=== PATIENT | male | born 1955 | race Caucasian/White ===

== ENCOUNTER → 2017-11-03 10:23 | Outpatient (CLI) | payer MEDICARE, OTHER, SELFPAY ==
[2017-11-03 11:22] LABS: Amphetamine Urine VISTA NEGATIVE (<1000 ng/mL); Barbiturate Urine VISTA NEGATIVE (< 200 ng/mL); Benzodiazepine Urine VISTA NEGATIVE (< 200 ng/mL); Cocaine Urine VISTA NEGATIVE (< 300 ng/mL); Ecstacy Urine VISTA NEGATIVE (< 500 ng/mL); Methadone Urine VISTA NEGATIVE (< 300 ng/mL); PCP Urine VISTA NEGATIVE (< 25 ng/mL); THC Urine VISTA NEGATIVE (< 50 ng/mL); Vista UDS pH Range 6
== END ==
PROVIDERS: Referring Provider Anesthesiology Pain Medicine; Visit Provider Anesthesiology Pain Medicine
DX: F11.20 Opioid dependence, uncomplicated (principal)
CPT/HCPCS: 80307

== ENCOUNTER → 2018-10-24 11:19 | Outpatient (CLI) | payer MEDICARE, OTHER, SELFPAY ==
[2018-10-24 13:32] LABS: Amphetamine Urine VISTA NEGATIVE (<1000 ng/mL); Barbiturate Urine VISTA NEGATIVE (< 200 ng/mL); Benzodiazepine Urine VISTA NEGATIVE (< 200 ng/mL); Cocaine Urine VISTA NEGATIVE (< 300 ng/mL); Ecstacy Urine VISTA NEGATIVE (< 500 ng/mL); Methadone Urine VISTA NEGATIVE (< 300 ng/mL); PCP Urine VISTA NEGATIVE (< 25 ng/mL); THC Urine VISTA NEGATIVE (< 50 ng/mL); Vista UDS pH Range 6
== END ==
PROVIDERS: Referring Provider Anesthesiology Pain Medicine; Visit Provider Anesthesiology Pain Medicine
DX: F11.20 Opioid dependence, uncomplicated (principal)
CPT/HCPCS: 80307

== ENCOUNTER → 2019-08-01 13:44 | Outpatient (CLI) | payer MEDICARE, OTHER, SELFPAY ==
[2019-08-01 14:53] LABS: Amphetamine Urine VISTA NEGATIVE (<1000 ng/mL); Barbiturate Urine VISTA NEGATIVE (< 200 ng/mL); Benzodiazepine Urine VISTA NEGATIVE (< 200 ng/mL); Cocaine Urine VISTA NEGATIVE (< 300 ng/mL); Ecstacy Urine VISTA NEGATIVE (< 500 ng/mL); Methadone Urine VISTA NEGATIVE (< 300 ng/mL); PCP Urine VISTA NEGATIVE (< 25 ng/mL); THC Urine VISTA NEGATIVE (< 50 ng/mL); Vista UDS pH Range 7
== END ==
PROVIDERS: Referring Provider Anesthesiology Pain Medicine; Visit Provider Anesthesiology Pain Medicine
DX: F11.20 Opioid dependence, uncomplicated (principal)
CPT/HCPCS: 80307

== ENCOUNTER → 2020-03-12 10:05 | Outpatient (CLI) | payer MEDICARE, OTHER, SELFPAY ==
[2020-03-12 11:44] LABS: Amphetamine Urine VISTA NEGATIVE (<1000 ng/mL); Barbiturate Urine VISTA NEGATIVE (< 200 ng/mL); Benzodiazepine Urine VISTA NEGATIVE (< 200 ng/mL); Cocaine Urine VISTA NEGATIVE (< 300 ng/mL); Ecstacy Urine VISTA NEGATIVE (< 500 ng/mL); Methadone Urine VISTA NEGATIVE (< 300 ng/mL); PCP Urine VISTA NEGATIVE (< 25 ng/mL); THC Urine VISTA NEGATIVE (< 50 ng/mL); Vista UDS pH Range 5
== END ==
PROVIDERS: Referring Provider Anesthesiology Pain Medicine; Visit Provider Anesthesiology Pain Medicine
DX: F11.20 Opioid dependence, uncomplicated (principal)
CPT/HCPCS: 80307

== ENCOUNTER → 2020-10-22 09:50 | Outpatient (CLI) | payer MEDICARE, OTHER, SELFPAY ==
[2020-10-22 11:20] LABS: Amphetamine Urine VISTA NEGATIVE (<1000 ng/mL); Barbiturate Urine VISTA NEGATIVE (< 200 ng/mL); Benzodiazepine Urine VISTA NEGATIVE (< 200 ng/mL); Cocaine Urine VISTA NEGATIVE (< 300 ng/mL); Ecstacy Urine VISTA NEGATIVE (< 500 ng/mL); Methadone Urine VISTA NEGATIVE (< 300 ng/mL); PCP Urine VISTA NEGATIVE (< 25 ng/mL); THC Urine VISTA NEGATIVE (< 50 ng/mL); Vista UDS pH Range 7
== END ==
PROVIDERS: Referring Provider Anesthesiology Pain Medicine; Visit Provider Anesthesiology Pain Medicine
DX: F11.20 Opioid dependence, uncomplicated (principal)
CPT/HCPCS: 80307

== ENCOUNTER 2021-04-08 12:23 | Outpatient (CLI) | payer MEDICARE, OTHER, SELFPAY ==
[2021-04-08 13:34] LABS: Amphetamine Urine VISTA NEGATIVE (<1000 ng/mL); Barbiturate Urine VISTA NEGATIVE (< 200 ng/mL); Benzodiazepine Urine VISTA NEGATIVE (< 200 ng/mL); Cocaine Urine VISTA NEGATIVE (< 300 ng/mL); Ecstacy Urine VISTA NEGATIVE (< 500 ng/mL); Methadone Urine VISTA NEGATIVE (< 300 ng/mL); PCP Urine VISTA NEGATIVE (< 25 ng/mL); THC Urine VISTA NEGATIVE (< 50 ng/mL); Vista UDS pH Range 6
== END 2021-04-08 23:59 | disposition home or self-care (01) ==
PROVIDERS: PCP Family Medicine; Referring Provider Anesthesiology Pain Medicine; Visit Provider Anesthesiology Pain Medicine
DX: F11.20 Opioid dependence, uncomplicated (principal)
CPT/HCPCS: 80307

== ENCOUNTER → 2022-01-13 | Outpatient (CLI) | payer MEDICARE, OTHER, SELFPAY ==
[2022-01-13 11:43] LABS: Amphetamine Urine VISTA NEGATIVE (<1000 ng/mL); Barbiturate Urine VISTA NEGATIVE (< 200 ng/mL); Benzodiazepine Urine VISTA NEGATIVE (< 200 ng/mL); Cocaine Urine VISTA NEGATIVE (< 300 ng/mL); Ecstacy Urine VISTA NEGATIVE (< 500 ng/mL); Methadone Urine VISTA NEGATIVE (< 300 ng/mL); PCP Urine VISTA NEGATIVE (< 25 ng/mL); THC Urine VISTA NEGATIVE (< 50 ng/mL); Vista UDS pH Range 7
== END | disposition home or self-care (01) ==
PROVIDERS: PCP Family Medicine; Visit Provider Anesthesiology Pain Medicine
DX: F11.20 Opioid dependence, uncomplicated (principal)
CPT/HCPCS: 80307

== ENCOUNTER → 2022-12-02 | Outpatient (CLI) | payer MEDICARE, OTHER, SELFPAY ==
[2022-12-02 11:26] LABS: Amphetamine Urine VISTA NEGATIVE (<1000 ng/mL); Barbiturate Urine VISTA NEGATIVE (< 200 ng/mL); Benzodiazepine Urine VISTA NEGATIVE (< 200 ng/mL); Cocaine Urine VISTA NEGATIVE (< 300 ng/mL); Ecstacy Urine VISTA NEGATIVE (< 500 ng/mL); Methadone Urine VISTA NEGATIVE (< 300 ng/mL); PCP Urine VISTA NEGATIVE (< 25 ng/mL); THC Urine VISTA NEGATIVE (< 50 ng/mL); Vista UDS pH Range 5
== END | disposition home or self-care (01) ==
LOC: LAB 10:07
PROVIDERS: PCP Family Medicine; Referring Provider Anesthesiology Pain Medicine; Visit Provider Anesthesiology Pain Medicine
DX: F11.20 Opioid dependence, uncomplicated (principal)
CPT/HCPCS: 80307

== ENCOUNTER → 2023-04-19 | Outpatient (CLI) | payer MEDICARE, OTHER, SELFPAY ==
[2023-04-19 10:59] LABS: Amphetamine Urine VISTA NEGATIVE (<1000 ng/mL); Barbiturate Urine VISTA NEGATIVE (< 200 ng/mL); Benzodiazepine Urine VISTA NEGATIVE (< 200 ng/mL); Cocaine Urine VISTA NEGATIVE (< 300 ng/mL); Ecstacy Urine VISTA NEGATIVE (< 500 ng/mL); Methadone Urine VISTA NEGATIVE (< 300 ng/mL); PCP Urine VISTA NEGATIVE (< 25 ng/mL); THC Urine VISTA NEGATIVE (< 50 ng/mL); Vista UDS pH Range 5
== END | disposition home or self-care (01) ==
PROVIDERS: Referring Provider Anesthesiology Pain Medicine; Visit Provider Anesthesiology Pain Medicine
DX: F11.20 Opioid dependence, uncomplicated (principal)
CPT/HCPCS: 80307

== ENCOUNTER → 2024-05-07 | Outpatient (CLI) | payer MEDICARE, OTHER, SELFPAY | END | disposition home or self-care (01) | LOC: LAB 10:03 | PROVIDERS: Referring Provider Anesthesiology Pain Medicine; Visit Provider Anesthesiology Pain Medicine | DX: F11.20 Opioid dependence, uncomplicated (principal) ==

== ENCOUNTER → 2024-10-09 | Outpatient (CLI) | payer MEDICARE, OTHER, SELFPAY | END | disposition home or self-care (01) | PROVIDERS: PCP Nurse Practitioner Family; Referring Provider Nurse Practitioner Acute Care; Visit Provider Nurse Practitioner Acute Care | DX: G47.10 Hypersomnia, unspecified (principal); G47.31 Primary central sleep apnea | CPT/HCPCS: 95810; 95811 ==

== ENCOUNTER → 2024-11-07 | Outpatient (CLI) | payer MEDICARE, OTHER, SELFPAY ==
--- NOTE | 2024-11-07 14:23 | ECHOCS_ITS ---
Reason For Study Reason For Study: DYSPNEA/SOB Procedure This was a 2D Doppler, Color Flow transthoracic echocardiogram. The study was technically difficult. Due to body habitus. Contrast injection was performed. Exam performed in department. Left Ventricle Normal LV size. Left ventricular systolic function is normal. The left ventricular ejection fraction is 65 %. Stage 2 diastolic dysfunction. No regional wall motion abnormalities noted. Right Ventricle Normal RV size. Normal systolic function. Atria The left atrium is mildly enlarged. Normal right atrium. Mitral Valve Normal mitral valve. Tricuspid Valve Normal tricuspid valve. Aortic Valve Trisinus/trileaflet aortic valve. Great Vessels Normal aortic root. The pulmonary artery is normal size. Inferior vena cava collapse with respiration. Pericardium/Pleural No pericardial effusion. Medication 22 gauge I.V. with prn adaptor inserted into right arm. Diluted definity 3.0ml given slow IV push to enhance endocardial definition. MMode/2D Measurements & Calculations LVIDd: 5.1 cm IVSd: 0.97 cm LAV(MOD- bp): 70.4 ml LVIDs: 3.3 cm LVPWd: 0.84 cm LAV(MOD- bp) Indexed: 31.3 ml/m2 FS: 35.3 % LAV(MOD- sp2): 54.3 ml LAV(MOD- sp4): 73.7 ml SV(MOD- sp4): 70.6 ml LVAd ap4: 33.3 cm2 LVAd ap2: 21.8 cm2 LVLd ap4: 8.8 cm LVLd ap2: 7.8 cm SI(MOD- sp4): 31.4 ml/m2 EDV(MOD-sp4): 106.5 ml EDV(MOD-sp2): 49.8 ml EDV(sp4-el): 107.3 ml EDV(sp2-el): 51.4 ml LVAs ap4: 18.0 cm2 LVAs ap2: 10.8 cm2 LVLs ap4: 7.4 cm LVLs ap2: 6.2 cm ESV(MOD-sp4): 35.8 ml ESV(MOD-sp2): 16.2 ml ESV(sp4-el): 37.1 ml ESV(sp2-el): 15.9 ml EF(MOD-sp4): 66.3 % EF(MOD-sp2): 67.4 % EF(sp4-el): 65.4 % SV(MOD-sp2): 33.5 ml SV(sp4-el): 70.2 ml LA A4 area: 22.2 cm2 SI(MOD-sp2): 14.9 ml/m2 LA dimension(2D): 4.6 cm RA A4 area: 13.9 cm2 Time Measurements MV dec time: 0.20 sec Doppler Measurements & Calculations MV E max toño: 78.5 cm/sec Lat Peak E' Toño: 14.3 cm/sec Med Peak E' Toño: 9.0 cm/sec MV A max toño: 57.0 cm/sec E/E' lat: 5.5 E/E' med: 8.7 MV E/A: 1.4 MV V2 max: 86.8 cm/sec MV P1/2t max toño: 83.8 cm/sec Ao V2 max: 86.7 cm/sec MV max P.0 mmHg MV P1/2t: 71.9 msec Ao max P.0 mmHg MV V2 mean: 59.2 cm/sec MV dec slope: 341.5 cm/sec2 Ao V2 mean: 58.2 cm/sec MV mean P.5 mmHg Ao mean P.5 mmHg MV V2 VTI: 21.1 cm MVA(P1/2t): 3.1 cm2 Ao V2 VTI: 13.7 cm AV (velocity ratio): 0.91 LV V1 max: 72.7 cm/sec PA V2 max: 106.6 cm/sec LV V1 max P.1 mmHg LV V1 mean P.1 mmHg LV V1 mean: 49.5 cm/sec LV V1 VTI: 12.5 cm ECHO/Echo Complete W/ Contrast Interpretation Summary Normal LV size. Left ventricular systolic function is normal. The left ventricular ejection fraction is 65 %. Stage 2 diastolic dysfunction. Contrast injection was performed. Ordering Physician: Fara Lozoya Referring Physician: Urvashi Posada Performed By: Lyn Peralta RDCS, RVT
== END | disposition home or self-care (01) ==
LOC: CVS 14:21
PROVIDERS: PCP Nurse Practitioner Family; Referring Provider Nurse Practitioner Acute Care; Visit Provider Nurse Practitioner Acute Care
DX: R06.02 Shortness of breath (principal)
CPT/HCPCS: 93306; Q9957; A4216; C8929

== ENCOUNTER → 2024-12-31 | Outpatient (CLI) | payer MEDICARE, OTHER, SELFPAY ==
[2024-12-31 09:27] LABS: Barbiturate Urine NEGATIVE (< 200 ng/mL); Benzodiazepine Urine NEGATIVE (< 200 ng/mL); PCP Urine NEGATIVE (< 25 ng/mL); THC Urine NEGATIVE (< 50 ng/mL)
== END | disposition home or self-care (01) ==
PROVIDERS: PCP Nurse Practitioner Family; Referring Provider Anesthesiology Pain Medicine; Visit Provider Anesthesiology Pain Medicine
DX: F11.20 Opioid dependence, uncomplicated (principal)
CPT/HCPCS: 80307

== ENCOUNTER → 2025-01-02 | Outpatient (CLI) | payer MEDICARE, OTHER, SELFPAY ==
--- OUTSIDE RECORDS SUMMARY | 2025-01-02 19:58 | XMS RPT_ITS | CCD ---
Author Organization [facility] [employer] Care Team Providers Care 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 Name Role Phone Chopra, Mu R Unavailable Unavailable Chopra, Mu R Unavailable Unavailable Provider, None Unavailable Unavailable Chopra, Mu R Unavailable Unavailable Chopra, Mu R Unavailable Unavailable Chopra, Mu R Unavailable Unavailable Provider, None Unavailable Unavailable Chopra, Mu R Unavailable Unavailable Chopra, Mu R Unavailable Unavailable Chopra, Mu R Unavailable Unavailable Provider, None Unavailable Unavailable Chopra, Mu R Unavailable Unavailable Chopra, Mu R Unavailable Unavailable Chopra, Mu R Unavailable Unavailable Provider, None Unavailable Unavailable Aisha Erazo Unavailable Shukri Juárez Unavailable Unavailable Shukri Juárez Unavailable Unavailable Shukri Juárez Unavailable Unavailable Shukri Juárez Unavailable Unavailable Aisha Erazo Primary Care Provider Shukri Juárez Admitting Unavailable Shukri Juárez Attending Unavailable Aisha Erazo Primary Care Unavailable Shukri Juárez Admitting Unavailable Shukri Juárez Attending Unavailable Aisha Erazo Primary Care Unavailable Chopra, Mu R Attending Unavailable Aisha Erazo Primary Care Unavailable Nav, Mu R Attending Unavailable Aisha Erazo Primary Care Unavailable Aisha Erazo Primary Care Provider [phone] MARTHA SCHWAB Attending Unavailab le AISHA ERAZO Primary Care Unavailable SHUKRI JUÁREZ Attending Unavailable AISHA ERAZO Primary Care Unavailable SHUKRI JUÁREZ Attending Unavailable AISHA ERZAO Primary Care Unavailable SHUKRI JUÁREZ Attending Unavailable AISHA ERAZO Primary Care Unavailable SHUKRI JUÁREZ Attending Unavailable AISHA ERAZO Primary Care Unavailable SHUKRI JUÁREZ Attending Unavailable AISHA ERAZO Primary Care Unavailable SHUKRI JUÁREZ Attending Unavailable AISHA ERAZO Primary Care Unavailable SHUKRI JUÁREZ Attending Unavailable AISHA ERAZO CEM Primary Care Unavailable SHUKRI JUÁREZ Attending Unavailable ERAZO, AISHA KANG Primary Care Unavailable SHUKRI JUÁREZ Attending Unavailable ERAZO, AISHA KANG Primary Care Unavailable ERAZO, AISHA KANG Primary Care Unavailable SHUKRI JUÁREZ Referring Unavailable SHUKRI JUÁREZ Attending Unavailable Aisha Newton Primary Care Provider Aisha Newton Primary Care Provider Aisha Newton Primary Care Provider Aisha Newton Primary Care Provider Markos Burgos MD Unavailable Erazopattie GARCIA Aisha Kang Primary Care Provider Brianne 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 SERVICE REPRESENTATIVE.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 MANAGER, Regina Unavailable Brianne 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 SERVICE REPRESENTATIVE.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 MANAGER, Regina Unavailable Jared VILLALOBOS, Yvette Unavailable Aisha Newton Primary Care Provider Markos Burgos MD Unavailable Dr. Shukri Juárez Primary Care Unavail able Erna, Sameep Attending Unavailable Dr. Shukri Juárez Primary Care Unavail able Erna, Sameep Attending Unavailable Dr. Shukri Juárez Primary Care Unavail able Pending, Provider Attending Unavailable Dr. Shukri Juárez Primary Care Unavail able Erna, Sameep Attending Unavailable Dr. Shukri Juárez Primary Care Unavail able Eran, Sameep Attending Unavailable Dr. Shukri Juárez Primary Care Unavail able Erna, Sameep Attending Unavailable Dr. Shukri Juárez Primary Care Unavail able Erna, Sameep Attending Unavailable Dr. Shukri Juárez Primary Care Unavail able Erna, Sameep Attending Unavailable Erna, Sameep Attending Unavailable Dr. Shukri Juárez Primary Care Unavail able Aisha Newton MD Primary Care Provider Shukri Juárez MD Primary Care Provider Franck Tushar CARMICHAEL Unavailable Aisha Newton MD Primary Care Provider Albino 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 SERVICE REPRESENTATIVE.Keshav TELLO Primary Care Provider BROWNSHUKRI Primary Care Unavailable BROWN, SHUKRI HYACINTH Primary Care Unavailable BROWN, SHUKRI HYACINTH Primary Care Unavailable BROWN, SHUKRI HYACINTH Primary Care Unavailable BROWN, SHUKRI HYACINTH Primary Care Unavailable MAY, EVAN K Admitting Unavailable MAY, EVAN K Attending Unavailable BROWN, SHUKRI HYACINTH Primary Care Unavailable BROWN, SHUKRI HYACINTH Primary Care Unavailable BROWN, SHUKRI HYACINTH Primary Care Unavailable BROWN, SHUKRI HYACINTH Primary Care Unavailable BROWN, SHUKRI HYACINTH Primary Care Unavailable BROWN, SHUKRI HYACINTH Primary Care Unavailable BROWN, SHUKRI HYACINTH Primary Care Unavailable MAY, EVAN K Admitting Unavailable MAY, EVAN K Attending Unavailable BROWN, SHUKRI HYACINTH Primary Care Unavailable CONSUELO LEAHY Attending Unavailable CONSUELO LEAHY Referring Unavailable BROWN, SHUKRI HYACINTH Primary Care Unavailable BROWN, SHUKRI HYACINTH Primary Care Unavailable BROWN, SHUKRI HYACINTH Primary Care Unavailable BROWN, SHUKRI HYACINTH Primary Care Unavailable Brianne 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 SERVICE REPRESENTATIVE.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 MANAGER, Regina E Unavailable Brianne 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 SERVICE REPRESENTATIVE.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 MANAGER, Regina E Unavailable Care Physician, No Primary Primary Care Provider Unavailable Dr. Leila Veras MD Attending Provider Dr. Leila Veras MD Referring Provider [phone] CONCHITA MARTEL Attending Unavailable CONCHITA MARTEL Admitting Unavailable KESHAV PHILLIPS Primary Care Unavailable Care Physician, No Primary Primary Care Provider Unavailable Care Physician, No Primary Referring Provider Un available Fara Page Attending Provider Brianne 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 SERVICE REPRESENTATIVE.ELISHA, Regina E Unavailable Brianne 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 SERVICE REPRESENTATIVE.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 MANAGER, Regina E Unavailable Fara Page Referring Provider Albino GIL-Keshav Wang Primary Care Provider Shukri Juárez MD Primary Care Provider Care Physician, No Primary Primary Care Unava ilable Leila Veras Attending Unavailable KaliniLeila Referring Unavailable Knoble, Keshav Primary Care Unavailable Lozoya DIALYSIS SOCIAL WORKER, Fara Attending Unavailable Lozoya DIALYSIS SOCIAL WORKER, Fara Referring Unavailable Knoble, Keshav Primary Care Unavailable Lozoya DIALYSIS SOCIAL WORKER, Fara Attending Unavailable Lozoya DIALYSIS SOCIAL WORKER, Fara Referring Unavailable Best Lauren Attending Unavailable Knoble, Keshav Primary Care Unavailable Lozoya DIALYSIS SOCIAL WORKER, Fara Attending Unavailable Care Physician, No Primary Primary Care Unava ilable Care Physician, No Primary Referring Unava ilable TIMOTHY BEST Attending Unavailable NAISR, TIMOTHY Referring Unavailable KNOBLE, KESHAV Primary Care Unavailable KNOBLE, KESHAV Attending Unavailable KNOBLE, KESHAV Primary Care Unavailable ASHLEY JIN Attending Unavailable KNOBLE, KESHAV Primary Care Unavailable TUROWSKI, OSBALDO Referring Unavailable KNOBLE, KESHAV Primary Care Unavailable ERNA, SAMEEP Referring Unavailable KNOBLE, KESHAV Primary Care Unavailable MOON TOMLINSON Attending Unavailable KNOBLE, KESHAV Primary Care Unavailable HIMANSHU OVIEDO Attending Unavailable MOON TOMLINSON Referring Unavailable KNOBLE, KESHAV Primary Care Unavailable TUROWSKI, OSBALDO Referring Unavailable KNOBLE, KESHAV Primary Care Unavailable MOON TOMLINSON Attending Unavailable KNOBLE, KESHAV Primary Care Unavailable TUROWSKI, OSBALDO Referring Unavailable KNOBLE, KESHAV Primary Care Unavailable TUROWSKI, OSBALDO Referring Unavailable KNOBLE, KESHAV Primary Care Unavailable TUROWSKI, OSBALDO Referring Unavailable KNOBLE, KESHAV Primary Care Unavailable TUROWSKI, OSBALDO Referring Unavailable KNOBLE, KESHAV Primary Care Unavailable ASHLEY JIN Attending Unavailable TUROWSKI, OSBALDO Referring Unavailable KNOBLE, KESHAV Primary Care Unavailable TURGERMAN VILLARSON Attending Unavailable TUROWSKI, OSBALDO Referring Unavailable KNOBLE, KESHAV Primary Care Unavailable CONCHITA MARTEL Attending Unavailable JOHANA BESTNIS Referring Unavailable KNOBLE, KESHAV Primary Care Unavailable TORRES KIRKPATRICK Attending Unavailable TOMLINSON, MOON Referring Unavailable KNOBLE, KESHAV Primary Care Unavailable ERNA, SAMEEP Referring Unavailable KNOBLE, KESHAV Primary Care Unavailable ERNA, SAMEEP Referring Unavailable KNOBLE, KESHAV Primary Care Unavailable KNOBLE, KESHAV Attending Unavailable KNOBLE, KESHAV Primary Care Unavailable TUROWSKI, OSBALDO Attending Unavailable TUROWSKI, OSBALDO Referring Unavailable KNOBLE, KESHAV Primary Care Unavailable TUROWSKI, OSBALDO Referring Unavailable KNOBLE, KESHAV Primary Care Unavailable TIMOTHY BEST Attending Unavailable KNOBLE, KESHAV Referring Unavailable KNOBLE, KESHAV Primary Care Unavailable ERNA, SAMEEP Referring Unavailable KNOBLE, KESHAV Primary Care Unavailable KNOBLE, KESHAV Primary Care Unavailable TAYLOR LYNCH Attending Unavailable ERAN, SAMEEP Referring Unavailable KNOBLE, KESHAV Primary Care Unavailable ERNA, SAMEEP Referring Unavailable KNOBLE, KESHAV Primary Care Unavailable KNOBLE, KESHAV Attending Unavailable KNOBLE, KESHAV Primary Care Unavailable TUROWSKI, OSBALDO Referring Unavailable KNOBLE, KESHAV Primary Care Unavailable KNOBLE, KESHAV Referring Unavailable KNOBLE, KESHAV Primary Care Unavailable TOMLINSON, MOON Referring Unavailable KNOBLE, KESHAV Primary Care Unavailable TUROWSKI, OSBALDO Referring Unavailable KNOBLE, KESHAV Primary Care Unavailable TUROWSKI, OSBALDO Referring Unavailable KNOBLE, KESHAV Primary Care Unavailable ERNA, SAMEEP Referring Unavailable KNOBLE, KESHAV Primary Care Unavailable TUROWSKI, OSBALDO Referring Unavailable KNOBLE, KESHAV Primary Care Unavailable KNOBLE, KESHAV Primary Care Unavailable TUROWSKI, OSBALDO Referring Unavailable KNOBLE, KESHAV Primary Care Unavailable TUROWSKI, OSBALDO Referring Unavailable KNOBLE, KESHAV Primary Care Unavailable TUROWSKI, OSBALDO Attending Unavailable TUROWSKI, OSBALDO Referring Unavailable KNOBLE, KESHAV Primary Care Unavailable TUROWSKI, OSBALDO Referring Unavailable KNOBLE, KESHAV Primary Care Unavailable TUROWSKI, OSBALDO Attending Unavailable TUROWSKI, OSBALDO Referring Unavailable KNOBLE, KESHAV Primary Care Unavailable TUROWSKI, OSBALDO Referring Unavailable KNOBLE, KESHAV Primary Care Unavailable KNOBLE, KESHAV Referring Unavailable KNOBLE, KESHAV Primary Care Unavailable TIMOTHY BEST Attending Unavailable TIMOTHY BEST Referring Unavailable KNOBLE, KESHAV Primary Care Unavailable TUROWSKI, OSBALDO Referring Unavailable KNOBLE, KESHAV Primary Care Unavailable ASHLEY JIN Attending Unavailable KNOBLE, KESHAV Primary Care Unavailable ERNA, SAMEEP Referring Unavailable KNOBLE, KESHAV Primary Care Unavailable Allergies Allergy Classification Reported Allergen(s) Allergy Type Date of Onset Reaction(s) Facility Penicillins (antibiotic) (4 sources) Penicillins Drug Allergy 07-11-19 13 GI [facility] (1 source) No Known Medication Allergies; Translations: [No Known Medication Allergies] Propensity to adverse reactions to drug (disorder) [facility] Repository (15 sources) sulfamethoxazole / trimethoprim; Translations: [SULFAMETHOXAZOLE-T RIMETHOPRIM] Drug Allergy 09-17-19 18 Itching [facility] (1 source) Latex; Translations: [Latex] Propensity to adverse reactions to drug (disorder) [facility] Repository (1 source) Penicillin; Translations: [penicillin] Drug Allergy [facility] (1 source) Sulfamethoxazole; Translations: [sulfamethoxazole] Drug Allergy [facility] Rep[facility] (1 source) Sulfamethoxazole / Trimethoprim; Translations: [Bactrim] Drug Allergy [facility] (1 source) Tetanus vaccine; Translations: [tetanus toxoid] Propensity to adverse reactions to drug (disorder) [facility] Rep[facility] (20 sources) Penicillins; Translations: [PENICILLINS] Drug Intolerance 07-11-19 13 GI [facility]pset [facility] (20 sources) Penicillins Drug Intolerance 07-11-19 13 GI [facility] (20 sources) Non-steroidal anti-inflammatory agent; Translations: [NSAIDS (NON-STEROIDAL ANTI-INFLAMMATORY DRUG)] Propensity to adverse reactions to drug 08-06-19 23 Contraindicati on[facility] (1 source) ALLERGIES NOT ON FILE; Translations: [ALLERGIES NOT ON FILE] Propensity to adverse reactions (disorder) [facility] Repository (20 sources) Penicillins Drug Intolerance 07-11-19 13 GI [facility]pset [facility] (14 sources) Non-steroidal anti-inflammatory agent Propensity to adverse reactions to drug 08-06-19 [facility] Nonsteroidal Anti-inflammatory Compounds Propensity to adverse reactions 09-28-19 25 Nausea [facility] (2 sources) Penicillins Propensity to adverse reactions 09-28-19 25 Nausea/Vom/Tiana rrhea [facility] (1 source) NSAIDs Drug allergy (disorder) 09-28-19 [facility] Repository (1 source) Penicillins Drug allergy (disorder) 09-28-19 [facility] Repository Medications Current Medications Medication Drug Class(es) Dates Sig (Normalized) Sig (Original) albuterol 0.83 mg/ml inhalation solution (20 sources) beta2-Adrenergic Agonist Start: 09-21-2024 take 2.5 mg by inhalation every six hours Albuterol Sulfate 2.5 mg /3 mL (0.083 %) solution for nebulization Active 2.5 mg INHALATION EVERY 6 HOURS September 21, 2024 12:00am Start: 11-23-2023 albuterol (PRO VENTIL) 2.5 mg /3 mL (0.083 %) nebulizer solution USE 1 VIAL IN NEBULIZER 4 TIMES DAILY 120 mL 5 11/23/2023 Active Start: 07-21-2023 End: 07-22-2023 albuterol 2.5 mg /3 mL (0.08 3 %) 2.5 mg (PROVENTIL) Start: 08-04-2022 End: 11-23-2023 albuterol (PROVENTIL) 2.5 mg /3 mL (0.083 %) nebulizer solution Use 3 mL via nebulizer every Tuesday,Tuesday,Tuesday. 75 mL 11 08/04/2022 11/23/2023 Discontinued Start: 07-30-2021 End: 11-18-2021 take 2 puff(s) by mouth four times daily as needed albuterol HFA (VENTOLIN HFA) 90 mcg/actuation inhaler Indications: Stage 4 very severe COPD by GOLD classification (HCC) INHALE TWO PUFFS BY MOUTH FOUR TIMES A DAY NEEDED 18 g 11 11/18/2021 Suspended Start: 12-26-2020 End: 07-30-2021 take 2 puff(s) by mouth four times daily as needed VENTOLIN HFA 90 mcg/actuation inhaler INHALE TWO PUFFS BY MOUTH FOUR TIMES A DAY NEEDED 18 g 11 12/26/2020 07/30/2021 Discontinued Start: 03-19-2019 End: 11-18-2021 albuterol (PROVENTIL) 2.5 mg /3 mL (0.083 %) nebulizer solution USE 1 VIAL IN NEBULIZER 4 TIMES DAILY 360 mL 11 11/18/2021 Suspended End: 03-19-2019 take 2.5 mg by inhalation every six hours as needed for wheezing albuterol (PROVENTIL) 2.5 mg /3 mL (0.083 %) nebulizer solution Take 2.5 mg by nebulization every 6 (six) hours as needed for wheezing. 0 03/19/2019 Discontinued take 2 puff(s) by in halation every six hours as needed for wheezing albuterol 90 mcg/actuation inhaler Inhale 2 puffs every 6 (six) hours as needed for wheezing. 0 Active take 2 puff(s) by in halation every six hours as needed for wheezing albuterol 90 mcg/actuation inhaler Inhale 2 puffs every 6 (six) hours as needed for wheezing. 0 Active albuterol 90 mcg /actuation inhaler Inhale 2 puffs every 6 (six) hours as needed for wheezing. Active Comment on above: INHALE TWO PUFFS BY MOUTH FOUR TIMES A DAY NEEDED USE 1 VIAL IN NEBULI ZER 4 TIMES DAILY Use 3 mL via nebuliz er every Tuesday,Tuesday,Tuesday. alendronic acid 70 mg oral tablet (20 sources) Bisphosphonate Start: 5 End: 5 take 1 tablet by mouth every week in the morning alendronate (FOSAMAX) 70 mg tablet Take 1 tablet by mouth one time a week. In the morning with a full glass of water, on an empty stomach. Do not take anything else by mouth or lie down for the next 30 minutes. 12 tablet 1 04/24/2024 Active alpha 1-proteinase inhibitor, human 1 mg injection (19 sources) Start: 9 alpha-1 proteinase inhib.,hum, (GLASSIA) 1 gram/50 mL (2 %) Soln Infuse 60 mg/kg into a venous catheter every 7 days . 1 each 12 09/12/2018 Active Start: 09-12-2018 End: 06-26-2021 inject 60 mg intravenously every week Proteinase Inhibitor, Human, 500 mg solr Inject 60 mg/kg/dose intravenously one time a week. 0 09/12/2018 06/26/2021 Discontinued alpha-1 proteina se inhib.,hum, (GLASSIA) 1 gram/50 mL (2 %) Soln Infuse 60 mg/kg into a venous catheter every 7 days. 0 Active alpha-1 proteina se inhib.,hum, (GLASSIA) 1 gram/50 mL (2 %) Soln Infuse 60 mg/kg into a venous catheter every 7 days. Active Comment on above: Inject 60 mg/kg/dose intravenously one time a week. amoxicillin 500 mg oral capsule (10 sources) Penicillin-class Antibacterial Start: 04-27-19 19 amoxicillin (AMOXIL) 500 MG capsule 4 tablets two hours prior to procedure . 4 capsule 0 04/26/2018 Active atorvastatin 10 mg oral tablet (20 sources) HMG-CoA Reductase Inhibitor Start: 08-05-19 End: 08-04-19 take 1 tablet by mouth once daily at bedtime atorvastatin (Lipitor) 10 mg tablet Take 1 tablet (10 mg) by mouth once daily at bedtime. 08/26/2022 Active Comment on above: Take 1 tablet by don th daily at bedtime. azithromycin 250 mg oral tablet (20 sources) Macrolide Antimicrobial Start: 02-25-19 End: 09-25-19 take 1 tablet by mouth once azithromycin (ZITHROMAX) 250 mg tablet Take 1 tablet by mouth every Tuesday, Tuesday, and Tuesday. 36 tablet 3 09/24/2024 Active Start: 09-01-2022 take 1 tablet by don th once azithromycin (ZITHROMAX) 250 mg tablet Take 1 tablet by mouth every Tuesday,Tuesday,Tuesday. 36 tablet 3 09/01/2022 Suspended Start: 08-06-2022 take 1 tablet by don th once azithromycin (ZITHROMAX) 250 mg tablet Take 1 tablet by mouth every Tuesday,Tuesday,Tuesday. 12 tablet 11 08/06/2022 Active Start: 08-06-2022 take 1 tablet by don th once azithromycin (ZITHROMAX) 250 mg tablet Take 1 tablet by mouth every Tuesday,Tuesday,Tuesday. 12 tablet 11 08/06/2022 Active Start: 05-19-2022 End: 05-26-2022 take 1 tablet by mouth once daily azithromycin (ZITHROMAX) 250 mg tablet Take 1 tablet by mouth once daily. 90 tablet 2 05/26/2022 Suspended Start: 05-29-2021 End: 11-18-2021 take 1 tablet by mouth once daily azithromycin (ZITHROMAX) 250 mg tablet Take 1 tablet by mouth once daily. 90 tablet 2 11/18/2021 Active Comment on above: Take 1 tablet by don th once daily. Take 1 tablet by don th every Tuesday,Tuesday,Tuesday. Take 1 tablet by don th every Tuesday, Tuesday, and Tuesday. cefdinir 300 mg oral capsule (1 source) Cephalosporin Antibacterial Start: End: 07-27-2 019 take 1 capsule by mouth twice daily cefdinir (OMNICEF) 300 MG capsule Take 1 (one) capsule (300 mg total) by mouth 2 (two) times a day for 10 days . 20 capsule 3 08/23/2018 09/02/2018 Active Chlorpheniramine (4 sources) Histamine-1 Receptor Antagonist take 1 tablet by mouth once daily chlorpheniramine maleate (ALLERGY, CHLORPHENIRAMINE, ORAL) Take 1 tablet by mouth once daily. Active take 1 tablet by mouth once lyudmila y chlorpheniramine maleate (ALLERGY, CHLORPHENIRAMINE, ORAL) Take 1 tablet by mouth once daily. 0 Active dupilumab (DUPIXENT PEN) 200 mg/1.14 mL injection (11 sources) Start: 07-22-2021 End: 07-27-2021 inject 1.14 mL by subcutaneous injection every other week dupilumab (DUPIXENT PEN) 200 mg/1.14 mL injection Inject 1.14 mL subcutaneously every other week. 25 mL 0 07/22/2021 07/27/2021 Discontinued Start: 07-22-2021 inject 1.14 mL by perez bcutaneous injection every other week dupilumab (DUPIXENT PEN) 200 mg/1.14 mL injection Inject 1.14 mL subcutaneously every other week. 25 mL 0 07/22/2021 Active Comment on above: Inject 1.14 mL subcu taneously every other week. gabapentin 300 mg oral capsule (20 sources) Anti-epileptic Agent take 1 capsule by mouth every eight hours gabapentin (NEURONTIN) 300 MG capsule Take 300 mg by mouth every 8 (eight) hours. 0 Active End: 11-18-2021 take 1 capsule by mouth three times daily gabapentin (NEURONTIN) 300 mg capsule Take 300 mg by mouth three times daily. 0 11/18/2021 Discontinued (Course of therapy completed) Comment on above: Take 300 mg by mouth three times daily. ketorolac tromethamine 5 mg/ml ophthalmic solution (12 sources) Nonsteroidal Anti-inflammatory Drug, Cyclooxygenase Inhibitor Start: 05-26-2023 End: 05-26-2023 1 drop, Left Eye, Every 5 min, First dose on [facility] 05/26/23 at 0800, For 4 doses, Preprocedure Start: 04-28-2023 End: 06-30-2023 take 1 drop(s) into the eye(s) four times daily keTORolac (ACULAR) 0.5 % ophthalmic solution Use 1 Drop in the left eye four times daily. 5 mL 1 05/26/2023 06/30/2023 Active Start: 04-28-2023 End: 04-28-2023 ketorolac (Acular) 0.5 % oph thalmic solution 1 drop Comment on above: Use 1 Drop in the ri ght eye four times daily. Use 1 Drop in the le ft eye four times daily. levoFLOXacin 500 mg oral tablet (2 sources) Quinolone Antimicrobial Start: 10-24-19 End: 10-31-19 take 1 tablet by mouth once daily levoFLOXacin (LEVAQUIN) 500 MG tablet Take 1 (one) tablet (500 mg total) by mouth daily CALL OFFICE IF YOU DEVELOP MUSCLE PAIN OR TENDON PAIN for 7 days . 7 tablet 2 10/24/2019 10/31/2019 Active Start: 01-22-2019 End: 01-29-2019 take 1 tablet by mouth once daily levoFLOXacin (LEVAQUIN) 500 MG tablet Take 1 (one) tablet (500 mg total) by mouth daily CALL OFFICE IF YOU DEVELOP MUSCLE PAIN OR TENDON PAIN for 7 days . 7 tablet 4 01/22/2019 01/29/2019 Active lidocaine 1%-phenylephrine 1 .5% intravitreal injection 2 mL (2 sources) Start: 05-26-2023 2 mL, intravit real, Once, On Nohemy 05/26/23 at 1445, For 1 dose, Intraprocedure, To be given intracameral Start: 04-28-2023 lidocaine 1%-p henylephrine 1.5% intravitreal injection 2 mL magnesium oxide 400 mg oral tablet (20 sources) Start: 08-05-2022 End: 08-15-2023 take 1 tablet by mouth twice daily magnesium oxide (MAG-OX) 400 mg (241.3 mg magnesium) tablet Take 1 tablet by mouth two times a day. 180 tablet 3 08/16/2023 Active Comment on above: Take 1 tablet by [facility] twice daily. moxifloxacin (Vigamox) 1.5 mg/1 mL (0.15%) injection 1.5 mg (2 sources) Start: 05-26-2023 take 1.5 mg into the eye(s) once 1.5 mg, Left Eye, Once, On Nohemy 05/26/23 at 1445, For 1 dose, Intraprocedure Start: 04-28-2023 moxifloxacin ( Vigamox) 1.5 mg/1 mL (0.15%) injection 1.5 mg mycophenolate mofetil 250 mg oral capsule (20 sources) Start: 09-21-2024 take 3 capsules by mouth twice daily Mycophenolate Mofetil (Cellcept) 250 mg capsule Active 750 mg PO TWICE A DAY September 21, 2024 12:00am Start: 07-17-2024 End: 07-17-2025 take 35-39.9 capsules by mouth twice daily in the morning mycophenolate mofetil (CELLCEPT) 250 mg capsule Indications: Aftercare following organ transplant , S/P lung transplant ([facility] , Encounter for monitoring tacrolimus therapy , Essential hypertension , Mixed hyperlipidemia , Gastroesophageal reflux disease without esophagitis , Steroid-induced osteopenia , Obesity, Class II, BMI 35-39.9 , Other chronic pain , Lung replaced by transplant ([facility]) Take 3 capsules by mouth two times a day. 180 capsule 11 09/24/2024 9:01 AM EDT 07/17/2024 07/17/2025 Active Start: 08-02-2022 End: 07-17-2024 take 3 capsules by mouth twice daily in the evening mycophenolate mofetil (CELLCEPT) 250 mg capsule Take 3 capsules by mouth twice daily. 180 capsule 11 07/03/2024 2:32 PM EDT 09/27/2023 07/17/2024 Discontinued Comment on above: Take 3 capsules by out twice daily. pantoprazole 20 mg delayed release oral tablet (20 sources) Proton Pump Inhibitor Start: End: take 1 tablet by mouth once daily in the morning pantoprazole DR (PROTONIX) 20 mg tablet Take 1 tablet by mouth daily at 6 am. 90 tablet 3 08/15/2024 08/15/2025 Active Start: 08-03-2022 End: 09-23-2022 take 1 tablet by mouth once daily, then take 6 tablets by mouth in the morning pantoprazole DR (PROTONIX) 20 mg tablet Take 1 tablet by mouth DAILY (6 AM). 20 tablet 0 09/23/2022 Suspended Comment on above: Take 1 tablet by don th DAILY (6 AM). Take 1 tablet by don th daily at 6 am. perflutren lipid microspheres 1.3 mL in NaCl (PF) 0.9% 10 mL injection (DEFINITY) (20 sources) Start: 03-03-2022 End: 06-02-2023 perflutren lipid microspheres 1.3 mL in NaCl (PF) 0.9% 10 mL injection (DEFINITY) Start: 01-14-2021 End: 04-15-2022 perflutren lipid microsphere s 1.3 mL in NaCl (PF) 0.9% 10 mL injection (DEFINITY) Start: 12-26-2020 End: 03-27-2022 perflutren lipid microsphere s 1.3 mL in NaCl (PF) 0.9% 10 mL injection (DEFINITY) phenylephrine hydrochloride 25 mg/ml ophthalmic solution (2 sources) alpha-1 Adrenergic Agonist Start: 04-11-2023 End: 04-12-2023 PHENYLephrine 2.5 % 1 Drop (AK-DILATE, CHARLIE-SYNEPHRINE) potassium phosphate 155 mg / sodium phosphate, dibasic 852 mg / sodium phosphate, monobasic 130 mg oral tablet (20 sources) Start: 09-21-2024 Sod Phos Di, M savannah-K Phos Cla[place]orne (Phosphorous) 250 mg tablet Active 1 {tbl} PO daily September 21, 2024 12:00am Start: 01-31-2024 take 1 tablet by don th once daily PHOSPHOROUS 250 mg tablet TAKE 1 TABLET BY MOUTH EVERY DAY 180 tablet 3 01/31/2024 Active Start: 09-01-2022 End: 01-31-2024 take 1 tablet by mouth twice daily phosphorus (K PHOS NEUTRAL) 250 mg tablet Take 1 tablet by mouth two times a day. 180 tablet 3 08/16/2023 01/31/2024 Discontinued Start: 08-05-2022 End: 08-25-2022 take 1 tablet by mouth twice daily phosphorus (K PHOS NEUTRAL) 250 mg tablet Take 1 tablet by mouth twice daily. 60 tablet 11 08/25/2022 Active Comment on above: Take 1 tablet by don th twice daily. prednisoLONE acetate 10 mg/ml ophthalmic suspension (20 sources) Corticosteroid Start: 05-26-19 take 1 drop(s) into the eye(s) once 1 drop, Left Eye, Once, On Nohemy 05/26/23 at 1445, For 1 dose, Intraprocedure Start: 04-28-2023 End: 11-10-2023 prednisoLONE acetate (PRED F ORTE) 1 % ophthalmic suspension Use 1 Drop in the right eye four times daily. 5 mL 2 04/28/2023 11/10/2023 Discontinued Start: 04-28-2023 prednisoLONE a cetate (Pred-Forte) 1 % ophthalmic suspension 1 drop Comment on above: Use 1 Drop in the ri ght eye four times daily. Use 1 Drop in the le ft eye four times daily. predniSONE 5 mg oral tablet (20 sources) Corticosteroid Start: 09-07-19 End: 07-18-19 take 35-39.9 tablets by mouth once daily in the morning predniSONE (DELTASONE) 5 mg tablet Indications: Aftercare following organ transplant , S/P lung transplant ([facility]) , Encounter for monitoring tacrolimus therapy , Essential hypertension , Mixed hyperlipidemia , Gastroesophageal reflux disease without esophagitis , Steroid-induced osteopenia , Obesity, Class II, BMI 35-39.9 , Other chronic pain , Lung replaced by transplant ([facility]) Take 1 tablet by mouth once daily. 30 tablet 11 09/24/2024 9:01 AM EDT 07/17/2024 Active Start: 09-01-2022 End: 09-06-2022 take 2 tablets by mouth once daily predniSONE (DELTASONE) 5 mg tablet Take 2 tablets by mouth once daily. 180 tablet 3 09/02/2022 09/06/2022 Discontinued Start: 08-13-2022 take 1 tablet by don once daily predniSONE (DELTASONE) 10 mg tablet Take 1 tablet by mouth once daily. 60 tablet 11 08/13/2022 Active Start: 08-02-2022 End: 08-13-2022 take 2 tablets by mouth once daily predniSONE (DELTASONE) 10 mg tablet Take 2 tablets by mouth once daily. 60 tablet 11 08/02/2022 08/13/2022 Discontinued (Adjust Sig - Block E-Cancel) Start: 04-13-2021 End: 07-30-2021 take 2 tablets by mouth once as needed, then take 4 tablets by mouth once daily as needed, then take 3 tablets by mouth once daily as needed, then take 2 tablets by mouth once daily as needed, then take 1 tablet by mouth once daily as needed predniSONE (DELTASONE) 10 mg tablet Take 2 tablets by mouth as needed (when he feels congested, every few weeks). Take 4 daily for three days, then 3 daily for three days, then 2 daily for three days, then one daily for three days. 30 tablet 3 07/30/2021 Suspended Start: 01-15-2019 End: 11-08-2019 predniSONE (DELTASONE) 10 MG tablet 3 TABLETS DAILY FOR 5 DAYS, 2 TABLETS DAILY FOR 5 DAYS, 1 TABLET DAILY FOR 5 DAYS. TAKE WITH FOOD . 30 tablet 4 01/22/2019 02/06/2019 Start: 08-23-2018 End: 09-07-2018 predniSONE (DELTASONE) 10 MG tablet TAKE ONE DAILY. TAKE WITH FOOD . 90 tablet 3 08/23/2018 09/07/2018 Active End: 09-29-2017 take 1 tablet by mouth once daily predniSONE (DELTASONE) 10 MG tablet Take 10 mg by mouth daily. 09/29/2017 Discontinued Comment on above: Take 2 tablets by mo [facility] as needed (when he feels congested, every few weeks). Take 4 daily for three days, then 3 daily for three days, then 2 daily for three days, then one daily for three days. Take 2 tablets by [facility] once daily. Take 1 tablet by [facility] once daily. proparacaine hydrochloride 5 mg/ml ophthalmic solution (3 sources) Local Anesthetic Start: 04-29-2023 End: 04-30-2023 proparacaine 0.5 % 1 Drop (ALCAINE) Start: 04-11-2023 End: 04-12-2023 proparacaine 0.5 % 1 Drop (A LCAINE) sertraline 100 mg oral tablet (20 sources) Serotonin Reuptake Inhibitor Start: 11-22-2023 End: 09-05-2024 take 1 tablet by mouth once daily sertraline (ZOLOFT) 100 mg tablet Indications: JODY (generalized anxiety disorder) Take 1 tablet by mouth once daily. 90 tablet 1 09/06/2024 Active Start: 09-20-2023 End: 11-22-2023 take 1 tablet by mouth once daily, then take 0.5 tablet by mouth once daily, then take 1 tablet by mouth once daily sertraline (ZOLOFT) 50 mg tablet Indications: JODY (generalized anxiety disorder) Take 1 tablet by mouth once daily. Take 1/2 tab daily for 1 week then increase to 1 tab daily. 60 tablet 11/11/2023 11/22/2023 Discontinued sildenafil 100 mg oral tablet (20 sources) Phosphodiesterase 5 Inhibitor Start: 01-03-2024 End: 09-05-2024 take 1 tablet by mouth once daily as needed sildenafil (VIAGRA) 100 mg tablet Indications: ED (erectile dysfunction) of organic origin Take 1 tablet by mouth once daily as needed. Take 30-60 minutes before sexual activity. 30 tablet 2 09/06/2024 Active Start: 11-22-2023 End: 01-03-2024 take 1 tablet by mouth once daily as needed sildenafil (VIAGRA) 50 mg tablet Indications: ED (erectile dysfunction) of organic origin Take 1 tablet by mouth once daily as needed. Take 30-60 minutes before sexual activity. 30 tablet 1 11/22/2023 01/03/2024 Discontinued sulfamethoxazole 800 mg / trimethoprim 160 mg oral tablet (20 sources) Dihydrofolate Reductase Inhibitor Antibacterial, Sulfonamide Antimicrobial Start: 09-21-2024 take 1 tablet by mouth once daily Sulfamethoxazole-Trimethoprim (Bactrim Ds) 800-160 mg tablet Active 0 PO daily September 21, 2024 12:00am 1 tab orally daily on Tuesday, Tuesday, Tuesday Start: 09-01-2022 End: 08-15-2024 take 1 tablet by mouth once sulfamethoxazole-trimethoprim (BACTRIM D S) 800-160 mg per tablet TAKE 1 TABLET BY MOUTH EVERY TUESDAY,TUESDAY,AND TUESDAY 36 tablet 3 08/15/2024 Active Start: 08-04-2022 take 1 tablet by don th once sulfamethoxazole-trimethoprim (BACTRIM D S) 800-160 mg per tablet Take 1 tablet by mouth every Tuesday,Tuesday,Tuesday. 12 tablet 11 08/04/2022 Active Comment on above: Take 1 tablet by don th every Tuesday,Tuesday,Tuesday. traMADol hydrochloride 50 mg oral tablet (20 sources) Opioid Agonist Start: take 1 tablet by mouth four times daily traMADol (Ultram) 50 mg tablet Take 1 tablet (50 mg) by mouth 4 times a day. 08/25/2022 Active Start: 08-25-2022 take 1 tablet by don th every four hours as needed for pain traMADol (ULTRAM) 50 mg tablet Indications: 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) Take 1 tablet by mouth every 4 hours as needed for pain (for pain.). 56 tablet 08/25/2022 Active take 1 tablet by don th every four hours as needed traMADol (ULTRAM) 50 mg tablet Take 50 mg by mouth every 4 hours as needed. 0 Suspended Comment on above: Take 50 mg by mouth every 4 hours as needed. Take 1 tablet by don th every 4 hours as needed for pain (for pain.). tropicamide 10 mg/ml ophthalmic solution (2 sources) Anticholinergic Start: 04-11-2023 End: 04-12-2023 tropicamide 1 % 1 Drop (MYDRIACYL) Completed/Discontinued Medications Medication Drug Class(es) Dates Sig (Normalized) Sig (Original) acetaminophen 325 mg oral tablet (20 sources) Start: 08-05-2022 End: 07-17-2024 take 2 tablets by mouth every six hours as needed acetaminophen (TYLENOL) 325 mg tablet Take 2 tablets by mouth every 6 hours as needed for pain. 240 tablet 08/06/2022 2:32 PM EDT 08/05/2022 07/17/2024 Discontinued Comment on above: Take 2 tablets by mo uth every 6 hours as needed for pain. ALPRAZolam 0.25 mg oral tablet (4 sources) Benzodiazepine Start: 02-27-2019 End: 04-19-2019 ALPRAZolam (XANAX) 0.25 MG tablet Indications: Anxiety Take one twice daily as needed for anxiety . 60 tablet 0 02/27/2019 04/19/2019 Discontinued amphotericin b liposomal 50 mg injection (20 sources) Polyene Antifungal, Lipid-based Polyene Antifungal Start: 08-04-2022 End: 08-18-2022 amphotericin B liposomal (AMBISOME) 50 mg injection Inhale 25 mg as instructed every Tuesday,Tuesday, rid. 12 Each 2 08/04/2022 08/18/2022 Discontinued Comment on above: Inhale 25 mg as inst ructed every Tuesday,Tuesday,Tuesday. budesonide 0.25 mg/ml inhalation suspension (20 sources) Corticosteroid Start: 06-01-2021 End: 11-18-2021 budesonide (PULMICORT) 0.5 mg/2 mL nebulizer solution Use 2 mL via nebulizer twice daily. 500 mL 2 11/18/2021 Suspended Start: 05-29-2021 budesonide (PU LMICORT) 0.25 mg/2 mL nebulizer solution Use 2 mL via nebulizer twice daily. 300 mL 2 05/29/2021 Active Comment on above: Use 2 mL via nebuliz er twice daily. calcium chloride 0.0014 meq/ml / potassium chloride 0.004 meq/ml / sodium chloride 0.103 meq/ml / sodium lactate 0.028 meq/ml injectable solution (4 sources) Start: 07-18-19 End: 07-19-19 take 100 mL intravenously every hour 100 mL/hr, intravenous, Continuous, Starting on 07/18/23 at 0715, Preprocedure Start: 05-26-2023 take 100 mL intraven ously every hour 100 mL/hr, intravenous, Continuous, Starting on Nohemy 05/26/23 at 0830, Preprocedure Start: 04-28-2023 lactated Ringe r's infusion camphor 0.031 mg/mg / menthol 0.06 mg/mg / methyl salicylate 0.1 mg/mg medicated patch (20 sources) Start: 08-05-2022 End: 07-21-2023 camphor-methyl salicyl-menthol (SALONPAS) 3.1-10-6 % ptmd Use as needed for back pain, joint pain, and pain around clamshell incision. Apply 12 hours on and 12 hours off 60 Patch 1 08/05/2022 07/21/2023 Discontinued Comment on above: [The details of the medication are not available because there are pending changes by a home health clinician.] Use as needed for ba ck pain, joint pain, and pain around clamshell incision. Apply 12 hours on and 12 hours off docusate sodium 50 mg / sennosides, halfway 8.6 mg oral tablet (20 sources) Start: 08-02-2022 End: 10-04-2022 take 2 tablets by mouth twice daily senna-docusate (SENNA-S) 8.6-50 mg per tablet 2 tablets by ORAL/FEEDING TUBE route twice daily. 0 08/02/2022 10/04/2022 Discontinued Start: 08-02-2022 take 2 tablets by [facility] twice daily senna-docusate (SENNA-S) 8.6-50 mg per tablet 2 tablets by ORAL/FEEDING TUBE route twice daily. 0 08/02/2022 Active Comment on above: 2 tablets by ORAL/FE EDING TUBE route twice daily. doxycycline hyclate 100 mg oral capsule (20 sources) Tetracycline-class Drug Start: take 1 capsule by mouth twice daily doxycycline hyclate (VIBRAMYCIN) 100 mg capsule Take 1 capsule by mouth twice daily. 20 capsule 3 07/30/2021 Suspended Start: 04-16-2019 take 1 capsule by [facility] twice daily doxycycline hyclate (VIBRAMYCIN) 100 MG capsule TAKE 1 (ONE) CAPSULE (100 MG TOTAL) BY MOUTH 2 (TWO) TIMES A DAY FOR 21 DAYS . 42 capsule 2 04/16/2019 Active Start: 01-22-2019 End: 02-27-2019 take 1 capsule by mouth twice daily doxycycline hyclate (VIBRAMYCIN) 100 MG capsule TAKE 1 (ONE) CAPSULE (100 MG TOTAL) BY MOUTH 2 (TWO) TIMES A DAY FOR 21 DAYS . 42 capsule 2 02/06/2019 02/27/2019 Comment on above: Take 1 capsule by [facility] twice daily. 1.14 ml dupilumab 175 mg/ml prefilled syringe (20 sources) Interleukin-4 Receptor alpha Antagonist Start: 07-27-2021 End: 02-02-2022 dupilumab 200 mg injection (DUPIXENT) Start: 07-27-2021 End: 07-27-2021 dupilumab 400 mg injection ( DUPIXENT) Start: 07-22-2021 End: 07-23-2021 dupilumab 400 mg injection ( DUPIXENT) Start: 07-15-2021 End: 07-22-2021 dupilumab 300 mg injection ( DUPIXENT) fluorometholone 1 mg/ml ophthalmic suspension (16 sources) Corticosteroid Start: 04-11-2023 End: 05-27-2023 fluorometholone (FML LIQUID FILM) 0.1 % ophthalmic suspension Use 1 Drop in the left eye three times a day. 5 mL 2 04/29/2023 05/27/2023 Discontinued (Course of therapy completed) Comment on above: Use 1 Drop in both e yes three times a day. Use 1 Drop in the le ft eye three times a day. Use 1 Drop in the ri ght eye three times a day. 30 actuat fluticasone furoate 0.1 mg/actuat / umeclidinium 0.0625 mg/actuat / vilanterol 0.025 mg/actuat dry powder inhaler (1 source) Anticholinergic, Corticosteroid, beta2-Adrenergic Agonist Start: 12-05-2017 End: 04-19-2018 fluticasone-umeclidi n-vilanter 100-62.5-25 mcg DsDv Inhale 1 Inhalation daily. 3 each 3 12/05/2017 04/19/2018 Discontinued 30 actuat fluticasone furoate 0.2 mg/actuat / vilanterol 0.025 mg/actuat dry powder inhaler (20 sources) Corticosteroid, beta2-Adrenergic Agonist Start: 12-01-2021 take 1 dose by mouth once daily BREO ELLIPTA 200-25 mcg/dose inhaler USE 1 INHALATION BY MOUTH INSTRUCTED ONCE DAILY 180 Each 3 12/01/2021 Suspended Start: 05-20-2021 End: 12-01-2021 fluticasone-vilanterol (BREO ELLIPTA) 200-25 mcg/dose inhaler Inhale 1 Inhalation as instructed once daily. 150 Each 2 11/18/2021 12/01/2021 Discontinued Start: 10-24-2019 End: 05-20-2021 fluticasone-vilanterol (BREO ELLIPTA) 100-25 mcg/dose inhaler Inhale 1 Inhalation as instructed once daily. 0 10/24/2019 05/20/2021 Discontinued fluticasone-flavio nterol 100-25 mcg/dose DsDv Inhale daily . 0 Active End: 09-29-2017 fluticasone-vilanterol (BREO ELLIPTA) 100-25 mcg/dose DsDv Inhale 1 puff daily. 09/29/2017 Discontinued fluticasone-flavio nterol (BREO ELLIPTA) 200-25 mcg/dose DsDv Inhale 1 puff daily. Active Comment on above: Inhale 1 Inhalation as instructed once daily. USE 1 INHALATION BY MOUTH INSTRUCTED ONCE DAILY furosemide 40 mg oral tablet (20 sources) Loop Diuretic Start: End: take 1 tablet by mouth once daily as needed furosemide (LASIX) 40 mg tablet Take 1 tablet by mouth once daily as needed. 30 tablet 0 04/20/2023 09/15/2023 Discontinued Start: 08-12-2022 End: 08-18-2022 take 1 tablet by mouth every other day furosemide (LASIX) 40 mg tablet Take 1 tablet by mouth every other day. 0 08/12/2022 08/18/2022 Discontinued Start: 08-05-2022 End: 08-12-2022 take 1 tablet by mouth once daily furosemide (LASIX) 40 mg tablet Take 1 tablet by mouth once daily. 30 tablet 1 08/05/2022 08/12/2022 Discontinued (Adjust Sig - Block E-Cancel) Comment on above: Take 1 tablet by don th once daily. Take 1 tablet by don th every other day. Take 1 tablet by don th once daily as needed. 3 ml sodium hyaluronate 20 mg/ml prefilled syringe (2 sources) Start: 03-02-2024 End: 03-02-2024 hyaluronate sodium, stabilized syrg 3 mL (DUROLANE) Start: 03-02-2024 End: 03-02-2024 3 mL, Injection - FOR ORTHO USE ONLY, ONCE, 1 dose, Starting on Tue03/02/24 at 1310, Until Tue03/02/24 at 1310 3 ml insulin lispro 100 unt/ml pen injector (20 sources) Insulin Analog Start: 08-03-2022 End: 04-25-2023 insulin lispro (HUMALOG KWIKPEN INSULIN) 100 unit/mL Check your blood glucose three times daily before meals and inject sliding scale insulin as listed below: Administer correction insulin regardless of meal or nutrition. If blood glucose is less than 70 mg/dL implement hypoglycemia treatment orders and notify provider. If Blood Glucose (mg/dL) is 111-150 Give 0 units 151-200 Give 2 unit 201-250 Give 4 units 251-300 Give 6 units 301-350 Give 8 units 351-400 Give 10 units >400 Give 10 units and notify physician Notify provider if 2 consecutive blood glucose values in the previous 24 hours are greater than 250 mg/mL and there have been no changes to the insulin regimen in the previous 24 hours. 15 mL 11 08/03/2022 04/25/2023 Discontinued (Discontinued by another Health Care Provider) Comment on above: Check your blood glu cose three times daily before meals and inject sliding scale insulin as listed below: Administer correction insulin regardless of meal or nutrition. If blood glucose is less than 70 mg/dL implement hypoglycemia treatment orders and notify provider. If Blood Glucose (mg/dL) is <110 Give 0 units 111-150 Give 0 units 151-200 Give 2 unit 201-250 Give 4 units 251-300 Give 6 units 301-350 Give 8 units 351-400 Give 10 units >400 Give 10 units and notify physician Notify provider if 2 consecutive blood glucose values in the previous 24 hours are greater than 250 mg/mL and there have been no changes to the insulin regimen in the previous 24 hours. isopropyl alcohol 0.7 ml/ml medicated pad (20 sources) Start: 08-03-2022 End: 10-04-2022 alcohol swabs (ALCOHOL PADS) Apply 1 Each to affected area three times daily before meals. 100 Each 11 08/03/2022 10/04/2022 Discontinued Comment on above: Apply 1 Each to affe cted area three times daily before meals. 10 ml lidocaine hydrochloride 10 mg/ml injection (20 sources) Antiarrhythmic, Amide Local Anesthetic Start: 03-30-2024 End: 03-30-2024 lidocaine (PF) 10 mg/mL (1 %) 5 mg injection (XYLOCAINE) Start: 03-30-2024 End: 03-30-2024 5 mg, Injection - FOR ORTHO USE ONLY, ONCE, 1 dose, Starting on Tue03/30/24 at 1043, Until Tue03/30/24 at 1043 Start: 03-02-2024 End: 03-02-2024 lidocaine (PF) 10 mg/mL (1 % ) 2 mL injection (XYLOCAINE) Start: 03-02-2024 End: 03-02-2024 2 mL, Injection - FOR ORTHO USE ONLY, ONCE, 1 dose, Starting on Tue03/02/24 at 1310, Until Tue03/02/24 at 1310 Start: 08-06-2022 End: 07-21-2023 lidocaine (LMX) 4 % cream [T he details of the medication are not available because there are pending changes by a home health clinician.] 30 g 0 08/06/2022 07/21/2023 Discontinued Comment on above: [The details of the medication are not available because there are pending changes by a home health clinician.] 5 ml midazolam 1 mg/ml injection (2 sources) Benzodiazepine Start: 05-26-2023 End: 05-26-2023 2 mg, intravenous, Once as needed, anxiety, Starting on Tue05/26/23 at 0810, For 1 dose, Preprocedure Start: 04-28-2023 End: 04-28-2023 midazolam (Versed) injection 1 mg montelukast 10 mg oral tablet (20 sources) Leukotriene Receptor Antagonist Start: 05-12-2022 End: 04-27-2023 take 1 tablet by mouth once daily montelukast (Singulair) 10 mg tablet Take 1 tablet (10 mg) by mouth once daily. 0 05/12/2022 04/27/2023 Discontinued (Med List Cleanup) Start: 09-28-2018 End: 02-16-2022 take 1 tablet by mouth once daily montelukast (SINGULAIR) 10 mg tablet Take 1 tablet by mouth once daily. 90 tablet 3 02/16/2022 Suspended Start: 11-24-2017 montelukast (S INGULAIR) 10 mg tablet Comment on above: TAKE ONE TABLET BY M OUTH DAILY Take 1 tablet by don th once daily. naproxen 500 mg delayed release oral tablet (18 sources) Nonsteroidal Anti-inflammatory Drug Start: 3 End: 2 take 1 tablet by mouth twice daily as needed for pain Naproxen SR 500 mg EC tablet Indications: Pain in joint, ankle and foot Take 1 tablet by mouth twice daily as needed. for pain. Take with food. 60 tablet 3 07/04/2012 07/22/2021 Discontinued (Discontinued by Patient) Comment on above: Take 1 tablet by don th twice daily as needed. for pain. Take with food. 2 ml ondansetron 2 mg/ml injection (20 sources) Serotonin-3 Receptor Antagonist Start: 4 End: 4 4 mg, intravenous, Once, On Tue07/18/23 at 0715, For 1 dose, Preprocedure, When administering via IV Push, administer over 3-5 minutes. Start: 07-18-2023 End: 07-18-2023 4 mg, intravenous, Once, On Tue07/18/23 at 0715, For 1 dose, Preprocedure, When administering via IV Push, administer over 3-5 minutes. Start: 04-28-2023 End: 04-28-2023 ondansetron (Zofran) injecti on 4 mg Start: 08-02-2022 End: 11-01-2023 take 1 tablet by mouth every eight hours as needed ondansetron (ZOFRAN) 4 mg tablet Take 1 tablet by mouth every 8 hours as needed for nausea/vomiting. 30 tablet 2 08/02/2022 11/01/2023 Discontinued Comment on above: Take 1 tablet by don every 8 hours as needed for nausea/vomiting. oseltamivir 30 mg oral capsule (20 sources) Neuraminidase Inhibitor Start: 11-10-19 End: 07-18-19 take 1 capsule by mouth twice daily oseltamivir (TAMIFLU) 30 mg capsule Take 1 capsule by mouth two times a day. Tamiflu emergency Rx. Take upon onset of influenza symptoms and get tested as soon as possible. 20 capsule 11/10/2023 07/17/2024 Discontinued Start: 01-19-2023 End: 11-09-2023 take 1 capsule by mouth twice daily oseltamivir (TAMIFLU) 75 mg capsule Take 1 capsule by mouth two times a day. Tamiflu emergency Rx. Take upon onset of influenza symptoms and get tested as soon as possible. 20 capsule 01/19/2023 11/09/2023 Discontinued Comment on above: Take 1 capsule by mo [facility] two times a day. Tamiflu emergency Rx. Take upon onset of influenza symptoms and get tested as soon as possible. oxyCODONE hydrochloride 5 mg oral tablet (20 sources) Opioid Agonist Start: 3 End: 3 take 1 tablet by mouth every six hours as needed for pain oxyCODONE IR (ROXICODONE) 5 mg immediate release tablet Indications: Postoperative pain Take 1 tablet by mouth every 6 hours as needed for pain. 28 tablet 0 08/18/2022 08/25/2022 Discontinued Start: 08-11-2022 End: 08-18-2022 take 1 tablet by mouth every eight hours as needed for pain oxyCODONE IR (ROXICODONE) 5 mg immediate release tablet Indications: Postoperative pain Take 1 tablet by mouth every 8 hours as needed for pain. 20 tablet 0 08/16/2022 08/18/2022 Discontinued Start: 08-05-2022 End: 08-12-2022 take 1 tablet by mouth every four hours as needed for pain oxyCODONE IR (ROXICODONE) 5 mg immediate release tablet Indications: Postoperative pain Take 1 tablet by mouth every 4 hours as needed for pain for up to 7 days. 28 tablet 0 08/05/2022 08/11/2022 Discontinued Comment on above: Take 1 tablet by don th every 4 hours as needed for pain for up to 7 days. Take 1 tablet by don th every 8 hours as needed for pain. Take 1 tablet by don th every 6 hours as needed for pain. Phenylephrine / Tropicamide (2 sources) Anticholinergic, alpha-1 Adrenergic Agonist Start: 05-26-2023 End: 05-26-2023 1 drop, Left Eye, Every 5 min, First dose on [facility] 05/26/23 at 0800, For 4 doses, Preprocedure Start: 04-28-2023 End: 04-28-2023 phenylephrine-tropicamide 10 %-1 % ophthalmic solution 1 drop polyethylene glycol 3350 [id number] mg powder for oral solution (20 sources) Osmotic Laxative Start: 08-02-2022 End: 10-04-2022 polyethylene glycol 3350 (MIRALAX) 17 gram packet Take 1 packet by mouth three times daily. Dissolve dose in 4 - 8 ounces of liquid and take as directed. 100 Each 08/02/2022 10/04/2022 Discontinued Start: 08-02-2022 polyethylene g lycol 3350 (MIRALAX) 17 gram packet Take 1 packet by mouth three times daily. Dissolve dose in 4 - 8 ounces of liquid and take as directed. 100 Each 08/02/2022 Active Comment on above: Take 1 packet by don th three times daily. Dissolve dose in 4 - 8 ounces of liquid and take as directed. polyvinyl alcohol 0.014 ml/ml / povidone 6 mg/ml ophthalmic solution (2 sources) Start: 05-26-2023 End: 05-26-2023 1 drop, Left Eye, Every 5 min, First dose on Nohemy 05/26/23 at 0800, For 4 doses, Preprocedure Start: 04-28-2023 End: 04-28-2023 lubricating eye drops ophtha lmic solution 1 drop posaconazole 100 mg delayed release oral tablet (1 source) Azole Antifungal Start: 07-30-2022 take 3 tablets by mouth once daily posaconazole DR (NOXAFIL) 100 mg tablet Take 3 tablets by mouth once daily. 90 tablet 11 07/30/2022 Active Comment on above: Take 3 tablets by [facility] once daily. monobasic potassium phosphate 0.0408 meq/ml oral solution (1 source) Start: 08-26-2022 End: 04-27-2023 take 1 tablet by mouth twice daily K-Phos Original 500 mg tablet Take 1 tablet (500 mg) by mouth 2 times a day. 0 08/26/2022 04/27/2023 Discontinued (Med List Cleanup) povidone-iodine 50 mg/ml ophthalmic solution (2 sources) Antiseptic Start: 05-26-2023 End: 05-26-2023 take 1 dose into the eye(s) once Left Eye, Once, On Nohemy 05/26/23 at 0800, For 1 dose, Preprocedure Start: 04-28-2023 End: 04-28-2023 povidone-iodine 5 % ophthalm ic solution roflumilast 0.5 mg oral tablet (1 source) Phosphodiesterase 4 Inhibitor End: 09-29-2017 take 1 tablet by mouth once daily roflumilast (DALIRESP) 500 mcg tablet Take 500 mcg by mouth daily. 09/29/2017 Discontinued 1000 ml sodium chloride 9 mg/ml injection (20 sources) Start: 07-21-2023 End: 07-22-2023 NaCl 0.9% iv infusion Start: 12-26-2020 End: 06-02-2023 sodium chloride 0.9 % (flush ) 10 mL (BD POSIFLUSH) tacrolimus 5 mg oral capsule (20 sources) Calcineurin Inhibitor Immunosuppressant Start: 10-16-2024 End: 10-24-2024 take 4 capsules by mouth twice daily in the evening tacrolimus IR (PROGRAF) 1 mg capsule Indications: Aftercare following organ transplant , S/P lung transplant ([facility] , Encounter for monitoring tacrolimus therapy , Essential hypertension , Mixed hyperlipidemia , Gastroesophageal reflux disease without esophagitis , Steroid-induced osteopenia , Obesity, Class II, BMI 35-39.9 , Other chronic pain , Lung replaced by transplant ([facility]) Take 4 capsules by mouth two times a day. Take with 5mg capsules. Total daily dose is 9 mg in the AM and 9 mg in the PM. 240 capsule 11 10/24/2024 Active Start: 09-21-2024 Tacrolimus (Pr ograf) 1 mg capsule Active 4 mg PO daily September 21, 2024 12:00am in the morning with 5 mg = 9 mg Start: 09-21-2024 Tacrolimus (Pr ograf) 0.5 mg capsule Active 0 PO .COMPLEX September 21, 2024 12:00am 5 mg orally in the morning (with 4mg tabs = 9mg) and 2 in the evening = 10 mg Start: 07-04-2024 End: 07-17-2025 take 2 capsules by mouth once daily in the morning tacrolimus IR (PROGRAF) 5 mg capsule Indications: Aftercare following organ transplant , S/P lung transplant ([facility]) , Encounter for monitoring tacrolimus therapy , Essential hypertension , Mixed hyperlipidemia , Gastroesophageal reflux disease without esophagitis , Steroid-induced osteopenia , Obesity, Class II, BMI 35-39.9 , Other chronic pain , Lung replaced by transplant ([facility]) Take 2 capsules by mouth every morning AND 1 capsule every evening. Take with 1mg capsules. Total daily dose is 10mg in the AM and 9mg in the PM.. 90 capsule 11 09/24/2024 9:01 AM EDT 07/17/2024 10/16/2024 Discontinued Start: 05-10-2024 End: 06-05-2024 take 3 capsules by mouth twice daily in the evening tacrolimus IR (PROGRAF) 1 mg capsule Take 3 capsules by mouth two times a day. Take with 5mg capsules. Total daily dose is 8mg in the AM and 8mg in the PM. 180 capsule 11 05/11/2024 2:50 PM EDT 05/10/2024 06/05/2024 Discontinued Start: 04-24-2024 End: 05-10-2024 take 1 capsule by mouth twice daily tacrolimus IR (PROGRAF) 1 mg capsule Take 3 capsules by mouth two times a day. 180 capsule 11 05/10/2024 05/10/2024 Discontinued Start: 12-27-2023 End: 07-17-2025 take 4 capsules by mouth once daily in the evening tacrolimus IR (PROGRAF) 1 mg capsule Indications: Aftercare following organ transplant , S/P lung transplant ([facility]) , Encounter for monitoring tacrolimus therapy , Essential hypertension , Mixed hyperlipidemia , Gastroesophageal reflux disease without esophagitis , Steroid-induced osteopenia , Obesity, Class II, BMI 35-39.9 , Other chronic pain , Lung replaced by transplant ([facility]) Take 4 capsules by mouth every evening. Take with 5mg capsules. Total daily dose is 10mg in the AM and 9mg in the PM. 120 capsule 11 09/24/2024 9:01 AM EDT 07/17/2024 10/16/2024 Discontinued Start: 07-22-2023 End: 07-31-2024 take 2 capsules by mouth once daily in the morning tacrolimus IR (PROGRAF) 1 mg capsule Take 2 capsules by mouth every morning AND 2 capsules every evening. Take with 5mg capsules 120 capsule 11 08/01/2023 08/09/2023 Discontinued Start: 05-31-2023 End: 10-03-2024 take 3 capsules by mouth once daily in the morning tacrolimus IR (PROGRAF) 1 mg capsule Take 3 capsules by mouth every morning AND 3 capsules every evening. (take with 5 mg capsules for Total dose of 8mg in the morning/8mg in the evening). 180 capsule 11 10/04/2023 12/27/2023 Discontinued Start: 05-04-2023 End: 05-31-2023 take 2 capsules by mouth twice daily in the evening tacrolimus IR (PROGRAF) 1 mg capsule Take 2 capsules by mouth two times a day. In combination with 5mg capsules 8mg in the AM and 7mg in the PM 360 capsule 3 05/04/2023 05/31/2023 Discontinued Start: 04-20-2023 End: 07-03-2025 take 1 capsule by mouth twice daily tacrolimus IR (PROGRAF) 5 mg capsule Indications: Aftercare following organ transplant , S/P lung transplant ([facility]) , Encounter for monitoring tacrolimus therapy , Essential hypertension , Mixed hyperlipidemia , Gastroesophageal reflux disease without esophagitis , Steroid-induced osteopenia , Obesity, Class II, BMI 35-39.9 , Other chronic pain , 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) Take 1 capsule by mouth two times a day. Take with [place] 4 mg BID for total dose of 9 mg BID 180 capsule 1 10/22/2024 10/24/2024 Discontinued Start: 04-20-2023 End: 04-19-2024 take 3 capsules by mouth twice daily tacrolimus IR (PROGRAF) 1 mg capsule Take 3 capsules by mouth two times a day. In combination with 5mg capsules (Total dose is 8mg twice daily) 180 capsule 11 04/20/2023 04/21/2023 Discontinued (Adjust Sig - Block E-Cancel) Start: 02-02-2023 End: 02-02-2024 take 8 mg by mouth twice daily tacrolimus IR (PROGRAF) 1 mg capsule Take 8 capsules by mouth two times a day. (Total dose is 8mg twice daily) 480 capsule 11 02/02/2023 04/20/2023 Discontinued Start: 01-14-2023 End: 01-14-2024 take 0.5 mg by mouth once daily in the evening tacrolimus IR (PROGRAF) 1 mg capsule Take 7 capsules by mouth every morning AND 6 capsules every evening. Take in addition to tacrolimus 0.5mg capsule in the evening 390 capsule 11 01/14/2023 01/14/2024 Suspended Start: 01-14-2023 End: 01-14-2024 take 2 capsules by mouth once daily in the evening tacrolimus IR (PROGRAF) 0.5 mg capsule Take 1 capsule by mouth every evening. Take with tacrolimus 1mg capsules 30 capsule 11 01/14/2023 01/14/2024 Suspended Start: 01-11-2023 End: 01-11-2024 take 1 capsule by mouth once daily in the morning tacrolimus IR (PROGRAF) 0.5 mg capsule Take 1 capsule by mouth every morning. (Total dose of 8.5mg in the AM/8mg in the PM) 30 capsule 11 08/29/2023 10/04/2023 Discontinued Start: 01-11-2023 End: 01-11-2024 take 7 capsules by mouth once daily in the morning, then take 6 capsules by mouth once daily in the evening tacrolimus IR (PROGRAF) 1 mg capsule Take 7 capsules by mouth every morning AND 6 capsules every evening. 0 01/11/2023 01/14/2023 Discontinued Start: 12-28-2022 End: 01-11-2023 take 1 capsule by mouth twice daily tacrolimus IR (PROGRAF) 0.5 mg capsule Take 1 capsule by mouth two times a day. 0 12/28/2022 01/11/2023 Discontinued Start: 11-30-2022 End: 01-11-2023 take 0.5 mg by mouth twice daily in the morning tacrolimus IR (PROGRAF) 1 mg capsule Take 6 capsules by mouth two times a day. Take in addition to Tacrolimus 0.5mg capsule in the morning 360 capsule 11 11/30/2022 01/11/2023 Discontinued Start: 11-30-2022 End: 12-28-2022 take 2 capsules by mouth once daily in the morning tacrolimus IR (PROGRAF) 0.5 mg capsule Take 1 capsule by mouth every morning. Take in addition to Tacrolimus 1mg capsules 30 capsule 11 11/30/2022 12/28/2022 Discontinued (Adjust Sig - Block E-Cancel) Start: 11-29-2022 End: 11-30-2022 take 1 capsule by mouth twice daily tacrolimus IR (PROGRAF) 1 mg capsule Take 6 capsules by mouth two times a day. 0 11/29/2022 11/30/2022 Discontinued Start: 11-29-2022 End: 11-30-2022 take 1 capsule by mouth once daily in the morning tacrolimus IR (PROGRAF) 0.5 mg capsule Take 1 capsule by mouth every morning. 90 capsule 3 11/29/2022 11/30/2022 Discontinued Start: 11-09-2022 End: 11-09-2023 take 6 capsules by mouth once daily in the morning, then take 5 capsules by mouth once daily in the evening tacrolimus IR (PROGRAF) 1 mg capsule Take 6 capsules by mouth every morning AND 5 capsules every evening. 990 capsule 3 11/09/2022 11/29/2022 Discontinued (Adjust Sig - Block E-Cancel) Start: 11-02-2022 End: 11-02-2023 tacrolimus IR (PROGRAF) 1 mg capsule In combination with 5mg capsules 8mg in the AM and 7mg in the PM 0 04/21/2023 Active Start: 09-02-2022 End: 10-26-2022 take 1 capsule by mouth once daily in the morning tacrolimus IR (PROGRAF) 0.5 mg capsule Take 1 capsule by mouth every morning. 90 capsule 3 09/02/2022 10/26/2022 Discontinued Start: 09-02-2022 End: 09-02-2022 take 2 capsules by mouth twice daily in the evening tacrolimus IR (PROGRAF) 1 mg capsule Take 2 capsules by mouth twice daily. Take with 0.5mg capsules for total daily dose 2.5mg AM and 2mg PM. 360 capsule 3 09/02/2022 09/02/2022 Discontinued Start: 09-01-2022 End: 09-02-2022 tacrolimus IR (PROGRAF) 0.5 mg capsule 2.5 mg in AM and 2 mg in PM. Take with 1mg capsules 90 capsule 3 09/02/2022 09/02/2022 Discontinued Start: 08-26-2022 End: 11-02-2022 take 1 capsule by mouth twice daily tacrolimus IR (PROGRAF) 1 mg capsule Take 3 capsules by mouth twice daily. 540 capsule 3 10/26/2022 11/02/2022 Discontinued Start: 08-26-2022 take 1 capsule by mo uth once daily in the morning tacrolimus IR (PROGRAF) 0.5 mg capsule Take 1 capsule by mouth every morning. Take with 1 mg caps for total morning dose of 2.5 mg. 90 capsule 3 08/26/2022 Active Start: 08-05-2022 take 2.5 mg by mouth in the morning tacrolimus IR (PROGRAF) 1 mg capsule Take 3 capsules by mouth in the morning and 2 capsules by mouth in the evening (take with one 0.5 mg capsule for a total evening dose of 2.5 mg) 150 capsule 11 08/05/2022 Active Start: 08-03-2022 End: 08-05-2022 take 3 capsules by mouth once daily, then take 6 capsules by mouth in the morning tacrolimus IR (PROGRAF) 1 mg capsule Take 3 capsules by mouth DAILY (6 AM). 90 capsule 11 08/03/2022 08/05/2022 Discontinued Start: 08-02-2022 End: 08-05-2022 take 1 capsule by mouth in the evening tacrolimus IR (PROGRAF) 0.5 mg capsule Take one capsule by mouth in the evening for total evening dose of 2.5 mg 60 capsule 11 08/05/2022 Active Comment on above: Take 3 capsules by m outh DAILY (6 AM). Take 5 capsules by m outh DAILY AT 6 PM. Take 3 capsules by m outh in the morning and 2 capsules by mouth in the evening (take with one 0.5 mg capsule for a total evening dose of 2.5 mg) Take one capsule by mouth in the evening for total evening dose of 2.5 mg Take 2 capsules by m outh twice daily. Take 1 capsule by mo uth every morning. Take with 1 mg caps for total morning dose of 2.5 mg. 2.5 mg in AM and 2 m g in PM 2.5 mg in AM and 2 m g in PM. Take with 1mg capsules Take 2 capsules by m outh twice daily. Take with 0.5mg capsules for total daily dose 2.5mg AM and 2mg PM. Take 1 capsule by mo uth twice daily. Take 1 capsule by mo uth every morning. Take 3 capsules by m outh twice daily. Take 5 capsules by m outh every morning AND 4 capsules every evening. Take 6 capsules by m outh every morning AND 5 capsules every evening. Take 6 capsules by m outh two times a day. Take 6 capsules by m outh two times a day. Take in addition to Tacrolimus 0.5mg capsule in the morning Take 1 capsule by mo uth every morning. Take in addition to Tacrolimus 1mg capsules Take 1 capsule by mo uth two times a day. Take 7 capsules by m outh every morning AND 6 capsules every evening. Take 1 capsule by mo uth every evening. Take 7 capsules by m outh every morning AND 6 capsules every evening. Take in addition to tacrolimus 0.5mg capsule in the evening Take 1 capsule by mo uth every evening. Take with tacrolimus 1mg capsules Take 8 capsules by m outh two times a day. (Total dose is 8mg twice daily) Take 1 capsule by mo uth two times a day. In combination with 1 mg capsules (Total dose is 8mg twice daily) Take 3 capsules by m outh two times a day. In combination with 5mg capsules (Total dose is 8mg twice daily) In combination with 5mg capsules 8mg in the AM and 7mg in the PM Take 2 capsules by m outh two times a day. In combination with 5mg capsules 8mg in the AM and 7mg in the PM tetracaine hydrochloride 5 mg/ml ophthalmic solution (2 sources) [facility] Start: 4 End: 4 take 1 drop(s) into the eye(s) once 1 drop, Left Eye, Once, On Nohemy 05/26/23 at 0800, For 1 dose, Preprocedure Start: 04-28-2023 End: 04-28-2023 tetracaine (PF) 0.5 % ophtha lmic solution 1 drop 10 actuat tiotropium 0.0025 mg/actuat inhalation spray (20 sources) Anticholinergic Start: 11-18-2021 take 2 puff(s) by inhalation once daily tiotropium bromide (SPIRIVA RESPIMAT) 2.5 mcg/actuation inhaler Inhale 2 Puffs as instructed once daily. 90 Each 2 11/18/2021 Suspended Start: 10-24-2019 End: 11-18-2021 take 2 spray(s) by inhalation once daily tiotropium bromide (SPIRIVA RESPIMAT) 2.5 mcg/actuation inhaler Inhale 2 Sprays as instructed once daily. 0 10/24/2019 11/18/2021 Discontinued Start: 12-22-2017 End: 10-24-2019 take 2 spray(s) by inhalation once daily tiotropium bromide (Spiriva Respimat) 2.5 mcg/actuation Mist Inhale 2 sprays daily . 12 g 3 10/24/2019 Active Start: 12-22-2017 take 2 spray(s) by i nhalation once daily tiotropium bromide (SPIRIVA RESPIMAT) 2.5 mcg/actuation Mist Inhale 2 sprays daily . 12 g 3 12/22/2017 Active Start: 12-22-2017 End: 10-24-2019 take 2 spray(s) by inhalation once daily tiotropium bromide (SPIRIVA RESPIMAT) 2.5 mcg/actuation Mist Inhale 2 sprays daily . 12 g 3 12/22/2017 10/24/2019 Discontinued (Reorder (Suppress CancelRx Message to Pharmacy)) take 1 capsule by in halation once daily tiotropium (SPIRIVA) [address] 18 mcg into inhaler and inhale daily. Active Comment on above: Inhale 2 Sprays as i nstructed once daily. Inhale 2 Puffs as in structed once daily. valGANciclovir 450 mg oral tablet (20 sources) Start: 08-04-19 End: 11-10-19 take 2 tablets by mouth once daily at breakfast valGANciclovir (VALCYTE) 450 mg tablet TAKE 2 TABLETS BY MOUTH EVERY DAY WITH BREAKFAST 180 tablet 3 06/29/2023 11/10/2023 Discontinued Comment on above: Take 2 tablets by mo uth daily with breakfast. voriconazole 200 mg oral tablet (20 sources) Azole Antifungal Start: 08-05-19 End: 04-27-19 take 1 tablet by mouth every twelve hours voriconazole (Vfend) 200 mg tablet Take 1 tablet (200 mg) by mouth every 12 hours. 0 09/20/2022 04/27/2023 Discontinued (Med List Cleanup) Comment on above: Take 1 tablet by don every 12 hours. Problems Active Problems Problem Classification Problem Date Documented Da te Episodic/Chronic Abdominal pain (3 sources) Indigestion; Translations: [Epigastric pain] Episodic Anxiety disorders (20 sources) Anxiety; Translations: [Generalized anxiety disorder] Onset: 3 Resolved: 3 08-03-2022 Chronic Asthma (16 sources) Uncomplicated severe persistent asthma; Translations: [Severe persistent asthma, uncomplicated] Chronic Cataract (20 sources) Senile combined form cataract of right eye; Translations: [Combined forms of age-related cataract, right eye] Onset: 4 Resolved: 4 04-11-2023 Chronic Chronic obstructive pulmonary disease and bronchiectasis (20 sources) Chronic obstructive lung disease; Translations: [Bronchiectasis] Onset: 8 Resolved: 3 09-29-2017 Chronic Disorders of lipid metabolism (20 sources) Hyperlipidemia; Translations: [Hyperlipidemia, unspecified] Onset: 3 10-04-2022 Chronic Esophageal disorders (20 sources) Gastroesophageal reflux disease without esophagitis; Translations: [Gastro-esophageal reflux disease without esophagitis] Onset: 3 10-04-2022 Chronic Esophageal disorders (2 sources) Achalasia of esophagus; Translations: [Achalasia of cardia] 11-12-2022 Episodic Essential hypertension (20 sources) Essential hypertension; Translations: [Essential (primary) hypertension] Onset: 3 10-04-2022 Chronic Heart valve disorders (1 source) Abnormal cardiac rate; Translations: [Unspecified abnormalities of heart beat] Episodic Hypertension with complications and secondary hypertension (3 sources) Chronic kidney disease due to hypertension; Translations: [Hypertensive chronic kidney disease with stage 1 through stage 4 chronic kidney disease, or unspecified chronic kidney disease] Chronic Immunizations and screening for infectious disease (20 sources) Methicillin resistant staphylococcus aureus carrier; Translations: [Carrier or suspected carrier of Methicillin resistant Staphylococcus aureus] Onset: 3 Resolved: 4 07-23-2022 Episodic Mycoses (1 source) Aspergillosis; Translations: [Aspergillosis, unspecified] 11-10-2023 Episodic Nutritional deficiencies (4 sources) Vitamin D deficiency; Translations: [Vitamin D deficiency, unspecified] Onset: 5 Chronic Occlusion or stenosis of precerebral arteries (1 source) Right carotid artery stenosis; Translations: [Occlusion and stenosis of right carotid artery] Chronic Osteoarthritis (20 sources) Osteoarthritis of right knee joint; Translations: [Unilateral primary osteoarthritis, right knee] Onset: 5 01-18-2024 Chronic Osteoporosis (1 source) Other osteoporosis without current pathological fracture; Translations: [Other osteoporosis without current pathological fracture] Onset: 5 Chronic Other aftercare (20 sources) Transplant follow-up; Translations: [Encounter for aftercare following other organ transplant] Onset: 3 10-04-2022 Chronic Other aftercare (1 source) Encounter for aftercare following other organ transplant; Translations: [Aftercare following organ transplant] Onset: 3 Chronic Other aftercare (2 sources) Device in situ; Translations: [Encounter for change or removal of drains] 08-18-2022 Episodic Other aftercare (20 sources) Long-term current use of tacrolimus; Translations: [Encounter for therapeutic drug level monitoring] Onset: 3 10-04-2022 Episodic Other aftercare (1 source) Long-term current use 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; Translations: [terminal block assembler (current) use 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] 04-24-2024 Episodic Other aftercare (3 sources) Transplant follow-up 03-18-2025 Episodic Other aftercare (3 sources) terminal block assembler (current) use of systemic steroids; Translations: [care home current use of systemic steroids] Onset: 4 Episodic Other aftercare (1 source) terminal block assembler (current) use 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; Translations: [terminal block assembler (current) use 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] Onset: 5 Episodic Other bone disease and musculoskeletal deformities (20 sources) Steroid-induced osteopenia; Translations: [Other specified disorders of bone density and structure, unspecified site] Onset: 3 10-04-2022 Episodic Other connective tissue disease (2 sources) Imaging of thorax abnormal; Translations: [Abnormal chest CT] Episodic Other gastrointestinal disorders (1 source) Diarrhea; Translations: [Diarrhea, unspecified] 10-16-2024 Episodic Other gastrointestinal disorders (1 source) Diarrhea, unspecified; Translations: [Diarrhea, unspecified type] Onset: 5 Episodic Other liver diseases (1 source) Alkaline phosphatase raised; Translations: [Abnormal levels of other serum enzymes] 04-24-2024 Episodic Other lower respiratory disease (20 sources) H/O: lung recipient; Translations: [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] Onset: 3 Chronic Comment on above: Bilateral Other lower respiratory disease (9 sources) 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; Translations: [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] Onset: 3 Chronic Other lower respiratory disease (20 sources) Dyspnea; Translations: [Shortness of breath] Episodic Other lower respiratory disease (4 sources) Wheezing; Translations: [Wheezing] Episodic Other lower respiratory disease (2 sources) Nodule of lung; Translations: [Solitary pulmonary nodule] 09-21-2024 Episodic Other lower respiratory disease (1 source) Shortness of breath; Translations: [Shortness of breath] Onset: 5 Episodic Other male genital disorders (4 sources) Secondary erectile dysfunction; Translations: [Male erectile dysfunction, unspecified] 11-22-2023 Chronic Other male genital disorders (1 source) Male erectile dysfunction, unspecified; Translations: [ED (erectile dysfunction) of organic origin] Onset: 4 Chronic Other nervous system disorders (7 sources) Chronic pain; Translations: [Other chronic pain] 10-04-2022 Chronic Other nervous system disorders (1 source) Other chronic pain; Translations: [Other chronic pain] Onset: 5 Chronic Other nutritional; endocrine; and metabolic disorders (20 sources) Obese class II; Translations: [Obesity, unspecified] Onset: 2 Resolved: 5 04-21-2021 Chronic Other nutritional; endocrine; and metabolic disorders (1 source) Body mass index 30+ - obesity; Translations: [Body mass index (BMI) 33.0-33.9, adult] Chronic Other upper respiratory infections (1 source) Acute upper respiratory infection; Translations: [Acute upper respiratory infection, unspecified] 11-10-2023 Episodic Residual codes; unclassified (6 sources) H/O: tissue/organ recipient; Translations: [Transplanted organ and tissue status, unspecified] Chronic Residual codes; unclassified (4 sources) Daytime hypersomnia; Translations: [Hypersomnia, unspecified] 09-27-2024 Chronic Residual codes; unclassified (1 source) Hypersomnia, unspecified; Translations: [Hypersomnia, unspecified] Onset: 5 Chronic Residual codes; unclassified (1 source) Genetic disorder carrier; Translations: [Genetic carrier of other disease] Episodic Residual codes; unclassified (1 source) History of immunosuppressive therapy; Translations: [Personal history of immunosupression therapy] 10-26-2022 Episodic Residual codes; unclassified (1 source) Chronic pain 07-17-2024 Episodic Residual codes; unclassified (2 sources) Pain; Translations: [Pain, unspecified] 07-19-2024 Episodic Residual codes; unclassified (1 source) Pain, unspecified; Translations: [Pain] Onset: 5 Episodic Respiratory failure; insufficiency; arrest (adult) (20 sources) Chronic hypoxemic respiratory failure; Translations: [Chronic respiratory failure with hypoxia] Onset: 2 Resolved: 3 Chronic Screening and history of mental health and substance abuse codes (2 sources) Tobacco use and exposure - finding; Translations: [Personal history of tobacco use, presenting hazards to health] Chronic Substance-related disorders (1 source) Opioid dependence, uncomplicated; Translations: [Opioid dependence, uncomplicated] Onset: 5 Chronic Unclassified (2 sources) Patient encounter status; Translations: [Screening for malignant neoplasm of respiratory organ] 07-18-2023 Unclassified (1 source) Screening status; Translations: [Special screening for malignant neoplasm of the respiratory organs] Unclassified (1 source) Injection Followup Onset: 5 Unclassified (1 source) Obesity, Class II, BMI 35-39.9; Translations: [Obesity, Class II, BMI 35-39.9] Onset: 4 Unclassified (1 source) Encounter for monitoring tacrolimus therapy; Translations: [Encounter for monitoring tacrolimus therapy] Onset: 3 Viral infection (1 source) Disease caused by 2019-nCoV; Translations: [COVID-19] 03-27-2023 Episodic Past or Other Problems Problem Classification Problem Date Documented Date Episodic/Chronic Abdominal hernia (20 sources) Umbilical hernia; Translations: [Umbilical hernia without obstruction or gangrene] Onset: 07-10-2012 Resolved: 10-04-2022 07-10-2012 Episodic Bacterial infection; unspecified site (20 sources) Pneumococcal infectious disease; Translations: [Streptococcal infection, unspecified site] Onset: 07-23-2022 Resolved: 10-04-2022 07-23-2022 Episodic Cardiac dysrhythmias (20 sources) Premature atrial contraction; Translations: [Atrial premature depolarization] Resolved: 07-22-2022 07-22-2022 Chronic Diabetes mellitus without complication (20 sources) Metabolic stress hyperglycemia; Translations: [Hyperglycemia, unspecified] Onset: 07-21-2022 Resolved: 10-04-2022 07-23-2022 Episodic E Codes: Adverse effects of medical drugs (2 sources) Adverse reaction to drug; Translations: [Adverse effect of unspecified drugs, medicaments and biological substances, initial encounter] Onset: 10-04-2022 Episodic HIV infection (20 sources) Human immunodeficiency virus infection; Translations: [Human immunodeficiency virus [HIV] disease] Onset: 10-04-2022 Resolved: 04-19-2023 10-04-2022 Chronic Immunity disorders (20 sources) Immunosuppression; Translations: [Immunodeficiency, unspecified] Onset: 07-26-2022 Resolved: 10-04-2022 07-26-2022 Chronic Inflammation; infection of eye (except that caused by tuberculosis or sexually transmitteddisease) (20 sources) Bilateral punctate keratitis of eyes; Translations: [Punctate keratitis, bilateral] Onset: 04-11-2023 Resolved: 04-17-2024 04-11-2023 Chronic Other aftercare (20 sources) Long-term current use of systemic steroid; Translations: [care home (current) use of systemic steroids] Onset: 07-26-2022 Resolved: 10-04-2022 Episodic Other aftercare (1 source) Encounter for therapeutic drug level monitoring; Translations: [Encounter for monitoring tacrolimus therapy] Onset: 10-04-2022 Episodic Other bone disease and musculoskeletal deformities (1 source) Other specified disorders of bone density and structure, unspecified site; Translations: [Steroid-induced osteopenia] Onset: 10-04-2022 Episodic Other circulatory disease (20 sources) Low blood pressure; Translations: [Hypotension, unspecified] Onset: 07-21-2022 Resolved: 10-04-2022 07-23-2022 Episodic Other eye disorders (20 sources) Meibomian gland dysfunction of bilateral eyes; Translations: [Meibomian gland dysfunction right eye, upper and lower eyelids] Onset: 04-11-2023 Resolved: 04-17-2024 04-11-2023 Episodic Other eye disorders (20 sources) H/O: R cataract extraction; Translations: [Cataract extraction status, right eye] Onset: 05-27-2023 Resolved: 04-17-2024 04-29-2023 Episodic Other eye disorders (20 sources) H/O: L cataract extraction; Translations: [Cataract extraction status, left eye] Onset: 05-27-2023 Resolved: 04-17-2024 05-27-2023 Episodic Other liver diseases (1 source) Abnormal levels of other serum enzymes; Translations: [Elevated alkaline phosphatase level] Onset: 04-24-2024 Episodic Other nervous system disorders (20 sources) Postoperative pain ; Translations: [Other acute postprocedural pain] Onset: 07-21-2022 Resolved: 10-04-2022 07-23-2022 Episodic Other nervous system disorders (20 sources) Acute postoperative pain; Translations: [Other acute postprocedural pain] Onset: 07-21-2022 Resolved: 10-04-2022 07-26-2022 Episodic Other non-traumatic joint disorders (20 sources) Arthralgia of the ankle and/or foot; Translations: [Pain in unspecified ankle and joints of unspecified foot] Onset: 04-18-2012 Resolved: 10-04-2022 04-18-2012 Episodic Other non-traumatic joint disorders (5 sources) Pain in right knee; Translations: [Pain in joint, lower leg] Onset: 01-03-2024 01-03-2024 Episodic Other nutritional; endocrine; and metabolic disorders (20 sources) Iqiui-7-jebqfmjhvod deficiency; Translations: [Rxele-2-aeehojxlwde deficiency] Onset: 09-29-2017 Resolved: 10-04-2022 09-29-2017 Chronic Other nutritional; endocrine; and metabolic disorders (20 sources) Obesity; Translations: [Obesity, unspecified] Onset: 11-30-2017 Resolved: 10-04-2022 11-30-2017 Chronic Other nutritional; endocrine; and metabolic disorders (20 sources) Obese class I; Translations: [Obesity, unspecified] Onset: 07-22-2022 Resolved: 04-17-2024 07-22-2022 Chronic Other nutritional; endocrine; and metabolic disorders (20 sources) Hypophosphatemia; Translations: [Other disorders of phosphorus metabolism] Onset: 07-23-2022 Resolved: 10-04-2022 07-23-2022 Chronic Other screening for suspected conditions (not mental disorders or infectious disease) (20 sources) Patient encounter status; Translations: [Encounter for screening for malignant neoplasm of prostate] Onset: 07-26-2022 Episodic Pleurisy; pneumothorax; pulmonary collapse (20 sources) Atelectasis; Translations: [Atelectasis] Onset: 07-23-2022 Resolved: 10-04-2022 07-23-2022 Episodic Pulmonary heart disease (20 sources) 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; Translations: [Pulmonary hypertension due to lung diseases and hypoxia] Onset: 07-11-2023 Resolved: 11-01-2023 Chronic Residual codes; unclassified (20 sources) Awaiting transplantation of lung; Translations: [Awaiting organ transplant status] Onset: 07-20-2022 Resolved: 10-04-2022 Chronic Residual codes; unclassified (20 sources) Lung transplant planned; Translations: [Awaiting organ transplant status] Onset: 07-17-2022 Resolved: 10-04-2022 07-21-2022 Chronic Screening and history of mental health and substance abuse codes (20 sources) Ex-smoker; Translations: [Personal history of nicotine dependence] Onset: 04-10-2020 Resolved: 10-04-2022 04-10-2020 Episodic Unclassified (2 sources) Long-term current use of tacrolimus 04-24-2024 Results Test Name Value Interpretation Reference Range Facility Echo Complete W/ Contraston 11-07-2024 Echo Complete W/ Contrast [facility] [address] [place] [address] Echo Complete W/ Contrast 11/07/24 1429 MR#: [id number] Acct: [id number] Name: BELGICA ANGELO Rep #: [id number] : [id number] 69 From: Best Lauren MD Attending Dr: Fara Lozoya DIALYSIS SOCIAL WORKER-C Status: RE G CLI Ordering Dr: Fara Lozoya DIALYSIS SOCIAL WORKER DIALYSIS SOCIAL WORKER-C Date: Location: [facility] Sex: M C Admitted: Reason For Study Reason For Study: DYSPNEA/SOB Procedure This was a 2D Doppler, Color Flow transthoracic echocardiogram. The study was technically difficult. Due to body habitus. Contrast injection was performed. Exam performed in department. Left Ventricle Normal LV size. Left ventricular systolic function is normal. The left ventricular ejection fraction is 65 %. Stage 2 diastolic dysfunction. No regional wall motion abnormalities noted. Right Ventricle Normal RV size. Normal systolic function. Atria The left atrium is mildly enlarged. Normal right atrium. Mitral Valve Normal mitral valve. Tricuspid Valve Normal tricuspid valve. Aortic Valve Trisinus/trileaflet aortic valve. Great Vessels Normal aortic root. The pulmonary artery is normal size. Inferior vena cava collapse with respiration. Pericardium/Pleural No pericardial effusion. Medication 22 gauge I.V. with prn adaptor inserted into right arm. Diluted definity 3.0ml given slow IV push to enhance endocardial definition. MMode/2D Measurements Calculations LVIDd: 5.1 cm IVSd: 0.97 cm LAV(MOD-bp): 70.4 ml LVIDs: 3.3 cm LVPWd: 0.84 cm LAV(MOD-bp) Indexed: 31.3 ml/m2 FS: 35.3 % LAV(MOD-sp2): 54.3 ml LAV(MOD-sp4): 73.7 ml SV(MOD-sp4): 70.6 ml LVAd ap4: 33.3 cm2 LVAd ap2: 21.8 cm2 LVLd ap4: 8.8 cm LVLd ap2: 7.8 cm SI(MOD-sp4): 31.4 ml/m2 EDV(MOD-sp4): 106.5 ml EDV(MOD-sp2): 49.8 ml EDV(sp4-el): 107.3 ml EDV(sp2-el): 51.4 ml LVAs ap4: 18.0 cm2 LVAs ap2: 10.8 cm2 LVLs ap4: 7.4 cm LVLs ap2: 6.2 cm ESV(MOD-sp4): 35.8 ml ESV(MOD-sp2): 16.2 ml ESV(sp4-el): 37.1 ml ESV(sp2-el): 15.9 ml EF(MOD-sp4): 66.3 % EF(MOD-sp2): 67.4 % EF(sp4-el): 65.4 % SV(MOD-sp2): 33.5 ml SV(sp4-el): 70.2 ml LA A4 area: 22.2 cm2 SI(MOD-sp2): 14.9 ml/m2 LA dimension(2D): 4.6 cm RA A4 area: 13.9 cm2 Time Measurements MV dec time: 0.20 sec Doppler Measurements Calculations MV E max darrel: 78.5 cm/sec Lat Peak E' Darrel: 14.3 cm/sec Med Peak E' Darrel: 9.0 cm/sec MV A max darrel: 57.0 cm/sec E/E' lat: 5.5 E/E' med: 8.7 MV E/A: 1.4 MV V2 max: 86.8 cm/sec MV P1/2t max darrel: 83.8 cm/sec Ao V2 max: 86.7 cm/sec MV max P.0 mmHg MV P1/2t: 71.9 msec Ao max P.0 mmHg MV V2 mean: 59.2 cm/sec MV dec slope: 341.5 cm/sec2 Ao V2 mean: 58.2 cm/sec MV mean P.5 mmHg Ao mean P.5 mmHg MV V2 VTI: 21.1 cm MVA(P1/2t): 3.1 cm2 Ao V2 VTI: 13.7 cm AV (velocity ratio): 0.91 LV V1 max: 72.7 cm/sec PA V2 max: 106.6 cm/sec LV V1 max P.1 mmHg LV V1 mean P.1 mmHg LV V1 mean: 49.5 cm/sec LV V1 VTI: 12.5 cm ECHO/Echo Complete W/ Contrast Interpretation Summary Normal LV size. Left ventricular systolic function is normal. The left ventricular ejection fraction is 65 %. Stage 2 diastolic dysfunction. Contrast injection was performed. Ordering Physician: Fara Lozoya Referring Physician: Keshav Phillips Performed By: Lyn Peralta, GAYLE, RVT 11/07/241953 Date Best Lauren MD CC: ANAI Lozoya; ANAI Phillips Date Dictated: 11/07/24 1429 Date Transcribed: 11/07/241953 Hydropress Operator: Signed Normal [facility] Pulmonary Visit Reporton Pulmonary Visit Report [facility] Pulmonary Medicine of [address] [place] [address] OFFICE VISIT Date of Service: 09/27/24 MR#: [id number] Acct: [id number] Name: BELGICA ANGELO Rep #: [id number] : 1955 Provider: ANAI Lozoya Age/Sex: 68/M [place] [facility] [place] Status: Signed Assessment and Plan Assessment and Plan (1) Daytime hypersomnia: Status: Acute Plan: Suspicious for obstructive sleep apnea. Lengthy discussion about the pathophysiology of obstructive sleep apnea. We discussed the risks of untreated sleep apnea as well as the benefits. He is agreeable to start PAP therapy if his sleep test is positive. Initial goal will be to wear PAP at least 4 hours nightly. Ultimately, it should be worn any time spent sleeping. I have encouraged the patient to call the office with any difficulties acclimating to PAP therapy. Follow up in the office in 3 months, at which time I anticipate the patient will be on PAP therapy for 4-6 weeks. (2) S/P lung transplant: Status: Chronic Comment: Bilateral Plan: This complicates exam, plan, care and prognosis. [facility] is managing this. The patient is currently seeing them every 3 months for testing. (3) Asthma: Status: Chronic Qualifiers: Asthma severity: mild Asthma persistence: intermittent Asthma complication type: uncomplicated Qualified Code(s): J45.20 - Mild intermittent asthma, uncomplicated Plan: Self-reported. Pulmonary problems being managed by [facility] at this point. We will assume management if the patient reports that [facility] has signed off. (4) Obesity: Status: Chronic Qualifiers: Obesity type: due to excess calories Obesity classification: adult class 2 (BMI 35 - 39.9) Serious obesity comorbidity presence: with serious comorbidity Body mass index: BMI 35.0-35.9 Qualified Code(s): E66.812 - Obesity, class 2; E66.01 - Morbid (severe) obesity due to excess calories; Z68.35 - Body mass index [BMI] 35.0-35.9, adult Plan: We discussed the relationship between obesity and obstructive sleep apnea. Encourage healthy weight loss. Orders: Orders Polysomnography Today G47.10 - Hypersomnia, unspecified Plan Details Additional Comments: This note was generated with Butter dictation software. It may contain incorrect words, spelling, and punctuation that were not noted in checking the note before signing. Thank you for the referral and the opportunity to participate in this patient's care. Follow Up: 3 Months HPI Sleep apnea Chief Complaint: Daytime hypersomnia HPI Comments Details: This patient presents to the office today for initial consultation regarding concern for obstructive sleep apnea. He is ambulatory and currently on room air. 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 The patient does have a smoking history, quitting back in 2009. He has been referred to our practice to be evaluated for the presence of obstructive sleep apnea. He is known to snore. He has awaking to himself from sleep gasping. He wakes up every 2 hours to pee. He naps daily. He reports that he gets up and after taking his morning medications he takes a nap. He frequently experiences dry mouth while sleeping, in fact keeps a bottle of water at the bedside. He denies any difficulty with morning headaches. He is not feeling rested when he wakes up in the morning. He is retired. He worked for the [employer] in [employer]. Past medical family history is significant for: Mother has alpha 1 antitrypsin deficiency. Father has good health. Sister had breast cancer. He has 2 brothers and 2 other sisters who have good health. He has 1 son, who is positive for alpha 1 antitrypsin deficiency. He denies any shortness of breath. He denies any cough, sputum production or hemoptysis. He denies any wheezing, chest tightness, chest pain or palpitations. He has not had any fever, chills or body aches. STOP-BANG Assessment: 1. Do you snore? YES 2. Are you frequently tired during the day? YES 3. Have you been observed gasping or choking while asleep? NO 4. Do you have high blood pressure? NO 5. BMI - greater than 35kg/m2? YES 6. Age - over 50 years old? YES 7. Neck Circumference - greater than 37 cm for females or 40 cm for males? YES 48 cm 8. Gender - male? YES Total STOP-BANG score = 6 which indicates HIGH risk for obstructive sleep apnea (yes to 3 or more questions = high risk of sleep apnea). Intake Vital Signs 09/27/24 09:07 Height 5 ft 10 in Weight: 250 lb BMI 35.9 BP 123/69 H Blood Pressure Location Lt brachial Position Sitting Respiration 32 H Pulse 91 Pulse Source Monitor Temp 97.5 F L Temperature Source (more content not included)... Normal [facility] XR Knee - right 4 Viewson IMPRESSION: Severe right knee osteoarthritis as detailed. Hydropress Operator: AKIN Transcribe Date/Time: Sep 25 2024 10:35A Dictated by : SRINI KANG MD This examination was interpreted and the report reviewed and electronically signed by: MARIA DEL CARMEN RICE MD on Sep 25 2024 12:24PM EST DIVISION OF RADIOLOGY * * *Final Report* * * DATE OF EXAM: Sep 25 2024 10:17AM TWX [id number] - XR KNEE 4V AP/PA BOTH+LAT/LEONARDO RT / PROCEDURE REASON: Primary osteoarthritis of right knee * * * * Physician Interpretation * * * * EXAMINATION / TECHNIQUE: XR KNEE 4V AP/PA BOTH+LAT/LEONARDO RT PATIENT/TECHNOLOGIST PROVIDED HISTORY: rt knee pain CLINICAL INFORMATION ( PROVIDED BY ORDERING CLINICIAN) : Primary osteoarthritis of right knee COMPARISON: 01/03/2024 RESULT: No acute fracture or dislocation. Severe osteoarthritis with [id number]-ym-cwbv articulation in the medial compartments and small tract femoral osteophytes. No joint effusion. Limited views of the contralateral left knee with degenerative changes, but without acute osseous abnormality. DIVISION OF RADIOLOGY Provider, [facility] - 09/25/2024 * * *Final Report* * * DATE OF EXAM: Sep 25 2024 10:17AM TWX [id number] - XR KNEE 4V AP/PA BOTH+LAT/LEONARDO RT / PROCEDURE REASON: Primary osteoarthritis of right knee * * * * Physician Interpretation * * * * EXAMINATION / TECHNIQUE: XR KNEE 4V AP/PA BOTH+LAT/LEONARDO RT PATIENT/TECHNOLOGIST PROVIDED HISTORY: rt knee pain CLINICAL INFORMATION ( PROVIDED BY ORDERING CLINICIAN) : Primary osteoarthritis of right knee COMPARISON: 01/03/2024 RESULT: No acute fracture or dislocation. Severe osteoarthritis with gjok-il-ogdc articulation in the medial compartments and small tract femoral osteophytes. No joint effusion. Limited views of the contralateral left knee with degenerative changes, but without acute osseous abnormality. IMPRESSION IMPRESSION: Severe right knee osteoarthritis as detailed. Hydropress Operator: PSCB Transcribe Date/Time: Sep 25 2024 10:35A Dictated by : SRINI KANG MD This examination was interpreted and the report reviewed and electronically signed by: MARIA DEL CARMEN RICE MD on Sep 25 2024 12:24PM EST [facility] Radiology Study observation (narrative) [facility] XR Knee - right 4 ViewsOrder ed By: Ccf Provider on 09-25-2024 [facility] CBC W Auto Differential pane l (Bld)on 09-11-2024 Basophils (Bld) [#/Vol] 0.04 10*3/uL [facility] Basophils/100 WBC (Bld) 0.5 % [facility] Differential cell count method Nom (Bld) Auto [facility] Eosinophils (Bld) [#/Vol] [facility] Eosinophils/100 WBC (Bld) 0 % [facility] Erythrocyte distribution width (RBC) [Ratio] 14.7 % 11.5 - 15.0 % [facility] Hematocrit (Bld) [Volume fraction] 33.5 % Low 39.0 - 51.0 % [facility] Hemoglobin (Bld) [Mass/Vol] 10.5 g/dL Low 13.0 - 17.0 g/dL [facility] Immature granulocytes (Bld) [#/Vol] 0.09 10*3/uL [facility] Immature granulocytes/100 WBC (Bld) 1.1 % [facility] Interpretation and review of laboratory results Abnormal [facility] Lymphocytes (Bld) [#/Vol] 1.31 10*3/uL [facility] Lymphocytes/100 WBC (Bld) 16.2 % [facility] MCH (RBC) [Entitic mass] 27 pg 26.0 - 34.0 pg [facility] MCHC (RBC) [Mass/Vol] 31.3 g/dL 30.5 - 36.0 g/dL [facility] MCV (RBC) [Entitic vol] 86.1 fL 80.0 - 100.0 fL [facility] Monocytes (Bld) [#/Vol] 0.64 10*3/uL [facility] Monocytes/100 WBC (Bld) 7.9 % [facility] Neutrophils (Bld) [#/Vol] 6 10*3/uL [facility] Neutrophils/100 WBC (Bld) 74.3 % [facility] Nucleated RBC (Bld) [#/Vol] [facility] Nucleated RBC/100 WBC (Bld) [Ratio] 0 % /100 WBC [facility] Platelet mean volume (Bld) [Entitic vol] 10.1 fL 9.0 - 12.7 fL [facility] Platelets (Bld) [#/Vol] 276 10*3/uL [facility] RBC (Bld) [#/Vol] 3.89 10*6/uL Low 4.20 - 6.00 m/uL [facility] WBC (Bld) [#/Vol] 8.08 10*3/uL [facility] Comprehensive metabolic 2000 panelOrdered By: Lucila Worrell on 09-11-2024 Albumin [Mass/Vol] 4.5 g/dL 3.9 - 4.9 g/dL [facility] ALP [Catalytic activity/Vol] 132 U/L High 38 - 113 U/L [facility] ALT [Catalytic activity/Vol] 16 U/L 10 - 54 U/L [facility] Anion gap [Moles/Vol] 14 mmol/L 8 - 15 mmol/L [facility] AST [Catalytic activity/Vol] 20 U/L 14 - 40 U/L [facility] Bilirubin [Mass/Vol] 0.8 mg/dL 0.2 - 1.3 mg/dL [facility] Calcium [Mass/Vol] 9.8 mg/dL 8.5 - 10. 2 mg/dL [facility] Chloride [Moles/Vol] 103 mmol/L 98 - 107 mmol/L [facility] CO2 [Moles/Vol] 21 mmol/L Low 22 - 30 mmol/L [facility] Creatinine [Mass/Vol] 2.58 mg/dL High 0.73 - 1.22 mg/dL [facility] GFR/1.73 sq M.predicted among non-blacks MDRD (S/P/Bld) [Vol rate/Area] 26 mL/min/{1.73_m2} Low - PINF [facility] Comment on above: Estimated Glomerular Filtration Rate (eGFR) is calculated using the 2020 CKD-EPI creatinine equation. This equation utilizes serum creatinine, sex, and age as parameters. The creatinine assay has traceable calibration to isotope dilution-mass spectrometry. Refer to KDIGO guidelines for clinical interpretation. In patients with unstable renal function, e.g. those with acute kidney injury, the eGFR may not accurately reflect actual GFR. Glucose [Mass/Vol] 110 mg/dL High 74 - 99 mg/dL [facility] Comment on above: The [place] Diabete s Association (ADA) provides guidance for cutoff values for fasting glucose and random glucose. The ADA defines fasting as no caloric intake for at least 8 hours. Fasting plasma glucose results between 100 to 125 mg/dL indicate increased risk for diabetes (prediabetes). Fasting plasma glucose results greater than or equal to 126 mg/dL meet the criteria for diagnosis of diabetes. In the absence of unequivocal hyperglycemia, results should be confirmed by repeat testing. In a patient with classic symptoms of hyperglycemia or hyperglycemic crisis, random plasma glucose results greater than or equal to 200 mg/dL meet the criteria for diagnosis of diabetes. Reference: Standards of Medical Care in Diabetes 2016, [place] Diabetes Association. Diabetes Care. 2016.39(Suppl 1). Interpretation and review of laboratory results Abnormal [facility] Potassium [Moles/Vol] 4.6 mmol/L 3.7 - 5.1 mmol/L [facility] Protein [Mass/Vol] 6.8 g/dL 6.3 - 8.0 g/dL [facility] Sodium [Moles/Vol] 138 mmol/L 136 - 144 mmol/L [facility] Urea nitrogen [Mass/Vol] 46 mg/dL High 9 - 24 mg/dL [facility] ALLOGEN POST-TX DSA RPTon [employer] [address] [place] [address]) CLIA ID# [id number] Director: Dr. David Scanlon, PhD, F([facility]) Order Date: 07/17/2024 Physician of Record: Ajay Jeffrey Reported Date: 07/17/2024 3:25:11 PM Test Name: Post-Tx DSA Monitoring Patient Name: BELGICA ANGELO Report Status: Final ANTIBODY SUMMARY: Serum date: 07/17/2024 Class I specificities: none Comments: No Class I DSA Class II specificities: DRB1*14:04, DQA1*02:01 Comments: No Class II DSA COMMENTS: No Donor specific HLA antibody was detected in the 07/17/2024 Post-Tx sample. FINAL REVIEW BY: [place] / Dave Finn 07/17/2024 Patient Samples: Sample Date SpecimenTypeCd Status Code Comments 07/17/2024 WB Active ABBREVIATIONS: DSA = donor specific antibody MFI = mean fluorescence intensity NT = not requested, not tested, not needed -Antibody testing performed using Luminex and/or Flow Beads. -HLA antibody results are reported based upon the antibody assay kit defined panel specificities. -Weak antibody designated for results of >= 1000 and < 4000 MFI. -Strong antibody designated for results of >= 4000 MFI for HLA-A, B, DR, DQ and >= 12,000 MFI for HLA-C, DP and/or C1q positive. -Bw4/6 may be assigned by association. This test was developed and its performance characteristics determined by [email or web address]. The test has not been cleared or approved by the [place] FDA. However, FDA approval was not necessary since this lab is certified under CLIA for high complexity testing. This note was electronically signed by Dave Finn on 07/17/2024 at 15:25 OTHER LAB [facility] CBC W Auto Differential pane l (Bld)on 07-17-2024 Basophils (Bld) [#/Vol] 0.05 10*3/uL [facility] Basophils/100 WBC (Bld) 0.6 % [facility] Differential cell count method Nom (Bld) Auto [facility] Eosinophils (Bld) [#/Vol] [facility] Eosinophils/100 WBC (Bld) 0 % [facility] Erythrocyte distribution width (RBC) [Ratio] 14.2 % 11.5 - 15.0 % [facility] Hematocrit (Bld) [Volume fraction] 37 % Low 39.0 - 51.0 % [facility] Hemoglobin (Bld) [Mass/Vol] 11.2 g/dL Low 13.0 - 17.0 g/dL [facility] Immature granulocytes (Bld) [#/Vol] 0.11 10*3/uL High [facility] Immature granulocytes/100 WBC (Bld) 1.3 % [facility] Interpretation and review of laboratory results Abnormal [facility] Lymphocytes (Bld) [#/Vol] 1.66 10*3/uL [facility] Lymphocytes/100 WBC (Bld) 19.3 % [facility] MCH (RBC) [Entitic mass] 26.5 pg 26.0 - 34.0 pg [facility] MCHC (RBC) [Mass/Vol] 30.3 g/dL Low 30.5 - 36.0 g/dL [facility] MCV (RBC) [Entitic vol] 87.7 fL 80.0 - 100.0 fL [facility] Monocytes (Bld) [#/Vol] 0.73 10*3/uL [facility] Monocytes/100 WBC (Bld) 8.5 % [facility] Neutrophils (Bld) [#/Vol] 6.04 10*3/uL [facility] Neutrophils/100 WBC (Bld) 70.3 % [facility] Nucleated RBC (Bld) [#/Vol] [facility] Nucleated RBC/100 WBC (Bld) [Ratio] 0 % /100 WBC [facility] Platelet mean volume (Bld) [Entitic vol] 10.4 fL 9.0 - 12.7 fL [facility] Platelets (Bld) [#/Vol] 284 10*3/uL [facility] RBC (Bld) [#/Vol] 4.22 10*6/uL 4.20 - 6.00 m/uL [facility] WBC (Bld) [#/Vol] 8.59 10*3/uL [facility] Comprehensive metabolic 2000 panelon 07-17-2024 Albumin [Mass/Vol] 4.5 g/dL 3.9 - 4.9 g/dL [facility] ALP [Catalytic activity/Vol] 131 U/L High 38 - 113 U/L [facility] ALT [Catalytic activity/Vol] 19 U/L 10 - 54 U/L [facility] Anion gap [Moles/Vol] 13 mmol/L 8 - 15 mmol/L [facility] AST [Catalytic activity/Vol] 27 U/L 14 - 40 U/L [facility] Bilirubin [Mass/Vol] 0.5 mg/dL 0.2 - 1.3 mg/dL [facility] Calcium [Mass/Vol] 9.4 mg/dL 8.5 - 10. 2 mg/dL [facility] Chloride [Moles/Vol] 104 mmol/L 98 - 107 mmol/L [facility] CO2 [Moles/Vol] 22 mmol/L 22 - 30 mmol/L [facility] [facility] Creatinine [Mass/Vol] 1.85 mg/dL High 0.73 - 1.22 mg/dL [facility] GFR/1.73 sq M.predicted among non-blacks MDRD (S/P/Bld) [Vol rate/Area] 39 mL/min/{1.73_m2} Low - PINF [facility] Comment on above: Estimated Glomerular Filtration Rate (eGFR) is calculated using the 2020 CKD-EPI creatinine equation. This equation utilizes serum creatinine, sex, and age as parameters. The creatinine assay has traceable calibration to isotope dilution-mass spectrometry. Refer to KDIGO guidelines for clinical interpretation. In patients with unstable renal function, e.g. those with acute kidney injury, the eGFR may not accurately reflect actual GFR. Glucose [Mass/Vol] 95 mg/dL 74 - 99 mg/dL [facility] Comment on above: The [place] Diabete s Association (ADA) provides guidance for cutoff values for fasting glucose and random glucose. The ADA defines fasting as no caloric intake for at least 8 hours. Fasting plasma glucose results between 100 to 125 mg/dL indicate increased risk for diabetes (prediabetes). Fasting plasma glucose results greater than or equal to 126 mg/dL meet the criteria for diagnosis of diabetes. In the absence of unequivocal hyperglycemia, results should be confirmed by repeat testing. In a patient with classic symptoms of hyperglycemia or hyperglycemic crisis, random plasma glucose results greater than or equal to 200 mg/dL meet the criteria for diagnosis of diabetes. Reference: Standards of Medical Care in Diabetes 2016, [place] Diabetes Association. Diabetes Care. 2016.39(Suppl 1). Interpretation and review of laboratory results Abnormal [facility] Potassium [Moles/Vol] 4.6 mmol/L 3.7 - 5.1 mmol/L [facility] Protein [Mass/Vol] 7 g/dL 6.3 - 8.0 g/dL [facility] Sodium [Moles/Vol] 139 mmol/L 136 - 144 mmol/L [facility] Urea nitrogen [Mass/Vol] 31 mg/dL High 9 - 24 mg/dL [facility] XR Chest PA and Lateralon IMPRESSION: No acute disease identified in the lungs or mediastinum. Little interval change since 04/24/2024. Hy[facility] Transcribe Date/Time: Jul 17 2024 11:59A Dictated by : DIONNE POWELL MD This examination was interpreted and the report reviewed and electronically signed by: DIONNE POWELL MD on Jul 17 2024 12:00PM [facility] DIVISION OF RADIOLOGY * * *Final Report* * * DATE OF EXAM: Jul 17 2024 7:20AM AOX 5291 - XR CHEST 2V FRONTAL/LAT / PROCEDURE REASON: multiple diagnoses * * * * Physician Interpretation * * * * EXAMINATION: CHEST RADIOGRAPH (2 VIEW FRONTAL & LATERAL) CLINICAL HISTORY: Aftercare following organ transplant S/P lung transplant (HCC) MQ: XC2_6 EXAM DATE/TIME: 07/17/2024 7:20 AM COMPARISON: PA and lateral CXR 04/24/2024 RESULT: Lines, tubes, and devices: None. Lungs and pleura: Status post wedge resections involving both lung allografts. The lungs are clear of consolidation. No pleural effusion or pneumothorax is identified. Cardiomediastinal silhouette: Stable cardiomediastinal silhouette. Status post transverse sternotomy and bilateral lung transplant. The heart size and pulmonary vascular pattern are within normal limits. Bones and soft tissues: The vertebral body heights appear symmetric and well-maintained. DIVISION OF RADIOLOGY Provider, Brea Pinon - 07/17/2024 * * *Final Report* * * DATE OF EXAM: Jul 17 2024 7:20AM AOX 5291 - XR CHEST 2V FRONTAL/LAT / PROCEDURE REASON: multiple diagnoses * * * * Physician Interpretation * * * * EXAMINATION: CHEST RADIOGRAPH (2 VIEW FRONTAL & LATERAL) CLINICAL HISTORY: Aftercare following organ transplant S/P lung transplant (HCC) MQ: XC2_6 EXAM DATE/TIME: 07/17/2024 7:20 AM COMPARISON: PA and lateral CXR 04/24/2024 RESULT: Lines, tubes, and devices: None. Lungs and pleura: Status post wedge resections involving both lung allografts. The lungs are clear of consolidation. No pleural effusion or pneumothorax is identified. Cardiomediastinal silhouette: Stable cardiomediastinal silhouette. Status post transverse sternotomy and bilateral lung transplant. The heart size and pulmonary vascular pattern are within normal limits. Bones and soft tissues: The vertebral body heights appear symmetric and well-maintained. IMPRESSION IMPRESSION: No acute disease identified in the lungs or mediastinum. Little interval change since 04/24/2024. Hydropress Operator: AKIN Transcribe Date/Time: Jul 17 2024 11:59A Dictated by : DIONNE POWELL MD This examination was interpreted and the report reviewed and electronically signed by: DIONNE POWELL MD on Jul 17 2024 12:00PM EST [facility] Radiology Study observation (narrative) [facility] XR Chest PA and LateralOrder ed By: [facility] Provider on 07-17-2024 [facility] HISTORY PHYSICALon HISTORY PHYSICAL HNO ID: [id number] Author: CONCHITA MARTEL MD Service: Pain Management Author Type: Physician Type: H&P Filed: 05/17/2024 11:09 Note Text: HISTORY AND PHYSICAL EXAMINATION PATIENT NAME: Belgica Angelo DATE of SERVICE: 05/17/2024 Belgica Angelo is here for the pain mangement procedure. The patients presents with persistent pain complaints. Belgica Angelo denies any interval changes or new pain complaints or focal neurologic deficits. PAST MEDICAL HISTORY Diagnosis Date Asthma Bronchiectasis (HCC) COPD (chronic obstructive pulmonary disease) ([facility]) Dependence on supplemental oxygen No longer neede post transplant Heterozygous alpha 1-antitrypsin deficiency (HCC) PiMZ Lung nodule Pain in joint, ankle and foot S/P lung transplant ([facility]) PAST SURGICAL HISTORY Procedure Laterality Date LUNG TRANSPLANT,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 PAST SURGICAL HISTORY OF 02/07/2011 Rt foot reconstruction REMV CATARACT EXTRACAP,INSERT LENS REMV CATARACT EXTRACAP,INSERT LENS Right 04/28/2023 SN60WF +20.0 D RPR UMBILICAL HRNA 5 YRS/> REDUCIBLE 07/26/2012 Hernia repair, umbilical >5yr Social History Tobacco Use Smoking status: Former Current packs/day: 0.00 Average packs/day: 4.0 packs/day for 30.0 years (120.0 ttl pk-yrs) Types: Cigarettes Start date: 1980 Quit date: 2010 Years since quittin.2 Smokeless tobacco: Never Vaping Use Vaping status: Never Used Substance Use Topics Alcohol use: Never Drug use: Never FAMILY HISTORY Problem Relation Age of Onset COPD Mother Heart disease Father Breast Cancer Sister No Known Problems Sister No Known Problems Sister COPD Brother COPD Brother Tuberculosis No Family History ALLERGIES Allergen Reactions Nsaids (Non-Steroid* Contraindication-Medical Surgical Patient states he is not allergic to Nsaids- caused upset stomach Penicillins GI Upset Patient states he is not allergic to penicillin- caused upset stomach Current Facility-Administered Medications Medication Dose Route Frequency NaCl 0.9% iv infusion 30 mL/hr INTRAVENOUS CONTINUOUS Physical Exam: Performed in conjunction with observation. The patient is alert and oriented x3. The patient is in no acute distress. Neck: Supple. The range of motion is intact. Lungs: clear CVR: RRR. Extremities: no reported edema or erythema. Examination indicates no changes Impression: Chronic right knee pain Plan: The informed consent has been obtained. The plan is to proceed with the procedure as planned. SIGNATURE: Conchita Martel MD DATE: May 17, 2024 TIME: 11:09 AM [facility] OPERATIVE NOon 05-17-2024 OPERATIVE NO HNO ID: [id number] Author: CONCHITA MARTEL MD Service: Pain Management Author Type: Physician Type: Operative Report Filed: 05/17/2024 11:30 Note Text: PATIENT NAME: Belgica Angelo SERVICE DATE: 05/17/2024 PROCEDURE NOTE PREOPERATIVE DIAGNOSIS(ES) Osteoarthritis of the Right knee. Chronic right knee pain POSTOPERATIVE DIAGNOSIS(ES): Same OPERATION: Right knee genicular nerve block under fluoroscopy. Merchandise Planner(s): None, I performed the entire procedure. ANESTHESIA: Local INDICATIONS: Belgica Angelo presents for a diagnostic and therapeutic genicular nerve block. Since the last visit, the patient denies any new pain complaints and denies any focal neurological deficits. The plan is to proceed with right genicular nerve block. The risks and benefits discussed in the office were reviewed. The patient expressed understanding the risks and benefits and informed consent was obtained. OPERATIVE PROCEDURE: The patient was brought to the operating room. The patient was placed in the supine position with pressure points protected. Continuous hemodynamic monitoring was initiated including blood pressure, EKG, and pulse oximetry. The right knee area was prepped in sterile fashion. Upon AP projection under fluoroscopy, landmarks and needle entry points were identified. Entry point was marked and anesthetized with 0.5% Lidocaine at lateral and medial epicondyle of the distal femur and medial epicondyle of the tibia proximally. This was followed by insertion of a 22g spinal quincke needle, which was inserted and advanced towards the target points.. Once the Needle were placed in satisfactory positions confirmd by AP and Lateral projections of the flouroscopy, aspiration was performed which was negative for blood. This was followed by injection of Omnipaque 300, which revealed a spread along the soft tissue in the vicinity of the nerves. There was no evidence of intravascular flow. This was then followed by a total injection of 6 mL of 0.25% Marcaine with 40mg of Kenalog mixture. A 2 ml volume was injected at each needle sites. The patient tolerated the procedure well. The needles were removed intact. Dry dressing was placed over the injection sites. The patient was taken to the recovery room in stable condition. EBL: nil Start time: 11:16 AM End time: 11:22 AM I was present during the entire time and personally performed the procedure. SIGNATURE: Conchita Martel MD DATE: May 17, 2024 TIME: 11:29 AM [facility] [id number] 05-09-2024 [facility]. COMMENT Normal . [facility] Comment on above: Order Comment: [id number] TRAMADOL Result Comment: Test Ordered: [id number] Tramadol, Urine Tramadol Screen, Urine Note: ng/mL UI See Final Results Reference Range: Swfomk=442 Tramadol Positive [A ] UI Reference Range: Flcmem=412 Tramadol Conf, MS, UR >66132 ng/mL UI Reference Range: Crfewj=507 Tramadol detected; this finding can be consistent with use of medications that include Ultram, Topalgic, Tradol, Zydol, or generic formulations. Drugs listed are customer engagement representative of common sources of the compound detected and are not intended to include all possible sources. Please Note: Comment UI Reference Range: . Drug test results should be interpreted in the context of clinical information. Patient metabolic variables, specific drug chemistry, and specimen characteristics can affect test outcome. Technical consultation is available if a test result is inconsistent with an expected outcome. Email: [email or web address] Performed at: [address] [id number] [employer] Plant Grinder: Victorina Livingston PhD, Phone: [phone] Performed at: [address] [id number] [employer] Plant Grinder: Logan Peters PhD, Phone: [phone] Performed By: #### L 3410.9998 #### [facility] [address] [place] [address], [address] ALLOGEN POST-TX DSA RPTon [employer] [address] [place] [address] ([facility]) CLIA ID# [id number] Director: Dr. David Scanlon, PhD, F([facility]) Order Date: 04/24/2024 Physician of Record: Maryuri Ajay Reported Date: 04/24/2024 3:44:56 PM Test Name: Post-Tx DSA Monitoring Patient Name: BELGICA ANGELO Report Status: Final ANTIBODY SUMMARY: Serum date: 04/24/2024 Class I specificities: none Comments: No Class I DSA Class II specificities: DRB1*14:04, DQA1*02:01 Comments: No Class II DSA COMMENTS: No Donor specific HLA antibody was detected in the 04/24/2024 Post-Tx sample. FINAL REVIEW BY: [place] / Dave Finn 04/24/2024 Patient Samples: Sample Date SpecimenTypeCd Status Code Comments 04/24/2024 WB Active ABBREVIATIONS: DSA = donor specific antibody MFI = mean fluorescence intensity NT = not requested, not tested, not needed -Antibody testing performed using Luminex and/or Flow Beads. -HLA antibody results are reported based upon the antibody assay kit defined panel specificities. -Weak antibody designated for results of >= 1000 and < 4000 MFI. -Strong antibody designated for results of >= 4000 MFI for HLA-A, B, DR, DQ and >= 12,000 MFI for HLA-C, DP and/or C1q positive. -Bw4/6 may be assigned by association. This test was developed and its performance characteristics determined by [employer]. The test has not been cleared or approved by the [place] FDA. However, FDA approval was not necessary since this lab is certified under CLIA for high complexity testing. This note was electronically signed by Dave Finn on 04/24/2024 at 15:44 OTHER LAB [facility] XR Chest PA and Lateralon IMPRESSION: Bilateral lung transplant without acute radiographic abnormality Hydropress Operator: AKIN Transcribe Date/Time: Apr 24 2024 2:45P Dictated by : MIRANDA RIOS MD This examination was interpreted and the report reviewed and electronically signed by: KP MCNULTY MD on Apr 24 2024 3:24PM [facility] DIVISION OF RADIOLOGY * * *Final Report* * * DATE OF EXAM: Apr 24 2024 7:26AM AOX 5291 - XR CHEST 2V FRONTAL/LAT / PROCEDURE REASON: multiple diagnoses * * * * Physician Interpretation * * * * EXAMINATION: CHEST RADIOGRAPH (2 VIEW FRONTAL & LATERAL) CLINICAL HISTORY: Aftercare following organ transplant S/P lung transplant (HCC) MQ: XC2_6 EXAM DATE/TIME: 04/24/2024 7:26 AM COMPARISON: Chest radiograph 01/19/2024, 11/10/2023, CT chest 11/10/2023 RESULT: Lines, tubes, and devices: None. Lungs and pleura: Bilateral lung transplant with persistent elevation of the posterior left hemidiaphragm and blunting of the bilateral costophrenic angles representing trace effusions versus scarring. Minimal basilar linear atelectatic opacities. No pneumothorax. Cardiomediastinal silhouette: Stable cardiomediastinal silhouette Bones and soft tissues: Unremarkable. DIVISION OF RADIOLOGY Provider, [facility] Madeleine dowd [place] - 04/24/2024 * * *Final Report* * * DATE OF EXAM: Apr 24 2024 7:26AM AOX 5291 - XR CHEST 2V FRONTAL/LAT / PROCEDURE REASON: multiple diagnoses * * * * Physician Interpretation * * * * EXAMINATION: CHEST RADIOGRAPH (2 VIEW FRONTAL & LATERAL) CLINICAL HISTORY: Aftercare following organ transplant S/P lung transplant (HCC) MQ: XC2_6 EXAM DATE/TIME: 04/24/2024 7:26 AM COMPARISON: Chest radiograph 01/19/2024, 11/10/2023, CT chest 11/10/2023 RESULT: Lines, tubes, and devices: None. Lungs and pleura: Bilateral lung transplant with persistent elevation of the posterior left hemidiaphragm and blunting of the bilateral costophrenic angles representing trace effusions versus scarring. Minimal basilar linear atelectatic opacities. No pneumothorax. Cardiomediastinal silhouette: Stable cardiomediastinal silhouette Bones and soft tissues: Unremarkable. IMPRESSION IMPRESSION: Bilateral lung transplant without acute radiographic abnormality Hydropress Operator: [facility] Transcribe Date/Time: Apr 24 2024 2:45P Dictated by : MIRANDA RIOS MD This examination was interpreted and the report reviewed and electronically signed by: KP MCNULTY MD on Apr 24 2024 3:24PM EST [facility] Radiology Study observation (narrative) [facility] XR Chest PA and LateralOrder ed By: [facility] Provider on 04-24-2024 [facility] Nerve Block: lower extremity on 03-30-2024 Timothy Best V, DO 03/30/2024 10:51 AM Nerve Block: lower extremity 03/30/2024 10:43 AM Body area: lower extremity (knee) Laterality: right Patient position: sitting Location technique: anatomical landmarks Medications: 5 mg lidocaine (PF) 10 mg/mL (1 %) Informed Consent Consent Obtained: Verbal Williamson Protocol A moment to CARE was completed. SIGN IN TIME OUT No relevant labs, photos, and/or imaging studies were applicable for review. Intended patient and procedure match the source document(s). Consent documented and matches the intended procedure. Correct side/site marked and visible. No medications required for procedure. No fire risk assessment and interventions applicable. No implant(s) inserted. SIGN OUT No specimen collected. No instruments, equipment or retained foreign bodies applicable. [facility] Large Joint Arthro/Inj: R kn ee jointon 03-02-2024 Timothy Best V, DO 03/02/2024 1:11 PM Large Joint Arthro/Inj: R knee joint Informed Consent Consent Obtained: Verbal Williamson Protocol SIGN IN TIME OUT 03/02/2024 1:10 PM The procedure site was prepped in the usual sterile fashion. Site: R knee joint Medications: 3 mL hyaluronate sodium, stabilized 60 mg/3 mL Anesthetics: 2 mL lidocaine (PF) 10 mg/mL (1 %) Outcome: Tolerated well, no immediate complications Post-injection instructions were reviewed with the patient and the patient voiced understanding of these instructions. 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 RISK FACTORS FOR OSTEOPOROSIS AND ASSOCIATED FRACTURES REPORTED BY THIS PATIENT: Please refer to Bone Health Questionnaire in the EMR CURRENT THERAPY: Please refer to Bone Health Questionnaire in the EMR TECHNICAL LIMITATIONS: Degenerative disease of the spine RESULTS: Lumbar Spine (L1, L2, L3, L4): Total BMD: 1.440, T-score: 1.8, Z-score: 1.6 Lumbar spine: 2022: 1.436 g/cm2 No statistically significant change Right Femoral Neck: 0.866 g/cm2, T-score -1.6, Z-score -0.9 Right Femoral Neck: 2022: 0.871 g/cm2 No statistically significant change Right Total Hip: 0.891 g/cm2 , T-score -1.5, Z-score -1.3 Right Total Hip: 2022: 0.885 g/cm2 No statistically significant change Left Femoral Neck: 0.867 g/cm2, T-score -1.6, Z-score -0.9 Left Femoral Neck: 2022: 0.890 g/cm2 No statistically significant change Left Total Hip: 0.925 g/cm2, T-score -1.2, Z-score -1.1 Left Total Hip: 2022: 0.933 g/cm2 No statistically significant change CHANGE IS STATISTICALLY SIGNIFICANT IN THE SPINE OR HIP IF GREATER THAN OR EQUAL TO 0.04 g/cm2 VERTEBRAL FRACTURE ASSESSMENT Indication for VFA: organ transplant Levels visualized: T5-L5 Results: No fracture identified Presence of a single vertebral fracture increases subsequent global fracture risk, multiple fractures significantly increase fracture risk. TRABECULAR BONE ASSESSMENT TBS score: 1.455 Bone micro-architecture: normal (> 1.310) DIVISION OF RADIOLOGY Provider, [facility] - 01/19/2024 * * *Final Report* * * DATE OF EXAM: Jan 19 2024 8:24AM MCB 0801 - BD DXA TRABECLR BONE SCORE (TBS) / PROCEDURE REASON: multiple diagnoses * * * * Physician Interpretation * * * * EXAMINATION: DXA BONE DENSITOMETRY BD DXA TRABECLR BONE SCORE (TBS), BD VFA WITH DXA - AXIAL SKELETON PATIENT DEMOGRAPHICS: Age: 68 years, Gender: Male SCANNER INFORMATION: DXA Model: [employer] (S/N: [id number]) Date Scanned: 01/19/2024 8:24 AM CLINICAL HISTORY: DIAGNOSTIC 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 RISK FACTORS FOR OSTEOPOROSIS AND ASSOCIATED FRACTURES REPORTED BY THIS PATIENT: Please refer to Bone Health Questionnaire in the EMR CURRENT THERAPY: Please refer to Bone Health Questionnaire in the EMR TECHNICAL LIMITATIONS: Degenerative disease of the spine RESULTS: Lumbar Spine (L1, L2, L3, L4): Total BMD: 1.440, T-score: 1.8, Z-score: 1.6 Lumbar spine: 2022: 1.436 g/cm2 No statistically significant change Right Femoral Neck: 0.866 g/cm2, T-score -1.6, Z-score -0.9 Right Femoral Neck: 2022: 0.871 g/cm2 No statistically significant change Right Total Hip: 0.891 g/cm2 , T-score -1.5, Z-score -1.3 Right Total Hip: 2022: 0.885 g/cm2 No statistically significant change Left Femoral Neck: 0.867 g/cm2, T-score -1.6, Z-score -0.9 Left Femoral Neck: 2022: 0.890 g/cm2 No statistically significant change Left Total Hip: 0.925 g/cm2, T-score -1.2, Z-score -1.1 Left Total Hip: 2022: 0.933 g/cm2 No statistically significant change CHANGE IS STATISTICALLY SIGNIFICANT IN THE SPINE OR HIP IF GREATER THAN OR EQUAL TO 0.04 g/cm2 VERTEBRAL FRACTURE ASSESSMENT Indication for VFA: organ transplant Levels visualized: T5-L5 Results: No fracture identified Presence of a single vertebral fracture increases subsequent global fracture risk, multiple fractures significantly increase fracture risk. TRABECULAR BONE ASSESSMENT TBS score: 1.455 Bone micro-architecture: normal (> 1.310) IMPRESSION IMPRESSION: THE LOWEST T-SCORE IS -1.6 IN THE RIGHT AND LEFT HIPS 1) DIAGNOSIS (based on BMD alone): OSTEOPENIA Caution: Medical conditions other than osteoporosis may cause low bone density, such as osteomalacia or renal osteodystrophy. Clinical correlation is necessary. 2) FRACTURE RISK (Based on TBS adjusted FRAX): 10-year absolute fracture risk: - major osteoporotic fracture =7.6 % - hip fracture = 1.3 % - A diagnosis of Osteoporosis, a 10 year probability of hip fracture greater than or equal to 3% or a 10 year probability of any major osteoporosis-related fracture greater than or equal to 20% should be considered for treatment. - DXA scanner generated FRAX calculations may slightly differ from online FRAX calculations due to differences in software versions. - All recommendations and calculations are to be considered as guidelines and should not replace sound clinical judgement - Caution: Fracture risk may be increased independent of BMD in patients with corticosteroid use, age greater than 65 years, or a history of prior fragility fracture. RECOMMENDATIONS: Follow-up in 2 years or as clinically indicated. Patients that are taking corticosteroids, are transplant recipients or have hyperparathyroidism should have annual follow-up. Follow-up scans should always be done on the same machine for accurate comparison. FOR MORE INFORMATION ABOUT DIAGNOSIS AND TREATMENT: [facility] [place] [facility] Osteoporosis and Metabolic Bone Disease:? www.ccf.org/arthritis/osteo National Osteoporosis Foundation:? www.nof.org International Society of Clinical Densitometry www.iscd.org Hydropress Operator: [id number] Transcribe Date/Time: Jan 19 2024 9:29A Dictated by : BULMARO CHANDRA MD This examination was interpreted and the report reviewed and electronically signed by: BULMARO CHANDRA MD on Jan 19 2024 10:25AM [facility] DXA Skeletal system.axial Vi ews for bone density and vertebral fractureon 01-19-2024 * * *Final Report* * * DATE OF EXAM: Jan 19 2024 8:24AM MCB 0802 - BD VFA WITH DXA - AXIAL SKELETON / PROCEDURE REASON: multiple diagnoses * * * * Physician Interpretation * * * * EXAMINATION: DXA BONE DENSITOMETRY BD DXA TRABECLR BONE SCORE (TBS), BD VFA WITH DXA - AXIAL SKELETON PATIENT DEMOGRAPHICS: Age: 68 years, Gender: Male SCANNER INFORMATION: DXA Model: A[employer] (S/N: [id number]) Date Scanned: 01/19/2024 8:24 AM CLINICAL HISTORY: DIAGNOSTIC 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 RISK FACTORS FOR OSTEOPOROSIS AND ASSOCIATED FRACTURES REPORTED BY THIS PATIENT: Please refer to Bone Health Questionnaire in the EMR CURRENT THERAPY: Please refer to Bone Health Questionnaire in the EMR TECHNICAL LIMITATIONS: Degenerative disease of the spine RESULTS: Lumbar Spine (L1, L2, L3, L4): Total BMD: 1.440, T-score: 1.8, Z-score: 1.6 Lumbar spine: 2022: 1.436 g/cm2 No statistically significant change Right Femoral Neck: 0.866 g/cm2, T-score -1.6, Z-score -0.9 Right Femoral Neck: 2022: 0.871 g/cm2 No statistically significant change Right Total Hip: 0.891 g/cm2 , T-score -1.5, Z-score -1.3 Right Total Hip: 2022: 0.885 g/cm2 No statistically significant change Left Femoral Neck: 0.867 g/cm2, T-score -1.6, Z-score -0.9 Left Femoral Neck: 2022: 0.890 g/cm2 No statistically significant change Left Total Hip: 0.925 g/cm2, T-score -1.2, Z-score -1.1 Left Total Hip: 2022: 0.933 g/cm2 No statistically significant change CHANGE IS STATISTICALLY SIGNIFICANT IN THE SPINE OR HIP IF GREATER THAN OR EQUAL TO 0.04 g/cm2 VERTEBRAL FRACTURE ASSESSMENT Indication for VFA: organ transplant Levels visualized: T5-L5 Results: No fracture identified Presence of a single vertebral fracture increases subsequent global fracture risk, multiple fractures significantly increase fracture risk. TRABECULAR BONE ASSESSMENT TBS score: 1.455 Bone micro-architecture: normal (> 1.310) DIVISION OF RADIOLOGY Provider, [facility] - 01/19/2024 * * *Final Report* * * DATE OF EXAM: Jan 19 2024 8:24AM MCB 0802 - BD VFA WITH DXA - AXIAL SKELETON / PROCEDURE REASON: multiple diagnoses * * * * Physician Interpretation * * * * EXAMINATION: DXA BONE DENSITOMETRY BD DXA TRABECLR BONE SCORE (TBS), BD VFA WITH DXA - AXIAL SKELETON PATIENT DEMOGRAPHICS: Age: 68 years, Gender: Male SCANNER INFORMATION: DXA Model: A21 [employer] (S/N: [id number]) Date Scanned: 01/19/2024 8:24 AM CLINICAL HISTORY: DIAGNOSTIC 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 RISK FACTORS FOR OSTEOPOROSIS AND ASSOCIATED FRACTURES REPORTED BY THIS PATIENT: Please refer to Bone Health Questionnaire in the EMR CURRENT THERAPY: Please refer to Bone Health Questionnaire in the EMR TECHNICAL LIMITATIONS: Degenerative disease of the spine RESULTS: Lumbar Spine (L1, L2, L3, L4): Total BMD: 1.440, T-score: 1.8, Z-score: 1.6 Lumbar spine: 2022: 1.436 g/cm2 No statistically significant change Right Femoral Neck: 0.866 g/cm2, T-score -1.6, Z-score -0.9 Right Femoral Neck: 2022: 0.871 g/cm2 No statistically significant change Right Total Hip: 0.891 g/cm2 , T-score -1.5, Z-score -1.3 Right Total Hip: 2022: 0.885 g/cm2 No statistically significant change Left Femoral Neck: 0.867 g/cm2, T-score -1.6, Z-score -0.9 Left Femoral Neck: 2022: 0.890 g/cm2 No statistically significant change Left Total Hip: 0.925 g/cm2, T-score -1.2, Z-score -1.1 Left Total Hip: 2022: 0.933 g/cm2 No statistically significant change CHANGE IS STATISTICALLY SIGNIFICANT IN THE SPINE OR HIP IF GREATER THAN OR EQUAL TO 0.04 g/cm2 VERTEBRAL FRACTURE ASSESSMENT Indication for VFA: organ transplant Levels visualized: T5-L5 Results: No fracture identified Presence of a single vertebral fracture increases subsequent global fracture risk, multiple fractures significantly increase fracture risk. TRABECULAR BONE ASSESSMENT TBS score: 1.455 Bone micro-architecture: normal (> 1.310) IMPRESSION IMPRESSION: THE LOWEST T-SCORE IS -1.6 IN THE RIGHT AND LEFT HIPS 1) DIAGNOSIS (based on BMD alone): OSTEOPENIA Caution: Medical conditions other than osteoporosis may cause low bone density, such as osteomalacia or renal osteodystrophy. Clinical correlation is necessary. 2) FRACTURE RISK (Based on TBS adjusted FRAX): 10-year absolute fracture risk: - major osteoporotic fracture =7.6 % - hip fracture = 1.3 % - A diagnosis of Osteoporosis, a 10 year probability of hip fracture greater than or equal to 3% or a 10 year probability of any major osteoporosis-related fracture greater than or equal to 20% should be considered for treatment. - DXA scanner generated FRAX calculations may slightly differ from online FRAX calculations due to differences in software versions. - All recommendations and calculations are to be considered as guidelines and should not replace sound clinical judgement - Caution: Fracture risk may be increased independent of BMD in patients with corticosteroid use, age greater than 65 years, or a history of prior fragility fracture. RECOMMENDATIONS: Follow-up in 2 years or as clinically indicated. Patients that are taking corticosteroids, are transplant recipients or have hyperparathyroidism should have annual follow-up. Follow-up scans should always be done on the same machine for accurate comparison. FOR MORE INFORMATION ABOUT DIAGNOSIS AND TREATMENT: [facility] [place] [facility] for Osteoporosis and Metabolic Bone Disease:? www.ccf.org/arthritis/osteo National Osteoporosis Foundation:? www.nof.org International Society of Clinical Densitometry www.iscd.org Hydropress Operator: [id number] Transcribe Date/Time: Jan 19 2024 9:29A Dictated by : BULMARO CHANDRA MD This examination was interpreted and the report reviewed and electronically signed by: BULMARO CHANDRA MD on Jan 19 2024 10:25AM EST [facility] No Panel InformationOrdered By: Ccf Provider on 01-19-2024 LOWEST T-SCORE -1.6 [facility] No Panel Informationon 01-18 IMPRESSION: THE LOWEST T-SCORE IS -1.6 IN THE RIGHT AND LEFT HIPS 1) DIAGNOSIS (based on BMD alone): OSTEOPENIA Caution: Medical conditions other than osteoporosis may cause low bone density, such as osteomalacia or renal osteodystrophy. Clinical correlation is necessary. 2) FRACTURE RISK (Based on TBS adjusted FRAX): 10-year absolute fracture risk: - major osteoporotic fracture =7.6 % - hip fracture = 1.3 % - A diagnosis of Osteoporosis, a 10 year probability of hip fracture greater than or equal to 3% or a 10 year probability of any major osteoporosis-related fracture greater than or equal to 20% should be considered for treatment. - DXA scanner generated FRAX calculations may slightly differ from online FRAX calculations due to differences in software versions. - All recommendations and calculations are to be considered as guidelines and should not replace sound clinical judgement - Caution: Fracture risk may be increased independent of BMD in patients with corticosteroid use, age greater than 65 years, or a history of prior fragility fracture. RECOMMENDATIONS: Follow-up in 2 years or as clinically indicated. Patients that are taking corticosteroids, are transplant recipients or have hyperparathyroidism should have annual follow-up. Follow-up scans should always be done on the same machine for accurate comparison. FOR MORE INFORMATION ABOUT DIAGNOSIS AND TREATMENT: [facility] for Osteoporosis and Metabolic Bone Disease:? www.ccf.org/arthritis/osteo National Osteoporosis Foundation:? www.nof.org International Society of Clinical Densitometry www.iscd.org Hydropress Operator: [id number] Transcribe Date/Time: Jan 19 2024 9:29A Dictated by : BULMARO CHANDRA MD This examination was interpreted and the report reviewed and electronically signed by: BULMARO CHANRDA MD on Jan 19 2024 10:25AM EST DIVISION OF RADIOLOGY Radiology Study observation (narrative) [facility] SPIROMETRY BASELINE ONLYon 1 03-21-2023 FEF25% PRE (L/S) 5.13 L[facility] OBZ31-93% LLN (L/S) 1.13 L/S [facility] TTN25-11% PRE (L/S) 2.44 L/S [facility] VFB63-56% PREDICTED (L/S) 2.51 L/S [facility] FEF75% LLN (L/S) 0.26 L/S [facility] FEF75% PRE (L/S0 1.38 L/S [facility] FEF75% PREDICTED (L/S) 0.70 L/S [facility] FEF75% ULN (L/S) 1.75 L/S [facility] FET PRE (S) 5.07 S [facility] FEV1 LLN (L) 2.21 L [facility] FEV1 PRE (L) 2.69 L [facility] FEV1 PREDICTED (L) 3.02 L [facility] FEV1 ULN (L) 3.77 L [facility] FEV1/FVC LLN (%) 64 % [facility] FEV1/FVC PRE (%) 82 % [facility] FEV1/FVC PREDICTED (%) 77 % [facility] FVC LLN (L) 2.94 L [facility] FVC PRE (L) 3.29 L [facility] FVC PREDICTED (L) 3.94 L [facility] FVC ULN (L) 4.96 L [facility] PEF LLN (L/S) 6.11 L/S [facility] PEF PRE (L/S) 8.04 L/S [facility] PEF ULN (L/S) 10.58 L/S [facility] [address] [facility] [address] [place] [address] Test Date: 2024-01-19 Pat Name: BELGICA ANGELO Department: Room: Gender: Male House Calls Nurse: : 1955 Requested By: Order Number: [id number] Reading MD: Ousmane Angel MD Interpretive Statements Current ATS/ERS acceptability and repeatability standards for spirometry met. Start of test and EOFE criteria met. //JEC IMPRESSION: Spirometry is normal. Electronically Signed On 01-19-2024 09:27:57 EST by Ousmane Angel MD ID: [id number] Name: BELGICA ANGELO Race: White Ht: 68.78 in Wt: 245.37 lbs Age: 68 Gender: Male : 1955 Dx: 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 Smoking Hx: Non-smoker Doctor: OSBALDO MAGALLANES Test Date: 01/19/2024 Site: Tech: Ousmane Shah PRE-BRONCH POST-BRONCH Pre LLN Pred ULN %Pred Post %Pred %Chg SPIROMETRY FVC (L) 3.29 2.94 3.94 4.96 83 FEV1 (L) 2.69 2.21 3.02 3.77 89 FEV1/FVC 0.82 0.64 0.77 0.88 106 PEF L/s (L/sec) 8.04 6.11 8.35 10.58 96 FEF50 (L/sec) 2.77 1.82 3.95 6.07 70 FIF50 (L/sec) 5.21 FEF50/FIF50 0.53 90-100 FIVC (L) 3.00 OBQ40-68 (L/sec) 2.44 1.13 2.51 4.43 97 Time (sec) 5.07 FET PEF (sec) 0.06 SARANYA (L) 0.09 Vol Extrap % (%) 3 Comments: Current ATS/ERS acceptability and repeatability standards for spirometry met. Start of test and EOFE criteria met. //[facility] XR Chest PA and Lateralon IMPRESSION: See result. Hydropress Operator: PSCB Transcribe Date/Time: Jan 19 2024 11:02A Dictated by : KO GILL DO This examination was interpreted and the report reviewed and electronically signed by: SANDY ANNE MD on Jan 19 2024 2:57PM EST DIVISION OF RADIOLOGY * * *Final Report* * * DATE OF EXAM: Jan 19 2024 7:49AM AOX [id number] - XR CHEST 2V FRONTAL/LAT / PROCEDURE REASON: multiple diagnoses * * * * Physician Interpretation * * * * EXAMINATION: CHEST RADIOGRAPH (2 VIEW FRONTAL & LATERAL) CLINICAL HISTORY: Aftercare following organ transplant S/P lung transplant (HCC) MQ: XC2_6 EXAM DATE/TIME: 01/19/2024 7:49 AM COMPARISON: 11/10/2023 chest x-ray RESULT: Lines, tubes, and devices: None. Lungs and pleura: Status post bilateral lung transplant. Stable mild elevation of the left hemidiaphragm. Mild bibasilar atelectasis. Persistent minimal blunting of the left costophrenic angle, may relate to trace pleural effusion/pleural thickening. No significant pneumothorax. Cardiomediastinal silhouette: Stable cardiomediastinal silhouette. Bones and soft tissues: Status post transverse sternotomy. Mild degenerative changes of thoracic spine. DIVISION OF RADIOLOGY Provider, [facility] - 01/19/2024 * * *Final Report* * * DATE OF EXAM: Jan 19 2024 7:49AM AOX [id number] - XR CHEST 2V FRONTAL/LAT / PROCEDURE REASON: multiple diagnoses * * * * Physician Interpretation * * * * EXAMINATION: CHEST RADIOGRAPH (2 VIEW FRONTAL & LATERAL) CLINICAL HISTORY: Aftercare following organ transplant S/P lung transplant (HCC) MQ: XC2_6 EXAM DATE/TIME: 01/19/2024 7:49 AM COMPARISON: 11/10/2023 chest x-ray RESULT: Lines, tubes, and devices: None. Lungs and pleura: Status post bilateral lung transplant. Stable mild elevation of the left hemidiaphragm. Mild bibasilar atelectasis. Persistent minimal blunting of the left costophrenic angle, may relate to trace pleural effusion/pleural thickening. No significant pneumothorax. Cardiomediastinal silhouette: Stable cardiomediastinal silhouette. Bones and soft tissues: Status post transverse sternotomy. Mild degenerative changes of thoracic spine. IMPRESSION IMPRESSION: See result. Hydropress Operator: AKIN Transcribe Date/Time: Jan 19 2024 11:02A Dictated by : KO GILL, DO This examination was interpreted and the report reviewed and electronically signed by: SANDY ANNE MD on Jan 19 2024 2:57PM EST [facility] Radiology Study observation (narrative) [facility] XR Chest PA and LateralOrder ed By: [facility] Provider on 01-19-[address] [facility] [address] Chest WO contraston 11-09 IMPRESSION: 1. Status post bilateral lung transplant with patent bronchial anastomosis. No suspicious lung nodules. Minimal, scattered foci of mild air trapping noted of indeterminate clinical significance, possibly associated with component of chronic rejection. 2. No enlarged lymph nodes. Old granulomatous disease. 3. Bilateral basilar, left greater than right, dense peridiaphragmatic and scattered linear/curvilinear atelectatic opacities noted. Small right and trace left loculated pleural effusions, presumably iatrogenic. Hydropress Operator: AKIN Transcribe Date/Time: Nov 10 2023 12:14P Dictated by : SANDRITA JOHNSTON MD This examination was interpreted and the report reviewed and electronically signed by: SANDRIAT JOHNSTON MD on Nov 10 2023 12:33PM [facility] DIVISION OF RADIOLOGY * * *Final Report* * * DATE OF EXAM: Nov 10 2023 7:43AM [facility] 0541 - CT CHEST WO IVCON / PROCEDURE REASON: Follow-up examination after lung transplant (HCC) * * * * Physician Interpretation * * * * EXAMINATION: CHEST CT WITHOUT CONTRAST CLINICAL HISTORY: 68-year-old male former 120 pack year smoker; -EtOH; status post bilateral lung transplant, 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 Free breathing images were obtained at several levels. MQ: CTCWO_6 CT Radiation dose: Integrated Dose-length product (DLP) for this visit = 709 mGy*cm CT Dose Reduction Employed: Automated exposure control (AEC) Comparison: 11/18/[address] RESULT: Limitations: Minimal cardiac pulsation related motion noted. Resource Agent (topogram) images: No additional findings. Lines, tubes, and devices: None. Lung parenchyma: On lung windows, postsurgical changes related to bilateral lung transplant with patent bronchial anastomosis. Retained tracheal secretions presumed, adherent to the right near thoracic inlet, image 55. Saber-sheath tracheal configuration redemonstrated. Ventral pulmonary staple lines related to volume reduction/wedge resection. In bilateral lung bases, linear and curvilinear atelectatic opacities are noted, including left peridiaphragmatic dense atelectasis involving inferior left lower lobe. These are worsened since 11/18/2021 exam. On free breathing images, no excessive dynamic airway collapse noted. A few, small areas of mild air trapping are noted, image 20 series 10 of indeterminate clinical significance, possibly associated with minimal, obstructive component of chronic rejection. Pleural space: Minimal loculated right and trace left loculated pleural effusions are noted, presumably postoperative (most prominent lentiform collection measuring about 7 x 4 x 7 cm within the right posterior inferior hemithorax). No pneumothorax. Lower neck, lymph nodes, and mediastinum: Visualized portions of the thyroid appear stable. No progressive axillary or supraclavicular lymphadenopathy meeting size criteria noted. Intrathoracically, no progressive intrathoracic lymphadenopathy meeting size criteria noted. Calcified right lower paratracheal lymph node, with resection of right hilar calcified lymph nodes. Heart, pericardium, and thoracic vessels: Focal atherosclerotic calcifications of the aorta and its branches noted. Common origin of brachiocephalic and left common carotid arteries arising off the aortic arch is noted, an anatomic variant. Ascending aorta is of normal caliber. Pulmonary trunk measures 29 mm, borderline dilated. Coronary artery calcifications likely involving LAD and probably distal left main, and minimally proximal RCA vessels. Postoperative cardiac chambers noted with prominent right and left atrium. No pericardial effusion. Stable esophagus noted. Mild mediastinal lipomatosis. Bones and soft tissues: Chest wall soft tissues are unremarkable. On bone window images, degenerative changes of the spine noted. Minimal spinal curvature. Clamshell sternotomy changes. Upper abdomen: Multiple calcified splenic and single right hepatic granulomas noted. Mild fatty infiltration of the pancreas. Nonspecific left perinephric fat stranding incompletely evaluated. DIVISION OF RADIOLOGY Provider, [facility] - 11/10/2023 * * *Final Report* * * DATE OF EXAM: Nov 10 2023 7:43AM [facility] 0541 - CT CHEST WO IVCON / PROCEDURE REASON: Follow-up examination after lung transplant (HCC) * * * * Physician Interpretation * * * * EXAMINATION: CHEST CT WITHOUT CONTRAST CLINICAL HISTORY: 68-year-old male former 120 pack year smoker; -EtOH; status post bilateral lung transplant, 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 Free breathing images were obtained at several levels. MQ: CTCWO_6 CT Radiation dose: Integrated Dose-length product (DLP) for this visit = 709 mGy*cm CT Dose Reduction Employed: Automated exposure control (AEC) Comparison: 11/18/[address] RESULT: Limitations: Minimal cardiac pulsation related motion noted. Resource Agent (topogram) images: No additional findings. Lines, tubes, and devices: None. Lung parenchyma: On lung windows, postsurgical changes related to bilateral lung transplant with patent bronchial anastomosis. Retained tracheal secretions presumed, adherent to the right near thoracic inlet, image 55. Saber-sheath tracheal configuration redemonstrated. Ventral pulmonary staple lines related to volume reduction/wedge resection. In bilateral lung bases, linear and curvilinear atelectatic opacities are noted, including left peridiaphragmatic dense atelectasis involving inferior left lower lobe. These are worsened since 11/18/2021 exam. On free breathing images, no excessive dynamic airway collapse noted. A few, small areas of mild air trapping are noted, image 20 series 10 of indeterminate clinical significance, possibly associated with minimal, obstructive component of chronic rejection. Pleural space: Minimal loculated right and trace left loculated pleural effusions are noted, presumably postoperative (most prominent lentiform collection measuring about 7 x 4 x 7 cm within the right posterior inferior hemithorax). No pneumothorax. Lower neck, lymph nodes, and mediastinum: Visualized portions of the thyroid appear stable. No progressive axillary or supraclavicular lymphadenopathy meeting size criteria noted. Intrathoracically, no progressive intrathoracic lymphadenopathy meeting size criteria noted. Calcified right lower paratracheal lymph node, with resection of right hilar calcified lymph nodes. Heart, pericardium, and thoracic vessels: Focal atherosclerotic calcifications of the aorta and its branches noted. Common origin of brachiocephalic and left common carotid arteries arising off the aortic arch is noted, an anatomic variant. Ascending aorta is of normal caliber. Pulmonary trunk measures 29 mm, borderline dilated. Coronary artery calcifications likely involving LAD and probably distal left main, and minimally proximal RCA vessels. Postoperative cardiac chambers noted with prominent right and left atrium. No pericardial effusion. Stable esophagus noted. Mild mediastinal lipomatosis. Bones and soft tissues: Chest wall soft tissues are unremarkable. On bone window images, degenerative changes of the spine noted. Minimal spinal curvature. Clamshell sternotomy changes. Upper abdomen: Multiple calcified splenic and single right hepatic granulomas noted. Mild fatty infiltration of the pancreas. Nonspecific left perinephric fat stranding incompletely evaluated. IMPRESSION IMPRESSION: 1. Status post bilateral lung transplant with patent bronchial anastomosis. No suspicious lung nodules. Minimal, scattered foci of mild air trapping noted of indeterminate clinical significance, possibly associated with component of chronic rejection. 2. No enlarged lymph nodes. Old granulomatous disease. 3. Bilateral basilar, left greater than right, dense peridiaphragmatic and scattered linear/curvilinear atelectatic opacities noted. Small right and trace left loculated pleural effusions, presumably iatrogenic. Hydropress Operator: PSCB Transcribe Date/Time: Nov 10 2023 12:14P Dictated by : SANDRITA JOHNSTON MD This examination was interpreted and the report reviewed and electronically signed by: SANDRITA JOHNSTON MD on Nov 10 2023 12:33PM EST [facility] CT Chest WO contrastOrdered By: Ccf Provider on 11-10-2023 [facility] No Panel Informationon 11-09 Radiology Study observation (narrative) [facility] SPIROMETRY BASELINE ONLYon 1 FEF25% PRE (L/S) 4.94 L/S [facility] BEO69-86% LLN (L/S) 1.14 L/S [facility] GRN01-87% PRE (L/S) 2.52 L/S [facility] PZE37-15% PREDICTED (L/S) 2.52 L/S [facility] FEF75% LLN (L/S) 0.27 L/S [facility] FEF75% PRE (L/S0 1.38 L/S [facility] FEF75% PREDICTED (L/S) 0.70 L/S [facility] FEF75% ULN (L/S) 1.76 L/S [facility] FET PRE (S) 4.21 S [facility] FEV1 LLN (L) 2.22 L [facility] FEV1 PRE (L) 2.69 L [facility] FEV1 PREDICTED (L) 3.02 L [facility] FEV1 ULN (L) 3.78 L [facility] FEV1/FVC LLN (%) 64 % [facility] FEV1/FVC PRE (%) 84 % [facility] FEV1/FVC PREDICTED (%) 77 % [facility] FVC LLN (L) 2.95 L [facility] FVC PRE (L) 3.21 L [facility] FVC PREDICTED (L) 3.95 L [facility] FVC ULN (L) 4.96 L [facility] PEF LLN (L/S) 6.13 L/S [facility] PEF PRE (L/S) 7.50 L/S [facility] PEF ULN (L/S) 10.60 L/S [facility] [place] [address] [place] [address] Test Date: 2023-11-10 Pat Name: BELGICA ANGELO Department: Room: Gender: Male House Calls Nurse: : 1955 Requested By: Order Number: [id number] Reading MD: Ousmane Angel MD Interpretive Statements Current ATS/ERS acceptability and repeatability standards for spirometry met. Start of test and EOFE criteria met. //YG IMPRESSION: Spirometry is normal. Electronically Signed On 11-10-2023 09:16:41 EDT by Ousmane Angel MD ID: [id number] Name: BELGICA ANGELO Race: White Ht: 68.78 in Wt: 244.49 lbs Age: 68 Gender: Male : 1955 Dx: 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 Smoking Hx: Non-smoker Doctor: VIVIANE CURTIS Test Date: 11/10/2023 Site: Tech: Emily Louis PRE-BRONCH POST-BRONCH Pre LLN Pred ULN %Pred Post %Pred %Chg SPIROMETRY FVC (L) 3.21 2.95 3.95 4.96 81 FEV1 (L) 2.69 2.22 3.02 3.78 89 FEV1/FVC 0.84 0.64 0.77 0.88 108 PEF L/s (L/sec) 7.50 6.13 8.37 10.60 89 FEF50 (L/sec) 2.84 1.83 3.95 6.08 71 FIF50 (L/sec) 4.38 FEF50/FIF50 0.65 90-100 FIVC (L) 3.05 VJB68-43 (L/sec) 2.52 1.14 2.52 4.44 100 Time (sec) 4.21 FET PEF (sec) 0.05 SARANYA (L) 0.06 Vol Extrap % (%) 2 Comments: Current ATS/ERS acceptability and repeatability standards for spirometry met. Start of test and EOFE criteria met. //[facility] XR Chest PA and Lateralon IMPRESSION: See result Hydropress Operator: AKIN Transcribe Date/Time: Nov 10 2023 3:29P Dictated by : ANJELICA LYN MD This examination was interpreted and the report reviewed and electronically signed by: ANJELICA LYN MD on Nov 10 2023 3:30PM [facility] DIVISION OF RADIOLOGY * * *Final Report* * * DATE OF EXAM: Nov 10 2023 9:01AM AOX 5291 - XR CHEST 2V FRONTAL/LAT / PROCEDURE REASON: 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, bilateral (HCC) * * * * Physician Interpretation * * * * EXAMINATION: CHEST RADIOGRAPH (2 VIEW FRONTAL & LATERAL) CLINICAL HISTORY: 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, bilateral (HCC) MQ: XC2_6 EXAM DATE/TIME: 11/10/2023 9:01 AM COMPARISON: 07/21/2023 RESULT: Lines, tubes, and devices: Lungs and pleura: Blunted left CP angle suggesting small effusion. Lower zones diffuse opacities/atelectasis. No focal consolidation. Cardiomediastinal silhouette: Stable cardiomediastinal silhouette. Bones and soft tissues: Stable DIVISION OF RADIOLOGY Provider, [facility] - 11/10/2023 * * *Final Report* * * DATE OF EXAM: Nov 10 2023 9:01AM AOX 5291 - XR CHEST 2V FRONTAL/LAT / PROCEDURE REASON: 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, bilateral (HCC) * * * * Physician Interpretation * * * * EXAMINATION: CHEST RADIOGRAPH (2 VIEW FRONTAL & LATERAL) CLINICAL HISTORY: 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, bilateral (HCC) MQ: XC2_6 EXAM DATE/TIME: 11/10/2023 9:01 AM COMPARISON: 07/21/2023 RESULT: Lines, tubes, and devices: Lungs and pleura: Blunted left CP angle suggesting small effusion. Lower zones diffuse opacities/atelectasis. No focal consolidation. Cardiomediastinal silhouette: Stable cardiomediastinal silhouette. Bones and soft tissues: Stable IMPRESSION IMPRESSION: See result Hydropress Operator: AKIN Transcribe Date/Time: Nov 10 2023 3:29P Dictated by : ANJELICA LYN MD This examination was interpreted and the report reviewed and electronically signed by: ANJELICA LYN MD on Nov 10 2023 3:30PM EST [facility] XR Chest PA and LateralOrder ed By: Ccf Provider on 11-10-2023 [facility] Surgical pathology studyOrde red By: Ishmael Burt on 07-27-2023 Laboratory comment Reji (Report) a8ebrNAgTMYtq6spGIHdfSHgIbWlNd WnRrTzImrkiXNxPXtzfgXiJHwpq5Gc Q4JgErXcYMjaskHsHJTvFmnkvahjTX ExURJ6neTqPSMyQUysFQAnIZvtBp6v aPCwbZklSyEvORMvc7hagsRIDCvzOO OOTBi3l9rjSZBcQhQ8hSKqTZvxK3qo xrZliOLjD1Tso5CcTAs9hS88KLEeoY 2sqSBaMXxhhhIoPwM5MZnvZFWfTjK2 TDFdmZTuCESwB8hoQZIgJYbbBGOaNE gbkZIuPBO9yVrmy8V4pZCzcMOfhKan EtMvRqNxCvBSu6SbGSq5tWhcY9MdXO QuAuQ3cLRbOLDaLTftTVJwAQFcddS0 uS72QBehfnY3iKNqh2Omv68qf160bZ 8xbKZnHEY1LLZcSSTkvWLvKDCvAUL1 NWYwmPXsL5izPuAstNApT5ZmDqWsuN PzQ2NcFpWqiALyV2WuOkBzuMJpZUCg kCC7SBela355JTN4VdCpZT6cI6Kir0 A7pI3tdHClLNXwzQHyPxJaBDEljv0t rKTyNKklw2LlPHY1anJ6eECatKFcTM QbIZ40Cnjrh5HoLrbsLYW7FYYsodPi m0Bdh7jiCfOvubThJ4geL6XnLSViIK QqXOYwIwGdkhPwe3Rjv1ErgJQdfZe3 s9tzZFKnQEGvgCvit7hcATH7UDChU1 J2iIMhv8zgYEozMZZqmHY1vqL3LYjy MFXztcO8qjE8MSmpZJEfuBB2xrZ7LX ikUQXeRyI5ibK4HNlrSLVzWVC4WeJf GRQvd9AwxoftTbWkz8XgxBZyIPnqK3 4ln583KPBfytRxQ8offNOtkdkqwDEk dgbfLIfhdcT3OPMaHKSiWAlaXJMjZD ZzMjBcbGFuZzEwMzNcaGljaFxmMVxk IhDxBAYzXMogB0nlIjTkLrUvTPRLrR H7pBWft0vgwkJ3eFSeQR9lCYAphNWa qfWpe9O7VIR1mEEcjA6psUAtPBWwpW SfebPqaf28lIPzrSU4QDQrTCLjbSBl pA9oIECuGJLKzS0sfUEVdhUthjYmZV NfkArbly0PnNDwtw7mlWAgM8BjrWaa aWVzIHRoYXQgdGhleSBoYXZlIHJldm oka5LeYTFijLXzI7XzDI7jFOHhyp06 [facility] Work Phone: Pathology report Cancer Narrative Surgical Pathology Case: [id number] Authorizing Provider: Consuelo Leahy DO Collected: 07/18/2023 0831 Ordering Location: [facility] Received: 07/18/2023 1611 Center OR Pathologist: Ishmael Burt MD Specimen: COLON - HEPATIC FLEXURE POLYP, HEPATIC FLEXURE POLYP [facility] Work Phone: Pathology report final diagnosis Narrative t0vctAXeKRUwkSZgAUKqT9kmptQlDN FwhDLjD1PdwqveAFhkFV1pKM2jyPoq kXHqaVDoXHGqLyQtv1ocf296wEPmy5 ltKFHWjffjpHt3bCofT11ay0X5Srpw S3tbBDWoFTxqHWImSDhgvSRdVUc0WB VmuONtmbFiNkIqAUEvbFFuzLS1WZAe VB8ijwpnPNgsFNpoCHVssgI6UHBshJ KzC4FhPDKhCS6ctsqlCOB3LQqjKUCq CUM7LjVgFHAlp5Nwdcy0HgMyoGm5r3 ibYKCfRUMctSbhq6imPAC1OBEuvWFd T6unnJ1aNJMcGF2lvfzxe6swXFfhOW igTOXpyUM1dlX7REUrqWMwS1VlpB4t ZARlOBWwimYldJbgfU8zItZuMaisIl ZfvMMzZZMiI9ZeYCQvGQRWJM7PGE3p JGDCIZIOAhKBGEWGJIMTQOBTP1bMYD wgQklPUFNZOlxiMCAgXHBhclxwYXJc xQVcAM4AkpDuuBXnsGGvk2SkzECqbL vlezCvLCHsy03yHghaHUPwM6JzIYXy XHBhcn0= [facility] Work Phone: Pathology report gross observation Narrative a3ikfWDyABPsdPNLBLI9ZMCrOT0ihR xawCf8vGopPWEwahZ0uKHvMOubv5xm NUB0c3qxzbDLVedhWOSrIH1lJCyjAG WsAR4uNzZmZOPdFiEyAVDjjNPawbJy WtYdODHhrJEozUN4FZBbZY0wzeonBG ltKHjqPQTuqpZ1UMShvFIcA1ViVJSh KM9njinzESH3ZUOLCrrgSq7kmYIpuU JJNdhtEeFlSlLfUPUgNWZqXQLej4la jgCLHKspBZJQMZj4EIr9OQPuVYKygB Bgi2I8CSwdn3nca7CaXVWkVZv7fR2G VuepUDN3ZVYQUczeNnygzDbhy3RbyT BcXHNnIFxcaWQgNTEwMDAgXFxkYiBP PjEpLcWtQcT7ABX2ANInTYb7LAenXl OVEND8YTq1YlLcLYe1FXyoHSsmsEWu NMWpVTPiVUOcASqojrK6a0vrLDDzvU MtIRT7ALzjm4nlVMpsJSX3XYPmSfEc RZEbTD6MAyTsVDMsNZRdXwp9RiD8LS s9KISZDrDmTpFkEYi0PoCdMVitRFe7 WOx1CBjCHtS4UXT8VOL7HYzbZEF9Ye cgXFxuaCBcXHQgMiBcXHNzIDMgXFxm pIZcAN8fyUpxBDEfHR5RUPMiTNqhLQ RxcNVHPQE7BD3nURTRAsbqeHVgZPJc KGbmwCLsO9dcVqRmCfGsDMHAPZYwlY TgRJLkxgMre4JfPCpvovikvKAzFVeb ALE8aJHmCVSrTNQtZYXrIB19B4Pskm WzOANvlfXcwI6zsGr3MAoikpCnJmKf ZHReHKLwjCNlINWpTkHkxRN9xALpJB VqfPhqDihfSEMmKD97sNWvzYvmARZc PFpoAN45exQqQyJ2GO6pBWDmLgXlmV ygv6AnKNIpK2OyC9L9eC8iRPHiMAZo FaQ6SYMjEsG0WHEoZgQkfZ1vCTpuDJ PnADXfmQPuIQuePIY6Rv2fdRNzRQQg mnX7a4DsBUzdWP7aVZEoGQBxLFV5SK 3yeCBoCZ3DONJoHxUrWLHbA2uoSOOn QC6LP9RUSZctLHTcJ20st3RJo6Cvm9 mliXrde6DogMRgIU71TCJyoMNoLWZ0 PB6auNgfGCNqAAmtmGSlZCSAHrhqnI FpbiANCn0= [facility] Work Phone: [facility] Work Phone: BAL MANUAL DIFFOrdered By: Radha Sellers on 07-21-2023 Diff Total, BAL 100 cells counted [facility] Lymph%, BAL 2 % [facility] Macro%, BAL 98 % [facility] BAL ROUTINE BFLOrdered By: Felipe Morgan on 07-21-2023 Clarity (Unsp spec) Clear Clear [facility] Color (Bronch spec) Colorless Colorless [facility] RBC LM.HPF (BAL) [#/Area] 59 /uL Reference range not establishe dLindy [facility] WBC Manual cnt (Bronch spec) [#/Vol] 120 /uL Reference range not establishe dLindy [facility] Bronchoscopy studyon 024 [facility] Radiology Study observation (narrative) [facility] Respiratory pathogens DNA an d RNA panel MARY CARMEN+probe (Nph)Ordered By: Anderson Chadwick on 07-21-2023 Adenovirus hexon gene MARY CARMEN+probe Ql (Nph) Not detected Not detected [facility] C. pneumoniae DNA MARY CARMEN+probe Ql (Unsp spec) Not detected Not detected [facility] FLUAV RNA MARY CARMEN+probe Ql (Unsp spec) Not detected Not detected [facility] FLUBV RNA MARY CARMEN+probe Ql (Unsp spec) Not detected Not detected [facility] HCoV 229E+OC43 RNA MARY CARMEN+probe Ql (Nph) Not detected Not detected [facility] HCoV HKU1 RNA MARY CARMEN+probe Ql (Unsp spec) Not detected Not detected [facility] HCoV NL63 RNA MARY CARMEN+non-probe Ql (Nph) Not detected Not detected [facility] HCoV OC43 RNA MARY CARMEN+probe Ql (Unsp spec) Not detected Not detected [facility] hMPV RNA MARY CARMEN+probe Ql (Unsp spec) Not detected Not detected [facility] Interpretation and review of laboratory results Normal [facility] M. pneumoniae DNA MARY CARMEN+probe Ql (Unsp spec) Not detected Not detected [facility] Parainfluenza virus 1 RNA MARY CARMEN+probe Ql (Unsp spec) Not detected Not detected [facility] Parainfluenza virus 2 RNA MARY CARMEN+probe Ql (Unsp spec) Not detected Not detected [facility] Parainfluenza virus 3 RNA MARY CARMEN+probe Ql (Unsp spec) Not detected Not detected [facility] Parainfluenza virus 4 P gene MARY CARMEN+probe Ql (Nph) Not detected Not detected [facility] Rhinovirus 5' UTR RNA MARY CARMEN+probe Ql (Nph) Not detected Not detected [facility] RSV RNA MARY CARMEN+probe Ql (Upper resp) Not detected Not detected [facility] SARS-CoV-2 (COVID-19) RNA MARY CARMEN+probe Ql (Resp) Not detected See comment [facility] Comment on above: Reference Range (the expected result in uninfected individuals): Not detected This test was develo ped by and its performance characteristics determined by [facility]'s [facility] [place] ([facility]). It has not been cleared or approved by the FDA. [facility] is regulated under CLIA as qualified to perform high-complexity testing. This test is used for clinical puposes. It should not be regarded as investigational or for research. [facility] XR Chest PA and Lateralon IMPRESSION: See result. Hydropress Operator: AKIN Transcribe Date/Time: Jul 21 2023 10:24A Dictated by : LILIBETH RUBIN MD This examination was interpreted and the report reviewed and electronically signed by: LILIBETH RUBIN MD on Jul 21 2023 10:25AM [facility] DIVISION OF RADIOLOGY * * *Final Report* * * DATE OF EXAM: Jul 21 2023 8:02AM AOX 5291 - XR CHEST 2V FRONTAL/LAT / PROCEDURE REASON: multiple diagnoses * * * * Physician Interpretation * * * * EXAMINATION: CHEST RADIOGRAPH (2 VIEW FRONTAL & LATERAL) CLINICAL HISTORY: Aftercare following organ transplant S/P lung transplant (HCC) MQ: XC2_6 EXAM DATE/TIME: 07/21/2023 8:02 AM COMPARISON: 04/20/2023 RESULT: Lines, tubes, and devices: None. Lungs and pleura: Prior bilateral lung transplant. No consolidation. No lung mass. Stable small left pleural effusion. No pneumothorax. Cardiomediastinal silhouette: Normal cardiomediastinal silhouette. Bones and soft tissues: Unremarkable. 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 Lungs and pleura: Prior bilateral lung transplant. No consolidation. No lung mass. Stable small left pleural effusion. No pneumothorax. Cardiomediastinal silhouette: Normal cardiomediastinal silhouette. Bones and soft tissues: Unremarkable. IMPRESSION IMPRESSION: See result. Hydropress Operator: PSCB Transcribe Date/Time: Jul 21 2023 10:24A Dictated by : LILIBETH RUBIN MD This examination was interpreted and the report reviewed and electronically signed by: LILIBETH RUBIN MD on Jul 21 2023 10:25AM EST [facility] Radiology Study observation (narrative) [facility] XR Chest PA and LateralOrder ed By: Ccf Provider on 07-21-2023 [facility] COLONOSCOPYon 07-18-2023 Colonoscopy Table formatting fro m the original result was not included. Impression One Corie Isp polyp measuring 5-9 mm in the hepatic flexure; performed hot snare removal Findings One sessile Corie Isp polyp measuring 5-9 mm in the hepatic flexure; no bleeding was identified; performed hot snare with complete en bloc removal and retrieved specimen Recommendation Follow up with PCP Repeat colonoscopy in 5 years Indication Colon cancer screening Staff Staff Role No Staff Documented Medications See Anesthesia Record. Preprocedure A history and physical has been performed, and patient medication allergies have been reviewed. The patient's tolerance of previous anesthesia has been reviewed. The risks and benefits of the procedure and the sedation options and risks were discussed with the patient and patient's partner. All questions were answered and informed consent obtained. Details of the Procedure The patient underwent monitored anesthesia care, which was administered by an anesthesia professional. The patient's blood pressure, ECG, ETCO2, heart rate, level of consciousness, oxygen and respirations were monitored throughout the procedure. A digital rectal exam was performed. The scope was introduced through the anus and advanced to the terminal ileum. Retroflexion was performed in the rectum. The quality of bowel preparation was evaluated using the Farwell Bowel Preparation Scale with scores of: right colon = 3, transverse colon = 3, left colon = 3. The total BBPS score was 9. Bowel prep was adequate. The patient experienced no blood loss. The procedure was not difficult. The patient tolerated the procedure well. There were no apparent adverse events. Events Procedure Events Event Event Time ENDO SCOPE IN TIME 07/18/2023 8:23 AM ENDO CECUM REACHED 07/18/2023 8:25 AM ENDO SCOPE OUT TIME 07/18/2023 8:34 AM Specimens ID Type Source Tests Collected by Time 1 : HEPATIC FLEXURE POLYP Tissue COLON - HEPATIC FLEXURE POLYP SURGICAL PATHOLOGY EXAM Lucila Hayden RN 07/18/2023 0831 Procedure Location [facility] OR [address] [place] [phone] Referring Provider Consuelo Leahy DO Procedure Provider Consuelo Leahy DO [facility] Colonoscopy studyon 07-18-19 24 Table formatting fro m the original result was not included. Impression One Corie Isp polyp measuring 5-9 mm in the hepatic flexure; performed hot snare removal Findings One sessile Corie Isp polyp measuring 5-9 mm in the hepatic flexure; no bleeding was identified; performed hot snare with complete en bloc removal and retrieved specimen Recommendation Follow up with PCP Repeat colonoscopy in 5 years Indication Colon cancer screening Staff Staff Role No Staff Documented Medications See Anesthesia Record. Preprocedure A history and physical has been performed, and patient medication allergies have been reviewed. The patient's tolerance of previous anesthesia has been reviewed. The risks and benefits of the procedure and the sedation options and risks were discussed with the patient and patient's partner. All questions were answered and informed consent obtained. Details of the Procedure The patient underwent monitored anesthesia care, which was administered by an anesthesia professional. The patient's blood pressure, ECG, ETCO2, heart rate, level of consciousness, oxygen and respirations were monitored throughout the procedure. A digital rectal exam was performed. The scope was introduced through the anus and advanced to the terminal ileum. Retroflexion was performed in the rectum. The quality of bowel preparation was evaluated using the Farwell Bowel Preparation Scale with scores of: right colon = 3, transverse colon = 3, left colon = 3. The total BBPS score was 9. Bowel prep was adequate. The patient experienced no blood loss. The procedure was not difficult. The patient tolerated the procedure well. There were no apparent adverse events. Events Procedure Events Event Event Time ENDO SCOPE IN TIME 07/18/2023 8:23 AM ENDO CECUM REACHED 07/18/2023 8:25 AM ENDO SCOPE OUT TIME 07/18/2023 8:34 AM Specimens ID Type Source Tests Collected by Time 1 : HEPATIC FLEXURE POLYP Tissue COLON - HEPATIC FLEXURE POLYP SURGICAL PATHOLOGY EXAM Lucila Hayden RN 07/18/2023 08 Procedure Location [facility] OR [address] [place] [phone] Referring Provider Consuelo Leahy DO Procedure Provider Consuelo Leahy DO [facility] Work Phone: [facility] Work Phone: Radiology Study observation (narrative) [facility] Work Phone: Surgical pathology studyon 0 07-18-2023 Surgical pathology study Pathology report.total SEE COMMENT Surgical Pathology Case: [id number] Authorizing Provider: Consuelo Leahy DO Collected: 07/18/2023 0831 Ordering Location: [facility] Received: 07/18/2023 1611 Center OR Pathologist: Ishmael Burt MD Specimen: COLON - HEPATIC FLEXURE POLYP, HEPATIC FLEXURE POLYP Path report.final diagnosis SEE COMMENT A. COLON - HEPATIC FLEXURE, POLYP, BIOPSY: -Fragments of tubular adenoma. Laboratory comment By the signature on this report, the individual or group listed as making the Final Interpretation/Diagnosis certifies that they have reviewed this case. Path report.gross observation SEE COMMENT Received in formalin, labeled with the patient's name and hospital number and hepatic flexure polyp, are multiple fragments of lee, soft tissue aggregating to 1.2 x 0.3 x 0.2 cm. The specimen is submitted in toto in one cassette. [facility] ALLOGEN POST-TX DSA RPTon [facility] XR Chest PA and Lateralon [facility] Laboratory - Drug toxicology Ordered By: Leila Veras on 04-19-2023 Amphetamines Ql (U) Negative <1000 ng/mL [facility] Benzodiazepines Ql (U) Negative < 200 ng/mL [facility] Cannabinoids Screen Ql (U) Negative < 50 ng/mL [facility] Cocaine Ql (U) Negative < 300 ng/mL [facility] Opiates Ql (U) Negative < 300 ng/mL [facility] No Panel InformationOrdered By: Leila Veras on 04-19-2023 MDMA (Ecstasy) Screen Negative < 500 ng/mL [facility] Urine Barbiturates Screen Negative < 200 ng/mL [facility] Urine Drug Screen Comment [facility] Comment on above: CONFIRMATORY TESTING FOR ALL POSITIVE URINE DRUG SCREENRESULTS WILL ONLY BE SENT OUT UPON PHYSICIAN ORDER. VISTA Urine Drug Screen methods provide only preliminaryanalytical test results. A more specific alternate chemicalmethod must be used in order to obtain a confirmedanalytical result. Gas chromatography/mass spectrometery(GC/MS) is the preferred confirmatory method. Clinicalconsideration and professional judgement should be appliedto any drug of abuse test result, particularly whenpreliminary positive results are used. URINE TCA TESTING MUST BE ORDERED SEPARATELY. USE TESTMNEMONIC: [facility] Urine Methadone Screen Negative < 300 ng/mL [facility] Urine phencyclidine (PCP) de tectionOrdered By: Leila Veras on 04-19-2023 Phencyclidine Ql (U) Negative < 25 ng/mL [facility] Laboratory - Drug toxicology Ordered By: Leila Veras on 12-02-2022 Amphetamines Ql (U) Negative <1000 ng/mL [facility] Benzodiazepines Ql (U) Negative < 200 ng/mL [facility] Cannabinoids Screen Ql (U) Negative < 50 ng/mL [facility] Cocaine Ql (U) Negative < 300 ng/mL [facility] Opiates Ql (U) Negative < 300 ng/mL [facility] No Panel InformationOrdered By: Leila Veras on 12-02-2022 MDMA (Ecstasy) Screen Negative < 500 ng/mL [facility] Urine Barbiturates Screen Negative < 200 ng/mL [facility] Urine Drug Screen Comment [facility] Comment on above: CONFIRMATORY TESTING FOR ALL POSITIVE URINE DRUG SCREENRESULTS WILL ONLY BE SENT OUT UPON PHYSICIAN ORDER. VISTA Urine Drug Screen methods provide only preliminaryanalytical test results. A more specific alternate chemicalmethod must be used in order to obtain a confirmedanalytical result. Gas chromatography/mass spectrometery(GC/MS) is the preferred confirmatory method. Clinicalconsideration and professional judgement should be appliedto any drug of abuse test result, particularly whenpreliminary positive results are used. URINE TCA TESTING MUST BE ORDERED SEPARATELY. USE TESTMNEMONIC: [facility] Urine Methadone Screen Negative < 300 ng/mL [facility] Urine phencyclidine (PCP) de tectionOrdered By: Leila Veras on 12-02-2022 Phencyclidine Ql (U) Negative < 25 ng/mL [facility] DXA-AXIAL SKELETON WITH VFAo n 11-29-2022 LOWEST T-SCORE -1.5 [facility] XR CHEST 2V FRONTAL/LATon [facility] EGD - THERAPEUTIC, EUS, OR T UBE INTERVENTIONSon 11-12-2022 [facility] XR ESOPHAGRAMon 11-12-2022 [facility] SPIROMETRY BASELINE ONLYon 0 10-21-2022 BCG07-66% PRE (L/S) 4.53 L/S [facility] FEV1 PRE (L) 2.70 L [facility] FEV1/FVC PRE (%) 96 % [facility] FVC PRE (L) 2.80 L [facility] PEF PRE (L/S) 8.26 L/S [facility] ALLOGEN POST-TX DSA RPTon [facility] XR CHEST 2V FRONTAL/LATon [facility] 2019 CORONAVIRUSon SARS-CoV-2 (COVID-19) RNA MARY CARMEN+probe Ql (Resp) Not detected See comment [facility] BAL MANUAL DIFFon 09-03-2022 Diff Total, BAL 100 cells counted Cl [facility] Lymph%, BAL 3 % [facility] Macro%, BAL 97 % [facility] BAL ROUTINE BFLon 09-03-2022 Clarity (Unsp spec) Cloudy Abnormal Clear [facility] Color (Bronch spec) Colorless Colorless [facility] RBC LM.HPF (BAL) [#/Area] 7 /uL Reference range not establishe d. /uL [facility] WBC Manual cnt (Bronch spec) [#/Vol] 375 /uL Reference range not establishe d. /uL [facility] BRONCHOSCOPYon 09-03-2022 [facility] GLUCOSE, BLOOD (POC)on 09-03 Glucose [Mass/Vol] 88 mg/dL 74 - 99 mg/dL [facility] Respiratory pathogens DNA an d RNA panel MARY CARMEN+probe (Nph)on 09-03-2022 Adenovirus hexon gene MARY CARMEN+probe Ql (Nph) Not detected Not detected [facility] C. pneumoniae DNA MARY CARMEN+probe Ql (Unsp spec) Not detected Not detected [facility] FLUAV RNA MARY CARMEN+probe Ql (Unsp spec) Not detected Not detected [facility] FLUBV RNA MARY CARMEN+probe Ql (Unsp spec) Not detected Not detected [facility] HCoV 229E+OC43 RNA MARY CARMEN+probe Ql (Nph) Not detected Not detected [facility] HCoV HKU1 RNA MARY CARMEN+probe Ql (Unsp spec) Not detected Not detected [facility] HCoV NL63 RNA MARY CARMEN+non-probe Ql (Nph) Not detected Not detected [facility] HCoV OC43 RNA MARY CARMEN+probe Ql (Unsp spec) Not detected Not detected [facility] hMPV RNA MARY CARMEN+probe Ql (Unsp spec) Not detected Not detected [facility] Human bocavirus DNA MARY CARMEN+probe Ql (Unsp spec) Not detected Not detected [facility] M. pneumoniae DNA MARY CARMEN+probe Ql (Unsp spec) Not detected Not detected [facility] Parainfluenza virus 1 RNA MARY CARMEN+probe Ql (Unsp spec) Not detected Not detected [facility] Parainfluenza virus 2 RNA MARY CARMEN+probe Ql (Unsp spec) Not detected Not detected [facility] Parainfluenza virus 3 RNA MARY CARMEN+probe Ql (Unsp spec) Not detected Not detected [facility] Parainfluenza virus 4 P gene MARY CARMEN+probe Ql (Nph) Not detected Not detected [facility] Rhinovirus 5' UTR RNA MARY CARMEN+probe Ql (Nph) Not detected Not detected [facility] RSV A RNA MARY CARMEN+probe Ql (Unsp spec) Not detected Not detected [facility] RSV B RNA MARY CARMEN+probe Ql (Unsp spec) Not detected Not detected [facility] SURGICAL PATHOLOGYon 023 Case Report Surgical Pathology R eport Case: [id number] Authorizing Provider: Ousmane Waite MD Collected: 09/03/2022 09:45 AM Ordering Location: Admitting Received: 09/03/2022 11:04 AM Pathologist: Jaqueline Key MD Specimens: A) - LUNG TRANSPLANT BIOPSY RIGHT, RLL B) - LUNG TRANSPLANT BIOPSY RIGHT, RML [facility] Clinical History Pre-op diagnosis: 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) [Z94.2] [facility] Diagnosis Comment Number of Diagnostic Pieces of Tissue: 5 Bronchioles: Present Lymphocytic bronchitis/bronchiolitis: No Large airways: Absent Bronchiolitis obliterans: No Chronic small vessel pathology: No Movat stain: Unremarkable; performed on Parts A and B in accordance with international guidelines for assessment of small airways and vessels. GMS stain: Not performed Other organismal stains: No Diagnostic viral inclusions: No Immunohistochemical studies for C4d: Not performed. General comments: None [facility] FINAL DIAGNOSIS A.,B. Right lung, lo wer and middle lobe, transplant transbronchial biopsies: No pathologic diagnosis No acute cellular rejection is seen. LRSG Grade A0B0 [facility] Gross Description A. LUNG TRANSPLANT B IOPSY RIGHT Received in formalin labeled as RLL are multiple pieces of irregular lee-pink to lee-red, soft tissue aggergating to 0.8 x 0.2 x 0.2 cm. Totally submitted in cassette A1. B. LUNG TRANSPLANT BIOPSY RIGHT Received in formalin labeled as RML are multiple pieces of irregular lee-pink to lee-red, soft tissue aggergating to 0.9 x 0.2 x 0.2 cm. Totally submitted in cassette B1. Gross examination performed at [facility], [address] [place] [address] JS 09/03/2022 11:22 AM [facility] Performing Lab Diagnostic interpret ation performed at [facility] [address] [facility] [address] CLIA# [id number] Records Management Director: Randolph Delaney M.D. [facility] XR CHEST 2V FRONTAL/LATon [facility] NM GASTRIC EMPTYING SOLIDon 08-19-2022 [facility] ALLOGEN POST-TX DSA RPTon [facility] XR CHEST 2V FRONTAL/LATon [facility] ECHO WITH AGITATED SALINE CO NTRASTon 06-02-2022 [facility] LVEF ECHO WITH AGITATED SALI NE CONTRASTon 06-02-2022 LV Ejection Fraction 61 % [facility] SIX MINUTE WALKon 06-02-2022 [facility] XR CHEST 2V FRONTAL/LATon [facility] CBC W Auto Differential pane l (Bld)on 02-24-2022 Basophils (Bld) [#/Vol] 0.06 10*3/uL <0.11 k/uL [facility] Basophils/100 WBC (Bld) 0.7 % [facility] Differential cell count method Nom (Bld) Auto [facility] Eosinophils (Bld) [#/Vol] 0.23 10*3/uL <0.46 k/uL [facility] Eosinophils/100 WBC (Bld) 2.5 % [facility] Erythrocyte distribution width (RBC) [Ratio] 13.1 % 11.5 - 15.0 % [facility] Hematocrit (Bld) [Volume fraction] 42.2 % 39.0 - 51.0 % [facility] Hemoglobin (Bld) [Mass/Vol] 12.9 g/dL Low 13.0 - 17.0 g/dL [facility] Immature granulocytes (Bld) [#/Vol] <0.10 k/uL [facility] Immature granulocytes/100 WBC (Bld) 0.2 % [facility] Lymphocytes (Bld) [#/Vol] 1.82 10*3/uL 1.00 - 4.00 k/uL [facility] Lymphocytes/100 WBC (Bld) 20.1 % [facility] MCH (RBC) [Entitic mass] 27.1 pg 26.0 - 34.0 pg [facility] MCHC (RBC) [Mass/Vol] 30.6 g/dL 30.5 - 36.0 g/dL [facility] MCV (RBC) [Entitic vol] 88.7 fL 80.0 - 100.0 fL [facility] Monocytes (Bld) [#/Vol] 0.69 10*3/uL <0.87 k/uL [facility] Monocytes/100 WBC (Bld) 7.6 % [facility] Neutrophils (Bld) [#/Vol] 6.23 10*3/uL 1.45 - 7.50 k/uL [facility] Neutrophils/100 WBC (Bld) 68.9 % [facility] Nucleated RBC (Bld) [#/Vol] <0.01 k/uL [facility] Nucleated RBC/100 WBC (Bld) [Ratio] 0.0 /100 WBC [facility] Platelet mean volume (Bld) [Entitic vol] 10.7 fL 9.0 - 12.7 fL [facility] Platelets (Bld) [#/Vol] 262 10*3/uL 150 - 400 k/uL [facility] RBC (Bld) [#/Vol] 4.76 10*6/uL 4.20 - 6.00 m/uL [facility] WBC (Bld) [#/Vol] 9.05 10*3/uL 3.70 - 11.00 k/uL [facility] SIX MINUTE WALKon 02-24-2022 [facility] SPIROMETRY BASELINE ONLYon 0 02-24-2022 FRD73-30% PRE (L/S) 0.23 L/S [facility] FEV1 PRE (L) 0.83 L [facility] FEV1/FVC PRE (%) 28 % [facility] FVC PRE (L) 3.00 L [facility] PEF PRE (L/S) 2.56 L/S [facility] XR CHEST 2V FRONTAL/LATon [facility] Laboratory - Drug toxicology on 01-13-2022 Amphetamines Ql (U) Negative <1000 ng/mL [facility] Work Phone: Benzodiazepines Ql (U) Negative < 200 ng/mL [facility] Work Phone: Cannabinoids Screen Ql (U) Negative < 50 ng/mL [facility] Work Phone: Cocaine Ql (U) Negative < 300 ng/mL [facility] Work Phone: Opiates Ql (U) Negative < 300 ng/mL [facility] Work Phone: No Panel Informationon 01-13 MDMA (Ecstasy) Screen Negative < 500 ng/mL [facility] Work Phone: Miscellaneous Test See comment [facility] Work Phone: Comment on above: TEST RESULT LIMITSTr amadol Positive Iodpgt=815 Tram[place], [place] [address] ng/mL Brtcuu=100 _ TESTING PERFORMED AT [facility]. ORIGINAL REPORT ON FILE IN LAB CONTAINS ADDITIONAL TEST SITE INFORMATION. ___ Urine Barbiturates Screen Negative < 200 ng/mL [facility] Work Phone: Urine Drug Screen Comment [facility] Work Phone: Comment on above: CONFIRMATORY TESTING FOR ALL POSITIVE URINE DRUG SCREENRESULTS WILL ONLY BE SENT OUT UPON PHYSICIAN ORDER. VISTA Urine Drug Screen methods provide only preliminaryanalytical test results. A more specific alternate chemicalmethod must be used in order to obtain a confirmedanalytical result. Gas chromatography/mass spectrometery(GC/MS) is the preferred confirmatory method. Clinicalconsideration and professional judgement should be appliedto any drug of abuse test result, particularly whenpreliminary positive results are used. URINE TCA TESTING MUST BE ORDERED SEPARATELY. USE TESTMNEMONIC: [facility] Urine Methadone Screen Negative < 300 ng/mL [facility] Work Phone: Urine phencyclidine (PCP) de tectionon 01-13-2022 Phencyclidine Ql (U) Negative < 25 ng/mL [facility] Work Phone: [id number] BLon 11-18 Alpha 1 antitrypsin [Mass/Vol] 96 mg/dL 90 - 200 mg/dL [facility] PF BG ARTERIAL/LAB PANELSon 11-18-2021 Base Excess, Arterial 6.1 mmol/L Abnormal -2 - 2 mmol/L [facility] Carboxyhemoglobin, Arterial 1.0 % 0.0 - 5.0 % [facility] CPET Medical Alert N/A [facility] Drawn By R Underation [facility] HCO3 (Bld) [Moles/Vol] 32.4 mmol/L Abnormal 22 - 26 mmol/L [facility] Hemoglobin (Bld) [Mass/Vol] 13.4 g/dL 13.0 - 17.0 g/dL [facility] Lactate [Moles/Vol] 0.7 mmol/L 0.5 - 2. 2 mmol/L [facility] Methemoglobin, Arterial 0.5 % 0.4 - 1.5 % [facility] O2 Administered, Arterial 21.0 % [facility] Oxyhemoglobin, Arterial 87.3 % Abnormal 95 - 98 % [facility] pCO2, Arterial 52.7 mmHg Abnormal 34 - 46 mmHg [facility] PFT Allens Test N/A [facility] PFT Draw Site left brachial [facility] PFT Pie Crust Mixer RAFAEL NUNEZ [facility] pH, Arterial 7.397 pH units 7.350 - 7.450 pH units [facility] pO2, Arterial 52.3 mmHg Abnormal 85 - 95 mmHg [facility] SIX MINUTE WALKon 11-18-2021 [facility] NM GASTRIC EMPTYING SOLIDon 07-23-2021 [facility] DXA-AXIAL SKELETON WITH VFAo n 07-22-2021 LOWEST T-SCORE -1.4 [facility] No Panel Informationon 07-22 [facility] SIX MINUTE WALKon 07-22-2021 [facility] ALPHA-1 ANTITRYPSIN GENOon 0 05-26-2021 HA1AT Reviewed by Alpha-1 Antitrypsin [facility] Accession Number: [id number] 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 Guidance: Genetic consultation and counseling of at risk family members regarding this laboratory testing may be considered as clinically appropriate. Individuals with PI*MZ genotype generally have serum alpha-1 antitrypsin levels between 62-151 mg/dL and a slightly increased risk of liver disease. Smokers with the PI*MZ genotype are at increased risk of lung disease. If this patient has a serum alpha-1 antitrypsin level that is not consistent with this genotype and alpha-1 antitrypsin deficiency caused by a rare variant is clinically suspected, consider performing SERPINA1 gene sequencing. Methodology: Isolated genomic DNA from the patient's blood specimen is evaluated for four variants in the alpha-1 antitrypsin gene SERPINA1 (RefSeq [id number]; GRCh38/hg38) by multiplex polymerase chain reaction (PCR) followed by melting curve analysis. These included the two most common pathogenic variants: S (c.863A>T, p.Jlt776Scr, g.[id number]), Z (c.1096G>A, p.Qzo677Rjv, g.[id number]), and the rarer variants: F (c.739C>T, p.Ewr512Kdk, g.45530035), I (c.187C>T, p.Ulw11Qjr, g.69217407). Limitations: This Laboratory Developed Test (LDT) is designed to detect the S, Z, F and I alleles. The S and Z alleles comprise 95% of non-wild type genotypes. Uncommon variants or Single Nucleotide Polymorphisms may affect binding of LightMix or LightSNiP probes and may result in a false negative, false positive, or indeterminate result. Absence of the S, Z, F, and I alleles is interpreted as PI*MM genotype. However, there are over 100 known rare variants of SERPINA1 that are not detected by this LDT. Therefore, correlation of the genotype with the patient's serum alpha-1 antitrypsin level and clinical manifestations is strongly recommended. Frequency of S, Z, F and I Alleles in the general population: S: Heterozygous 2%; Homozygous 0.04% Z: Heterozygous 1%; Homozygous 0.01% F: Heterozygous 0.3%; Homozygous 0.001% I: Heterozygous 0.1%; Homozygous unknown Allele frequency information was gathered from the [employer] ([employer]) and includes data from , , , and populations (supporting data in references). Disclaimer: This test was developed and its performance characteristics determined by [facility]'s [facility] [place] ([place]). It has not been cleared or approved by the FDA. [facility] is regulated under CLIA as certified to perform high- complexity testing. This test is used for clinical purposes. It should not be regarded as investigational or for research. Testing and interpretation performed at [facility], [facility], [place] [address]. CLIA Number: [id number] References: 1) Cristobal HORVATH, Callie G, Jann ML, Brice M, Adria CE, K, Edenilson DK, Shara SL, Aniceto MOJICA, Ismael MORALES, Yanna C, Jennifer J. The Diagnosis and Management of Alpha-1 Antritrypsin Deficiency in the Adult. Chronic Obstr Pulm Dis. 2016 Jul 13;3:668-682. 2) Kelin JA, Rufus ON, Jody ER, Tyra DG. a1-Antitrypsin phenotypes and associated serum protein concentrations in a large clinical population. Chest.2013 May;143(4):1000-8. 3) Aaron A, Mindi NA, Louis CR, Sandra FJ, Nav SJ, Fox AF. Molecular characterisation of three azgie-1-bvvzfeipomf deficiency variants: proteinase inhibitor (Pi) nullcardiff (Yjp691----Jou); PiMmalton (Gjq44----wopzqfcf) and PiI (Tvz68----Elq). Hum Roxanne. 1989 Jan;84(1):55-8. 4) Mikayla EK and Cristobal HORVATH. Clinical practice. Alpha1-antitrypsin deficiency. N Engl J Med. 2008Aug 01;360(02)0506-64. 5) Araseli CARDENAS, Nereida F, Jessica HORVATH. The significance of the F variant of oyyoo-7-dlnhpifgdlf and unique case report of a PiFF homozygote. BMC Pulm Med. 2014 Sep 13;14:132. 6) Ismael MORALES, Dante CHADWICK, and Farrah Paul. Alpha-1 Antitrypsin Deficiency. 2005Dec 03 [Updated 2016February 25]. In: Nancy RA, Rudy MP, Raimundo TO, et al., editors. Yasmine [Internet]. [place] ([place]): [facility]; 6283-5377. Available from: http://www.ncbi.nlm.nih.gov/dylan oks/REV3917/ As reviewed by Lisseth Robbins, PhD, [facility] ALLERGEN, RESPIRATORY REGION 05-25-2021 A. alternata IgE Qn (S) <0.35 <0.35 kU/l [facility] A. alternata IgE RAST class (S) Class 0 Class 0 [facility] A. fumigatus IgE Qn (S) <0.35 <0.35 kU/l [facility] A. fumigatus IgE RAST class (S) Class 0 Class 0 [facility] Danish Cockroach IgE Qn (S) <0.35 <0.35 kU/l [facility] Danish Cockroach IgE RAST class (S) Class 0 Class 0 [facility] Danish house dust mite IgE Qn (S) <0.35 <0.35 kU/l [facility] Danish house dust mite IgE RAST class (S) Class 0 Class 0 [facility] Bermuda grass IgE Qn (S) <0.35 <0.35 kU/l [facility] [place] grass IgE RAST class (S) Class 0 Class 0 [facility] Boxelder IgE Qn (S) <0.35 <0.35 kU/l [facility] Boxelder IgE RAST class (S) Class 0 Class 0 [facility] C. herbarum IgE Qn (S) <0.35 <0.35 kU/l [facility] C. herbarum IgE RAST class (S) Class 0 Class 0 [facility] [place] Pollen IgE Qn (S) <0.35 <0.35 kU/l [facility] [place] Pollen IgE RAST class (S) Class 0 Class 0 [facility] Cat dander IgE Qn (S) <0.35 <0.35 kU/l [facility] Cat dander IgE RAST class (S) Class 0 Class 0 [facility] Common Pigweed IgE Qn (S) <0.35 <0.35 kU/l [facility] Common Pigweed IgE RAST class (S) Class 0 Class 0 [facility] Common Ragweed IgE Qn (S) <0.35 <0.35 kU/l [facility] Common Ragweed IgE RAST class (S) Class 0 Class 0 [facility] [place] IgE Qn (S) <0.35 <0.35 kU/l [facility] [place] IgE RAST class (S) Class 0 Class 0 [facility] Dog dander IgE Qn (S) <0.35 <0.35 kU/l [facility] Dog dander IgE RAST class (S) Class 0 Class 0 [facility] house dust mite IgE Qn (S) <0.35 <0.35 kU/l [facility] house dust mite IgE RAST class (S) Class 0 Class 0 [facility] Brunson Plane IgE Qn (S) <0.35 <0.35 kU/l [facility] Brunson Plane IgE RAST class (S) Class 0 Class 0 [facility] Elder IgE Qn (S) <0.35 <0.35 kU/l [facility] Elder IgE RAST class (S) Class 0 Class 0 [facility] Mountain Juniper IgE Qn (S) <0.35 <0.35 kU/l [facility] Mountain Juniper IgE RAST class (S) Class 0 Class 0 [facility] Mouse epithelium IgE Qn (S) <0.35 <0.35 kU/l [facility] Mouse epithelium IgE RAST class (S) Class 0 Class 0 [facility] Mucor racemosus IgE Qn (S) <0.35 <0.35 kU/l [facility] Mucor racemosus IgE RAST class (S) Class 0 Class 0 [facility] P. notatum IgE Qn (S) <0.35 <0.35 kU/l [facility] P. notatum IgE RAST class (S) Class 0 Class 0 [facility] Pecan or [place] Tree IgE Qn (S) <0.35 <0.35 kU/l [facility] Pecan or [place] Tree IgE RAST class (S) Class 0 Class 0 [facility] Saltwort IgE Qn (S) <0.35 <0.35 kU/l [facility] Saltwort IgE RAST class (S) Class 0 Class 0 [facility] Silver Birch IgE Qn (S) <0.35 <0.35 kU/l [facility] Silver Birch IgE RAST class (S) Class 0 Class 0 [facility] Thanh IgE Qn (S) <0.35 <0.35 kU/l [facility] Thanh IgE RAST class (S) Class 0 Class 0 [facility] White Dhruv IgE Qn (S) <0.35 <0.35 kU/l [facility] White Dhruv IgE RAST class (S) Class 0 Class 0 [facility] White Elm IgE Qn (S) <0.35 <0.35 kU/l [facility] White Elm IgE RAST class (S) Class 0 Class 0 [facility] White mulberry IgE Qn (S) <0.35 <0.35 kU/l [facility] White mulberry IgE RAST class (S) Class 0 Class 0 [facility] [place] IgE Qn (S) <0.35 <0.35 kU/l [facility] [place] IgE RAST class (S) Class 0 Class 0 [facility] ALGN MOLDS GROUPon A. alternata IgE Qn (S) <0.35 <0.35 kU/l [facility] A. alternata IgE RAST class (S) Class 0 Class 0 [facility] A. fumigatus IgE Qn (S) <0.35 <0.35 kU/l [facility] A. fumigatus IgE RAST class (S) Class 0 Class 0 [facility] C. albicans IgE Qn (S) <0.35 <0.35 kU/l [facility] C. albicans IgE RAST class (S) Class 0 Class 0 [facility] C. herbarum IgE Qn (S) <0.35 <0.35 kU/l [facility] C. herbarum IgE RAST class (S) Class 0 Class 0 [facility] Mucor racemosus IgE Qn (S) <0.35 <0.35 kU/l [facility] Mucor racemosus IgE RAST class (S) Class 0 Class 0 [facility] [id number] BLon 05-20 Alpha 1 antitrypsin [Mass/Vol] 174 mg/dL 90 - 200 mg/dL [facility] CBC W Auto Differential pane l (Bld)on 05-20-2021 Abs Immature Gran <0.03 <0.10 k/uL [facility] Basophils (Bld) [#/Vol] 0.07 10*3/uL <0.11 k/uL [facility] Basophils/100 WBC (Bld) 0.8 % [facility] Differential cell count method Nom (Bld) Auto [facility] Eosinophils (Bld) [#/Vol] 0.17 10*3/uL <0.46 k/uL [facility] Eosinophils/100 WBC (Bld) 2.0 % [facility] Erythrocyte distribution width (RBC) [Ratio] 13.7 % 11.5 - 15.0 % [facility] Hematocrit (Bld) [Volume fraction] 44.3 % 39.0 - 51.0 % [facility] Hemoglobin (Bld) [Mass/Vol] 13.7 g/dL 13.0 - 17.0 g/dL [facility] Immature Gran % 0.2 % [facility] Lymphocytes (Bld) [#/Vol] 2.24 10*3/uL 1.00 - 4.00 k/uL [facility] Lymphocytes/100 WBC (Bld) 26.2 % [facility] MCH (RBC) [Entitic mass] 27.6 pg 26.0 - 34.0 pg [facility] MCHC (RBC) [Mass/Vol] 30.9 g/dL 30.5 - 36.0 g/dL [facility] MCV (RBC) [Entitic vol] 89.3 fL 80.0 - 100.0 fL [facility] Monocytes (Bld) [#/Vol] 0.75 10*3/uL <0.87 k/uL [facility] Monocytes/100 WBC (Bld) 8.8 % [facility] Neutrophils (Bld) [#/Vol] 5.29 10*3/uL 1.45 - 7.50 k/uL [facility] Neutrophils/100 WBC (Bld) 62.0 % [facility] Nucleated RBC (Bld) [#/Vol] 10*3/uL <0.01 k/uL [facility] Nucleated RBC/100 WBC (Bld) [Ratio] 0.0 /100 WBC [facility] Platelet mean volume (Bld) [Entitic vol] 10.9 fL 9.0 - 12.7 fL [facility] Platelets (Bld) [#/Vol] 282 10*3/uL 150 - 400 k/uL [facility] RBC (Bld) [#/Vol] 4.96 10*6/uL 4.20 - 6.00 m/uL [facility] WBC (Bld) [#/Vol] 8.54 10*3/uL 3.70 - 11.00 k/uL [facility] Comprehensive metabolic 2000 panelon 05-20-2021 Albumin [Mass/Vol] 4.5 g/dL 3.9 - 4.9 g/dL [facility] ALP [Catalytic activity/Vol] 90 U/L 38 - 113 U/L [facility] ALT [Catalytic activity/Vol] 19 U/L 10 - 54 U/L [facility] Anion gap [Moles/Vol] 12 mmol/L 9 - 18 mmol/L [facility] AST [Catalytic activity/Vol] 25 U/L 14 - 40 U/L [facility] Bilirubin [Mass/Vol] 1.0 mg/dL 0.2 - 1.3 mg/dL [facility] Calcium [Mass/Vol] 9.3 mg/dL 8.5 - 10. 2 mg/dL [facility] Chloride [Moles/Vol] 104 mmol/L 97 - 105 mmol/L [facility] CO2 [Moles/Vol] 26 mmol/L 22 - 30 mmol/L [facility] Creatinine [Mass/Vol] 0.56 mg/dL Low 0.73 - 1.22 mg/dL [facility] Estimated Glomerular Filtration Rate 110 mL/min/1.73m >=60 mL/min/1.7 3m [facility] Glucose [Mass/Vol] 89 mg/dL 74 - 99 mg/dL [facility] Potassium [Moles/Vol] 4.2 mmol/L 3.7 - 5.1 mmol/L [facility] Protein [Mass/Vol] 6.9 g/dL 6.3 - 8.0 g/dL [facility] Sodium [Moles/Vol] 142 mmol/L 136 - 144 mmol/L [facility] Urea nitrogen [Mass/Vol] 15 mg/dL 9 - 24 mg/dL [facility] No Panel Informationon 05-20 XNI04-04% POST (L/S) 0.38 L/S [facility] DNR44-72% PRE (L/S) 0.22 L/S [facility] FEV1 PRE (L) 0.83 L [facility] FEV1/FVC POST (%) 0.32 % [facility] FEV1/FVC PRE (%) 0.31 % [facility] FEV1_POST (L) 1.00 L [facility] FVC POST (L) 3.15 L [facility] FVC PRE (L) 2.63 L [facility] PEF POST (L/S) 2.77 L/S [facility] PEF PRE (L/S) 2.71 L/S [facility] CT CHEST WITHOUT CONTRASTon 04-12-2019 1. The ground-glass region within the left lower lobe is resolved consistent with infectious/inflammatory process. 2. The pulmonary nodule within the right upper lobe measuring 1.0 cm is unchanged from 2017 consistent with a benign finding. No new pulmonary nodule. Workstation ID: [id number] [facility] EXAMINATION: CT CHES T WITHOUT CONTRAST HISTORY: ORDERING SYSTEM PROVIDED HISTORY: Pneumonia; Abnormal chest CT, TECHNOLOGIST PROVIDED HISTORY: Illness/Other Reason for exam: 6 month f/u Encounter Type: Subsequent/Follow-up Additional signs and symptoms: prewv ldct ORDERING SYSTEM PROVIDED DIAGNOSIS CODES: R93.[address] COMPARISON: CT chest from 12/18/2018, CT of the chest from 12/19/2017 and 01/04/2017 TECHNIQUE: CT examination of the chest without IV contrast. Coronal and sagittal reformations were performed. Dose reduction techniques were achieved by using automated exposure control and/or adjustment of mA and/or kV according to patient size and/or use of iterative reconstruction technique. FINDINGS: Cardiovascular: The thoracic aorta is normal in caliber. Atherosclerotic vascular calcifications of the coronary arteries. The cardiac size is normal. No pericardial effusion. Mediastinum: Calcified right hilar lymph nodes from previous remote granulomatous disease. Calcified subcarinal lymph nodes. Subcentimeter short axis noncalcified lymph nodes without lymphadenopathy. Pulmonary: Pulmonary nodule within the right upper lobe image number 28 measuring 1.0 x 0.8 cm unchanged. 0.3 cm pulmonary nodule left upper lobe image number 22, unchanged. The previously demonstrated ground-glass region within the left lower lobe is resolved consistent with an infectious/inflammatory process. No focal consolidation, pneumothorax, or pleural effusion. Osseous: No fracture. No aggressive osseous lesion. Upper abdomen: Calcifications within the spleen from previous remote granulomatous disease. [facility] Interface, Rad In Fu ji Speechq - 04/12/2019 1:08 PM EST EXAMINATION: CT CHEST WITHOUT CONTRAST HISTORY: ORDERING SYSTEM PROVIDED HISTORY: Pneumonia; Abnormal chest CT, TECHNOLOGIST PROVIDED HISTORY: Illness/Other Reason for exam: 6 month f/u Encounter Type: Subsequent/Follow-up Additional signs and symptoms: prewv ldct ORDERING SYSTEM PROVIDED DIAGNOSIS CODES: R93.[address] COMPARISON: CT chest from 12/18/2018, CT of the chest from 12/19/2017 and 01/04/2017 TECHNIQUE: CT examination of the chest without IV contrast. Coronal and sagittal reformations were performed. Dose reduction techniques were achieved by using automated exposure control and/or adjustment of mA and/or kV according to patient size and/or use of iterative reconstruction technique. FINDINGS: Cardiovascular: The thoracic aorta is normal in caliber. Atherosclerotic vascular calcifications of the coronary arteries. The cardiac size is normal. No pericardial effusion. Mediastinum: Calcified right hilar lymph nodes from previous remote granulomatous disease. Calcified subcarinal lymph nodes. Subcentimeter short axis noncalcified lymph nodes without lymphadenopathy. Pulmonary: Pulmonary nodule within the right upper lobe image number 28 measuring 1.0 x 0.8 cm unchanged. 0.3 cm pulmonary nodule left upper lobe image number 22, unchanged. The previously demonstrated ground-glass region within the left lower lobe is resolved consistent with an infectious/inflammatory process. No focal consolidation, pneumothorax, or pleural effusion. Osseous: No fracture. No aggressive osseous lesion. Upper abdomen: Calcifications within the spleen from previous remote granulomatous disease. IMPRESSION: 1. The ground-glass region within the left lower lobe is resolved consistent with infectious/inflammatory process. 2. The pulmonary nodule within the right upper lobe measuring 1.0 cm is unchanged from 2017 consistent with a benign finding. No new pulmonary nodule. Workstation ID: [id number] [facility] CT CHEST WITHOUT CONTRAST EXAMINATION: CT CHEST WITHOUT CONTRAST HISTORY: ORDERING SYSTEM PROVIDED HISTORY: Pneumonia; Abnormal chest CT, TECHNOLOGIST PROVIDED HISTORY: Illness/Other Reason for exam: 6 month f/u Encounter Type: Subsequent/Follow-up Additional signs and symptoms: prewv ldct ORDERING SYSTEM PROVIDED DIAGNOSIS CODES: R93.[address] COMPARISON: CT chest from 12/18/2018, CT of the chest from 12/19/2017 and 01/04/2017 TECHNIQUE: CT examination of the chest without IV contrast. Coronal and sagittal reformations were performed. Dose reduction techniques were achieved by using automated exposure control and/or adjustment of mA and/or kV according to patient size and/or use of iterative reconstruction technique. FINDINGS: Cardiovascular: The thoracic aorta is normal in caliber. Atherosclerotic vascular calcifications of the coronary arteries. The cardiac size is normal. No pericardial effusion. Mediastinum: Calcified right hilar lymph nodes from previous remote granulomatous disease. Calcified subcarinal lymph nodes. Subcentimeter short axis noncalcified lymph nodes without lymphadenopathy. Pulmonary: Pulmonary nodule within the right upper lobe image number 28 measuring 1.0 x 0.8 cm unchanged. 0.3 cm pulmonary nodule left upper lobe image number 22, unchanged. The previously demonstrated ground-glass region within the left lower lobe is resolved consistent with an infectious/inflammatory process. No focal consolidation, pneumothorax, or pleural effusion. Osseous: No fracture. No aggressive osseous lesion. Upper abdomen: Calcifications within the spleen from previous remote granulomatous disease. IMPRESSION: 1. The ground-glass region within the left lower lobe is resolved consistent with infectious/inflammatory process. 2. The pulmonary nodule within the right upper lobe measuring 1.0 cm is unchanged from 2017 consistent with a benign finding. No new pulmonary nodule. Workstation ID: [id number] Dictated by: OUSMANE GUARDADO on TueApr 12, 2019 1:05:46 PM EST Transcribed by: OUSMANE GUARDADO on TueApr 12, 2019 1:05:46 PM EST Finalized by: OUSMANE GUARDADO on TueApr 12, 2019 1:05:46 PM EST Normal [facility] Comment on above: Order Comment: Injur y/Trauma or Illness?:Illness/Other How long have you had these symptoms (acute/chronic)?:Chronic Reason for exam?:6 month f/u Type of Exam?:Subsequent/Follow-up Additional signs and symptoms?:prewv ldct CT CHEST LOW DOSE LUNG NICK Singh June 12-18-2018 1. Stable 10 mm pulm onary nodule right upper lobe, noted to be present on studies dating to 2015 without substantial change. 2. New nodular foci present in the left base on current study include a posteromedial costophrenic sulcus 24 mm oval solid nodular density, and ground-glass nodular density measuring up to 21 mm. Short interval follow-up repeat CT in 3 months should be considered to confirm resolution of these findings, which are likely inflammatory. 3. Diffuse underlying chronic bronchitis changes. Minimal coronary artery and aortic atherosclerotic calcifications noted. Lung-RADs 4B Findings: Solid nodule(s): Greater than/equal to 15 mm OR a growing solid greater than/equal to 8 mm OR new part solid nodule(s) greater than/equal to 8 mm OR with a new or growing greater than/equal to 4 mm solid component. Management: Chest CT with or without contrast prior to a specialist consult, PET/CT prior to a specialist consult and/or tissue sampling depending on the *probability of malignancy or co-morbidities. PET/CT may be used when there is a greater than/equal to 8 mm solid component prior to specialist consult. [employer] Workstation ID: [id number] [facility] EXAMINATION: CT CHES T LOW DOSE LUNG SCREENING - LCSP HISTORY: ORDERING SYSTEM PROVIDED HISTORY: cancer screening, former smoker, TECHNOLOGIST PROVIDED HISTORY: Illness/Other Reason for exam: Former Smoker; Quit 02/10/2010; Smoked an average of 4.5 packs/day for 30 years; Smoked: Cigarettes. Encounter Type: Ongoing Additional signs and symptoms: copd ORDERING SYSTEM PROVIDED DIAGNOSIS CODES: J44.9 Chronic obstructive pulmonary disease, unspecified COPD type (HCC) Z12.2 Screening for malignant neoplasm of respiratory organ Z87.891 Personal history of tobacco use, presenting hazards to health COMPARISON: December 19, 2017. TECHNIQUE: Dose reduction techniques were achieved by using automated exposure control and/or adjustment of mA and/or kV according to patient size and/or use of iterative reconstruction technique. Low-dose axial screening CT scans of the chest are also reviewed in the reconstructed coronal and sagittal planes. FINDINGS: There is no enlargement of the heart, or great vessels. There are a few scattered coronary artery, as well as aortic arch atherosclerotic calcifications. Several calcified granulomatous scars are seen in the right hilar region, as well as some of the mediastinal lymph nodes. There is no enlarged lymph node or other mass identified. Esophagus is normal. Included upper abdominal structures, chest wall structures all appear to be normal. Lung parenchymal windows again show a slightly lobulated noncalcified 10 x 9 mm pulmonary nodule in the right upper lobe. This has not changed appearance since prior studies that I can directly visualized dating to 2017. At that time, there was reference made of stability compared to previous study dating to 2014. There is a new ill-defined solid-appearing nodular density in the left posteromedial costophrenic sulcus measuring up to 24 mm, and a superiorly adjacent 21 mm ground-glass nodule seen in the left base. Additional note is made of diffuse generalized thickening of the bronchial schmid, no obscured bronchial lumina identified. Bony structures of the spinal column and chest wall appear to be intact. [facility] CT CHEST LOW DOSE LUNG CA [place] 12-19-2017 CT CHEST LOW DOSE LUNG CA SCREEN Final ReportAccession No: [id number] Performed: Dec 19 2017 2:33PMExamination: CT CHEST LOW DOSE LUNG CA SCREENPROCEDURE: LOW-DOSE SCREENING CT OF THE LUNGS WITHOUT CONTRAST, 12/19/2017INDICATION: Asymptomatic patient meeting NCCN high-risk criteria for lungscreening. Baseline examination.COMPARISON: CT chest dated 01/04/2017TECHNIQUE: A low-dose screening protocol CT of the lungs was performedwithoutcontrast.Dose reduction technique used: Automated exposure control/Adjustment ofthe mAand/or kV according to patient size/Use of iterative reconstructiontechnique.SCAN PARAMETERS: 35 mAs, 110 kV, Total DLP 108 mGy-cmFINDINGS:LUNG SCREENING SPECIFIC (LUNG-RADS):Nodules > 6 mm (excluding nodules containing fat or benign pattern ofcalcification): Stable 9 x 10 mm solid nodule with lobular margins in therightupper lobe (series 3, image 53).Other nodules: Stable 3 x 2 mm solid subpleural nodule in the rightmiddle lobe(series 3, image 120). Several calcified right perihilar nodules arestable. Nonew or enlarging lung nodules.OTHER FINDINGS: Central airways are patent. There is central bronchialwallthickening, unchanged. No parenchymal consolidation. There is mildscatteredatelectasis or scarring in the bilateral lungs. There is mild unchangedbiapical pleural-parenchymal scarring. No pleural effusion orpneumothorax.Standard three vessel aortic arch. Thoracic aorta is normal in caliber.Thereare mild aortic atherosclerotic calcifications. The main pulmonary arteryisupper limits normal in caliber. Heart is normal in size. No pericardialeffusion. There are coronary artery calcifications.Thoracic inlet is unremarkable. Visualized thyroid gland is unremarkable.Esophagus is normal in appearance. There are calcified mediastinal andrighthilar lymph nodes. No pathologically enlarged mediastinal, hilar, oraxillarylymph nodes.No acute or aggressive osseous lesions. There are mild multileveldegenerativechanges in the thoracic spine.Limited noncontrast images of the upper abdomen demonstrates splenicgranulomas. There is hepatic steatosis. The visualized adrenal glands arenormal in appearance.IMPRESSION:1. Stable 9 x 10 mm solid nodule in the right upper lobe.2. Coronary artery disease.3. Sequelae of prior granulomatous infection in the chest and abdomen.4. 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 However, the narrative phrase printed from the coding software may appear abbreviated, or result in slightly different terminology. Coded By: Hannah Alston Date Saved: 12/28/2016 12:07 pm [facility] Coding Summary CODING DATE: 017 [facility] STATUS: PAYOR: Commercial Insurance APC DESCRIPTION 1415 Glassia injection ADMIT DX: REASON FOR VISIT DX: E88.01 Wgmrk-4-jhoynrxhaqc deficiency FINAL DX: PRINCIPAL: E88.01 Bgatv-6-rvudxmostoe deficiency SECONDARY: J44.9 Chronic obstructive pulmonary disease, unspecified PYMT PROC APC STAT DESCRIPTION DOCTOR NAME DATE NOTE: The code number assigned matches the documented diagnosis and / or procedure in the patient's chart. However, the narrative phrase printed from the coding software may appear abbreviated, or result in slightly different terminology. Coded By: Hannah Alston Date Saved: 12/28/2016 12:07 pm [facility] Coding Summaryon 12-15-2016 Coding Summary CODING DATE: 017 [facility] STATUS: Home PAYOR: Commercial Insurance APC DESCRIPTION 1415 Glassia injection 5691 Level 1 Drug Administration 5693 Level 3 Drug Administration ADMIT DX: REASON FOR VISIT DX: E88.01 Qqlqd-0-yoseslrlaci deficiency FINAL DX: PRINCIPAL: E88.01 Mhltj-5-hwkenhlrtxp deficiency SECONDARY: PYMT PROC APC STAT DESCRIPTION DOCTOR NAME DATE NOTE: The code number assigned matches the documented diagnosis and / or procedure in the patient's chart. However, the narrative phrase printed from the coding software may appear abbreviated, or result in slightly different terminology. 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 However, the narrative phrase printed from the coding software may appear abbreviated, or result in slightly different terminology. 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 However, the narrative phrase printed from the coding software may appear abbreviated, or result in slightly different terminology. Revised Coded By: Hannah Alston Revised Date Saved: 11/04/2016 05:18 am [facility] Coding Summaryon 10-06-2016 Coding Summary CODING DATE: 017 [facility] STATUS: Home PAYOR: Commercial Insurance ADMIT DX: REASON FOR VISIT DX: E88.01 Bhhiz-3-emjfthkvfxq deficiency FINAL DX: PRINCIPAL: E88.01 Lqzxk-9-nhlmyceblmd deficiency SECONDARY: PROCEDURES DOCTOR NAME DATE NOTE: The code number assigned matches the documented diagnosis and / or procedure in the patient's chart. However, the narrative phrase printed from the coding software may appear abbreviated, or result in slightly different terminology. Coded By: Hannah Alston Date Saved: 10/06/2016 04:45 pm [facility] Coding Summaryon 09-07-2016 Coding Summary CODING DATE: 017 [facility] STATUS: Home PAYOR: Commercial Insurance ADMIT DX: REASON FOR VISIT DX: E88.01 Pnpbm-4-shtnwblssju deficiency FINAL DX: PRINCIPAL: E88.01 Kivgw-4-ogrwtcyjpiu deficiency SECONDARY: PROCEDURES DOCTOR NAME DATE NOTE: The code number assigned matches the documented diagnosis and / or procedure in the patient's chart. However, the narrative phrase printed from the coding software may appear abbreviated, or result in slightly different terminology. Coded By: Hannah Alston Date Saved: 09/07/2016 05:16 am [facility] No Panel Information [facility] Vital Signs Date Time Vital Sign Value Performing Clinician Facility 10-16-2024 [id number] Body mass index (BMI) [Ratio] 36.5 kg/m2 Keshav Phillips APRN.CNP Work Phone: [facility] 10-16-2024 13:10-040 Body weight 111.13 kg Keshav Phillips APRN.CNP Work Phone: [facility] 10-16-2024 13:10-040 Diastolic blood pressure 93 mm[Hg] Keshav Phillips APRN.CNP Work Phone: [facility] 10-16-2024 13:10-0400 Heart rate 90 /min Keshav Phillips 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 SERVICE REPRESENTATIVE.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 MANAGER Work Phone: [facility] 10-16-2024 13:10-0400 Systolic blood pressure 135 mm[Hg] Keshav Phillips APRN.CNP Work Phone: [facility] 09-27-2024 09:07-0400 Body height 177.8 cm No Primary Care Physician [facility] 09-27-2024 09:07-0400 Body mass index (BMI) [Ratio] 35.9 kg/m2 No Primary Care Physician [facility] 09-27-2024 09:07-0400 Body temperature 97.5 [degF] No Primary Care Physician [facility] 09-27-2024 09:07-0400 Body weight 113.39 kg No Primary Care Physician [facility] 09-27-2024 09:07-0400 Diastolic blood pressure 69 mm[Hg] No Primary Care Physician [facility] 09-27-2024 09:07-0400 Heart rate 91 /min No Primary Care Physician [facility] 09-27-2024 09:07-0400 Respiratory rate 32 /min No Primary Care Physician [facility] 09-27-2024 09:07-0400 SaO2% (BldA) [Mass fraction] 95 % No Primary Care Physician [facility] 09-27-2024 09:07-0400 Systolic blood pressure 123 mm[Hg] No Primary Care Physician [facility] 09-25-2024 10:21-0400 Body height 174.5 cm Moon Tomlinson DO Work Phone: [facility] 09-25-2024 10:21-0400 Body mass index (BMI) [Ratio] 37.54 kg/m2 Moon Tomlinson DO Work Phone: [facility] 09-25-2024 10:21-0400 Body weight 114.3 kg Moon Tomlinson DO Work Phone: [facility] 09-03-2024 09:00-0400 Body mass index (BMI) [Ratio] 37.01 kg/m2 Keshav Phillips APRN.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 MANAGER Work Phone: [facility] 09-03-2024 09:00-0400 Body weight 117 kg Keshav Phillips 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 SERVICE REPRESENTATIVE.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 MANAGER Work Phone: [facility] 09-03-2024 09:00-0400 Diastolic blood pressure 74 mm[Hg] Keshav Phillips 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 SERVICE REPRESENTATIVE.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 MANAGER Work Phone: [facility] 09-03-2024 09:00-0400 Heart rate 96 /min Keshav Phillips 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 SERVICE REPRESENTATIVE.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 MANAGER Work Phone: [facility] 09-03-2024 09:00-0400 Systolic blood pressure 120 mm[Hg] Keshav Phillips 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 SERVICE REPRESENTATIVE.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 MANAGER Work Phone: [facility] 07-17-2024 07:56-0400 Body height 177.8 cm Osbaldo Magallanes MD Work Phone: [facility] 07-17-2024 07:56-0400 Body mass index (BMI) [Ratio] 35.87 kg/m2 Osbaldo Magallanes MD Work Phone: [facility] 07-17-2024 07:56-0400 Body temperature 97.59 [degF] Osbaldo Magallanes MD Work Phone: [facility] 07-17-2024 07:56-0400 Body weight 113.4 kg Osbaldo Magallanes MD Work Phone: [facility] 07-17-2024 07:56-0400 Diastolic blood pressure 82 mm[Hg] Osbaldo Magallanes MD Work Phone: [facility] 07-17-2024 07:56-0400 Heart rate 94 /min Osbaldo Magallanes MD Work Phone: [facility] 07-17-2024 07:56-0400 Respiratory rate 16 /min Osbaldo Magallanes MD Work Phone: [facility] 07-17-2024 07:56-0400 SaO2% (BldA) [Mass fraction] 96 % Osbaldo Magallanes MD Work Phone: [facility] 07-17-2024 07:56-0400 Systolic blood pressure 138 mm[Hg] Osbaldo Magallanes MD Work Phone: [facility] 04-30-2024 13:00-0400 Body mass index (BMI) [Ratio] 36.03 kg/m2 Conchita Martel MD Work Phone: [facility] 04-30-2024 13:00-0400 Body weight 113.9 kg Cocnhita Martel MD Work Phone: [facility] 04-30-2024 13:00-0400 Heart rate 95 /min Conchita Martel MD Work Phone: [facility] 04-30-2024 13:00-0400 SaO2% (BldA) [Mass fraction] 96 % Conchita Martel MD Work Phone: [facility] 04-24-2024 10:42-0400 Body height 177.8 cm Osbaldo Magallanes MD Work Phone: [facility] 04-24-2024 10:42-0400 Body mass index (BMI) [Ratio] 36.01 kg/m2 Osbaldo Magallanes MD Work Phone: [facility] 04-24-2024 10:42-0400 Body temperature 98.2 [degF] Osbaldo Magallanes MD Work Phone: [facility] 04-24-2024 10:42-0400 Body weight 113.85 kg Osbaldo Magallanes MD Work Phone: [facility] 04-24-2024 10:42-0400 Diastolic blood pressure 66 mm[Hg] Osbaldo Magallanes MD Work Phone: [facility] 04-24-2024 10:42-0400 Heart rate 93 /min Osbaldo Magallanes MD Work Phone: [facility] 04-24-2024 10:42-0400 Respiratory rate 14 /min Osbaldo Magallanes MD Work Phone: [facility] 04-24-2024 10:42-0400 SaO2% (BldA) [Mass fraction] 96 % Osbaldo Magallanes MD Work Phone: [facility] 04-24-2024 10:42-0400 Systolic blood pressure 146 mm[Hg] Osbaldo Magallanes MD Work Phone: [facility] 04-24-2024 08:19-0400 Body height 177.8 cm Ashley Kate PA-C Work Phone: [facility] 04-24-2024 08:19-0400 Body mass index (BMI) [Ratio] 36.45 kg/m2 Ashley Kate PA-C Work Phone: [facility] 04-24-2024 08:19-0400 Body temperature 97.9 [degF] Ashley Kate PA-C Work Phone: [facility] 04-24-2024 08:19-0400 Body weight 115.21 kg Ashley Kate PA-C Work Phone: [facility] 04-24-2024 08:19-0400 Diastolic blood pressure 75 mm[Hg] Ashley Kate PA-C Work Phone: [facility] 04-24-2024 08:19-0400 Heart rate 90 /min Ashley Kate PA-C Work Phone: [facility] 04-24-2024 08:19-0400 Systolic blood pressure 133 mm[Hg] Ashley Kate PA-C Work Phone: [facility] 01-19-2024 09:06-0500 Body height 177.8 cm Osbaldo Magallanes MD Work Phone: [facility] 01-19-2024 09:06-0500 Body mass index (BMI) [Ratio] 35.15 kg/m2 Osbaldo Magallanes MD Work Phone: [facility] 01-19-2024 09:06-0500 Body temperature 97.39 [degF] Osbaldo Magallanes MD Work Phone: [facility] 01-19-2024 09:06-0500 Body weight 111.13 kg Osbaldo Magallanes MD Work Phone: [facility] 01-19-2024 09:06-0500 Diastolic blood pressure 79 mm[Hg] Osbaldo Magallanes MD Work Phone: [facility] 01-19-2024 09:06-0500 Heart rate 88 /min Osbaldo Magallanes MD Work Phone: [facility] 01-19-2024 09:06-0500 Respiratory rate 14 /min Osbaldo Magallanes MD Work Phone: [facility] 01-19-2024 09:06-0500 SaO2% (BldA) [Mass fraction] 96 % Osbaldo Magallanes MD Work Phone: [facility] 01-19-2024 09:06-0500 Systolic blood pressure 143 mm[Hg] Osbaldo Magallanes MD Work Phone: [facility] 01-03-2024 08:35-0500 Body mass index (BMI) [Ratio] 35.15 kg/m2 Keshav Phillips APRN.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 MANAGER Work Phone: [facility] 01-03-2024 08:35-0500 Body weight 111.13 kg Keshav Phillips APRN.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 MANAGER Work Phone: [facility] 01-03-2024 08:35-0500 Diastolic blood pressure 78 mm[Hg] Keshav Phillips APRN.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 MANAGER Work Phone: [facility] 01-03-2024 08:35-0500 Heart rate 79 /min Keshav Phillips APRN.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 MANAGER Work Phone: [facility] 01-03-2024 08:35-0500 Respiratory rate 14 /min Keshav Phillips APRN.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 MANAGER Work Phone: [facility] 01-03-2024 08:35-0500 Systolic blood pressure 135 mm[Hg] Keshav Phillips APRN.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 MANAGER Work Phone: [facility] 11-22-2023 08:50-0400 Body mass index (BMI) [Ratio] 35.3 kg/m2 Keshav Phillips 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 SERVICE REPRESENTATIVE.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 MANAGER Work Phone: [facility] 11-22-2023 08:50-0400 Body weight 111.58 kg Keshav Phillips 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 SERVICE REPRESENTATIVE.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 MANAGER Work Phone: [facility] 11-22-2023 08:50-0400 Diastolic blood pressure 79 mm[Hg] Keshav Phillips 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 SERVICE REPRESENTATIVE.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 MANAGER Work Phone: [facility] 11-22-2023 08:50-0400 Heart rate 76 /min Keshav Phillips 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 SERVICE REPRESENTATIVE.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 MANAGER Work Phone: [facility] 11-22-2023 08:50-0400 Respiratory rate 14 /min Keshav Phillips 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 SERVICE REPRESENTATIVE.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 MANAGER Work Phone: [facility] 11-22-2023 08:50-0400 Systolic blood pressure 132 mm[Hg] Keshav Phillips 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 SERVICE REPRESENTATIVE.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 MANAGER Work Phone: [facility] 11-10-2023 14:43-0400 Body height 177.8 cm Ashley Kate PA-C Work Phone: [facility] 11-10-2023 14:43-0400 Body mass index (BMI) [Ratio] 34.72 kg/m2 Ashley Kate PA-C Work Phone: [facility] 11-10-2023 14:43-0400 Body temperature 97.5 [degF] Ashley Kate PA-C Work Phone: [facility] 11-10-2023 14:43-0400 Body weight 109.77 kg Ashley Kate PA-C Work Phone: [facility] 11-10-2023 14:43-0400 Diastolic blood pressure 84 mm[Hg] Ashley Kate PA-C Work Phone: [facility] 11-10-2023 14:43-0400 Heart rate 88 /min Ashley Kate PA-C Work Phone: [facility] 11-10-2023 14:43-0400 Systolic blood pressure 142 mm[Hg] Ashley Jin PA-C Work Phone: [facility] 11-10-2023 12:56-0400 Body mass index (BMI) [Ratio] 35.01 kg/m2 Anton De Jesus MD Work Phone: [facility] 11-10-2023 12:56-0400 Body temperature 97.9 [degF] Anton De Jesus MD Work Phone: [facility] 11-10-2023 12:56-0400 Body weight 110.68 kg Anton De Jesus MD Work Phone: [facility] 11-10-2023 12:56-0400 Diastolic blood pressure 86 mm[Hg] Anton De Jesus MD Work Phone: [facility] 11-10-2023 12:56-0400 Heart rate 90 /min Anton De Jesus MD Work Phone: [facility] 11-10-2023 12:56-0400 Respiratory rate 16 /min Anotn De Jesus MD Work Phone: [facility] 11-10-2023 12:56-0400 SaO2% (BldA) [Mass fraction] 97 % Anton De Jesus MD Work Phone: [facility] 11-10-2023 12:56-0400 Systolic blood pressure 142 mm[Hg] Anton De Jesus MD Work Phone: [facility] 11-10-2023 11:34-0400 Body height 177.8 cm Osbaldo Magallanes MD Work Phone: [facility] 11-10-2023 11:34-0400 Body mass index (BMI) [Ratio] 35.07 kg/m2 Osbaldo Magallanes MD Work Phone: [facility] 11-10-2023 11:34-0400 Body temperature 97.9 [degF] Osbaldo Magallanes MD Work Phone: [facility] 11-10-2023 11:34-0400 Body weight 110.86 kg Osbaldo Magallanes MD Work Phone: [facility] 11-10-2023 11:34-0400 Diastolic blood pressure 86 mm[Hg] Osbaldo Magallanes MD Work Phone: [facility] 11-10-2023 11:34-0400 Heart rate 90 /min Osbaldo Magallanes MD Work Phone: [facility] 11-10-2023 11:34-0400 Respiratory rate 16 /min Osbaldo Magallanes MD Work Phone: [facility] 11-10-2023 11:34-0400 SaO2% (BldA) [Mass fraction] 97 % Osbaldo Magallanes MD Work Phone: [facility] 11-10-2023 11:34-0400 Systolic blood pressure 142 mm[Hg] Osbaldo Magallanes MD Work Phone: [facility] 09-20-2023 08:16-0400 Body mass index (BMI) [Ratio] 36.3 kg/m2 Keshav Phillips APRN.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 MANAGER Work Phone: [facility] 09-20-2023 08:16-0400 Body weight 114.76 kg Keshav Phillips APRN.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 MANAGER Work Phone: [facility] 09-20-2023 08:16-0400 Diastolic blood pressure 72 mm[Hg] Keshav Phillips APRN.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 MANAGER Work Phone: [facility] 09-20-2023 08:16-0400 Heart rate 102 /min Keshav Phillips APRN.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 MANAGER Work Phone: [facility] 09-20-2023 08:16-0400 Respiratory rate 16 /min Keshav Phillips APRN.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 MANAGER Work Phone: [facility] 09-20-2023 08:16-0400 Systolic blood pressure 112 mm[Hg] Keshav Phillips APRN.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 MANAGER Work Phone: [facility] 07-21-2023 13:39-0400 Diastolic blood pressure 65 mm[Hg] Nick Mccoy MD Work Phone: [facility] 07-21-2023 13:39-0400 Heart rate 76 /min Nick Mccoy MD Work Phone: [facility] 07-21-2023 13:39-0400 SaO2% (BldA) [Mass fraction] 100 % Nick Mccoy MD Work Phone: [facility] 07-21-2023 13:39-0400 Systolic blood pressure 134 mm[Hg] Nick Mccoy MD Work Phone: [facility] 07-21-2023 13:09-0400 Body temperature 96.8 [degF] Nick Mccoy MD Work Phone: [facility] 07-21-2023 13:09-0400 Respiratory rate 16 /min Nick Mccoy MD Work Phone: [facility] 07-21-2023 11:11-0400 Body height 177.8 cm Nick Mccoy MD Work Phone: [facility] 07-21-2023 11:11-0400 Body mass index (BMI) [Ratio] 34.44 kg/m2 Nick Mccoy MD Work Phone: [facility] 07-21-2023 11:11-0400 Body weight 108.86 kg Nick Mccoy MD Work Phone: [facility] 07-21-2023 08:34-0400 Body height 177.8 cm Viviane Curtis MD Work Phone: [facility] 07-21-2023 08:34-0400 Body mass index (BMI) [Ratio] 34.48 kg/m2 Viviane Curtis MD Work Phone: [facility] 07-21-2023 08:34-0400 Body temperature 98.6 [degF] Viviane Curtis MD Work Phone: [facility] 07-21-2023 08:34-0400 Body weight 109 kg Viviane Curtis MD Work Phone: [facility] 07-21-2023 08:34-0400 Diastolic blood pressure 80 mm[Hg] Viviane Curtis MD Work Phone: [facility] 07-21-2023 08:34-0400 Heart rate 82 /min Viviane Curtis MD Work Phone: [facility] 07-21-2023 08:34-0400 Respiratory rate 16 /min Viviane Curtis MD Work Phone: [facility] 07-21-2023 08:34-0400 SaO2% (BldA) [Mass fraction] 96 % Viviane Curtis MD Work Phone: [facility] 07-21-2023 08:34-0400 Systolic blood pressure 129 mm[Hg] Viviane Curtis MD Work Phone: [facility] 07-18-2023 09:25-0400 Diastolic blood pressure 79 mm[Hg] [address] 07-18-2023 09:25-0400 Heart rate 86 /min [address] 07-18-2023 09:25-0400 Respiratory rate 16 /min [address] 07-18-2023 09:25-0400 SaO2% (BldA) [Mass fraction] 100 % [address] 07-18-2023 09:25-0400 Systolic blood pressure 129 mm[Hg] [address] 07-18-2023 08:39-0400 Body temperature 97.81 [degF] [address] 07-18-2023 06:36-0400 Body height 177.[address] 07-18-2023 06:36-0400 Body mass index (BMI) [Ratio] 34.42 kg/m2 [address] 07-18-2023 06:36-0400 Body weight 108.[address] 07-11-2023 12:55-0400 Body mass index (BMI) [Ratio] 34.29 kg/m2 Keshav Phillips APRN.CNP Work Phone: [facility] 07-11-2023 12:55-0400 Body weight 108.41 kg Keshav Phillips 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 SERVICE REPRESENTATIVE.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 MANAGER Work Phone: [facility] 07-11-2023 12:55-0400 Diastolic blood pressure 73 mm[Hg] Keshav Phillips 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 SERVICE REPRESENTATIVE.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 MANAGER Work Phone: [facility] 07-11-2023 12:55-0400 Heart rate 106 /min Keshav Phillips 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 SERVICE REPRESENTATIVE.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 MANAGER Work Phone: [facility] 07-11-2023 12:55-0400 Respiratory rate 16 /min Keshav Phillips 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 SERVICE REPRESENTATIVE.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 MANAGER Work Phone: [facility] 07-11-2023 12:55-0400 Systolic blood pressure 114 mm[Hg] Keshav Phillips 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 SERVICE REPRESENTATIVE.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 MANAGER Work Phone: [facility] 05-26-2023 13:25-0400 Body temperature 97.59 [degF] Evan May MD Work Phone: [facility] 05-26-2023 13:25-0400 Diastolic blood pressure 93 mm[Hg] Evan May MD Work Phone: [facility] 05-26-2023 13:25-0400 Heart rate 79 /min Evan May MD Work Phone: [facility] 05-26-2023 13:25-0400 Respiratory rate 20 /min Evan May MD Work Phone: [facility] 05-26-2023 13:25-0400 SaO2% (BldA) [Mass fraction] 96 % Evan May MD Work Phone: [facility] 05-26-2023 13:25-0400 Systolic blood pressure 156 mm[Hg] Evan May MD Work Phone: [facility] 05-26-2023 07:56-0400 Body height 178 cm Evan May MD Work Phone: [facility] 05-26-2023 07:56-0400 Body mass index (BMI) [Ratio] 34.59 kg/m2 Evan May MD Work Phone: [facility] 05-26-2023 07:56-0400 Body weight 109.6 kg Evan May MD Work Phone: [facility] 04-29-2023 13:33-0400 Diastolic blood pressure 74 mm[Hg] Evan May MD Work Phone: [facility] 04-29-2023 13:33-0400 Heart rate 88 /min Evan May MD Work Phone: [facility] 04-29-2023 13:33-0400 Systolic blood pressure 121 mm[Hg] Evan May MD Work Phone: [facility] 04-28-2023 08:05-0400 Diastolic blood pressure 79 mm[Hg] Evan May MD Work Phone: [facility] 04-28-2023 08:05-0400 Heart rate 75 /min Evan May MD Work Phone: [facility] 04-28-2023 08:05-0400 Respiratory rate 18 /min Evan May MD Work Phone: [facility] 04-28-2023 08:05-0400 SaO2% (BldA) [Mass fraction] 98 % Evan May MD Work Phone: [facility] 04-28-2023 08:05-0400 Systolic blood pressure 133 mm[Hg] Evan May MD Work Phone: [facility] 04-28-2023 08:00-0400 Body temperature 97.2 [degF] Evan May MD Work Phone: [facility] 04-28-2023 06:10-0400 Body height 178 cm Evan May MD Work Phone: [facility] 04-28-2023 06:10-0400 Body mass index (BMI) [Ratio] 34.47 kg/m2 Evan May MD Work Phone: [facility] 04-28-2023 06:10-0400 Body weight 109.2 kg Evan May MD Work Phone: [facility] 04-25-2023 15:50-0400 Diastolic blood pressure 74 mm[Hg] Evan May MD Work Phone: [facility] 04-25-2023 15:50-0400 Heart rate 88 /min Evan May MD Work Phone: [facility] 04-25-2023 15:50-0400 Systolic blood pressure 121 mm[Hg] Evan May MD Work Phone: [facility] 04-20-2023 08:33-0400 Body height 177.8 cm Osbaldo Magallanes MD Work Phone: [facility] 04-20-2023 08:33-0400 Body temperature 97.11 [degF] Osbaldo Magallanes MD Work Phone: [facility] 04-20-2023 08:33-0400 Body weight 106.59 kg Osbaldo Magalalnes MD Work Phone: [facility] 04-20-2023 08:33-0400 Diastolic blood pressure 77 mm[Hg] Osbaldo Magallanes MD Work Phone: [facility] 04-20-2023 08:33-0400 Heart rate 87 /min Osbaldo Magallanes MD Work Phone: [facility] 04-20-2023 08:33-0400 Respiratory rate 14 /min Osbaldo Magallanes MD Work Phone: [facility] 04-20-2023 08:33-0400 SaO2% (BldA) [Mass fraction] 98 % Osbaldo Magallanes MD Work Phone: [facility] 04-20-2023 08:33-0400 Systolic blood pressure 134 mm[Hg] Osbaldo Magallanes MD Work Phone: [facility] 04-11-2023 13:57-0500 Diastolic blood pressure 74 mm[Hg] Evan May MD Work Phone: [facility] 04-11-2023 13:57-0500 Heart rate 88 /min Evan May MD Work Phone: [facility] 04-11-2023 13:57-0500 Systolic blood pressure 121 mm[Hg] Evan May MD Work Phone: [facility] 11-29-2022 10:14-0400 Body height 177.8 cm Osbaldo Magallanes MD Work Phone: [facility] 11-29-2022 10:14-0400 Body temperature 97.81 [degF] Osbaldo Magallanes MD Work Phone: [facility] 11-29-2022 10:14-0400 Body weight 92.53 kg Osbaldo Magallanes MD Work Phone: [facility] 11-29-2022 10:14-0400 Diastolic blood pressure 82 mm[Hg] Osbaldo Magallanes MD Work Phone: [facility] 11-29-2022 10:14-0400 Heart rate 100 /min Osbaldo Magallanes MD Work Phone: [facility] 11-29-2022 10:14-0400 Respiratory rate 16 /min Osbaldo Magallanes MD Work Phone: [facility] 11-29-2022 10:14-0400 SaO2% (BldA) [Mass fraction] 96 % Osbaldo Magallanes MD Work Phone: [facility] 11-29-2022 10:14-0400 Systolic blood pressure 128 mm[Hg] Osbaldo Magallanes MD Work Phone: [facility] 11-12-2022 15:30-0400 Diastolic blood pressure 70 mm[Hg] Jose Hackett MD Work Phone: [facility] 11-12-2022 15:30-0400 Respiratory rate 16 /min Jose Hackett MD Work Phone: [facility] 11-12-2022 15:30-0400 SaO2% (BldA) [Mass fraction] 96 % Jose Hackett MD Work Phone: [facility] 11-12-2022 15:30-0400 Systolic blood pressure 118 mm[Hg] Jose Hackett MD Work Phone: [facility] 11-12-2022 15:20-0400 Heart rate 89 /min Jose Hackett MD Work Phone: [facility] 11-12-2022 14:00-0400 Body height 177.8 cm Jose Hackett MD Work Phone: [facility] 11-12-2022 14:00-0400 Body temperature 98.1 [degF] Jose Hackett MD Work Phone: [facility] 11-12-2022 14:00-0400 Body weight 92.53 kg Jose Hackett MD Work Phone: [facility] 10-26-2022 09:48-0400 Body weight 92.53 kg Shukri Juárez MD Work Phone: [facility] 10-26-2022 09:48-0400 Diastolic blood pressure 62 mm[Hg] Shukri Juárez MD Work Phone: [facility] 10-26-2022 09:48-0400 Heart rate 120 /min Shukri Juárez MD Work Phone: [facility] 10-26-2022 09:48-0400 Respiratory rate 16 /min Shukri Juárez MD Work Phone: [facility] 10-26-2022 09:48-0400 SaO2% (BldA) [Mass fraction] 98 % Shukri Juárez MD Work Phone: [facility] 10-26-2022 09:48-0400 Systolic blood pressure 108 mm[Hg] Shukri Juárez MD Work Phone: [facility] 10-21-2022 07:48-0400 Body height 177.8 cm Shay Florentino MD Work Phone: [facility] 10-21-2022 07:48-0400 Body temperature 97.59 [degF] Shay Florentino MD Work Phone: [facility] 10-21-2022 07:48-0400 Body weight 92.53 kg Shay Florentino MD Work Phone: [facility] 10-21-2022 07:48-0400 Diastolic blood pressure 81 mm[Hg] Shay Florentino MD Work Phone: [facility] 10-21-2022 07:48-0400 Heart rate 100 /min Shay Florentino MD Work Phone: [facility] 10-21-2022 07:48-0400 Respiratory rate 18 /min Shay Florentino MD Work Phone: [facility] 10-21-2022 07:48-0400 SaO2% (BldA) [Mass fraction] 98 % Shay Florentino MD Work Phone: [facility] 10-21-2022 07:48-0400 Systolic blood pressure 134 mm[Hg] Shay Florentino MD Work Phone: [facility] 10-04-2022 09:22-0400 Body height 177.8 cm Osbaldo Magallanes MD Work Phone: [facility] 10-04-2022 09:22-0400 Body temperature 97.2 [degF] Osbaldo Magallanes MD Work Phone: [facility] 10-04-2022 09:22-0400 Body weight 91.63 kg Osbaldo Magallanes MD Work Phone: [facility] 10-04-2022 09:22-0400 Diastolic blood pressure 86 mm[Hg] Osbaldo Magallanes MD Work Phone: [facility] 10-04-2022 09:22-0400 Heart rate 104 /min Osbaldo Magallanes MD Work Phone: [facility] 10-04-2022 09:22-0400 Respiratory rate 18 /min Osbaldo Magallanes MD Work Phone: [facility] 10-04-2022 09:22-0400 SaO2% (BldA) [Mass fraction] 99 % Osbaldo Magallanes MD Work Phone: [facility] 10-04-2022 09:22-0400 Systolic blood pressure 134 mm[Hg] Osbaldo Magallanes MD Work Phone: [facility] 09-03-2022 11:00-0400 Diastolic blood pressure 65 mm[Hg] Ousmane Waite MD Work Phone: [facility] 09-03-2022 11:00-0400 Heart rate 96 /min Ousmane Waite MD Work Phone: [facility] 09-03-2022 11:00-0400 Respiratory rate 18 /min Ousmane Waite MD Work Phone: [facility] 09-03-2022 11:00-0400 SaO2% (BldA) [Mass fraction] 98 % Ousmane Waite MD Work Phone: [facility] 09-03-2022 11:00-0400 Systolic blood pressure 129 mm[Hg] Ousmane Waite MD Work Phone: [facility] 09-03-2022 10:32-0400 Body temperature 98.1 [degF] Ousmane Waite MD Work Phone: [facility] 09-03-2022 08:03-0400 Body height 177.8 cm Ousmane Waite MD Work Phone: [facility] 09-03-2022 08:03-0400 Body weight 92.22 kg Ousmane Waite MD Work Phone: [facility] 08-28-2022 09:49-0400 Heart rate 83 /min Rudy Garland PT Work Phone: [facility] 08-28-2022 09:49-0400 Respiratory rate 16 /min Rudy Garland PT Work Phone: [facility] 07-22-2023 09:49-0400 SaO2% (BldA) [Mass fraction] 98 % Rudy Hermsen PT Work Phone: [facility] 08-28-2022 09:15-0400 Body temperature 98.49 [degF] Rudy Hermsen PT Work Phone: [facility] 08-28-2022 09:15-0400 Body weight 92.08 kg Rudy Hermsen PT Work Phone: [facility] 08-28-2022 09:15-0400 Diastolic blood pressure 78 mm[Hg] Rudy Hermsen PT Work Phone: [facility] 08-28-2022 09:15-0400 Systolic blood pressure 128 mm[Hg] Rudy Hermsen PT Work Phone: [facility] 08-26-2022 14:14-0400 Heart rate 117 /min Anisha Wrayn NUT ROASTER HELPER Work Phone: [facility] 08-26-2022 14:14-0400 SaO2% (BldA) [Mass fraction] 98 % Anisha Wrayn NUT ROASTER HELPER Work Phone: [facility] 08-26-2022 14:04-0400 Body temperature 97.7 [degF] Anisha Wrayn NUT ROASTER HELPER Work Phone: [facility] 08-26-2022 14:04-0400 Body weight 91.43 kg Anisha Wrayn NUT ROASTER HELPER Work Phone: [facility] 08-26-2022 14:04-0400 Diastolic blood pressure 68 mm[Hg] Anisha Wrayn NUT ROASTER HELPER Work Phone: [facility] 08-26-2022 14:04-0400 Systolic blood pressure 118 mm[Hg] Anisha Wrayn NUT ROASTER HELPER Work Phone: [facility] 08-26-2022 12:08-0400 Body temperature 97.81 [degF] Demarco Ball RN Work Phone: [facility] 08-26-2022 12:08-0400 Body weight 91.58 kg Demarco Ball RN Work Phone: [facility] 08-26-2022 12:08-0400 Diastolic blood pressure 70 mm[Hg] Demarco Ball RN Work Phone: [facility] 08-26-2022 12:08-0400 Heart rate 86 /min Demarco Ball RN Work Phone: [facility] 08-26-2022 12:08-0400 Respiratory rate 16 /min Demarco Ball RN Work Phone: [facility] 08-26-2022 12:08-0400 Systolic blood pressure 126 mm[Hg] Demarco Ball RN Work Phone: [facility] 08-25-2022 09:29-0400 Body height 177.8 cm Wilbert Umanzor MD Work Phone: [facility] 08-25-2022 09:29-0400 Body temperature 97.7 [degF] Wilbert Umanzor MD Work Phone: [facility] 08-25-2022 09:29-0400 Body weight 92.08 kg Wilbert Umanzor MD Work Phone: [facility] 08-25-2022 09:29-0400 Diastolic blood pressure 79 mm[Hg] Wilbert Umanzor MD Work Phone: [facility] 08-25-2022 09:29-0400 Heart rate 101 /min Wilbert Umanzor MD Work Phone: [facility] 08-25-2022 09:29-0400 Respiratory rate 18 /min Wilbert Umanzor MD Work Phone: [facility] 08-25-2022 09:29-0400 SaO2% (BldA) [Mass fraction] 98 % Wilbert Umanzor MD Work Phone: [facility] 08-25-2022 09:29-0400 Systolic blood pressure 118 mm[Hg] Wilbert Umanzor MD Work Phone: [facility] 08-24-2022 10:45-0400 Body height 177.8 cm Andegoni Sandalakis 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 SERVICE REPRESENTATIVE.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 MANAGER Work Phone: [facility] 08-24-2022 10:45-0400 Body temperature 98.2 [degF] Andegoni Sandalakis 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 SERVICE REPRESENTATIVE.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 MANAGER Work Phone: [facility] 08-24-2022 10:45-0400 Body weight 91.85 kg Andegoni Sandalakis 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 SERVICE REPRESENTATIVE.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 MANAGER Work Phone: [facility] 08-24-2022 10:45-0400 Diastolic blood pressure 74 mm[Hg] Andegoni Sandalakis 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 SERVICE REPRESENTATIVE.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 MANAGER Work Phone: [facility] 08-24-2022 10:45-0400 Heart rate 102 /min Andegoni Sandalakis 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 SERVICE REPRESENTATIVE.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 MANAGER Work Phone: [facility] 08-24-2022 10:45-0400 SaO2% (BldA) [Mass fraction] 98 % Andegoni Sandalakis 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 SERVICE REPRESENTATIVE.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 MANAGER Work Phone: [facility] 08-24-2022 10:45-0400 Systolic blood pressure 126 mm[Hg] Andegoni Sandalakis 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 SERVICE REPRESENTATIVE.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 MANAGER Work Phone: [facility] 08-23-2022 15:02-0400 Heart rate 115 /min Anisha Moody NUT ROASTER HELPER Work Phone: [facility] 08-23-2022 15:02-0400 SaO2% (BldA) [Mass fraction] 97 % Anisha Moody NUT ROASTER HELPER Work Phone: [facility] 08-23-2022 14:49-0400 Body temperature 97.81 [degF] Anisha Moody NUT ROASTER HELPER Work Phone: [facility] 08-23-2022 14:49-0400 Body weight 92.22 kg Anisha Moody NUT ROASTER HELPER Work Phone: [facility] 08-23-2022 14:49-0400 Diastolic blood pressure 58 mm[Hg] Anisha Moody NUT ROASTER HELPER Work Phone: [facility] 08-23-2022 14:49-0400 Systolic blood pressure 116 mm[Hg] Anisha Wrayn NUT ROASTER HELPER Work Phone: [facility] 08-21-2022 09:11-0400 Heart rate 103 /min Osbaldo Villavicencionz NUT ROASTER HELPER Work Phone: [facility] 08-21-2022 09:11-0400 SaO2% (BldA) [Mass fraction] 97 % Osbaldo Villavicencionz NUT ROASTER HELPER Work Phone: [facility] 08-21-2022 09:00-0400 Body temperature 98.01 [degF] Osbaldo Villavicencionz NUT ROASTER HELPER Work Phone: [facility] 08-21-2022 09:00-0400 Diastolic blood pressure 68 mm[Hg] Osbaldo Villavicencionz NUT ROASTER HELPER Work Phone: [facility] 08-21-2022 09:00-0400 Systolic blood pressure 120 mm[Hg] Osbaldo Villavicencionz NUT ROASTER HELPER Work Phone: [facility] 08-19-2022 14:57-0400 Heart rate 95 /min Anisha Kamalan NUT ROASTER HELPER Work Phone: [facility] 08-19-2022 14:57-0400 SaO2% (BldA) [Mass fraction] 96 % Anisha Bauernestorn NUT ROASTER HELPER Work Phone: [facility] 08-19-2022 14:35-0400 Body temperature 97.81 [degF] Anisha Wrayn NUT ROASTER HELPER Work Phone: [facility] 08-19-2022 14:35-0400 Body weight 91.88 kg Anisha Wrayn NUT ROASTER HELPER Work Phone: [facility] 08-19-2022 14:35-0400 Diastolic blood pressure 78 mm[Hg] Anisha Wrayn NUT ROASTER HELPER Work Phone: [facility] 08-19-2022 14:35-0400 Systolic blood pressure 122 mm[Hg] Anisha Wrayn NUT ROASTER HELPER Work Phone: [facility] 08-18-2022 11:33-0400 Body height 177.8 cm Andegoni Sandalakis 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 SERVICE REPRESENTATIVE.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 MANAGER Work Phone: [facility] 08-18-2022 11:33-0400 Body temperature 97.9 [degF] Andegoni Sandalakis 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 SERVICE REPRESENTATIVE.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 MANAGER Work Phone: [facility] 08-18-2022 11:33-0400 Body weight 91.08 kg Andegoni Sandalakis 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 SERVICE REPRESENTATIVE.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 MANAGER Work Phone: [facility] 08-18-2022 11:33-0400 Diastolic blood pressure 72 mm[Hg] Andegoni Sandalakis 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 SERVICE REPRESENTATIVE.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 MANAGER Work Phone: [facility] 08-18-2022 11:33-0400 Heart rate 102 /min Andegoni Sandalakis 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 SERVICE REPRESENTATIVE.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 MANAGER Work Phone: [facility] 08-18-2022 11:33-0400 SaO2% (BldA) [Mass fraction] 99 % Andegoni Sandalakis 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 SERVICE REPRESENTATIVE.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 MANAGER Work Phone: [facility] 08-18-2022 11:33-0400 Systolic blood pressure 116 mm[Hg] Andegoni Sandalakis 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 SERVICE REPRESENTATIVE.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 MANAGER Work Phone: [facility] 08-17-2022 14:02-0400 Heart rate 101 /min Keisha Chang OTR/L Work Phone: [facility] 08-17-2022 14:02-0400 SaO2% (BldA) [Mass fraction] 98 % Keisha Charlene OTR/L Work Phone: [facility] 08-17-2022 13:06-0400 Body temperature 98.4 [degF] Keisha Charlene OTR/L Work Phone: [facility] 08-17-2022 13:06-0400 Body weight 92.08 kg Keisha Chang OTR/L Work Phone: [facility] 08-17-2022 13:06-0400 Diastolic blood pressure 62 mm[Hg] Keisha Chang OTR/L Work Phone: [facility] 08-17-2022 13:06-0400 Respiratory rate 18 /min Keisha Chang OTR/L Work Phone: [facility] 08-17-2022 13:06-0400 Systolic blood pressure 126 mm[Hg] Keihsa Chang OTR/L Work Phone: [facility] 08-17-2022 12:53-0400 Body weight 92.08 kg Rudy Hermsen PT Work Phone: [facility] 08-17-2022 12:53-0400 Heart rate 96 /min Rudy Hermsen PT Work Phone: [facility] 08-17-2022 12:53-0400 Respiratory rate 16 /min Rudy Hermsen PT Work Phone: [facility] 08-17-2022 12:53-0400 SaO2% (BldA) [Mass fraction] 97 % Rudy Hermsen PT Work Phone: [facility] 08-17-2022 12:13-0400 Body temperature 98.4 [degF] Rudy Hermsen PT Work Phone: [facility] 08-17-2022 12:13-0400 Diastolic blood pressure 82 mm[Hg] Urdy Hermsen PT Work Phone: [facility] 08-17-2022 12:13-0400 Systolic blood pressure 126 mm[Hg] Rudy Hermsen PT Work Phone: [facility] 08-16-2022 14:44-0400 Body temperature 97.7 [degF] Mariya Adams RN Work Phone: [facility] 08-16-2022 14:44-0400 Body weight 92.99 kg Mariya Adams RN Work Phone: [facility] 08-16-2022 14:44-0400 Diastolic blood pressure 68 mm[Hg] Mariya Adams RN Work Phone: [facility] 08-16-2022 14:44-0400 Heart rate 93 /min Mariya Adams RN Work Phone: [facility] 08-16-2022 14:44-0400 Respiratory rate 18 /min Mariya Adams RN Work Phone: [facility] 08-16-2022 14:44-0400 SaO2% (BldA) [Mass fraction] 96 % Mariya Adams RN Work Phone: [facility] 08-16-2022 14:44-0400 Systolic blood pressure 128 mm[Hg] Mariya Adams RN Work Phone: [facility] 08-14-2022 11:17-0400 Diastolic blood pressure 62 mm[Hg] Dayami Fernando NUT ROASTER HELPER Work Phone: [facility] 08-14-2022 11:17-0400 Heart rate 104 /min Dayami Fernando NUT ROASTER HELPER Work Phone: [facility] 08-14-2022 11:17-0400 Respiratory rate 16 /min Dayami Fernando NUT ROASTER HELPER Work Phone: [facility] 08-14-2022 11:17-0400 SaO2% (BldA) [Mass fraction] 96 % Dayaim Fernando NUT ROASTER HELPER Work Phone: [facility] 08-14-2022 11:17-0400 Systolic blood pressure 120 mm[Hg] Dayami Fernando NUT ROASTER HELPER Work Phone: [facility] 08-14-2022 10:38-0400 Body temperature 98.01 [degF] Dayami Fernando NUT ROASTER HELPER Work Phone: [facility] 08-12-2022 11:07-0400 Diastolic blood pressure 60 mm[Hg] Olegario Burger PT Work Phone: [facility] 08-12-2022 11:07-0400 Heart rate 97 /min Olegario Burger PT Work Phone: [facility] 08-12-2022 11:07-0400 SaO2% (BldA) [Mass fraction] 95 % Olegario Burger PT Work Phone: [facility] 08-12-2022 11:07-0400 Systolic blood pressure 116 mm[Hg] Olegario Burger PT Work Phone: [facility] 08-12-2022 10:27-0400 Body temperature 98.01 [degF] Olegario Burger PT Work Phone: [facility] 08-12-2022 10:27-0400 Respiratory rate 16 /min Olegario Burger PT Work Phone: [facility] 08-11-2022 14:36-0400 Body height 177.8 cm Andegoni Sandalakis 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 SERVICE REPRESENTATIVE.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 MANAGER Work Phone: [facility] 08-11-2022 14:36-0400 Body temperature 97.81 [degF] Andegoni Sandalakis 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 SERVICE REPRESENTATIVE.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 MANAGER Work Phone: [facility] 08-11-2022 14:36-0400 Body weight 92.81 kg Andegoni Sandalakis 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 SERVICE REPRESENTATIVE.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 MANAGER Work Phone: [facility] 08-11-2022 14:36-0400 Diastolic blood pressure 64 mm[Hg] Andegoni Sandalakis 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 SERVICE REPRESENTATIVE.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 MANAGER Work Phone: [facility] 08-11-2022 14:36-0400 Heart rate 112 /min Andegoni Sandalakis 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 SERVICE REPRESENTATIVE.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 MANAGER Work Phone: [facility] 08-11-2022 14:36-0400 Respiratory rate 14 /min Andegoni Sandalakis 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 SERVICE REPRESENTATIVE.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 MANAGER Work Phone: [facility] 08-11-2022 14:36-0400 SaO2% (BldA) [Mass fraction] 96 % Andegoni Sandalakis 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 SERVICE REPRESENTATIVE.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 MANAGER Work Phone: [facility] 08-11-2022 14:36-0400 Systolic blood pressure 124 mm[Hg] Andegoni Sandalakis 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 SERVICE REPRESENTATIVE.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 MANAGER Work Phone: [facility] 08-11-2022 09:43-0400 Body height 176.5 cm Wilbert Umanzor MD Work Phone: [facility] 08-11-2022 09:43-0400 Body temperature 98.1 [degF] Wilbert Umanzor MD Work Phone: [facility] 08-11-2022 09:43-0400 Body weight 93.08 kg Wilbert Umanzor MD Work Phone: [facility] 08-11-2022 09:43-0400 Diastolic blood pressure 77 mm[Hg] Wilbert Umanzor MD Work Phone: [facility] 08-11-2022 09:43-0400 Heart rate 105 /min Wilbert Umanzor MD Work Phone: [facility] 08-11-2022 09:43-0400 Respiratory rate 18 /min Wilbert Umanzor MD Work Phone: [facility] 08-11-2022 09:43-0400 SaO2% (BldA) [Mass fraction] 97 % Wilbert Umanzor MD Work Phone: [facility] 08-11-2022 09:43-0400 Systolic blood pressure 120 mm[Hg] Wilbert Umanzor MD Work Phone: [facility] 08-08-2022 09:23-0400 Body height 177.8 cm Jim Saini RN Work Phone: [facility] 08-08-2022 09:23-0400 Body temperature 97.11 [degF] Jim Saini RN Work Phone: [facility] 08-08-2022 09:23-0400 Body weight 93.03 kg Jim Saini RN Work Phone: [facility] 08-08-2022 09:23-0400 Diastolic blood pressure 62 mm[Hg] Jim Saini RN Work Phone: [facility] 08-08-2022 09:23-0400 Heart rate 92 /min Jim Saini RN Work Phone: [facility] 08-08-2022 09:23-0400 Respiratory rate 17 /min Jim Saini RN Work Phone: [facility] 08-08-2022 09:23-0400 SaO2% (BldA) [Mass fraction] 95 % Jim Saini RN Work Phone: [facility] 08-08-2022 09:23-0400 Systolic blood pressure 116 mm[Hg] Jim Saini RN Work Phone: [facility] 06-02-2022 11:00-0400 Body height 176.5 cm Pulm Addon Work Phone: [facility] 06-02-2022 11:00-0400 Body weight 99.56 kg Pulm Addon Work Phone: [facility] 02-25-2022 09:59-0500 Diastolic blood pressure 57 mm[Hg] Ashley Newmananda PA-C Work Phone: [facility] 02-25-2022 09:59-0500 Heart rate 67 /min Ashley Kate PA-C Work Phone: [facility] 02-25-2022 09:59-0500 SaO2% (BldA) [Mass fraction] 99 % Ashley Kate PA-C Work Phone: [facility] 02-25-2022 09:59-0500 Systolic blood pressure 100 mm[Hg] Ashley Kate PA-C Work Phone: [facility] 02-24-2022 13:01-0500 Body height 176.5 cm Pulm 8 [facility] 02-24-2022 13:01-0500 Body temperature 97.9 [degF] Wilbert Umanzor MD Work Phone: [facility] 02-24-2022 13:01-0500 Body weight 104.6 kg Pulm 8 [facility] 02-24-2022 13:01-0500 Diastolic blood pressure 69 mm[Hg] Wilbert Umanzor MD Work Phone: [facility] 02-24-2022 13:01-0500 Heart rate 90 /min Wilbert Umanzor MD Work Phone: [facility] 02-24-2022 13:01-0500 Respiratory rate 16 /min Wilbert Umanzor MD Work Phone: [facility] 02-24-2022 13:01-0500 SaO2% (BldA) [Mass fraction] 96 % Wilbert Umanzor MD Work Phone: [facility] 02-24-2022 13:01-0500 Systolic blood pressure 126 mm[Hg] Wilbert Umanzor MD Work Phone: [facility] 02-22-2022 09:04-0500 Body height 177.8 cm Fozia Aburto [facility] 02-22-2022 09:04-0500 Body weight 106.[address] [facility] 02-22-2022 07:52-0500 Diastolic blood pressure 69 mm[Hg] Markos Burgos MD Work Phone: [facility] 02-22-2022 07:52-0500 Systolic blood pressure 120 mm[Hg] Makros Burgos MD Work Phone: [facility] 02-22-2022 07:51-0500 Body height 177.8 cm Markos Burgos MD Work Phone: [facility] 02-22-2022 07:51-0500 Body weight 105.69 kg Markos Burgos MD Work Phone: [facility] 02-22-2022 07:51-0500 Heart rate 73 /min Markos Burgos MD Work Phone: [facility] 02-22-2022 07:51-0500 Respiratory rate 12 /min Markos Burgos MD Work Phone: [facility] 02-22-2022 07:51-0500 SaO2% (BldA) [Mass fraction] 97 % Markos Burgos MD Work Phone: [facility] 02-02-2022 09:19-0500 Body weight 105.69 kg Shukri Juárez MD Work Phone: [facility] 02-02-2022 09:19-0500 Diastolic blood pressure 72 mm[Hg] Shukri Juárez MD Work Phone: [facility] 02-02-2022 09:19-0500 Heart rate 81 /min Shukri Juárez MD Work Phone: [facility] 02-02-2022 09:19-0500 Respiratory rate 16 /min Shukri Juárez MD Work Phone: [facility] 02-02-2022 09:19-0500 SaO2% (BldA) [Mass fraction] 96 % Shukri Juárez MD Work Phone: [facility] 02-02-2022 09:19-0500 Systolic blood pressure 118 mm[Hg] Shukri Juárez MD Work Phone: [facility] 11-18-2021 13:03-0400 Body height 176.5 cm Pulm 4 [facility] 11-18-2021 13:03-0400 Body temperature 97.3 [degF] Wilbert Umanzor MD Work Phone: [facility] 11-18-2021 13:03-0400 Body weight 107.05 kg Pulm 4 [facility] 11-18-2021 13:03-0400 Diastolic blood pressure 62 mm[Hg] Wilbert Umanzor MD Work Phone: [facility] 11-18-2021 13:03-0400 Heart rate 75 /min Wilbert Umanzor MD Work Phone: [facility] 11-18-2021 13:03-0400 Respiratory rate 18 /min Wilbert Umanzor MD Work Phone: [facility] 11-18-2021 13:03-0400 SaO2% (BldA) [Mass fraction] 98 % Wilbert Umanzor MD Work Phone: [facility] 11-18-2021 13:03-0400 Systolic blood pressure 135 mm[Hg] Wilbert Umanzor MD Work Phone: [facility] 11-18-2021 08:55-0400 Body temperature 97.3 [degF] Darryl Willis MD Work Phone: [facility] 11-18-2021 08:55-0400 Body weight 107.23 kg Darryl Willis MD Work Phone: [facility] 11-18-2021 08:55-0400 Diastolic blood pressure 62 mm[Hg] Darryl Willis MD Work Phone: [facility] 11-18-2021 08:55-0400 Heart rate 75 /min Darryl Willis MD Work Phone: [facility] 11-18-2021 08:55-0400 Respiratory rate 18 /min Darryl Willis MD Work Phone: [facility] 11-18-2021 08:55-0400 SaO2% (BldA) [Mass fraction] 98 % Darryl Willis MD Work Phone: [facility] 11-18-2021 08:55-0400 Systolic blood pressure 135 mm[Hg] Darryl Willis MD Work Phone: [facility] 11-03-2021 09:41-0400 Diastolic blood pressure 76 mm[Hg] Nurse Jose Work Phone: [facility] 11-03-2021 09:41-0400 Heart rate 104 /min Nurse Jose Work Phone: [facility] 11-03-2021 09:41-0400 SaO2% (BldA) [Mass fraction] 90 % Nurse Jose Work Phone: [facility] 11-03-2021 09:41-0400 Systolic blood pressure 165 mm[Hg] Nurse Jose Work Phone: [facility] 09-22-2021 09:47-0400 Diastolic blood pressure 58 mm[Hg] Nurse Work Phone: [facility] 09-22-2021 09:47-0400 Heart rate 96 /min Nurse Work Phone: [facility] 09-22-2021 09:47-0400 SaO2% (BldA) [Mass fraction] 94 % Nurse Work Phone: [facility] 09-22-2021 09:47-0400 Systolic blood pressure 159 mm[Hg] Nurse Work Phone: [facility] 08-25-2021 11:55-0400 Diastolic blood pressure 54 mm[Hg] Nurse Work Phone: [facility] 08-25-2021 11:55-0400 Heart rate 69 /min Nurse Work Phone: [facility] 08-25-2021 11:55-0400 SaO2% (BldA) [Mass fraction] 94 % Nurse Work Phone: [facility] 08-25-2021 11:55-0400 Systolic blood pressure 124 mm[Hg] Nurse Work Phone: [facility] 08-11-2021 11:46-0400 Diastolic blood pressure 67 mm[Hg] Nurse Work Phone: [facility] 08-11-2021 11:46-0400 Heart rate 94 /min Nurse Work Phone: [facility] 08-11-2021 11:46-0400 SaO2% (BldA) [Mass fraction] 94 % Nurse Work Phone: [facility] 08-11-2021 11:46-0400 Systolic blood pressure 98 mm[Hg] Nurse Work Phone: [facility] 07-30-2021 10:34-0400 Body weight 107.05 kg Shukri Juárez MD Work Phone: [facility] 07-30-2021 10:34-0400 Diastolic blood pressure 82 mm[Hg] Shukri Juárez MD Work Phone: [facility] 07-30-2021 10:34-0400 Heart rate 85 /min Shukri Juárez MD Work Phone: [facility] 07-30-2021 10:34-0400 Respiratory rate 17 /min Shukri Juárez MD Work Phone: [facility] 07-30-2021 10:34-0400 SaO2% (BldA) [Mass fraction] 96 % Shukri Juárez MD Work Phone: [facility] 07-30-2021 10:34-0400 Systolic blood pressure 122 mm[Hg] Shukri Juárez MD Work Phone: [facility] 07-28-2021 10:12-0400 Body temperature 98.4 [degF] Nurse Main Work Phone: [facility] 07-28-2021 10:12-0400 Diastolic blood pressure 69 mm[Hg] Nurse Main Work Phone: [facility] 07-28-2021 10:12-0400 Heart rate 78 /min Nurse Main Work Phone: [facility] 07-28-2021 10:12-0400 Respiratory rate 22 /min Nurse Main Work Phone: [facility] 07-28-2021 10:12-0400 SaO2% (BldA) [Mass fraction] 98 % Nurse Main Work Phone: [facility] 07-28-2021 10:12-0400 Systolic blood pressure 135 mm[Hg] Nurse Main Work Phone: [facility] 07-22-2021 16:00-0400 Body height 176.5 cm Pulm 8 [facility] 07-22-2021 16:00-0400 Body weight 108.95 kg Pulm 8 [facility] 06-26-2021 12:40-0400 Body height 177.8 cm Darryl Willis MD Work Phone: [facility] 06-26-2021 12:40-0400 Body temperature 96.1 [degF] Darryl Willis MD Work Phone: [facility] 06-26-2021 12:40-0400 Body weight 110.68 kg Darryl Willis MD Work Phone: [facility] 06-26-2021 12:40-0400 Diastolic blood pressure 66 mm[Hg] Darryl Willis MD Work Phone: [facility] 06-26-2021 12:40-0400 Heart rate 69 /min Darryl Willis MD Work Phone: [facility] 06-26-2021 12:40-0400 SaO2% (BldA) [Mass fraction] 98 % Darryl Willis MD Work Phone: [facility] 06-26-2021 12:40-0400 Systolic blood pressure 133 mm[Hg] Darryl Willis MD Work Phone: [facility] 05-20-2021 07:50-0400 Body height 177.8 cm Darryl Willis MD Work Phone: [facility] 05-20-2021 07:50-0400 Body temperature 97.9 [degF] Darryl Willis MD Work Phone: [facility] 05-20-2021 07:50-0400 Body weight 113.4 kg Darryl Willis MD Work Phone: [facility] 05-20-2021 07:50-0400 Diastolic blood pressure 60 mm[Hg] Darryl Willis MD Work Phone: [facility] 05-20-2021 07:50-0400 Heart rate 70 /min Darryl Willis MD Work Phone: [facility] 05-20-2021 07:50-0400 SaO2% (BldA) [Mass fraction] 94 % Darryl Willis MD Work Phone: [facility] 05-20-2021 07:50-0400 Systolic blood pressure 121 mm[Hg] Darryl Willis MD Work Phone: [facility] 10-24-2019 13:16-0400 Body weight 113.[address] [facility] 10-24-2019 13:16-0400 BP Diastolic 82 mm[Hg] [facility] 10-24-2019 13:16-0400 BP Systolic 171 mm[Hg] [facility] 10-24-2019 13:16-0400 Pulse (Heart Rate) 78 /min [facility] 10-24-2019 13:16-0400 Pulse Oximetry 94 % [facility] Comment on above: 2L 10-24-2019 13:16-0400 Respiratory Rate 20 /min [facility] 04-19-2019 11:06-0400 Body weight 114.31 kg [facility] 04-19-2019 11:06-0400 BP Diastolic 72 mm[Hg] [facility] 04-19-2019 11:06-0400 BP Systolic 138 mm[Hg] [facility] 04-19-2019 11:06-0400 Pulse (Heart Rate) 69 /min [facility] 04-19-2019 11:06-0400 Pulse Oximetry 93 % [facility] 04-19-2019 11:06-0400 Respiratory Rate 16 /min [facility] 02-27-2019 13:54-0500 Body weight 107.05 kg [facility] 02-27-2019 13:54-0500 BP Diastolic 60 mm[Hg] [facility] 02-27-2019 13:54-0500 BP Systolic 116 mm[Hg] [facility] 02-27-2019 13:54-0500 Pulse (Heart Rate) 93 /min [facility] 02-27-2019 13:54-0500 Pulse Oximetry 93 % [facility] Comment on above: 3L 02-27-2019 13:54-0500 Respiratory Rate 20 /min [facility] 01-22-2019 11:23-0500 Body weight 112.49 kg [facility] 01-22-2019 11:23-0500 BP Diastolic 74 mm[Hg] [facility] 01-22-2019 11:23-0500 BP Systolic 114 mm[Hg] [facility] 01-22-2019 11:23-0500 Pulse (Heart Rate) 74 /min [facility] 01-22-2019 11:23-0500 Pulse Oximetry 93 % [facility] Comment on above: 2L 01-22-2019 11:23-0500 Respiratory Rate 18 /min [facility] 08-23-2018 10:16-0400 BP Diastolic 60 mm[Hg] [facility] 08-23-2018 10:16-0400 BP Systolic 127 mm[Hg] [facility] 08-23-2018 10:16-0400 Pulse (Heart Rate) 68 /min [facility] 08-23-2018 10:16-0400 Pulse Oximetry 93 % [facility] 08-23-2018 10:16-0400 Respiratory Rate 18 /min [facility] 08-23-2018 10:13-0400 Body weight 114.76 kg [facility] 04-19-2018 09:48-0400 BP Diastolic 62 mm[Hg] [facility] 04-19-2018 09:48-0400 BP Systolic 120 mm[Hg] [facility] 04-19-2018 09:48-0400 Pulse (Heart Rate) 74 /min [facility] 04-19-2018 09:48-0400 Pulse Oximetry 92 % [facility] 04-19-2018 09:48-0400 Respiratory Rate 18 /min [facility] 04-19-2018 09:48-0400 Weight 126.1 kg [facility] 09-29-2017 14:23-0400 BP Diastolic 70 mm[Hg] [facility] 09-29-2017 14:23-0400 BP Systolic 158 mm[Hg] [facility] 09-29-2017 14:23-0400 Pulse (Heart Rate) 81 /min [facility] 09-29-2017 14:0400 Pulse Oximetry 93 % Shukri [facility] 09-29-2017 14:-0400 Respiratory Rate 18 /min Shukri [facility] 09-29-2017 14:-0400 Weight 124[address] [facility] Encounters Encounter Date Encounter Type Care Provider Facility Start: 12-11-2024 End: 12-11-2024 ambulatory MOON TOMLINSON Facility:[facility] Start: 12-10-2024 End: 12-10-2024 ambulatory OSBALDO MAGALLANES Facility:[facility] Start: 11-27-2024 End: 11-27-2024 ambulatory OSBALDO MAGALLANES Facility:[facility] Start: 11-27-2024 End: 11-27-2024 ambulatory OSBALDO [facility] Facility:[facility] Start: 11-12-2024 End: 11-12-2024 ambulatory OSBALDO [facility] Facility:[facility] Start: 11-07-2024 ambulatory Best Lauren Facility:[facility] Start: 11-07-2024 End: 11-07-2024 ambulatory Keshav Phillips Facility:[facility] Start: 10-30-2024 End: 10-30-2024 ambulatory TORRES KIRKPATRICK Facility:[facility] Start: 10-25-2024 End: 10-25-2024 ambulatory ASHLEY JIN Facility:[facility] Start: 10-24-2024 End: 10-24-2024 Refill Shukri Djukic [facility] Home Delivery - Compliance Start: 10-22-2024 End: 10-22-2024 Refill Shukri Djukic [facility] Home Delivery - Compliance Start: 10-18-2024 End: 10-19-2024 Follow-up encounter Keshav Phillips APRN.CNP Work Phone: [facility] Comment on above: Results Start: 10-16-2024 End: 10-16-2024 Patient encounter procedure Keshav Phillips APRN.CNP Work Phone: [facility] Comment on above: Diarrhea, unspecifie d type (Primary Dx) Start: 10-16-2024 End: 10-16-2024 ambulatory Keshav Phillips 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 SERVICE REPRESENTATIVE.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 MANAGER Work Phone: [facility] [place] Comment on above: Diarrhea Start: 10-15-2024 End: 10-15-2024 ambulatory OSBALDO ELPIDIO Facility:[facility] Start: 10-10-2024 End: 10-10-2024 Telephone encounter Devi ([facility]) [facility] Comment on above: Standing Labs Start: 10-09-2024 End: 10-09-2024 ambulatory No Primary Care Physician -Sleep Lab Start: 10-09-2024 End: 10-09-2024 Patient encounter procedure Fara Lozoya NP-C -Sleep Lab Work Phone: Start: 10-09-2024 End: 10-09-2024 ambulatory Keshav Phillips Facility:[facility] Start: 10-03-2024 End: 10-23-2024 Telephone encounter Moon Tomlinson DO Work Phone: Orthopaedics Comment on above: External Referrals/r esources (Physical Therapy ([place])) Start: 10-02-2024 End: 10-02-2024 ambulatory Himanshu Oviedo PT [place] [facility] Comment on above: Primary osteoarthrit is of right knee (Primary Dx) Start: 10-01-2024 End: 10-01-2024 Telephone encounter Lung Post Tx Main Work Phone: Pulmonary Medicine Comment on above: Follow Up; Returning Patient's Call Start: 09-27-2024 End: 09-27-2024 Patient encounter procedure Fara OSPINA -[place] [facility] Work Phone: Start: 09-27-2024 End: 09-27-2024 ambulatory No Primary Care Physician -[place] [facility] Start: 09-26-2024 End: 09-26-2024 [facility] [place] Start: 09-26-2024 End: 09-26-2024 Patient encounter procedure Deedee Chance MA [facility] [place] Comment on above: Population Health Na vigation Outreach ([place]/Workbench/ACO ) Start: 09-25-2024 End: 09-25-2024 Patient encounter procedure Moon Tomlinson DO Work Phone: Orthopaedics Comment on above: Primary osteoarthrit is of right knee (Primary Dx); 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 (HCC); care home (current) use of systemic steroids Start: 09-25-2024 End: 09-25-2024 ambulatory MOON TOMLINSON Facility:[facility] Start: 09-25-2024 End: 09-25-2024 Subsequent hospital visit by physician Xr [facility] Comment on above: Primary osteoarthrit is of right knee [M17.11] Start: 09-24-2024 End: 09-24-2024 Refill Lung Post Tx Main Work Phone: Pulmonary Medicine Start: 09-13-2024 End: 09-18-2024 Follow-up encounter Keshav Phillips APRN.CNP Work Phone: [facility] [place] Start: 09-11-2024 End: 09-11-2024 Telephone encounter Lung Post Tx Main Work Phone: Pulmonary Medicine Comment on above: Urgent - Standing La b Orders Needed Start: 09-11-2024 End: 09-11-2024 ambulatory KESHAV PHILLIPS Facility:[facility] Start: 09-10-2024 End: 09-10-2024 Telephone encounter Lung Post Tx Main Work Phone: Transplant Center Comment on above: Returning Patient's Call Start: 09-05-2024 End: 09-06-2024 Refill Keshav Phillips APRN.CNP Work Phone: [facility] [place] Comment on above: Refill Request Start: 09-03-2024 End: 09-03-2024 Patient encounter status Keshav Phillips APRN.CNP Work Phone: [facility] Start: 09-03-2024 End: 09-03-2024 ambulatory KESHAV PHILLIPS Facility:[facility] Start: 09-03-2024 Encounter for genera l adult medical examination without abnormal findings KESHAV PHILLIPS [facility] Start: 09-03-2024 End: 09-03-2024 Patient encounter procedure Keshav Phillips APRN.CNP Work Phone: [facility] [place] Comment on above: Wellness examination (Primary Dx); Screening for depression; Encounter for screening examination for other mental health and behavioral disorders; JODY (generalized anxiety disorder); ED (erectile dysfunction) of organic origin; Primary osteoarthritis of right knee; Essential hypertension; Gastroesophageal reflux disease without esophagitis; 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; Screening for diabetes mellitus; Medicare annual wellness visit, subsequent Start: 08-15-2024 End: 08-15-2024 Refill Lung Post Tx Main Work Phone: Pulmonary Medicine Comment on above: Rx Refills Start: 08-15-2024 End: 08-15-2024 Refill Wilbert Umanzor MD Work Phone: Pulmonary Medicine Comment on above: Refill Request Start: 08-14-2024 End: 08-14-2024 Refill Lung Post Tx Main Work Phone: Pulmonary Medicine Comment on above: Rx Refills Start: 08-13-2024 End: 08-13-2024 Telephone encounter Lung Post Tx Main Work Phone: Pulmonary Medicine Comment on above: Results Start: 08-09-2024 End: 08-09-2024 ambulatory WILBERT UMANZOR Facility:[facility] Start: 07-19-2024 End: 07-19-2024 Orders Only Jim Nunez [facility] Trans[facility] Comment on above: Pain (Primary Dx) Start: 07-18-2024 End: 07-18-2024 Telephone encounter Bety Burrell RN Pulmonary Medicine Comment on above: Results Start: 07-17-2024 End: 07-17-2024 Telephone encounter Devi ([facility]) [place] Pulmonary Medicine Comment on above: Medical Records (Areli matology appointment) Start: 07-17-2024 End: 07-17-2024 Patient encounter procedure Pulm Fct Lab Main 1 Work Phone: Pulmonary Medicine Comment on above: Aftercare following organ transplant (Primary Dx); 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; Encounter for monitoring tacrolimus therapy; Essential hypertension; Mixed hyperlipidemia; Gastroesophageal reflux disease without esophagitis; Steroid-induced osteopenia; Obesity, Class II, BMI 35-39.9; Other chronic pain; 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) Refill Request Start: 07-17-2024 End: 07-17-2024 Subsequent hospital visit by physician Xr Chest Main A21 Radiology Comment on above: Aftercare following organ transplant [Z48.298] Start: 07-17-2024 End: 07-17-2024 ambulatory Pulm Fct Lab Main 1 Work Phone: Pulmonary Medicine Comment on above: Spirometry Start: 07-04-2024 End: 07-04-2024 Telephone encounter Lung Post Tx Main Work Phone: Pulmonary Medicine Comment on above: Results Start: 07-03-2024 End: 07-03-2024 Refill Osbaldo Magallanes MD Work Phone: Pulmonary Medicine Comment on above: Refill Request Start: 06-19-2024 End: 06-19-2024 Telephone encounter Lung Post Tx Main Work Phone: Pulmonary Medicine Comment on above: Results Start: 06-18-2024 End: 06-18-2024 ambulatory SAMEEP ERNA Facility:[facility] Start: 06-11-2024 End: 06-11-2024 ambulatory Deedee Chance MA [place] [facility] Start: 06-11-2024 End: 06-11-2024 Patient encounter procedure Deedee Chance MA [facility] Comment on above: Population Health Na vigation Outreach ([place]/Workbench/ACO ) Start: 06-06-2024 End: 06-06-2024 Refill Osbaldo Magallanes MD Work Phone: Pulmonary Medicine Comment on above: Refill Request Start: 06-05-2024 End: 06-05-2024 Telephone encounter Lung Post Tx Main Work Phone: Pulmonary Medicine Comment on above: Results Start: 06-04-2024 End: 06-04-2024 ambulatory SAMEEP ERNA Facility:[facility] Start: 05-31-2024 End: 05-31-2024 ambulatory KESHAV PHILLIPS Facility:[facility] Start: 05-17-2024 End: 05-17-2024 ambulatory CONCHITA MARTEL [facility] Start: 05-10-2024 End: 05-10-2024 Refill Grant Ashley [facility] Home Delivery - Compliance Comment on above: Refill Request Start: 05-08-2024 End: 05-08-2024 Telephone encounter Lung Post Tx Main Work Phone: Pulmonary Medicine Comment on above: Results Start: 05-07-2024 End: 05-07-2024 ambulatory No Primary Care Physician [facility] Work Phone: Start: 05-07-2024 End: 05-07-[address] Leila Veras MD -Laboratory Work Phone: Start: 05-07-2024 End: 05-07-2024 ambulatory SAMEEP ERNA Facility:[facility] Start: 05-07-2024 End: 05-07-2024 ambulatory No Primary Care Physician Facility:[facility] Start: 04-30-2024 End: 04-30-2024 Orders Only Conchita Martel MD Work Phone: Pain Management Comment on above: Primary osteoarthrit is of right knee (Primary Dx) Chronic pain of righ t knee (Primary Dx); Primary osteoarthritis of right knee Start: 04-24-2024 End: 04-24-2024 Chart abstracting Nick Saravia Research Coordinator Pulmonary Medicine Comment on above: Research (IRB # [id number] [facility] Lung Transplant Biorepository /) Start: 04-24-2024 End: 04-24-2024 E-mail encounter from caregiver [facility] Provider Pain Management Start: 04-24-2024 End: 04-24-2024 Telephone encounter Shira Escobar RN Pulmonary Medicine Comment on above: Results Start: 04-24-2024 End: 04-24-2024 Patient encounter procedure Osbaldo Magallanes MD Work Phone: Pulmonary Medicine Comment on above: Aftercare following organ transplant (Primary Dx); 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; Encounter for monitoring tacrolimus therapy; Essential hypertension; Mixed hyperlipidemia; Steroid-induced osteopenia; Gastroesophageal reflux disease without esophagitis Start: 04-24-2024 End: 04-24-2024 Patient encounter procedure Pulm Fct Lab Main 9 Pulmonary Medicine Comment on above: Steroid-induced oste openia (Primary Dx); 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, bilateral (HCC); 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; Vitamin D deficiency; terminal block assembler (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) use 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; Elevated alkaline phosphatase level Instructions & Requi rements for Your Upcoming Appointment Start: 04-24-2024 End: 04-24-2024 ambulatory Pulm Fct Lab Main 9 Pulmonary Medicine Comment on above: Spirometry Start: 04-24-2024 End: 04-24-2024 ambulatory [facility] Facility:[facility] Start: 04-24-2024 End: 04-24-2024 Subsequent hospital visit by physician Xr Chest Main A21 Radiology Comment on above: Aftercare following organ transplant [Z48.298] Start: 04-24-2024 End: 04-24-2024 Critical access hospital Facility:[facility] Start: 04-20-2024 End: 04-20-2024 Chart abstracting Domi Cordoba MD Work Phone: Pulmonary Medicine Start: 04-20-2024 End: 04-20-2024 Patient entered into trial Domi Cordoba MD Work Phone: [facility] Start: 04-03-2024 End: 04-03-2024 Telephone encounter Lung Post Tx Main Work Phone: Pulmonary Medicine Comment on above: Results Start: 04-02-2024 End: 04-02-2024 ambulatory WILBERT UMANZOR Facility:[facility] Start: 03-30-2024 End: 03-30-2024 ambulatory TIMOTHY BEST Facility:[facility] Start: 03-30-2024 End: 03-30-2024 Patient encounter procedure Timothy Best DO Work Phone: [facility] Comment on above: Primary osteoarthrit is of right knee (Primary Dx) Start: 03-22-2024 End: 03-22-2024 Telephone encounter Lung Post Tx Main Work Phone: Pulmonary Medicine Comment on above: Return Call Request; Question; Returning Patient's Call Start: 03-19-2024 End: 03-19-2024 Telephone encounter Lung Post Tx Main Work Phone: Pulmonary Medicine Comment on above: Erroneous encounter- disregard Start: 03-13-2024 End: 03-13-2024 Refill Osbaldo Magallanes MD Work Phone: Pulmonary Medicine Comment on above: Refill Request Start: 03-06-2024 End: 03-06-2024 Telephone encounter Lung Post Tx Main Work Phone: Pulmonary Medicine Comment on above: Results Start: 03-05-2024 End: 03-05-2024 ambulatory SAMEDELIO ERNA Facility:[facility] Start: 03-02-2024 End: 03-02-2024 ambulatory TIMOTHY BEST Facility:[facility] Start: 03-02-2024 End: 03-02-2024 Patient encounter procedure Timothy Best DO Work Phone: [facility] Comment on above: Primary osteoarthrit is of right knee (Primary Dx) Start: 02-14-2024 End: 02-14-2024 Telephone encounter Lung Post Tx Main Work Phone: Pulmonary Medicine Comment on above: Results Start: 02-13-2024 End: 02-13-2024 ambulatory SAMEEP ERNA Facility:[facility] Start: 02-10-2024 End: 02-10-2024 ambulatory Ashley Kate REYES Work Phone: [facility] Comment on above: Steroid-induced oste openia (Primary Dx); 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, bilateral (HCC); care home current use of systemic steroids Start: 02-10-2024 End: 02-10-2024 Telemedicine consultation with patient Ashley Jin ERIC Work Phone: [facility] Start: 02-06-2024 End: 02-21-2024 Telephone encounter Timothy Nasir DO Work Phone: [facility] [place] Comment on above: Patient Question Start: 01-30-2024 End: 01-31-2024 Refill Wilbert Umanzor MD Work Phone: Pulmonary Medicine Comment on above: Refill Request Start: 01-19-2024 End: 01-19-2024 Chart abstracting Nick Saravia Research Coordinator Pulmonary Medicine Comment on above: Research (IRB # [id number] [phone] [facility] Lung Transplant Biorepository) Start: 01-19-2024 End: 01-19-2024 E-mail encounter from caregiver Shira Escobar RN Pulmonary Medicine Start: 01-19-2024 End: 01-19-2024 ambulatory Pulm Fct Lab Main 7 Pulmonary Medicine Comment on above: Spirometry lab results Start: 01-19-2024 End: 01-19-2024 Patient encounter procedure Pulm Fct Lab Main 7 Pulmonary Medicine Comment on above: Aftercare following organ transplant (Primary Dx); 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; Encounter for monitoring tacrolimus therapy; Essential hypertension; Mixed hyperlipidemia; Steroid-induced osteopenia; Gastroesophageal reflux disease without esophagitis; Obesity, Class II, BMI 35-39.9 Start: 01-19-2024 End: 01-19-2024 ambulatory OSBALDO MAGALLANES Facility:[facility] Start: 01-19-2024 End: 01-19-2024 Subsequent hospital visit by physician Xr Chest Main A21 Radiology Comment on above: Aftercare following organ transplant [Z48.298] Start: 01-19-2024 End: 01-19-2024 ambulatory OSBALDO MAGALLANES Facility:[facility] Start: 01-19-2024 Encounter for examnuvia ation for normal comparison and control in clinical research program TIMOTHY BEST [facility] Start: 01-18-2024 End: 01-18-2024 Patient entered into trial Domi Cordoba MD Work Phone: [facility] Start: 01-18-2024 End: 01-18-2024 ambulatory TIMOTHY BEST Facility:[facility] Start: 01-18-2024 End: 01-18-2024 Patient encounter procedure Timothy Best DO Work Phone: [facility] Comment on above: Osteoarthritis of ri ght knee, unspecified osteoarthritis type (Primary Dx); Acute pain of right knee Research study patie nt (Primary Dx) Start: 01-10-2024 End: 01-10-2024 Orders Only Osbaldo Magallanes MD Work Phone: Pulmonary Medicine Comment on above: Encounter for monito ring tacrolimus therapy (Primary Dx); Aftercare following organ transplant; Steroid-induced osteopenia; Current chronic use of systemic steroids Start: 01-09-2024 End: 01-09-2024 Telephone encounter Keshav Phillips APRN.CNP Work Phone: [facility] Comment on above: Results Start: 01-03-2024 End: 01-03-2024 Subsequent hospital visit by physician Nancy [facility] Castaneda Work Phone: Radiology Comment on above: Acute pain of right knee [M25.561] Start: 01-03-2024 End: 01-03-2024 Patient encounter procedure Keshav Phillips APRN.CNP Work Phone: [facility] Comment on above: Acute pain of right knee (Primary Dx); JODY (generalized anxiety disorder); ED (erectile dysfunction) of organic origin Start: 01-03-2024 End: 01-03-2024 ambulatory KESHAV PHILLIPS Facility:[facility] Start: 12-27-2023 End: 12-27-2023 Telephone encounter Lung Post Tx Main Work Phone: Pulmonary Medicine Comment on above: Results Start: 12-26-2023 End: 12-26-2023 ambulatory WILBERT UMANZOR Facility:[facility] Start: 12-06-2023 End: 12-06-2023 Telephone encounter Lung Post Tx Main Work Phone: Pulmonary Medicine Comment on above: Results Start: 11-23-2023 End: 11-23-2023 Refill Dionna Arreaga PA-C Work Phone: Pulmonary Medicine Comment on above: Refill Request Start: 11-22-2023 End: 11-22-2023 Patient encounter procedure Keshav Phillips APRN.CNP Work Phone: [facility] Comment on above: ED (erectile dysfunc tion) of organic origin (Primary Dx); JODY (generalized anxiety disorder) Start: 11-21-2023 End: 11-21-2023 Telephone encounter Lung Post Tx Main Work Phone: Pulmonary Medicine Comment on above: Results (A0B0) Start: 11-17-2023 End: 11-17-2023 Telephone encounter Serina COLE Admitting Comment on above: pre op bronch (Sched uled and confirmed with patient. ) Start: 11-14-2023 End: 11-14-2023 Telephone encounter Serina COLE Admitting Comment on above: pre op bronch (Sched uled and confirmed with patient. ) Appointment Start: 11-11-2023 End: 11-11-2023 Refill Keshav Phillips APRN.CNP Work Phone: [facility] Comment on above: Refill Request Start: 11-10-2023 End: 11-10-2023 E-mail encounter from caregiver [facility] Start: 11-10-2023 End: 11-17-2023 Preprocedural examination done Nick Mccoy MD Work Phone: [facility] Start: 11-10-2023 End: 11-17-2023 ambulatory Pulm Fct Lab Main 4 Pulmonary Medicine Comment on above: Spirometry Lab Results Preoperative examina tion (Primary Dx); 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) Start: 11-10-2023 End: 11-10-2023 Patient encounter procedure Pulm Fct Lab Main 4 Pulmonary Medicine Comment on above: Aftercare following organ transplant (Primary Dx); 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; Encounter for monitoring tacrolimus therapy; Essential hypertension; Mixed hyperlipidemia; Steroid-induced osteopenia; Gastroesophageal reflux disease without esophagitis; Obesity, Class II, BMI 35-39.9; care home current use of systemic steroids; Encounter for screening for malignant neoplasm of prostate; Acute upper respiratory infection, unspecified; 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 (HCC) Aspergillus (HCC) (P rimary Dx); S/P lung transplant (HCC) Steroid-induced oste openia (Primary Dx); 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, bilateral (HCC); 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; Vitamin D deficiency Start: 11-10-2023 End: 11-10-2023 Subsequent hospital visit by physician Xr Chest Main A21 Radiology Comment on above: Lung transplant stat us, bilateral (HCC) [Z94.2] Start: 11-10-2023 End: 11-10-2023 Subsequent hospital visit by physician Ct Main J (I-Stat) Work Phone: Radiology Comment on above: Follow-up examinatio n after lung transplant (HCC) [Z48.24] Start: 11-01-2023 End: 11-02-2023 Telephone encounter Lung Post Tx Main Work Phone: Pulmonary Medicine Comment on above: Results Start: 10-18-2023 End: 10-18-2023 Telephone encounter Lung Post Tx Main Work Phone: Pulmonary Medicine Comment on above: Results Start: 10-04-2023 End: 10-04-2023 Telephone encounter Lung Post Tx Main Work Phone: Pulmonary Medicine Comment on above: Results Start: 10-02-2023 End: 10-03-2023 Refill Wilbert Umanzor MD Work Phone: Pulmonary Medicine Comment on above: Refill Request Start: 09-27-2023 End: 09-27-2023 Refill Wilbert Umanzor MD Work Phone: Pulmonary Medicine Comment on above: Refill Request Start: 09-20-2023 Telephone encounter Lung Post Tx Main Work Phone: Pulmonary Medicine Comment on above: Medication Question Start: 09-20-2023 End: 09-20-2023 Patient encounter procedure Keshav Phillips APRN.CNP Work Phone: [facility] Comment on above: JODY (generalized anx iety disorder) (Primary Dx) Start: 09-15-2023 End: 09-15-2023 Patient encounter procedure Shukri Juárez MD Work Phone: Pulmonary Medicine Comment on above: S/P Bilateral Lung T ransplant on 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 (Primary Dx); Former cigarette smoker Start: 09-08-2023 Telephone encounter Lung Post Tx Main Work Phone: Pulmonary Medicine Comment on above: Results Start: 09-05-2023 Telephone encounter Lung Post Tx Main Work Phone: Pulmonary Medicine Comment on above: Return Call Request; Returning Patient's Call Start: 08-26-2023 Refill Dionna Barney [facility] RX Adherence Packaging Comment on above: Refill Request Start: 08-25-2023 Telephone encounter Emily King ( Rn) Ban RN Work Phone: Pulmonary Medicine Comment on above: Research F/U (IRB# [id number] A Randomized Trial of the Cryoprobe Versus Forceps for Transbronchial Biopsy (FROSTBITE-2)) Start: 08-23-2023 Telephone encounter Lung Post Tx Main Work Phone: Pulmonary Medicine Comment on above: Follow Up Start: 08-17-2023 Telephone encounter Shira Escobar RN Pulmonary Medicine Comment on above: Med Management Start: 08-15-2023 Refill Wilbert Umanzro MD Work Phone: Pulmonary Medicine Comment on above: Refill Request Start: 08-09-2023 Telephone encounter Lung Post Tx Main Work Phone: Pulmonary Medicine Comment on above: Results Start: 08-07-2023 Refill Wilbert Umanzor MD Work Phone: Pulmonary Medicine Comment on above: Refill Request Start: 08-04-2023 Refill Shay lorenzo MD Work Phone: Pulmonary Medicine Comment on above: Refill Request Pantoprozole refill by My Chart. Start: 08-02-2023 Refill Lung Post Tx Christine houston Work Phone: Pulmonary Medicine Comment on above: Rx Refills Start: 08-01-2023 Refill Viviane Guerrier Work Phone: Pulmonary Medicine Comment on above: Refill Request Start: 07-25-2023 ambulatory Shira Escobar RN Pul monary Medicine Comment on above: bronch results Start: 07-25-2023 E-mail encounter fro m caregiver Shira Escobar RN Pulmonary Medicine Start: 07-25-2023 Telephone encounter Nick robert MD Work Phone: Pulmonary Medicine Comment on above: + Aspergillus Start: 07-22-2023 Telephone encounter Gayatri Cordero RN Pulmonary Medicine Comment on above: Results Start: 07-21-2023 End: 07-21-2023 Orders Only Domi Cordoba MD Work Phone: Pulmonary Medicine Comment on above: Research study patie nt (Primary Dx) Spirometry Lung transplant stat us, bilateral (HCC) (Primary Dx); Encounter for aftercare following lung transplant (HCC); Encounter for monitoring tacrolimus therapy; Aftercare following organ transplant; Encounter for therapeutic drug level monitoring; Current chronic use of systemic steroids; Steroid-induced osteopenia; Essential hypertension; Gastroesophageal reflux disease without esophagitis; 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); Abnormal findings on diagnostic imaging of other parts of digestive tract; Encounter for screening for malignant neoplasm of prostate Review Of Studies; I nformed Consent (IRB# [id number] A Randomized Trial of Cryoprobe Versus Forceps for Transbronchial Biopsy (FROSTBITE-II)) Lung replaced by tra nsplant ([facility]) [Z94.2] Aftercare following organ transplant [Z48.298] Research (IRB # [id number] [phone] [facility] Lung Transplant Biorepository ) Start: 07-21-2023 Patient entered into trial Domi Cordoba MD Work Phone: [facility] Start: 07-18-2023 End: 07-18-2023 Subsequent hospital visit by physician Consuelo Leahy DO Work Phone: [facility] [place] Comment on above: Colon cancer screeni ng Start: 07-18-2023 End: 07-18-2023 ambulatory CONSUELO LEAHY [facility] Start: 07-11-2023 End: 07-11-2023 Patient encounter procedure Keshav Phillips APRN.CNP Work Phone: [facility] Comment on above: Essential hypertensi on (Primary Dx); Encounter for immunization; Mixed hyperlipidemia; 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) Start: 07-06-2023 Telephone encounter Lung Post Tx Main Work Phone: Pulmonary Medicine Comment on above: Results Start: 06-29-2023 Refill Wilbert Umanzor MD Work Phone: Pulmonary Medicine Comment on above: Refill Request Start: 06-28-2023 Telephone encounter Lung Post Tx Main Work Phone: Pulmonary Medicine Comment on above: Results Start: 06-14-2023 Telephone encounter Lung Post Tx Main Work Phone: Pulmonary Medicine Comment on above: Results Start: 06-07-2023 Refill Osbaldo Magallanes MD Work Phone: Pulmonary Medicine Comment on above: Refill Request Start: 05-31-2023 Telephone encounter Lung Post Tx Main Work Phone: Pulmonary Medicine Comment on above: Results Start: 05-27-2023 End: 05-27-2023 Patient encounter procedure Evan May MD Work Phone: Ophthalmology Comment on above: Status post cataract extraction and insertion of intraocular lens of left eye (Primary Dx); Status post cataract extraction and insertion of intraocular lens of right eye Start: 05-26-2023 End: 05-26-2023 Subsequent hospital visit by physician Evan May MD Work Phone: [facility] [place] Start: 05-20-2023 ambulatory EVAN MAY [facility] Start: 05-18-2023 Telephone encounter Lung Post Tx Main Work Phone: Pulmonary Medicine Comment on above: Results Start: 04-29-2023 End: 04-29-2023 Patient encounter procedure Evan May MD Work Phone: Ophthalmology Comment on above: Status post cataract extraction and insertion of intraocular lens of right eye (Primary Dx); 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-related cataract, left eye; 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; Hypercholesteremia Start: 04-28-2023 End: 04-28-2023 Subsequent hospital visit by physician Evan May MD Work Phone: [facility] [place] Start: 04-25-2023 End: 04-25-2023 Patient encounter procedure Evan May MD Work Phone: Ophthalmology Comment on above: Combined forms of ag e-related cataract of right eye (Primary Dx); Combined forms of age-related cataract of left eye; 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; Hypercholesteremia Start: 04-22-2023 Telephone encounter Ina Palacios RN Pulmonary Medicine Comment on above: A0B0 Start: 04-21-2023 Telephone encounter Ina Palacios RN Transplant Center Comment on above: Results Start: 04-21-2023 ambulatory EVAN MAY [facility] Start: 04-20-2023 End: 04-20-2023 Orders Only Domi Cordoba MD Work Phone: Pulmonary Medicine Comment on above: Research study patie nt (Primary Dx) Spirometry Aftercare following organ transplant (Primary Dx); 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; Encounter for monitoring tacrolimus therapy; Essential hypertension; Hyperlipidemia, unspecified hyperlipidemia type; Gastroesophageal reflux disease without esophagitis; Steroid-induced osteopenia; Obesity, Class I, BMI 30-34.9 Research (IRB # [phone] [facility] Lung Transplant Biorepository ) Aftercare following organ transplant [Z48.298] Start: 04-20-2023 Patient entered into trial Domi Cordoba MD Work Phone: [facility] Start: 04-19-2023 End: 04-19-2023 ambulatory [facility] Work Phone: Start: 04-19-2023 End: 04-19-2023 Patient encounter procedure [facility]-Laboratory Work Phone: Start: 04-18-2023 Telephone encounter Serina COLE (H uc) Admitting Comment on above: pre op bronch (Sarithai ng slot on 04/20/2023. 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; Hyperlipidemia, unspecified hyperlipidemia type Start: 04-06-2023 Telephone encounter Lung Post Tx Main Work Phone: Pulmonary Medicine Comment on above: Results Start: 03-30-2023 Telephone encounter Lung Post Tx Main Work Phone: Pulmonary Medicine Comment on above: Follow Up Start: 03-28-2023 Telephone encounter Lung Post Tx Main Work Phone: Pulmonary Medicine Comment on above: Covid Positive Start: 03-27-2023 Telephone encounter Kayleigh gonzalez MD Work Phone: Pulmonary Medicine Comment on above: Returning Patient's Call Start: 03-25-2023 Telephone encounter Lung Post Tx Main Work Phone: Pulmonary Medicine Comment on above: Follow Up Start: 03-23-2023 Telephone encounter Lung Post Tx Main Work Phone: Pulmonary Medicine Comment on above: Follow Up; Returning Patient's Call Start: 03-16-2023 Telephone encounter Lung Post Tx Main Work Phone: Pulmonary Medicine Comment on above: Results Start: 01-19-2023 End: 01-19-2023 Orders Only Domi Cordoba MD Work Phone: Pulmonary Medicine Comment on above: Research study yana nt (Primary Dx) Start: 01-19-2023 Patient entered into trial Domi Cordoba MD Work Phone: [facility] Start: 01-14-2023 Refill Osbaldo Magallanes MD Work Phone: Pulmonary Medicine Comment on above: Refill Request Start: 01-12-2023 End: 01-12-2023 [facility] Start: 01-11-2023 Telephone encounter Lung Post Tx Main Work Phone: Pulmonary Medicine Comment on above: Results Start: 12-29-2022 Telephone encounter Dionna Arreaga PA-C Work Phone: Pulmonary Medicine Comment on above: Orders Start: 12-28-2022 Telephone encounter Itzel Nunez PSS Pulmonary Medicine Comment on above: Results Start: 12-22-2022 End: 12-22-2022 [facility] Start: 12-20-2022 Telephone encounter Eloise Sharla Pulmonary Medicine Comment on above: Return Call Request; Cough Start: 12-17-2022 End: 12-17-2022 ambulatory [facility] Start: 12-15-2022 Telephone encounter Itzel Nunez [facility] Pulmonary Medicine Start: 12-15-2022 End: 12-15-2022 [facility] Start: 12-13-2022 End: 12-13-2022 [facility] Start: 12-10-2022 End: 12-10-2022 [facility] Start: 12-08-2022 End: 12-08-2022 [facility] Start: 12-06-2022 End: 12-06-2022 [facility] Start: 12-02-2022 End: 12-02-2022 ambulatory [facility] Work Phone: Start: 12-02-2022 End: 12-02-2022 Patient encounter procedure [facility] Work Phone: Start: 12-01-2022 End: 12-01-2022 [facility] Start: 11-30-2022 Refill Osbaldo Magallanes MD Work Phone: Pulmonary Medicine Comment on above: Refill Request Start: 11-29-2022 Telephone encounter Celjaylyn ( Pss) Cungtion Pulmonary Medicine Comment on above: Bronchoscopy Schedul ing Results Start: 11-29-2022 End: 11-29-2022 ambulatory Pulm Fct Lab Main 4 Pulmonary Medicine Comment on above: Spirometry Start: 11-29-2022 End: 11-29-2022 Patient encounter procedure Pulm Fct Lab Main 4 [facility] Comment on above: Aftercare following organ transplant (Primary Dx); 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); Encounter for monitoring tacrolimus therapy; Essential hypertension; Hyperlipidemia, unspecified hyperlipidemia type; Steroid-induced osteopenia; Obesity, Class II, BMI 35-39.9; Gastroesophageal reflux disease without esophagitis Start: 11-29-2022 End: 11-29-2022 Subsequent hospital visit by physician Bone Density Main A21 1 Radiology Comment on above: Lung transplant reci pient ([facility]) [Z94.2] Start: 11-26-2022 End: 11-26-2022 [facility] Start: 11-24-2022 End: 11-24-2022 [facility] Start: 11-22-2022 Telephone encounter Gladys HANCOCK Pulmonary Medicine Comment on above: Returning Patient's Call Start: 11-19-2022 End: 11-19-2022 [facility] Start: 11-17-2022 End: 11-17-2022 [facility] Start: 11-16-2022 Telephone encounter Lung Post Tx Main Work Phone: Pulmonary Medicine Comment on above: Results Start: 11-15-2022 End: 11-15-2022 [facility] Start: 11-12-2022 End: 11-12-2022 Subsequent hospital visit by physician Jose Hackett MD Work Phone: Gastroenterology Comment on above: Achalasia [K22.0] Start: 11-12-2022 End: 11-12-2022 Subsequent hospital visit by physician Gi Radio Main Qb1 (I-Stat) Radiology Comment on above: Achalasia [K22.0] Start: 11-09-2022 Telephone encounter Lung Post Tx Main Work Phone: Pulmonary Medicine Comment on above: Results Start: 11-05-2022 Telephone encounter Sharmin Kenny RN Gastroenterology Comment on above: Appointment Start: 11-05-[address] Shukri Juárez Facility:[id number] Start: 11-03-[address] Shukri Juárez Facility:[id number] Start: 11-02-2022 Telephone encounter Lung Post Tx Main Work Phone: Pulmonary Medicine Comment on above: Med Management; Ques tion Results Start: 11-01-2022 Telephone encounter Lung Post Tx Main Work Phone: Pulmonary Medicine Comment on above: Returning Patient's Call Start: 11-01-2022 ambulatory Wilbert Umanzor Facility: [id number] Start: 10-29-[address] Shukri Juárez Facility:[id number] Start: 10-27-[address] Shukri Juárez Facility:[id number] Start: 10-26-2022 End: 10-26-2022 Patient encounter procedure Shukri Juárez MD Work Phone: Pulmonary Medicine Comment on above: S/P Bilateral Lung T ransplant on 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 (Primary Dx); Personal history of immunosuppressive therapy; Former cigarette smoker Stop Vori; Rx Refill s Refill Request Start: 10-25-2022 Telephone encounter Dolores Vu RN Pulmonary Medicine Comment on above: A0B0 Start: 10-25-[address] Shukri Juárez Facility:[id number] Start: 10-21-2022 Chart abstracting Jing durant Research Coordinator Pulmonary Medicine Comment on above: Research (IRB # [id number] [facility] Lung Transplant Biorepository ) Start: 10-21-2022 End: 10-21-2022 ambulatory Pulm Fct Lab Main 8 Pulmonary Medicine Comment on above: Spirometry Start: 10-21-2022 End: 10-21-2022 Patient encounter procedure Pulm Fct Lab Main 8 [facility] Comment on above: Lung transplant reci pient (HCC) (Primary Dx); Aftercare following organ transplant; Human immunodeficiency virus (HIV) disease (HCC); Encounter for monitoring tacrolimus therapy; Essential hypertension; Hyperlipidemia, unspecified hyperlipidemia type; Gastroesophageal reflux disease without esophagitis; Steroid-induced osteopenia; Obesity, Class II, BMI 35-39.9; Methicillin resistant Staphylococcus aureus colonization; Pure hypertriglyceridemia; Lung replaced by transplant (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) [Z94.2] Start: 10-20-[address] Shukri Juárez Facility:[id number] Start: 10-18-[address] Shukri Juárez Facility:[id number] Start: 10-05-2022 Telephone encounter Yeison Hernandez RN (R n) Pulmonary Medicine Comment on above: Results Start: 10-04-2022 Chart abstracting Jing durant Research Coordinator Pulmonary Medicine Comment on above: Research (IRB # [id number] [facility] Lung Transplant Biorepository ) Start: 10-04-2022 End: 10-04-2022 ambulatory Pulm Fct Lab Main 4 Pulmonary Medicine Comment on above: Spirometry Start: 10-04-2022 End: 10-04-2022 Patient encounter procedure Pulm Fct Lab Main 4 [facility] Comment on above: Aftercare following organ transplant (Primary Dx); Lung transplant recipient ([facility]); Encounter for monitoring tacrolimus therapy; Essential hypertension; Hyperlipidemia, unspecified hyperlipidemia type; Gastroesophageal reflux disease without esophagitis; Human immunodeficiency virus (HIV) disease ([facility]); Steroid-induced osteopenia; Obesity, Class II, BMI 35-39.9; Methicillin resistant Staphylococcus aureus colonization Start: 10-04-2022 End: 10-04-2022 Subsequent hospital visit by physician Xr Chest Main A21 Radiology Comment on above: Lung replaced by tra nsplant ([facility]) [Z94.2] Start: 10-01-2022 Orders Only Domi ucmmings MD Work Phone: Pulmonary Medicine Comment on above: Research study yana nt (Primary Dx) Start: 10-01-2022 Patient entered into trial Domi Cordoba MD Work Phone: [facility] Start: 09-30-2022 Telephone encounter Lung Post Tx Main Work Phone: Pulmonary Medicine Comment on above: Results Refill Request Start: 09-29-2022 Refill Wilbert Umanzor MD Work Phone: Pulmonary Medicine Comment on above: Refill Request Start: 09-27-2022 Chart abstracting Jose healy MD Work Phone: Gastroenterology Start: 09-23-2022 Telephone encounter Wilbert brenner MD Work Phone: Pulmonary Medicine Comment on above: Medication Problem Start: 09-17-[address] Shukri Juárez Facility:[id number] Start: 09-12-2022 End: 09-12-2022 Home visit Demarco Ball RN Work Phone: [facility] Comment on above: SN AGENCY DC WO VISI T Start: 09-07-2022 Orders Only Shukri Juárez MD Work Phone: Pulmonary Medicine Comment on above: S/P lung transplant ([facility]) (Primary Dx) Start: 09-06-2022 Telephone encounter Dolores Vu RN Pulmonary Medicine Comment on above: A0B0 Orders Start: 09-03-2022 Chart abstracting Jing durant Research Coordinator Pulmonary Medicine Comment on above: Research (IRB # [id number] [facility] Lung Transplant Biorepository ) Start: 09-03-2022 End: 09-03-2022 Subsequent hospital visit by physician Ousmane Waite MD Work Phone: Admitting Comment on above: Lung replaced by tra nsplant ([facility]) [Z94.2] Start: 09-02-2022 Refill Rell Ashley (Pharmacist) [facility] Comment on above: Refill Request Start: 08-28-2022 End: 08-28-2022 Home visit Rudy Garland PT Work Phone: [facility] Comment on above: PT DISC DC W VISIT Start: 08-26-2022 End: 08-26-2022 Home visit Anisha Moody NUT ROASTER HELPER Work Phone: [facility] Comment on above: NUT ROASTER HELPER ROUTINE SN ROUTINE Start: 08-25-2022 End: 08-25-2022 Patient encounter procedure Wilbert Umanzor MD Work Phone: Pulmonary Medicine Comment on above: Lung replaced by tra nsplant (HCC) (Primary Dx) Start: 08-25-2022 End: 08-25-2022 ambulatory Pulm Fct Lab Main 5 Work Phone: Pulmonary Medicine Comment on above: Spirometry Start: 08-25-2022 End: 08-25-2022 Patient encounter procedure Pulm Fct Lab Main 5 Work Phone: [facility] Start: 08-25-2022 End: 08-25-2022 Subsequent hospital visit by physician Xr Chest Main A21 Radiology Comment on above: Lung replaced by tra nsplant (HCC) [Z94.2] Start: 08-24-2022 End: 08-24-2022 Patient encounter procedure Gamal Perry APRN.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 MANAGER Work Phone: Cardiothoracic Comment on above: Lung transplant reci pient (HCC) (Primary Dx); Change or removal of drains Start: 08-23-2022 End: 08-23-2022 Home visit Anisha Moody NUT ROASTER HELPER Work Phone: [facility] Comment on above: NUT ROASTER HELPER ROUTINE Start: 08-21-2022 End: 08-21-2022 Home visit Osbaldo Tadeo NUT ROASTER HELPER Work Phone: [facility] Comment on above: NUT ROASTER HELPER ROUTINE Start: 08-20-2022 Orders Only Domi cummings MD Work Phone: Pulmonary Medicine Comment on above: Research study patie nt (Primary Dx) Start: 08-20-2022 Patient entered into trial Domi Cordoba MD Work Phone: [facility] Start: 08-19-2022 End: 08-19-2022 Home visit Anisha Moody NUT ROASTER HELPER Work Phone: [facility] Comment on above: NUT ROASTER HELPER ROUTINE Start: 08-19-2022 Telephone encounter Ina Palacios RN Pulmonary Medicine Comment on above: Results Start: 08-19-2022 End: 08-19-2022 Subsequent hospital visit by physician [facility] Comment on above: Dyspepsia [R10.13] Start: 08-18-2022 End: 08-18-2022 Orders Only Ina Palacios RN Pulmonary Medicine Comment on above: Lung replaced by tra nsplant ([facility]) (Primary Dx) Lung transplant reci pient ([facility]) (Primary Dx); Change or removal of drains Start: 08-17-2022 End: 08-17-2022 Home visit Rudy Garland PT Work Phone: [facility] Comment on above: PT CASE MANAGEMENT V ISIT OT EVAL Start: 08-16-2022 End: 08-16-2022 Home visit Mariya Adams RN Work Phone: [facility] Comment on above: SN ROUTINE OT UNMADE VISIT Start: 08-16-2022 End: 08-16-2022 Nursing evaluation of patient and report Nurse Gi Lab 2 Work Phone: Gastroenterology Comment on above: Dyspepsia; 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) Start: 08-14-2022 End: 08-14-2022 Home visit Dayami King NUT ROASTER HELPER Work Phone: [facility] Comment on above: NUT ROASTER HELPER ROUTINE Start: 08-13-2022 Telephone encounter Shira Escobar RN Pulmonary Medicine Comment on above: Results (A0B0) Home Care (Delay of OT call) Start: 08-12-2022 Telephone encounter Shira Escobar RN Pulmonary Medicine Comment on above: Results Home Care (PT Eval, Pulmonary Rehab ) Start: 08-12-2022 End: 08-12-2022 Home visit Olegario Rivera PT Work Phone: [facility] Comment on above: PT EVAL Start: 08-11-2022 Chart abstracting Jing durant Research Coordinator Pulmonary Medicine Comment on above: Research (IRB # [id number] [facility] Lung Transplant Biorepository / ) Start: 08-11-2022 Telephone encounter Olegario lebron PT Work Phone: [facility] Comment on above: Home Care (PT Unmade Visit) Start: 08-11-2022 End: 08-11-2022 Home visit Olegario Miguel PT Work Phone: [facility] Comment on above: PT UNMADE VISIT Start: 08-11-2022 End: 08-11-2022 Patient encounter procedure Shonda Juarez MD Work Phone: Pulmonary Medicine Comment on above: Lung replaced by tra nsplant (HCC) (Primary Dx); Dyspepsia; Postoperative pain Lung transplant reci pient (HCC) (Primary Dx) Start: 08-11-2022 End: 08-11-2022 Subsequent hospital visit by physician Shonda Juarez MD Work Phone: Radiology Comment on above: COPD (chronic obstru ctive pulmonary disease) (HCC) Start: 08-08-2022 Telephone encounter Jim varner RN Work Phone: [facility] Comment on above: Home Care (Admission to home care services. ) Start: 08-08-2022 End: 08-08-2022 Home visit Jim Saini RN Work Phone: [facility] Comment on above: SN SOC Start: 08-05-2022 Chart abstracting Marzena Álvarez RN P [facility] Medicine Comment on above: D/C Summary Events Start: 08-05-2022 Telephone encounter Nora Kindra dowd Work Phone: [facility] Comment on above: Home Care (Confirmat ion Call ) Start: 08-04-2022 Orders Only Regina Decker 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 SERVICE REPRESENTATIVE.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 MANAGER Work Phone: Pulmonary Medicine Comment on above: Lung transplant stat us, bilateral (HCC) (Primary Dx) Start: 08-03-2022 Orders Only Regina Brianne 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 SERVICE REPRESENTATIVE.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 MANAGER Work Phone: Pulmonary Medicine Comment on above: Lung replaced by tra nsplant (HCC) (Primary Dx) Start: 07-23-2022 Orders Only Janett Russell DO Work Phone: Pulmonary Medicine Comment on above: Lung replaced by tra nsplant (HCC) (Primary Dx) Start: 07-14-2022 Chart abstracting Manda Cardenas RN [facility] Comment on above: Listed in UNOS. 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 Start: 06-21-2022 E-mail encounter fro m caregiver Amber Garcia RN [facility] Start: 06-18-2022 Chart abstracting Eileen ibrahim [facility] Work Phone: Pulmonary Medicine Start: 06-18-2022 Patient encounter status Ade Cm [facility] Work Phone: Pulmonary Medicine Start: 06-02-2022 End: 06-02-2022 Orders Only Markos Prasad MD Work Phone: Pulmonary Medicine Comment on above: Dyspnea and respirat ory abnormalities (Primary Dx) Spirometry Lung transplant cand idate; SOB (shortness of breath); care home current use of systemic steroids Informed Consent ( I RB # [id number] [facility] Lung Transplant Biorepository ) Lung transplant cand idate [Z76.82] Start: 05-26-2022 Refill Darryl Sharpe i, MD Work Phone: Respiratory [place] Comment on above: Refill Request Start: 05-17-2022 Get Medical Advice Darryl Willis MD Work Phone: Pulmonary Medicine Comment on above: Prescription mail or [employer] company Start: 03-17-2022 End: 03-17-2022 ambulatory Darryl Willis MD Work Phone: Pulmonary Medicine Comment on above: Asthma with chronic obstructive pulmonary disease (COPD) (HCC) (Primary Dx); 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 Start: 03-17-2022 End: 03-17-2022 Telemedicine consultation with patient Darryl Willis MD Work Phone: [facility] Start: 03-16-2022 End: 03-16-2022 ambulatory Fidelina Abernathy MD Work Phone: Gastroenterology Comment on above: Lung transplant cand idate (Primary Dx) Start: 03-16-2022 End: 03-16-2022 Telemedicine consultation with patient Fidelina Abernathy MD Work Phone: [facility] Start: 03-03-2022 Orders Only Wilbert Umanzor MD Work Phone: Pulmonary Medicine Comment on above: Lung transplant cand idate (Primary Dx); SOB (shortness of breath); 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 Start: 03-01-2022 End: 03-01-2022 Social Work Emmie BUTT Work Phone: Transplant Center Start: 02-25-2022 End: 02-25-2022 Patient encounter procedure Mu Miller MD, PhD Work Phone: Cardiothoracic Comment on above: Adult BMI 33.0-33.9 kg/sq m (Primary Dx); Transplant; Chronic obstructive pulmonary disease, unspecified COPD type (HCC); Encounter for pre-transplant evaluation for lung transplant; Lung transplant candidate; SOB (shortness of breath); 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; Stenosis of right carotid artery; 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) Osteoporosis screeni ng (Primary Dx); Encounter for pre-transplant evaluation for lung transplant; 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; Vitamin D deficiency Start: 02-25-2022 End: 02-25-2022 Patient encounter status Mu Miller MD, PhD Work Phone: Cardiothoracic Start: 02-24-2022 End: 02-24-2022 Orders Only Wilbert Umanzor MD Work Phone: Pulmonary Medicine Comment on above: Lung transplant cand idate (Primary Dx); Encounter for screening for malignant neoplasm of prostate ; SOB (shortness of breath); care home current use of systemic steroids; Screening for prostate cancer Spirometry Chronic obstructive pulmonary disease, unspecified COPD type (HCC) (Primary Dx); Transplant; Encounter for pre-transplant evaluation for lung transplant; Lung transplant candidate; SOB (shortness of breath); 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 Transplant [Z94.9] Lung transplant cand idate (Primary Dx) Start: 02-24-2022 End: 02-24-2022 Patient encounter status Pulm Fct Lab Main 8 Pulmonary Medic ine Start: 02-24-2022 End: 02-24-2022 Patient encounter status Xr A21 Radiology Start: 02-22-2022 Telephone encounter Miguelito morrissey MD Work Phone: Cardiology Comment on above: Education Of Patient /family Start: 02-22-2022 End: 02-22-[address] Nutrition Therapy Comment on above: Assessment; Patient Education Start: 02-22-2022 End: 02-22-2022 Patient encounter procedure Markos Burgos MD Work Phone: Cardiology Comment on above: Transplant; Chronic obstructive pulmonary disease, unspecified COPD type (HCC); Encounter for pre-transplant evaluation for lung transplant; Lung transplant candidate; SOB (shortness of breath); 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; Acute bronchitis with chronic obstructive pulmonary disease (COPD) (HCC); Hypertensive chronic kidney disease with stage 1 through stage 4 chronic kidney disease, or unspecified chronic kidney disease Start: 02-22-2022 End: 02-22-2022 Patient encounter status Markos Burgos MD Work Phone: Cardiology Start: 02-16-2022 Social Work Emmie MCMULLEN Work Phone: Transplant Center Comment on above: Refill Request Start: 02-12-2022 End: 02-12-2022 Social Work Emmie BUTT Work Phone: Transplant Center Start: 02-09-2022 Telephone encounter Lung Pre T x Main Work Phone: Pulmonary Medicine Comment on above: Opened In Error Start: 02-02-2022 End: 02-02-2022 Patient encounter procedure Shukri Juárez MD Work Phone: Pulmonary Medicine Comment on above: Stage 4 very severe COPD by GOLD classification (HCC) (Primary Dx); Moderate persistent asthma without complication; Heterozygous alpha 1-antitrypsin deficiency (HCC); Bronchiectasis without complication (HCC); Chronic hypoxemic respiratory failure (HCC) Start: 01-29-2022 Telephone encounter Lung Pre T x Main Work Phone: Pulmonary Medicine Comment on above: Returning Patient's Call Start: 01-25-2022 Orders Only Wilbert Umanzor MD Work Phone: Pulmonary Medicine Comment on above: Acute bronchitis wit h chronic obstructive pulmonary disease (COPD) (HCC) (Primary Dx); Hypertensive chronic kidney disease with stage 1 through stage 4 chronic kidney disease, or unspecified chronic kidney disease ; Encounter for screening for malignant neoplasm of prostate ; Lung transplant candidate; SOB (shortness of breath); care home current use of systemic steroids Start: 01-22-2022 ambulatory Wilbert Umanzor MD Work Phone: Pulmonary Medicine Comment on above: Belgica Angelo. D OB [phone], Start: 01-22-2022 Telephone encounter Emmie BUTT Work Phone: Transplant Center Comment on above: Follow Up Start: 01-13-2022 End: 01-13-2022 ambulatory [facility] Work Phone: Start: 01-13-2022 End: 01-13-2022 Patient encounter procedure [facility] Start: 12-01-2021 Refill Darryl Sharpe i, MD Work Phone: Pulmonary Medicine Comment on above: Refill Request Start: 11-20-2021 End: 11-20-2021 Social Work Emmie BUTT Work Phone: Transplant Center Start: 11-18-2021 End: 11-18-2021 Orders Only Erickson Burns MD Work Phone: Pulmonary Medicine Comment on above: Bronchiectasis witho ut complication (HCC) (Primary Dx) Asthma with chronic obstructive pulmonary disease (COPD) (HCC) (Primary Dx); Stage 4 very severe COPD by GOLD classification (HCC); Heterozygous alpha 1-antitrypsin deficiency (HCC) Spirometry Chronic obstructive pulmonary disease, unspecified COPD type (HCC) (Primary Dx); Transplant; Encounter for pre-transplant evaluation for lung transplant; Lung transplant candidate; SOB (shortness of breath); care home current use of systemic steroids AAT level is still n ormal Start: 11-18-2021 End: 11-18-2021 Patient encounter status Wilbert Umanzor MD Work Phone: Pulmonary Medicine Start: 11-16-2021 Refill Shukri Juárez MD Work Phone: Pulmonary Medicine Comment on above: Refill Request Start: 11-03-2021 End: 11-03-2021 Nursing evaluation of patient and report Nurse Patrick Rehman Work Phone: Allergy Comment on above: Severe persistent as thma, uncomplicated (Primary Dx) Start: 10-27-2021 Telephone encounter Emmie BUTT Work Phone: Transplant Center Comment on above: Appointment (Vidal viramontes, this pt ;s called me for a f/u appt. Not sure why it was not scheduled as a follow up ; will do a virtual with him on 11/20. Emmie ) Start: 10-06-2021 End: 10-06-2021 Nursing evaluation of patient and report Nurse Patrick Rehman Work Phone: Allergy Comment on above: Severe persistent as thma, uncomplicated (Primary Dx) Start: 09-22-2021 End: 09-22-2021 Nursing evaluation of patient and report Nurse Patrick Rehman Work Phone: Allergy Comment on above: Severe persistent as thma, uncomplicated (Primary Dx) Start: 09-17-2021 Refill Shukri Juárez MD Work Phone: Pulmonary Medicine Comment on above: Refill Request Start: 09-08-2021 End: 09-08-2021 Nursing evaluation of patient and report Nurse Patrick Rehman Work Phone: Allergy Comment on above: Severe persistent as thma, uncomplicated (Primary Dx); AAT (jfisy-7-chcqfsxaafy) deficiency (HCC); Bronchiectasis without complication (HCC) Start: 08-31-2021 ambulatory Darryl Sharpe i, MD Work Phone: Pulmonary Medicine Comment on above: [employer] Start: 08-25-2021 End: 08-25-2021 Nursing evaluation of patient and report Nurse Patrick Rehman Work Phone: Allergy Comment on above: Severe persistent as thma, uncomplicated (Primary Dx) Start: 08-12-2021 Orders Only Wilbert Umanzor MD Work Phone: Pulmonary Medicine Comment on above: Wheezing; Lung transplant candidate; SOB (shortness of breath); care home current use of systemic steroids Start: 08-11-2021 End: 08-11-2021 Nursing evaluation of patient and report Nurse Patrick Rehman Work Phone: Allergy Comment on above: Severe persistent as thma, uncomplicated (Primary Dx); AAT (mpgkg-3-bxgwsrjzkgo) deficiency (HCC); Bronchiectasis without complication (HCC) Start: 07-31-2021 Telephone encounter Lisseth houston MD Work Phone: Allergy Comment on above: dupixent scheduling Start: 07-30-2021 End: 07-30-2021 Patient encounter procedure Shukri Juárez MD Work Phone: Pulmonary Medicine Comment on above: Stage 4 very severe COPD by GOLD classification (HCC) (Primary Dx); Heterozygous alpha 1-antitrypsin deficiency (HCC); Class 1 obesity due to excess calories with body mass index (BMI) of 33.0 to 33.9 in adult, unspecified whether serious comorbidity present; Former cigarette smoker Start: 07-28-2021 End: 07-28-2021 Nursing evaluation of patient and report Nurse Patrick [facility] Work Phone: Allergy Comment on above: Severe persistent as thma, uncomplicated (Primary Dx); AAT (mpytj-4-qigqptveezz) deficiency (HCC); Bronchiectasis without complication (HCC) Start: 07-27-2021 Orders Only Darryl Sharpe i, MD Work Phone: Pulmonary Medicine Start: 07-24-2021 Telephone encounter Darryl Harmon MD Work Phone: Pulmonary Medicine Comment on above: Returning Patient's Call Start: 07-23-2021 End: 07-23-2021 Patient encounter status Nurse Gi [facility] Molecular Imagi ng Start: 07-23-2021 End: 07-23-2021 Social Work Emmie BUTT Work Phone: Pulmonary Medicine Comment on above: Arrived Encounter for pre-tr ansplant evaluation for lung transplant [Z01.818] Encounter for pre-tr ansplant evaluation for lung transplant; Lung transplant candidate; SOB (shortness of breath); 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 Start: 07-22-2021 End: 07-22-2021 Patient encounter status Pulm Fct Lab Main 8 Pulmonary Medic ine Start: 07-22-2021 End: 07-22-2021 Orders Only Darryl Willis MD Work Phone: Pulmonary Medicine Comment on above: Severe persistent as thma without complication (Primary Dx) Encounter for pre-tr ansplant evaluation for lung transplant; Lung transplant candidate; SOB (shortness of breath); 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 Medication Preauthor ization (Dupixent - New Start) Dupixent Injections Spirometry Encounter for pre-tr ansplant evaluation for lung transplant [Z01.818] Start: 07-22-2021 End: 07-22-2021 Patient encounter status Nurse Gi Lab Gastroenterolog y Start: 07-16-2021 Telephone encounter Lung Pre T x Main Work Phone: Pulmonary Medicine Comment on above: Returning phone call Start: 07-15-2021 Orders Only Darryl Sharpe i, MD Work Phone: Pulmonary Medicine Comment on above: Severe persistent as thma without complication (Primary Dx) Start: 06-26-2021 End: 06-26-2021 Patient encounter procedure Darryl Willis MD Work Phone: Pulmonary Medicine Comment on above: Heterozygous alpha 1 -antitrypsin deficiency (HCC); Severe persistent asthma without complication; Centrilobular emphysema (HCC) Start: 06-01-2021 ambulatory Darryl Sharpe i, MD Work Phone: Pulmonary Medicine Comment on above: Pulmicort me Start: 05-25-2021 ambulatory Darryl Sharpe i, MD Work Phone: Pulmonary Medicine Comment on above: Breo 200,25 Start: 05-20-2021 End: 05-20-2021 ambulatory Pulm Fct Lab Main 1 Work Phone: Pulmonary Medicine Comment on above: Spirometry Start: 05-20-2021 End: 05-20-2021 Patient encounter procedure Pulm Fct Lab Main 1 Work Phone: [facility] Comment on above: Severe persistent as thma without complication (Primary Dx); Centrilobular emphysema (HCC); SOB (shortness of breath) Start: 04-28-2021 Orders Only Chalo Stringer RN Pulmonary Medicine Start: 04-10-2020 End: 04-10-2020 Orders Only Jing Rogel Work Phone: [facility] Start: 12-21-2019 Patient encounter procedure MARTHA SCHWAB [facility] Ambulatory Start: 10-24-2019 End: 10-24-2019 Patient encounter procedure SHUKRI ATWOOD [facility] Ambulatory Start: 10-24-2019 End: 10-24-2019 Office outpatient visit 15 minutes Shukri Juárez Work Phone: [facility] Comment on above: Chronic obstructive pulmonary disease, unspecified COPD type (HCC) (Primary Dx); AAT (dvjiw-2-tzzkxrdtfpw) deficiency (HCC) Start: 08-28-2019 Patient encounter procedure SHUKRI ATWOOD FRANCK [facility] Ambulatory Start: 07-24-2019 End: 07-24-2019 Patient encounter procedure SHUKRI ATWOOD [facility] Ambulatory Start: 07-05-2019 Patient encounter procedure SHUKRI ATWOOD [facility] Ambulatory Start: 05-24-2019 Patient encounter procedure SHUKRI ATWOOD [facility] Ambulatory Start: 04-19-2019 End: 04-19-2019 Patient encounter procedure SHUKRI ATWOOD [facility] Ambulatory Start: 04-19-2019 End: 04-19-2019 Office outpatient visit 15 minutes Shukri Juárez Work Phone: [facility] Comment on above: AAT (jqynd-0-kgvjphp psin) deficiency (HCC) (Primary Dx); Chronic obstructive pulmonary disease, unspecified COPD type (HCC); Obesity, unspecified classification, unspecified obesity type, unspecified whether serious comorbidity present Start: 04-12-2019 End: 04-13-2019 Patient encounter procedure AISHA KANG [facility] Start: 04-12-2019 End: 04-12-2019 Subsequent hospital visit by physician Shukri Juárez Work Phone: [facility] CT Scan Comment on above: Abnormal chest CT Start: 04-04-2019 Patient encounter procedure SHUKRI JUÁREZ [facility] Start: 03-17-2019 Refill Shukri Juárez MD Work Phone: [facility] Comment on above: Chronic obstructive pulmonary disease, unspecified COPD type (HCC) (Primary Dx) Start: 02-27-2019 End: 02-27-2019 Patient encounter procedure SHUKRI JUÁREZ [facility] Start: 02-27-2019 End: 02-27-2019 Office outpatient visit 25 minutes Shukri Juárez Work Phone: [facility] Comment on above: COPD exacerbation (H CC) (Primary Dx); AAT (yjvnh-3-tsfzxsxpmro) deficiency (HCC); Anxiety Start: 02-06-2019 Refill Shukri Juárez MD Work Phone: [facility] Start: 01-22-2019 End: 01-22-2019 Patient encounter procedure SHUKRI JUÁREZ [facility] Ambulatory Start: 01-22-2019 End: 01-22-2019 Office outpatient visit 25 minutes Shukri Juárez Work Phone: [facility] Comment on above: Abnormal chest CT (P rimary Dx); Chronic obstructive pulmonary disease, unspecified COPD type (HCC); AAT (wsmyu-9-dyhhkfsvodt) deficiency (HCC) Start: 12-18-2018 End: 12-18-2018 Subsequent hospital visit by physician Shukri Juárez Work Phone: [facility] CT Scan Comment on above: Chronic obstructive pulmonary disease, unspecified COPD type (HCC); Screening for malignant neoplasm of respiratory organ; Personal history of tobacco use, presenting hazards to health Start: 08-23-2018 End: 08-23-2018 Office outpatient visit 15 minutes Shukri Juárez Work Phone: [facility] Comment on above: Chronic obstructive pulmonary disease, unspecified COPD type (HCC) (Primary Dx); AAT (nojmy-4-soqvbjihhnj) deficiency (HCC); Special screening for malignant neoplasm of the respiratory organs; Personal history of tobacco use, presenting hazards to health Start: 04-19-2018 End: 04-19-2018 Office outpatient visit 15 minutes Shukri Juárez Work Phone: [facility] Comment on above: AAT (rzmrz-6-uahhzpu psin) deficiency (HCC) (Primary Dx); Chronic obstructive pulmonary disease, unspecified COPD type (HCC); Bronchiectasis without complication (HCC) Start: 04-11-2018 Patient encounter procedure Shukri Juárez Facility:[facility] Start: 12-19-2017 Patient encounter procedure Shukri Juárez Facility:[facility] Start: 12-12-2017 Patient encounter procedure Shukri Juárez Facility:[facility] Start: 11-02-2017 End: 11-02-2017 Patient encounter procedure Mu Chopra Facility:Mu Chopra MD Start: 10-18-2017 End: 03-11-2018 Patient encounter procedure Shukri Juárez Facility:[facility] Start: 09-29-2017 End: 09-29-2017 Office outpatient new 60 minutes Shukri Juárez Work Phone: [facility] Start: 07-22-2017 End: 07-23-2017 Patient encounter procedure Mu Chopra Facility:Mu Chopra MD Start: 01-14-2017 End: 06-13-2017 Ambulatory Mu Chopra Facility:[facility] Start: 11-03-2016 End: 06-13-2017 Ambulatory Mu Chopra Facility:[facility] Start: 10-05-2016 End: 06-13-2017 Ambulatory Mu Chopra Facility:[facility] Start: 09-06-2016 End: 06-13-2017 Ambulatory Mu Chopra Facility:[facility] Procedures Date Procedure Procedure Detail Performing Clinician Start: 09-25-2024 Radiologic exam knee complete 4/more views Moon Tomlinson DO Work Phone: Start: 09-03-2024 Adult depression scr eening assessment Keshav Albino 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 SERVICE REPRESENTATIVE.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 MANAGER Work Phone: Start: 07-17-2024 ALLOGEN POST-TX DSA RPT [facility] Provider Start: 07-17-2024 Spmtry w/vc expirato ry yamel w/wo mxml vol vntj Osbaldo Magallanes MD Work Phone: Start: 07-17-2024 Radiologic exam ches t 2 views Osbaldo Magallanes MD Work Phone: Start: 07-03-2024 Lipid 1996 panel - S james or Plasma Osbaldo Magallanes MD Work Phone: Start: 04-24-2024 ALLOGEN POST-TX DSA RPT [facility] Provider Start: 04-24-2024 Spmtry w/vc expirato ry yamel w/wo mxml vol vntj Osbaldo Magallanes MD Work Phone: Start: 04-24-2024 Radiologic exam ches t 2 views Osbaldo Magallanes MD Work Phone: Start: 04-24-2024 Lipid 1996 panel - S james or Plasma Pulm 9 Start: 03-30-2024 NERVE BLOCK Timothy murphy DO Work Phone: Start: 03-02-2024 Arthrocentesis aspir &/inj major jt/bursa w/o us Timothy Best DO Work Phone: Start: 01-19-2024 Spmtry w/vc expirato ry yamel w/wo mxml vol vntj Osbaldo Magallanes MD Work Phone: Start: 01-19-2024 BD DXA TRABECULAR DYLAN NE SCORE (TBS) Osbaldo Magallanes MD Work Phone: Start: 01-19-2024 Dxa bone density silvia dy axial skeleton Osbaldo Magallanes MD Work Phone: Start: 01-19-2024 Radiologic exam ches t 2 views Osbaldo Magallanes MD Work Phone: Start: 01-19-2024 Lipid 1996 panel - S james or Plasma Pulm 7 Start: 11-10-2023 PFIZER-BIONTECH COVI D-19 VACCINE AGE 12+ YR (COMIRNATY) Osbaldo Magallanes MD Work Phone: Start: 11-10-2023 Spmtry w/vc expirato ry yamel w/wo mxml vol vntj Viviane Curtis MD Work Phone: Start: 11-10-2023 Radiologic exam ches t 2 views Viviane Curtis MD Work Phone: Start: 11-10-2023 Ct thorax w/o contra st material Viviane Curtis MD Work Phone: Start: 11-10-2023 Lipid 1996 panel - S james or Plasma Osbaldo Magallanes MD Work Phone: Start: 07-21-2023 BAL MANUAL DIFF Nick silva MD Work Phone: Start: 07-21-2023 Cell count misc body fluids w/differential count iNck Mccoy MD Work Phone: Start: 07-21-2023 EXPANDED RESPIRATORY PATHOGEN PANEL BY PCR (WITH COVID), ROUTINE Nick Mccoy MD Work Phone: Start: 07-21-2023 End: 07-21-2023 [facility] w/cell washg spx Osbaldo Magallanes MD Work Phone: Start: 07-21-2023 PFIZER-BIONTECH COVI D-19 VACCINE ( SEASON) AGE 12+ YR Viviane Curtis MD Work Phone: Start: 07-21-2023 Spmtry w/vc expirato ry yamel w/wo mxml vol vntj Osbaldo Magallanes MD Work Phone: Start: 07-21-2023 Radiologic exam ches t 2 views Osbaldo Magallanes MD Work Phone: Start: 07-21-2023 Lipid 1996 panel - S james or Plasma Pulm 1 Work Phone: Start: 07-18-2023 Colsc flx w/rmvl of tumor polyp lesion snare tq Consuelo Leahy DO Work Phone: Start: 07-18-2023 Level iv surg pathol ogy gross&microscopic exam Consuelo Leahy DO Work Phone: Start: 07-18-2023 Colonoscopy Rivera 04 Start: 07-11-2023 Adult depression scr eening assessment Lung Main Work Phone: Start: 04-25-2023 ASCAN ONLY - DIAGNOS TIC OU (BOTH EYES) Evan May MD Work Phone: Start: 04-20-2023 ALLOGEN POST-TX DSA RPT [facility] Provider Start: 04-20-2023 Spmtry w/vc expirato ry yamel w/wo mxml vol vntj Osbaldo Magallanes MD Work Phone: Start: 04-20-2023 Radiologic exam ches t 2 views Osbaldo Magallanes MD Work Phone: Start: 04-20-2023 Lipid 1996 panel - S james or Plasma Osbaldo Magallanes MD Work Phone: Start: 04-11-2023 IOL BIOMETRY W/ IOL CALC OU (BOTH EYES) Evan May MD Work Phone: Start: 04-11-2023 Computerized ophthal dei imaging retina Evan May MD Work Phone: Start: 01-19-2023 Spmtry w/vc expirato ry yamel w/wo mxml vol vntj Osbaldo Magallanes MD Work Phone: Start: 01-10-2023 Lipid 1996 panel - S james or Plasma Lung Main Work Phone: Start: 11-29-2022 Spmtry w/vc expirato ry yamel w/wo mxml vol vntj Shay Florentino MD Work Phone: Start: 11-29-2022 Radiologic exam ches t 2 views Shay Florentino MD Work Phone: Start: 11-29-2022 Dxa bone density silvia dy axial skeleton Shay Florentino MD Work Phone: Start: 11-12-2022 Esophagoscp rig vigil soral hypopharynx crv esoph Jose Hackett MD Work Phone: Start: 11-12-2022 Radiologic exam esop hagus single contrast study Jose Hackett MD Work Phone: Start: 11-08-2022 Lipid 1996 panel - S james or Plasma Lung Main Work Phone: Start: 10-21-2022 Spmtry w/vc expirato ry yamel w/wo mxml vol vntj Osbaldo Magallanes MD Work Phone: Start: 10-21-2022 Lipid 1996 panel - S james or Plasma Shay Florentino MD Work Phone: Start: 10-04-2022 ALLOGEN POST-TX DSA RPT [facility] Provider Start: 10-04-2022 Spmtry w/vc expirato ry yamel w/wo mxml vol vntj Wilbert Umanzor MD Work Phone: Start: 10-04-2022 Radiologic exam ches t 2 views Wilbert Umanzor MD Work Phone: Start: 09-03-2022 BAL MANUAL DIFF Ousmane Waite MD Work Phone: Start: 09-03-2022 Cell count misc body fluids w/differential count Ousmane Waite MD Work Phone: Start: 09-03-2022 Cul bact kina aerobi c isol xcpt ur blood/stool Ousmane Waite MD Work Phone: Start: 09-03-2022 Sars-cov-2 detection by dna/rna Ousmane Waite MD Work Phone: Start: 09-03-2022 SURGICAL PATHOLOGY Soy pro Waite MD Work Phone: Start: 09-03-2022 Brnchsc incl fluor g dnce dx w/cell washg spx [facility] Provider Start: 09-03-2022 Gluc bld gluc mntr d ev cleared fda spec home use Ousmane Waite MD Work Phone: Start: 08-25-2022 Spmtry w/vc expirato ry yamel w/wo mxml vol vntj Wilbert Umanzor MD Work Phone: Start: 08-25-2022 Radiologic exam ches t 2 views Wilbert Umanzor MD Work Phone: Start: 08-19-2022 Gastric emptying femi ging study iWlbert Umanzor MD Work Phone: Start: 08-11-2022 Radiologic exam ches t 2 views Regina Decker APRN.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 MANAGER Work Phone: Start: 08-11-2022 ALLOGEN POST-TX DSA RPT [facility] Provider Start: 06-02-2022 Echo transthorac r-t 2d w/wo m-mode rec comp Wilbert Umanzor MD Work Phone: Start: 06-02-2022 LVEF ECHO WITH AGITA RADHA SALINE CONTRAST Wilbert Umanzor MD Work Phone: Start: 06-02-2022 Pulmonary stress testing Wilbert Umanzor MD Work Phone: Start: 06-02-2022 Spmtry w/vc expirato ry yamel w/wo mxml vol vntj Wilbert Umanzor MD Work Phone: Start: 06-02-2022 Radiologic exam ches t 2 views Wilbert Umanzor MD Work Phone: Start: 02-24-2022 Culture tubercle/oth acid-fast bacilli any isol Gela Tracey MD Work Phone: Start: 02-24-2022 Pulmonary stress testing Wilbert Umanzor MD Work Phone: Start: 02-24-2022 Spmtry w/vc expirato ry yamel w/wo mxml vol vntj Wilbert Umanzor MD Work Phone: Start: 02-24-2022 Radiologic exam ches t 2 views Wilbert Umanzor MD Work Phone: Start: 11-18-2021 INFLUENZA SEASONAL QUADRIVALENT HIGH DOSE AGE 65+ Wilbert Umanzor MD Work Phone: Start: 11-18-2021 [email or web address] COVI D-19 BIVALENT BOOSTER VACCINE, AGE 12+ YR Wlibert Umanzor MD Work Phone: Start: 11-18-2021 Pulmonary stress testing Wilbert Umanzor MD Work Phone: Start: 11-18-2021 PF BG ARTERIAL/LAB PANELS [facility] Provider Start: 11-18-2021 Spmtry w/vc expirato ry yamel w/wo mxml vol vntj Wilbert Umanzor MD Work Phone: Start: 07-23-2021 Gastric emptying femi ging study Domi Cordoba MD Work Phone: Start: 07-22-2021 End: 07-22-2021 Spmtry w/vc expiratory yamel w/wo mxml vol vntj Domi Cordoba MD Work Phone: Start: 07-22-2021 Esophageal motility study w/interp&rpt Domi Cordoba MD Work Phone: Start: 07-22-2021 Radiologic exam ches t 2 views Domi Cordoba MD Work Phone: Start: 07-22-2021 Dxa bone density silvia dy axial skeleton Domi Cordoba MD Work Phone: Start: 05-20-2021 Nitric oxide gas determination Darryl Willis MD Work Phone: Start: 05-20-2021 Brncdilat rspse spmt ry pre&post-brncdilat admn Darryl Willis MD Work Phone: Start: 04-13-2021 Lipid 1996 panel - S james or Plasma Pulm 8 Start: 04-12-2019 CT of chest without contrast Shukri Hyacinth Juárez Work Phone: Start: 12-18-2018 Low dose computed tomography of thorax Shukri Hyacinth Juárez Work Phone: Plan of Treatment Date Care Activity Detail Author Start: 04-14-2031 DTaP/Tdap/Td Vaccines (2 - Td or Tdap) DTaP/Tdap/Td Vaccines (2 - Td or Tdap) [facility] Start: 04-14-2031 Urine microalbumin profile [facility] Start: 07-03-2029 Lipid panel Lipid Screening [facility] Start: 04-24-2029 Lipid panel Lipid Screening [facility] Start: 01-18-2029 Lipid panel Lipid Screening [facility] Start: 01-18-2029 Prostate specific antigen measurement Prostate Cancer Screening Discussion [facility] Start: 11-09-2028 Lipid panel Lipid Screening [facility] Start: 11-09-2028 Prostate specific antigen measurement Prostate Cancer Screening Discussion [facility] Start: 07-20-2028 Lipid panel Lipid Screening [facility] Start: 07-16-2028 Screening for malignant neoplasm of colon [facility] Start: 04-19-2028 Lipid panel Lipid Screening [facility] Start: 01-11-2028 Lipid 1996 panel - Serum or Plasma Lipid Screening [facility] Start: 01-11-2028 Lipid panel Lipid Screening [facility] Start: 11-09-2027 Lipid 1996 panel - Serum or Plasma Lipid Screening [facility] Start: 10-22-2027 Lipid 1996 panel - Serum or Plasma Lipid Screening [facility] Start: 10-16-2027 Diabetes Screening Diabetes Screening [facility] Start: 09-12-2027 Diabetes Screening Diabetes Screening [facility] Start: 08-10-2027 Diabetes Screening Diabetes Screening [facility] Start: 07-18-2027 Diabetes Screening Diabetes Screening [facility] Start: 07-04-2027 Diabetes Screening Diabetes Screening [facility] Start: 06-19-2027 Diabetes Screening Diabetes Screening [facility] Start: 06-05-2027 Diabetes Screening Diabetes Screening [facility] Start: 05-08-2027 Diabetes Screening Diabetes Screening [facility] Start: 04-25-2027 Diabetes Screening Diabetes Screening [facility] Start: 04-02-2027 Diabetes Screening Diabetes Screening [facility] Start: 03-05-2027 Diabetes Screening Diabetes Screening [facility] Start: 02-24-2027 PROSTATE CANCER SCREENING DISCUSSION PROSTATE CANCER SCREENING DISCUSSION [facility] Start: 02-24-2027 Prostate specific antigen measurement Prostate Cancer Screening Discussion [facility] Start: 02-12-2027 Diabetes Screening Diabetes Screening [facility] Start: 01-18-2027 Diabetes Screening Diabetes Screening [facility] Start: 12-25-2026 Diabetes Screening Diabetes Screening [facility] Start: 12-04-2026 Diabetes Screening Diabetes Screening [facility] Start: 11-09-2026 Diabetes Screening Diabetes Screening [facility] Start: 10-30-2026 Diabetes Screening Diabetes Screening [facility] Start: 10-16-2026 Diabetes Screening Diabetes Screening [facility] Start: 10-02-2026 Diabetes Screening Diabetes Screening [facility] Start: 09-05-2026 Diabetes Screening Diabetes Screening [facility] Start: 08-21-2026 Diabetes Screening Diabetes Screening [facility] Start: 08-07-2026 Diabetes Screening Diabetes Screening [facility] Start: 07-31-2026 Diabetes Screening Diabetes Screening [facility] Start: 07-20-2026 Diabetes Screening Diabetes Screening [facility] Start: 07-04-2026 Diabetes Screening Diabetes Screening [facility] Start: 06-26-2026 Diabetes Screening Diabetes Screening [facility] Start: 06-12-2026 Diabetes Screening Diabetes Screening [facility] Start: 05-29-2026 Diabetes Screening Diabetes Screening [facility] Start: 05-16-2026 Diabetes Screening Diabetes Screening [facility] Start: 04-19-2026 Diabetes Screening Diabetes Screening [facility] Start: 04-13-2026 Lipid 1996 panel - Serum or Plasma Lipid Screening [facility] Start: 04-13-2026 LIPID SCREEN LIPID SCREEN [facility] Start: 04-05-2026 Diabetes Screening Diabetes Screening [facility] Start: 03-14-2026 Diabetes Screening Diabetes Screening [facility] Start: 01-19-2026 Diabetes Screening Diabetes Screening [facility] Start: 01-10-2026 Diabetes Screening Diabetes Screening [facility] Start: 12-27-2025 Diabetes Screening Diabetes Screening [facility] Start: 12-13-2025 Diabetes Screening Diabetes Screening [facility] Start: 11-29-2025 Diabetes Screening Diabetes Screening [facility] Start: 11-22-2025 Diabetes Screening Diabetes Screening [facility] Start: 11-15-2025 Diabetes Screening Diabetes Screening [facility] Start: 11-08-2025 Diabetes Screening Diabetes Screening [facility] Start: 11-01-2025 Diabetes Screening Diabetes Screening [facility] Start: 10-21-2025 Diabetes Screening Diabetes Screening [facility] Start: 10-16-2025 Annual PCP Team Chronic Disease Visit Annual PCP Team Chronic Disease Visit [facility] Start: 10-04-2025 DIABETES SCREEN DIABETES SCREEN [facility] Start: 10-04-2025 Diabetes Screening Diabetes Screening [facility] Start: 09-27-2025 DIABETES SCREEN DIABETES SCREEN [facility] Start: 09-13-2025 DIABETES SCREEN DIABETES SCREEN [facility] Start: 09-03-2025 Annual PCP Team Chronic Disease Visit Annual PCP Team Chronic Disease Visit [facility] Start: 09-03-2025 Anxiety Screening Anxiety Screening [facility] Start: 09-03-2025 Depression Screening Depression Screening [facility] Start: 09-03-2025 Medicare Annual Wellness Visit Medicare Annual Wellness Visit [facility] Start: 09-01-2025 DIABETES SCREEN DIABETES SCREEN [facility] Start: 08-25-2025 DIABETES SCREEN DIABETES SCREEN [facility] Start: 08-18-2025 DIABETES SCREEN DIABETES SCREEN [facility] Start: 08-11-2025 DIABETES SCREEN DIABETES SCREEN [facility] Start: 08-06-2025 DIABETES SCREEN DIABETES SCREEN [facility] Start: 08-05-2025 DIABETES SCREEN DIABETES SCREEN [facility] Start: 08-04-2025 DIABETES SCREEN DIABETES SCREEN [facility] Start: 08-03-2025 DIABETES SCREEN DIABETES SCREEN [facility] Start: 07-23-2025 DIABETES SCREEN DIABETES SCREEN [facility] Start: 06-30-2025 DIABETES SCREEN DIABETES SCREEN [facility] Start: 06-02-2025 DIABETES SCREEN DIABETES SCREEN [facility] Start: 03-07-2025 End: 03-07-2025 Patient encounter procedure 03/07/2025 9:20 AM EST Office Visit Family Medicine [address] [id number] Keshav Phillips, 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 SERVICE REPRESENTATIVE.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 MANAGER [address] [place] [address] 6 month follow up [facility] [place] Comment on above: 6 month follow up Start: 02-24-2025 DIABETES SCREEN DIABETES SCREEN [facility] Start: 02-23-2025 DIABETES SCREEN DIABETES SCREEN [facility] Start: 01-02-2025 Annual PCP Team Chronic Disease Visit Annual PCP Team Chronic Disease Visit [facility] Start: 12-11-2024 End: 12-11-2024 Patient encounter procedure 12/11/2024 9:45 AM EST Office Visit Orthopaedics [address] [place] [address] Moon Tomlinson DO [address] [place], [place] [phone] Right knee Orthopaedics Comment on above: Right knee Start: 11-27-2024 End: 11-27-2024 Patient encounter procedure Radiology Comment on above: POST LUNG TX Start: 11-27-2024 End: 11-27-2024 ambulatory 11/27/2024 7:15 AM EDT Results Only [place] [address] [address] [place] [address] POST LUNG TX [place] [address] [address] Comment on above: POST LUNG TX Start: 11-21-2024 Annual PCP Team Chronic Disease Visit Annual PCP Team Chronic Disease Visit [facility] Start: 11-19-2024 End: 02-18-2025 CBC W Auto Differential panel - Blood COMPLETE BLOOD COUNT AND DIFFERENTIAL Lab Routine Aftercare following organ transplant 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 Encounter for monitoring tacrolimus therapy Essential hypertension Mixed hyperlipidemia Gastroesophageal reflux disease without esophagitis Steroid-induced osteopenia Obesity, Class II, BMI 35-39.9 Other chronic pain 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) Expected: 11/19/2024, Expires: 02/18/2025 [facility] Comment on above: Expected: 11/19/2024, Expires: Start: 11-19-2024 End: 02-18-2025 Comprehensive metabolic 2000 panel - Serum or Plasma COMPREHENSIVE METABOLIC PANEL Lab Routine Aftercare following organ transplant 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 Encounter for monitoring tacrolimus therapy Essential hypertension Mixed hyperlipidemia Gastroesophageal reflux disease without esophagitis Steroid-induced osteopenia Obesity, Class II, BMI 35-39.9 Other chronic pain 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) Expected: 11/19/2024, Expires: 02/18/2025 [facility] Comment on above: Expected: 11/19/2024, Expires: 6 Start: 11-19-2024 End: 02-18-2025 CYTOMEGALOVIRUS (CMV) DNA, QUANTITATIVE PCR, PLASMA CYTOMEGALOVIRUS (CMV) DNA, QUANTITATIVE PCR, PLASMA Lab Routine Aftercare following organ transplant 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 Encounter for monitoring tacrolimus therapy Essential hypertension Mixed hyperlipidemia Gastroesophageal reflux disease without esophagitis Steroid-induced osteopenia Obesity, Class II, BMI 35-39.9 Other chronic pain 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) Expected: 11/19/2024, Expires: 02/18/2025 [facility] Comment on above: Expected: 11/19/2024, Expires: 6 Start: 11-19-2024 End: 07-10-2025 HEART/LUNG REC POST TX DSA HEART/LUNG REC POST TX DSA ALLOGEN Routine Aftercare following organ transplant 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 Encounter for monitoring tacrolimus therapy Essential hypertension Mixed hyperlipidemia Gastroesophageal reflux disease without esophagitis Steroid-induced osteopenia Obesity, Class II, BMI 35-39.9 Other chronic pain 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) Expected: 11/19/2024, Expires: 07/10/2025 [facility] Comment on above: Expected: 11/19/2024, Expires: Start: 11-19-2024 End: 02-18-2025 IgG [Mass/volume] in Serum or Plasma IMMUNOGLOBULIN G Lab Routine Aftercare following organ transplant 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 Encounter for monitoring tacrolimus therapy Essential hypertension Mixed hyperlipidemia Gastroesophageal reflux disease without esophagitis Steroid-induced osteopenia Obesity, Class II, BMI 35-39.9 Other chronic pain 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) Expected: 11/19/2024, Expires: 02/18/2025 [facility] Comment on above: Expected: 11/19/2024, Expires: Start: 11-19-2024 End: 02-18-2025 Lactate dehydrogenase [Enzymatic activity/volume] in Serum or Plasma LACTATE DEHYDROGENASE Lab Routine Aftercare following organ transplant 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 Encounter for monitoring tacrolimus therapy Essential hypertension Mixed hyperlipidemia Gastroesophageal reflux disease without esophagitis Steroid-induced osteopenia Obesity, Class II, BMI 35-39.9 Other chronic pain 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) Expected: 11/19/2024, Expires: 02/18/2025 [facility] Comment on above: Expected: 11/19/2024, Expires: Start: 11-19-2024 End: 02-18-2025 Lipid 1996 panel - Serum or Plasma LIPID PANEL, FASTING Lab Routine Aftercare following organ transplant 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 Encounter for monitoring tacrolimus therapy Essential hypertension Mixed hyperlipidemia Gastroesophageal reflux disease without esophagitis Steroid-induced osteopenia Obesity, Class II, BMI 35-39.9 Other chronic pain 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) Expected: 11/19/2024, Expires: 02/18/2025 [facility] Comment on above: Expected: 11/19/2024, Expires: Start: 11-19-2024 End: 02-18-2025 Magnesium [Mass/volume] in Serum or Plasma MAGNESIUM Lab Routine Aftercare following organ transplant 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 Encounter for monitoring tacrolimus therapy Essential hypertension Mixed hyperlipidemia Gastroesophageal reflux disease without esophagitis Steroid-induced osteopenia Obesity, Class II, BMI 35-39.9 Other chronic pain 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) Expected: 11/19/2024, Expires: 02/18/2025 [facility] Comment on above: Expected: 11/19/2024, Expires: Start: 11-19-2024 End: 02-18-2025 Phosphate [Mass/volume] in Serum or Plasma PHOSPHORUS INORGANIC Lab Routine Aftercare following organ transplant 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 Encounter for monitoring tacrolimus therapy Essential hypertension Mixed hyperlipidemia Gastroesophageal reflux disease without esophagitis Steroid-induced osteopenia Obesity, Class II, BMI 35-39.9 Other chronic pain 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) Expected: 11/19/2024, Expires: 08/09/2025 [facility] Comment on above: Expected: 11/19/2024, Expires: Start: 11-19-2024 End: 02-18-2025 Tacrolimus [Mass/volume] in Blood TACROLIMUS/FK-506 BL Lab Routine Aftercare following organ transplant 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 Encounter for monitoring tacrolimus therapy Essential hypertension Mixed hyperlipidemia Gastroesophageal reflux disease without esophagitis Steroid-induced osteopenia Obesity, Class II, BMI 35-39.9 Other chronic pain 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) Expected: 11/19/2024, Expires: 02/18/2025 [facility] Comment on above: Expected: 11/19/2024, Expires: Start: 11-19-2024 End: 08-09-2025 XR Chest PA and Lateral XR CHEST 2V FRONTAL/LAT Radiology Routine Aftercare following organ transplant 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 Encounter for monitoring tacrolimus therapy Essential hypertension Mixed hyperlipidemia Gastroesophageal reflux disease without esophagitis Steroid-induced osteopenia Obesity, Class II, BMI 35-39.9 Other chronic pain 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) Expected: 11/19/2024, Expires: 08/09/2025 [facility] Comment on above: Expected: 11/19/2024, Expires: Start: 11-18-2024 DIABETES SCREEN DIABETES SCREEN [facility] Start: 11-09-2024 Screening for malignant neoplasm of lung Lung Cancer Screening [facility] Start: 10-30-2024 End: 10-30-2024 ambulatory 10/30/2024 1:40 PM EDT [facility] End[facility] [address] [place] [address] [place] [address] [place] [address] Primary osteoarthritis of right knee [M17.11] Endocrinology [facility] Comment on above: Primary osteoarthritis of right knee [M1 7.11] Start: 10-25-2024 End: 10-25-2024 Patient encounter procedure 10/25/2024 9:30 AM EDT Office Visit [facility] [address] [place] [id number] Ashley Jin PA-C [address] [place] [id number] 6m f/u [facility] Comment on above: 6m f/u Start: 10-25-2024 End: 10-25-2024 ambulatory 10/25/2024 9:20 AM EDT [facility] [address] [place] [id number] Ashley Jin PA-C [address] [place] [phone] 6m f/u [facility] Comment on above: 6m f/u Start: 10-08-2024 COVID-19 Vaccine ( season) COVID-19 Vaccine ( season) [facility] Start: 10-08-2024 Influenza vaccination Influ[facility] Start: 10-02-2024 End: 10-02-2024 ambulatory 10/02/2024 3:00 PM EDT OT/PT/Speech Visit [facility] [address] [place], [place] [phone] Himanshu Oviedo PT Primary osteoarthritis of right knee [M17.11] [facility] Comment on above: Primary osteoarthritis of right knee [M1 7.11] Start: 09-25-2024 End: 09-25-2024 Patient encounter procedure Orthopaedics Comment on above: POST LUNG TX right knee Right knee pain, xra y Start: 09-19-2024 Annual PCP Team Chronic Disease Visit Annual PCP Team Chronic Disease Visit [facility] Start: 09-19-2024 BP Controlled (<130/80) BP Controlled (<130/80) [facility] Start: 09-14-2024 BP Controlled (<130/80) BP Controlled (<130/80) [facility] Start: 09-03-2024 End: 12-03-2024 Hemoglobin A1c in Blood HEMOGLOBIN A1C Lab Routine Screening for diabetes mellitus Expected: 09/03/2024, Expires: 12/03/2024 [facility] Work Phone: Comment on above: Expected: 09/03/2024, Expires: Start: 09-03-2024 End: 09-03-2024 Patient encounter procedure 09/03/2024 9:20 AM EDT Office Visit [facility] [place] [address] [place], [place] [phone] Keshav Phillips APRN.[facility] [address] [place], [place] [phone] Annual [facility]ll[facility] Exam [facility] [place] Comment on above: Annual WEllness Exam Start: 07-22-2024 DIABETES SCREEN DIABETES SCREEN [facility] Start: 07-19-2024 End: 10-18-2024 CBC W Auto Differential panel - Blood COMPLETE BLOOD COUNT AND DIFFERENTIAL Lab Routine Aftercare following organ transplant 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 Encounter for monitoring tacrolimus therapy Essential hypertension Mixed hyperlipidemia Steroid-induced osteopenia Gastroesophageal reflux disease without esophagitis Expected: 07/19/2024, Expires: 10/18/2024 [facility] Comment on above: Expected: 07/19/2024, Expires: Start: 07-19-2024 End: 10-18-2024 Comprehensive metabolic 2000 panel - Serum or Plasma COMPREHENSIVE METABOLIC PANEL Lab Routine Aftercare following organ transplant 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 Encounter for monitoring tacrolimus therapy Essential hypertension Mixed hyperlipidemia Steroid-induced osteopenia Gastroesophageal reflux disease without esophagitis Expected: 07/19/2024, Expires: 10/18/2024 [facility] Comment on above: Expected: 07/19/2024, Expires: Start: 07-19-2024 End: 10-18-2024 CYTOMEGALOVIRUS (CMV) DNA, QUANTITATIVE PCR, PLASMA CYTOMEGALOVIRUS (CMV) DNA, QUANTITATIVE PCR, PLASMA Lab Routine Aftercare following organ transplant 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 Encounter for monitoring tacrolimus therapy Essential hypertension Mixed hyperlipidemia Steroid-induced osteopenia Gastroesophageal reflux disease without esophagitis Expected: 07/19/2024, Expires: 10/18/2024 [facility] Comment on above: Expected: 07/19/2024, Expires: Start: 07-19-2024 End: 10-18-2024 Nelsy Pineda virus DNA [#/volume] (viral load) in Blood by MARY CARMEN with probe detection NELSY-PINEDA VIRUS (EBV) DNA, QUANTITATIVE PCR, PLASMA Lab Routine Aftercare following organ transplant 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 Encounter for monitoring tacrolimus therapy Essential hypertension Mixed hyperlipidemia Steroid-induced osteopenia Gastroesophageal reflux disease without esophagitis Expected: 07/19/2024, Expires: 10/18/2024 [facility] Comment on above: Expected: 07/19/2024, Expires: Start: 07-19-2024 End: 04-17-2025 HEART/LUNG REC POST TX DSA HEART/LUNG REC POST TX DSA ALLOGEN Routine Aftercare following organ transplant 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 Encounter for monitoring tacrolimus therapy Essential hypertension Mixed hyperlipidemia Steroid-induced osteopenia Gastroesophageal reflux disease without esophagitis Expected: 07/19/2024, Expires: 04/17/2025 [facility] Comment on above: Expected: 07/19/2024, Expires: Start: 07-19-2024 End: 10-18-2024 IgG [Mass/volume] in Serum or Plasma IMMUNOGLOBULIN G Lab Routine Aftercare following organ transplant 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 Encounter for monitoring tacrolimus therapy Essential hypertension Mixed hyperlipidemia Steroid-induced osteopenia Gastroesophageal reflux disease without esophagitis Expected: 07/19/2024, Expires: 10/18/2024 [facility] Comment on above: Expected: 07/19/2024, Expires: Start: 07-19-2024 End: 10-18-2024 Lactate dehydrogenase [Enzymatic activity/volume] in Serum or Plasma LACTATE DEHYDROGENASE Lab Routine Aftercare following organ transplant 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 Encounter for monitoring tacrolimus therapy Essential hypertension Mixed hyperlipidemia Steroid-induced osteopenia Gastroesophageal reflux disease without esophagitis Expected: 07/19/2024, Expires: 10/18/2024 [facility] Comment on above: Expected: 07/19/2024, Expires: Start: 07-19-2024 End: 10-18-2024 Lipid 1996 panel - Serum or Plasma LIPID PANEL, FASTING Lab Routine Aftercare following organ transplant 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 Encounter for monitoring tacrolimus therapy Essential hypertension Mixed hyperlipidemia Steroid-induced osteopenia Gastroesophageal reflux disease without esophagitis Expected: 07/19/2024, Expires: 10/18/2024 [facility] Comment on above: Expected: 07/19/2024, Expires: Start: 07-19-2024 End: 10-18-2024 Magnesium [Mass/volume] in Serum or Plasma MAGNESIUM Lab Routine Aftercare following organ transplant 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 Encounter for monitoring tacrolimus therapy Essential hypertension Mixed hyperlipidemia Steroid-induced osteopenia Gastroesophageal reflux disease without esophagitis Expected: 07/19/2024, Expires: 10/18/2024 [facility] Comment on above: Expected: 07/19/2024, Expires: Start: 07-19-2024 End: 05-17-2025 SPIROMETRY BASELINE ONLY SPIROMETRY BASELINE ONLY PFT Routine Aftercare following organ transplant 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 Encounter for monitoring tacrolimus therapy Essential hypertension Mixed hyperlipidemia Steroid-induced osteopenia Gastroesophageal reflux disease without esophagitis Expected: 07/19/2024, Expires: 05/17/2025 [facility] Comment on above: Expected: 07/19/2024, Expires: Start: 07-19-2024 End: 10-18-2024 Tacrolimus [Mass/volume] in Blood TACROLIMUS/FK-506 BL Lab Routine Aftercare following organ transplant 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 Encounter for monitoring tacrolimus therapy Essential hypertension Mixed hyperlipidemia Steroid-induced osteopenia Gastroesophageal reflux disease without esophagitis Expected: 07/19/2024, Expires: 10/18/2024 [facility] Comment on above: Expected: 07/19/2024, Expires: Start: 07-19-2024 End: 05-17-2025 XR Chest PA and Lateral XR CHEST 2V FRONTAL/LAT Radiology Routine Aftercare following organ transplant 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 Encounter for monitoring tacrolimus therapy Essential hypertension Mixed hyperlipidemia Steroid-induced osteopenia Gastroesophageal reflux disease without esophagitis Expected: 07/19/2024, Expires: 05/17/2025 [facility] Work Phone: Comment on above: Expected: 07/19/2024, Expires: Start: 07-17-2024 End: 10-16-2024 CYTOMEGALOVIRUS (CMV) DNA, QUANTITATIVE PCR, PLASMA [facility] Work Phone: Comment on above: Expected: 07/17/2024, Expires: 5 Start: 07-17-2024 End: 10-16-2024 Nelsy Pineda virus DNA [#/volume] (viral load) in Blood by MARY CARMEN with probe detection [facility] Comment on above: Expected: 07/17/2024, Expires: Start: 07-17-2024 Screening for malignant neoplasm of colon [facility] Start: 07-17-2024 End: 10-16-2024 Tacrolimus [Mass/volume] in Blood [facility] Comment on above: Expected: 07/17/2024, Expires: Start: 07-17-2024 End: 07-17-2024 ambulatory 07/17/2024 7:30 AM EDT Procedure Pulmonary Medicine [address] [address] 1, Pulm Fct Lab Main [address] [place] [address] POST LUNG TXP Pulmonary Medicine Comment on above: POST LUNG TXP Start: 07-17-2024 End: 07-17-2024 Patient encounter procedure [place] [id number] [facility] Station Comment on above: POST LUNG TXP Start: 07-10-2024 Annual PCP Team Chronic Disease Visit Annual PCP Team Chronic Disease Visit [facility] Start: 07-10-2024 Anxiety Screening Anxiety Screening [facility] Start: 07-10-2024 BP Controlled (<130/80) BP Controlled (<130/80) [facility] Start: 07-10-2024 Depression Screening Depression Screening [facility] Start: 07-10-2024 Hepatitis A Vaccine (3 of 3 - Hep A Twinrix risk 3-dose series) Hepatitis A Vaccine (3 of 3 - Hep A Twinrix risk 3-dose series) [facility] Comment on above: Postponed from 12/22/2021 (Declined at t his time) Start: 07-10-2024 Meningococcal Conjugate Vaccine (1 - Risk 2-dose series) Meningococcal Conjugate Vaccine (1 - Risk 2-dose series) [facility] Comment on above: Postponed from 1958 (Declined at t his time) Start: 07-10-2024 Screening for malignant neoplasm of lung Lung Cancer Screening [facility] Start: 05-31-2024 End: 05-31-2024 Patient encounter procedure 05/31/2024 1:30 PM EDT Office Visit Pain Management [address] [address] Taylor Lynch, 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 SERVICE REPRESENTATIVE.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 MANAGER [address] [place] [address] 2 Week follow up after injection Pain Management Comment on above: 2 Week follow up after injection Start: 05-21-2024 End: 05-21-2024 Patient encounter procedure Ophthalmology Comment on above: after cataract/dayday 1 year AFTER CATARACTS-DRY EYE Start: 05-20-2024 DIABETES SCREEN DIABETES SCREEN [facility] Start: 05-17-2024 End: 05-17-2024 Admission to same day surgery center 05/17/2024 1:56 PM EDT - 05/17/2024 2:25 PM EDT Surgery [facility] Surgery [address] [place] [address] Conchita Martel MD [address] [facility] [place] [address] INJECTION(S),ANESTHETIC AGENT(S) AND/OR STEROID GENICULAR NERVE BRANCHES [facility] Comment on above: INJECTION(S),ANESTHETIC AGENT(S) AND/OR STEROID GENICULAR NERVE BRANCHES Start: 05-17-2024 End: 05-17-2024 Injection aa&/strd genicular nrv branches w/img INJECTION(S),ANESTHETIC AGENT(S) AND/OR STEROID GENICULAR NERVE BRANCHES Primary osteoarthritis of right knee 05/17/2024 1:56 PM EDT ME OR Start: 05-17-2024 Subsequent hospital visit by physician 05/17/2024 1:56 PM EDT Hospital Encounter [facility] [address] [place] [address] Conchita Martel MD [address] [facility] [place] [address] Primary osteoarthritis of right knee [M17.11] [facility] Comment on above: Primary osteoarthritis of right knee [M1 7.11] Start: 05-17-2024 End: 05-17-2024 Admission to same day surgery center 05/17/2024 12:19 PM EDT - 05/17/2024 12:48 PM EDT Surgery [facility] Surgery [address] [place] [address] Conchita Martel MD [address] [facility] [place] [address] INJECTION(S),ANESTHETIC AGENT(S) AND/OR STEROID GENICULAR NERVE BRANCHES [facility] Comment on above: INJECTION(S),ANESTHETIC AGENT(S) AND/OR STEROID GENICULAR NERVE BRANCHES Start: 05-17-2024 End: 05-17-2024 Injection aa&/strd genicular nrv branches w/img INJECTION(S),ANESTHETIC AGENT(S) AND/OR STEROID GENICULAR NERVE BRANCHES Primary osteoarthritis of right knee 05/17/2024 12:19 PM EDT ME OR Start: 05-17-2024 Subsequent hospital visit by physician 05/17/2024 12:19 PM EDT Hospital Encounter [facility] Surgery [address] [place] [address] Conchita Martel MD [address] [facility] [place] [address] Primary osteoarthritis of right knee [M17.11] [facility] Comment on above: Primary osteoarthritis of right knee [M1 7.11] Start: 05-10-2024 Covid-19 Vaccine (8 - Moderna risk 2023- season) Covid-19 Vaccine (8 - Moderna risk season) [facility] Start: 04-30-2024 End: 04-30-2024 Patient encounter procedure 04/30/2024 1:00 PM EDT Office Visit Pain Management [address] [address] Conchita Martel MD [address] [facility] [place] [address] Primary osteoarthritis of right knee [M17.11] Pain Management Comment on above: Primary osteoarthritis of right knee [M1 7.11] Start: 04-28-2024 BP Controlled (<130/80) BP Controlled (<130/80) 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 Vitamin D deficiency care home (current) use 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 Elevated alkaline phosphatase level Expected: 04/24/2024, Expires: 07/24/2024 [facility] Work Phone: Comment on above: Expected: 04/24/2024, Expires: Start: 04-24-2024 End: 07-24-2024 ALK PHOS ISOENZYM BL ALK PHOS ISOENZYM BL Lab Routine Steroid-induced osteopenia 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, 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 Vitamin D deficiency care home (current) use 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 Elevated alkaline phosphatase level Expected: 04/24/2024, Expires: 07/24/2024 [facility] Comment on above: Expected: 04/24/2024, Expires: Start: 04-24-2024 BP Controlled (<130/80) BP Controlled (<130/80) [facility] Start: 04-24-2024 End: 07-24-2024 CBC W Auto Differential panel - Blood COMPLETE BLOOD COUNT AND DIFFERENTIAL Lab Routine Aftercare following organ transplant 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 Encounter for monitoring tacrolimus therapy Essential hypertension Mixed hyperlipidemia Steroid-induced osteopenia Gastroesophageal reflux disease without esophagitis Obesity, Class II, BMI 35-39.9 Expected: 04/24/2024, Expires: 07/24/2024 [facility] Comment on above: Expected: 04/24/2024, Expires: Start: 04-24-2024 End: 07-24-2024 Comprehensive metabolic 2000 panel - Serum or Plasma COMPREHENSIVE METABOLIC PANEL Lab Routine Aftercare following organ transplant 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 Encounter for monitoring tacrolimus therapy Essential hypertension Mixed hyperlipidemia Steroid-induced osteopenia Gastroesophageal reflux disease without esophagitis Obesity, Class II, BMI 35-39.9 Expected: 04/24/2024, Expires: 07/24/2024 [facility] Comment on above: Expected: 04/24/2024, Expires: Start: 04-24-2024 End: 07-24-2024 CYTOMEGALOVIRUS (CMV) DNA, QUANTITATIVE PCR, PLASMA CYTOMEGALOVIRUS (CMV) DNA, QUANTITATIVE PCR, PLASMA Lab Routine Aftercare following organ transplant 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 Encounter for monitoring tacrolimus therapy Essential hypertension Mixed hyperlipidemia Steroid-induced osteopenia Gastroesophageal reflux disease without esophagitis Obesity, Class II, BMI 35-39.9 Expected: 04/24/2024, Expires: 07/24/2024 [facility] Comment on above: Expected: 04/24/2024, Expires: Start: 04-24-2024 End: 07-24-2024 Nelsy Pineda virus DNA [#/volume] (viral load) in Blood by MARY CARMEN with probe detection NELSY-PINEDA VIRUS (EBV) DNA, QUANTITATIVE PCR, PLASMA Lab Routine Aftercare following organ transplant 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 Encounter for monitoring tacrolimus therapy Essential hypertension Mixed hyperlipidemia Steroid-induced osteopenia Gastroesophageal reflux disease without esophagitis Obesity, Class II, BMI 35-39.9 Expected: 04/24/2024, Expires: 07/24/2024 [facility] Comment on above: Expected: 04/24/2024, Expires: Start: 04-24-2024 End: 01-11-2025 HEART/LUNG REC POST TX DSA HEART/LUNG REC POST TX DSA ALLOGEN Routine Aftercare following organ transplant 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 Encounter for monitoring tacrolimus therapy Essential hypertension Mixed hyperlipidemia Steroid-induced osteopenia Gastroesophageal reflux disease without esophagitis Obesity, Class II, BMI 35-39.9 Expected: 04/24/2024, Expires: 01/11/2025 [facility] Comment on above: Expected: 04/24/2024, Expires: Start: 04-24-2024 End: 07-24-2024 IgG [Mass/volume] in Serum or Plasma IMMUNOGLOBULIN G Lab Routine Aftercare following organ transplant 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 Encounter for monitoring tacrolimus therapy Essential hypertension Mixed hyperlipidemia Steroid-induced osteopenia Gastroesophageal reflux disease without esophagitis Obesity, Class II, BMI 35-39.9 Expected: 04/24/2024, Expires: 07/24/2024 [facility] Comment on above: Expected: 04/24/2024, Expires: Start: 04-24-2024 End: 07-24-2024 Lactate dehydrogenase [Enzymatic activity/volume] in Serum or Plasma LACTATE DEHYDROGENASE Lab Routine Aftercare following organ transplant 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 Encounter for monitoring tacrolimus therapy Essential hypertension Mixed hyperlipidemia Steroid-induced osteopenia Gastroesophageal reflux disease without esophagitis Obesity, Class II, BMI 35-39.9 Expected: 04/24/2024, Expires: 07/24/2024 [facility] Comment on above: Expected: 04/24/2024, Expires: Start: 04-24-2024 End: 07-24-2024 Lipid 1996 panel - Serum or Plasma LIPID PANEL BASIC Lab Routine Aftercare following organ transplant 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 Encounter for monitoring tacrolimus therapy Essential hypertension Mixed hyperlipidemia Steroid-induced osteopenia Gastroesophageal reflux disease without esophagitis Obesity, Class II, BMI 35-39.9 Expected: 04/24/2024, Expires: 07/24/2024 [facility] Comment on above: Expected: 04/24/2024, Expires: Start: 04-24-2024 End: 07-24-2024 Magnesium [Mass/volume] in Serum or Plasma MAGNESIUM Lab Routine Aftercare following organ transplant 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 Encounter for monitoring tacrolimus therapy Essential hypertension Mixed hyperlipidemia Steroid-induced osteopenia Gastroesophageal reflux disease without esophagitis Obesity, Class II, BMI 35-39.9 Expected: 04/24/2024, Expires: 07/24/2024 [facility] Comment on above: Expected: 04/24/2024, Expires: Start: 04-24-2024 End: 07-24-2024 MISC SEND OUT TST 1 [facility] SEND OUT TST 1 Lab Routine Research study patient Expected: 04/24/2024, Expires: 07/24/2024 [facility] Work Phone: Comment on above: Expected: 04/24/2024, Expires: 5 Start: 04-24-2024 End: 02-10-2025 SPIROMETRY BASELINE ONLY [facility] Comment on above: Expected: 04/24/2024, Expires: 6 Start: 04-24-2024 End: 07-24-2024 Tacrolimus [Mass/volume] in Blood TACROLIMUS/FK-506 BL Lab Routine Aftercare following organ transplant 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 Encounter for monitoring tacrolimus therapy Essential hypertension Mixed hyperlipidemia Steroid-induced osteopenia Gastroesophageal reflux disease without esophagitis Obesity, Class II, BMI 35-39.9 Expected: 04/24/2024, Expires: 07/24/2024 [facility] Comment on above: Expected: 04/24/2024, Expires: Start: 04-24-2024 End: 02-10-2025 XR Chest PA and Lateral XR CHEST 2V FRONTAL/LAT Radiology Routine Aftercare following organ transplant 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 Encounter for monitoring tacrolimus therapy Essential hypertension Mixed hyperlipidemia Steroid-induced osteopenia Gastroesophageal reflux disease without esophagitis Obesity, Class II, BMI 35-39.9 Expected: 04/24/2024, Expires: 02/10/2025 [facility] Work Phone: Comment on above: Expected: 04/24/2024, Expires: 6 Start: 04-24-2024 End: 04-24-2024 Patient encounter procedure Pulmonary Medicine Comment on above: Post Lung Tx Aftercare following organ transplant (Primary Dx); 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; Encounter for monitoring tacrolimus therapy; Essential hypertension; Mixed hyperlipidemia; Steroid-induced osteopenia; Gastroesophageal reflux disease without esophagitis Start: 04-24-2024 End: 04-24-2024 Patient encounter procedure 04/24/2024 9:30 AM EDT Office Visit [facility] [address] [address] Ashley Jin PA-C [address] [place] [phone] Osteopenia post-LT [facility] Comment on above: Osteopenia post-LT Start: 04-24-2024 End: 04-24-2024 ambulatory 04/24/2024 9:15 AM EDT Procedure Pulmonary Medicine [address] [address] 9, Pulm Fct Lab Main [address] [place] [address] Post Lung Tx Pulmonary Medicine Comment on above: Post Lung Tx Start: 04-24-2024 End: 04-24-2024 Patient encounter procedure Main [place] [facility] Comment on above: Post Lung Tx Start: 04-13-2024 DIABETES SCREEN DIABETES SCREEN [facility] Start: 04-10-2024 BP Controlled (<130/80) BP Controlled (<130/80) [facility] Start: 03-02-2024 End: 03-02-2024 Patient encounter procedure 03/02/2024 1:00 PM EST Office Visit [facility] [address] [place], [place] [phone] Timothy Best V, DO [address] [place], [place] [phone] Durolane injection into the right knee until 02/06/2025. [facility] Comment on above: Durolane injection into the right knee u ntil 02/06/2025. 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 Encounter for monitoring tacrolimus therapy Essential hypertension Mixed hyperlipidemia Steroid-induced osteopenia Gastroesophageal reflux disease without esophagitis Expected: 01/19/2024, Expires: 04/19/2024 [facility] Comment on above: Expected: 01/19/2024, Expires: Start: 01-19-2024 End: 04-19-2024 Comprehensive metabolic 2000 panel - Serum or Plasma COMPREHENSIVE METABOLIC PANEL Lab Routine Aftercare following organ transplant 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 Encounter for monitoring tacrolimus therapy Essential hypertension Mixed hyperlipidemia Steroid-induced osteopenia Gastroesophageal reflux disease without esophagitis Expected: 01/19/2024, Expires: 04/19/2024 [facility] Comment on above: Expected: 01/19/2024, Expires: Start: 01-19-2024 End: 04-19-2024 CYTOMEGALOVIRUS (CMV) DNA, QUANTITATIVE PCR, PLASMA CYTOMEGALOVIRUS (CMV) DNA, QUANTITATIVE PCR, PLASMA Lab Routine Aftercare following organ transplant 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 Encounter for monitoring tacrolimus therapy Essential hypertension Mixed hyperlipidemia Steroid-induced osteopenia Gastroesophageal reflux disease without esophagitis Expected: 01/19/2024, Expires: 04/19/2024 [facility] Comment on above: Expected: 01/19/2024, Expires: Start: 01-19-2024 End: 12-09-2024 DXA Cervical and thoracic and lumbar spine Views for vertebral fracture DXA - VFA ASSESS ONLY Radiology Routine Aftercare following organ transplant Expected: 01/19/2024, Expires: 12/09/2024 [facility] Comment on above: Expected: 01/19/2024, Expires: Start: 01-19-2024 End: 04-19-2024 Nelsy Pineda virus DNA [#/volume] (viral load) in Blood by MARY CARMEN with probe detection NELSY-PINEDA VIRUS DNA QUANTIFICATION BY PCR, PLASMA Lab Routine Aftercare following organ transplant 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 Encounter for monitoring tacrolimus therapy Essential hypertension Mixed hyperlipidemia Steroid-induced osteopenia Gastroesophageal reflux disease without esophagitis Expected: 01/19/2024, Expires: 04/19/2024 [facility] Comment on above: Expected: 01/19/2024, Expires: Start: 01-19-2024 End: 10-31-2024 HEART/LUNG REC POST TX DSA HEART/LUNG REC POST TX DSA ALLOGEN Routine Aftercare following organ transplant 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 Encounter for monitoring tacrolimus therapy Essential hypertension Mixed hyperlipidemia Steroid-induced osteopenia Gastroesophageal reflux disease without esophagitis Expected: 01/19/2024, Expires: 10/31/2024 [facility] Comment on above: Expected: 01/19/2024, Expires: Start: 01-19-2024 End: 04-19-2024 IgG [Mass/volume] in Serum or Plasma IMMUNOGLOBULIN G Lab Routine Aftercare following organ transplant 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 Encounter for monitoring tacrolimus therapy Essential hypertension Mixed hyperlipidemia Steroid-induced osteopenia Gastroesophageal reflux disease without esophagitis Expected: 01/19/2024, Expires: 04/19/2024 [facility] Comment on above: Expected: 01/19/2024, Expires: Start: 01-19-2024 End: 04-19-2024 Lactate dehydrogenase [Enzymatic activity/volume] in Serum or Plasma LACTATE DEHYDROGENASE Lab Routine Aftercare following organ transplant 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 Encounter for monitoring tacrolimus therapy Essential hypertension Mixed hyperlipidemia Steroid-induced osteopenia Gastroesophageal reflux disease without esophagitis Expected: 01/19/2024, Expires: 04/19/2024 [facility] Comment on above: Expected: 01/19/2024, Expires: Start: 01-19-2024 End: 04-19-2024 Lipid 1996 panel - Serum or Plasma LIPID PANEL BASIC Lab Routine Aftercare following organ transplant 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 Encounter for monitoring tacrolimus therapy Essential hypertension Mixed hyperlipidemia Steroid-induced osteopenia Gastroesophageal reflux disease without esophagitis Expected: 01/19/2024, Expires: 04/19/2024 [facility] Comment on above: Expected: 01/19/2024, Expires: Start: 01-19-2024 End: 04-19-2024 Magnesium [Mass/volume] in Serum or Plasma MAGNESIUM Lab Routine Aftercare following organ transplant 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 Encounter for monitoring tacrolimus therapy Essential hypertension Mixed hyperlipidemia Steroid-induced osteopenia Gastroesophageal reflux disease without esophagitis Expected: 01/19/2024, Expires: 04/19/2024 [facility] Comment on above: Expected: 01/19/2024, Expires: Start: 01-19-2024 End: 04-19-2024 MISC SEND OUT TST 1 MISC SEND OUT TST 1 Lab Routine Research study patient Expected: 01/19/2024, Expires: 04/19/2024 [facility] Work Phone: Comment on above: Expected: 01/19/2024, Expires: Start: 01-19-2024 End: 04-19-2024 PSA/PROSTATE SPECIFIC ANTIGEN SCREENING PSA/PROSTATE SPECIFIC ANTIGEN SCREENING Lab Routine Aftercare following organ transplant Encounter for screening for malignant neoplasm of prostate Expected: 01/19/2024, Expires: 04/19/2024 [facility] Comment on above: Expected: 01/19/2024, Expires: Start: 01-19-2024 End: 11-30-2024 SPIROMETRY BASELINE ONLY SPIROMETRY BASELINE ONLY PFT Routine Aftercare following organ transplant 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 Encounter for monitoring tacrolimus therapy Essential hypertension Mixed hyperlipidemia Steroid-induced osteopenia Gastroesophageal reflux disease without esophagitis Expected: 01/19/2024, Expires: 11/30/2024 [facility] Comment on above: Expected: 01/19/2024, Expires: Start: 01-19-2024 End: 04-19-2024 Tacrolimus [Mass/volume] in Blood TACROLIMUS/FK-506 BL Lab Routine Aftercare following organ transplant 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 Encounter for monitoring tacrolimus therapy Essential hypertension Mixed hyperlipidemia Steroid-induced osteopenia Gastroesophageal reflux disease without esophagitis Expected: 01/19/2024, Expires: 04/19/2024 [facility] Comment on above: Expected: 01/19/2024, Expires: Start: 01-19-2024 End: 11-30-2024 XR Chest PA and Lateral XR CHEST 2V FRONTAL/LAT Radiology Routine Aftercare following organ transplant 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 Encounter for monitoring tacrolimus therapy Essential hypertension Mixed hyperlipidemia Steroid-induced osteopenia Gastroesophageal reflux disease without esophagitis Expected: 01/19/2024, Expires: 11/30/2024 [facility] Work Phone: Comment on above: Expected: 01/19/2024, Expires: Start: 01-19-2024 End: 01-19-2024 ambulatory 01/19/2024 10:30 AM EST Procedure Pulmonary Medicine [address] [address] 7, Pulm Fct Lab Main [address] [place] [address] POST LUNG TX Pulmonary Medicine Comment on above: POST LUNG TX Start: 01-19-2024 End: 01-19-2024 Patient encounter procedure Radiology Comment on above: POST LUNG TX Start: 01-19-2024 End: 01-19-2024 ambulatory 01/19/2024 7:45 AM EST Results Only Main [place] [facility] [address] [address] POST LUNG TX [facility] Comment on above: POST LUNG TX Start: 01-18-2024 End: 01-18-2024 Patient encounter procedure 01/18/2024 1:00 PM EST Office Visit [facility] [address] [place] [address] Timothy Best V, DO [address] [place] [address] Acute pain of right knee [M25.561] [facility] Comment on above: Acute pain of right knee [M25.561] Start: 01-09-2024 End: 01-09-2024 Patient encounter procedure 01/09/2024 1:00 PM EST Office Visit [facility] [address] [place] [address] Keshav Phillips, ANA LAURA.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 MANAGER [address] [place], [place] [phone] 6 month follow up Family [facility] [place] Comment on above: 6 month follow up Start: 01-05-2024 Covid-19 Vaccine () Covid-19 Vaccine () [facility] Start: 01-03-2024 End: 01-03-2024 Patient encounter procedure 01/03/2024 9:00 AM EST Office Visit Family [facility] [address] [place] [phone] Keshav Phillips, ANA LAURA.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 MANAGER [address] [place] [phone] 6 week med check [facility] Comment on above: 6 week med check Start: 11-22-2023 End: 11-22-2023 Patient encounter procedure 11/22/2023 9:00 AM EDT Office Visit [facility] [address] [place] [address] Keshav Phillips, 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 SERVICE REPRESENTATIVE.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 MANAGER [address] [place] [phone] 2m f/u Family [facility] Comment on above: 2m f/u Start: 11-21-2023 End: 11-21-2023 Patient encounter procedure 11/21/2023 7:40 AM EDT Office Visit [facility] [address] [place] [phone] Keshav Phillips, 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 SERVICE REPRESENTATIVE.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 MANAGER [address] [place] [phone] 2 month follow up anxiety [facility] [place] Comment on above: 2 month follow up anxiety Start: 11-18-2023 End: 11-18-2023 Admission to same day surgery center Admitting Comment on above: BRONCHOSCOPY FLEXIBLE ADULT Start: 11-18-2023 End: 11-18-2023 [facility] incl fluor gdnce dx w/cell washg spx PULM LAB H23 Start: 11-18-2023 Subsequent hospital visit by physician Admitting Comment on above: ILD (interstitial lung disease) (HCC) [J 84.9] Start: 11-18-2023 End: 11-18-2023 ambulatory 11/18/2023 7:15 AM EDT Results Only Cardiology [address] [place] [address] Pre Op Testing Cardiology Comment on above: Pre Op Testing Start: 11-10-2023 End: 02-09-2024 25-hydroxyvitamin D3 [Mass/volume] in Serum or Plasma VITAMIN D 25 HYDROXY Lab Routine Steroid-induced osteopenia 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, bilateral (HCC) care home current use of systemic steroids Vitamin D deficiency Expected: 11/10/2023, Expires: 02/09/2024 [facility] Comment on above: Expected: 11/10/2023, Expires: Start: 11-10-2023 End: 02-09-2024 Calcium [Mass/volume] in Serum or Plasma CALCIUM, TOTAL Lab Routine Steroid-induced osteopenia 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, bilateral (HCC) care home current use of systemic steroids Vitamin D deficiency Expected: 11/10/2023, Expires: 02/09/2024 [facility] Comment on above: Expected: 11/10/2023, Expires: Start: 11-10-2023 End: 02-09-2024 Collagen crosslinked C-telopeptide [Mass/volume] in Serum or Plasma C TELOPEPTIDE, BETA Lab Routine Steroid-induced osteopenia 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, 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 Vitamin D deficiency Expected: 11/10/2023, Expires: 02/09/2024 [facility] Comment on above: Expected: 11/10/2023, Expires: Start: 11-10-2023 End: 02-09-2024 CREATININE BLD CREATININE BLD Lab Routine Steroid-induced osteopenia 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, bilateral (HCC) care home current use of systemic steroids Vitamin D deficiency Expected: 11/10/2023, Expires: 02/09/2024 [facility] Work Phone: Comment on above: Expected: 11/10/2023, Expires: Start: 11-10-2023 End: 08-24-2024 CT Chest WO contrast CT CHEST WO IVCON Radiology Routine Follow-up examination after lung transplant (HCC) Expected: 11/10/2023, Expires: 08/24/2024 [facility] Work Phone: Comment on above: Expected: 11/10/2023, Expires: Start: 11-10-2023 End: 02-09-2024 Respiratory pathogens DNA and RNA panel - Nasopharynx by MARY CARMEN with probe detection EXPANDED RESPIRATORY PATHOGEN PANEL BY PCR, ROUTINE Lab Routine Aftercare following organ transplant Acute upper respiratory infection, unspecified 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 (HCC) Expected: 11/10/2023, Expires: 02/09/2024 [facility] Comment on above: Expected: 11/10/2023, Expires: Start: 11-10-2023 End: 11-10-2023 Patient encounter procedure 11/10/2023 11:45 AM EDT Office Visit Pulmonary Medicine [address] [place] [phone] Osbaldo Magallanes MD [address] [place] [address] post lung txp Pulmonary Medicine Comment on above: post lung txp Start: 11-10-2023 End: 11-10-2023 ambulatory 11/10/2023 10:00 AM EDT Procedure Pulmonary Medicine [address] [place] [phone], Pulm Fct Lab Main [address] [place] [address] post lung txp Pulmonary Medicine Comment on above: post lung txp Start: 11-10-2023 End: 11-10-2023 Patient encounter procedure 11/10/2023 8:30 AM EDT Appointment Radiology [address] [address] post lung txp Radiology Comment on above: post lung txp Start: 11-10-2023 End: 11-10-2023 Patient encounter procedure [address] Station Comment on above: post lung txp Post Lung Transplant POST LUNG TRANSPLANT EVAL Start: 11-08-2023 End: 11-08-2023 ambulatory 11/08/2023 9:00 AM EDT [facility] Infectious Disease [address] [place] [address] [place] [address] POST LUNG TRANSPLANT EVAL Infectious Disease Comment on above: POST LUNG TRANSPLANT EVAL Start: 10-27-2023 BP Controlled (<130/80) BP Controlled (<130/80) [facility] Start: 10-26-2023 End: 01-25-2024 CBC W Auto Differential panel - Blood COMPLETE BLOOD COUNT AND DIFFERENTIAL Lab Routine 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) Expected: 10/26/2023, Expires: 01/25/2024 [facility] Comment on above: Expected: 10/26/2023, Expires: 4 Start: 10-26-2023 End: 01-25-2024 Comprehensive metabolic 2000 panel - Serum or Plasma COMPREHENSIVE METABOLIC PANEL Lab Routine Lung replaced by transplant ([facility]) Expected: 10/26/2023, Expires: 01/25/2024 [facility] Comment on above: Expected: 10/26/2023, Expires: 4 Start: 10-26-2023 End: 01-25-2024 CYTOMEGALOVIRUS (CMV) DNA, QUANTITATIVE PCR, PLASMA CYTOMEGALOVIRUS (CMV) DNA, QUANTITATIVE PCR, PLASMA Lab Routine 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) Expected: 10/26/2023, Expires: 01/25/2024 [facility] Comment on above: Expected: 10/26/2023, Expires: 4 Start: 10-26-2023 End: 01-25-2024 Nelsy Pineda virus DNA [#/volume] (viral load) in Blood by MARY CARMEN with probe detection NELSY-PINEDA VIRUS DNA QUANTIFICATION BY PCR, PLASMA Lab Routine 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) Expected: 10/26/2023, Expires: 01/25/2024 [facility] Comment on above: Expected: 10/26/2023, Expires: 4 Start: 10-26-2023 End: 01-25-2024 IgG [Mass/volume] in Serum or Plasma IMMUNOGLOBULIN G Lab Routine Lung replaced by transplant ([facility]) Expected: 10/26/2023, Expires: 01/25/2024 [facility] Comment on above: Expected: 10/26/2023, Expires: 4 Start: 10-26-2023 End: 01-25-2024 Lactate dehydrogenase [Enzymatic activity/volume] in Serum or Plasma LACTATE DEHYDROGENASE Lab Routine Lung replaced by transplant ([facility]) Expected: 10/26/2023, Expires: 01/25/2024 [facility] Comment on above: Expected: 10/26/2023, Expires: Start: 10-26-2023 End: 01-25-2024 Lipid 1996 panel - Serum or Plasma LIPID PANEL BASIC Lab Routine Lung replaced by transplant ([facility]) Abnormal findings on diagnostic imaging of other parts of digestive tract Expected: 10/26/2023, Expires: 01/25/2024 [facility] Comment on above: Expected: 10/26/2023, Expires: 4 Start: 10-26-2023 End: 01-25-2024 Magnesium [Mass/volume] in Serum or Plasma MAGNESIUM Lab Routine Lung replaced by transplant ([facility]) Expected: 10/26/2023, Expires: 01/25/2024 [facility] Comment on above: Expected: 10/26/2023, Expires: 4 Start: 10-26-2023 End: 01-25-2024 PSA/PROSTATE SPECIFIC ANTIGEN SCREENING PSA/PROSTATE SPECIFIC ANTIGEN SCREENING Lab Routine 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, bilateral ([facility]) Encounter for screening for malignant neoplasm of prostate Expected: 10/26/2023, Expires: 01/25/2024 [facility] Comment on above: Expected: 10/26/2023, Expires: 4 Start: 10-26-2023 End: 08-19-2024 SPIROMETRY BASELINE ONLY SPIROMETRY BASELINE ONLY PFT Routine Lung replaced by transplant ([facility]) Expected: 10/26/2023, Expires: 08/19/2024 [facility] Comment on above: Expected: 10/26/2023, Expires: 5 Start: 10-26-2023 End: 01-25-2024 Tacrolimus [Mass/volume] in Blood TACROLIMUS/FK-506 BL Lab Routine 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) Expected: 10/26/2023, Expires: 01/25/2024 [facility] Comment on above: Expected: 10/26/2023, Expires: 4 Start: 10-26-2023 End: 08-19-2024 XR Chest PA and Lateral XR CHEST 2V FRONTAL/LAT Radiology Routine 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, bilateral (HCC) Expected: 10/26/2023, Expires: 08/19/2024 [facility] Comment on above: Expected: 10/26/2023, Expires: 5 Start: 10-09-2023 Covid-19 Vaccine ( season) Covid-19 Vaccine () [facility] Start: 10-09-2023 Covid-19 Vaccine ( season) Covid-19 Vaccine () [facility] Start: 10-09-2023 Influenza vaccination Influenza Vaccine (#1) [facility] Start: 09-15-2023 Covid-19 Vaccine ( season) Covid-19 Vaccine () [facility] Start: 09-15-2023 End: 09-15-2023 Patient encounter procedure 09/15/2023 12:45 PM EDT Office Visit Pulmonary Medicine [address] [place] [address] Shukri Juárez MD [address] [place] [id number] 6 month follow up Pulmonary Medicine Comment on above: 6 month follow up Start: 07-28-2023 End: 10-27-2023 Phosphate [Mass/volume] in Serum or Plasma PHOSPHORUS INORGANIC Lab Routine 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, bilateral (HCC) Expected: 07/28/2023, Expires: 10/27/2023 [facility] Work Phone: Comment on above: Expected: 07/28/2023, Expires: 4 Start: 07-21-2023 End: 10-20-2023 CBC W Auto Differential panel - Blood CBC + DIFF Lab Routine Aftercare following organ transplant 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 Encounter for monitoring tacrolimus therapy Essential hypertension Hyperlipidemia, unspecified hyperlipidemia type Gastroesophageal reflux disease without esophagitis Steroid-induced osteopenia Expected: 07/21/2023, Expires: 10/20/2023 [facility] Work Phone: Comment on above: Expected: 07/21/2023, Expires: Start: 07-21-2023 End: 10-20-2023 Comprehensive metabolic 2000 panel - Serum or Plasma COMP METABOLIC PANEL Lab Routine Aftercare following organ transplant 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 Encounter for monitoring tacrolimus therapy Essential hypertension Hyperlipidemia, unspecified hyperlipidemia type Gastroesophageal reflux disease without esophagitis Steroid-induced osteopenia Expected: 07/21/2023, Expires: 10/20/2023 [facility] Work Phone: Comment on above: Expected: 07/21/2023, Expires: Start: 07-21-2023 End: 10-20-2023 CYTOMEGALOVIRUS (CMV) DNA, QUANTITATIVE PCR, PLASMA CYTOMEGALOVIRUS (CMV) DNA, QUANTITATIVE PCR, PLASMA Lab Routine Aftercare following organ transplant 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 Encounter for monitoring tacrolimus therapy Essential hypertension Hyperlipidemia, unspecified hyperlipidemia type Gastroesophageal reflux disease without esophagitis Steroid-induced osteopenia Expected: 07/21/2023, Expires: 10/20/2023 [facility] Work Phone: Comment on above: Expected: 07/21/2023, Expires: Start: 07-21-2023 End: 10-20-2023 Nelsy Pineda virus DNA [#/volume] (viral load) in Blood by MARY CARMEN with probe detection NELSY-PINEDA DNA QNT Lab Routine Aftercare following organ transplant 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 Encounter for monitoring tacrolimus therapy Essential hypertension Hyperlipidemia, unspecified hyperlipidemia type Gastroesophageal reflux disease without esophagitis Steroid-induced osteopenia Expected: 07/21/2023, Expires: 10/20/2023 [facility] Work Phone: Comment on above: Expected: 07/21/2023, Expires: 4 Start: 07-21-2023 End: 04-18-2024 HEART/LUNG REC POST TX DSA HEART/LUNG REC POST TX DSA ALLOGEN Routine Aftercare following organ transplant 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 Encounter for monitoring tacrolimus therapy Essential hypertension Hyperlipidemia, unspecified hyperlipidemia type Gastroesophageal reflux disease without esophagitis Steroid-induced osteopenia Expected: 07/21/2023, Expires: 04/18/2024 [facility] Work Phone: Comment on above: Expected: 07/21/2023, Expires: 5 Start: 07-21-2023 End: 10-20-2023 IgG [Mass/volume] in Serum or Plasma IGG Lab Routine Aftercare following organ transplant 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 Encounter for monitoring tacrolimus therapy Essential hypertension Hyperlipidemia, unspecified hyperlipidemia type Gastroesophageal reflux disease without esophagitis Steroid-induced osteopenia Expected: 07/21/2023, Expires: 10/20/2023 [facility] Work Phone: Comment on above: Expected: 07/21/2023, Expires: 4 Start: 07-21-2023 End: 10-20-2023 Lactate dehydrogenase [Enzymatic activity/volume] in Serum or Plasma LD LACTATE DEHYDRO Lab Routine Aftercare following organ transplant 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 Encounter for monitoring tacrolimus therapy Essential hypertension Hyperlipidemia, unspecified hyperlipidemia type Gastroesophageal reflux disease without esophagitis Steroid-induced osteopenia Expected: 07/21/2023, Expires: 10/20/2023 [facility] Work Phone: Comment on above: Expected: 07/21/2023, Expires: 4 Start: 07-21-2023 End: 10-20-2023 Lipid 1996 panel - Serum or Plasma LIPID PANEL BASIC Lab Routine Aftercare following organ transplant 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 Encounter for monitoring tacrolimus therapy Essential hypertension Hyperlipidemia, unspecified hyperlipidemia type Gastroesophageal reflux disease without esophagitis Steroid-induced osteopenia Expected: 07/21/2023, Expires: 10/20/2023 [facility] Work Phone: Comment on above: Expected: 07/21/2023, Expires: 4 Start: 07-21-2023 End: 10-20-2023 Magnesium [Mass/volume] in Serum or Plasma MAGNESIUM BLD Lab Routine Aftercare following organ transplant 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 Encounter for monitoring tacrolimus therapy Essential hypertension Hyperlipidemia, unspecified hyperlipidemia type Gastroesophageal reflux disease without esophagitis Steroid-induced osteopenia Expected: 07/21/2023, Expires: 10/20/2023 [facility] Work Phone: Comment on above: Expected: 07/21/2023, Expires: Start: 07-21-2023 End: 10-20-2023 MISC SEND OUT TST 1 MISC SEND OUT TST 1 Lab Routine Research study patient Expected: 07/21/2023, Expires: 10/20/2023 [facility] Work Phone: Comment on above: Expected: 07/21/2023, Expires: 4 Start: 07-21-2023 End: 05-18-2024 SPIROMETRY BASELINE ONLY [facility] Work Phone: Comment on above: Expected: 07/21/2023, Expires: 5 Start: 07-21-2023 End: 10-20-2023 Tacrolimus [Mass/volume] in Blood TACROLIMUS/FK-506 BL Lab Routine Aftercare following organ transplant 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 Encounter for monitoring tacrolimus therapy Essential hypertension Hyperlipidemia, unspecified hyperlipidemia type Gastroesophageal reflux disease without esophagitis Steroid-induced osteopenia Expected: 07/21/2023, Expires: 10/20/2023 [facility] Work Phone: Comment on above: Expected: 07/21/2023, Expires: 4 Start: 07-21-2023 End: 05-18-2024 XR Chest PA and Lateral XR CHEST 2V FRONTAL/LAT Radiology Routine Aftercare following organ transplant 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 Encounter for monitoring tacrolimus therapy Essential hypertension Hyperlipidemia, unspecified hyperlipidemia type Gastroesophageal reflux disease without esophagitis Steroid-induced osteopenia Expected: 07/21/2023, Expires: 05/18/2024 [facility] Work Phone: Comment on above: Expected: 07/21/2023, Expires: Start: 07-21-2023 End: 07-21-2023 Admission to same day surgery center Admitting Comment on above: BRONCHOSCOPY FLEXIBLE ADULT Start: 07-21-2023 End: 07-21-2023 [facility] incl fluor gdnce dx w/cell washg spx PULM LAB H23 Start: 07-21-2023 Subsequent hospital visit by physician Admitting Comment on above: 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) [Z94.2 ] Start: 07-21-2023 End: 07-21-2023 ambulatory 07/21/2023 8:30 AM EDT Procedure Pulmonary Medicine [address] [id number], Pulm Fct Lab Main [address] [place] [id number] Post lung Txp/ FU Pulmonary Medicine Comment on above: Post lung Txp/ FU Start: 07-21-2023 End: 07-21-2023 Patient encounter procedure [address] Comment on above: Post lung Txp Post lung Txp/ FU Start: 07-18-2023 End: 07-18-2023 Patient encounter procedure 07/18/2023 7:30 AM EDT Appointment [facility] [place] [address] [place] [id number] Consuelo Leahy, DO [address] [facility], [address] [address] [facility] [place] Start: 07-07-2023 End: 07-07-2023 Patient encounter procedure 07/07/2023 4:20 PM EDT Office Visit [facility] [place] [address] [place], [place] [id number] Keshav Phillips APRN.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 MANAGER [address] [place] [address] est care [facility] Comment on above: est care Start: 04-20-2023 End: 07-20-2023 MISC SEND OUT TST 1 MISC SEND OUT TST 1 Lab Routine Research study patient Expected: 04/20/2023, Expires: 07/20/2023 [facility] Work Phone: Comment on above: Expected: 04/20/2023, Expires: 4 Start: 04-19-2023 Procedure [facility] Start: 02-07-2023 Advance Directive Discussion Advance Directive Discussion [facility] Start: 02-07-2023 Behavioral Health Screening Behavioral Health Screening [facility] Start: 02-07-2023 Depression Assessment Depression Assessment [facility] Start: 01-19-2023 End: 04-20-2023 [facility] SEND OUT TST 1 [facility] Work Phone: Comment on above: Expected: 01/19/2023, Expires: 4 Start: 01-18-2023 End: 04-19-2023 CBC W Auto Differential panel - Blood CBC + DIFF Lab Routine 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) Expected: 01/18/2023, Expires: 04/19/2023 [facility] Work Phone: Comment on above: Expected: 01/18/2023, Expires: 4 Start: 01-18-2023 End: 04-19-2023 Comprehensive metabolic 2000 panel - Serum or Plasma COMP METABOLIC PANEL Lab Routine 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) Expected: 01/18/2023, Expires: 04/19/2023 [facility] Work Phone: Comment on above: Expected: 01/18/2023, Expires: 4 Start: 01-18-2023 End: 04-19-2023 CYTOMEGALOVIRUS (CMV) DNA, QUANTITATIVE PCR, PLASMA CYTOMEGALOVIRUS (CMV) DNA, QUANTITATIVE PCR, PLASMA Lab Routine Lung replaced by transplant ([facility]) Expected: 01/18/2023, Expires: 04/19/2023 [facility] Work Phone: Comment on above: Expected: 01/18/2023, Expires: 4 Start: 01-18-2023 End: 04-19-2023 Nelsy Pineda virus DNA [#/volume] (viral load) in Blood by MARY CARMEN with probe detection NELSY-PINEDA DNA QNT Lab Routine Lung replaced by transplant ([facility]) Expected: 01/18/2023, Expires: 04/19/2023 [facility] Work Phone: Comment on above: Expected: 01/18/2023, Expires: Start: 01-18-2023 End: 11-29-2023 HEART/LUNG REC POST TX DSA HEART/LUNG REC POST TX DSA ALLOGEN Routine Lung replaced by transplant ([facility]) Expected: 01/18/2023, Expires: 11/29/2023 [facility] Work Phone: Comment on above: Expected: 01/18/2023, Expires: 4 Start: 01-18-2023 End: 04-19-2023 IgG [Mass/volume] in Serum or Plasma IGG Lab Routine Lung replaced by transplant ([facility]) Expected: 01/18/2023, Expires: 04/19/2023 [facility] Work Phone: Comment on above: Expected: 01/18/2023, Expires: 4 Start: 01-18-2023 End: 04-19-2023 Lactate dehydrogenase [Enzymatic activity/volume] in Serum or Plasma LD LACTATE DEHYDRO Lab Routine Lung replaced by transplant ([facility]) Expected: 01/18/2023, Expires: 04/19/2023 [facility] Work Phone: Comment on above: Expected: 01/18/2023, Expires: 4 Start: 01-18-2023 End: 04-19-2023 Lipid 1996 panel - Serum or Plasma LIPID PANEL BASIC Lab Routine Lung replaced by transplant ([facility]) Expected: 01/18/2023, Expires: 04/19/2023 [facility] Work Phone: Comment on above: Expected: 01/18/2023, Expires: 4 Start: 01-18-2023 End: 04-19-2023 Magnesium [Mass/volume] in Serum or Plasma MAGNESIUM BLD Lab Routine Lung replaced by transplant ([facility]) Expected: 01/18/2023, Expires: 04/19/2023 [facility] Work Phone: Comment on above: Expected: 01/18/2023, Expires: 4 Start: 01-18-2023 End: 12-29-2023 Radiologic exam chest 2 views XR CHEST 2V FRONTAL/LAT Radiology Routine 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) Expected: 01/18/2023, Expires: 12/29/2023 [facility] Work Phone: Comment on above: Expected: 01/18/2023, Expires: 4 Start: 01-18-2023 End: 12-29-2023 SPIROMETRY BASELINE ONLY SPIROMETRY BASELINE ONLY PFT Routine Lung replaced by transplant ([facility]) Expected: 01/18/2023, Expires: 12/29/2023 [facility] Work Phone: Comment on above: Expected: 01/18/2023, Expires: 4 Start: 01-18-2023 End: 04-19-2023 Tacrolimus [Mass/volume] in Blood TACROLIMUS/FK-506 BL Lab Routine 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) Expected: 01/18/2023, Expires: 04/19/2023 [facility] Work Phone: Comment on above: Expected: 01/18/2023, Expires: 4 Start: 01-03-2023 COVID-19 Vaccine ( season) COVID-19 Vaccine ( season) [facility] Start: 01-03-2023 Covid-19 Vaccine (5 - Moderna risk series) Covid-19 Vaccine (5 - Moderna risk series) [facility] Start: 01-03-2023 Covid-19 Vaccine ( season) Covid-19 Vaccine ( season) [facility] Start: 12-02-2022 Procedure [facility] Start: 12-01-2022 End: 01-31-2023 CBC W Auto Differential panel - Blood CBC + DIFF Lab Routine Lung transplant recipient (HCC) Aftercare following organ transplant Encounter for monitoring tacrolimus therapy Essential hypertension Gastroesophageal reflux disease without esophagitis Pure hypertriglyceridemia 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 Expected: 12/01/2022 (Approximate), Expires: 01/31/2023 [facility] Work Phone: Comment on above: Expected: 12/01/2022 (Approximate), Expi res: 01/31/2023 Start: 12-01-2022 End: 01-31-2023 Comprehensive metabolic 2000 panel - Serum or Plasma COMP METABOLIC PANEL Lab Routine Lung transplant recipient (HCC) Aftercare following organ transplant Encounter for monitoring tacrolimus therapy Essential hypertension Gastroesophageal reflux disease without esophagitis Pure hypertriglyceridemia Encounter for screening for osteoporosis care home current use of systemic steroids Expected: 12/01/2022 (Approximate), Expires: 01/31/2023 [facility] Work Phone: Comment on above: Expected: 12/01/2022 (Approximate), Expi res: 01/31/2023 Start: 12-01-2022 End: 01-31-2023 CYTOMEGALOVIRUS (CMV) DNA, QUANTITATIVE PCR, PLASMA CYTOMEGALOVIRUS (CMV) DNA, QUANTITATIVE PCR, PLASMA Lab Routine Lung transplant recipient (HCC) Aftercare following organ transplant Encounter for monitoring tacrolimus therapy Essential hypertension Gastroesophageal reflux disease without esophagitis Pure hypertriglyceridemia 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 Expected: 12/01/2022 (Approximate), Expires: 01/31/2023 [facility] Work Phone: Comment on above: Expected: 12/01/2022 (Approximate), Expi res: 01/31/2023 Start: 12-01-2022 End: 11-20-2023 Dxa bone density study axial skeleton DXA-AXIAL SKELETON WITH VFA Radiology Routine Lung transplant recipient (HCC) Aftercare following organ transplant Encounter for monitoring tacrolimus therapy Essential hypertension Gastroesophageal reflux disease without esophagitis Pure hypertriglyceridemia 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 Expected: 12/01/2022 (Approximate), Expires: 11/20/2023 [facility] Work Phone: Comment on above: Expected: 12/01/2022 (Approximate), Expi res: 11/20/2023 Start: 12-01-2022 End: 01-31-2023 Nelsy Pineda virus DNA [#/volume] (viral load) in Blood by MARY CARMEN with probe detection NELSY-PINEDA DNA QNT Lab Routine Lung transplant recipient (HCC) Aftercare following organ transplant Encounter for monitoring tacrolimus therapy Essential hypertension Gastroesophageal reflux disease without esophagitis Pure hypertriglyceridemia Encounter for screening for osteoporosis care home current use of systemic steroids Expected: 12/01/2022 (Approximate), Expires: 01/31/2023 [facility] Work Phone: Comment on above: Expected: 12/01/2022 (Approximate), Expi res: 01/31/2023 Start: 12-01-2022 End: 10-21-2023 HEART/LUNG REC POST TX DSA HEART/LUNG REC POST TX DSA ALLOGEN Routine Lung transplant recipient (HCC) Aftercare following organ transplant Encounter for monitoring tacrolimus therapy Essential hypertension Gastroesophageal reflux disease without esophagitis Pure hypertriglyceridemia 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 Expected: 12/01/2022 (Approximate), Expires: 10/21/2023 [facility] Work Phone: Comment on above: Expected: 12/01/2022 (Approximate), Expi res: 10/21/2023 Start: 12-01-2022 End: 01-31-2023 IgG [Mass/volume] in Serum or Plasma IGG Lab Routine Lung transplant recipient (HCC) Aftercare following organ transplant Encounter for monitoring tacrolimus therapy Essential hypertension Gastroesophageal reflux disease without esophagitis Pure hypertriglyceridemia 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 Expected: 12/01/2022 (Approximate), Expires: 01/31/2023 [facility] Work Phone: Comment on above: Expected: 12/01/2022 (Approximate), Expi res: 01/31/2023 Start: 12-01-2022 End: 01-31-2023 Lactate dehydrogenase [Enzymatic activity/volume] in Serum or Plasma LD LACTATE DEHYDRO Lab Routine Lung transplant recipient (HCC) Aftercare following organ transplant Encounter for monitoring tacrolimus therapy Essential hypertension Gastroesophageal reflux disease without esophagitis Pure hypertriglyceridemia Encounter for screening for osteoporosis care home current use of systemic steroids Expected: 12/01/2022 (Approximate), Expires: 01/31/2023 [facility] Work Phone: Comment on above: Expected: 12/01/2022 (Approximate), Expi res: 01/31/2023 Start: 12-01-2022 End: 01-31-2023 Lipid 1996 panel - Serum or Plasma LIPID PANEL BASIC Lab Routine Lung transplant recipient (HCC) Aftercare following organ transplant Encounter for monitoring tacrolimus therapy Essential hypertension Gastroesophageal reflux disease without esophagitis Pure hypertriglyceridemia Encounter for screening for osteoporosis care home current use of systemic steroids Expected: 12/01/2022 (Approximate), Expires: 01/31/2023 [facility] Work Phone: Comment on above: Expected: 12/01/2022 (Approximate), Expi res: 01/31/2023 Start: 12-01-2022 End: 01-31-2023 Magnesium [Mass/volume] in Serum or Plasma MAGNESIUM BLD Lab Routine Lung transplant recipient (HCC) Aftercare following organ transplant Encounter for monitoring tacrolimus therapy Essential hypertension Gastroesophageal reflux disease without esophagitis Pure hypertriglyceridemia Encounter for screening for osteoporosis care home current use of systemic steroids Expected: 12/01/2022 (Approximate), Expires: 01/31/2023 [facility] Work Phone: Comment on above: Expected: 12/01/2022 (Approximate), Expi res: 01/31/2023 Start: 12-01-2022 End: 11-20-2023 Radiologic exam chest 2 views XR CHEST 2V FRONTAL/LAT Radiology Routine Lung transplant recipient (HCC) Aftercare following organ transplant Encounter for monitoring tacrolimus therapy Essential hypertension Gastroesophageal reflux disease without esophagitis Pure hypertriglyceridemia Encounter for screening for osteoporosis care home current use of systemic steroids Expected: 12/01/2022 (Approximate), Expires: 11/20/2023 [facility] Work Phone: Comment on above: Expected: 12/01/2022 (Approximate), Expi res: 11/20/2023 Start: 12-01-2022 End: 11-20-2023 SPIROMETRY BASELINE ONLY SPIROMETRY BASELINE ONLY PFT Routine Lung transplant recipient (HCC) Aftercare following organ transplant Encounter for monitoring tacrolimus therapy Essential hypertension Gastroesophageal reflux disease without esophagitis Pure hypertriglyceridemia Encounter for screening for osteoporosis care home current use of systemic steroids Expected: 12/01/2022 (Approximate), Expires: 11/20/2023 [facility] Work Phone: Comment on above: Expected: 12/01/2022 (Approximate), Expi res: 11/20/2023 Start: 12-01-2022 End: 01-31-2023 Tacrolimus [Mass/volume] in Blood TACROLIMUS/FK-506 BL Lab Routine Lung transplant recipient (HCC) Aftercare following organ transplant Encounter for monitoring tacrolimus therapy Essential hypertension Gastroesophageal reflux disease without esophagitis Pure hypertriglyceridemia 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 Expected: 12/01/2022 (Approximate), Expires: 01/31/2023 [facility] Work Phone: Comment on above: Expected: 12/01/2022 (Approximate), Expi res: 01/31/2023 Start: 11-18-2022 Influenza vaccination LUNG CANCER SCREENING [facility] Start: 11-18-2022 Screening for malignant neoplasm of lung Lung Cancer Screening [facility] Start: 10-20-2022 End: 12-20-2022 CBC W Auto Differential panel - Blood CBC + DIFF Lab Routine Lung transplant recipient (HCC) Aftercare following organ transplant Human immunodeficiency virus (HIV) disease (HCC) Encounter for monitoring tacrolimus therapy Essential hypertension Hyperlipidemia, unspecified hyperlipidemia type Gastroesophageal reflux disease without esophagitis Steroid-induced osteopenia Obesity, Class II, BMI 35-39.9 Methicillin resistant Staphylococcus aureus colonization Expected: 10/20/2022, Expires: 12/20/2022 [facility] Work Phone: Comment on above: Expected: 10/20/2022, Expires: Start: 10-20-2022 End: 11-13-2023 Comprehensive metabolic 2000 panel - Serum or Plasma COMP METABOLIC PANEL Lab Routine Lung transplant recipient (HCC) Aftercare following organ transplant Human immunodeficiency virus (HIV) disease ([facility]) Encounter for monitoring tacrolimus therapy Essential hypertension Hyperlipidemia, unspecified hyperlipidemia type Gastroesophageal reflux disease without esophagitis Steroid-induced osteopenia Obesity, Class II, BMI 35-39.9 Methicillin resistant Staphylococcus aureus colonization Expected: 10/20/2022, Expires: 12/20/2022 [facility] Work Phone: Comment on above: Expected: 10/20/2022, Expires: 3 Start: 10-20-2022 End: 12-20-2022 CYTOMEGALOVIRUS (CMV) DNA, QUANTITATIVE PCR, PLASMA CYTOMEGALOVIRUS (CMV) DNA, QUANTITATIVE PCR, PLASMA Lab Routine Lung transplant recipient (HCC) Aftercare following organ transplant Human immunodeficiency virus (HIV) disease ([facility]) Encounter for monitoring tacrolimus therapy Essential hypertension Hyperlipidemia, unspecified hyperlipidemia type Gastroesophageal reflux disease without esophagitis Steroid-induced osteopenia Obesity, Class II, BMI 35-39.9 Methicillin resistant Staphylococcus aureus colonization Expected: 10/20/2022, Expires: 12/20/2022 [facility] Work Phone: Comment on above: Expected: 10/20/2022, Expires: 3 Start: 10-20-2022 End: 12-20-2022 Nelsy Pineda virus DNA [#/volume] (viral load) in Blood by MARY CARMEN with probe detection NELSY-PINEDA DNA QNT Lab Routine Lung transplant recipient (HCC) Aftercare following organ transplant Human immunodeficiency virus (HIV) disease ([facility]) Encounter for monitoring tacrolimus therapy Essential hypertension Hyperlipidemia, unspecified hyperlipidemia type Gastroesophageal reflux disease without esophagitis Steroid-induced osteopenia Obesity, Class II, BMI 35-39.9 Methicillin resistant Staphylococcus aureus colonization Expected: 10/20/2022, Expires: 12/20/2022 [facility] Work Phone: Comment on above: Expected: 10/20/2022, Expires: 3 Start: 10-20-2022 End: 10-04-2023 HEART/LUNG REC POST TX DSA HEART/LUNG REC POST TX DSA ALLOGEN Routine Lung transplant recipient (HCC) Aftercare following organ transplant Human immunodeficiency virus (HIV) disease ([facility]) Encounter for monitoring tacrolimus therapy Essential hypertension Hyperlipidemia, unspecified hyperlipidemia type Gastroesophageal reflux disease without esophagitis Steroid-induced osteopenia Obesity, Class II, BMI 35-39.9 Methicillin resistant Staphylococcus aureus colonization Expected: 10/20/2022, Expires: 10/04/2023 [facility] Work Phone: Comment on above: Expected: 10/20/2022, Expires: 4 Start: 10-20-2022 End: 12-20-2022 IgG [Mass/volume] in Serum or Plasma IGG Lab Routine Lung transplant recipient (HCC) Aftercare following organ transplant Human immunodeficiency virus (HIV) disease ([facility]) Encounter for monitoring tacrolimus therapy Essential hypertension Hyperlipidemia, unspecified hyperlipidemia type Gastroesophageal reflux disease without esophagitis Steroid-induced osteopenia Obesity, Class II, BMI 35-39.9 Methicillin resistant Staphylococcus aureus colonization Expected: 10/20/2022, Expires: 12/20/2022 [facility] Work Phone: Comment on above: Expected: 10/20/2022, Expires: 3 Start: 10-20-2022 End: 12-20-2022 Lactate dehydrogenase [Enzymatic activity/volume] in Serum or Plasma LD LACTATE DEHYDRO Lab Routine Lung transplant recipient (HCC) Aftercare following organ transplant Human immunodeficiency virus (HIV) disease ([facility]) Encounter for monitoring tacrolimus therapy Essential hypertension Hyperlipidemia, unspecified hyperlipidemia type Gastroesophageal reflux disease without esophagitis Steroid-induced osteopenia Obesity, Class II, BMI 35-39.9 Methicillin resistant Staphylococcus aureus colonization Expected: 10/20/2022, Expires: 12/20/2022 [facility] Work Phone: Comment on above: Expected: 10/20/2022, Expires: 3 Start: 10-20-2022 End: 12-20-2022 Lipid 1996 panel - Serum or Plasma LIPID PANEL BASIC Lab Routine Lung transplant recipient (HCC) Aftercare following organ transplant Human immunodeficiency virus (HIV) disease ([facility]) Encounter for monitoring tacrolimus therapy Essential hypertension Hyperlipidemia, unspecified hyperlipidemia type Gastroesophageal reflux disease without esophagitis Steroid-induced osteopenia Obesity, Class II, BMI 35-39.9 Methicillin resistant Staphylococcus aureus colonization Expected: 10/20/2022, Expires: 12/20/2022 [facility] Work Phone: Comment on above: Expected: 10/20/2022, Expires: 3 Start: 10-20-2022 End: 12-20-2022 Magnesium [Mass/volume] in Serum or Plasma MAGNESIUM BLD Lab Routine Lung transplant recipient ([facility]) Aftercare following organ transplant Human immunodeficiency virus (HIV) disease ([facility]) Encounter for monitoring tacrolimus therapy Essential hypertension Hyperlipidemia, unspecified hyperlipidemia type Gastroesophageal reflux disease without esophagitis Steroid-induced osteopenia Obesity, Class II, BMI 35-39.9 Methicillin resistant Staphylococcus aureus colonization Expected: 10/20/2022, Expires: 12/20/2022 [facility] Work Phone: Comment on above: Expected: 10/20/2022, Expires: 3 Start: 10-20-2022 End: 11-03-2023 Radiologic exam chest 2 views XR CHEST 2V FRONTAL/LAT Radiology Routine Lung transplant recipient ([facility]) Aftercare following organ transplant Human immunodeficiency virus (HIV) disease ([facility]) Encounter for monitoring tacrolimus therapy Essential hypertension Hyperlipidemia, unspecified hyperlipidemia type Gastroesophageal reflux disease without esophagitis Steroid-induced osteopenia Obesity, Class II, BMI 35-39.9 Methicillin resistant Staphylococcus aureus colonization Expected: 10/20/2022, Expires: 11/03/2023 [facility] Work Phone: Comment on above: Expected: 10/20/2022, Expires: 4 Start: 10-20-2022 End: 11-03-2023 SPIROMETRY BASELINE ONLY SPIROMETRY BASELINE ONLY PFT Routine Lung transplant recipient ([facility]) Aftercare following organ transplant Human immunodeficiency virus (HIV) disease ([facility]) Encounter for monitoring tacrolimus therapy Essential hypertension Hyperlipidemia, unspecified hyperlipidemia type Gastroesophageal reflux disease without esophagitis Steroid-induced osteopenia Obesity, Class II, BMI 35-39.9 Methicillin resistant Staphylococcus aureus colonization Expected: 10/20/2022, Expires: 11/03/2023 [facility] Work Phone: Comment on above: Expected: 10/20/2022, Expires: 4 Start: 10-20-2022 End: 12-20-2022 Tacrolimus [Mass/volume] in Blood TACROLIMUS/FK-506 BL Lab Routine Lung transplant recipient (HCC) Aftercare following organ transplant Human immunodeficiency virus (HIV) disease ([facility]) Encounter for monitoring tacrolimus therapy Essential hypertension Hyperlipidemia, unspecified hyperlipidemia type Gastroesophageal reflux disease without esophagitis Steroid-induced osteopenia Obesity, Class II, BMI 35-39.9 Methicillin resistant Staphylococcus aureus colonization Expected: 10/20/2022, Expires: 12/20/2022 [facility] Work Phone: Comment on above: Expected: 10/20/2022, Expires: 3 Start: 10-08-2022 Influenza vaccination [facility] Start: 10-04-2022 End: 12-04-2022 CLINICAL TRIAL DRAW CLINICAL TRIAL DRAW Lab Routine Research study patient Expected: 10/04/2022, Expires: 12/04/2022 [facility] Work Phone: Comment on above: Expected: 10/04/2022, Expires: 3 Start: 10-04-2022 End: 10-01-2023 HEART/LUNG REC POST TX DSA [facility] Work Phone: Comment on above: Expected: 10/04/2022, Expires: 4 Start: 10-04-2022 End: 12-04-2022 HIV 1 RNA [#/volume] (viral load) in Serum or Plasma by MARY CARMEN with probe detection [facility] Work Phone: Comment on above: Expected: 10/04/2022, Expires: 3 Start: 09-01-2022 End: 11-01-2022 CBC W Auto Differential panel - Blood CBC + DIFF Lab Routine 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) Expected: 09/01/2022, Expires: 11/01/2022 [facility] Work Phone: Comment on above: Expected: 09/01/2022, Expires: 3 Start: 09-01-2022 End: 11-01-2022 CMV DNA DETECTION AND QUANT CMV DNA DETECTION AND QUANT Lab Routine 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) Expected: 09/01/2022, Expires: 11/01/2022 [facility] Work Phone: Comment on above: Expected: 09/01/2022, Expires: 3 Start: 09-01-2022 End: 11-01-2022 Comprehensive metabolic 2000 panel - Serum or Plasma COMP METABOLIC PANEL Lab Routine 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) Expected: 09/01/2022, Expires: 11/01/2022 [facility] Work Phone: Comment on above: Expected: 09/01/2022, Expires: 3 Start: 09-01-2022 End: 11-01-2022 IgG [Mass/volume] in Serum or Plasma IGG Lab Routine Lung replaced by transplant ([facility]) Expected: 09/01/2022, Expires: 11/01/2022 [facility] Work Phone: Comment on above: Expected: 09/01/2022, Expires: 3 Start: 09-01-2022 End: 11-01-2022 Magnesium [Mass/volume] in Serum or Plasma MAGNESIUM BLD Lab Routine Lung replaced by transplant ([facility]) Expected: 09/01/2022, Expires: 11/01/2022 [facility] Work Phone: Comment on above: Expected: 09/01/2022, Expires: 3 Start: 09-01-2022 End: 09-24-2023 Radiologic exam chest 2 views XR CHEST 2V FRONTAL/LAT Radiology Routine Lung replaced by transplant ([facility]) Expected: 09/01/2022, Expires: 09/24/2023 [facility] Work Phone: Comment on above: Expected: 09/01/2022, Expires: 4 Start: 09-01-2022 End: 09-24-2023 SPIROMETRY BASELINE ONLY SPIROMETRY BASELINE ONLY PFT Routine Lung replaced by transplant ([facility]) Expected: 09/01/2022, Expires: 09/24/2023 [facility] Work Phone: Comment on above: Expected: 09/01/2022, Expires: 4 Start: 09-01-2022 End: 11-01-2022 Tacrolimus [Mass/volume] in Blood TACROLIMUS/FK-506 BL Lab Routine 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) Expected: 09/01/2022, Expires: 11/01/2022 [facility] Work Phone: Comment on above: Expected: 09/01/2022, Expires: 3 Start: 08-25-2022 End: 10-25-2022 CLINICAL TRIAL DRAW CLINICAL TRIAL DRAW Lab Routine Research study patient Expected: 08/25/2022, Expires: 10/25/2022 [facility] Work Phone: Comment on above: Expected: 08/25/2022, Expires: 3 Start: 08-25-2022 End: 10-25-2022 Hepatitis B virus DNA [Units/volume] in Serum HEP B VIRAL DNA KINA Lab Routine 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) Expected: 08/25/2022, Expires: 10/25/2022 [facility] Work Phone: Comment on above: Expected: 08/25/2022, Expires: 3 Start: 08-25-2022 End: 10-25-2022 Hepatitis C virus RNA [Units/volume] (viral load) in Serum or Plasma by MARY CARMEN with probe detection HCV QUANT RNA BY PCR Lab Routine 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) Expected: 08/25/2022, Expires: 10/25/2022 [facility] Work Phone: Comment on above: Expected: 08/25/2022, Expires: 3 Start: 08-11-2022 End: 10-11-2022 CBC W Auto Differential panel - Blood [facility] Work Phone: Comment on above: Expected: 08/11/2022, Expires: 3 Expected: 08/11/2022 (Approximate), Expires: 10/11/2022 Start: 08-11-2022 End: 10-11-2022 CMV DNA DETECTION AND QUANT [facility] Work Phone: Comment on above: Expected: 08/11/2022, Expires: 3 Expected: 08/11/2022 (Approximate), Expires: 10/11/2022 Start: 08-11-2022 End: 10-11-2022 Comprehensive metabolic 2000 panel - Serum or Plasma [facility] Work Phone: Comment on above: Expected: 08/11/2022, Expires: 3 Expected: 08/11/2022 (Approximate), Expires: 10/11/2022 Start: 08-11-2022 End: 10-11-2022 Nelsy Pineda virus DNA [#/volume] (viral load) in Blood by MARY CARMEN with probe detection [facility] Work Phone: Comment on above: Expected: 08/11/2022, Expires: 3 Expected: 08/11/2022 (Approximate), Expires: 10/11/2022 Start: 08-11-2022 End: 08-03-2023 HEART/LUNG REC POST TX DSA HEART/LUNG REC POST TX DSA ALLOGEN Routine 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) Expected: 08/11/2022, Expires: 08/03/2023 [facility] Work Phone: Comment on above: Expected: 08/11/2022, Expires: 4 Start: 08-11-2022 End: 10-11-2022 IgG [Mass/volume] in Serum or Plasma [facility] Work Phone: Comment on above: Expected: 08/11/2022, Expires: 3 Expected: 08/11/2022 (Approximate), Expires: 10/11/2022 Start: 08-11-2022 End: 10-11-2022 Lactate dehydrogenase [Enzymatic activity/volume] in Serum or Plasma LD LACTATE DEHYDRO Lab Routine Dyspepsia 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) Expected: 08/11/2022 (Approximate), Expires: 10/11/2022 [facility] Work Phone: Comment on above: Expected: 08/11/2022 (Approximate), Expi res: 10/11/2022 Start: 08-11-2022 End: 10-11-2022 Magnesium [Mass/volume] in Serum or Plasma [facility] Work Phone: Comment on above: Expected: 08/11/2022, Expires: Expected: 08/11/2022 (Approximate), Expires: 10/11/2022 Start: 08-11-2022 End: 09-02-2023 Radiologic exam chest 2 views XR CHEST 2V FRONTAL/LAT Radiology Routine 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) Expected: 08/11/2022, Expires: 09/02/2023 [facility] Work Phone: Comment on above: Expected: 08/11/2022, Expires: 4 Start: 08-11-2022 End: 09-02-2023 SPIROMETRY BASELINE ONLY [facility] Work Phone: Comment on above: Expected: 08/11/2022, Expires: 4 Ordered: 08/11/2022 Start: 08-11-2022 End: 10-11-2022 Tacrolimus [Mass/volume] in Blood [facility] Work Phone: Comment on above: Expected: 08/11/2022, Expires: Expected: 08/11/2022 (Approximate), Expires: 10/11/2022 Start: 08-11-2022 End: 10-11-2022 Voriconazole [Mass/volume] in Serum or Plasma [facility] Work Phone: Comment on above: Expected: 08/11/2022, Expires: 3 Start: 08-02-2022 End: 07-21-2023 ARTERIAL BLOOD GAS, ROOM AIR ARTERIAL BLOOD GAS, ROOM AIR PFT Routine Lung transplant candidate Expected: 08/02/2022 (Approximate), Expires: 07/21/2023 [facility] Work Phone: Comment on above: Expected: 08/02/2022 (Approximate), Expi res: 07/21/2023 Start: 08-02-2022 End: 10-02-2022 CBC W Auto Differential panel - Blood CBC + DIFF Lab Routine Lung transplant candidate SOB (shortness of breath) care home current use of systemic steroids Expected: 08/02/2022 (Approximate), Expires: 10/02/2022 [facility] Work Phone: Comment on above: Expected: 08/02/2022 (Approximate), Expi res: 10/02/2022 Start: 08-02-2022 End: 10-02-2022 Chronic hepatitis differentiation between hepatitis B and C virus panel - Serum or Plasma HEP REMOTE PANEL BL Lab Routine Lung transplant candidate 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 Expected: 08/02/2022 (Approximate), Expires: 10/02/2022 [facility] Work Phone: Comment on above: Expected: 08/02/2022 (Approximate), Expi res: 10/02/2022 Start: 08-02-2022 End: 10-02-2022 Comprehensive metabolic 2000 panel - Serum or Plasma COMP METABOLIC PANEL Lab Routine Lung transplant candidate 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 Expected: 08/02/2022 (Approximate), Expires: 10/02/2022 [facility] Work Phone: Comment on above: Expected: 08/02/2022 (Approximate), Expi res: 10/02/2022 Start: 08-02-2022 End: 07-21-2023 Ct thorax w/o contrast material CT CHEST WO IVCON Radiology Routine Lung transplant candidate SOB (shortness of breath) care home current use of systemic steroids Expected: 08/02/2022 (Approximate), Expires: 07/21/2023 [facility] Work Phone: Comment on above: Expected: 08/02/2022 (Approximate), Expi res: 07/21/2023 Start: 08-02-2022 End: 06-21-2023 HRT H/L LUNG REC HLA AB SCRN HRT H/L LUNG REC HLA AB SCRN ALLOGEN Routine Lung transplant candidate 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 Expected: 08/02/2022 (Approximate), Expires: 06/21/2023 [facility] Work Phone: Comment on above: Expected: 08/02/2022 (Approximate), Expi res: 06/21/2023 Start: 08-02-2022 End: 10-02-2022 Magnesium [Mass/volume] in Serum or Plasma MAGNESIUM BLD Lab Routine Lung transplant candidate 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 Expected: 08/02/2022 (Approximate), Expires: 10/02/2022 [facility] Work Phone: Comment on above: Expected: 08/02/2022 (Approximate), Expi res: 10/02/2022 Start: 08-02-2022 End: 10-02-2022 NICOTINE/COTININE NICOTINE/COTININE Lab Routine Lung transplant candidate SOB (shortness of breath) care home current use of systemic steroids Expected: 08/02/2022 (Approximate), Expires: 10/02/2022 [facility] Work Phone: Comment on above: Expected: 08/02/2022 (Approximate), Expi res: 10/02/2022 Start: 08-02-2022 End: 07-21-2023 Radiologic exam chest 2 views XR CHEST 2V FRONTAL/LAT Radiology Routine Lung transplant candidate 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 Expected: 08/02/2022 (Approximate), Expires: 07/21/2023 [facility] Work Phone: Comment on above: Expected: 08/02/2022 (Approximate), Expi res: 07/21/2023 Start: 08-02-2022 End: 07-21-2023 SIX MINUTE WALK SIX MINUTE WALK PFT Routine Lung transplant candidate SOB (shortness of breath) care home current use of systemic steroids Expected: 08/02/2022 (Approximate), Expires: 07/21/2023 [facility] Work Phone: Comment on above: Expected: 08/02/2022 (Approximate), Expi res: 07/21/2023 Start: 08-02-2022 End: 07-21-2023 SPIROMETRY BASELINE ONLY SPIROMETRY BASELINE ONLY PFT Routine Lung transplant candidate SOB (shortness of breath) care home current use of systemic steroids Expected: 08/02/2022 (Approximate), Expires: 07/21/2023 [facility] Work Phone: Comment on above: Expected: 08/02/2022 (Approximate), Expi res: 07/21/2023 Start: 06-02-2022 End: 06-02-2023 ARTERIAL BLOOD GASES ARTERIAL BLOOD GASES Lab Routine Dyspnea and respiratory abnormalities Expected: 06/02/2022, Expires: 06/02/2023 [facility] Work Phone: Comment on above: Expected: 06/02/2022, Expires: Start: 05-25-2022 End: 04-02-2023 ARTERIAL BLOOD GAS, ROOM AIR ARTERIAL BLOOD GAS, ROOM AIR PFT Routine Lung transplant candidate 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 Expected: 05/25/2022 (Approximate), Expires: 04/02/2023 [facility] Work Phone: Comment on above: Expected: 05/25/2022 (Approximate), Expi res: 04/02/2023 Start: 05-25-2022 End: 07-25-2022 CBC W Auto Differential panel - Blood CBC + DIFF Lab Routine Lung transplant candidate 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 Expected: 05/25/2022 (Approximate), Expires: 07/25/2022 [facility] Work Phone: Comment on above: Expected: 05/25/2022 (Approximate), Expi res: 07/25/2022 Start: 05-25-2022 End: 07-25-2022 Comprehensive metabolic 2000 panel - Serum or Plasma COMP METABOLIC PANEL Lab Routine Lung transplant candidate SOB (shortness of breath) care home current use of systemic steroids Expected: 05/25/2022 (Approximate), Expires: 07/25/2022 [facility] Work Phone: Comment on above: Expected: 05/25/2022 (Approximate), Expi res: 07/25/2022 Start: 05-25-2022 End: 03-03-2023 ECHO WITH AGITATED SALINE CONTRAST ECHO WITH AGITATED SALINE CONTRAST Cardiology Routine Lung transplant candidate 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 Expected: 05/25/2022 (Approximate), Expires: 03/03/2023 [facility] Work Phone: Comment on above: Expected: 05/25/2022 (Approximate), Expi res: 03/03/2023 Start: 05-25-2022 End: 07-25-2022 HEPATITIS A ANTIBODY, IGG HEPATITIS A ANTIBODY, IGG Lab Routine Lung transplant candidate 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 Expected: 05/25/2022 (Approximate), Expires: 07/25/2022 [facility] Work Phone: Comment on above: Expected: 05/25/2022 (Approximate), Expi res: 07/25/2022 Start: 05-25-2022 End: 03-03-2023 HRT H/L LUNG REC HLA AB SCRN HRT H/L LUNG REC HLA AB SCRN ALLOGEN Routine Lung transplant candidate 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 Expected: 05/25/2022 (Approximate), Expires: 03/03/2023 [facility] Work Phone: Comment on above: Expected: 05/25/2022 (Approximate), Expi res: 03/03/2023 Start: 05-25-2022 End: 07-25-2022 Magnesium [Mass/volume] in Serum or Plasma MAGNESIUM BLD Lab Routine Lung transplant candidate 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 Expected: 05/25/2022 (Approximate), Expires: 07/25/2022 [facility] Work Phone: Comment on above: Expected: 05/25/2022 (Approximate), Expi res: 07/25/2022 Start: 05-25-2022 End: 07-25-2022 NICOTINE/COTININE NICOTINE/COTININE Lab Routine Lung transplant candidate SOB (shortness of breath) care home current use of systemic steroids Expected: 05/25/2022 (Approximate), Expires: 07/25/2022 [facility] Work Phone: Comment on above: Expected: 05/25/2022 (Approximate), Expi res: 07/25/2022 Start: 05-25-2022 End: 04-02-2023 Radiologic exam chest 2 views XR CHEST 2V FRONTAL/LAT Radiology Routine Lung transplant candidate SOB (shortness of breath) care home current use of systemic steroids Expected: 05/25/2022 (Approximate), Expires: 04/02/2023 [facility] Work Phone: Comment on above: Expected: 05/25/2022 (Approximate), Expi res: 04/02/2023 Start: 05-25-2022 End: 07-25-2022 RUBEOLA (MEASLES)IGG RUBEOLA (MEASLES)IGG Lab Routine Lung transplant candidate 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 Expected: 05/25/2022 (Approximate), Expires: 07/25/2022 [facility] Work Phone: Comment on above: Expected: 05/25/2022 (Approximate), Expi res: 07/25/2022 Start: 05-25-2022 End: 04-02-2023 SIX MINUTE WALK SIX MINUTE WALK PFT Routine Lung transplant candidate SOB (shortness of breath) care home current use of systemic steroids Expected: 05/25/2022 (Approximate), Expires: 04/02/2023 [facility] Work Phone: Comment on above: Expected: 05/25/2022 (Approximate), Expi res: 04/02/2023 Start: 05-25-2022 End: 04-02-2023 SPIROMETRY BASELINE ONLY SPIROMETRY BASELINE ONLY PFT Routine Lung transplant candidate SOB (shortness of breath) care home current use of systemic steroids Expected: 05/25/2022 (Approximate), Expires: 04/02/2023 [facility] Work Phone: Comment on above: Expected: 05/25/2022 (Approximate), Expi res: 04/02/2023 Start: 04-13-2022 Influenza vaccination LUNG CANCER SCREENING [facility] Start: 02-25-2022 End: 04-27-2022 25-hydroxyvitamin D3 [Mass/volume] in Serum or Plasma VITAMIN D 25 HYDROXY Lab Routine Encounter for pre-transplant evaluation for lung transplant care home current use of systemic steroids Vitamin D deficiency Osteoporosis screening Expected: 02/25/2022, Expires: 04/27/2022 [facility] Work Phone: Comment on above: Expected: 02/25/2022, Expires: 3 Start: 02-25-2022 End: 04-27-2022 Comprehensive metabolic 2000 panel - Serum or Plasma COMP METABOLIC PANEL Lab Routine Lung transplant candidate 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 Expected: 02/25/2022, Expires: 04/27/2022 [facility] Work Phone: Comment on above: Expected: 02/25/2022, Expires: 3 Start: 02-25-2022 End: 04-27-2022 Hepatitis B virus DNA [Units/volume] in Serum HEP B VIRAL DNA KINA Lab Routine Lung transplant candidate SOB (shortness of breath) care home current use of systemic steroids Expected: 02/25/2022, Expires: 04/27/2022 [facility] Work Phone: Comment on above: Expected: 02/25/2022, Expires: 3 Start: 02-25-2022 End: 02-24-2023 HRT H/L LUNG REC HLA AB SCRN HRT H/L LUNG REC HLA AB SCRN ALLOGEN Routine Lung transplant candidate SOB (shortness of breath) care home current use of systemic steroids Expected: 02/25/2022, Expires: 02/24/2023 [facility] Work Phone: Comment on above: Expected: 02/25/2022, Expires: 4 Start: 02-25-2022 End: 04-27-2022 Magnesium [Mass/volume] in Serum or Plasma MAGNESIUM BLD Lab Routine Lung transplant candidate SOB (shortness of breath) care home current use of systemic steroids Expected: 02/25/2022, Expires: 04/27/2022 [facility] Work Phone: Comment on above: Expected: 02/25/2022, Expires: 3 Start: 02-25-2022 End: 04-27-2022 NICOTINE/COTININE NICOTINE/COTININE Lab Routine Lung transplant candidate SOB (shortness of breath) care home current use of systemic steroids Expected: 02/25/2022, Expires: 04/27/2022 [facility] Work Phone: Comment on above: Expected: 02/25/2022, Expires: 3 Start: 02-25-2022 End: 04-27-2022 STRONGYLOIDES IGG BL STRONGYLOIDES IGG BL Lab Routine Lung transplant candidate Expected: 02/25/2022, Expires: 04/27/2022 [facility] Work Phone: Comment on above: Expected: 02/25/2022, Expires: 3 Start: 02-24-2022 End: 01-25-2023 ECG COMPLETE ECG COMPLETE ECG Routine Acute bronchitis with chronic obstructive pulmonary disease (COPD) (HCC) Hypertensive chronic kidney disease with stage 1 through stage 4 chronic kidney disease, or unspecified chronic kidney disease Lung transplant candidate 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 Expected: 02/24/2022 (Approximate), Expires: 01/25/2023 [facility] Work Phone: Comment on above: Expected: 02/24/2022 (Approximate), Expi res: 01/25/2023 Start: 02-24-2022 End: 04-26-2022 PSA/PROSTSPECAG SCRN PSA/PROSTSPECAG SCRN Lab Routine Acute bronchitis with chronic obstructive pulmonary disease (COPD) (HCC) Hypertensive chronic kidney disease with stage 1 through stage 4 chronic kidney disease, or unspecified chronic kidney disease Encounter for screening for malignant neoplasm of prostate Lung transplant candidate 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 Expected: 02/24/2022 (Approximate), Expires: 04/26/2022 [facility] Work Phone: Comment on above: Expected: 02/24/2022 (Approximate), Expi res: 04/26/2022 Start: 02-07-2022 ADVANCE DIRECTIVE DISCUSSION ADVANCE DIRECTIVE DISCUSSION [facility] Start: 02-07-2022 DEPRESSION ASSESSMENT DEPRESSION ASSESSMENT [facility] Start: 01-13-2022 COVID-19 VACCINE (5 - Moderna risk series) COVID-19 VACCINE (5 - Moderna risk series) [facility] Start: 12-22-2021 HEPATITIS A (3 of 3 - Hep A Twinrix risk 3-dose series) HEPATITIS A (3 of 3 - Hep A Twinrix risk 3-dose series) [facility] Start: 12-22-2021 Hepatitis A Vaccine (3 of 3 - Hep A Twinrix risk 3-dose series) Hepatitis A Vaccine (3 of 3 - Hep A Twinrix risk 3-dose series) [facility] Start: 12-22-2021 Hepatitis A Vaccines (3 of 3 - Hep A Twinrix risk 3-dose series) Hepatitis A Vaccines (3 of 3 - Hep A Twinrix risk 3-dose series) [facility] Start: 12-22-2021 HEPATITIS B (3 of 3 - Hep B Twinrix risk 3-dose series) HEPATITIS B (3 of 3 - Hep B Twinrix risk 3-dose series) [facility] Start: 11-18-2021 End: 01-18-2022 ALPHA 1 ANTITRYP PHEN/GENOTYPE [facility] Work Phone: Comment on above: Expected: 11/18/2021, Expires: 2 Start: 11-18-2021 End: 11-18-2022 ARTERIAL BLOOD GASES ARTERIAL BLOOD GASES Lab Routine Bronchiectasis without complication (HCC) Expected: 11/18/2021, Expires: 11/18/2022 [facility] Work Phone: Comment on above: Expected: 11/18/2021, Expires: 3 Start: 11-18-2021 End: 01-18-2022 CBC W Auto Differential panel - Blood CBC + DIFF Lab Routine Transplant Chronic obstructive pulmonary disease, unspecified COPD type (HCC) Encounter for pre-transplant evaluation for lung transplant Lung transplant candidate 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 Expected: 11/18/2021 (Approximate), Expires: 01/18/2022 [facility] Work Phone: Comment on above: Expected: 11/18/2021 (Approximate), Expi res: 01/18/2022 Start: 11-18-2021 End: 01-18-2022 Comprehensive metabolic 2000 panel - Serum or Plasma COMP METABOLIC PANEL Lab Routine Transplant Chronic obstructive pulmonary disease, unspecified COPD type (HCC) Encounter for pre-transplant evaluation for lung transplant Lung transplant candidate 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 Expected: 11/18/2021 (Approximate), Expires: 01/18/2022 [facility] Work Phone: Comment on above: Expected: 11/18/2021 (Approximate), Expi res: 01/18/2022 Start: 11-18-2021 End: 01-18-2022 NICOTINE/COTININE NICOTINE/COTININE Lab Routine Transplant Chronic obstructive pulmonary disease, unspecified COPD type (HCC) Encounter for pre-transplant evaluation for lung transplant Lung transplant candidate SOB (shortness of breath) care home current use of systemic steroids Expected: 11/18/2021 (Approximate), Expires: 01/18/2022 [facility] Work Phone: Comment on above: Expected: 11/18/2021 (Approximate), Expi res: 01/18/2022 Start: 11-12-2021 End: 09-11-2022 ARTERIAL BLOOD GAS, ROOM AIR ARTERIAL BLOOD GAS, ROOM AIR PFT Routine Wheezing Lung transplant candidate SOB (shortness of breath) care home current use of systemic steroids Expected: 11/12/2021 (Approximate), Expires: 09/11/2022 [facility] Work Phone: Comment on above: Expected: 11/12/2021 (Approximate), Expi res: 09/11/2022 Start: 11-12-2021 End: 01-12-2022 CBC W Auto Differential panel - Blood CBC + DIFF Lab Routine Wheezing Lung transplant candidate 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 Expected: 11/12/2021 (Approximate), Expires: 01/12/2022 [facility] Work Phone: Comment on above: Expected: 11/12/2021 (Approximate), Expi res: 01/12/2022 Start: 11-12-2021 End: 01-12-2022 Comprehensive metabolic 2000 panel - Serum or Plasma COMP METABOLIC PANEL Lab Routine Wheezing Lung transplant candidate SOB (shortness of breath) care home current use of systemic steroids Expected: 11/12/2021 (Approximate), Expires: 01/12/2022 [facility] Work Phone: Comment on above: Expected: 11/12/2021 (Approximate), Expi res: 01/12/2022 Start: 11-12-2021 End: 09-11-2022 Ct thorax w/o contrast material CT CHEST WO IVCON Radiology Routine Wheezing Lung transplant candidate 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 Expected: 11/12/2021 (Approximate), Expires: 09/11/2022 [facility] Work Phone: Comment on above: Expected: 11/12/2021 (Approximate), Expi res: 09/11/2022 Start: 11-12-2021 End: 01-12-2022 HEPATITIS A ANTIBODY, IGG HEPATITIS A ANTIBODY, IGG Lab Routine Wheezing Lung transplant candidate 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 Expected: 11/12/2021 (Approximate), Expires: 01/12/2022 [facility] Work Phone: Comment on above: Expected: 11/12/2021 (Approximate), Expi res: 01/12/2022 Start: 11-12-2021 End: 08-12-2022 HRT H/L LUNG REC HLA AB SCRN HRT H/L LUNG REC HLA AB SCRN ALLOGEN Routine Wheezing Lung transplant candidate SOB (shortness of breath) care home current use of systemic steroids Expected: 11/12/2021 (Approximate), Expires: 08/12/2022 [facility] Work Phone: Comment on above: Expected: 11/12/2021 (Approximate), Expi res: 08/12/2022 Start: 11-12-2021 End: 12-06-2022 Magnesium [Mass/volume] in Serum or Plasma MAGNESIUM BLD Lab Routine Wheezing Lung transplant candidate SOB (shortness of breath) care home current use of systemic steroids Expected: 11/12/2021 (Approximate), Expires: 01/12/2022 [facility] Work Phone: Comment on above: Expected: 11/12/2021 (Approximate), Expi res: 01/12/2022 Start: 11-12-2021 End: 01-12-2022 NICOTINE/COTININE NICOTINE/COTININE Lab Routine Wheezing Lung transplant candidate 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 Expected: 11/12/2021 (Approximate), Expires: 01/12/2022 [facility] Work Phone: Comment on above: Expected: 11/12/2021 (Approximate), Expi res: 01/12/2022 Start: 11-12-2021 End: 09-11-2022 Radiologic exam chest 2 views XR CHEST 2V FRONTAL/LAT Radiology Routine Wheezing Lung transplant candidate 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 Expected: 11/12/2021 (Approximate), Expires: 09/11/2022 [facility] Work Phone: Comment on above: Expected: 11/12/2021 (Approximate), Expi res: 09/11/2022 Start: 11-12-2021 End: 01-12-2022 RUBEOLA (MEASLES)IGG RUBEOLA (MEASLES)IGG Lab Routine Wheezing Lung transplant candidate SOB (shortness of breath) care home current use of systemic steroids Expected: 11/12/2021 (Approximate), Expires: 01/12/2022 [facility] Work Phone: Comment on above: Expected: 11/12/2021 (Approximate), Expi res: 01/12/2022 Start: 11-12-2021 End: 09-11-2022 SIX MINUTE WALK SIX MINUTE WALK PFT Routine Wheezing Lung transplant candidate 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 Expected: 11/12/2021 (Approximate), Expires: 09/11/2022 [facility] Work Phone: Comment on above: Expected: 11/12/2021 (Approximate), Expi res: 09/11/2022 Start: 11-12-2021 End: 09-11-2022 SPIROMETRY BASELINE ONLY SPIROMETRY BASELINE ONLY PFT Routine Wheezing Lung transplant candidate SOB (shortness of breath) care home current use of systemic steroids Expected: 11/12/2021 (Approximate), Expires: 09/11/2022 [facility] Work Phone: Comment on above: Expected: 11/12/2021 (Approximate), Expi res: 09/11/2022 Start: 2021 Abdominal aortic aneurysm screening Abdominal Aortic Aneurysm (AAA) Screening [facility] Start: 2021 ADVANCE DIRECTIVE DISCUSSION ADVANCE DIRECTIVE DISCUSSION [facility] Start: 2021 Fall risk assessment Falls Risk Assessment [facility] Start: 10-08-2021 Influenza vaccination [facility] Start: 05-11-2021 HEPATITIS A (2 of 3 - Hep A Twinrix risk 3-dose series) HEPATITIS A (2 of 3 - Hep A Twinrix risk 3-dose series) [facility] Start: 05-11-2021 HEPATITIS B (2 of 3 - Hep B Twinrix risk 3-dose series) HEPATITIS B (2 of 3 - Hep B Twinrix risk 3-dose series) [facility] Start: 04-11-2021 COVID-19 VACCINE (4 - Booster for Moderna series) COVID-19 VACCINE (4 - Booster for Moderna series) [facility] Start: 02-07-2021 DEPRESSION ASSESSMENT DEPRESSION ASSESSMENT [facility] Start: 02-06-2021 COVID-19 VACCINE (4 - Booster for Moderna series) COVID-19 VACCINE (4 - Booster for Moderna series) [facility] Start: 04-11-2020 Screening for malignant neoplasm of lung Low-dose CT Lung Cancer Screen [facility] Start: 04-11-2020 End: 04-11-2020 Appointment [facility] CT Scan Start: 12-19-2019 Screening for malignant neoplasm of lung Low-dose CT Lung Cancer Screen [facility] Start: 10-09-2019 Influenza vaccination given Sequential Influenza Vaccine (#1) [facility] Start: 07-24-2019 End: 07-24-2019 Office Visit 07/24/2019 Office Visit Pulmonology Shukri Juárez MD [address] [place] [address] [phone] [facility] Start: 04-19-2019 End: 04-19-2019 Office Visit 04/19/2019 Office Visit PulShukri Giron MD [address] [place] [address] [phone] [facility] Start: 04-12-2019 End: 04-12-2019 Appointment 04/12/2019 Appointment Radiology Shukri Juárez MD [address] [place] [address] [phone] [facility] CT Scan Start: 04-09-2019 End: 01-23-2020 CT of chest without contrast CT Chest Without Contrast Imaging Routine Abnormal chest CT Expected: 04/09/2019, Expires: 01/23/2020 [facility] Comment on above: Expected: 04/09/2019, Expires: 0 Start: 03-21-2019 End: 03-21-2019 Office Visit 03/21/2019 Office Visit PulmonShukri Rivas MD [address] [place] [address] [phone] [facility] Start: 01-22-2019 End: 01-22-2019 Office Visit 01/22/2019 Office Visit PulShukri Giron MD [address] [place] [address] [phone] [facility] Start: 01-11-2019 Administration of herpes zoster vaccine Zoster Vaccines (3 of 3) [facility] Start: 12-19-2018 Screening for malignant neoplasm of lung Low-dose CT Lung Cancer Screen [facility] Start: 12-18-2018 End: 08-24-2019 Low dose computed tomography of thorax CT Lung Cancer Screening Imaging Routine Chronic obstructive pulmonary disease, unspecified COPD type (HCC) Special screening for malignant neoplasm of the respiratory organs Personal history of tobacco use, presenting hazards to health Expected: 12/18/2018, Expires: 08/24/2019 [facility] Comment on above: Expected: 12/18/2018, Expires: 0 Start: 10-08-2018 Influenza vaccination given SEQUENTIAL INFLUENZA VACCINE (#1) [facility] Start: 08-23-2018 End: 08-23-2018 Office Visit 08/23/2018 Office Visit Pulmonology Shukri Juárez MD [address] [place] [address] [phone] [facility] Start: 11-30-2017 End: 11-30-2017 Ambulatory 11/30/2017 Office Visit Pulmonology Shukri Juárez MD [address] [place] [address] [phone] [facility] Start: 10-08-2017 Influenza vaccination SEQUENTIAL INFLUENZA VACCINE (#1) [facility] Start: 10-08-2017 Influenza vaccination given SEQUENTIAL INFLUENZA VACCINE (#1) [facility] Start: 11-23-2016 MMR Vaccines (1 of 1 - Standard series) MMR Vaccines (1 of 1 - Standard series) [facility] Start: 2016 RSV Vaccine (1 - 1-dose 60+ series) RSV Vaccine (1 - 1-dose 60+ series) [facility] Start: 08-07-2013 Medicare Annual Wellness Visit Medicare Annual Wellness Visit [facility] Start: 10-14-2011 PROSTATE CANCER SCREENING DISCUSSION PROSTATE CANCER SCREENING DISCUSSION [facility] Start: 2006 Administration of herpes zoster vaccine ZOSTER VACCINES (1 of 2) [facility] Start: 2006 Prostate specific antigen measurement PSA Prostate Cancer Screening [facility] Start: 2006 Screening for malignant neoplasm of colon [facility] Start: 2006 SHINGRIX VACCINE (1 of 2) SHINGRIX VACCINE (1 of 2) [facility] Start: 2006 ZOSTER VACCINES (1 of 2) ZOSTER VACCINES (1 of 2) [facility] Start: 2001 COLOGUARD (FIT-DNA) COLOGUARD (FIT-DNA) [facility] Start: 2001 Colonoscopy COLONOSCOPY [facility] Start: 2001 COLORECTAL CANCER SCREENING COLORECTAL CANCER SCREENING [facility] Start: [address] COLONOGRAPHY [facility] Start: 2001 FECAL OCCULT BLOOD FECAL OCCULT BLOOD [facility] Start: 2001 Screening for malignant neoplasm of colon [facility] Start: 2001 SIGMOIDOSCOPY SIGMOIDOSCOPY [facility] Start: 10-14-1975 ADULT PREVNAR ADULT PREVNAR [facility] Start: 10-14-1975 ADULT PREVNAR-13 ADULT PREVNAR-13 [facility] Start: 10-14-1975 SHINGRIX VACCINE (1 of 2) SHINGRIX VACCINE (1 of 2) [facility] Start: 10-14-1975 TWO PNEUMOVAX 5 YEARS APART PRIOR TO AGE 65 (#1) TWO PNEUMOVAX 5 YEARS APART PRIOR TO AGE 65 (#1) [facility] Start: 1974 ANNUAL PCP TEAM CHRONIC DISEASE VISIT ANNUAL PCP TEAM CHRONIC DISEASE VISIT [facility] Start: 1974 BP CONTROLLED (<130/80) BP CONTROLLED (<130/80) [facility] Start: 1974 Diabetes mellitus screening Diabetes Screening [facility] Start: 1974 Hepatitis C antibody, confirmatory test Hepatitis C Screening [facility] Start: 1974 Hepatitis C screening Hepatitis C Screening [facility] Start: 1972 COVID-19 Vaccine (1 of 2) COVID-19 Vaccine (1 of 2) [facility] Start: 10-14-1971 HIV screening HIV Screening [facility] Start: 1968 Adolescent depression screening assessment [facility] Start: 1968 Depression screening using PHQ-9 (Patient Health Questionnaire 9) score Depression Screening (PHQ-2/9) [facility] Start: 1962 PNEUMOCOCCAL (1 - PCV) PNEUMOCOCCAL (1 - PCV) [facility] Start: 1962 Pneumococcal Vaccine: Age 65+ (1 - PCV) Pneumococcal Vaccine: Age 65+ (1 - PCV) [facility] Start: 10-14-1959 History and physical examination, annual for health maintenance Wellness Visit [facility] Start: 1958 MENINGOCOCCAL CONJUGATE (1 - Risk 2-dose series) MENINGOCOCCAL CONJUGATE (1 - Risk 2-dose series) [facility] Start: 1958 Meningococcal Conjugate Vaccine (1 - Risk 2-dose series) Meningococcal Conjugate Vaccine (1 - Risk 2-dose series) [facility] Start: 1958 Meningococcal Vaccine (1 - Risk 2-dose series) Meningococcal Vaccine (1 - Risk 2-dose series) [facility] Start: 04-12-1957 COVID-19 Vaccine (#1) COVID-19 Vaccine (#1) [facility] Start: 1956 ABDOMINAL AORTIC ANEURYSM SCREENING ABDOMINAL AORTIC ANEURYSM SCREENING [facility] Start: 1956 Abdominal aortic aneurysm screening [facility] Start: 1956 Hepatitis C antibody, confirmatory test HEPATITIS C SCREENING [facility] Start: 1956 Lipid panel Lipid Panel [facility] Start: 1956 Medicare Annual Wellness Visit Medicare Annual Wellness Visit (AWV) [facility] Start: 1956 Prostate specific antigen measurement PSA Level [facility] Start: 1956 Screening for malignant neoplasm of colon [facility] Start: 1956 HEPATITIS C SCREENING HEPATITIS C SCREENING [facility] Start: 1956 Low-dose [address] Lung Cancer Screen Low-dose CT Lung Cancer Screen [facility] Start: 1956 Screening colonoscopy COLONOSCOPY [facility] Start: 1956 End: 1956 Tetanus vaccination [facility] ALLOGEN HLA-AB SUM RPT ALLOGEN H LA-AB SUM RPT Lab Routine 06/02/2022 10:30 AM EDT [facility] End: 07-21-2023 ALLOGEN POST-TX DSA RPT [facility] Comment on above: ONCE for 1 Occurrences starting 07/21/19 24 until 07/21/2023 End: 12-18-2022 ARTERIAL BLOOD GAS, ROOM AIR ARTERIAL BLOOD GAS, ROOM AIR PFT Routine Transplant Chronic obstructive pulmonary disease, unspecified COPD type (HCC) Encounter for pre-transplant evaluation for lung transplant Lung transplant candidate SOB (shortness of breath) care home current use of systemic steroids 1 Occurrences starting 11/18/2021 until 12/18/2022 [facility] Work Phone: Comment on above: 1 Occurrences starting 11/18/2021 until 12/18/2022 ASPERGILLUS GALACTOMANNAN BAL [facility] Work Phone: Comment on above: Release Upon Ordering for 1 Occurrences starting 09/03/2022 ASPERGILLUS GALACTOMANNAN BAL [facility] Comment on above: Release Upon Ordering for 1 Occurrences starting 07/21/2023 Bacteria identified in Bronchoalveolar lavage by Aerobe culture BRONCHOSCOPY CULTURE AND GRAM STAIN Microbiology Routine 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) 09/03/2022 9:45 AM EDT [facility] Work Phone: Bacteria identified in Bronchoalveolar lavage by Aerobe culture [facility] Comment on above: Release Upon Ordering for 1 Occurrences starting 07/21/2023 Bacteria identified in Unspecified specimen by Respiratory culture RESP CULTURE + STAIN Microbiology Routine Lung transplant candidate 02/24/2022 3:39 PM EST [facility] Work Phone: End: 02-08-2025 BD DXA TRABECULAR BONE SCORE (TBS) BD DXA TRABECULAR BONE SCORE (TBS) Radiology Routine Aftercare following organ transplant Steroid-induced osteopenia Current chronic use of systemic steroids 1 Occurrences starting 01/10/2024 until 02/08/2025 [facility] Comment on above: 1 Occurrences starting 01/10/2024 until 02/08/2025 End: 09-04-2024 CBC W Auto Differential panel - Blood COMPLETE BLOOD COUNT AND DIFFERENTIAL Lab Routine Lung replaced by transplant ([facility]) Once per week for 100 Occurrences starting 09/05/2023 until 09/04/2024 [facility] Work Phone: Comment on above: Once per week for 100 Occurrences starti ng 09/05/2023 until 09/04/2024 End: 09-11-2025 CBC W Auto Differential panel - Blood COMPLETE BLOOD COUNT AND DIFFERENTIAL Lab Routine Lung replaced by transplant ([facility]) Once per week for 100 Occurrences starting 09/11/2024 until 09/11/2025, 1 completed [facility] Work Phone: Comment on above: Once per week for 100 Occurrences starti ng 09/11/2024 until 09/11/2025, 1 completed Clostridioides difficile toxin genes [Presence] in Stool by MARY CARMEN with probe detection CLOSTRIDIUM DIFFICILE TOXIN BY PCR Lab Routine Diarrhea, unspecified type Ordered: 10/16/2024 [facility] Comment on above: Ordered: 10/16/2024 Comprehensive metabo lic 2000 panel - Serum or Plasma COMP METABOLIC PANEL Lab Routine Lung transplant candidate 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 02/24/2022 7:21 AM EST [facility] Work Phone: End: 09-04-2024 Comprehensive metabolic 2000 panel - Serum or Plasma COMPREHENSIVE METABOLIC PANEL Lab Routine 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) Once per week for 100 Occurrences starting 09/05/2023 until 09/04/2024 [facility] Comment on above: Once per week for 100 Occurrences starti ng 09/05/2023 until 09/04/2024 End: 09-11-2025 Comprehensive metabolic 2000 panel - Serum or Plasma COMPREHENSIVE METABOLIC PANEL Lab Routine 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) Once per week for 100 Occurrences starting 09/11/2024 until 09/11/2025, 1 completed [facility] Comment on above: Once per week for 100 Occurrences starti ng 09/11/2024 until 09/11/2025, 1 completed End: 09-04-2024 CYTOMEGALOVIRUS (CMV) DNA, QUANTITATIVE PCR, PLASMA CYTOMEGALOVIRUS (CMV) DNA, QUANTITATIVE PCR, PLASMA Lab Routine 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) Once per week for 100 Occurrences starting 09/05/2023 until 09/04/2024 [facility] Comment on above: Once per week for 100 Occurrences starti ng 09/05/2023 until 09/04/2024 End: 09-11-2025 CYTOMEGALOVIRUS (CMV) DNA, QUANTITATIVE PCR, PLASMA CYTOMEGALOVIRUS (CMV) DNA, QUANTITATIVE PCR, PLASMA Lab Routine 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) Once per week for 100 Occurrences starting 09/11/2024 until 09/11/2025 [facility] Comment on above: Once per week for 100 Occurrences starti ng 09/11/2024 until 09/11/2025 CYTOMEGALOVIRUS (CMV ) DNA, QUANTITATIVE PCR, PLASMA CYTOMEGALOVIRUS (CMV) DNA, QUANTITATIVE PCR, PLASMA Lab Routine 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) 09/11/2024 8:20 AM EDT [facility] End: 02-08-2025 DXA Skeletal system.axial Views for bone density and vertebral fracture DXA-AXIAL SKELETON WITH VFA Radiology Routine Aftercare following organ transplant Steroid-induced osteopenia Current chronic use of systemic steroids 1 Occurrences starting 01/10/2024 until 02/08/2025 [facility] Work Phone: Comment on above: 1 Occurrences starting 01/10/2024 until 02/08/2025 End: 11-16-2024 ECG COMPLETE ECG COMPLETE ECG STAT Preoperative examination 1 Occurrences starting 11/17/2023 until 11/16/2024 [facility] Work Phone: Comment on above: 1 Occurrences starting 11/17/2023 until 11/16/2024 ENTERIC BACTERIAL PA GEMINI BY PCR ENTERIC BACTERIAL PANEL BY PCR Lab Routine Diarrhea, unspecified type Ordered: 10/16/2024 [facility] Work Phone: Comment on above: Ordered: 10/16/2024 End: 09-04-2024 Nelsy Pineda virus DNA [#/volume] (viral load) in Blood by MARY CARMEN with probe detection NELSY-PINEDA VIRUS DNA QUANTIFICATION BY PCR, PLASMA Lab Routine Lung replaced by transplant ([facility]) Once per week for 100 Occurrences starting 09/05/2023 until 09/04/2024 [facility] Comment on above: Once per week for 100 Occurrences starti ng 09/05/2023 until 09/04/2024 End: 09-11-2025 Nelsy Pineda virus DNA [#/volume] (viral load) in Blood by MARY CARMEN with probe detection NELSY-PINEDA VIRUS (EBV) DNA, QUANTITATIVE PCR, PLASMA Lab Routine Lung replaced by transplant ([facility]) Once per week for 100 Occurrences starting 09/11/2024 until 09/11/2025 [facility] Comment on above: Once per week for 100 Occurrences starti ng 09/11/2024 until 09/11/2025 Nelsy Pineda virus D NA [#/volume] (viral load) in Blood by MARY CARMEN with probe detection NELSY-PINEDA VIRUS (EBV) DNA, QUANTITATIVE PCR, PLASMA Lab Routine Lung replaced by transplant (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) 1 Occurrences starting 08/11/2022 until 08/12/2023 [facility] Work Phone: Comment on above: 1 Occurrences starting 08/11/2022 until 08/12/2023 Fungus identified in Unspecified specimen by Culture [facility] Work Phone: Comment on above: Release Upon Ordering for 1 Occurrences starting 09/03/2022 Fungus identified in Unspecified specimen by Culture [facility] Comment on above: Release Upon Ordering for 1 Occurrences starting 07/21/2023 End: 09-10-2023 Gastric emptying imaging study NM GASTRIC EMPTYING SOLID Radiology Routine Dyspepsia 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) 1 Occurrences starting 08/11/2022 until 09/10/2023 [facility] Work Phone: Comment on above: 1 Occurrences starting 08/11/2022 until 09/10/2023 End: 04-28-2023 Glucose [Mass/volume] in Serum or Plasma POCT Glucose Point of Care Testing - Docked Device Routine Once (Lab) for 1 Occurrences starting 04/28/2023 until 04/28/2023 [facility] Service Area Work Phone: Comment on above: Once (Lab) for 1 Occurrences starting until 04/28/2023 End: 08-11-2023 HEART/LUNG REC POST TX DSA HEART/LUNG REC POST TX DSA ALLOGEN Routine Dyspepsia Lung replaced by transplant (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 02/24/2022 7:21 AM EST [facility] Work Phone: End: 11-18-2022 HRT H/L LUNG REC HLA AB SCRN HRT H/L LUNG REC HLA AB SCRN ALLOGEN Routine Transplant Chronic obstructive pulmonary disease, unspecified COPD type (HCC) Encounter for pre-transplant evaluation for lung transplant Lung transplant candidate SOB (shortness of breath) care home current use of systemic steroids 1 Occurrences starting 11/18/2021 until 11/18/2022 [facility] Work Phone: Comment on above: 1 Occurrences starting 11/18/2021 until 11/18/2022 HRT H/L LUNG REC HLA AB SCRN HRT H/L LUNG REC HLA AB SCRN ALLOGEN Routine Lung transplant candidate 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 02/24/2022 7:21 AM EST [facility] [employer] Work Phone: Injection aa&/strd other peripheral nerve/branch INJECT ANESTH AGENT Procedures Routine Primary osteoarthritis of right knee Ordered: 04/30/2024 [facility] Work Phone: Comment on above: Ordered: 04/30/2024 Legionella pneumophi la DNA [Presence] in Unspecified specimen by MARY CARMEN with probe detection [facility] Work Phone: Comment on above: Release Upon Ordering for 1 Occurrences starting 09/03/2022 Legionella pneumophi la DNA [Presence] in Unspecified specimen by MARY CARMEN with probe detection [facility] Comment on above: Release Upon Ordering for 1 Occurrences starting 07/21/2023 Magnesium [Mass/volu me] in Serum or Plasma MAGNESIUM BLD Lab Routine Lung transplant candidate 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 02/24/2022 7:21 AM EST [facility] [employer] Work Phone: OCCULT BLD EXAM-DIAG OCCULT BLD EXAM-DIAG Microbiology Routine Diarrhea, unspecified type Ordered: 10/16/2024 [facility] Comment on above: Ordered: 10/16/2024 End: 08-12-2023 PH INSERT OFF MEDS PH INSERT OFF MEDS Endoscopy Routine Dyspepsia 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) 1 Occurrences starting 08/11/2022 until 08/12/2023 [facility] Work Phone: Comment on above: 1 Occurrences starting 08/11/2022 until 08/12/2023 PNEUMOCYSTIS JIROVEC I PCR [facility] Work Phone: Comment on above: Release Upon Ordering for 1 Occurrences starting 09/03/2022 PNEUMOCYSTIS JIROVEC II PCR [facility] Comment on above: Release Upon Ordering for 1 Occurrences starting 07/21/2023 End: 04-24-2025 Polysomnogram POLYSOMNOGRAM (PSG) Procedures Routine Aftercare following organ transplant 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 Encounter for monitoring tacrolimus therapy Essential hypertension Mixed hyperlipidemia Steroid-induced osteopenia Gastroesophageal reflux disease without esophagitis 1 Occurrences starting 04/24/2024 until 04/24/2025 [facility] Comment on above: 1 Occurrences starting 04/24/2024 until 04/24/2025 Polysomnography [facility] End: 12-18-2022 Radiologic exam chest 2 views XR CHEST 2V FRONTAL/LAT Radiology Routine Transplant Chronic obstructive pulmonary disease, unspecified COPD type ([facility]) Encounter for pre-transplant evaluation for lung transplant Lung transplant candidate SOB (shortness of breath) care home current use of systemic steroids 1 Occurrences starting 11/18/2021 until 12/18/2022 [facility] Work Phone: Comment on above: 1 Occurrences starting 11/18/2021 until 12/18/2022 End: 09-10-2023 Radiologic exam chest 2 views XR CHEST 2V FRONTAL/LAT Radiology Routine Dyspepsia 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) 1 Occurrences starting 08/11/2022 until 09/10/2023 [facility] Work Phone: Comment on above: 1 Occurrences starting 08/11/2022 until 09/10/2023 Radiologic exam ches t 2 views XR CHEST 2V FRONTAL/LAT Radiology Routine Lung transplant recipient (HCC) Aftercare following organ transplant Human immunodeficiency virus (HIV) disease ([facility]) Encounter for monitoring tacrolimus therapy Essential hypertension Hyperlipidemia, unspecified hyperlipidemia type Gastroesophageal reflux disease without esophagitis Steroid-induced osteopenia Obesity, Class II, BMI 35-39.9 Methicillin resistant Staphylococcus aureus colonization 10/21/2022 7:17 AM [facility] [employer] Work Phone: SIX MINUTE WALK SIX MINUTE WALK PFT Routine Transplant Chronic obstructive pulmonary disease, unspecified COPD type (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) 08/25/2022 8:44 AM [facility] Work Phone: SPIROMETRY BASELINE ONLY SPIROMETRY BASELINE ONLY PFT Routine Lung replaced by transplant ([facility]) Other chronic pain 10/04/2022 9:05 AM [facility] Work Phone: SPIROMETRY BASELINE ONLY SPIROMETRY BASELINE ONLY PFT Routine Lung transplant recipient ([facility]) Aftercare following organ transplant Encounter for monitoring tacrolimus therapy Essential hypertension Gastroesophageal reflux disease without esophagitis Pure hypertriglyceridemia Encounter for screening for osteoporosis care home current use of systemic steroids 11/29/2022 9:38 AM EDT [facility] Work Phone: SPIROMETRY BASELINE ONLY SPIROMETRY BASELINE ONLY PFT Routine Lung replaced by transplant (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 Encounter for monitoring tacrolimus therapy Essential hypertension Mixed hyperlipidemia Steroid-induced osteopenia Gastroesophageal reflux disease without esophagitis 07/17/2024 7:29 AM EDT [facility] Work Phone: SURGICAL PATHOLOGY [facility] Comment on above: Release Upon Ordering for 1 Occurrences starting 07/21/2023, 1 completed Surgical pathology study [facility] Service Area Work Phone: Comment on above: Release Upon Ordering for 1 Occurrences starting 07/18/2023 End: 09-04-2024 Tacrolimus [Mass/volume] in Blood TACROLIMUS/FK-506 BL Lab Routine 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) Once per week for 100 Occurrences starting 09/05/2023 until 09/04/2024 [facility] Comment on above: Once per week for 100 Occurrences starti ng 09/05/2023 until 09/04/2024 End: 09-11-2025 Tacrolimus [Mass/volume] in Blood TACROLIMUS/FK-506 BL Lab Routine 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) Once per week for 100 Occurrences starting 09/11/2024 until 09/11/2025 [facility] Comment on above: Once per week for 100 Occurrences starti ng 09/11/2024 until 09/11/2025 Tacrolimus [Mass/volume] in Blood TACROLIMUS/FK-506 BL Lab Routine 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) 09/11/2024 8:20 AM EDT [facility] End: 02-01-2025 XR Knee - right 4 Views XR KNEE GENERAL 4V AP BOTH/PA BOTH/LAT/MERC RIGHT Radiology Routine Acute pain of right knee 1 Occurrences starting 01/03/2024 until 02/01/2025 [facility] Work Phone: Comment on above: 1 Occurrences starting 01/03/2024 until 02/01/2025 XR Knee - right 4 Views XR KNEE GENERAL 4V AP BOTH/PA BOTH/LAT/MERC RIGHT Radiology Routine Acute pain of right knee 01/03/2024 9:59 AM EST [facility] End: 08-18-2025 XR Knee - right 4 Views XR KNEE GENERAL 4V AP BOTH/PA BOTH/LAT/MERC RIGHT Radiology Routine Pain 1 Occurrences starting 07/19/2024 until 08/18/2025 [facility] Work Phone: Comment on above: 1 Occurrences starting 07/19/2024 until 08/18/2025 [facility] H23 [facility] Immunizations Immunization Date Immunization Notes Care Provider Fa [facility] 11-10-2023 COVID-19 vaccine, ag e 12+ yr (PFIZER-BIONTECH COMIRNATY) Pulm 4 [facility] 11-10-2023 influenza, high dose seasonal, preservative-free Pulm 4 [facility] 11-10-2023 influenza virus vaccine, unspecified formulation Lung Main Work Phone: [facility] 07-21-2023 COVID-19 vaccine, ag e 12+ yr, season (PFIZER-BIONTECH) Pulm 1 Work Phone: [facility] 12-05-2022 respiratory syncytia l virus (RSV) vaccine, adjuvanted (AREXVY) Keshav Phillips APRN.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 MANAGER Work Phone: [facility] 11-08-2022 influenza (aIIV4) vaccine, age 65+ yr, quadrivalent, PF (FLUAD QUAD) Pulm 4 [facility] Work Phone: 11-08-2022 influenza virus vaccine, unspecified formulation Wilbert Umanzor MD Work Phone: [facility] 02-24-2022 hepatitis B vaccine, adult dosage Pulm 8 [facility] 11-18-2021 COVID-19 booster vaccine, age 12+ yr, bivalent (PFIZER-BIONTECH) Darryl Willis MD Work Phone: [facility] 11-18-2021 influenza, high-dose , quadrivalent vaccine (FLUZONE HIGH DOSE QUADRIVALENT) Darryl Willis MD Work Phone: [facility] 11-18-2021 influenza virus vaccine, unspecified formulation Pulm 8 [facility] 07-22-2021 hepatitis A and hepatitis B vaccine Nurse Lab I [facility] 07-22-2021 pneumococcal (PCV20) vaccine, 20 valent (PREVNAR 20) Nurse Lab I [facility] 07-22-2021 hepatitis B vaccine, unspecified formulation Nurse Lab I [facility] 04-13-2021 hepatitis A and hepatitis B vaccine Pulm 1 Work Phone: [facility] 04-13-2021 tetanus toxoid, redu saurabh diphtheria toxoid, and acellular pertussis vaccine, adsorbed Pulm 1 Work Phone: [facility] 04-13-2021 hepatitis B vaccine, unspecified formulation Pulm 1 Work Phone: [facility] 11-20-2020 Seasonal, quadrivale nt, recombinant, injectable influenza vaccine, preservative free Mu Miller MD, PhD Work Phone: [facility] 12-20-2019 influenza, injectabl e, quadrivalent, contains preservative Pulm 1 Work Phone: [facility] 04-19-2019 zoster vaccine recombinant Mu Miller MD, PhD Work Phone: [facility] 11-16-2018 Seasonal, quadrivale nt, recombinant, injectable influenza vaccine, preservative free Mu Miller MD, PhD Work Phone: [facility] 11-16-2018 zoster vaccine recombinant Mu Miller MD, PhD Work Phone: [facility] 10-26-2016 influenza virus vaccine, unspecified formulation Mu Miller MD, PhD Work Phone: [facility] 10-26-2016 zoster vaccine, live Mu case MD, PhD Work Phone: [facility] 02-03-2016 influenza, injectabl e, quadrivalent, preservative free Mu Miller MD, PhD Work Phone: [facility] Payers Date Payer Category Payer Self-pay [id number] 2022 Managed Care (Private) [facility] [id number] 2017 Private Health Insurance 2017 Private Health Insurance [id number] 2017 Unknown [facility] [place] D[employer] xxxxxxxxx 2017-Present xxxxxxxxx [id number] .[id number] 2017 Unknown [id number] [id number] .7.3.614812.315 2017 Unknown [id number] 2016 Medicare [id number] 2013 Medicare xxxxxxxxxxx [id number] .[id number] 2013 Medicare 2013 Medicare [id number] .[id number] 2013 Unknown [id number]. 1.13.159.2 .7.3.156839.315 2012 Medicare [id number] 1956 Unknown [id number] 2.16.840.1.276834.3.579.2 .1956 Unknown [id number] 2.16.840.1.619511.3.579.2 .717 1956 Unknown [id number] 2.16.840.1.723848.3.579.2 .7 1956 Unknown [id number] 2.16.840.1.999676.3.579.2 .1956 Unknown [id number] 2.16.840.1.399221.3.579.2 .1956 Unknown [id number] 2.16.840.1.121078.3.579.2 .1956 Unknown [id number] 2.16.840.1.960142.3.579.2 .1956 Unknown [id number] 2.16.840.1.881081.3.579.2 .1956 Unknown [id number] 2.16840.1.746624.3.579.2 .1956 Unknown [id number] 2.840.1.360219.3.579.2 .1956 Unknown [id number] 2.16840.1.352462.3.579.2 .1956 Unknown [id number] 2.16840.1.188549.3.579.2 .1956 Unknown [id number] 2.16.840.1.553811.3.579.2 .1956 Unknown [id number] 2.16840.1.627852.3.579.2 .1956 Unknown [id number] 2.16.840.1.723493.3.579.2 .1956 Unknown [id number] 2.16.840.1.844414.3.579.2 .1068 1956 Unknown [id number] 2.16.840.1.659196.3.579.2 .1068 1956 Unknown [id number] 2.16.840.1.097669.3.579.2 .1061957 Unknown [id number] 2.16.840.1.751304.3.579.2 .1068 1956 Unknown [id number] 2.16.840.1.618866.3.579.2 .1068 1956 Unknown [id number] 2.16.840.1.853101.3.579.2 .1068 1956 Unknown [id number] 2.16.840.1.479900.3.579.2 .1068 1956 Unknown [id number] 2.16.840.1.731754.3.579.2 .1068 1956 Unknown [id number] 2.16.840.1.451208.3.579.2 .1068 1956 Unknown [id number] 2.840.1.581842.3.579.2 .1242 1956 Unknown [id number] 2.16.840.1.319516.3.579.2 .1242 1956 Unknown [id number] 2.16.840.1.368731.3.579.2 .1242 1956 Unknown [id number] 2.16.840.1.034172.3.579.2 .1242 1956 Unknown [id number] 2.16840.1.601306.3.579.2 .1242 1956 Unknown [id number] 2.16.840.1.942220.3.579.2 .1242 1956 Unknown [id number] 2.16.840.1.514550.3.579.2 .1242 1956 Unknown [id number] 2.16.840.1.746955.3.579.2 .1242 1956 Unknown [id number] 2.16.840.1.924155.3.579.2 .1242 1956 Unknown [id number] 2.16.840.1.627444.3.579.2 .1243 1956 Unknown [id number] 2.16.840.1.880223.3.579.2 .1243 1956 Unknown [id number] 2.16.840.1.646024.3.579.2 .1243 1956 Unknown [id number] 2.16.840.1.832307.3.579.2 .1243 1956 Unknown [id number] 2.16.840.1.293948.3.579.2 .1243 1956 Unknown [id number] 2.16.840.1.316492.3.579.2 .1243 1956 Unknown [id number] 2.16.840.1.954600.3.579.2 .1243 1956 Unknown [id number] 2.16.840.1.915081.3.579.2 .1243 Unknown [id number] 2.16.840.1.897471.3.579.2 .462 Unknown [id number] 2.16.840.1.262765.3.579.2 .462 Unknown [id number] 2.16.840.1.846418.3.579.2 .462 Unknown [id number] 2.16.840.1.985948.3.579.2 .462 Unknown [id number] 2.16.840.1.624081.3.579.2 .462 Social History Date Type Detail Facility Start: 09-30-2017 End: 04-27-2023 Tobacco smoking status NHIS Former smoker [facility] Start: 02-08-1980 End: 02-10-2010 History of tobacco use Current smoker [facility] Start: 02-08-1980 End: 02-10-2010 History of tobacco use Cigarette Smoker [facility] Start: 09-30-2017 End: 07-18-2023 Cigarettes smoked current (pack per day) - Reported [facility] Start: 1955 Sex Assigned At Not on file O [facility] Start: 09-16-2017 Alcohol Comment 1-2 times per month [facility] Start: 08-23-2018 End: 01-22-2019 Alcohol intake Current drinker of alcohol (finding) [facility] Start: 10-24-2019 End: 04-27-2023 Tobacco use and exposure Never used [facility] Start: 09-24-2019 End: 07-18-2023 Exposure to SARS-CoV-2 (event) Not sure [facility] Start: 05-20-2021 End: 07-17-2024 Alcohol intake Lifetime non-drinker (finding) [facility] Start: 04-10-2020 End: 07-20-2022 History SDOH Alcohol Frequency 1 [facility] Start: 1955 Sex Assigned At Male C [facility] Start: 12-04-2012 End: 12-04-2012 Tobacco smoking status VAIS Unknown if ever smoked [facility] Start: 07-20-2022 History SDOH Financial 5 [facility] Start: 07-20-2022 History SDOH Transpo rt Med 2 [facility] Start: 08-11-2022 End: 07-18-2023 Tobacco use panel [facility] Start: 03-29-2012 End: 01-01-2022 How hard is it for you to pay for the very basics like food, housing, medical care, and heating Not hard at all [facility] (I/We) worried harini er (my/our) food would run out before (I/we) got money to buy more. Never true [facility] In the past 12 month s, was there a time when you were not able to pay the mortgage or rent on time? No [facility] Start: 01-26-2021 Gender identity Identifies as male gender (finding) [facility] How often to you hav e a drink containing alcohol? Never [facility] Start: 04-28-2023 End: 07-18-2023 Alcohol intake Ex-drinker (finding) [facility] Work Phone: Start: 05-09-2024 Sex Male (finding) [facility] Medical Equipment Procedure Code Equipment Code Equipment Origin al Text Equipment Identifier Dates [place] Plate, 10 Holes - [id number] Start: 07-20-2022 3.5 X 12mm Self-Drilling Locking Screw Purple - [id number] Start: 07-20-2022 Start: 08-03-2022 End: 10-04-2022 Comment on above: Use as instructed; c heck your blood glucose three times daily before meals. Use 1 Each three milton es daily before meals. 3.5 X 12mm Self-Drilling Locking Screw Purple - [id number] Start: 07-20-2022 3.5 X 12mm Self-Drilling Locking Screw Purple - [id number] Start: 07-20-2022 3.5 X 12mm Self-Drilling Locking Screw Purple - [id number] Start: 07-20-2022 3.5 X 12mm Self-Drilling Locking Screw Purple - [id number] Start: 07-20-2022 3.5 X 12mm Self-Drilling Locking Screw Purple - [id number] Start: 07-20-2022 3.5 X 12mm Self-Drilling Locking Screw Purple - [id number] Start: 07-20-2022 3.5 X 12mm Self-Drilling Locking Screw Purple - [id number] Start: 07-20-2022 Lens, Intraocula r, Sn60wf 20.0 Yoanna - [id number] - [id number] Start: 04-28-2023 Lens, Intraocula r, Sn60wf 20.0 Yoanna - [id number] - [id number] Start: 05-26-2023 Functional Status Date Assessment Result Facility 07-18-2023 [place] - suicide severity rating scale screener - recent [C-SSRS] [facility] Work Phone: 07-18-2023 [facility] Work Phone: 07-18-2023 Functional status [facility] 02-23-2022 Are you deaf, or do you have serious difficulty hearing No 02/23/2022 10:00 PM Aditi Wall RN No [facility] 02-23-2022 Are you blind, or do you have serious difficulty seeing, even when wearing glasses No 02/23/2022 10:00 PM Aditi Wall RN No [facility] 02-23-2022 Do you have serious difficulty walking or climbing stairs No 02/23/2022 10:00 PM Aditi Wall RN No [facility] 02-23-2022 Do you have difficul ty dressing or bathing No 02/23/2022 10:00 PM Aditi Wall RN No [facility] 02-23-2022 Because of a physica l, mental, or emotional condition, do you have difficulty doing errands alone such as visiting a physician's office or shopping No 02/23/2022 10:00 PM Aditi Wall RN [facility] Work Phone: Mental Status Date Assessment Result Facility 07-18-2023 Cognitive function finding Negat fiorella 07/18/2023 9:25 AM EDT Shiloh Dobson RN [facility] Work Phone: 02-23-2022 Because of a physica l, mental, or emotional condition, do you have serious difficulty concentrating, remembering, or making decisions No 02/23/2022 10:00 PM Aditi Wall RN No [facility] Clinical Notes 05-20-2021 to 10-24-2024 Telephone Encounter - [facility] - 10/24/2024 10:31 AM EDTTelephone Encounter - [facility] - 10/24/2024 10:31 AM Keshav Nunez APRN.[facility] - 10/16/2024 1:26 PM EDT Note Date & Type Note Facility 10-24-2024 Telephone encounter Note Patient requesting refills for tacrolimus 1mg and tacrolimus 5mg sent to [facility] so we can get shipped out SYLVIE. Unable to transfsfer in Rxs for tacrolimus sent to [facility] on 10/22/24 due to medicare part b rules.. Resending refill requests to be sent to [facility]. Thank you! Patient requests refill of: Requested Prescriptions Pending Prescriptions Disp Refills tacrolimus IR (PROGRAF) 1 mg capsule 240 capsule 11 Sig: Take 4 capsules by mouth two times a day. Take with 5mg capsules. Total daily dose is 9 mg in the AM and 9 mg in the PM. tacrolimus IR (PROGRAF) 5 mg capsule 60 capsule 11 Sig: Take 1 capsule by mouth two times a day. Take with Tacro 4 mg BID for total dose of 9 mg BID If approved, please e-script the attached order to [facility]. Thank you, Shukri Neville [facility] [phone] [facility] 10-24-2024 Miscellaneous Notes Patient requesting refills for tacrolimus 1mg and tacrolimus 5mg sent to [facility] so we can get shipped out SYLVIE. Unable to transfsfer in Rxs for tacrolimus sent to [facility] on 10/22/24 due to medicare part b rules.. Resending refill requests to be sent to [facility]. Thank you! Patient requests refill of: Requested Prescriptions Pending Prescriptions Disp Refills tacrolimus IR (PROGRAF) 1 mg capsule 240 capsule 11 Sig: Take 4 capsules by mouth two times a day. Take with 5mg capsules. Total daily dose is 9 mg in the AM and 9 mg in the PM. tacrolimus IR (PROGRAF) 5 mg capsule 60 capsule 11 Sig: Take 1 capsule by mouth two times a day. Take with Tacro 4 mg BID for total dose of 9 mg BID If approved, please e-script the attached order to [facility]. Thank you, Shukri Neville [facility] [phone] documented in this encounter [facility] 10-22-2024 Telephone encounter Note Patient requests refill of: Requested Prescriptions Pending Prescriptions Disp Refills tacrolimus IR (PROGRAF) 1 mg capsule 720 capsule 1 Sig: Take 4 capsules by mouth two times a day. Take with 5mg capsules. Total daily dose is 9 mg in the AM and 9 mg in the PM. tacrolimus IR (PROGRAF) 5 mg capsule 180 capsule 1 Sig: Take 1 capsule by mouth two times a day. Take with Tacro 4 mg BID for total dose of 9 mg BID If approved, please e-script the attached order to [facility]. Thank you, Shukri Neville [facility] [phone] [facility] 10-22-2024 Miscellaneous Notes Patient requests refill of: Requested Prescriptions Pending Prescriptions Disp Refills tacrolimus IR (PROGRAF) 1 mg capsule 720 capsule 1 Sig: Take 4 capsules by mouth two times a day. Take with 5mg capsules. Total daily dose is 9 mg in the AM and 9 mg in the PM. tacrolimus IR (PROGRAF) 5 mg capsule 180 capsule 1 Sig: Take 1 capsule by mouth two times a day. Take with Tacro 4 mg BID for total dose of 9 mg BID If approved, please e-script the attached order to [facility]. Thank you, Shukri Neville [facility] [phone] documented in this encounter [facility] 10-19-2024 Telephone encounter Note Pt notified. Estefanía Thurston MA [facility] 10-19-2024 Miscellaneous Notes Pt notified. Estefanía Thurston MA Pt active on [employer]- message sent. Will leave encounter open until pr reads Devi Robertson MA Please let patient know his stool testing is negative for infection and blood. documented in this encounter [facility] 10-18-2024 Telephone encounter Note Pt active on mychart- message sent. Will leave encounter open until pr reads Devi Robertson MA [facility] 10-18-2024 Telephone encounter Note Please let patient know his stool testing is negative for infection and blood. [facility] 10-16-2024 Telephone encounter Note Labs reviewed with Dr. Magallanes, decrease Tacro to 9 mg BID. Instructed to have labs drawn on 10/29/24, patient verbalized understanding. The following approved medication requests have been transmitted electronically. Requested Prescriptions Pending Prescriptions Disp Refills tacrolimus IR (PROGRAF) 1 mg capsule Sig: Take 4 capsules by mouth two times a day. Take with 5mg capsules. Total daily dose is 9 mg in the AM and 9 mg in the PM. tacrolimus IR (PROGRAF) 5 mg capsule Sig: Take 1 capsule by mouth two times a day. Take with Tacro 4 mg BID for total dose of 9 mg BID Thomas Correia RN [facility] 10-16-2024 Miscellaneous Notes Labs reviewed with Dr. Magallanes, decrease Tacro to 9 mg BID. Instructed to have labs drawn on 10/29/24, patient verbalized understanding. The following approved medication requests have been transmitted electronically. Requested Prescriptions Pending Prescriptions Disp Refills tacrolimus IR (PROGRAF) 1 mg capsule Sig: Take 4 capsules by mouth two times a day. Take with 5mg capsules. Total daily dose is 9 mg in the AM and 9 mg in the PM. tacrolimus IR (PROGRAF) 5 mg capsule Sig: Take 1 capsule by mouth two times a day. Take with Tacro 4 mg BID for total dose of 9 mg BID Thomas Correia RN Tacrolimus level was supratherapeutic at 12.3 (goal 9-12). Current dose is 10/9. Would recommend decreasing dose to 9/. Recheck labs in 2 weeks. Herber Phillip RPh Transplants: 07/20/2022 (Lung) Lab Results Component Value Date FK506 12.3 10/15/2024 CREAT 1.79 (H) 10/15/2024 K 4.5 10/15/2024 WBC 7.00 10/15/2024 HB 10.2 (L) 10/15/2024 ABSNEUT 4.77 10/15/2024 CMVCPY Not detected 10/15/2024 Estimated Creatinine Clearance: 48.3 mL/min (A) (based on SCr of 1.79 mg/dL (H)). documented in this encounter [facility] 10-16-2024 Telephone encounter Note Tacrolimus level was supratherapeutic at 12.3 (goal 9-12). Current dose is 10/9. Would recommend decreasing dose to 10/16. Recheck labs in 2 weeks. Herber Phillip RPh Transplants: 07/20/2022 (Lung) Lab Results Component Value Date FK506 12.3 10/15/2024 CREAT 1.79 (H) 10/15/2024 K 4.5 10/15/2024 WBC 7.00 10/15/2024 HB 10.2 (L) 10/15/2024 ABSNEUT 4.77 10/15/2024 CMVCPY Not detected 10/15/2024 Estimated Creatinine Clearance: 48.3 mL/min (A) (based on SCr of 1.79 mg/dL (H)). [facility] Work Phone: 10-16-2024 History of Presen t illness Narrative Chief Complaint Patient presents with: Diarrhea: X 3 weeks HPI Belgica Angelo is a 69 year old male who presents here today for Above Complaints.. Patient presents for diarrhea. Contacted transplant provider who recommended follow up with PCP for concern cdiff. Currently on bactrim and zithromax chronically following lung transplant. Past medical history, appointments, medications, allergies reviewed. Previous Medical History PAST MEDICAL HISTORY Diagnosis Date Asthma (HCC) Bronchiectasis (HCC) COPD (chronic obstructive pulmonary disease) (HCC) Dependence on supplemental oxygen No longer neede post transplant Heterozygous alpha 1-antitrypsin deficiency (HCC) PiMZ Lung nodule Pain in joint, ankle and foot S/P lung transplant (HCC) Previous Surgical History PAST SURGICAL HISTORY Procedure Laterality Date LUNG TRANSPLANT,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 PAST SURGICAL HISTORY OF 02/07/2011 Rt foot reconstruction REMV CATARACT EXTRACAP,INSERT LENS REMV CATARACT EXTRACAP,INSERT LENS Right 04/28/2023 SN60WF +20.0 D RPR UMBILICAL HRNA 5 YRS/> REDUCIBLE 07/26/2012 Hernia repair, umbilical >5yr Family History FAMILY HISTORY Problem Relation Age of Onset COPD Mother Heart disease Father Breast Cancer Sister No Known Problems Sister No Known Problems Sister COPD Brother COPD Brother Tuberculosis No Family History Patient Allergies ALLERGIES Allergen Reactions Nsaids (Non-Steroid* Contraindication-Medical Surgical Patient states he is not allergic to Nsaids- caused upset stomach Penicillins GI Upset Patient states he is not allergic to penicillin- caused upset stomach Current Medications Current Outpatient Medications on File Prior to Visit Medication Sig azithromycin (ZITHROMAX) 250 mg tablet Take 1 tablet by mouth every Tuesday, Tuesday, and Tuesday. sertraline (ZOLOFT) 100 mg tablet Take 1 tablet by mouth once daily. sildenafil (VIAGRA) 100 mg tablet Take 1 tablet by mouth once daily as needed. Take 30-60 minutes before sexual activity. pantoprazole DR (PROTONIX) 20 mg tablet Take 1 tablet by mouth daily at 6 am. sulfamethoxazole-trimethoprim (BACTRIM DS) 800-160 mg per tablet TAKE 1 TABLET BY MOUTH EVERY TUESDAY,TUESDAY,AND TUESDAY mycophenolate mofetil (CELLCEPT) 250 mg capsule Take 3 capsules by mouth two times a day. predniSONE (DELTASONE) 5 mg tablet Take 1 tablet by mouth once daily. tacrolimus IR (PROGRAF) 1 mg capsule Take 4 capsules by mouth every evening. Take with 5mg capsules. Total daily dose is 10mg in the AM and 9mg in the PM. tacrolimus IR (PROGRAF) 5 mg capsule Take 2 capsules by mouth every morning AND 1 capsule every evening. Take with 1mg capsules. Total daily dose is 10mg in the AM and 9mg in the PM.. alendronate (FOSAMAX) 70 mg tablet Take 1 tablet by mouth one time a week. In the morning with a full glass of water, on an empty stomach. Do not take anything else by mouth or lie down for the next 30 minutes. PHOSPHOROUS 250 mg tablet TAKE 1 TABLET BY MOUTH EVERY DAY albuterol (PROVENTIL) 2.5 mg /3 mL (0.083 %) nebulizer solution USE 1 VIAL IN NEBULIZER 4 TIMES DAILY magnesium oxide (MAG-OX) 400 mg (241.3 mg magnesium) tablet Take 1 tablet by mouth two times a day. atorvastatin (LIPITOR) 10 mg tablet Take 1 tablet by mouth daily at bedtime. traMADol (ULTRAM) 50 mg tablet Take 1 tablet by mouth every 4 hours as needed for pain (for pain.). No current facility-administered medications on file prior to visit. Social History SOCIAL HISTORY[1] Review of Symptoms REVIEW OF SYSTEMS SEE HPI EXAM: BP 135/93 Pulse 90 Wt 111.1 kg (245 lb) BMI 36.50 kg/m General Appearance: Well appearing, alert, in no acute distress, well-hydrated, well nourished.. Abdomen: Normal abdominal exam, Abdomen soft, non-tender. Bowel sounds normal. No masses, organomegaly. Health Maintenance List Colorectal Cancer Screening due on 07/17/2024 Influenza Vaccine(1) due on 10/08/2024 Lung Cancer Screening due on 11/09/2024 Annual PCP Team Chronic Disease Visit due on 09/03/2025 Depression Screening due on 09/03/2025 Anxiety Screening due on 09/03/2025 Medicare Annual Wellness Visit due on 09/03/2025 Diabetes Screening due on 10/16/2027 Prostate Cancer Screening Discussion due on 01/18/2029 Lipid Screening due on 07/03/2029 DTaP,Tdap,Td Vaccine(2 - Td or Tdap) due on 04/14/2031 Advance Directive Discussion Completed RSV Vaccine Completed Hepatitis C Screening Completed Shingrix Vaccine Completed Pneumococcal Vaccine: 50+ Completed Abdominal Aortic Aneurysm Screening Discontinued ASSESSMENT/PLAN: 1. Diarrhea, unspecified type - ICD9: 787.91, ICD10: R19.7 - ENTERIC BACTERIAL PANEL BY PCR - OCCULT BLD EXAM-DIAG - CLOSTRIDIUM DIFFICILE TOXIN BY PCR Keshav Phillips APRN.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 MANAGER [1] Social History Tobacco Use Smoking status: Former Current packs/day: 0.00 Average packs/day: 4.0 packs/day for 30.0 years (120.0 ttl pk-yrs) Types: Cigarettes Start date: 1980 Quit date: 2010 Years since quittin.6 Smokeless tobacco: Never Vaping Use Vaping status: Never Used Substance Use Topics Alcohol use: Never Drug use: Never documented in this encounter [facility] 10-16-2024 Telephone encounter Note Reason for Conversation Diarrhea Background Patient calls for moderate diarrhea x 3 weeks. Transplant doctor is concerned with possible c-diff. Nurse triage completed. Protocol recommends see provider within 24 hours. Appt scheduled. Care advice reviewed with verbalized understanding. Disposition See PCP Within 24 Hours Reason for Disposition MODERATE diarrhea (e.g., 4-6 times / day more than normal) 1. ANTIBIOTIC: Azithromycin and Bactrim DS every MWF. 2. ANTIBIOTIC ONSET: On-going for quite sometime. Transplant doctor is concerned with C-diff. 3. DIARRHEA SEVERITY: - MILD (SCALE 1-3): Few loose or mushy BMs; increase of 1-3 stools over normal daily number of stools; mild increase in ostomy output. TO - MODERATE (SCALE 4-7): Increase of 4-6 stools daily over normal; moderate increase in ostomy output. *4. ONSET: Three weeks ago. 5. BM CONSISTENCY: Watery. Dark Brown. Patient reports drinking a lot of electrolyte drinks such as Gatorade that are dark in color. 6. VOMITING: No 7. ABDOMEN PAIN: No 8. ABDOMEN PAIN SEVERITY: NA 9. ORAL INTAKE: NA 10. HYDRATION: No dry mouth [not just dry lips], too weak to stand, dizziness, new weight loss. Urinating per usual. 11. EXPOSURE: No recent travel, exposure, or spoiled food. 12. OTHER SYMPTOMS: No fever, blood in stool No Additional Information on file. Protocols Used Diarrhea on [id number] [facility] 10-16-2024 Miscellaneous Notes Reason for Conversation Diarrhea Background Patient calls for moderate diarrhea x 3 weeks. Transplant doctor is concerned with possible c-diff. Nurse triage completed. Protocol recommends see provider within 24 hours. Appt scheduled. Care advice reviewed with verbalized understanding. Disposition See PCP Within 24 Hours Reason for Disposition MODERATE diarrhea (e.g., 4-6 times / day more than normal) 1. ANTIBIOTIC: Azithromycin and Bactrim DS every MWF. 2. ANTIBIOTIC ONSET: On-going for quite sometime. Transplant doctor is concerned with C-diff. 3. DIARRHEA SEVERITY: - MILD (SCALE 1-3): Few loose or mushy BMs; increase of 1-3 stools over normal daily number of stools; mild increase in ostomy output. TO - MODERATE (SCALE 4-7): Increase of 4-6 stools daily over normal; moderate increase in ostomy output. *4. ONSET: Three weeks ago. 5. BM CONSISTENCY: Watery. Dark Brown. Patient reports drinking a lot of electrolyte drinks such as Gatorade that are dark in color. 6. VOMITING: No 7. ABDOMEN PAIN: No 8. ABDOMEN PAIN SEVERITY: NA 9. ORAL INTAKE: NA 10. HYDRATION: No dry mouth [not just dry lips], too weak to stand, dizziness, new weight loss. Urinating per usual. 11. EXPOSURE: No recent travel, exposure, or spoiled food. 12. OTHER SYMPTOMS: No fever, blood in stool No Additional Information on file. Protocols Used Diarrhea on [id number] documented in this encounter [facility] 10-10-2024 Telephone encounter Note Called patient and asked him to get labs on 10/15 [facility] 10-10-2024 Miscellaneous Notes Called patient and asked him to get labs on 10/15 Summary: Standing Labs Patient requesting a return call back to confirm when he should complete his next standing labs.Please call [facility] at documented in this encounter [facility] 10-10-2024 Telephone encounter Note Summary: Standing Labs Patient requesting a return call back to confirm when he should complete his next standing labs.Please call [facility] at [facility] 10-03-2024 History of Presen t illness Narrative Images from the original note were not included. Episode Visit Count: 1 Therapist That Will Accept/Oversee The Plan Of Care: Himanshu Oviedo Start of Care Date: 10/02/24 Onset Date: 02/08/24 Plan of Care Certification Date: 10/02/24 Next Certification Due Date: 12/02/24 [facility]ERAPY PHYSICAL THERAPY EVALUATION PLAN OF CARE: Assessment: Belgica Angelo presents with diagnosis of knee OA that interferes with rising from a chair, standing, walking in the community, stair negotiation, bending, heavy exertion, physical activities . The patient presents with impairments in ADL's, overall function, range of motion, strength, and symptom management. PROMIS (Patient-Reported Outcomes Measurement Information System) scores were reviewed and identified as a rehabilitation concern. Prognosis for therapy is Fair due to: clinical presentation, chronic nature of impairments, limited tolerance to activity . The patient will benefit from skilled therapy services to meet the goals established for this plan of care as noted below. Goals for Episode of Care: established 10/02/24 [place] in home exercise program. Patient will decrease pain rating by 2 points to meet minimal clinical important difference for numeric pain rating scale. Patient will increase active ROM of R knee to 0 degrees extension to allow pt to to improve performance of ADLs and to improve gait mechanics / gait pattern . Patient will demonstrate increase in R knee and hip strength to 5/5 during manual muscle testing in order to improve function for basic self-care tasks, home management tasks, and prior functional tasks. Perform walking, standing, stairs with decreased report of symptoms/pain in 6-8 weeks. Patient will improve 5 time sit to stand to demonstrate improvement in functional lower extremity strength. Time Frame for Goals and Treatment : 11/03/24 Planned Interventions, Frequency, and Duration: Current Frequency: 1x/week Duration: 4 weeks Total Number of Visits Planned: 4 Planned Treatment Interventions: Therapeutic exercise (96976), Neuromuscular re-education (00478), Manual therapy (28490), Therapeutic activities (28590), Self-penitentiary management (78490), Gait Training (19773), Patient/Family/Caregiver Education, Body Mechanics Training, Aquatic PT (00245) PLAN FOR NEXT VISIT: Continue exercise progression per tolerance. Improve knee extension ROM and quad strength Patient demonstrates good understanding of plan of care and treatment. The above goals and plan of care were discussed and agreed upon by patient/family. SUBJECTIVE: R knee pain and bone on bone OA. Patient notes that the knee can give out on him and is very painful. Limits his function with stairs, walking, and ADLs. Most of the pain is in the front and he gets a lot of painful crepitus as well. Functional Limitations: rising from a chair, standing, walking in the community, stair negotiation, bending, heavy exertion, physical activities Prior Level of Function: Independent with restrictions Independent with the following restrictions: Lung transplant recipient Intake Information: Prescription present Pain: Pain Pain Level: 7 Pain Location: Knee - Right Description: Sharp, Aching Frequency: Continuous PROMIS Scales 05/31/2024 04/30/2024 02/10/2024 Higher is Better Phys Func - T Score 32 (moderate dysfunction) 37 (moderate dysfunction) 33 (moderate dysfunction) Phys Func - Percentile 4 10 4 05/31/2024 04/30/2024 02/10/2024 Lower is Better Pain Interference - T Score 67 (moderate) 67 (moderate) 65 (moderate) Pain Interference - Percentile 4 4 7 T-Score and Percentile Interpretation T-scores: mean of general population = 50. 5 points is clinically meaningfully difference Percentiles provide an indication of how the patient's score ranks in relation to the general population. Higher percentile rankings indicate better function/quality of life. 50th percentile is the average of the general population and indicates half of respondents had a worse score. OBJECTIVE MEASURES WITH LEVEL OF FUNCTION: LE AROM R Knee Extension: -4 Degrees R Knee Flexion: 125 Degrees L Knee Extension: 0 Degrees L Knee Flexion: 133 Degrees Dynamometer Strength Right Quadriceps Strength (lbs): 41.1 Left Quadriceps Strength (lbs): 42.7 Waist / Hip Waist Circumference (inches): 51 Inches Hip Circumference (inches): 46.5 Inches Waist to Hip Ratio:: 1.1 [place] waist/hip ratio: Male: 0.9 or Less Functional Performance Test Results 5 Times Sit to Stand Test : 22.21 sec Timed Up and Go (sec): 11.54 sec Education: Education Learning Preferences: Demonstration, Explanation, Performance, Printed Materials Barriers: None Learning/educational needs: Home exercise program, Plan of Care, Body Mechanics Education Provided: Yes, see treatment interventions for education provided Education Provided To: Patient Education Mode/Type: Demonstration, Explanation/Discussion, Literature/Printed Materials, Performance Response to Education/Teach Back: States/Identifies TREATMENT: PT Treatment Interventions: Therapeutic Exercise, Self-Senior Care Management Evaluation Therapeutic Exercise: 1: *SL hip abduction 3x10 2: *SLR 3x10 3: *STS 3x10 4: *Step ups onto 1 standard step in home with railings for safety 3x10 5: *Heel slides 3x10, 3-5 sec holds 6: *Knee extension stretch with prop on heel wedge 3x10, 5 sec holds Skilled Intervention: Patient was educated in proper exercise technique and purpose for exercises. Skilled judgment was used in selection of appropriate interventions. Provided written instruction for home exercise program to facilitate proper performance and compliance. Correct performance of therapeutic exercises was facilitated with verbal and visual cuing. Self-Senior Care Management: 1: Spent ample time discussing options for PT including aquatic therapy. Discussed with patient that he cannot bill insurance for 2 therapy visits in same day, so he cannot do land and water therapy on same day 2: Discussed exam results and needs for OA management, discussed moving smart goals and course Skilled Intervention: Skilled judgment in the selection of proper modification for activity of daily living/home management based on clinical presentation, deficits, and needs. Reviewed patient specific diagnosis in relation to activities of daily living/home management. Activity progression based on professional judgement. Billing * Evaluation Low Complexity: 1 Unit Therapeutic Exercise Treatment Minutes: 10 Self-Care/Home Management Treatment Minutes: 16 Skilled Treatment Time Minutes (timed and untimed codes): 41 Total Session Time (minutes): 41 Session Start Time : 1504 Session Stop Time : 1545 Himanshu Oviedo PT Program_ID:[id number] Access Code: [email or web address] URL: [email or web address] Date: 10-02-2024 Prepared By: Himanshu Oviedo Program Notes Exercises - Sidelying Hip Abduction - 1 x daily - 7 x weekly - 3 sets - 10 reps - Supine Active Straight Leg Raise - 1 x daily - 7 x weekly - 3 sets - 10 reps - Sit to Stand with Arms Crossed - 1 x daily - 7 x weekly - 3 sets - 10 reps - Step Up - 1 x daily - 7 x weekly - 3 sets - 10 reps - Supine Heel Slide - 1 x daily - 7 x weekly - 3 sets - 10 reps - Supine Knee Extension Stretch on Towel Roll - 1 x daily - 7 x weekly - 3 sets - 10 reps documented in this encounter [facility] 10-03-2024 Telephone encounter Note PT order faxed and confirmation received. SUZETTE Jeronimo [facility] 10-03-2024 Miscellaneous Notes PT order faxed and confirmation received. SUZETTE Jeronimo Spouse called to request a new referral for physical therapy to be sent to [facility]. Patient will be receiving aquatic therapy as well at the facility. Please fax to [phone]. documented in this encounter [facility] 10-03-2024 Telephone encounter Note Spouse called to request a new referral for physical therapy to be sent to [facility]. Patient will be receiving aquatic therapy as well at the facility. Please fax to [phone]. [facility] 10-01-2024 Telephone encounter Note Spoke with patient. For the past week he has been having watery diarrhea up to 10 times per day. He has not started any new medications or supplements. Denies abdominal pain/cramping, nausea and vomiting. Afebrile. He is staying hydrated and taking medications as prescribed. Advised he should reach out to local MD for c diff sample and call our office back with results. Patient verbalized understanding. [facility] 10-01-2024 Miscellaneous Notes Spoke with patient. For the past week he has been having watery diarrhea up to 10 times per day. He has not started any new medications or supplements. Denies abdominal pain/cramping, nausea and vomiting. Afebrile. He is staying hydrated and taking medications as prescribed. Advised he should reach out to local MD for c diff sample and call our office back with results. Patient verbalized understanding. Patient called concerning diarrhea . Requesting a return call from the management coordinator. Please call patient at [phone] . documented in this encounter [facility] 10-01-2024 Telephone encounter Note Patient called concerning diarrhea . Requesting a return call from the management coordinator. Please call patient at [phone] . [facility] 09-27-2024 Evaluation note Diagnosis Onset Date Resolution Daytime hypersomnia acute Sepus 2024 8:59am Asthma chronic September 27, 2 025 8:59am Obesity chronic September 27, 025 8:59am S/P lung transplant chronic 2024 8:59am [facility] Work Phone: 1(493) 827-846708-20-2025 History of Present illness Narrative* Deedee Chance MA - 09/26/2024 4:23 PM EDT POPULATION HEALTH NAVIGATION OUTREACH Action/FYI Contacted patient to schedule HCC care gaps and health maintenance. 1st attempt: Left message with my direct number 2nd attempt: My Chart message sent UPdated follow up appointment to include HCC gap closure. Topic Due (Y or N) Comments Annual Wellness Exam No PCP Follow up No Colorectal Cancer Screening Yes A1C No HTN/Controlling BP No HCC Yes Updated appointment notes No Reason for Outreach Care Gap/HCC or Scheduling Wellness Visits Care Gaps due: Colorectal Cancer Screening Patient Contacted: Unable or unnecessary to reach patient: Left message MyChart message sent HCC related Updated appointment notes Navigation Signature: Deedee Chance MA September 26, 2024 4:23 PM [facility] History of Present illness Narrative* Moon Tomlinson DO - 09/25/2024 10:51 AM EDT NEW PATIENT HISTORY AND PHYSICAL EXAM PATIENT INFO: Belgica Angelo 68 year old REFERRING Anya: No referring provider defined for this encounter. HISTORY CHIEF COMPLAINT: pain in Right Knee ASSESSMENT/PLAN: M17.11 Primary osteoarthritis of right knee (primary encounter diagnosis) Comment: Patient has had right knee pain for several years. He uses a walking stick for ambulation.Prior viscosupplementation as well as steroid injections and genicular nerve block provided minimalrelief. Discussed treatment options today including conservative and surgical. At this point the patient is interested in proceeding with a right total knee arthroplasty. I did discuss that he is at increased risk of infection given his antirejection drugs as well as his current BMI. We ordered to the get ready program for this patient. We also ordered aquatic therapy to help improve function andreduce his pain and facilitate weight loss. I would see him back in 2 months time for repeat evaluat ion. He was just at the dentist within the past year prior to his lung transplant had multiple teeth pulled. He has no current infection. Z94.2 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 ([facility]) Comment: We would plan to do this downtown. 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 He isaccompanied by his , who is providing additional history. DI reports chronic right knee pain that has progressively worsened over time. He has previously undergone intra-articular gel injections at [facility] in [place] within the past year, administered by Dr. Conchita Martel, which provided minimal relief, lasting less than a day. He also received a genicular nerve block, which was ineffective. He has been using a walking stick for ambulation for approximately a year and occasionally uses a knee brace, which he reports is worn out but helps prevent twisting of the knee. He denies any groin or hip pain. 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 He is currently on a regimen of Bactrim, Zithromax, CellCept, prednisone, Prograf, and Fosamax. He also has a history of right talonavicular fusion with hardware removal in 1999. PAST MEDICAL HISTORY Diagnosis Date Asthma ([facility]) Bronchiectasis ([facility]) COPD (chronic obstructive pulmonary disease) ([facility]) Dependence on supplemental oxygen No longer neede post transplant Heterozygous alpha 1-antitrypsin deficiency (HCC) PiMZ Lung nodule Pain in joint, ankle and foot S/P lung transplant (HCC) PAST SURGICAL HISTORY Procedure Laterality Date LUNG TRANSPLANT,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 PAST SURGICAL HISTORY OF 02/07/2011 Rt foot reconstruction REMV CATARACT EXTRACAP,INSERT LENS REMV CATARACT EXTRACAP,INSERT LENS Right 04/28/2023 SN60WF +20.0 D RPR UMBILICAL HRNA 5 YRS/> REDUCIBLE 07/26/2012 Hernia repair, umbilical >5yr Current Outpatient Medications Medication Sig Dispense Refill azithromycin (ZITHROMAX) 250 mg tablet Take 1 tablet by mouth every Tuesday, Tuesday, and Tuesday. 36 tablet 3 sertraline (ZOLOFT) 100 mg tablet Take 1 tablet by mouth once daily. 90 tablet 1 sildenafil (VIAGRA) 100 mg tablet Take 1 tablet by mouth once daily as needed. Take 30-60 minutes before sexual activity. [address] (PROTONIX) 20 mg tablet Take 1 tablet by mouth daily at 6 am. 90 tablet 3 sulfamethoxazole-trimethoprim (BACTRIM DS) 800-160 mg per tablet TAKE 1 TABLET BY MOUTH EVERY TUESDAY,TUESDAY,AND TUESDAY 36 tablet 3 mycophenolate mofetil (CELLCEPT) 250 mg capsule Take 3 capsules by mouth two times a day. 180 capsule 11 predniSONE (DELTASONE) 5 mg tablet Take 1 tablet by mouth once daily. 30 tablet 11 tacrolimus IR (PROGRAF) 1 mg capsule Take 4 capsules by mouth every evening. Take with 5mg capsules. Total daily dose is 10mg in the AM and 9mg in the PM. 120 capsule 11 tacrolimus IR (PROGRAF) 5 mg capsule Take 2 capsules by mouth every morning AND 1 capsule every evening. Take with 1mg capsules. Total daily dose is 10mg in the AM and 9mg in the PM.. 90 capsule 11 alendronate (FOSAMAX) 70 mg tablet Take 1 tablet by mouth one time a week. In the morning with a full glass of water, on an empty stomach. Do not take anything else by mouth or lie down for the next 30 minutes. 12 tablet 1 PHOSPHOROUS 250 mg tablet TAKE 1 TABLET BY MOUTH EVERY DAY 180 tablet 3 albuterol (PROVENTIL) 2.5 mg /3 mL (0.083 %) nebulizer solution USE 1 VIAL IN NEBULIZER 4 TIMES DAILY 120 mL 5 magnesium oxide (MAG-OX) 400 mg (241.3 mg magnesium) tablet Take 1 tablet by mouth two times a day.180 tablet 3 atorvastatin (LIPITOR) 10 mg tablet Take 1 tablet by mouth daily at bedtime. 90 tablet 3 traMADol (ULTRAM) 50 mg tablet Take 1 tablet by mouth every 4 hours as needed for pain (for pain.).56 tablet 0 No current facility-administered medications for this visit. ALLERGIES Allergen Reactions Nsaids (Non-Steroid* Contraindication-Medical Surgical Patient states he is not allergic to Nsaids- caused upset stomach Penicillins GI Upset Patient states he is not allergic to penicillin- caused upset stomach FAMILY HISTORY Problem Relation Age of Onset COPD Mother Heart disease Father Breast Cancer Sister No Known Problems Sister No Known Problems Sister COPD Brother COPD Brother Tuberculosis No Family History SOCIAL HISTORY[1] Prior surgical treatments: None on the right knee Review of Systems: Review of Systems - General ROS: negative for - chills or fever Psychological ROS: negative for - behavioral disorder or hostility Respiratory: Negative for chest tightness and shortness of breath. Musculoskeletal ROS: positive for -right knee pain Hematologic/Lymph: negative for DVT, negative for anticoagulation All other systems deferred. CARDIAC: regular rate to peripheral pulse palpation LUNGS: Breathing non labored, equal chest expansion GENERAL: Appears healthy, well-nourished, no deformities. HABITUS: well developed or well nourished GAIT: Patient walked with a walking stick limp NEURO: L3-S1 Sensation intact VASCULAR: Palpable dorsalis pedis pulse ORTHO EXAM: Right knee exam today moderate effusion. He is able to reach near full extension his flexion is to 120 degrees he has a varus deformity correctable to neutral pain over the medial joint line mild lateral joint line discomfort. Grinding pain with Nirali's no click or pop no groin pain with hip internal/external rotation. No cruciate or collateral ligament instability. DIAGNOSTICS: X-rays reviewed today do reveal [id number] medial compartment disease of the right knee. Varus deformity Moon Tomlinson DO [1] Social History Tobacco Use Smoking status: Former Current packs/day: 0.00 Average packs/day: 4.0 packs/day for 30.0 years (120.0 ttl pk-yrs) Types: Cigarettes Start date: 1980 Quit date: 2010 Years since quittin.6 Smokeless tobacco: Never Vaping Use Vaping status: Never Used Substance Use Topics Alcohol use: Never Drug use: Never * Dominga Eason RN - 09/25/2024 10:20 AM EDT Right knee pain Walking stick for ambulation 07/20/22 Bilateral lung transplant for COPD-follows with the transplant team q 3 mos, HTN, GERD, HLD, steroid induced osteopenia Fosamax, cellcept, prograf, prednisone NSAID's cause GI upset 2010 right talonavicular fusion with subsequent removal of hardware for persistent right foot/anklepain 04/30/24 right genicular nerve block recommended and completed 05/17/24 with 20% improvement with pain management Gel and CSI's in the past with no benefit HDAI Mortality 5th quintile risk Unplanned readmission 5th quintile risk documented in [facility]Community [facility] History of Present illness Narrative* Angela White RT(R) - 09/25/2024 9:50 AM EDT Radiology Service Progress Note PATIENT NAME: Belgica Angelo DATE OF SERVICE: September 25, 2024 TIME: 10:21 AM PATIENT IDENTITY VERIFICATION COMPLETED USING TWO (2) IDENTIFIERS: Name and Date of confirmedby patient verbally. FALL SCREENING: Has the patient had 2 falls in the last year or 1 fall with injury or currently using an Ambulatory Assistive Device (Walker, Cane, Wheelchair, Crutches, etc.)? No PATIENT GENDER DATA: Assigned male at PATIENT RELEVANT IMPLANT DATA REVIEWED: Yes PATIENT PRESENTS WITH AN IMPLANTABLE OR ATTACHED CURATOR NATURAL HISTORY MUSEUM: No RADIOLOGY DEPARTMENT: General X-ray: Exam(s) Completed: Lower Extremity X- Ray(s): Knee, AP / Lat / Tunne / Merchant Right PERIPHERAL IV DATA: Not applicable SIGNED BY: RT Galindo(R) September 25, 2024 10:21 AM documented in this encounterCommunity [facility]08-[facility] Telephone encounter Note * Telephone Encounter - Shira Escobar RN - 09/24/2024 1:41 PM EDT The following approved medication requests have been transmitted electronically. Requested Prescriptions Pending Prescriptions Disp Refills azithromycin (ZITHROMAX) 250 mg tablet 36 tablet 3 Sig: Take 1 tablet by mouth every Tuesday, Tuesday, and Tuesday. Shira Escobar RN [facility]08-[facility] Miscellaneous Notes* Telephone Encounter - Shira Escobar RN - 09/24/2024 1:41 PM EDT The following approved medication requests have been transmitted electronically. Requested Prescriptions Pending Prescriptions Disp Refills azithromycin (ZITHROMAX) 250 mg tablet 36 tablet 3 Sig: Take 1 tablet by mouth every Tuesday, Tuesday, and Tuesday. Shira Escobar RN documented in this encounterCommunity [facility]08-[facility]-2025 Telephone encounter Note * Telephone Encounter - Estefanía Thurston MA - 09/18/2024 2:46 PM EDT Letter mailed to pt home of results. Estefanía Thurston MA [facility] Miscellaneous Notes* Telephone Encounter - Estefanía Thurston MA - 09/18/2024 2:46 PM EDT Letter mailed to pt home of results. Estefanía Thurston MA * Telephone Encounter - Devi Robertson MA - 09/13/2024 8:30 AM EDT Pt active on mychart- message sent will leave encounter open until pt views Devi Robertson MA * Telephone Encounter - Keshav Phillips APRN.CNP - 09/13/2024 7:43 AM EDT Please let patient know his hgba1c is6.0 which is considered prediabetic. Patient should avoid processed and high carb foods as well as focus on weight loss of 5-10% or 12-25 pounds. documented in this encounterCommunity [facility] Telephone encounter Note * Telephone Encounter - Devi Robertson MA - 09/13/2024 8:30 AM EDT Pt active on [employer]- message sent will leave encounter open until pt views Devi Robertson MA [facility] Telephone encounter Note* Telephone Encounter - Keshav Phillips APRN.CNP - 09/13/2024 7:43 AM EDT Please let patient know his hgba1c is6.0 which is considered prediabetic. Patient should avoid processed and high carb foods as well as focus on weight loss of 5-10% or 12-25 pounds. [facility] Telephone encounter Note* Telephone Encounter - Estefanía Bonilla RN - 09/11/2024 8:09 AM EDT Standing lab orders placed in Epic and patient called and notified. [facility] Miscellaneous Notes* Telephone Encounter - Estefanía Bonilla RN - 09/11/2024 8:09 AM EDT Standing lab orders placed in Epic and patient called and notified. * Telephone Encounter - Eloise Magdaleno - 09/11/2024 8:03 AM EDT Urgent Standing Lab Orders Needed in Epic - Patient called in, is currently at [facility], requests [facility], and once done call the patient, so labs can get drawn. Please call the patient at [phone]. Paged Post Transplant Coordinators due to Urgency. Eloise Magdaleno documented in this encounterCommunity [facility]08-[facility]-2025 Telephone encounter Note * Telephone Encounter - Eloise Magdaleno - 09/11/2024 8:03 AM EDT Urgent Standing Lab Orders Needed in Epic - Patient called in, is currently at [facility], requests Standing Lab Orders be filed in [facility], and once done call the patient, so labs can get drawn. Please call the patient at [phone]. Paged Post Transplant Coordinators due to Urgency. Eloise Magdaleno [facility] Telephone encounter Note* Telephone Encounter - Gayatri Cordero RN - 09/10/2024 1:50 PM EDT Patient being worked up to have knee replacement at [facility] by Dr Tomlinson. Pt wanted to confirm if he could have the surgery there, I advised yes. [facility] Miscellaneous Notes* Telephone Encounter - Gayatri Cordero RN - 09/10/2024 1:50 PM EDT Patient being worked up to have knee replacement at [facility] by Dr Tomlinson. Pt wanted to confirm if he could have the surgery there, I advised yes. * Telephone Encounter - Jonathan Rachel - 09/10/2024 1:37 PM EDT Patient is calling regarding where to go to get knee replacement will like to speak with his coord. documented in this encounterCommunity [facility]08-[facility] Telephone encounter Note * Telephone Encounter - Jonathan Rachel - 09/10/2024 1:37 PM EDT Patient is calling regarding where to go to get knee replacement will like to speak with his coord. [facility] Telephone encounter Note* Telephone Encounter - Erma Lehman RN - 09/05/2024 10:49 AM EDT Patient calls to request refills for sertraline and sildenafil be sent to [facility] not [facility]. Pended as requested. Please review and advise, Erma Lehman RN [facility] Miscellaneous Notes* Telephone Encounter - Erma Lehman RN - 09/05/2024 10:49 AM EDT Patient calls to request refills for sertraline and sildenafil be sent to [facility] not [facility]. Pended as requested. Please review and advise, Erma Lehman RN documented in this encounterCommunity [facility] Hospital07-28-2025 History of Present illness Narrative* Keshav Phillips, ANA LAURA.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 MANAGER - 09/03/2024 9:05 AM EDT Images from the original note were not included. Belgica Angelo is a 68 year old male here for a Medicare wellness visit. Medicare Health Risk Assessment General Health Fair Exercise: Minutes/Day Walks Exercise: Days/Week 5 Alcohol: Daily Use No Alcohol: Drinks/Day No Alcohol: 6 or more drinks No Feel off balance No Concerns: Teeth/Dentures No Concerns: Sexual function No Troubled by feelings No Frequency: Eating healthy diet 2-3 days a week ADLs requiring help No Safety precautions in home/vehicle Yes Smoke, vape, chews tobacco No Difficulty hearing No Difficulty seeing No, wears glasses Current Providers Specialists: I have reviewed specialist-related care of the patient in the medical record. Current care team: Patient Care Team: Keshav Phillips APRN.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 MANAGER as PCP - General (Family Medicine) Regina Decker APRN.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 MANAGER as Referring (Transplant Center) Regina Decker APRN.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 MANAGER as Home Care Provider (Transplant Center) Tushar Juárez OD (Optometry) Medical/Family history review Reviewed and updated problem list, medical/surgical/family/social history, medications, and allergies. Opioid use review Opioid Medications (last 90 days) 09/03/2024 Opioid Medications tramadol HCl 50 mg q 4 H PRN for pain. PO Details Outpatient prescription Prescribed tramadol HCl (last 90 days) Does patient have risk factors for opioid abuse? No Pain overview Current pain concerns and treatment plan reviewed. Patient stable on current treatment plan. Anxiety/Depression screening PHQ-2 Score: 0 (Lower risk for anxiety) Recommendation: no further intervention at this time Cognitive screening Cognitive screening reviewed and No further action needed (score 3-5). Functional Observation Was the patient's Timed Up & Go test unsteady or >= 12 seconds? No Advance Care Planning Surrogate decision maker and/or advance care plan documented Measurements BP 120/74 Pulse 96 Wt 117 kg (257 lb 15 oz) BMI 37.01 kg/m Vision Screening: Follows with optometry/ophthalmology Assessment/Plan Medicare annual wellness visit, subsequent (Z00.00) - Counseled on healthy diet and regular exercise - Fall avoidance information provided - Personalized prevention plan provided - Discussed need for and benefit of weight loss. BMI 37.01 kg/(m^2) Chief Complaint Patient presents with: Medicare Wellness Exam HPI Belgica Angelo is a 68 year old male who presents here today for Above Complaints. Patient presents for annual wellness exam. Patient follows with transplant team every 3 months. Past medical history, appointments, medications, allergies reviewed. Previous Medical History PAST MEDICAL HISTORY Diagnosis Date Asthma (HCC) Bronchiectasis (HCC) COPD (chronic obstructive pulmonary disease) (HCC) Dependence on supplemental oxygen No longer neede post transplant Heterozygous alpha 1-antitrypsin deficiency (HCC) PiMZ Lung nodule Pain in joint, ankle and foot S/P lung transplant (HCC) Previous Surgical History PAST SURGICAL HISTORY Procedure Laterality Date LUNG TRANSPLANT,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 PAST SURGICAL HISTORY OF 02/07/2011 Rt foot reconstruction REMV CATARACT EXTRACAP,INSERT LENS REMV CATARACT EXTRACAP,INSERT LENS Right 04/28/2023 SN60WF +20.0 D RPR UMBILICAL HRNA 5 YRS/> REDUCIBLE 07/26/2012 Hernia repair, umbilical >5yr Family History FAMILY HISTORY Problem Relation Age of Onset COPD Mother Heart disease Father Breast Cancer Sister No Known Problems Sister No Known Problems Sister COPD Brother COPD Brother Tuberculosis No Family History Patient Allergies ALLERGIES Allergen Reactions Nsaids (Non-Steroid* Contraindication-Medical Surgical Patient states he is not allergic to Nsaids- caused upset stomach Penicillins GI Upset Patient states he is not allergic to penicillin- caused upset stomach Current Medications Current Outpatient Medications on File Prior to Visit Medication Sig pantoprazole DR (PROTONIX) 20 mg tablet Take 1 tablet by mouth daily at 6 am. sulfamethoxazole-trimethoprim (BACTRIM DS) 800-160 mg per tablet TAKE 1 TABLET BY MOUTH EVERY TUESDAY,TUESDAY,AND TUESDAY mycophenolate mofetil (CELLCEPT) 250 mg capsule Take 3 capsules by mouth two times a day. predniSONE (DELTASONE) 5 mg tablet Take 1 tablet by mouth once daily. tacrolimus IR (PROGRAF) 1 mg capsule Take 4 capsules by mouth every evening. Take with 5mg capsules. Total daily dose is 10mg in the AM and 9mg in the PM. tacrolimus IR (PROGRAF) 5 mg capsule Take 2 capsules by mouth every morning AND 1 capsule every evening. Take with 1mg capsules. Total daily dose is 10mg in the AM and 9mg in the PM.. alendronate (FOSAMAX) 70 mg tablet Take 1 tablet by mouth one time a week. In the morning with a full glass of water, on an empty stomach. Do not take anything else by mouth or lie down for the next 30 minutes. PHOSPHOROUS 250 mg tablet TAKE 1 TABLET BY MOUTH EVERY DAY albuterol (PROVENTIL) 2.5 mg /3 mL (0.083 %) nebulizer solution USE 1 VIAL IN NEBULIZER 4 TIMES DAILY magnesium oxide (MAG-OX) 400 mg (241.3 mg magnesium) tablet Take 1 tablet by mouth two times a day. atorvastatin (LIPITOR) 10 mg tablet Take 1 tablet by mouth daily at bedtime. azithromycin (ZITHROMAX) 250 mg tablet Take 1 tablet by mouth every Tuesday, Tuesday, and Tuesday. traMADol (ULTRAM) 50 mg tablet Take 1 tablet by mouth every 4 hours as needed for pain (for pain.). No current facility-administered medications on file prior to visit. Social History Social History Tobacco Use Smoking status: Former Current packs/day: 0.00 Average packs/day: 4.0 packs/day for 30.0 years (120.0 ttl pk-yrs) Types: Cigarettes Start date: 1980 Quit date: 2010 Years since quittin.5 Smokeless tobacco: Never Vaping Use Vaping status: Never Used Substance Use Topics Alcohol use: Never Drug use: Never Review of Symptoms REVIEW OF SYSTEMS SEE HPI EXAM: BP 120/74 Pulse 96 Wt 117 kg (257 lb 15 oz) BMI 37.01 kg/m General Appearance: Well appearing, alert, in no acute distress, well-hydrated, well nourished.. Skin: Skin color, texture, turgor normal, no suspicious rashes or lesions. Lungs: Lungs clear to auscultation. No wheezing, rhonchi, rales.. Heart: RRR without murmur, gallop, or rubs. No ectopy. Abdomen: Normal abdominal exam, Abdomen soft, non-tender. Bowel sounds normal. No masses, organomegaly. Musculoskeletal: Positive findings: joint location: on right knee swelling, loss of ROM, and stiffness. Peripheral Pulses: Normal. Neurologic: Gait normal. Reflexes normal and symmetric. Sensation grossly intact.. Health Maintenance List Meningococcal Conjugate Vaccine(1 - Risk 2-dose series) Never done Medicare Annual Wellness Visit Never done Advance Directive Discussion due on 02/08/2024 Depression Screening due on 07/10/2024 Anxiety Screening due on 07/10/2024 Colorectal Cancer Screening due on 07/17/2024 Influenza Vaccine(1) due on 10/08/2024 Lung Cancer Screening due on 11/09/2024 Annual PCP Team Chronic Disease Visit due on 01/02/2025 Diabetes Screening due on 08/10/2027 Prostate Cancer Screening Discussion due on 01/18/2029 Lipid Screening due on 07/03/2029 DTaP,Tdap,Td Vaccine(2 - Td or Tdap) due on 04/14/2031 RSV Vaccine Completed Hepatitis C Screening Completed Shingrix Vaccine Completed Pneumococcal Vaccine: 50+ Completed Hib Vaccine Aged Out Abdominal Aortic Aneurysm Screening Discontinued ASSESSMENT/PLAN: 1. Wellness examination - ICD9: V70.0, ICD10: Z00.00 (primary diagnosis) - Counseled on healthy diet and regular exercise - Discussed need for and benefit of weight loss. BMI 37.01 kg/(m^2) - Follow up for annual exam in one year 2. Screening for depression - ICD9: V79.0, ICD10: Z13.31 - DEPRESSION SCREENING 3. Encounter for screening examination for other mental health and behavioral disorders - ICD9: V79.8, ICD10: Z13.39 - ANXIETY SCREENING 4. JODY (generalized anxiety disorder) - ICD9: 300.02, ICD10: F41.1 - SERTRALINE 100 MG TABLET 5. ED (erectile dysfunction) of organic origin - ICD9: 607.84, ICD10: N52.9 - SILDENAFIL 100 MG TABLET 6. Primary osteoarthritis of right knee - ICD9: 715.16, ICD10: M17.11 -Following with orthopedics 7. Essential hypertension - ICD9: 401.9, ICD10: I10 - Controlled - Continue current medications - Recommend home blood pressure monitoring, to bring results to next visit - Encouraged sodium restriction, DASH or Mediterranean diet - Recommend regular aerobic exercise - Discussed need for and benefit of weight loss. BMI 37.01 kg/(m^2) 8. Gastroesophageal reflux disease without esophagitis - ICD9: 530.81, ICD10: K21.9 - Continue treatment with Pantoprazole 20mg QD 9. 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 10. Screening for diabetes mellitus - ICD9: V77.1, ICD10: Z13.1 - HEMOGLOBIN A1C Keshav Phillips APRN.CNP documented [facility] Instructions* Patient Instructions* Keshav Phillips APRN.CNP - 09/03/2024 9:05 AM EDT [facility] Sleep Department [phone] Screening schedule The following prevention plan is recommended: Meningococcal Conjugate Vaccine(1 - Risk 2-dose series) Never done Medicare Annual Wellness Visit Never done Advance Directive Discussion due on 02/08/2024 Depression Screening due on 07/10/2024 Anxiety Screening due on 07/10/2024 Colorectal Cancer Screening due on 07/17/2024 WHAT YOU CAN DO TO PREVENT FALLS Many falls can be prevented. By making some changes, you can lower your chances of falling. Four things YOU can do to prevent falls for you* and your caregiver 1. Begin a regular exercise program Exercise is one of the most important ways to lower your chances of falling. It makes you stronger and helps you feel better. Exercises that improve balance and coordination (like Hilario Chi) are the most helpful. Lack of exercise leads to weakness and increases your chances of falling. Ask your doctor or health care provider about the best type of exercise program for you. 2. Have your health care provider review your medicines Have your doctor or pharmacist review all the medicines you take, even oqzs-poz-ofwtxfr medicines. As you get older, the way medicines work in your body can change. Some medicines, or combinations of medicines, can make you sleepy or dizzy andcan cause you to fall. 3. Have your vision checked Have your eyes checked by an eye doctor at least once a year. You may be wearing the wrong glasses or have a condition like glaucoma or cataracts that limits your vision. Poor vision can increase your chances of falling. 4. Make your home safer About half of all falls happen at home. To make your home safer: Remove things you can trip over (like papers, books, clothes, and shoes) from stairs and places where you walk. Remove small throw rugs or use double-sided tape to keep the rugs from slipping. Keep items you use often in cabinets you can reach easily without using a step stool. Have grab bars put in next to your toilet and in the tub or shower. Use non-slip mats in the bathtub and on shower floors. Improve the lighting in your home. As you get older, you need brighter lights to see well. Hang light-weight curtains or shades to reduce glare. Have handrails and lights put in on all staircases. Wear shoes both inside and outside the house. Avoid going barefoot or wearing slippers. For more information, contact: Centers for Disease Control and Prevention www.cdc.gov/injury * This information may not apply if you have certain medical conditions. documented in this encounterCommunity [facility]07-[facility] Telephone encounter Note * Telephone Encounter - Soto Juárez - 08/15/2024 12:15 PM EDT Physician: ELPIDIO Call from pharmacy requesting refill. Please E-Scribe Last OV: 07/17/24 with ELPIDIO Future OV: 11/27/24 with ELPIDIO Requested Prescriptions Pending Prescriptions Disp Refills sulfamethoxazole-trimethoprim (BACTRIM DS) 800-160 mg per tablet [Pharmacy Med Name: SULFAMETHOXAZOLE-TMP DS TABLET] 36 tablet 3 Sig: TAKE 1 TABLET BY MOUTH EVERY TUESDAY,TUESDAY,AND TUESDAY Pharmacy Name: Pharmacy Phone #: Soto Juárez [facility] Miscellaneous Notes* Telephone Encounter - Soto Juárez - 08/15/2024 12:15 PM EDT Physician: ELPIDIO Call from pharmacy requesting refill. Please E-Scribe Last OV: 07/17/24 with ELPIDIO Future OV: 11/27/24 with ELPIDIO Requested Prescriptions Pending Prescriptions Disp Refills sulfamethoxazole-trimethoprim (BACTRIM DS) 800-160 mg per tablet [Pharmacy Med Name: SULFAMETHOXAZOLE-TMP DS TABLET] 36 tablet 3 Sig: TAKE 1 TABLET BY MOUTH EVERY TUESDAY,TUESDAY,AND TUESDAY Pharmacy Name: Pharmacy Phone #: Soto Juárez documented in this encounterCommunity [facility]07-[facility] Telephone encounter Note * Telephone Encounter - Archana Nolan - 08/15/2024 11:23 AM EDT Patient phones requesting refills as follows: Requested Prescriptions Pending Prescriptions Disp Refills pantoprazole DR (PROTONIX) 20 mg tablet 90 tablet 3 Sig: Take 1 tablet by mouth daily at 6 am. Please review and advise. Archana Nolan [facility] Work Phone: [phone] Miscellaneous Notes* Telephone Encounter - Archana Nolan - 08/15/2024 11:23 AM EDT Patient phones requesting refills as follows: Requested Prescriptions Pending Prescriptions Disp Refills pantoprazole DR (PROTONIX) 20 mg tablet 90 tablet 3 Sig: Take 1 tablet by mouth daily at 6 am. Please review and advise. Archana Nolan documented in this encounterCommunity [facility]07-08-[facility]25 Telephone encounter Note * Telephone Encounter - Magda Concepcion - 08/14/2024 12:36 PM EDT Patient phones requesting refills as follows: Requested Prescriptions Pending Prescriptions Disp Refills pantoprazole DR (PROTONIX) 20 mg tablet 90 tablet 3 Sig: Take 1 tablet by mouth daily at 6 am. Please review and advise. Magda Concepcion [facility] Miscellaneous Notes* Telephone Encounter - Magda Concepcion - 08/14/2024 12:36 PM EDT Patient phones requesting refills as follows: Requested Prescriptions Pending Prescriptions Disp Refills pantoprazole DR (PROTONIX) 20 mg tablet 90 tablet 3 Sig: Take 1 tablet by mouth daily at 6 am. Please review and advise. Magda Concepcion documented in this encounterCommunity [facility]07-07-2025 Telephone encounter Note * Telephone Encounter - Eileen Cm RPh - 08/13/2024 8:07 AM EDT Tacrolimus level was therapeutic at 9.4 (goal 9-12). Current dose is 10/9. Would recommend no change to current dose. Recheck labs in 1 month. Eileen Cm RPh [facility] Work Phone: [phone] Miscellaneous Notes* Telephone Encounter - Eileen Cm RPh - 08/13/2024 8:07 AM EDT Tacrolimus level was therapeutic at 9.4 (goal 9-12). Current dose is 10/9. Would recommend no change to current dose. Recheck labs in 1 month. Eileen Cm RPh * Telephone Encounter - Magda Concepcion - 08/13/2024 7:35 AM EDT Transplants: 07/20/2022 (Lung) Lab Results Component Value Date FK506 9.4 08/09/2024 CREAT 1.79 (H) 08/09/2024 K 4.6 08/09/2024 WBC 7.96 08/09/2024 HB 10.4 (L) 08/09/2024 ABSNEUT 5.07 08/09/2024 CMVCPY Not detected 08/09/2024 Estimated Creatinine Clearance: 50.5 mL/min (A) (based on SCr of 1.79 mg/dL (H)). tacrolimus IR (PROGRAF) 1 mg capsule Sig: Take 4 capsules by mouth every evening. Take with 5mg capsules. Total daily dose is 10mg in the AM and 9mg in the PM. tacrolimus IR (PROGRAF) 5 mg capsule 90 capsule Sig: Take 2 capsules by mouth every morning AND 1 capsule every evening. Take with 1mg capsules. Total daily dose is 10mg in the AM and 9mg in the PM.. documented in this encounterCommunity [facility]07-07-[facility]25 Telephone encounter Note * Telephone Encounter - Magda Concepcion - 08/13/2024 7:35 AM EDT Transplants: 07/20/2022 (Lung) Lab Results Component Value Date FK506 9.4 08/09/2024 CREAT 1.79 (H) 08/09/2024 K 4.6 08/09/2024 WBC 7.96 08/09/2024 HB 10.4 (L) 08/09/2024 ABSNEUT 5.07 08/09/2024 CMVCPY Not detected 08/09/2024 Estimated Creatinine Clearance: 50.5 mL/min (A) (based on SCr of 1.79 mg/dL (H)). tacrolimus IR (PROGRAF) 1 mg capsule Sig: Take 4 capsules by mouth every evening. Take with 5mg capsules. Total daily dose is 10mg in the AM and 9mg in the PM. tacrolimus IR (PROGRAF) 5 mg capsule 90 capsule Sig: Take 2 capsules by mouth every morning AND 1 capsule every evening. Take with 1mg capsules. Total daily dose is 10mg in the AM and 9mg in the PM.. [facility] Telephone encounter Note* Telephone Encounter - Bety Burrell RN - 07/18/2024 7:07 AM EDT Labs reviewed with Dr. Magallanes. No medication dosage changes at this time as levels are currently therapeutic. Patient instructed to repeat labs on 07/30/24. [facility] Miscellaneous Notes* Telephone Encounter - Bety Burrell RN - 07/18/2024 7:07 AM EDT Labs reviewed with Dr. Magallanes. No medication dosage changes at this time as levels are currently therapeutic. Patient instructed to repeat labs on 07/30/24. documented in this encounterCommunity [facility]06-10-[facility]25 Telephone encounter Note * Telephone Encounter - Thomas Correia RN - 07/17/2024 12:44 PM EDT Images from the original note were not included. Dermatology appointment 11/15/2022 Dermatology appointment 03/08/2024 No concerns for malignancy [facility] Miscellaneous Notes* Telephone Encounter - Thomas Correia RN - 07/17/2024 12:44 PM EDT Images from the original note were not included. Dermatology appointment 11/15/2022 Dermatology appointment 03/08/2024 No concerns for malignancy * Telephone Encounter - Devi Drake - 07/17/2024 12:32 PM EDTSummary: Medical Records Medical Records Uploaded documented in this encounterCommunity [facility]06-10-2025 Telephone encounter Note * Telephone Encounter - Dvei Drake - 07/17/2024 12:32 PM EDTSummary: Medical Records Medical Records Uploaded [facility] History of Present illness Narrative* Bety Burrell RN - 07/17/2024 8:00 AM EDT DI Angelo is a 68 year old male s/p Bilateral Sequential Lung Transplant with Dr. Juarez on 07/20/2022 for COPD / A1AT, here for follow up. Donor with Risk Factor Labs: none 1-2 Mo 08/19/22 DUE: HBV viral DNA: not detected HCV Quant RNA: not detected HIV RNA viral load: 10/04/22 DOS 07/19/22: HBV viral DNA: not detected, HepBsAb: positive, HCV Quant RNA: not detected, HIV Ag/Ab: nonreactive Pre- Tx. 07/17/22: HBV viral DNA: not detected, HepBsAb: positive, HCV Quant RNA: not detected, HepCab: , HIV Ag/Ab: nonreactive MEDICAL HISTORY: COPD Bronchiectasis A1AT on augmentation therapy (proteinase inhibitor once/week) lung nodules neuropathy right foot SURGICAL HISTORY right foot hernia repair EXPLANT PATHOLOGY: FINAL DIAGNOSIS A-B. Left and right lungs, explant pneumonectomies: - Centrilobular emphysema. - Patchy organizing pneumonia with focal giant cells reaction. - Benign reactive hilar lymph nodes. C-D. Left and right donor lungs, upper lobes, wedge resections: - Small arteries with early, organizing thrombi. - No specific pathologic diagnosis. CFF/mm/07/23/2022 POST TRANSPLANT EVENTS: CMV: Donor: Negative / Recipient: Positive EBV: Donor: Negative / Recipient: Positive PGD Scores: Score T 0 = Grade 1 Score T12 = Grade 1 Score T24 = Grade 1 Score T48 = Grade 1 Score T72 = Grade 1 07/20/22 Transplanted 07/21: extubated 07/22: ID consult +streptococcus on recipient swab; transferred to [facility] 07/25: Pain, hallucinations improved. Dizzy, hypotensive w/ BP 80s/50s, high chest tube output, 500mL NSB given. 07/26: Orthostatic hypotension, 80s/50s. IVF. Repeat lactate 2.8 after 1 L IV NS. Started on midodrine. 07/28: Pain improved, continues on epidural. Persistent orthostasis, start mestinon. EKG w/ stable QTc, start SOPHIA ppx. 07/29: Hypotensive (BP 63/37), dizzy while sitting up in chair, CMET activated, BP stabilized to 117/53 w/ 500mL NSB & holding epidural. Increase mestinon dosing. Conferred w/ APMS - transition to oral pain regimen. Epidural removed. 07/30: Give dose of IVIG for hypogam. 07/31: Improvement of pain with blocks. IVIG stopped overnight due to facial flushing and redness on arm. Improvement of leukocytosis; remains on IV Zosyn. 08/02: Left large bore CT removed. Transitioned to oral pain regimen. 08/03: Pain site of former L large bore CT. CXR w/ 2 tiny pneumothoraces on right. Placed blakes x suction. 08/06: Deemed safe for discharge. Desaturation study performed- did not qualify for oxygen. Discharged with bilateral ana drains to bulb suction with follow up appointment with CTS requested. Tacrolimus level was 12.1 on 3mg in AM and 2.5mg in PM. Scheduled for lung transplant clinic on 08/11/22 with 3 week surveillance bronchoscopy scheduled for 08/13/22. BRONCHOSCOPY: 11/18/23: A0B0 1 year 07/21/23 A0B0 + for one colony of Aspergillus niger 9 mo: 04/20/23 A0B0 6 mo: 01/19/23: AXBX 3 mo: 10/21/22: A0B0 6 wk: 09/03/22: A0B0 3 wk: 08/13/22: A0B0 DONOR SPECIFIC ANTIBODY (DSA): 07/16/24: PENDING 04/24/24: No Donor specific HLA antibody was detected 01/19/24: No Donor specific HLA antibody was detected 07/21/23: No Donor specific HLA antibody was detected in the 07/21/2023 Post-Tx sample. Previous DSA to allelic DQ2 (DQB1*02:01, DQA*05:01) declined to negative. 04/20/23: Donor specific HLA antibody to allelic DQ2 (DQB1*02:01, DQA*05:01) was detected. MFI values appear to be declining. 01/11/23: Donor specific HLA antibody to DQ2 was detected in the 01/10/2023 Post-Tx sample. MFI values appear to be stable, possibly increasing. 11/08/22: Donor specific HLA antibody to allelic DQ2 (DQB1*02:01, DQA*05:01) was detected in the 11/08/2022 Post-Tx sample. MFI values appear to be increasing. 10/21/22: Donor specific HLA antibody to allelic DQ2 (DQB1*02:01, DQA1*05:01) was detected in the 10/21/2022 Post-Tx sample. MFI values appear to be declining over time. 10/04/22: Donor specific HLA antibody to allelic DQ2 (DQB1*02:01, DQA1*05:01) was detected in the 10/04/2022 Post-Tx sample. MFI values appear to be stable. 09/01/22: Donor specific HLA antibody to allelic DQ2 (DQB1*02:01, DQA1*05:01) was detected 08/11/22: No Donor specific HLA antibody was detected 07/30/22: No Donor specific HLA antibody was detected ALLERGIES: Allergen Reactions Nsaids (Non-Steroid* Contraindication-Medical Surgical Penicillins Upset stomach CURRENT MEDICATIONS: Current Outpatient Medications Medication Sig tacrolimus IR (PROGRAF) 1 mg capsule Take 4 capsules by mouth every evening. Take with 5mg capsules. Total daily dose is 10mg in the AM and 9mg in the PM. tacrolimus IR (PROGRAF) 5 mg capsule Take 2 capsules by mouth every morning AND 1 capsule every evening. Take with 1mg capsules. Total daily dose is 10mg in the AM and 9mg in the PM.. alendronate (FOSAMAX) 70 mg tablet Take 1 tablet by mouth one time a week. In the morning with a full glass of water, on an empty stomach. Do not take anything else by mouth or lie down for the next 30 minutes. predniSONE (DELTASONE) 5 mg tablet Take 1 tablet by mouth once daily. PHOSPHOROUS 250 mg tablet TAKE 1 TABLET BY MOUTH EVERY DAY sertraline (ZOLOFT) 100 mg tablet Take 1 tablet by mouth once daily. sildenafil (VIAGRA) 100 mg tablet Take 1 tablet by mouth once daily as needed. Take 30-60 minutes before sexual activity. albuterol (PROVENTIL) 2.5 mg /3 mL (0.083 %) nebulizer solution USE 1 VIAL IN NEBULIZER 4 TIMES DAILY oseltamivir (TAMIFLU) 30 mg capsule Take 1 capsule by mouth two times a day. Tamiflu emergency Rx. Take upon onset of influenza symptoms and get tested as soon as possible. sulfamethoxazole-trimethoprim (BACTRIM DS) 800-160 mg per tablet TAKE 1 TABLET BY MOUTH EVERY TUESDAY,TUESDAY,AND TUESDAY mycophenolate mofetil (CELLCEPT) 250 mg capsule Take 3 capsules by mouth twice daily. magnesium oxide (MAG-OX) 400 mg (241.3 mg magnesium) tablet Take 1 tablet by mouth two times a day. pantoprazole DR (PROTONIX) 20 mg tablet Take 1 tablet by mouth daily at 6 am. atorvastatin (LIPITOR) 10 mg tablet Take 1 tablet by mouth daily at bedtime. azithromycin (ZITHROMAX) 250 mg tablet Take 1 tablet by mouth every Tuesday, Tuesday, and Tuesday. traMADol (ULTRAM) 50 mg tablet Take 1 tablet by mouth every 4 hours as needed for pain (for pain.). acetaminophen (TYLENOL) 325 mg tablet Take 2 tablets by mouth every 6 hours as needed for pain. (Patient not taking: Reported on 04/24/2024) No current facility-administered medications for this visit. NEW COMPLAINTS: Patient here for 3 month follow up visit. Patient saw pain mgmt on 04/30 for right knee pain. Pain interventional procedure recommended: Right knee genicular nerve block followed by RFA procedure if positive response but per patient this has not been done. He has only done cortisone shots. Patient presents today walking with cane and on RA. Patient denies coughing, sputum, wheezing, or SOB. Patient not doing any formal exercise due to right knee with arthritis/bone on bone. Currently wearing knee brace/wrap. Home Spirometry readings not monitored recently due to machine not working. PFTs today up 1% since last visit, FEV1 2.74. Patient sees his PCP in August to discuss going to sleepmedicine. Home BP 120-130s/70-80s and HR 80-90s. Today BP 138/82 and HR 94. Currently on no BP medications. Denies chest pain, palpitations, or BLE edema. Appetite is good. Eats 3 meals a day. Weight today is stable since last visit. Denies nausea, vomiting or ROMEO symptoms. Patient taking Protonix for reflux prevention. Moving bowels daily, occasional diarrhea. Tremors mild. Sleep is broken, sleeps in bed and then goes to the chair. Nocturia 2 times a night. Patient is doing well with medications and routine with his . ID: CMV: Donor: Negative / Recipient: Positive EBV: Donor: Negative / Recipient: Positive. Currently on Valcyte STOPPED AT 1 YEAR, Voriconazole 200 mg completed, Ambisome 25mg completed, and Bactrim DS every Tuesday, Tuesday and Tuesday. Taking Azithromycin 250 mg and Atorvastatin 10 mg daily. REVIEW OF SYSTEMS: GENERAL: No weight loss, malaise or fevers HEENT: Negative for frequent or significant headaches, No changes in hearing or vision, no nose bleeds or other nasal problems RESPIRATORY: Negative for cough, hemoptysis, wheezing, COPD, dyspnea or shortness of breath CARDIOVASCULAR: Negative for chest pain, leg swelling, hypertension, CHF or palpitations GI: No nausea, vomiting, or diarrhea : No history of dysuria, frequency or incontinence MUSCULOSKELETAL: knee pain SKIN: Negative for lesions, rash, and itching PSYCH: Negative for sleep disturbance, mood disorder and recent psychosocial stressors PATIENT TRANSPLANT KARNOFSKY INDEX AND LANSKY SCALE 80% - Normal activity with effort: some symptoms of disease. Patient Working? No, on medical disability since 2011 IMMUNIZATIONS: Hep A: 04/13/21; 07/22/21 (11/18/21) positive Hep B: 04/13/21; 07/22/21;02/24/22 (07/17/22) positive Flu vaccine: 11/18/21, 11/08/22, 11/10/23 RSV: 12/05/22 Prevnar 20: 07/22/21 COVID 19 vaccine - Moderna ( 12/12/2020, 05/08/2020, 04/10/2020); 11/08/21, 11/08/22, 11/10/23 Shingles: 04/19/2019, 11/16/2018 PPD/TB Quant: 04/13/21 Negative Tetanus booster: 04/13/21 RSV: 12/05/22 HEALTH MAINTENANCE: PSA: 02/24/22 0.18, 11/10/23 0.44 01/19/24 0.30 Dermatology - 11/15/22 frozen spots on top of head, and back, 05/2024 excision on left wrist COLONOSCOPY: 01/30/13 ([facility]) Rectal mucosa normal. Grade 1 internal hemorrhoids. Ileum normal, mucosal and submucosal vascular patter throughout the colon was normal. No polyp or mass identified, no inflammatory changes. 07/18/23 1 polyp removed BONE DENSITY: 01/19/24 IMPRESSION: THE LOWEST T-SCORE IS -1.6 IN THE RIGHT AND LEFT HIPS 1) DIAGNOSIS (based on BMD alone): OSTEOPENIA ENDO CONSULT: 04/24/24 scheduled 10/25/24 - Continue Fosamax once weekly, taken first thing in the morning on an empty stomach with water, followed by a 30-minute wait before eating or drinking. - Repeat bmd on same machine as prior around 01/2025. - Follow-up in 6 months, either virtually or in person. - Ordered serum vitamin D level to be added to today's blood work - Ordered additional laboratory tests to delineate the source of elevated alkaline phosphatase. - Follow-up in 6 months, either virtually or in person POST-TRANSPLANT GERD STUDIES: ESOPHAGRAM - 11/12/22 IMPRESSION: NORMAL ESOPHAGEAL EMPTYING. ESOPHAGEAL MANOMETRY- 08/16/22 Impressions EGJOO with spasm and hypercontractile esophagus, consistent with type III achalasia. Correlate clinically with timed barium esophagram, EGD, and symptoms of dysphagia. Spastic segment is 14 cm above the LES. pH PROBE- 08/25/22 Interpretations Normal study OFF PPI therapy with acid exposure time of 0.1%. Symptom association was negative to cough. GASTRIC EMPTYING- 08/19/22 IMPRESSION: NORMAL RATE OF GASTRIC EMPTYING OF SOLID MEAL PRE-TRANSPLANT GERD STUDIES: ESOPHAGEAL MONOMETRY: 07/22/21 Interpretation / Findings LES: Normal resting pressure, complete relaxation Body of the esophagus (supine): --7 swallows with normal peirstalsis --3 swallows with hypertensive peristalsis PH PROBE: 07/22/21 Normal study. GASTRIC EMPTYIN07/23/21 NORMAL RATE OF GASTRIC EMPTYING OF SOLID MEAL. PULMONARY FUNCTION TESTING: Date 07/17/24 FVC 3.32 2.93 3.93 4.94 84 -1.00 FEV1 2.74 2.20 3.00 3.75 91 -0.55 [id number] 2.45 1.11 2.48 4.40 98 -0.04 ExpiredTime 4.85 Date 04/24/24 FVC (L) 3.93 2.93 4.95 3.34 85 FEV1 (L) 3.01 2.21 3.76 2.73 90 MIS43-37 (L/sec) 2.49 1.12 4.41 2.34 93 Time (sec) 4.80 Date 01/19/24 FVC (L) 3.29 2.94 3.94 4.96 83 FEV1 (L) 2.69 2.21 3.02 3.77 89 YMR55-94 (L/sec) 2.44 1.13 2.51 4.43 97 Time (sec) 5.07 Date 11/10/23 FVC (L) 3.21 2.95 3.95 4.96 81 FEV1 (L) 2.69 2.22 3.02 3.78 89 AVU37-89 (L/sec) 2.52 1.14 2.52 4.44 100 Time (sec) 4.21 FVC (L) 3.28 2.95 3.95 4.97 82 Date 07/21/23 FVC (L) 3.28 2.95 3.95 4.97 82 FEV1 (L) 2.92 2.23 3.03 3.79 96 FIVC (L) 3.06 TLQ54-52 (L/sec) 3.49 1.15 2.53 4.46 137 Time (sec) 3.32 Date 04/20/23 FVC (L) 3.10 2.96 3.96 4.98 78 FEV1 (L) 2.86 2.23 3.04 3.80 94 RNZ40-65 (L/sec) 3.26 1.16 2.55 4.47 127 Time (sec) 2.78 Date 01/19/23 <-- Reviewed by Dr. Magallanes and discussed with patient FVC (L) 2.93 2.96 3.97 4.99 73 FEV1 (L) 2.73 2.24 3.05 3.81 89 WUR84-06 (L/sec) 3.41 1.17 2.56 4.49 133 Time (sec) 3.07 Date 11/29/22 FVC (L) 2.89 2.97 3.97 4.99 72 FEV1 (L) 2.67 2.24 3.05 3.81 87 UMV45-23 (L/sec) 3.12 1.17 2.57 4.50 121 Time (sec) 2.91 Date 10/21/22 FVC (L) 2.80 3.05 4.09 5.14 68 FEV1 (L) 2.70 2.30 3.13 3.91 86 URR21-30 (L/sec) 4.53 1.20 2.62 4.58 173 Time (sec) 2.05 Date 10/04/22 FVC 2.85 3.06 4.09 5.14 69 FEV1 2.70 2.30 3.13 3.91 86 FWA56-05 4.59 1.20 2.62 4.59 175 Time 3.21 Date 09/01/22 FVC (L) 2.50 3.06 4.09 5.14 61 FEV1 (L) 2.37 2.31 3.14 3.92 75 WEJ28-85 (L/sec) 4.02 1.20 2.62 4.59 153 Time (sec) 2.18 Date [id number] FVC (L) 2.26 3.06 4.09 5.14 55 FEV1 (L) 2.19 2.31 3.14 3.92 69 YWO85-26 (L/sec) 5.58 1.20 2.62 4.59 212 Time (sec) 1.90 Date 08/18/22 FVC (L) 2.23 3.06 4.09 5.14 54 FEV1 (L) 2.11 2.31 3.14 3.92 67 AAC57-77 (L/sec) 3.40 1.20 2.63 4.59 129 Time (sec) 2.35 Date: 08/11/22 FVC (L) 2.31 3.06 4.09 5.14 56 FEV1 (L) 1.95 2.31 3.14 3.92 62 HZG80-36 (L/sec) 1.83 1.21 2.63 4.60 69 Time (sec) 4.59 Date: 06/02/22 Pre-Transplant FVC (L) 2.76 3.26 4.34 5.44 63 FEV1 (L) 0.81 2.45 3.32 4.14 24 ZAK75-78 (L/sec) 0.24 1.21 2.64 4.61 9 Time (sec) 14.94 PORTIONS OF THIS NOTE WERE TAKEN FROM NOTE DATED 04/24/24. ALL THE INFORMATION BY THE RN / 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 MANAGER HAS BEEN CONFIRMED, REVIEWED AND VERIFIED BY ME. CXR 07/17/24 <-- Reviewed by Dr. Magallanes and discussed with patient No interval change No results for input(s): FK506 in the last 168 hours. PHYSICAL EXAMINATION: There were no vitals taken for this visit. General appearance: Well appearing, alert, in no acute distress, well-hydrated, well nourished. andMorbidly obese Skin: Skin color, texture, turgor normal, no suspicious rashes or lesions Head: Normocephalic, no masses, lesions, tenderness or abnormalities Eyes: Anicteric sclera. Pupils are equally round and reactive to light. Extraocular movements are intact. Ears: External ears normal, canals clear Nose/Sinuses: Nares normal, septum midline, mucosa normal, no drainage or sinus tenderness Oropharynx: Lips, mucosa, and tongue normal, teeth and gums normal, oropharynx normal Neck: Supple, no adenopathy; thyroid symmetric, normal size, no bruits Back: Normal exam Lungs: Lungs clear to auscultation. No wheezing, rhonchi, rales. Heart: RRR without murmur, gallop, or rubs. No ectopy Abdomen: Normal abdominal exam, Abdomen soft, non-tender. Bowel sounds normal. No masses, organomegaly Extremities: No deformities, edema, skin discoloration, clubbing or cyanosis. Good capillary refill. Musculoskeletal: No joint swelling, deformity, or tenderness Peripheral pulses: Normal Neuro: Gait normal. Reflexes normal and symmetric. Sensation grossly intact. 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 Encounter for Monitoring Tacrolimus Therapy Aftercare Following Organ Transplant Essential Hypertension Hyperlipidemia Gastroesophageal Reflux Disease Without Esophagitis Steroid-Induced Osteopenia PLAN OF CARE Brief staff summary: Since last visit, lung function numbers are similar, imaging is nothing new, and labs are in process Will need PSG locally # Encounter for aftercare following bilateral 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/22 for COPD - Lung allograft function stable - Continue prednisone 5 mg daily with no change today - Continue Cellcept 750 mg twice daily with no change today - Continue Tacrolimus 9 mg in the AM and 8 mg in the evening - awaiting trough level today to guide possible dose adjustment for goal trough of 9-12 Current prophylaxes falling under the umbrella of aftercare following lung transplant # Antiviral CMV D-/R+ - completed # Pneumocystis Prophylaxis - continue Bactrim on //, actively needed and prescribed by me for prophylaxis # Fungal Prophylaxis - completed # Chronic rejection Prophylaxis - continue azithromycin actively needed and prescribed by me for prophylaxis # Cardiovascular Status - Monitor home BP - Active current and chronic mixed hyperlipidemia with LDL goal <100 managed by me with atorvastatin # Gastrointestinal Status - Active current and chronic gastroesophageal reflux disease without esophagitis managed by me with proton pump inhibition # Endocrine/Bone Status - Active current and chronic steroid induced osteoporosis managed by me with vitamin D, Calcium - Care collaborated with me here at [facility] with Endocrine Bone [facility] and Diabetes Adult [facility] groups # Renal Status - Active current and chronic stage 3a renal failure with Estimated Creatinine Clearance: 54.2 mL/min (A) (based on SCr of 1.67 mg/dL (H)). - Based on today's GFR, all renally dosed medications and renal interactions have been accounted for and medications adjusted - Electrolytes have been reviewed, specifics such as HYPERkalemia have been addressed with the coordinator and patient # Hematology/Oncology Status - Active monitoring of drug induced cytopenias/cellular aplasias, medications addressed/adjusted today - Coagulopathy - no - Age-appropriate cancer screening - yes # MSK - right knee pain - safe to undergo eventual knee replacement surgery, still having injections locally - foot pain - decrease tramadol to 50 mg q 8 hrs PRN pain During this patient visit I spent 45 minutes in the visit, with more than 50% of the total dhkg-kp-pdee time of the visit in counseling / coordination of care. More specifically we discussed the patient's chest x-ray, today's lab results - most importantly immunosuppression levels and have made relevant adjustments to maintain health, wellness and stabilitypost transplant. We have coordinated with patient and consultants all follow up visits. Follow Up: 3 months with routine labs, imaging, and spirometry Osbaldo Magallanes MD Staff Physician [facility], Respiratory [place] [facility] [address], [address] [place], [place] [id number] documented in this encounterCommunity [facility] Hospital06-10-2025 History of Present illness Narrative* Shira Holloway RT(R) - 07/17/2024 7:00 AM EDT Radiology Service Progress Note PATIENT NAME: Belgica Angelo DATE OF SERVICE: July 17, 2024 TIME: 7:34 AM PATIENT IDENTITY VERIFICATION COMPLETED USING TWO (2) IDENTIFIERS: Name and Date of confirmedby patient verbally. FALL SCREENING: Has the patient had 2 falls in the last year or 1 fall with injury or currently using an Ambulatory Assistive Device (Walker, Cane, Wheelchair, Crutches, etc.)? No PATIENT GENDER DATA: Assigned male at PATIENT RELEVANT IMPLANT DATA REVIEWED: Not Applicable PATIENT PRESENTS WITH AN IMPLANTABLE OR ATTACHED CURATOR NATURAL HISTORY MUSEUM: No RADIOLOGY DEPARTMENT: General X-ray: Exam(s) Completed: Chest X-Ray PERIPHERAL IV DATA: Not applicable SIGNED BY: RT Alyce(R) July 17, 2024 7:34 AM documented in this encounterCommunity [facility] Hospital05-28-2025 Telephone encounter Note * Telephone Encounter - Ina Palacios RN - 07/04/2024 12:03 PM EDT Labs reviewed with Dr. Magallanes. Patient directed to take 10mg every morning at 8am and 9mg every evening at 8pm and have labs drawn on 07/17 The following approved medication requests have been transmitted electronically. Requested Prescriptions Pending Prescriptions Disp Refills tacrolimus IR (PROGRAF) 1 mg capsule 360 capsule 3 Sig: Take 4 capsules by mouth every evening. Take with 5mg capsules. Total daily dose is 10mg in the AM and 9mg in the PM. tacrolimus IR (PROGRAF) 5 mg capsule 270 capsule 3 Sig: Take 2 capsules by mouth every morning AND 1 capsule every evening. Take with 1mg capsules. Total daily dose is 10mg in the AM and 9mg in the PM.. Ina Palacios RN [facility]05-28-2025 Miscellaneous Notes* Telephone Encounter - Ina Palacios RN - 07/04/2024 12:03 PM EDT Labs reviewed with Dr. Magallanes. Patient directed to take 10mg every morning at 8am and 9mg every evening at 8pm and have labs drawn on 07/17 The following approved medication requests have been transmitted electronically. Requested Prescriptions Pending Prescriptions Disp Refills tacrolimus IR (PROGRAF) 1 mg capsule 360 capsule 3 Sig: Take 4 capsules by mouth every evening. Take with 5mg capsules. Total daily dose is 10mg in the AM and 9mg in the PM. tacrolimus IR (PROGRAF) 5 mg capsule 270 capsule 3 Sig: Take 2 capsules by mouth every morning AND 1 capsule every evening. Take with 1mg capsules. Total daily dose is 10mg in the AM and 9mg in the PM.. Ina Palacios RN * Telephone Encounter - Herber Phillip RPh - 07/04/2024 11:56 AM EDT Tacrolimus level was therapeutic at 8.2 (goal 9-12). Current dose is 9/9. Would recommend increasing dose to 10/9. Recheck labs in 2 weeks. Herber Phillip RPh * Telephone Encounter - Magda Concepcion - 07/04/2024 8:17 AM EDT Transplants: 07/20/2022 (Lung) Lab Results Component Value Date FK506 8.2 07/03/2024 CREAT 1.67 (H) 07/03/2024 K 4.9 07/03/2024 WBC 6.75 07/03/2024 ABSNEUT 4.52 07/03/2024 CMVCPY Not detected 07/03/2024 Estimated Creatinine Clearance: 54.2 mL/min (A) (based on SCr of 1.67 mg/dL (H)). tacrolimus IR (PROGRAF) 1 mg capsule 240 capsule Sig: Take 4 capsules by mouth every morning AND 4 capsules every evening. Take with 5mg capsules. Total daily dose is 9mg in the AM and 9mg in the PM.. tacrolimus IR (PROGRAF) 5 mg capsule Sig: Take 1 capsule by mouth two times a day. Take with 1mg capsules. Total daily dose is 9mg in the AM and 9mg in the PM. documented in this encounterCommunity [facility] Hospital05-28-2025 Telephone encounter Note * Telephone Encounter - Herber Phillip RPh - 07/04/2024 11:56 AM EDT Tacrolimus level was therapeutic at 8.2 (goal 9-12). Current dose is 9/9. Would recommend increasing dose to 10/9. Recheck labs in 2 weeks. Herber Phillip RPh [facility] Work Phone: 1(858) 613-433005-28-2025 Telephone encounter Note* Telephone Encounter - Magda Concepcion - 07/04/2024 8:17 AM EDT Transplants: 07/20/2022 (Lung) Lab Results Component Value Date FK506 8.2 07/03/2024 CREAT 1.67 (H) 07/03/2024 K 4.9 07/03/2024 WBC 6.75 07/03/2024 ABSNEUT 4.52 07/03/2024 CMVCPY Not detected 07/03/2024 Estimated Creatinine Clearance: 54.2 mL/min (A) (based on SCr of 1.67 mg/dL (H)). tacrolimus IR (PROGRAF) 1 mg capsule 240 capsule Sig: Take 4 capsules by mouth every morning AND 4 capsules every evening. Take with 5mg capsules. Total daily dose is 9mg in the AM and 9mg in the PM.. tacrolimus IR (PROGRAF) 5 mg capsule Sig: Take 1 capsule by mouth two times a day. Take with 1mg capsules. Total daily dose is 9mg in the AM and 9mg in the PM. [facility]05-13-2025 Telephone encounter Note* Telephone Encounter - Estefanía Bonilla RN - 06/19/2024 12:45 PM EDT Labs reviewed with [facility]. Patient directed to take tacrolimus 9mg every morning at 8am and 9mgevery evening at 8pm and have labs drawn on 07/03. Spoke with patient The following approved medication requests have been transmitted electronically. Requested Prescriptions Pending Prescriptions Disp Refills tacrolimus IR (PROGRAF) 1 mg capsule 240 capsule 11 Sig: Take 4 capsules by mouth every morning AND 4 capsules every evening. Take with 5mg capsules. Total daily dose is 9mg in the AM and 9mg in the PM.. Estefanía Bonilla RN [facility]05-13-2025 Miscellaneous Notes* Telephone Encounter - Estefanía Bonilla RN - 06/19/2024 12:45 PM EDT Labs reviewed with [facility]. Patient directed to take tacrolimus 9mg every morning at 8am and 9mgevery evening at 8pm and have labs drawn on 07/03. Spoke with patient The following approved medication requests have been transmitted electronically. Requested Prescriptions Pending Prescriptions Disp Refills tacrolimus IR (PROGRAF) 1 mg capsule 240 capsule 11 Sig: Take 4 capsules by mouth every morning AND 4 capsules every evening. Take with 5mg capsules. Total daily dose is 9mg in the AM and 9mg in the PM.. Estefanía Bonilla RN * Telephone Encounter - Salena Christy RP - 06/19/2024 10:22 AM EDT Tacrolimus level was subtherapeutic at 7.7 (goal 9-12). Current dose is 9/8. Would recommend increasing dose to 9/9 . Recheck labs in 2 weeks. Salena Christy PharmD PGY2 Solid Organ Transplant [employer] Phone/pager: [phone] * Telephone Encounter - Magda Concepcion - 06/19/2024 9:11 AM EDT Transplants: 07/20/2022 (Lung) Lab Results Component Value Date FK506 7.7 06/18/2024 CREAT 1.38 (H) 06/18/2024 K 4.7 06/18/2024 WBC 7.31 06/18/2024 ABSNEUT 5.07 06/18/2024 CMVCPY Not detected 06/18/2024 Estimated Creatinine Clearance: 65.6 mL/min (A) (based on SCr of 1.38 mg/dL (H)). tacrolimus IR (PROGRAF) 5 mg capsule Sig: Take 1 capsule by mouth two times a day. Take with 1mg capsules. Total daily dose is 9mg in the AM and 8mg in the PM. tacrolimus IR (PROGRAF) 1 mg capsule Sig: Take 4 capsules by mouth every morning AND 3 capsules every evening. Take with 5mg capsules. Total daily dose is 9mg in the AM and 8mg in the PM.. documented in this encounterCommunity [facility] Hospital05-13-2025 Telephone encounter Note * Telephone Encounter - Salena Christy RPh - 06/19/2024 10:22 AM EDT Tacrolimus level was subtherapeutic at 7.7 (goal 9-12). Current dose is 9/8. Would recommend increasing dose to 9/9 . Recheck labs in 2 weeks. Salena Christy PharmD PGY2 Solid Organ Transplant [employer] Phone/pager: [phone] [facility] Telephone encounter Note* Telephone Encounter - Magda Concepcion - 06/19/2024 9:11 AM EDT Transplants: 07/20/2022 (Lung) Lab Results Component Value Date FK506 7.7 06/18/2024 CREAT 1.38 (H) 06/18/2024 K 4.7 06/18/2024 WBC 7.31 06/18/2024 ABSNEUT 5.07 06/18/2024 CMVCPY Not detected 06/18/2024 Estimated Creatinine Clearance: 65.6 mL/min (A) (based on SCr of 1.38 mg/dL (H)). tacrolimus IR (PROGRAF) 5 mg capsule Sig: Take 1 capsule by mouth two times a day. Take with 1mg capsules. Total daily dose is 9mg in the AM and 8mg in the PM. tacrolimus IR (PROGRAF) 1 mg capsule Sig: Take 4 capsules by mouth every morning AND 3 capsules every evening. Take with 5mg capsules. Total daily dose is 9mg in the AM and 8mg in the PM.. [facility] History of Present illness Narrative* Deedee Chance MA - 06/11/2024 4:36 PM EDT POPULATION HEALTH NAVIGATION OUTREACH Action/FYI Patient returned call and scheduled AWV with BP control and with HCC gap closure. Patient states hehad colonoscopy at in [place]. Declined regular follow up Reason for Outreach Returned Call/MyChart Patient Contacted: Spoke to patient/parent/or legal guardian Patient identified by name and date of : Yes Returned call/MyChart actions taken: Patient scheduled/pended orders: Medicare Annual Wellness Visit Controlling Blood Pressure 07/17/2024 in [facility]M MA[facility] with OSBALDO MAGALLANES - POST LUNG TXP 07/17/2024 in PULM MAIN LAB with PULM FCT LAB MAIN 1 - POST LUNG TXP 07/17/2024 in RADIO GENERAL MAIN A21 with XR CHEST MAIN A21 - POST LUNG TXP 07/17/2024 in LAB MAIN A15 DRAW STATION with LAB A15 MAIN - POST LUNG TXP 09/03/2024 in [facility] with KESHAV PHILLIPS - Annual WEllness Exam, Address HCC gaps 10/25/2024 in BONE MAIN with ASHLEY JIN - 6m f/u Navigation Signature: Deedee Chance MA June 11, 2024 4:36 PM * Deedee Chance MA - 06/11/2024 3:53 PM EDT POPULATION HEALTH NAVIGATION OUTREACH Action/FYI Contacted patient to schedule HCC care gaps and health maintenance. 1st attempt: Left message with my direct number 2nd attempt: My Chart message sent Topic Due (Y or N) Comments Annual Wellness Exam Yes PCP Follow up Yes Colorectal Cancer Screening Yes Due 07/2024 A1C No HTN/Controlling BP Yes HCC Yes Updated appointment notes No Reason for Outreach Care Gap/HCC or Scheduling Wellness Visits Care Gaps due: Medicare Annual Wellness Visit Follow-up Appointment Controlling Blood Pressure Colorectal Cancer Screening Patient Contacted: Unable or unnecessary to reach patient: Left message [employer] message sent HCC related Navigation Signature: Dedeee Chance MA June 11, 2024 3:53 PM documented in this encounterCommunity [facility] Hospital04-29-2025 Telephone encounter Note * Telephone Encounter - Estefanía Bonilla RN - 06/05/2024 8:31 AM EDT Labs reviewed with [facility]. Patient directed to take tacrolimus 9mg every morning at 8am and 8mgevery evening at 8pm and have labs drawn on 06/18. The following approved medication requests have been transmitted electronically. Requested Prescriptions Pending Prescriptions Disp Refills tacrolimus IR (PROGRAF) 1 mg capsule 630 capsule 3 Sig: Take 4 capsules by mouth every morning AND 3 capsules every evening. Take with 5mg capsules. Total daily dose is 9mg in the AM and 8mg in the PM.. Estefanía Bonilla RN [facility]04-29-2025 Miscellaneous Notes* Telephone Encounter - Estefanía Bonilla RN - 06/05/2024 8:31 AM EDT Labs reviewed with Justin Cm. Patient directed to take tacrolimus 9mg every morning at 8am and 8mgevery evening at 8pm and have labs drawn on 06/18. The following approved medication requests have been transmitted electronically. Requested Prescriptions Pending Prescriptions Disp Refills tacrolimus IR (PROGRAF) 1 mg capsule 630 capsule 3 Sig: Take 4 capsules by mouth every morning AND 3 capsules every evening. Take with 5mg capsules. Total daily dose is 9mg in the AM and 8mg in the PM.. Estefanía Bonilla RN * Telephone Encounter - Eileen Cm RPh - 06/05/2024 8:26 AM EDT Tacrolimus level was subtherapeutic at 7.9 (goal 9-12). Current dose is 8/8. Would recommend increasing dose to 9/8 . Recheck labs in 2 weeks. Eileen Cm RPh * Telephone Encounter - Magda Concepcion - 06/05/2024 8:13 AM EDT Transplants: 07/20/2022 (Lung) Lab Results Component Value Date FK506 7.9 06/04/2024 CREAT 1.46 (H) 06/04/2024 K 4.7 06/04/2024 WBC 6.61 06/04/2024 ABSNEUT 4.34 06/04/2024 CMVCPY Not detected 06/04/2024 Estimated Creatinine Clearance: 62 mL/min (A) (based on SCr of 1.46 mg/dL (H)). tacrolimus IR (PROGRAF) 1 mg capsule Sig: Take 3 capsules by mouth two times a day. Take with 5mg capsules. Total daily dose is 8mg in the AM and 8mg in the PM. tacrolimus IR (PROGRAF) 5 mg capsule Sig: Take 1 capsule by mouth two times a day. Take with 1mg capsules. Total daily dose is 8mg in the AM and 8mg in the PM. documented in this encounterCleveland [phone] Telephone encounter Note * Telephone Encounter - Eileen Cm RPh - 06/05/2024 8:26 AM EDT Tacrolimus level was subtherapeutic at 7.9 (goal 9-12). Current dose is 8/8. Would recommend increasing dose to 9/8 . Recheck labs in 2 weeks. Eileen Cm RPh [facility] Work Phone: [phone] Telephone encounter Note* Telephone Encounter - Magda Concepcion - 06/05/2024 8:13 AM EDT Transplants: 07/20/2022 (Lung) Lab Results Component Value Date FK506 7.9 06/04/2024 CREAT 1.46 (H) 06/04/2024 K 4.7 06/04/2024 WBC 6.61 06/04/2024 ABSNEUT 4.34 06/04/2024 CMVCPY Not detected 06/04/2024 Estimated Creatinine Clearance: 62 mL/min (A) (based on SCr of 1.46 mg/dL (H)). tacrolimus IR (PROGRAF) 1 mg capsule Sig: Take 3 capsules by mouth two times a day. Take with 5mg capsules. Total daily dose is 8mg in the AM and 8mg in the PM. tacrolimus IR (PROGRAF) 5 mg capsule Sig: Take 1 capsule by mouth two times a day. Take with 1mg capsules. Total daily dose is 8mg in the AM and 8mg in the PM. [facility]04-03-2025 Note* Addendum Note - Grant Ashley RPh - 05/10/2024 1:36 PM EDTAddended by: GRANT ASHLEY on: 05/10/2024 01:36 PM Modules accepted: Orders [facility]04-03-2025 Telephone encounter Note* Telephone Encounter - Grant Ashley RP - 05/10/2024 1:36 PM EDT Keven, We need new rxs due to medicare guidelines. . Patient requests refill of: Requested Prescriptions Pending Prescriptions Disp Refills tacrolimus IR (PROGRAF) 5 mg capsule 60 capsule 11 Sig: Take 1 capsule by mouth two times a day. Take with 1mg capsules. Total daily dose is 8mg in the AM and 8mg in the PM. tacrolimus IR (PROGRAF) 1 mg capsule 180 capsule 11 Sig: Take 3 capsules by mouth two times a day. Take with 5mg capsules. Total daily dose is 8mg in the AM and 8mg in the PM. Signed Prescriptions Disp Refills tacrolimus IR (PROGRAF) 1 mg capsule 180 capsule 11 Sig: Take 3 capsules by mouth two times a day. Authorizing Provider: OSBALDO MAGALLANES If approved, please e-script the attached order to [facility]. Thank you, Grant Ashley [facility] [phone] [facility]04-03-2025 Miscellaneous Notes* Addendum Note - Grant Ashley RPh - 05/10/2024 1:36 PM EDTAddended by: GRANT ASHLEY on: 05/10/2024 01:36 PM Modules accepted: Orders * Telephone Encounter - Grant Ashley RP - 05/10/2024 1:36 PM EDT Keven, We need new rxs due to medicare guidelines. . Patient requests refill of: Requested Prescriptions Pending Prescriptions Disp Refills tacrolimus IR (PROGRAF) 5 mg capsule 60 capsule 11 Sig: Take 1 capsule by mouth two times a day. Take with 1mg capsules. Total daily dose is 8mg in the AM and 8mg in the PM. tacrolimus IR (PROGRAF) 1 mg capsule 180 capsule 11 Sig: Take 3 capsules by mouth two times a day. Take with 5mg capsules. Total daily dose is 8mg in the AM and 8mg in the PM. Signed Prescriptions Disp Refills tacrolimus IR (PROGRAF) 1 mg capsule 180 capsule 11 Sig: Take 3 capsules by mouth two times a day. Authorizing Provider: OSBALDO MAGALLANES If approved, please e-script the attached order to [facility]. Thank you, Grant Ashley [facility] [phone] * Telephone Encounter - Grant Ashley [facility] - 05/10/2024 1:29 PM EDT Patient requests refill of: Requested Prescriptions Pending Prescriptions Disp Refills tacrolimus IR (PROGRAF) 1 mg capsule 180 capsule 11 Sig: Take 3 capsules by mouth two times a day. If approved, please e-script the attached order to [facility]. Thank you, Grant Ashley [facility] [phone] documented in this encounterCommunity [facility] Hospital04-03-2025 Telephone encounter Note * Telephone Encounter - Grant Ashley [facility] - 05/10/2024 1:29 PM EDT Patient requests refill of: Requested Prescriptions Pending Prescriptions Disp Refills tacrolimus IR (PROGRAF) 1 mg capsule 180 capsule 11 Sig: Take 3 capsules by mouth two times a day. If approved, please e-script the attached order to [facility]. Thank you, Grant Ashley [facility] [phone] [facility]04-01-2025 Telephone encounter Note* Telephone Encounter - Herber Phillip [facility] - 05/08/2024 2:56 PM EDT Tacrolimus level was therapeutic at 8.5 (goal 9-12). Current dose is 3.5/3.5. Would recommend no change to current dose. Recheck labs in 1 month. Herber Phillip RPh [facility] Work Phone: 1([phone]) 282-904904-01-2025 Miscellaneous Notes* Telephone Encounter - Herber Phillip RPh - 05/08/2024 2:56 PM EDT Tacrolimus level was therapeutic at 8.5 (goal 9-12). Current dose is 3.5/3.5. Would recommend no change to current dose. Recheck labs in 1 month. Herber Phillip RPh * Telephone Encounter - Magda Concepcion - 05/08/2024 2:54 PM EDT Transplants: 07/20/2022 (Lung) Lab Results Component Value Date FK506 8.5 05/07/2024 CREAT 1.48 (H) 05/07/2024 K 4.8 05/07/2024 WBC 7.00 05/07/2024 ABSNEUT 4.79 05/07/2024 Estimated Creatinine Clearance: 61.2 mL/min (A) (based on SCr of 1.48 mg/dL (H)). tacrolimus IR (PROGRAF) 5 mg capsule Sig: Take 1 capsule by mouth two times a day. tacrolimus IR (PROGRAF) 1 mg capsule Sig: Take 3 capsules by mouth two times a day. documented in this encounterCommunity [facility] Hospital04-01-2025 Telephone encounter Note * Telephone Encounter - Magda Concepcion - 05/08/2024 2:54 PM EDT Transplants: 07/20/2022 (Lung) Lab Results Component Value Date FK506 8.5 05/07/2024 CREAT 1.48 (H) 05/07/2024 K 4.8 05/07/2024 WBC 7.00 05/07/2024 ABSNEUT 4.79 05/07/2024 Estimated Creatinine Clearance: 61.2 mL/min (A) (based on SCr of 1.48 mg/dL (H)). tacrolimus IR (PROGRAF) 5 mg capsule Sig: Take 1 capsule by mouth two times a day. tacrolimus IR (PROGRAF) 1 mg capsule Sig: Take 3 capsules by mouth two times a day. [facility]03-24-[facility] History of Present illness Narrative* Conchita Martel MD - 04/30/2024 12:47 PM EDT [facility] Date: April 30, 2024 - 12:47 PM Belgica Angelo is seen in consultation requested by Dr. Timothy Best V for an opinion regarding right knee pain. My final recommendations will be communicated back to the requesting physician by wayof shared medical record or via US mail. Chief Complaint: right knee pain SUBJECTIVE: Belgica Angelo, is a 68 year old male who presents with right knee pain. The pain started years ago, with no known injury or trauma. The pain onset was gradual. The patient states that the current pain is persistent. His pain is located in the right knee and does not radiate.. // The pain is described as sore. The pain intensity is rated 5. The pain is exacerbated by walking, standing, and lying down and relieved by no known factors. Symptoms interfere with physical activity. Litigation: No. Worker's Compensation: No. Prior pain treatment has included: Injection(s): Gel injection with no relief. ALLERGIES Allergen Reactions Nsaids (Non-Steroid* Contraindication-Medical Surgical Patient states he is not allergic to Nsaids- caused upset stomach Penicillins GI Upset Patient states he is not allergic to penicillin- caused upset stomach Current Medications: Pain medications reviewed and reconciled in the medication list: Yes. Current Outpatient Medications Medication Sig alendronate (FOSAMAX) 70 mg tablet Take 1 tablet by mouth one time a week. In the morning with a full glass of water, on an empty stomach. Do not take anything else by mouth or lie down for the next 30 minutes. tacrolimus IR (PROGRAF) 5 mg capsule Take 1 capsule by mouth two times a day. tacrolimus IR (PROGRAF) 1 mg capsule Take 3 capsules by mouth two times a day. predniSONE (DELTASONE) 5 mg tablet Take 1 tablet by mouth once daily. PHOSPHOROUS 250 mg tablet TAKE 1 TABLET BY MOUTH EVERY DAY sertraline (ZOLOFT) 100 mg tablet Take 1 tablet by mouth once daily. sildenafil (VIAGRA) 100 mg tablet Take 1 tablet by mouth once daily as needed. Take 30-60 minutes before sexual activity. albuterol (PROVENTIL) 2.5 mg /3 mL (0.083 %) nebulizer solution USE 1 VIAL IN NEBULIZER 4 TIMES DAILY oseltamivir (TAMIFLU) 30 mg capsule Take 1 capsule by mouth two times a day. Tamiflu emergency Rx. Take upon onset of influenza symptoms and get tested as soon as possible. sulfamethoxazole-trimethoprim (BACTRIM DS) 800-160 mg per tablet TAKE 1 TABLET BY MOUTH EVERY TUESDAY,TUESDAY,AND TUESDAY mycophenolate mofetil (CELLCEPT) 250 mg capsule Take 3 capsules by mouth twice daily. magnesium oxide (MAG-OX) 400 mg (241.3 mg magnesium) tablet Take 1 tablet by mouth two times a day. pantoprazole DR (PROTONIX) 20 mg tablet Take 1 tablet by mouth daily at 6 am. atorvastatin (LIPITOR) 10 mg tablet Take 1 tablet by mouth daily at bedtime. azithromycin (ZITHROMAX) 250 mg tablet Take 1 tablet by mouth every Tuesday, Tuesday, and Tuesday. traMADol (ULTRAM) 50 mg tablet Take 1 tablet by mouth every 4 hours as needed for pain (for pain.). acetaminophen (TYLENOL) 325 mg tablet Take 2 tablets by mouth every 6 hours as needed for pain. (Patient not taking: Reported on 04/24/2024) No current facility-administered medications for this visit. PAST MEDICAL HISTORY Diagnosis Date Asthma Bronchiectasis (HCC) COPD (chronic obstructive pulmonary disease) ([facility]) Dependence on supplemental oxygen No longer neede post transplant Heterozygous alpha 1-antitrypsin deficiency (HCC) PiMZ Lung nodule Pain in joint, ankle and foot S/P lung transplant ([facility]) PAST SURGICAL HISTORY Procedure Laterality Date LUNG TRANSPLANT,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 PAST SURGICAL HISTORY OF 02/07/2011 Rt foot reconstruction REMV CATARACT EXTRACAP,INSERT LENS REMV CATARACT EXTRACAP,INSERT LENS Right 04/28/2023 [id number] +20.0 D RPR UMBILICAL HRNA 5 YRS/> REDUCIBLE 07/26/2012 Hernia repair, umbilical >5yr FAMILY HISTORY Problem Relation Age of Onset COPD Mother Heart disease Father Breast Cancer Sister No Known Problems Sister No Known Problems Sister COPD Brother COPD Brother Tuberculosis No Family History Social History: Alcohol Use: Never Tobacco Use: Types: Cigarettes Drug Use: Never Employer And Job Title: No employer specified (disability) Years Of Education Completed: Not specified Marital Status: with 1 child REVIEW OF SYSTEMS: Constitutional: (-) Fever (-) Night Sweats (-) Weight Gain (-) Weight Loss (-) Fatigue Cardiovascular: (-) Chest Pain (-) Palpitations (-) Lightheadedness (-) Swelling of Ankles (-) Hx Heart Surgery Respiratory: (-) Shortness of Breath (-) Cough (-) Wheezing (+) Snoring Gastrointestinal: (-) Incontinence (-) Abdominal Pain (-) Diarrhea (-) Constipation (-) Nausea/Vomiting (-) Heart Burn Endocrine: (-) Thyroid Disorder (-) Diabetes Hematologic: (-) Prolonged Bleeding (+) Easy Bruising Genitourinary: (-) Incontinence (+) Frequency - At night (-) Urinary Urgency Skin: (-) Rashes (-) Itching (-) Other Lesions Neurologic: (-) Headache (-) Double Vision (-) Confusion (-) Paralysis (-) Vertigo (-) Syncope Psychiatric: (-) Depression (-) Anxiety OARRS Report reviewed: Yes Narcotic Agreement reviewed and signed?: N/A Baseline Urine Toxicology obtained: N/A Urine Panel: No results found for: UQCANN, UQBNZL, PNS3ZAF, UQAMPH, UQMAMP, UQBUPRE, UQNORBUP, UQMTHD, UQEDDP, UQTRAM, UQDTRM, UQFNTL, UQNFTL, UQCODE, UQMORP, UQDCDN, UQHCOD, UQOXYC, UQHMOR, UQOXYM, UQCREA, UQPH, UQSPGR, UQOXID, UQSPQ The pain panel was N/A OBJECTIVE: Performed in conjunction with observation. The patient was alert and oriented x3. The patient was in no acute distress. Lungs: Clear, negative for dyspnea or distress. CVR: Negative for SOB or peripheral edema. Neck: Supple. The range of motion was intact. Back: Range of motion of the trunk was intact. Extremities: no reported edema or erythema. The range of motion of the right knee was slow but intact. Generalized tenderness in the medial aspect of the right knee. No evidence of erythema or edema. Motor: Negative focal deficits Sensory: Intact to light touch bilateral lower extremities to the level ankles Gait: Within normal limits Medical record and diagnostic tests reviewed for today's visit: The [facility] EMR was reviewed during thevisit ASSESSMENT: (M25.561, G89.29) Chronic pain of right knee (primary encounter diagnosis) (M17.11) Primary osteoarthritis of right knee Discussion: A discussion was entertained regarding multicomponent pain source. Discussed conservative options and focus on improvement of function and the concerns of ongoing or developing chronic pain. Discussed the rationale behind interventional approach and how it can facilitate improvement of pain but also diagnostic information that procedures provide. 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 PLAN: 1. X-ray of the right knee was reviewed with the patient. Findings were discussed. The patient is gone through intra-articular injections with overall minimal response. Recommended a trial of genicular nerve block. 2. Pain interventional procedure recommended: Right knee genicular nerve block followed by RFA procedure if positive response. The procedure including risks, benefits, options and personnel performing the procedure was discussed with the patient. The use of special equipment was reviewed. There are no contraindications to the procedure. The patient expressed understanding and agreed to proceed. 3. No new medication was prescribed. 4. Counseled patient regarding the importance of activity modification and exercise. 5. Follow up: 4 to 6 weeks postinjection The above plan and management options were discussed with patient. The patient is in agreement withthe above and verbalized understanding. I have discussed and confirmed the above treatment plan with the patient and I have reviewed the nurses notes and I am aware of the family/social history. I have confirmed ROS findings. Conchita Martel MD 1. This document has been created with the use of voice recognition technology. It may contain inaccuracies: (e.g. misspellings, inaccurate syntax or word sense) that have escaped review. 2. The nurse practitioner, nursing staff and medical assistants are a major part of YOUR TREATMENT TEAM and will be handling your phone calls and inquiries, if any. Unless explicitly told otherwise at the time of your office visit, your study results and ensuing treatment plans will be discussed during your follow- up appointment. If you do not have a follow-up appointment and wish to discuss any issues, please set up an appointment. 3. All of the office notes, study results, and other pertinent documentation generated as part of your evaluation will be available to you and to your Primary Care Physician (PCP). Use of this material to complete such forms will be at the discretion of your PCP/referring physician. April 30, 2024 cc: Timothy Best [address] [place] [address] Fax: Results of consultation to be transmitted via electronic medical record for those providers who practice within [facility] or with access to [facility] via [facility], or via letter. [facility] Telephone encounter Note * Telephone Encounter - Shira Escobar RN - 04/24/2024 4:42 PM EDT Labs reviewed with Dr. Magallanes. Patient instructed to decrease Prograf to 8 mg in the morning and 8 mg in the evening. Advised patient to have labs redrawn on 05/07. The following approved medication requests have been transmitted electronically. Requested Prescriptions Pending Prescriptions Disp Refills tacrolimus IR (PROGRAF) 5 mg capsule 60 capsule 11 Sig: Take 1 capsule by mouth two times a day. tacrolimus IR (PROGRAF) 1 mg capsule 180 capsule Sig: Take 3 capsules by mouth two times a day. Shira Escobar RN [facility]03[facility]25 Miscellaneous Notes* Telephone Encounter - Shira Escobar RN - 04/24/2024 4:42 PM EDT Labs reviewed with Dr. Magallanes. Patient instructed to decrease Prograf to 8 mg in the morning and 8 mg in the evening. Advised patient to have labs redrawn on 05/07. The following approved medication requests have been transmitted electronically. Requested Prescriptions Pending Prescriptions Disp Refills tacrolimus IR (PROGRAF) 5 mg capsule 60 capsule 11 Sig: Take 1 capsule by mouth two times a day. tacrolimus IR (PROGRAF) 1 mg capsule 180 capsule Sig: Take 3 capsules by mouth two times a day. Shira Escobar RN documented in [facility] History of Present illness Narrative* Osbaldo Magallanes MD - 04/24/2024 11:45 AM EDT DI Angelo is a 68 year old male s/p Bilateral Sequential Lung Transplant with Dr. Juarez on 07/20/2022 for COPD / A1AT, here for follow up. Donor with Risk Factor Labs: none 1-2 Mo 08/19/22 DUE: HBV viral DNA: not detected HCV Quant RNA: not detected HIV RNA viral load: 10/04/22 DOS 07/19/22: HBV viral DNA: not detected, HepBsAb: positive, HCV Quant RNA: not detected, HIV Ag/Ab: nonreactive Pre- Tx. 07/17/22: HBV viral DNA: not detected, HepBsAb: positive, HCV Quant RNA: not detected, HepCab: , HIV Ag/Ab: nonreactive MEDICAL HISTORY: COPD Bronchiectasis A1AT on augmentation therapy (proteinase inhibitor once/week) lung nodules neuropathy right foot SURGICAL HISTORY right foot hernia repair EXPLANT PATHOLOGY: FINAL DIAGNOSIS A-B. Left and right lungs, explant pneumonectomies: - Centrilobular emphysema. - Patchy organizing pneumonia with focal giant cells reaction. - Benign reactive hilar lymph nodes. C-D. Left and right donor lungs, upper lobes, wedge resections: - Small arteries with early, organizing thrombi. - No specific pathologic diagnosis. CFF/mm/07/23/2022 POST TRANSPLANT EVENTS: CMV: Donor: Negative / Recipient: Positive EBV: Donor: Negative / Recipient: Positive PGD Scores: Score T 0 = Grade 1 Score T12 = Grade 1 Score T24 = Grade 1 Score T48 = Grade 1 Score T72 = Grade 1 07/20/22 Transplanted 07/21: extubated 07/22: ID consult +streptococcus on recipient swab; transferred to [facility] 07/25: Pain, hallucinations improved. Dizzy, hypotensive w/ BP 80s/50s, high chest tube output, 500mL NSB given. 07/26: Orthostatic hypotension, 80s/50s. IVF. Repeat lactate 2.8 after 1 L IV NS. Started on midodrine. 07/28: Pain improved, continues on epidural. Persistent orthostasis, start mestinon. EKG w/ stable QTc, start SOPHIA ppx. 07/29: Hypotensive (BP 63/37), dizzy while sitting up in chair, CMET activated, BP stabilized to 117/53 w/ 500mL NSB & holding epidural. Increase mestinon dosing. Conferred w/ APMS - transition to oral pain regimen. Epidural removed. 07/30: Give dose of IVIG for hypogam. 07/31: Improvement of pain with blocks. IVIG stopped overnight due to facial flushing and redness on arm. Improvement of leukocytosis; remains on IV Zosyn. 08/02: Left large bore CT removed. Transitioned to oral pain regimen. 08/03: Pain site of former L large bore CT. CXR w/ 2 tiny pneumothoraces on right. Placed blakes x suction. 08/06: Deemed safe for discharge. Desaturation study performed- did not qualify for oxygen. Discharged with bilateral ana drains to bulb suction with follow up appointment with CTS requested. Tacrolimus level was 12.1 on 3mg in AM and 2.5mg in PM. Scheduled for lung transplant clinic on 08/11/22 with 3 week surveillance bronchoscopy scheduled for 08/13/22. BRONCHOSCOPY: 11/18/23: A0B0 1 year 07/21/23 A0B0 + for one colony of Aspergillus niger 9 mo: 04/20/23 A0B0 6 mo: 01/19/23: AXBX 3 mo: 10/21/22: A0B0 6 wk: 09/03/22: A0B0 3 wk: 08/13/22: A0B0 DONOR SPECIFIC ANTIBODY (DSA): 04/24/24: PENDING 01/19/24: No Donor specific HLA antibody was detected 07/21/23: No Donor specific HLA antibody was detected in the 07/21/2023 Post-Tx sample. Previous DSA to allelic DQ2 (DQB1*02:01, DQA*05:01) declined to negative. 04/20/23: Donor specific HLA antibody to allelic DQ2 (DQB1*02:01, DQA*05:01) was detected. MFI values appear to be declining. 01/11/23: Donor specific HLA antibody to DQ2 was detected in the 01/10/2023 Post-Tx sample. MFI values appear to be stable, possibly increasing. 11/08/22: Donor specific HLA antibody to allelic DQ2 (DQB1*02:01, DQA*05:01) was detected in the 11/08/2022 Post-Tx sample. MFI values appear to be increasing. 10/21/22: Donor specific HLA antibody to allelic DQ2 (DQB1*02:01, DQA1*05:01) was detected in the 10/21/2022 Post-Tx sample. MFI values appear to be declining over time. 10/04/22: Donor specific HLA antibody to allelic DQ2 (DQB1*02:01, DQA1*05:01) was detected in the 10/04/2022 Post-Tx sample. MFI values appear to be stable. 09/01/22: Donor specific HLA antibody to allelic DQ2 (DQB1*02:01, DQA1*05:01) was detected 08/11/22: No Donor specific HLA antibody was detected 07/30/22: No Donor specific HLA antibody was detected ALLERGIES: Allergen Reactions Nsaids (Non-Steroid* Contraindication-Medical Surgical Penicillins Upset stomach CURRENT MEDICATIONS: Current Outpatient Medications Medication Sig predniSONE (DELTASONE) 5 mg tablet Take 1 tablet by mouth once daily. alendronate (FOSAMAX) 70 mg tablet Take 1 tablet by mouth one time a week. In the morning with a full glass of water, on an empty stomach. Do not take anything else by mouth or lie down for the next 30 minutes. PHOSPHOROUS 250 mg tablet TAKE 1 TABLET BY MOUTH EVERY DAY sertraline (ZOLOFT) 100 mg tablet Take 1 tablet by mouth once daily. sildenafil (VIAGRA) 100 mg tablet Take 1 tablet by mouth once daily as needed. Take 30-60 minutes before sexual activity. tacrolimus IR (PROGRAF) 1 mg capsule Take 4 capsules by mouth every morning AND 3 capsules every evening. (take with 5 mg capsules for Total dose of 9 mg in the morning and 8 mg in the evening). tacrolimus IR (PROGRAF) 5 mg capsule Take 1 capsule by mouth two times a day. Take with Tacro 4 mg in am and 3 mg in pm for total dose of 9 mg in am and 8 mg in pm albuterol (PROVENTIL) 2.5 mg /3 mL (0.083 %) nebulizer solution USE 1 VIAL IN NEBULIZER 4 TIMES DAILY oseltamivir (TAMIFLU) 30 mg capsule Take 1 capsule by mouth two times a day. Tamiflu emergency Rx. Take upon onset of influenza symptoms and get tested as soon as possible. sulfamethoxazole-trimethoprim (BACTRIM DS) 800-160 mg per tablet TAKE 1 TABLET BY MOUTH EVERY TUESDAY,TUESDAY,AND TUESDAY mycophenolate mofetil (CELLCEPT) 250 mg capsule Take 3 capsules by mouth twice daily. magnesium oxide (MAG-OX) 400 mg (241.3 mg magnesium) tablet Take 1 tablet by mouth two times a day. pantoprazole DR (PROTONIX) 20 mg tablet Take 1 tablet by mouth daily at 6 am. atorvastatin (LIPITOR) 10 mg tablet Take 1 tablet by mouth daily at bedtime. azithromycin (ZITHROMAX) 250 mg tablet Take 1 tablet by mouth every Tuesday, Tuesday, and Tuesday. traMADol (ULTRAM) 50 mg tablet Take 1 tablet by mouth every 4 hours as needed for pain (for pain.). acetaminophen (TYLENOL) 325 mg tablet Take 2 tablets by mouth every 6 hours as needed for pain. No current facility-administered medications for this visit. NEW COMPLAINTS: Patient here for 3 month follow up visit in conjunction with [facility]. Patient had bronch on 11/18/23 with A0B0 and NGTD. Patient had 1 year bronch last visit which was + for one colony of Aspergillus niger. Patient was not treated and saw ID who agrees with not starting an antifungal therapy Patient presents today walking with cane and on RA. Patient denies coughing, sputum, wheezing, or SOB. Afebrile. Patient not doing any formal exercise due to right knee with arthritis/bone on bone. Currently wearing knee brace/wrap. Home Spirometry readings not monitored recently due to machine notworking. PFTs today increased 1% since last visit, FEV1 2.73. Home BP 120-130s/70-80s and HR 80-90s. Today BP 146/66 and HR 93. Currently on no BP medications. Denies chest pain, palpitations, or BLE edema. Appetite is good. Eats 3 meals a day. Weight today increased 6 lbs since last visit. Denies nausea,vomiting or ROMEO symptoms. Patient taking Protonix for reflux prevention. Moving bowels daily, occasional diarrhea. Tremors mild. Sleep is broken, sleeps in bed and then goes to the chair. Patient is doing well with medications and routine with his . ID: CMV: Donor: Negative / Recipient: Positive EBV: Donor: Negative / Recipient: Positive. Currently on Valcyte STOPPED AT 1 YEAR, Voriconazole 200 mg completed, Ambisome 25mg completed, and Bactrim DS every Tuesday, Tuesday and Tuesday. Taking Azithromycin 250 mg and Atorvastatin 10 mg daily. REVIEW OF SYSTEMS: GENERAL: 6 lb weight gain, no malaise or fevers HEENT: Negative for frequent or significant headaches, No changes in hearing or vision, no nose bleeds or other nasal problems NECK: Negative for lumps, goiter, pain and significant neck swelling RESPIRATORY: Negative for cough, hemoptysis, wheezing, COPD, dyspnea or shortness of breath CARDIOVASCULAR: Negative for chest pain, leg swelling, hypertension, CHF or palpitations GI: No nausea, vomiting, or diarrhea : No history of dysuria, frequency or incontinence MUSCULOSKELETAL: Negative for joint pain or swelling, back pain or muscle pain SKIN: Negative for lesions, rash, and itching PSYCH: Negative for sleep disturbance, mood disorder and recent psychosocial stressors HEMATOLOGY/LYMPHOLOGY: Negative for prolonged bleeding, bruising easily or swollen nodes ENDOCRINE: Negative for cold or heat intolerance, polyuria, polydipsia and goiter NEURO: No history of headaches, syncope, paralysis, seizures or tremors PATIENT TRANSPLANT KARNOFSKY INDEX AND LANSKY SCALE 80% - Normal activity with effort: some symptoms of disease. Patient Working? No, on medical disability since 2011 IMMUNIZATIONS: Hep A: 04/13/21; 07/22/21 (11/18/21) positive Hep B: 04/13/21; 07/22/21;02/24/22 (07/17/22) positive Flu vaccine: 11/18/21, 11/08/22, 11/10/23 RSV: 12/05/22 Prevnar 20: 07/22/21 COVID 19 vaccine - Moderna ( 12/12/2020, 05/08/2020, 04/10/2020); 11/08/21, 11/08/22, 11/10/23 Shingles: 04/19/2019, 11/16/2018 PPD/TB Quant: 04/13/21 Negative Tetanus booster: 04/13/21 RSV: 12/05/22 HEALTH MAINTENANCE: PSA: 02/24/22 0.18, 11/10/23 0.44 01/19/24 0.30 Dermatology - 11/15/22 frozen spots on top of head, and back will schedule locally COLONOSCOPY: 01/30/13 ([facility]) Rectal mucosa normal. Grade 1 internal hemorrhoids. Ileum normal, mucosal and submucosal vascular patter throughout the colon was normal. No polyp or mass identified, no inflammatory changes. 07/18/23 1 polyp removed BONE DENSITY: 01/19/24 IMPRESSION: THE LOWEST T-SCORE IS -1.6 IN THE RIGHT AND LEFT HIPS 1) DIAGNOSIS (based on BMD alone): OSTEOPENIA ENDO CONSULT: 11/10/23 scheduled 04/24/24 Due to CKD, bisphosphonate is not recommended at this time. Update labs, pending results will recommend treatment. Calcium 1200 to 1500 mg daily recommended- if cannot achieve this through diet, then supplement recommended in divided doses. Weight bearing exercise as tolerated recommended. Fall precautions discussed. Repeat bmd on same machine as prior. POST-TRANSPLANT GERD STUDIES: ESOPHAGRAM - 11/12/22 IMPRESSION: NORMAL ESOPHAGEAL EMPTYING. ESOPHAGEAL MANOMETRY- 08/16/22 Impressions EGJOO with spasm and hypercontractile esophagus, consistent with type III achalasia. Correlate clinically with timed barium esophagram, EGD, and symptoms of dysphagia. Spastic segment is 14 cm above the LES. pH PROBE- 08/25/22 Interpretations Normal study OFF PPI therapy with acid exposure time of 0.1%. Symptom association was negative to cough. GASTRIC EMPTYING- 08/19/22 IMPRESSION: NORMAL RATE OF GASTRIC EMPTYING OF SOLID MEAL PRE-TRANSPLANT GERD STUDIES: ESOPHAGEAL MONOMETRY: 07/22/21 Interpretation / Findings LES: Normal resting pressure, complete relaxation Body of the esophagus (supine): --7 swallows with normal peirstalsis --3 swallows with hypertensive peristalsis PH PROBE: 07/22/21 Normal study. GASTRIC EMPTYIN07/23/21 NORMAL RATE OF GASTRIC EMPTYING OF SOLID MEAL. PULMONARY FUNCTION TESTING: Date 04/24/24 FVC (L) 3.93 2.93 4.95 3.34 85 FEV1 (L) 3.01 2.21 3.76 2.73 90 URX44-62 (L/sec) 2.49 1.12 4.41 2.34 93 Time (sec) 4.80 Date 01/19/24 FVC (L) 3.29 2.94 3.94 4.96 83 FEV1 (L) 2.69 2.21 3.02 3.77 89 GUO89-54 (L/sec) 2.44 1.13 2.51 4.43 97 Time (sec) 5.07 Date 11/10/23 FVC (L) 3.21 2.95 3.95 4.96 81 FEV1 (L) 2.69 2.22 3.02 3.78 89 EPH96-25 (L/sec) 2.52 1.14 2.52 4.44 100 Time (sec) 4.21 FVC (L) 3.28 2.95 3.95 4.97 82 Date 07/21/23 FVC (L) 3.28 2.95 3.95 4.97 82 FEV1 (L) 2.92 2.23 3.03 3.79 96 FIVC (L) 3.06 DVY09-00 (L/sec) 3.49 1.15 2.53 4.46 137 Time (sec) 3.32 Date 04/20/23 FVC (L) 3.10 2.96 3.96 4.98 78 FEV1 (L) 2.86 2.23 3.04 3.80 94 XHQ76-67 (L/sec) 3.26 1.16 2.55 4.47 127 Time (sec) 2.78 Date 01/19/23 <-- Reviewed by Dr. Magallanes and discussed with patient FVC (L) 2.93 2.96 3.97 4.99 73 FEV1 (L) 2.73 2.24 3.05 3.81 89 CRZ76-12 (L/sec) 3.41 1.17 2.56 4.49 133 Time (sec) 3.07 Date 11/29/22 FVC (L) 2.89 2.97 3.97 4.99 72 FEV1 (L) 2.67 2.24 3.05 3.81 87 AZE32-01 (L/sec) 3.12 1.17 2.57 4.50 121 Time (sec) 2.91 Date 10/21/22 FVC (L) 2.80 3.05 4.09 5.14 68 FEV1 (L) 2.70 2.30 3.13 3.91 86 BIN51-50 (L/sec) 4.53 1.20 2.62 4.58 173 Time (sec) 2.05 Date 10/04/22 FVC 2.85 3.06 4.09 5.14 69 FEV1 2.70 2.30 3.13 3.91 86 BFH35-20 4.59 1.20 2.62 4.59 175 Time 3.21 Date 09/01/22 FVC (L) 2.50 3.06 4.09 5.14 61 FEV1 (L) 2.37 2.31 3.14 3.92 75 NDN39-05 (L/sec) 4.02 1.20 2.62 4.59 153 Time (sec) 2.18 Date [id number] FVC (L) 2.26 3.06 4.09 5.14 55 FEV1 (L) 2.19 2.31 3.14 3.92 69 LVF84-60 (L/sec) 5.58 1.20 2.62 4.59 212 Time (sec) 1.90 Date 08/18/22 FVC (L) 2.23 3.06 4.09 5.14 54 FEV1 (L) 2.11 2.31 3.14 3.92 67 BQX26-60 (L/sec) 3.40 1.20 2.63 4.59 129 Time (sec) 2.35 Date: 08/11/22 FVC (L) 2.31 3.06 4.09 5.14 56 FEV1 (L) 1.95 2.31 3.14 3.92 62 GAY10-02 (L/sec) 1.83 1.21 2.63 4.60 69 Time (sec) 4.59 Date: 06/02/22 Pre-Transplant FVC (L) 2.76 3.26 4.34 5.44 63 FEV1 (L) 0.81 2.45 3.32 4.14 24 DIF54-37 (L/sec) 0.24 1.21 2.64 4.61 9 Time (sec) 14.94 PORTIONS OF THIS NOTE WERE TAKEN FROM NOTE DATED 01/19/24. ALL THE INFORMATION BY THE RN / 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 MANAGER HAS BEEN CONFIRMED, REVIEWED AND VERIFIED BY ME. CXR 04/24/24 <-- Reviewed by Dr. Magallanes and discussed with patient No interval change No results for input(s): FK506 in the last 168 hours. PHYSICAL EXAMINATION: There were no vitals taken for this visit. General appearance: Well appearing, alert, in no acute distress, well-hydrated, well nourished. andMorbidly obese Skin: Skin color, texture, turgor normal, no suspicious rashes or lesions Head: Normocephalic, no masses, lesions, tenderness or abnormalities Eyes: Anicteric sclera. Pupils are equally round and reactive to light. Extraocular movements are intact. Ears: External ears normal, canals clear Nose/Sinuses: Nares normal, septum midline, mucosa normal, no drainage or sinus tenderness Oropharynx: Lips, mucosa, and tongue normal, teeth and gums normal, oropharynx normal Neck: Supple, no adenopathy; thyroid symmetric, normal size, no bruits Back: Normal exam Lungs: Lungs clear to auscultation. No wheezing, rhonchi, rales. Heart: RRR without murmur, gallop, or rubs. No ectopy Abdomen: Normal abdominal exam, Abdomen soft, non-tender. Bowel sounds normal. No masses, organomegaly Extremities: No deformities, edema, skin discoloration, clubbing or cyanosis. Good capillary refill. Musculoskeletal: No joint swelling, deformity, or tenderness Peripheral pulses: Normal Neuro: Gait normal. Reflexes normal and symmetric. Sensation grossly intact. 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 Status Post Cataract Extraction and Insertion of Intraocular Lens of Left Eye Status Post Cataract Extraction and Insertion of Intraocular Lens of Right Eye Obesity, Class II, Bmi 35-39.9 Obesity, Class I, Bmi 30-34.9 PLAN OF CARE Brief staff summary: Since last visit, lung function numbers are similar, imaging is nothing new, and labs are in process Will need PSG locally # Encounter for aftercare following bilateral 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/22 for COPD - Lung allograft function stable - Continue prednisone 5 mg daily with no change today - Continue Cellcept 750 mg twice daily with no change today - Continue Tacrolimus 9 mg in the AM and 8 mg in the evening - awaiting trough level today to guide possible dose adjustment for goal trough of 9-12 Current prophylaxes falling under the umbrella of aftercare following lung transplant # Antiviral CMV D-/R+ - completed # Pneumocystis Prophylaxis - continue Bactrim on //, actively needed and prescribed by me for prophylaxis # Fungal Prophylaxis - completed # Chronic rejection Prophylaxis - continue azithromycin actively needed and prescribed by me for prophylaxis # Cardiovascular Status - Monitor home BP - Active current and chronic mixed hyperlipidemia with LDL goal <100 managed by me with atorvastatin # Gastrointestinal Status - Active current and chronic gastroesophageal reflux disease without esophagitis managed by me with proton pump inhibition # Endocrine/Bone Status - Active current and chronic steroid induced osteoporosis managed by me with vitamin D, Calcium - Care collaborated with me here at [facility] with Endocrine Bone Health and Diabetes Adult Health groups # Renal Status - Active current and chronic stage 3a renal failure with Estimated Creatinine Clearance: 59.2 mL/min (A) (based on SCr of 1.51 mg/dL (H)). - Based on today's GFR, all renally dosed medications and renal interactions have been accounted for and medications adjusted - Electrolytes have been reviewed, specifics such as HYPERkalemia have been addressed with the coordinator and patient # Hematology/Oncology Status - Active monitoring of drug induced cytopenias/cellular aplasias, medications addressed/adjusted today - Coagulopathy - no - Age-appropriate cancer screening - yes # MSK - right knee pain - safe to undergo eventual knee replacement surgery, still having injections locally - foot pain - decrease tramadol to 50 mg q 8 hrs PRN pain During this patient visit I spent 45 minutes in the visit, with more than 50% of the total [id number] time of the visit in counseling / coordination of care. More specifically we discussed the patient's chest x-ray, today's lab results - most importantly immunosuppression levels and have made relevant adjustments to maintain health, wellness and stabilitypost transplant. We have coordinated with patient and consultants all follow up visits. Follow Up: 3 months with routine labs, imaging, and spirometry Osbaldo Magallanes MD Staff Physician [facility], Respiratory [place] [facility] [address] [place], [place] [id number] [address] documented in this encounterCommunity [facility] History of Present illness Narrative* Shira Holloway RT(R) - 04/24/2024 8:30 AM EDT Radiology Service Progress Note PATIENT NAME: Belgica Angelo DATE OF SERVICE: April 24, 2024 TIME: 7:46 AM PATIENT IDENTITY VERIFICATION COMPLETED USING TWO (2) IDENTIFIERS: Name and Date of confirmedby patient verbally. FALL SCREENING: Has the patient had 2 falls in the last year or 1 fall with injury or currently using an Ambulatory Assistive Device (Walker, Cane, Wheelchair, Crutches, etc.)? No PATIENT GENDER DATA: Assigned male at PATIENT RELEVANT IMPLANT DATA REVIEWED: Not Applicable PATIENT PRESENTS WITH AN IMPLANTABLE OR ATTACHED CURATOR NATURAL HISTORY MUSEUM: No RADIOLOGY DEPARTMENT: General X-ray: Exam(s) Completed: Chest X-Ray PERIPHERAL IV DATA: Not applicable SIGNED BY: RT Alyce(R) April 24, 2024 7:46 AM documented in this encounterCommunity [facility]03-18-[facility]25 History of Present illness Narrative* Nick Saravia, Research Coordinator - 04/24/2024 8:11 AM EDT Summary: IRB # [id number] [facility] Transplant Biorepository Belgica Angelo is here for IRB # [id number] [facility] Trans[facility] Visit # V9 Belgica Angelo is here for 24 months post transplant visit. Subject was met in [facility] lab to obtain 5 tubes of blood with their clinical blood draw and a urine sample. Next visit is due at 36 monthsmonths post transplant. Blood sample obtained? Yes Urine sample obtained? Yes Bronchoscopy sample obtained? No; patient is 1+ year post-transplant, bronchoscopy is unlikely to occur unless for-cause Nick Saravia Research Coordinator Subject to continue in trial documented in this encounterCommunity [facility] Hospital03-18-[facility]25 History of Present illness Narrative* Ashley Jin PA-C - 04/24/2024 8:09 AM EDT Images from the original note were not included. Osteoporosis and Metabolic Bone Disease Date of Service: 04/24/2024 Patient: Belgica Angelo Medical Record: [id number] Primary Care Physician: Keshav Phillips APRN.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 MANAGER Last Rheumatology visit: 02/10/2024 (with Ashley Jin) History of Present Illness Belgica Angelo is a 68 year old White male who presents on 04/24/2024 for an in- person visit for evaluation of Osteopenia. The patient consented to the use of [employer]otera software for draft documentation of the visit consistent with [facility] s Notice of Privacy Practices. 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 WH has been taking Fosamax once weekly as prescribed since 02/2024, adhering to instructions to takeit first thing in the morning with water and waiting 30 minutes before eating or drinking. He denies experiencing any gastrointestinal upset or acid reflux associated with the medication. He inquiresabout the duration of Fosamax therapy. He reports no new fractures or broken bones. He denies any recent falls. He has no planned dental work requiring extractions or implants, but recently had fillings placed. He is taking vitamin D 2,000 units daily. He denies a history of radiation therapy. He reports chronic knee pain described as bone on bone and notes that his knee occasionally givesout. He has received intra-articular injections, which are no longer effective, and is scheduled for nerve ablation on April 30 Disease History Previous Visit History: Osteoporosis History Patient has a history of fracture(s) (Comment: Finger and toes) Most Recent BMD Date: 01/19/24 TBS: 1.455 g/cm2 LS T-Score: 1.8 stable R Hip T-Score: -1.6 stable L Hip T-Score: -1.6 stable normal > 1.310 VFA: No fracture Daily Calcium diet: (Comment: no milk, ice cream 3-4x/week, Cheese 1x/week, no yogurt, no leafy greens) Daily Calcium supplementation: 1200 mg Daily Vitamin D: 1000 IU Current Multivitamin: No Transplant patient: lung Bilateral lung transplant due to COPD/A1AT on 07/20/2022 Dental: No planned dental procedures. Link to FRAX Website RAPID 3 Mejia Activities of Daily Living 02/10/2024 11:42 AM Dress self? Without ANY difficulty Get in and out of bed? Without ANY difficulty Walk outdoors? Without ANY difficulty Wash and dry body? Without ANY difficulty Get in and out of car? Without ANY difficulty Tobacco Use Former; Cigarettes: 1980 - 2010; Smoked an average of 4.0 packs/day for 30.0 years Smokeless Tobacco: Never used smokeless tobacco. Tobacco Cessation: Counseling given: Not Answered Vaping Use Never used Alcohol Use Never. TREATMENT HISTORY Osteoporosis - Antiresorptive Treatments Treatment Start Date Stop Date Stop Reason Comment Fosamax 02/2024 Osteoporosis - Anabolic Treatments Treatment Start Date Stop Date Stop Reason Comment None History of Radiation: No RISK FACTORS Osteoporosis FRAX Risk Factors Fracture(s) (Comment: Finger and toes) No family history of osteoporosis No parent with a hip fracture Not a current smoker (Comment: Quit in 2009) Glucocorticoid use (Comment: Daily prednisoen since 07/2022. Current and usual dose is 5 mg daily.) Current use No rheumatoid arthritis No alcohol use more than 3 units per day Osteoporosis Medication Risk Factors Furosemide Proton pump inhibitor Osteoporosis Disease-Specific Risk Factors Weight is not less than 127 lbs Height loss 1 inch normal balance No fall history No history of eating disorders No history of renal calculi Chronic kidney disease Caffeine intake: 1-3 c/day Exercise routine: no regular exercise program BONE DENSITY RESULTS Last Bone Density DXA-AXIAL SKELETON WITH VFA Exam End: 01/19/2024 8:24 AM (Final result) Narrative: * * *Final Report* * * DATE OF EXAM: Jan 19 2024 8:24AM MCB 0802 - BD VFA WITH DXA - AXIAL SKELETON / PROCEDURE REASON: multiple diagnoses * * * * Physician Interpretation * * * * EXAMINATION: DXA BONE DENSITOMETRY BD DXA TRABECLR BONE SCORE (TBS), BD VFA WITH DXA - AXIAL SKELETON PATIENT DEMOGRAPHICS: Age: 68 years, Gender: Male SCANNER INFORMATION: DXA Model: A2AlleyWatch (S/N: [id number]) Date Scanned: 01/19/2024 8:24 AM CLINICAL HISTORY: DIAGNOSTIC 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 RISK FACTORS FOR OSTEOPOROSIS AND ASSOCIATED FRACTURES REPORTED BY THIS PATIENT: Please refer to Bone Health Questionnaire in the EMR CURRENT THERAPY: Please refer to Bone Health Questionnaire in the EMR TECHNICAL LIMITATIONS: Degenerative disease of the spine RESULTS: Lumbar Spine (L1, L2, L3, L4): Total BMD: 1.440, T-score: 1.8, Z-score: 1.6 Lumbar spine: 2022: 1.436 g/cm2 No statistically significant change Right Femoral Neck: 0.866 g/cm2, T-score -1.6, Z-score -0.9 Right Femoral Neck: 2022: 0.871 g/cm2 No statistically significant change Right Total Hip: 0.891 g/cm2 , T-score -1.5, Z-score -1.3 Right Total Hip: 2022: 0.885 g/cm2 No statistically significant change Left Femoral Neck: 0.867 g/cm2, T-score -1.6, Z-score -0.9 Left Femoral Neck: 2022: 0.890 g/cm2 No statistically significant change Left Total Hip: 0.925 g/cm2, T-score -1.2, Z-score -1.1 Left Total Hip: 2022: 0.933 g/cm2 No statistically significant change CHANGE IS STATISTICALLY SIGNIFICANT IN THE SPINE OR HIP IF GREATER THAN OR EQUAL TO 0.04 g/cm2 VERTEBRAL FRACTURE ASSESSMENT Indication for VFA: organ transplant Levels visualized: T5-L5 Results: No fracture identified Presence of a single vertebral fracture increases subsequent global fracture risk, multiple fractures significantly increase fracture risk. TRABECULAR BONE ASSESSMENT TBS score: 1.455 Bone micro-architecture: normal (> 1.310) Impression: IMPRESSION: THE LOWEST T-SCORE IS -1.6 IN THE RIGHT AND LEFT HIPS 1) DIAGNOSIS (based on BMD alone): OSTEOPENIA Caution: Medical conditions other than osteoporosis may cause low bone density, such as osteomalacia or renal osteodystrophy. Clinical correlation is necessary. 2) FRACTURE RISK (Based on TBS adjusted FRAX): 10-year absolute fracture risk: - major osteoporotic fracture =7.6 % - hip fracture = 1.3 % - A diagnosis of Osteoporosis, a 10 year probability of hip fracture greater than or equal to 3% or a 10 year probability of any major osteoporosis-related fracture greater than or equal to 20% should be considered for treatment. - DXA scanner generated FRAX calculations may slightly differ from online FRAX calculations due to differences in software versions. - All recommendations and calculations are to be considered as guidelines and should not replace sound clinical judgement - Caution: Fracture risk may be increased independent of BMD in patients with corticosteroid use, age greater than 65 years, or a history of prior fragility fracture. RECOMMENDATIONS: Follow-up in 2 years or as clinically indicated. Patients that are taking corticosteroids, are transplant recipients or have hyperparathyroidism should have annual follow-up. Follow-up scans should always be done on the same machine for accurate comparison. FOR MORE INFORMATION ABOUT DIAGNOSIS AND TREATMENT: [facility] Osteoporosis and Metabolic Bone Disease:? www.ccf.org/arthritis/osteo National Osteoporosis Foundation:? www.nof.org International Society of Clinical Densitometry www.iscd.org Hydropress Operator: [id number] Transcribe Date/Time: Jan 19 2024 9:29A Dictated by : BULMARO CHANDRA MD This examination was interpreted and the report reviewed and electronically signed by: BULMARO CHANDRA MD on Jan 19 2024 10:25AM EST BONE DENSITY RESULTS: EXTERNAL Patient-Entered Data PAIN EVALUATION 04/24/2024 0808 Pain Level: 5 pain knee and right ankle Description: Throbbing;Aching Frequency: Intermittent PROMIS Assessments 03/17/2022 07/16/2022 02/10/2024 PROMIS Assessments Physical Health Percentile 22 10 Mental Health Percentile 9 Pain Score 5 3 Pain Interference Percentile 7 Fatigue Percentile 21 Physical Function Percentile 4 RAPID 3 Mejia Activities of Daily Living 02/10/2024 11:42 AM Dress self? Without ANY difficulty Get in and out of bed? Without ANY difficulty Walk outdoors? Without ANY difficulty Wash and dry body? Without ANY difficulty Get in and out of car? Without ANY difficulty RAPID 3 Disease Activity Weighed Score Levels: 0 - 1: Near Remission 1.3 - 2.0: Low Severity 2.3 - 4.0: Moderate Severity 4.3 - 10.0: High Severity 02/10/2024 RAPID-3 Weighed Score RAPID 3 Weighed Score 1.11 (Minimal to no symptoms) PHQ-9 0 - 4: Minimal Depression 5 - 9: Mild Depression 10 - 14: Moderate Depression 15 - 19: Moderately Severe Depression 20 - 27: Severe Depression 07/11/2023 PHQ-9 PHQ-2 Score 0 Review of Systems Review of Systems CONSTITUTION: Negative for: Fever HEENT: Negative for: Trouble swallowing RESPIRATORY: Negative for: Cough and Shortness of breath GASTROINTESTINAL: Negative for: Heartburn MUSCULOSKELETAL: Positive for: Arthralgias Negative for: Myalgias NEUROLOGICAL: Negative for: Headaches and Numbness SKIN: EYES: CARDIOVASCULAR: Negative for: Chest pain and Leg swelling GENITOURINARY: HEMATOLOGIC/LYMPHATIC: Jaw pain: No All other reviewed and negative other than HPI. Past Medical History PAST MEDICAL HISTORY Diagnosis Date Asthma Bronchiectasis (HCC) COPD (chronic obstructive pulmonary disease) ([facility]) Dependence on supplemental oxygen No longer neede post transplant Heterozygous alpha 1-antitrypsin deficiency (HCC) PiMZ Lung nodule Pain in joint, ankle and foot S/P lung transplant ([facility]) Past Surgical History PAST SURGICAL HISTORY Procedure Laterality Date LUNG TRANSPLANT,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 PAST SURGICAL HISTORY OF 02/07/2011 Rt foot reconstruction REMV CATARACT EXTRACAP,INSERT LENS REMV CATARACT EXTRACAP,INSERT LENS Right 04/28/2023 SN60WF +20.0 D RPR UMBILICAL HRNA 5 YRS/> REDUCIBLE 07/26/2012 Hernia repair, umbilical >5yr Family History FAMILY HISTORY Problem Relation Age of Onset COPD Mother Heart disease Father Breast Cancer Sister No Known Problems Sister No Known Problems Sister COPD Brother COPD Brother Tuberculosis No Family History Social History Social History Tobacco Use Smoking status: Former Current packs/day: 0.00 Average packs/day: 4.0 packs/day for 30.0 years (120.0 ttl pk-yrs) Types: Cigarettes Start date: 1980 Quit date: 2010 Years since quittin.2 Smokeless tobacco: Never Vaping Use Vaping status: Never Used Substance Use Topics Alcohol use: Never Drug use: Never Current Medications Present Osteoporosis Medications: Current Antiresorptive Medications Bone Resorption Inhibitors - Bisphosphonates Start End alendronate (FOSAMAX) 70 mg tablet 04/24/2024 10/21/2024 Sig - Route: Take 1 tablet by mouth one time a week. In the morning with a full glass of water, on an empty stomach. Do not take anything else by mouth or lie down for the next 30 minutes. - ORAL Current Outpatient Medications Medication Sig predniSONE (DELTASONE) 5 mg tablet Take 1 tablet by mouth once daily. PHOSPHOROUS 250 mg tablet TAKE 1 TABLET BY MOUTH EVERY DAY sertraline (ZOLOFT) 100 mg tablet Take 1 tablet by mouth once daily. sildenafil (VIAGRA) 100 mg tablet Take 1 tablet by mouth once daily as needed. Take 30-60 minutes before sexual activity. tacrolimus IR (PROGRAF) 1 mg capsule Take 4 capsules by mouth every morning AND 3 capsules every evening. (take with 5 mg capsules for Total dose of 9 mg in the morning and 8 mg in the evening). tacrolimus IR (PROGRAF) 5 mg capsule Take 1 capsule by mouth two times a day. Take with Tacro 4 mg in am and 3 mg in pm for total dose of 9 mg in am and 8 mg in pm albuterol (PROVENTIL) 2.5 mg /3 mL (0.083 %) nebulizer solution USE 1 VIAL IN NEBULIZER 4 TIMES DAILY oseltamivir (TAMIFLU) 30 mg capsule Take 1 capsule by mouth two times a day. Tamiflu emergency Rx. Take upon onset of influenza symptoms and get tested as soon as possible. sulfamethoxazole-trimethoprim (BACTRIM DS) 800-160 mg per tablet TAKE 1 TABLET BY MOUTH EVERY TUESDAY,TUESDAY,AND TUESDAY mycophenolate mofetil (CELLCEPT) 250 mg capsule Take 3 capsules by mouth twice daily. magnesium oxide (MAG-OX) 400 mg (241.3 mg magnesium) tablet Take 1 tablet by mouth two times a day. pantoprazole DR (PROTONIX) 20 mg tablet Take 1 tablet by mouth daily at 6 am. atorvastatin (LIPITOR) 10 mg tablet Take 1 tablet by mouth daily at bedtime. azithromycin (ZITHROMAX) 250 mg tablet Take 1 tablet by mouth every Tuesday, Tuesday, and Tuesday. traMADol (ULTRAM) 50 mg tablet Take 1 tablet by mouth every 4 hours as needed for pain (for pain.). alendronate (FOSAMAX) 70 mg tablet Take 1 tablet by mouth one time a week. In the morning with a full glass of water, on an empty stomach. Do not take anything else by mouth or lie down for the next 30 minutes. acetaminophen (TYLENOL) 325 mg tablet Take 2 tablets by mouth every 6 hours as needed for pain. (Patient not taking: Reported on 04/24/2024) No current facility-administered medications for this visit. Labs Latest Ref Rng & Units 01/19/2024 02/13/2024 03/05/2024 04/02/2024 Calcium Calcium 8.5 - 10.2 mg/dL 9.0 9.5 8.9 8.9 Latest Ref Rng & Units 01/19/2024 02/13/2024 03/05/2024 04/02/2024 Alkaline Phosphatase Alkaline Phosphatase 38 - 113 U/L 131 136 125 136 Alkaline Phosphatase 38 - 113 U/L 131 136 125 136 Latest Ref Rng & Units 04/13/2021 TSH TSH 0.270 - 4.200 mIU/L 0.478 Latest Ref Rng & Units 02/24/2022 12/05/2023 Vitamin D Vitamin D 25 Hydroxy 31.0 - 80.0 ng/mL 15.5 21.1 Latest Ref Rng & Units 01/19/2024 02/13/2024 03/05/2024 04/02/2024 Creatinine Creatinine 0.73 - 1.22 mg/dL 1.74 1.39 1.35 1.51 Latest Ref Rng & Units 01/19/2024 02/13/2024 03/05/2024 04/02/2024 Protein, Total Protein, Total 6.3 - 8.0 g/dL 6.1 6.4 6.3 6.6 Latest Ref Rng & Units 01/19/2024 02/13/2024 03/05/2024 04/02/2024 Albumin Albumin 3.9 - 4.9 g/dL 4.3 4.3 4.3 4.5 Latest Ref Rng & Units 04/13/2021 PTH PTH, Intact 15 - 65 pg/mL 50 Latest Ref Rng & Units 07/17/2022 07/19/2022 07/21/2022 07/30/2022 Hepatitis Screen Hep B Core Ab, Total Negative Negative Negative Hep B Surf Ab Qual Positive Positive Positive Hep C Antibody IA Negative Negative Negative Negative Negative Hep B Surface Ag Negative Negative Negative Negative Negative Imaging Last XR Lumbar Spine - Impression Only No resulted procedures found. Last XR Thoracic Spine - Impression Only No resulted procedures found. Last CT Lumbar Spine - Impression Only No resulted procedures found. Last CT Thoracic Spine - Impression Only No resulted procedures found. Last MRI Lumbar Spine - Impression Only No resulted procedures found. Last MRI Thoracic Spine - Impression Only No resulted procedures found. Health Maintenance BP Controlled (<130/80) Never done Advance Directive Discussion due on 02/08/2024 Colorectal Cancer Screening due on 07/17/2024 Meningococcal Conjugate Vaccine(1 - Risk 2-dose series) due on 07/10/2024 Covid-19 Vaccine(8 - Moderna risk season) due on 05/10/2024 Depression Screening due on 07/10/2024 Anxiety Screening due on 07/10/2024 Lung Cancer Screening due on 11/09/2024 Annual PCP Team Chronic Disease Visit due on 01/02/2025 Diabetes Screening due on 04/02/2027 Lipid Screening due on 01/18/2029 Prostate Cancer Screening Discussion due on 01/18/2029 DTaP,Tdap,Td Vaccine(2 - Td or Tdap) due on 04/14/2031 Influenza Vaccine Completed RSV Vaccine Completed Hepatitis C Screening Completed Shingrix Vaccine Completed Pneumococcal Vaccine: 50+ Completed Abdominal Aortic Aneurysm Screening Discontinued Physical Exam BP 133/75 Pulse 90 Temp 36.6 C (97.9 F) (Temporal) Ht 177.8 cm (5' 10) Wt 115.2 kg (254 lb) BMI 36.45 kg/m EYES: MILLY, conjunctiva and sclera normal. EARS: External ears normal. NOSE/SINUS: Nares normal. THROAT: Normal and no erythema. DENTAL: Normal HEART: RRR with normal S1 and S2 ,no murmurs, no gallops, no JVD appreciated. LUNGS: Clear to auscultation. 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 Fosamax since 02/2024. Osteoporosis FRAX Risk Factors Fracture(s) (Comment: Finger and toes) No family history of osteoporosis No parent with a hip fracture Not a current smoker (Comment: Quit in 2009) Glucocorticoid use (Comment: Daily prednisoen since 07/2022. 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 No # Steroid-induced osteopenia (M85.80) # care home current use of systemic steroids (Z79.52) Osteopenia secondary to chronic prednisone use, which increases osteoclastic activity leading to bone resorption. No new fractures reported. No history of radiation therapy. Patient is currently on Fosamax to counteract the effects of prednisone. - Continue Fosamax once weekly, taken first thing in the morning on an empty stomach with water, followed by a 30-minute wait before eating or drinking. - Educated patient on the mechanism of action of Fosamax, emphasizing its role in reducing bone resorption and potentially improving bone density. - Discussed the importance of notifying me prior to any dental extractions or implant placements totemporarily discontinue Fosamax. - Repeat bmd on same machine as prior around 01/2025. - Follow-up in 6 months, either virtually or in person. # 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, bilateral (HCC) (Z94.2) Stable post-bilateral lung transplant. - Continue follow up with transplant team. # Vitamin D deficiency (E55.9) Previously identified low vitamin D levels. Patient is currently taking 2000 units of vitamin D daily. - Ordered serum vitamin D level to be added to today's blood work. - Will review results and adjust dosage if necessary. 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 No gastrointestinal side effects reported. - Continue Fosamax as prescribed. - Anticipate to treat 2-3 years then initiate drug holiday. - Provided a 6-month supply of Fosamax. # Elevated alkaline phosphatase level (R74.8) Alkaline phosphatase levels have been stably elevated over the past few months. Potential etiologies include hepatic, biliary, or osseous sources. - Ordered additional laboratory tests to delineate the source of elevated alkaline phosphatase. - Will review results and determine further management based on findings. new fractures reported. No history of radiation therapy. Patient is currently on Fosamax to counteract the effects of prednisone. - Continue Fosamax once weekly, taken first thing in the morning on an empty stomach with water, followed by a 30-minute wait before eating or drinking. - Educated patient on the mechanism of action of Fosamax, emphasizing its role in reducing bone resorption and potentially improving bone density. - Discussed the importance of notifying me prior to any dental extractions or implant placements totemporarily discontinue Fosamax. - Repeat bmd on same machine as prior around 01/2025. - Follow-up in 6 months, either virtually or in person. # 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, bilateral (HCC) (Z94.2) Stable post-bilateral lung transplant. - Continue follow up with transplant team. # Vitamin D deficiency (E55.9) Previously identified low vitamin D levels. Patient is currently taking 2000 units of vitamin D daily. - Ordered serum vitamin D level to be added to today's blood work. - Will review results and adjust dosage if necessary. # care home (current) use 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 (Z79.83) Patient is on long-term Fosamax therapy for steroid-induced osteopenia. No gastrointestinal side effects reported. - Continue Fosamax as prescribed. - Anticipate to treat 2-3 years then initiate drug holiday. - Provided a 6-month supply of Fosamax. # Elevated alkaline phosphatase level (R74.8) Alkaline phosphatase levels have been stably elevated over the past few months. Potential etiologies include hepatic, biliary, or osseous sources. - Ordered additional laboratory tests to delineate the source of elevated alkaline phosphatase. - Will review results and determine further management based on findings. Orders this visit: Office Visit on 04/24/24 VITAMIN D 25 HYDROXY ALK PHOS ISOENZYM BL alendronate (FOSAMAX) 70 mg tablet Return in about 6 months (around 10/25/2024). Medical Decision Making: Problems: Moderate: 2+ stable chronic illnesses Data: Unique test result(s) reviewed: 3+ Unique test(s) ordered: 2 Risk: Moderate: Drug management Medical Decision Making Level: 4 - Moderate Ashley Jin PA-C Date: April 24, 2024 documented in this encounterCommunity [facility] History of Present illness Narrative* Claudy Montero RRT - 04/24/2024 7:43 AM EDT PULM FUNCTION: Provider: Osbaldo Magallanes MD Spirometry: 1 System: MC9 - [id number] documented in this encounterCommunity [facility]02-25-2025 Telephone encounter Note * Telephone Encounter - Eileen Cm RPh - 04/03/2024 1:57 PM EST Tacrolimus level was therapeutic at 9.9 (goal 9-12). Current dose is 9/8. Would recommend no changeto current dose. Recheck labs in 1 month. Eileen Cm RPh Transplants: 07/20/2022 (Lung) Lab Results Component Value Date FK506 9.9 04/02/2024 CREAT 1.51 (H) 04/02/2024 K 4.6 04/02/2024 WBC 7.66 04/02/2024 ABSNEUT 5.30 04/02/2024 CMVCPY Not detected 04/02/2024 Estimated Creatinine Clearance: 59.2 mL/min (A) (based on SCr of 1.51 mg/dL (H)). [facility] Work Phone: 1(589) 763-197302-25-2025 Miscellaneous Notes* Telephone Encounter - Eileen Cm RPh - 04/03/2024 1:57 PM EST Tacrolimus level was therapeutic at 9.9 (goal 9-12). Current dose is 9/8. Would recommend no changeto current dose. Recheck labs in 1 month. Eileen Cm RPh Transplants: 07/20/2022 (Lung) Lab Results Component Value Date FK506 9.9 04/02/2024 CREAT 1.51 (H) 04/02/2024 K 4.6 04/02/2024 WBC 7.66 04/02/2024 ABSNEUT 5.30 04/02/2024 CMVCPY Not detected 04/02/2024 Estimated Creatinine Clearance: 59.2 mL/min (A) (based on SCr of 1.51 mg/dL (H)). documented in this encounterCommunity [facility] Hospital02-21-2025 History of Present illness Narrative* Timothy Best V, DO - 03/30/2024 10:40 AM ESTAssociated Order(s): Nerve Block: lower extremity Post-Procedure Diagnose(s): Primary osteoarthritis of right knee Images from the original note were not included. SERVICE DATE: March 30, 2024 PCP: Keshav Phillips APRN.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 MANAGER Subjective Patient ID: WH is a 68 year old male. Chief Complaint: Patient presents with: Right Knee Pain PAIN EVALUATION 03/30/2024 1023 Pain Level: 6 Pain Location: Knee-Right Description: Sharp Duration Amount of Time: -- ongoing Frequency: Continuous Intervention/Comfort measure: Reposition HPI Mr. Angelo presents today for follow-up of osteoarthritis right knee. Last seen 1 month ago, at that time gave him Durolane injection. He states it helped some but not a lot and he continues to have pain daily basis. He is not eager to consider surgical options because of his underlying medical conditions. Like to talk about other options for treatment. 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) Dependence on supplemental oxygen No longer neede post transplant Heterozygous alpha 1-antitrypsin deficiency (HCC) PiMZ Lung nodule Pain in joint, ankle and foot S/P lung transplant ([facility]) PAST SURGICAL HISTORY Procedure Laterality Date LUNG TRANSPLANT,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 PAST SURGICAL HISTORY OF 02/07/2011 Rt foot reconstruction REMV CATARACT EXTRACAP,INSERT LENS REMV CATARACT EXTRACAP,INSERT LENS Right 04/28/2023 SN60WF +20.0 D RPR UMBILICAL HRNA 5 YRS/> REDUCIBLE 07/26/2012 Hernia repair, umbilical >5yr FAMILY HISTORY Problem Relation Age of Onset COPD Mother Heart disease Father Breast Cancer Sister No Known Problems Sister No Known Problems Sister COPD Brother COPD Brother Tuberculosis No Family History Social History Tobacco Use Smoking status: Former Current packs/day: 0.00 Average packs/day: 4.0 packs/day for 30.0 years (120.0 ttl pk-yrs) Types: Cigarettes Start date: 1980 Quit date: 2010 Years since quittin.1 Smokeless tobacco: Never Vaping Use Vaping status: Never Used Substance Use Topics Alcohol use: Never Drug use: Never ALLERGIES Allergen Reactions Nsaids (Non-Steroid* Contraindication-Medical Surgical Patient states he is not allergic to Nsaids- caused upset stomach Penicillins GI Upset Patient states he is not allergic to penicillin- caused upset stomach MEDICATIONS: predniSONE (DELTASONE) 5 mg tablet Take 1 tablet by mouth once daily. alendronate (FOSAMAX) 70 mg tablet Take 1 tablet by mouth one time a week. In the morning with a full glass of water, on an empty stomach. Do not take anything else by mouth or lie down for the next 30 minutes. PHOSPHOROUS 250 mg tablet TAKE 1 TABLET BY MOUTH EVERY DAY sertraline (ZOLOFT) 100 mg tablet Take 1 tablet by mouth once daily. sildenafil (VIAGRA) 100 mg tablet Take 1 tablet by mouth once daily as needed. Take 30-60 minutes before sexual activity. tacrolimus IR (PROGRAF) 1 mg capsule Take 4 capsules by mouth every morning AND 3 capsules every evening. (take with 5 mg capsules for Total dose of 9 mg in the morning and 8 mg in the evening). tacrolimus IR (PROGRAF) 5 mg capsule Take 1 capsule by mouth two times a day. Take with Tacro 4 mg in am and 3 mg in pm for total dose of 9 mg in am and 8 mg in pm albuterol (PROVENTIL) 2.5 mg /3 mL (0.083 %) nebulizer solution USE 1 VIAL IN NEBULIZER 4 TIMES DAILY sulfamethoxazole-trimethoprim (BACTRIM DS) 800-160 mg per tablet TAKE 1 TABLET BY MOUTH EVERY TUESDAY,TUESDAY,AND TUESDAY mycophenolate mofetil (CELLCEPT) 250 mg capsule Take 3 capsules by mouth twice daily. magnesium oxide (MAG-OX) 400 mg (241.3 mg magnesium) tablet Take 1 tablet by mouth two times a day. pantoprazole DR (PROTONIX) 20 mg tablet Take 1 tablet by mouth daily at 6 am. atorvastatin (LIPITOR) 10 mg tablet Take 1 tablet by mouth daily at bedtime. azithromycin (ZITHROMAX) 250 mg tablet Take 1 tablet by mouth every Tuesday, Tuesday, and Tuesday. traMADol (ULTRAM) 50 mg tablet Take 1 tablet by mouth every 4 hours as needed for pain (for pain.). acetaminophen (TYLENOL) 325 mg tablet Take 2 tablets by mouth every 6 hours as needed for pain. oseltamivir (TAMIFLU) 30 mg capsule Take 1 capsule by mouth two times a day. Tamiflu emergency Rx. Take upon onset of influenza symptoms and get tested as soon as possible. Allergies, medications, past surgical history, family history and past medical history were reviewed per this encounter. Objective Ortho Exam 68-year-old male pleasant cooperative with exam no acute distress. Evaluation of the right knee shows no significant redness rashes or warmth to touch. X-rays reviewed from prior visit shows severe medial compartment arthritis Assessment/Plan ASSESSMENT Diagnosis (M17.11) Primary osteoarthritis of right knee (primary encounter diagnosis) No orders found for this visit on 03/30/24. PLAN We discussed nonsurgical treatment options. She has not had good results with corticosteroid or Visco supplement injections. We discussed possible referral for radiofrequency ablation of the genicular nerve. She like to try a local genicular nerve block here in the office to see if he gets symptom relief to help better make his decision. Nerve Block: lower extremity 03/30/2024 10:43 AM Body area: lower extremity (knee) Laterality: right Patient position: sitting Location technique: anatomical landmarks Medications: 5 mg lidocaine (PF) 10 mg/mL (1 %) Informed Consent Consent Obtained: Verbal Williamson Protocol A moment to CARE was completed. SIGN IN TIME OUT No relevant labs, photos, and/or imaging studies were applicable for review. Intended patient and procedure match the source document(s). Consent documented and matches the intended procedure. Correct side/site marked and visible. No medications required for procedure. No fire risk assessment and interventions applicable. No implant(s) inserted. SIGN OUT No specimen collected. No instruments, equipment or retained foreign bodies applicable. After injection patient's dates he notes significant relief from pain. Referral for consultation by Dr. Contreras and pain management. FOLLOW-UP: No follow-ups on file. SIGNATURE: Timothy Best DO PATIENT NAME: Belgica Angelo DATE: March 30, 2024 TIME: 10:40 AM * Deedee Medrano MA - 03/30/2024 10:22 AM EST AMB ROOMING INTAKE FLOWSHEET DATA Pain Pain Level: 6 Pain Location: Knee-Right Description: Sharp Duration Amount of Time: (ongoing) Frequency: Continuous Intervention/Comfort measure: Reposition Patient continues with right knee pain. Pain keeps him awake at night. documented in this encounterCommunity [facility]02-13-2025 Telephone encounter Note * Telephone Encounter - Dolores Vu RN - 03/22/2024 10:38 AM EST Spoke with patient advised okay to see dentist for cavity filling. [facility] Miscellaneous Notes* Telephone Encounter - Dolores Vu RN - 03/22/2024 10:38 AM EST Spoke with patient advised okay to see dentist for cavity filling. * Telephone Encounter - Sharon Alcocer - 03/22/2024 10:32 AM EST Patient called to ask if he is able to go to the dentist? He has a filling that he needs to get taken care of . Requesting a return call from the management coordinator. Please call at [phone]. documented in this encounterCommunity [facility]02-13-2025 Telephone encounter Note * Telephone Encounter - Sharon Alcocer - 03/22/2024 10:32 AM EST Patient called to ask if he is able to go to the dentist? He has a filling that he needs to get taken care of . Requesting a return call from the management coordinator. Please call at [phone]. [facility] Work Phone: 1(443) 686-551901-28-2025 Telephone encounter Note* Telephone Encounter - Eileen Cm RPh - 03/06/2024 3:46 PM EST Tacrolimus level was therapeutic at 9.3 (goal 9-12). Current dose is 9/8. Would recommend no changeto current dose. Recheck labs in 1 month. Eileen Cm RP [facility] Work Phone: [phone] Miscellaneous Notes* Telephone Encounter - Eileen Cm RPh - 03/06/2024 3:46 PM EST Tacrolimus level was therapeutic at 9.3 (goal 9-12). Current dose is 9/8. Would recommend no changeto current dose. Recheck labs in 1 month. Eileen Cm RP * Telephone Encounter - Magda Concepcion - 03/06/2024 3:42 PM EST Transplants: 07/20/2022 (Lung) Lab Results Component Value Date FK506 9.3 03/05/2024 CREAT 1.35 (H) 03/05/2024 K 4.9 03/05/2024 WBC 7.95 03/05/2024 ABSNEUT 5.44 03/05/2024 CMVCPY Not detected 03/05/2024 Estimated Creatinine Clearance: 66.2 mL/min (A) (based on SCr of 1.35 mg/dL (H)). tacrolimus IR (PROGRAF) 1 mg capsule Sig: Take 4 capsules by mouth every morning AND 3 capsules every evening. (take with 5 mg capsules for Total dose of 9 mg in the morning and 8 mg in the evening). tacrolimus IR (PROGRAF) 5 mg capsule Sig: Take 1 capsule by mouth two times a day. Take with Tacro 4 mg in am and 3 mg in pm for total dose of 9 mg in am and 8 mg in pm documented in this encounterCommunity [facility]01-28-2025 Telephone encounter Note * Telephone Encounter - Magda Concepcion - 03/06/2024 3:42 PM EST Transplants: 07/20/2022 (Lung) Lab Results Component Value Date FK506 9.3 03/05/2024 CREAT 1.35 (H) 03/05/2024 K 4.9 03/05/2024 WBC 7.95 03/05/2024 ABSNEUT 5.44 03/05/2024 CMVCPY Not detected 03/05/2024 Estimated Creatinine Clearance: 66.2 mL/min (A) (based on SCr of 1.35 mg/dL (H)). tacrolimus IR (PROGRAF) 1 mg capsule Sig: Take 4 capsules by mouth every morning AND 3 capsules every evening. (take with 5 mg capsules for Total dose of 9 mg in the morning and 8 mg in the evening). tacrolimus IR (PROGRAF) 5 mg capsule Sig: Take 1 capsule by mouth two times a day. Take with Tacro 4 mg in am and 3 mg in pm for total dose of 9 mg in am and 8 mg in pm [facility] History of Present illness Narrative* Timothy Best V, DO - 03/02/2024 1:09 PM ESTAssociated Order(s): Large Joint Arthro/Inj: R knee joint Post-Procedure Diagnose(s): Primary osteoarthritis of right knee Images from the original note were not included. SERVICE DATE: March 02, 2024 PCP: Keshav Phillips APRN.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 MANAGER Subjective Patient ID: WH is a 68 year old male. Chief Complaint: No chief complaint on file. PAIN EVALUATION 03/02/2024 1253 Pain Level: 5 Pain Location: Knee-Right Description: Sharp Duration Amount of Time: -- ongoing Frequency: Continuous Intervention/Comfort measure: Other: See comment muscle rubs HPI Mr. Angelo presents today for follow-up of right knee osteoarthritis. Durolane injection to the right knee. States that the knee pain is still significant and compromises his ability to be active. 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) COPD (chronic obstructive pulmonary disease) ([facility]) Dependence on supplemental oxygen No longer neede post transplant Heterozygous alpha 1-antitrypsin deficiency ([facility]) PiMZ Lung nodule Pain in joint, ankle and foot S/P lung transplant ([facility]) PAST SURGICAL HISTORY Procedure Laterality Date LUNG TRANSPLANT,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 PAST SURGICAL HISTORY OF 02/07/2011 Rt foot reconstruction REMV CATARACT EXTRACAP,INSERT LENS REMV CATARACT EXTRACAP,INSERT LENS Right 04/28/2023 SN60WF +20.0 D RPR UMBILICAL HRNA 5 YRS/> REDUCIBLE 07/26/2012 Hernia repair, umbilical >5yr FAMILY HISTORY Problem Relation Age of Onset COPD Mother Heart disease Father Breast Cancer Sister No Known Problems Sister No Known Problems Sister COPD Brother COPD Brother Tuberculosis No Family History Social History Tobacco Use Smoking status: Former Current packs/day: 0.00 Average packs/day: 4.0 packs/day for 30.0 years (120.0 ttl pk-yrs) Types: Cigarettes Start date: 1980 Quit date: 2010 Years since quittin.0 Smokeless tobacco: Never Vaping Use Vaping status: Never Used Substance Use Topics Alcohol use: Never Drug use: Never ALLERGIES Allergen Reactions Nsaids (Non-Steroid* Contraindication-Medical Surgical Patient states he is not allergic to Nsaids- caused upset stomach Penicillins GI Upset Patient states he is not allergic to penicillin- caused upset stomach MEDICATIONS: alendronate (FOSAMAX) 70 mg tablet Take 1 tablet by mouth one time a week. In the morning with a full glass of water, on an empty stomach. Do not take anything else by mouth or lie down for the next 30 minutes. PHOSPHOROUS 250 mg tablet TAKE 1 TABLET BY MOUTH EVERY DAY sertraline (ZOLOFT) 100 mg tablet Take 1 tablet by mouth once daily. sildenafil (VIAGRA) 100 mg tablet Take 1 tablet by mouth once daily as needed. Take 30-60 minutes before sexual activity. tacrolimus IR (PROGRAF) 1 mg capsule Take 4 capsules by mouth every morning AND 3 capsules every evening. (take with 5 mg capsules for Total dose of 9 mg in the morning and 8 mg in the evening). tacrolimus IR (PROGRAF) 5 mg capsule Take 1 capsule by mouth two times a day. Take with Tacro 4 mg in am and 3 mg in pm for total dose of 9 mg in am and 8 mg in pm albuterol (PROVENTIL) 2.5 mg /3 mL (0.083 %) nebulizer solution USE 1 VIAL IN NEBULIZER 4 TIMES DAILY sulfamethoxazole-trimethoprim (BACTRIM DS) 800-160 mg per tablet TAKE 1 TABLET BY MOUTH EVERY TUESDAY,TUESDAY,AND TUESDAY mycophenolate mofetil (CELLCEPT) 250 mg capsule Take 3 capsules by mouth twice daily. magnesium oxide (MAG-OX) 400 mg (241.3 mg magnesium) tablet Take 1 tablet by mouth two times a day. pantoprazole DR (PROTONIX) 20 mg tablet Take 1 tablet by mouth daily at 6 am. atorvastatin (LIPITOR) 10 mg tablet Take 1 tablet by mouth daily at bedtime. azithromycin (ZITHROMAX) 250 mg tablet Take 1 tablet by mouth every Tuesday, Tuesday, and Tuesday. predniSONE (DELTASONE) 5 mg tablet Take 1 tablet by mouth once daily. traMADol (ULTRAM) 50 mg tablet Take 1 tablet by mouth every 4 hours as needed for pain (for pain.). oseltamivir (TAMIFLU) 30 mg capsule Take 1 capsule by mouth two times a day. Tamiflu emergency Rx. Take upon onset of influenza symptoms and get tested as soon as possible. acetaminophen (TYLENOL) 325 mg tablet Take 2 tablets by mouth every 6 hours as needed for pain. Allergies, medications, past surgical history, family history and past medical history were reviewed per this encounter. Objective Ortho Exam 68-year-old male is pleasant cooperative with exam no acute distress. Right knee shows no redness rashes or warmth to touch. Mild effusion noted. Assessment/Plan ASSESSMENT Diagnosis Osteoarthritis right knee No orders found for this visit on 03/02/24. PLAN Large Joint Arthro/Inj: R knee joint Informed Consent Consent Obtained: Verbal Williamson Protocol SIGN IN TIME OUT 03/02/2024 1:10 PM The procedure site was prepped in the usual sterile fashion. Site: R knee joint Medications: 3 mL hyaluronate sodium, stabilized 60 mg/3 mL Anesthetics: 2 mL lidocaine (PF) 10 mg/mL (1 %) Outcome: Tolerated well, no immediate complications Post-injection instructions were reviewed with the patient and the patient voiced understanding of these instructions. FOLLOW-UP: No follow-ups on file. SIGNATURE: Timothy Best DO PATIENT NAME: Belgica Angelo DATE: March 02, 2024 TIME: 1:09 PM * Deedee Medrano MA - 03/02/2024 12:52 PM EST AMB ROOMING INTAKE FLOWSHEET DATA Pain Pain Level: 5 Pain Location: Knee-Right Description: Sharp Duration Amount of Time: (ongoing) Frequency: Continuous Intervention/Comfort measure: Other: See comment (muscle rubs) Patient here today for Durolane injection into the right knee. LOT # [id number] EXP 07/07/2026 Deedee Medrano MA documented in this encounterCommunity [facility]01-[facility]25 Telephone encounter Note * Telephone Encounter - Unique Moulton - 02/21/2024 8:50 AM EST Patient returned call and is scheduled for 03/02/24 at [address] Best [facility] Miscellaneous Notes* Telephone Encounter - Unique Moulton - 02/21/2024 8:50 AM EST Patient returned call and is scheduled for 03/02/24 at [address] Best * Telephone Encounter - Deedee Medrano MA - 02/21/2024 8:28 AM EST Patient has been authorized for Durolane injection into the right knee until 02/06/2025. I called and left a message for the patient to reach out to the office to get scheduled. * Telephone Encounter - Deedee Medrano MA - 02/06/2024 3:03 PM EST Referral entered for Durolane injection as mentioned in last office note. * Telephone Encounter - Unique Moulton - 02/06/2024 2:43 PM EST Spouse is calling back to arrange appt for rt knee injection. Please advise spouse or patient once approved. documented in this encounterCommunity [facility]01-14-2025 Telephone encounter Note * Telephone Encounter - Deedee Medrano MA - 02/21/2024 8:28 AM EST Patient has been authorized for Durolane injection into the right knee until 02/06/2025. I called and left a message for the patient to reach out to the office to get scheduled. [facility] Telephone encounter Note* Telephone Encounter - Shira Escobar RN - 02/14/2024 3:05 PM EST Reviewed labs with [facility]. Patient advised no changes in medication and will have labs repeatedon 03/12. [facility] Miscellaneous Notes* Telephone Encounter - Shira Escobar RN - 02/14/2024 3:05 PM EST Reviewed labs with Justin Cm. Patient advised no changes in medication and will have labs repeatedon 03/12. * Telephone Encounter - Eileen Cm RPh - 02/14/2024 3:00 PM EST Tacrolimus level was therapeutic at 11.5 (goal 9-12). Current dose is 9/8. Would recommend no change to current dose. Recheck labs in 1 month. Eileen Cm varinder Transplants: 07/20/2022 (Lung) Lab Results Component Value Date FK506 11.5 02/13/2024 CREAT 1.39 (H) 02/13/2024 K 4.9 02/13/2024 WBC 7.96 02/13/2024 ABSNEUT 5.67 02/13/2024 CMVCPY Not detected 02/13/2024 Estimated Creatinine Clearance: 64.3 mL/min (A) (based on SCr of 1.39 mg/dL (H)). documented in this encounterCommunity [facility] Hospital01-07-2025 Telephone encounter Note * Telephone Encounter - Eileen Cm RPh - 02/14/2024 3:00 PM EST Tacrolimus level was therapeutic at 11.5 (goal 9-12). Current dose is 9/8. Would recommend no change to current dose. Recheck labs in 1 month. Eileen Cm RPh Transplants: 07/20/2022 (Lung) Lab Results Component Value Date FK506 11.5 02/13/2024 CREAT 1.39 (H) 02/13/2024 K 4.9 02/13/2024 WBC 7.96 02/13/2024 ABSNEUT 5.67 02/13/2024 CMVCPY Not detected 02/13/2024 Estimated Creatinine Clearance: 64.3 mL/min (A) (based on SCr of 1.39 mg/dL (H)). [facility] Work Phone: [phone] Instructions* Patient Instructions* Ashley Jin PA-C - 02/10/2024 12:05 PM EST Alendronate (Fosamax) Take once weekly. Take first thing in the morning without any other medications, food or drink except for water. Take it standing up with a full glass of water. Do not eat or drink anything for 30 minutes including your medication. Do not lay down after taking it, but you can sit down. ' documented in this encounterCommunity [facility] Hospital01-03-2025 History of Present illness Narrative* Ashley Jin PA-C - 02/10/2024 11:52 AM EST Images from the original note were not included. Osteoporosis and Metabolic Bone Disease Date of Service: 02/10/2024 Patient: Belgica Angelo Medical Record: [id number] Primary Care Physician: Keshav Phillips APRN.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 MANAGER Last Rheumatology visit: 11/10/2023 (with Ashley Jin) History of Present Illness Belgica Angelo is a 68 year old White male who presents on 02/10/2024 for a telephone visit for evaluation of Osteopenia. Patient unable to connect via zoom for appointment. Provided verbal consent to conduct visit via telephone. I have communicated my name and active licensure. The patient's identity and physical location were verified at the time of this visit. 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 No new fractures or falls. No planned dental procedures. 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 Link to FRAX Website RAPID 3 [facility] Activities of Daily Living 02/10/2024 11:42 AM Dress self? Without ANY difficulty Get in and out of bed? Without ANY difficulty Walk outdoors? Without ANY difficulty Wash and dry body? Without ANY difficulty Get in and out of car? Without ANY difficulty Tobacco Use Former; Cigarettes: 1980 - 2010; Smoked an average of 4.0 packs/day for 30.0 years Smokeless Tobacco: Never used smokeless tobacco. Vaping Use Never used Alcohol Use Never. TREATMENT HISTORY Osteoporosis - Antiresorptive Treatments Treatment Start Date Stop Date Stop Reason Comment None Osteoporosis - Anabolic Treatments Treatment Start Date Stop Date Stop Reason Comment None History of Radiation: No RISK FACTORS Osteoporosis FRAX Risk Factors Fracture(s) (Comment: Finger and toes) No family history of osteoporosis No parent with a hip fracture Not a current smoker (Comment: Quit in 2009) Glucocorticoid use (Comment: Daily prednisoen since 07/2022. Current and usual dose is 5 mg daily.) Current use No rheumatoid arthritis No alcohol use more than 3 units per day Osteoporosis Medication Risk Factors Furosemide Proton pump inhibitor Osteoporosis Disease-Specific Risk Factors Weight is not less than 127 lbs Height loss 1 inch normal balance No fall history No history of eating disorders No history of renal calculi Chronic kidney disease Caffeine intake: 1-3 c/day Exercise routine: no regular exercise program BONE DENSITY RESULTS Last Bone Density DXA-AXIAL SKELETON WITH VFA Exam End: 01/19/2024 8:24 AM (Final result) Narrative: * * *Final Report* * * DATE OF EXAM: Jan 19 2024 8:24AM [facility] [place] 0802 - BD VFA WITH DXA - AXIAL SKELETON / PROCEDURE REASON: multiple diagnoses * * * * Physician Interpretation * * * * EXAMINATION: DXA BONE DENSITOMETRY BD DXA TRABECLR BONE SCORE (TBS), BD VFA WITH DXA - AXIAL SKELETON PATIENT DEMOGRAPHICS: Age: 68 years, Gender: Male SCANNER INFORMATION: DXA Model: A[employer] (S/N: [id number]) Date Scanned: 01/19/2024 8:24 AM CLINICAL HISTORY: DIAGNOSTIC 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 RISK FACTORS FOR OSTEOPOROSIS AND ASSOCIATED FRACTURES REPORTED BY THIS PATIENT: Please refer to Bone Health Questionnaire in the EMR CURRENT THERAPY: Please refer to Bone Health Questionnaire in the EMR TECHNICAL LIMITATIONS: Degenerative disease of the spine RESULTS: Lumbar Spine (L1, L2, L3, L4): Total BMD: 1.440, T-score: 1.8, Z-score: 1.6 Lumbar spine: 2022: 1.436 g/cm2 No statistically significant change Right Femoral Neck: 0.866 g/cm2, T-score -1.6, Z-score -0.9 Right Femoral Neck: 2022: 0.871 g/cm2 No statistically significant change Right Total Hip: 0.891 g/cm2 , T-score -1.5, Z-score -1.3 Right Total Hip: 2022: 0.885 g/cm2 No statistically significant change Left Femoral Neck: 0.867 g/cm2, T-score -1.6, Z-score -0.9 Left Femoral Neck: 2022: 0.890 g/cm2 No statistically significant change Left Total Hip: 0.925 g/cm2, T-score -1.2, Z-score -1.1 Left Total Hip: 2022: 0.933 g/cm2 No statistically significant change CHANGE IS STATISTICALLY SIGNIFICANT IN THE SPINE OR HIP IF GREATER THAN OR EQUAL TO 0.04 g/cm2 VERTEBRAL FRACTURE ASSESSMENT Indication for VFA: organ transplant Levels visualized: T5-L5 Results: No fracture identified Presence of a single vertebral fracture increases subsequent global fracture risk, multiple fractures significantly increase fracture risk. TRABECULAR BONE ASSESSMENT TBS score: 1.455 Bone micro-architecture: normal (> 1.310) Impression: IMPRESSION: THE LOWEST T-SCORE IS -1.6 IN THE RIGHT AND LEFT HIPS 1) DIAGNOSIS (based on BMD alone): OSTEOPENIA Caution: Medical conditions other than osteoporosis may cause low bone density, such as osteomalacia or renal osteodystrophy. Clinical correlation is necessary. 2) FRACTURE RISK (Based on TBS adjusted FRAX): 10-year absolute fracture risk: - major osteoporotic fracture =7.6 % - hip fracture = 1.3 % - A diagnosis of Osteoporosis, a 10 year probability of hip fracture greater than or equal to 3% or a 10 year probability of any major osteoporosis-related fracture greater than or equal to 20% should be considered for treatment. - DXA scanner generated FRAX calculations may slightly differ from online FRAX calculations due to differences in software versions. - All recommendations and calculations are to be considered as guidelines and should not replace sound clinical judgement - Caution: Fracture risk may be increased independent of BMD in patients with corticosteroid use, age greater than 65 years, or a history of prior fragility fracture. RECOMMENDATIONS: Follow-up in 2 years or as clinically indicated. Patients that are taking corticosteroids, are transplant recipients or have hyperparathyroidism should have annual follow-up. Follow-up scans should always be done on the same machine for accurate comparison. FOR MORE INFORMATION ABOUT DIAGNOSIS AND TREATMENT: [facility] Metabolic Bone Disease:? www.ccf.org/arthritis/osteo National Osteoporosis Foundation:? www.nof.org International Society of Clinical Densitometry www.iscd.org Hydropress Operator: [id number] Transcribe Date/Time: Jan 19 2024 9:29A Dictated by : BULMARO CHANDRA MD This examination was interpreted and the report reviewed and electronically signed by: BULMARO CHANDRA MD on Jan 19 2024 10:25AM EST BONE DENSITY RESULTS: EXTERNAL Patient-Entered Data PAIN EVALUATION No data found in the last 1 encounters. PROMIS Assessments 03/17/2022 07/16/2022 02/10/2024 PROMIS Assessments Physical Health Percentile 22 10 Mental Health Percentile 9 Pain Score 5 3 Pain Interference Percentile 7 Fatigue Percentile 21 Physical Function Percentile 4 [facility] Activities of Daily Living 02/10/2024 11:42 AM Dress self? Without ANY difficulty Get in and out of bed? Without ANY difficulty Walk outdoors? Without ANY difficulty Wash and dry body? Without ANY difficulty Get in and out of car? Without ANY difficulty RAPID 3 Disease Activity Weighed Score Levels: 0 - 1: Near Remission 1.3 - 2.0: Low Severity 2.3 - 4.0: Moderate Severity 4.3 - 10.0: High Severity 02/10/2024 RAPID-3 Weighed Score RAPID 3 Weighed Score 1.11 (Minimal to no symptoms) PHQ-9 0 - 4: Minimal Depression 5 - 9: Mild Depression 10 - 14: Moderate Depression 15 - 19: Moderately Severe Depression 20 - 27: Severe Depression 07/11/2023 PHQ-9 PHQ-2 Score 0 Review of Systems Review of Systems CONSTITUTION: Negative for: Fever HEENT: Negative for: Nosebleeds, Mouth sores, Trouble swallowing and Dry mouth RESPIRATORY: Negative for: Cough, Shortness of breath and Pain with breathing GASTROINTESTINAL: Negative for: Melena, Diarrhea, Heartburn and Abdominal pain MUSCULOSKELETAL: Positive for: Arthralgias, Myalgias, Muscle weakness and Morning Joint Stiffness Negative for: Joint swelling NEUROLOGICAL: Negative for: Headaches, Numbness and Memory loss SKIN: Negative for: Rash, Skin changes, Hair loss and Nail changes EYES: Negative for: Eye pain CARDIOVASCULAR: Negative for: Chest pain and Leg swelling GENITOURINARY: Negative for: Dysuria and Hematuria HEMATOLOGIC/LYMPHATIC: Negative for: Swollen glands Jaw pain: No All other reviewed and negative other than HPI. Past Medical History PAST MEDICAL HISTORY Diagnosis Date Asthma Bronchiectasis ([facility]) COPD (chronic obstructive pulmonary disease) ([facility]) Dependence on supplemental oxygen No longer neede post transplant Heterozygous alpha 1-antitrypsin deficiency ([facility]) PiMZ Lung nodule Pain in joint, ankle and foot S/P lung transplant ([facility]) Past Surgical History PAST SURGICAL HISTORY Procedure Laterality Date LUNG TRANSPLANT,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 PAST SURGICAL HISTORY OF 02/07/2011 Rt foot reconstruction REMV CATARACT EXTRACAP,INSERT LENS REMV CATARACT EXTRACAP,INSERT LENS Right 04/28/2023 SN60WF +20.0 D RPR UMBILICAL HRNA 5 YRS/> REDUCIBLE 07/26/2012 Hernia repair, umbilical >5yr Family History FAMILY HISTORY Problem Relation Age of Onset COPD Mother Heart disease Father Breast Cancer Sister No Known Problems Sister No Known Problems Sister COPD Brother COPD Brother Tuberculosis No Family History Social History Social History Tobacco Use Smoking status: Former Current packs/day: 0.00 Average packs/day: 4.0 packs/day for 30.0 years (120.0 ttl pk-yrs) Types: Cigarettes Start date: 1980 Quit date: 2011 Years since quittin.0 Smokeless tobacco: Never Vaping Use Vaping status: Never Used Substance Use Topics Alcohol use: Never Drug use: Never Current Medications Present Osteoporosis Medications: Current Antiresorptive Medications Bone Resorption Inhibitors - Bisphosphonates Start End alendronate (FOSAMAX) 70 mg tablet 02/10/2024 05/10/2024 Sig - Route: Take 1 tablet by mouth one time a week. In the morning with a full glass of water, on an empty stomach. Do not take anything else by mouth or lie down for the next 30 minutes. - ORAL Current Outpatient Medications Medication Sig alendronate (FOSAMAX) 70 mg tablet Take 1 tablet by mouth one time a week. In the morning with a full glass of water, on an empty stomach. Do not take anything else by mouth or lie down for the next 30 minutes. PHOSPHOROUS 250 mg tablet TAKE 1 TABLET BY MOUTH EVERY DAY sertraline (ZOLOFT) 100 mg tablet Take 1 tablet by mouth once daily. sildenafil (VIAGRA) 100 mg tablet Take 1 tablet by mouth once daily as needed. Take 30-60 minutes before sexual activity. tacrolimus IR (PROGRAF) 1 mg capsule Take 4 capsules by mouth every morning AND 3 capsules every evening. (take with 5 mg capsules for Total dose of 9 mg in the morning and 8 mg in the evening). tacrolimus IR (PROGRAF) 5 mg capsule Take 1 capsule by mouth two times a day. Take with Tacro 4 mg in am and 3 mg in pm for total dose of 9 mg in am and 8 mg in pm albuterol (PROVENTIL) 2.5 mg /3 mL (0.083 %) nebulizer solution USE 1 VIAL IN NEBULIZER 4 TIMES DAILY oseltamivir (TAMIFLU) 30 mg capsule Take 1 capsule by mouth two times a day. Tamiflu emergency Rx. Take upon onset of influenza symptoms and get tested as soon as possible. sulfamethoxazole-trimethoprim (BACTRIM DS) 800-160 mg per tablet TAKE 1 TABLET BY MOUTH EVERY TUESDAY,TUESDAY,AND TUESDAY mycophenolate mofetil (CELLCEPT) 250 mg capsule Take 3 capsules by mouth twice daily. magnesium oxide (MAG-OX) 400 mg (241.3 mg magnesium) tablet Take 1 tablet by mouth two times a day. pantoprazole DR (PROTONIX) 20 mg tablet Take 1 tablet by mouth daily at 6 am. atorvastatin (LIPITOR) 10 mg tablet Take 1 tablet by mouth daily at bedtime. azithromycin (ZITHROMAX) 250 mg tablet Take 1 tablet by mouth every Tuesday, Tuesday, and Tuesday. predniSONE (DELTASONE) 5 mg tablet Take 1 tablet by mouth once daily. traMADol (ULTRAM) 50 mg tablet Take 1 tablet by mouth every 4 hours as needed for pain (for pain.). acetaminophen (TYLENOL) 325 mg tablet Take 2 tablets by mouth every 6 hours as needed for pain. No current facility-administered medications for this visit. Labs Latest Ref Rng & Units 11/10/2023 12/05/2023 12/26/2023 01/19/2024 Calcium Calcium 8.5 - 10.2 mg/dL 9.3 9.2 9.5 9.0 Latest Ref Rng & Units 11/10/2023 12/05/2023 12/26/2023 01/19/2024 Alkaline Phosphatase Alkaline Phosphatase 38 - 113 U/L 153 124 139 131 Alkaline Phosphatase 38 - 113 U/L 153 124 139 131 Latest Ref Rng & Units 04/13/2021 TSH TSH 0.270 - 4.200 mIU/L 0.478 Latest Ref Rng & Units 02/24/2022 12/05/2023 Vitamin D Vitamin D 25 Hydroxy 31.0 - 80.0 ng/mL 15.5 21.1 Latest Ref Rng & Units 11/10/2023 12/05/2023 12/26/2023 01/19/2024 Creatinine Creatinine 0.73 - 1.22 mg/dL 2.30 1.54 1.27 1.74 Latest Ref Rng & Units 11/10/2023 12/05/2023 12/26/2023 01/19/2024 Protein, Total Protein, Total 6.3 - 8.0 g/dL 6.4 6.2 6.6 6.1 Latest Ref Rng & Units 11/10/2023 12/05/2023 12/26/2023 01/19/2024 Albumin Albumin 3.9 - 4.9 g/dL 4.3 4.2 4.3 4.3 Latest Ref Rng & Units 04/13/2021 PTH PTH, Intact 15 - 65 pg/mL 50 Latest Ref Rng & Units 07/17/2022 07/19/2022 07/21/2022 07/30/2022 Hepatitis Screen Hep B Core Ab, Total Negative Negative Negative Hep B Surf Ab Qual Positive Positive Positive Hep C Antibody IA Negative Negative Negative Negative Negative Hep B Surface Ag Negative Negative Negative Negative Negative Imaging Last XR Lumbar Spine - Impression Only No resulted procedures found. Last XR Thoracic Spine - Impression Only No resulted procedures found. Last CT Lumbar Spine - Impression Only No resulted procedures found. Last CT Thoracic Spine - Impression Only No resulted procedures found. Last MRI Lumbar Spine - Impression Only No resulted procedures found. Last MRI Thoracic Spine - Impression Only No resulted procedures found. Health Maintenance BP Controlled (<130/80) Never done Covid-19 Vaccine( season) due on 01/05/2024 Advance Directive Discussion due on 02/08/2024 Meningococcal Conjugate Vaccine(1 - Risk 2-dose series) due on 07/10/2024 Depression Screening due on 07/10/2024 Anxiety Screening due on 07/10/2024 Colorectal Cancer Screening due on 07/17/2024 Lung Cancer Screening due on 11/09/2024 Annual PCP Team Chronic Disease Visit due on 01/02/2025 Diabetes Screening due on 01/18/2027 Lipid Screening due on 01/18/2029 Prostate Cancer Screening Discussion due on 01/18/2029 DTaP,Tdap,Td Vaccine(2 - Td or Tdap) due on 04/14/2031 Alpha-1 Antitrypsin Deficiency Screening Completed Spirometry Completed Influenza Vaccine Completed RSV Vaccine Completed Hepatitis C Screening Completed Shingrix Vaccine Completed Pneumococcal Vaccine: 50+ Completed HPV Vaccine Aged Out Abdominal Aortic Aneurysm Screening Discontinued Physical Exam Telephone visit. 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 Patient has never been treated for low bone mass. Calcium intake is adequate with supplement. Vitamin D is inadequate. Osteoporosis FRAX Risk Factors Fracture(s) (Comment: Finger and toes) No family history of osteoporosis No parent with a hip fracture Not a current smoker (Comment: Quit in 2009) Glucocorticoid use (Comment: Daily prednisoen since 07/2022. 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 Discussed RBA of Fosamax. Patient is agreeable. Calcium 1200 to 1500 mg daily recommended- continue supplement. Continue vitamin D supplement. Weight bearing exercise as tolerated recommended. Fall precautions discussed. Repeat bmd on same machine as prior around 01/2025. Continued f/u with PCP for routine health maintenance advised. Orders this visit: [facility] on 02/10/24 alendronate (FOSAMAX) 70 mg tablet Return in about 3 months (around 05/10/2024). I spent a total of 9 minutes on the date of the service which included counseling and educating thepatient/family/caregiver. Ashley Jin PA-C Date: February 10, 2024 [facility] encounter Note * Telephone Encounter - Deedee Medrano MA - 02/06/2024 3:03 PM EST Referral entered for Durolane injection as mentioned in last office note. [facility] Telephone encounter Note* Telephone Encounter - Unique Moulton - 02/06/2024 2:43 PM EST Spouse is calling back to arrange appt for rt knee injection. Please advise spouse or patient once approved. [facility] History of Present illness Narrative* Nick Saravia, Research Coordinator - 01/19/2024 9:54 AM ESTSummary: IRB # [id number] [facility] Belgica Angelo is here for IRB # [id number] [facility] Visit # V8 Belgica Angelo is here for 18 months post transplant visit. Subject was met in [facility] lab to obtain 5 tubes of blood with their clinical blood draw and a urine sample. Next visit is due at 24 monthsmonths post transplant. Blood sample obtained? Yes Urine sample obtained? Yes Bronchoscopy sample obtained? No; patient is 1+ year post-transplant, bronchoscopy is unlikely to occur unless for-cause Nick Saravia, Research Coordinator Subject to continue in trial documented in [facility]Community [facility] History of Present illness Narrative* Yvonne Oviedo RT(R) - 01/19/2024 9:30 AM EST Radiology Service Progress Note PATIENT NAME: Belgica Angelo DATE OF SERVICE: January 19, 2024 TIME: 8:11 AM PATIENT IDENTITY VERIFICATION COMPLETED USING TWO (2) IDENTIFIERS: Name and Date of confirmedby patient verbally. FALL SCREENING: Has the patient had 2 falls in the last year or 1 fall with injury or currently using an Ambulatory Assistive Device (Walker, Cane, Wheelchair, Crutches, etc.)? No PATIENT GENDER DATA: Male PATIENT RELEVANT IMPLANT DATA REVIEWED: Not Applicable PATIENT PRESENTS WITH AN IMPLANTABLE OR ATTACHED CURATOR NATURAL HISTORY MUSEUM: No RADIOLOGY DEPARTMENT: Bone Density PERIPHERAL IV DATA: Not applicable SIGNED BY: RT Umer(R) January 19, 2024 8:11 AM documented in this encounterCommunity [facility] History of Present illness Narrative* Ousmane Shah RRT - 01/19/2024 9:05 AM EST PULM FUNCTION: Provider: Osbaldo Magallanes MD Spirometry: 1 System: 4 - [id number] documented in this encounterCommunity [facility]12[facility] History of Present illness Narrative* Shira Holloway RT(R) - 01/19/2024 8:45 AM EST Radiology Service Progress Note PATIENT NAME: Belgica Angelo DATE OF SERVICE: January 19, 2024 TIME: 7:50 AM PATIENT IDENTITY VERIFICATION COMPLETED USING TWO (2) IDENTIFIERS: Name and Date of confirmedby patient verbally. FALL SCREENING: Has the patient had 2 falls in the last year or 1 fall with injury or currently using an Ambulatory Assistive Device (Walker, Cane, Wheelchair, Crutches, etc.)? No PATIENT GENDER DATA: Male PATIENT RELEVANT IMPLANT DATA REVIEWED: Not Applicable PATIENT PRESENTS WITH AN IMPLANTABLE OR ATTACHED CURATOR NATURAL HISTORY MUSEUM: No RADIOLOGY DEPARTMENT: General X-ray: Exam(s) Completed: Chest X-Ray PERIPHERAL IV DATA: Not applicable SIGNED BY: RT Alyce([place]) January 19, 2024 7:50 AM documented in this encounterCommunity [facility]12-[facility] History of Present illness Narrative* Juliet Barrientos MA - 01/18/2024 2:00 PM EST PT ASSESSMENT - CASTING ROOM Belgica presents for Application of brace. Applied DonJoy OA reaction medial corporate associate attorney knee brace size large to Right knee Patient has been instructed in Care and proper application of brace. Patient signed DonHellen PPA electronically for billing and verbalized understanding. Juliet Barrientos MA * Timothy Best V, DO - 01/18/2024 1:14 PM EST Images from the original note were not included. SERVICE DATE: January 18, 2024 PCP: Keshav Phillips APRN.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 MANAGER Subjective Patient ID: DI is a 68 year old male. Chief Complaint: Patient presents with: Right Knee Pain PAIN EVALUATION 01/18/2024 1255 Pain Level: 7 Pain Location: Knee-Right Description: Aching;Sharp Duration Amount of Time: 6 Duration Units: Months Frequency: Continuous Intervention/Comfort measure: -- None HPI Mr. Angelo presents today for right medial knee pain x 6 months. States there was no specific injury to the knee recently. He has pain along the inside aspect of the knee when he tries to stand and walk. He has tried [id number] bracing and topical medications with minimal improvement. He has had bilateral lung transplant so he has significant limitations to medications that he is able to take for arthritic pain. He avoids NSAIDs because of this. 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) Dependence on supplemental oxygen No longer neede post transplant Heterozygous alpha 1-antitrypsin deficiency (HCC) PiMZ Lung nodule Pain in joint, ankle and foot S/P lung transplant ([facility]) PAST SURGICAL HISTORY Procedure Laterality Date LUNG TRANSPLANT,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 PAST SURGICAL HISTORY OF 02/07/2011 Rt foot reconstruction REMV CATARACT EXTRACAP,INSERT LENS REMV CATARACT EXTRACAP,INSERT LENS Right 04/28/2023 SN60WF +20.0 D RPR UMBILICAL HRNA 5 YRS/> REDUCIBLE 07/26/2012 Hernia repair, umbilical >5yr FAMILY HISTORY Problem Relation Age of Onset COPD Mother Heart disease Father Breast Cancer Sister No Known Problems Sister No Known Problems Sister COPD Brother COPD Brother Tuberculosis No Family History Social History Tobacco Use Smoking status: Former Current packs/day: 0.00 Average packs/day: 4.0 packs/day for 30.0 years (120.0 ttl pk-yrs) Types: Cigarettes Start date: 1980 Quit date: 2010 Years since quittin.9 Smokeless tobacco: Never Vaping Use Vaping status: Never Used Substance Use Topics Alcohol use: Never Drug use: Never ALLERGIES Allergen Reactions Nsaids (Non-Steroid* Contraindication-Medical Surgical Patient states he is not allergic to Nsaids- caused upset stomach Penicillins GI Upset Patient states he is not allergic to penicillin- caused upset stomach MEDICATIONS: sertraline (ZOLOFT) 100 mg tablet Take 1 tablet by mouth once daily. sildenafil (VIAGRA) 100 mg tablet Take 1 tablet by mouth once daily as needed. Take 30-60 minutes before sexual activity. tacrolimus IR (PROGRAF) 1 mg capsule Take 4 capsules by mouth every morning AND 3 capsules every evening. (take with 5 mg capsules for Total dose of 9 mg in the morning and 8 mg in the evening). tacrolimus IR (PROGRAF) 5 mg capsule Take 1 capsule by mouth two times a day. Take with Tacro 4 mg in am and 3 mg in pm for total dose of 9 mg in am and 8 mg in pm albuterol (PROVENTIL) 2.5 mg /3 mL (0.083 %) nebulizer solution USE 1 VIAL IN NEBULIZER 4 TIMES DAILY oseltamivir (TAMIFLU) 30 mg capsule Take 1 capsule by mouth two times a day. Tamiflu emergency Rx. Take upon onset of influenza symptoms and get tested as soon as possible. sulfamethoxazole-trimethoprim (BACTRIM DS) 800-160 mg per tablet TAKE 1 TABLET BY MOUTH EVERY TUESDAY,TUESDAY,AND TUESDAY mycophenolate mofetil (CELLCEPT) 250 mg capsule Take 3 capsules by mouth twice daily. phosphorus (K PHOS NEUTRAL) 250 mg tablet Take 1 tablet by mouth two times a day. magnesium oxide (MAG-OX) 400 mg (241.3 mg magnesium) tablet Take 1 tablet by mouth two times a day. pantoprazole DR (PROTONIX) 20 mg tablet Take 1 tablet by mouth daily at 6 am. atorvastatin (LIPITOR) 10 mg tablet Take 1 tablet by mouth daily at bedtime. azithromycin (ZITHROMAX) 250 mg tablet Take 1 tablet by mouth every Tuesday, Tuesday, and Tuesday. predniSONE (DELTASONE) 5 mg tablet Take 1 tablet by mouth once daily. traMADol (ULTRAM) 50 mg tablet Take 1 tablet by mouth every 4 hours as needed for pain (for pain.). acetaminophen (TYLENOL) 325 mg tablet Take 2 tablets by mouth every 6 hours as needed for pain. Allergies, medications, past surgical history, family history and past medical history were reviewed per this encounter. Objective Ortho Exam 68-year-old male is pleasant cooperative exam in no acute distress. Evaluation of the right knee shows no significant effusion. There is tenderness with palpation over the medial joint line. There issome crepitus with range of motion testing. There is no redness rashes or warmth to touch. X-ray reviewed with patient and his shows significant medial compartment narrowing of the right knee. Assessment/Plan ASSESSMENT Diagnosis medial compartment arthritis right knee Office Visit on 01/18/24 CONSULT TO ORTHOPAEDICS PLAN Discussed options for treatment. Due to patient's underlying medical condition and being on immunosuppressant drugs for bilateral lung transplant, options are limited. Recommend a medial corporate associate attorney brace for the knee. We also discussed the option of Visco supplement injection which would need prior authorization and approval from his transplant team. If approved, I would recommend Durolane injection to the right knee. FOLLOW-UP: No follow-ups on file. SIGNATURE: Timothy Best DO PATIENT NAME: Belgica Angelo DATE: January 18, 2024 TIME: 1:14 PM * Juliet Barrientos MA - 01/18/2024 12:51 PM EST Patient presents with: Right Knee Pain AMB ROOMING INTAKE FLOWSHEET DATA Pain Pain Level: 7 Pain Location: Knee-Right Description: Aching, Sharp Duration Amount of Time: 6 Duration Units: Months Frequency: Continuous Intervention/Comfort measure: (None) Patient states he is having medial knee pain. Has difficulty going up and down steps. Referred by Keshav Phillips. X-rays done on 01/03/24. [facility] History of Present illness Narrative* Osbaldo Magallanes MD - 01/12/2024 11:36 AM EST DI Angelo is a 68 year old male s/p Bilateral Sequential Lung Transplant with Dr. Juarez on 07/20/2022 for COPD / A1AT, here for follow up. Donor with Risk Factor Labs: none 1-2 Mo 08/19/22 DUE: HBV viral DNA: not detected HCV Quant RNA: not detected HIV RNA viral load: 10/04/22 DOS 07/19/22: HBV viral DNA: not detected, HepBsAb: positive, HCV Quant RNA: not detected, HIV Ag/Ab: nonreactive Pre- Tx. 07/17/22: HBV viral DNA: not detected, HepBsAb: positive, HCV Quant RNA: not detected, HepCab: , HIV Ag/Ab: nonreactive MEDICAL HISTORY: COPD Bronchiectasis A1AT on augmentation therapy (proteinase inhibitor once/week) lung nodules neuropathy right foot SURGICAL HISTORY right foot hernia repair EXPLANT PATHOLOGY: FINAL DIAGNOSIS A-B. Left and right lungs, explant pneumonectomies: - Centrilobular emphysema. - Patchy organizing pneumonia with focal giant cells reaction. - Benign reactive hilar lymph nodes. C-D. Left and right donor lungs, upper lobes, wedge resections: - Small arteries with early, organizing thrombi. - No specific pathologic diagnosis. CFF/mm/07/23/2022 POST TRANSPLANT EVENTS: CMV: Donor: Negative / Recipient: Positive EBV: Donor: Negative / Recipient: Positive PGD Scores: Score T 0 = Grade 1 Score T12 = Grade 1 Score T24 = Grade 1 Score T48 = Grade 1 Score T72 = Grade 1 07/20/22 Transplanted 07/21: extubated 07/22: ID consult +streptococcus on recipient swab; transferred to [facility] 07/25: Pain, hallucinations improved. Dizzy, hypotensive w/ BP 80s/50s, high chest tube output, 500mL NSB given. 07/26: Orthostatic hypotension, 80s/50s. IVF. Repeat lactate 2.8 after 1 L IV NS. Started on midodrine. 07/28: Pain improved, continues on epidural. Persistent orthostasis, start mestinon. EKG w/ stable QTc, start SOPHIA ppx. 07/29: Hypotensive (BP 63/37), dizzy while sitting up in chair, CMET activated, BP stabilized to 117/53 w/ 500mL NSB & holding epidural. Increase mestinon dosing. Conferred w/ APMS - transition to oral pain regimen. Epidural removed. 07/30: Give dose of IVIG for hypogam. 07/31: Improvement of pain with blocks. IVIG stopped overnight due to facial flushing and redness on arm. Improvement of leukocytosis; remains on IV Zosyn. 08/02: Left large bore CT removed. Transitioned to oral pain regimen. 08/03: Pain site of former L large bore CT. CXR w/ 2 tiny pneumothoraces on right. Placed blakes x suction. 08/06: Deemed safe for discharge. Desaturation study performed- did not qualify for oxygen. Discharged with bilateral ana drains to bulb suction with follow up appointment with CTS requested. Tacrolimus level was 12.1 on 3mg in AM and 2.5mg in PM. Scheduled for lung transplant clinic on 08/11/22 with 3 week surveillance bronchoscopy scheduled for 08/13/22. BRONCHOSCOPY: 11/18/23: A0B0 1 year 07/21/23 A0B0 + for one colony of Aspergillus niger 9 mo: 04/20/23 A0B0 6 mo: 01/19/23: AXBX 3 mo: 10/21/22: A0B0 6 wk: 09/03/22: A0B0 3 wk: 08/13/22: A0B0 DONOR SPECIFIC ANTIBODY (DSA): 01/19/24: PENDING 07/21/23: No Donor specific HLA antibody was detected in the 07/21/2023 Post-Tx sample. Previous DSA to allelic DQ2 (DQB1*02:01, DQA*05:01) declined to negative. 04/20/23: Donor specific HLA antibody to allelic DQ2 (DQB1*02:01, DQA*05:01) was detected. MFI values appear to be declining. 01/11/23: Donor specific HLA antibody to DQ2 was detected in the 01/10/2023 Post-Tx sample. MFI values appear to be stable, possibly increasing. 11/08/22: Donor specific HLA antibody to allelic DQ2 (DQB1*02:01, DQA*05:01) was detected in the 11/08/2022 Post-Tx sample. MFI values appear to be increasing. 10/21/22: Donor specific HLA antibody to allelic DQ2 (DQB1*02:01, DQA1*05:01) was detected in the 10/21/2022 Post-Tx sample. MFI values appear to be declining over time. 10/04/22: Donor specific HLA antibody to allelic DQ2 (DQB1*02:01, DQA1*05:01) was detected in the 10/04/2022 Post-Tx sample. MFI values appear to be stable. 09/01/22: Donor specific HLA antibody to allelic DQ2 (DQB1*02:01, DQA1*05:01) was detected 08/11/22: No Donor specific HLA antibody was detected 07/30/22: No Donor specific HLA antibody was detected ALLERGIES: Allergen Reactions Nsaids (Non-Steroid* Contraindication-Medical Surgical Penicillins Upset stomach CURRENT MEDICATIONS: Current Outpatient Medications Medication Sig sertraline (ZOLOFT) 100 mg tablet Take 1 tablet by mouth once daily. tacrolimus IR (PROGRAF) 1 mg capsule Take 4 capsules by mouth every morning AND 3 capsules every evening. (take with 5 mg capsules for Total dose of 9 mg in the morning and 8 mg in the evening). tacrolimus IR (PROGRAF) 5 mg capsule Take 1 capsule by mouth two times a day. Take with Tacro 4 mg in am and 3 mg in pm for total dose of 9 mg in am and 8 mg in pm albuterol (PROVENTIL) 2.5 mg /3 mL (0.083 %) nebulizer solution USE 1 VIAL IN NEBULIZER 4 TIMES DAILY sulfamethoxazole-trimethoprim (BACTRIM DS) 800-160 mg per tablet TAKE 1 TABLET BY MOUTH EVERY TUESDAY,TUESDAY,AND TUESDAY mycophenolate mofetil (CELLCEPT) 250 mg capsule Take 3 capsules by mouth twice daily. phosphorus (K PHOS NEUTRAL) 250 mg tablet Take 1 tablet by mouth two times a day. magnesium oxide (MAG-OX) 400 mg (241.3 mg magnesium) tablet Take 1 tablet by mouth two times a day. pantoprazole DR (PROTONIX) 20 mg tablet Take 1 tablet by mouth daily at 6 am. atorvastatin (LIPITOR) 10 mg tablet Take 1 tablet by mouth daily at bedtime. azithromycin (ZITHROMAX) 250 mg tablet Take 1 tablet by mouth every Tuesday, Tuesday, and Tuesday. predniSONE (DELTASONE) 5 mg tablet Take 1 tablet by mouth once daily. traMADol (ULTRAM) 50 mg tablet Take 1 tablet by mouth every 4 hours as needed for pain (for pain.). acetaminophen (TYLENOL) 325 mg tablet Take 2 tablets by mouth every 6 hours as needed for pain. sildenafil (VIAGRA) 100 mg tablet Take 1 tablet by mouth once daily as needed. Take 30-60 minutes before sexual activity. oseltamivir (TAMIFLU) 30 mg capsule Take 1 capsule by mouth two times a day. Tamiflu emergency Rx. Take upon onset of influenza symptoms and get tested as soon as possible. No current facility-administered medications for this visit. NEW COMPLAINTS: Patient here for 2 month follow up visit in conjunction with BMD. Patient had bronch on 11/18/23 with A0B0 and NGTD. Patient had 1 year bronch last visit which was + for one colony of Aspergillus niger. Patient was not treated and saw ID who agrees with not starting an antifungal therapy Patient presents today walking and on RA. Patient endorses occasional cough with clear sputum. Denies wheezing or SOB at rest. Some SONG. Afebrile. Patient not doing any formal exercise due to right knee with arthritis/bone on bone. Currently wearing knee brace. MD wants to give a Durolane injection. Home Spirometry readings not monitored recently due to machine not working. PFTs today stable since last visit, FEV1 2.69. Home BP 120-130s/70-80s and HR 80-90s. Today BP 143/79 and HR 88. Currently on no BP medications. Denies chest pain, palpitations, or BLE edema. Appetite is good. Eats 3 meals a day. Weight today increased 3 lbs since last visit. Denies nausea,vomiting or ROMEO symptoms. Patient taking Protonix for reflux prevention. Moving bowels daily, denies diarrhea. Tremors worse. Sleep is okay, approximately 8 hours a night. Patient is now more forgetfull. Patient is doing well with medications and routine with his . ID: CMV: Donor: Negative / Recipient: Positive EBV: Donor: Negative / Recipient: Positive. Currently on Valcyte STOPPED AT 1 YEAR, Voriconazole 200 mg completed, Ambisome 25mg completed, and Bactrim DS every Tuesday, Tuesday and Tuesday. Taking Azithromycin 250 mg and Atorvastatin 10 mg daily. REVIEW OF SYSTEMS: GENERAL:3 lb weight gain, no malaise or fevers HEENT: Negative for frequent or significant headaches, No changes in hearing or vision, no nose bleeds or other nasal problems NECK: Negative for lumps, goiter, pain and significant neck swelling RESPIRATORY: Negative for hemoptysis, wheezing, COPD, + cough with clear sputum, SONG CARDIOVASCULAR: Negative for chest pain, leg swelling, hypertension, CHF or palpitations GI: No nausea, vomiting, or diarrhea : No history of dysuria, frequency or incontinence MUSCULOSKELETAL: Negative for joint pain or swelling, back pain or muscle pain SKIN: Negative for lesions, rash, and itching PSYCH: Negative for sleep disturbance, mood disorder and recent psychosocial stressors HEMATOLOGY/LYMPHOLOGY: Negative for prolonged bleeding, bruising easily or swollen nodes ENDOCRINE: Negative for cold or heat intolerance, polyuria, polydipsia and goiter NEURO: No history of headaches, syncope, paralysis, seizures or tremors PATIENT TRANSPLANT KARNOFSKY INDEX AND LANSKY SCALE 80% - Normal activity with effort: some symptoms of disease. Patient Working? No, on medical disability since 2011 IMMUNIZATIONS: Hep A: 04/13/21; 07/22/21 (11/18/21) positive Hep B: 04/13/21; 07/22/21;02/24/22 (07/17/22) positive Flu vaccine: 11/18/21, 11/08/22, 11/10/23 RSV: 12/05/22 Prevnar 20: 07/22/21 COVID 19 vaccine - Moderna ( 12/12/2020, 05/08/2020, 04/10/2020); 11/08/21, 11/08/22, 11/10/23 Shingles: 04/19/2019, 11/16/2018 PPD/TB Quant: 04/13/21 Negative Tetanus booster: 04/13/21 RSV: 12/05/22 HEALTH MAINTENANCE: PSA: 02/24/22 0.18, 11/10/23 0.44 Dermatology - 11/15/22 frozen spots on top of head, and back will schedule locally COLONOSCOPY: 01/30/13 ([facility]) Rectal mucosa normal. Grade 1 internal hemorrhoids. Ileum normal, mucosal and submucosal vascular patter throughout the colon was normal. No polyp or mass identified, no inflammatory changes. 07/18/23 1 polyp removed BONE DENSITY: 11/29/22 scheduled 01/19/24 IMPRESSION: THE LOWEST T-SCORE IS -1.5 IN THE RIGHT HIP 1) DIAGNOSIS (based on BMD alone): OSTEOPENIA ENDO CONSULT: 11/10/23 scheduled 02/10/24 VV Due to CKD, bisphosphonate is not recommended at this time. Update labs, pending results will recommend treatment. Calcium 1200 to 1500 mg daily recommended- if cannot achieve this through diet, then supplement recommended in divided doses. Weight bearing exercise as tolerated recommended. Fall precautions discussed. Repeat bmd on same machine as prior. POST-TRANSPLANT GERD STUDIES: ESOPHAGRAM - 11/12/22 IMPRESSION: NORMAL ESOPHAGEAL EMPTYING. ESOPHAGEAL MANOMETRY- 08/16/22 Impressions EGJOO with spasm and hypercontractile esophagus, consistent with type III achalasia. Correlate clinically with timed barium esophagram, EGD, and symptoms of dysphagia. Spastic segment is 14 cm above the LES. pH PROBE- 08/25/22 Interpretations Normal study OFF PPI therapy with acid exposure time of 0.1%. Symptom association was negative to cough. GASTRIC EMPTYING- 08/19/22 IMPRESSION: NORMAL RATE OF GASTRIC EMPTYING OF SOLID MEAL PRE-TRANSPLANT GERD STUDIES: ESOPHAGEAL MONOMETRY: 07/22/21 Interpretation / Findings LES: Normal resting pressure, complete relaxation Body of the esophagus (supine): --7 swallows with normal peirstalsis --3 swallows with hypertensive peristalsis PH PROBE: 07/22/21 Normal study. GASTRIC EMPTYIN07/23/21 NORMAL RATE OF GASTRIC EMPTYING OF SOLID MEAL. PULMONARY FUNCTION TESTING: Date 01/19/24 FVC (L) 3.29 2.94 3.94 4.96 83 FEV1 (L) 2.69 2.21 3.02 3.77 89 BEH07-08 (L/sec) 2.44 1.13 2.51 4.43 97 Time (sec) 5.07 Date 11/10/23 FVC (L) 3.21 2.95 3.95 4.96 81 FEV1 (L) 2.69 2.22 3.02 3.78 89 DNS16-54 (L/sec) 2.52 1.14 2.52 4.44 100 Time (sec) 4.21 FVC (L) 3.28 2.95 3.95 4.97 82 Date 07/21/23 FVC (L) 3.28 2.95 3.95 4.97 82 FEV1 (L) 2.92 2.23 3.03 3.79 96 FIVC (L) 3.06 VED10-52 (L/sec) 3.49 1.15 2.53 4.46 137 Time (sec) 3.32 Date 04/20/23 FVC (L) 3.10 2.96 3.96 4.98 78 FEV1 (L) 2.86 2.23 3.04 3.80 94 AZF64-22 (L/sec) 3.26 1.16 2.55 4.47 127 Time (sec) 2.78 Date 01/19/23 <-- Reviewed by Dr. Magallanes and discussed with patient FVC (L) 2.93 2.96 3.97 4.99 73 FEV1 (L) 2.73 2.24 3.05 3.81 89 EBY39-90 (L/sec) 3.41 1.17 2.56 4.49 133 Time (sec) 3.07 Date 11/29/22 FVC (L) 2.89 2.97 3.97 4.99 72 FEV1 (L) 2.67 2.24 3.05 3.81 87 XQD87-45 (L/sec) 3.12 1.17 2.57 4.50 121 Time (sec) 2.91 Date 10/21/22 FVC (L) 2.80 3.05 4.09 5.14 68 FEV1 (L) 2.70 2.30 3.13 3.91 86 AUF06-28 (L/sec) 4.53 1.20 2.62 4.58 173 Time (sec) 2.05 Date 10/04/22 FVC 2.85 3.06 4.09 5.14 69 FEV1 2.70 2.30 3.13 3.91 86 EEA67-38 4.59 1.20 2.62 4.59 175 Time 3.21 Date 09/01/22 FVC (L) 2.50 3.06 4.09 5.14 61 FEV1 (L) 2.37 2.31 3.14 3.92 75 BBL04-57 (L/sec) 4.02 1.20 2.62 4.59 153 Time (sec) 2.18 Date [id number] FVC (L) 2.26 3.06 4.09 5.14 55 FEV1 (L) 2.19 2.31 3.14 3.92 69 QZK07-04 (L/sec) 5.58 1.20 2.62 4.59 212 Time (sec) 1.90 Date 08/18/22 FVC (L) 2.23 3.06 4.09 5.14 54 FEV1 (L) 2.11 2.31 3.14 3.92 67 OZX55-09 (L/sec) 3.40 1.20 2.63 4.59 129 Time (sec) 2.35 Date: 08/11/22 FVC (L) 2.31 3.06 4.09 5.14 56 FEV1 (L) 1.95 2.31 3.14 3.92 62 XUJ29-74 (L/sec) 1.83 1.21 2.63 4.60 69 Time (sec) 4.59 Date: 06/02/22 Pre-Transplant FVC (L) 2.76 3.26 4.34 5.44 63 FEV1 (L) 0.81 2.45 3.32 4.14 24 ARU19-22 (L/sec) 0.24 1.21 2.64 4.61 9 Time (sec) 14.94 PORTIONS OF THIS NOTE WERE TAKEN FROM NOTE DATED 11/10/23. ALL THE INFORMATION BY THE RN / 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 MANAGER HAS BEEN CONFIRMED, REVIEWED AND VERIFIED BY ME. CXR 01/19/24 <-- Reviewed by Dr. Magallanes and discussed with patient No interval change Recent Labs 01/19/24 0722 WBC 7.57 HB 10.8* HCT 35.3* PLT 271 NA 142 K 4.8 CHLOR 107 CO2 23 BUN 32* CREAT 1.74* GLUC 99 CA 9.0 MG 2.2 Recent Labs 01/19/24 0722 TPROT 6.1* ALB 4.3 ALT 14 AST 16 ALKPHOS 131* TBILI 0.5 No results for input(s): FK506 in the last 168 hours. PHYSICAL EXAMINATION: BP 143/79 Pulse 88 Temp 36.3 C (97.4 F) Resp 14 Ht 177.8 cm (5' 10) Wt 111.1 kg (245 lb) SpO2 96% BMI 35.15 kg/m General appearance: Well appearing, alert, in no acute distress, well-hydrated, well nourished. andMorbidly obese Skin: Skin color, texture, turgor normal, no suspicious rashes or lesions Head: Normocephalic, no masses, lesions, tenderness or abnormalities Eyes: Anicteric sclera. Pupils are equally round and reactive to light. Extraocular movements are intact. Ears: External ears normal, canals clear Nose/Sinuses: Nares normal, septum midline, mucosa normal, no drainage or sinus tenderness Oropharynx: Lips, mucosa, and tongue normal, teeth and gums normal, oropharynx normal Neck: Supple, no adenopathy; thyroid symmetric, normal size, no bruits Back: Normal exam Lungs: Lungs clear to auscultation. No wheezing, rhonchi, rales. Heart: RRR without murmur, gallop, or rubs. No ectopy Abdomen: Normal abdominal exam, Abdomen soft, non-tender. Bowel sounds normal. No masses, organomegaly Extremities: No deformities, edema, skin discoloration, clubbing or cyanosis. Good capillary refill. Musculoskeletal: No joint swelling, deformity, or tenderness Peripheral pulses: Normal Neuro: Gait normal. Reflexes normal and symmetric. Sensation grossly intact. 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 Status Post Cataract Extraction and Insertion of Intraocular Lens of Left Eye Status Post Cataract Extraction and Insertion of Intraocular Lens of Right Eye Obesity, Class II, Bmi 35-39.9 Obesity, Class I, Bmi 30-34.9 PLAN OF CARE Brief staff summary: Since last visit, lung function numbers are similar, imaging is nothing new, and labs are in process # Encounter for aftercare following bilateral 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/22 for COPD - Lung allograft function declining - Continue prednisone 5 mg daily with no change today - Continue Cellcept 750 mg twice daily with no change today - Continue Tacrolimus 3.5 mg every 12 hours - awaiting trough level today to guide possible dose adjustment for goal trough of 9-12 Current prophylaxes falling under the umbrella of aftercare following lung transplant # Antiviral CMV D-/R+ - Will review appropriateness to continue antiviral but may stop given low risk CMV status # Pneumocystis Prophylaxis - continue Bactrim on M/W/F, actively needed and prescribed by me for prophylaxis # Fungal Prophylaxis - completed # Chronic rejection Prophylaxis - continue azithromycin actively needed and prescribed by me for prophylaxis # Cardiovascular Status - Monitor home BP - Active current and chronic mixed hyperlipidemia with LDL goal <100 managed by me with atorvastatin # Gastrointestinal Status - Active current and chronic gastroesophageal reflux disease without esophagitis managed by me with proton pump inhibition # Endocrine/Bone Status - Active current and chronic steroid induced osteoporosis managed by me with vitamin D, Calcium - Care collaborated with [facility] with Endocrine Bone Health and Diabetes Adult Health groups # Renal Status - Active current and chronic stage 3a renal failure with Estimated Creatinine Clearance: 51.4 mL/min (A) (based on SCr of 1.74 mg/dL (H)). - Based on today's GFR, all renally dosed medications and renal interactions have been accounted for and medications adjusted - Electrolytes have been reviewed, specifics such as HYPERkalemia have been addressed with the coordinator and patient # Hematology/Oncology Status - Active monitoring of drug induced cytopenias/cellular aplasias, medications addressed/adjusted today - Coagulopathy - no - Age-appropriate cancer screening - yes During this patient visit I spent 45 minutes in the visit, with more than 50% of the total duur-tc-eigg time of the visit in counseling / coordination of care. More specifically we discussed the patient's chest x-ray, today's lab results - most importantly immunosuppression levels and have made relevant adjustments to maintain health, wellness and stabilitypost transplant. We have coordinated with patient and consultants all follow up visits. Follow Up: 3 months with routine labs, imaging, and spirometry Osbaldo Magallanes MD Staff Physician [facility], Res[facility] [address] [place] [address], [address] [place], [place] [id number] documented in this encounter[facility] Telephone encounter Note * Telephone Encounter - Devi Robertson MA - 01/09/2024 9:35 AM EST Pt notified and verbalized understanding Devi Robertson MA [facility]12-02-[facility]24 Miscellaneous Notes* Telephone Encounter - Devi Robertson MA - 01/09/2024 9:35 AM EST Pt notified and verbalized understanding Devi Robertson MA * Telephone Encounter - Keshav Phillips APRN.CNP - 01/09/2024 9:01 AM EST Please let patient know his xray shows severe osteoarthrosis, notes bone on bone. [facility] Telephone encounter Note * Telephone Encounter - Keshav Phillips APRN.CNP - 01/09/2024 9:01 AM EST Please let patient know his xray shows severe osteoarthrosis, notes bone on bone. [facility] History of Present illness Narrative* Eloise Jin RT(R) - 01/03/2024 9:30 AM EST Radiology Service Progress Note PATIENT NAME: Belgica Angelo DATE OF SERVICE: January 03, 2024 TIME: 11:51 AM PATIENT IDENTITY VERIFICATION COMPLETED USING TWO (2) IDENTIFIERS: Name and Date of confirmedby patient verbally. FALL SCREENING: Has the patient had 2 falls in the last year or 1 fall with injury or currently using an Ambulatory Assistive Device (Walker, Cane, Wheelchair, Crutches, etc.)? No PATIENT GENDER DATA: Male PATIENT RELEVANT IMPLANT DATA REVIEWED: Not Applicable PATIENT PRESENTS WITH AN IMPLANTABLE OR ATTACHED CURATOR NATURAL HISTORY MUSEUM: No RADIOLOGY DEPARTMENT: General X-ray: Exam(s) Completed: Lower Extremity X- Ray(s): Knee, AP / Lat / Tunne / Merchant Right and Wt. Bearing PERIPHERAL IV DATA: Not applicable SIGNED BY: RT Kulwinder(R) January 03, 2024 11:51 AM documented in this encounterCommunity [facility]11[facility] History of Present illness Narrative* Keshav Phillips APRN.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 MANAGER - 01/03/2024 8:57 AM EST Chief Complaint Patient presents with: Follow Up HPI Belgica Angelo is a 68 year old male who presents here today for Above Complaints.. Patient presents for medication follow up. Patient reports his is concerned about his memory. Also reports right knee pain and swelling for the past couple of months. Past medical history, appointments, medications, allergies reviewed. Previous Medical History PAST MEDICAL HISTORY Diagnosis Date Asthma Bronchiectasis (HCC) COPD (chronic obstructive pulmonary disease) (HCC) Dependence on supplemental oxygen No longer neede post transplant Heterozygous alpha 1-antitrypsin deficiency (HCC) PiMZ Lung nodule Pain in joint, ankle and foot S/P lung transplant (HCC) Previous Surgical History PAST SURGICAL HISTORY Procedure Laterality Date LUNG TRANSPLANT,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 PAST SURGICAL HISTORY OF 02/07/2011 Rt foot reconstruction REMV CATARACT EXTRACAP,INSERT LENS REMV CATARACT EXTRACAP,INSERT LENS Right 04/28/2023 [id number] +20.0 D RPR UMBILICAL HRNA 5 YRS/> REDUCIBLE 07/26/2012 Hernia repair, umbilical >5yr Family History FAMILY HISTORY Problem Relation Age of Onset COPD Mother Heart disease Father Breast Cancer Sister No Known Problems Sister No Known Problems Sister COPD Brother COPD Brother Tuberculosis No Family History Patient Allergies ALLERGIES Allergen Reactions Nsaids (Non-Steroid* Contraindication-Medical Surgical Patient states he is not allergic to Nsaids- caused upset stomach Penicillins GI Upset Patient states he is not allergic to penicillin- caused upset stomach Current Medications Current Outpatient Medications on File Prior to Visit Medication Sig tacrolimus IR (PROGRAF) 1 mg capsule Take 4 capsules by mouth every morning AND 3 capsules every evening. (take with 5 mg capsules for Total dose of 9 mg in the morning and 8 mg in the evening). tacrolimus IR (PROGRAF) 5 mg capsule Take 1 capsule by mouth two times a day. Take with Tacro 4 mg in am and 3 mg in pm for total dose of 9 mg in am and 8 mg in pm albuterol (PROVENTIL) 2.5 mg /3 mL (0.083 %) nebulizer solution USE 1 VIAL IN NEBULIZER 4 TIMES DAILY sertraline (ZOLOFT) 100 mg tablet Take 1 tablet by mouth once daily. sildenafil (VIAGRA) 50 mg tablet Take 1 tablet by mouth once daily as needed. Take 30-60 minutes before sexual activity. oseltamivir (TAMIFLU) 30 mg capsule Take 1 capsule by mouth two times a day. Tamiflu emergency Rx. Take upon onset of influenza symptoms and get tested as soon as possible. sulfamethoxazole-trimethoprim (BACTRIM DS) 800-160 mg per tablet TAKE 1 TABLET BY MOUTH EVERY TUESDAY,TUESDAY,AND TUESDAY mycophenolate mofetil (CELLCEPT) 250 mg capsule Take 3 capsules by mouth twice daily. phosphorus (K PHOS NEUTRAL) 250 mg tablet Take 1 tablet by mouth two times a day. magnesium oxide (MAG-OX) 400 mg (241.3 mg magnesium) tablet Take 1 tablet by mouth two times a day. pantoprazole DR (PROTONIX) 20 mg tablet Take 1 tablet by mouth daily at 6 am. atorvastatin (LIPITOR) 10 mg tablet Take 1 tablet by mouth daily at bedtime. azithromycin (ZITHROMAX) 250 mg tablet Take 1 tablet by mouth every Tuesday, Tuesday, and Tuesday. predniSONE (DELTASONE) 5 mg tablet Take 1 tablet by mouth once daily. traMADol (ULTRAM) 50 mg tablet Take 1 tablet by mouth every 4 hours as needed for pain (for pain.). acetaminophen (TYLENOL) 325 mg tablet Take 2 tablets by mouth every 6 hours as needed for pain. No current facility-administered medications on file prior to visit. Social History Social History Tobacco Use Smoking status: Former Current packs/day: 0.00 Average packs/day: 4.0 packs/day for 30.0 years (120.0 ttl pk-yrs) Types: Cigarettes Start date: 1980 Quit date: 2010 Years since quittin.9 Smokeless tobacco: Never Vaping Use Vaping status: Never Used Substance Use Topics Alcohol use: Never Drug use: Never Review of Symptoms REVIEW OF SYSTEMS SEE HPI EXAM: BP 135/78 Pulse 79 Resp 14 Wt 111.1 kg (245 lb) BMI 35.15 kg/m General Appearance: Well appearing, alert, in no acute distress, well-hydrated, well nourished.. Lungs: Lungs clear to auscultation. No wheezing, rhonchi, rales.. Heart: RRR without murmur, gallop, or rubs. No ectopy. Musculoskeletal: Positive findings: joint location: on right knee swelling, painful movement, loss of ROM, and stiffness. Peripheral Pulses: Normal.. Health Maintenance List BP Controlled (<130/80) Never done Covid-19 Vaccine() due on 01/05/2024 Hepatitis A Vaccine(3 of 3 - Hep A Twinrix risk 3-dose series) due on 07/10/2024 Meningococcal Conjugate Vaccine(1 - Risk 2-dose series) due on 07/10/2024 Depression Screening due on 07/10/2024 Anxiety Screening due on 07/10/2024 Colorectal Cancer Screening due on 07/17/2024 Lung Cancer Screening due on 11/09/2024 Annual PCP Team Chronic Disease Visit due on 11/21/2024 Diabetes Screening due on 12/25/2026 Lipid Screening due on 11/09/2028 Prostate Cancer Screening Discussion due on 11/09/2028 DTaP,Tdap,Td Vaccine(2 - Td or Tdap) due on 04/14/2031 Alpha-1 Antitrypsin Deficiency Screening Completed Spirometry Completed Influenza Vaccine Completed Advance Directive Discussion Completed RSV Vaccine Completed Hepatitis C Screening Completed Shingrix Vaccine Completed Pneumococcal Vaccine: 65+ Completed HPV Vaccine Aged Out Abdominal Aortic Aneurysm Screening Discontinued Data reviewed MINI-MENTAL STATE EXAMINATION (MMSE) Make the patient comfortable and establish rapport. Ask questions in the order listed. Total possible score is 30. ORIENTATION 1. What is the (year) (season) (date) (day) (month)? Max score=5 Patient's score=5 2. Where are we? (state) (county) (town or city) (hospital) (floor)? Max score=5 Patient's score=5 REGISTRATION Ask the patient if you may test his/her memory. Then say the names of 3 unrelated objects, clearly and slowly, about one second for each (eg, apple, table, sangeeta). After you have said all 3, ask him/her to repeat them. This first repetition determines the score(0-3), but keep saying them until he/she can repeat all 3, up to 6 trials. Max score=3 Patient's score=3 ATTENTION AND CALCULATION Ask the patient to begin with 100 and count backwards by 7. Stop after 5 subtractions (93, 86, 79, 72, 65). Score the total number of correct answers. If the patient cannot or will not perform the serial 7s task, ask him/her to spell the word WORLD backwards. The score is the number of letters in the correct order (eg, DLROW=5; DLRW=4; DLORW, DLW=3; OW=2; DRLWO=1). Max score=5 Patient's score=2 RECALL Ask the patient to recall the 3 items repeated above (eg, apple, table, sangeeta). Max score=3 Patient's score=3 LANGUAGE Naming: Show the patient a wristwatch and ask him/her what it is. Repeat for pencil. Max score=2 Patient's score=2 Repetition: Ask the patient to repeat the phrase No ifs, ands, or buts: after you. Max score=1 Patient's score=0 3-Stage Command: Give the patient a piece of blank paper and ask him/her to take a piece of paper in your right hand, fold it in half, put it on the floor. Score 1 point for each part correctly executed. Max score=3 Patient's score=3 Reading: On a blank piece of paper, print the sentence CLOSE YOUR EYES in letters large enough for the patient to see clearly. Ask him/her to read it and do what it says. Score 1 point only if he/sheactually closes his/her eyes. Max score=1 Patient's score=1 Writing: Give the patient a blank piece of paper and ask him/her to write a sentence. Do not dictate a sentence; it is to be written spontaneously. It must contain a subject and verb and be sensible.Correct grammar and punctuation are not necessary. Max score=1 Patient's score=1 Copying: Ask the patient to copy the figure of intersecting pentagons exactly as it is. All 10 angles must be present and 2 must intersect to form a 4-sided figure to score 1 point. Tremor and rotation are ignored. Max score=1 Patient's score=1 MAXIMUM TOTAL SCORE = 30 TOTAL SCORE = 27/30 Suggested guideline for determining the severity of cognitive impairment: Mild: MMSE>21 Moderate: MMSE 10-20 Severe: MMSE<9 Expected decline in MMSE scores in untreated mild to moderate Alzheimer's patient is 2 to 4 points per year. *Adapted from Folstein et al.1 and Ce2. (c) 1974, 1997 [employer] Used withpermission. References: 1. Folstein MF, Folstein SE, [place]. Mini-Mental State: a practical method for grading the cognitive state of patients for the clinician. J Psychiatr Res. 1975; 12:189-198. 2. JR Vicky, Tayla MF, Mini-Mental State Examination (MMSE). Psychopharm Bull. 1988;24:689-692. 3. Dorie JT, Pepe FJ, Pat RD, Carlo A, Ángel F. Neuropsychological function in Alzheimer's disease: pattern of impairment and rates of progression. Arch Neurol. 1988;45:263-268. 4. Stalin JA, Lonnie B,Scot S-P, Joss FRITZ. Predictors of cognitive and functional progression in patients with probable Alzheimer's disease. Neurology. 1992;42:8841-7350. ASSESSMENT/PLAN: 1. Acute pain of right knee - ICD9: 719.46, ICD10: M25.561 (primary diagnosis) - XR KNEE GENERAL 4V AP BOTH/PA BOTH/LAT/MERC RIGHT - CONSULT TO ORTHOPAEDICS 2. JODY (generalized anxiety disorder) - ICD9: 300.02, ICD10: F41.1 - SERTRALINE 100 MG TABLET 3. ED (erectile dysfunction) of organic origin - ICD9: 607.84, ICD10: N52.9 - SILDENAFIL 100 MG TABLET Keshav Phillips APRN.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 MANAGER [facility] Telephone encounter Note * Telephone Encounter - Thomas Correia RN - 12/27/2023 9:38 AM EST Labs reviewed with Dr. Magallanes, Increase Tacro to 9 mg in am and 8 mg in pm. Instructed to have labs drawn on 01/09/24, patient verbalized understanding. The following approved medication requests have been transmitted electronically. Requested Prescriptions Pending Prescriptions Disp Refills tacrolimus IR (PROGRAF) 1 mg capsule 210 capsule 11 Sig: Take 4 capsules by mouth every morning AND 3 capsules every evening. (take with 5 mg capsules for Total dose of 9 mg in the morning and 8 mg in the evening). tacrolimus IR (PROGRAF) 5 mg capsule 60 capsule 11 Sig: Take 1 capsule by mouth two times a day. Take with Tacro 4 mg in am and 3 mg in pm for total dose of 9 mg in am and 8 mg in pm Thomas Correia RN [facility] Miscellaneous Notes* Telephone Encounter - Thomas Correia RN - 12/27/2023 9:38 AM EST Labs reviewed with Dr. Magallanes, Increase Tacro to 9 mg in am and 8 mg in pm. Instructed to have labs drawn on 01/09/24, patient verbalized understanding. The following approved medication requests have been transmitted electronically. Requested Prescriptions Pending Prescriptions Disp Refills tacrolimus IR (PROGRAF) 1 mg capsule 210 capsule 11 Sig: Take 4 capsules by mouth every morning AND 3 capsules every evening. (take with 5 mg capsules for Total dose of 9 mg in the morning and 8 mg in the evening). tacrolimus IR (PROGRAF) 5 mg capsule 60 capsule 11 Sig: Take 1 capsule by mouth two times a day. Take with Tacro 4 mg in am and 3 mg in pm for total dose of 9 mg in am and 8 mg in pm Thomas Correia RN * Telephone Encounter - Salena Christy RPh - 12/27/2023 8:56 AM EST Tacrolimus level was subtherapeutic at 7.1 (goal 9-12). Current dose is 8/8. Would recommend increasing dose to 9/8 . Recheck labs in 2 weeks. Salena Christy, JonahD PGY2 Solid Organ Transplant Fiscal Economist Phone/pager: [phone] * Telephone Encounter - Magda Concepcion - 12/27/2023 8:30 AM EST Transplants: 07/20/2022 (Lung) Lab Results Component Value Date FK506 7.1 12/26/2023 CREAT 1.27 (H) 12/26/2023 K 4.5 12/26/2023 WBC 7.93 12/26/2023 ABSNEUT 5.31 12/26/2023 CMVCPY Not detected 12/26/2023 Estimated Creatinine Clearance: 70.6 mL/min (A) (based on SCr of 1.27 mg/dL (H)). tacrolimus IR (PROGRAF) 1 mg capsule Sig: Take 3 capsules by mouth every morning AND 3 capsules every evening. (take with 5 mg capsules for Total dose of 8mg in the morning/8mg in the evening). tacrolimus IR (PROGRAF) 5 mg capsule Sig: Take 1 capsule by mouth two times a day (with 1 mg capsules to equal 8 mg in the morning and 8mg in the evening) documented in [facility] Telephone encounter Note * Telephone Encounter - Salena Christy RPh - 12/27/2023 8:56 AM EST Tacrolimus level was subtherapeutic at 7.1 (goal 9-12). Current dose is 8/8. Would recommend increasing dose to 9/8 . Recheck labs in 2 weeks. Salena Christy, PharmD PGY2 Solid Organ Transplant Fiscal Economist Phone/pager: [phone] [facility] Telephone encounter Note* Telephone Encounter - Magda Concepcion - 12/27/2023 8:30 AM EST Transplants: 07/20/2022 (Lung) Lab Results Component Value Date FK506 7.1 12/26/2023 CREAT 1.27 (H) 12/26/2023 K 4.5 12/26/2023 WBC 7.93 12/26/2023 ABSNEUT 5.31 12/26/2023 CMVCPY Not detected 12/26/2023 Estimated Creatinine Clearance: 70.6 mL/min (A) (based on SCr of 1.27 mg/dL (H)). tacrolimus IR (PROGRAF) 1 mg capsule Sig: Take 3 capsules by mouth every morning AND 3 capsules every evening. (take with 5 mg capsules for Total dose of 8mg in the morning/8mg in the evening). tacrolimus IR (PROGRAF) 5 mg capsule Sig: Take 1 capsule by mouth two times a day (with 1 mg capsules to equal 8 mg in the morning and 8mg in the evening) [facility] Telephone encounter Note* Telephone Encounter - Shira Escobar RN - 12/06/2023 9:53 AM EDT Reviewed labs with Justin Christy. Patient advised no changes in medication and will have labs repeatedon 01/01. [facility] Miscellaneous Notes* Telephone Encounter - Shira Escobar RN - 12/06/2023 9:53 AM EDT Reviewed labs with Justin Christy. Patient advised no changes in medication and will have labs repeatedon 01/01. * Telephone Encounter - Salena Christy RPh - 12/06/2023 9:42 AM EDT Tacrolimus level was therapeutic at 10.2 (goal 9-12). Current dose is 8/8. Would recommend no change to current dose. Recheck labs in 4 weeks. Salena Christy, PharmD PGY2 Solid Organ Transplant Fiscal Economist Phone/pager: [phone] * Telephone Encounter - Magda Concepcion - 12/06/2023 8:06 AM EDT Transplants: 07/20/2022 (Lung) Lab Results Component Value Date FK506 10.2 12/05/2023 CREAT 1.54 (H) 12/05/2023 K 4.4 12/05/2023 WBC 7.41 12/05/2023 ABSNEUT 5.19 12/05/2023 CMVCPY Not detected 12/05/2023 Estimated Creatinine Clearance: 58.2 mL/min (A) (based on SCr of 1.54 mg/dL (H)). tacrolimus IR (PROGRAF) 1 mg capsule Sig: Take 3 capsules by mouth every morning AND 3 capsules every evening. (take with 5 mg capsules for Total dose of 8mg in the morning/8mg in the evening). tacrolimus IR (PROGRAF) 5 mg capsule 60 capsule Sig: Take 1 capsule by mouth two times a day (with 1 mg capsules to equal 8 mg in the morning and 8mg in the evening) documented in [facility] Telephone encounter Note * Telephone Encounter - Salena Christy RPh - 12/06/2023 9:42 AM EDT Tacrolimus level was therapeutic at 10.2 (goal 9-12). Current dose is 8/8. Would recommend no change to current dose. Recheck labs in 4 weeks. Salena Christy, PharmD PGY2 Solid Organ Transplant Fiscal Economist Phone/pager: [phone] [facility] Telephone encounter Note* Telephone Encounter - Magda Concepcion - 12/06/2023 8:06 AM EDT Transplants: 07/20/2022 (Lung) Lab Results Component Value Date FK506 10.2 12/05/2023 CREAT 1.54 (H) 12/05/2023 K 4.4 12/05/2023 WBC 7.41 12/05/2023 ABSNEUT 5.19 12/05/2023 CMVCPY Not detected 12/05/2023 Estimated Creatinine Clearance: 58.2 mL/min (A) (based on SCr of 1.54 mg/dL (H)). tacrolimus IR (PROGRAF) 1 mg capsule Sig: Take 3 capsules by mouth every morning AND 3 capsules every evening. (take with 5 mg capsules for Total dose of 8mg in the morning/8mg in the evening). tacrolimus IR (PROGRAF) 5 mg capsule 60 capsule Sig: Take 1 capsule by mouth two times a day (with 1 mg capsules to equal 8 mg in the morning and 8mg in the evening) [facility] History of Present illness Narrative* Keshav Phillips APRN.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 MANAGER - 11/22/2023 8:54 AM EDT Chief Complaint Patient presents with: Follow Up HPI Belgica Angelo is a 68 year old male who presents here today for Above Complaints.. Patient presents for medication follow up. Patient was seen 09/19 and started on zoloft for anxiety.Also inquiring about generic viagra. Has taken it in the past but stopped because it was too expensive. Past medical history, appointments, medications, allergies reviewed. Previous Medical History PAST MEDICAL HISTORY Diagnosis Date Asthma Bronchiectasis (HCC) COPD (chronic obstructive pulmonary disease) (HCC) Dependence on supplemental oxygen No longer neede post transplant Heterozygous alpha 1-antitrypsin deficiency (HCC) PiMZ Lung nodule Pain in joint, ankle and foot S/P lung transplant (HCC) Previous Surgical History PAST SURGICAL HISTORY Procedure Laterality Date LUNG TRANSPLANT,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 PAST SURGICAL HISTORY OF 02/07/2011 Rt foot reconstruction REMV CATARACT EXTRACAP,INSERT LENS REMV CATARACT EXTRACAP,INSERT LENS Right 04/28/2023 SN60WF +20.0 D RPR UMBILICAL HRNA 5 YRS/> REDUCIBLE 07/26/2012 Hernia repair, umbilical >5yr Family History FAMILY HISTORY Problem Relation Age of Onset COPD Mother Heart disease Father Breast Cancer Sister No Known Problems Sister No Known Problems Sister COPD Brother COPD Brother Tuberculosis No Family History Patient Allergies ALLERGIES Allergen Reactions Nsaids (Non-Steroid* Contraindication-Medical Surgical Patient states he is not allergic to Nsaids- caused upset stomach Penicillins GI Upset Patient states he is not allergic to penicillin- caused upset stomach Current Medications Current Outpatient Medications on File Prior to Visit Medication Sig sertraline (ZOLOFT) 50 mg tablet Take 1 tablet by mouth once daily. Take 1/2 tab daily for 1 week then increase to 1 tab daily. oseltamivir (TAMIFLU) 30 mg capsule Take 1 capsule by mouth two times a day. Tamiflu emergency Rx. Take upon onset of influenza symptoms and get tested as soon as possible. tacrolimus IR (PROGRAF) 5 mg capsule Take 1 capsule by mouth two times a day (with 1 mg capsules toequal 8 mg in the morning and 8 mg in the evening) tacrolimus IR (PROGRAF) 1 mg capsule Take 3 capsules by mouth every morning AND 3 capsules every evening. (take with 5 mg capsules for Total dose of 8mg in the morning/8mg in the evening). sulfamethoxazole-trimethoprim (BACTRIM DS) 800-160 mg per tablet TAKE 1 TABLET BY MOUTH EVERY TUESDAY,TUESDAY,AND TUESDAY mycophenolate mofetil (CELLCEPT) 250 mg capsule Take 3 capsules by mouth twice daily. phosphorus (K PHOS NEUTRAL) 250 mg tablet Take 1 tablet by mouth two times a day. magnesium oxide (MAG-OX) 400 mg (241.3 mg magnesium) tablet Take 1 tablet by mouth two times a day. pantoprazole DR (PROTONIX) 20 mg tablet Take 1 tablet by mouth daily at 6 am. atorvastatin (LIPITOR) 10 mg tablet Take 1 tablet by mouth daily at bedtime. azithromycin (ZITHROMAX) 250 mg tablet Take 1 tablet by mouth every Tuesday, Tuesday, and Tuesday. predniSONE (DELTASONE) 5 mg tablet Take 1 tablet by mouth once daily. traMADol (ULTRAM) 50 mg tablet Take 1 tablet by mouth every 4 hours as needed for pain (for pain.). acetaminophen (TYLENOL) 325 mg tablet Take 2 tablets by mouth every 6 hours as needed for pain. albuterol (PROVENTIL) 2.5 mg /3 mL (0.083 %) nebulizer solution Use 3 mL via nebulizer every Tuesday,Tuesday,Tuesday. No current facility-administered medications on file prior to visit. Social History Social History Tobacco Use Smoking status: Former Current packs/day: 0.00 Average packs/day: 4.0 packs/day for 30.0 years (120.0 ttl pk-yrs) Types: Cigarettes Start date: 1980 Quit date: 2010 Years since quittin.7 Smokeless tobacco: Never Vaping Use Vaping status: Never Used Substance Use Topics Alcohol use: Never Drug use: Never Review of Symptoms REVIEW OF SYSTEMS SEE HPI EXAM: BP 132/79 Pulse 76 Resp 14 Wt 111.6 kg (246 lb) BMI 35.30 kg/m General Appearance: Well appearing, alert, in no acute distress, well-hydrated, well nourished.. Lungs: Lungs clear to auscultation. No wheezing, rhonchi, rales.. Heart: RRR without murmur, gallop, or rubs. No ectopy. Health Maintenance List BP Controlled (<130/80) Never done Hepatitis A Vaccine(3 of 3 - Hep A Twinrix risk 3-dose series) due on 07/10/2024 Meningococcal Conjugate Vaccine(1 - Risk 2-dose series) due on 07/10/2024 Covid-19 Vaccine( season) due on 01/05/2024 Depression Screening due on 07/10/2024 Anxiety Screening due on 07/10/2024 Colorectal Cancer Screening due on 07/17/2024 Annual PCP Team Chronic Disease Visit due on 09/19/2024 Lung Cancer Screening due on 11/09/2024 Diabetes Screening due on 11/09/2026 Lipid Screening due on 11/09/2028 Prostate Cancer Screening Discussion due on 11/09/2028 DTaP,Tdap,Td Vaccine(2 - Td or Tdap) due on 04/14/2031 Alpha-1 Antitrypsin Deficiency Screening Completed Spirometry Completed Influenza Vaccine Completed Advance Directive Discussion Completed RSV Vaccine Completed Hepatitis C Screening Completed Shingrix Vaccine Completed Pneumococcal Vaccine: 65+ Completed HPV Vaccine Aged Out Abdominal Aortic Aneurysm Screening Discontinued ASSESSMENT/PLAN: 1. ED (erectile dysfunction) of organic origin - ICD9: 607.84, ICD10: N52.9 (primary diagnosis) -Patient provided goodrx card to help with cost. - SILDENAFIL 50 MG TABLET 2. JODY (generalized anxiety disorder) - ICD9: 300.02, ICD10: F41.1 - SERTRALINE 100 MG TABLET Keshav Phillips APRN.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 MANAGER documented [facility] Telephone encounter Note * Telephone Encounter - Shira Escobar RN - 11/21/2023 1:40 PM EDT Advised patient of A0B0 bronch biopsy and BAL negative thus far. Advised patient to have labs repeat on 12/04. [facility] Miscellaneous Notes* Telephone Encounter - Shira Escobar RN - 11/21/2023 1:40 PM EDT Advised patient of A0B0 bronch biopsy and BAL negative thus far. Advised patient to have labs repeat on 12/04. * Telephone Encounter - Gladys Perez - 11/21/2023 1:34 PM EDT Pt called and would like to discuss bronch results with Cat. documented [facility]10[facility] Telephone encounter Note * Telephone Encounter - Gladys Perez - 11/21/2023 1:34 PM EDT Pt called and would like to discuss bronch results with Cat. [facility] Telephone encounter Note* Telephone Encounter - Gayatri Cordero, WILFREDO - 11/14/2023 4:12 PM EDT Spoke to pt. Per chart review he needs a bronch this week. Request placed. [facility] Miscellaneous Notes* Telephone Encounter - Gayatri Cordero RN - 11/14/2023 4:12 PM EDT Spoke to pt. Per chart review he needs a bronch this week. Request placed. * Telephone Encounter - Marnie Carmona - 11/14/2023 3:56 PM EDT Patient called requesting to speak to nurse coordinator. Patient was suppose to get bronch done buthe never received a call to have it set up. [facility] Telephone encounter Note * Telephone Encounter - Marnie Carmona - 11/14/2023 3:56 PM EDT Patient called requesting to speak to nurse coordinator. Patient was suppose to get bronch done buthe never received a call to have it set up. [facility] Telephone encounter Note* Telephone Encounter - Jacobo Molina LPN - 11/11/2023 11:05 AM EDT NOTE: patient is completely out of medication, please send today if possible Prescription Refill Information The patient has been identified by name and date of : Yes Caregiver verified no other encounters exist for this prescription request: Yes Caregiver confirmed with patient/requestor that no other refills are due, in the near future, with this provider at this time: Yes The last office visit in the department: 09/20/23 Does the patient have a future office visit with this provider/department: Yes Requested Prescriptions Pending Prescriptions Disp Refills sertraline (ZOLOFT) 50 mg tablet 60 tablet 0 Sig: Take 1 tablet by mouth once daily. Take 1/2 tab daily for 1 week then increase to 1 tab daily. Jacobo Molina LPN November 11, 2023 11:06 AM [facility] Miscellaneous Notes* Telephone Encounter - Jacobo Molina LPN - 11/11/2023 11:05 AM EDT NOTE: patient is completely out of medication, please send today if possible Prescription Refill Information The patient has been identified by name and date of : Yes Caregiver verified no other encounters exist for this prescription request: Yes Caregiver confirmed with patient/requestor that no other refills are due, in the near future, with this provider at this time: Yes The last office visit in the department: 09/20/23 Does the patient have a future office visit with this provider/department: Yes Requested Prescriptions Pending Prescriptions Disp Refills sertraline (ZOLOFT) 50 mg tablet 60 tablet 0 Sig: Take 1 tablet by mouth once daily. Take 1/2 tab daily for 1 week then increase to 1 tab daily. Jacobo Molina LPN November 11, 2023 11:06 AM * Telephone Encounter - Kaitlyn Lopez - 11/11/2023 11:02 AM EDT Prescription Refill Information The patient has been identified by name and date of : Yes Caregiver verified no other encounters exist for this prescription request: Yes Caregiver confirmed with patient/requestor that no other refills are due, in the near future, with this provider at this time: Yes NOTE: patient is completely out of medication, please send today if possible The last office visit in the department: 09/20/2023 Does the patient have a future office visit with this provider/department: Yes Requested Prescriptions Pending Prescriptions Disp Refills sertraline (ZOLOFT) 50 mg tablet 60 tablet 0 Sig: Take 1 tablet by mouth once daily. Take 1/2 tab daily for 1 week then increase to 1 tab daily. Kaitlyn Canchola November 11, 2023 11:02 AM [facility] Telephone encounter Note * Telephone Encounter - Kaitlyn Lopez - 11/11/2023 11:02 AM EDT Prescription Refill Information The patient has been identified by name and date of : Yes Caregiver verified no other encounters exist for this prescription request: Yes Caregiver confirmed with patient/requestor that no other refills are due, in the near future, with this provider at this time: Yes NOTE: patient is completely out of medication, please send today if possible The last office visit in the department: 09/20/2023 Does the patient have a future office visit with this provider/department: Yes Requested Prescriptions Pending Prescriptions Disp Refills sertraline (ZOLOFT) 50 mg tablet 60 tablet 0 Sig: Take 1 tablet by mouth once daily. Take 1/2 tab daily for 1 week then increase to 1 tab daily. Kaitlyn Canchola November 11, 2023 11:02 AM [facility] Instructions* Patient Instructions* Ashley Jin PA-C - 11/10/2023 3:18 PM EDT Blood work: Please fast starting midnight prior to going to the lab in the morning. Water is acceptable. [facility] in [facility] History of Present illness Narrative* Ashley Jin PA-C - 11/10/2023 3:03 PM EDT Images from the original note were not included. Osteoporosis and Metabolic Bone Disease Date of Service: 11/10/2023 Patient: Belgica Angelo Medical Record: [id number] Primary Care Physician: Keshav Phillips APRN.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 MANAGER Last Rheumatology visit: 11/10/2023 (with Ashley Jin) History of Present Illness Belgica Angelo is a 68 year old White male who presents on 11/10/2023 for an in- person visit for evaluation of Osteopenia. 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 No new fractures or falls. No planned dental procedures. 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 Link to FRAX Website RAPID 3 [facility] Activities of Daily Living No Data Dress self? - Get in and out of bed? - Walk outdoors? - Wash and dry body? - Get in and out of car? - Tobacco Use Former; Cigarettes: 1980 - 2010; Smoked an average of 4.0 packs/day for 30.0 years Smokeless Tobacco: Never used smokeless tobacco. Tobacco Cessation: Counseling given: Not Answered Vaping Use Never used Alcohol Use Never. TREATMENT HISTORY Osteoporosis - Antiresorptive Treatments Treatment Start Date Stop Date Stop Reason Comment None Osteoporosis - Anabolic Treatments Treatment Start Date Stop Date Stop Reason Comment None History of Radiation: No RISK FACTORS Osteoporosis FRAX Risk Factors Fracture(s) (Comment: Finger and toes) No family history of osteoporosis No parent with a hip fracture Not a current smoker (Comment: Quit in 2009) Glucocorticoid use (Comment: Daily prednisoen since 07/2022. Current and usual dose is 5 mg daily.) Current use No rheumatoid arthritis No alcohol use more than 3 units per day Osteoporosis Medication Risk Factors Furosemide Proton pump inhibitor Osteoporosis Disease-Specific Risk Factors Weight is not less than 127 lbs Height loss 1 inch normal balance No fall history No history of eating disorders No history of renal calculi Chronic kidney disease Caffeine intake: 1-3 c/day Exercise routine: no regular exercise program BONE DENSITY RESULTS Last Bone Density DXA-AXIAL SKELETON WITH VFA Exam End: 11/29/2022 8:26 AM (Final result) Narrative: * * *Final Report* * * DATE OF EXAM: Nov 29 2022 8:26AM [facility] 0802 - BD VFA WITH DXA - AXIAL SKELETON / PROCEDURE REASON: * * * * Physician Interpretation * * * * EXAMINATION: DXA BONE DENSITOMETRY BD VFA WITH DXA - AXIAL SKELETON PATIENT DEMOGRAPHICS: Age: 67 years, Gender: Male SCANNER INFORMATION: DXA Model: A21 [employer] (S/N: [id number]) Date Scanned: 11/29/2022 8:26 AM CLINICAL HISTORY: DIAGNOSTIC Lung transplant recipient (HCC) Aftercare following organ transplant Encounter for monitoring tacrolimus therapy Encounter for monitoring tacrolimus therapy. RISK FACTORS FOR OSTEOPOROSIS AND ASSOCIATED FRACTURES REPORTED BY THIS PATIENT: Please refer to Bone Health Questionnaire in the EMR CURRENT THERAPY: Please refer to Bone Health Questionnaire in the EMR TECHNICAL LIMITATIONS: Degenerative disease of the spine RESULTS: Lumbar spine (L1, L2, L3, L4): 1.436 g/cm2, T-score 1.8, Z-score 1.7 Lumbar spine: 2021: 1.361 g/cm2 Statistically significant increase Right Femoral Neck: 0.871 g/cm2, T-score -1.5, Z-score -0.8 Right Total Hip: 0.885 g/cm2, T-score -1.5, Z-score -1.3 Left Femoral Neck: 0.890 g/cm2, T-score -1.4, Z-score -0.7 Left Femoral Neck: 2021: 0.887 g/cm2 No statistically significant change Left Total Hip: 0.933 g/cm2, T-score -1.2, Z-score -0.9 Left Total Hip: 2021: 0.939 g/cm2 No statistically significant change CHANGE IS STATISTICALLY SIGNIFICANT IN THE SPINE OR HIP IF GREATER THAN OR EQUAL TO 0.04 g/cm2 VERTEBRAL FRACTURE ASSESSMENT Indication for VFA: organ transplant Levels visualized: T4- Results: No fracture identified Presence of a single vertebral fracture increases subsequent global fracture risk, multiple fractures significantly increase fracture risk. TRABECULAR BONE ASSESSMENT TBS score: 1.364 Bone micro-architecture: Normal Impression: IMPRESSION: THE LOWEST T-SCORE IS -1.5 IN THE RIGHT HIP 1) DIAGNOSIS (based on BMD alone): OSTEOPENIA Caution: Medical conditions other than osteoporosis may cause low bone density, such as osteomalacia or renal osteodystrophy. Clinical correlation is necessary. 2) FRACTURE RISK (based on FRAX): 10-year absolute fracture risk: - major osteoporotic fracture = 9.6 % - hip fracture = 1.8 % - A diagnosis of Osteoporosis, a 10 year probability of hip fracture greater than or equal to 3% or a 10 year probability of any major osteoporosis-related fracture greater than or equal to 20% should be considered for treatment. - DXA scanner generated FRAX calculations may slightly differ from online FRAX calculations due to differences in software versions. - All recommendations and calculations are to be considered as guidelines and should not replace sound clinical judgement - Caution: Fracture risk may be increased independent of BMD in patients with corticosteroid use, age greater than 65 years, or a history of prior fragility fracture. RECOMMENDATIONS: Follow-up in 2 years or as clinically indicated. Patients that are taking corticosteroids, are transplant recipients or have hyperparathyroidism should have annual follow-up. Follow-up scans should always be done on the same machine for accurate comparison. FOR MORE INFORMATION ABOUT DIAGNOSIS AND TREATMENT: [facility] Osteoporosis and Metabolic Bone Disease:? www.ccf.org/arthritis/osteo National Osteoporosis Foundation:? www.nof.org International Society of Clinical Densitometry www.iscd.org Hydropress Operator: ALBERTO Transcribe Date/Time: Nov 29 2022 9:31A Dictated by : MARILYN CAM MD This examination was interpreted and the report reviewed and electronically signed by: MARILYN CAM MD on Nov 29 2022 9:26PM EST BONE DENSITY RESULTS: EXTERNAL Patient-Entered Data PAIN EVALUATION No data found in the last 1 encounters. PROMIS Assessments 06/24/2021 03/17/2022 07/16/2022 PROMIS Assessments Physical Health Percentile 1 22 10 Mental Health Percentile 2 9 Pain Score 2 5 3 RAPID 3 Mejia Activities of Daily Living No Data Dress self? - Get in and out of bed? - Walk outdoors? - Wash and dry body? - Get in and out of car? - RAPID 3 Disease Activity Weighed Score Levels: 0 - 1: Near Remission 1.3 - 2.0: Low Severity 2.3 - 4.0: Moderate Severity 4.3 - 10.0: High Severity No data to display PHQ-9 0 - 4: Minimal Depression 5 - 9: Mild Depression 10 - 14: Moderate Depression 15 - 19: Moderately Severe Depression 20 - 27: Severe Depression 07/11/2023 PHQ-9 PHQ-2 Score 0 Review of Systems Review of Systems CONSTITUTION: Negative for: Fever and Recent weight change HEENT: Negative for: Trouble swallowing RESPIRATORY: Positive for: Cough Negative for: Shortness of breath GASTROINTESTINAL: Negative for: Heartburn MUSCULOSKELETAL: Positive for: Arthralgias Negative for: Myalgias NEUROLOGICAL: Positive for: Headaches Negative for: Numbness SKIN: EYES: CARDIOVASCULAR: Negative for: Chest pain and Leg swelling GENITOURINARY: HEMATOLOGIC/LYMPHATIC: Jaw pain: No All other reviewed and negative other than HPI. Past Medical History PAST MEDICAL HISTORY Diagnosis Date Asthma Bronchiectasis (HCC) COPD (chronic obstructive pulmonary disease) ([facility]) Dependence on supplemental oxygen No longer neede post transplant Heterozygous alpha 1-antitrypsin deficiency (HCC) PiMZ Lung nodule Pain in joint, ankle and foot S/P lung transplant ([facility]) Past Surgical History PAST SURGICAL HISTORY Procedure Laterality Date LUNG TRANSPLANT,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 PAST SURGICAL HISTORY OF 02/07/2011 Rt foot reconstruction REMV CATARACT EXTRACAP,INSERT LENS REMV CATARACT EXTRACAP,INSERT LENS Right 04/28/2023 SN60WF +20.0 D RPR UMBILICAL HRNA 5 YRS/> REDUCIBLE 07/26/2012 Hernia repair, umbilical >5yr Family History FAMILY HISTORY Problem Relation Age of Onset COPD Mother Heart disease Father Breast Cancer Sister No Known Problems Sister No Known Problems Sister COPD Brother COPD Brother Tuberculosis No Family History Social History Social History Tobacco Use Smoking status: Former Current packs/day: 0.00 Average packs/day: 4.0 packs/day for 30.0 years (120.0 ttl pk-yrs) Types: Cigarettes Start date: 1980 Quit date: 2011 Years since quittin.7 Smokeless tobacco: Never Vaping Use Vaping status: Never Used Substance Use Topics Alcohol use: Never Drug use: Never Current Medications Present Osteoporosis Medications: Current Outpatient Medications Medication Sig oseltamivir (TAMIFLU) 30 mg capsule Take 1 capsule by mouth two times a day. Tamiflu emergency Rx. Take upon onset of influenza symptoms and get tested as soon as possible. tacrolimus IR (PROGRAF) 5 mg capsule Take 1 capsule by mouth two times a day (with 1 mg capsules toequal 8 mg in the morning and 8 mg in the evening) tacrolimus IR (PROGRAF) 1 mg capsule Take 3 capsules by mouth every morning AND 3 capsules every evening. (take with 5 mg capsules for Total dose of 8mg in the morning/8mg in the evening). sulfamethoxazole-trimethoprim (BACTRIM DS) 800-160 mg per tablet TAKE 1 TABLET BY MOUTH EVERY TUESDAY,TUESDAY,AND TUESDAY mycophenolate mofetil (CELLCEPT) 250 mg capsule Take 3 capsules by mouth twice daily. phosphorus (K PHOS NEUTRAL) 250 mg tablet Take 1 tablet by mouth two times a day. magnesium oxide (MAG-OX) 400 mg (241.3 mg magnesium) tablet Take 1 tablet by mouth two times a day. pantoprazole DR (PROTONIX) 20 mg tablet Take 1 tablet by mouth daily at 6 am. atorvastatin (LIPITOR) 10 mg tablet Take 1 tablet by mouth daily at bedtime. azithromycin (ZITHROMAX) 250 mg tablet Take 1 tablet by mouth every Tuesday, Tuesday, and Tuesday. predniSONE (DELTASONE) 5 mg tablet Take 1 tablet by mouth once daily. traMADol (ULTRAM) 50 mg tablet Take 1 tablet by mouth every 4 hours as needed for pain (for pain.). acetaminophen (TYLENOL) 325 mg tablet Take 2 tablets by mouth every 6 hours as needed for pain. albuterol (PROVENTIL) 2.5 mg /3 mL (0.083 %) nebulizer solution Use 3 mL via nebulizer every Tuesday,Tuesday,Tuesday. sertraline (ZOLOFT) 50 mg tablet Take 1 tablet by mouth once daily. Take 1/2 tab daily for 1 week then increase to 1 tab daily. No current facility-administered medications for this visit. Labs Latest Ref Rng & Units 10/03/2023 10/17/2023 10/31/2023 11/10/2023 Calcium Calcium 8.5 - 10.2 mg/dL 9.6 9.1 9.3 9.3 Latest Ref Rng & Units 10/03/2023 10/17/2023 10/31/2023 11/10/2023 Alkaline Phosphatase Alkaline Phosphatase 38 - 113 U/L 142 147 153 153 Alkaline Phosphatase 38 - 113 U/L 142 147 153 153 Latest Ref Rng & Units 04/13/2021 TSH TSH 0.270 - 4.200 mIU/L 0.478 Latest Ref Rng & Units 02/24/2022 Vitamin D Vitamin D 25 Hydroxy 31.0 - 80.0 ng/mL 15.5 Latest Ref Rng & Units 10/03/2023 10/17/2023 10/31/2023 11/10/2023 Creatinine Creatinine 0.73 - 1.22 mg/dL 1.34 1.26 1.71 2.30 Latest Ref Rng & Units 10/03/2023 10/17/2023 10/31/2023 11/10/2023 Protein, Total Protein, Total 6.3 - 8.0 g/dL 6.8 6.4 6.6 6.4 Latest Ref Rng & Units 10/03/2023 10/17/2023 10/31/2023 11/10/2023 Albumin Albumin 3.9 - 4.9 g/dL 4.4 4.3 4.3 4.3 Latest Ref Rng & Units 04/13/2021 PTH PTH, Intact 15 - 65 pg/mL 50 Latest Ref Rng & Units 07/17/2022 07/19/2022 07/21/2022 07/30/2022 Hepatitis Screen Hep B Core Ab, Total Negative Negative Negative Hep B Surf Ab Qual Positive Positive Positive Hep C Antibody IA Negative Negative Negative Negative Negative Hep B Surface Ag Negative Negative Negative Negative Negative Imaging Last XR Lumbar Spine - Impression Only No resulted procedures found. Last XR Thoracic Spine - Impression Only No resulted procedures found. Last CT Lumbar Spine - Impression Only No resulted procedures found. Last CT Thoracic Spine - Impression Only No resulted procedures found. Last MRI Lumbar Spine - Impression Only No resulted procedures found. Last MRI Thoracic Spine - Impression Only No resulted procedures found. Health Maintenance BP Controlled (<130/80) Never done Hepatitis A Vaccine(3 of 3 - Hep A Twinrix risk 3-dose series) due on 07/10/2024 Meningococcal Conjugate Vaccine(1 - Risk 2-dose series) due on 07/10/2024 Covid-19 Vaccine( season) due on 01/05/2024 Depression Screening due on 07/10/2024 Anxiety Screening due on 07/10/2024 Colorectal Cancer Screening due on 07/17/2024 Annual PCP Team Chronic Disease Visit due on 09/19/2024 Lung Cancer Screening due on 11/09/2024 Diabetes Screening due on 11/09/2026 Lipid Screening due on 11/09/2028 Prostate Cancer Screening Discussion due on 11/09/2028 DTaP,Tdap,Td Vaccine(2 - Td or Tdap) due on 04/14/2031 Alpha-1 Antitrypsin Deficiency Screening Completed Spirometry Completed Influenza Vaccine Completed Advance Directive Discussion Completed RSV Vaccine Completed Hepatitis C Screening Completed Shingrix Vaccine Completed Pneumococcal Vaccine: 65+ Completed HPV Vaccine Aged Out Abdominal Aortic Aneurysm Screening Discontinued Physical Exam BP 142/84 Pulse 88 Temp 36.4 C (97.5 F) (Temporal) Ht 177.8 cm (5' 10) Wt 109.8 kg (242 lb) BMI 34.72 kg/m EYES: MILLY, conjunctiva and sclera normal. EARS: External ears normal. NOSE/SINUS: Nares normal. THROAT: Normal and no erythema. DENTAL: Normal HEART: RRR with normal S1 and S2 ,no murmurs, no gallops, no JVD appreciated. LUNGS: Clear to auscultation. NEURO: Awake, alert and oriented x 3. 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 Patient has never been treated for low bone mass. Calcium intake is inadequate. Vitamin D is inadequate. Osteoporosis FRAX Risk Factors Fracture(s) (Comment: Finger and toes) No family history of osteoporosis No parent with a hip fracture Not a current smoker (Comment: Quit in 2009) Glucocorticoid use (Comment: Daily prednisoen since 07/2022. 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 Update labs, pending results will recommend treatment. Calcium 1200 to 1500 mg daily recommended- if cannot achieve this through diet, then supplement recommended in divided doses. Weight bearing exercise as tolerated recommended. Fall precautions discussed. Repeat bmd on same machine as prior. Continued f/u with PCP for routine health maintenance advised. My findings and final recommendations will be communicated to the requesting health care provider by way of the shared medical record for internal providers or letter via the [employer] for external providers. Thank you for allowing me to participate in the care of your patient. Orders this visit: Office Visit on 11/10/23 CREATININE BLD C TELOPEPTIDE, BETA VITAMIN D 25 HYDROXY CALCIUM, TOTAL CONSULT TO ENDO METABOLIC BONE Return in about 3 months (around 02/10/2024) for Virtual Visit. Medical Decision Making: Problems: Moderate: 1+ chronic illnesses with change Data: Unique test result(s) reviewed: 3+ Unique test(s) ordered: 3+ Risk: Low: Low risk from testing/treatment Medical Decision Making Level: 4 - Moderate Ashley Jin PA-C Date: November 10, 2023 [facility] Instructions* Patient Instructions* Anton De Jesus MD - 11/10/2023 1:41 PM EDT Centers for Disease Control and Prevention website: https://www.cdc.gov/healthy-pets/about/index.html This link provides valuable information on keeping yourself healthy if you own or plan to own a pet. It also includes information on diseases pets may carry and how to avoid them. [facility] website: https://consultqd.[facility].org/lhizewc-jeraqspuw-xdt-for-effective- iumnpcivy-efodpgpdax-rjll-transplant This link has helpful information on how you can prevent infections as a transplant recipient Safe living after transplant Prevention of infections by direct contact: hand washing, avoid walking barefoot on the beach, use insect repellent in the summer, gloves for gardening, no piercings or tattoos. Prevention of respiratory illness: hand washing, avoid sick contacts, avoid smoke exposure. Avoid construction sites, birds, plant and soil, chicken coops, caves. No cleaning bird or cat litter. Water safety: no well water, no hot tubs, no drinking water from lakes or swimming pools. Food safety: no soft cheeses, no unpasteurized cheeses, no raw shellfish or fish, no raw eggs, no raw meat, or raw poultry. Peel fruits and vegetables, avoid food sitting outside refrigerator at roomtemperature for a long time. Animal: wash hands after contact, no contact with sick animals, don't pet stray animals, avoid bites or scratches & report immediately to medical care, no reptiles, rodents, kittens, chicks or ducklings, monkeys. No cleaning pets. Travel: evaluation by travel clinic if foreign travel considered. I recommend you also receive the following vaccinations: Trivalent inactivated influenza vaccine high dose (60 mcg of each hemagglutinin per virus) updated formulation every fall Coronavirus disease 2019 vaccine updated formulation every fall Understanding How Vaccines Work: History shows that vaccines are the safest, most effective way to protect yourself and your family from many preventable infections. Adults should get all recommended vaccines for their age or other risk factors such as health condition or occupation. Infections are unpredictable and can have long-term consequences. Even mild or symptom-less infections can be deadly. For example, most people infected with the human papillomavirus never show any sign of infection. But for some, the sign appears years later as an aggressive, life-threatening cancer. By then, it is too late to get vaccinated. Natural immunity results from being infected by a disease-causing organism, whether the infection is symptomatic or not. Vaccine-induced immunity results from being exposed to killed or weakened bacteria or viruses--or even just specific important pieces of them--through vaccination. Patients can acquire immediate passive immunity through antibody-containing blood products derived from human or animal sources but fades within weeks or months. Active (natural from being infected, or vaccine-induced) immunity takes longer to develop but lasts longer than passive immunity. Getting vaccinated is safer than getting sick. Vaccines help the body learn how to defend itself from disease without the dangers of a full-blown infection. The immune response to a vaccine might cause tiredness and discomfort for a day or two, but the resulting protection can last a lifetime. Vaccines work by imitating an infection--the presence of a disease-causing organism in the body--toengage the body's natural defenses. The active ingredient in all vaccines is an antigen, the name for any substance that causes the immune system to begin producing antibodies. In a vaccine, the antigen could be either weakened or killed bacteria or viruses, bits of their exterior surface or genetic material, or bacterial toxin treated to make it non-toxic. Vaccines strengthen the body's natural defenses. To be immune is to be partially or fully resistantto a specific infectious disease or disease-causing organism. A person who is immune can resist thebacteria or viruses that cause a disease, but the protection is never perfect. Because immunity can take weeks to develop after vaccination, it is possible to become infected in the weeks immediately following vaccination. Even after that, vaccinated people can and sometimes doget infected. But a vaccinated person is far less likely to or become seriously ill than someone whose immune system is unprepared to fight an infection. Many vaccines require more than one dose to achieve immunity and provide lasting protection. Live-attenuated vaccines can provide enduring protection with fewer doses than non-live vaccines. However,live-attenuated vaccines could cause a life-threatening infection in someone with a weak or suppressed immune system. Certain vaccines must be updated periodically to protect against mutation-prone viruses, such as influenza and SARS-CoV-2 (COVID-19), that cause waves of infections months or years apart. To stay protected, people must get the updated vaccines even if they got an earlier version. Information about specific vaccines: Influenza (Flu) vaccine (Inactivated or Recombinant): https://www.cdc.gov/vaccines/hcp/vis/vis-statements/flu.pdf Influenza (Flu) vaccine (Live-attenuated, Intranasal): https://www.cdc.gov/vaccines/hcp/vis/vis-statements/flulive.pdf Coronavirus disease 2019 (COVID-19) vaccine information: https://www.cdc.gov/vaccines/covid-19/clini remington-considerations/qyera-13-fjunedto-us.html Respiratory Syncytial Virus (RSV) vaccine: https://www.cdc.gov/vaccines/hcp/vis/vis-statements/rsv.pdf Pneumococcal conjugate vaccine (PCV13, PCV15, and PCV20): https://www.cdc.gov/vaccines/hcp/vis/vis-statements/pcv.pdf Pneumococcal Polysaccharide vaccine (PPSV23): https://www.cdc.gov/vaccines/hcp/vis/vis-statements/ppv.pdf Hepatitis A vaccine: https://www.cdc.gov/vaccines/hcp/vis/vis-statements/hep-a.pdf Hepatitis B vaccine: https://www.cdc.gov/vaccines/hcp/vis/vis-statements/hep-b.pdf Haemophilus influenzae type b (Hib) vaccine: https://www.cdc.gov/vaccines/hcp/vis/vis-statements/hib.pdf Tetanus, Diphtheria, Pertussis (Tdap) vaccine: https://www.cdc.gov/vaccines/hcp/vis/vis-statements/tdap.pdf Tetanus, Diphtheria (Td) vaccine: https://www.cdc.gov/vaccines/hcp/vis/vis-statements/td.pdf Human Papillomavirus (HPV) vaccine: https://www.cdc.gov/vaccines/hcp/vis/vis-statements/hpv.pdf Meningococcal ACWY vaccine: https://www.cdc.gov/vaccines/hcp/vis/vis-statements/mening.pdf Meningococcal B vaccine: https://www.cdc.gov/vaccines/hcp/vis/vis-statements/mening-serogroup.pdf Poliomyelitis (Polio) vaccine: https://www.cdc.gov/vaccines/hcp/vis/vis-statements/ipv.pdf Recombinant zoster (Shingles) vaccine: https://www.cdc.gov/vaccines/hcp/vis/vis-statements/shingles-recombinant.pdf Mumps Measles Rubella live-attenuated vaccine: https://www.cdc.gov/vaccines/hcp/vis/vis-statements/mmr.pdf Varicella (chickenpox) live-attenuated vaccine: https://www.cdc.gov/vaccines/hcp/vis/vis-statements/varicella.pdf Information on travel vaccination requirements and recommendations is available at www.cdc.gov/travel/ For more information on vaccines call 807-NFL-MJQE ([phone]) or visit www.cdc.gov/vaccines. documented in this encounterCommunity [facility] History of Present illness Narrative* Anton De Jesus MD - 11/10/2023 1:10 PM EDT Images from the original note were not included. INFECTIOUS DISEASE OUTPATIENT CONSULT NOTE Patient is seen at the request of Dr. Osbaldo Magallanes for my opinion regarding 1 colony Aspergillus Niger that grew from bronchoalveolar lavage dated 07/21/2023. 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 12 other fungal cultures and Aspergillus galactomannan antigen from bronchoalveolar lavage specimens since transplant have been negative. 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 Azithromycin can cause hearing loss. 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 RECOMMENDATIONS: I discussed what is to be expected, encouraged expression of needs and answered questions in detail. Patient voiced understanding and compliance with the plan of care. I do not recommend antifungal therapy targeting Aspergillus Niger He is up-to-date on immunizations I defer to transplant team regarding weighing risks and benefits of azithromycin in the setting of hearing loss antedating transplant. I personally monitored for antibiotic therapeutic and adverse effects/toxicity. 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 No history of microbial airway colonization. He underwent bilateral lung transplant through clamshell incision on venoarterial extracorporeal membrane oxygenation and donor lungs downsizing with wedge resection of the left upper lobe and right upper lobe 07/20/2022 (CMV -/+, EBV -/+) with methylprednisolone induction immunosuppression followed by maintenance prednisone, tacrolimus & mycophenolate mofetil. IgG level was low 302 on 07/26/2022 and he received intravenous immunoglobulin infusion 1 dose on 07/30/2022. He has been doing well since then. No rejection or opportunistic infections. Surveillance bronchoscopy on 07/21/2023 grew 1 colony Aspergillus Niger. He has not received antifungal therapy targeting this organism. His medical insurance did not approve prophylactic posaconazole at the time of transplant, so he received voriconazole for 3 months per protocol. He has not developed CMV viremia. He completed 1 year prophylactic valganciclovir. 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 He is undergoing bronchoscopy tomorrow. REVIEW OF SYSTEMS: No fever. He intentionally lost weight before transplant and gained back some of that weight after transplant. Hard of hearing for many years antedating transplant. A complete review of systems was performed and all others are negative Exposure History Residence location: Born and lived all his life in [place] Residence setting: [place] Residence water supply: well. He drinks bottled water Travel: [place] service: no Pets or animal exposure: dog. 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 Had one years ago Eating raw or undercooked meat: no Eating raw seafood: no Eating unpasteurized cheese: no Drinking unpasteurized milk: no Gardening: no Hunting: deer; several years ago. Skinning game: yes Swimming in pools: no Significant other exposures: no I reviewed & updated past medical, surgical, social, family, allergy, immunization & medications history in electronic medical records Immunization History Administered Date(s) Administered COVID-19 original vaccine, full dose, monovalent (MODERNA) 04/10/2020 05/08/2020 12/12/2020 COVID-19 vaccine, age 12+ yr (MODERNA) 11/08/2022 COVID-19 vaccine, age 12+ yr (PFIZER-BIONTECH COMIRNATY) 07/21/2023 11/10/2023 COVID-19 vaccine, age 12+ yr, bivalent (Style on Screen-BIONTECH) 11/18/2021 hepatitis A-hepatitis B (HepA-HepB) vaccine (TWINRIX) 04/13/2021 07/22/2021 hepatitis B (HepB) vaccine, 3-dose series, age 20+ yr (ENGERIX-B, RECOMBIVAX HB) 02/24/2022 influenza (HD-IIV3) vaccine, age 65+ yr, high dose, trivalent, PF (FLUZONE HIGH-DOSE) 11/10/2023 influenza (HD-IIV4) vaccine, age 65+ yr, high dose, quadrivalent, PF (FLUZONE HIGH-DOSE) 11/18/2021 influenza (IIV4) vaccine, age 6 mo - 64 yr, quadrivalent (AFLURIA, FLULAVAL, FLUZONE) 12/20/2019 influenza (IIV4) vaccine, age 6 mo - 64 yr, quadrivalent, PF (AFLURIA, FLUARIX, FLULAVAL, FLUZONE) 02/03/2016 influenza (RIV4) vaccine, recombinant, quadrivalent, PF (FLUBLOK) 11/16/2018 11/20/2020 influenza vaccine, unspecified formulation 10/26/2016 pneumococcal conjugate (PCV20) vaccine, 20 valent (PREVNAR 20) 07/22/2021 respiratory syncytial virus (RSV) vaccine, adjuvanted (AREXVY) 12/05/2022 tetanus diphtheria pertussis (Tdap) vaccine, age 7+ yr (ADACEL, BOOSTRIX) 04/13/2021 zoster (RZV) vaccine, recombinant (SHINGRIX) 11/16/2018 04/19/2019 zoster (ZVL) vaccine, live (ZOSTAVAX) 10/26/2016 PHYSICAL EXAMINATION: physical exam was completed in its entirety today and is unchanged from my most recent documentation except where noted I asked patient's permission to conduct the following physical examination and they consented. Patient's was present in the room during today's physical examination BP 142/86 Pulse 90 Temp (Src) 97.9 (Temporal) Resp 16 Wt 244 lb (110.7kg) SpO2 97% GENERAL APPEARANCE: Well. Speaks in full sentences. No cough during the visit. Hard of hearing EYES: Conjunctivae clear OROPHARYNX: No thrush NECK: No lymphadenopathy LUNGS: Clear to auscultation HEART: No murmur ABDOMEN: No palpable mass EXTREMITIES: No axillary adenopathy SKIN: No rash NEURO: Alert and communicates well I reviewed reported results and my personal interpretation of laboratory tests, microbiology tests,pathology reports, imaging films, and other pertinent data with the patient/family member(s) today This note was partially created using voice recognition software and is inherently subject to errors including those of syntax and sound-alike substitutions which may escape proofreading. In such instances, original meaning may be extrapolated by contextual derivation. Anton De Jesus MD, FACP, LIAM TOMAS Staff Physician, Department of Infectious Diseases Section of Transplant Infectious Diseases [facility] Outpatient office hours: Tuesday through Tuesday, 9 AM - 12 PM and 1 PM - 3 PM Pager Toll free: Office phone: [phone] Office fax: [phone] Appointments: [phone] or [phone] Medications refill line (after hours only): [phone] Office address: [address] [place] [address]. [place] [address]. [address]. [address] sales assistant entertainment and media: Kathy Lynn: [phone], [email or web address] court recorder [facility] Electronic copy to Elpidio and lung transplant team Electronic copy to Keshav Phillips APRN.[facility] PCP - General, Family Medicine [phone] documented in this encounterCommunity [facility] Hospital10-03-2024 Instructions* Patient Instructions* Dolores Vu RN - 11/10/2023 11:56 AM EDT BONE MINERAL DENSITY PATIENT INSTRUCTIONS Bone mineral density testing measures the amount of calcium in certain parts of your bones. This information determines how strong your bones are. The test is used to detect osteoporosis, a disease in which the bone's mineral content and density are low, increasing a person's risk of fractures. Thelumbar spine (lower back) and the hip are the skeletal sites usually examined. For the test, remember that: 1. You cannot take this test if you are . 2. Eat a normal diet on the day of the test. 3. Take your medications as you normally would. 4. DO NOT take calcium supplements (such as Tums) for 24 hours before the test. 5. On the day of the test, leave valuables (jewelry or credit cards) at home. 6. The test should be performed prior to oral, rectal or IV contrast studies, or at least 7 days after any of these studies. For the test, you may be asked to wear a hospital gown. You will lie on your back, on a padded table, in a comfortable position. Generally, you can resume your usual activities immediately. documented in this encounterCommunity [facility] Hospital10-03-2024 History of Present illness Narrative* Emily Louis RRT - 11/10/2023 9:15 AM EDT PULM FUNCTION: Provider: Viviane Curtis MD Spirometry: 1 System: 6 - [id number] documented in this encounterCommunity [facility] Hospital10-03-2024 History of Present illness Narrative* Lex Couch RT(R) - 11/10/2023 8:30 AM EDT Radiology Service Progress Note PATIENT NAME: Belgica Angelo DATE OF SERVICE: November 10, 2023 TIME: 9:07 AM PATIENT IDENTITY VERIFICATION COMPLETED USING TWO (2) IDENTIFIERS: Name and Date of confirmedby patient verbally. FALL SCREENING: Has the patient had 2 falls in the last year or 1 fall with injury or currently using an Ambulatory Assistive Device (Walker, Cane, Wheelchair, Crutches, etc.)? No PATIENT GENDER DATA: Male PATIENT RELEVANT IMPLANT DATA REVIEWED: Not Applicable PATIENT PRESENTS WITH AN IMPLANTABLE OR ATTACHED CURATOR NATURAL HISTORY MUSEUM: No RADIOLOGY DEPARTMENT: General X-ray: Exam(s) Completed: Chest X-Ray PERIPHERAL IV DATA: Not applicable SIGNED BY: RT Veronica(R) November 10, 2023 9:07 AM documented in this encounterCommunity [facility] Hospital10-03-2024 History of Present illness Narrative* Natalie Viveros RT(R) - 11/10/2023 7:45 AM EDT Radiology Service Progress Note PATIENT NAME: Belgica Angelo DATE OF SERVICE: November 10, 2023 TIME: 7:38 AM PATIENT IDENTITY VERIFICATION COMPLETED USING TWO (2) IDENTIFIERS: Name and Date of confirmedby patient verbally and Name and Date of confirmed by identification band. FALL SCREENING: Has the patient had 2 falls in the last year or 1 fall with injury or currently using an Ambulatory Assistive Device (Walker, Cane, Wheelchair, Crutches, etc.)? No PATIENT GENDER DATA: Male PATIENT RELEVANT IMPLANT DATA REVIEWED: Yes PATIENT PRESENTS WITH AN IMPLANTABLE OR ATTACHED CURATOR NATURAL HISTORY MUSEUM: No RADIOLOGY DEPARTMENT: CT; Exam(s) Completed: Chest PERIPHERAL IV DATA: Not applicable SIGNED BY: RT Sarita(R) November 10, 2023 7:38 AM documented in this encounterCommunity [facility] Hospital09-25-2024 Telephone encounter Note * Telephone Encounter - Eileen Cm RPh - 11/02/2023 7:52 AM EDT Tacrolimus level was therapeutic at 10.3 (goal 10). Current dose is 8/8. Would recommend no change to current dose. Recheck labs in 1 month. Eileen Cm RPh [facility] Work Phone: [phone] Miscellaneous Notes* Telephone Encounter - Eileen Cm RPh - 11/02/2023 7:52 AM EDT Tacrolimus level was therapeutic at 10.3 (goal 10). Current dose is 8/8. Would recommend no change to current dose. Recheck labs in 1 month. Eileen Cm RPh * Telephone Encounter - Magda Concepcion - 11/01/2023 3:15 PM EDT Transplants: 07/20/2022 (Lung) Lab Results Component Value Date FK506 10.3 10/31/2023 CREAT 1.71 (H) 10/31/2023 K 4.6 10/31/2023 WBC 7.94 10/31/2023 ABSNEUT 5.64 10/31/2023 CMVCPY Not detected 10/31/2023 Estimated Creatinine Clearance: 53.2 mL/min (A) (based on SCr of 1.71 mg/dL (H)). tacrolimus IR (PROGRAF) 1 mg capsule Sig: Take 3 capsules by mouth every morning AND 3 capsules every evening. (take with 5 mg capsules for Total dose of 8mg in the morning/8mg in the evening). tacrolimus IR (PROGRAF) 5 mg capsule Sig: Take 1 capsule by mouth two times a day (with 1 mg capsules to equal 8 mg in the morning and 8mg in the evening) documented in this encounterCommunity [facility] Hospital09-24-2024 Telephone encounter Note * Telephone Encounter - Magda Concepcion - 11/01/2023 3:15 PM EDT Transplants: 07/20/2022 (Lung) Lab Results Component Value Date FK506 10.3 10/31/2023 CREAT 1.71 (H) 10/31/2023 K 4.6 10/31/2023 WBC 7.94 10/31/2023 ABSNEUT 5.64 10/31/2023 CMVCPY Not detected 10/31/2023 Estimated Creatinine Clearance: 53.2 mL/min (A) (based on SCr of 1.71 mg/dL (H)). tacrolimus IR (PROGRAF) 1 mg capsule Sig: Take 3 capsules by mouth every morning AND 3 capsules every evening. (take with 5 mg capsules for Total dose of 8mg in the morning/8mg in the evening). tacrolimus IR (PROGRAF) 5 mg capsule Sig: Take 1 capsule by mouth two times a day (with 1 mg capsules to equal 8 mg in the morning and 8mg in the evening) [facility] History of Present illness Narrative* Osbaldo Magallanes MD - 11/01/2023 2:10 PM EDT ID Angelo is a 68 year old male s/p Bilateral Sequential Lung Transplant with Dr. Juarez on 07/20/2022 for COPD / A1AT, here for follow up. Donor with Risk Factor Labs: none 1-2 Mo 08/19/22 DUE: HBV viral DNA: not detected HCV Quant RNA: not detected HIV RNA viral load: 10/04/22 DOS 07/19/22: HBV viral DNA: not detected, HepBsAb: positive, HCV Quant RNA: not detected, HIV Ag/Ab: nonreactive Pre- Tx. 07/17/22: HBV viral DNA: not detected, HepBsAb: positive, HCV Quant RNA: not detected, HepCab: , HIV Ag/Ab: nonreactive MEDICAL HISTORY: COPD Bronchiectasis A1AT on augmentation therapy (proteinase inhibitor once/week) lung nodules neuropathy right foot SURGICAL HISTORY right foot hernia repair EXPLANT PATHOLOGY: FINAL DIAGNOSIS A-B. Left and right lungs, explant pneumonectomies: - Centrilobular emphysema. - Patchy organizing pneumonia with focal giant cells reaction. - Benign reactive hilar lymph nodes. C-D. Left and right donor lungs, upper lobes, wedge resections: - Small arteries with early, organizing thrombi. - No specific pathologic diagnosis. CFF/mm/07/23/2022 POST TRANSPLANT EVENTS: CMV: Donor: Negative / Recipient: Positive EBV: Donor: Negative / Recipient: Positive PGD Scores: Score T 0 = Grade 1 Score T12 = Grade 1 Score T24 = Grade 1 Score T48 = Grade 1 Score T72 = Grade 1 07/20/22 Transplanted 07/21: extubated 07/22: ID consult +streptococcus on recipient swab; transferred to [facility] 07/25: Pain, hallucinations improved. Dizzy, hypotensive w/ BP 80s/50s, high chest tube output, 500mL NSB given. 07/26: Orthostatic hypotension, 80s/50s. IVF. Repeat lactate 2.8 after 1 L IV NS. Started on midodrine. 07/28: Pain improved, continues on epidural. Persistent orthostasis, start mestinon. EKG w/ stable QTc, start SOPHIA ppx. 07/29: Hypotensive (BP 63/37), dizzy while sitting up in chair, CMET activated, BP stabilized to 117/53 w/ 500mL NSB & holding epidural. Increase mestinon dosing. Conferred w/ APMS - transition to oral pain regimen. Epidural removed. 07/30: Give dose of IVIG for hypogam. 07/31: Improvement of pain with blocks. IVIG stopped overnight due to facial flushing and redness on arm. Improvement of leukocytosis; remains on IV Zosyn. 08/02: Left large bore CT removed. Transitioned to oral pain regimen. 08/03: Pain site of former L large bore CT. CXR w/ 2 tiny pneumothoraces on right. Placed blakes x suction. 08/06: Deemed safe for discharge. Desaturation study performed- did not qualify for oxygen. Discharged with bilateral ana drains to bulb suction with follow up appointment with CTS requested. Tacrolimus level was 12.1 on 3mg in AM and 2.5mg in PM. Scheduled for lung transplant clinic on 08/11/22 with 3 week surveillance bronchoscopy scheduled for 08/13/22. BRONCHOSCOPY: 1 year 07/21/23 A0B0 + for one colony of Aspergillus niger 9 mo: 04/20/23 A0B0 6 mo: 01/19/23: AXBX 3 mo: 10/21/22: A0B0 6 wk: 09/03/22: A0B0 3 wk: 08/13/22: A0B0 DONOR SPECIFIC ANTIBODY (DSA): 11/10/23: PENDING 07/21/23: No Donor specific HLA antibody was detected in the 07/21/2023 Post-Tx sample. Previous DSA to allelic DQ2 (DQB1*02:01, DQA*05:01) declined to negative. 04/20/23: Donor specific HLA antibody to allelic DQ2 (DQB1*02:01, DQA*05:01) was detected. MFI values appear to be declining. 01/11/23: Donor specific HLA antibody to DQ2 was detected in the 01/10/2023 Post-Tx sample. MFI values appear to be stable, possibly increasing. 11/08/22: Donor specific HLA antibody to allelic DQ2 (DQB1*02:01, DQA*05:01) was detected in the 11/08/2022 Post-Tx sample. MFI values appear to be increasing. 10/21/22: Donor specific HLA antibody to allelic DQ2 (DQB1*02:01, DQA1*05:01) was detected in the 10/21/2022 Post-Tx sample. MFI values appear to be declining over time. 10/04/22: Donor specific HLA antibody to allelic DQ2 (DQB1*02:01, DQA1*05:01) was detected in the 10/04/2022 Post-Tx sample. MFI values appear to be stable. 09/01/22: Donor specific HLA antibody to allelic DQ2 (DQB1*02:01, DQA1*05:01) was detected 08/11/22: No Donor specific HLA antibody was detected 07/30/22: No Donor specific HLA antibody was detected ALLERGIES: Allergen Reactions Nsaids (Non-Steroid* Contraindication-Medical Surgical Penicillins Upset stomach CURRENT MEDICATIONS: Current Outpatient Medications Medication Sig oseltamivir (TAMIFLU) 30 mg capsule Take 1 capsule by mouth two times a day. Tamiflu emergency Rx. Take upon onset of influenza symptoms and get tested as soon as possible. tacrolimus IR (PROGRAF) 5 mg capsule Take 1 capsule by mouth two times a day (with 1 mg capsules toequal 8 mg in the morning and 8 mg in the evening) tacrolimus IR (PROGRAF) 1 mg capsule Take 3 capsules by mouth every morning AND 3 capsules every evening. (take with 5 mg capsules for Total dose of 8mg in the morning/8mg in the evening). sulfamethoxazole-trimethoprim (BACTRIM DS) 800-160 mg per tablet TAKE 1 TABLET BY MOUTH EVERY TUESDAY,TUESDAY,AND TUESDAY mycophenolate mofetil (CELLCEPT) 250 mg capsule Take 3 capsules by mouth twice daily. sertraline (ZOLOFT) 50 mg tablet Take 1 tablet by mouth once daily. Take 1/2 tab daily for 1 week then increase to 1 tab daily. phosphorus (K PHOS NEUTRAL) 250 mg tablet Take 1 tablet by mouth two times a day. magnesium oxide (MAG-OX) 400 mg (241.3 mg magnesium) tablet Take 1 tablet by mouth two times a day. pantoprazole DR (PROTONIX) 20 mg tablet Take 1 tablet by mouth daily at 6 am. atorvastatin (LIPITOR) 10 mg tablet Take 1 tablet by mouth daily at bedtime. azithromycin (ZITHROMAX) 250 mg tablet Take 1 tablet by mouth every Tuesday, Tuesday, and Tuesday. predniSONE (DELTASONE) 5 mg tablet Take 1 tablet by mouth once daily. traMADol (ULTRAM) 50 mg tablet Take 1 tablet by mouth every 4 hours as needed for pain (for pain.). acetaminophen (TYLENOL) 325 mg tablet Take 2 tablets by mouth every 6 hours as needed for pain. albuterol (PROVENTIL) 2.5 mg /3 mL (0.083 %) nebulizer solution Use 3 mL via nebulizer every Tuesday,Tuesday,Tuesday. No current facility-administered medications for this visit. NEW COMPLAINTS: Patient here for 3 month follow up visit with CT scan, psych, bone health and ID. Patient had 1 year bronch last visit which was + for one colony of Aspergillus niger. Patient was not treated and is seeing ID today for follow up Patient presents today walking and on RA. Patient endorses cough with clear sputum. Denies wheezingand shortness of breath. Some SONG. Afebrile. Home Spirometry readings not monitored recently due tomBanyanne not working. Go FRANCA readings reviewed by MD and discussed with patient. PFTs today decreased 27% since last visit, FEV1 2.69 compared to 2.92. Patient is walking for exercise. Home BP 110-140/70-80s and HR 90-100. Today BP 142/86 and HR 90. Currently on no BP medications. Denies chest pain, palpitations, or BLE edema. Appetite is good. Eats 3 meals a day. Weight today increased 4 lbs since last visit. Denies nausea,vomiting or ROMEO symptoms. Patient taking Protonix for reflux prevention. Moving bowels daily, denies diarrhea. Tremors improving. Sleep is okay, approximately 6 hours a night. Patient is doing well with medications and routine with his . ID: CMV: Donor: Negative / Recipient: Positive EBV: Donor: Negative / Recipient: Positive. Currently on Valcyte STOPPED AT 1 YEAR, Voriconazole 200 mg completed, Ambisome 25mg completed, and Bactrim DS every Tuesday, Tuesday and Tuesday. Taking Azithromycin 250 mg and Atorvastatin 10 mg daily. REVIEW OF SYSTEMS: GENERAL: 4 lb weight gain, no malaise or fevers HEENT: Negative for frequent or significant headaches, No changes in hearing or vision, no nose bleeds or other nasal problems NECK: Negative for lumps, goiter, pain and significant neck swelling RESPIRATORY: See HPI CARDIOVASCULAR: See HPI GI: See HPI : No history of dysuria, frequency or incontinence MUSCULOSKELETAL: Negative for joint pain or swelling, back pain or muscle pain SKIN: Negative for lesions, rash, and itching PSYCH: Negative for sleep disturbance, mood disorder and recent psychosocial stressors HEMATOLOGY/LYMPHOLOGY: Negative for prolonged bleeding, bruising easily or swollen nodes ENDOCRINE: Negative for cold or heat intolerance, polyuria, polydipsia and goiter NEURO: No history of headaches, syncope, paralysis, seizures or tremors PATIENT TRANSPLANT KARNOFSKY INDEX AND LANSKY SCALE 80% - Normal activity with effort: some symptoms of disease. Dolores Vu RN Patient Working? No, on medical disability since 2011 IMMUNIZATIONS: Hep A: 04/13/21; 07/22/21 (11/18/21) positive Hep B: 04/13/21; 07/22/21;02/24/22 (07/17/22) positive Flu vaccine: 11/18/21, 11/08/22 RSV: 12/05/22 Prevnar 20: 07/22/21 COVID 19 vaccine - Moderna ( 12/12/2020, 05/08/2020, 04/10/2020); 11/08/21, 11/08/22 Shingles: 04/19/2019, 11/16/2018 PPD/TB Quant: 04/13/21 Negative Tetanus booster: 04/13/21 RSV: 12/05/22 HEALTH MAINTENANCE: PSA: 02/24/22 0.18 needs Dermatology - 11/15/22 frozen spots on top of head, and back COLONOSCOPY: 01/30/13 ([facility]) Rectal mucosa normal. Grade 1 internal hemorrhoids. Ileum normal, mucosal and submucosal vascular patter throughout the colon was normal. No polyp or mass identified, no inflammatory changes. 07/18/23 1 polyp removed BONE DENSITY: 11/29/22 IMPRESSION: THE LOWEST T-SCORE IS -1.5 IN THE RIGHT HIP 1) DIAGNOSIS (based on BMD alone): OSTEOPENIA ENDO CONSULT: 02/25/22 with Hortencia 11/10/23 PENDING Based on FRAX and BMD, treatment is not recommended at this time. Calcium 1200 to 1500 mg daily recommended- begin calcium carbonate 600 mg daily with food. Weight bearing exercise as tolerated recommended. Fall precautions discussed. Repeat bmd on same machine as prior around 07/2023. Continued f/u with PCP for routine health maintenance advised. POST-TRANSPLANT GERD STUDIES: ESOPHAGRAM - 11/12/22 IMPRESSION: NORMAL ESOPHAGEAL EMPTYING. ESOPHAGEAL MANOMETRY- 08/16/22 Impressions EGJOO with spasm and hypercontractile esophagus, consistent with type III achalasia. Correlate clinically with timed barium esophagram, EGD, and symptoms of dysphagia. Spastic segment is 14 cm above the LES. pH PROBE- 08/25/22 Interpretations Normal study OFF PPI therapy with acid exposure time of 0.1%. Symptom association was negative to cough. GASTRIC EMPTYING- 08/19/22 IMPRESSION: NORMAL RATE OF GASTRIC EMPTYING OF SOLID MEAL PRE-TRANSPLANT GERD STUDIES: ESOPHAGEAL MONOMETRY: 07/22/21 Interpretation / Findings LES: Normal resting pressure, complete relaxation Body of the esophagus (supine): --7 swallows with normal peirstalsis --3 swallows with hypertensive peristalsis PH PROBE: 07/22/21 Normal study. GASTRIC EMPTYIN07/23/21 NORMAL RATE OF GASTRIC EMPTYING OF SOLID MEAL. PULMONARY FUNCTION TESTING: Date 11/10/23 <-- Reviewed by Dr. Magallanes and discussed with patient FVC (L) 3.21 2.95 3.95 4.96 81 FEV1 (L) 2.69 2.22 3.02 3.78 89 QOJ83-52 (L/sec) 2.52 1.14 2.52 4.44 100 Time (sec) 4.21 FVC (L) 3.28 2.95 3.95 4.97 82 Date 07/21/23 FVC (L) 3.28 2.95 3.95 4.97 82 FEV1 (L) 2.92 2.23 3.03 3.79 96 FIVC (L) 3.06 PIN67-58 (L/sec) 3.49 1.15 2.53 4.46 137 Time (sec) 3.32 Date 04/20/23 FVC (L) 3.10 2.96 3.96 4.98 78 FEV1 (L) 2.86 2.23 3.04 3.80 94 YWP98-27 (L/sec) 3.26 1.16 2.55 4.47 127 Time (sec) 2.78 Date 01/19/23 <-- Reviewed by Dr. Magallanes and discussed with patient FVC (L) 2.93 2.96 3.97 4.99 73 FEV1 (L) 2.73 2.24 3.05 3.81 89 OCB38-30 (L/sec) 3.41 1.17 2.56 4.49 133 Time (sec) 3.07 Date 11/29/22 FVC (L) 2.89 2.97 3.97 4.99 72 FEV1 (L) 2.67 2.24 3.05 3.81 87 VAS30-50 (L/sec) 3.12 1.17 2.57 4.50 121 Time (sec) 2.91 Date 10/21/22 FVC (L) 2.80 3.05 4.09 5.14 68 FEV1 (L) 2.70 2.30 3.13 3.91 86 YKD01-42 (L/sec) 4.53 1.20 2.62 4.58 173 Time (sec) 2.05 Date 10/04/22 FVC 2.85 3.06 4.09 5.14 69 FEV1 2.70 2.30 3.13 3.91 86 HLL46-98 4.59 1.20 2.62 4.59 175 Time 3.21 Date 09/01/22 FVC (L) 2.50 3.06 4.09 5.14 61 FEV1 (L) 2.37 2.31 3.14 3.92 75 VMR79-40 (L/sec) 4.02 1.20 2.62 4.59 153 Time (sec) 2.18 Date [id number] FVC (L) 2.26 3.06 4.09 5.14 55 FEV1 (L) 2.19 2.31 3.14 3.92 69 WNL08-92 (L/sec) 5.58 1.20 2.62 4.59 212 Time (sec) 1.90 Date 08/18/22 FVC (L) 2.23 3.06 4.09 5.14 54 FEV1 (L) 2.11 2.31 3.14 3.92 67 TRV97-35 (L/sec) 3.40 1.20 2.63 4.59 129 Time (sec) 2.35 Date: 08/11/22 FVC (L) 2.31 3.06 4.09 5.14 56 FEV1 (L) 1.95 2.31 3.14 3.92 62 AHO66-08 (L/sec) 1.83 1.21 2.63 4.60 69 Time (sec) 4.59 Date: 06/02/22 Pre-Transplant FVC (L) 2.76 3.26 4.34 5.44 63 FEV1 (L) 0.81 2.45 3.32 4.14 24 YGB60-64 (L/sec) 0.24 1.21 2.64 4.61 9 Time (sec) 14.94 PORTIONS OF THIS NOTE WERE TAKEN FROM NOTE DATED 07/21/23. ALL THE INFORMATION BY THE RN / 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 MANAGER HAS BEEN CONFIRMED, REVIEWED AND VERIFIED BY ME. CXR 11/10/23 <-- Reviewed by Dr. Magallanes and discussed with patient No interval change CT chest November 10, 2023 <-- Reviewed by Dr. Magallanes and discussed with patient 1. Status post bilateral lung transplant with patent bronchial anastomosis. No suspicious lung nodules. Minimal, scattered foci of mild air trapping noted of indeterminate clinical significance, possibly associated with component of chronic rejection. 2. No enlarged lymph nodes. Old granulomatous disease. 3. Bilateral basilar, left greater than right, dense peridiaphragmatic and scattered linear/curvilinear atelectatic opacities noted. Small right and trace left loculated pleural effusions, presumably iatrogenic. Recent Labs 11/10/23 0829 WBC 7.88 HB 11.0* HCT 35.8* PLT 273 No results for input(s): FK506 in the last 168 hours. PHYSICAL EXAMINATION: BP 142/86 Pulse 90 Temp 36.6 C (97.9 F) (Temporal) Resp 16 Ht 177.8 cm (5' 10) Wt 110.9 kg (244 lb 6.4 oz) SpO2 97% BMI 35.07 kg/m General appearance: Well appearing, alert, in no acute distress, well-hydrated, well nourished. andMorbidly obese Skin: Skin color, texture, turgor normal, no suspicious rashes or lesions Head: Normocephalic, no masses, lesions, tenderness or abnormalities Eyes: Anicteric sclera. Pupils are equally round and reactive to light. Extraocular movements are intact. Ears: External ears normal, canals clear Nose/Sinuses: Nares normal, septum midline, mucosa normal, no drainage or sinus tenderness Oropharynx: Lips, mucosa, and tongue normal, teeth and gums normal, oropharynx normal Neck: Supple, no adenopathy; thyroid symmetric, normal size, no bruits Back: Normal exam Lungs: Lungs clear to auscultation. No wheezing, rhonchi, rales. Heart: RRR without murmur, gallop, or rubs. No ectopy Abdomen: Normal abdominal exam, Abdomen soft, non-tender. Bowel sounds normal. No masses, organomegaly Extremities: No deformities, edema, skin discoloration, clubbing or cyanosis. Good capillary refill. Musculoskeletal: No joint swelling, deformity, or tenderness Peripheral pulses: Normal Neuro: Gait normal. Reflexes normal and symmetric. Sensation grossly intact. 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 Swabbed in clinic, CT chest reviewed, plan for bronch next week. # Encounter for aftercare following bilateral 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/22 for COPD - Lung allograft function declining - Continue prednisone 5 mg daily with no change today - Continue Cellcept 750 mg twice daily with no change today - Continue Tacrolimus 3.5 mg every 12 hours - awaiting trough level today to guide possible dose adjustment for goal trough of 9-12 Current prophylaxes falling under the umbrella of aftercare following lung transplant # Antiviral CMV D-/R+ - Will review appropriateness to continue antiviral but may stop given low risk CMV status # Pneumocystis Prophylaxis - continue Bactrim on M//, actively needed and prescribed by me for prophylaxis # Fungal Prophylaxis - completed # Chronic rejection Prophylaxis - continue azithromycin actively needed and prescribed by me for prophylaxis # Cardiovascular Status - Monitor home BP - Active current and chronic mixed hyperlipidemia with LDL goal <100 managed by me with atorvastatin # Gastrointestinal Status - Active current and chronic gastroesophageal reflux disease without esophagitis managed by me with proton pump inhibition # Endocrine/Bone Status - Active current and chronic steroid induced osteoporosis managed by me with vitamin D, Calcium - Care collaborated with me here at [facility] with Endocrine Bone Health and Diabetes Adult Health groups # Renal Status - Active current and chronic stage 3a renal failure with Estimated Creatinine Clearance: 52.3 mL/min (A) (based on SCr of 1.71 mg/dL (H)). - Based on today's GFR, all renally dosed medications and renal interactions have been accounted for and medications adjusted - Electrolytes have been reviewed, specifics such as HYPERkalemia have been addressed with the coordinator and patient # Hematology/Oncology Status - Active monitoring of drug induced cytopenias/cellular aplasias, medications addressed/adjusted today - Coagulopathy - no - Age-appropriate cancer screening - yes During this patient visit I spent 45 minutes in the visit, with more than 50% of the total [id number]-ae-[id number] time of the visit in counseling / coordination of care. More specifically we discussed the patient's chest x-ray, today's lab results - most importantly immunosuppression levels and have made relevant adjustments to maintain health, wellness and stabilitypost transplant. We have coordinated with patient and consultants all follow up visits. Follow Up: 3 months with routine labs, imaging, and spirometry as well as bronch next week to rule out rejection, infection or other Prior fungal culture positive, no clear evidence of aspergillus on CT chest; unclear air trapping, infection? CLAD? Osbaldo Magallanes MD Staff Physician [facility], [facility] [place] [facility] [address] [place] [address] documented in this encounterCommunity [facility]09-[facility]24 Telephone encounter Note * Telephone Encounter - Shira Escobar RN - 10/18/2023 3:50 PM EDT Reviewed labs with varinder Cm. Patient advised no changes in medication and will have labs repeatedon 10/30. [facility]09-10-2024 Miscellaneous Notes* Telephone Encounter - Shira Escobar RN - 10/18/2023 3:50 PM EDT Reviewed labs with varinder Cm. Patient advised no changes in medication and will have labs repeatedon 10/30. * Telephone Encounter - Eileen Cm [facility] - 10/18/2023 3:45 PM EDT Tacrolimus level was therapeutic at 8.7 (goal ~10). Current dose is 8/8. Would recommend no change to current dose. Recheck labs in 2 weeks. Eileen Cm RPh * Telephone Encounter - Magda Concepcion - 10/18/2023 2:48 PM EDT Transplants: 07/20/2022 (Lung) Lab Results Component Value Date FK506 8.7 10/17/2023 CREAT 1.26 (H) 10/17/2023 K 4.6 10/17/2023 WBC 8.32 10/17/2023 ABSNEUT 5.59 10/17/2023 CMVCPY Not detected 10/17/2023 Estimated Creatinine Clearance: 72.2 mL/min (A) (based on SCr of 1.26 mg/dL (H)). tacrolimus IR (PROGRAF) 1 mg capsule Sig: Take 3 capsules by mouth every morning AND 3 capsules every evening. Total dose of 8mg/8mg. tacrolimus IR (PROGRAF) 5 mg capsule Sig: Take 1 capsule by mouth two times a day. documented in this encounterCommunity [facility]09-[facility]-2024 Telephone encounter Note * Telephone Encounter - Eileen Cm RPh - 10/18/2023 3:45 PM EDT Tacrolimus level was therapeutic at 8.7 (goal ~10). Current dose is 8/8. Would recommend no change to current dose. Recheck labs in 2 weeks. Eileen Cm RPh [facility] Work Phone: [phone] 241-919009-10-2024 Telephone encounter Note* Telephone Encounter - Magda Concepcion - 10/18/2023 2:48 PM EDT Transplants: 07/20/2022 (Lung) Lab Results Component Value Date FK506 8.7 10/17/2023 CREAT 1.26 (H) 10/17/2023 K 4.6 10/17/2023 WBC 8.32 10/17/2023 ABSNEUT 5.59 10/17/2023 CMVCPY Not detected 10/17/2023 Estimated Creatinine Clearance: 72.2 mL/min (A) (based on SCr of 1.26 mg/dL (H)). tacrolimus IR (PROGRAF) 1 mg capsule Sig: Take 3 capsules by mouth every morning AND 3 capsules every evening. Total dose of 8mg/8mg. tacrolimus IR (PROGRAF) 5 mg capsule Sig: Take 1 capsule by mouth two times a day. [facility]08-[facility] Telephone encounter Note* Telephone Encounter - Dolores Vu RN - 10/04/2023 12:15 PM EDT Labs reviewed with Dr. Magallanes. Patient directed to take 8 mg Tacrolimus every morning at 8 am and8 mg every evening at 8 pm. Have labs drawn on 10/17/23. The following approved medication requests have been transmitted electronically. Requested Prescriptions Pending Prescriptions Disp Refills tacrolimus IR (PROGRAF) 5 mg capsule 60 capsule 11 Sig: Take 1 capsule by mouth two times a day. tacrolimus IR (PROGRAF) 1 mg capsule 180 capsule 11 Sig: Take 3 capsules by mouth every morning AND 3 capsules every evening. Total dose of 8mg/8mg. Dolores Vu RN [facility]08-27-2024 Miscellaneous Notes* Telephone Encounter - Dolores Vu RN - 10/04/2023 12:15 PM EDT Labs reviewed with Dr. Magallanes. Patient directed to take 8 mg Tacrolimus every morning at 8 am and8 mg every evening at 8 pm. Have labs drawn on 10/17/23. The following approved medication requests have been transmitted electronically. Requested Prescriptions Pending Prescriptions Disp Refills tacrolimus IR (PROGRAF) 5 mg capsule 60 capsule 11 Sig: Take 1 capsule by mouth two times a day. tacrolimus IR (PROGRAF) 1 mg capsule 180 capsule 11 Sig: Take 3 capsules by mouth every morning AND 3 capsules every evening. Total dose of 8mg/8mg. Dolores Vu RN * Telephone Encounter - Eileen Cm RPh - 10/04/2023 11:30 AM EDT Tacrolimus level was supratherapeutic at 12 (goal 10). Current dose is 8.5/8. Would recommend decreasing dose to 8/8 . Recheck labs in 2 weeks. Eileen Cm RPh * Telephone Encounter - Magda Concepcion - 10/04/2023 8:04 AM EDT Transplants: 07/20/2022 (Lung) Lab Results Component Value Date FK506 12.0 10/03/2023 CREAT 1.34 (H) 10/03/2023 K 4.7 10/03/2023 WBC 8.00 10/03/2023 ABSNEUT 5.55 10/03/2023 CMVCPY Not detected 10/03/2023 Estimated Creatinine Clearance: 68.8 mL/min (A) (based on SCr of 1.34 mg/dL (H)). tacrolimus IR (PROGRAF) 0.5 mg capsule Sig: Take 1 capsule by mouth every morning. (Total dose of 8.5mg in the AM/8mg in the PM) tacrolimus IR (PROGRAF) 1 mg capsule Sig: Take 3 capsules by mouth every morning AND 3 capsules every evening. Total dose of 8.5mg/8mg. tacrolimus IR (PROGRAF) 5 mg capsule Sig: Take 1 capsule by mouth two times a day. (Total dose of 8.5mg in the AM/8mg in the PM) documented in this encounterCommunity [facility] Hospital08-27-2024 Telephone encounter Note * Telephone Encounter - Eileen Cm RPh - 10/04/2023 11:30 AM EDT Tacrolimus level was supratherapeutic at 12 (goal 10). Current dose is 8.5/8. Would recommend decreasing dose to 8/8 . Recheck labs in 2 weeks. Eileen Cm RPh [facility] Work Phone: [phone] Telephone encounter Note* Telephone Encounter - Magda Concepcion - 10/04/2023 8:04 AM EDT Transplants: 07/20/2022 (Lung) Lab Results Component Value Date FK506 12.0 10/03/2023 CREAT 1.34 (H) 10/03/2023 K 4.7 10/03/2023 WBC 8.00 10/03/2023 ABSNEUT 5.55 10/03/2023 CMVCPY Not detected 10/03/2023 Estimated Creatinine Clearance: 68.8 mL/min (A) (based on SCr of 1.34 mg/dL (H)). tacrolimus IR (PROGRAF) 0.5 mg capsule Sig: Take 1 capsule by mouth every morning. (Total dose of 8.5mg in the AM/8mg in the PM) tacrolimus IR (PROGRAF) 1 mg capsule Sig: Take 3 capsules by mouth every morning AND 3 capsules every evening. Total dose of 8.5mg/8mg. tacrolimus IR (PROGRAF) 5 mg capsule Sig: Take 1 capsule by mouth two times a day. (Total dose of 8.5mg in the AM/8mg in the PM) [facility] Telephone encounter Note* Telephone Encounter - Yeison Hernandez RN - 10/03/2023 8:36 AM EDT The following approved medication requests have been transmitted electronically. Requested Prescriptions Pending Prescriptions Disp Refills sulfamethoxazole-trimethoprim (BACTRIM DS) 800-160 mg per tablet [Pharmacy Med Name: SULFAMETHOXAZOLE-TMP DS TABLET] 36 tablet 3 Sig: TAKE 1 TABLET BY MOUTH EVERY TUESDAY,TUESDAY,AND TUESDAY Yeison Hernandez RN [facility]08-26-2024 Miscellaneous Notes* Telephone Encounter - Yeison Hernandez RN - 10/03/2023 8:36 AM EDT The following approved medication requests have been transmitted electronically. Requested Prescriptions Pending Prescriptions Disp Refills sulfamethoxazole-trimethoprim (BACTRIM DS) 800-160 mg per tablet [Pharmacy Med Name: SULFAMETHOXAZOLE-TMP DS TABLET] 36 tablet 3 Sig: TAKE 1 TABLET BY MOUTH EVERY TUESDAY,TUESDAY,AND TUESDAY Yeison Hernandez RN documented in this encounterCommunity [facility] Hospital08-13-2024 Telephone encounter Note * Telephone Encounter - Gayatri Cordero RN - 09/20/2023 9:18 AM EDT Returned call to patient, his PCP is prescribing zoloft. Advised ok to take. [facility] Miscellaneous Notes* Telephone Encounter - Gayatri Cordero RN - 09/20/2023 9:18 AM EDT Returned call to patient, his PCP is prescribing zoloft. Advised ok to take. * Telephone Encounter - Keke Willoughby - 09/20/2023 9:04 AM EDT Pt is calling in stating that he has a question about if he can take Zoloft. Pt can be reached at [phone] Keke Willoughby documented in this encounterCommunity [facility] Hospital08-13-2024 Telephone encounter Note * Telephone Encounter - Keke Willoughby - 09/20/2023 9:04 AM EDT Pt is calling in stating that he has a question about if he can take Zoloft. Pt can be reached at [phone] Keke Willoughby [facility]08-[facility] History of Present illness Narrative* Keshav Phillips APRN.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 MANAGER - 09/20/2023 8:27 AM EDT Chief Complaint Patient presents with: Anxiety HPI Belgica Angelo is a 67 year old male who presents here today for Above Complaints.. Patient presents to discuss anxiety. Patient reports his told him he needs something for anxiety. Past medical history, appointments, medications, allergies reviewed. Previous Medical History PAST MEDICAL HISTORY No date: Asthma No date: Bronchiectasis ([facility]) No date: COPD (chronic obstructive pulmonary disease) ([facility]) No date: Dependence on supplemental oxygen Comment: No longer neede post transplant No date: Heterozygous alpha 1-antitrypsin deficiency ([facility]) Comment: PiMZ No date: Lung nodule No date: Pain in joint, ankle and foot No date: S/P lung transplant ([facility]) Previous Surgical History PAST SURGICAL HISTORY 07/20/2022: LUNG TRANSPLANT,DOUBLE; Bilateral 02/07/2011: PAST SURGICAL HISTORY OF Comment: Rt foot reconstruction No date: REMV CATARACT EXTRACAP,INSERT LENS 04/28/2023: REMV CATARACT EXTRACAP,INSERT LENS; Right Comment: [id number] +20.0 D 07/26/2012: RPR UMBILICAL HRNA 5 YRS/> REDUCIBLE Comment: Hernia repair, umbilical >5yr Family History FAMILY HISTORY Problem Relation Age of Onset COPD Mother Heart disease Father Breast Cancer Sister No Known Problems Sister No Known Problems Sister COPD Brother COPD Brother Patient Allergies ALLERGIES Allergen Reactions Nsaids (Non-Steroid* Contraindication-Medical Surgical Patient states he is not allergic to Nsaids- caused upset stomach Penicillins GI Upset Patient states he is not allergic to penicillin- caused upset stomach Current Medications Current Outpatient Medications on File Prior to Visit Medication Sig tacrolimus IR (PROGRAF) 0.5 mg capsule Take 1 capsule by mouth every morning. (Total dose of 8.5mg in the AM/8mg in the PM) tacrolimus IR (PROGRAF) 1 mg capsule Take 3 capsules by mouth every morning AND 3 capsules every evening. Total dose of 8.5mg/8mg. tacrolimus IR (PROGRAF) 5 mg capsule Take 1 capsule by mouth two times a day. (Total dose of 8.5mg in the AM/8mg in the PM) phosphorus (K PHOS NEUTRAL) 250 mg tablet Take 1 tablet by mouth two times a day. magnesium oxide (MAG-OX) 400 mg (241.3 mg magnesium) tablet Take 1 tablet by mouth two times a day. pantoprazole DR (PROTONIX) 20 mg tablet Take 1 tablet by mouth daily at 6 am. atorvastatin (LIPITOR) 10 mg tablet Take 1 tablet by mouth daily at bedtime. azithromycin (ZITHROMAX) 250 mg tablet Take 1 tablet by mouth every Tuesday, Tuesday, and Tuesday. valGANciclovir (VALCYTE) 450 mg tablet TAKE 2 TABLETS BY MOUTH EVERY DAY WITH BREAKFAST prednisoLONE acetate (PRED FORTE) 1 % ophthalmic suspension Use 1 Drop in the right eye four times daily. predniSONE (DELTASONE) 5 mg tablet Take 1 tablet by mouth once daily. oseltamivir (TAMIFLU) 75 mg capsule Take 1 capsule by mouth two times a day. Tamiflu emergency Rx. Take upon onset of influenza symptoms and get tested as soon as possible. sulfamethoxazole-trimethoprim (BACTRIM DS) 800-160 mg per tablet Take 1 tablet by mouth every Tuesday,Tuesday,Tuesday. mycophenolate mofetil (CELLCEPT) 250 mg capsule Take 3 capsules by mouth twice daily. traMADol (ULTRAM) 50 mg tablet Take 1 tablet by mouth every 4 hours as needed for pain (for pain.). acetaminophen (TYLENOL) 325 mg tablet Take 2 tablets by mouth every 6 hours as needed for pain. albuterol (PROVENTIL) 2.5 mg /3 mL (0.083 %) nebulizer solution Use 3 mL via nebulizer every Tuesday,Tuesday,Tuesday. ondansetron (ZOFRAN) 4 mg tablet Take 1 tablet by mouth every 8 hours as needed for nausea/vomiting. (Patient not taking: Reported on 09/15/2023) No current facility-administered medications on file prior to visit. Social History Social History Tobacco Use Smoking status: Former Packs/day: 4.00 Years: 30.00 Additional pack years: 0.00 Total pack years: 120.00 Types: Cigarettes Quit date: 2010 Years since quittin.6 Smokeless tobacco: Never Vaping Use Vaping Use: Never used Substance Use Topics Alcohol use: Never Drug use: Never Review of Symptoms REVIEW OF SYSTEMS SEE HPI EXAM: BP 112/72 Pulse 102 Resp 16 Wt 114.8 kg (253 lb) BMI 36.30 kg/m General Appearance: Well appearing, alert, in no acute distress, well-hydrated, well nourished.. Health Maintenance List Covid-19 Vaccine() due on 09/15/2023 Hepatitis A Vaccine(3 of 3 - Hep A Twinrix risk 3-dose series) due on 07/10/2024 Meningococcal Conjugate Vaccine(1 - Risk 2-dose series) due on 07/10/2024 Influenza Vaccine(1) due on 10/09/2023 Lung Cancer Screening due on 07/10/2024 Annual PCP Team Chronic Disease Visit due on 07/10/2024 Depression Screening due on 07/10/2024 Anxiety Screening due on 07/10/2024 Colorectal Cancer Screening due on 07/17/2024 BP Controlled (<130/80) due on 09/14/2024 Diabetes Screening due on 09/05/2026 Prostate Cancer Screening Discussion due on 02/24/2027 Lipid Screening due on 07/20/2028 DTaP,Tdap,Td Vaccine(2 - Td or Tdap) due on 04/14/2031 Alpha-1 Antitrypsin Deficiency Screening Completed Spirometry Completed Advance Directive Discussion Completed RSV Vaccine Completed Hepatitis C Screening Completed Shingrix Vaccine Completed Pneumococcal Vaccine: 65+ Completed HPV Vaccine Aged Out Abdominal Aortic Aneurysm Screening Discontinued ASSESSMENT/PLAN: 1. JODY (generalized anxiety disorder) - ICD9: 300.02, ICD10: F41.1 - SERTRALINE 50 MG TABLET Keshav Phillips APRN.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 MANAGER documented in this encounterCommunity [facility]08-[facility]-2024 History of Present illness Narrative* Shukri Juárez MD - 09/15/2023 12:45 PM EDT Images from the original note were not included. . 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 Since RICHARD, he had COVID in March treated with molnupiravir. Hedid not require hospitalization nor was he hypoxemic. Last surveillance bronchoscopy positive for 1colony of Aspergillus but Aspergillus galactomanan negatvie and biopsy negative for acute rejection. Overall he states he is doing well from a respiratory standpoint. Denies significant shortness of breath, cough, sputum production, wheezing. His main complaint is in regard to restrictions in his ac tivities and exposures. He is anxious today and asking for medication for anxiety. I referred him to discuss this with his primary care physician. DATA: PFT 07/2023: Spirometry is normal Labs: FINAL DIAGNOSIS A, B. Lung, allograft, left lower lobe and lingula, transbronchial biopsies: - No acute cellular rejection (see comment). - No small airway inflammation. - No chronic airway rejection. - LRSG grade A0B0. Component Ref Range & Units 1 mo ago (07/21/23) Diff Total, BAL cells counted 100 Lymph%, BAL % 2 Macro%, BAL % 98 Component Ref Range & Units 1 mo ago (07/21/23) ASPER. AG BAL,QUAL Negative Negative Culture One colony Aspergillus niger Abnormal By MALDI TOF Mass Spectrometry. Imaging / Diagnostic Studies: DATE OF EXAM: Jul 21 2023 8:02AM AOX [id number] - XR CHEST 2V FRONTAL/LAT / EXAM DATE/TIME: 07/21/2023 8:02 AM COMPARISON: 04/20/2023 RESULT: Lines, tubes, and devices: None. Lungs and pleura: Prior bilateral lung transplant. No consolidation. Nolung mass. Stable small leftpleural effusion. No pneumothorax. Cardiomediastinal silhouette: Normal cardiomediastinal silhouette. Bones and soft tissues: Unremarkable. I personally reviewed the images which shows no major abnormality PAST MEDICAL HISTORY No date: Asthma No date: Bronchiectasis ([facility]) No date: COPD (chronic obstructive pulmonary disease) ([facility]) No date: Dependence on supplemental oxygen Comment: No longer neede post transplant No date: Heterozygous alpha 1-antitrypsin deficiency ([facility]) Comment: PiMZ No date: Lung nodule No date: Pain in joint, ankle and foot No date: S/P lung transplant ([facility]) ALLERGIES Allergen Reactions Nsaids (Non-Steroid* Contraindication-Medical Surgical Patient states he is not allergic to Nsaids- caused upset stomach Penicillins GI Upset Patient states he is not allergic to penicillin- caused upset stomach tacrolimus IR (PROGRAF) 0.5 mg capsule Take 1 capsule by mouth every morning. (Total dose of 8.5mg in the AM/8mg in the PM) tacrolimus IR (PROGRAF) 1 mg capsule Take 3 capsules by mouth every morning AND 3 capsules every evening. Total dose of 8.5mg/8mg. tacrolimus IR (PROGRAF) 5 mg capsule Take 1 capsule by mouth two times a day. (Total dose of 8.5mg in the AM/8mg in the PM) phosphorus (K PHOS NEUTRAL) 250 mg tablet Take 1 tablet by mouth two times a day. pantoprazole DR (PROTONIX) 20 mg tablet Take 1 tablet by mouth daily at 6 am. azithromycin (ZITHROMAX) 250 mg tablet Take 1 tablet by mouth every Tuesday, Tuesday, and Tuesday. valGANciclovir (VALCYTE) 450 mg tablet TAKE 2 TABLETS BY MOUTH EVERY DAY WITH BREAKFAST predniSONE (DELTASONE) 5 mg tablet Take 1 tablet by mouth once daily. oseltamivir (TAMIFLU) 75 mg capsule Take 1 capsule by mouth two times a day. Tamiflu emergency Rx. Take upon onset of influenza symptoms and get tested as soon as possible. sulfamethoxazole-trimethoprim (BACTRIM DS) 800-160 mg per tablet Take 1 tablet by mouth every Tuesday,Tuesday,Tuesday. mycophenolate mofetil (CELLCEPT) 250 mg capsule Take 3 capsules by mouth twice daily. traMADol (ULTRAM) 50 mg tablet Take 1 tablet by mouth every 4 hours as needed for pain (for pain.). magnesium oxide (MAG-OX) 400 mg (241.3 mg magnesium) tablet Take 1 tablet by mouth two times a day. atorvastatin (LIPITOR) 10 mg tablet Take 1 tablet by mouth daily at bedtime. prednisoLONE acetate (PRED FORTE) 1 % ophthalmic suspension Use 1 Drop in the right eye four times daily. acetaminophen (TYLENOL) 325 mg tablet Take 2 tablets by mouth every 6 hours as needed for pain. albuterol (PROVENTIL) 2.5 mg /3 mL (0.083 %) nebulizer solution Use 3 mL via nebulizer every Tuesday,Tuesday,Tuesday. ondansetron (ZOFRAN) 4 mg tablet Take 1 tablet by mouth every 8 hours as needed for nausea/vomiting. (Patient not taking: Reported on 09/15/2023) Social History Tobacco Use Smoking status: Former Packs/day: 4.00 Years: 30.00 Additional pack years: 0.00 Total pack years: 120.00 Types: Cigarettes Quit date: 2010 Years since quittin.6 Smokeless tobacco: Never Vaping Use Vaping Use: Never used Substance Use Topics Alcohol use: Never Drug use: Never FAMILY HISTORY Problem Relation Age of Onset COPD Mother Heart disease Father Breast Cancer Sister No Known Problems Sister No Known Problems Sister COPD Brother COPD Brother PAST SURGICAL HISTORY 07/20/2022: LUNG TRANSPLANT,DOUBLE; Bilateral 02/07/2011: PAST SURGICAL HISTORY OF Comment: Rt foot reconstruction No date: REMV CATARACT EXTRACAP,INSERT LENS 04/28/2023: REMV CATARACT EXTRACAP,INSERT LENS; Right Comment: [id number] +20.0 D 07/26/2012: RPR UMBILICAL HRNA 5 YRS/> REDUCIBLE Comment: Hernia repair, umbilical >5yr PMH, Social history, family history and surgical history reviewed and updated in EMR REVIEW OF SYSTEMS: CONSTITUTIONAL: No fevers, chills, nightsweats, unintended weight loss. Weight gain CARDIOVASCULAR: No chest pain, dyspnea, palpitations, orthopnea, PND, edema. PULM: See HPI GI: No dysphagia/odynophagia, problematic reflux NEURO: No balance problems, peripheral weakness/paresthesias or numbness of concern. PSY: Anxiety INTEGUMENTARY: No new skin changes PHYSICAL EXAMINATION: Weight 242 pounds, BP 120/76, pulse 101, RR 17, SpO2 97% on room air General Appearance: Obese male, NAD. Skin: Skin color, texture, turgor normal, no suspicious rashes or lesions. Head: Normocephalic, no masses, lesions, tenderness or abnormalities. Eyes: Sclera, conjunctiva normal. Oropharynx: No oral lesions or thrush. Neck: No JVD, no masses, no adenopathy. Lungs: Not labored, normal to percussion, no wheezes or crackles. Heart: Regular rate and rhythm, no murmurs or gallops. Extremities: Pretibial edema, no clubbing. Assessment/Plan: 1. Status post bilateral lung transplant for COPD and alpha-1 antitrypsin deficiency -Doing well without evidence of rejection -Follows with transplant team -Since he no longer requires therapy for obstructive lung disease, he can see me on a yearly basis 2. Former cigarette smoker -Former smoker quitting in 2010 -Not a candidate for lung cancer screening due to bilateral explanted lungs. Shukri Juárez MD Respiratory [place] documented [facility] Telephone encounter Note * Telephone Encounter - Shukri Huang RPh - 09/08/2023 9:07 AM EDT Tacrolimus level was therapeutic at 10.8 (goal ~10). Current dose is 8.5/8. Would recommend no change to current dose. Recheck labs in 1 month. Shukri Huang RPh [facility] Work Phone: [phone] Miscellaneous Notes* Telephone Encounter - Shukri Huang RPh - 09/08/2023 9:07 AM EDT Tacrolimus level was therapeutic at 10.8 (goal ~10). Current dose is 8.5/8. Would recommend no change to current dose. Recheck labs in 1 month. Shukri Huang RPh * Telephone Encounter - Magda Concepcion N - 09/08/2023 8:08 AM EDT Transplants: 07/20/2022 (Lung) Lab Results Component Value Date FK506 10.8 09/06/2023 CREAT 1.30 (H) 09/06/2023 K 4.4 09/06/2023 WBC 8.24 09/06/2023 ABSNEUT 5.66 09/06/2023 CMVCPY Not detected 09/06/2023 Estimated Creatinine Clearance: 69.1 mL/min (A) (based on SCr of 1.3 mg/dL (H)). tacrolimus IR (PROGRAF) 0.5 mg capsule Sig: Take 1 capsule by mouth every morning. (Total dose of 8.5mg in the AM/8mg in the PM) tacrolimus IR (PROGRAF) 1 mg capsule Sig: Take 3 capsules by mouth every morning AND 3 capsules every evening. Total dose of 8.5mg/8mg. tacrolimus IR (PROGRAF) 5 mg capsule Sig: Take 1 capsule by mouth two times a day. (Total dose of 8.5mg in the AM/8mg in the PM) documented in [facility] encounterCommunity [facility] Telephone encounter Note * Telephone Encounter - Magda Concepcion N - 09/08/2023 8:08 AM EDT Transplants: 07/20/2022 (Lung) Lab Results Component Value Date FK506 10.8 09/06/2023 CREAT 1.30 (H) 09/06/2023 K 4.4 09/06/2023 WBC 8.24 09/06/2023 ABSNEUT 5.66 09/06/2023 CMVCPY Not detected 09/06/2023 Estimated Creatinine Clearance: 69.1 mL/min (A) (based on SCr of 1.3 mg/dL (H)). tacrolimus IR (PROGRAF) 0.5 mg capsule Sig: Take 1 capsule by mouth every morning. (Total dose of 8.5mg in the AM/8mg in the PM) tacrolimus IR (PROGRAF) 1 mg capsule Sig: Take 3 capsules by mouth every morning AND 3 capsules every evening. Total dose of 8.5mg/8mg. tacrolimus IR (PROGRAF) 5 mg capsule Sig: Take 1 capsule by mouth two times a day. (Total dose of 8.5mg in the AM/8mg in the PM) [facility] Telephone encounter Note* Telephone Encounter - Dolores Vu RN - 09/05/2023 11:58 AM EDT Standing orders placed, patient goes to [facility] lab. [facility] Miscellaneous Notes* Telephone Encounter - Dolores Vu RN - 09/05/2023 11:58 AM EDT Standing orders placed, patient goes to [facility] lab. * Telephone Encounter - Archana Nolan - 09/05/2023 11:45 AM EDT [facility] called in requesting a new standing lab letter, so that he can get his labs drawn. If you need to contact [facility] please call him at [phone]. documented in this encounterCommunity [facility]07-29-[facility] Telephone encounter Note * Telephone Encounter - Archana Nolan - 09/05/2023 11:45 AM EDT [facility] called in requesting a new standing lab letter, so that he can get his labs drawn. If you need to contact [facility] please call him at [phone]. [facility] Work Phone: [phone]) 904-867007-19-2024 Telephone encounter Note* Telephone Encounter - Dionna Patel RP - 08/26/2023 4:25 PM EDT All of the tacrolimus doses must be written on the same day and reflect each dose due to medicare guidelines Patient requests refill of: Requested Prescriptions Pending Prescriptions Disp Refills tacrolimus IR (PROGRAF) 0.5 mg capsule 30 capsule 11 Sig: Take 1 capsule by mouth every morning. Total dose of 8.5mg/8mg tacrolimus IR (PROGRAF) 1 mg capsule 180 capsule 11 Sig: Take 3 capsules by mouth every morning AND 3 capsules every evening. Total dose of 8.5mg/8mg. tacrolimus IR (PROGRAF) 5 mg capsule 60 capsule 11 Sig: Take 1 capsule by mouth two times a day. Total dose of 8.5mg/8mg If approved, please e-script the attached order to [facility]. Thank you, Dionna Patel [facility] [phone] [facility] Miscellaneous Notes* Telephone Encounter - Dionna Patel RP - 08/26/2023 4:25 PM EDT All of the tacrolimus doses must be written on the same day and reflect each dose due to medicare guidelines Patient requests refill of: Requested Prescriptions Pending Prescriptions Disp Refills tacrolimus IR (PROGRAF) 0.5 mg capsule 30 capsule 11 Sig: Take 1 capsule by mouth every morning. Total dose of 8.5mg/8mg tacrolimus IR (PROGRAF) 1 mg capsule 180 capsule 11 Sig: Take 3 capsules by mouth every morning AND 3 capsules every evening. Total dose of 8.5mg/8mg. tacrolimus IR (PROGRAF) 5 mg capsule 60 capsule 11 Sig: Take 1 capsule by mouth two times a day. Total dose of 8.5mg/8mg If approved, please e-script the attached order to [facility]. Thank you, Dionna Patel [facility] [phone] documented in this encounterCommunity [facility]07-[facility] Telephone encounter Note * Telephone Encounter - Ban Miriam Emily M - 08/25/2023 12:06 PM EDT Contacted patient for the 30 day follow up in the above research study. Patient chart was also reviewed. He reports doing well and has not had any adverse events or changes in health status. He has no questions at this time. I thanked him for his participation in the research study. This concludes study participation. Emily Cevallos RN, BC, CCRP Lung Volume Reduction Coordinator [facility] Miscellaneous Notes* Telephone Encounter - Banruel Pineda Emilyclifford King - 08/25/2023 12:06 PM EDT Contacted patient for the 30 day follow up in the above research study. Patient chart was also reviewed. He reports doing well and has not had any adverse events or changes in health status. He has no questions at this time. I thanked him for his participation in the research study. This concludes study participation. Emily Cevallos RN, BC, CCRP Lung Volume Reduction Coordinator documented in this encounterCommunity [facility]07-16-2024 Telephone encounter Note * Telephone Encounter - Shukri Huang RPh - 08/23/2023 9:17 AM EDT Tacrolimus level was therapeutic at 10.3 (goal ~10). Current dose is 8.5/8. Would recommend no change to current dose. Recheck labs in 4 weeks. Shukri Huang RPh [facility] Work Phone: [phone] Miscellaneous Notes* Telephone Encounter - Shukri Huang RPh - 08/23/2023 9:17 AM EDT Tacrolimus level was therapeutic at 10.3 (goal ~10). Current dose is 8.5/8. Would recommend no change to current dose. Recheck labs in 4 weeks. Shukri Huang RPh * Telephone Encounter - Magda Concepcion - 08/23/2023 8:49 AM EDT Transplants: 07/20/2022 (Lung) Lab Results Component Value Date FK506 10.3 08/22/2023 CREAT 1.42 (H) 08/22/2023 K 4.6 08/22/2023 WBC 7.20 08/22/2023 ABSNEUT 4.80 08/22/2023 CMVCPY Not detected 08/22/2023 Estimated Creatinine Clearance: 63.3 mL/min (A) (based on SCr of 1.42 mg/dL (H)). tacrolimus IR (PROGRAF) 0.5 mg capsule Sig: Take 1 cap in the AM tacrolimus IR (PROGRAF) 1 mg capsule Sig: Take 3 capsules by mouth every morning AND 3 capsules every evening. tacrolimus IR (PROGRAF) 5 mg capsule Sig: Take 1 capsule by mouth two times a day. Take with tacrolimus 1mg capsules documented in this encounterCommunity [facility]07-16-2024 Telephone encounter Note * Telephone Encounter - Magda Concepcion - 08/23/2023 8:49 AM EDT Transplants: 07/20/2022 (Lung) Lab Results Component Value Date FK506 10.3 08/22/2023 CREAT 1.42 (H) 08/22/2023 K 4.6 08/22/2023 WBC 7.20 08/22/2023 ABSNEUT 4.80 08/22/2023 CMVCPY Not detected 08/22/2023 Estimated Creatinine Clearance: 63.3 mL/min (A) (based on SCr of 1.42 mg/dL (H)). tacrolimus IR (PROGRAF) 0.5 mg capsule Sig: Take 1 cap in the AM tacrolimus IR (PROGRAF) 1 mg capsule Sig: Take 3 capsules by mouth every morning AND 3 capsules every evening. tacrolimus IR (PROGRAF) 5 mg capsule Sig: Take 1 capsule by mouth two times a day. Take with tacrolimus 1mg capsules [facility] Telephone encounter Note* Telephone Encounter - Shira Escobar RN - 08/17/2023 9:04 AM EDT Spoke with patient regarding [facility] prescriptions. Patient has 3 medications filled there: Lipitor, Azithromycin and Protonix. Patient's Medicare card says DI Angelo and when electronically send prescriptions it says [facility] Angelo. Verbally called in the 3 prescriptions. Called and left a VM with the update. Will send a mychart message as we as I am not sure if they would like his name changed to instead of Fabiano for his [facility] account. [facility] Miscellaneous Notes* Telephone Encounter - Shira Escobar RN - 08/17/2023 9:04 AM EDT Spoke with patient regarding [facility] prescriptions. Patient has 3 medications filled there: Lipitor, Azithromycin and Protonix. Patient's Medicare card says DI Angel[facility] and when electronically send prescriptions it says [facility] Angelo. Verbally called in the 3 prescriptions. Called and left a VM with the update. Will send a mychart message as we as I am not sure if they would like his name changed to instead of Fabiano for his [facility] account. documented in this encounterCommunity [facility]07-[facility]-2024 Telephone encounter Note * Telephone Encounter - Thomas Correia RN - 08/09/2023 9:01 AM EDT Spoke with patient regarding lab results. Patient reports he was taking 7.5 mg in am and 7 mg in pm. Advised to increase to 8.5 mg in am and 8 mg in pm with labs again on 08/22/23. Patient verbalizedunderstanding. The following approved medication requests have been transmitted electronically. Requested Prescriptions Pending Prescriptions Disp Refills tacrolimus IR (PROGRAF) 1 mg capsule 180 capsule 11 Sig: Take 3 capsules by mouth every morning AND 3 capsules every evening. Thomas Correia RN [facility] Miscellaneous Notes* Telephone Encounter - Thomas Correia RN - 08/09/2023 9:01 AM EDT Spoke with patient regarding lab results. Patient reports he was taking 7.5 mg in am and 7 mg in pm. Advised to increase to 8.5 mg in am and 8 mg in pm with labs again on 08/22/23. Patient verbalizedunderstanding. The following approved medication requests have been transmitted electronically. Requested Prescriptions Pending Prescriptions Disp Refills tacrolimus IR (PROGRAF) 1 mg capsule 180 capsule 11 Sig: Take 3 capsules by mouth every morning AND 3 capsules every evening. Thomas Correia RN * Telephone Encounter - Shukri Huang RPh - 08/09/2023 8:53 AM EDT Tacrolimus level was subtherapeutic at 7.8 (goal ~10). Current dose is 7/7. Would recommend increasing dose to 8/8 . Recheck labs in 2 weeks. Shukri Huang RPh * Telephone Encounter - Magda Concepcion - 08/09/2023 8:28 AM EDT Transplants: 07/20/2022 (Lung) Lab Results Component Value Date FK506 7.8 08/08/2023 CREAT 1.34 (H) 08/08/2023 K 4.6 08/08/2023 WBC 6.36 08/08/2023 ABSNEUT 3.88 08/08/2023 CMVCPY Not detected 08/08/2023 Estimated Creatinine Clearance: 67 mL/min (A) (based on SCr of 1.34 mg/dL (H)). tacrolimus IR (PROGRAF) 0.5 mg capsule Sig: Take 1 cap in the AM tacrolimus IR (PROGRAF) 1 mg capsule Sig: Take 2 capsules by mouth every morning AND 2 capsules every evening. Take with 5mg capsules tacrolimus IR (PROGRAF) 5 mg capsule Sig: Take 1 capsule by mouth two times a day. Take with tacrolimus 1mg capsules documented in this encounterCommunity [facility]07-[facility]-2024 Telephone encounter Note * Telephone Encounter - Shukri Huang RPh - 08/09/2023 8:53 AM EDT Tacrolimus level was subtherapeutic at 7.8 (goal ~10). Current dose is 7/7. Would recommend increasing dose to 8/8 . Recheck labs in 2 weeks. Shukri Huang RPh [facility] Work Phone: [phone]) [phone] Telephone encounter Note* Telephone Encounter - Magda Concepcion - 08/09/2023 8:28 AM EDT Transplants: 07/20/2022 (Lung) Lab Results Component Value Date FK506 7.8 08/08/2023 CREAT 1.34 (H) 08/08/2023 K 4.6 08/08/2023 WBC 6.36 08/08/2023 ABSNEUT 3.88 08/08/2023 CMVCPY Not detected 08/08/2023 Estimated Creatinine Clearance: 67 mL/min (A) (based on SCr of 1.34 mg/dL (H)). tacrolimus IR (PROGRAF) 0.5 mg capsule Sig: Take 1 cap in the AM tacrolimus IR (PROGRAF) 1 mg capsule Sig: Take 2 capsules by mouth every morning AND 2 capsules every evening. Take with 5mg capsules tacrolimus IR (PROGRAF) 5 mg capsule Sig: Take 1 capsule by mouth two times a day. Take with tacrolimus 1mg capsules [facility] Telephone encounter Note* Telephone Encounter - Maria M De La Vega - 08/08/2023 9:03 AM EDT Possible duplicate: Hover to review recent actions on this medication Last ordered on 08/05/[address] Curtis [facility] Miscellaneous Notes* Telephone Encounter - Maria M De La Vega - 08/08/2023 9:03 AM EDT Possible duplicate: Hover to review recent actions on this medication Last ordered on 08/05/[address] Curtis documented in this encounterCommunity [facility]06-[facility]-2024 Telephone encounter Note * Telephone Encounter - Yeison Hernandez RN - 08/05/2023 8:11 AM EDT The following approved medication requests have been transmitted electronically. Requested Prescriptions Pending Prescriptions Disp Refills pantoprazole DR (PROTONIX) 20 mg tablet 90 tablet 3 Sig: Take 1 tablet by mouth daily at 6 am. Yeison Hernandez RN [facility] Telephone encounter Note* Telephone Encounter - Yeison Hernandez RN - 08/05/2023 8:11 AM EDT The following approved medication requests have been transmitted electronically. Requested Prescriptions Pending Prescriptions Disp Refills atorvastatin (LIPITOR) 10 mg tablet 90 tablet 3 Sig: Take 1 tablet by mouth daily at bedtime. Yeison Hernandez RN [facility] Miscellaneous Notes* Telephone Encounter - Yeison Hernandez RN - 08/05/2023 8:11 AM EDT The following approved medication requests have been transmitted electronically. Requested Prescriptions Pending Prescriptions Disp Refills atorvastatin (LIPITOR) 10 mg tablet 90 tablet 3 Sig: Take 1 tablet by mouth daily at bedtime. Yeison Hernandez RN documented in this encounterCommunity [facility]06-28-2024 Miscellaneous Notes* Telephone Encounter - Yeison Hernandez RN - 08/05/2023 8:11 AM EDT The following approved medication requests have been transmitted electronically. Requested Prescriptions Pending Prescriptions Disp Refills pantoprazole DR (PROTONIX) 20 mg tablet 90 tablet 3 Sig: Take 1 tablet by mouth daily at 6 am. Yeison Hernandez RN documented in this encounterCommunity [facility]06-28-2024 Telephone encounter Note * Telephone Encounter - Yeison Hernandez RN - 08/05/2023 8:09 AM EDT The following approved medication requests have been transmitted electronically. Requested Prescriptions Pending Prescriptions Disp Refills azithromycin (ZITHROMAX) 250 mg tablet 36 tablet 3 Sig: Take 1 tablet by mouth every Tuesday, Tuesday, and Tuesday. Yeison Hernandez RN [facility] Miscellaneous Notes* Telephone Encounter - Yeison Hernandez RN - 08/05/2023 8:09 AM EDT The following approved medication requests have been transmitted electronically. Requested Prescriptions Pending Prescriptions Disp Refills azithromycin (ZITHROMAX) 250 mg tablet 36 tablet 3 Sig: Take 1 tablet by mouth every Tuesday, Tuesday, and Tuesday. Yeison Hernandez RN documented in this encounterCommunity [facility]06-[facility]-2024 Telephone encounter Note * Telephone Encounter - Yeison Hernandez RN - 08/02/2023 9:09 AM EDT Labs reviewed with Dr. Curtis. Tacrolimus dose increased to 7.5 mg in the AM and 7 mg in the PM. Patient advised to recheck labs on 08/08/23 d/t stopping Valcyte 07/25. . The following approved medication requests have been transmitted electronically. Requested Prescriptions Pending Prescriptions Disp Refills tacrolimus IR (PROGRAF) 0.5 mg capsule 90 capsule 3 Sig: Take 1 cap in the AM Yeison Hernandez RN [facility] Miscellaneous Notes* Telephone Encounter - Yeison Hernandez RN - 08/02/2023 9:09 AM EDT Labs reviewed with Dr. Curtis. Tacrolimus dose increased to 7.5 mg in the AM and 7 mg in the PM. Patient advised to recheck labs on 08/08/23 d/t stopping Valcyte 18. . The following approved medication requests have been transmitted electronically. Requested Prescriptions Pending Prescriptions Disp Refills tacrolimus IR (PROGRAF) 0.5 mg capsule 90 capsule 3 Sig: Take 1 cap in the AM Yeison Hernandez RN * Telephone Encounter - Shukri Huang RPh - 08/02/2023 8:47 AM EDT Tacrolimus level was subtherapeutic at 8.3 (goal ~10). Current dose is 7/7. Would recommend increasing dose to 8/8 . Recheck labs in 2 weeks. Shukri Huang RPh * Telephone Encounter - Magda Concepcion - 08/02/2023 8:44 AM EDT Transplants: 07/20/2022 (Lung) Lab Results Component Value Date FK506 8.3 08/01/2023 CREAT 1.12 08/01/2023 K 4.6 08/01/2023 WBC 4.19 08/01/2023 ABSNEUT 2.68 08/01/2023 CMVCPY Not detected 08/01/2023 Estimated Creatinine Clearance: 80.2 mL/min (based on SCr of 1.12 mg/dL). tacrolimus IR (PROGRAF) 1 mg capsule Sig: Take 2 capsules by mouth every morning AND 2 capsules every evening. Take with 5mg capsules tacrolimus IR (PROGRAF) 5 mg capsule Sig: Take 1 capsule by mouth two times a day. Take with tacrolimus 1mg capsules documented in this encounterCommunity [facility]06-[facility] Telephone encounter Note * Telephone Encounter - Shukri Huang RPh - 08/02/2023 8:47 AM EDT Tacrolimus level was subtherapeutic at 8.3 (goal ~10). Current dose is 7/7. Would recommend increasing dose to 8/8 . Recheck labs in 2 weeks. Shukri Huang RPh [facility] Work Phone: [phone] Telephone encounter Note* Telephone Encounter - Magda Concepcion - 08/02/2023 8:44 AM EDT Transplants: 07/20/2022 (Lung) Lab Results Component Value Date FK506 8.3 08/01/2023 CREAT 1.12 08/01/2023 K 4.6 08/01/2023 WBC 4.19 08/01/2023 ABSNEUT 2.68 08/01/2023 CMVCPY Not detected 08/01/2023 Estimated Creatinine Clearance: 80.2 mL/min (based on SCr of 1.12 mg/dL). tacrolimus IR (PROGRAF) 1 mg capsule Sig: Take 2 capsules by mouth every morning AND 2 capsules every evening. Take with 5mg capsules tacrolimus IR (PROGRAF) 5 mg capsule Sig: Take 1 capsule by mouth two times a day. Take with tacrolimus 1mg capsules [facility]06-18-[facility]24 Telephone encounter Note* Telephone Encounter - Shira Escobar RN - 07/26/2023 2:32 PM EDT Called patient and advised him due to bronch showing one colony of aspergillus we will order a chest CT and ID consult for next visit. Also, advised patient he can stop his Valcyte. Patient will have labs drawn on 07/31. [facility]06-18-2024 Miscellaneous Notes* Telephone Encounter - Shira Escobar RN - 07/26/2023 2:32 PM EDT Called patient and advised him due to bronch showing one colony of aspergillus we will order a chest CT and ID consult for next visit. Also, advised patient he can stop his Valcyte. Patient will have labs drawn on 07/31. * Telephone Encounter - Nick Mccoy MD - 07/25/2023 3:29 PM EDT I spoke with mycology lab and have sent a message to Viviane Curtis who last saw him in transplant clinic. CTG * Telephone Encounter - Xenia Flores - 07/25/2023 2:01 PM EDT Yomaira from [facility] microbiology called and stated she has a critical result for patient. She can be reached at [phone] [facility] Tele[facility] encounter Note * Telephone Encounter - Nick Mccoy MD - 07/25/2023 3:29 PM EDT I spoke with mycology lab and have sent a message to Viviane Curtis who last saw him in transplant clinic. CT[facility] Work Phone: [phone] Telephone encounter Note* Telephone Encounter - Xenia Flores - 07/25/2023 2:01 PM EDT Yomaira from [facility] microbiology called and stated she has a critical result for patient. She can be reached at [phone] [facility]2024 Telephone encounter Note* Telephone Encounter - Gayatri Cordero RN - 07/22/2023 2:47 PM EDT Labs reviewed with Dr. Curtis. Patient instructed to take 7mg of tacrolimus BID, and to have labs checked on 07/31. The following approved medication requests have been transmitted electronically. Requested Prescriptions Pending Prescriptions Disp Refills tacrolimus IR (PROGRAF) 1 mg capsule 120 capsule 11 Sig: Take 2 capsules by mouth every morning AND 2 capsules every evening. tacrolimus IR (PROGRAF) 5 mg capsule 60 capsule 11 Sig: Take 1 capsule by mouth two times a day. Gayatri Cordero RN [facility]06-14-2024 Miscellaneous Notes* Telephone Encounter - Gayatri Cordero RN - 07/22/2023 2:47 PM EDT Labs reviewed with Dr. Curtis. Patient instructed to take 7mg of tacrolimus BID, and to have labs checked on 07/31. The following approved medication requests have been transmitted electronically. Requested Prescriptions Pending Prescriptions Disp Refills tacrolimus IR (PROGRAF) 1 mg capsule 120 capsule 11 Sig: Take 2 capsules by mouth every morning AND 2 capsules every evening. tacrolimus IR (PROGRAF) 5 mg capsule 60 capsule 11 Sig: Take 1 capsule by mouth two times a day. Gayatri Cordero RN [facility] History of Present illness Narrative* Jing Stark, Research Coordinator - 07/22/2023 11:07 AM EDTSummary: IRB # [id number] [facility] Transplant Biorepos[facility] Belgica Angelo is here for IRB # [id number] [facility] Trans[facility] Visit # V7 Belgica Angelo is here for 12 months post transplant visit. Subject was met in bronchoscopy suite H23 for bronchoscopy procedure. 5 tubes of blood were obtained with their clinical blood draw and a urine sample. Next visit is due at 18 months months post transplant. Blood sample obtained? Yes Urine sample obtained? Yes Bronchoscopy sample obtained? Yes, obtained 07/21/2023 Jing Stark, Research Coordinator Subject to continue in trial documented in [facility] encounterCommunity [facility] Nurse Note* Emily Christopher - 07/21/2023 1:35 PM EDT Informed Consent and cover letter were sent to the patient via [employer] so he could read and ask questions before presenting for bronchoscopy. Patient received the Informed Consent document prior to this appointment and has read it and verbalized understanding. Risks, benefits and alternatives to study participation have been discussed. Patient was given the opportunity to ask questions, he has noquestions at this time. He wishes to proceed with study participation. He signed the Informed Consent document at 1206 on 07/21/2023 prior to any research activities being conducted. A copy of the signed Informed Consent has been given to him for his records. Emily Cevallos RN, BC, CCRP Lung Volume Reduction Coordinator [facility] Nurse Note* Emily Christopher - 07/21/2023 1:35 PM EDT Informed Consent and cover letter were sent to the patient via [employer] so he could read and ask questions before presenting for bronchoscopy. Patient received the Informed Consent document prior to this appointment and has read it and verbalized understanding. Risks, benefits and alternatives to study participation have been discussed. Patient was given the opportunity to ask questions, he has noquestions at this time. He wishes to proceed with study participation. He signed the Informed Consent document at 1206 on 07/21/2023 prior to any research activities being conducted. A copy of the signed Informed Consent has been given to him for his records. Emily Cevallos RN, BC, CCRP Lung Volume Reduction Coordinator documented in this encounterCommunity [facility] Nurse Note* Kun Reynoso RN - 07/21/2023 1:32 PM EDT POST OP LEARNING RESPONSE INSTRUCTION PROVIDED TO: Patient and family member METHOD OF INSTRUCTION: Individual instruction Written instruction/Handouts Verbal instruction PATIENT / FAMILY RESPONSE: Verbalizes understanding of: POST-PROCEDURE INSTRUCTIONS-Correct actionsto take to reduce post procedure complications FOLLOW-UP PLAN: Complete - No need for follow-up SUPPLEMENTAL MATERIAL: None REFERRAL (RECOMMENDATION): None [facility] Nurse Note* Kun Reynoso RN - 07/21/2023 1:32 PM EDT POST OP LEARNING RESPONSE INSTRUCTION PROVIDED TO: Patient and family member METHOD OF INSTRUCTION: Individual instruction Written instruction/Handouts Verbal instruction PATIENT / FAMILY RESPONSE: Verbalizes understanding of: POST-PROCEDURE INSTRUCTIONS-Correct actionsto take to reduce post procedure complications FOLLOW-UP PLAN: Complete - No need for follow-up SUPPLEMENTAL MATERIAL: None REFERRAL (RECOMMENDATION): None * Ana Porter RN - 07/15/2023 1:52 PM EDT AMBULATORY PATIENT EDUCATION READINESS TO LEARN COGNITIVE ABILITY: Alert and oriented MOTIVATION TO LEARN: Eager FAMILY SUPPORT: None - Unavailable/disinterested INSTRUCTION PROVIDED TO: Patient PATIENT LEARNS BEST BY: Verbal Instruction FACTORS AFFECTING LEARNING: None PHYSICAL LIMITATIONS AFFECTING LEARNING: None LEARNING RESPONSE DIAGNOSIS: lung disease METHOD OF INSTRUCTION: Verbal instruction PATIENT / FAMILY RESPONSE: Verbalizes understanding of: PRE-PROCEDURE INSTRUCTIONS-Correct action to take to follow pre-procedure instructions FOLLOW-UP PLAN: Complete - No need for follow-up SUPPLEMENTAL MATERIAL: None REFERRAL (RECOMMENDATION): None Electronically Signed By: Ana Porter RN In Department: ADMITTING documented in [facility] encounterCommunity [facility] NotePatient Name: Belgica Angelo Procedure Date: 07/21/2023 12:06 PM Date of : 1955 Admit Type: Outpatient Age: 67 Gender: Male Note Status: Finalized Procedure: Bronchoscopy Indications: Surveillance lung transplant Providers: Nick Mccoy MD (Doctor) Referring MD: Osbaldo Magallanes (Referring MD) Requesting Physician: Patient Profile: Refer to note in patient chart for documentation of history and physical. This is a 67 year old male. Medicines: General Anesthesia, See the Anesthesia note for documentation of the administered medications Complications: No immediate complications Estimated Blood Loss: Estimated blood loss was minimal. Procedure: Pre-Anesthesia Assessment: - A History and Physical has been performed. Patient meds and allergies have been reviewed. The risks and benefits of the procedure and the sedation options and risks were discussed with the patient. All questions were answered and informed consent was obtained. Patient identification and proposed procedure were verified prior to the procedure by the physician, the nurse, the anesthesiologist and the sausage cutter in the procedure room. Mental Status Examination: alert and oriented. Airway Examination: edentulous maxilla. Respiratory Examination: Vesicular breath sounds bilaterally. CV Examination: regular rate and rhythm. ASA Grade Assessment: III - A patient with severe systemic disease. After reviewing the risks and benefits, the patient was deemed in satisfactory condition to undergo the procedure. The anesthesia plan was to use general anesthesia. Immediately prior to administration of medications, the patient was re-assessed for adequacy to receive sedatives. The heart rate, respiratory rate, oxygen saturations, blood pressure, adequacy of pulmonary ventilation, and response to care were monitored throughout the procedure. The physical status of the patient was re-assessed after the procedure. After confirmation of universal protocol, the bronchoscope was introduced. Total fluoroscopy time was 30 seconds. The bronchoscope was introduced through the mouth, via the endotracheal tube (the patient was intubated for the procedure) and advanced to the tracheobronchial tree. Findings: Anastomoses Examination: - International Society for Heart & Lung Transplantation (ISHLT) Grading System: Anastomosis Location: left mainstem bronchus - Ischemia and Necrosis: none (no ischemia or necrosis) - Dehiscence: none (no dehiscence) - Stenosis: none (no stenosis) - Malacia: none (no malacia) Anastomosis Location: right mainstem bronchus - Ischemia and Necrosis: none (no ischemia or necrosis) - Dehiscence: none (no dehiscence) - Stenosis: none (no stenosis) - Malacia: none (no malacia). The bronchoscope was advanced until wedged at the desired location for bronchoalveolar lavage. BAL was performed in the lingula of the lung and sent for routine post lung transplant testing. 100 mL of fluid were instilled. 60 mL were returned. The return was cellular and turbid. Transbronchial biopsies were performed in the anterior medial segment of the left lower lobe using forceps and sent for histopathology examination. The procedure was guided by fluoroscopy. Transbronchial biopsy technique was selected because the sampling site was not visible endoscopically. The sampling device penetrated the full thickness of the bronchial wall to obtain the biopsy of lung tissue. Seven biopsy passes were performed. Six biopsy samples were obtained. (One pass for transplant research program.) Transbronchial biopsies were performed in the superior lingula segment of the left upper lobe using forceps and sent for histopathology examination. The procedure was guided by fluoroscopy. Transbronchial biopsy technique was selected because the sampling site was not visible endoscopically. The sampling device penetrated the full thickness of the bronchial wall to obtain the biopsy of (more content not included)...[id number] History of Present illness Narrative* Viviaen Curtis MD - 07/21/2023 9:00 AM EDT PORTIONS OF THIS NOTE WERE TAKEN FROM NOTE DATED 04/20/23 ALL THE INFORMATION BY THE RN / 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 MANAGER HAS BEEN CONFIRMED, REVIEWED AND VERIFIED BY ME Viviane Curtis MD DI Angelo is a 67 year old male s/p Bilateral Sequential Lung Transplant with Dr. Juarez on 07/20/2022 for COPD / A1AT, here for follow up. Donor with Risk Factor Labs: none 1-2 Mo 08/19/22 DUE: HBV viral DNA: not detected HCV Quant RNA: not detected HIV RNA viral load: 10/04/22 DOS 07/19/22: HBV viral DNA: not detected, HepBsAb: positive, HCV Quant RNA: not detected, HIV Ag/Ab: nonreactive Pre- Tx. 07/17/22: HBV viral DNA: not detected, HepBsAb: positive, HCV Quant RNA: not detected, HepCab: , HIV Ag/Ab: nonreactive MEDICAL HISTORY: COPD Bronchiectasis A1AT on augmentation therapy (proteinase inhibitor once/week) lung nodules neuropathy right foot SURGICAL HISTORY right foot hernia repair EXPLANT PATHOLOGY: FINAL DIAGNOSIS A-B. Left and right lungs, explant pneumonectomies: - Centrilobular emphysema. - Patchy organizing pneumonia with focal giant cells reaction. - Benign reactive hilar lymph nodes. C-D. Left and right donor lungs, upper lobes, wedge resections: - Small arteries with early, organizing thrombi. - No specific pathologic diagnosis. CFF/mm/07/23/2022 POST TRANSPLANT EVENTS: CMV: Donor: Negative / Recipient: Positive EBV: Donor: Negative / Recipient: Positive PGD Scores: Score T 0 = Grade 1 Score T12 = Grade 1 Score T24 = Grade 1 Score T48 = Grade 1 Score T72 = Grade 1 07/20/22 Transplanted 07/21: extubated 07/22: ID consult +streptococcus on recipient swab; transferred to [facility] 07/25: Pain, hallucinations improved. Dizzy, hypotensive w/ BP 80s/50s, high chest tube output, 500mL NSB given. 07/26: Orthostatic hypotension, 80s/50s. IVF. Repeat lactate 2.8 after 1 L IV NS. Started on midodrine. 07/28: Pain improved, continues on epidural. Persistent orthostasis, start mestinon. EKG w/ stable QTc, start SOPHIA ppx. 07/29: Hypotensive (BP 63/37), dizzy while sitting up in chair, CMET activated, BP stabilized to 117/53 w/ 500mL NSB & holding epidural. Increase mestinon dosing. Conferred w/ APMS - transition to oral pain regimen. Epidural removed. 07/30: Give dose of IVIG for hypogam. 07/31: Improvement of pain with blocks. IVIG stopped overnight due to facial flushing and redness on arm. Improvement of leukocytosis; remains on IV Zosyn. 08/02: Left large bore CT removed. Transitioned to oral pain regimen. 08/03: Pain site of former L large bore CT. CXR w/ 2 tiny pneumothoraces on right. Placed blakes x suction. 08/06: Deemed safe for discharge. Desaturation study performed- did not qualify for oxygen. Discharged with bilateral ana drains to bulb suction with follow up appointment with CTS requested. Tacrolimus level was 12.1 on 3mg in AM and 2.5mg in PM. Scheduled for lung transplant clinic on 08/11/22 with 3 week surveillance bronchoscopy scheduled for 08/13/22. BRONCHOSCOPY: 1 year pending 07/21/23 9 mo: 04/20/23 A0B0 6 mo: 01/19/23: AXBX 3 mo: 10/21/22: A0B0 6 wk: 09/03/22: A0B0 3 wk: 08/13/22: A0B0 DONOR SPECIFIC ANTIBODY (DSA): 07/21/23: PENDING 04/20/23: Donor specific HLA antibody to allelic DQ2 (DQB1*02:01, DQA*05:01) was detected. MFI values appear to be declining. 01/11/23: Donor specific HLA antibody to DQ2 was detected in the 01/10/2023 Post-Tx sample. MFI values appear to be stable, possibly increasing. 11/08/22: Donor specific HLA antibody to allelic DQ2 (DQB1*02:01, DQA*05:01) was detected in the 11/08/2022 Post-Tx sample. MFI values appear to be increasing. 10/21/22: Donor specific HLA antibody to allelic DQ2 (DQB1*02:01, DQA1*05:01) was detected in the 10/21/2022 Post-Tx sample. MFI values appear to be declining over time. 10/04/22: Donor specific HLA antibody to allelic DQ2 (DQB1*02:01, DQA1*05:01) was detected in the 10/04/2022 Post-Tx sample. MFI values appear to be stable. 09/01/22: Donor specific HLA antibody to allelic DQ2 (DQB1*02:01, DQA1*05:01) was detected 08/11/22: No Donor specific HLA antibody was detected 07/30/22: No Donor specific HLA antibody was detected ALLERGIES: Allergen Reactions Nsaids (Non-Steroid* Contraindication-Medical Surgical Penicillins Upset stomach CURRENT MEDICATIONS: Current Outpatient Medications on File Prior to Visit Medication Sig valGANciclovir (VALCYTE) 450 mg tablet TAKE 2 TABLETS BY MOUTH EVERY DAY WITH BREAKFAST tacrolimus IR (PROGRAF) 1 mg capsule Take 3 capsules by mouth every morning AND 2 capsules every evening. Take with Tacrolimus 5mg capsules for a total dose of 8mg of tacrolimus in the AM and 7mg in the PM tacrolimus IR (PROGRAF) 5 mg capsule Take 1 capsule by mouth two times a day. Take with tacrolimus 1mg capsules for a total dose of 8mg of tacrolimus in the AM and 7mg in the PM predniSONE (DELTASONE) 5 mg tablet Take 1 tablet by mouth once daily. atorvastatin (LIPITOR) 10 mg tablet Take 1 tablet by mouth daily at bedtime. azithromycin (ZITHROMAX) 250 mg tablet Take 1 tablet by mouth every Tuesday, Tuesday, and Tuesday. pantoprazole DR (PROTONIX) 20 mg tablet Take 1 tablet by mouth daily at 6 am. sulfamethoxazole-trimethoprim (BACTRIM DS) 800-160 mg per tablet Take 1 tablet by mouth every Tuesday,Tuesday,Tuesday. mycophenolate mofetil (CELLCEPT) 250 mg capsule Take 3 capsules by mouth twice daily. phosphorus (K PHOS NEUTRAL) 250 mg tablet Take 1 tablet by mouth twice daily. magnesium oxide (MAG-OX) 400 mg (241.3 mg magnesium) tablet Take 1 tablet by mouth twice daily. traMADol (ULTRAM) 50 mg tablet Take 1 tablet by mouth every 4 hours as needed for pain (for pain.). acetaminophen (TYLENOL) 325 mg tablet Take 2 tablets by mouth every 6 hours as needed for pain. albuterol (PROVENTIL) 2.5 mg /3 mL (0.083 %) nebulizer solution Use 3 mL via nebulizer every Tuesday,Tuesday,Tuesday. ondansetron (ZOFRAN) 4 mg tablet Take 1 tablet by mouth every 8 hours as needed for nausea/vomiting. prednisoLONE acetate (PRED FORTE) 1 % ophthalmic suspension Use 1 Drop in the right eye four times daily. furosemide (LASIX) 40 mg tablet Take 1 tablet by mouth once daily as needed. oseltamivir (TAMIFLU) 75 mg capsule Take 1 capsule by mouth two times a day. Tamiflu emergency Rx. Take upon onset of influenza symptoms and get tested as soon as possible. No current facility-administered medications on file prior to visit. NEW COMPLAINTS: Patient here for 3 month follow up visit in conjunction with 12 month bronch. Patient presents today walking and on RA. Denies any shortness of breath at rest or with exertion. Patient denies coughing, sputum, wheezing or SOB at rest. Some SONG. Afebrile. Home Spirometry readings: FEV1 2.3-2.5L and FVC 2.8-3.0L. Go FRANCA readings reviewed by MD and discussed with patient. PFTs today increased 2% since last visit, FEV1 2.92 compared to 2.86. Home BP 120-140s/70-80s and HR 90-100. Today BP 129/80 and HR 82. Currently on no BP medications. Denies chest pain, palpitations, or BLE edema. Has Lasix PRN, not taking. Appetite is good. Eats 3 meals a day. Weight today increased 5 lbs since last visit. Denies nausea,vomiting or ROMEO symptoms. Patient taking Protonix for reflux prevention. Moving bowels daily, denies diarrhea. Tremors improving. Sleep is okay, approximately 6 hours a night. Patient is doing well with medications and routine with his . ID: CMV: Donor: Negative / Recipient: Positive EBV: Donor: Negative / Recipient: Positive. Currently on Valcyte 900mg once daily, Voriconazole 200 mg completed, Ambisome 25mg completed, and Bactrim DS every Tuesday, Tuesday and Tuesday. Taking Azithromycin 250 mg and Atorvastatin 10 mg daily. REVIEW OF SYSTEMS: GENERAL: 5 lb weight loss, no malaise or fevers HEENT: Negative for frequent or significant headaches, No changes in hearing or vision, no nose bleeds or other nasal problems NECK: Negative for lumps, goiter, pain and significant neck swelling RESPIRATORY: Negative for cough, hemoptysis, wheezing, COPD, + SOB CARDIOVASCULAR: Negative for chest pain, leg swelling, hypertension, CHF or palpitations GI: No nausea, vomiting or diarrhea : No history of dysuria, frequency or incontinence MUSCULOSKELETAL: Negative for joint pain or swelling, back pain or muscle pain SKIN: Negative for lesions, rash, and itching PSYCH: Negative for sleep disturbance, mood disorder and recent psychosocial stressors HEMATOLOGY/LYMPHOLOGY: Negative for prolonged bleeding, bruising easily or swollen nodes ENDOCRINE: Negative for cold or heat intolerance, polyuria, polydipsia and goiter NEURO: No history of headaches, syncope, paralysis, seizures or tremors PATIENT TRANSPLANT KARNOFSKY INDEX AND LANSKY SCALE 80% - Normal activity with effort: some symptoms of disease. Patient Working? No, on medical disability since 2011 IMMUNIZATIONS: Hep A: 04/13/21; 07/22/21 (11/18/21) positive Hep B: 04/13/21; 07/22/21;02/24/22 (07/17/22) positive Flu vaccine: 11/18/21, 11/08/22 RSV: 12/05/22 Prevnar 20: 07/22/21 COVID 19 vaccine - Moderna ( 12/12/2020, 05/08/2020, 04/10/2020); 11/08/21, 11/08/22 Shingles: 04/19/2019, 11/16/2018 PPD/TB Quant: 04/13/21 Negative Tetanus booster: 04/13/21 RSV: 12/05/22 HEALTH MAINTENANCE: PSA: 02/24/22 0.18 needs Dermatology - 11/15/22 frozen spots on top of head, and back COLONOSCOPY: 01/30/13 ([facility]) Rectal mucosa normal. Grade 1 internal hemorrhoids. Ileum normal, mucosal and submucosal vascular patter throughout the colon was normal. No polyp or mass identified, no inflammatory changes. 07/18/23 1 polyp removed BONE DENSITY: 11/29/22 IMPRESSION: THE LOWEST T-SCORE IS -1.5 IN THE RIGHT HIP 1) DIAGNOSIS (based on BMD alone): OSTEOPENIA ENDO CONSULT: 02/25/22 with Hortencia wylie Based on FRAX and BMD, treatment is not recommended at this time. Calcium 1200 to 1500 mg daily recommended- begin calcium carbonate 600 mg daily with food. Weight bearing exercise as tolerated recommended. Fall precautions discussed. Repeat bmd on same machine as prior around 07/2023. Continued f/u with PCP for routine health maintenance advised. POST-TRANSPLANT GERD STUDIES: ESOPHAGRAM - 11/12/22 IMPRESSION: NORMAL ESOPHAGEAL EMPTYING. ESOPHAGEAL MANOMETRY- 08/16/22 Impressions EGJOO with spasm and hypercontractile esophagus, consistent with type III achalasia. Correlate clinically with timed barium esophagram, EGD, and symptoms of dysphagia. Spastic segment is 14 cm above the LES. pH PROBE- 08/25/22 Interpretations Normal study OFF PPI therapy with acid exposure time of 0.1%. Symptom association was negative to cough. GASTRIC EMPTYING- 08/19/22 IMPRESSION: NORMAL RATE OF GASTRIC EMPTYING OF SOLID MEAL PRE-TRANSPLANT GERD STUDIES: ESOPHAGEAL MONOMETRY: 07/22/21 Interpretation / Findings LES: Normal resting pressure, complete relaxation Body of the esophagus (supine): --7 swallows with normal peirstalsis --3 swallows with hypertensive peristalsis PH PROBE: 07/22/21 Normal study. GASTRIC EMPTYIN07/23/21 NORMAL RATE OF GASTRIC EMPTYING OF SOLID MEAL. PULMONARY FUNCTION TESTING: Date 07/21/23 FVC (L) 3.28 2.95 3.95 4.97 82 FEV1 (L) 2.92 2.23 3.03 3.79 96 [id number] (L/sec) 3.49 1.15 2.53 4.46 137 Time (sec) 3.32 Date 04/20/23 FVC (L) 3.10 2.96 3.96 4.98 78 FEV1 (L) 2.86 2.23 3.04 3.80 94 IWK21-06 (L/sec) 3.26 1.16 2.55 4.47 127 Time (sec) 2.78 Date 01/19/23 <-- Reviewed by Dr. Magallanes and discussed with patient FVC (L) 2.93 2.96 3.97 4.99 73 FEV1 (L) 2.73 2.24 3.05 3.81 89 LZE38-48 (L/sec) 3.41 1.17 2.56 4.49 133 Time (sec) 3.07 Date 11/29/22 FVC (L) 2.89 2.97 3.97 4.99 72 FEV1 (L) 2.67 2.24 3.05 3.81 87 EET02-71 (L/sec) 3.12 1.17 2.57 4.50 121 Time (sec) 2.91 Date 10/21/22 FVC (L) 2.80 3.05 4.09 5.14 68 FEV1 (L) 2.70 2.30 3.13 3.91 86 NVM91-83 (L/sec) 4.53 1.20 2.62 4.58 173 Time (sec) 2.05 Date 10/04/22 FVC 2.85 3.06 4.09 5.14 69 FEV1 2.70 2.30 3.13 3.91 86 UQV25-74 4.59 1.20 2.62 4.59 175 Time 3.21 Date 09/01/22 FVC (L) 2.50 3.06 4.09 5.14 61 FEV1 (L) 2.37 2.31 3.14 3.92 75 MJJ36-70 (L/sec) 4.02 1.20 2.62 4.59 153 Time (sec) 2.18 Date [id number] FVC (L) 2.26 3.06 4.09 5.14 55 FEV1 (L) 2.19 2.31 3.14 3.92 69 VKC46-35 (L/sec) 5.58 1.20 2.62 4.59 212 Time (sec) 1.90 Date 08/18/22 FVC (L) 2.23 3.06 4.09 5.14 54 FEV1 (L) 2.11 2.31 3.14 3.92 67 XLM86-19 (L/sec) 3.40 1.20 2.63 4.59 129 Time (sec) 2.35 Date: 08/11/22 FVC (L) 2.31 3.06 4.09 5.14 56 FEV1 (L) 1.95 2.31 3.14 3.92 62 SLR25-72 (L/sec) 1.83 1.21 2.63 4.60 69 Time (sec) 4.59 Date: 06/02/22 Pre-Transplant FVC (L) 2.76 3.26 4.34 5.44 63 FEV1 (L) 0.81 2.45 3.32 4.14 24 IMM47-96 (L/sec) 0.24 1.21 2.64 4.61 9 Time (sec) 14.94 The note above was reviewed with the RN coordinator, data, Review of Systems, History of Present illness verified for accuracy. The note below reflects my physical examination and plan of care. CXR:The films were personally reviewed and interpreted by me Allografts appear clear of infiltrates PHYSICAL EXAM: Performed by Dr Curtis General Appearance: alert and well-hydrated, well nourished Skin: Skin color, texture, turgor normal, no suspicious rashes or lesions Eyes: normal HENT: atraumatic Neck: full range of motion Lungs: clear to auscultation no wheezing or rhonchi CV: RRR without murmur, gallop, or rubs. No ectopy Abdomen: Normal abdominal exam Musculoskeletal: Extremities normal. No deformities, edema, or skin discoloration. Good capillary refill. Neuro: awake, oriented to time, place and person, and sensation grossly intact, No focal neurological deficit LABS: Recent Labs 07/21/23 0732 WBC 3.86 HB 10.9* HCT 36.2* PLT 225 NA 144 K 5.0 CHLOR 107 CO2 27 BUN 31* CREAT 1.86* GLUC 92 CA 9.0 MG 2.1 IMPRESSION AND PLAN Graft function: FEV1 is up 2% compared to last visit. On RA, allograft without infiltrates on imaging. Concern for ACR/ infection is low. Has DSA to DQ2, MFI appear to be stable. No known airway issues Drug Therapy Requiring Intensive Monitoring for Toxicity, following levels to adjust dose as needed Continue tacrolimus, Level pending, Goal 10 Continue prednisone 5mg Continue MMF 750mg BID SOPHIA prophylaxis: Continue azithromycin, atorvastatin ID: Afebrile, concern for infection is low. PJP prophylaxis: Bactrim DS MWF CMV prophylaxis: On valcyte 900mg daily. Will discuss stopping once TBBx results Fungal prophylaxis: Completed CMV level: Pending EBV level: Pending CVS: HTN: Well controlled. Not on meds HLP: Continue statin GI: GERD: Continue PPI Renal: CKD stage 3, Stable Estimated Creatinine Clearance: 48.3 mL/min (A) (based on SCr of 1.86 mg/dL (H)). 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 Will refer to Tx psych. He is going to follow up with PCP and his pain management physician HM: Needs PSA and bone health F/u in 3 months with routine testing, PSA, bone health, Tx psych Viviane Curtis MD documented [facility] History of Present illness Narrative* Mu Ramirez Tech - 07/21/2023 8:25 AM EDT PULM FUNCTION: Provider: Osbaldo Magallanes MD Spirometry: 1 System: MC8 - [id number] documented in this [facility] History of Present illness Narrative* Mei Lucia RT(R) - 07/21/2023 7:55 AM EDT Radiology Service Progress Note PATIENT NAME: Belgica Angelo DATE OF SERVICE: July 21, 2023 TIME: 8:02 AM PATIENT IDENTITY VERIFICATION COMPLETED USING TWO (2) IDENTIFIERS: Name and Date of confirmedby patient verbally. FALL SCREENING: Has the patient had 2 falls in the last year or 1 fall with injury or currently using an Ambulatory Assistive Device (Walker, Cane, Wheelchair, Crutches, etc.)? No PATIENT GENDER DATA: Male PATIENT RELEVANT IMPLANT DATA REVIEWED: Not Applicable PATIENT PRESENTS WITH AN IMPLANTABLE OR ATTACHED CURATOR NATURAL HISTORY MUSEUM: No RADIOLOGY DEPARTMENT: General X-ray: Exam(s) Completed: Chest X-Ray PERIPHERAL IV DATA: Not applicable SIGNED BY: RT Miguel([place]) July 21, 2023 8:02 AM documented in this encounterCommunity [facility]06-[facility]24 Hospital Discharge instructions* Discharge Instructions* Shiloh Dobson RN - 07/18/2023 9:25 AM EDT Patient Instructions after a Colonoscopy The anesthetics, sedatives or narcotics which were given to you today will be acting in your body for the next 24 hours, so you might feel a little sleepy or groggy. This feeling should slowly wear off. Carefully read and follow the instructions. You received sedation today: - Do not drive or operate any machinery or power tools of any kind. - No alcoholic beverages today, not even beer or wine. - Do not make any important decisions or sign any legal documents. - No over the counter medications that contain alcohol or that may cause drowsiness. - Do not make any important decisions or sign any legal documents. - Make sure you have someone with you for first 24 hours. While it is common to experience mild to moderate abdominal distention, gas, or belching after yourprocedure, if any of these symptoms occur following discharge from the GI Lab or within one week ofhaving your procedure, call the [facility] to be advised whether a visit to your nearest Urgent Care or Emergency Department is indicated. Take this paper with you if you go. - If you develop an allergic reaction to the medications that were given during your procedure suchas difficulty breathing, rash, hives, severe nausea, vomiting or lightheadedness. - If you experience chest pain, shortness of breath, severe abdominal pain, fevers and chills. -If you develop signs and symptoms of bleeding such as blood in your spit, if your stools turn black, tarry, or bloody - If you have not urinated within 8 hours following your procedure. - If your IV site becomes painful, red, inflamed, or looks infected. If you received a biopsy/polypectomy/sphincterotomy the following instructions apply below: __ Do not use Aspirin containing products, non-steroidal medications or anti- coagulants for one week following your procedure. (Examples of these types of medications are: Advil, Arthrotec, Aleve, Coumadin, Ecotrin, Heparin, Ibuprofen, Indocin, Motrin, Naprosyn, Nuprin, Plavix, Vioxx, and Voltarin,or their generic forms. This list is not all-inclusive. Check with your physician or pharmacist before resuming medications.) __ Eat a soft diet today. Avoid foods that are poorly digested for the next 24 hours. These foods would include: nuts, beans, lettuce, red meats, and fried foods. Start with liquids and advance your diet as tolerated, gradually work up to eating solids. __ Do not have a Barium Study or Enema for one week. Your physician recommends the additional following instructions: -You have a contact number available for emergencies. The signs and symptoms of potential delayed complications were discussed with you. You may return to normal activities tomorrow. -Resume your previous diet. -Continue your present medications. -We are waiting for your pathology results. -Your physician has recommended a repeat colonoscopy (date to be determined after pending pathologyresults are reviewed) for surveillance based on pathology results. -The findings and recommendations have been discussed with you. -The findings and recommendations were discussed with your family. - Please see Medication Reconciliation Form for new medication/medications prescribed. If you experience any problems or have any questions following discharge from the GI Lab, please call: or call Dr. Leahy's office documented in this [facility] Work Phone: [phone] 445-166206-10-2024 History and physical note* Consuelo Leahy, - 07/18/2023 7:30 AM EDT History Of Present Illness Belgica Angelo is a 67 y.o. male presenting with bilateral lung transplant presents for routine screening colonoscopy. Procedure being performed in OR with anesthesia support.. Past Medical History Past Medical History: Diagnosis Date GERD (gastroesophageal reflux disease) Hyperlipidemia Surgical History Past Surgical History: Procedure Laterality Date FOOT SURGERY HERNIA REPAIR LUNG TRANSPLANT Bilateral Social History He reports that he has quit smoking. His smoking use included cigarettes. He has never used smokeless tobacco. He reports that he does not currently use alcohol. He reports that he does not use drugs. Family History No family history on file. Allergies No Known Allergies Review of Systems Pre-sedation Evaluation: ASA Classification - ASA 3 - Patient with moderate systemic disease with functional limitations Mallampati Score - II (hard and soft palate, upper portion of tonsils and uvula visible) Physical Exam Vitals and nursing note reviewed. Constitutional: Appearance: Normal appearance. HENT: Head: Normocephalic. Mouth/Throat: Mouth: Mucous membranes are moist. Pharynx: Oropharynx is clear. Eyes: Pupils: Pupils are equal, round, and reactive to light. Cardiovascular: Rate and Rhythm: Normal rate and regular rhythm. Heart sounds: Normal heart sounds. Pulmonary: Effort: Pulmonary effort is normal. Breath sounds: Normal breath sounds. Abdominal: General: Abdomen is flat. Bowel sounds are normal. Palpations: Abdomen is soft. Musculoskeletal: General: Normal range of motion. Cervical back: Normal range of motion and neck supple. Skin: General: Skin is warm and dry. Neurological: General: No focal deficit present. Mental Status: He is alert and oriented to person, place, and time. Psychiatric: Mood and Affect: Mood normal. Behavior: Behavior normal. Last Recorded Vitals Blood pressure (!) 146/92, pulse 96, temperature 36.9 C (98.5 F), temperature source Temporal, resp. rate 18, height 1.778 m (5' 10), weight 109 kg (239 lb 13.8 oz), SpO2 97%. 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 chlorpheniramine maleate (ALLERGY, CHLORPHENIRAMINE, ORAL) Take 1 tablet by mouth once daily. magnesium oxide (Mag-Ox) 400 mg (241.3 mg magnesium) tablet Take 1 tablet (400 mg) by mouth 2 timesa day. mycophenolate (Cellcept) 250 mg capsule Take 3 capsules (750 mg) by mouth 2 times a day. pantoprazole (ProtoNix) 20 mg EC tablet Take 1 tablet (20 mg) by mouth once daily in the morning. Take before meals. Do not crush, chew, or split. predniSONE (Deltasone) 5 mg tablet Take 1 tablet (5 mg) by mouth once daily. sod phos di, mono-K phos mono (K Phos Neutral) tablet Take by mouth once daily. sulfamethoxazole-trimethoprim (Bactrim DS) 800-160 mg tablet Take 1 tablet by mouth once a day on Tuesday, Tuesday, and Tuesday. tacrolimus (Prograf) 1 mg capsule Take 3 capsules (3 mg) by mouth 2 times a day. tacrolimus (Prograf) 5 mg capsule Take 1 capsule (5 mg) by mouth 2 times a day. traMADol (Ultram) 50 mg tablet Take 1 tablet (50 mg) by mouth 4 times a day. valGANciclovir (Valcyte) 450 mg tablet Take 2 tablets (900 mg) by mouth once daily. Do not crush orchew. Current Facility-Administered Medications Medication Dose Route Frequency Provider Last Rate Last Admin lactated Ringer's infusion 100 mL/hr intravenous Continuous Conchita Bronson MD midazolam (Versed) injection 2 mg 2 mg intravenous Once PRN Conchita Bronson MD ondansetron (Zofran) injection 4 mg 4 mg intravenous Once MD Consuelo Barnes DO [facility] Work Phone: [phone] History and physical note* Consuelo Leahy DO - 07/18/2023 7:30 AM EDT History Of Present Illness Belgica Angelo is a 67 y.o. male presenting with bilateral lung transplant presents for routine screening colonoscopy. Procedure being performed in OR with anesthesia support.. Past Medical History Past Medical History: Diagnosis Date GERD (gastroesophageal reflux disease) Hyperlipidemia Surgical History Past Surgical History: Procedure Laterality Date FOOT SURGERY HERNIA REPAIR LUNG TRANSPLANT Bilateral Social History He reports that he has quit smoking. His smoking use included cigarettes. He has never used smokeless tobacco. He reports that he does not currently use alcohol. He reports that he does not use drugs. Family History No family history on file. Allergies No Known Allergies Review of Systems Pre-sedation Evaluation: ASA Classification - ASA 3 - Patient with moderate systemic disease with functional limitations Mallampati Score - II (hard and soft palate, upper portion of tonsils and uvula visible) Physical Exam Vitals and nursing note reviewed. Constitutional: Appearance: Normal appearance. HENT: Head: Normocephalic. Mouth/Throat: Mouth: Mucous membranes are moist. Pharynx: Oropharynx is clear. Eyes: Pupils: Pupils are equal, round, and reactive to light. Cardiovascular: Rate and Rhythm: Normal rate and regular rhythm. Heart sounds: Normal heart sounds. Pulmonary: Effort: Pulmonary effort is normal. Breath sounds: Normal breath sounds. Abdominal: General: Abdomen is flat. Bowel sounds are normal. Palpations: Abdomen is soft. Musculoskeletal: General: Normal range of motion. Cervical back: Normal range of motion and neck supple. Skin: General: Skin is warm and dry. Neurological: General: No focal deficit present. Mental Status: He is alert and oriented to person, place, and time. Psychiatric: Mood and Affect: Mood normal. Behavior: Behavior normal. Last Recorded Vitals Blood pressure (!) 146/92, pulse 96, temperature 36.9 C (98.5 F), temperature source Temporal, resp. rate 18, height 1.778 m (5' 10), weight 109 kg (239 lb 13.8 oz), SpO2 97%. 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 chlorpheniramine maleate (ALLERGY, CHLORPHENIRAMINE, ORAL) Take 1 tablet by mouth once daily. magnesium oxide (Mag-Ox) 400 mg (241.3 mg magnesium) tablet Take 1 tablet (400 mg) by mouth 2 timesa day. mycophenolate (Cellcept) 250 mg capsule Take 3 capsules (750 mg) by mouth 2 times a day. pantoprazole (ProtoNix) 20 mg EC tablet Take 1 tablet (20 mg) by mouth once daily in the morning. Take before meals. Do not crush, chew, or split. predniSONE (Deltasone) 5 mg tablet Take 1 tablet (5 mg) by mouth once daily. sod phos di, mono-K phos mono (K Phos Neutral) tablet Take by mouth once daily. sulfamethoxazole-trimethoprim (Bactrim DS) 800-160 mg tablet Take 1 tablet by mouth once a day on Tuesday, Tuesday, and Tuesday. tacrolimus (Prograf) 1 mg capsule Take 3 capsules (3 mg) by mouth 2 times a day. tacrolimus (Prograf) 5 mg capsule Take 1 capsule (5 mg) by mouth 2 times a day. traMADol (Ultram) 50 mg tablet Take 1 tablet (50 mg) by mouth 4 times a day. valGANciclovir (Valcyte) 450 mg tablet Take 2 tablets (900 mg) by mouth once daily. Do not crush orchew. Current Facility-Administered Medications Medication Dose Route Frequency Provider Last Rate Last Admin lactated Ringer's infusion 100 mL/hr intravenous Continuous Conchita Bronson MD midazolam (Versed) injection 2 mg 2 mg intravenous Once PRN Conchita Bronson MD ondansetron (Zofran) injection 4 mg 4 mg intravenous Once MD Consuelo Barnes DO documented in this [facility] Work Phone: [phone]) 411-658206-07-2024 Nurse Note* Ana Porter RN - 07/15/2023 1:52 PM EDT AMBULATORY PATIENT EDUCATION READINESS TO LEARN COGNITIVE ABILITY: Alert and oriented MOTIVATION TO LEARN: Eager FAMILY SUPPORT: None - Unavailable/disinterested INSTRUCTION PROVIDED TO: Patient PATIENT LEARNS BEST BY: Verbal Instruction FACTORS AFFECTING LEARNING: None PHYSICAL LIMITATIONS AFFECTING LEARNING: None LEARNING RESPONSE DIAGNOSIS: lung disease METHOD OF INSTRUCTION: Verbal instruction PATIENT / FAMILY RESPONSE: Verbalizes understanding of: PRE-PROCEDURE INSTRUCTIONS-Correct action to take to follow pre-procedure instructions FOLLOW-UP PLAN: Complete - No need for follow-up SUPPLEMENTAL MATERIAL: None REFERRAL (RECOMMENDATION): None Electronically Signed By: Ana Porter RN In Department: [facility] History of Present illness Narrative* Keshav Phillips APRN.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 MANAGER - 07/11/2023 1:27 PM EDT Chief Complaint Patient presents with: [facility] HPI Belgica Angelo is a 67 year old male who presents here today for Above Complaints.. Patient presents to establish care. Past medical history, appointments, medications, allergies reviewed. Previous Medical History PAST MEDICAL HISTORY Diagnosis Date Asthma Bronchiectasis (HCC) COPD (chronic obstructive pulmonary disease) ([facility]) Dependence on supplemental oxygen Heterozygous alpha 1-antitrypsin deficiency (HCC) PiMZ Lung nodule Pain in joint, ankle and foot S/P lung transplant ([facility]) Previous Surgical History PAST SURGICAL HISTORY Procedure Laterality Date LUNG TRANSPLANT,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 PAST SURGICAL HISTORY OF 02/07/2011 Rt foot reconstruction REMV CATARACT EXTRACAP,INSERT LENS REMV CATARACT EXTRACAP,INSERT LENS Right 04/28/2023 SN60WF +20.0 D RPR UMBILICAL HRNA 5 YRS/> REDUCIBLE 07/26/2012 Hernia repair, umbilical >5yr Family History FAMILY HISTORY Problem Relation Age of Onset COPD Mother Heart disease Father Breast Cancer Sister No Known Problems Sister No Known Problems Sister COPD Brother COPD Brother Patient Allergies ALLERGIES Allergen Reactions Nsaids (Non-Steroid* Contraindication-Medical Surgical Patient states he is not allergic to Nsaids- caused upset stomach Penicillins GI Upset Patient states he is not allergic to penicillin- caused upset stomach Current Medications Current Outpatient Medications on File Prior to Visit Medication Sig valGANciclovir (VALCYTE) 450 mg tablet TAKE 2 TABLETS BY MOUTH EVERY DAY WITH BREAKFAST tacrolimus IR (PROGRAF) 1 mg capsule Take 3 capsules by mouth every morning AND 2 capsules every evening. Take with Tacrolimus 5mg capsules for a total dose of 8mg of tacrolimus in the AM and 7mg in the PM tacrolimus IR (PROGRAF) 5 mg capsule Take 1 capsule by mouth two times a day. Take with tacrolimus 1mg capsules for a total dose of 8mg of tacrolimus in the AM and 7mg in the PM prednisoLONE acetate (PRED FORTE) 1 % ophthalmic suspension Use 1 Drop in the right eye four times daily. predniSONE (DELTASONE) 5 mg tablet Take 1 tablet by mouth once daily. atorvastatin (LIPITOR) 10 mg tablet Take 1 tablet by mouth daily at bedtime. azithromycin (ZITHROMAX) 250 mg tablet Take 1 tablet by mouth every Tuesday, Tuesday, and Tuesday. pantoprazole DR (PROTONIX) 20 mg tablet Take 1 tablet by mouth daily at 6 am. oseltamivir (TAMIFLU) 75 mg capsule Take 1 capsule by mouth two times a day. Tamiflu emergency Rx. Take upon onset of influenza symptoms and get tested as soon as possible. sulfamethoxazole-trimethoprim (BACTRIM DS) 800-160 mg per tablet Take 1 tablet by mouth every Tuesday,Tuesday,Tuesday. mycophenolate mofetil (CELLCEPT) 250 mg capsule Take 3 capsules by mouth twice daily. phosphorus (K PHOS NEUTRAL) 250 mg tablet Take 1 tablet by mouth twice daily. magnesium oxide (MAG-OX) 400 mg (241.3 mg magnesium) tablet Take 1 tablet by mouth twice daily. traMADol (ULTRAM) 50 mg tablet Take 1 tablet by mouth every 4 hours as needed for pain (for pain.). lidocaine (LMX) 4 % cream Apply to affected area as needed (pain around incision site). (Patient taking differently: Apply 1 application to affected area as needed (pain around incision site).) acetaminophen (TYLENOL) 325 mg tablet Take 2 tablets by mouth every 6 hours as needed for pain. camphor-methyl salicyl-menthol (SALONPAS) 3.1-10-6 % ptmd Use as needed for back pain, joint pain, and pain around clamshell incision. Apply 12 hours on and 12 hours off albuterol (PROVENTIL) 2.5 mg /3 mL (0.083 %) nebulizer solution Use 3 mL via nebulizer every Tuesday,Tuesday,Tuesday. ondansetron (ZOFRAN) 4 mg tablet Take 1 tablet by mouth every 8 hours as needed for nausea/vomiting. furosemide (LASIX) 40 mg tablet Take 1 tablet by mouth once daily as needed. No current facility-administered medications on file prior to visit. Social History Social History Tobacco Use Smoking status: Former Packs/day: 4.00 Years: 30.00 Additional pack years: 0.00 Total pack years: 120.00 Types: Cigarettes Quit date: 2010 Years since quittin.4 Smokeless tobacco: Never Vaping Use Vaping Use: Never used Substance Use Topics Alcohol use: Never Drug use: Never Review of Symptoms REVIEW OF SYSTEMS SEE HPI EXAM: BP 114/73 Pulse 106 Resp 16 Wt 108.4 kg (239 lb) BMI 34.29 kg/m General Appearance: Well appearing, alert, in no acute distress, well-hydrated, well nourished.. Skin: Skin color, texture, turgor normal, no suspicious rashes or lesions. Scar to chest from axilla to axilla. Multiple scars on abdomen. Lungs: Lungs clear to auscultation. No wheezing, rhonchi, rales.. Heart: RRR without murmur, gallop, or rubs. No ectopy. Abdomen: Normal abdominal exam, Abdomen soft, non-tender. Bowel sounds normal. No masses, organomegaly. Musculoskeletal: No joint swelling, deformity, or tenderness. Peripheral Pulses: Normal. Neurologic: Gait normal. Reflexes normal and symmetric. Sensation grossly intact.. Health Maintenance List Abdominal Aortic Aneurysm Screening Never done Meningococcal Conjugate Vaccine(1 - Risk 2-dose series) Never done Annual PCP Team Chronic Disease Visit Never done Colorectal Cancer Screening Never done Hepatitis A Vaccine(3 of 3 - Hep A Twinrix risk 3-dose series) due on 12/22/2021 Lung Cancer Screening due on 11/18/2022 Covid-19 Vaccine() due on 01/03/2023 Advance Directive Discussion Never done Behavioral Health Screening Never done BP Controlled (<130/80) due on 04/28/2024 Diabetes Screening due on 07/04/2026 Prostate Cancer Screening Discussion due on 02/24/2027 Lipid Screening due on 04/19/2028 DTaP,Tdap,Td Vaccine(2 - Td or Tdap) due on 04/14/2031 Alpha-1 Antitrypsin Deficiency Screening Completed Spirometry Completed Influenza Vaccine Completed RSV Vaccine Completed Hepatitis C Screening Completed Shingrix Vaccine Completed Pneumococcal Vaccine: 65+ Completed HPV Vaccine Aged Out ASSESSMENT/PLAN: 1. Essential hypertension - ICD9: 401.9, ICD10: I10 (primary diagnosis) - Controlled - Continue current medications - Recommend home blood pressure monitoring, to bring results to next visit - Encouraged sodium restriction, DASH or Mediterranean diet - Recommend regular aerobic exercise - Discussed need for and benefit of weight loss. BMI 34.29 kg/(m^2) 2. Encounter for immunization - ICD9: V03.89, ICD10: Z23 - Style on Screen-Adenios COVID-19 VACCINE ( SEASON) AGE 12+ YR 3. Mixed hyperlipidemia - ICD9: 272.2, ICD10: E78.2 - Control undetermined, due for labs - Continue current medications - Counseled on healthy diet and regular exercise 4. 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 Gastroesophageal reflux disease without esophagitis - ICD9: 530.81, ICD10: K21.9 - Continue treatment with Pantoprazole QD 6. Obesity, Class I, BMI 30-34.9 - ICD9: 278.00, ICD10: E66.9 -Stable 7. Status post cataract extraction and insertion of intraocular lens of left eye - ICD9: V45.61, V43.1, ICD10: Z98.42, Z96.1 -Follows with optometry 8. Steroid-induced osteopenia - ICD9: 733.90, E932.0, ICD10: M85.80, T38.0X5A - Reviewed the need for Calcium and Vitamin D supplements and weight bearing exercise as tolerated Keshav Phillips APRN.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 MANAGER [facility] Telephone encounter Note * Telephone Encounter - Eileen Cm RPh - 07/06/2023 8:15 AM EDT Tacrolimus level was therapeutic at 10.2 (goal 12). Current dose is 8/7. Would recommend no change to current dose. Recheck labs in 2 weeks. Eileen Cm RPh [facility] Work Phone: [phone] Miscellaneous Notes* Telephone Encounter - Eileen Cm RPh - 07/06/2023 8:15 AM EDT Tacrolimus level was therapeutic at 10.2 (goal 12). Current dose is 8/7. Would recommend no change to current dose. Recheck labs in 2 weeks. Eileen Cm RPh * Telephone Encounter - Magda Concepcion - 07/06/2023 8:09 AM EDT Transplants: 07/20/2022 (Lung) Lab Results Component Value Date FK506 10.2 07/05/2023 CREAT 1.40 (H) 07/05/2023 K 4.6 07/05/2023 WBC 4.02 07/05/2023 ABSNEUT 2.57 07/05/2023 CMVCPY Not detected 07/05/2023 Estimated Creatinine Clearance: 63.4 mL/min (A) (based on SCr of 1.4 mg/dL (H)). tacrolimus IR (PROGRAF) 1 mg capsule Sig: Take 3 capsules by mouth every morning AND 2 capsules every evening. Take with Tacrolimus 5mg capsules for a total dose of 8mg of tacrolimus in the AM and 7mg in the PM tacrolimus IR (PROGRAF) 5 mg capsule Sig: Take 1 capsule by mouth two times a day. Take with tacrolimus 1mg capsules for a total dose of8mg of tacrolimus in the AM and 7mg in the PM [facility] Tele[facility] encounter Note * Telephone Encounter - Magda Concepcion - 07/06/2023 8:09 AM EDT Transplants: 07/20/2022 (Lung) Lab Results Component Value Date FK506 10.2 07/05/2023 CREAT 1.40 (H) 07/05/2023 K 4.6 07/05/2023 WBC 4.02 07/05/2023 ABSNEUT 2.57 07/05/2023 CMVCPY Not detected 07/05/2023 Estimated Creatinine Clearance: 63.4 mL/min (A) (based on SCr of 1.4 mg/dL (H)). tacrolimus IR (PROGRAF) 1 mg capsule Sig: Take 3 capsules by mouth every morning AND 2 capsules every evening. Take with Tacrolimus 5mg capsules for a total dose of 8mg of tacrolimus in the AM and 7mg in the PM tacrolimus IR (PROGRAF) 5 mg capsule Sig: Take 1 capsule by mouth two times a day. Take with tacrolimus 1mg capsules for a total dose of8mg of tacrolimus in the AM and 7mg in the PM [facility] Tele[facility] encounter Note* Telephone Encounter - Bety Burrell RN - 06/29/2023 2:28 PM EDT The following approved medication requests have been transmitted electronically. Requested Prescriptions Pending Prescriptions Disp Refills valGANciclovir (VALCYTE) 450 mg tablet [Pharmacy Med Name: VALGANCICLOVIR 450 MG TABLET] 180 tablet3 Sig: TAKE 2 TABLETS BY MOUTH EVERY DAY WITH BREAKFAST Bety Burrell RN [facility] Miscellaneous Notes* Telephone Encounter - Bety Burrell RN - 06/29/2023 2:28 PM EDT The following approved medication requests have been transmitted electronically. Requested Prescriptions Pending Prescriptions Disp Refills valGANciclovir (VALCYTE) 450 mg tablet [Pharmacy Med Name: VALGANCICLOVIR 450 MG TABLET] 180 tablet3 Sig: TAKE 2 TABLETS BY MOUTH EVERY DAY WITH BREAKFAST Bety Burrell RN documented in [facility] Telephone encounter Note * Telephone Encounter - Shira Escobar RN - 06/28/2023 8:30 AM EDT Patient admits he did miss a dose of his Tacrolimus. He will have his labs drawn again next week. [facility] Miscellaneous Notes* Telephone Encounter - Shira Escobar RN - 06/28/2023 8:30 AM EDT Patient admits he did miss a dose of his Tacrolimus. He will have his labs drawn again next week. * Telephone Encounter - Shukri Huang RPh - 06/28/2023 8:21 AM EDT Tacrolimus level was subtherapeutic at 8.1 (goal ~12). Current dose is 8/7. Would recommend increasing dose to 9/8 (please verify no recent missed doses prior to dose increase). Recheck labs in 2 weeks. Shukri Huang RPh * Telephone Encounter - Magda Concepcion - 06/28/2023 8:09 AM EDT Transplants: 07/20/2022 (Lung) Lab Results Component Value Date FK506 8.1 06/27/2023 CREAT 1.35 (H) 06/27/2023 K 4.5 06/27/2023 WBC 3.80 06/27/2023 ABSNEUT 2.39 06/27/2023 CMVCPY Not detected 06/27/2023 Estimated Creatinine Clearance: 65.8 mL/min (A) (based on SCr of 1.35 mg/dL (H)). tacrolimus IR (PROGRAF) 1 mg capsule 150 capsule 11 06/07/2023 06/06/2024 Sig: Take 3 capsules by mouth every morning AND 2 capsules every evening. Take with Tacrolimus 5mg capsules for a total dose of 8mg of tacrolimus in the AM and 7mg in the PM tacrolimus IR (PROGRAF) 5 mg capsule 60 capsule Sig: Take 1 capsule by mouth two times a day. Take with tacrolimus 1mg capsules for a total dose of8mg of tacrolimus in the AM and 7mg in the PM documented in [facility]Community [facility] Telephone encounter Note * Telephone Encounter - Shukri Huang RPh - 06/28/2023 8:21 AM EDT Tacrolimus level was subtherapeutic at 8.1 (goal ~12). Current dose is 8/7. Would recommend increasing dose to 9/8 (please verify no recent missed doses prior to dose increase). Recheck labs in 2 weeks. Shukri Huang RPh [facility] Work Phone: [phone] Telephone encounter Note* Telephone Encounter - Magda Concepcion - 06/28/2023 8:09 AM EDT Transplants: 07/20/2022 (Lung) Lab Results Component Value Date FK506 8.1 06/27/2023 CREAT 1.35 (H) 06/27/2023 K 4.5 06/27/2023 WBC 3.80 06/27/2023 ABSNEUT 2.39 06/27/2023 CMVCPY Not detected 06/27/2023 Estimated Creatinine Clearance: 65.8 mL/min (A) (based on SCr of 1.35 mg/dL (H)). tacrolimus IR (PROGRAF) 1 mg capsule 150 capsule 11 06/07/2023 06/06/2024 Sig: Take 3 capsules by mouth every morning AND 2 capsules every evening. Take with Tacrolimus 5mg capsules for a total dose of 8mg of tacrolimus in the AM and 7mg in the PM tacrolimus IR (PROGRAF) 5 mg capsule 60 capsule Sig: Take 1 capsule by mouth two times a day. Take with tacrolimus 1mg capsules for a total dose of8mg of tacrolimus in the AM and 7mg in the PM T [facility] Telephone encounter Note* Telephone Encounter - Shira Escobar RN - 06/14/2023 12:14 PM EDT Reviewed labs with varinder Huang. Patient advised no changes in medication and will have labs repeated on 06/26. [facility] Miscellaneous Notes* Telephone Encounter - Shira Escobar RN - 06/14/2023 12:14 PM EDT Reviewed labs with Justin Huang. Patient advised no changes in medication and will have labs repeated on 06/26. * Telephone Encounter - Shukri Huang RPh - 06/14/2023 9:33 AM EDT Tacrolimus level was therapeutic at 11.6 (goal ~12). Current dose is 8/7. Would recommend no changeto current dose. Recheck labs in 2 weeks. Please provide education on K sparing diet. Shukri Huang RPh * Telephone Encounter - Magda Concepcion - 06/14/2023 9:09 AM EDT Transplants: 07/20/2022 (Lung) Lab Results Component Value Date FK506 11.6 06/13/2023 CREAT 1.38 (H) 06/13/2023 K 5.2 (H) 06/13/2023 WBC 4.45 06/13/2023 ABSNEUT 3.07 06/13/2023 CMVCPY Not detected 06/13/2023 Estimated Creatinine Clearance: 64.3 mL/min (A) (based on SCr of 1.38 mg/dL (H)). tacrolimus IR (PROGRAF) 1 mg capsule Sig: Take 3 capsules by mouth every morning AND 2 capsules every evening. Take with Tacrolimus 5mg capsules for a total dose of 8mg of tacrolimus in the AM and 7mg in the PM tacrolimus IR (PROGRAF) 5 mg capsule Sig: Take 1 capsule by mouth two times a day. Take with tacrolimus 1mg capsules for a total dose of8mg of tacrolimus in the AM and 7mg in the PM documented in [facility] encounterCommunity [facility] Telephone encounter Note * Telephone Encounter - Shukri Huang RPh - 06/14/2023 9:33 AM EDT Tacrolimus level was therapeutic at 11.6 (goal ~12). Current dose is 8/7. Would recommend no changeto current dose. Recheck labs in 2 weeks. Please provide education on K sparing diet. Shukri Huang RPh [facility] Work Phone: 1(953) 431-946705-07-2024 Telephone encounter Note* Telephone Encounter - Magda Concepcion - 06/14/2023 9:09 AM EDT Transplants: 07/20/2022 (Lung) Lab Results Component Value Date FK506 11.6 06/13/2023 CREAT 1.38 (H) 06/13/2023 K 5.2 (H) 06/13/2023 WBC 4.45 06/13/2023 ABSNEUT 3.07 06/13/2023 CMVCPY Not detected 06/13/2023 Estimated Creatinine Clearance: 64.3 mL/min (A) (based on SCr of 1.38 mg/dL (H)). tacrolimus IR (PROGRAF) 1 mg capsule Sig: Take 3 capsules by mouth every morning AND 2 capsules every evening. Take with Tacrolimus 5mg capsules for a total dose of 8mg of tacrolimus in the AM and 7mg in the PM tacrolimus IR (PROGRAF) 5 mg capsule Sig: Take 1 capsule by mouth two times a day. Take with tacrolimus 1mg capsules for a total dose of8mg of tacrolimus in the AM and 7mg in the PM T [facility] Tele[facility] encounter Note* Telephone Encounter - Gayatri Cordero RN - 05/31/2023 11:49 AM EDT Labs reviewed with Chaya Anderson. Patient instructed to take 8mg of tacrolimus in the AM and 7mg in thePM. Patient instructed to have labs checked on 06/12. The following approved medication requests have been transmitted electronically. Requested Prescriptions Pending Prescriptions Disp Refills tacrolimus IR (PROGRAF) 1 mg capsule 450 capsule 3 Sig: Take 3 capsules by mouth every morning AND 2 capsules every evening. tacrolimus IR (PROGRAF) 5 mg capsule 180 capsule 3 Sig: Take 1 capsule by mouth two times a day. Gayatri Cordero RN [facility] Miscellaneous Notes* Telephone Encounter - Gayarti Cordero RN - 05/31/2023 11:49 AM EDT Labs reviewed with Chaya Anderson. Patient instructed to take 8mg of tacrolimus in the AM and 7mg in thePM. Patient instructed to have labs checked on 06/12. The following approved medication requests have been transmitted electronically. Requested Prescriptions Pending Prescriptions Disp Refills tacrolimus IR (PROGRAF) 1 mg capsule 450 capsule 3 Sig: Take 3 capsules by mouth every morning AND 2 capsules every evening. tacrolimus IR (PROGRAF) 5 mg capsule 180 capsule 3 Sig: Take 1 capsule by mouth two times a day. Gayatri Cordero RN * Telephone Encounter - Eileen Cm RPh - 05/31/2023 9:26 AM EDT Tacrolimus level was subtherapeutic at 9.7 (goal 12). Current dose is 7/7. Would recommend increasing dose to 8/7 . Recheck labs in 2 weeks. Eileen Cm RPh * Telephone Encounter - Magda Concepcion - 05/31/2023 8:23 AM EDT Transplants: 07/20/2022 (Lung) Lab Results Component Value Date FK506 9.7 05/30/2023 CREAT 1.55 (H) 05/30/2023 K 4.9 05/30/2023 WBC 4.54 05/30/2023 ABSNEUT 2.95 05/30/2023 CMVCPY Not detected 05/30/2023 Estimated Creatinine Clearance: 57.3 mL/min (A) (based on SCr of 1.55 mg/dL (H)). tacrolimus IR (PROGRAF) 1 mg capsule Sig: Take 2 capsules by mouth two times a day. In combination with 5mg capsules 8mg in the AM and 7mg in the PM tacrolimus IR (PROGRAF) 5 mg capsule Sig: Take 1 capsule by mouth two times a day. documented in [facility]Community [facility]04[facility] Telephone encounter Note * Telephone Encounter - Eileen mC RPh - 05/31/2023 9:26 AM EDT Tacrolimus level was subtherapeutic at 9.7 (goal 12). Current dose is 7/7. Would recommend increasing dose to 8/7 . Recheck labs in 2 weeks. Eileen Cm RPh [facility] Work Phone: [phone] Telephone encounter Note* Telephone Encounter - Magda Concepcion - 05/31/2023 8:23 AM EDT Transplants: 07/20/2022 (Lung) Lab Results Component Value Date FK506 9.7 05/30/2023 CREAT 1.55 (H) 05/30/2023 K 4.9 05/30/2023 WBC 4.54 05/30/2023 ABSNEUT 2.95 05/30/2023 CMVCPY Not detected 05/30/2023 Estimated Creatinine Clearance: 57.3 mL/min (A) (based on SCr of 1.55 mg/dL (H)). tacrolimus IR (PROGRAF) 1 mg capsule Sig: Take 2 capsules by mouth two times a day. In combination with 5mg capsules 8mg in the AM and 7mg in the PM tacrolimus IR (PROGRAF) 5 mg capsule Sig: Take 1 capsule by mouth two times a day. [facility] History of Present illness Narrative* Evan May MD - 05/27/2023 9:12 AM EDT ASSESSMENT/PLAN: 1. Status post cataract extraction and insertion of intraocular lens of left eye - ICD9: V45.61, V43.1, ICD10: Z98.42, Z96.1 (primary diagnosis) 2. Status post cataract extraction and insertion of intraocular lens of right eye - ICD9: V45.61, V43.1, ICD10: Z98.41, Z96.1 Stop: FML eye drops. Left eye Use eye medications as directed: Current Ophthalmic Meds keTORolac (ACULAR) 0.5 % ophthalmic solution Use 1 Drop in the right eye four times daily. prednisoLONE acetate (PRED FORTE) 1 % ophthalmic suspension Use 1 Drop in the right eye four times daily. prednisoLONE acetate (PRED FORTE) 1 % ophthalmic suspension Use 1 Drop in the left eye four times daily. keTORolac (ACULAR) 0.5 % ophthalmic solution Use 1 Drop in the left eye four times daily. Systane Complete Artificial Tears - Use 1 Drop into both eyes three times a day. I have confirmed and edited as necessary the relevant HPI, ophthalmic history, ROS, and the neuro exam findings as obtained by others. I have seen and examined Belgica Angelo. I have discussed the case and the management of this patient's care with the Resident/Fellow, if applicable. I also have reviewed and agree with the assessment and plan as stated above and agree withall of its relevant components. documented in this encounterCommunity [facility]04-[facility] Instructions* Patient Instructions* Evan May MD - 05/27/2023 9:11 AM EDT Stop: FML drops left eye Use eye medications as directed: Current Ophthalmic Meds keTORolac (ACULAR) 0.5 % ophthalmic solution Use 1 Drop in the right eye four times daily. prednisoLONE acetate (PRED FORTE) 1 % ophthalmic suspension Use 1 Drop in the right eye four times daily. prednisoLONE acetate (PRED FORTE) 1 % ophthalmic suspension Use 1 Drop in the left eye four times daily. keTORolac (ACULAR) 0.5 % ophthalmic solution Use 1 Drop in the left eye four times daily. Systane Complete Artificial Tears - Use 1 Drop into both eyes three times a day. If you have any questions please contact our office at [phone]. After office hours or on the weekend, please call Dr. May on his cell phone at [phone]. documented in this encounterCommunity [facility]04-[facility] Hospital Discharge instructions* Discharge Instructions* Evan May MD - 05/26/2023 1:35 PM EDT Please see enclosed instructions from Dr. May regarding eye drop schedule, restrictions and use of eye shield. Please take bag with eye drops that were given to you today as well as ALL eye drops that you are using at home with you to your appointment tomorrow at Dr. May's office. [facility] Work Phone: [phone]) 375-166804-18-2024 Note* Op Note - Evan May MD - 05/26/2023 1:09 PM EDT Phacoemulsification Cataract with Insertion Intraocular Lens (L) Operative Note Date: 05/26/2023 OR Location: [facility] OR Name: Belgica Angelo, : 1955, Age: 67 y.o., , Sex: male Diagnosis Pre-op Diagnosis * Combined forms of age-related cataract of left eye [H25.812] Post-op Diagnosis * Combined forms of age-related cataract of left eye [H25.812] Procedures Phacoemulsification Cataract with Insertion Intraocular Lens 87565 - WI XCAPSL CTRC RMVL INSJ IO LENS PROSTH W/O ECP Surgeons * Evan May - Primary Resident/Fellow/Other Merchandise Planner: Surgeons and Role: * No surgeons found with a matching role * Procedure Summary Anesthesia: Monitor Anesthesia Care ASA: III Anesthesia Staff: Anesthesiologist: Conchita Bronson MD Estimated Blood Loss: None Intra-op Medications: Administrations occurring from 0910 to 0950 on 05/26/23: * No intraprocedure medications in log * Anesthesia Record Intraprocedure I/O Totals None Specimen: No specimens collected Staff: Pigment Pusher: Otis Pham RN Scrub Person: Moon Sawyer Drains and/or Catheters: * None in log * Implants: Implants Type Name Action Serial No. Lens LENS, INTRAOCULAR, [id number] 20.0 YOANNA - [id number] - [id number] Implanted [id number] Findings: Combined Form Age Related Cataract Left Eye Indications: Belgica Angelo is an 67 y.o. male who is having surgery for Combined forms of age-related cataract of left eye [H25.812]. Decreased vision left eye. Difficulty seeing for near and distance left eye, trouble seeing to read and watch TV left eye. Vision left eye impedes patients ability to drive, complains of glare left eye. The patient was seen in the preoperative area. The risks, benefits, complications, treatment options, non-operative alternatives, expected recovery and outcomes were discussed with the patient. The possibilities of reaction to medication, pulmonary aspiration, injury to surrounding structures, bleeding, recurrent infection, the need for additional procedures, failure to diagnose a condition, and creating a complication requiring transfusion or operation were discussed with the patient. The patient concurred with the proposed plan, giving informed consent. The site of surgery was properly noted/marked if necessary per policy. The patient has been actively warmed in preoperative area. Preopera tive antibiotics are not indicated. Venous thrombosis prophylaxis are not indicated. Procedure Details: The patient was correctly identified in the preop area and the operative eye wasmarked with a marking pen. The operative eye was dilated in the preoperative area. The patient was then taken to the operating room where timeout was performed before starting the procedure. Combinedanesthesia with intravenous sedation and topical tetracaine eyedrops were given the left eye. The operative eye was prepped and draped in the standard sterile ophthalmic fashion in preparation for ophthalmic surgery. A Jerry wire speculum was then inserted between the eyelids of the left eye and the operating microscope was placed over the left eye. A paracentesis incision was made approximately 30 away from the planned surgical incision site with the help of MVR blade. 1% lidocaine MPF with Phenylephrine 1.5% PF was injected into the anterior chamber through the paracentesis incision. A near limbal clear corneal incision was fashioned in the temporal quadrant just outside the vascular arcade and Viscoat was injected into anterior chamber to firm the eye. A bent needle cystotome was used and Utrata forceps were utilized to create a continuous curvilinear capsulorrhexis. BSS was injected beneath the anterior capsule to hydrodissect the nucleus from adjacent cortex and capsule. The residual cortex were then aspirated with irrigation aspiration handpiece. The posterior capsule was then polished with the help of soft irrigation-aspiration tip. Provisc viscoelastic was then injected into the eye to reform the anterior chamber and to open the capsular bag. The intraocular lens implant was taken from its sterile wrapping, inspected under the surgical microscope and found to be ingood condition. The intraocular lens implant +20.0D was injected into the capsule bag. The Provisc w as then aspirated from the anterior chamber and from behind the intraocular lens implant. The anterior chamber was inflated with the help of BSS to moderate tension. The edges of the surgical incision were then hydrated with the help of BSS. Vigamox was then injected into the anterior chamber and into the capsule bag through the paracentesis incision. The surgical wound was then inspected and found to be watertight. The wire speculum and drapes were then removed. Pred Forte eyedrops, Acular eyedrops and Betadine 5% sterile ophthalmic solution were instilled in the conjunctival sac. The patient tolerated the procedure well and was taken to recovery room in stable condition. Complications: None; patient tolerated the procedure well. Disposition: Home Condition: stable Attending Attestation: I performed the procedure. Evan May [facility] Work Phone: [phone]) 439-103204-18-2024 Miscellaneous Notes* Op Note - Evan May MD - 05/26/2023 1:09 PM EDT Phacoemulsification Cataract with Insertion Intraocular Lens (L) Operative Note Date: 05/26/2023 OR Location: [facility] OR Name: Belgica Angelo, : 1955, Age: 67 y.o., , Sex: male Diagnosis Pre-op Diagnosis * Combined forms of age-related cataract of left eye [H25.812] Post-op Diagnosis * Combined forms of age-related cataract of left eye [H25.812] Procedures Phacoemulsification Cataract with Insertion Intraocular Lens 57030 - WI XCAPSL CTRC RMVL INSJ IO LENS PROSTH W/O ECP Surgeons * Evan May - Primary Resident/Fellow/Other Merchandise Planner: Surgeons and Role: * No surgeons found with a matching role * Procedure Summary Anesthesia: Monitor Anesthesia Care ASA: III Anesthesia Staff: Anesthesiologist: Conchita Bronson MD Estimated Blood Loss: None Intra-op Medications: Administrations occurring from 0910 to 0950 on 05/26/23: * No intraprocedure medications in log * Anesthesia Record Intraprocedure I/O Totals None Specimen: No specimens collected Staff: Pigment Pusher: Otis Pham RN Scrub Person: Moon Sawyer Drains and/or Catheters: * None in log * Implants: Implants Type Name Action Serial No. Lens LENS, INTRAOCULAR, SN60WF 20.0 YOANNA - [id number] - [id number] Implanted [id number] Findings: Combined Form Age Related Cataract Left Eye Indications: Belgica Angelo is an 67 y.o. male who is having surgery for Combined forms of age-related cataract of left eye [H25.812]. Decreased vision left eye. Difficulty seeing for near and distance left eye, trouble seeing to read and watch TV left eye. Vision left eye impedes patients ability to drive, complains of glare left eye. The patient was seen in the preoperative area. The risks, benefits, complications, treatment options, non-operative alternatives, expected recovery and outcomes were discussed with the patient. The possibilities of reaction to medication, pulmonary aspiration, injury to surrounding structures, bleeding, recurrent infection, the need for additional procedures, failure to diagnose a condition, and creating a complication requiring transfusion or operation were discussed with the patient. The patient concurred with the proposed plan, giving informed consent. The site of surgery was properly noted/marked if necessary per policy. The patient has been actively warmed in preoperative area. Preopera tive antibiotics are not indicated. Venous thrombosis prophylaxis are not indicated. Procedure Details: The patient was correctly identified in the preop area and the operative eye wasmarked with a marking pen. The operative eye was dilated in the preoperative area. The patient was then taken to the operating room where timeout was performed before starting the procedure. Combinedanesthesia with intravenous sedation and topical tetracaine eyedrops were given the left eye. The operative eye was prepped and draped in the standard sterile ophthalmic fashion in preparation for ophthalmic surgery. A Jerry wire speculum was then inserted between the eyelids of the left eye and the operating microscope was placed over the left eye. A paracentesis incision was made approximately 30 away from the planned surgical incision site with the help of MVR blade. 1% lidocaine MPF with Phenylephrine 1.5% PF was injected into the anterior chamber through the paracentesis incision. A near limbal clear corneal incision was fashioned in the temporal quadrant just outside the vascular arcade and Viscoat was injected into anterior chamber to firm the eye. A bent needle cystotome was used and Utrata forceps were utilized to create a continuous curvilinear capsulorrhexis. BSS was injected beneath the anterior capsule to hydrodissect the nucleus from adjacent cortex and capsule. The residual cortex were then aspirated with irrigation aspiration handpiece. The posterior capsule was then polished with the help of soft irrigation-aspiration tip. Provisc viscoelastic was then injected into the eye to reform the anterior chamber and to open the capsular bag. The intraocular lens implant was taken from its sterile wrapping, inspected under the surgical microscope and found to be ingood condition. The intraocular lens implant +20.0D was injected into the capsule bag. The Provisc w as then aspirated from the anterior chamber and from behind the intraocular lens implant. The anterior chamber was inflated with the help of BSS to moderate tension. The edges of the surgical incision were then hydrated with the help of BSS. Vigamox was then injected into the anterior chamber and into the capsule bag through the paracentesis incision. The surgical wound was then inspected and found to be watertight. The wire speculum and drapes were then removed. Pred Forte eyedrops, Acular eyedrops and Betadine 5% sterile ophthalmic solution were instilled in the conjunctival sac. The patient tolerated the procedure well and was taken to recovery room in stable condition. Complications: None; patient tolerated the procedure well. Disposition: Home Condition: stable Attending Attestation: I performed the procedure. Evan May documented in this encounterOur [facility] [place] Work Phone: 1(530) [phone] Attending History and physical note* Evan May MD - 05/26/2023 7:32 AM EDT H&P reviewed. The patient was examined and there are no changes to the H&P. 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 Encounter for Monitoring Tacrolimus Therapy Aftercare Following Organ Transplant Essential Hypertension Hyperlipidemia Gastroesophageal Reflux Disease Without Esophagitis 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, Left Eye Punctate Keratitis, 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 Obesity, Class I, Bmi 30-34.9 SUBJECTIVE CHIEF COMPLAINT: combined age related cataract left eye HPI: Blurry vision, difficulty reading, watching television left eye PAST MEDICAL HISTORY Diagnosis Date Asthma Bronchiectasis (HCC) COPD (chronic obstructive pulmonary disease) (HCC) Dependence on supplemental oxygen Heterozygous alpha 1-antitrypsin deficiency (HCC) PiMZ Lung nodule Pain in joint, ankle and foot S/P lung transplant (HCC) PAST SURGICAL HISTORY Procedure Laterality Date LUNG TRANSPLANT,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 PAST SURGICAL HISTORY OF 02/07/2011 Rt foot reconstruction REMV CATARACT EXTRACAP,INSERT LENS REMV CATARACT EXTRACAP,INSERT LENS Right 04/28/2023 SN60WF +20.0 D RPR UMBILICAL HRNA 5 YRS/> REDUCIBLE 07/26/2012 Hernia repair, umbilical >5yr FAMILY HISTORY Problem Relation Age of Onset COPD Mother Heart disease Father Breast Cancer Sister No Known Problems Sister No Known Problems Sister COPD Brother COPD Brother SOCIAL HISTORY: Social History Tobacco Use Smoking status: Former Packs/day: 4.00 Years: 30.00 Additional pack years: 0.00 Total pack years: 120.00 Types: Cigarettes Quit date: 2010 Years since quittin.2 Smokeless tobacco: Never Vaping Use Vaping Use: Never used Substance Use Topics Alcohol use: Never Drug use: Never MEDICATIONS: Prior to Admission medications as of 04/29/23 1321 Medication Sig Last Dose Taking tacrolimus IR (PROGRAF) 1 mg capsule In combination with 5mg capsules 8mg in the AM and 7mg in the PM Taking Yes tacrolimus IR (PROGRAF) 5 mg capsule Take 1 capsule by mouth two times a day. In combination with 1mg capsules (Total dose is 8mg twice daily) Taking Yes furosemide (LASIX) 40 mg tablet Take 1 tablet by mouth once daily as needed. Taking Yes predniSONE (DELTASONE) 5 mg tablet Take 1 tablet by mouth once daily. Taking Yes atorvastatin (LIPITOR) 10 mg tablet Take 1 tablet by mouth daily at bedtime. Taking Yes azithromycin (ZITHROMAX) 250 mg tablet Take 1 tablet by mouth every Tuesday, Tuesday, and Tuesday. Taking Yes pantoprazole DR (PROTONIX) 20 mg tablet Take 1 tablet by mouth daily at 6 am. Taking Yes oseltamivir (TAMIFLU) 75 mg capsule Take 1 capsule by mouth two times a day. Tamiflu emergency Rx. Take upon onset of influenza symptoms and get tested as soon as possible. Taking Yes sulfamethoxazole-trimethoprim (BACTRIM DS) 800-160 mg per tablet Take 1 tablet by mouth every Tuesday,Tuesday,Tuesday. Taking Yes valGANciclovir (VALCYTE) 450 mg tablet Take 2 tablets by mouth daily with breakfast. Taking Yes mycophenolate mofetil (CELLCEPT) 250 mg capsule Take 3 capsules by mouth twice daily. Taking Yes phosphorus (K PHOS NEUTRAL) 250 mg tablet Take 1 tablet by mouth twice daily. Taking Yes magnesium oxide (MAG-OX) 400 mg (241.3 mg magnesium) tablet Take 1 tablet by mouth twice daily. Taking Yes traMADol (ULTRAM) 50 mg tablet Take 1 tablet by mouth every 4 hours as needed for pain (for pain.).Taking Yes acetaminophen (TYLENOL) 325 mg tablet Take 2 tablets by mouth every 6 hours as needed for pain. Taking Yes camphor-methyl salicyl-menthol (SALONPAS) 3.1-10-6 % ptmd Use as needed for back pain, joint pain, and pain around clamshell incision. Apply 12 hours on and 12 hours off Taking Yes albuterol (PROVENTIL) 2.5 mg /3 mL (0.083 %) nebulizer solution Use 3 mL via nebulizer every Tuesday,Tuesday,Tuesday. Taking Yes ondansetron (ZOFRAN) 4 mg tablet Take 1 tablet by mouth every 8 hours as needed for nausea/vomiting. Taking Yes keTORolac (ACULAR) 0.5 % ophthalmic solution Use 1 Drop in the right eye four times daily. prednisoLONE acetate (PRED FORTE) 1 % ophthalmic suspension Use 1 Drop in the right eye four times daily. fluorometholone (FML LIQUID FILM) 0.1 % ophthalmic suspension Use 1 Drop in the left eye three times a day. lidocaine (LMX) 4 % cream Apply to affected area as needed (pain around incision site). Patient taking differently: Apply 1 application to affected area as needed (pain around incision site). Medication Comments documented by Madisyn Hager MA on 02/25/2022 at 0959. Pt states medication is still the same as listed on his medication list. CURRENT ALLERGIES: ALLERGIES Allergen Reactions Nsaids (Non-Steroid* Contraindication-Medical Surgical Patient states he is not allergic to Nsaids- caused upset stomach Penicillins GI Upset Patient states he is not allergic to penicillin- caused upset stomach REVIEW OF SYSTEMS: PAIN ASSESSMENT: General: No weight loss, malaise or fevers. Neuro: No Hx of stroke or seizures Respiratory: History of double lung transplant Cardiovascular: Positive for: None GI: No history of GI symptoms or problems. No history of esophageal varices, recent ascites, or ETOH greater than 2 drinks per day. : No history of UTI in past 6 weeks. No history of renal failure. Not currently on or requiring dialysis. No history of symptoms or problems. 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 Has not taken steroids within the past 30 days. No history of endocrinological symptoms or problems. Hematology: No history of bleeding or clotting disorder. Pt is not taking anti- coagulation or platelet medications. No history of hematological symptoms or problems. Oncology: No history of CA metastasis, chemo within 30 days, or radiotherapy within 90 days. Has not lost 10% of body wt in 6 months. No history of oncological symptoms or problems. Psych: No history of psychiatric symptoms or problems. Musculoskeletal: Negative for joint pain or swelling, back pain or muscle pain. Skin: Negative for lesions, rash and itching. PHYSICAL EXAM: VITALS: BP 121/74 Pulse 88 General: Alert and oriented Skin: Normal color, no rash, no lesions. HEENT: EOM, pupils equal, round and reactive. Cardiovascular: Normal S1 & S2, no rubs, murmurs or gallops. No JVD. Pulse regular. Lungs: Normal breath sounds, no wheezes or crackles. Abdomen: Soft, non-tender, no rigidity. Extremities: No deformity, no edema or tenderness, no joint swelling or clubbing. Neurological: Normal cognition and motor skills. Pulses: Carotid and radial pulses normal +2. Diagnostic tests reviewed for today's visit: No new labs or tests ASSESSMENT Medication and Non-Pharmacologic VTE Prophylaxis/Anticoagulants VTE Prophylaxis: VTE prophylaxis appropriate Impression: There is no known pertinent medical condition which may affect gio- operative course Clinical Risk Factors for Possible Cardiac Complications: None Patient is scheduled for a low-risk procedure. FUNCTIONAL STATUS: Do yardwork, such as raking leaves, weeding,or pushing a power mower (4.50 METs) Functional Class (NYHA): N/A [employer]: Not obtained PLAN CONSULTS: Patient does not require consults for optimization at this time. The Following Tests/Procedures Have Been Initiated: None Instructions Given to Patient: Patient given verbal and written preop instructions and voices comprehension and compliance. SIGNATURE: Evan May MD PATIENT NAME: Belgica Angelo DATE: April 29, 2023 TIME: 1:38 PM PAGER/CONTACT #: Source Comments - [facility] In the event this information is protected by the Federal Confidentiality of Alcohol and Drug AbusePatient Records regulations: The Federal rules restrict any use of the information to criminally investigate or prosecute any alcohol or drug abuse patient. 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 Never 04/10/2020 Average Number of Drinks Not on file 04/10/2020 Frequency of Binge Drinking Not on file 04/10/2020 Social History Overall Financial Resource Strain (CARDIA) Answer Date Recorded How hard is it for you to pay for the very basics like food, housing, medical care, and heating? Not hard at all 07/20/2022 Social History Hunger Vital Sign Answer Date Recorded Within the past 12 months, you worried that your food would run out before you got the money to buymore. Never true 07/20/2022 Within the past 12 months, the food you bought just didn't last and you didn't have money to get more. Never true 07/20/2022 Social History PRAPARE - Transportation Answer Date Recorded In the past 12 months, has lack of transportation kept you from medical appointments or from getting medications? No 07/20/2022 In the past 12 months, has lack of transportation kept you from meetings, work, or from getting things needed for daily living? No 07/20/2022 Social History Housing Stability Vital Sign Answer Date Recorded In the last 12 months, was there a time when you were not able to pay the mortgage or rent on time?No 07/20/2022 Number of Places Lived in the Last Year Not on file 07/20/2022 In the last 12 months, was there a time when you did not have a steady place to sleep or slept in ashelter (including now)? No 07/20/2022 Social History Area Deprivation Index Answer Date Recorded National Score (1-100), lower number is lower risk 72 08/08/2022 State Score (1-10), lower number is lower risk 5 08/08/2022 Data from: https://www.neighborhoodatlas.medicine.[facility].edu/. Last address used for calculation [address] [place] [address] 08/08/2022 Social History Sex and Gender Information Value Date Recorded Sex Assigned at Male 01/26/2021 9:33 AM EST Gender Identity Male 01/26/2021 9:33 AM EST Sexual Orientation Not on file Last Filed Vital Signs - documented in this encounter Last Filed Vital Signs Vital Sign Reading Time Taken Comments Blood Pressure 121/74 04/29/2023 1:33 PM EDT Pulse 88 04/29/2023 1:33 PM EDT Temperature - - Respiratory Rate - - Oxygen Saturation - - Inhaled Oxygen Concentration - - Weight - - Height - - Body Mass Index - - Functional Status - documented as of this encounter Functional Status Functional Status Response Date of Assessment Are you deaf or do you have serious difficulty hearing? No 02/23/2022 Are you blind or do you have serious difficulty seeing, even when wearing glasses? No 02/23/2022 Do you have serious difficulty walking or climbing stairs? No 02/23/2022 Do you have difficulty dressing or bathing? No 02/23/2022 Because of a physical, mental, or emotional condition, do you have difficulty doing errands alone such as visiting a doctor's office or shopping? No 02/23/2022 Functional Status Cognitive Status Response Date of Assessment Because of a physical, mental, or emotional condition, do you have serious difficulty concentrating, remembering, or making decisions? No 02/23/2022 Patient Instructions - documented in this encounter Patient Instructions Evan May MD - 04/29/2023 1:19 PM EDT Use post op medications as directed: Current Ophthalmic Meds keTORolac (ACULAR) 0.5 % ophthalmic solution Use 1 Drop in the right eye four times daily for 7 days, then three times daily until 06/02/2023 prednisoLONE acetate (PRED FORTE) 1 % ophthalmic suspension Use 1 Drop in the right eye four times daily for 7 days, then three times daily until 06/02/2023 Current Ophthalmic Meds fluorometholone (FML LIQUID FILM) 0.1 % ophthalmic suspension Use 1 Drop in the left eye three times a day. Systane Complete Artificial Tears - Use 1 Drop into both eyes three times a day. If you have any questions please contact our office at [phone]. After office hours or on the weekend, please call Dr. May on his cell phone at [phone]. Ordered Prescriptions - documented in this encounterReconcile with Patient's Chart Ordered Prescriptions Prescription Sig Dispensed Refills Start Date End Date fluorometholone (FML LIQUID FILM) 0.1 % ophthalmic suspension Use 1 Drop in the left eye three times a day. 5 mL 2 04/29/2023 prednisoLONE acetate (PRED FORTE) 1 % ophthalmic suspension Use 1 Drop in the right eye four times daily. 5 mL 2 04/28/2023 keTORolac (ACULAR) 0.5 % ophthalmic solution Use 1 Drop in the right eye four times daily. 5 mL 2 04/28/2023 06/02/2023 fluorometholone (FML LIQUID FILM) 0.1 % ophthalmic suspension Use 1 Drop in the right eye three times a day. 5 mL 2 04/29/2023 04/29/2023 Progress Notes - documented in this encounter Evan May MD - 04/29/2023 1:14 PM EDT ASSESSMENT/PLAN: 1. 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-related cataract, left eye - ICD9: 366.19, ICD10: H25.812 PHYSICAL EXAM: Vital Signs: Blood pressure 121/74, pulse 88. Respiratory: Normal breath sounds, no wheezing. CARD: Normal heart sounds 1 & 2, normal sinus rhythm. Cataract Presurgical Documentation Cataract: Left eye (OS) Current Visual Acuity Right Eye Distance SC 20/20 Left Eye Distance CC 20/80 Visual Function: Belgica Angelo states that the decline in vision from the cataract impedes his abilities as listed in the HPI, as well as other activities of daily living. Belgica Angelo has confirmed that he is no longer able to function adequately on a day-to-day basisbecause of his current visual condition. Further, it is my medical opinion that the cataract is the primary cause, or at least a significantly contributory cause of his visual dysfunction. With uncomplicated cataract surgery and lens implantation, it is my expectation that his visual function and quality of life will improve, significantly. The risks, benefits, alternatives, personnel and complications of cataract surgery with lens implantation were discussed with Belgica Angelo in detail. he appeared to understand and asked that I proceed with plans for surgery. Upon eye examination, patient was found to have a visually significant cataract left eye . Discussed cataract surgery with patient and different intraocular lens implant options with patient: basic monofocal intraocular lens implant, Toric intraocular lens implant, and presbyopia correction intraocular lens implant. In my medical opinion, based on medical history and ocular examination, cataract surgery with intraocular lens implant will correct patient's vision and improve quality of patient'sdaily living activities. Patient wishes to have traditional cataract surgery with basic intraocularlens left eye 05/26/2023. Patient wishes to have cataract surgery with the option stated above. Patient understands that an intraocular lens implant does not necessarily replace the need for glasses.Patient understands that it is impossible for the surgeon to inform him/her of every possible complication that may occur. The surgeon has answered all of the patient's questions. Patient understandsthat if he/she has a mature or dense cataract, pseudoexfoliation cataract, or history of use of Flom ax, he/she may require the use of Maluyugin Ring and/or Vision Blue during surgery. Patient understands the risks, benefits, and alternatives to surgery. Use medications as directed: Current Ophthalmic Meds fluorometholone (FML LIQUID FILM) 0.1 % ophthalmic suspension Use 1 Drop in the left eye three times a day. Systane Complete Artificial Tears - Use 1 Drop into both eyes three times a day. 2. Status post cataract extraction and insertion of intraocular lens of right eye - ICD9: V45.61, V43.1, ICD10: Z98.41, Z96.1 (primary diagnosis) Use post op medications as directed: Current Ophthalmic Meds keTORolac (ACULAR) 0.5 % ophthalmic solution Use 1 Drop in the right eye four times daily for 7 days, then three times daily until 06/02/2023 prednisoLONE acetate (PRED FORTE) 1 % ophthalmic suspension Use 1 Drop in the right eye four times daily for 7 days, then three times daily until 06/02/[address] Juárez for 1 week post op 3. 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 4. Hypercholesteremia - ICD9: 272.0, ICD10: E78.00 Continue to monitor with primary care physician. I have confirmed and edited as necessary the relevant HPI, ophthalmic history, ROS, and the neuro exam findings as obtained by others. I have seen and examined Belgica Angelo. I have discussed the case and the management of this patient's care with the Resident/Fellow, if applicable. I also have reviewed and agree with the assessment and plan as stated above and agree withall of its relevant components. Evan May MD Plan of Treatment - documented as of this encounter Plan of Treatment - Upcoming Encounters Upcoming Encounters Date Type Department Care Team (Latest Contact Info) Description 05/27/2023 8:15 AM EDT Office [place] [address] Evan May MD [address] [place] [address] 1 day cat po 2nd le 07/07/2023 4:20 PM EDT Office Visit [address] [address] Keshav Phillips, 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 SERVICE REPRESENTATIVE.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 MANAGER [address] [place], [place] [address] est care 07/21/2023 7:15 AM EDT Office Visit Main [place] [id number] [facility] [address] [address] Post lung Txp 07/21/2023 7:55 AM EDT Appointment Radiology [address] [address] Post lung Txp/ FU 07/21/2023 8:30 AM EDT Procedure Pulmonary Medicine [address] [place] [id number] 1, Pulm Fct Lab Main [address] [place] [address] Post lung Txp/ FU 07/21/2023 9:00 AM EDT Office Visit Pulmonary Medicine [address] [place] [address] Viviane Curtis MD [address] [place] [address] Post lung Txp/ FU 07/21/2023 12:30 PM EDT Hospital Encounter Admitting [address] [address] Nick Mccoy MD [address] [place], [place] [id number] 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) [Z94.2] 07/21/2023 12:30 PM EDT - 07/21/2023 1:30 PM EDT Surgery Admitting [address] [address] Nick Mccoy MD [address] [place] [address] BRONCHOSCOPY FLEXIBLE ADULT 09/15/2023 12:45 PM EDT Office Visit Pulmonary Medicine [address] [place] [address] Shukri Juárez MD [address] [place], [place] [id number] 6 month follow up Plan of Treatment - Scheduled Procedures Scheduled Procedures Name Priority Associated Diagnoses Date/Time SURGERY AT NON-THE [facility] 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-related cataract, left eye 05/26/2023 10:55 AM EDT BRONCHOSCOPY FLEXIBLE ADULT Lung replaced by transplant (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) Lung replaced by transplant Administered Medications - documented in this encounter Administered Medications - Inactive Administered Medications - up to 3 most recent administrations Inactive Administered Medications - up to 3 most recent administrations Medication Order MAR Action Action Date Dose Rate Site proparacaine 0.5 % 1 Drop (ALCAINE) 1 Drop, BOTH EYES, DIRECTED, Starting on 04/29/23 at 1330, Until 04/30/23 at 0129, Administer for pneumo tonometry, tonopen tonometry, or pachymetry. In the event of a proparacaine shortage,administer tetracaine 0.5% ophthalmic drops 1 drop in the left eye as directed for pneumo tonometry, tonopen tonometry, or pachymetry Given 04/29/2023 1:30 PM EDT 1 Drop Discontinued Medications - documented as of this encounter Discontinued Medications Medication Sig Discontinue Reason Start Date End Date fluorometholone (FML LIQUID FILM) 0.1 % ophthalmic suspension Use 1 Drop in both eyes three times aday. 04/12/2023 04/29/2023 fluorometholone (FML LIQUID FILM) 0.1 % ophthalmic suspension Use 1 Drop in the right eye three times a day. 04/29/2023 04/29/2023 Orders - documented in this encounter Orders Medications Ordered That Might Not Have Been Administered Count Last Ordered Date First Ordered Date proparacaine 0.5 % 1 Drop (ALCAINE) 1 04/29/2023 Eye Exam Eye Exam - Visual Acuity (Snellen - Linear) Visual Acuity (Snellen - Linear) Right eye Left eye Dist sc 20/20 Dist cc 20/80 Eye Exam - Tonometry (Applanation, 1:28 PM) Tonometry (Applanation, 1:28 PM) Right eye Left eye Pressure 16 16 Eye Exam - Pupils Pupils Pupils Dark Shape React APD Right eye PERRL 5 Round +2 None Left eye PERRL 5 Round +2 None Eye Exam - Visual Jacques Visual Jacques Right eye Left eye Full Full Eye Exam - Extraocular Movement Extraocular Movement Right eye Left eye Full Full Eye Exam - Neuro/Psych Neuro/Psych Oriented x3: Yes Mood/Affect: Normal Eye Exam - External Exam External Exam Right eye Left eye External Normal including orbits and preauricular lymph nodes Normal including orbits and preauricular lymph nodes Eye Exam - Slit Lamp Exam Slit Lamp Exam Right eye Left eye Lids/Lashes Normal lids, lashes, lacrimal glands, and lacrimal drainage Meibomian gland dysfunction Conjunctiva/Sclera 1+ Injection White and quiet Cornea wound edges well opposed Anterior basement membrane dystrophy Anterior Chamber 1+ Cell, 1+ Flare Deep and quiet Iris Round and reactive Round and reactive Lens Posterior chamber intraocular lens 3+ Nuclear sclerotic cataract, 3+ Posterior subcapsular cataract Anterior Vitreous Normal Normal Eye Exam - Fundus Exam Fundus Exam Right eye Left eye Disc Normal Normal C/D Ratio 0.25 0.25 Macula Normal Normal Vessels Normal Normal Periphery Normal Normal Eye Exam - Wearing Rx Wearing Rx Sphere Cylinder Pana Add Right eye +2.75 Left eye -2.50 +0.50 180 +2.75 Care Teams - documented as of this encounter 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 Specialty Start Date End Date Aisha Newton MD [address] [place] [address] PCP - General Family Medicine 01/13/21 Markos Burgos MD [address] [place] [address] Primary Staff Physician Cardiology 02/22/22 Regina Decker APRN.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 MANAGER [address] [place] [address] Referring Transplant Center 08/05/22 Regina Decker APRN.CNP [address] [place] [address] Home Care Provider Transplant Center 08/05/22 [facility] Work Phone: [phone] 460-259404-18-2024 History and physical note* Evan May MD - 05/26/2023 7:32 AM EDT H&P Notes - documented in this encounter Evan May MD - 04/29/2023 1:37 PM EDT HISTORY AND PHYSICAL EXAMINATION SERVICE DATE: 04/29/2023 SERVICE TIME: 1:37 PM PRIMARY CARE PHYSICIAN: Aisha Newton MD, MD REASON FOR VISIT: Belgica Angelo is a 67 year old male who is being seen for 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 The patient has the following: ACTIVE PROBLEM LIST 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 Encounter for Monitoring Tacrolimus Therapy Aftercare Following Organ Transplant Essential Hypertension Hyperlipidemia Gastroesophageal Reflux Disease Without Esophagitis 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, Left Eye Punctate Keratitis, 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 Obesity, Class I, Bmi 30-34.9 SUBJECTIVE CHIEF COMPLAINT: combined age related cataract left eye HPI: Blurry vision, difficulty reading, watching television left eye PAST MEDICAL HISTORY Diagnosis Date Asthma Bronchiectasis (HCC) COPD (chronic obstructive pulmonary disease) (HCC) Dependence on supplemental oxygen Heterozygous alpha 1-antitrypsin deficiency (HCC) PiMZ Lung nodule Pain in joint, ankle and foot S/P lung transplant (HCC) PAST SURGICAL HISTORY Procedure Laterality Date LUNG TRANSPLANT,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 PAST SURGICAL HISTORY OF 02/07/2011 Rt foot reconstruction REMV CATARACT EXTRACAP,INSERT LENS REMV CATARACT EXTRACAP,INSERT LENS Right 04/28/2023 SN60WF +20.0 D RPR UMBILICAL HRNA 5 YRS/> REDUCIBLE 07/26/2012 Hernia repair, umbilical >5yr FAMILY HISTORY Problem Relation Age of Onset COPD Mother Heart disease Father Breast Cancer Sister No Known Problems Sister No Known Problems Sister COPD Brother COPD Brother SOCIAL HISTORY: Social History Tobacco Use Smoking status: Former Packs/day: 4.00 Years: 30.00 Additional pack years: 0.00 Total pack years: 120.00 Types: Cigarettes Quit date: 2010 Years since quittin.2 Smokeless tobacco: Never Vaping Use Vaping Use: Never used Substance Use Topics Alcohol use: Never Drug use: Never MEDICATIONS: Prior to Admission medications as of 04/29/23 1321 Medication Sig Last Dose Taking tacrolimus IR (PROGRAF) 1 mg capsule In combination with 5mg capsules 8mg in the AM and 7mg in the PM Taking Yes tacrolimus IR (PROGRAF) 5 mg capsule Take 1 capsule by mouth two times a day. In combination with 1mg capsules (Total dose is 8mg twice daily) Taking Yes furosemide (LASIX) 40 mg tablet Take 1 tablet by mouth once daily as needed. Taking Yes predniSONE (DELTASONE) 5 mg tablet Take 1 tablet by mouth once daily. Taking Yes atorvastatin (LIPITOR) 10 mg tablet Take 1 tablet by mouth daily at bedtime. Taking Yes azithromycin (ZITHROMAX) 250 mg tablet Take 1 tablet by mouth every Tuesday, Tuesday, and Tuesday. Taking Yes pantoprazole DR (PROTONIX) 20 mg tablet Take 1 tablet by mouth daily at 6 am. Taking Yes oseltamivir (TAMIFLU) 75 mg capsule Take 1 capsule by mouth two times a day. Tamiflu emergency Rx. Take upon onset of influenza symptoms and get tested as soon as possible. Taking Yes sulfamethoxazole-trimethoprim (BACTRIM DS) 800-160 mg per tablet Take 1 tablet by mouth every Tuesday,Tuesday,Tuesday. Taking Yes valGANciclovir (VALCYTE) 450 mg tablet Take 2 tablets by mouth daily with breakfast. Taking Yes mycophenolate mofetil (CELLCEPT) 250 mg capsule Take 3 capsules by mouth twice daily. Taking Yes phosphorus (K PHOS NEUTRAL) 250 mg tablet Take 1 tablet by mouth twice daily. Taking Yes magnesium oxide (MAG-OX) 400 mg (241.3 mg magnesium) tablet Take 1 tablet by mouth twice daily. Taking Yes traMADol (ULTRAM) 50 mg tablet Take 1 tablet by mouth every 4 hours as needed for pain (for pain.).Taking Yes acetaminophen (TYLENOL) 325 mg tablet Take 2 tablets by mouth every 6 hours as needed for pain. Taking Yes camphor-methyl salicyl-menthol (SALONPAS) 3.1-10-6 % ptmd Use as needed for back pain, joint pain, and pain around clamshell incision. Apply 12 hours on and 12 hours off Taking Yes albuterol (PROVENTIL) 2.5 mg /3 mL (0.083 %) nebulizer solution Use 3 mL via nebulizer every Tuesday,Tuesday,Tuesday. Taking Yes ondansetron (ZOFRAN) 4 mg tablet Take 1 tablet by mouth every 8 hours as needed for nausea/vomiting. Taking Yes keTORolac (ACULAR) 0.5 % ophthalmic solution Use 1 Drop in the right eye four times daily. prednisoLONE acetate (PRED FORTE) 1 % ophthalmic suspension Use 1 Drop in the right eye four times daily. fluorometholone (FML LIQUID FILM) 0.1 % ophthalmic suspension Use 1 Drop in the left eye three times a day. lidocaine (LMX) 4 % cream Apply to affected area as needed (pain around incision site). Patient taking differently: Apply 1 application to affected area as needed (pain around incision site). Medication Comments documented by Madisyn Hager MA on 02/25/2022 at 0959. Pt states medication is still the same as listed on his medication list. CURRENT ALLERGIES: ALLERGIES Allergen Reactions Nsaids (Non-Steroid* Contraindication-Medical Surgical Patient states he is not allergic to Nsaids- caused upset stomach Penicillins GI Upset Patient states he is not allergic to penicillin- caused upset stomach REVIEW OF SYSTEMS: PAIN ASSESSMENT: General: No weight loss, malaise or fevers. Neuro: No Hx of stroke or seizures Respiratory: History of double lung transplant Cardiovascular: Positive for: None GI: No history of GI symptoms or problems. No history of esophageal varices, recent ascites, or ETOH greater than 2 drinks per day. : No history of UTI in past 6 weeks. No history of renal failure. Not currently on or requiring dialysis. No history of symptoms or problems. 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 Has not taken steroids within the past 30 days. No history of endocrinological symptoms or problems. Hematology: No history of bleeding or clotting disorder. Pt is not taking anti- coagulation or platelet medications. No history of hematological symptoms or problems. Oncology: No history of CA metastasis, chemo within 30 days, or radiotherapy within 90 days. Has not lost 10% of body wt in 6 months. No history of oncological symptoms or problems. Psych: No history of psychiatric symptoms or problems. Musculoskeletal: Negative for joint pain or swelling, back pain or muscle pain. Skin: Negative for lesions, rash and itching. PHYSICAL EXAM: VITALS: BP 121/74 Pulse 88 General: Alert and oriented Skin: Normal color, no rash, no lesions. HEENT: EOM, pupils equal, round and reactive. Cardiovascular: Normal S1 & S2, no rubs, murmurs or gallops. No JVD. Pulse regular. Lungs: Normal breath sounds, no wheezes or crackles. Abdomen: Soft, non-tender, no rigidity. Extremities: No deformity, no edema or tenderness, no joint swelling or clubbing. Neurological: Normal cognition and motor skills. Pulses: Carotid and radial pulses normal +2. Diagnostic tests reviewed for today's visit: No new labs or tests ASSESSMENT Medication and Non-Pharmacologic VTE Prophylaxis/Anticoagulants VTE Prophylaxis: VTE prophylaxis appropriate Impression: There is no known pertinent medical condition which may affect gio- operative course Clinical Risk Factors for Possible Cardiac Complications: None Patient is scheduled for a low-risk procedure. FUNCTIONAL STATUS: Do yardwork, such as raking leaves, weeding,or pushing a power mower (4.50 METs) Functional Class (NYHA): N/A [employer]: Not obtained PLAN CONSULTS: Patient does not require consults for optimization at this time. The Following Tests/Procedures Have Been Initiated: None Instructions Given to Patient: Patient given verbal and written preop instructions and voices comprehension and compliance. SIGNATURE: Evan May MD PATIENT NAME: Belgica Angelo DATE: April 29, 2023 TIME: 1:38 PM PAGER/CONTACT #: Source Comments - [facility] In the event this information is protected by the Federal Confidentiality of Alcohol and Drug AbusePatient Records regulations: The Federal rules restrict any use of the information to criminally investigate or prosecute any alcohol or drug abuse patient. 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 Never 04/10/2020 Average Number of Drinks Not on file 04/10/2020 Frequency of Binge Drinking Not on file 04/10/2020 Social History Overall Financial Resource Strain (CARDIA) Answer Date Recorded How hard is it for you to pay for the very basics like food, housing, medical care, and heating? Not hard at all 07/20/2022 Social History Hunger Vital Sign Answer Date Recorded Within the past 12 months, you worried that your food would run out before you got the money to buymore. Never true 07/20/2022 Within the past 12 months, the food you bought just didn't last and you didn't have money to get more. Never true 07/20/2022 Social History PRAPARE - Transportation Answer Date Recorded In the past 12 months, has lack of transportation kept you from medical appointments or from getting medications? No 07/20/2022 In the past 12 months, has lack of transportation kept you from meetings, work, or from getting things needed for daily living? No 07/20/2022 Social History Housing Stability Vital Sign Answer Date Recorded In the last 12 months, was there a time when you were not able to pay the mortgage or rent on time?No 07/20/2022 Number of Places Lived in the Last Year Not on file 07/20/2022 In the last 12 months, was there a time when you did not have a steady place to sleep or slept in ashelter (including now)? No 07/20/2022 Social History Area Deprivation Index Answer Date Recorded National Score (1-100), lower number is lower risk 72 08/08/2022 State Score (1-10), lower number is lower risk 5 08/08/2022 Data from: https://www.neighborhoodatlas.medicine.[facility].edu/. Last address used for calculation [address] 08/08/2022 Social History Sex and Gender Information Value Date Recorded Sex Assigned at Male 01/26/2021 9:33 AM EST Gender Identity Male 01/26/2021 9:33 AM EST Sexual Orientation Not on file Last Filed Vital Signs - documented in this encounter Last Filed Vital Signs Vital Sign Reading Time Taken Comments Blood Pressure 121/74 04/29/2023 1:33 PM EDT Pulse 88 04/29/2023 1:33 PM EDT Temperature - - Respiratory Rate - - Oxygen Saturation - - Inhaled Oxygen Concentration - - Weight - - Height - - Body Mass Index - - Functional Status - documented as of this encounter Functional Status Functional Status Response Date of Assessment Are you deaf or do you have serious difficulty hearing? No 02/23/2022 Are you blind or do you have serious difficulty seeing, even when wearing glasses? No 02/23/2022 Do you have serious difficulty walking or climbing stairs? No 02/23/2022 Do you have difficulty dressing or bathing? No 02/23/2022 Because of a physical, mental, or emotional condition, do you have difficulty doing errands alone such as visiting a doctor's office or shopping? No 02/23/2022 Functional Status Cognitive Status Response Date of Assessment Because of a physical, mental, or emotional condition, do you have serious difficulty concentrating, remembering, or making decisions? No 02/23/2022 Patient Instructions - documented in this encounter Patient Instructions Evan May MD - 04/29/2023 1:19 PM EDT Use post op medications as directed: Current Ophthalmic Meds keTORolac (ACULAR) 0.5 % ophthalmic solution Use 1 Drop in the right eye four times daily for 7 days, then three times daily until 06/02/2023 prednisoLONE acetate (PRED FORTE) 1 % ophthalmic suspension Use 1 Drop in the right eye four times daily for 7 days, then three times daily until 06/02/2023 Current Ophthalmic Meds fluorometholone (FML LIQUID FILM) 0.1 % ophthalmic suspension Use 1 Drop in the left eye three times a day. Systane Complete Artificial Tears - Use 1 Drop into both eyes three times a day. If you have any questions please contact our office at [phone]. After office hours or on the weekend, please call Dr. May on his cell phone at [phone]. Ordered Prescriptions - documented in this encounterReconcile with Patient's Chart Ordered Prescriptions Prescription Sig Dispensed Refills Start Date End Date fluorometholone (FML LIQUID FILM) 0.1 % ophthalmic suspension Use 1 Drop in the left eye three times a day. 5 mL 2 04/29/2023 prednisoLONE acetate (PRED FORTE) 1 % ophthalmic suspension Use 1 Drop in the right eye four times daily. 5 mL 2 04/28/2023 keTORolac (ACULAR) 0.5 % ophthalmic solution Use 1 Drop in the right eye four times daily. 5 mL 2 04/28/2023 06/02/2023 fluorometholone (FML LIQUID FILM) 0.1 % ophthalmic suspension Use 1 Drop in the right eye three times a day. 5 mL 2 04/29/2023 04/29/2023 Progress Notes - documented in this encounter Evan May MD - 04/29/2023 1:14 PM EDT ASSESSMENT/PLAN: 1. 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-related cataract, left eye - ICD9: 366.19, ICD10: H25.812 PHYSICAL EXAM: Vital Signs: Blood pressure 121/74, pulse 88. Respiratory: Normal breath sounds, no wheezing. CARD: Normal heart sounds 1 & 2, normal sinus rhythm. Cataract Presurgical Documentation Cataract: Left eye (OS) Current Visual Acuity Right Eye Distance SC 20/20 Left Eye Distance CC 20/80 Visual Function: Belgica Angelo states that the decline in vision from the cataract impedes his abilities as listed in the HPI, as well as other activities of daily living. Belgica Angelo has confirmed that he is no longer able to function adequately on a day-to-day basisbecause of his current visual condition. Further, it is my medical opinion that the cataract is the primary cause, or at least a significantly contributory cause of his visual dysfunction. With uncomplicated cataract surgery and lens implantation, it is my expectation that his visual function and quality of life will improve, significantly. The risks, benefits, alternatives, personnel and complications of cataract surgery with lens implantation were discussed with Belgica Angelo in detail. he appeared to understand and asked that I proceed with plans for surgery. Upon eye examination, patient was found to have a visually significant cataract left eye . Discussed cataract surgery with patient and different intraocular lens implant options with patient: basic monofocal intraocular lens implant, Toric intraocular lens implant, and presbyopia correction intraocular lens implant. In my medical opinion, based on medical history and ocular examination, cataract surgery with intraocular lens implant will correct patient's vision and improve quality of patient'sdaily living activities. Patient wishes to have traditional cataract surgery with basic intraocularlens left eye 05/26/2023. Patient wishes to have cataract surgery with the option stated above. Patient understands that an intraocular lens implant does not necessarily replace the need for glasses.Patient understands that it is impossible for the surgeon to inform him/her of every possible complication that may occur. The surgeon has answered all of the patient's questions. Patient understandsthat if he/she has a mature or dense cataract, pseudoexfoliation cataract, or history of use of Flom ax, he/she may require the use of Maluyugin Ring and/or Vision Blue during surgery. Patient understands the risks, benefits, and alternatives to surgery. Use medications as directed: Current Ophthalmic Meds fluorometholone (FML LIQUID FILM) 0.1 % ophthalmic suspension Use 1 Drop in the left eye three times a day. Systane Complete Artificial Tears - Use 1 Drop into both eyes three times a day. 2. Status post cataract extraction and insertion of intraocular lens of right eye - ICD9: V45.61, V43.1, ICD10: Z98.41, Z96.1 (primary diagnosis) Use post op medications as directed: Current Ophthalmic Meds keTORolac (ACULAR) 0.5 % ophthalmic solution Use 1 Drop in the right eye four times daily for 7 days, then three times daily until 06/02/2023 prednisoLONE acetate (PRED FORTE) 1 % ophthalmic suspension Use 1 Drop in the right eye four times daily for 7 days, then three times daily until 06/02/[address] Juárez for 1 week post op 3. 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 4. Hypercholesteremia - ICD9: 272.0, ICD10: E78.00 Continue to monitor with primary care physician. I have confirmed and edited as necessary the relevant HPI, ophthalmic history, ROS, and the neuro exam findings as obtained by others. I have seen and examined Belgica Angelo. I have discussed the case and the management of this patient's care with the Resident/Fellow, if applicable. I also have reviewed and agree with the assessment and plan as stated above and agree withall of its relevant components. Evan Mya MD Plan of Treatment - documented as of this encounter Plan of Treatment - Upcoming Encounters Upcoming Encounters Date Type Department Care Team (Latest Contact Info) Description 05/27/2023 8:15 AM EDT Office [place] [address] Evan May MD [address] [place] [address] 1 day cat po 2nd le 07/07/2023 4:20 PM EDT Office Visit [address] [address] Keshav Phillips APRN.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 MANAGER [address] [place], [place] [address] est care 07/21/2023 7:15 AM EDT Office Visit [facility] [address] [address] Post lung Txp 07/21/2023 7:55 AM EDT Appointment Radiology [address] [address] Post lung Txp/ FU 07/21/2023 8:30 AM EDT Procedure Pulmonary Medicine [address] [place] [id number] 1, Pulm Fct Lab Main [facility] [place] [address] Post lung Txp/ FU 07/21/2023 9:00 AM EDT Office Visit Pulmonary Medicine [address] [place] [address] Vviiane Curtis MD [address] [place] [address] Post lung Txp/ FU 07/21/2023 12:30 PM EDT Hospital Encounter Admitting [address] [address] Nick Mccoy MD [address] [place], [place] [id number] 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) [Z94.2] 07/21/2023 12:30 PM EDT - 07/21/2023 1:30 PM EDT Surgery Admitting [address] [address] Nick Mccoy MD [address] [place] [address] BRONCHOSCOPY FLEXIBLE ADULT 09/15/2023 12:45 PM EDT Office Visit Pulmonary Medicine [address] [place] [address] Shukri Juárez MD [address] [place] [address] 6 month follow up Plan of Treatment - Scheduled Procedures Scheduled Procedures Name Priority Associated Diagnoses Date/Time SURGERY AT NON-THE [facility] 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-related cataract, left eye 05/26/2023 10:55 AM EDT BRONCHOSCOPY FLEXIBLE ADULT 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) 07/21/2023 12:30 PM EDT Visit Diagnoses - documented in this encounter Visit Diagnoses Diagnosis Status post cataract extraction and insertion of intraocular lens of right eye - Primary 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-related cataract, left eye 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 Lung replaced by transplant Hypercholesteremia Pure hypercholesterolemia 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) Lung replaced by transplant Administered Medications - documented in this encounter Administered Medications - Inactive Administered Medications - up to 3 most recent administrations Inactive Administered Medications - up to 3 most recent administrations Medication Order MAR Action Action Date Dose Rate Site proparacaine 0.5 % 1 Drop (ALCAINE) 1 Drop, BOTH EYES, DIRECTED, Starting on 04/29/23 at 1330, Until 04/30/23 at 0129, Administer for pneumo tonometry, tonopen tonometry, or pachymetry. In the event of a proparacaine shortage,administer tetracaine 0.5% ophthalmic drops 1 drop in the left eye as directed for pneumo tonometry, tonopen tonometry, or pachymetry Given 04/29/2023 1:30 PM EDT 1 Drop Discontinued Medications - documented as of this encounter Discontinued Medications Medication Sig Discontinue Reason Start Date End Date fluorometholone (FML LIQUID FILM) 0.1 % ophthalmic suspension Use 1 Drop in both eyes three times aday. 04/12/2023 04/29/2023 fluorometholone (FML LIQUID FILM) 0.1 % ophthalmic suspension Use 1 Drop in the right eye three times a day. 04/29/2023 04/29/2023 Orders - documented in this encounter Orders Medications Ordered That Might Not Have Been Administered Count Last Ordered Date First Ordered Date proparacaine 0.5 % 1 Drop (ALCAINE) 1 04/29/2023 Eye Exam Eye Exam - Visual Acuity (Snellen - Linear) Visual Acuity (Snellen - Linear) Right eye Left eye Dist sc 20/20 Dist cc 20/80 Eye Exam - Tonometry (Applanation, 1:28 PM) Tonometry (Applanation, 1:28 PM) Right eye Left eye Pressure 16 16 Eye Exam - Pupils Pupils Pupils Dark Shape React APD Right eye PERRL 5 Round +2 None Left eye PERRL 5 Round +2 None Eye Exam - Visual Jacques Visual Jacques Right eye Left eye Full Full Eye Exam - Extraocular Movement Extraocular Movement Right eye Left eye Full Full Eye Exam - Neuro/Psych Neuro/Psych Oriented x3: Yes Mood/Affect: Normal Eye Exam - External Exam External Exam Right eye Left eye External Normal including orbits and preauricular lymph nodes Normal including orbits and preauricular lymph nodes Eye Exam - Slit Lamp Exam Slit Lamp Exam Right eye Left eye Lids/Lashes Normal lids, lashes, lacrimal glands, and lacrimal drainage Meibomian gland dysfunction Conjunctiva/Sclera 1+ Injection White and quiet Cornea wound edges well opposed Anterior basement membrane dystrophy Anterior Chamber 1+ Cell, 1+ Flare Deep and quiet Iris Round and reactive Round and reactive Lens Posterior chamber intraocular lens 3+ Nuclear sclerotic cataract, 3+ Posterior subcapsular cataract Anterior Vitreous Normal Normal Eye Exam - Fundus Exam Fundus Exam Right eye Left eye Disc Normal Normal C/D Ratio 0.25 0.25 Macula Normal Normal Vessels Normal Normal Periphery Normal Normal Eye Exam - Wearing Rx Wearing Rx Sphere Cylinder Pana Add Right eye +2.75 Left eye -2.50 +0.50 180 +2.75 Care Teams - documented as of this encounter 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 Specialty Start Date End Date Aisha Newton MD [address] [place] [address] PCP - General Family Medicine 01/13/21 Markos Burgos MD [address] [place], [place] [id number] Primary Staff Physician Cardiology 02/22/22 Regina Decker APRN.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 MANAGER [address] [place], [place] [phone] Referring Transplant Center 08/05/22 Regina Decker APRN.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 MANAGER [address] [place] [id number] Home Care Provider Transplant Center 08/05/22 [facility] Work Phone: [phone] 789-913104-18-2024 History and physical note* Evan May MD - 05/26/2023 7:32 AM EDT H&P reviewed. The patient was examined and there are no changes to the H&P. 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 Encounter for Monitoring Tacrolimus Therapy Aftercare Following Organ Transplant Essential Hypertension Hyperlipidemia Gastroesophageal Reflux Disease Without Esophagitis 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, Left Eye Punctate Keratitis, 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 Obesity, Class I, Bmi 30-34.9 SUBJECTIVE CHIEF COMPLAINT: combined age related cataract left eye HPI: Blurry vision, difficulty reading, watching television left eye PAST MEDICAL HISTORY Diagnosis Date Asthma Bronchiectasis (HCC) COPD (chronic obstructive pulmonary disease) (HCC) Dependence on supplemental oxygen Heterozygous alpha 1-antitrypsin deficiency (HCC) PiMZ Lung nodule Pain in joint, ankle and foot S/P lung transplant (HCC) PAST SURGICAL HISTORY Procedure Laterality Date LUNG TRANSPLANT,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 PAST SURGICAL HISTORY OF 02/07/2011 Rt foot reconstruction REMV CATARACT EXTRACAP,INSERT LENS REMV CATARACT EXTRACAP,INSERT LENS Right 04/28/2023 SN60WF +20.0 D RPR UMBILICAL HRNA 5 YRS/> REDUCIBLE 07/26/2012 Hernia repair, umbilical >5yr FAMILY HISTORY Problem Relation Age of Onset COPD Mother Heart disease Father Breast Cancer Sister No Known Problems Sister No Known Problems Sister COPD Brother COPD Brother SOCIAL HISTORY: Social History Tobacco Use Smoking status: Former Packs/day: 4.00 Years: 30.00 Additional pack years: 0.00 Total pack years: 120.00 Types: Cigarettes Quit date: 2010 Years since quittin.2 Smokeless tobacco: Never Vaping Use Vaping Use: Never used Substance Use Topics Alcohol use: Never Drug use: Never MEDICATIONS: Prior to Admission medications as of 04/29/23 1321 Medication Sig Last Dose Taking tacrolimus IR (PROGRAF) 1 mg capsule In combination with 5mg capsules 8mg in the AM and 7mg in the PM Taking Yes tacrolimus IR (PROGRAF) 5 mg capsule Take 1 capsule by mouth two times a day. In combination with 1mg capsules (Total dose is 8mg twice daily) Taking Yes furosemide (LASIX) 40 mg tablet Take 1 tablet by mouth once daily as needed. Taking Yes predniSONE (DELTASONE) 5 mg tablet Take 1 tablet by mouth once daily. Taking Yes atorvastatin (LIPITOR) 10 mg tablet Take 1 tablet by mouth daily at bedtime. Taking Yes azithromycin (ZITHROMAX) 250 mg tablet Take 1 tablet by mouth every Tuesday, Tuesday, and Tuesday. Taking Yes pantoprazole DR (PROTONIX) 20 mg tablet Take 1 tablet by mouth daily at 6 am. Taking Yes oseltamivir (TAMIFLU) 75 mg capsule Take 1 capsule by mouth two times a day. Tamiflu emergency Rx. Take upon onset of influenza symptoms and get tested as soon as possible. Taking Yes sulfamethoxazole-trimethoprim (BACTRIM DS) 800-160 mg per tablet Take 1 tablet by mouth every Tuesday,Tuesday,Tuesday. Taking Yes valGANciclovir (VALCYTE) 450 mg tablet Take 2 tablets by mouth daily with breakfast. Taking Yes mycophenolate mofetil (CELLCEPT) 250 mg capsule Take 3 capsules by mouth twice daily. Taking Yes phosphorus (K PHOS NEUTRAL) 250 mg tablet Take 1 tablet by mouth twice daily. Taking Yes magnesium oxide (MAG-OX) 400 mg (241.3 mg magnesium) tablet Take 1 tablet by mouth twice daily. Taking Yes traMADol (ULTRAM) 50 mg tablet Take 1 tablet by mouth every 4 hours as needed for pain (for pain.).Taking Yes acetaminophen (TYLENOL) 325 mg tablet Take 2 tablets by mouth every 6 hours as needed for pain. Taking Yes camphor-methyl salicyl-menthol (SALONPAS) 3.1-10-6 % ptmd Use as needed for back pain, joint pain, and pain around clamshell incision. Apply 12 hours on and 12 hours off Taking Yes albuterol (PROVENTIL) 2.5 mg /3 mL (0.083 %) nebulizer solution Use 3 mL via nebulizer every Tuesday,Tuesday,Tuesday. Taking Yes ondansetron (ZOFRAN) 4 mg tablet Take 1 tablet by mouth every 8 hours as needed for nausea/vomiting. Taking Yes keTORolac (ACULAR) 0.5 % ophthalmic solution Use 1 Drop in the right eye four times daily. prednisoLONE acetate (PRED FORTE) 1 % ophthalmic suspension Use 1 Drop in the right eye four times daily. fluorometholone (FML LIQUID FILM) 0.1 % ophthalmic suspension Use 1 Drop in the left eye three times a day. lidocaine (LMX) 4 % cream Apply to affected area as needed (pain around incision site). Patient taking differently: Apply 1 application to affected area as needed (pain around incision site). Medication Comments documented by Madisyn Hager MA on 02/25/2022 at 0959. Pt states medication is still the same as listed on his medication list. CURRENT ALLERGIES: ALLERGIES Allergen Reactions Nsaids (Non-Steroid* Contraindication-Medical Surgical Patient states he is not allergic to Nsaids- caused upset stomach Penicillins GI Upset Patient states he is not allergic to penicillin- caused upset stomach REVIEW OF SYSTEMS: PAIN ASSESSMENT: General: No weight loss, malaise or fevers. Neuro: No Hx of stroke or seizures Respiratory: History of double lung transplant Cardiovascular: Positive for: None GI: No history of GI symptoms or problems. No history of esophageal varices, recent ascites, or ETOH greater than 2 drinks per day. : No history of UTI in past 6 weeks. No history of renal failure. Not currently on or requiring dialysis. No history of symptoms or problems. 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 Has not taken steroids within the past 30 days. No history of endocrinological symptoms or problems. Hematology: No history of bleeding or clotting disorder. Pt is not taking anti- coagulation or platelet medications. No history of hematological symptoms or problems. Oncology: No history of CA metastasis, chemo within 30 days, or radiotherapy within 90 days. Has not lost 10% of body wt in 6 months. No history of oncological symptoms or problems. Psych: No history of psychiatric symptoms or problems. Musculoskeletal: Negative for joint pain or swelling, back pain or muscle pain. Skin: Negative for lesions, rash and itching. PHYSICAL EXAM: VITALS: BP 121/74 Pulse 88 General: Alert and oriented Skin: Normal color, no rash, no lesions. HEENT: EOM, pupils equal, round and reactive. Cardiovascular: Normal S1 & S2, no rubs, murmurs or gallops. No JVD. Pulse regular. Lungs: Normal breath sounds, no wheezes or crackles. Abdomen: Soft, non-tender, no rigidity. Extremities: No deformity, no edema or tenderness, no joint swelling or clubbing. Neurological: Normal cognition and motor skills. Pulses: Carotid and radial pulses normal +2. Diagnostic tests reviewed for today's visit: No new labs or tests ASSESSMENT Medication and Non-Pharmacologic VTE Prophylaxis/Anticoagulants VTE Prophylaxis: VTE prophylaxis appropriate Impression: There is no known pertinent medical condition which may affect gio- operative course Clinical Risk Factors for Possible Cardiac Complications: None Patient is scheduled for a low-risk procedure. FUNCTIONAL STATUS: Do yardwork, such as raking leaves, weeding,or pushing a power mower (4.50 METs) Functional Class (NYHA): N/A [facility]: Not obtained PLAN CONSULTS: Patient does not require consults for optimization at this time. The Following Tests/Procedures Have Been Initiated: None Instructions Given to Patient: Patient given verbal and written preop instructions and voices comprehension and compliance. SIGNATURE: Evan May MD PATIENT NAME: Belgica Angelo DATE: April 29, 2023 TIME: 1:38 PM PAGER/CONTACT #: Source Comments - [facility] In the event this information is protected by the Federal Confidentiality of Alcohol and Drug AbusePatient Records regulations: The Federal rules restrict any use of the information to criminally investigate or prosecute any alcohol or drug abuse patient. 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 Never 04/10/2020 Average Number of Drinks Not on file 04/10/2020 Frequency of Binge Drinking Not on file 04/10/2020 Social History Overall Financial Resource Strain (CARDIA) Answer Date Recorded How hard is it for you to pay for the very basics like food, housing, medical care, and heating? Not hard at all 07/20/2022 Social History Hunger Vital Sign Answer Date Recorded Within the past 12 months, you worried that your food would run out before you got the money to buymore. Never true 07/20/2022 Within the past 12 months, the food you bought just didn't last and you didn't have money to get more. Never true 07/20/2022 Social History PRAPARE - Transportation Answer Date Recorded In the past 12 months, has lack of transportation kept you from medical appointments or from getting medications? No 07/20/2022 In the past 12 months, has lack of transportation kept you from meetings, work, or from getting things needed for daily living? No 07/20/2022 Social History Housing Stability Vital Sign Answer Date Recorded In the last 12 months, was there a time when you were not able to pay the mortgage or rent on time?No 07/20/2022 Number of Places Lived in the Last Year Not on file 07/20/2022 In the last 12 months, was there a time when you did not have a steady place to sleep or slept in ashelter (including now)? No 07/20/2022 Social History Area Deprivation Index Answer Date Recorded National Score (1-100), lower number is lower risk 72 08/08/2022 State Score (1-10), lower number is lower risk 5 08/08/2022 Data from: https://www.neighborhoodatlas.medicine.[facility].edu/. Last address used for calculation [address] 08/08/2022 Social History Sex and Gender Information Value Date Recorded Sex Assigned at Male 01/26/2021 9:33 AM EST Gender Identity Male 01/26/2021 9:33 AM EST Sexual Orientation Not on file Last Filed Vital Signs - documented in this encounter Last Filed Vital Signs Vital Sign Reading Time Taken Comments Blood Pressure 121/74 04/29/2023 1:33 PM EDT Pulse 88 04/29/2023 1:33 PM EDT Temperature - - Respiratory Rate - - Oxygen Saturation - - Inhaled Oxygen Concentration - - Weight - - Height - - Body Mass Index - - Functional Status - documented as of this encounter Functional Status Functional Status Response Date of Assessment Are you deaf or do you have serious difficulty hearing? No 02/23/2022 Are you blind or do you have serious difficulty seeing, even when wearing glasses? No 02/23/2022 Do you have serious difficulty walking or climbing stairs? No 02/23/2022 Do you have difficulty dressing or bathing? No 02/23/2022 Because of a physical, mental, or emotional condition, do you have difficulty doing errands alone such as visiting a doctor's office or shopping? No 02/23/2022 Functional Status Cognitive Status Response Date of Assessment Because of a physical, mental, or emotional condition, do you have serious difficulty concentrating, remembering, or making decisions? No 02/23/2022 Patient Instructions - documented in this encounter Patient Instructions Evan May MD - 04/29/2023 1:19 PM EDT Use post op medications as directed: Current Ophthalmic Meds keTORolac (ACULAR) 0.5 % ophthalmic solution Use 1 Drop in the right eye four times daily for 7 days, then three times daily until 06/02/2023 prednisoLONE acetate (PRED FORTE) 1 % ophthalmic suspension Use 1 Drop in the right eye four times daily for 7 days, then three times daily until 06/02/2023 Current Ophthalmic Meds fluorometholone (FML LIQUID FILM) 0.1 % ophthalmic suspension Use 1 Drop in the left eye three times a day. Systane Complete Artificial Tears - Use 1 Drop into both eyes three times a day. If you have any questions please contact our office at [phone]. After office hours or on the weekend, please call Dr. May on his cell phone at [phone]. Ordered Prescriptions - documented in this encounterReconcile with Patient's Chart Ordered Prescriptions Prescription Sig Dispensed Refills Start Date End Date fluorometholone (FML LIQUID FILM) 0.1 % ophthalmic suspension Use 1 Drop in the left eye three times a day. 5 mL 2 04/29/2023 prednisoLONE acetate (PRED FORTE) 1 % ophthalmic suspension Use 1 Drop in the right eye four times daily. 5 mL 2 04/28/2023 keTORolac (ACULAR) 0.5 % ophthalmic solution Use 1 Drop in the right eye four times daily. 5 mL 2 04/28/2023 06/02/2023 fluorometholone (FML LIQUID FILM) 0.1 % ophthalmic suspension Use 1 Drop in the right eye three times a day. 5 mL 2 04/29/2023 04/29/2023 Progress Notes - documented in this encounter Evan May MD - 04/29/2023 1:14 PM EDT ASSESSMENT/PLAN: 1. 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-related cataract, left eye - ICD9: 366.19, ICD10: H25.812 PHYSICAL EXAM: Vital Signs: Blood pressure 121/74, pulse 88. Respiratory: Normal breath sounds, no wheezing. CARD: Normal heart sounds 1 & 2, normal sinus rhythm. Cataract Presurgical Documentation Cataract: Left eye (OS) Current Visual Acuity Right Eye Distance SC 20/20 Left Eye Distance CC 20/80 Visual Function: Belgica Angelo states that the decline in vision from the cataract impedes his abilities as listed in the HPI, as well as other activities of daily living. Belgica Angelo has confirmed that he is no longer able to function adequately on a day-to-day basisbecause of his current visual condition. Further, it is my medical opinion that the cataract is the primary cause, or at least a significantly contributory cause of his visual dysfunction. With uncomplicated cataract surgery and lens implantation, it is my expectation that his visual function and quality of life will improve, significantly. The risks, benefits, alternatives, personnel and complications of cataract surgery with lens implantation were discussed with Belgica Angelo in detail. he appeared to understand and asked that I proceed with plans for surgery. Upon eye examination, patient was found to have a visually significant cataract left eye . Discussed cataract surgery with patient and different intraocular lens implant options with patient: basic monofocal intraocular lens implant, Toric intraocular lens implant, and presbyopia correction intraocular lens implant. In my medical opinion, based on medical history and ocular examination, cataract surgery with intraocular lens implant will correct patient's vision and improve quality of patient'sdaily living activities. Patient wishes to have traditional cataract surgery with basic intraocularlens left eye 05/26/2023. Patient wishes to have cataract surgery with the option stated above. Patient understands that an intraocular lens implant does not necessarily replace the need for glasses.Patient understands that it is impossible for the surgeon to inform him/her of every possible complication that may occur. The surgeon has answered all of the patient's questions. Patient understandsthat if he/she has a mature or dense cataract, pseudoexfoliation cataract, or history of use of Flom ax, he/she may require the use of Maluyugin Ring and/or Vision Blue during surgery. Patient understands the risks, benefits, and alternatives to surgery. Use medications as directed: Current Ophthalmic Meds fluorometholone (FML LIQUID FILM) 0.1 % ophthalmic suspension Use 1 Drop in the left eye three times a day. Systane Complete Artificial Tears - Use 1 Drop into both eyes three times a day. 2. Status post cataract extraction and insertion of intraocular lens of right eye - ICD9: V45.61, V43.1, ICD10: Z98.41, Z96.1 (primary diagnosis) Use post op medications as directed: Current Ophthalmic Meds keTORolac (ACULAR) 0.5 % ophthalmic solution Use 1 Drop in the right eye four times daily for 7 days, then three times daily until 06/02/2023 prednisoLONE acetate (PRED FORTE) 1 % ophthalmic suspension Use 1 Drop in the right eye four times daily for 7 days, then three times daily until 06/02/[address] Juárez for 1 week post op 3. 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 4. Hypercholesteremia - ICD9: 272.0, ICD10: E78.00 Continue to monitor with primary care physician. I have confirmed and edited as necessary the relevant HPI, ophthalmic history, ROS, and the neuro exam findings as obtained by others. I have seen and examined Belgica Angelo. I have discussed the case and the management of this patient's care with the Resident/Fellow, if applicable. I also have reviewed and agree with the assessment and plan as stated above and agree withall of its relevant components. Evan May MD Plan of Treatment - documented as of this encounter Plan of Treatment - Upcoming Encounters Upcoming Encounters Date Type Department Care Team (Latest Contact Info) Description 05/27/2023 8:15 AM EDT Office Visit OPHT Ophthalmology [address] [place], [place] [id number] Evan May MD [address] [place] [address] 1 day cat po 2nd le 07/07/2023 4:20 PM EDT Office Visit Family Medicine [address] [address] Keshav Phillips APRN.[facility] [address] [place] [address] [id number] est care 07/21/2023 7:15 AM EDT Office Visit [place] [id number] [place] [address] [address] Post lung Txp 07/21/2023 7:55 AM EDT Appointment Radiology [address] [address] Post lung Txp/ FU 07/21/2023 8:30 AM EDT Procedure Pulmonary Medicine [address] [place] [id number] 1, Pulm Fct Lab Main [address] [place] [address] Post lung Txp/ FU 07/21/2023 9:00 AM EDT Office Visit Pulmonary Medicine [address] [place] [id number] Viviane Curtis MD [address] [place] [address] Post lung Txp/ FU 07/21/2023 12:30 PM EDT Hospital Encounter Admitting [address] [address] Nick Mccoy MD [address] [place] [address] 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) [Z94.2] 07/21/2023 12:30 PM EDT - 07/21/2023 1:30 PM EDT Surgery Admitting [address] [address] Nick Mccoy MD [address] [place] [address] BRONCHOSCOPY FLEXIBLE ADULT 09/15/2023 12:45 PM EDT Office Visit Pulmonary Medicine [address] [place] [address] Shukri Juárez MD [address] [place] [address] 6 month follow up Plan of Treatment - Scheduled Procedures Scheduled Procedures Name Priority Associated Diagnoses Date/Time SURGERY AT NON-THE [facility] 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-related cataract, left eye 05/26/2023 10:55 AM EDT BRONCHOSCOPY FLEXIBLE ADULT Lung replaced by transplant (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 Lung replaced by transplant Hypercholesteremia Pure hypercholesterolemia 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) Lung replaced by transplant Administered Medications - documented in this encounter Administered Medications - Inactive Administered Medications - up to 3 most recent administrations Inactive Administered Medications - up to 3 most recent administrations Medication Order MAR Action Action Date Dose Rate Site proparacaine 0.5 % 1 Drop (ALCAINE) 1 Drop, BOTH EYES, DIRECTED, Starting on 04/29/23 at 1330, Until 04/30/23 at 0129, Administer for pneumo tonometry, tonopen tonometry, or pachymetry. In the event of a proparacaine shortage,administer tetracaine 0.5% ophthalmic drops 1 drop in the left eye as directed for pneumo tonometry, tonopen tonometry, or pachymetry Given 04/29/2023 1:30 PM EDT 1 Drop Discontinued Medications - documented as of this encounter Discontinued Medications Medication Sig Discontinue Reason Start Date End Date fluorometholone (FML LIQUID FILM) 0.1 % ophthalmic suspension Use 1 Drop in both eyes three times aday. 04/12/2023 04/29/2023 fluorometholone (FML LIQUID FILM) 0.1 % ophthalmic suspension Use 1 Drop in the right eye three times a day. 04/29/2023 04/29/2023 Orders - documented in this encounter Orders Medications Ordered That Might Not Have Been Administered Count Last Ordered Date First Ordered Date proparacaine 0.5 % 1 Drop (ALCAINE) 1 04/29/2023 Eye Exam Eye Exam - Visual Acuity (Snellen - Linear) Visual Acuity (Snellen - Linear) Right eye Left eye Dist sc 20/20 Dist cc 20/80 Eye Exam - Tonometry (Applanation, 1:28 PM) Tonometry (Applanation, 1:28 PM) Right eye Left eye Pressure 16 16 Eye Exam - Pupils Pupils Pupils Dark Shape React APD Right eye PERRL 5 Round +2 None Left eye PERRL 5 Round +2 None Eye Exam - Visual Jacques Visual Jacques Right eye Left eye Full Full Eye Exam - Extraocular Movement Extraocular Movement Right eye Left eye Full Full Eye Exam - Neuro/Psych Neuro/Psych Oriented x3: Yes Mood/Affect: Normal Eye Exam - External Exam External Exam Right eye Left eye External Normal including orbits and preauricular lymph nodes Normal including orbits and preauricular lymph nodes Eye Exam - Slit Lamp Exam Slit Lamp Exam Right eye Left eye Lids/Lashes Normal lids, lashes, lacrimal glands, and lacrimal drainage Meibomian gland dysfunction Conjunctiva/Sclera 1+ Injection White and quiet Cornea wound edges well opposed Anterior basement membrane dystrophy Anterior Chamber 1+ Cell, 1+ Flare Deep and quiet Iris Round and reactive Round and reactive Lens Posterior chamber intraocular lens 3+ Nuclear sclerotic cataract, 3+ Posterior subcapsular cataract Anterior Vitreous Normal Normal Eye Exam - Fundus Exam Fundus Exam Right eye Left eye Disc Normal Normal C/D Ratio 0.25 0.25 Macula Normal Normal Vessels Normal Normal Periphery Normal Normal Eye Exam - Wearing Rx Wearing Rx Sphere Cylinder Pana Add Right eye +2.75 Left eye -2.50 +0.50 180 +2.75 Care Teams - documented as of this encounter 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 Specialty Start Date End Date Aisha Newton MD [address] [place] [address] PCP - General Family Medicine 01/13/21 Markos Burgos MD [address] [place], [place] [phone] Primary Staff Physician Cardiology 02/22/22 Regina Decker APRN.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 MANAGER [address] [place] [address] Referring Transplant Center 08/05/22 Regina Decker APRN.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 MANAGER [address] [facility] [place] [address] Home Care Provider Transplant Center 08/05/22 * Evan May MD - 05/26/2023 7:32 AM EDT H&P Notes - documented in this encounter Evan May MD - 04/29/2023 1:37 PM EDT HISTORY AND PHYSICAL EXAMINATION SERVICE DATE: 04/29/2023 SERVICE TIME: 1:37 PM PRIMARY CARE PHYSICIAN: Aisha Newton MD, MD REASON FOR VISIT: Belgica Angelo is a 67 year old male who is being seen for 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 The patient has the following: ACTIVE PROBLEM LIST 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 Encounter for Monitoring Tacrolimus Therapy Aftercare Following Organ Transplant Essential Hypertension Hyperlipidemia Gastroesophageal Reflux Disease Without Esophagitis 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, Left Eye Punctate Keratitis, 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 Obesity, Class I, Bmi 30-34.9 SUBJECTIVE CHIEF COMPLAINT: combined age related cataract left eye HPI: Blurry vision, difficulty reading, watching television left eye PAST MEDICAL HISTORY Diagnosis Date Asthma Bronchiectasis (HCC) COPD (chronic obstructive pulmonary disease) (HCC) Dependence on supplemental oxygen Heterozygous alpha 1-antitrypsin deficiency (HCC) PiMZ Lung nodule Pain in joint, ankle and foot S/P lung transplant (HCC) PAST SURGICAL HISTORY Procedure Laterality Date LUNG TRANSPLANT,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 PAST SURGICAL HISTORY OF 02/07/2011 Rt foot reconstruction REMV CATARACT EXTRACAP,INSERT LENS REMV CATARACT EXTRACAP,INSERT LENS Right 04/28/2023 [id number] +20.0 D RPR UMBILICAL HRNA 5 YRS/> REDUCIBLE 07/26/2012 Hernia repair, umbilical >5yr FAMILY HISTORY Problem Relation Age of Onset COPD Mother Heart disease Father Breast Cancer Sister No Known Problems Sister No Known Problems Sister COPD Brother COPD Brother SOCIAL HISTORY: Social History Tobacco Use Smoking status: Former Packs/day: 4.00 Years: 30.00 Additional pack years: 0.00 Total pack years: 120.00 Types: Cigarettes Quit date: 2010 Years since quittin.2 Smokeless tobacco: Never Vaping Use Vaping Use: Never used Substance Use Topics Alcohol use: Never Drug use: Never MEDICATIONS: Prior to Admission medications as of 04/29/23 1321 Medication Sig Last Dose Taking tacrolimus IR (PROGRAF) 1 mg capsule In combination with 5mg capsules 8mg in the AM and 7mg in the PM Taking Yes tacrolimus IR (PROGRAF) 5 mg capsule Take 1 capsule by mouth two times a day. In combination with 1mg capsules (Total dose is 8mg twice daily) Taking Yes furosemide (LASIX) 40 mg tablet Take 1 tablet by mouth once daily as needed. Taking Yes predniSONE (DELTASONE) 5 mg tablet Take 1 tablet by mouth once daily. Taking Yes atorvastatin (LIPITOR) 10 mg tablet Take 1 tablet by mouth daily at bedtime. Taking Yes azithromycin (ZITHROMAX) 250 mg tablet Take 1 tablet by mouth every Tuesday, Tuesday, and Tuesday. Taking Yes pantoprazole DR (PROTONIX) 20 mg tablet Take 1 tablet by mouth daily at 6 am. Taking Yes oseltamivir (TAMIFLU) 75 mg capsule Take 1 capsule by mouth two times a day. Tamiflu emergency Rx. Take upon onset of influenza symptoms and get tested as soon as possible. Taking Yes sulfamethoxazole-trimethoprim (BACTRIM DS) 800-160 mg per tablet Take 1 tablet by mouth every Tuesday,Tuesday,Tuesday. Taking Yes valGANciclovir (VALCYTE) 450 mg tablet Take 2 tablets by mouth daily with breakfast. Taking Yes mycophenolate mofetil (CELLCEPT) 250 mg capsule Take 3 capsules by mouth twice daily. Taking Yes phosphorus (K PHOS NEUTRAL) 250 mg tablet Take 1 tablet by mouth twice daily. Taking Yes magnesium oxide (MAG-OX) 400 mg (241.3 mg magnesium) tablet Take 1 tablet by mouth twice daily. Taking Yes traMADol (ULTRAM) 50 mg tablet Take 1 tablet by mouth every 4 hours as needed for pain (for pain.).Taking Yes acetaminophen (TYLENOL) 325 mg tablet Take 2 tablets by mouth every 6 hours as needed for pain. Taking Yes camphor-methyl salicyl-menthol (SALONPAS) 3.1-10-6 % ptmd Use as needed for back pain, joint pain, and pain around clamshell incision. Apply 12 hours on and 12 hours off Taking Yes albuterol (PROVENTIL) 2.5 mg /3 mL (0.083 %) nebulizer solution Use 3 mL via nebulizer every Tuesday,Tuesday,Tuesday. Taking Yes ondansetron (ZOFRAN) 4 mg tablet Take 1 tablet by mouth every 8 hours as needed for nausea/vomiting. Taking Yes keTORolac (ACULAR) 0.5 % ophthalmic solution Use 1 Drop in the right eye four times daily. prednisoLONE acetate (PRED FORTE) 1 % ophthalmic suspension Use 1 Drop in the right eye four times daily. fluorometholone (FML LIQUID FILM) 0.1 % ophthalmic suspension Use 1 Drop in the left eye three times a day. lidocaine (LMX) 4 % cream Apply to affected area as needed (pain around incision site). Patient taking differently: Apply 1 application to affected area as needed (pain around incision site). Medication Comments documented by Madisyn Hager MA on 02/25/2022 at 0959. Pt states medication is still the same as listed on his medication list. CURRENT ALLERGIES: ALLERGIES Allergen Reactions Nsaids (Non-Steroid* Contraindication-Medical Surgical Patient states he is not allergic to Nsaids- caused upset stomach Penicillins GI Upset Patient states he is not allergic to penicillin- caused upset stomach REVIEW OF SYSTEMS: PAIN ASSESSMENT: General: No weight loss, malaise or fevers. Neuro: No Hx of stroke or seizures Respiratory: History of double lung transplant Cardiovascular: Positive for: None GI: No history of GI symptoms or problems. No history of esophageal varices, recent ascites, or ETOH greater than 2 drinks per day. : No history of UTI in past 6 weeks. No history of renal failure. Not currently on or requiring dialysis. No history of symptoms or problems. 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 Has not taken steroids within the past 30 days. No history of endocrinological symptoms or problems. Hematology: No history of bleeding or clotting disorder. Pt is not taking anti- coagulation or platelet medications. No history of hematological symptoms or problems. Oncology: No history of CA metastasis, chemo within 30 days, or radiotherapy within 90 days. Has not lost 10% of body wt in 6 months. No history of oncological symptoms or problems. Psych: No history of psychiatric symptoms or problems. Musculoskeletal: Negative for joint pain or swelling, back pain or muscle pain. Skin: Negative for lesions, rash and itching. PHYSICAL EXAM: VITALS: BP 121/74 Pulse 88 General: Alert and oriented Skin: Normal color, no rash, no lesions. HEENT: EOM, pupils equal, round and reactive. Cardiovascular: Normal S1 & S2, no rubs, murmurs or gallops. No JVD. Pulse regular. Lungs: Normal breath sounds, no wheezes or crackles. Abdomen: Soft, non-tender, no rigidity. Extremities: No deformity, no edema or tenderness, no joint swelling or clubbing. Neurological: Normal cognition and motor skills. Pulses: Carotid and radial pulses normal +2. Diagnostic tests reviewed for today's visit: No new labs or tests ASSESSMENT Medication and Non-Pharmacologic VTE Prophylaxis/Anticoagulants VTE Prophylaxis: VTE prophylaxis appropriate Impression: There is no known pertinent medical condition which may affect gio- operative course Clinical Risk Factors for Possible Cardiac Complications: None Patient is scheduled for a low-risk procedure. FUNCTIONAL STATUS: Do yardwork, such as raking leaves, weeding,or pushing a power mower (4.50 METs) Functional Class (NYHA): N/A [employer]: Not obtained PLAN CONSULTS: Patient does not require consults for optimization at this time. The Following Tests/Procedures Have Been Initiated: None Instructions Given to Patient: Patient given verbal and written preop instructions and voices comprehension and compliance. SIGNATURE: Evan May MD PATIENT NAME: Belgica Angelo DATE: April 29, 2023 TIME: 1:38 PM PAGER/CONTACT #: Source Comments - [facility] In the event this information is protected by the Federal Confidentiality of Alcohol and Drug AbusePatient Records regulations: The Federal rules restrict any use of the information to criminally investigate or prosecute any alcohol or drug abuse patient. 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 Never 04/10/2020 Average Number of Drinks Not on file 04/10/2020 Frequency of Binge Drinking Not on file 04/10/2020 Social History Overall Financial Resource Strain (CARDIA) Answer Date Recorded How hard is it for you to pay for the very basics like food, housing, medical care, and heating? Not hard at all 07/20/2022 Social History Hunger Vital Sign Answer Date Recorded Within the past 12 months, you worried that your food would run out before you got the money to buymore. Never true 07/20/2022 Within the past 12 months, the food you bought just didn't last and you didn't have money to get more. Never true 07/20/2022 Social History PRAPARE - Transportation Answer Date Recorded In the past 12 months, has lack of transportation kept you from medical appointments or from getting medications? No 07/20/2022 In the past 12 months, has lack of transportation kept you from meetings, work, or from getting things needed for daily living? No 07/20/2022 Social History Housing Stability Vital Sign Answer Date Recorded In the last 12 months, was there a time when you were not able to pay the mortgage or rent on time?No 07/20/2022 Number of Places Lived in the Last Year Not on file 07/20/2022 In the last 12 months, was there a time when you did not have a steady place to sleep or slept in ashelter (including now)? No 07/20/2022 Social History Area Deprivation Index Answer Date Recorded National Score (1-100), lower number is lower risk 72 08/08/2022 State Score (1-10), lower number is lower risk 5 08/08/2022 Data from: https://www.neighborhoodatlas.medicine.[facility].edu/. Last address used for calculation [address] 08/08/2022 Social History Sex and Gender Information Value Date Recorded Sex Assigned at Male 01/26/2021 9:33 AM EST Gender Identity Male 01/26/2021 9:33 AM EST Sexual Orientation Not on file Last Filed Vital Signs - documented in this encounter Last Filed Vital Signs Vital Sign Reading Time Taken Comments Blood Pressure 121/74 04/29/2023 1:33 PM EDT Pulse 88 04/29/2023 1:33 PM EDT Temperature - - Respiratory Rate - - Oxygen Saturation - - Inhaled Oxygen Concentration - - Weight - - Height - - Body Mass Index - - Functional Status - documented as of this encounter Functional Status Functional Status Response Date of Assessment Are you deaf or do you have serious difficulty hearing? No 02/23/2022 Are you blind or do you have serious difficulty seeing, even when wearing glasses? No 02/23/2022 Do you have serious difficulty walking or climbing stairs? No 02/23/2022 Do you have difficulty dressing or bathing? No 02/23/2022 Because of a physical, mental, or emotional condition, do you have difficulty doing errands alone such as visiting a doctor's office or shopping? No 02/23/2022 Functional Status Cognitive Status Response Date of Assessment Because of a physical, mental, or emotional condition, do you have serious difficulty concentrating, remembering, or making decisions? No 02/23/2022 Patient Instructions - documented in this encounter Patient Instructions Evan May MD - 04/29/2023 1:19 PM EDT Use post op medications as directed: Current Ophthalmic Meds keTORolac (ACULAR) 0.5 % ophthalmic solution Use 1 Drop in the right eye four times daily for 7 days, then three times daily until 06/02/2023 prednisoLONE acetate (PRED FORTE) 1 % ophthalmic suspension Use 1 Drop in the right eye four times daily for 7 days, then three times daily until 06/02/2023 Current Ophthalmic Meds fluorometholone (FML LIQUID FILM) 0.1 % ophthalmic suspension Use 1 Drop in the left eye three times a day. Systane Complete Artificial Tears - Use 1 Drop into both eyes three times a day. If you have any questions please contact our office at [phone]. After office hours or on the weekend, please call Dr. May on his cell phone at [phone]. Ordered Prescriptions - documented in this encounterReconcile with Patient's Chart Ordered Prescriptions Prescription Sig Dispensed Refills Start Date End Date fluorometholone (FML LIQUID FILM) 0.1 % ophthalmic suspension Use 1 Drop in the left eye three times a day. 5 mL 2 04/29/2023 prednisoLONE acetate (PRED FORTE) 1 % ophthalmic suspension Use 1 Drop in the right eye four times daily. 5 mL 2 04/28/2023 keTORolac (ACULAR) 0.5 % ophthalmic solution Use 1 Drop in the right eye four times daily. 5 mL 2 04/28/2023 06/02/2023 fluorometholone (FML LIQUID FILM) 0.1 % ophthalmic suspension Use 1 Drop in the right eye three times a day. 5 mL 2 04/29/2023 04/29/2023 Progress Notes - documented in this encounter Evan May MD - 04/29/2023 1:14 PM EDT ASSESSMENT/PLAN: 1. 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-related cataract, left eye - ICD9: 366.19, ICD10: H25.812 PHYSICAL EXAM: Vital Signs: Blood pressure 121/74, pulse 88. Respiratory: Normal breath sounds, no wheezing. CARD: Normal heart sounds 1 & 2, normal sinus rhythm. Cataract Presurgical Documentation Cataract: Left eye (OS) Current Visual Acuity Right Eye Distance SC 20/20 Left Eye Distance CC 20/80 Visual Function: Belgica Angelo states that the decline in vision from the cataract impedes his abilities as listed in the HPI, as well as other activities of daily living. Belgica Angelo has confirmed that he is no longer able to function adequately on a day-to-day basisbecause of his current visual condition. Further, it is my medical opinion that the cataract is the primary cause, or at least a significantly contributory cause of his visual dysfunction. With uncomplicated cataract surgery and lens implantation, it is my expectation that his visual function and quality of life will improve, significantly. The risks, benefits, alternatives, personnel and complications of cataract surgery with lens implantation were discussed with Belgica Angelo in detail. he appeared to understand and asked that I proceed with plans for surgery. Upon eye examination, patient was found to have a visually significant cataract left eye . Discussed cataract surgery with patient and different intraocular lens implant options with patient: basic monofocal intraocular lens implant, Toric intraocular lens implant, and presbyopia correction intraocular lens implant. In my medical opinion, based on medical history and ocular examination, cataract surgery with intraocular lens implant will correct patient's vision and improve quality of patient'sdaily living activities. Patient wishes to have traditional cataract surgery with basic intraocularlens left eye 05/26/2023. Patient wishes to have cataract surgery with the option stated above. Patient understands that an intraocular lens implant does not necessarily replace the need for glasses.Patient understands that it is impossible for the surgeon to inform him/her of every possible complication that may occur. The surgeon has answered all of the patient's questions. Patient understandsthat if he/she has a mature or dense cataract, pseudoexfoliation cataract, or history of use of Flom ax, he/she may require the use of Maluyugin Ring and/or Vision Blue during surgery. Patient understands the risks, benefits, and alternatives to surgery. Use medications as directed: Current Ophthalmic Meds fluorometholone (FML LIQUID FILM) 0.1 % ophthalmic suspension Use 1 Drop in the left eye three times a day. Systane Complete Artificial Tears - Use 1 Drop into both eyes three times a day. 2. Status post cataract extraction and insertion of intraocular lens of right eye - ICD9: V45.61, V43.1, ICD10: Z98.41, Z96.1 (primary diagnosis) Use post op medications as directed: Current Ophthalmic Meds keTORolac (ACULAR) 0.5 % ophthalmic solution Use 1 Drop in the right eye four times daily for 7 days, then three times daily until 06/02/2023 prednisoLONE acetate (PRED FORTE) 1 % ophthalmic suspension Use 1 Drop in the right eye four times daily for 7 days, then three times daily until 06/02/[address] Juárez for 1 week post op 3. 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 4. Hypercholesteremia - ICD9: 272.0, ICD10: E78.00 Continue to monitor with primary care physician. I have confirmed and edited as necessary the relevant HPI, ophthalmic history, ROS, and the neuro exam findings as obtained by others. I have seen and examined Belgica Angelo. I have discussed the case and the management of this patient's care with the Resident/Fellow, if applicable. I also have reviewed and agree with the assessment and plan as stated above and agree withall of its relevant components. Evan May MD Plan of Treatment - documented as of this encounter Plan of Treatment - Upcoming Encounters Upcoming Encounters Date Type Department Care Team (Latest Contact Info) Description 05/27/2023 8:15 AM EDT Office Visit OPHT Ophthalmology [address] [place] [address] Evan May MD [address] [place] [address] 1 day cat po 2nd le 07/07/2023 4:20 PM EDT Office Visit Family Medicine [address] [address] Keshav Phillips APRN.[facility] [address] [place], [place] [id number] est care 07/21/2023 7:15 AM EDT Office Visit [place] [id number] [facility] [address] [place] [address] Post lung Txp 07/21/2023 7:55 AM EDT Appointment Radiology [address] [place] [address] Post lung Txp/ FU 07/21/2023 8:30 AM EDT Procedure Pulmonary Medicine [address] [place] [address] 1, Pulm Fct Lab Main [address] [place] [address] Post lung Txp/ FU 07/21/2023 9:00 AM EDT Office Visit Pulmonary Medicine [address] [place] [address] Viviane Curtis MD [address] [place] [address] Post lung Txp/ FU 07/21/2023 12:30 PM EDT Hospital Encounter Admitting [address] [address] Nick Mccoy MD [address] [place], [place] [id number] 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) [Z94.2] 07/21/2023 12:30 PM EDT - 07/21/2023 1:30 PM EDT Surgery Admitting [address] [address] Nick Mccoy MD [address] [place] [address] BRONCHOSCOPY FLEXIBLE ADULT 09/15/2023 12:45 PM EDT Office Visit Pulmonary Medicine [address] [place] [address] Shukri Juárez MD [address] [place] [address] 6 month follow up Plan of Treatment - Scheduled Procedures Scheduled Procedures Name Priority Associated Diagnoses Date/Time SURGERY AT NON-THE [facility] 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-related cataract, left eye 05/26/2023 10:55 AM EDT BRONCHOSCOPY FLEXIBLE ADULT 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) 07/21/2023 12:30 PM EDT Visit Diagnoses - documented in this encounter Visit Diagnoses Diagnosis Status post cataract extraction and insertion of intraocular lens of right eye - Primary 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-related cataract, left eye 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 Lung replaced by transplant Hypercholesteremia Pure hypercholesterolemia 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) Lung replaced by transplant Administered Medications - documented in this encounter Administered Medications - Inactive Administered Medications - up to 3 most recent administrations Inactive Administered Medications - up to 3 most recent administrations Medication Order MAR Action Action Date Dose Rate Site proparacaine 0.5 % 1 Drop (ALCAINE) 1 Drop, BOTH EYES, DIRECTED, Starting on 04/29/23 at 1330, Until 04/30/23 at 0129, Administer for pneumo tonometry, tonopen tonometry, or pachymetry. In the event of a proparacaine shortage,administer tetracaine 0.5% ophthalmic drops 1 drop in the left eye as directed for pneumo tonometry, tonopen tonometry, or pachymetry Given 04/29/2023 1:30 PM EDT 1 Drop Discontinued Medications - documented as of this encounter Discontinued Medications Medication Sig Discontinue Reason Start Date End Date fluorometholone (FML LIQUID FILM) 0.1 % ophthalmic suspension Use 1 Drop in both eyes three times aday. 04/12/2023 04/29/2023 fluorometholone (FML LIQUID FILM) 0.1 % ophthalmic suspension Use 1 Drop in the right eye three times a day. 04/29/2023 04/29/2023 Orders - documented in this encounter Orders Medications Ordered That Might Not Have Been Administered Count Last Ordered Date First Ordered Date proparacaine 0.5 % 1 Drop (ALCAINE) 1 04/29/2023 Eye Exam Eye Exam - Visual Acuity (Snellen - Linear) Visual Acuity (Snellen - Linear) Right eye Left eye Dist sc 20/20 Dist cc 20/80 Eye Exam - Tonometry (Applanation, 1:28 PM) Tonometry (Applanation, 1:28 PM) Right eye Left eye Pressure 16 16 Eye Exam - Pupils Pupils Pupils Dark Shape React APD Right eye PERRL 5 Round +2 None Left eye PERRL 5 Round +2 None Eye Exam - Visual Jacques Visual Jacques Right eye Left eye Full Full Eye Exam - Extraocular Movement Extraocular Movement Right eye Left eye Full Full Eye Exam - Neuro/Psych Neuro/Psych Oriented x3: Yes Mood/Affect: Normal Eye Exam - External Exam External Exam Right eye Left eye External Normal including orbits and preauricular lymph nodes Normal including orbits and preauricular lymph nodes Eye Exam - Slit Lamp Exam Slit Lamp Exam Right eye Left eye Lids/Lashes Normal lids, lashes, lacrimal glands, and lacrimal drainage Meibomian gland dysfunction Conjunctiva/Sclera 1+ Injection White and quiet Cornea wound edges well opposed Anterior basement membrane dystrophy Anterior Chamber 1+ Cell, 1+ Flare Deep and quiet Iris Round and reactive Round and reactive Lens Posterior chamber intraocular lens 3+ Nuclear sclerotic cataract, 3+ Posterior subcapsular cataract Anterior Vitreous Normal Normal Eye Exam - Fundus Exam Fundus Exam Right eye Left eye Disc Normal Normal C/D Ratio 0.25 0.25 Macula Normal Normal Vessels Normal Normal Periphery Normal Normal Eye Exam - Wearing Rx Wearing Rx Sphere Cylinder Pana Add Right eye +2.75 Left eye -2.50 +0.50 180 +2.75 Care Teams - documented as of this encounter 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 Specialty Start Date End Date Aisha Newton MD [address] [place] [address] PCP - General Family Medicine 01/13/21 Markos Burgos MD [address] [place] [address] Primary Staff Physician Cardiology 02/22/22 Regina Decker APRN.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 MANAGER [address] [place] [address] Referring Transplant Center 08/05/22 Regina Decker APRN.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 MANAGER [address] [place] [address] Home Care Provider Transplant Center 08/05/22 [facility] Phone: [phone]) 219-960204-10-2024 Miscellaneous Notes* Telephone Encounter - Eileen Cm RPh - 05/18/2023 10:34 AM EDT Tacrolimus level was therapeutic at 10.8 (goal 12). Current dose is 8/7. Would recommend no change to current dose. Recheck labs in 2 weeks. Eileen Cm RPh * Telephone Encounter - Magda Concepcion - 05/18/2023 8:24 AM EDT Transplants: 07/20/2022 (Lung) Lab Results Component Value Date FK506 10.8 05/17/2023 CREAT 2.07 (H) 05/17/2023 K 5.3 (H) 05/17/2023 WBC 5.61 05/17/2023 ABSNEUT 3.93 05/17/2023 CMVCPY Not detected 05/17/2023 Estimated Creatinine Clearance: 42.9 mL/min (A) (based on SCr of 2.07 mg/dL (H)). tacrolimus IR (PROGRAF) 1 mg capsule Sig: Take 2 capsules by mouth two times a day. In combination with 5mg capsules 8mg in the AM and 7mg in the PM tacrolimus IR (PROGRAF) 5 mg capsule Sig: Take 1 capsule by mouth two times a day. 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 Encounter for Monitoring Tacrolimus Therapy Aftercare Following Organ Transplant Essential Hypertension Hyperlipidemia Gastroesophageal Reflux Disease Without Esophagitis 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, Left Eye Punctate Keratitis, 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 Obesity, Class I, Bmi 30-34.9 SUBJECTIVE CHIEF COMPLAINT: combined age related cataract left eye HPI: Blurry vision, difficulty reading, watching television left eye PAST MEDICAL HISTORY Diagnosis Date Asthma Bronchiectasis (HCC) COPD (chronic obstructive pulmonary disease) (HCC) Dependence on supplemental oxygen Heterozygous alpha 1-antitrypsin deficiency (HCC) PiMZ Lung nodule Pain in joint, ankle and foot S/P lung transplant (HCC) PAST SURGICAL HISTORY Procedure Laterality Date LUNG TRANSPLANT,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 PAST SURGICAL HISTORY OF 02/07/2011 Rt foot reconstruction REMV CATARACT EXTRACAP,INSERT LENS REMV CATARACT EXTRACAP,INSERT LENS Right 04/28/2023 SN60WF +20.0 D RPR UMBILICAL HRNA 5 YRS/> REDUCIBLE 07/26/2012 Hernia repair, umbilical >5yr FAMILY HISTORY Problem Relation Age of Onset COPD Mother Heart disease Father Breast Cancer Sister No Known Problems Sister No Known Problems Sister COPD Brother COPD Brother SOCIAL HISTORY: Social History Tobacco Use Smoking status: Former Packs/day: 4.00 Years: 30.00 Additional pack years: 0.00 Total pack years: 120.00 Types: Cigarettes Quit date: 2010 Years since quittin.2 Smokeless tobacco: Never Vaping Use Vaping Use: Never used Substance Use Topics Alcohol use: Never Drug use: Never MEDICATIONS: Prior to Admission medications as of 3/22/24 1321 Medication Sig Last Dose Taking tacrolimus IR (PROGRAF) 1 mg capsule In combination with 5mg capsules 8mg in the AM and 7mg in the PM Taking Yes tacrolimus IR (PROGRAF) 5 mg capsule Take 1 capsule by mouth two times a day. In combination with 1mg capsules (Total dose is 8mg twice daily) Taking Yes furosemide (LASIX) 40 mg tablet Take 1 tablet by mouth once daily as needed. Taking Yes predniSONE (DELTASONE) 5 mg tablet Take 1 tablet by mouth once daily. Taking Yes atorvastatin (LIPITOR) 10 mg tablet Take 1 tablet by mouth daily at bedtime. Taking Yes azithromycin (ZITHROMAX) 250 mg tablet Take 1 tablet by mouth every Tuesday, Tuesday, and Tuesday. Taking Yes pantoprazole DR (PROTONIX) 20 mg tablet Take 1 tablet by mouth daily at 6 am. Taking Yes oseltamivir (TAMIFLU) 75 mg capsule Take 1 capsule by mouth two times a day. Tamiflu emergency Rx. Take upon onset of influenza symptoms and get tested as soon as possible. Taking Yes sulfamethoxazole-trimethoprim (BACTRIM DS) 800-160 mg per tablet Take 1 tablet by mouth every Tuesday,Tuesday,Tuesday. Taking Yes valGANciclovir (VALCYTE) 450 mg tablet Take 2 tablets by mouth daily with breakfast. Taking Yes mycophenolate mofetil (CELLCEPT) 250 mg capsule Take 3 capsules by mouth twice daily. Taking Yes phosphorus (K PHOS NEUTRAL) 250 mg tablet Take 1 tablet by mouth twice daily. Taking Yes magnesium oxide (MAG-OX) 400 mg (241.3 mg magnesium) tablet Take 1 tablet by mouth twice daily. Taking Yes traMADol (ULTRAM) 50 mg tablet Take 1 tablet by mouth every 4 hours as needed for pain (for pain.).Taking Yes acetaminophen (TYLENOL) 325 mg tablet Take 2 tablets by mouth every 6 hours as needed for pain. Taking Yes camphor-methyl salicyl-menthol (SALONPAS) 3.1-10-6 % ptmd Use as needed for back pain, joint pain, and pain around clamshell incision. Apply 12 hours on and 12 hours off Taking Yes albuterol (PROVENTIL) 2.5 mg /3 mL (0.083 %) nebulizer solution Use 3 mL via nebulizer every Tuesday,Tuesday,Tuesday. Taking Yes ondansetron (ZOFRAN) 4 mg tablet Take 1 tablet by mouth every 8 hours as needed for nausea/vomiting. Taking Yes keTORolac (ACULAR) 0.5 % ophthalmic solution Use 1 Drop in the right eye four times daily. prednisoLONE acetate (PRED FORTE) 1 % ophthalmic suspension Use 1 Drop in the right eye four times daily. fluorometholone (FML LIQUID FILM) 0.1 % ophthalmic suspension Use 1 Drop in the left eye three times a day. lidocaine (LMX) 4 % cream Apply to affected area as needed (pain around incision site). Patient taking differently: Apply 1 application to affected area as needed (pain around incision site). Medication Comments documented by Madisyn Hager MA on 02/25/2022 at 0959. Pt states medication is still the same as listed on his medication list. CURRENT ALLERGIES: ALLERGIES Allergen Reactions Nsaids (Non-Steroid* Contraindication-Medical Surgical Patient states he is not allergic to Nsaids- caused upset stomach Penicillins GI Upset Patient states he is not allergic to penicillin- caused upset stomach REVIEW OF SYSTEMS: PAIN ASSESSMENT: General: No weight loss, malaise or fevers. Neuro: No Hx of stroke or seizures Respiratory: History of double lung transplant Cardiovascular: Positive for: None GI: No history of GI symptoms or problems. No history of esophageal varices, recent ascites, or ETOH greater than 2 drinks per day. : No history of UTI in past 6 weeks. No history of renal failure. Not currently on or requiring dialysis. No history of symptoms or problems. 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 Has not taken steroids within the past 30 days. No history of endocrinological symptoms or problems. Hematology: No history of bleeding or clotting disorder. Pt is not taking anti- coagulation or platelet medications. No history of hematological symptoms or problems. Oncology: No history of CA metastasis, chemo within 30 days, or radiotherapy within 90 days. Has not lost 10% of body wt in 6 months. No history of oncological symptoms or problems. Psych: No history of psychiatric symptoms or problems. Musculoskeletal: Negative for joint pain or swelling, back pain or muscle pain. Skin: Negative for lesions, rash and itching. PHYSICAL EXAM: VITALS: BP 121/74 Pulse 88 General: Alert and oriented Skin: Normal color, no rash, no lesions. HEENT: EOM, pupils equal, round and reactive. Cardiovascular: Normal S1 & S2, no rubs, murmurs or gallops. No JVD. Pulse regular. Lungs: Normal breath sounds, no wheezes or crackles. Abdomen: Soft, non-tender, no rigidity. Extremities: No deformity, no edema or tenderness, no joint swelling or clubbing. Neurological: Normal cognition and motor skills. Pulses: Carotid and radial pulses normal +2. Diagnostic tests reviewed for today's visit: No new labs or tests ASSESSMENT Medication and Non-Pharmacologic VTE Prophylaxis/Anticoagulants VTE Prophylaxis: VTE prophylaxis appropriate Impression: There is no known pertinent medical condition which may affect gio- operative course Clinical Risk Factors for Possible Cardiac Complications: None Patient is scheduled for a low-risk procedure. FUNCTIONAL STATUS: Do yardwork, such as raking leaves, weeding,or pushing a power mower (4.50 METs) Functional Class (NYHA): N/A [facility]: Not obtained PLAN CONSULTS: Patient does not require consults for optimization at this time. The Following Tests/Procedures Have Been Initiated: None Instructions Given to Patient: Patient given verbal and written preop instructions and voices comprehension and compliance. SIGNATURE: Evan May MD PATIENT NAME: Belgica Angelo DATE: April 29, 2023 TIME: 1:38 PM PAGER/CONTACT #: [facility] Instructions* Patient Instructions* Evan May MD - 04/29/2023 1:19 PM EDT Use post op medications as directed: Current Ophthalmic Meds keTORolac (ACULAR) 0.5 % ophthalmic solution Use 1 Drop in the right eye four times daily for 7 days, then three times daily until 06/02/2023 prednisoLONE acetate (PRED FORTE) 1 % ophthalmic suspension Use 1 Drop in the right eye four times daily for 7 days, then three times daily until 06/02/2023 Current Ophthalmic Meds fluorometholone (FML LIQUID FILM) 0.1 % ophthalmic suspension Use 1 Drop in the left eye three times a day. Systane Complete Artificial Tears - Use 1 Drop into both eyes three times a day. If you have any questions please contact our office at [phone]. After office hours or on the weekend, please call Dr. May on his cell phone at [phone]. documented in this encounterCommunity [facility]03-[facility]24 History of Present illness Narrative* Evan May MD - 04/29/2023 1:14 PM EDT ASSESSMENT/PLAN: 1. 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-related cataract, left eye - ICD9: 366.19, ICD10: H25.812 PHYSICAL EXAM: Vital Signs: Blood pressure 121/74, pulse 88. Respiratory: Normal breath sounds, no wheezing. CARD: Normal heart sounds 1 & 2, normal sinus rhythm. Cataract Presurgical Documentation Cataract: Left eye (OS) Current Visual Acuity Right Eye Distance SC 20/20 Left Eye Distance CC 20/80 Visual Function: Belgica Angelo states that the decline in vision from the cataract impedes his abilities as listed in the HPI, as well as other activities of daily living. Belgica Angelo has confirmed that he is no longer able to function adequately on a day-to-day basisbecause of his current visual condition. Further, it is my medical opinion that the cataract is the primary cause, or at least a significantly contributory cause of his visual dysfunction. With uncomplicated cataract surgery and lens implantation, it is my expectation that his visual function and quality of life will improve, significantly. The risks, benefits, alternatives, personnel and complications of cataract surgery with lens implantation were discussed with Belgica Angelo in detail. he appeared to understand and asked that I proceed with plans for surgery. Upon eye examination, patient was found to have a visually significant cataract left eye . Discussed cataract surgery with patient and different intraocular lens implant options with patient: basic monofocal intraocular lens implant, Toric intraocular lens implant, and presbyopia correction intraocular lens implant. In my medical opinion, based on medical history and ocular examination, cataract surgery with intraocular lens implant will correct patient's vision and improve quality of patient'sdaily living activities. Patient wishes to have traditional cataract surgery with basic intraocularlens left eye 05/26/2023. Patient wishes to have cataract surgery with the option stated above. Patient understands that an intraocular lens implant does not necessarily replace the need for glasses.Patient understands that it is impossible for the surgeon to inform him/her of every possible complication that may occur. The surgeon has answered all of the patient's questions. Patient understandsthat if he/she has a mature or dense cataract, pseudoexfoliation cataract, or history of use of Flom ax, he/she may require the use of Maluyugin Ring and/or Vision Blue during surgery. Patient understands the risks, benefits, and alternatives to surgery. Use medications as directed: Current Ophthalmic Meds fluorometholone (FML LIQUID FILM) 0.1 % ophthalmic suspension Use 1 Drop in the left eye three times a day. Systane Complete Artificial Tears - Use 1 Drop into both eyes three times a day. 2. Status post cataract extraction and insertion of intraocular lens of right eye - ICD9: V45.61, V43.1, ICD10: Z98.41, Z96.1 (primary diagnosis) Use post op medications as directed: Current Ophthalmic Meds keTORolac (ACULAR) 0.5 % ophthalmic solution Use 1 Drop in the right eye four times daily for 7 days, then three times daily until 06/02/2023 prednisoLONE acetate (PRED FORTE) 1 % ophthalmic suspension Use 1 Drop in the right eye four times daily for 7 days, then three times daily until 06/02/[address] Juárez for 1 week post op 3. 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 4. Hypercholesteremia - ICD9: 272.0, ICD10: E78.00 Continue to monitor with primary care physician. I have confirmed and edited as necessary the relevant HPI, ophthalmic history, ROS, and the neuro exam findings as obtained by others. I have seen and examined Belgica Angleo. I have discussed the case and the management of this patient's care with the Resident/Fellow, if applicable. I also have reviewed and agree with the assessment and plan as stated above and agree withall of its relevant components. Evan May MD documented in this encounterC[id number] [facility] Discharge instructions* Discharge Instructions* Evan May MD - 04/28/2023 8:05 AM EDT Please see enclosed instructions from Dr. May regarding eye drop schedule, restrictions and use of eye shield. Please take bag with eye drops that were given to you today as well as ALL eye drops that you are using at home with you to your appointment tomorrow at Dr. May's office. [facility] Work Phone: 1(165) 570-851903-21-2024 Miscellaneous Notes* Op Note - Evan May MD - 04/28/2023 7:38 AM EDT Phacoemulsification Cataract with Insertion Intraocular Lens (R) Operative Note Date: 04/28/2023 OR Location: [facility] OR Name: Belgica Angelo, : 1955, Age: 67 y.o., , Sex: male Diagnosis Pre-op Diagnosis * Combined forms of age-related cataract of right eye [H25.811] Post-op Diagnosis * Combined forms of age-related cataract of right eye [H25.811] Procedures Phacoemulsification Cataract with Insertion Intraocular Lens 80537 - WI XCAPSL CTRC RMVL INSJ IO LENS PROSTH W/O ECP Surgeons * Evan May - Primary Resident/Fellow/Other Merchandise Planner: Surgeon(s) and Role: Procedure Summary Anesthesia: Monitor Anesthesia Care ASA: III Anesthesia Staff: Anesthesiologist: Aisha Salazar DO Estimated Blood Loss: None Intra-op Medications: Administrations occurring from 0730 to 0810 on 04/28/23: Medication Name Total Dose lidocaine 1%-phenylephrine 1.5% intravitreal injection 2 mL lactated Ringer's infusion Cannot be calculated Anesthesia Record Intraprocedure I/O Totals Intake lactated Ringer's infusion 150.00 mL Total Intake 150 mL Specimen: No specimens collected Staff: Pigment Pusher: Dinah Daniels RN Scrub Person: Moon Sawyer Drains and/or Catheters: * None in log * Tourniquet Times: Implants: Implants Type Name Action Serial No. Lens LENS, INTRAOCULAR, [id number] 20.0 YOANNA - [id number] - [id number] Implanted [id number] Findings: Combined Form Age Related Cataract Right Eye Indications: Belgica Angelo is an 67 y.o. male who is having surgery for Combined forms of age-related cataract of right eye [H25.811]. Decreased vision right eye. Difficulty seeing for near and distance right eye. Vision impedes patients ability to drive, read and watch TV as well as other dailyliving activities. Complains of glare and halos right eye. The patient was seen in the preoperative area. The risks, benefits, complications, treatment options, non-operative alternatives, expected recovery and outcomes were discussed with the patient. The possibilities of reaction to medication, pulmonary aspiration, injury to surrounding structures, bleeding, recurrent infection, the need for additional procedures, failure to diagnose a condition, and creating a complication requiring transfusion or operation were discussed with the patient. The patient concurred with the proposed plan, giving informed consent. The site of surgery was properly noted/marked if necessary per policy. The patient has been actively warmed in preoperative area. Preopera tive antibiotics are not indicated. Venous thrombosis prophylaxis are not indicated. Procedure Details: The patient was correctly identified in the preop area and the operative eye wasmarked with a marking pen. The operative eye was dilated in the preoperative area. The patient was then taken to the operating room where timeout was performed before starting the procedure. Combinedanesthesia with intravenous sedation and topical tetracaine eyedrops were given the left eye. The operative eye was prepped and draped in the standard sterile ophthalmic fashion in preparation for ophthalmic surgery. A Jerry wire speculum was then inserted between the eyelids of the left eye and the operating microscope was placed over the left eye. A paracentesis incision was made approximately 30 away from the planned surgical incision site with the help of MVR blade. 1% lidocaine MPF with Phenylephrine 1.5% PF was injected into the anterior chamber through the paracentesis incision. A near limbal clear corneal incision was fashioned in the temporal quadrant just outside the vascular arcade and Viscoat was injected into anterior chamber to firm the eye. A bent needle cystotome was used and Utrata forceps were utilized to create a continuous curvilinear capsulorrhexis. BSS was injected beneath the anterior capsule to hydrodissect the nucleus from adjacent cortex and capsule. The residual cortex were then aspirated with irrigation aspiration handpiece. The posterior capsule was then polished with the help of soft irrigation-aspiration tip. Provisc viscoelastic was then injected into the eye to reform the anterior chamber and to open the capsular bag. The intraocular lens implant was taken from its sterile wrapping, inspected under the surgical microscope and found to be ingood condition. The intraocular lens implant +20.0D was injected into the capsule bag. The Provisc w as then aspirated from the anterior chamber and from behind the intraocular lens implant. The anterior chamber was inflated with the help of BSS to moderate tension. The edges of the surgical incision were then hydrated with the help of BSS. Vigamox was then injected into the anterior chamber and into the capsule bag through the paracentesis incision. The surgical wound was then inspected and found to be watertight. The wire speculum and drapes were then removed. Pred Forte eyedrops, Acular eyedrops and Betadine 5% sterile ophthalmic solution were instilled in the conjunctival sac. The patient tolerated the procedure well and was taken to recovery room in stable condition. Complications: None; patient tolerated the procedure well. Disposition: Home Condition: stable Attending Attestation: I performed the procedure. Evan May * Preprocedure Instructions - Anita Zaragoza RN - 04/27/2023 9:53 AM EDT No outpatient medications have been marked as taking for the 04/28/23 encounter (Hospital Encounter). NPO Instructions: Nothing to eat or drink after midnight, stay on normal schedule of transplant medications with sip of water Additional Instructions: Will need driver trainer home documented in this encounterOur [facility] [place] Work Phone: 1(144) 622-262803-21-2024 Note* Op Note - Evan May MD - 04/28/2023 7:38 AM EDT Phacoemulsification Cataract with Insertion Intraocular Lens (R) Operative Note Date: 04/28/2023 OR Location: [facility] OR Name: Belgica Angelo DOB: 1955, Age: 67 y.o., , Sex: male Diagnosis Pre-op Diagnosis * Combined forms of age-related cataract of right eye [H25.811] Post-op Diagnosis * Combined forms of age-related cataract of right eye [H25.811] Procedures Phacoemulsification Cataract with Insertion Intraocular Lens 78463 - WI XCAPSL CTRC RMVL INSJ IO LENS PROSTH W/O ECP Surgeons * Evan May - Primary Resident/Fellow/Other Merchandise Planner: Surgeon(s) and Role: Procedure Summary Anesthesia: Monitor Anesthesia Care ASA: III Anesthesia Staff: Anesthesiologist: Aisha Salazar DO Estimated Blood Loss: None Intra-op Medications: Administrations occurring from 0730 to 0810 on 04/28/23: Medication Name Total Dose lidocaine 1%-phenylephrine 1.5% intravitreal injection 2 mL lactated Ringer's infusion Cannot be calculated Anesthesia Record Intraprocedure I/O Totals Intake lactated Ringer's infusion 150.00 mL Total Intake 150 mL Specimen: No specimens collected Staff: Pigment Pusher: Dinah Daniels RN Scrub Person: Moon Sawyer Drains and/or Catheters: * None in log * Tourniquet Times: Implants: Implants Type Name Action Serial No. Lens LENS, INTRAOCULAR, [id number] 20.0 YOANNA - [id number] - [id number] Implanted [id number] Findings: Combined Form Age Related Cataract Right Eye Indications: Belgica Angelo is an 67 y.o. male who is having surgery for Combined forms of age-related cataract of right eye [H25.811]. Decreased vision right eye. Difficulty seeing for near and distance right eye. Vision impedes patients ability to drive, read and watch TV as well as other dailyliving activities. Complains of glare and halos right eye. The patient was seen in the preoperative area. The risks, benefits, complications, treatment options, non-operative alternatives, expected recovery and outcomes were discussed with the patient. The possibilities of reaction to medication, pulmonary aspiration, injury to surrounding structures, bleeding, recurrent infection, the need for additional procedures, failure to diagnose a condition, and creating a complication requiring transfusion or operation were discussed with the patient. The patient concurred with the proposed plan, giving informed consent. The site of surgery was properly noted/marked if necessary per policy. The patient has been actively warmed in preoperative area. Preopera tive antibiotics are not indicated. Venous thrombosis prophylaxis are not indicated. Procedure Details: The patient was correctly identified in the preop area and the operative eye wasmarked with a marking pen. The operative eye was dilated in the preoperative area. The patient was then taken to the operating room where timeout was performed before starting the procedure. Combinedanesthesia with intravenous sedation and topical tetracaine eyedrops were given the left eye. The operative eye was prepped and draped in the standard sterile ophthalmic fashion in preparation for ophthalmic surgery. A Jerry wire speculum was then inserted between the eyelids of the left eye and the operating microscope was placed over the left eye. A paracentesis incision was made approximately 30 away from the planned surgical incision site with the help of MVR blade. 1% lidocaine MPF with Phenylephrine 1.5% PF was injected into the anterior chamber through the paracentesis incision. A near limbal clear corneal incision was fashioned in the temporal quadrant just outside the vascular arcade and Viscoat was injected into anterior chamber to firm the eye. A bent needle cystotome was used and Utrata forceps were utilized to create a continuous curvilinear capsulorrhexis. BSS was injected beneath the anterior capsule to hydrodissect the nucleus from adjacent cortex and capsule. The residual cortex were then aspirated with irrigation aspiration handpiece. The posterior capsule was then polished with the help of soft irrigation-aspiration tip. Provisc viscoelastic was then injected into the eye to reform the anterior chamber and to open the capsular bag. The intraocular lens implant was taken from its sterile wrapping, inspected under the surgical microscope and found to be ingood condition. The intraocular lens implant +20.0D was injected into the capsule bag. The Provisc w as then aspirated from the anterior chamber and from behind the intraocular lens implant. The anterior chamber was inflated with the help of BSS to moderate tension. The edges of the surgical incision were then hydrated with the help of BSS. Vigamox was then injected into the anterior chamber and into the capsule bag through the paracentesis incision. The surgical wound was then inspected and found to be watertight. The wire speculum and drapes were then removed. Pred Forte eyedrops, Acular eyedrops and Betadine 5% sterile ophthalmic solution were instilled in the conjunctival sac. The patient tolerated the procedure well and was taken to recovery room in stable condition. Complications: None; patient tolerated the procedure well. Disposition: Home Condition: stable Attending Attestation: I performed the procedure. Evan May [facility] Work Phone: 1(120) 822-339303-21-2024 Attending History and physical note* Evan May MD - 04/28/2023 7:09 AM EDT H&P reviewed. The patient was examined and there are no changes to the H&P. Source Note - Evan May MD - 04/28/2023 7:09 AM EDT Images from the original note were not included. 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 HPI: PAST MEDICAL HISTORY Diagnosis Date Asthma Bronchiectasis (HCC) COPD (chronic obstructive pulmonary disease) ([facility]) Dependence on supplemental oxygen Heterozygous alpha 1-antitrypsin deficiency ([facility]) PiMZ Lung nodule Pain in joint, ankle and foot S/P lung transplant ([facility]) PAST SURGICAL HISTORY Procedure Laterality Date LUNG TRANSPLANT,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 PAST SURGICAL HISTORY OF 02/07/2011 Rt foot reconstruction REMV CATARACT EXTRACAP,INSERT LENS RPR UMBILICAL HRNA 5 YRS/> REDUCIBLE 07/26/2012 Hernia repair, umbilical >5yr FAMILY HISTORY Problem Relation Age of Onset COPD Mother Heart disease Father Breast Cancer Sister No Known Problems Sister No Known Problems Sister COPD Brother COPD Brother SOCIAL HISTORY: Social History Tobacco Use Smoking status: Former Packs/day: 4.00 Years: 30.00 Additional pack years: 0.00 Total pack years: 120.00 Types: Cigarettes Quit date: 2010 Years since quittin.2 Smokeless tobacco: Never Vaping Use Vaping Use: Never used Substance Use Topics Alcohol use: Never Drug use: Never MEDICATIONS: Prior to Admission medications as of 04/25/23 7215 Medication Sig Last Dose Taking tacrolimus IR (PROGRAF) 1 mg capsule In combination with 5mg capsules 8mg in the AM and 7mg in the PM Taking Yes tacrolimus IR (PROGRAF) 5 mg capsule Take 1 capsule by mouth two times a day. In combination with 1mg capsules (Total dose is 8mg twice daily) Taking Yes furosemide (LASIX) 40 mg tablet Take 1 tablet by mouth once daily as needed. Taking Yes fluorometholone (FML LIQUID FILM) 0.1 % ophthalmic suspension Use 1 Drop in both eyes three times aday. Taking Yes predniSONE (DELTASONE) 5 mg tablet Take 1 tablet by mouth once daily. Taking Yes atorvastatin (LIPITOR) 10 mg tablet Take 1 tablet by mouth daily at bedtime. Taking Yes azithromycin (ZITHROMAX) 250 mg tablet Take 1 tablet by mouth every Tuesday, Tuesday, and Tuesday. Taking Yes pantoprazole DR (PROTONIX) 20 mg tablet Take 1 tablet by mouth daily at 6 am. Taking Yes oseltamivir (TAMIFLU) 75 mg capsule Take 1 capsule by mouth two times a day. Tamiflu emergency Rx. Take upon onset of influenza symptoms and get tested as soon as possible. Taking Yes sulfamethoxazole-trimethoprim (BACTRIM DS) 800-160 mg per tablet Take 1 tablet by mouth every Tuesday,Tuesday,Tuesday. Taking Yes valGANciclovir (VALCYTE) 450 mg tablet Take 2 tablets by mouth daily with breakfast. Taking Yes mycophenolate mofetil (CELLCEPT) 250 mg capsule Take 3 capsules by mouth twice daily. Taking Yes phosphorus (K PHOS NEUTRAL) 250 mg tablet Take 1 tablet by mouth twice daily. Taking Yes magnesium oxide (MAG-OX) 400 mg (241.3 mg magnesium) tablet Take 1 tablet by mouth twice daily. Taking Yes traMADol (ULTRAM) 50 mg tablet Take 1 tablet by mouth every 4 hours as needed for pain (for pain.).Taking Yes acetaminophen (TYLENOL) 325 mg tablet Take 2 tablets by mouth every 6 hours as needed for pain. Taking Yes camphor-methyl salicyl-menthol (SALONPAS) 3.1-10-6 % ptmd Use as needed for back pain, joint pain, and pain around clamshell incision. Apply 12 hours on and 12 hours off Taking Yes albuterol (PROVENTIL) 2.5 mg /3 mL (0.083 %) nebulizer solution Use 3 mL via nebulizer every Tuesday,Tuesday,Tuesday. Taking Yes ondansetron (ZOFRAN) 4 mg tablet Take 1 tablet by mouth every 8 hours as needed for nausea/vomiting. Taking Yes lidocaine (LMX) 4 % cream Apply to affected area as needed (pain around incision site). Patient taking differently: Apply 1 application to affected area as needed (pain around incision site). Medication Comments documented by Madisyn Hager MA on 02/25/2022 at 0959. Pt states medication is still the same as listed on his medication list. CURRENT ALLERGIES: ALLERGIES Allergen Reactions Nsaids (Non-Steroid* Contraindication-Medical Surgical Patient states he is not allergic to Nsaids- caused upset stomach Penicillins GI Upset Patient states he is not allergic to penicillin- caused upset stomach REVIEW OF SYSTEMS: PAIN ASSESSMENT: General: No weight loss, malaise or fevers. Neuro: No Hx of stroke or seizures Respiratory: History of double lung transplant Cardiovascular: Positive for: None GI: No history of GI symptoms or problems. No history of esophageal varices, recent ascites, or ETOH greater than 2 drinks per day. : No history of UTI in past 6 weeks. No history of renal failure. Not currently on or requiring dialysis. No history of symptoms or problems. 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 Has not taken steroids within the past 30 days. No history of endocrinological symptoms or problems. Hematology: No history of bleeding or clotting disorder. Pt is not taking anti- coagulation or platelet medications. No history of hematological symptoms or problems. Oncology: No history of CA metastasis, chemo within 30 days, or radiotherapy within 90 days. Has not lost 10% of body wt in 6 months. No history of oncological symptoms or problems. Psych: No history of psychiatric symptoms or problems. Musculoskeletal: Negative for joint pain or swelling, back pain or muscle pain. Skin: Negative for lesions, rash and itching. PHYSICAL EXAM: VITALS: BP 121/74 Pulse 88 General: Alert and oriented Skin: Normal color, no rash, no lesions. HEENT: EOM, pupils equal, round and reactive. Cardiovascular: Normal S1 & S2, no rubs, murmurs or gallops. No JVD. Pulse regular. Lungs: Normal breath sounds, no wheezes or crackles. Abdomen: Soft, non-tender, no rigidity. Extremities: No deformity, no edema or tenderness, no joint swelling or clubbing. Neurological: Normal cognition and motor skills. Pulses: Carotid and radial pulses normal +2. Diagnostic tests reviewed for today's visit: No new labs or tests ASSESSMENT Medication and Non-Pharmacologic VTE Prophylaxis/Anticoagulants VTE Prophylaxis: VTE prophylaxis appropriate Impression: There is no known pertinent medical condition which may affect gio- operative course Clinical Risk Factors for Possible Cardiac Complications: None Patient is scheduled for a low-risk procedure. FUNCTIONAL STATUS: Do yardwork, such as raking leaves, weeding,or pushing a power mower (4.50 METs) Functional Class (NYHA): N/A [employer]: Not obtained PLAN CONSULTS: Patient does not require consults for optimization at this time. The Following Tests/Procedures Have Been Initiated: None Instructions Given to Patient: Patient given verbal and written preop instructions and voices comprehension and compliance. SIGNATURE: Evan May MD PATIENT NAME: Belgica Angelo DATE: April 25, 2023 TIME: 3:59 PM PAGER/CONTACT #: Source Comments - [facility] In the event this information is protected by the Federal Confidentiality of Alcohol and Drug AbusePatient Records regulations: The Federal rules restrict any use of the information to criminally investigate or prosecute any alcohol or drug abuse patient. 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 Never 04/10/2020 Average Number of Drinks Not on file 04/10/2020 Frequency of Binge Drinking Not on file 04/10/2020 Social History Overall Financial Resource Strain (CARDIA) Answer Date Recorded How hard is it for you to pay for the very basics like food, housing, medical care, and heating? Not hard at all 07/20/2022 Social History Hunger Vital Sign Answer Date Recorded Within the past 12 months, you worried that your food would run out before you got the money to buymore. Never true 07/20/2022 Within the past 12 months, the food you bought just didn't last and you didn't have money to get more. Never true 07/20/2022 Social History PRAPARE - Transportation Answer Date Recorded In the past 12 months, has lack of transportation kept you from medical appointments or from getting medications? No 07/20/2022 In the past 12 months, has lack of transportation kept you from meetings, work, or from getting things needed for daily living? No 07/20/2022 Social History Housing Stability Vital Sign Answer Date Recorded In the last 12 months, was there a time when you were not able to pay the mortgage or rent on time?No 07/20/2022 Number of Places Lived in the Last Year Not on file 07/20/2022 In the last 12 months, was there a time when you did not have a steady place to sleep or slept in ashelter (including now)? No 07/20/2022 Social History Area Deprivation Index Answer Date Recorded National Score (1-100), lower number is lower risk 72 08/08/2022 State Score (1-10), lower number is lower risk 5 08/08/2022 Data from: https://www.neighborhoodatlas.[place].[facility].edu/. Last address used for calculation [address] 08/08/2022 Social History Sex and Gender Information Value Date Recorded Sex Assigned at Male 01/26/2021 9:33 AM EST Gender Identity Male 01/26/2021 9:33 AM EST Sexual Orientation Not on file Last Filed Vital Signs - documented in this encounter Last Filed Vital Signs Vital Sign Reading Time Taken Comments Blood Pressure 121/74 04/25/2023 3:50 PM EDT Pulse 88 04/25/2023 3:50 PM EDT Temperature - - Respiratory Rate - - Oxygen Saturation - - Inhaled Oxygen Concentration - - Weight - - Height - - Body Mass Index - - Functional Status - documented as of this encounter Functional Status Functional Status Response Date of Assessment Are you deaf or do you have serious difficulty hearing? No 02/23/2022 Are you blind or do you have serious difficulty seeing, even when wearing glasses? No 02/23/2022 Do you have serious difficulty walking or climbing stairs? No 02/23/2022 Do you have difficulty dressing or bathing? No 02/23/2022 Because of a physical, mental, or emotional condition, do you have difficulty doing errands alone such as visiting a doctor's office or shopping? No 02/23/2022 Functional Status Cognitive Status Response Date of Assessment Because of a physical, mental, or emotional condition, do you have serious difficulty concentrating, remembering, or making decisions? No 02/23/2022 Patient Instructions - documented in this encounter Patient Instructions Evan May MD - 04/25/2023 3:58 PM EDT Plan Cataract Surgery with Monofocal Intraocular Lens Implant Right Eye on 04/28/2023 at [facility]. Current Ophthalmic Meds fluorometholone (FML LIQUID FILM) 0.1 % ophthalmic suspension Use 1 Drop in both eyes three times aday. Continue: Systane Complete solution instill 1 drop 3 times daily Both Eyes. If you have any questions please contact our office at [phone]. After office hours or on the weekend, please call Dr. May on his cell phone at [phone]. Progress Notes - documented in this encounter Evan May MD - 04/25/2023 3:55 PM EDT ASSESSMENT/PLAN: 1. 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 Belgica nAgelo has confirmed that he is no longer able to function adequately on a day-to-day basisbecause of his current visual condition. Further, it is my medical opinion that the cataract is the primary cause, or at least a significantly contributory cause of his visual dysfunction. With uncomplicated cataract surgery and lens implantation, it is my expectation that his visual function and quality of life will improve, significantly. The risks, benefits, alternatives, personnel and complications of cataract surgery with lens implantation were discussed with Belgica Angelo in detail. He appeared to understand and asked that I proceed with plans for surgery. Upon eye examination, patient was found to have a visually significant cataract Right Eye. Discussed cataract surgery with patient and different intraocular lens implant options with patient: basic monofocal intraocular lens implant, Toric intraocular lens implant, and presbyopia correction intraocular lens implant. In my medical opinion, based on medical history and ocular examination, cataract surgery with intraocular lens implant will correct patient's vision and improve quality of patient'sdaily living activities. Patient wishes to have traditional cataract surgery with basic intraocularlens Right Eye. Patient wishes to have cataract surgery with the option stated above. Patient unders tands that an intraocular lens implant does not necessarily replace the need for glasses. Patient understands that it is impossible for the surgeon to inform him/her of every possible complication that may occur. The surgeon has answered all of the patient's questions. Patient understands that if he/she has a mature or dense cataract, pseudoexfoliation cataract, or history of use of Flomax, he/she may require the use of Maluyugin Ring and/or Vision Blue during surgery. Patient understands the risks, benefits, and alternatives to surgery. Plan Cataract Surgery with Monofocal Intraocular Lens Implant Right Eye on 04/28/2023 at [facility]. Current Ophthalmic Meds fluorometholone (FML LIQUID FILM) 0.1 % ophthalmic suspension Use 1 Drop in both eyes three times aday. Continue: Systane Complete solution instill 1 drop 3 times daily Both Eyes. PHYSICAL EXAM: Vital Signs: Blood pressure 121/74, pulse 88. Respiratory: Normal breath sounds, no wheezing. CARD: Normal heart sounds 1 & 2, normal sinus rhythm. 2. Combined forms of age-related cataract of left eye - ICD9: 366.19, ICD10: H25.812 - [facility] ONLY - DIAGNOSTIC OU (BOTH EYES) Plan Cataract Surgery with Monofocal Intraocular Lens Implant Left Eye when Right Eye is stable. 3. 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 4. Hypercholesteremia - ICD9: 272.0, ICD10: E78.00 Continue to monitor with primary care physician. I have confirmed and edited as necessary the relevant HPI, ophthalmic history, ROS, and the neuro exam findings as obtained by others. I have seen and examined Belgica Angelo. I have discussed the case and the management of this patient's care with the Resident/Fellow, if applicable. I also have reviewed and agree with the assessment and plan as stated above and agree with all of its relevant components. Plan of Treatment - documented as of this encounter Plan of Treatment - Upcoming Encounters Upcoming Encounters Date Type Department Care Team (Latest Contact Info) Description 04/28/2023 9:40 AM EDT Hospital Encounter Evan May MD [address] [place] [address] 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-related cataract, right eye [H25.811] 04/28/2023 9:40 AM EDT - 04/28/2023 9:[address] [facility] [address] [place] [address] Evan Mya MD [address] [place] [address] SURGERY AT NON-THE [facility] 04/29/2023 11:15 AM EDT Office Visit [facility] Ophthalmology [address] [place] [address] Evan May MD [address] [place] [address] 1 day po 1st re basic 07/07/2023 4:20 PM EDT Office Visit Family Medicine [address] [address] Keshav Phillips APRN.[facility] [address] [place] [address] est care 07/21/2023 7:15 AM EDT Office Visit [place] [id number] [facility] [place] [address] [place], [place] [id number] Post lung Txp 07/21/2023 7:55 AM EDT Appointment Radiology [address] [address] Post lung Txp/ FU 07/21/2023 8:30 AM EDT Procedure Pulmonary Medicine [address] [address] 1, Pulm Fct Lab Main [address] [place] [address] Post lung Txp/ FU 07/21/2023 9:00 AM EDT Office Visit Pulmonary Medicine [address] [address] Viviane Curtis MD [address] [place], [place] [id number] Post lung Txp/ FU 07/21/2023 12:30 PM EDT Hospital Encounter Admitting [address] [address] Nick Mccoy MD [address] [place], [place] [id number] 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) [Z94.2] 07/21/2023 12:30 PM EDT - 07/21/2023 1:30 PM EDT Surgery Admitting [address] [address] Nick Mccoy MD [address] [place] [address] BRONCHOSCOPY FLEXIBLE ADULT 09/15/2023 12:45 PM EDT Office Visit Pulmonary Medicine [address] [place], [place] [phone] Shukri Juárez MD [address] [place] [address] 6 month follow up Plan of Treatment - Scheduled Procedures Scheduled Procedures Name Priority Associated Diagnoses Date/Time SURGERY AT NON-THE [facility] 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-related cataract, right eye 04/28/2023 9:40 AM EDT BRONCHOSCOPY FLEXIBLE ADULT 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) 07/21/2023 12:30 PM EDT Procedures - documented in this encounter Procedures Procedure Name Priority Date/Time Associated Diagnosis Comments [facility] ONLY - DIAGNOSTIC OU (BOTH EYES) Routine 04/25/2023 4:11 PM EDT Combined forms of age-relatedcataract of right eye Combined forms of age-related cataract of left eye Imaging Results - documented in this encounter [facility] ONLY - DIAGNOSTIC OU (BOTH EYES) (04/25/2023 4:11 PM EDT) Imaging Results - [facility] ONLY - DIAGNOSTIC OU (BOTH EYES) (04/25/2023 4:11 PM EDT) Anatomical Region Laterality Modality Other Imaging Results - [facility] ONLY - DIAGNOSTIC OU (BOTH EYES) (04/25/2023 4:11 PM EDT) Narrative 04/25/2023 4:11 PM EDT Date of Procedure 04/25/2023. 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 If blood glucose is less than 70 mg/dL implement hypoglycemia treatment orders and notify provider. If Blood Glucose (mg/dL) is <110 Give 0 units 111-150 Give 0 units 151-200 Give 2 unit 201-250 Give 4 units 251-300 Give 6 units 301-350 Give 8 units 351-400 Give 10 units >400 Give 10 units and notify physician Notify provider if 2 consecutive blood glucose values in the previous 24 hours are greater than 250mg/mL and there have been no changes to the insulin regimen in the previous 24 hours. Discontinued by another Health Care Provider 08/03/2022 04/25/2023 Eye Exam Eye Exam - Visual Acuity Visual Acuity Right eye Left eye Dist cc 20/80 20/80 Near cc J10 J10 Eye Exam - Pupils Pupils Pupils Dark Light Shape APD Right eye PERRL 5 3 Round None Left eye PERRL 5 3 Round None Eye Exam - Visual Jacques (Counting fingers) Visual Jacques (Counting fingers) Right eye Left eye Full Full Eye Exam - Extraocular Movement Extraocular Movement Right eye Left eye Full Full Eye Exam - Neuro/Psych Neuro/Psych Oriented x3: Yes Mood/Affect: Normal LENSTAR (2) Right eye: AL 24.91 ACD 3.09 WTW 13.03 Left eye: AL 24.91 ACD 3.17 WTW 12.99 Eye Exam - External Exam External Exam Right eye Left eye External Normal including orbits and preauricular lymph nodes Normal including orbits and preauricular lymph nodes Eye Exam - Slit Lamp Exam Slit Lamp Exam Right eye Left eye Lids/Lashes Meibomian gland dysfunction Meibomian gland dysfunction Conjunctiva/Sclera White and quiet White and quiet Cornea 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 Anterior Chamber Deep and quiet Deep and quiet Iris Round and reactive Round and reactive Lens 3+ Nuclear sclerotic cataract, 3+ Posterior subcapsular cataract 3+ Nuclear sclerotic cataract, 3+ Posterior subcapsular cataract Anterior Vitreous Normal Normal Eye Exam - Fundus Exam Fundus Exam Right eye Left eye Disc Normal Normal C/D Ratio 0.25 0.25 Macula Normal Normal Vessels Normal Normal Periphery Normal Normal Care Teams - documented as of this encounter 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 Specialty Start Date End Date Aisha Newton MD [address] [place] [address] PCP - General Family Medicine 01/13/21 Markos Burgos MD [address] [place] [address] Primary Staff Physician Cardiology 02/22/22 Regina Decker, ANA LAURA.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 MANAGER [address] [place] [address] Referring Transplant Center 08/05/22 Regina Decker APRN.CNP [address] [place] [address] Home Care Provider Transplant Center 08/05/22 [facility] Work Phone: [phone]) 665-600903-21-2024 History and physical note* Evan May MD - 04/28/2023 7:09 AM EDT Images from the original note were not included. 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 HPI: PAST MEDICAL HISTORY Diagnosis Date Asthma Bronchiectasis (HCC) COPD (chronic obstructive pulmonary disease) (HCC) Dependence on supplemental oxygen Heterozygous alpha 1-antitrypsin deficiency (HCC) PiMZ Lung nodule Pain in joint, ankle and foot S/P lung transplant (HCC) PAST SURGICAL HISTORY Procedure Laterality Date LUNG TRANSPLANT,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 PAST SURGICAL HISTORY OF 02/07/2011 Rt foot reconstruction REMV CATARACT EXTRACAP,INSERT LENS RPR UMBILICAL HRNA 5 YRS/> REDUCIBLE 07/26/2012 Hernia repair, umbilical >5yr FAMILY HISTORY Problem Relation Age of Onset COPD Mother Heart disease Father Breast Cancer Sister No Known Problems Sister No Known Problems Sister COPD Brother COPD Brother SOCIAL HISTORY: Social History Tobacco Use Smoking status: Former Packs/day: 4.00 Years: 30.00 Additional pack years: 0.00 Total pack years: 120.00 Types: Cigarettes Quit date: 2010 Years since quittin.2 Smokeless tobacco: Never Vaping Use Vaping Use: Never used Substance Use Topics Alcohol use: Never Drug use: Never MEDICATIONS: Prior to Admission medications as of 04/25/23 1555 Medication Sig Last Dose Taking tacrolimus IR (PROGRAF) 1 mg capsule In combination with 5mg capsules 8mg in the AM and 7mg in the PM Taking Yes tacrolimus IR (PROGRAF) 5 mg capsule Take 1 capsule by mouth two times a day. In combination with 1mg capsules (Total dose is 8mg twice daily) Taking Yes furosemide (LASIX) 40 mg tablet Take 1 tablet by mouth once daily as needed. Taking Yes fluorometholone (FML LIQUID FILM) 0.1 % ophthalmic suspension Use 1 Drop in both eyes three times aday. Taking Yes predniSONE (DELTASONE) 5 mg tablet Take 1 tablet by mouth once daily. Taking Yes atorvastatin (LIPITOR) 10 mg tablet Take 1 tablet by mouth daily at bedtime. Taking Yes azithromycin (ZITHROMAX) 250 mg tablet Take 1 tablet by mouth every Tuesday, Tuesday, and Tuesday. Taking Yes pantoprazole DR (PROTONIX) 20 mg tablet Take 1 tablet by mouth daily at 6 am. Taking Yes oseltamivir (TAMIFLU) 75 mg capsule Take 1 capsule by mouth two times a day. Tamiflu emergency Rx. Take upon onset of influenza symptoms and get tested as soon as possible. Taking Yes sulfamethoxazole-trimethoprim (BACTRIM DS) 800-160 mg per tablet Take 1 tablet by mouth every Tuesday,Tuesday,Tuesday. Taking Yes valGANciclovir (VALCYTE) 450 mg tablet Take 2 tablets by mouth daily with breakfast. Taking Yes mycophenolate mofetil (CELLCEPT) 250 mg capsule Take 3 capsules by mouth twice daily. Taking Yes phosphorus (K PHOS NEUTRAL) 250 mg tablet Take 1 tablet by mouth twice daily. Taking Yes magnesium oxide (MAG-OX) 400 mg (241.3 mg magnesium) tablet Take 1 tablet by mouth twice daily. Taking Yes traMADol (ULTRAM) 50 mg tablet Take 1 tablet by mouth every 4 hours as needed for pain (for pain.).Taking Yes acetaminophen (TYLENOL) 325 mg tablet Take 2 tablets by mouth every 6 hours as needed for pain. Taking Yes camphor-methyl salicyl-menthol (SALONPAS) 3.1-10-6 % ptmd Use as needed for back pain, joint pain, and pain around clamshell incision. Apply 12 hours on and 12 hours off Taking Yes albuterol (PROVENTIL) 2.5 mg /3 mL (0.083 %) nebulizer solution Use 3 mL via nebulizer every Tuesday,Tuesday,Tuesday. Taking Yes ondansetron (ZOFRAN) 4 mg tablet Take 1 tablet by mouth every 8 hours as needed for nausea/vomiting. Taking Yes lidocaine (LMX) 4 % cream Apply to affected area as needed (pain around incision site). Patient taking differently: Apply 1 application to affected area as needed (pain around incision site). Medication Comments documented by Madisyn Hager MA on 02/25/2022 at 0959. Pt states medication is still the same as listed on his medication list. CURRENT ALLERGIES: ALLERGIES Allergen Reactions Nsaids (Non-Steroid* Contraindication-Medical Surgical Patient states he is not allergic to Nsaids- caused upset stomach Penicillins GI Upset Patient states he is not allergic to penicillin- caused upset stomach REVIEW OF SYSTEMS: PAIN ASSESSMENT: General: No weight loss, malaise or fevers. Neuro: No Hx of stroke or seizures Respiratory: History of double lung transplant Cardiovascular: Positive for: None GI: No history of GI symptoms or problems. No history of esophageal varices, recent ascites, or ETOH greater than 2 drinks per day. : No history of UTI in past 6 weeks. No history of renal failure. Not currently on or requiring dialysis. No history of symptoms or problems. 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 Has not taken steroids within the past 30 days. No history of endocrinological symptoms or problems. Hematology: No history of bleeding or clotting disorder. Pt is not taking anti- coagulation or platelet medications. No history of hematological symptoms or problems. Oncology: No history of CA metastasis, chemo within 30 days, or radiotherapy within 90 days. Has not lost 10% of body wt in 6 months. No history of oncological symptoms or problems. Psych: No history of psychiatric symptoms or problems. Musculoskeletal: Negative for joint pain or swelling, back pain or muscle pain. Skin: Negative for lesions, rash and itching. PHYSICAL EXAM: VITALS: BP 121/74 Pulse 88 General: Alert and oriented Skin: Normal color, no rash, no lesions. HEENT: EOM, pupils equal, round and reactive. Cardiovascular: Normal S1 & S2, no rubs, murmurs or gallops. No JVD. Pulse regular. Lungs: Normal breath sounds, no wheezes or crackles. Abdomen: Soft, non-tender, no rigidity. Extremities: No deformity, no edema or tenderness, no joint swelling or clubbing. Neurological: Normal cognition and motor skills. Pulses: Carotid and radial pulses normal +2. Diagnostic tests reviewed for today's visit: No new labs or tests ASSESSMENT Medication and Non-Pharmacologic VTE Prophylaxis/Anticoagulants VTE Prophylaxis: VTE prophylaxis appropriate Impression: There is no known pertinent medical condition which may affect gio- operative course Clinical Risk Factors for Possible Cardiac Complications: None Patient is scheduled for a low-risk procedure. FUNCTIONAL STATUS: Do yardwork, such as raking leaves, weeding,or pushing a power mower (4.50 METs) Functional Class (NYHA): N/A [facility]: Not obtained PLAN CONSULTS: Patient does not require consults for optimization at this time. The Following Tests/Procedures Have Been Initiated: None Instructions Given to Patient: Patient given verbal and written preop instructions and voices comprehension and compliance. SIGNATURE: Evan May MD PATIENT NAME: Belgica Angelo DATE: April 25, 2023 TIME: 3:59 PM PAGER/CONTACT #: Source Comments - [facility] In the event this information is protected by the Federal Confidentiality of Alcohol and Drug AbusePatient Records regulations: The Federal rules restrict any use of the information to criminally investigate or prosecute any alcohol or drug abuse patient. 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 Never 04/10/2020 Average Number of Drinks Not on file 04/10/2020 Frequency of Binge Drinking Not on file 04/10/2020 Social History Overall Financial Resource Strain (CARDIA) Answer Date Recorded How hard is it for you to pay for the very basics like food, housing, medical care, and heating? Not hard at all 07/20/2022 Social History Hunger Vital Sign Answer Date Recorded Within the past 12 months, you worried that your food would run out before you got the money to buymore. Never true 07/20/2022 Within the past 12 months, the food you bought just didn't last and you didn't have money to get more. Never true 07/20/2022 Social History PRAPARE - Transportation Answer Date Recorded In the past 12 months, has lack of transportation kept you from medical appointments or from getting medications? No 07/20/2022 In the past 12 months, has lack of transportation kept you from meetings, work, or from getting things needed for daily living? No 07/20/2022 Social History Housing Stability Vital Sign Answer Date Recorded In the last 12 months, was there a time when you were not able to pay the mortgage or rent on time?No 07/20/2022 Number of Places Lived in the Last Year Not on file 07/20/2022 In the last 12 months, was there a time when you did not have a steady place to sleep or slept in ashelter (including now)? No 07/20/2022 Social History Area Deprivation Index Answer Date Recorded National Score (1-100), lower number is lower risk 72 08/08/2022 State Score (1-10), lower number is lower risk 5 08/08/2022 Data from: https://www.neighborhoodatlas.medicine.[facility].edu/. Last address used for calculation [address] 08/08/2022 Social History Sex and Gender Information Value Date Recorded Sex Assigned at Male 01/26/2021 9:33 AM EST Gender Identity Male 01/26/2021 9:33 AM EST Sexual Orientation Not on file Last Filed Vital Signs - documented in this encounter Last Filed Vital Signs Vital Sign Reading Time Taken Comments Blood Pressure 121/74 04/25/2023 3:50 PM EDT Pulse 88 04/25/2023 3:50 PM EDT Temperature - - Respiratory Rate - - Oxygen Saturation - - Inhaled Oxygen Concentration - - Weight - - Height - - Body Mass Index - - Functional Status - documented as of this encounter Functional Status Functional Status Response Date of Assessment Are you deaf or do you have serious difficulty hearing? No 02/23/2022 Are you blind or do you have serious difficulty seeing, even when wearing glasses? No 02/23/2022 Do you have serious difficulty walking or climbing stairs? No 02/23/2022 Do you have difficulty dressing or bathing? No 02/23/2022 Because of a physical, mental, or emotional condition, do you have difficulty doing errands alone such as visiting a doctor's office or shopping? No 02/23/2022 Functional Status Cognitive Status Response Date of Assessment Because of a physical, mental, or emotional condition, do you have serious difficulty concentrating, remembering, or making decisions? No 02/23/2022 Patient Instructions - documented in this encounter Patient Instructions Evan May MD - 04/25/2023 3:58 PM EDT Plan Cataract Surgery with Monofocal Intraocular Lens Implant Right Eye on 04/28/2023 at [facility]. Current Ophthalmic Meds fluorometholone (FML LIQUID FILM) 0.1 % ophthalmic suspension Use 1 Drop in both eyes three times aday. Continue: Systane Complete solution instill 1 drop 3 times daily Both Eyes. If you have any questions please contact our office at [phone]. After office hours or on the weekend, please call Dr. May on his cell phone at [phone]. Progress Notes - documented in this encounter Evan May MD - 04/25/2023 3:55 PM EDT ASSESSMENT/PLAN: 1. 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 Belgica Angelo has confirmed that he is no longer able to function adequately on a day-to-day basisbecause of his current visual condition. Further, it is my medical opinion that the cataract is the primary cause, or at least a significantly contributory cause of his visual dysfunction. With uncomplicated cataract surgery and lens implantation, it is my expectation that his visual function and quality of life will improve, significantly. The risks, benefits, alternatives, personnel and complications of cataract surgery with lens implantation were discussed with Belgica Angelo in detail. He appeared to understand and asked that I proceed with plans for surgery. Upon eye examination, patient was found to have a visually significant cataract Right Eye. Discussed cataract surgery with patient and different intraocular lens implant options with patient: basic monofocal intraocular lens implant, Toric intraocular lens implant, and presbyopia correction intraocular lens implant. In my medical opinion, based on medical history and ocular examination, cataract surgery with intraocular lens implant will correct patient's vision and improve quality of patient'sdaily living activities. Patient wishes to have traditional cataract surgery with basic intraocularlens Right Eye. Patient wishes to have cataract surgery with the option stated above. Patient unders tands that an intraocular lens implant does not necessarily replace the need for glasses. Patient understands that it is impossible for the surgeon to inform him/her of every possible complication that may occur. The surgeon has answered all of the patient's questions. Patient understands that if he/she has a mature or dense cataract, pseudoexfoliation cataract, or history of use of Flomax, he/she may require the use of Maluyugin Ring and/or Vision Blue during surgery. Patient understands the risks, benefits, and alternatives to surgery. Plan Cataract Surgery with Monofocal Intraocular Lens Implant Right Eye on 04/28/2023 at [facility]. Current Ophthalmic Meds fluorometholone (FML LIQUID FILM) 0.1 % ophthalmic suspension Use 1 Drop in both eyes three times aday. Continue: Systane Complete solution instill 1 drop 3 times daily Both Eyes. PHYSICAL EXAM: Vital Signs: Blood pressure 121/74, pulse 88. Respiratory: Normal breath sounds, no wheezing. CARD: Normal heart sounds 1 & 2, normal sinus rhythm. 2. Combined forms of age-related cataract of left eye - ICD9: 366.19, ICD10: H25.812 - [facility] ONLY - DIAGNOSTIC OU (BOTH EYES) Plan Cataract Surgery with Monofocal Intraocular Lens Implant Left Eye when Right Eye is stable. 3. 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 4. Hypercholesteremia - ICD9: 272.0, ICD10: E78.00 Continue to monitor with primary care physician. I have confirmed and edited as necessary the relevant HPI, ophthalmic history, ROS, and the neuro exam findings as obtained by others. I have seen and examined Belgica Angelo. I have discussed the case and the management of this patient's care with the Resident/Fellow, if applicable. I also have reviewed and agree with the assessment and plan as stated above and agree with all of its relevant components. Plan of Treatment - documented as of this encounter Plan of Treatment - Upcoming Encounters Upcoming Encounters Date Type Department Care Team (Latest Contact Info) Description 04/28/2023 9:40 AM EDT Hospital Encounter Evan May MD [address] [place] [address] 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-related cataract, right eye [H25.811] 04/28/2023 9:40 AM EDT - 04/28/2023 9:55 AM EDT Surgery [address] [address] Evan May MD [address] [place] [address] SURGERY AT NON-THE [facility] 04/29/2023 11:15 AM EDT Office Visit OPHT Ophthalmology [address] [place] [id number] Evan May MD [address] [place] [address] 1 day po 1st re basic 07/07/2023 4:20 PM EDT Office Visit Family Medicine [address] [phone] Keshav Phillips APRN.[facility] [address] [place] [address] est care 07/21/2023 7:15 AM EDT Office Visit [place] [id number] Draw Station [address] [address] Post lung Txp 07/21/2023 7:55 AM EDT Appointment Radiology [address] [address] Post lung Txp/ FU 07/21/2023 8:30 AM EDT Procedure Pulmonary Medicine [address] [address] 1, Pulm Fct Lab Main [address] [place] [address] Post lung Txp/ FU 07/21/2023 9:00 AM EDT Office Visit Pulmonary Medicine [address] [address] Viviane Curtis MD [address] [place] [address] Post lung Txp/ FU 07/21/2023 12:30 PM EDT Hospital Encounter Admitting [address] [address] Nick Mccoy MD [address] [place] [address] Lung replaced by transplant ([facility]) [Z94.2] 07/21/2023 12:30 PM EDT - 07/21/2023 1:30 PM EDT Surgery Admitting [address] [place] [phone] Nick Mccoy MD [address] [place] [address] BRONCHOSCOPY FLEXIBLE ADULT 09/15/2023 12:45 PM EDT Office Visit Pulmonary Medicine [address] [place], [place] [address] Shukri Juárez MD [address] [facility] [place], [place] [phone] 6 month follow up Plan of Treatment - Scheduled Procedures Scheduled Procedures Name Priority Associated Diagnoses Date/Time SURGERY AT NON-[facility] 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-related cataract, right eye 04/28/2023 9:40 AM EDT BRONCHOSCOPY FLEXIBLE ADULT 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) 07/21/2023 12:30 PM EDT Procedures - documented in this encounter Procedures Procedure Name Priority Date/Time Associated Diagnosis Comments [facility] ONLY - DIAGNOSTIC OU (BOTH EYES) Routine 04/25/2023 4:11 PM EDT Combined forms of age-relatedcataract of right eye Combined forms of age-related cataract of left eye Imaging Results - documented in this encounter [facility] ONLY - DIAGNOSTIC OU (BOTH EYES) (04/25/2023 4:11 PM EDT) Imaging Results - [facility] ONLY - DIAGNOSTIC OU (BOTH EYES) (04/25/2023 4:11 PM EDT) Anatomical Region Laterality Modality Other Imaging Results - [facility] ONLY - DIAGNOSTIC OU (BOTH EYES) (04/25/2023 4:11 PM EDT) Narrative 04/25/2023 4:11 PM EDT Date of Procedure 04/25/2023. 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 If blood glucose is less than 70 mg/dL implement hypoglycemia treatment orders and notify provider. If Blood Glucose (mg/dL) is <110 Give 0 units 111-150 Give 0 units 151-200 Give 2 unit 201-250 Give 4 units 251-300 Give 6 units 301-350 Give 8 units 351-400 Give 10 units >400 Give 10 units and notify physician Notify provider if 2 consecutive blood glucose values in the previous 24 hours are greater than 250mg/mL and there have been no changes to the insulin regimen in the previous 24 hours. Discontinued by another Health Care Provider 08/03/2022 04/25/2023 Eye Exam Eye Exam - Visual Acuity Visual Acuity Right eye Left eye Dist cc 20/80 20/80 Near cc J10 J10 Eye Exam - Pupils Pupils Pupils Dark Light Shape APD Right eye PERRL 5 3 Round None Left eye PERRL 5 3 Round None Eye Exam - Visual Jacques (Counting fingers) Visual Jacques (Counting fingers) Right eye Left eye Full Full Eye Exam - Extraocular Movement Extraocular Movement Right eye Left eye Full Full Eye Exam - Neuro/Psych Neuro/Psych Oriented x3: Yes Mood/Affect: Normal LENSTAR (2) Right eye: AL 24.91 ACD 3.09 WTW 13.03 Left eye: AL 24.91 ACD 3.17 WTW 12.99 Eye Exam - External Exam External Exam Right eye Left eye External Normal including orbits and preauricular lymph nodes Normal including orbits and preauricular lymph nodes Eye Exam - Slit Lamp Exam Slit Lamp Exam Right eye Left eye Lids/Lashes Meibomian gland dysfunction Meibomian gland dysfunction Conjunctiva/Sclera White and quiet White and quiet Cornea 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 Anterior Chamber Deep and quiet Deep and quiet Iris Round and reactive Round and reactive Lens 3+ Nuclear sclerotic cataract, 3+ Posterior subcapsular cataract 3+ Nuclear sclerotic cataract, 3+ Posterior subcapsular cataract Anterior Vitreous Normal Normal Eye Exam - Fundus Exam Fundus Exam Right eye Left eye Disc Normal Normal C/D Ratio 0.25 0.25 Macula Normal Normal Vessels Normal Normal Periphery Normal Normal Care Teams - documented as of this encounter 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 Specialty Start Date End Date Aisha Newton MD [address] [place] [address] PCP - General Family Medicine 01/13/21 Markos Burgos MD [address] [place] [address] Primary Staff Physician Cardiology 02/22/22 Regina Decker APRN.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 MANAGER [address] [facility] [place] [place] [address] Referring Transplant Center 08/05/22 Regina Decker APRN.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 MANAGER [address] [facility] [place] [address] Home Care Provider Transplant Center 08/05/22 [facility] Work Phone: [phone]) 842-371603-21-2024 History and physical note* Evan May MD - 04/28/2023 7:09 AM EDT H&P reviewed. The patient was examined and there are no changes to the H&P. Source Note - Evan May MD - 04/28/2023 7:09 AM EDT Images from the original note were not included. 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 HPI: PAST MEDICAL HISTORY Diagnosis Date Asthma Bronchiectasis (HCC) COPD (chronic obstructive pulmonary disease) (HCC) Dependence on supplemental oxygen Heterozygous alpha 1-antitrypsin deficiency (HCC) PiMZ Lung nodule Pain in joint, ankle and foot S/P lung transplant (HCC) PAST SURGICAL HISTORY Procedure Laterality Date LUNG TRANSPLANT,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 PAST SURGICAL HISTORY OF 02/07/2011 Rt foot reconstruction REMV CATARACT EXTRACAP,INSERT LENS RPR UMBILICAL HRNA 5 YRS/> REDUCIBLE 07/26/2012 Hernia repair, umbilical >5yr FAMILY HISTORY Problem Relation Age of Onset COPD Mother Heart disease Father Breast Cancer Sister No Known Problems Sister No Known Problems Sister COPD Brother COPD Brother SOCIAL HISTORY: Social History Tobacco Use Smoking status: Former Packs/day: 4.00 Years: 30.00 Additional pack years: 0.00 Total pack years: 120.00 Types: Cigarettes Quit date: 2010 Years since quittin.2 Smokeless tobacco: Never Vaping Use Vaping Use: Never used Substance Use Topics Alcohol use: Never Drug use: Never MEDICATIONS: Prior to Admission medications as of 04/25/23 1555 Medication Sig Last Dose Taking tacrolimus IR (PROGRAF) 1 mg capsule In combination with 5mg capsules 8mg in the AM and 7mg in the PM Taking Yes tacrolimus IR (PROGRAF) 5 mg capsule Take 1 capsule by mouth two times a day. In combination with 1mg capsules (Total dose is 8mg twice daily) Taking Yes furosemide (LASIX) 40 mg tablet Take 1 tablet by mouth once daily as needed. Taking Yes fluorometholone (FML LIQUID FILM) 0.1 % ophthalmic suspension Use 1 Drop in both eyes three times aday. Taking Yes predniSONE (DELTASONE) 5 mg tablet Take 1 tablet by mouth once daily. Taking Yes atorvastatin (LIPITOR) 10 mg tablet Take 1 tablet by mouth daily at bedtime. Taking Yes azithromycin (ZITHROMAX) 250 mg tablet Take 1 tablet by mouth every Tuesday, Tuesday, and Tuesday. Taking Yes pantoprazole DR (PROTONIX) 20 mg tablet Take 1 tablet by mouth daily at 6 am. Taking Yes oseltamivir (TAMIFLU) 75 mg capsule Take 1 capsule by mouth two times a day. Tamiflu emergency Rx. Take upon onset of influenza symptoms and get tested as soon as possible. Taking Yes sulfamethoxazole-trimethoprim (BACTRIM DS) 800-160 mg per tablet Take 1 tablet by mouth every Tuesday,Tuesday,Tuesday. Taking Yes valGANciclovir (VALCYTE) 450 mg tablet Take 2 tablets by mouth daily with breakfast. Taking Yes mycophenolate mofetil (CELLCEPT) 250 mg capsule Take 3 capsules by mouth twice daily. Taking Yes phosphorus (K PHOS NEUTRAL) 250 mg tablet Take 1 tablet by mouth twice daily. Taking Yes magnesium oxide (MAG-OX) 400 mg (241.3 mg magnesium) tablet Take 1 tablet by mouth twice daily. Taking Yes traMADol (ULTRAM) 50 mg tablet Take 1 tablet by mouth every 4 hours as needed for pain (for pain.).Taking Yes acetaminophen (TYLENOL) 325 mg tablet Take 2 tablets by mouth every 6 hours as needed for pain. Taking Yes camphor-methyl salicyl-menthol (SALONPAS) 3.1-10-6 % ptmd Use as needed for back pain, joint pain, and pain around clamshell incision. Apply 12 hours on and 12 hours off Taking Yes albuterol (PROVENTIL) 2.5 mg /3 mL (0.083 %) nebulizer solution Use 3 mL via nebulizer every Tuesday,Tuesday,Tuesday. Taking Yes ondansetron (ZOFRAN) 4 mg tablet Take 1 tablet by mouth every 8 hours as needed for nausea/vomiting. Taking Yes lidocaine (LMX) 4 % cream Apply to affected area as needed (pain around incision site). Patient taking differently: Apply 1 application to affected area as needed (pain around incision site). Medication Comments documented by Madisyn Hager MA on 02/25/2022 at 0959. Pt states medication is still the same as listed on his medication list. CURRENT ALLERGIES: ALLERGIES Allergen Reactions Nsaids (Non-Steroid* Contraindication-Medical Surgical Patient states he is not allergic to Nsaids- caused upset stomach Penicillins GI Upset Patient states he is not allergic to penicillin- caused upset stomach REVIEW OF SYSTEMS: PAIN ASSESSMENT: General: No weight loss, malaise or fevers. Neuro: No Hx of stroke or seizures Respiratory: History of double lung transplant Cardiovascular: Positive for: None GI: No history of GI symptoms or problems. No history of esophageal varices, recent ascites, or ETOH greater than 2 drinks per day. : No history of UTI in past 6 weeks. No history of renal failure. Not currently on or requiring dialysis. No history of symptoms or problems. 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 Has not taken steroids within the past 30 days. No history of endocrinological symptoms or problems. Hematology: No history of bleeding or clotting disorder. Pt is not taking anti- coagulation or platelet medications. No history of hematological symptoms or problems. Oncology: No history of CA metastasis, chemo within 30 days, or radiotherapy within 90 days. Has not lost 10% of body wt in 6 months. No history of oncological symptoms or problems. Psych: No history of psychiatric symptoms or problems. Musculoskeletal: Negative for joint pain or swelling, back pain or muscle pain. Skin: Negative for lesions, rash and itching. PHYSICAL EXAM: VITALS: BP 121/74 Pulse 88 General: Alert and oriented Skin: Normal color, no rash, no lesions. HEENT: EOM, pupils equal, round and reactive. Cardiovascular: Normal S1 & S2, no rubs, murmurs or gallops. No JVD. Pulse regular. Lungs: Normal breath sounds, no wheezes or crackles. Abdomen: Soft, non-tender, no rigidity. Extremities: No deformity, no edema or tenderness, no joint swelling or clubbing. Neurological: Normal cognition and motor skills. Pulses: Carotid and radial pulses normal +2. Diagnostic tests reviewed for today's visit: No new labs or tests ASSESSMENT Medication and Non-Pharmacologic VTE Prophylaxis/Anticoagulants VTE Prophylaxis: VTE prophylaxis appropriate Impression: There is no known pertinent medical condition which may affect gio- operative course Clinical Risk Factors for Possible Cardiac Complications: None Patient is scheduled for a low-risk procedure. FUNCTIONAL STATUS: Do yardwork, such as raking leaves, weeding,or pushing a power mower (4.50 METs) Functional Class (NYHA): N/A [employer]: Not obtained PLAN CONSULTS: Patient does not require consults for optimization at this time. The Following Tests/Procedures Have Been Initiated: None Instructions Given to Patient: Patient given verbal and written preop instructions and voices comprehension and compliance. SIGNATURE: Evan May MD PATIENT NAME: Belgica Angelo DATE: April 25, 2023 TIME: 3:59 PM PAGER/CONTACT #: Source Comments - [facility] In the event this information is protected by the Federal Confidentiality of Alcohol and Drug AbusePatient Records regulations: The Federal rules restrict any use of the information to criminally investigate or prosecute any alcohol or drug abuse patient. 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 Never 04/10/2020 Average Number of Drinks Not on file 04/10/2020 Frequency of Binge Drinking Not on file 04/10/2020 Social History Overall Financial Resource Strain (CARDIA) Answer Date Recorded How hard is it for you to pay for the very basics like food, housing, medical care, and heating? Not hard at all 07/20/2022 Social History Hunger Vital Sign Answer Date Recorded Within the past 12 months, you worried that your food would run out before you got the money to buymore. Never true 07/20/2022 Within the past 12 months, the food you bought just didn't last and you didn't have money to get more. Never true 07/20/2022 Social History PRAPARE - Transportation Answer Date Recorded In the past 12 months, has lack of transportation kept you from medical appointments or from getting medications? No 07/20/2022 In the past 12 months, has lack of transportation kept you from meetings, work, or from getting things needed for daily living? No 07/20/2022 Social History Housing Stability Vital Sign Answer Date Recorded In the last 12 months, was there a time when you were not able to pay the mortgage or rent on time?No 07/20/2022 Number of Places Lived in the Last Year Not on file 07/20/2022 In the last 12 months, was there a time when you did not have a steady place to sleep or slept in ashelter (including now)? No 07/20/2022 Social History Area Deprivation Index Answer Date Recorded National Score (1-100), lower number is lower risk 72 08/08/2022 State Score (1-10), lower number is lower risk 5 08/08/2022 Data from: https://www.neighborhoodatlas.medicine.[facility].edu/. Last address used for calculation [address] 08/08/2022 Social History Sex and Gender Information Value Date Recorded Sex Assigned at Male 01/26/2021 9:33 AM EST Gender Identity Male 01/26/2021 9:33 AM EST Sexual Orientation Not on file Last Filed Vital Signs - documented in this encounter Last Filed Vital Signs Vital Sign Reading Time Taken Comments Blood Pressure 121/74 04/25/2023 3:50 PM EDT Pulse 88 04/25/2023 3:50 PM EDT Temperature - - Respiratory Rate - - Oxygen Saturation - - Inhaled Oxygen Concentration - - Weight - - Height - - Body Mass Index - - Functional Status - documented as of this encounter Functional Status Functional Status Response Date of Assessment Are you deaf or do you have serious difficulty hearing? No 02/23/2022 Are you blind or do you have serious difficulty seeing, even when wearing glasses? No 02/23/2022 Do you have serious difficulty walking or climbing stairs? No 02/23/2022 Do you have difficulty dressing or bathing? No 02/23/2022 Because of a physical, mental, or emotional condition, do you have difficulty doing errands alone such as visiting a doctor's office or shopping? No 02/23/2022 Functional Status Cognitive Status Response Date of Assessment Because of a physical, mental, or emotional condition, do you have serious difficulty concentrating, remembering, or making decisions? No 02/23/2022 Patient Instructions - documented in this encounter Patient Instructions Evan May MD - 04/25/2023 3:58 PM EDT Plan Cataract Surgery with Monofocal Intraocular Lens Implant Right Eye on 04/28/2023 at [facility]. Current Ophthalmic Meds fluorometholone (FML LIQUID FILM) 0.1 % ophthalmic suspension Use 1 Drop in both eyes three times aday. Continue: Systane Complete solution instill 1 drop 3 times daily Both Eyes. If you have any questions please contact our office at [phone]. After office hours or on the weekend, please call Dr. May on his cell phone at [phone]. Progress Notes - documented in this encounter Evan Mya MD - 04/25/2023 3:55 PM EDT ASSESSMENT/PLAN: 1. 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 Belgica Angelo has confirmed that he is no longer able to function adequately on a day-to-day basisbecause of his current visual condition. Further, it is my medical opinion that the cataract is the primary cause, or at least a significantly contributory cause of his visual dysfunction. With uncomplicated cataract surgery and lens implantation, it is my expectation that his visual function and quality of life will improve, significantly. The risks, benefits, alternatives, personnel and complications of cataract surgery with lens implantation were discussed with Belgica Angelo in detail. He appeared to understand and asked that I proceed with plans for surgery. Upon eye examination, patient was found to have a visually significant cataract Right Eye. Discussed cataract surgery with patient and different intraocular lens implant options with patient: basic monofocal intraocular lens implant, Toric intraocular lens implant, and presbyopia correction intraocular lens implant. In my medical opinion, based on medical history and ocular examination, cataract surgery with intraocular lens implant will correct patient's vision and improve quality of patient'sdaily living activities. Patient wishes to have traditional cataract surgery with basic intraocularlens Right Eye. Patient wishes to have cataract surgery with the option stated above. Patient unders tands that an intraocular lens implant does not necessarily replace the need for glasses. Patient understands that it is impossible for the surgeon to inform him/her of every possible complication that may occur. The surgeon has answered all of the patient's questions. Patient understands that if he/she has a mature or dense cataract, pseudoexfoliation cataract, or history of use of Flomax, he/she may require the use of Maluyugin Ring and/or Vision Blue during surgery. Patient understands the risks, benefits, and alternatives to surgery. Plan Cataract Surgery with Monofocal Intraocular Lens Implant Right Eye on 04/28/2023 at [facility]. Current Ophthalmic Meds fluorometholone (FML LIQUID FILM) 0.1 % ophthalmic suspension Use 1 Drop in both eyes three times aday. Continue: Systane Complete solution instill 1 drop 3 times daily Both Eyes. PHYSICAL EXAM: Vital Signs: Blood pressure 121/74, pulse 88. Respiratory: Normal breath sounds, no wheezing. CARD: Normal heart sounds 1 & 2, normal sinus rhythm. 2. Combined forms of age-related cataract of left eye - ICD9: 366.19, ICD10: H25.812 - [facility] ONLY - DIAGNOSTIC OU (BOTH EYES) Plan Cataract Surgery with Monofocal Intraocular Lens Implant Left Eye when Right Eye is stable. 3. 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 4. Hypercholesteremia - ICD9: 272.0, ICD10: E78.00 Continue to monitor with primary care physician. I have confirmed and edited as necessary the relevant HPI, ophthalmic history, ROS, and the neuro exam findings as obtained by others. I have seen and examined Belgica Angelo. I have discussed the case and the management of this patient's care with the Resident/Fellow, if applicable. I also have reviewed and agree with the assessment and plan as stated above and agree with all of its relevant components. Plan of Treatment - documented as of this encounter Plan of Treatment - Upcoming Encounters Upcoming Encounters Date Type Department Care Team (Latest Contact Info) Description 04/28/2023 9:40 AM EDT Hospital Encounter Evan May MD [address] [place] [address] 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-related cataract, right eye [H25.811] 04/28/2023 9:40 AM EDT - 04/28/2023 9:55 AM EDT Surgery [address] [address] Evan May MD [address] [place] [address] SURGERY AT NON-THE [facility] 04/29/2023 11:15 AM EDT Office Visit OPHT Ophthalmology [address] [place] [address] Evan May MD [address] [place] [address] 1 day po 1st re basic 07/07/2023 4:20 PM EDT Office Visit Family Medicine [address] [address] Keshav Phillips, 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 SERVICE REPRESENTATIVE.[facility] [address] [place] [address] est care 07/21/2023 7:15 AM EDT Office Visit Main [place] [id number] Draw Station [address] [address] Post lung Txp 07/21/2023 7:55 AM EDT Appointment Radiology [address] [address] Post lung Txp/ FU 07/21/2023 8:30 AM EDT Procedure Pulmonary Medicine [address] [address] 1, Pulm Fct Lab Main [address] [place] [address] Post lung Txp/ FU 07/21/2023 9:00 AM EDT Office Visit Pulmonary Medicine [address] [address] Viviane Curtis MD [address] [place] [address] Post lung Txp/ FU 07/21/2023 12:30 PM EDT Hospital Encounter Admitting [address] [address] Nick Mccoy MD [address] [place] [address] Lung replaced by transplant ([facility]) [Z94.2] 07/21/2023 12:30 PM EDT - 07/21/2023 1:30 PM EDT Surgery Admitting [address] [address] Nick Mccoy MD [address] [place] [address] BRONCHOSCOPY FLEXIBLE ADULT 09/15/2023 12:45 PM EDT Office Visit Pulmonary Medicine [address] [place], [place] [id number] Shukri Juárez MD [address] [facility] [place], [place] [id number] 6 month follow up Plan of Treatment - Scheduled Procedures Scheduled Procedures Name Priority Associated Diagnoses Date/Time SURGERY AT NON-[facility] 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-related cataract, right eye 04/28/2023 9:40 AM EDT BRONCHOSCOPY FLEXIBLE ADULT 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) 07/21/2023 12:30 PM EDT Procedures - documented in this encounter Procedures Procedure Name Priority Date/Time Associated Diagnosis Comments [facility] ONLY - DIAGNOSTIC OU (BOTH EYES) Routine 04/25/2023 4:11 PM EDT Combined forms of age-relatedcataract of right eye Combined forms of age-related cataract of left eye Imaging Results - documented in this encounter [facility] ONLY - DIAGNOSTIC OU (BOTH EYES) (04/25/2023 4:11 PM EDT) Imaging Results - [facility] ONLY - DIAGNOSTIC OU (BOTH EYES) (04/25/2023 4:11 PM EDT) Anatomical Region Laterality Modality Other Imaging Results - [facility] ONLY - DIAGNOSTIC OU (BOTH EYES) (04/25/2023 4:11 PM EDT) Narrative 04/25/2023 4:11 PM EDT Date of Procedure 04/25/2023. 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 If blood glucose is less than 70 mg/dL implement hypoglycemia treatment orders and notify provider. If Blood Glucose (mg/dL) is <110 Give 0 units 111-150 Give 0 units 151-200 Give 2 unit 201-250 Give 4 units 251-300 Give 6 units 301-350 Give 8 units 351-400 Give 10 units >400 Give 10 units and notify physician Notify provider if 2 consecutive blood glucose values in the previous 24 hours are greater than 250mg/mL and there have been no changes to the insulin regimen in the previous 24 hours. Discontinued by another Health Care Provider 08/03/2022 04/25/2023 Eye Exam Eye Exam - Visual Acuity Visual Acuity Right eye Left eye Dist cc 20/80 20/80 Near cc J10 J10 Eye Exam - Pupils Pupils Pupils Dark Light Shape APD Right eye PERRL 5 3 Round None Left eye PERRL 5 3 Round None Eye Exam - Visual Jacques (Counting fingers) Visual Jacques (Counting fingers) Right eye Left eye Full Full Eye Exam - Extraocular Movement Extraocular Movement Right eye Left eye Full Full Eye Exam - Neuro/Psych Neuro/Psych Oriented x3: Yes Mood/Affect: Normal LENSTAR (2) Right eye: AL 24.91 ACD 3.09 WTW 13.03 Left eye: AL 24.91 ACD 3.17 WTW 12.99 Eye Exam - External Exam External Exam Right eye Left eye External Normal including orbits and preauricular lymph nodes Normal including orbits and preauricular lymph nodes Eye Exam - Slit Lamp Exam Slit Lamp Exam Right eye Left eye Lids/Lashes Meibomian gland dysfunction Meibomian gland dysfunction Conjunctiva/Sclera White and quiet White and quiet Cornea 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 Anterior Chamber Deep and quiet Deep and quiet Iris Round and reactive Round and reactive Lens 3+ Nuclear sclerotic cataract, 3+ Posterior subcapsular cataract 3+ Nuclear sclerotic cataract, 3+ Posterior subcapsular cataract Anterior Vitreous Normal Normal Eye Exam - Fundus Exam Fundus Exam Right eye Left eye Disc Normal Normal C/D Ratio 0.25 0.25 Macula Normal Normal Vessels Normal Normal Periphery Normal Normal Care Teams - documented as of this encounter 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 HPI: PAST MEDICAL HISTORY Diagnosis Date Asthma Bronchiectasis (HCC) COPD (chronic obstructive pulmonary disease) (HCC) Dependence on supplemental oxygen Heterozygous alpha 1-antitrypsin deficiency (HCC) PiMZ Lung nodule Pain in joint, ankle and foot S/P lung transplant (HCC) PAST SURGICAL HISTORY Procedure Laterality Date LUNG TRANSPLANT,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 PAST SURGICAL HISTORY OF 02/07/2011 Rt foot reconstruction REMV CATARACT EXTRACAP,INSERT LENS RPR UMBILICAL HRNA 5 YRS/> REDUCIBLE 07/26/2012 Hernia repair, umbilical >5yr FAMILY HISTORY Problem Relation Age of Onset COPD Mother Heart disease Father Breast Cancer Sister No Known Problems Sister No Known Problems Sister COPD Brother COPD Brother SOCIAL HISTORY: Social History Tobacco Use Smoking status: Former Packs/day: 4.00 Years: 30.00 Additional pack years: 0.00 Total pack years: 120.00 Types: Cigarettes Quit date: 2010 Years since quittin.2 Smokeless tobacco: Never Vaping Use Vaping Use: Never used Substance Use Topics Alcohol use: Never Drug use: Never MEDICATIONS: Prior to Admission medications as of 04/25/23 1555 Medication Sig Last Dose Taking tacrolimus IR (PROGRAF) 1 mg capsule In combination with 5mg capsules 8mg in the AM and 7mg in the PM Taking Yes tacrolimus IR (PROGRAF) 5 mg capsule Take 1 capsule by mouth two times a day. In combination with 1mg capsules (Total dose is 8mg twice daily) Taking Yes furosemide (LASIX) 40 mg tablet Take 1 tablet by mouth once daily as needed. Taking Yes fluorometholone (FML LIQUID FILM) 0.1 % ophthalmic suspension Use 1 Drop in both eyes three times aday. Taking Yes predniSONE (DELTASONE) 5 mg tablet Take 1 tablet by mouth once daily. Taking Yes atorvastatin (LIPITOR) 10 mg tablet Take 1 tablet by mouth daily at bedtime. Taking Yes azithromycin (ZITHROMAX) 250 mg tablet Take 1 tablet by mouth every Tuesday, Tuesday, and Tuesday. Taking Yes pantoprazole DR (PROTONIX) 20 mg tablet Take 1 tablet by mouth daily at 6 am. Taking Yes oseltamivir (TAMIFLU) 75 mg capsule Take 1 capsule by mouth two times a day. Tamiflu emergency Rx. Take upon onset of influenza symptoms and get tested as soon as possible. Taking Yes sulfamethoxazole-trimethoprim (BACTRIM DS) 800-160 mg per tablet Take 1 tablet by mouth every Tuesday,Tuesday,Tuesday. Taking Yes valGANciclovir (VALCYTE) 450 mg tablet Take 2 tablets by mouth daily with breakfast. Taking Yes mycophenolate mofetil (CELLCEPT) 250 mg capsule Take 3 capsules by mouth twice daily. Taking Yes phosphorus (K PHOS NEUTRAL) 250 mg tablet Take 1 tablet by mouth twice daily. Taking Yes magnesium oxide (MAG-OX) 400 mg (241.3 mg magnesium) tablet Take 1 tablet by mouth twice daily. Taking Yes traMADol (ULTRAM) 50 mg tablet Take 1 tablet by mouth every 4 hours as needed for pain (for pain.).Taking Yes acetaminophen (TYLENOL) 325 mg tablet Take 2 tablets by mouth every 6 hours as needed for pain. Taking Yes camphor-methyl salicyl-menthol (SALONPAS) 3.1-10-6 % ptmd Use as needed for back pain, joint pain, and pain around clamshell incision. Apply 12 hours on and 12 hours off Taking Yes albuterol (PROVENTIL) 2.5 mg /3 mL (0.083 %) nebulizer solution Use 3 mL via nebulizer every Tuesday,Tuesday,Tuesday. Taking Yes ondansetron (ZOFRAN) 4 mg tablet Take 1 tablet by mouth every 8 hours as needed for nausea/vomiting. Taking Yes lidocaine (LMX) 4 % cream Apply to affected area as needed (pain around incision site). Patient taking differently: Apply 1 application to affected area as needed (pain around incision site). Medication Comments documented by Madisyn Hager MA on 02/25/2022 at 0959. Pt states medication is still the same as listed on his medication list. CURRENT ALLERGIES: ALLERGIES Allergen Reactions Nsaids (Non-Steroid* Contraindication-Medical Surgical Patient states he is not allergic to Nsaids- caused upset stomach Penicillins GI Upset Patient states he is not allergic to penicillin- caused upset stomach REVIEW OF SYSTEMS: PAIN ASSESSMENT: General: No weight loss, malaise or fevers. Neuro: No Hx of stroke or seizures Respiratory: History of double lung transplant Cardiovascular: Positive for: None GI: No history of GI symptoms or problems. No history of esophageal varices, recent ascites, or ETOH greater than 2 drinks per day. : No history of UTI in past 6 weeks. No history of renal failure. Not currently on or requiring dialysis. No history of symptoms or problems. 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 Has not taken steroids within the past 30 days. No history of endocrinological symptoms or problems. Hematology: No history of bleeding or clotting disorder. Pt is not taking anti- coagulation or platelet medications. No history of hematological symptoms or problems. Oncology: No history of CA metastasis, chemo within 30 days, or radiotherapy within 90 days. Has not lost 10% of body wt in 6 months. No history of oncological symptoms or problems. Psych: No history of psychiatric symptoms or problems. Musculoskeletal: Negative for joint pain or swelling, back pain or muscle pain. Skin: Negative for lesions, rash and itching. PHYSICAL EXAM: VITALS: BP 121/74 Pulse 88 General: Alert and oriented Skin: Normal color, no rash, no lesions. HEENT: EOM, pupils equal, round and reactive. Cardiovascular: Normal S1 & S2, no rubs, murmurs or gallops. No JVD. Pulse regular. Lungs: Normal breath sounds, no wheezes or crackles. Abdomen: Soft, non-tender, no rigidity. Extremities: No deformity, no edema or tenderness, no joint swelling or clubbing. Neurological: Normal cognition and motor skills. Pulses: Carotid and radial pulses normal +2. Diagnostic tests reviewed for today's visit: No new labs or tests ASSESSMENT Medication and Non-Pharmacologic VTE Prophylaxis/Anticoagulants VTE Prophylaxis: VTE prophylaxis appropriate Impression: There is no known pertinent medical condition which may affect gio- operative course Clinical Risk Factors for Possible Cardiac Complications: None Patient is scheduled for a low-risk procedure. FUNCTIONAL STATUS: Do yardwork, such as raking leaves, weeding,or pushing a power mower (4.50 METs) Functional Class (NYHA): N/A [facility]: Not obtained PLAN CONSULTS: Patient does not require consults for optimization at this time. The Following Tests/Procedures Have Been Initiated: None Instructions Given to Patient: Patient given verbal and written preop instructions and voices comprehension and compliance. SIGNATURE: Evan May MD PATIENT NAME: Belgica Angelo DATE: April 25, 2023 TIME: 3:59 PM PAGER/CONTACT #: Source Comments - [facility] In the event this information is protected by the Federal Confidentiality of Alcohol and Drug AbusePatient Records regulations: The Federal rules restrict any use of the information to criminally investigate or prosecute any alcohol or drug abuse patient. 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 Never 04/10/2020 Average Number of Drinks Not on file 04/10/2020 Frequency of Binge Drinking Not on file 04/10/2020 Social History Overall Financial Resource Strain (CARDIA) Answer Date Recorded How hard is it for you to pay for the very basics like food, housing, medical care, and heating? Not hard at all 07/20/2022 Social History Hunger Vital Sign Answer Date Recorded Within the past 12 months, you worried that your food would run out before you got the money to buymore. Never true 07/20/2022 Within the past 12 months, the food you bought just didn't last and you didn't have money to get more. Never true 07/20/2022 Social History PRAPARE - Transportation Answer Date Recorded In the past 12 months, has lack of transportation kept you from medical appointments or from getting medications? No 07/20/2022 In the past 12 months, has lack of transportation kept you from meetings, work, or from getting things needed for daily living? No 07/20/2022 Social History Housing Stability Vital Sign Answer Date Recorded In the last 12 months, was there a time when you were not able to pay the mortgage or rent on time?No 07/20/2022 Number of Places Lived in the Last Year Not on file 07/20/2022 In the last 12 months, was there a time when you did not have a steady place to sleep or slept in bereaelter (including now)? No 07/20/2022 Social History Area Deprivation Index Answer Date Recorded National Score (1-100), lower number is lower risk 72 08/08/2022 State Score (1-10), lower number is lower risk 5 08/08/2022 Data from: https://www.neighborhoodatlas.[place]/. Last address used for calculation [address] 08/08/2022 Social History Sex and Gender Information Value Date Recorded Sex Assigned at Male 01/26/2021 9:33 AM EST Gender Identity Male 01/26/2021 9:33 AM EST Sexual Orientation Not on file Last Filed Vital Signs - documented in this encounter Last Filed Vital Signs Vital Sign Reading Time Taken Comments Blood Pressure 121/74 04/25/2023 3:50 PM EDT Pulse 88 04/25/2023 3:50 PM EDT Temperature - - Respiratory Rate - - Oxygen Saturation - - Inhaled Oxygen Concentration - - Weight - - Height - - Body Mass Index - - Functional Status - documented as of this encounter Functional Status Functional Status Response Date of Assessment Are you deaf or do you have serious difficulty hearing? No 02/23/2022 Are you blind or do you have serious difficulty seeing, even when wearing glasses? No 02/23/2022 Do you have serious difficulty walking or climbing stairs? No 02/23/2022 Do you have difficulty dressing or bathing? No 02/23/2022 Because of a physical, mental, or emotional condition, do you have difficulty doing errands alone such as visiting a doctor's office or shopping? No 02/23/2022 Functional Status Cognitive Status Response Date of Assessment Because of a physical, mental, or emotional condition, do you have serious difficulty concentrating, remembering, or making decisions? No 02/23/2022 Patient Instructions - documented in this encounter Patient Instructions Evan May MD - 04/25/2023 3:58 PM EDT Plan Cataract Surgery with Monofocal Intraocular Lens Implant Right Eye on 04/28/2023 at [facility]. Current Ophthalmic Meds fluorometholone (FML LIQUID FILM) 0.1 % ophthalmic suspension Use 1 Drop in both eyes three times aday. Continue: Systane Complete solution instill 1 drop 3 times daily Both Eyes. If you have any questions please contact our office at [phone]. After office hours or on the weekend, please call Dr. May on his cell phone at [phone]. Progress Notes - documented in this encounter Evan May MD - 04/25/2023 3:55 PM EDT ASSESSMENT/PLAN: 1. 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 Belgica Angelo has confirmed that he is no longer able to function adequately on a day-to-day basisbecause of his current visual condition. Further, it is my medical opinion that the cataract is the primary cause, or at least a significantly contributory cause of his visual dysfunction. With uncomplicated cataract surgery and lens implantation, it is my expectation that his visual function and quality of life will improve, significantly. The risks, benefits, alternatives, personnel and complications of cataract surgery with lens implantation were discussed with Belgica Angelo in detail. He appeared to understand and asked that I proceed with plans for surgery. Upon eye examination, patient was found to have a visually significant cataract Right Eye. Discussed cataract surgery with patient and different intraocular lens implant options with patient: basic monofocal intraocular lens implant, Toric intraocular lens implant, and presbyopia correction intraocular lens implant. In my medical opinion, based on medical history and ocular examination, cataract surgery with intraocular lens implant will correct patient's vision and improve quality of patient'sdaily living activities. Patient wishes to have traditional cataract surgery with basic intraocularlens Right Eye. Patient wishes to have cataract surgery with the option stated above. Patient unders tands that an intraocular lens implant does not necessarily replace the need for glasses. Patient understands that it is impossible for the surgeon to inform him/her of every possible complication that may occur. The surgeon has answered all of the patient's questions. Patient understands that if he/she has a mature or dense cataract, pseudoexfoliation cataract, or history of use of Flomax, he/she may require the use of Maluyugin Ring and/or Vision Blue during surgery. Patient understands the risks, benefits, and alternatives to surgery. Plan Cataract Surgery with Monofocal Intraocular Lens Implant Right Eye on 04/28/2023 at [facility]. Current Ophthalmic Meds fluorometholone (FML LIQUID FILM) 0.1 % ophthalmic suspension Use 1 Drop in both eyes three times aday. Continue: Systane Complete solution instill 1 drop 3 times daily Both Eyes. PHYSICAL EXAM: Vital Signs: Blood pressure 121/74, pulse 88. Respiratory: Normal breath sounds, no wheezing. CARD: Normal heart sounds 1 & 2, normal sinus rhythm. 2. Combined forms of age-related cataract of left eye - ICD9: 366.19, ICD10: H25.812 - [facility] ONLY - DIAGNOSTIC OU (BOTH EYES) Plan Cataract Surgery with Monofocal Intraocular Lens Implant Left Eye when Right Eye is stable. 3. 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 4. Hypercholesteremia - ICD9: 272.0, ICD10: E78.00 Continue to monitor with primary care physician. I have confirmed and edited as necessary the relevant HPI, ophthalmic history, ROS, and the neuro exam findings as obtained by others. I have seen and examined Belgica Angelo. I have discussed the case and the management of this patient's care with the Resident/Fellow, if applicable. I also have reviewed and agree with the assessment and plan as stated above and agree with all of its relevant components. Plan of Treatment - documented as of this encounter Plan of Treatment - Upcoming Encounters Upcoming Encounters Date Type Department Care Team (Latest Contact Info) Description 04/28/2023 9:40 AM EDT Hospital Encounter Evan May MD [address] [place] [address] 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-related cataract, right eye [H25.811] 04/28/2023 9:40 AM EDT - 04/28/2023 9:[address] [facility] [address] [place] [address] Evan May MD [address] [place] [id number] SURGERY AT NON-THE [facility] 04/29/2023 11:15 AM EDT Office Visit OPHT Ophthalmology [address] [place] [address] Evan May MD [address] [place] [address] 1 day po 1st re basic 07/07/2023 4:20 PM EDT Office Visit Family [address] [id number] Keshav Phillips, ANA LAURA.[address] [phone] est care 07/21/2023 7:15 AM EDT Office Visit [address] [address] Post lung Txp 07/21/2023 7:55 AM EDT Appointment Radiology [address] [address] Post lung Txp/ FU 07/21/2023 8:30 AM EDT Procedure Pulmonary Medicine [address] [address] 1, Pulm Fct Lab Main [address] [place], [place] [id number] Post lung Txp/ FU 07/21/2023 9:00 AM EDT Office Visit Pulmonary Medicine [address] [place] [address] Viviane Curtis MD [address] [place] [address] Post lung Txp/ FU 07/21/2023 12:30 PM EDT Hospital Encounter Admitting [address] [address] Nick Mccoy MD [address] [place] [address] Lung replaced by transplant ([facility]) [Z94.2] 07/21/2023 12:30 PM EDT - 07/21/2023 1:30 PM EDT Surgery Admitting [address] [address] Nick Mccoy MD [address] [place], [place] [phone] BRONCHOSCOPY FLEXIBLE ADULT 09/15/2023 12:45 PM EDT Office Visit Pulmonary Medicine [address] [place] [address] Shukri Juárez MD [address] [facility] [place] [address] 6 month follow up Plan of Treatment - Scheduled Procedures Scheduled Procedures Name Priority Associated Diagnoses Date/Time SURGERY AT NON-[facility] 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-related cataract, right eye 04/28/2023 9:40 AM EDT BRONCHOSCOPY FLEXIBLE ADULT 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) 07/21/2023 12:30 PM EDT Procedures - documented in this encounter Procedures Procedure Name Priority Date/Time Associated Diagnosis Comments [facility] ONLY - DIAGNOSTIC OU (BOTH EYES) Routine 04/25/2023 4:11 PM EDT Combined forms of age-relatedcataract of right eye Combined forms of age-related cataract of left eye Imaging Results - documented in this encounter [facility] ONLY - DIAGNOSTIC OU (BOTH EYES) (04/25/2023 4:11 PM EDT) Imaging Results - [facility] ONLY - DIAGNOSTIC OU (BOTH EYES) (04/25/2023 4:11 PM EDT) Anatomical Region Laterality Modality Other Imaging Results - [facility] ONLY - DIAGNOSTIC OU (BOTH EYES) (04/25/2023 4:11 PM EDT) Narrative 04/25/2023 4:11 PM EDT Date of Procedure 04/25/2023. 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 If blood glucose is less than 70 mg/dL implement hypoglycemia treatment orders and notify provider. If Blood Glucose (mg/dL) is <110 Give 0 units 111-150 Give 0 units 151-200 Give 2 unit 201-250 Give 4 units 251-300 Give 6 units 301-350 Give 8 units 351-400 Give 10 units >400 Give 10 units and notify physician Notify provider if 2 consecutive blood glucose values in the previous 24 hours are greater than 250mg/mL and there have been no changes to the insulin regimen in the previous 24 hours. Discontinued by another Health Care Provider 08/03/2022 04/25/2023 Eye Exam Eye Exam - Visual Acuity Visual Acuity Right eye Left eye Dist cc 20/80 20/80 Near cc J10 J10 Eye Exam - Pupils Pupils Pupils Dark Light Shape APD Right eye PERRL 5 3 Round None Left eye PERRL 5 3 Round None Eye Exam - Visual Jacques (Counting fingers) Visual Jacques (Counting fingers) Right eye Left eye Full Full Eye Exam - Extraocular Movement Extraocular Movement Right eye Left eye Full Full Eye Exam - Neuro/Psych Neuro/Psych Oriented x3: Yes Mood/Affect: Normal LENSTAR (2) Right eye: AL 24.91 ACD 3.09 WTW 13.03 Left eye: AL 24.91 ACD 3.17 WTW 12.99 Eye Exam - External Exam External Exam Right eye Left eye External Normal including orbits and preauricular lymph nodes Normal including orbits and preauricular lymph nodes Eye Exam - Slit Lamp Exam Slit Lamp Exam Right eye Left eye Lids/Lashes Meibomian gland dysfunction Meibomian gland dysfunction Conjunctiva/Sclera White and quiet White and quiet Cornea 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 Anterior Chamber Deep and quiet Deep and quiet Iris Round and reactive Round and reactive Lens 3+ Nuclear sclerotic cataract, 3+ Posterior subcapsular cataract 3+ Nuclear sclerotic cataract, 3+ Posterior subcapsular cataract Anterior Vitreous Normal Normal Eye Exam - Fundus Exam Fundus Exam Right eye Left eye Disc Normal Normal C/D Ratio 0.25 0.25 Macula Normal Normal Vessels Normal Normal Periphery Normal Normal Care Teams - documented as of this encounter 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 Specialty Start Date End Date Aisha Newton MD [address] [place], [place] [phone] PCP - General Family Medicine 01/13/21 Markos Burgos MD [address] [place] [address] Primary Staff Physician Cardiology 02/22/22 Regina Decker APRN.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 MANAGER [address] [place] [address] Referring Transplant Center 08/05/22 Regina Decker APRN.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 MANAGER [address] [place] [address] Home Care Provider Transplant Center 08/05/22 [facility]: 1(576) 488-569503-20-2024 Note* Preprocedure Instructions - Anita Zaragoza RN - 04/27/2023 9:53 AM EDT No outpatient medications have been marked as taking for the 04/28/23 encounter (Hospital Encounter). 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 HPI: PAST MEDICAL HISTORY Diagnosis Date Asthma Bronchiectasis (HCC) COPD (chronic obstructive pulmonary disease) (HCC) Dependence on supplemental oxygen Heterozygous alpha 1-antitrypsin deficiency (HCC) PiMZ Lung nodule Pain in joint, ankle and foot S/P lung transplant (HCC) PAST SURGICAL HISTORY Procedure Laterality Date LUNG TRANSPLANT,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 PAST SURGICAL HISTORY OF 02/07/2011 Rt foot reconstruction REMV CATARACT EXTRACAP,INSERT LENS RPR UMBILICAL HRNA 5 YRS/> REDUCIBLE 07/26/2012 Hernia repair, umbilical >5yr FAMILY HISTORY Problem Relation Age of Onset COPD Mother Heart disease Father Breast Cancer Sister No Known Problems Sister No Known Problems Sister COPD Brother COPD Brother SOCIAL HISTORY: Social History Tobacco Use Smoking status: Former Packs/day: 4.00 Years: 30.00 Additional pack years: 0.00 Total pack years: 120.00 Types: Cigarettes Quit date: 2010 Years since quittin.2 Smokeless tobacco: Never Vaping Use Vaping Use: Never used Substance Use Topics Alcohol use: Never Drug use: Never MEDICATIONS: Prior to Admission medications as of 04/25/23 4745 Medication Sig Last Dose Taking tacrolimus IR (PROGRAF) 1 mg capsule In combination with 5mg capsules 8mg in the AM and 7mg in the PM Taking Yes tacrolimus IR (PROGRAF) 5 mg capsule Take 1 capsule by mouth two times a day. In combination with 1mg capsules (Total dose is 8mg twice daily) Taking Yes furosemide (LASIX) 40 mg tablet Take 1 tablet by mouth once daily as needed. Taking Yes fluorometholone (FML LIQUID FILM) 0.1 % ophthalmic suspension Use 1 Drop in both eyes three times aday. Taking Yes predniSONE (DELTASONE) 5 mg tablet Take 1 tablet by mouth once daily. Taking Yes atorvastatin (LIPITOR) 10 mg tablet Take 1 tablet by mouth daily at bedtime. Taking Yes azithromycin (ZITHROMAX) 250 mg tablet Take 1 tablet by mouth every Tuesday, Tuesday, and Tuesday. Taking Yes pantoprazole DR (PROTONIX) 20 mg tablet Take 1 tablet by mouth daily at 6 am. Taking Yes oseltamivir (TAMIFLU) 75 mg capsule Take 1 capsule by mouth two times a day. Tamiflu emergency Rx. Take upon onset of influenza symptoms and get tested as soon as possible. Taking Yes sulfamethoxazole-trimethoprim (BACTRIM DS) 800-160 mg per tablet Take 1 tablet by mouth every Tuesday,Tuesday,Tuesday. Taking Yes valGANciclovir (VALCYTE) 450 mg tablet Take 2 tablets by mouth daily with breakfast. Taking Yes mycophenolate mofetil (CELLCEPT) 250 mg capsule Take 3 capsules by mouth twice daily. Taking Yes phosphorus (K PHOS NEUTRAL) 250 mg tablet Take 1 tablet by mouth twice daily. Taking Yes magnesium oxide (MAG-OX) 400 mg (241.3 mg magnesium) tablet Take 1 tablet by mouth twice daily. Taking Yes traMADol (ULTRAM) 50 mg tablet Take 1 tablet by mouth every 4 hours as needed for pain (for pain.).Taking Yes acetaminophen (TYLENOL) 325 mg tablet Take 2 tablets by mouth every 6 hours as needed for pain. Taking Yes camphor-methyl salicyl-menthol (SALONPAS) 3.1-10-6 % ptmd Use as needed for back pain, joint pain, and pain around clamshell incision. Apply 12 hours on and 12 hours off Taking Yes albuterol (PROVENTIL) 2.5 mg /3 mL (0.083 %) nebulizer solution Use 3 mL via nebulizer every Tuesday,Tuesday,Tuesday. Taking Yes ondansetron (ZOFRAN) 4 mg tablet Take 1 tablet by mouth every 8 hours as needed for nausea/vomiting. Taking Yes lidocaine (LMX) 4 % cream Apply to affected area as needed (pain around incision site). Patient taking differently: Apply 1 application to affected area as needed (pain around incision site). Medication Comments documented by Madisyn Hager MA on 02/25/2022 at 0959. Pt states medication is still the same as listed on his medication list. CURRENT ALLERGIES: ALLERGIES Allergen Reactions Nsaids (Non-Steroid* Contraindication-Medical Surgical Patient states he is not allergic to Nsaids- caused upset stomach Penicillins GI Upset Patient states he is not allergic to penicillin- caused upset stomach REVIEW OF SYSTEMS: PAIN ASSESSMENT: General: No weight loss, malaise or fevers. Neuro: No Hx of stroke or seizures Respiratory: History of double lung transplant Cardiovascular: Positive for: None GI: No history of GI symptoms or problems. No history of esophageal varices, recent ascites, or ETOH greater than 2 drinks per day. : No history of UTI in past 6 weeks. No history of renal failure. Not currently on or requiring dialysis. No history of symptoms or problems. 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 Has not taken steroids within the past 30 days. No history of endocrinological symptoms or problems. Hematology: No history of bleeding or clotting disorder. Pt is not taking anti- coagulation or platelet medications. No history of hematological symptoms or problems. Oncology: No history of CA metastasis, chemo within 30 days, or radiotherapy within 90 days. Has not lost 10% of body wt in 6 months. No history of oncological symptoms or problems. Psych: No history of psychiatric symptoms or problems. Musculoskeletal: Negative for joint pain or swelling, back pain or muscle pain. Skin: Negative for lesions, rash and itching. PHYSICAL EXAM: VITALS: BP 121/74 Pulse 88 General: Alert and oriented Skin: Normal color, no rash, no lesions. HEENT: EOM, pupils equal, round and reactive. Cardiovascular: Normal S1 & S2, no rubs, murmurs or gallops. No JVD. Pulse regular. Lungs: Normal breath sounds, no wheezes or crackles. Abdomen: Soft, non-tender, no rigidity. Extremities: No deformity, no edema or tenderness, no joint swelling or clubbing. Neurological: Normal cognition and motor skills. Pulses: Carotid and radial pulses normal +2. Diagnostic tests reviewed for today's visit: No new labs or tests ASSESSMENT Medication and Non-Pharmacologic VTE Prophylaxis/Anticoagulants VTE Prophylaxis: VTE prophylaxis appropriate Impression: There is no known pertinent medical condition which may affect gio- operative course Clinical Risk Factors for Possible Cardiac Complications: None Patient is scheduled for a low-risk procedure. FUNCTIONAL STATUS: Do yardwork, such as raking leaves, weeding,or pushing a power mower (4.50 METs) Functional Class (NYHA): N/A [facility]: Not obtained PLAN CONSULTS: Patient does not require consults for optimization at this time. The Following Tests/Procedures Have Been Initiated: None Instructions Given to Patient: Patient given verbal and written preop instructions and voices comprehension and compliance. SIGNATURE: Evan May MD PATIENT NAME: Belgica Angelo DATE: April 25, 2023 TIME: 3:59 PM PAGER/CONTACT #: documented in this encounterCommunity [facility]24 Instructions* Patient Instructions* Evan May MD - 04/25/2023 3:58 PM EDT Plan Cataract Surgery with Monofocal Intraocular Lens Implant Right Eye on 04/28/2023 at [facility]. Current Ophthalmic Meds fluorometholone (FML LIQUID FILM) 0.1 % ophthalmic suspension Use 1 Drop in both eyes three times aday. Continue: Systane Complete solution instill 1 drop 3 times daily Both Eyes. If you have any questions please contact our office at [phone]. After office hours or on the weekend, please call Dr. May on his cell phone at [phone]. documented in this encounterCommunity [facility]03-18-2024 History of Present illness Narrative* Evan May MD - 04/25/2023 3:55 PM EDT ASSESSMENT/PLAN: 1. 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 Belgica Angelo has confirmed that he is no longer able to function adequately on a day-to-day basisbecause of his current visual condition. Further, it is my medical opinion that the cataract is the primary cause, or at least a significantly contributory cause of his visual dysfunction. With uncomplicated cataract surgery and lens implantation, it is my expectation that his visual function and quality of life will improve, significantly. The risks, benefits, alternatives, personnel and complications of cataract surgery with lens implantation were discussed with Belgica Dos Santoser in detail. He appeared to understand and asked that I proceed with plans for surgery. Upon eye examination, patient was found to have a visually significant cataract Right Eye. Discussed cataract surgery with patient and different intraocular lens implant options with patient: basic monofocal intraocular lens implant, Toric intraocular lens implant, and presbyopia correction intraocular lens implant. In my medical opinion, based on medical history and ocular examination, cataract surgery with intraocular lens implant will correct patient's vision and improve quality of patient'sdaily living activities. Patient wishes to have traditional cataract surgery with basic intraocularlens Right Eye. Patient wishes to have cataract surgery with the option stated above. Patient unders tands that an intraocular lens implant does not necessarily replace the need for glasses. Patient understands that it is impossible for the surgeon to inform him/her of every possible complication that may occur. The surgeon has answered all of the patient's questions. Patient understands that if he/she has a mature or dense cataract, pseudoexfoliation cataract, or history of use of Flomax, he/she may require the use of Maluyugin Ring and/or Vision Blue during surgery. Patient understands the risks, benefits, and alternatives to surgery. Plan Cataract Surgery with Monofocal Intraocular Lens Implant Right Eye on 04/28/2023 at [facility]. Current Ophthalmic Meds fluorometholone (FML LIQUID FILM) 0.1 % ophthalmic suspension Use 1 Drop in both eyes three times aday. Continue: Systane Complete solution instill 1 drop 3 times daily Both Eyes. PHYSICAL EXAM: Vital Signs: Blood pressure 121/74, pulse 88. Respiratory: Normal breath sounds, no wheezing. CARD: Normal heart sounds 1 & 2, normal sinus rhythm. 2. Combined forms of age-related cataract of left eye - ICD9: 366.19, ICD10: H25.812 - [facility] ONLY - DIAGNOSTIC OU (BOTH EYES) Plan Cataract Surgery with Monofocal Intraocular Lens Implant Left Eye when Right Eye is stable. 3. 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 4. Hypercholesteremia - ICD9: 272.0, ICD10: E78.00 Continue to monitor with primary care physician. I have confirmed and edited as necessary the relevant HPI, ophthalmic history, ROS, and the neuro exam findings as obtained by others. I have seen and examined Belgica Angelo. I have discussed the case and the management of this patient's care with the Resident/Fellow, if applicable. I also have reviewed and agree with the assessment and plan as stated above and agree with all of its relevant components. documented in this encounterCommunity [facility]03-15-2024 Miscellaneous Notes* Telephone Encounter - Ina Palacios RN - 04/22/2023 1:01 PM EDT Patient called and informed of an A0B0 biopsy. documented in this encounterCommunity [facility]03-14-2024 Miscellaneous Notes* Telephone Encounter - Ina Palacios RN - 04/21/2023 11:05 AM EDT Labs reviewed with Dr. Magallanes. Patient directed to take 8mg every morning at 8am and 7mg every evening at 8pm and have labs drawn on 05/01. The following approved medication requests have been transmitted electronically. Requested Prescriptions Pending Prescriptions Disp Refills tacrolimus IR (PROGRAF) 1 mg capsule Sig: In combination with 5mg capsules 8mg in the AM and 7mg in the PM Ina Palacios RN * Telephone Encounter - Ina Palacios RN - 04/21/2023 7:41 AM EDT Transplants: 07/20/2022 (Lung) Lab Results Component Value Date FK506 14.4 04/20/2023 CREAT 1.45 (H) 04/20/2023 K 5.2 (H) 04/20/2023 WBC 6.60 04/20/2023 ABSNEUT 4.28 04/20/2023 CMVCPY Not detected 04/20/2023 Estimated Creatinine Clearance: 61.2 mL/min (A) (based on SCr of 1.45 mg/dL (H)). documented in this encounterCommunity [facility]03-13-2024 History of Present illness Narrative* Osbaldo Magallanes MD - 04/20/2023 10:15 AM EDT DI Angelo is a 67 year old male s/p Bilateral Sequential Lung Transplant with Dr. Juarez on 07/20/2022 for COPD / A1AT, here for follow up. Donor with Risk Factor Labs: none 1-2 Mo 08/19/22 DUE: HBV viral DNA: not detected HCV Quant RNA: not detected HIV RNA viral load: 10/04/22 DOS 07/19/22: HBV viral DNA: not detected, HepBsAb: positive, HCV Quant RNA: not detected, HIV Ag/Ab: nonreactive Pre- Tx. 07/17/22: HBV viral DNA: not detected, HepBsAb: positive, HCV Quant RNA: not detected, HepCab: , HIV Ag/Ab: nonreactive MEDICAL HISTORY: COPD Bronchiectasis A1AT on augmentation therapy (proteinase inhibitor once/week) lung nodules neuropathy right foot SURGICAL HISTORY right foot hernia repair EXPLANT PATHOLOGY: FINAL DIAGNOSIS A-B. Left and right lungs, explant pneumonectomies: - Centrilobular emphysema. - Patchy organizing pneumonia with focal giant cells reaction. - Benign reactive hilar lymph nodes. C-D. Left and right donor lungs, upper lobes, wedge resections: - Small arteries with early, organizing thrombi. - No specific pathologic diagnosis. CFF/mm/07/23/2022 POST TRANSPLANT EVENTS: CMV: Donor: Negative / Recipient: Positive EBV: Donor: Negative / Recipient: Positive PGD Scores: Score T 0 = Grade 1 Score T12 = Grade 1 Score T24 = Grade 1 Score T48 = Grade 1 Score T72 = Grade 1 07/20/22 Transplanted 07/21: extubated 07/22: ID consult +streptococcus on recipient swab; transferred to [facility] 07/25: Pain, hallucinations improved. Dizzy, hypotensive w/ BP 80s/50s, high chest tube output, 500mL NSB given. 07/26: Orthostatic hypotension, 80s/50s. IVF. Repeat lactate 2.8 after 1 L IV NS. Started on midodrine. 07/28: Pain improved, continues on epidural. Persistent orthostasis, start mestinon. EKG w/ stable QTc, start SOPHIA ppx. 07/29: Hypotensive (BP 63/37), dizzy while sitting up in chair, CMET activated, BP stabilized to 117/53 w/ 500mL NSB & holding epidural. Increase mestinon dosing. Conferred w/ APMS - transition to oral pain regimen. Epidural removed. 07/30: Give dose of IVIG for hypogam. 07/31: Improvement of pain with blocks. IVIG stopped overnight due to facial flushing and redness on arm. Improvement of leukocytosis; remains on IV Zosyn. 08/02: Left large bore CT removed. Transitioned to oral pain regimen. 08/03: Pain site of former L large bore CT. CXR w/ 2 tiny pneumothoraces on right. Placed blakes x suction. 08/06: Deemed safe for discharge. Desaturation study performed- did not qualify for oxygen. Discharged with bilateral ana drains to bulb suction with follow up appointment with CTS requested. Tacrolimus level was 12.1 on 3mg in AM and 2.5mg in PM. Scheduled for lung transplant clinic on 08/11/22 with 3 week surveillance bronchoscopy scheduled for 08/13/22. BRONCHOSCOPY: 9 mo: 04/20/23 pending 6 mo: 01/19/23: AXBX 3 mo: 10/21/22: A0B0 6 wk: 09/03/22: A0B0 3 wk: 08/13/22: A0B0 DONOR SPECIFIC ANTIBODY (DSA): 04/20/23: pending 01/11/23: Donor specific HLA antibody to DQ2 was detected in the 01/10/2023 Post- Tx sample. MFI values appear to be stable, possibly increasing. 11/08/22: Donor specific HLA antibody to allelic DQ2 (DQB1*02:01, DQA*05:01) was detected in the 11/08/2022 Post-Tx sample. MFI values appear to be increasing. 10/21/22: Donor specific HLA antibody to allelic DQ2 (DQB1*02:01, DQA1*05:01) was detected in the 10/21/2022 Post-Tx sample. MFI values appear to be declining over time. 10/04/22: Donor specific HLA antibody to allelic DQ2 (DQB1*02:01, DQA1*05:01) was detected in the 10/04/2022 Post-Tx sample. MFI values appear to be stable. 09/01/22: Donor specific HLA antibody to allelic DQ2 (DQB1*02:01, DQA1*05:01) was detected 08/11/22: No Donor specific HLA antibody was detected 07/30/22: No Donor specific HLA antibody was detected ALLERGIES: Allergen Reactions Nsaids (Non-Steroid* Contraindication-Medical Surgical Penicillins Upset stomach CURRENT MEDICATIONS: Current Outpatient Medications on File Prior to Visit Medication Sig fluorometholone (FML LIQUID FILM) 0.1 % ophthalmic suspension Use 1 Drop in both eyes three times aday. predniSONE (DELTASONE) 5 mg tablet Take 1 tablet by mouth once daily. atorvastatin (LIPITOR) 10 mg tablet Take 1 tablet by mouth daily at bedtime. azithromycin (ZITHROMAX) 250 mg tablet Take 1 tablet by mouth every Tuesday, Tuesday, and Tuesday. pantoprazole DR (PROTONIX) 20 mg tablet Take 1 tablet by mouth daily at 6 am. tacrolimus IR (PROGRAF) 1 mg capsule Take 8 capsules by mouth two times a day. (Total dose is 8mg twice daily) oseltamivir (TAMIFLU) 75 mg capsule Take 1 capsule by mouth two times a day. Tamiflu emergency Rx. Take upon onset of influenza symptoms and get tested as soon as possible. sulfamethoxazole-trimethoprim (BACTRIM DS) 800-160 mg per tablet Take 1 tablet by mouth every Tuesday,Tuesday,Tuesday. valGANciclovir (VALCYTE) 450 mg tablet Take 2 tablets by mouth daily with breakfast. mycophenolate mofetil (CELLCEPT) 250 mg capsule Take 3 capsules by mouth twice daily. phosphorus (K PHOS NEUTRAL) 250 mg tablet Take 1 tablet by mouth twice daily. magnesium oxide (MAG-OX) 400 mg (241.3 mg magnesium) tablet Take 1 tablet by mouth twice daily. traMADol (ULTRAM) 50 mg tablet Take 1 tablet by mouth every 4 hours as needed for pain (for pain.). furosemide (LASIX) 40 mg tablet Take 1 tablet by mouth once daily as needed. lidocaine (LMX) 4 % cream Apply to affected area as needed (pain around incision site). (Patient taking differently: Apply 1 application to affected area as needed (pain around incision site).) acetaminophen (TYLENOL) 325 mg tablet Take 2 tablets by mouth every 6 hours as needed for pain. camphor-methyl salicyl-menthol (SALONPAS) 3.1-10-6 % ptmd Use as needed for back pain, joint pain, and pain around clamshell incision. Apply 12 hours on and 12 hours off insulin lispro (HUMALOG KWIKPEN INSULIN) 100 unit/mL Check your blood glucose three times daily before meals and inject sliding scale insulin as listed below: Administer correction insulin regardless of meal or nutrition. If blood glucose is less than 70 mg/dL implement hypoglycemia treatment orders and notify provider. If Blood Glucose (mg/dL) is <110 Give 0 units 111-150 Give 0 units 151-200 Give 2 unit 201-250 Give 4 units 251-300 Give 6 units 301-350 Give 8 units 351-400 Give 10 units >400 Give 10 units and notify physician Notify provider if 2 consecutive blood glucose values in the previous 24 hours are greater than 250mg/mL and there have been no changes to the insulin regimen in the previous 24 hours. albuterol (PROVENTIL) 2.5 mg /3 mL (0.083 %) nebulizer solution Use 3 mL via nebulizer every Tuesday,Tuesday,Tuesday. ondansetron (ZOFRAN) 4 mg tablet Take 1 tablet by mouth every 8 hours as needed for nausea/vomiting. No current facility-administered medications on file prior to visit. NEW COMPLAINTS: Patient here for 3 month follow up visit in conjunction with 9 month bronch and derm. Patient having cataract surgery on 04/28/23. Since last visit patient tested positive for Covid on 03/27/23 and treated with Molnupiravir. Patient presents today walking and on RA. Has an occasional dry cough. Denies wheezing or SOB. [facility] pulmonary rehab 3x/week. Walking for exercise as well. Afebrile. Home Spirometry readings: FEV1 2.4L and FVC 2.8L. Go FRANCA readings reviewed by MD and discussed with patient. PFTs today up 4% since last visit. Home BP 110-130s/60-70s and HR 80-100s. Today BP 134/77 and HR 87 Currently on no BP medications. Denies chest pain, palpitations, or BLE edema. Has Lasix PRN, not taking. Appetite is good. Eats 3 meals a day. Weight today up another 15lbs since last visit. Denies nausea, vomiting or ROMEO symptoms. Patient taking Protonix for reflux prevention. Moving bowels daily, denies diarrhea. Tremors improving. Sleep isn't the greatest, sleeping in recliner. Patient is doing well with medications and routine with his . ID: CMV: Donor: Negative / Recipient: Positive EBV: Donor: Negative / Recipient: Positive. Currently on Valcyte 900mg once daily, Voriconazole 200 mg completed, Ambisome 25mg completed, and Bactrim DS every Tuesday, Tuesday and Tuesday. Taking Azithromycin 250 mg and Atorvastatin 10 mg daily. REVIEW OF SYSTEMS: PAIN ASSESSMENT: Negative for pain, history of chronic pain, or current treatment for a chronic pain condition. GENERAL: No weight loss, malaise or fevers HEENT: Negative for frequent or significant headaches, No changes in hearing or vision, no nose bleeds or other nasal problems NECK: Negative for lumps, goiter, pain and significant neck swelling RESPIRATORY: Negative for cough, hemoptysis, wheezing, COPD, dyspnea or shortness of breath CARDIOVASCULAR: Negative for chest pain, leg swelling, hypertension, CHF or palpitations GI: No nausea, vomiting, or diarrhea : No history of dysuria, frequency or incontinence MUSCULOSKELETAL: Negative for joint pain or swelling, back pain or muscle pain SKIN: Negative for lesions, rash, and itching PSYCH: Negative for sleep disturbance, mood disorder and recent psychosocial stressors HEMATOLOGY/LYMPHOLOGY: Negative for prolonged bleeding, bruising easily or swollen nodes ENDOCRINE: Negative for cold or heat intolerance, polyuria, polydipsia and goiter NEURO: No history of headaches, syncope, paralysis, seizures or tremors PATIENT TRANSPLANT KARNOFSKY INDEX AND LANSKY SCALE 80% - Normal activity with effort: some symptoms of disease. Dolores Vu RN Patient Working? No, on medical disability since 2011 IMMUNIZATIONS: Hep A: 04/13/21; 07/22/21 (11/18/21) positive Hep B: 04/13/21; 07/22/21;02/24/22 (07/17/22) positive Flu vaccine: 11/18/21, 11/08/22 RSV: 12/05/22 Prevnar 20: 07/22/21 COVID 19 vaccine - Moderna ( 12/12/2020, 05/08/2020, 04/10/2020); 11/08/21, 11/08/22 Shingles: 04/19/2019, 11/16/2018 PPD/TB Quant: 04/13/21 Negative Tetanus booster: 04/13/21 RSV: 12/05/22 HEALTH MAINTENANCE: PSA: 02/24/22 0.18 needs Dermatology - 11/15/22 frozen spots on top of head, and back COLONOSCOPY: 01/30/13 ([facility]) - DISCUSSED WILL DO LOCALLY Rectal mucosa normal. Grade 1 internal hemorrhoids. Ileum normal, mucosal and submucosal vascular patter throughout the colon was normal. No polyp or mass identified, no inflammatory changes. BONE DENSITY: 11/29/22 IMPRESSION: THE LOWEST T-SCORE IS -1.5 IN THE RIGHT HIP 1) DIAGNOSIS (based on BMD alone): OSTEOPENIA ENDO CONSULT: 02/25/22 with Hortencia wylie Based on FRAX and BMD, treatment is not recommended at this time. Calcium 1200 to 1500 mg daily recommended- begin calcium carbonate 600 mg daily with food. Weight bearing exercise as tolerated recommended. Fall precautions discussed. Repeat bmd on same machine as prior around 07/2023. Continued f/u with PCP for routine health maintenance advised. POST-TRANSPLANT GERD STUDIES: ESOPHAGRAM - 11/12/22 IMPRESSION: NORMAL ESOPHAGEAL EMPTYING. ESOPHAGEAL MANOMETRY- 08/16/22 Impressions EGJOO with spasm and hypercontractile esophagus, consistent with type III achalasia. Correlate clinically with timed barium esophagram, EGD, and symptoms of dysphagia. Spastic segment is 14 cm above the LES. pH PROBE- 08/25/22 Interpretations Normal study OFF PPI therapy with acid exposure time of 0.1%. Symptom association was negative to cough. GASTRIC EMPTYING- 08/19/22 IMPRESSION: NORMAL RATE OF GASTRIC EMPTYING OF SOLID MEAL PRE-TRANSPLANT GERD STUDIES: ESOPHAGEAL MONOMETRY: 07/22/21 Interpretation / Findings LES: Normal resting pressure, complete relaxation Body of the esophagus (supine): --7 swallows with normal peirstalsis --3 swallows with hypertensive peristalsis PH PROBE: 07/22/21 Normal study. GASTRIC EMPTYIN07/23/21 NORMAL RATE OF GASTRIC EMPTYING OF SOLID MEAL. PULMONARY FUNCTION TESTING: Date 04/20/23 FVC (L) 3.10 2.96 3.96 4.98 78 FEV1 (L) 2.86 2.23 3.04 3.80 94 [id number] (L/sec) 3.26 1.16 2.55 4.47 127 Time (sec) 2.78 Date 01/19/23 <-- Reviewed by Dr. Magallanes and discussed with patient FVC (L) 2.93 2.96 3.97 4.99 73 FEV1 (L) 2.73 2.24 3.05 3.81 89 KOH85-61 (L/sec) 3.41 1.17 2.56 4.49 133 Time (sec) 3.07 Date 11/29/22 FVC (L) 2.89 2.97 3.97 4.99 72 FEV1 (L) 2.67 2.24 3.05 3.81 87 [id number] (L/sec) 3.12 1.17 2.57 4.50 121 Time (sec) 2.91 Date 10/21/22 FVC (L) 2.80 3.05 4.09 5.14 68 FEV1 (L) 2.70 2.30 3.13 3.91 86 GCS21-32 (L/sec) 4.53 1.20 2.62 4.58 173 Time (sec) 2.05 Date 10/04/22 FVC 2.85 3.06 4.09 5.14 69 FEV1 2.70 2.30 3.13 3.91 86 PSC91-34 4.59 1.20 2.62 4.59 175 Time 3.21 Date 09/01/22 FVC (L) 2.50 3.06 4.09 5.14 61 FEV1 (L) 2.37 2.31 3.14 3.92 75 WUG43-38 (L/sec) 4.02 1.20 2.62 4.59 153 Time (sec) 2.18 Date [id number] FVC (L) 2.26 3.06 4.09 5.14 55 FEV1 (L) 2.19 2.31 3.14 3.92 69 DVH39-51 (L/sec) 5.58 1.20 2.62 4.59 212 Time (sec) 1.90 Date 08/18/22 FVC (L) 2.23 3.06 4.09 5.14 54 FEV1 (L) 2.11 2.31 3.14 3.92 67 RUU00-54 (L/sec) 3.40 1.20 2.63 4.59 129 Time (sec) 2.35 Date: 08/11/22 FVC (L) 2.31 3.06 4.09 5.14 56 FEV1 (L) 1.95 2.31 3.14 3.92 62 [id number] (L/sec) 1.83 1.21 2.63 4.60 69 Time (sec) 4.59 Date: 06/02/22 Pre-Transplant FVC (L) 2.76 3.26 4.34 5.44 63 FEV1 (L) 0.81 2.45 3.32 4.14 24 BXV48-57 (L/sec) 0.24 1.21 2.64 4.61 9 Time (sec) 14.94 PORTIONS OF THIS NOTE WERE TAKEN FROM NOTE DATED [id number]. ALL THE INFORMATION BY THE RN / 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 MANAGER HAS BEEN CONFIRMED, REVIEWED AND VERIFIED BY ME. CXR 04/20/23 <-- Reviewed by Dr. Magallanes and discussed with patient No change CBC, Coags, BMP, Mg, Phos Recent Labs 04/20/23 0729 WBC 6.60 HB 11.4* HCT 37.1* PLT 280 Liver Function, Amylase, & Lipase No results for input(s): FK506 in the last 168 hours. PHYSICAL EXAMINATION: BP 134/77 Pulse 87 Temp 36.2 C (97.1 F) Resp 14 Ht 177.8 cm (5' 10) Wt 106.6 kg (235 lb) SpO2 98% BMI 33.72 kg/m General appearance: Well appearing, alert, in no acute distress, well-hydrated, well nourished. Skin: Skin color, texture, turgor normal, no suspicious rashes or lesions Head: Normocephalic, no masses, lesions, tenderness or abnormalities Eyes: Anicteric sclera. Pupils are equally round and reactive to light. Extraocular movements are intact. Ears: External ears normal, canals clear Nose/Sinuses: Nares normal, septum midline, mucosa normal, no drainage or sinus tenderness Oropharynx: Lips, mucosa, and tongue normal, teeth and gums normal, oropharynx normal Neck: Supple, no adenopathy; thyroid symmetric, normal size, no bruits Back: Normal exam Lungs: Lungs clear to auscultation. No wheezing, rhonchi, rales. Heart: RRR without murmur, gallop, or rubs. No ectopy Abdomen: Normal abdominal exam, Abdomen soft, non-tender. Bowel sounds normal. No masses, organomegaly Extremities: No deformities, edema, skin discoloration, clubbing or cyanosis. Good capillary refill. Musculoskeletal: No joint swelling, deformity, or tenderness Peripheral pulses: Normal Neuro: Gait normal. Reflexes normal and symmetric. Sensation grossly intact. 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 Did have COVID in March was treated with antivirals, actually did well, indices up today, 9 month bronch today # Encounter for [place]care [place] [address] for COPD - Lung allograft function stable - Continue prednisone 5 mg daily with no change today - Continue Cellcept 750 mg twice daily with no change today - Continue Tacrolimus 8mg every 12 hours - awaiting trough level today to guide possible dose adjustment for goal trough of 12 Current prophylaxes falling under the umbrella of aftercare following lung transplant # Antiviral CMV D-/R+ - continue Valcyte at 900 mg daily for prophylaxis of CMV, actively needed and prescribed by me for prophylaxis # Pneumocystis Prophylaxis - continue Bactrim on M//, actively needed and prescribed by me for prophylaxis # Fungal Prophylaxis - completed prophylaxis # Chronic rejection Prophylaxis - continue azithromycin actively needed and prescribed by me for prophylaxis # Cardiovascular Status - Active current and chronic essential hypertension managed by me with monitoring and lasix - Active current and chronic mixed hyperlipidemia with LDL goal <100 managed by me with atorvastatin # Gastrointestinal Status - Active current and chronic gastroesophageal reflux disease without esophagitis managed by me with proton pump inhibition # Endocrine/Bone Status - Active current and chronic steroid induced diabetes, with hyperglycemia complications managed by me with insulin - Active current and chronic steroid induced osteoporosis managed by me with vitamin D, Calcium, - Care collaborated with me here at [facility] with [facility] and Diabetes Adult [facility] groups # Renal Status - Active current and chronic stage 3 renal failure with Estimated Creatinine Clearance: 62.5 mL/min (A) (based on SCr of 1.42 mg/dL (H)). - Based on today's GFR, all renally dosed medications and renal interactions have been accounted for and medications adjusted - Electrolytes have been reviewed, specifics such as HYPERkalemia have been addressed with the coordinator and patient # Hematology/Oncology Status - Active monitoring of drug induced cytopenias/cellular aplasias, medications addressed/adjusted today - Coagulopathy - no - Age-appropriate cancer screening - yes During this patient visit I spent 45 minutes in the visit, with more than 50% of the total [id number] time of the visit in counseling / coordination of care. More specifically we discussed the patient's chest x-ray, today's lab results - most importantly immunosuppression levels and have made relevant adjustments to maintain health, wellness and stabilitypost transplant. We have coordinated with patient and consultants all follow up visits. Follow Up: 3 months with routine labs, imaging, and spirometry as well as bronchoscopy Osbaldo Magallanes MD Staff Physician [facility], Respiratory [place] [facility] [address] [place] [address], [place] [address] documented in this encounterCommunity [facility] Hospital03-[facility]24 History of Present illness Narrative* Jing Stark, Research Coordinator - 04/20/2023 9:34 AM EDT Summary: IRB # [id number] [facility] Belgica Angelo is here for IRB # [id number] [facility] Visit # V6 Belgica Angelo is here for 9 months post transplant visit. Subject was met in [facility] lab to obtain 5tubes of blood with their clinical blood draw and a urine sample. Next visit is due at 12 months months post transplant. Blood sample obtained? Yes Urine sample obtained? Yes Bronchoscopy sample obtained? Yes Jing Stark Research Coordinator Subject to continue in trial documented in this encounterCommunity [facility] Hospital03-13-[facility]24 History of Present illness Narrative* Trav Bolaños RRT - 04/20/2023 8:27 AM EDT PULM FUNCTION SMARTBLOCK: Provider: Osbaldo Magallanes MD Spirometry: 1 System: MC8 - [id number] documented in this encounterCommunity [facility] Hospital03-13-2024 History of Present illness Narrative* Fumich, Jared, RT(R) - 04/20/2023 8:00 AM EDT Radiology Service Progress Note PATIENT NAME: Belgica Angelo DATE OF SERVICE: April 20, 2023 TIME: 8:10 AM PATIENT IDENTITY VERIFICATION COMPLETED USING TWO (2) IDENTIFIERS: Name and Date of confirmedby patient verbally. FALL SCREENING: Has the patient had 2 falls in the last year or 1 fall with injury or currently using an Ambulatory Assistive Device (Walker, Cane, Wheelchair, Crutches, etc.)? No PATIENT GENDER DATA: Male PATIENT RELEVANT IMPLANT DATA REVIEWED: Not Applicable PATIENT PRESENTS WITH AN IMPLANTABLE OR ATTACHED CURATOR NATURAL HISTORY MUSEUM: No RADIOLOGY DEPARTMENT: General X-ray: Exam(s) Completed: Chest X-Ray PERIPHERAL IV DATA: Not applicable SIGNED BY: RT Cherise(R) April 20, 2023 8:10 AM documented in this encounterCommunity Memorial Hospital03-04-2024 Instructions* Patient Instructions* Evan May MD - 04/11/2023 2:58 PM EST Current Ophthalmic Meds fluorometholone (FML LIQUID FILM) 0.1 % ophthalmic suspension Use 1 Drop in both eyes three times aday. Start: Warm compresses at bedtime Both Eyes. Lid scrubs at bedtime Both Eyes. Systane Complete solution instill 1 drop 3 times daily Both Eyes. Plan Cataract Surgery with Monofocal Intraocular Lens Implant Right Eye on 04/28/2023 at [facility]. If you have any questions please contact our office at [phone]. After office hours or on the weekend, please call Dr. May on his cell phone at [phone]. documented in this encounterCommunity Memorial Hospital03-04-2024 History of Present illness Narrative* Evan May MD - 04/11/2023 2:06 PM EST ASSESSMENT/PLAN: 1. 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-related cataract, right eye - ICD9: 366.19, ICD10: H25.811 (primary diagnosis) 2. 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-related cataract, left eye - ICD9: 366.19, ICD10: H25.812 Blood pressure 121/74, pulse 88. Reviewed Dr. Juárez's examination and notes today Cataract Presurgical Documentation Cataract: Right eye (OD) then Left eye (OS) Current Visual Acuity Right Eye Distance CC 20/80 Left Eye Distance CC 20/80 Visual Function: Belgica Angelo states that the decline in vision from the cataract impedes his abilities as listed in the HPI, as well as other activities of daily living. Belgica Angelo has confirmed that he is no longer able to function adequately on a day-to-day basisbecause of his current visual condition. Further, it is my medical opinion that the cataract is the primary cause, or at least a significantly contributory cause of his visual dysfunction. With uncomplicated cataract surgery and lens implantation, it is my expectation that his visual function and quality of life will improve, significantly. The risks, benefits, alternatives, personnel and complications of cataract surgery with lens implantation were discussed with Belgica Angelo in detail. he appeared to understand and asked that I proceed with plans for surgery. Plan Cataract Surgery with Monofocal Intraocular Lens Implant Right Eye on 04/28/2023 at [facility]. 3. Punctate keratitis, bilateral - ICD9: 370.21, ICD10: H16.143 4. 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 Lid scrubs at bedtime Warm compresses at bedtime 5. 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 Hyperlipidemia, unspecified hyperlipidemia type - ICD9: 272.4, ICD10: E78.5 I have confirmed and edited as necessary the relevant HPI, ophthalmic history, ROS, and the neuro exam findings as obtained by others. I have seen and examined Belgica Angelo. I have discussed the case and the management of this patient's care with the Resident/Fellow, if applicable. I also have reviewed and agree with the assessment and plan as stated above and agree withall of its relevant components. documented in this encounterCommunity Memorial Hospital03-04-[facility]24 History of Past illness Narrative* Problem Noted Date Diagnosed Date Resolved Date 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-related cataract, right eye 04/11/2023 04/29/2023 Human immunodeficiency virus (HIV) disease 10/04/2022 04/19/2023 Generalized anxiety disorder 08/03/2022 10/04/2022 Postoperative pain 07/28/2022 Immunosuppressed status 07/26/202209/08 Current chronic use of systemic steroids 07/26/2022 10/04/2022 Atelectasis 07/23/2022 10/04/2022 Overview: 07/23/2022 Encourage PEP with deep breathing and cough. Hypophosphatemia 07/23/2022 10/04/2022 Overview: 07/23/2022 Replete phosphorus as needed. Methicillin resistant Staphy lococcus aureus colonization 07/23/2022 04/19/2023 Streptococcus pneumoniae 07/23/2022 Obesity, Class I, BMI 30-34.9 07/22/2022 10/04/2022 On mechanically assisted ventilation 07/21/2022 07/22/2022 Overview: History: Postoperative. Assessment: Currently intubated and sedated. Grade 1 airway. Plan: WTE/Bronch AM 07/21 Hypotension, unspecified 07/21/2022 Overview: History: Postoperative. Assessment: Hypotensive requiring vasopressor for hemodynamic support. Plan: Titrate Levo infusion to maintain MAP goal 70-80. See care coordination note 07/23/2022 Vasopressin infusion weaned off overnight. Stress hyperglycemia 07/21/2022 023 Overview: History: no DM history Assessment: Perioperative insulin resistance and exacerbation of hyperglycemia. Plan: RHI infusion per CVICU nomogram to maintain BG <150 mg/dL. See care coordination note 07/23/2022 Transition to sliding scale insulin for blood glucose control. Acute post-operative pain 07/21/2022 Overview: History: Postoperative. Assessment: Currently intubated and sedated. Plan: IV push fentanyl until able to use CIRCULATION LIBRARIAN. Initiate scheduled Lidocaine patches and Tylenol. Consider oxycodone IR as needed for breakthrough pain after extubation. See care coordination note 07/23/2022 Continue bupivacaine/fentanyl PCEA for pain control. Emphysema due to alpha-1-ant itrypsin deficiency 07/20/2022 10/04/2022 Overview: History: hx of A1AT deficiency with home O2 3L with rest and 4L with activity, and 3L with sleep. Assessment:07/20/2022: Bilateral lung transplantation via Clamshell incision with assistance of [facility] ECMO (Central aortic 21 Fr cannula, 26 Fr Right femoral venous drainage cannula) , MELVIN and RUL Wedge resections Plan: IS per ALD Lung transplant candidate 07/20/2022 Lung transplant planned 07/17/202209/08 Chronic respiratory failure with hypoxia and hypercapnia 02/02/2022 10/04/2022 Overview: See care coordination note Heterozygous alpha 1-antitrypsin deficiency 07/30/2021 10/04/2022 Obesity, Class II, BMI 35-39.9 04/21/2021 04/19/2023 Former smoker 04/10/2020 10/04/2022 Obesity 11/30/2017 10/04/2022 Stage 4 very severe COPD by GOLD classification 09/29/2017 10/04/2022 Overview: History: home O2 3L with rest and 4L with activity, and 3L with sleep. Assessment:07/20/2022: Bilateral lung transplantation via Clamshell incision with assistance of [facility] ECMO (Central aortic 21 Fr cannula, 26 Fr Right femoral venous drainage cannula) , MELVIN and RUL Wedge resections Plan: IS per ALD Bronchiectasis 09/29/2017 10/04/2022 Overview: See care coordination note Umbilical hernia 07/10/2012 10/04/2022 Pain in joint, ankle and foot 04/18/2012 10/04/2022 COPD (chronic obstructive pulmonary disease) 10/04/2022 Overview: See care coordination note Premature atrial contraction 07/22/2022 Overview: See care coordination note documented as of this encounter (statuses as of 04/29/2023) [facility] of Past illness Narrative* Problem Noted Date Diagnosed Date Resolved Date 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-related cataract, right eye 04/11/2023 04/29/2023 Human immunodeficiency virus (HIV) disease 10/04/2022 04/19/2023 Generalized anxiety disorder 08/03/2022 10/04/2022 Postoperative pain 07/28/2022 Immunosuppressed status 07/26/2022 08/2 09/2022 Current chronic use of systemic steroids 07/26/2022 10/04/2022 Atelectasis 07/23/2022 10/04/2022 Overview: 07/23/2022 Encourage PEP with deep breathing and cough. Hypophosphatemia 07/23/2022 10/04/2022 Overview: 07/23/2022 Replete phosphorus as needed. Methicillin resistant Staphy lococcus aureus colonization 07/23/2022 04/19/2023 Streptococcus pneumoniae 07/23/2022 Obesity, Class I, BMI 30-34.9 07/22/2022 10/04/2022 On mechanically assisted ventilation 07/21/2022 07/22/2022 Overview: History: Postoperative. Assessment: Currently intubated and sedated. Grade 1 airway. Plan: WTE/Bronch AM 07/21 Hypotension, unspecified 07/21/2022 Overview: History: Postoperative. Assessment: Hypotensive requiring vasopressor for hemodynamic support. Plan: Titrate Levo infusion to maintain MAP goal 70-80. See care coordination note 07/23/2022 Vasopressin infusion weaned off overnight. Stress hyperglycemia 07/21/2022 023 Overview: History: no DM history Assessment: Perioperative insulin resistance and exacerbation of hyperglycemia. Plan: RHI infusion per CVICU nomogram to maintain BG <150 mg/dL. See care coordination note 07/23/2022 Transition to sliding scale insulin for blood glucose control. Acute post-operative pain 07/21/2022 Overview: History: Postoperative. Assessment: Currently intubated and sedated. Plan: IV push fentanyl until able to use CIRCULATION LIBRARIAN. Initiate scheduled Lidocaine patches and Tylenol. Consider oxycodone IR as needed for breakthrough pain after extubation. See care coordination note 07/23/2022 Continue bupivacaine/fentanyl PCEA for pain control. Emphysema due to alpha-1-ant itrypsin deficiency 07/20/2022 10/04/2022 Overview: History: hx of A1AT deficiency with home O2 3L with rest and 4L with activity, and 3L with sleep. Assessment:07/20/2022: Bilateral lung transplantation via Clamshell incision with assistance of [facility] ECMO (Central aortic 21 Fr cannula, 26 Fr Right femoral venous drainage cannula) , MELVIN and RUL Wedge resections Plan: IS per ALD Lung transplant candidate 07/20/2022 Lung transplant planned 07/17/202209/08 Chronic respiratory failure with hypoxia and hypercapnia 02/02/2022 10/04/2022 Overview: See care coordination note Heterozygous alpha 1-antitrypsin deficiency 07/30/2021 10/04/2022 Obesity, Class II, BMI 35-39.9 04/21/2021 04/19/2023 Former smoker 04/10/2020 10/04/2022 Obesity 11/30/2017 10/04/2022 Stage 4 very severe COPD by GOLD classification 09/29/2017 10/04/2022 Overview: History: home O2 3L with rest and 4L with activity, and 3L with sleep. Assessment:07/20/2022: Bilateral lung transplantation via Clamshell incision with assistance of [facility] ECMO (Central aortic 21 Fr cannula, 26 Fr Right femoral venous drainage cannula) , MELVIN and RUL Wedge resections Plan: IS per ALD Bronchiectasis 09/29/2017 10/04/2022 Overview: See care coordination note Umbilical hernia 07/10/2012 10/04/2022 Pain in joint, ankle and foot 04/18/2012 10/04/2022 COPD (chronic obstructive pulmonary disease) 10/04/2022 Overview: See care coordination note Premature atrial contraction 07/22/2022 Overview: See care coordination note documented as of this encounter (statuses as of 05/19/2023) [facility] Past illness Narrative* Problem Noted Date Diagnosed Date Resolved Date 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-related cataract, right eye 04/11/2023 04/29/2023 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-related cataract, left eye 04/11/2023 05/27/2023 Human immunodeficiency virus (HIV) disease 10/04/2022 04/19/2023 Generalized anxiety disorder 08/03/2022 10/04/2022 Postoperative pain 07/28/2022 Immunosuppressed status 07/26/2022 0809/2022 Current chronic use of systemic steroids 07/26/2022 10/04/2022 Atelectasis 07/23/2022 10/04/2022 Overview: 07/23/2022 Encourage PEP with deep breathing and cough. Hypophosphatemia 07/23/2022 10/04/2022 Overview: 07/23/2022 Replete phosphorus as needed. Methicillin resistant Staphy lococcus aureus colonization 07/23/2022 04/19/2023 Streptococcus pneumoniae 07/23/2022 Obesity, Class I, BMI 30-34.9 07/22/2022 10/04/2022 On mechanically assisted ventilation 07/21/2022 07/22/2022 Overview: History: Postoperative. Assessment: Currently intubated and sedated. Grade 1 airway. Plan: WTE/Bronch AM 07/21 Hypotension, unspecified 07/21/2022 Overview: History: Postoperative. Assessment: Hypotensive requiring vasopressor for hemodynamic support. Plan: Titrate Levo infusion to maintain MAP goal 70-80. See care coordination note 07/23/2022 Vasopressin infusion weaned off overnight. Stress hyperglycemia 07/21/2022 023 Overview: History: no DM history Assessment: Perioperative insulin resistance and exacerbation of hyperglycemia. Plan: RHI infusion per CVICU nomogram to maintain BG <150 mg/dL. See care coordination note 07/23/2022 Transition to sliding scale insulin for blood glucose control. Acute post-operative pain 07/21/2022 Overview: History: Postoperative. Assessment: Currently intubated and sedated. Plan: IV push fentanyl until able to use CIRCULATION LIBRARIAN. Initiate scheduled Lidocaine patches and Tylenol. Consider oxycodone IR as needed for breakthrough pain after extubation. See care coordination note 07/23/2022 Continue bupivacaine/fentanyl PCEA for pain control. Emphysema due to alpha-1-ant itrypsin deficiency 07/20/2022 10/04/2022 Overview: History: hx of A1AT deficiency with home O2 3L with rest and 4L with activity, and 3L with sleep. Assessment:07/20/2022: Bilateral lung transplantation via Clamshell incision with assistance of VA ECMO (Central aortic 21 Fr cannula, 26 Fr Right femoral venous drainage cannula) , MELVIN and RUL Wedge resections Plan: IS per ALD Lung transplant candidate 07/20/2022 Lung transplant planned 07/17/202209/08 Chronic respiratory failure with hypoxia and hypercapnia 02/02/2022 10/04/2022 Overview: See care coordination note Heterozygous alpha 1-antitrypsin deficiency 07/30/2021 10/04/2022 Obesity, Class II, BMI 35-39.9 04/21/2021 04/19/2023 Former smoker 04/10/2020 10/04/2022 Obesity 11/30/2017 10/04/2022 Stage 4 very severe COPD by GOLD classification 09/29/2017 10/04/2022 Overview: History: home O2 3L with rest and 4L with activity, and 3L with sleep. Assessment:07/20/2022: Bilateral lung transplantation via Clamshell incision with assistance of VA ECMO (Central aortic 21 Fr cannula, 26 Fr Right femoral venous drainage cannula) , MELVIN and RUL Wedge resections Plan: IS per ALD Bronchiectasis 09/29/2017 10/04/2022 Overview: See care coordination note Umbilical hernia 07/10/2012 10/04/2022 Pain in joint, ankle and foot 04/18/2012 10/04/2022 COPD (chronic obstructive pulmonary disease) 10/04/2022 Overview: See care coordination note Premature atrial contraction 07/22/2022 Overview: See care coordination note documented as of this encounter (statuses as of 05/27/2023) [facility] Miscellaneous Notes* Telephone Encounter - Davida Painter RPh - 04/11/2023 1:22 PM EST Maximum ordered quantity per Medicare Part B restrictions is 30-day plus desired number of refills. Patient requests refill of: Requested Prescriptions Pending Prescriptions Disp Refills predniSONE (DELTASONE) 5 mg tablet 30 tablet 11 Sig: Take 1 tablet by mouth once daily. If approved, please e-script the attached order to [facility]. Thank you, Davida Painter RPh [facility] [phone] documented in this encounterCommunity [facility] Hospital02-28-2024 Miscellaneous Notes* Telephone Encounter - Eileen Cm RPh - 04/06/2023 9:35 AM EST Tacrolimus level was therapeutic at 11.5 (goal 12). Current dose is 8/8. Would recommend no change to current dose. Recheck labs in 2 weeks. Eileen Cm RP * Telephone Encounter - Magda Concepcion - 04/06/2023 8:57 AM EST Transplants: 07/20/2022 (Lung) Lab Results Component Value Date FK506 11.5 04/05/2023 CREAT 1.42 (H) 04/05/2023 K 4.5 04/05/2023 WBC 5.01 04/05/2023 ABSNEUT 2.90 04/05/2023 CMVCPY Not detected 04/05/2023 Estimated Creatinine Clearance: 60.6 mL/min (A) (based on SCr of 1.42 mg/dL (H)). tacrolimus IR (PROGRAF) 1 mg capsule Sig: Take 8 capsules by mouth two times a day. (Total dose is 8mg twice daily) documented in this encounterCommunity [facility] Hospital02-21-2024 Miscellaneous Notes* Telephone Encounter - Yeison Hernandez RN - 03/30/2023 10:20 AM EST Patient advised that he can get labs drawn on 03/25/23 if he is asymptomatic. * Telephone Encounter - Gladys Perez - 03/30/2023 10:16 AM EST Pt called wanting to know if he should still go get labs drawn due to him testing positive for COVID. documented in this encounterCommunity [facility] Hospital02-19-2024 Miscellaneous Notes* Telephone Encounter - Ina Palacios RN - 03/28/2023 8:43 AM EST Spoke with patient and . Dx with COVID yesterday. Spoke to fellow and started on molnupiravir. Holding cellcept. Symptoms are coughing and fatigue. Pulse ox 97% on RA. No shortness of breath. Advised he needs to go to ER if he develops shortness of breath, desaturations or chest pain. * Telephone Encounter - Eloise Magdaleno - 03/28/2023 8:33 AM EST Patient tested + for Covid on 03/27/23, he was prescribed Molnupiravirand and requests a call back in regards to what he needs to do. Eloise Magdaleno documented in this encounterCommunity [facility] Hospital02-18-2024 Miscellaneous Notes* Telephone Encounter - Kayleigh Higgins MD - 03/27/2023 9:13 AM EST Received message from Pulm Fellow pager stating Mr. Angelo called regarding recent diagnosis of COVID 19. I called back patient at the number listed on the page and his primary contact number - [phone]. Call went to . Left message informing patient of call back and phone number. 10:30 AM - Spoke with patient and over the phone. Patient's reports she tested positive for COVID yesterday and patient tested positive today. He is not experiencing any dyspnea at this time but does have a mild cough and fatigue. Instructed patient to hold his MMF (Cellcept) until he is able to talk to his primary transplant team on Tuesday. He should also take a course of molnupiravir.We discussed that if he becomes SOB, his pulse ox readings are low at home, he should go to the ED. 11:30 AM - Patient's was kind enough to find a [facility] nearby which has this medication in stock. Prescription for molnupiravir 800 mg q 12 h x 5 days was called over to [facility] at [address]. Phone number [phone]. Patient instructed to reach out to primary transplant team tomorrow for further guidance. All questions answered. Kayleigh Higgins MD Pulmonary & Critical Care Fellow, PGY 4 P:[phone] documented in this encounterCommunity [facility] Hospital02-16-2024 Miscellaneous Notes* Telephone Encounter - Shira Escobar RN - 03/25/2023 9:40 AM EST Called patient back regarding his 's COVID. She uses a separate bathroom and is staying on a separate floor. Gave recommendations to mask and clean shared surfaces. With any signs of symptoms patient will test and call us or on air host if positive. * Telephone Encounter - Gladys Perez - 03/25/2023 9:31 AM EST Pt called stating his tested positive for COVID and wants know if he should do anything. documented in this encounterCommunity [facility] Hospital02-14-2024 Miscellaneous Notes* Telephone Encounter - Dolores Vu RN - 03/23/2023 2:34 PM EST Spoke with patient, advised okay to proceed with cataract surgery * Telephone Encounter - Dolores Vu RN - 03/23/2023 1:59 PM EST Spoke with patient. He would like to have cataract surgery done locally, no date yet as he wanted to check with our office first. Will discuss with MD. * Telephone Encounter - Magda Concepcion - 03/23/2023 1:56 PM EST Patient called in would like to know if able to have Cataract surgery would like callback to discuss PH# [phone] documented in this encounterCommunity Memorial Hospital02-07-2024 Miscellaneous Notes* Telephone Encounter - Shira Escobar RN - 03/16/2023 9:04 AM EST Reviewed labs with Justin Cm. Patient advised no changes in medication and will have labs repeatedon 03/28. * Telephone Encounter - Eileen Cm RPh - 03/16/2023 9:01 AM EST Tacrolimus level was therapeutic at 12.2 (goal 12). Current dose is 8/8. Would recommend no change to current dose. Recheck labs in 2 weeks. Eileen Cm RP * Telephone Encounter - Magda Concepcion - 03/16/2023 6:35 AM EST Transplants: 07/20/2022 (Lung) Lab Results Component Value Date FK506 12.2 03/14/2023 CREAT 1.30 (H) 03/14/2023 K 4.7 03/14/2023 WBC 6.85 03/14/2023 ABSNEUT 4.47 03/14/2023 CMVCPY Not detected 03/14/2023 Estimated Creatinine Clearance: 66.2 mL/min (A) (based on SCr of 1.3 mg/dL (H)). tacrolimus IR (PROGRAF) 1 mg capsule Sig: Take 8 capsules by mouth two times a day. (Total dose is 8mg twice daily) documented in this encounterCommunity [facility] Hospital12-13-2023 History of Present illness Narrative* Jake Weber, BRUCE - 01/19/2023 8:28 AM EST PULM FUNCTION SMARTBLOCK: Provider: Osbaldo Magallanes MD Spirometry: 1 System: 10 - [id number] documented in this encounterCommunity Memorial Hospital12-05-2023 Miscellaneous Notes* Telephone Encounter - Gayatri Cordero RN - 01/11/2023 12:01 PM EST Labs reviewed with Chaya Anderson. Pt noted that he is already taking 6.5mg BID (changed 12/28). Patientinstructed to take 7mg of tacrolimus in the AM and 6.5mg in the PM. Patient instructed to have labschecked on 01/19 at [facility]. The following approved medication requests have been transmitted electronically. Requested Prescriptions Pending Prescriptions Disp Refills tacrolimus IR (PROGRAF) 1 mg capsule Sig: Take 7 capsules by mouth every morning AND 6 capsules every evening. tacrolimus IR (PROGRAF) 0.5 mg capsule Sig: Take 1 capsule by mouth every evening. Gayatri Cordero RN * Telephone Encounter - Eileen Cm RPh - 01/11/2023 10:32 AM EST Tacrolimus level was subtherapeutic at 9.4 (goal 12). Current dose is 6.5/6. Would recommend increasing dose to 6.5/6.5. Recheck labs in 2 weeks. Eileen Cm RPh * Telephone Encounter - Magda Concepcion - 01/11/2023 10:14 AM EST Transplants: 07/20/2022 (Lung) Lab Results Component Value Date FK506 9.4 01/10/2023 CREAT 1.10 01/10/2023 K 4.4 01/10/2023 WBC 6.80 01/10/2023 ABSNEUT 5.12 01/10/2023 CMVCPY Not detected 01/10/2023 tacrolimus IR (PROGRAF) 0.5 mg capsule Sig: Take 1 capsule by mouth two times a day. tacrolimus IR (PROGRAF) 1 mg capsule Sig: Take 6 capsules by mouth two times a day. Take in addition to Tacrolimus 0.5mg capsule in the morning documented in this encounterCommunity [facility]23 Miscellaneous Notes* Telephone Encounter - Teresa Salazar LPN - 12/29/2022 4:54 PM EST Faxed orders signed by Dionna Arreaga PA-C to [facility] for nebulizer supplies andalbuterol 0.083%. Teresa Salazar LPN documented in this encounterCommunity [facility]11-21-2023 Miscellaneous Notes* Telephone Encounter - Shira Escobar RN - 12/28/2022 1:20 PM EST Labs reviewed with Justin Huang. Patient instructed to increase Prograf to 6.5 mg in the morning and6.5 mg in the evening. Advised patient to have labs redrawn on 01/10. The following approved medication requests have been transmitted electronically. Requested Prescriptions Pending Prescriptions Disp Refills tacrolimus IR (PROGRAF) 0.5 mg capsule Sig: Take 1 capsule by mouth two times a day. Shira Escobar RN * Telephone Encounter - Shukri Huang RPh - 12/28/2022 11:14 AM EST Tacrolimus level was subtherapeutic at 7.8 (goal ~12). Current dose is 6.5/6. Would recommend increasing dose to 6.5/6.5 . Recheck labs in 2 weeks. Shukri Huang RPh * Telephone Encounter - Itzel Nunez - 12/28/2022 8:19 AM EST Transplants: 07/20/2022 (Lung) Lab Results Component Value Date FK506 7.8 12/27/2022 CREAT 0.99 12/27/2022 K 4.4 12/27/2022 WBC 7.82 12/27/2022 ABSNEUT 5.59 12/27/2022 CMVCPY Not detected 12/13/2022 tacrolimus IR (PROGRAF) 1 mg capsule 360 capsule 11 11/30/2022 tacrolimus IR (PROGRAF) 0.5 mg capsule 30 capsule 11 11/30/2022 documented in this encounterCommunity [facility] Hospital11-13-2023 Miscellaneous Notes* Telephone Encounter - Ina Palacios RN - 12/20/2022 11:22 AM EST Spoke with patient regarding cough. States for the past few weeks he has had a cough with clear phlegm. No other cold symptoms. No fevers. States he was having this cough at his last appointment too. Advised that he should continue albuterol treatments and he can take OTC cough suppressant. Patient is scheduled for OPD and cough in 3 weeks. * Telephone Encounter - Eloise Magdaleno - 12/20/2022 11:04 AM EST Patient states he has been coughing for about one month, and requests what he can take. Eloise Magdaleno documented in this encounterCommunity [facility] Hospital11-08-2023 Miscellaneous Notes* Telephone Encounter - Shukri Huang RPh - 12/15/2022 9:11 AM EST Tacrolimus level was therapeutic at 11.3 (goal 10-12). Current dose is 6.5/6. Would recommend no change to current dose. Recheck labs in 2 weeks. Shukri Huang RPh * Telephone Encounter - Itzel Nunez - 12/15/2022 8:38 AM EST Transplants: 07/20/2022 (Lung) Lab Results Component Value Date FK506 11.3 12/13/2022 CREAT 0.94 12/13/2022 K 4.7 12/13/2022 WBC 6.93 12/13/2022 ABSNEUT 4.78 12/13/2022 CMVCPY Not detected 12/13/2022 tacrolimus IR (PROGRAF) 1 mg capsule 360 capsule 11 11/30/2022 tacrolimus IR (PROGRAF) 0.5 mg capsule 30 capsule 11 11/30/2022 documented in this encounterCommunity [facility] Hospital10-23-2023 Miscellaneous Notes* Telephone Encounter - Shira Escobar RN - 11/29/2022 5:03 PM EDT Labs reviewed with . Patient instructed to increase Prograf to 6.5 mg in the morning and6 mg in the evening. Advised patient to have labs redrawn on 12/13. The following approved medication requests have been transmitted electronically. Requested Prescriptions Pending Prescriptions Disp Refills tacrolimus IR (PROGRAF) 1 mg capsule Sig: Take 6 capsules by mouth two times a day. tacrolimus IR (PROGRAF) 0.5 mg capsule 90 capsule 3 Sig: Take 1 capsule by mouth every morning. Shira Escobar RN documented in this encounterCommunity [facility] Hospital10-23-2023 History of Present illness Narrative* Osbaldo Magallanes MD - 11/29/2022 10:30 AM EDT DI Angelo is a 67 year old male s/p Bilateral Sequential Lung Transplant with Dr. Juarez on 07/20/2022 for COPD / A1AT, here for follow up. Donor with Risk Factor Labs: none 1-2 Mo 08/19/22 DUE: HBV viral DNA: not detected HCV Quant RNA: not detected HIV RNA viral load: 10/04/22 DOS 07/19/22: HBV viral DNA: not detected, HepBsAb: positive, HCV Quant RNA: not detected, HIV Ag/Ab: nonreactive Pre- Tx. 07/17/22: HBV viral DNA: not detected, HepBsAb: positive, HCV Quant RNA: not detected, HepCab: , HIV Ag/Ab: nonreactive MEDICAL HISTORY: COPD Bronchiectasis A1AT on augmentation therapy (proteinase inhibitor once/week) lung nodules neuropathy right foot SURGICAL HISTORY right foot hernia repair EXPLANT PATHOLOGY: FINAL DIAGNOSIS A-B. Left and right lungs, explant pneumonectomies: - Centrilobular emphysema. - Patchy organizing pneumonia with focal giant cells reaction. - Benign reactive hilar lymph nodes. C-D. Left and right donor lungs, upper lobes, wedge resections: - Small arteries with early, organizing thrombi. - No specific pathologic diagnosis. CFF/mm/07/23/2022 POST TRANSPLANT EVENTS: CMV: Donor: Negative / Recipient: Positive EBV: Donor: Negative / Recipient: Positive PGD Scores: Score T 0 = Grade 1 Score T12 = Grade 1 Score T24 = Grade 1 Score T48 = Grade 1 Score T72 = Grade 1 07/20/22 Transplanted 07/21: extubated 07/22: ID consult +streptococcus on recipient swab; transferred to [facility] 07/25: Pain, hallucinations improved. Dizzy, hypotensive w/ BP 80s/50s, high chest tube output, 500mL NSB given. 07/26: Orthostatic hypotension, 80s/50s. IVF. Repeat lactate 2.8 after 1 L IV NS. Started on midodrine. 07/28: Pain improved, continues on epidural. Persistent orthostasis, start mestinon. EKG w/ stable QTc, start SOPHIA ppx. 07/29: Hypotensive (BP 63/37), dizzy while sitting up in chair, CMET activated, BP stabilized to 117/53 w/ 500mL NSB & holding epidural. Increase mestinon dosing. Conferred w/ APMS - transition to oral pain regimen. Epidural removed. 07/30: Give dose of IVIG for hypogam. 07/31: Improvement of pain with blocks. IVIG stopped overnight due to facial flushing and redness on arm. Improvement of leukocytosis; remains on IV Zosyn. 08/02: Left large bore CT removed. Transitioned to oral pain regimen. 08/03: Pain site of former L large bore CT. CXR w/ 2 tiny pneumothoraces on right. Placed blakes x suction. 08/06: Deemed safe for discharge. Desaturation study performed- did not qualify for oxygen. Discharged with bilateral ana drains to bulb suction with follow up appointment with CTS requested. Tacrolimus level was 12.1 on 3mg in AM and 2.5mg in PM. Scheduled for lung transplant clinic on 08/11/22 with 3 week surveillance bronchoscopy scheduled for 08/13/22. BRONCHOSCOPY: ?? AIRWAY, airway MD: ?? 3 mo: 10/21/22: A0B0 6 wk: 09/03/22: A0B0 3 wk: 08/13/22: A0B0 DONOR SPECIFIC ANTIBODY (DSA): 11/08/22: Donor specific HLA antibody to allelic DQ2 (DQB1*02:01, DQA*05:01) was detected in the 11/08/2022 Post-Tx sample. MFI values appear to be increasing. 10/21/22: Donor specific HLA antibody to allelic DQ2 (DQB1*02:01, DQA1*05:01) was detected in the 10/21/2022 Post-Tx sample. MFI values appear to be declining over time. 10/04/22: Donor specific HLA antibody to allelic DQ2 (DQB1*02:01, DQA1*05:01) was detected in the 10/04/2022 Post-Tx sample. MFI values appear to be stable. 09/01/22: Donor specific HLA antibody to allelic DQ2 (DQB1*02:01, DQA1*05:01) was detected 08/11/22: No Donor specific HLA antibody was detected 07/30/22: No Donor specific HLA antibody was detected ALLERGIES: Allergen Reactions Nsaids (Non-Steroid* Contraindication-Medical Surgical Penicillins Upset stomach GI Upset CURRENT MEDICATIONS: Current Outpatient Medications on File Prior to Visit Medication Sig tacrolimus IR (PROGRAF) 1 mg capsule Take 6 capsules by mouth every morning AND 5 capsules every evening. sulfamethoxazole-trimethoprim (BACTRIM DS) 800-160 mg per tablet Take 1 tablet by mouth every Tuesday,Tuesday,Tuesday. valGANciclovir (VALCYTE) 450 mg tablet Take 2 tablets by mouth daily with breakfast. mycophenolate mofetil (CELLCEPT) 250 mg capsule Take 3 capsules by mouth twice daily. pantoprazole DR (PROTONIX) 20 mg tablet Take 1 tablet by mouth DAILY (6 AM). predniSONE (DELTASONE) 5 mg tablet Take 1 tablet by mouth once daily. phosphorus (K PHOS NEUTRAL) 250 mg tablet Take 1 tablet by mouth twice daily. magnesium oxide (MAG-OX) 400 mg (241.3 mg magnesium) tablet Take 1 tablet by mouth twice daily. atorvastatin (LIPITOR) 10 mg tablet Take 1 tablet by mouth daily at bedtime. azithromycin (ZITHROMAX) 250 mg tablet Take 1 tablet by mouth every Tuesday,Tuesday,Tuesday. traMADol (ULTRAM) 50 mg tablet Take 1 tablet by mouth every 4 hours as needed for pain (for pain.). acetaminophen (TYLENOL) 325 mg tablet Take 2 tablets by mouth every 6 hours as needed for pain. albuterol (PROVENTIL) 2.5 mg /3 mL (0.083 %) nebulizer solution Use 3 mL via nebulizer every Tuesday,Tuesday,Tuesday. ondansetron (ZOFRAN) 4 mg tablet Take 1 tablet by mouth every 8 hours as needed for nausea/vomiting. furosemide (LASIX) 40 mg tablet Take 1 tablet by mouth once daily as needed. lidocaine (LMX) 4 % cream Apply to affected area as needed (pain around incision site). (Patient taking differently: Apply 1 application to affected area as needed (pain around incision site).) camphor-methyl salicyl-menthol (SALONPAS) 3.1-10-6 % ptmd Use as needed for back pain, joint pain, and pain around clamshell incision. Apply 12 hours on and 12 hours off insulin lispro (HUMALOG KWIKPEN INSULIN) 100 unit/mL Check your blood glucose three times daily before meals and inject sliding scale insulin as listed below: Administer correction insulin regardless of meal or nutrition. If blood glucose is less than 70 mg/dL implement hypoglycemia treatment orders and notify provider. If Blood Glucose (mg/dL) is <110 Give 0 units 111-150 Give 0 units 151-200 Give 2 unit 201-250 Give 4 units 251-300 Give 6 units 301-350 Give 8 units 351-400 Give 10 units >400 Give 10 units and notify physician Notify provider if 2 consecutive blood glucose values in the previous 24 hours are greater than 250mg/mL and there have been no changes to the insulin regimen in the previous 24 hours. No current facility-administered medications on file prior to visit. NEW COMPLAINTS: Patient here for 1 month follow up visit in conjunction with BMD. Three month bronch result A0B0. 11/12/22 esophogram done showing normal esophageal emptying. Patient presents today walking with cane and on RA. Patient endorses intermittent cough with clear sputum. Denies wheezing or SOB. Goes to pulmonary rehab 3x/week. Walking for exercise as well. Afebrile. Home Spirometry readings: FEV1 2.2-2.4L and FVC 2.4-2.6L. Go FRANCA readings reviewed by MD and discussed with patient. PFTs today stable since last visit. Incisions clam shell healing well. Home BP 110-130s/60-70s and HR 80-100s. Today BP 128/82 and HR 100. Currently on no BP medications.Denies chest pain, palpitations, or BLE edema. Has Lasix PRN, not taking. Appetite is good. Eats 3 meals a day. Weight today stable since last visit. Denies nausea, vomitingor ROMEO symptoms. Patient taking Protonix for reflux prevention. Previously patient states at time when he eats or takes pills it feels like something is laying in this throat - feels this is better. Has a EGD with botox scheduled for 11/12/22. Moving bowels daily, denies diarrhea. Tremors improving. Sleep isn't the greatest, sleeping in recliner. Patient is doing well with medications and routine with his . ID: CMV: Donor: Negative / Recipient: Positive EBV: Donor: Negative / Recipient: Positive. Currently on Valcyte 900mg once daily, Voriconazole 200 mg twice daily, Ambisome 25mg nebulized on (x 1 week), and Bactrim DS every Tuesday, Tuesday and Tuesday. Taking Azithromycin 250 mg and Atorvastatin 10 mg daily. REVIEW OF SYSTEMS: GENERAL: No weight loss, no malaise or fevers HEENT: Negative for frequent or significant headaches, No changes in hearing or vision, no nose bleeds or other nasal problems NECK: Negative for lumps, goiter, pain and significant neck swelling RESPIRATORY: Negative for \hemoptysis, wheezing, COPD, dyspnea or shortness of breath,+ cough with clear sputum CARDIOVASCULAR: Negative for chest pain, leg swelling, hypertension, CHF or palpitations GI: No nausea, vomiting, or diarrhea : No history of dysuria, frequency or incontinence MUSCULOSKELETAL: Negative for joint pain or swelling, back pain or muscle pain SKIN: Negative for lesions, rash, and itching PSYCH: Negative for sleep disturbance, mood disorder and recent psychosocial stressors HEMATOLOGY/LYMPHOLOGY: Negative for prolonged bleeding, bruising easily or swollen nodes ENDOCRINE: Negative for cold or heat intolerance, polyuria, polydipsia and goiter NEURO: No history of headaches, syncope, paralysis, seizures or tremors PATIENT TRANSPLANT KARNOFSKY INDEX AND LANSKY SCALE 80% - Normal activity with effort: some symptoms of disease. Patient Working? No, on medical disability since 2011 IMMUNIZATIONS: Hep A: 04/13/21; 07/22/21 (11/18/21) positive Hep B: 04/13/21; 07/22/21;02/24/22 (07/17/22) positive Flu vaccine: 11/18/21, 11/08/22 Prevnar 20: 07/22/21 COVID 19 vaccine - Moderna ( 12/12/2020, 05/08/2020, 04/10/2020); 11/18/21 Shingles: 04/19/2019, 11/16/2018 PPD/TB Quant: 04/13/21 Negative Tetanus booster: 04/13/21 HEALTH MAINTENANCE: PSA: 02/24/22 0.18 Dermatology - 11/15/22 frozen spots on top of head, and back COLONOSCOPY: 01/30/13 ([facility]) Rectal mucosa normal. Grade 1 internal hemorrhoids. Ileum normal, mucosal and submucosal vascular patter throughout the colon was normal. No polyp or mass identified, no inflammatory changes. BONE DENSITY: 07/22/21 PENDING 11/29/22 THE LOWEST T-SCORE IS -1.4 IN THE LEFT HIP ENDO CONSULT: 02/25/22 with A.Kate Based on FRAX and BMD, treatment is not recommended at this time. Calcium 1200 to 1500 mg daily recommended- begin calcium carbonate 600 mg daily with food. Weight bearing exercise as tolerated recommended. Fall precautions discussed. Repeat bmd on same machine as prior around 07/2023. Continued f/u with PCP for routine health maintenance advised. POST-TRANSPLANT GERD STUDIES: ESOPHAGRAM - 11/12/22 IMPRESSION: NORMAL ESOPHAGEAL EMPTYING. ESOPHAGEAL MANOMETRY- 08/16/22 Impressions EGJOO with spasm and hypercontractile esophagus, consistent with type III achalasia. Correlate clinically with timed barium esophagram, EGD, and symptoms of dysphagia. Spastic segment is 14 cm above the LES. pH PROBE- 08/25/22 Interpretations Normal study OFF PPI therapy with acid exposure time of 0.1%. Symptom association was negative to cough. GASTRIC EMPTYING- 08/19/22 IMPRESSION: NORMAL RATE OF GASTRIC EMPTYING OF SOLID MEAL PRE-TRANSPLANT GERD STUDIES: ESOPHAGEAL MONOMETRY: 07/22/21 Interpretation / Findings LES: Normal resting pressure, complete relaxation Body of the esophagus (supine): --7 swallows with normal peirstalsis --3 swallows with hypertensive peristalsis PH PROBE: 07/22/21 Normal study. GASTRIC EMPTYIN07/23/21 NORMAL RATE OF GASTRIC EMPTYING OF SOLID MEAL. PULMONARY FUNCTION TESTING: Date 11/29/22 FVC (L) 2.89 2.97 3.97 4.99 72 FEV1 (L) 2.67 2.24 3.05 3.81 87 [id number] (L/sec) 3.12 1.17 2.57 4.50 121 Time (sec) 2.91 Date 10/21/22 FVC (L) 2.80 3.05 4.09 5.14 68 FEV1 (L) 2.70 2.30 3.13 3.91 86 [id number] (L/sec) 4.53 1.20 2.62 4.58 173 Time (sec) 2.05 Date 10/04/22 FVC 2.85 3.06 4.09 5.14 69 FEV1 2.70 2.30 3.13 3.91 86 [id number] 4.59 1.20 2.62 4.59 175 Time 3.21 Date 09/01/22 FVC (L) 2.50 3.06 4.09 5.14 61 FEV1 (L) 2.37 2.31 3.14 3.92 75 DBL68-74 (L/sec) 4.02 1.20 2.62 4.59 153 Time (sec) 2.18 Date [id number] FVC (L) 2.26 3.06 4.09 5.14 55 FEV1 (L) 2.19 2.31 3.14 3.92 69 QBU57-06 (L/sec) 5.58 1.20 2.62 4.59 212 Time (sec) 1.90 Date 08/18/22 FVC (L) 2.23 3.06 4.09 5.14 54 FEV1 (L) 2.11 2.31 3.14 3.92 67 YEN14-97 (L/sec) 3.40 1.20 2.63 4.59 129 Time (sec) 2.35 Date: 08/11/22 FVC (L) 2.31 3.06 4.09 5.14 56 FEV1 (L) 1.95 2.31 3.14 3.92 62 [id number] (L/sec) 1.83 1.21 2.63 4.60 69 Time (sec) 4.59 Date: 06/02/22 Pre-Transplant FVC (L) 2.76 3.26 4.34 5.44 63 FEV1 (L) 0.81 2.45 3.32 4.14 24 [id number] (L/sec) 0.24 1.21 2.64 4.61 9 Time (sec) 14.94 PORTIONS OF THIS NOTE WERE TAKEN FROM NOTE DATED [id number]. ALL THE INFORMATION BY THE RN / 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 MANAGER HAS BEEN CONFIRMED, REVIEWED AND VERIFIED BY ME. CXR November 29, 2022 <-- Reviewed by Dr. Magallanes and discussed with patient No change CBC, Coags, BMP, Mg, Phos Recent Labs 11/29/22716 WBC 5.96 HB 11.9* HCT 39.5 PLT 359 NA 140 K 4.5 CHLOR 104 CO2 25 BUN 21 CREAT 0.95 GLUC 92 CA 9.4 Liver Function, Amylase, & Lipase Recent Labs 11/29/22716 TPROT 6.6 ALB 4.5 ALT 16 AST 24 ALKPHOS 93 TBILI 1.0 No results for input(s): FK506 in the last 168 hours. PHYSICAL EXAMINATION: BP 128/82 Pulse 100 Temp 36.6 C (97.8 F) Resp 16 Ht 177.8 cm (5' 10) Wt 92.5 kg (204 lb) SpO2 96% BMI 29.27 kg/m General appearance: Well appearing, alert, in no acute distress, well-hydrated, well nourished. Skin: Skin color, texture, turgor normal, no suspicious rashes or lesions Head: Normocephalic, no masses, lesions, tenderness or abnormalities Eyes: Anicteric sclera. Pupils are equally round and reactive to light. Extraocular movements are intact. Ears: External ears normal, canals clear Nose/Sinuses: Nares normal, septum midline, mucosa normal, no drainage or sinus tenderness Oropharynx: Lips, mucosa, and tongue normal, teeth and gums normal, oropharynx normal Neck: Supple, no adenopathy; thyroid symmetric, normal size, no bruits Back: Normal exam Lungs: Lungs clear to auscultation. No wheezing, rhonchi, rales. Heart: RRR without murmur, gallop, or rubs. No ectopy Abdomen: Normal abdominal exam, Abdomen soft, non-tender. Bowel sounds normal. No masses, organomegaly Extremities: No deformities, edema, skin discoloration, clubbing or cyanosis. Good capillary refill. Musculoskeletal: No joint swelling, deformity, or tenderness Peripheral pulses: Normal Neuro: Gait normal. Reflexes normal and symmetric. Sensation grossly intact. 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 # Encounter for aftercare following bilateral Lung Transplant on for COPD - Lung allograft function stable - Continue prednisone 5 mg daily with no change today - Continue Cellcept 750 mg twice daily with no change today - Continue Tacrolimus every 12 hours - awaiting trough level today to guide possible dose adjustment for goal trough of 12 Current prophylaxes falling under the umbrella of aftercare following lung transplant # Antiviral CMV D-/R+ - continue Valcyte at 900 mg daily for prophylaxis of CMV, actively needed and prescribed by me for prophylaxis # Pneumocystis Prophylaxis - continue Bactrim on M/W/F, actively needed and prescribed by me for prophylaxis # Fungal Prophylaxis - completed prophylaxis # Chronic rejection Prophylaxis - continue azithromycin actively needed and prescribed by me for prophylaxis # Cardiovascular Status - Active current and chronic essential hypertension managed by me with monitoring and lasix - Active current and chronic mixed hyperlipidemia with LDL goal <100 managed by me with atorvastatin # Gastrointestinal Status - Active current and chronic gastroesophageal reflux disease without esophagitis managed by me with proton pump inhibition # Endocrine/Bone Status - Active current and chronic steroid induced diabetes, with hyperglycemia complications managed by me with insulin - Active current and chronic steroid induced osteoporosis managed by me with vitamin D, Calcium, - Care collaborated [facility] with Endocrine Bone Health and Diabetes Adult Health groups # Renal Status - Active current and chronic stage 1 renal failure with Estimated Creatinine Clearance: 87.4 mL/min (based on SCr of 0.95 mg/dL). - Based on today's GFR, all renally dosed medications and renal interactions have been accounted for and medications adjusted - Electrolytes have been reviewed, specifics such as HYPERkalemia have been addressed with the coordinator and patient # Hematology/Oncology Status - Active monitoring of drug induced cytopenias/cellular aplasias, medications addressed/adjusted today - Coagulopathy - no - Age-appropriate cancer screening - yes During this patient visit I spent 45 minutes in the visit, with more than 50% of the total gmea-cv-[id number] time of the visit in counseling / coordination of care. More specifically we discussed the patient's chest x-ray, today's lab results - most importantly immunosuppression levels and have made relevant adjustments to maintain health, wellness and stabilitypost transplant. We have coordinated with patient and consultants all follow up visits. Follow Up: 2 months with routine labs, imaging, and spirometry as well as bronchoscopy Osbaldo Magallanes MD Staff Physician [facility], Respiratory [facility] [address] [place] [address], [place] [phone] documented in this encounterCommunity [facility]10-23-2023 History of Present illness Narrative* Domi Clemente RRT - 11/29/2022 9:32 AM EDT PULM FUNCTION SMARTBLOCK: Provider: Shay Florentino MD Spirometry: 1 System: 5 - [id number] documented [facility] this [facility] History of Present illness Narrative* Yandel Shah Tech - 11/29/2022 9:30 AM EDT Radiology Service Progress Note PATIENT NAME: Belgica Angelo DATE OF SERVICE: November 29, 2022 TIME: 8:25 AM PATIENT IDENTITY VERIFICATION COMPLETED USING TWO (2) IDENTIFIERS: Name and Date of confirmedby patient verbally. FALL SCREENING: Has the patient had 2 falls in the last year or 1 fall with injury or currently using an Ambulatory Assistive Device (Walker, Cane, Wheelchair, Crutches, etc.)? No PATIENT GENDER DATA: Male PATIENT RELEVANT IMPLANT DATA REVIEWED: Not Applicable RADIOLOGY DEPARTMENT: Bone Density PERIPHERAL IV DATA: Not applicable SIGNED BY: Salinas Baker November 29, 2022 8:25 AM documented in this encounterCommunity [facility]10-23-2023 History of Present illness Narrative* Jennifer Desouza Tech - 11/29/2022 8:00 AM EDT Radiology Service Progress Note PATIENT NAME: Belgica Angelo DATE OF SERVICE: November 29, 2022 TIME: 8:54 AM PATIENT IDENTITY VERIFICATION COMPLETED USING TWO (2) IDENTIFIERS: Name and Date of confirmedby patient verbally. FALL SCREENING: Has the patient had 2 falls in the last year or 1 fall with injury or currently using an Ambulatory Assistive Device (Walker, Cane, Wheelchair, Crutches, etc.)? No PATIENT GENDER DATA: Male PATIENT RELEVANT IMPLANT DATA REVIEWED: Not Applicable RADIOLOGY DEPARTMENT: General X-ray: Exam(s) Completed: Chest X-Ray PERIPHERAL IV DATA: Not applicable SIGNED BY: Salinas Hurtado November 29, 2022 8:54 AM documented in this encounterCommunity [facility]10-16-2023 Miscellaneous Notes* Telephone Encounter - Bety Burrell RN - 11/22/2022 9:42 AM EDT Patient has been having a cough since his EGD. States he has no fever, clear sputum, his home spirometry is going up from previously. Advised patient it could be irritation or trapped sputum. Asked him to do albuterol treatment twice daily to see if it is helpful. He has appointment on November 29 and will assess. Advised if there were any changes prior to call us. Patient received his covid and flu vaccines. Advised we are recommending RSV as well which he will try to get locally. * Telephone Encounter - Gladys Perez - 11/22/2022 9:32 AM EDT Patient called and would like to ask Cat a few questions, did not elaborate. documented in this encounterCommunity [facility]10-[facility]23 Miscellaneous Notes* Telephone Encounter - Eileen Cm RPh - 11/16/2022 9:05 AM EDT Tacrolimus level was therapeutic at 11.4 (goal 12). Current dose is 6/5. Would recommend no change to current dose. Recheck labs in 2 weeks. Eileen Cm RPh * Telephone Encounter - Magda Concepcion - 11/16/2022 8:34 AM EDT Transplants: 07/20/2022 (Lung) Lab Results Component Value Date FK506 11.4 11/15/2022 CREAT 0.90 11/15/2022 K 4.3 11/15/2022 WBC 6.43 11/15/2022 ABSNEUT 4.69 11/15/2022 CMVCPY Not detected 11/15/2022 Disp Refills Start End tacrolimus IR (PROGRAF) 1 mg capsule Sig: Take 6 capsules by mouth every morning AND 5 capsules every evening. documented in this encounterCommunity [facility]10-06-2023 Nurse Note* Mario Linares LPN - 11/12/2022 3:11 PM EDT AMBULATORY PATIENT EDUCATION NOTE TOPIC: GI PROCEDURES: Esophagogastroduodenoscopy(EGD) for control of bleeding,dilation(any means),imaging,tube placement READINESS TO LEARN INSTRUCTION PROVIDED TO: Patient and family member COGNITIVE ABILITY: Alert and oriented PTED MOTIVATION TO LEARN: Interested FAMILY SUPPORT: High - Very involved in pt care IPATIENT LEARNS BEST BY: Individual Instruction Written Instruction - Hand-outs Verbal Instruction FACTORS AFFECTING LEARNING: None PHYSICAL LIMITATIONS AFFECTING LEARNING: None LEARNING RESPONSE METHOD OF INSTRUCTION: Individual instruction PATIENT / FAMILY RESPONSE: Verbalizes understanding of: WORSENING CONDITION- Signs and symptoms of aworsening condition that warrant a call to the physician FOLLOW-UP PLAN: Recommend - Recommend continued instruction and follow up as directed SUPPLEMENTAL MATERIAL: Procedure Discharge Instructions REFERRAL (RECOMMENDATION): None * Jessica Flores RN - 11/12/2022 2:01 PM EDT PRE OP LEARNING ASSESSMENT PROCEDURE/SURGERY: GI PROCEDURES: EGD READINESS TO LEARN COGNITIVE ABILITY: Alert and oriented MOTIVATION TO LEARN: Interested FAMILY SUPPORT: High - Very involved in pt care PATIENT LEARNS BEST BY: Individual Instruction FACTORS AFFECTING LEARNING: None PHYSICAL LIMITATIONS AFFECTING LEARNING: None Electronically Signed By: Jessica Flores RN In Department: GASTROENTEROLOGY documented in this encounterCommunity [facility]10-06-2023 History of Present illness Narrative* ChandanaAmber juarez RT(R) - 11/12/2022 9:20 AM EDT Radiology Service Progress Note PATIENT NAME: Belgica Angelo DATE OF SERVICE: November 12, 2022 TIME: 9:27 AM PATIENT IDENTITY VERIFICATION COMPLETED USING TWO (2) IDENTIFIERS: Name and Date of confirmedby patient verbally. FALL SCREENING: Has the patient had 2 falls in the last year or 1 fall with injury or currently using an Ambulatory Assistive Device (Walker, Cane, Wheelchair, Crutches, etc.)? No PATIENT GENDER DATA: Male PATIENT RELEVANT IMPLANT DATA REVIEWED: Not Applicable RADIOLOGY DEPARTMENT: General X-ray: Exam(s) Completed: GI/ Procedure(s): Esophogram with barium contrast PERIPHERAL IV DATA: Not applicable SIGNED BY: RT Heath([place]) November 12, 2022 9:27 AM documented in this encounterCommunity [facility]10-03-2023 Miscellaneous Notes* Telephone Encounter - Gayatri Cordero RN - 11/09/2022 10:57 AM EDT Labs reviewed with Chaya Anderson. Patient instructed to take 6mg of tacrolimus in the AM and 5mg in thePM. Patient instructed to have labs checked on 11/15. The following approved medication requests have been transmitted electronically. Requested Prescriptions Pending Prescriptions Disp Refills tacrolimus IR (PROGRAF) 1 mg capsule 990 capsule 3 Sig: Take 6 capsules by mouth every morning AND 5 capsules every evening. Gayatri Cordero RN * Telephone Encounter - Shukri Huang RPh - 11/09/2022 10:19 AM EDT Tacrolimus level was subtherapeutic after stopping voriconazole at 7.4 (goal 10- 12). Current dose is 5/4. Would recommend increasing dose to 6/5. Recheck labs in 1 week. Shukri Huang RPh * Telephone Encounter - Magda Concepcion - 11/09/2022 9:27 AM EDT Transplants: 07/20/2022 (Lung) Lab Results Component Value Date FK506 7.4 11/08/2022 CREAT 0.74 11/08/2022 K 4.1 11/08/2022 WBC 9.43 11/08/2022 ABSNEUT 8.11 (H) 11/08/2022 CMVCPY Not detected 11/08/2022 tacrolimus IR (PROGRAF) 1 mg capsule Sig: Take 5 capsules by mouth every morning AND 4 capsules every evening. documented in this encounterCommunity [facility] Hospital09-29-2023 Miscellaneous Notes* Telephone Encounter - Sharmin Kenny RN - 11/05/2022 1:43 PM EDT GI Pre-Procedure Spoke with patient: Yes Confirmed date scheduled and patient report time: Yes Procedure Planned:Esophagogastroduodenoscopy(EGD) with or without biopies based on clinical findings, removal of polyps or lesions Is the patient on blood thinners?no Procedure Instructions given to patient: Yes, and they verbalized their understanding of instructions given Patient instructed to take prescribed preparation prior to procedure:Yes, and they verbalized theirunderstanding of instructions given Patient instructed to have family/friend present for procedure transport home:Patient/patient customer engagement representative was told that if they do not have a responsible adult accompany them to their procedure; and remain in the endoscopy area until they are discharged; that their procedure cannot be done with s edation or anesthesia and may be cancelled. and They verbalized their understanding and agree to have a responsible adult accompany the patient to their procedure and remain in the endoscopy area. 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 Type of instruction given: Verbal by telephone contact. Sharmin Kenny RN documented in this encounterCommunity [facility] Hospital09-26-2023 Miscellaneous Notes* Addendum Note - Shay Florentino MD - 11/02/2022 1:50 PM EDTAddended by: MAURIZIO FLORENTINO on: 11/02/2022 01:50 PM Modules accepted: Orders * Addendum Note - Ina Palacios RN - 11/02/2022 1:14 PM EDTAddended by: INA PALACIOS on: 11/02/2022 01:14 PM Modules accepted: Orders * Telephone Encounter - Ina Palacios RN - 11/02/2022 1:12 PM EDT Labs reviewed with Dave Cm RPh. Patient directed to take 5mg every morning at 8am and 4mg every evening at 8pm and have labs drawn on 11/08. The following approved medication requests have been transmitted electronically. Requested Prescriptions Pending Prescriptions Disp Refills tacrolimus IR (PROGRAF) 1 mg capsule 810 capsule 3 Sig: Take 5 capsules by mouth every morning AND 4 capsules every evening. Ina Palacios RN * Telephone Encounter - Shukri Huang RPh - 11/02/2022 1:05 PM EDT Tacrolimus level was subtherapeutic at 4.3 (goal 10-12) after stopping voriconazole 10/28. Current dose is 3/3. Would recommend increasing dose to 5/4 . Recheck labs in 1 week. Shukri Huang RPh * Telephone Encounter - Magda Concepcion - 11/02/2022 8:36 AM EDT Transplants: 07/20/2022 (Lung) Lab Results Component Value Date FK506 4.3 (L) 11/01/2022 CREAT 0.73 11/01/2022 K 3.8 11/01/2022 WBC 7.94 11/01/2022 ABSNEUT 6.83 11/01/2022 CMVCPY Not detected 11/01/2022 Disp Refills Start End tacrolimus IR (PROGRAF) 1 mg capsule Sig: Take 3 capsules by mouth twice daily. documented in this encounterCommunity [facility]09-26-2023 Miscellaneous Notes* Telephone Encounter - Ina Palacios RN - 11/02/2022 10:31 AM EDT Advised Mupirocin 2% cream is safe to use. * Telephone Encounter - Marnie Carmona - 11/02/2022 10:02 AM EDT Patient called to speak to nurse Cat regarding a rash cream. Patient would like to know if he is allow to use it. Mupirocin 2% cream documented in this encounterCommunity [facility] Hospital09-25-2023 Miscellaneous Notes* Telephone Encounter - Shira Escobar RN - 11/01/2022 9:34 AM EDT Patient states he has blisters on that are appearing on his legs and arms. He was popping them at first and now has them covered. I told them he needs to get them looked at. He will call his PCP now. * Telephone Encounter - Sharon Alcocer - 11/01/2022 9:25 AM EDT Patient calling for Cat B. He has some blisters on his legs/arms not sure if its sun poisoning. Requesting a call back Sharon Alcocer Administrative Casing Operator documented in this encounterCommunity [facility] Hospital09-19-2023 Miscellaneous Notes* Telephone Encounter - Shira Escobar RN - 10/26/2022 3:14 PM EDT Notified patient he can stop Voriconzale. Advised patient to increase Tacrolimus to 3 mg in the morning and 3 mg in the evening. Patient is aware he will need to get weekly labs starting 11/01. The following approved medication requests have been transmitted electronically. Requested Prescriptions Pending Prescriptions Disp Refills tacrolimus IR (PROGRAF) 1 mg capsule 540 capsule 3 Sig: Take 3 capsules by mouth twice daily. Shira Escobar RN documented in this encounterCommunity [facility] Hospital09-19-2023 History of Present illness Narrative* Shukri Juárez MD - 10/26/2022 10:30 AM EDT Images from the original note were not included. . [facility] [place] Note Patient name: Belgica Angelo PCP: Aisha Newton MD CC: Follow-up lung transplantation HPI: Belgica Angelo 67 year old male former 120 pack year smoker, quitting in 2010, PiMZ with low alpha-1 antitrypsin level previously on augmentation therapy, severe asthma COPD, chronic hypoxemic respiratory failure s/p recent double lung transplantation. Previously, he was not a candidate due tohis obesity. He was able to get his BMI down to 30. Received a double lung transplant 07/20/22. Recent surveillance bronchoscopy without evidence of rejection. Oxygen discontinued. Overall he states he is doing very well. He still sore in his chest from his surgery. He denies any cough sputum production, audible wheezing shortness of breath. No fevers or chills. DATA: PFT 08/2022: Review of pulmonary function test show restriction and no obstruction Labs: FINAL DIAGNOSIS A, B. Lung, right lower lobe and right middle lobe, transplant transbronchial biopsies: - Rare minute focus of organizing acute lung injury. - No evidence of acute cellular rejection. - LRSG Grade A0 B0. Imaging / Diagnostic Studies: DATE OF EXAM: Oct 21 2022 7:17AM AOX 5291 - XR CHEST 2V FRONTAL/LAT / PROCEDURE REASON: multiple diagnoses EXAM DATE/TIME: 10/21/2022 7:17 AM COMPARISON: Chest radiograph dated 10/04/2022 RESULT: Lines, tubes, and devices: The patient is status post transverse sternotomy for bilateral lung transplantation. Lungs and pleura: Stable minimal blunting of the left costophrenic angle. Minimal bibasilar opacities are stable and probably due to subsegmental atelectasis or scar.No new focal consolidation or pulmonary edema. No definite pleural effusion. No pneumothorax. Cardiomediastinal silhouette: Stable cardiomediastinal silhouette. Bones and soft tissues: Unremarkable. IMPRESSION: Postsurgical changes of bilateral lung transplantation without acute radiographic abnormality. I personally reviewed the images and agree with the above assessment PAST MEDICAL HISTORY Diagnosis Date Asthma Bronchiectasis (HCC) COPD (chronic obstructive pulmonary disease) ([facility]) Dependence on supplemental oxygen Heterozygous alpha 1-antitrypsin deficiency (HCC) PiMZ Lung nodule Pain in joint, ankle and foot S/P lung transplant ([facility]) ALLERGIES Allergen Reactions Nsaids (Non-Steroid* Contraindication-Medical Surgical Penicillins GI Upset sulfamethoxazole-trimethoprim (BACTRIM DS) 800-160 mg per tablet Take 1 tablet by mouth every Tuesday,Tuesday,Tuesday. valGANciclovir (VALCYTE) 450 mg tablet Take 2 tablets by mouth daily with breakfast. mycophenolate mofetil (CELLCEPT) 250 mg capsule Take 3 capsules by mouth twice daily. pantoprazole DR (PROTONIX) 20 mg tablet Take 1 tablet by mouth DAILY (6 AM). predniSONE (DELTASONE) 5 mg tablet Take 1 tablet by mouth once daily. tacrolimus IR (PROGRAF) 1 mg capsule Take 1 capsule by mouth twice daily. tacrolimus IR (PROGRAF) 0.5 mg capsule Take 1 capsule by mouth every morning. phosphorus (K PHOS NEUTRAL) 250 mg tablet Take 1 tablet by mouth twice daily. magnesium oxide (MAG-OX) 400 mg (241.3 mg magnesium) tablet Take 1 tablet by mouth twice daily. atorvastatin (LIPITOR) 10 mg tablet Take 1 tablet by mouth daily at bedtime. azithromycin (ZITHROMAX) 250 mg tablet Take 1 tablet by mouth every Tuesday,Tuesday,Tuesday. voriconazole (VFEND) 200 mg tablet Take 1 tablet by mouth every 12 hours. traMADol (ULTRAM) 50 mg tablet Take 1 tablet by mouth every 4 hours as needed for pain (for pain.). albuterol (PROVENTIL) 2.5 mg /3 mL (0.083 %) nebulizer solution Use 3 mL via nebulizer every Tuesday,Tuesday,Tuesday. furosemide (LASIX) 40 mg tablet Take 1 tablet by mouth once daily as needed. (Patient not taking: Reported on 10/26/2022) lidocaine (LMX) 4 % cream Apply to affected area as needed (pain around incision site). (Patient taking differently: Apply 1 application to affected area as needed (pain around incision site).) acetaminophen (TYLENOL) 325 mg tablet Take 2 tablets by mouth every 6 hours as needed for pain. camphor-methyl salicyl-menthol (SALONPAS) 3.1-10-6 % ptmd Use as needed for back pain, joint pain, and pain around clamshell incision. Apply 12 hours on and 12 hours off (Patient not taking: Reportedon 10/26/2022) insulin lispro (HUMALOG KWIKPEN INSULIN) 100 unit/mL Check your blood glucose three times daily before meals and inject sliding scale insulin as listed below: Administer correction insulin regardless of meal or nutrition. If blood glucose is less than 70 mg/dL implement hypoglycemia treatment orders and notify provider. If Blood Glucose (mg/dL) is <110 Give 0 units 111-150 Give 0 units 151-200 Give 2 unit 201-250 Give 4 units 251-300 Give 6 units 301-350 Give 8 units 351-400 Give 10 units >400 Give 10 units and notify physician Notify provider if 2 consecutive blood glucose values in the previous 24 hours are greater than 250mg/mL and there have been no changes to the insulin regimen in the previous 24 hours. ondansetron (ZOFRAN) 4 mg tablet Take 1 tablet by mouth every 8 hours as needed for nausea/vomiting. (Patient not taking: Reported on 10/26/2022) Social History Tobacco Use Smoking status: Former Packs/day: 4.00 Years: 30.00 Additional pack years: 0.00 Total pack years: 120.00 Types: Cigarettes Quit date: 2010 Years since quittin.7 Smokeless tobacco: Never Vaping Use Vaping Use: Never used Substance Use Topics Alcohol use: Never Drug use: Never FAMILY HISTORY Problem Relation Age of Onset COPD Mother Heart disease Father Breast Cancer Sister No Known Problems Sister No Known Problems Sister COPD Brother COPD Brother PAST SURGICAL HISTORY Procedure Laterality Date LUNG TRANSPLANT,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 PAST SURGICAL HISTORY OF 02/07/2011 Rt foot reconstruction REMV CATARACT EXTRACAP,INSERT LENS RPR UMBILICAL HRNA 5 YRS/> REDUCIBLE 07/26/2012 Hernia repair, umbilical >5yr PMH, Social history, family history and surgical history reviewed and updated in EMR REVIEW OF SYSTEMS: CONSTITUTIONAL: No fevers, chills, nightsweats, unintended weight loss HEENT: Denies nasal congestion/sinus symptoms, allergy problems. CARDIOVASCULAR: No dyspnea, palpitations, orthopnea, PND, edema. Postsurgical chest pain PULM: See HPI GI: No dysphagia/odynophagia, problematic reflux, constipation, diarrhea NEURO: No new balance problems, peripheral weakness/paresthesias or numbness of concern. MUSC-SKEL: No joint pain, swelling, or erythema. PSY: No concerns regarding depression, anxiety INTEGUMENTARY: No new skin changes or rashes PHYSICAL EXAMINATION: BP 108/62 Pulse 120 Resp 16 Wt 204 lb (92.5kg) SpO2 98% General Appearance: Age-appropriate male, NAD. Skin: Skin color, texture, turgor normal, no suspicious rashes or lesions. Head: Normocephalic, no masses, lesions, tenderness or abnormalities. Eyes: Sclera, conjunctiva normal. Oropharynx: No oral lesions or thrush. Neck: No JVD, no masses, no adenopathy. Lungs: Not labored, normal to percussion, wheezes on the right. Heart: Regular rate and rhythm, no murmurs or gallops. Extremities: No edema or clubbing. Assessment/Plan: 1. Status post bilateral lung transplant -Patient currently doing well without evidence of rejection -Wheezing noted on exam today may be sequelae of his recent bronchoscopy. No infectious symptoms. 2. Use of immunosuppressive medication -No evidence of side effects. Levels monitored by transplant team 3. Former cigarette smoker -Former [id number] smoker with quality of severe COPD -Continue abstinence Shukri Juárez MD [facility] [place] documented in this encounterCommunity [facility] Hospital09-18-2023 Miscellaneous Notes* Telephone Encounter - Dolores Vu RN - 10/25/2022 10:21 AM EDT Patient informed of A0B0 biopsy. Instructed to continue prednisone 5mg daily. documented in this encounterCommunity [facility] Hospital09-15-2023 History of Present illness Narrative* Jing Stark, Research Coordinator - 10/22/2022 5:25 PM EDT Summary: IRB # [id number] [facility] Belgica Angelo is here for IRB # [id number] [facility] Visit # V4 Belgica Angelo is here for 3 months post transplant visit. Subject was met in H23 for bronchoscopy procedure. Next visit is due at 6 months months post transplant. Blood sample obtained? No, Blood sample obtained on 10/04/2022 Urine sample obtained? No, Urine sample obtained on 10/04/2022 Bronchoscopy sample obtained? Yes, sample obtained and delivered to lab on 10/21/2022 Jing Stark Research Coordinator Subject to continue in trial documented in this encounterCommunity [facility] Hospital09-14-2023 Instructions* Patient Instructions* Shay Florentino MD - 10/21/2022 7:05 PM EDT BONE MINERAL DENSITY PATIENT INSTRUCTIONS Bone mineral density testing measures the amount of calcium in certain parts of your bones. This information determines how strong your bones are. The test is used to detect osteoporosis, a disease in which the bone's mineral content and density are low, increasing a person's risk of fractures. Thelumbar spine (lower back) and the hip are the skeletal sites usually examined. For the test, remember that: 1. You cannot take this test if you are . 2. Eat a normal diet on the day of the test. 3. Take your medications as you normally would. 4. DO NOT take calcium supplements (such as Tums) for 24 hours before the test. 5. On the day of the test, leave valuables (jewelry or credit cards) at home. 6. The test should be performed prior to oral, rectal or IV contrast studies, or at least 7 days after any of these studies. For the test, you may be asked to wear a hospital gown. You will lie on your back, on a padded table, in a comfortable position. Generally, you can resume your usual activities immediately. documented in this encounterCommunity [facility] Hospital09-14-2023 History of Present illness Narrative* Shay Florentino MD - 10/21/2022 8:00 AM EDT DI Angelo is a 67 year old male s/p Bilateral Sequential Lung Transplant with Dr. Juarez on 07/20/2022 for COPD / A1AT, here for follow up. Donor with Risk Factor Labs: none 1-2 Mo 08/19/22 DUE: HBV viral DNA: not detected HCV Quant RNA: not detected HIV RNA viral load: 10/04/22 DOS 07/19/22: HBV viral DNA: not detected, HepBsAb: positive, HCV Quant RNA: not detected, HIV Ag/Ab: nonreactive Pre- Tx. 07/17/22: HBV viral DNA: not detected, HepBsAb: positive, HCV Quant RNA: not detected, HepCab: , HIV Ag/Ab: nonreactive MEDICAL HISTORY: COPD Bronchiectasis A1AT on augmentation therapy (proteinase inhibitor once/week) lung nodules neuropathy right foot SURGICAL HISTORY right foot hernia repair EXPLANT PATHOLOGY: FINAL DIAGNOSIS A-B. Left and right lungs, explant pneumonectomies: - Centrilobular emphysema. - Patchy organizing pneumonia with focal giant cells reaction. - Benign reactive hilar lymph nodes. C-D. Left and right donor lungs, upper lobes, wedge resections: - Small arteries with early, organizing thrombi. - No specific pathologic diagnosis. CFF/mm/07/23/2022 POST TRANSPLANT EVENTS: CMV: Donor: Negative / Recipient: Positive EBV: Donor: Negative / Recipient: Positive PGD Scores: Score T 0 = Grade 1 Score T12 = Grade 1 Score T24 = Grade 1 Score T48 = Grade 1 Score T72 = Grade 1 07/20/22 Transplanted 07/21: extubated 07/22: ID consult +streptococcus on recipient swab; transferred to [facility] 07/25: Pain, hallucinations improved. Dizzy, hypotensive w/ BP 80s/50s, high chest tube output, 500mL NSB given. 07/26: Orthostatic hypotension, 80s/50s. IVF. Repeat lactate 2.8 after 1 L IV NS. Started on midodrine. 07/28: Pain improved, continues on epidural. Persistent orthostasis, start mestinon. EKG w/ stable QTc, start SOPHIA ppx. 07/29: Hypotensive (BP 63/37), dizzy while sitting up in chair, CMET activated, BP stabilized to 117/53 w/ 500mL NSB & holding epidural. Increase mestinon dosing. Conferred w/ APMS - transition to oral pain regimen. Epidural removed. 07/30: Give dose of IVIG for hypogam. 07/31: Improvement of pain with blocks. IVIG stopped overnight due to facial flushing and redness on arm. Improvement of leukocytosis; remains on IV Zosyn. 08/02: Left large bore CT removed. Transitioned to oral pain regimen. 08/03: Pain site of former L large bore CT. CXR w/ 2 tiny pneumothoraces on right. Placed blakes x suction. 08/06: Deemed safe for discharge. Desaturation study performed- did not qualify for oxygen. Discharged with bilateral ana drains to bulb suction with follow up appointment with CTS requested. Tacrolimus level was 12.1 on 3mg in AM and 2.5mg in PM. Scheduled for lung transplant clinic on 08/11/22 with 3 week surveillance bronchoscopy scheduled for 08/13/22. BRONCHOSCOPY: ?? AIRWAY, airway MD: ?? 3 mo: 10/21/22: PENDING 6 wk: 09/03/22: A0B0 3 wk: 08/13/22: A0B0 DONOR SPECIFIC ANTIBODY (DSA): 09/14/23: PENDING 10/04/22: Donor specific HLA antibody to allelic DQ2 (DQB1*02:01, DQA1*05:01) was detected in the 10/04/2022 Post-Tx sample. MFI values appear to be stable. 09/01/22: Donor specific HLA antibody to allelic DQ2 (DQB1*02:01, DQA1*05:01) was detected 08/11/22: No Donor specific HLA antibody was detected 07/30/22: No Donor specific HLA antibody was detected ALLERGIES: Allergen Reactions Nsaids (Non-Steroid* Contraindication-Medical Surgical Penicillins Upset stomach GI Upset Current Outpatient Medications Medication Sig sulfamethoxazole-trimethoprim (BACTRIM DS) 800-160 mg per tablet Take 1 tablet by mouth every Tuesday,Tuesday,Tuesday. valGANciclovir (VALCYTE) 450 mg tablet Take 2 tablets by mouth daily with breakfast. mycophenolate mofetil (CELLCEPT) 250 mg capsule Take 3 capsules by mouth twice daily. pantoprazole DR (PROTONIX) 20 mg tablet Take 1 tablet by mouth DAILY (6 AM). predniSONE (DELTASONE) 5 mg tablet Take 1 tablet by mouth once daily. tacrolimus IR (PROGRAF) 1 mg capsule Take 1 capsule by mouth twice daily. tacrolimus IR (PROGRAF) 0.5 mg capsule Take 1 capsule by mouth every morning. phosphorus (K PHOS NEUTRAL) 250 mg tablet Take 1 tablet by mouth twice daily. magnesium oxide (MAG-OX) 400 mg (241.3 mg magnesium) tablet Take 1 tablet by mouth twice daily. atorvastatin (LIPITOR) 10 mg tablet Take 1 tablet by mouth daily at bedtime. azithromycin (ZITHROMAX) 250 mg tablet Take 1 tablet by mouth every Tuesday,Tuesday,Tuesday. voriconazole (VFEND) 200 mg tablet Take 1 tablet by mouth every 12 hours. traMADol (ULTRAM) 50 mg tablet Take 1 tablet by mouth every 4 hours as needed for pain (for pain.). lidocaine (LMX) 4 % cream Apply to affected area as needed (pain around incision site). (Patient taking differently: Apply 1 application to affected area as needed (pain around incision site).) acetaminophen (TYLENOL) 325 mg tablet Take 2 tablets by mouth every 6 hours as needed for pain. camphor-methyl salicyl-menthol (SALONPAS) 3.1-10-6 % ptmd Use as needed for back pain, joint pain, and pain around clamshell incision. Apply 12 hours on and 12 hours off (Patient taking differently: Apply 1 Patch as directed once daily as needed (pain). Use as needed for back pain, joint pain, and pain around clamshell incision. Apply 12 hours on and 12 hours off) insulin lispro (HUMALOG KWIKPEN INSULIN) 100 unit/mL Check your blood glucose three times daily before meals and inject sliding scale insulin as listed below: Administer correction insulin regardless of meal or nutrition. If blood glucose is less than 70 mg/dL implement hypoglycemia treatment orders and notify provider. If Blood Glucose (mg/dL) is <110 Give 0 units 111-150 Give 0 units 151-200 Give 2 unit 201-250 Give 4 units 251-300 Give 6 units 301-350 Give 8 units 351-400 Give 10 units >400 Give 10 units and notify physician Notify provider if 2 consecutive blood glucose values in the previous 24 hours are greater than 250mg/mL and there have been no changes to the insulin regimen in the previous 24 hours. albuterol (PROVENTIL) 2.5 mg /3 mL (0.083 %) nebulizer solution Use 3 mL via nebulizer every Tuesday,Tuesday,Tuesday. ondansetron (ZOFRAN) 4 mg tablet Take 1 tablet by mouth every 8 hours as needed for nausea/vomiting. furosemide (LASIX) 40 mg tablet Take 1 tablet by mouth once daily as needed. No current facility-administered medications for this visit. NEW COMPLAINTS: Patient here for 2 week follow up visit in conjunction with 3 month bronch. Patient presents today walking with cane and on RA. Patient endorses intermittent cough with clear sputum. Denies wheezing or SOB. goes to pulmonary rehab 3x/week. Walking for exercise as well. Afebrile. Home Spirometry readings: FEV1 2.2-2.4L and FVC 2.4-2.6L. Go FRANCA readings reviewed by MD and discussed with patient. PFTs today stable since last visit. Incisions clam shell healing well. Home BP 110-130s/60-70s and HR 90-100s. Today BP 134/81 and HR 100. Currently on no BP medications.Denies chest pain, palpitations, or BLE edema. Has Lasix PRN, not taking. Appetite is good. Eats 3 meals a day. Weight today increased 2 lbs since last visit. Denies nausea,vomiting or ROMEO symptoms. Patient taking Protonix for reflux prevention. Patient states at time when he eats or takes pills it feels like something is laying in this throat. Has a EGD with botox scheduled for 11/12/22. Moving bowels daily, occasional soft stool. Tremors improving. Sleep isn't the greatest, sleeping in recliner. Patient is doing well with medications and routine with his . ID: CMV: Donor: Negative / Recipient: Positive EBV: Donor: Negative / Recipient: Positive. Currently on Valcyte 900mg once daily, Voriconazole 200 mg twice daily, Ambisome 25mg nebulized on (x 1 week), and Bactrim DS every Tuesday, Tuesday and Tuesday. Taking Azithromycin 250 mg and Atorvastatin 10 mg daily. REVIEW OF SYSTEMS: GENERAL: 2 lb weight gain, no malaise or fevers HEENT: Negative for frequent or significant headaches, No changes in hearing or vision, no nose bleeds or other nasal problems NECK: Negative for lumps, goiter, pain and significant neck swelling RESPIRATORY: Negative for hemoptysis, wheezing, COPD, + cough with clear sputum CARDIOVASCULAR: Negative for chest pain, leg swelling, hypertension, CHF or palpitations GI: No nausea, vomiting, or diarrhea : No history of dysuria, frequency or incontinence MUSCULOSKELETAL: Negative for joint pain or swelling, back pain or muscle pain SKIN: Negative for lesions, rash, and itching PSYCH: Negative for sleep disturbance, mood disorder and recent psychosocial stressors HEMATOLOGY/LYMPHOLOGY: Negative for prolonged bleeding, bruising easily or swollen nodes ENDOCRINE: Negative for cold or heat intolerance, polyuria, polydipsia and goiter NEURO: No history of headaches, syncope, paralysis, seizures or tremors PATIENT TRANSPLANT KARNOFSKY INDEX AND LANSKY SCALE 80% - Normal activity with effort: some symptoms of disease. Patient Working? No, on medical disability since 2011 IMMUNIZATIONS: Hep A: 04/13/21; 07/22/21 (11/18/21) positive Hep B: 04/13/21; 07/22/21;02/24/22 (07/17/22) positive Flu vaccine: 11/18/21 Prevnar 20: 07/22/21 COVID 19 vaccine - Moderna ( 12/12/2020, 05/08/2020, 04/10/2020); 11/18/21 Shingles: 04/19/2019, 11/16/2018 PPD/TB Quant: 04/13/21 Negative Tetanus booster: 04/13/21 HEALTH MAINTENANCE: PSA: 02/24/22 0.18 Dermatology - needs scheduled COLONOSCOPY: 01/30/13 ([facility]) Rectal mucosa normal. Grade 1 internal hemorrhoids. Ileum normal, mucosal and submucosal vascular patter throughout the colon was normal. No polyp or mass identified, no inflammatory changes. BONE DENSITY: 07/22/21 THE LOWEST T-SCORE IS -1.4 IN THE LEFT HIP ENDO CONSULT: 02/25/22 with Hortencia Based on FRAX and BMD, treatment is not recommended at this time. Calcium 1200 to 1500 mg daily recommended- begin calcium carbonate 600 mg daily with food. Weight bearing exercise as tolerated recommended. Fall precautions discussed. Repeat bmd on same machine as prior around 07/2023. Continued f/u with PCP for routine health maintenance advised. POST-TRANSPLANT GERD STUDIES: ESOPHAGEAL MANOMETRY- 08/16/22 Impressions EGJOO with spasm and hypercontractile esophagus, consistent with type III achalasia. Correlate clinically with timed barium esophagram, EGD, and symptoms of dysphagia. Spastic segment is 14 cm above the LES. pH PROBE- 08/25/22 Interpretations Normal study OFF PPI therapy with acid exposure time of 0.1%. Symptom association was negative to cough. GASTRIC EMPTYING- 08/19/22 IMPRESSION: NORMAL RATE OF GASTRIC EMPTYING OF SOLID MEAL PRE-TRANSPLANT GERD STUDIES: ESOPHAGEAL MONOMETRY: 07/22/21 Interpretation / Findings LES: Normal resting pressure, complete relaxation Body of the esophagus (supine): --7 swallows with normal peirstalsis --3 swallows with hypertensive peristalsis PH PROBE: 07/22/21 Normal study. GASTRIC EMPTYIN07/23/21 NORMAL RATE OF GASTRIC EMPTYING OF SOLID MEAL. PULMONARY FUNCTION TESTING: Date 10/21/22 FVC (L) 2.80 3.05 4.09 5.14 68 FEV1 (L) 2.70 2.30 3.13 3.91 86 WBL35-42 (L/sec) 4.53 1.20 2.62 4.58 173 Time (sec) 2.05 Date 10/04/22 FVC 2.85 3.06 4.09 5.14 69 FEV1 2.70 2.30 3.13 3.91 86 SPA63-96 4.59 1.20 2.62 4.59 175 Time 3.21 Date 09/01/22 FVC (L) 2.50 3.06 4.09 5.14 61 FEV1 (L) 2.37 2.31 3.14 3.92 75 BGI97-80 (L/sec) 4.02 1.20 2.62 4.59 153 Time (sec) 2.18 Date [id number] FVC (L) 2.26 3.06 4.09 5.14 55 FEV1 (L) 2.19 2.31 3.14 3.92 69 WBF63-57 (L/sec) 5.58 1.20 2.62 4.59 212 Time (sec) 1.90 Date 08/18/22 FVC (L) 2.23 3.06 4.09 5.14 54 FEV1 (L) 2.11 2.31 3.14 3.92 67 EDA11-91 (L/sec) 3.40 1.20 2.63 4.59 129 Time (sec) 2.35 Date: 08/11/22 FVC (L) 2.31 3.06 4.09 5.14 56 FEV1 (L) 1.95 2.31 3.14 3.92 62 PIJ20-74 (L/sec) 1.83 1.21 2.63 4.60 69 Time (sec) 4.59 Date: 06/02/22 Pre-Transplant FVC (L) 2.76 3.26 4.34 5.44 63 FEV1 (L) 0.81 2.45 3.32 4.14 24 VWM11-05 (L/sec) 0.24 1.21 2.64 4.61 9 Time (sec) 14.94 CHEST XRAY 10/21/22. Reviewed by Dr. Florentino: Status post bilateral lung transplant. No significant interval change and no acute radiographic abnormality. Physical Exam: Pleasant, middle aged male. Overweight, BMI 29.27. Not in acute distress. Not pale, icteric or cyanotic. No digital clubbing. Head: Normal. No thyromegaly, no sinus tenderness. No significant peripheral lymphadenopathy. Skin: No rash, areas of erythema or unusual skin lesions. Heart sounds: S1S2, no S3 or murmurs. Lungs: Good air entry both lung jacques. No extra sounds. Abdomen: Soft. No areas of tenderness. No organomegaly. No ascites. No pedal edema. WEB ADMINISTRATOR: Awake. Alert. Oriented to person, place and time. No focal deficits. ASSESSMENT: 67 year old male. 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 Had no ACR on 3 and 6 week surveillance bronchoscopies. HTN- on lopressor. Doing well. Good overall quality of life and exercise tolerance. Still has a globus sensation when he swallows. No nausea or vomiting. He is scheduled for a GI video esophagus study and follow up with Dr. Hackett on 11/12/22. Stable good PFTs. No change in CXR. Immunosuppression: Prograf. Cellcept. Prograf. Antimicrobial prophylaxis: Valcyte. Bactrim. Voriconazole. Labs: WBC 5.41. Hgb/HCT 11.6/38.2. Platelets 298,000. Alb 4.3. AST 21. Glu 94. BUN 22. Cr 1.30. K 5.1. Mg 1.8. IgG 643. CMV DNA- negative. Cholesterol 186. Triglycerides 233. LDL 96. FK506 9.2. PLAN: Encouraged to continue participation in Pulmonary rehab. To continue present immunosuppression and repeat all labs in 2 weeks. Scheduled for 3 month surveillance bronchoscopy today. Will follow up bronchoscopy results. If no evidence of rejection, to return to clinic in 6 weeks. Needs bone density and Dermatology Clinic appointment with next visit. If no evidence of fungal infection, can stop Voriconazole and adjust Prograf dose accordingly. Shay Florentino M.D Staff Physician documented in [facility] encounter[facility] History of Present illness Narrative* Berta PuenteBRUCE - 10/21/2022 7:45 AM EDT PULM FUNCTION SMARTBLOCK: Provider: Osbaldo Magallanes MD Spirometry: 1 System: 7 - [id number] documented in this encounterCommunity [facility]09-[facility] History of Present illness Narrative* Soledad Delcid RT(R) - 10/21/2022 7:00 AM EDT Radiology Service Progress Note PATIENT NAME: Belgica Angelo DATE OF SERVICE: October 21, 2022 TIME: 7:14 AM PATIENT IDENTITY VERIFICATION COMPLETED USING TWO (2) IDENTIFIERS: Name and Date of confirmedby patient verbally. FALL SCREENING: Has the patient had 2 falls in the last year or 1 fall with injury or currently using an Ambulatory Assistive Device (Walker, Cane, Wheelchair, Crutches, etc.)? No PATIENT GENDER DATA: Male PATIENT RELEVANT IMPLANT DATA REVIEWED: Not Applicable RADIOLOGY DEPARTMENT: General X-ray: Exam(s) Completed: Chest X-Ray PERIPHERAL IV DATA: Not applicable SIGNED BY: RT Sina(R) October 21, 2022 7:14 AM documented in this encounterCommunity [facility]08-29-2023 Miscellaneous Notes* Telephone Encounter - Yeison Hernandez RN - 10/05/2022 7:48 AM EDT Transplants: 07/20/2022 (Lung) Lab Results Component Value Date FK506 11.7 10/04/2022 CREAT 1.00 10/04/2022 K 5.2 (H) 10/04/2022 WBC 6.96 10/04/2022 ABSNEUT 5.26 10/04/2022 CMVCPY Not detected 10/04/2022 documented in this encounterCommunity [facility]08-28-[facility] History of Past illness Narrative* Problem Noted Date Diagnosed Date Resolved Date Human immunodeficiency virus (HIV) disease 10/04/2022 04/19/2023 Generalized anxiety disorder 08/03/2022 10/04/2022 Postoperative pain 07/28/2022 Immunosuppressed status 07/26/202209/08 Current chronic use of systemic steroids 07/26/2022 10/04/2022 Atelectasis 07/23/2022 10/04/2022 Overview: 07/23/2022 Encourage PEP with deep breathing and cough. Hypophosphatemia 07/23/2022 10/04/2022 Overview: 07/23/2022 Replete phosphorus as needed. Methicillin resistant Staphy lococcus aureus colonization 07/23/2022 04/19/2023 Streptococcus pneumoniae 07/23/2022 Obesity, Class I, BMI 30-34.9 07/22/2022 10/04/2022 On mechanically assisted ventilation 07/21/2022 07/22/2022 Overview: History: Postoperative. Assessment: Currently intubated and sedated. Grade 1 airway. Plan: WTE/Bronch AM 07/21 Hypotension, unspecified 07/21/2022 Overview: History: Postoperative. Assessment: Hypotensive requiring vasopressor for hemodynamic support. Plan: Titrate Levo infusion to maintain MAP goal 70-80. See care coordination note 07/23/2022 Vasopressin infusion weaned off overnight. Stress hyperglycemia 07/21/2022 023 Overview: History: no DM history Assessment: Perioperative insulin resistance and exacerbation of hyperglycemia. Plan: RHI infusion per CVICU nomogram to maintain BG <150 mg/dL. See care coordination note 07/23/2022 Transition to sliding scale insulin for blood glucose control. Acute post-operative pain 07/21/2022 Overview: History: Postoperative. Assessment: Currently intubated and sedated. Plan: IV push fentanyl until able to use CIRCULATION LIBRARIAN. Initiate scheduled Lidocaine patches and Tylenol. Consider oxycodone IR as needed for breakthrough pain after extubation. See care coordination note 07/23/2022 Continue bupivacaine/fentanyl PCEA for pain control. Emphysema due to alpha-1-ant itrypsin deficiency 07/20/2022 10/04/2022 Overview: History: hx of A1AT deficiency with home O2 3L with rest and 4L with activity, and 3L with sleep. Assessment:07/20/2022: Bilateral lung transplantation via Clamshell incision with assistance of [facility] (Central aortic 21 Fr cannula, 26 Fr Right femoral venous drainage cannula) , MELVIN and RUL Wedge resections Plan: IS per ALD Lung transplant candidate 07/20/2022 Lung transplant planned 07/17/202209/08 Chronic respiratory failure with hypoxia and hypercapnia 02/02/2022 10/04/2022 Overview: See care coordination note Heterozygous alpha 1-antitrypsin deficiency 07/30/2021 10/04/2022 Obesity, Class II, BMI 35-39.9 04/21/2021 04/19/2023 Former smoker 04/10/2020 10/04/2022 Obesity 11/30/2017 10/04/2022 Stage 4 very severe COPD by GOLD classification 09/29/2017 10/04/2022 Overview: History: home O2 3L with rest and 4L with activity, and 3L with sleep. Assessment:07/20/2022: Bilateral lung transplantation via Clamshell incision with assistance of [facility] ECM[facility] (Central aortic 21 Fr cannula, 26 Fr Right femoral venous drainage cannula) , MELVIN and RUL Wedge resections Plan: IS per [facility]D Bronchiectasis 09/29/2017 10/04/2022 Overview: See care coordination note Umbilical hernia 07/10/2012 10/04/2022 Pain in joint, ankle and foot 04/18/2012 10/04/2022 COPD (chronic obstructive pulmonary disease) 10/04/2022 Overview: See care coordination note Premature atrial contraction 07/22/2022 Overview: See care coordination note documented as of this encounter (statuses as of 04/20/2023) [facility] History of Past illness Narrative* Problem Noted Date Diagnosed Date Resolved Date Human immunodeficiency virus (HIV) disease 10/04/2022 04/19/2023 Generalized anxiety disorder 08/03/2022 10/04/2022 Postoperative pain 07/28/2022 Immunosuppressed status 07/26/202209/08 Current chronic use of systemic steroids 07/26/2022 10/04/2022 Atelectasis 07/23/2022 10/04/2022 Overview: 07/23/2022 Encourage PEP with deep breathing and cough. Hypophosphatemia 07/23/2022 10/04/2022 Overview: 07/23/2022 Replete phosphorus as needed. Methicillin resistant Staphy lococcus aureus colonization 07/23/2022 04/19/2023 Streptococcus pneumoniae 07/23/2022 Obesity, Class I, BMI 30-34.9 07/22/2022 10/04/2022 On mechanically assisted ventilation 07/21/2022 07/22/2022 Overview: History: Postoperative. Assessment: Currently intubated and sedated. Grade 1 airway. Plan: WTE/Bronch AM 07/21 Hypotension, unspecified 07/21/2022 Overview: History: Postoperative. Assessment: Hypotensive requiring vasopressor for hemodynamic support. Plan: Titrate Levo infusion to maintain MAP goal 70-80. See care coordination note 07/23/2022 Vasopressin infusion weaned off overnight. Stress hyperglycemia 07/21/2022 023 Overview: History: no DM history Assessment: Perioperative insulin resistance and exacerbation of hyperglycemia. Plan: RHI infusion per CVICU nomogram to maintain BG <150 mg/dL. See care coordination note 07/23/2022 Transition to sliding scale insulin for blood glucose control. Acute post-operative pain 07/21/2022 Overview: History: Postoperative. Assessment: Currently intubated and sedated. Plan: IV push fentanyl until able to use CIRCULATION LIBRARIAN. Initiate scheduled Lidocaine patches and Tylenol. Consider oxycodone IR as needed for breakthrough pain after extubation. See care coordination note 07/23/2022 Continue bupivacaine/fentanyl PCEA for pain control. Emphysema due to alpha-1-ant itrypsin deficiency 07/20/2022 10/04/2022 Overview: History: hx of A1AT deficiency with home O2 3L with rest and 4L with activity, and 3L with sleep. Assessment:07/20/2022: Bilateral lung transplantation via Clamshell incision with assistance of [facility] ECM[facility] (Central aortic 21 Fr cannula, 26 Fr Right femoral venous drainage cannula) , MELVIN and RUL Wedge resections Plan: IS per [facility]D Lung transplant candidate 07/20/2022 Lung transplant planned 07/17/202209/08 Chronic respiratory failure with hypoxia and hypercapnia 02/02/2022 10/04/2022 Overview: See care coordination note Heterozygous alpha 1-antitrypsin deficiency 07/30/2021 10/04/2022 Obesity, Class II, BMI 35-39.9 04/21/2021 04/19/2023 Former smoker 04/10/2020 10/04/2022 Obesity 11/30/2017 10/04/2022 Stage 4 very severe COPD by GOLD classification 09/29/2017 10/04/2022 Overview: History: home O2 3L with rest and 4L with activity, and 3L with sleep. Assessment:07/20/2022: Bilateral lung transplantation via Clamshell incision with assistance of [facility] ECM[facility] (Central aortic 21 Fr cannula, 26 Fr Right femoral venous drainage cannula) , MELVIN and RUL Wedge resections Plan: IS per ALD Bronchiectasis 09/29/2017 10/04/2022 Overview: See care coordination note Umbilical hernia 07/10/2012 10/04/2022 Pain in joint, ankle and foot 04/18/2012 10/04/2022 COPD (chronic obstructive pulmonary disease) 10/04/2022 Overview: See care coordination note Premature atrial contraction 07/22/2022 Overview: See care coordination note documented as of this encounter (statuses as of 04/20/2023) [facility] of Past illness Narrative* Problem Noted Date Diagnosed Date Resolved Date Human immunodeficiency virus (HIV) disease 10/04/2022 04/19/2023 Generalized anxiety disorder 08/03/2022 10/04/2022 Postoperative pain 07/28/2022 Immunosuppressed status 07/26/202209/08 Current chronic use of systemic steroids 07/26/2022 10/04/2022 Atelectasis 07/23/2022 10/04/2022 Overview: 07/23/2022 Encourage PEP with deep breathing and cough. Hypophosphatemia 07/23/2022 10/04/2022 Overview: 07/23/2022 Replete phosphorus as needed. Methicillin resistant Staphy lococcus aureus colonization 07/23/2022 04/19/2023 Streptococcus pneumoniae 07/23/2022 Obesity, Class I, BMI 30-34.9 07/22/2022 10/04/2022 On mechanically assisted ventilation 07/21/2022 07/22/2022 Overview: History: Postoperative. Assessment: Currently intubated and sedated. Grade 1 airway. Plan: WTE/Bronch AM 07/21 Hypotension, unspecified 07/21/2022 Overview: History: Postoperative. Assessment: Hypotensive requiring vasopressor for hemodynamic support. Plan: Titrate Levo infusion to maintain MAP goal 70-80. See care coordination note 07/23/2022 Vasopressin infusion weaned off overnight. Stress hyperglycemia 07/21/2022 023 Overview: History: no DM history Assessment: Perioperative insulin resistance and exacerbation of hyperglycemia. Plan: RHI infusion per CVICU nomogram to maintain BG <150 mg/dL. See care coordination note 07/23/2022 Transition to sliding scale insulin for blood glucose control. Acute post-operative pain 07/21/2022 Overview: History: Postoperative. Assessment: Currently intubated and sedated. Plan: IV push fentanyl until able to use CIRCULATION LIBRARIAN. Initiate scheduled Lidocaine patches and Tylenol. Consider oxycodone IR as needed for breakthrough pain after extubation. See care coordination note 07/23/2022 Continue bupivacaine/fentanyl PCEA for pain control. Emphysema due to alpha-1-ant itrypsin deficiency 07/20/2022 10/04/2022 Overview: History: hx of A1AT deficiency with home O2 3L with rest and 4L with activity, and 3L with sleep. Assessment:07/20/2022: Bilateral lung transplantation via Clamshell incision with assistance of [facility] ECM[facility] (Central aortic 21 Fr cannula, 26 Fr Right femoral venous drainage cannula) , MELVIN and RUL Wedge resections Plan: IS per [facility]D Lung transplant candidate 07/20/2022 Lung transplant planned 07/17/202209/08 Chronic respiratory failure with hypoxia and hypercapnia 02/02/2022 10/04/2022 Overview: See care coordination note Heterozygous alpha 1-antitrypsin deficiency 07/30/2021 10/04/2022 Obesity, Class II, BMI 35-39.9 04/21/2021 04/19/2023 Former smoker 04/10/2020 10/04/2022 Obesity 11/30/2017 10/04/2022 Stage 4 very severe COPD by GOLD classification 09/29/2017 10/04/2022 Overview: History: home O2 3L with rest and 4L with activity, and 3L with sleep. Assessment:07/20/2022: Bilateral lung transplantation via Clamshell incision with assistance of [facility] (Central aortic 21 Fr cannula, 26 Fr Right femoral venous drainage cannula) , MELVIN and RUL Wedge resections Plan: IS per [facility]D Bronchiectasis 09/29/2017 10/04/2022 Overview: See care coordination note Umbilical hernia 07/10/2012 10/04/2022 Pain in joint, ankle and foot 04/18/2012 10/04/2022 COPD (chronic obstructive pulmonary disease) 10/04/2022 Overview: See care coordination note Premature atrial contraction 07/22/2022 Overview: See care coordination note documented as of this encounter (statuses as of 04/20/2023) [facility] Past illness Narrative* Problem Noted Date Diagnosed Date Resolved Date Human immunodeficiency virus (HIV) disease 10/04/2022 04/19/2023 Generalized anxiety disorder 08/03/2022 10/04/2022 Postoperative pain 07/28/2022 Immunosuppressed status 07/26/2022 0809/2022 Current chronic use of systemic steroids 07/26/2022 10/04/2022 Atelectasis 07/23/2022 10/04/2022 Overview: 07/23/2022 Encourage PEP with deep breathing and cough. Hypophosphatemia 07/23/2022 10/04/2022 Overview: 07/23/2022 Replete phosphorus as needed. Methicillin resistant Staphy lococcus aureus colonization 07/23/2022 04/19/2023 Streptococcus pneumoniae 07/23/2022 Obesity, Class I, BMI 30-34.9 07/22/2022 10/04/2022 On mechanically assisted ventilation 07/21/2022 07/22/2022 Overview: History: Postoperative. Assessment: Currently intubated and sedated. Grade 1 airway. Plan: WTE/Bronch AM 07/21 Hypotension, unspecified 07/21/2022 Overview: History: Postoperative. Assessment: Hypotensive requiring vasopressor for hemodynamic support. Plan: Titrate Levo infusion to maintain MAP goal 70-80. See care coordination note 07/23/2022 Vasopressin infusion weaned off overnight. Stress hyperglycemia 07/21/2022 023 Overview: History: no DM history Assessment: Perioperative insulin resistance and exacerbation of hyperglycemia. Plan: RHI infusion per CVICU nomogram to maintain BG <150 mg/dL. See care coordination note 07/23/2022 Transition to sliding scale insulin for blood glucose control. Acute post-operative pain 07/21/2022 Overview: History: Postoperative. Assessment: Currently intubated and sedated. Plan: IV push fentanyl until able to use CIRCULATION LIBRARIAN. Initiate scheduled Lidocaine patches and Tylenol. Consider oxycodone IR as needed for breakthrough pain after extubation. See care coordination note 07/23/2022 Continue bupivacaine/fentanyl PCEA for pain control. Emphysema due to alpha-1-ant itrypsin deficiency 07/20/2022 10/04/2022 Overview: History: hx of A1AT deficiency with home O2 3L with rest and 4L with activity, and 3L with sleep. Assessment:07/20/2022: Bilateral lung transplantation via Clamshell incision with assistance of [facility] ECM[facility] (Central aortic 21 Fr cannula, 26 Fr Right femoral venous drainage cannula) , MELVIN and RUL Wedge resections Plan: IS per [facility]D Lung transplant candidate 07/20/2022 Lung transplant planned 07/17/202209/08 Chronic respiratory failure with hypoxia and hypercapnia 02/02/2022 10/04/2022 Overview: See care coordination note Heterozygous alpha 1-antitrypsin deficiency 07/30/2021 10/04/2022 Obesity, Class II, BMI 35-39.9 04/21/2021 04/19/2023 Former smoker 04/10/2020 10/04/2022 Obesity 11/30/2017 10/04/2022 Stage 4 very severe COPD by GOLD classification 09/29/2017 10/04/2022 Overview: History: home O2 3L with rest and 4L with activity, and 3L with sleep. Assessment:07/20/2022: Bilateral lung transplantation via Clamshell incision with assistance of [facility] (Central aortic 21 Fr cannula, 26 Fr Right femoral venous drainage cannula) , MELVIN and RUL Wedge resections Plan: IS per [facility]D Bronchiectasis 09/29/2017 10/04/2022 Overview: See care coordination note Umbilical hernia 07/10/2012 10/04/2022 Pain in joint, ankle and foot 04/18/2012 10/04/2022 COPD (chronic obstructive pulmonary disease) 10/04/2022 Overview: See care coordination note Premature atrial contraction 07/22/2022 Overview: See care coordination note documented as of this encounter (statuses as of 04/21/2023) [facility]08-28-2023 History of Past illness Narrative* Problem Noted Date Diagnosed Date Resolved Date Human immunodeficiency virus (HIV) disease 10/04/2022 04/19/2023 Generalized anxiety disorder 08/03/2022 10/04/2022 Postoperative pain 07/28/2022 Immunosuppressed status 07/26/2022 08/2 09/2022 Current chronic use of systemic steroids 07/26/2022 10/04/2022 Atelectasis 07/23/2022 10/04/2022 Overview: 07/23/2022 Encourage PEP with deep breathing and cough. Hypophosphatemia 07/23/2022 10/04/2022 Overview: 07/23/2022 Replete phosphorus as needed. Methicillin resistant Staphy lococcus aureus colonization 07/23/2022 04/19/2023 Streptococcus pneumoniae 07/23/2022 Obesity, Class I, BMI 30-34.9 07/22/2022 10/04/2022 On mechanically assisted ventilation 07/21/2022 07/22/2022 Overview: History: Postoperative. Assessment: Currently intubated and sedated. Grade 1 airway. Plan: WTE/Bronch AM 07/21 Hypotension, unspecified 07/21/2022 Overview: History: Postoperative. Assessment: Hypotensive requiring vasopressor for hemodynamic support. Plan: Titrate Levo infusion to maintain MAP goal 70-80. See care coordination note 07/23/2022 Vasopressin infusion weaned off overnight. Stress hyperglycemia 07/21/2022 023 Overview: History: no DM history Assessment: Perioperative insulin resistance and exacerbation of hyperglycemia. Plan: RHI infusion per CVICU nomogram to maintain BG <150 mg/dL. See care coordination note 07/23/2022 Transition to sliding scale insulin for blood glucose control. Acute post-operative pain 07/21/2022 Overview: History: Postoperative. Assessment: Currently intubated and sedated. Plan: IV push fentanyl until able to use CIRCULATION LIBRARIAN. Initiate scheduled Lidocaine patches and Tylenol. Consider oxycodone IR as needed for breakthrough pain after extubation. See care coordination note 07/23/2022 Continue bupivacaine/fentanyl PCEA for pain control. Emphysema due to alpha-1-ant itrypsin deficiency 07/20/2022 10/04/2022 Overview: History: hx of A1AT deficiency with home O2 3L with rest and 4L with activity, and 3L with sleep. Assessment:07/20/2022: Bilateral lung transplantation via Clamshell incision with assistance of [facility] (Central aortic 21 Fr cannula, 26 Fr Right femoral venous drainage cannula) , MELVIN and RUL Wedge resections Plan: IS per ALD Lung transplant candidate 07/20/2022 Lung transplant planned 07/17/202209/08 Chronic respiratory failure with hypoxia and hypercapnia 02/02/2022 10/04/2022 Overview: See care coordination note Heterozygous alpha 1-antitrypsin deficiency 07/30/2021 10/04/2022 Obesity, Class II, BMI 35-39.9 04/21/2021 04/19/2023 Former smoker 04/10/2020 10/04/2022 Obesity 11/30/2017 10/04/2022 Stage 4 very severe COPD by GOLD classification 09/29/2017 10/04/2022 Overview: History: home O2 3L with rest and 4L with activity, and 3L with sleep. Assessment:07/20/2022: Bilateral lung transplantation via Clamshell incision with assistance of [facility] (Central aortic 21 Fr cannula, 26 Fr Right femoral venous drainage cannula) , MELVIN and RUL Wedge resections Plan: IS per ALD Bronchiectasis 09/29/2017 10/04/2022 Overview: See care coordination note Umbilical hernia 07/10/2012 10/04/2022 Pain in joint, ankle and foot 04/18/2012 10/04/2022 COPD (chronic obstructive pulmonary disease) 10/04/2022 Overview: See care coordination note Premature atrial contraction 07/22/2022 Overview: See care coordination note documented as of this encounter (statuses as of 04/21/2023) [facility]08-28[facility] History of Past illness Narrative* Problem Noted Date Diagnosed Date Resolved Date Human immunodeficiency virus (HIV) disease 10/04/2022 04/19/2023 Generalized anxiety disorder 08/03/2022 10/04/2022 Postoperative pain 07/28/2022 Immunosuppressed status 07/26/2022 0809/2022 Current chronic use of systemic steroids 07/26/2022 10/04/2022 Atelectasis 07/23/2022 10/04/2022 Overview: 07/23/2022 Encourage PEP with deep breathing and cough. Hypophosphatemia 07/23/2022 10/04/2022 Overview: 07/23/2022 Replete phosphorus as needed. Methicillin resistant Staphy lococcus aureus colonization 07/23/2022 04/19/2023 Streptococcus pneumoniae 07/23/2022 Obesity, Class I, BMI 30-34.9 07/22/2022 10/04/2022 On mechanically assisted ventilation 07/21/2022 07/22/2022 Overview: History: Postoperative. Assessment: Currently intubated and sedated. Grade 1 airway. Plan: WTE/Bronch AM 07/21 Hypotension, unspecified 07/21/2022 Overview: History: Postoperative. Assessment: Hypotensive requiring vasopressor for hemodynamic support. Plan: Titrate Levo infusion to maintain MAP goal 70-80. See care coordination note 07/23/2022 Vasopressin infusion weaned off overnight. Stress hyperglycemia 07/21/2022 023 Overview: History: no DM history Assessment: Perioperative insulin resistance and exacerbation of hyperglycemia. Plan: RHI infusion per CVICU nomogram to maintain BG <150 mg/dL. See care coordination note 07/23/2022 Transition to sliding scale insulin for blood glucose control. Acute post-operative pain 07/21/2022 Overview: History: Postoperative. Assessment: Currently intubated and sedated. Plan: IV push fentanyl until able to use CIRCULATION LIBRARIAN. Initiate scheduled Lidocaine patches and Tylenol. Consider oxycodone IR as needed for breakthrough pain after extubation. See care coordination note 07/23/2022 Continue bupivacaine/fentanyl PCEA for pain control. Emphysema due to alpha-1-ant itrypsin deficiency 07/20/2022 10/04/2022 Overview: History: hx of A1AT deficiency with home O2 3L with rest and 4L with activity, and 3L with sleep. Assessment:07/20/2022: Bilateral lung transplantation via Clamshell incision with assistance of [facility] ECM[facility] (Central aortic 21 Fr cannula, 26 Fr Right femoral venous drainage cannula) , MELVIN and RUL Wedge resections Plan: IS per ALD Lung transplant candidate 07/20/2022 Lung transplant planned 07/17/202209/08 Chronic respiratory failure with hypoxia and hypercapnia 02/02/2022 10/04/2022 Overview: See care coordination note Heterozygous alpha 1-antitrypsin deficiency 07/30/2021 10/04/2022 Obesity, Class II, BMI 35-39.9 04/21/2021 04/19/2023 Former smoker 04/10/2020 10/04/2022 Obesity 11/30/2017 10/04/2022 Stage 4 very severe COPD by GOLD classification 09/29/2017 10/04/2022 Overview: History: home O2 3L with rest and 4L with activity, and 3L with sleep. Assessment:07/20/2022: Bilateral lung transplantation via Clamshell incision with assistance of [facility] ECM[facility] (Central aortic 21 Fr cannula, 26 Fr Right femoral venous drainage cannula) , MELVIN and RUL Wedge resections Plan: IS per ALD Bronchiectasis 09/29/2017 10/04/2022 Overview: See care coordination note Umbilical hernia 07/10/2012 10/04/2022 Pain in joint, ankle and foot 04/18/2012 10/04/2022 COPD (chronic obstructive pulmonary disease) 10/04/2022 Overview: See care coordination note Premature atrial contraction 07/22/2022 Overview: See care coordination note documented as of this encounter (statuses as of 04/21/2023) [facility]08[facility] History of Past illness Narrative* Problem Noted Date Diagnosed Date Resolved Date Human immunodeficiency virus (HIV) disease 10/04/2022 04/19/2023 Generalized anxiety disorder 08/03/2022 10/04/2022 Postoperative pain 07/28/2022 Immunosuppressed status 07/26/2022 0809/2022 Current chronic use of systemic steroids 07/26/2022 10/04/2022 Atelectasis 07/23/2022 10/04/2022 Overview: 07/23/2022 Encourage PEP with deep breathing and cough. Hypophosphatemia 07/23/2022 10/04/2022 Overview: 07/23/2022 Replete phosphorus as needed. Methicillin resistant Staphy lococcus aureus colonization 07/23/2022 04/19/2023 Streptococcus pneumoniae 07/23/2022 Obesity, Class I, BMI 30-34.9 07/22/2022 10/04/2022 On mechanically assisted ventilation 07/21/2022 07/22/2022 Overview: History: Postoperative. Assessment: Currently intubated and sedated. Grade 1 airway. Plan: WTE/Bronch AM 07/21 Hypotension, unspecified 07/21/2022 Overview: History: Postoperative. Assessment: Hypotensive requiring vasopressor for hemodynamic support. Plan: Titrate Levo infusion to maintain MAP goal 70-80. See care coordination note 07/23/2022 Vasopressin infusion weaned off overnight. Stress hyperglycemia 07/21/202210/04/ 023 Overview: History: no DM history Assessment: Perioperative insulin resistance and exacerbation of hyperglycemia. Plan: RHI infusion per CVICU nomogram to maintain BG <150 mg/dL. See care coordination note 07/23/2022 Transition to sliding scale insulin for blood glucose control. Acute post-operative pain 07/21/2022 Overview: History: Postoperative. Assessment: Currently intubated and sedated. Plan: IV push fentanyl until able to use CIRCULATION LIBRARIAN. Initiate scheduled Lidocaine patches and Tylenol. Consider oxycodone IR as needed for breakthrough pain after extubation. See care coordination note 07/23/2022 Continue bupivacaine/fentanyl PCEA for pain control. Emphysema due to alpha-1-ant itrypsin deficiency 07/20/2022 10/04/2022 Overview: History: hx of A1AT deficiency with home O2 3L with rest and 4L with activity, and 3L with sleep. Assessment:07/20/2022: Bilateral lung transplantation via Clamshell incision with assistance of [facility] ECM[facility] (Central aortic 21 Fr cannula, 26 Fr Right femoral venous drainage cannula) , MELVIN and RUL Wedge resections Plan: IS per ALD Lung transplant candidate 07/20/2022 Lung transplant planned 07/17/202209/08 Chronic respiratory failure with hypoxia and hypercapnia 02/02/2022 10/04/2022 Overview: See care coordination note Heterozygous alpha 1-antitrypsin deficiency 07/30/2021 10/04/2022 Obesity, Class II, BMI 35-39.9 04/21/2021 04/19/2023 Former smoker 04/10/2020 10/04/2022 Obesity 11/30/2017 10/04/2022 Stage 4 very severe COPD by GOLD classification 09/29/2017 10/04/2022 Overview: History: home O2 3L with rest and 4L with activity, and 3L with sleep. Assessment:07/20/2022: Bilateral lung transplantation via Clamshell incision with assistance of [facility] ECM[facility] (Central aortic 21 Fr cannula, 26 Fr Right femoral venous drainage cannula) , MELVIN and RUL Wedge resections Plan: IS per ALD Bronchiectasis 09/29/2017 10/04/2022 Overview: See care coordination note Umbilical hernia 07/10/2012 10/04/2022 Pain in joint, ankle and foot 04/18/2012 10/04/2022 COPD (chronic obstructive pulmonary disease) 10/04/2022 Overview: See care coordination note Premature atrial contraction 07/22/2022 Overview: See care coordination note documented as of this encounter (statuses as of 04/22/2023) [facility]08-[facility] History of Past illness Narrative* Problem Noted Date Diagnosed Date Resolved Date Human immunodeficiency virus (HIV) disease 10/04/2022 04/19/2023 Generalized anxiety disorder 08/03/2022 10/04/2022 Postoperative pain 07/28/2022 Immunosuppressed status 07/26/202209/08 Current chronic use of systemic steroids 07/26/2022 10/04/2022 Atelectasis 07/23/2022 10/04/2022 Overview: 07/23/2022 Encourage PEP with deep breathing and cough. Hypophosphatemia 07/23/2022 10/04/2022 Overview: 07/23/2022 Replete phosphorus as needed. Methicillin resistant Staphy lococcus aureus colonization 07/23/2022 04/19/2023 Streptococcus pneumoniae 07/23/2022 Obesity, Class I, BMI 30-34.9 07/22/2022 10/04/2022 On mechanically assisted ventilation 07/21/2022 07/22/2022 Overview: History: Postoperative. Assessment: Currently intubated and sedated. Grade 1 airway. Plan: WTE/Bronch AM 07/21 Hypotension, unspecified 07/21/2022 Overview: History: Postoperative. Assessment: Hypotensive requiring vasopressor for hemodynamic support. Plan: Titrate Levo infusion to maintain MAP goal 70-80. See care coordination note 07/23/2022 Vasopressin infusion weaned off overnight. Stress hyperglycemia 07/21/202210/04/ 023 Overview: History: no DM history Assessment: Perioperative insulin resistance and exacerbation of hyperglycemia. Plan: RHI infusion per CVICU nomogram to maintain BG <150 mg/dL. See care coordination note 07/23/2022 Transition to sliding scale insulin for blood glucose control. Acute post-operative pain 07/21/2022 Overview: History: Postoperative. Assessment: Currently intubated and sedated. Plan: IV push fentanyl until able to use CIRCULATION LIBRARIAN. Initiate scheduled Lidocaine patches and Tylenol. Consider oxycodone IR as needed for breakthrough pain after extubation. See care coordination note 07/23/2022 Continue bupivacaine/fentanyl PCEA for pain control. Emphysema due to alpha-1-ant itrypsin deficiency 07/20/2022 10/04/2022 Overview: History: hx of A1AT deficiency with home O2 3L with rest and 4L with activity, and 3L with sleep. Assessment:07/20/2022: Bilateral lung transplantation via Clamshell incision with assistance of [facility] (Central aortic 21 Fr cannula, 26 Fr Right femoral venous drainage cannula) , MELVIN and RUL Wedge resections Plan: IS per ALD Lung transplant candidate 07/20/2022 Lung transplant planned 07/17/202209/08 Chronic respiratory failure with hypoxia and hypercapnia 02/02/2022 10/04/2022 Overview: See care coordination note Heterozygous alpha 1-antitrypsin deficiency 07/30/2021 10/04/2022 Obesity, Class II, BMI 35-39.9 04/21/2021 04/19/2023 Former smoker 04/10/2020 10/04/2022 Obesity 11/30/2017 10/04/2022 Stage 4 very severe COPD by GOLD classification 09/29/2017 10/04/2022 Overview: History: home O2 3L with rest and 4L with activity, and 3L with sleep. Assessment:07/20/2022: Bilateral lung transplantation via Clamshell incision with assistance of [facility] (Central aortic 21 Fr cannula, 26 Fr Right femoral venous drainage cannula) , MELVIN and RUL Wedge resections Plan: IS per ALD Bronchiectasis 09/29/2017 10/04/2022 Overview: See care coordination note Umbilical hernia 07/10/2012 10/04/2022 Pain in joint, ankle and foot 04/18/2012 10/04/2022 COPD (chronic obstructive pulmonary disease) 10/04/2022 Overview: See care coordination note Premature atrial contraction 07/22/2022 Overview: See care coordination note documented as of this encounter (statuses as of 04/26/2023) [facility] History of Present illness Narrative* Osbaldo Magallanes MD - 10/04/2022 11:15 AM EDT DI Angelo is a 66 year old male s/p Bilateral Sequential Lung Transplant with Dr. Juarez on 07/20/2022 for COPD / A1AT, here for follow up. Donor with Risk Factor Labs: none 1-2 Mo 08/19/22 DUE: HBV viral DNA: not detected HCV Quant RNA: not detected HIV RNA viral load: 10/04/22 DOS 07/19/22: HBV viral DNA: not detected, HepBsAb: positive, HCV Quant RNA: not detected, HIV Ag/Ab: nonreactive Pre- Tx. 07/17/22: HBV viral DNA: not detected, HepBsAb: positive, HCV Quant RNA: not detected, HepCab: , HIV Ag/Ab: nonreactive MEDICAL HISTORY: COPD Bronchiectasis A1AT on augmentation therapy (proteinase inhibitor once/week) lung nodules neuropathy right foot SURGICAL HISTORY right foot hernia repair EXPLANT PATHOLOGY: FINAL DIAGNOSIS A-B. Left and right lungs, explant pneumonectomies: - Centrilobular emphysema. - Patchy organizing pneumonia with focal giant cells reaction. - Benign reactive hilar lymph nodes. C-D. Left and right donor lungs, upper lobes, wedge resections: - Small arteries with early, organizing thrombi. - No specific pathologic diagnosis. CFF/mm/07/23/2022 POST TRANSPLANT EVENTS: CMV: Donor: Negative / Recipient: Positive EBV: Donor: Negative / Recipient: Positive PGD Scores: Score T 0 = Grade 1 Score T12 = Grade 1 Score T24 = Grade 1 Score T48 = Grade 1 Score T72 = Grade 1 07/20/22 Transplanted 07/21: extubated 07/22: ID consult +streptococcus on recipient swab; transferred to [facility] 07/25: Pain, hallucinations improved. Dizzy, hypotensive w/ BP 80s/50s, high chest tube output, 500mL NSB given. 07/26: Orthostatic hypotension, 80s/50s. IVF. Repeat lactate 2.8 after 1 L IV NS. Started on midodrine. 07/28: Pain improved, continues on epidural. Persistent orthostasis, start mestinon. EKG w/ stable QTc, start SOPHIA ppx. 07/29: Hypotensive (BP 63/37), dizzy while sitting up in chair, CMET activated, BP stabilized to 117/53 w/ 500mL NSB & holding epidural. Increase mestinon dosing. Conferred w/ APMS - transition to oral pain regimen. Epidural removed. 07/30: Give dose of IVIG for hypogam. 07/31: Improvement of pain with blocks. IVIG stopped overnight due to facial flushing and redness on arm. Improvement of leukocytosis; remains on IV Zosyn. 08/02: Left large bore CT removed. Transitioned to oral pain regimen. 08/03: Pain site of former L large bore CT. CXR w/ 2 tiny pneumothoraces on right. Placed blakes x suction. 08/06: Deemed safe for discharge. Desaturation study performed- did not qualify for oxygen. Discharged with bilateral ana drains to bulb suction with follow up appointment with CTS requested. Tacrolimus level was 12.1 on 3mg in AM and 2.5mg in PM. Scheduled for lung transplant clinic on 08/11/22 with 3 week surveillance bronchoscopy scheduled for 08/13/22. BRONCHOSCOPY: ?? AIRWAY, airway MD: ?? 6 wk: 09/03/22: A0B0 3 wk: 08/13/22: A0B0 DONOR SPECIFIC ANTIBODY (DSA): 10/04/22: Pending 09/01/22: Donor specific HLA antibody to allelic DQ2 (DQB1*02:01, DQA1*05:01) was detected 08/11/22: No Donor specific HLA antibody was detected 07/30/22: No Donor specific HLA antibody was detected ALLERGIES: Allergen Reactions Nsaids (Non-Steroid* Contraindication-Medical Surgical Penicillins Upset stomach GI Upset CURRENT MEDICATIONS: Current Outpatient Medications on File Prior to Visit Medication Sig sulfamethoxazole-trimethoprim (BACTRIM DS) 800-160 mg per tablet Take 1 tablet by mouth every Tuesday,Tuesday,Tuesday. valGANciclovir (VALCYTE) 450 mg tablet Take 2 tablets by mouth daily with breakfast. mycophenolate mofetil (CELLCEPT) 250 mg capsule Take 3 capsules by mouth twice daily. pantoprazole DR (PROTONIX) 20 mg tablet Take 1 tablet by mouth DAILY (6 AM). predniSONE (DELTASONE) 5 mg tablet Take 1 tablet by mouth once daily. tacrolimus IR (PROGRAF) 1 mg capsule Take 1 capsule by mouth twice daily. tacrolimus IR (PROGRAF) 0.5 mg capsule Take 1 capsule by mouth every morning. phosphorus (K PHOS NEUTRAL) 250 mg tablet Take 1 tablet by mouth twice daily. magnesium oxide (MAG-OX) 400 mg (241.3 mg magnesium) tablet Take 1 tablet by mouth twice daily. atorvastatin (LIPITOR) 10 mg tablet Take 1 tablet by mouth daily at bedtime. azithromycin (ZITHROMAX) 250 mg tablet Take 1 tablet by mouth every Tuesday,Tuesday,Tuesday. voriconazole (VFEND) 200 mg tablet Take 1 tablet by mouth every 12 hours. traMADol (ULTRAM) 50 mg tablet Take 1 tablet by mouth every 4 hours as needed for pain (for pain.). furosemide (LASIX) 40 mg tablet Take 1 tablet by mouth once daily as needed. lidocaine (LMX) 4 % cream Apply to affected area as needed (pain around incision site). (Patient taking differently: Apply 1 application to affected area as needed (pain around incision site).) acetaminophen (TYLENOL) 325 mg tablet Take 2 tablets by mouth every 6 hours as needed for pain. camphor-methyl salicyl-menthol (SALONPAS) 3.1-10-6 % ptmd Use as needed for back pain, joint pain, and pain around clamshell incision. Apply 12 hours on and 12 hours off (Patient taking differently: Apply 1 Patch as directed once daily as needed (pain). Use as needed for back pain, joint pain, and pain around clamshell incision. Apply 12 hours on and 12 hours off) insulin lispro (HUMALOG KWIKPEN INSULIN) 100 unit/mL Check your blood glucose three times daily before meals and inject sliding scale insulin as listed below: Administer correction insulin regardless of meal or nutrition. If blood glucose is less than 70 mg/dL implement hypoglycemia treatment orders and notify provider. If Blood Glucose (mg/dL) is <110 Give 0 units 111-150 Give 0 units 151-200 Give 2 unit 201-250 Give 4 units 251-300 Give 6 units 301-350 Give 8 units 351-400 Give 10 units >400 Give 10 units and notify physician Notify provider if 2 consecutive blood glucose values in the previous 24 hours are greater than 250mg/mL and there have been no changes to the insulin regimen in the previous 24 hours. Insulin [place], Disposable, (BD ULTRA-FINE RADHA PEN NEEDLE) 32 gauge x 5/32 Use 1 Each three times daily before meals. blood sugar diagnostic ([employer] [employer] VERIO TEST STRIPS) test strip Use as instructed; check your blood glucose three times daily before meals. lancets (ONETOUCH DELICA PLUS LANCET) 33 gauge Use 1 Each three times daily before meals. alcohol swabs (ALCOHOL PADS) Apply 1 Each to affected area three times daily before meals. albuterol (PROVENTIL) 2.5 mg /3 mL (0.083 %) nebulizer solution Use 3 mL via nebulizer every Tuesday,Tuesday,Tuesday. ondansetron (ZOFRAN) 4 mg tablet Take 1 tablet by mouth every 8 hours as needed for nausea/vomiting. polyethylene glycol 3350 (MIRALAX) 17 gram packet Take 1 packet by mouth three times daily. Dissolve dose in 4 - 8 ounces of liquid and take as directed. senna-docusate (SENNA-S) 8.6-50 mg per tablet 2 tablets by ORAL/FEEDING TUBE route twice daily. No current facility-administered medications on file prior to visit. NEW COMPLAINTS: Patient here for 1 month follow up visit with GI consult. Last vist had 6 week bronch, 09/03/22 which A0B0. Patient presents today walking with cane and on RA. Currently residing at [facility]. [facility] still working with patient, PT discharged patient. Patient endorses intermittent cough with clear sputum. Denies wheezing or SOB. Walking for exercise as well. Afebrile. Home Spirometry readings: FEV1 1.6-2.0L and FVC 1.9- 2.0L. Go FRANCA readings reviewed by MD and discussed with patient. PFTs today up 11% since last visit, FEV1 2.7L. Incisions clam shell healing well. Blakes removed by CTS. Home BP 110-120/60-70s and HR 80-100s. Today BP 134/86 and HR 104. Currently on no BP medications. Denies chest pain, palpitations, or BLE edema. Has Lasix PRN, not taking. Appetite is good. Eats 3 meals a day. Weight today stable since last visit. Denies nausea, vomitingor ROMEO symptoms. Patient taking Protonix for reflux prevention. BS checked once daily, under 90. Moving bowels daily, denies any diarrhea. Takes stool softener daily. Tremors mild. Sleep still poor, sleeping in recliner. Patient is doing well with medications and routine with his . ID: CMV: Donor: Negative / Recipient: Positive EBV: Donor: Negative / Recipient: Positive. Currently on Valcyte 900mg once daily, Voriconazole 200 mg twice daily, Ambisome 25mg nebulized on (x 1 week), and Bactrim DS every Tuesday, Tuesday and Tuesday. Taking Azithromycin 250 mg and Atorvastatin 10 mg daily. REVIEW OF SYSTEMS: GENERAL: Weight gain of 2 lbs since last visit. No malaise or fevers HEENT: Negative for frequent or significant headaches, No changes in hearing or vision, no nose bleeds or other nasal problems NECK: Negative for lumps, goiter, pain and significant neck swelling RESPIRATORY: See HPI CARDIOVASCULAR: Negative for chest pain, leg swelling, hypertension, CHF or palpitations GI: No nausea, vomiting, or diarrhea : No history of dysuria, frequency or incontinence MUSCULOSKELETAL: Negative for joint pain or swelling, back pain or muscle pain SKIN: Negative for lesions, rash, and itching PSYCH: Negative for sleep disturbance, mood disorder and recent psychosocial stressors HEMATOLOGY/LYMPHOLOGY: Negative for prolonged bleeding, bruising easily or swollen nodes ENDOCRINE: Negative for cold or heat intolerance, polyuria, polydipsia and goiter NEURO: No history of headaches, syncope, paralysis, seizures or tremors PATIENT TRANSPLANT KARNOFSKY INDEX AND LANSKY SCALE 80% - Normal activity with effort: some symptoms of disease. Dolores Vu RN Patient Working? No, on medical disability since 2011 IMMUNIZATIONS: Hep A: 04/13/21; 07/22/21 (11/18/21) positive Hep B: 04/13/21; 07/22/21;02/24/22 (07/17/22) positive Flu vaccine: 11/18/21 Prevnar 20: 07/22/21 COVID 19 vaccine - Moderna ( 12/12/2020, 05/08/2020, 04/10/2020); 11/18/21 Shingles: 04/19/2019, 11/16/2018 PPD/TB Quant: 04/13/21 Negative Tetanus booster: 04/13/21 HEALTH MAINTENANCE: PSA: 02/24/22 0.18 Dermatology - needs scheduled COLONOSCOPY: 01/30/13 ([facility]) Rectal mucosa normal. Grade 1 internal hemorrhoids. Ileum normal, mucosal and submucosal vascular patter throughout the colon was normal. No polyp or mass identified, no inflammatory changes. BONE DENSITY: 07/22/21 THE LOWEST T-SCORE IS -1.4 IN THE LEFT HIP ENDO CONSULT: 02/25/22 with Hortencia Based on FRAX and BMD, treatment is not recommended at this time. Calcium 1200 to 1500 mg daily recommended- begin calcium carbonate 600 mg daily with food. Weight bearing exercise as tolerated recommended. Fall precautions discussed. Repeat bmd on same machine as prior around 07/2023. Continued f/u with PCP for routine health maintenance advised. POST-TRANSPLANT GERD STUDIES: ESOPHAGEAL MANOMETRY- 08/16/22 Impressions EGJOO with spasm and hypercontractile esophagus, consistent with type III achalasia. Correlate clinically with timed barium esophagram, EGD, and symptoms of dysphagia. Spastic segment is 14 cm above the LES. pH PROBE- 08/25/22 Interpretations Normal study OFF PPI therapy with acid exposure time of 0.1%. Symptom association was negative to cough. GASTRIC EMPTYING- 08/19/22 IMPRESSION: NORMAL RATE OF GASTRIC EMPTYING OF SOLID MEAL PRE-TRANSPLANT GERD STUDIES: ESOPHAGEAL MONOMETRY: 07/22/21 Interpretation / Findings LES: Normal resting pressure, complete relaxation Body of the esophagus (supine): --7 swallows with normal peirstalsis --3 swallows with hypertensive peristalsis PH PROBE: 07/22/21 Normal study. GASTRIC EMPTYIN07/23/21 NORMAL RATE OF GASTRIC EMPTYING OF SOLID MEAL. PULMONARY FUNCTION TESTING: Date 10/04/22 FVC 2.85 3.06 4.09 5.14 69 FEV1 2.70 2.30 3.13 3.91 86 [id number] 4.59 1.20 2.62 4.59 175 Time 3.21 Date 09/01/22 FVC (L) 2.50 3.06 4.09 5.14 61 FEV1 (L) 2.37 2.31 3.14 3.92 75 [id number] (L/sec) 4.02 1.20 2.62 4.59 153 Time (sec) 2.18 Date [id number] FVC (L) 2.26 3.06 4.09 5.14 55 FEV1 (L) 2.19 2.31 3.14 3.92 69 [id number] (L/sec) 5.58 1.20 2.62 4.59 212 Time (sec) 1.90 Date 08/18/22 FVC (L) 2.23 3.06 4.09 5.14 54 FEV1 (L) 2.11 2.31 3.14 3.92 67 VUX78-90 (L/sec) 3.40 1.20 2.63 4.59 129 Time (sec) 2.35 Date: 08/11/22 FVC (L) 2.31 3.06 4.09 5.14 56 FEV1 (L) 1.95 2.31 3.14 3.92 62 [id number] (L/sec) 1.83 1.21 2.63 4.60 69 Time (sec) 4.59 Date: 06/02/22 Pre-Transplant FVC (L) 2.76 3.26 4.34 5.44 63 FEV1 (L) 0.81 2.45 3.32 4.14 24 [id number] (L/sec) 0.24 1.21 2.64 4.61 9 Time (sec) 14.94 PORTIONS OF THIS NOTE WERE TAKEN FROM NOTE DATED [id number]. ALL THE INFORMATION BY THE RN / 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 MANAGER HAS BEEN CONFIRMED, REVIEWED AND VERIFIED BY ME. CXR October 04, 2022 <-- Reviewed by Dr. Magallanes and discussed with patient Clear bilateral lung transplants without interval change CBC, Coags, BMP, Mg, Phos Liver Function, Amylase, & Lipase No results for input(s): FK506 in the last 168 hours. PHYSICAL EXAMINATION: BP 134/86 Pulse 104 Temp 36.2 C (97.2 F) Resp 18 Ht 177.8 cm (5' 10) Wt 91.6 kg (202 lb) SpO2 99% BMI 28.98 kg/m General appearance: Well appearing, alert, in no acute distress, well-hydrated, well nourished. Skin: Skin color, texture, turgor normal, no suspicious rashes or lesions Head: Normocephalic, no masses, lesions, tenderness or abnormalities Eyes: Anicteric sclera. Pupils are equally round and reactive to light. Extraocular movements are intact. Ears: External ears normal, canals clear Nose/Sinuses: Nares normal, septum midline, mucosa normal, no drainage or sinus tenderness Oropharynx: Lips, mucosa, and tongue normal, teeth and gums normal, oropharynx normal Neck: Supple, no adenopathy; thyroid symmetric, normal size, no bruits Back: Normal exam Lungs: Lungs clear to auscultation. No wheezing, rhonchi, rales. Heart: RRR without murmur, gallop, or rubs. No ectopy Abdomen: Normal abdominal exam, Abdomen soft, non-tender. Bowel sounds normal. No masses, organomegaly Extremities: No deformities, edema, skin discoloration, clubbing or cyanosis. Good capillary refill. Musculoskeletal: No joint swelling, deformity, or tenderness Peripheral pulses: Normal Neuro: Gait normal. Reflexes normal and symmetric. Sensation grossly intact. 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 # Encounter for aftercare following bilateral Lung Transplant on for COPD A1ATD - Lung allograft function improving - Continue prednisone 5 mg daily with no change today - Continue Cellcept 750 mg twice daily with no change today - Continue Tacrolimus every 12 hours - awaiting trough level today to guide possible dose adjustment for goal trough of 12 Current prophylaxes falling under the umbrella of aftercare following lung transplant # Antiviral CMV D-/R+ - continue valcyte at 900 mg daily for prophylaxis of CMV, actively needed and prescribed by me for prophylaxis # Pneumocystis Prophylaxis - continue Bactrim on //, actively needed and prescribed by me for prophylaxis # Fungal Prophylaxis - continue voriconazole daily, actively needed and prescribed by me for prophylaxis # Chronic rejection Prophylaxis - continue azithromycin actively needed and prescribed by me for prophylaxis # Cardiovascular Status - Active current and chronic essential hypertension managed by me with lopressor - Active current and chronic mixed hyperlipidemia with LDL goal <100 managed by me with atorvastatin # Gastrointestinal Status - Active current and chronic gastroesophageal reflux disease without esophagitis managed by me with proton pump inhibition # Endocrine/Bone Status - Active current and chronic steroid induced diabetes, with no complications managed by me with inaulin - Active current and chronic steroid induced osteoporosis managed by me with vitamin D, Calcium, - Care collaborated with me here at [facility] with Endocrine Bone Health and Diabetes Adult Health groups # Renal Status - Active current and 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 - Based on today's GFR, all renally dosed medications and renal interactions have been accounted for and medications adjusted - Electrolytes have been reviewed, specifics such as HYPERkalemia have been addressed with the coordinator and patient # Hematology/Oncology Status - Active monitoring of drug induced cytopenias/cellular aplasias, medications addressed/adjusted today - Coagulopathy - no - Age-appropriate cancer screening - yes # Infectious Disease Status - Active current and chronic management of MRSA, IRD During this patient visit I spent 47 minutes in the visit, with more than 50% of the total scyl-po-rrcm time of the visit in counseling / coordination of care. More specifically we discussed the patient's chest x-ray, today's lab results - most importantly immunosuppression levels and have made relevant adjustments to maintain health, wellness and stabilitypost transplant. We have coordinated with patient and consultants all follow up visits. Follow Up: 2-3 weeks with routine labs, imaging, and spirometry as well as bronch - 3 month Osbaldo Magallanes MD Staff Physician [facility], Respiratory [place] [facility] [address] [place] [address] documented in this encounterCommunity Memorial Hospital08-28-2023 History of Present illness Narrative* Jing Stark, Research Coordinator - 10/04/2022 9:34 AM EDT Summary: IRB # [id number] [facility] Lung Transplant Biorepository Belgica Angelo is here for IRB # [id number] [facility] Lung Transplant Biorepository Visit # V4 Belgica Angelo is here for 3 months post transplant visit. Subject was met in [facility] lab to obtain 5tubes of blood with their clinical blood draw and a urine sample. Next visit is due at 6 months months post transplant. Blood sample obtained? Yes Urine sample obtained? Yes Bronchoscopy sample obtained? To be obtained, not yet scheduled Jing Stark Research Coordinator Subject to continue in trial documented in this encounterCommunity Memorial Hospital08-28-2023 History of Present illness Narrative* Domi Clemente RRT - 10/04/2022 9:02 AM EDT PULM FUNCTION SMARTBLOCK: Provider: Wilbert Umanzor MD Spirometry: 1 System: 9 - [id number] documented in this encounterCommunity Memorial Hospital08-28-2023 History of Present illness Narrative* Markos Armstrong RT(R) - 10/04/2022 7:30 AM EDT Radiology Service Progress Note PATIENT NAME: Belgica Angelo DATE OF SERVICE: October 04, 2022 TIME: 9:18 AM PATIENT IDENTITY VERIFICATION COMPLETED USING TWO (2) IDENTIFIERS: Name and Date of confirmedby patient verbally. FALL SCREENING: Has the patient had 2 falls in the last year or 1 fall with injury or currently using an Ambulatory Assistive Device (Walker, Cane, Wheelchair, Crutches, etc.)? No PATIENT GENDER DATA: Male PATIENT RELEVANT IMPLANT DATA REVIEWED: Not Applicable RADIOLOGY DEPARTMENT: General X-ray: Exam(s) Completed: Chest X-Ray PERIPHERAL IV DATA: Not applicable SIGNED BY: RT Gisselle(R) October 04, 2022 9:18 AM documented in this encounterCommunity Memorial Hospital08-24-2023 Miscellaneous Notes* Telephone Encounter - Eileen Cm RPh - 09/30/2022 8:59 AM EDT Tacrolimus level was therapeutic at 11.3 (goal 10-12). Current dose is 1.5/1. Would recommend no change to current dose. Recheck labs in 2 weeks. Eileen Cm Rph * Telephone Encounter - Magda Concepcion - 09/30/2022 8:06 AM EDT Transplants: 07/20/2022 (Lung) Lab Results Component Value Date FK506 11.3 09/27/2022 CREAT 1.03 09/27/2022 K 4.9 09/27/2022 WBC 7.54 09/27/2022 ABSNEUT 5.31 09/27/2022 CMVCPY Not detected 09/27/2022 tacrolimus IR (PROGRAF) 0.5 mg capsule Sig: Take 1 capsule by mouth every morning. tacrolimus IR (PROGRAF) 1 mg capsule Sig: Take 1 capsule by mouth twice daily. documented in this encounterCommunity Memorial Hospital08-21-2023 History of Present illness Narrative* Marina Anders RN - 09/27/2022 3:45 PM EDT New Patient/Consult REASON FOR VISIT Belgica Angelo is a 66 year old male who is scheduled for GERD and achalasia at the consult requestof . Office visit w/pulm- 09/01/2022 # GI - Nutrition- eating three meals, early satiety - possible achalasia on post LTx testing ESOPHAGEAL MANOMETRY- 08/16/22 Impressions EGJOO with spasm and hypercontractile esophagus, consistent with type III achalasia. Correlate clinically with timed barium esophagram, EGD, and symptoms of dysphagia. Spastic segment is 14 cm above the LES. pH PROBE- 08/25/22 Interpretations Normal study OFF PPI therapy with acid exposure time of 0.1%. Symptom association was negative to cough. GASTRIC EMPTYING- 08/19/22 IMPRESSION: NORMAL RATE OF GASTRIC EMPTYING OF SOLID MEAL XR ABD 07/22/2022 IMPRESSION: THERE IS A PAUCITY OF SMALL BOWEL GAS. GAS PRESENT IN NORMAL CALIBER COLON. NO GAS-FILLED, DILATED BOWEL LOOPS. PH PROBE: 07/22/21 Normal study. Gastric emptying 07/23/2021 IMPRESSION: NORMAL RATE OF GASTRIC EMPTYING OF SOLID MEAL. documented in this encounterCommunity Memorial Hospital08-17-2023 Miscellaneous Notes* Addendum Note - Wilbert Umanzor MD - 09/23/2022 4:52 PM EDTAddended by: WILBERT UMANZOR on: 09/23/2022 04:52 PM Modules accepted: Orders * Telephone Encounter - Kamini Birmingham - 09/23/2022 4:21 PM EDT Received message from BREA Dooley [facility], requesting 14 day supply of pantoprazole to local [id number] [place] [address], [id number]) to tide patient over until he receives 90 day supply from mail order pharmacy. Requests 14 day supply of pantoprazole if permissible. documented in this encounterCommunity Memorial Hospital08-01-2023 Miscellaneous Notes* Telephone Encounter - Jing Vasquez LPN - 09/07/2022 3:[address] Juárez spoke with patient directly. [facility]. Jing Vasquez LPN * Telephone Encounter - Teresa Salazar LPN - 09/06/2022 9:19 AM EDT Patient called. Verified name and date of . Patient arrived back home on Tuesday after having had double lung transplant July 20, 2022 and he nolonger needs Oxygen supplies. 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 Teresa Salazar LPN documented in this encounterCommunity Memorial Hospital07-31-2023 Miscellaneous Notes* Telephone Encounter - Dolores Vu RN - 09/06/2022 8:43 AM EDT Patient informed of A0B0 biopsy. Instructed to decrease prednisone to 5mg daily. Discussed with patient how to have labs drawn locally. [facility] The following approved medication requests have been transmitted electronically. Requested Prescriptions Pending Prescriptions Disp Refills predniSONE (DELTASONE) 5 mg tablet 90 tablet 3 Sig: Take 1 tablet by mouth once daily. Dolores Vu RN documented in this encounterCommunity Memorial Hospital07-28-2023 History of Present illness Narrative* Jing Stark, Research Coordinator - 09/03/2022 1:56 PM EDT Summary: IRB # [id number] [facility] Transplant Biorepository Belgica Angelo is here for IRB # [id number] [facility] Transplant Biorepository Visit # V3 Belgica Angelo is here for 6 weeks post transplant visit. Subject was met in H23 for bronchoscopy procedure. Next visit is due at 3 months months post transplant. Blood sample obtained? No, previously obtained 08/25/2022 Urine sample obtained? No, previously obtained 08/25/2022 Bronchoscopy sample obtained? Yes, V3 bronchoscopy sample obtained 09/03/2022 and delivered to lab at 10:48 Jing Stark Research Coordinator Subject to continue in trial documented in this encounterCommunity Memorial Hospital07-27-2023 Miscellaneous Notes* Telephone Encounter - Grant Ashley RP - 09/02/2022 12:56 PM EDT Keven, [facility] would like [facility] use [facility], we need new rx due to medicare restrictions. Patient requests refill of: Requested Prescriptions Pending Prescriptions Disp Refills mycophenolate mofetil (CELLCEPT) 250 mg capsule 540 capsule 3 Sig: Take 3 capsules by mouth twice daily. predniSONE (DELTASONE) 5 mg tablet 180 tablet 3 Sig: Take 2 tablets by mouth once daily. tacrolimus IR (PROGRAF) 0.5 mg capsule 90 capsule 3 Si.5 mg in AM and 2 mg in PM. Take with 1mg capsules tacrolimus IR (PROGRAF) 1 mg capsule 360 capsule 3 Sig: Take 2 capsules by mouth twice daily. Take with 0.5mg capsules for total daily dose 2.5mg AM and 2mg PM. If approved, please e-script the attached order to [facility]. Thank you, Grant Ashley RPh [facility] [phone] documented in this encounterCommunity Memorial Hospital07-26-2023 Nurse Note* Jaqueline Biswas RN - 09/01/2022 6:34 PM EDT AMBULATORY PATIENT EDUCATION NOTE TOPIC: pre bronchoscopy instructions READINESS TO LEARN COGNITIVE ABILITY: Alert and oriented MOTIVATION TO LEARN: Interested FAMILY SUPPORT: High - Very involved in pt care INSTRUCTION PROVIDED TO: Patient and family member PATIENT LEARNS BEST BY: Verbal Instruction FACTORS AFFECTING LEARNING: None PHYSICAL LIMITATIONS AFFECTING LEARNING: None LEARNING RESPONSE DIAGNOSIS: lung disease METHOD OF INSTRUCTION: Verbal instruction FOLLOW-UP PLAN: Complete - No need for follow-up SUPPLEMENTAL MATERIAL: None REFERRAL (RECOMMENDATION): None Electronically Signed By: Jaqueline Biswas RN In Department: ADMITTING Time spent on patient education: 05 minutes. documented in this encounterCommunity Memorial Hospital07-22-2023 Miscellaneous Notes* HH PT DISCHARGE - Rudy Garland PT - 08/28/2022 10:00 AM EDT SITUATION: only patient present during today's visit. patient reports the following since the last homecare visit: medications/allergies--no changes, no fall. patient reports that he has been feeling really good overall and states that he completes HEP as prescribed. Pt states he is very active and walks alotwithin the apartment complex. BACKGROUND: Diagnoses (reason for Home Care): B lung transplant Weight Bearing/Precaution Changes: no changes ASSESSMENT: Focus of visit: DC visit Physical therapy discharged: goals achieved. Functional performance at discharge - bed mobility independent, transfers independent, ambulation independent and stairs independent. Plan of care, goals, and discharge reviewed and agreed upon with patient and/or caregiver. RECOMMENDATION: Patient discharged from home health PT, pt still active with RN Instructions to include:home exercise program as directed, follow the recommended ambulation program and follow up with provider as scheduled See intervention summary for intervention/education details. documented in this encounterCommunity Memorial Hospital07-20-2023 Miscellaneous Notes* PT ROUTINE/REASSESSMENT/RECERT/CASE MGMT - Anisha Moody PTA - 08/26/2022 1:55 PM EDT SITUATION: only patient present during today's visit. patient reports the following since the last homecare visit: medications/allergies--no changes, no fall. patient reports he ans his spouse are hoping to go home end of next week. BACKGROUND: Diagnoses (reason for Home Care): Encounter for aftercare following lung transplant; 07/20/2022 SURGERY/PROCEDURE: LUNG TRANSPLANT BILATERAL W/ CARDIOPULMONARY BYPASS (Bilateral) Weight Bearing or Surgical Precautions: sternal, abdominal ASSESSMENT: Focus of visit bed mobility, ambulation, standing balance. Plan of care, goals, and visit frequency reviewed and agreed upon with patient and/or caregiver. Current Discharge Plan: outpatient rehab Anticipate discharge by 08/28/22 RECOMMENDATION: Next visit to focus on anticipated d/c. See intervention summary for intervention/education details. documented in this encounterCommunity Memorial Hospital07-20-2023 Miscellaneous Notes* SN Routine - Demarco Ball RN - 08/26/2022 11:58 AM EDT SITUATION: Detention routine visit completed today. only patient present during today's visit. patient reports the following: Allergies--reviewed Medications--reviewed current medications Falls--None DME-NONE BACKGROUND: Reason for Home Care: s/p bilateral lung transplant. ASSESSMENT: SN greeted at door by patient no DME and demonstrates stable gait. Patient appears in no acute distress. Patient/CG concerns verbalized today: none. Vitals (see flow sheet for details): stable SN findings today: Patient doing well, looking forward to returning home next Tuesday but must have bronchoscopy done prior. He maintains log of VS, states he walked 1/2 mile this morning and continues to work with [facility] PT as well. Drains removed in office, site assessed by SN today and DSD applied. No s/sx infection. No further concerns today. See intervention summary for education details. Patient demonstrated a need for further skilled SN services for chronic disease management & education and wound/skin care. Current Discharge plan: self-care and family support RECOMMENDATION: Next visit to focus on (be specific): NOMNC, incision assessment/drain site assessment. documented in this encounterCommunity Memorial Hospital07-19-2023 Instructions* Patient Instructions* Wilbert Umanzor MD - 08/25/2022 11:07 AM EDT - GI eval - switch to tramadol, STOP oxycodone - chronic pain referral- here or at home - bronch and follow up next week documented in this encounterCommunity Memorial Hospital07-19-2023 History of Present illness Narrative* Wilbert Umanzor MD - 08/25/2022 10:15 AM EDT DI Angelo is a 66 year old male s/p Bilateral Sequential Lung Transplant with Dr. Juarez on 07/20/2022 for COPD / A1AT, here for follow up. Donor with Risk Factor Labs: none 1-2 Mo 08/19/22 DUE: HBV viral DNA: , HCV Quant RNA: , HIV RNA viral load: DOS 07/19/22: HBV viral DNA: not detected, HepBsAb: positive, HCV Quant RNA: not detected, HIV Ag/Ab: nonreactive Pre- Tx. 07/17/22: HBV viral DNA: not detected, HepBsAb: positive, HCV Quant RNA: not detected, HepCab: , HIV Ag/Ab: nonreactive MEDICAL HISTORY: COPD Bronchiectasis A1AT on augmentation therapy (proteinase inhibitor once/week) lung nodules neuropathy right foot SURGICAL HISTORY right foot hernia repair EXPLANT PATHOLOGY: FINAL DIAGNOSIS A-B. Left and right lungs, explant pneumonectomies: - Centrilobular emphysema. - Patchy organizing pneumonia with focal giant cells reaction. - Benign reactive hilar lymph nodes. C-D. Left and right donor lungs, upper lobes, wedge resections: - Small arteries with early, organizing thrombi. - No specific pathologic diagnosis. CFF/mm/07/23/2022 POST TRANSPLANT EVENTS: CMV: Donor: Negative / Recipient: Positive EBV: Donor: Negative / Recipient: Positive PGD Scores: Score T 0 = Grade 1 Score T12 = Grade 1 Score T24 = Grade 1 Score T48 = Grade 1 Score T72 = Grade 1 07/20/22 Transplanted 07/21: extubated 07/22: ID consult +streptococcus on recipient swab; transferred to [facility] 07/25: Pain, hallucinations improved. Dizzy, hypotensive w/ BP 80s/50s, high chest tube output, 500mL NSB given. 07/26: Orthostatic hypotension, 80s/50s. IVF. Repeat lactate 2.8 after 1 L IV NS. Started on midodrine. 07/28: Pain improved, continues on epidural. Persistent orthostasis, start mestinon. EKG w/ stable QTc, start SOPHIA ppx. 07/29: Hypotensive (BP 63/37), dizzy while sitting up in chair, CMET activated, BP stabilized to 117/53 w/ 500mL NSB & holding epidural. Increase mestinon dosing. Conferred w/ APMS - transition to oral pain regimen. Epidural removed. 07/30: Give dose of IVIG for hypogam. 07/31: Improvement of pain with blocks. IVIG stopped overnight due to facial flushing and redness on arm. Improvement of leukocytosis; remains on IV Zosyn. 08/02: Left large bore CT removed. Transitioned to oral pain regimen. 08/03: Pain site of former L large bore CT. CXR w/ 2 tiny pneumothoraces on right. Placed blakes x suction. 08/06: Deemed safe for discharge. Desaturation study performed- did not qualify for oxygen. Discharged with bilateral ana drains to bulb suction with follow up appointment with CTS requested. Tacrolimus level was 12.1 on 3mg in AM and 2.5mg in PM. Scheduled for lung transplant clinic on 08/11/22 with 3 week surveillance bronchoscopy scheduled for 08/13/22. BRONCHOSCOPY: ?? AIRWAY, airway MD: ?? 6 wk: DUE 08/31/22 3 wk: 08/13/22: A0B0 DONOR SPECIFIC ANTIBODY (DSA): 08/11/22: No Donor specific HLA antibody was detected 07/30/22: No Donor specific HLA antibody was detected ALLERGIES: Allergen Reactions Nsaids (Non-Steroid* Contraindication-Medical Surgical Penicillins Upset stomach GI Upset CURRENT MEDICATIONS: Current Outpatient Medications Medication Sig Dispense Refill voriconazole (VFEND) 200 mg tablet Take 1 tablet by mouth every 12 hours. 60 tablet 2 furosemide (LASIX) 40 mg tablet Take 1 tablet by mouth once daily as needed. predniSONE (DELTASONE) 10 mg tablet Take 1 tablet by mouth once daily. 60 tablet 11 lidocaine (LMX) 4 % cream Apply to affected area as needed (pain around incision site). (Patient taking differently: Apply 1 application to affected area as needed (pain around incision site).) 30 g 0 acetaminophen (TYLENOL) 325 mg tablet Take 2 tablets by mouth every 6 hours as needed for pain. 240tablet 0 tacrolimus IR (PROGRAF) 1 mg capsule Take 3 capsules by mouth in the morning and 2 capsules by mouth in the evening (take with one 0.5 mg capsule for a total evening dose of 2.5 mg) 150 capsule 11 tacrolimus IR (PROGRAF) 0.5 mg capsule Take one capsule by mouth in the evening for total evening dose of 2.5 mg 60 capsule 11 camphor-methyl salicyl-menthol (SALONPAS) 3.1-10-6 % ptmd Use as needed for back pain, joint pain, and pain around clamshell incision. Apply 12 hours on and 12 hours off (Patient taking differently: Apply 1 Patch as directed once daily as needed (pain). Use as needed for back pain, joint pain, and pain around clamshell incision. Apply 12 hours on and 12 hours off) 60 Patch 1 azithromycin (ZITHROMAX) 250 mg tablet Take 1 tablet by mouth every Tuesday,Tuesday,Tuesday. 12 tablet 11 atorvastatin (LIPITOR) 10 mg tablet Take 1 tablet by mouth daily at bedtime. 30 tablet 11 insulin lispro (HUMALOG KWIKPEN INSULIN) 100 unit/mL Check your blood glucose three times daily before meals and inject sliding scale insulin as listed below: Administer correction insulin regardless of meal or nutrition. If blood glucose is less than 70 mg/dL implement hypoglycemia treatment orders and notify provider. If Blood Glucose (mg/dL) is <110 Give 0 units 111-150 Give 0 units 151-200 Give 2 unit 201-250 Give 4 units 251-300 Give 6 units 301-350 Give 8 units 351-400 Give 10 units >400 Give 10 units and notify physician Notify provider if 2 consecutive blood glucose values in the previous 24 hours are greater than 250mg/mL and there have been no changes to the insulin regimen in the previous 24 hours. 15 mL 11 Insulin [place], Disposable, (BD ULTRA-FINE RADHA PEN NEEDLE) 32 gauge x 5/32 Use 1 Each three times daily before meals. 100 Each 11 blood sugar diagnostic (aWhereTOUCH VERIO TEST STRIPS) test strip Use as instructed; check your blood glucose three times daily before meals. 100 Each 11 lancets (aWhereTOUCH DELICA PLUS LANCET) 33 gauge Use 1 Each three times daily before meals. 100 Each 11 alcohol swabs (ALCOHOL PADS) Apply 1 Each to affected area three times daily before meals. 100 Each11 albuterol (PROVENTIL) 2.5 mg /3 mL (0.083 %) nebulizer solution Use 3 mL via nebulizer every Tuesday,Tuesday,Tuesday. 75 mL 11 mycophenolate mofetil (CELLCEPT) 250 mg capsule Take 3 capsules by mouth twice daily. 180 capsule 11 ondansetron (ZOFRAN) 4 mg tablet Take 1 tablet by mouth every 8 hours as needed for nausea/vomiting. [address] (PROTONIX) 20 mg tablet Take 1 tablet by mouth DAILY (6 AM). 30 tablet 11 polyethylene glycol 3350 (MIRALAX) 17 gram packet Take 1 packet by mouth three times daily. Dissolve dose in 4 - 8 ounces of liquid and take as directed. 100 Each 11 senna-docusate (SENNA-S) 8.6-50 mg per tablet 2 tablets by ORAL/FEEDING TUBE route twice daily. sulfamethoxazole-trimethoprim (BACTRIM DS) 800-160 mg per tablet Take 1 tablet by mouth every Tuesday,Tuesday,Tuesday. 12 tablet 11 valGANciclovir (VALCYTE) 450 mg tablet Take 2 tablets by mouth daily with breakfast. 60 tablet 11 magnesium oxide (MAG-OX) 400 mg (241.3 mg magnesium) tablet Take 1 tablet by mouth twice daily. 60 tablet 11 phosphorus (K PHOS NEUTRAL) 250 mg tablet Take 1 tablet by mouth twice daily. 60 tablet 11 traMADol (ULTRAM) 50 mg tablet Take 1 tablet by mouth every 4 hours as needed for pain (for pain.).56 tablet 0 No current facility-administered medications for this visit. NEW COMPLAINTS: Patient here for 3rd follow up visit. At last visit, patient saw CTS who removed left bulb drain but patient became diaphoretic and hypotensive. Oral hydration given and patient had appointment with CTS on 08/24 for right bulb removal. Patient had pH testing on 08/23/22. Patient presents today walking and on RA. Currently residing at [facility]. C and PT visiting patient. Patient endorses intermittent cough with clear sputum. Denies wheezing or SOB at rest. Some SOBon exertion. SOB may be contributed to anxiety. Walking for exercise as well. Afebrile. Home Spirometry readings: FEV1 1.6-2.0L and FVC 1.9-2.1L. Go FRANCA readings reviewed by MD and discussed with patient. PFTs today up 2% since last visit. Incisions clam shell healing well. Blakes removed by CTS,right removed yesterday Home BP 110-120/60-70s and HR 80-100s. Today BP 118/97 and HR 101. Currently on no BP medications. Denies chest pain, palpitations, or BLE edema. Has Lasix PRN, not taking. Appetite is good. Eats 3 meals a day. Weight today stable since last visit. Denies nausea, vomitingor ROMOE symptoms. Patient taking Protonix for reflux prevention. BS checked once daily, under 100. Moving bowels daily, denies any diarrhea. Takes stool softener daily. Tremors mild. Sleep still poor, sleeping in recliner. Patient is doing well with medications and routine with his . ID: CMV: Donor: Negative / Recipient: Positive EBV: Donor: Negative / Recipient: Positive. Currently on Valcyte 900mg once daily, Voriconazole 200 mg twice daily, Ambisome 25mg nebulized on (x 1 week), and Bactrim DS every Tuesday, Tuesday and Tuesday. Taking Azithromycin 250 mg and Atorvastatin 10 mg daily. REVIEW OF SYSTEMS: GENERAL: Weight stable since last visit. No malaise or fevers HEENT: Negative for frequent or significant headaches, No changes in hearing or vision, no nose bleeds or other nasal problems NECK: Negative for lumps, goiter, pain and significant neck swelling RESPIRATORY: See HPI CARDIOVASCULAR: See HPI GI: No nausea, vomiting, or diarrhea : No history of dysuria, frequency or incontinence MUSCULOSKELETAL: Negative for joint pain or swelling, back pain or muscle pain SKIN: Negative for lesions, rash, and itching PSYCH: Negative for sleep disturbance, mood disorder and recent psychosocial stressors HEMATOLOGY/LYMPHOLOGY: Negative for prolonged bleeding, bruising easily or swollen nodes ENDOCRINE: Negative for cold or heat intolerance, polyuria, polydipsia and goiter NEURO: No history of headaches, syncope, paralysis, seizures or tremors PATIENT TRANSPLANT KARNOFSKY INDEX AND LANSKY SCALE 80% - Normal activity with effort: some symptoms of disease. Dolores Vu RN Patient Working? No, on medical disability since 2011 IMMUNIZATIONS: Hep A: 04/13/21; 07/22/21 (11/18/21) positive Hep B: 04/13/21; 07/22/21;02/24/22 (07/17/22) positive Flu vaccine: 11/18/21 Prevnar 20: 07/22/21 COVID 19 vaccine - Moderna ( 12/12/2020, 05/08/2020, 04/10/2020); 11/18/21 Shingles: 04/19/2019, 11/16/2018 PPD/TB Quant: 04/13/21 Negative Tetanus booster: 04/13/21 HEALTH MAINTENANCE: PSA: 02/24/22 0.18 Dermatology - needs scheduled COLONOSCOPY: 01/30/13 ([facility]) Rectal mucosa normal. Grade 1 internal hemorrhoids. Ileum normal, mucosal and submucosal vascular patter throughout the colon was normal. No polyp or mass identified, no inflammatory changes. BONE DENSITY: 07/22/21 THE LOWEST T-SCORE IS -1.4 IN THE LEFT HIP ENDO CONSULT: 02/25/22 with Hortencia Based on FRAX and BMD, treatment is not recommended at this time. Calcium 1200 to 1500 mg daily recommended- begin calcium carbonate 600 mg daily with food. Weight bearing exercise as tolerated recommended. Fall precautions discussed. Repeat bmd on same machine as prior around 07/2023. Continued f/u with PCP for routine health maintenance advised. POST-TRANSPLANT GERD STUDIES: ESOPHAGEAL MANOMETRY- 08/16/22 Impressions EGJOO with spasm and hypercontractile esophagus, consistent with type III achalasia. Correlate clinically with timed barium esophagram, EGD, and symptoms of dysphagia. Spastic segment is 14 cm above the LES. pH PROBE- scheduled 08/23/22 - PENDING GASTRIC EMPTYING- 08/19/22 IMPRESSION: NORMAL RATE OF GASTRIC EMPTYING OF SOLID MEAL PRE-TRANSPLANT GERD STUDIES: ESOPHAGEAL MONOMETRY: 07/22/21 Interpretation / Findings LES: Normal resting pressure, complete relaxation Body of the esophagus (supine): --7 swallows with normal peirstalsis --3 swallows with hypertensive peristalsis PH PROBE: 07/22/21 Normal study. GASTRIC EMPTYIN07/23/21 NORMAL RATE OF GASTRIC EMPTYING OF SOLID MEAL. PULMONARY FUNCTION TESTING: Date [id number] FVC (L) 2.26 3.06 4.09 5.14 55 FEV1 (L) 2.19 2.31 3.14 3.92 69 BJL59-12 (L/sec) 5.58 1.20 2.62 4.59 212 Time (sec) 1.90 Date 08/18/22 FVC (L) 2.23 3.06 4.09 5.14 54 FEV1 (L) 2.11 2.31 3.14 3.92 67 LXN19-90 (L/sec) 3.40 1.20 2.63 4.59 129 Time (sec) 2.35 Date: 08/11/22 FVC (L) 2.31 3.06 4.09 5.14 56 FEV1 (L) 1.95 2.31 3.14 3.92 62 VAM17-96 (L/sec) 1.83 1.21 2.63 4.60 69 Time (sec) 4.59 Date: 06/02/22 Pre-Transplant FVC (L) 2.76 3.26 4.34 5.44 63 FEV1 (L) 0.81 2.45 3.32 4.14 24 LFH90-15 (L/sec) 0.24 1.21 2.64 4.61 9 Time (sec) 14.94 Physical Examination Physical Exam above was completed in entirety 08/25/22, and is unchanged from the last visit conducted by Wilbert Umanzor MD Except where noted in bold 08/25/22 0929 BP: 118/79 Pulse: 101 Resp: 18 Temp: 36.5 C (97.7 F) SpO2: 98% Weight: 92.1 kg (203 lb) Height: 177.8 cm (5' 10) General: Well developed, well nourished ,in no apparent distress Head: Normal cephalic ENT: No sinus tenderness, Neck: Supple Chest: Normal vesicular breath sounds. Clamshell healing well, stapels in place Cardiac: Regular rate and rhythm Abdomen: Soft, non-tender, non-distended Extremities: No clubbing, cyanosis or edema Skin/hair: No rash or suspicious lesions. Neurologic: grossly normal Impression/Plan: # Graft Function: ANEESH- 07-20-22 for COPD/ AAT deficiency - Graft function - doing well, on RA, improving PFTs - Immune suppression- tacrolimus, MMF, prednisone 10 - CLAD ppx- azithro, lipitor - Airway - no known issues - No DSA # ID: - ID ppx- bactrim, vori, valcyte - Hypo IGG- post LTx- >500 on last check on 08-11-22, reaction with IVIG # CV - orthostatic hypotension- post LTx, resolved # Renal:no issues # GI - Nutrition- eating three meals, early satiety - possible achalasia on post LTx testing # Endo: - steroid induced hyperglycemia- NOT needing insulin # Heme/ onc - counts stable, continue to monitor on IS Plan - GI eval for possible achalasia - switch to tramadol, STOP oxycodone, this was his regimen pre LTX for chronic pain. Will follow back with pain medicine - 6 week bronch next week - continue tacro goal 10-12, MMF, prednisone 10 - they are planning to head back home in 1-2 weeks - RTC in 1 week after bronch Wilbert Umanzor MD I spent a total of 45 minutes on the date of the service which included preparing to see the patient, [id number] patient care, and completing clinical documentation. documented in this encounterCommunity [facility]07-[facility] History of Present illness Narrative* Trav Bolaños RRT - 08/25/2022 8:58 AM EDT PULM FUNCTION SMARTBLOCK: Provider: Wilbert Uamnzor MD Spirometry: 1 System: 5 - [id number] documented in this encounterCommunity [facility]07-19-2023 History of Present illness Narrative* Markos Armstrong RT(R) - 08/25/2022 8:00 AM EDT Radiology Service Progress Note PATIENT NAME: Belgica Angelo DATE OF SERVICE: August 25, 2022 TIME: 8:29 AM PATIENT IDENTITY VERIFICATION COMPLETED USING TWO (2) IDENTIFIERS: Name and Date of confirmedby patient verbally. FALL SCREENING: Has the patient had 2 falls in the last year or 1 fall with injury or currently using an Ambulatory Assistive Device (Walker, Cane, Wheelchair, Crutches, etc.)? No PATIENT GENDER DATA: Male PATIENT RELEVANT IMPLANT DATA REVIEWED: Not Applicable RADIOLOGY DEPARTMENT: General X-ray: Exam(s) Completed: Chest X-Ray PERIPHERAL IV DATA: Not applicable SIGNED BY: RT Gisselle(R) August 25, 2022 8:29 AM documented in this encounterCommunity [facility]07-18-2023 History of Present illness Narrative* Gamal Perry APRN.CNP - 08/24/2022 11:57 AM EDT Images from the original note were not included. [facility] [place] [facility] Department of Cardiovascular Medicine DEPARTMENT OF CARDIAC SURGERY OUTPATIENT VISIT DATE August 17, 2022 OUTPATIENT VISIT TYPE FOLLOW UP Belgica Angelo is a 66 year old male who is here for return post op follow up visit. Most recent Cardiac Surgery: S/p 07/20/2022 [facility] Surgeon:Shonda Juarez MD Operation:Bilateral lung transplantation via Clamshell incision with assistance of VA ECMO (Centralaortic 21 Fr cannula, 26 Fr Right femoral venous drainage cannula) , MELVIN and RUL Wedge resections Discharged on 08/06/2022 HPI: Patient presents today for ana drain removal. Allergies: ALLERGIES Allergen Reactions Nsaids (Non-Steroid* Contraindication-Medical Surgical Penicillins GI Upset Medications: Current Outpatient Medications Medication Sig furosemide (LASIX) 40 mg tablet Take 1 tablet by mouth once daily as needed. oxyCODONE IR (ROXICODONE) 5 mg immediate release tablet Take 1 tablet by mouth every 6 hours as needed for pain. predniSONE (DELTASONE) 10 mg tablet Take 1 tablet by mouth once daily. lidocaine (LMX) 4 % cream Apply to affected area as needed (pain around incision site). (Patient taking differently: Apply 1 application to affected area as needed (pain around incision site).) phosphorus (K PHOS NEUTRAL) 250 mg tablet Take 1 tablet by mouth twice daily. magnesium oxide (MAG-OX) 400 mg (241.3 mg magnesium) tablet Take 1 tablet by mouth twice daily. acetaminophen (TYLENOL) 325 mg tablet Take 2 tablets by mouth every 6 hours as needed for pain. tacrolimus IR (PROGRAF) 1 mg capsule Take 3 capsules by mouth in the morning and 2 capsules by mouth in the evening (take with one 0.5 mg capsule for a total evening dose of 2.5 mg) tacrolimus IR (PROGRAF) 0.5 mg capsule Take one capsule by mouth in the evening for total evening dose of 2.5 mg camphor-methyl salicyl-menthol (SALONPAS) 3.1-10-6 % ptmd Use as needed for back pain, joint pain, and pain around clamshell incision. Apply 12 hours on and 12 hours off (Patient taking differently: Apply 1 Patch as directed once daily as needed (pain). Use as needed for back pain, joint pain, and pain around clamshell incision. Apply 12 hours on and 12 hours off) azithromycin (ZITHROMAX) 250 mg tablet Take 1 tablet by mouth every Tuesday,Tuesday,Tuesday. atorvastatin (LIPITOR) 10 mg tablet Take 1 tablet by mouth daily at bedtime. voriconazole (VFEND) 200 mg tablet Take 1 tablet by mouth every 12 hours. albuterol (PROVENTIL) 2.5 mg /3 mL (0.083 %) nebulizer solution Use 3 mL via nebulizer every Tuesday,Tuesday,Tuesday. mycophenolate mofetil (CELLCEPT) 250 mg capsule Take 3 capsules by mouth twice daily. ondansetron (ZOFRAN) 4 mg tablet Take 1 tablet by mouth every 8 hours as needed for nausea/vomiting. pantoprazole DR (PROTONIX) 20 mg tablet Take 1 tablet by mouth DAILY (6 AM). polyethylene glycol 3350 (MIRALAX) 17 gram packet Take 1 packet by mouth three times daily. Dissolve dose in 4 - 8 ounces of liquid and take as directed. senna-docusate (SENNA-S) 8.6-50 mg per tablet 2 tablets by ORAL/FEEDING TUBE route twice daily. sulfamethoxazole-trimethoprim (BACTRIM DS) 800-160 mg per tablet Take 1 tablet by mouth every Tuesday,Tuesday,Tuesday. valGANciclovir (VALCYTE) 450 mg tablet Take 2 tablets by mouth daily with breakfast. insulin lispro (HUMALOG KWIKPEN INSULIN) 100 unit/mL Check your blood glucose three times daily before meals and inject sliding scale insulin as listed below: Administer correction insulin regardless of meal or nutrition. If blood glucose is less than 70 mg/dL implement hypoglycemia treatment orders and notify provider. If Blood Glucose (mg/dL) is <110 Give 0 units 111-150 Give 0 units 151-200 Give 2 unit 201-250 Give 4 units 251-300 Give 6 units 301-350 Give 8 units 351-400 Give 10 units >400 Give 10 units and notify physician Notify provider if 2 consecutive blood glucose values in the previous 24 hours are greater than 250mg/mL and there have been no changes to the insulin regimen in the previous 24 hours. Insulin [place], Disposable, (BD ULTRA-FINE RADHA PEN NEEDLE) 32 gauge x 5/32 Use 1 Each three times daily before meals. blood sugar diagnostic (aWhereTOUCH VERIO TEST STRIPS) test strip Use as instructed; check your blood glucose three times daily before meals. lancets (aWhereTOUCH DELICA PLUS LANCET) 33 gauge Use 1 Each three times daily before meals. alcohol swabs (ALCOHOL PADS) Apply 1 Each to affected area three times daily before meals. No current facility-administered medications for this visit. Medications and Allergies have been reviewed. Pain scale :Yes notable back pain better managed Appetite: improving Activity: Walking ad johny around the house Elimination: normal, no constipation , urination is normal Sleep: difficulty staying asleep Incisions/Wounds: healing Do you feel safe in the home? Yes Gamal Perry APRN.ELISHA CC: I feel good, ready to get this out PE: BP 126/74 Pulse 102 Temp 36.8 C (98.2 F) (Oral) Ht 177.8 cm (5' 10) Wt 91.9 kg (202 lb 8 oz) SpO2 98% BMI 29.06 kg/m Appearance: well groomed, white male, in no acute distress Cardiac: regular S1, S2, No murmur, No rub Lungs: Clear breath sounds bilaterally Extremities: Edema: bilateral Trace Clam shell thoracotomy site: healing, clean, dry and intact Wound: na Right groin sites: healing and clean, dry and intact Procedures: Right ana drain removed without difficulty. Vaseline gauze dressing placed. Lung CTA pre and post removal. Patient tolerated well. Wound care reviewed with patient and . IMPRESSION & PLAN: 1.S/p 07/20/2022 [facility] Surgeon:Shonda Juarez MD Operation:Bilateral lung transplantation via Clamshell incision with assistance of VA ECMO (Centralaortic 21 Fr cannula, 26 Fr Right femoral venous drainage cannula) , MELVIN and RUL Wedge resections Discharged on 08/06/2022 2. Ana drain removal - iron drainage < 100cc the last 5 days - 1st bronch completed on 08/14 - right ana drain removed without difficulty. - pt tolerated well - wound care reviewed with patient and with understanding. - pt and agree to poc - continue deep breathing exercises and walking CXR:08/18/2022 Reviewed, final results REFERRAL (RECOMMENDATION): Cardiothoracic OPD for continued follow-up Electronically Signed By Gamal Perry APRN.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 MANAGER In Department: CARDIOTHORACIC Gamal Perry APRN.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 MANAGER documented in this encounterCommunity [facility] Hospital07-17-2023 Miscellaneous Notes* Case Communication - Anisha Moody PTA - 08/23/2022 3:30 PM EDTTUG completed in 9.72 seconds with no AD. please address transfer goals. Pt requested your d/c visit to be Tuesday. Thanks! Sabrina * PT ROUTINE/REASSESSMENT/RECERT/CASE MGMT - Anisha Moody PTA - 08/23/2022 2:45 PM EDT SITUATION: spouse present during today's visit. patient reports the following since the last homecare visit: medications/allergies--no changes, no fall. spouse reports the patient over did it on Tuesday and took it easy on Tuesday. BACKGROUND: Diagnoses (reason for Home Care): Encounter for aftercare following lung transplant; 07/20/2022 SURGERY/PROCEDURE: LUNG TRANSPLANT BILATERAL W/ CARDIOPULMONARY BYPASS (Bilateral) Weight Bearing or Surgical Precautions: sternal, abdominal ASSESSMENT: Focus of visit ambulation, stairs per pt request, TUG, 4 stage balance. Plan of care, goals, and visit frequency reviewed and agreed upon with patient and/or caregiver. Current Discharge Plan: outpatient rehab Anticipate discharge by 08/28/22 RECOMMENDATION: Next visit to focus on anticipated d/c. See intervention summary for intervention/education details. documented in this encounterCommunity [facility]07-15-2023 Miscellaneous Notes* PT ROUTINE/REASSESSMENT/RECERT/CASE [facility] - Osbaldo Tadeo PTA - 08/21/2022 8:45 AM EDT SITUATION:spouse present during today's visit. patient reports the following since the last homecare visit: medications/allergies--no changes, no fall. patient reports feeling good but a little sore but happy with his overall progress. pt stated that he walked a combined 3 miles yesterday total. BACKGROUND: Diagnoses (reason for Home Care): Encounter for aftercare following lung transplant; 07/20/2022 SURGERY/PROCEDURE: LUNG TRANSPLANT BILATERAL W/ CARDIOPULMONARY BYPASS (Bilateral) Weight Bearing or Surgical Precautions: sternal, abdominal ASSESSMENT:Focus of visit held off ther ex/amb this session due to elevated HR at rest over 100. educated pt to keep and eye on HR and if he gets any sypmtoms to let his doctor know. educated pt to not over do his ther ex/amb also and to allow for proper rest and recover. Plan of care, goals, and visit frequency reviewed and agreed upon with patient and/or caregiver. Current Discharge Plan: outpatient rehab. Anticipate discharge by 08/28/22 RECOMMENDATION:Next visit to focus on LE strength/mobility, gait distance/endurance See intervention summary for intervention/education details. documented in this encounterCommunity [facility]07-13-2023 Miscellaneous Notes* Telephone Encounter - Ina Palacios RN - 08/19/2022 3:39 PM EDT Labs reviewed with Dr. Umanzor. No dosage adjustments indicated at this time since levels are therapeutic. Patient informed of levels and instructed to have labs draw on 08/25 OPD. documented in this encounterCommunity [facility]07-13-2023 Miscellaneous Notes* PT ROUTINE/REASSESSMENT/RECERT/CASE MGMT - Anisha Moody PTA - 08/19/2022 2:25 PM EDT SITUATION: only patient present during today's visit. patient reports the following since the last homecare visit: medications/allergies--no changes, no fall. patient reports he feels like he is doing well. Pt reports he has already walked 1.25+ miles today. 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 Plan of care, goals, and visit frequency reviewed and agreed upon with patient and/or caregiver. Current Discharge Plan: outpatient rehab Anticipate discharge by 08/28/22 RECOMMENDATION: Next visit to focus on HEP progression. See intervention summary for intervention/education details. documented in this encounterCommunity [facility]07-13-2023 History of Present illness Narrative* Tushar Martinez, RT(R) - 08/19/2022 7:30 AM EDT RADIOLOGY SERVICE PROGRESS NOTE SERVICE DATE: 08/19/2022 SERVICE TIME: 9:36 AM PATIENT IDENTITY VERIFICATION COMPLETED USING TWO (2) STANDARD IDENTIFIERS: Name and Date of confirmed by patient verbally and Name and Date of confirmed by identification band FALL SCREENING: Has the patient had 2 falls in the last year or 1 fall with injury or currently using an Ambulatory Assistive Device (Walker, Cane, Wheelchair, Crutches, etc.)? Yes, Patient High Riskfor Falls What interventions were put in place to prevent falls during this visit? [place] Risk Wristband Applied and Offered Assistance with Transfers/Clothing PATIENT GENDER DATA: .male : No ALLERGIES: Reviewed and unchanged MEDICATIONS REVIEWED: No PATIENT RELEVANT IMPLANT DATA REVIEWED: Not Applicable CREATININE: Creatinine Date Value Ref Range Status 08/18/2022 0.80 0.73 - 1.22 mg/dL Final 08/11/2022 0.90 0.73 - 1.22 mg/dL Final 08/06/2022 0.66 (L) 0.73 - 1.22 mg/dL Final Estimated Glomerular Filtration Rate Date Value Ref Range Status 08/18/2022 98 >=60 mL/min/1.73m Final Comment: Estimated Glomerular Filtration Rate (eGFR) is calculated using the 2020 CKD-EPI creatinine equation. This equation utilizes serum creatinine, sex, and age as parameters. The creatinine assay has traceable calibration to isotope dilution- mass spectrometry. Refer to KDIGO guidelines for clinical interpretation. In patients with unstable renal function, e.g. those with acute kidney injury, the eGFRmay not accurately reflect actual GFR. P.O.C.T. RESULTS: N/A August 19, [address] PERFORMED: No IV SITE: NM only - not applicable, oral or physician administered agents given to patient POST EXAM PIV STATUS: Not applicable PROCEDURE TYPE: NM GET: 1.1 mCi Tc99m SULFUR COLLOID was administered orally via 4 ounces of Egg Beaters,2 pieces of toast, 1 ounce of jelly with 4 ounces of water orally ADMINISTRATION TIME: 7:43am PATIENT DISCHARGED TO: Ambulatory patient, left NM department area. A Diagnostic radioactive procedure has taken place, with no further precautions necessary other than routine body substance precautions. More information regarding radiation safety can be found usingthis link: [email or web address] SIGNATURE: RT Bang([place]) PATIENT NAME: Belgica Angelo DATE: August 19, 2022 TIME: 9:36 AM PAGER/CONTACT #: documented in this encounterCommunity [facility] History of Present illness Narrative* Gamal Perry APRN.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 MANAGER - 08/18/2022 11:00 AM EDT Images from the original note were not included. [facility] [place] [facility] Department of Cardiovascular Medicine DEPARTMENT OF CARDIAC SURGERY OUTPATIENT VISIT DATE August 17, 2022 OUTPATIENT VISIT TYPE FOLLOW UP Belgica Angelo is a 66 year old male who is here for return post op follow up visit. Most recent Cardiac Surgery: S/p 07/20/2022 [facility] Surgeon:Shonda Juarez MD Operation:Bilateral lung transplantation via Clamshell incision with assistance of [facility] ECMO (Centralaortic 21 Fr cannula, 26 Fr Right femoral venous drainage cannula) , MELVIN and RUL Wedge resections Discharged on 08/06/2022 HPI: Patient presents today for staple removal and possible ana drain removal. Allergies: ALLERGIES Allergen Reactions Nsaids (Non-Steroid* Contraindication-Medical Surgical Penicillins GI Upset Medications: Current Outpatient Medications Medication Sig oxyCODONE IR (ROXICODONE) 5 mg immediate release tablet Take 1 tablet by mouth every 8 hours as needed for pain. predniSONE (DELTASONE) 10 mg tablet Take 1 tablet by mouth once daily. furosemide (LASIX) 40 mg tablet Take 1 tablet by mouth every other day. lidocaine (LMX) 4 % cream Apply to affected area as needed (pain around incision site). (Patient taking differently: Apply 1 application to affected area as needed (pain around incision site).) phosphorus (K PHOS NEUTRAL) 250 mg tablet Take 1 tablet by mouth twice daily. magnesium oxide (MAG-OX) 400 mg (241.3 mg magnesium) tablet Take 1 tablet by mouth twice daily. acetaminophen (TYLENOL) 325 mg tablet Take 2 tablets by mouth every 6 hours as needed for pain. tacrolimus IR (PROGRAF) 1 mg capsule Take 3 capsules by mouth in the morning and 2 capsules by mouth in the evening (take with one 0.5 mg capsule for a total evening dose of 2.5 mg) tacrolimus IR (PROGRAF) 0.5 mg capsule Take one capsule by mouth in the evening for total evening dose of 2.5 mg camphor-methyl salicyl-menthol (SALONPAS) 3.1-10-6 % ptmd Use as needed for back pain, joint pain, and pain around clamshell incision. Apply 12 hours on and 12 hours off (Patient taking differently: Apply 1 Patch as directed once daily as needed (pain). Use as needed for back pain, joint pain, and pain around clamshell incision. Apply 12 hours on and 12 hours off) azithromycin (ZITHROMAX) 250 mg tablet Take 1 tablet by mouth every Tuesday,Tuesday,Tuesday. atorvastatin (LIPITOR) 10 mg tablet Take 1 tablet by mouth daily at bedtime. voriconazole (VFEND) 200 mg tablet Take 1 tablet by mouth every 12 hours. insulin lispro (HUMALOG KWIKPEN INSULIN) 100 unit/mL Check your blood glucose three times daily before meals and inject sliding scale insulin as listed below: Administer correction insulin regardless of meal or nutrition. If blood glucose is less than 70 mg/dL implement hypoglycemia treatment orders and notify provider. If Blood Glucose (mg/dL) is <110 Give 0 units 111-150 Give 0 units 151-200 Give 2 unit 201-250 Give 4 units 251-300 Give 6 units 301-350 Give 8 units 351-400 Give 10 units >400 Give 10 units and notify physician Notify provider if 2 consecutive blood glucose values in the previous 24 hours are greater than 250mg/mL and there have been no changes to the insulin regimen in the previous 24 hours. Insulin [place], Disposable, (BD ULTRA-FINE RADHA PEN NEEDLE) 32 gauge x 5/32 Use 1 Each three times daily before meals. blood sugar diagnostic (aWhereTOUCH VERIO TEST STRIPS) test strip Use as instructed; check your blood glucose three times daily before meals. lancets (aWhereTOUCH DELICA PLUS LANCET) 33 gauge Use 1 Each three times daily before meals. alcohol swabs (ALCOHOL PADS) Apply 1 Each to affected area three times daily before meals. albuterol (PROVENTIL) 2.5 mg /3 mL (0.083 %) nebulizer solution Use 3 mL via nebulizer every Tuesday,Tuesday,Tuesday. amphotericin B liposomal (AMBISOME) 50 mg injection Inhale 25 mg as instructed every Tuesday,Tuesday,Tuesday. mycophenolate mofetil (CELLCEPT) 250 mg capsule Take 3 capsules by mouth twice daily. ondansetron (ZOFRAN) 4 mg tablet Take 1 tablet by mouth every 8 hours as needed for nausea/vomiting. pantoprazole DR (PROTONIX) 20 mg tablet Take 1 tablet by mouth DAILY (6 AM). polyethylene glycol 3350 (MIRALAX) 17 gram packet Take 1 packet by mouth three times daily. Dissolve dose in 4 - 8 ounces of liquid and take as directed. senna-docusate (SENNA-S) 8.6-50 mg per tablet 2 tablets by ORAL/FEEDING TUBE route twice daily. sulfamethoxazole-trimethoprim (BACTRIM DS) 800-160 mg per tablet Take 1 tablet by mouth every Tuesday,Tuesday,Tuesday. valGANciclovir (VALCYTE) 450 mg tablet Take 2 tablets by mouth daily with breakfast. No current facility-administered medications for this visit. Medications and Allergies have been reviewed. Pain scale :Yes notable back pain not well manage Appetite: improving Activity: Walking ad johny around the house Elimination: normal, no constipation , urination is normal Sleep: difficulty staying asleep Incisions/Wounds: healing Do you feel safe in the home? Yes Gamal Perry APRN.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 MANAGER CC: I feel good get this out PE: BP 116/72 Pulse 102 Temp 36.6 C (97.9 F) (Oral) Ht 177.8 cm (5' 10) Wt 91.1 kg (200 lb 12.8 oz) SpO2 99% BMI 28.81 kg/m Appearance: well groomed, white male, in no acute distress Cardiac: regular S1, S2, No murmur, No rub Lungs: Clear breath sounds bilaterally Extremities: Edema: bilateral Trace Clam shell thoracotomy site: healing, clean, dry and intact Wound: na Right groin sites: healing and clean, dry and intact Procedures: [place] and sutures removed from sternotomy site without difficulty. Left ana drain removed without difficulty. Vaseline gauze dressing placed. Pt noted lightheadedness and diaphoretic. Bp dropped to 90/60. Oral hydration given. Symptoms resolved. Right ana drains re-dressed and to be removed next appointment. IMPRESSION & PLAN: 1.S/p 07/20/2022 [facility] Surgeon:Shonda Juarez MD Operation:Bilateral lung transplantation via Clamshell incision with assistance of VA ECMO (Centralaortic 21 Fr cannula, 26 Fr Right femoral venous drainage cannula) , MELVIN and RUL Wedge resections Discharged on 08/06/2022 2. Aan drain removal - iron drainage < 100cc the last 5 days - 1st bronch to be completed on 08/14 - Left ana drain removed without difficulty. - Patient did have a slight vagal episode after removal with lightheadedness, diaphoretic and bp drop to 90 systolic. - after hydration symptoms resolved - advised d/t above will remove Right ana drain next week since unfortunately no openings rest ofthis week - pt and agree to poc - continue deep breathing exercises and walking CXR:08/18/2022 Reviewed, final results pending REFERRAL (RECOMMENDATION): Cardiothoracic [facility] for continued follow-up Electronically Signed By Gamal Perry APRN.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 MANAGER In Department: CARDIOTHORACIC Gamal Perry APRN.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 MANAGER documented in this encounterCommunity [facility]07-11-[facility]23 Miscellaneous Notes* OT EVALUATION/REASSESSMENT/RECERT - Keisha Chang OTR/L - 08/17/2022 1:03 PM EDT SITUATION: spouse present during today's visit. patient reports the following since the last homecare visit: medications/allergies--no changes, no fall. BACKGROUND: Diagnoses or reason for home care: s/p bilateral lung transplant Past medical history: COPD, anxiety, obesity Weight Bearing or Precautions: Post transplant, standard, Falls ASSESSMENT: [facility] Reviewed and explained homecare services. Plan of care, goals and visit frequency developed, reviewed, and agreed upon with patient and/or caregiver. Patient identified goals: return home. Patient does not require continued occupational therapy at this time. Has necessary DME in place, demonstrates safety with ADLs and light IADLs. Spouse assisting as needed and available 30/08. Current Discharge Plan:remain in community with/without caregiver support. Anticipate discharge by 08/17/22 RECOMMENDATION: Plan for next visit to focus on N/A. See intervention summary for intervention/education details. documented in this encounterCommunity [facility]07-11-2023 Miscellaneous Notes* PT ROUTINE/REASSESSMENT/RECERT/CASE MGMT - Rudy Garland, PT - 08/17/2022 12:02 PM EDT SITUATION: spouse present during today's visit. patient reports the following since the last homecare visit: medications/allergies--no changes, no fall. 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 Pt stated pain was very intense the last 2 days sandhya ran out of his opioid pain meds and couldn't get it refilled until today. BACKGROUND: Diagnoses (reason for Home Care): B lung transplant Weight Bearing/Precaution Changes: no changes ASSESSMENT: Focus of visit PT CM visit, therex progression Plan of care, goals, and visit frequency reviewed and agreed upon with patient and/or caregiver. Current Discharge Plan: outpatient rehab Anticipate discharge by 08/28/22 RECOMMENDATION: Next visit to focus on gait, therex, balance See intervention summary for intervention/education details. documented in this encounterCommunity [facility]07-10-2023 Miscellaneous Notes* SN Routine - Mariya Adams RN - 08/16/2022 2:22 PM EDT SITUATION: Detention routine visit completed today. spouse also present during today's visit. patient reports the following: Allergies--reviewed Medications--reviewed current medications Falls--None DME-NONE BACKGROUND: Reason for Home Care: s/p bilateral lung transplant ASSESSMENT: SN greeted at door by caregiver. Upon entrance patient found in recliner Patient appears in no acute distress. Patient/CG concerns verbalized today: n/a Vitals (see flow sheet for details): stable SN findings today: Patient is alert oriented and ambulatory. VSS. Weight is maintained. Blood sugars have been well controlled and he has not required insulin. Reviewed w/ how to administer insulin if needed. is managing medications and has no questions. Lungs CTA, some SOB on exertion. HRR. No edema. No GI/ issues. Good oral intake. Incision w/ no s/s of infection. MARIALUISA drain sites w/ no s/s of infection. Pain level is still high, which required requesting another week of oxycodone. See intervention summary for education details. Patient demonstrated a need for further skilled SN services for chronic disease management & education, medication education, wound/skin care, safety and drain/tube care. Current Discharge plan: self-care and family support RECOMMENDATION: Next visit to focus on (be specific): General assessment documented in this encounterCommunity [facility]07-10-2023 History of Present illness Narrative* Arya Loyd LPN - 08/16/2022 12:30 PM EDT Name: Belgica Angelo [facility]#: [id number] Date: 08/16/2022 ESOPHAGEAL MANOMETRY TEST Indication: S/P Lung Transplant Pain Assessment: No pain is present. The patient has been NPO since last evening. A local anesthetic 1.5 cc 2% Viscous Lidocaine was instilled into the left nares. The patient was intubated the left nares using a 36 sensor high resolution circumferential solid state manometry catheter The esophageal manometry test was completed. The patient tolerated the test without difficulty. Patient did not stop PPI medications.Patient is rescheduled for a ph insert only on 08/23/22. .Arya Loyd LPN documented in this encounterCommunity [facility]07-10-2023 Miscellaneous Notes* CARE COORDINATION - Keisha Chang OTR/L - 08/16/2022 7:01 AM EDT OT unmade visit due to: Staff emergency. Re-scheduled for 08/17/22 documented in this encounterCommunity [facility]07-08-2023 Miscellaneous Notes* PT ROUTINE/REASSESSMENT/RECERT/CASE MGMT - Dayami King PTA - 08/14/2022 10:30 AM EDT SITUATION: spouse present during today's visit. patient reports the following since the last homecare visit: medications/allergies--no changes, no fall. patient reports : I am having a hard time sleeping, I have a hard time getting comfortable. Patient reports sleeping in recliner. 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 Ambulation in hallway with rolator walker while monitoring HR and SPO. patient moving well but needing cues to slow pace and pay attention to RPE. Instruction and handout of RPE given. patient needing cues to slow pace with all exercises and activity. Patient did not want to attempt steps this visit. Plan of care, goals, and visit frequency reviewed and agreed upon with patient and/or caregiver. Current Discharge Plan: family support Anticipate discharge by TBD RECOMMENDATION: Next visit to focus on Progress HEP, attempt steps or step ups. See intervention summary for intervention/education details. documented in this encounterCommunity [facility]07-07-2023 Miscellaneous Notes* Telephone Encounter - Francoise Patterson LPN - 08/13/2022 5:39 PM EDT There has been a delay in service for Home Care OT Evaluation for this patient due to schedule conflict. Patient was notified on 08/13/22. Thank you for this referral, please contact us with any questions. Francoise Patterson LPN documented in this encounterCommunity [facility] Hospital07-07-2023 Miscellaneous Notes* Telephone Encounter - Shira Escobar RN - 08/13/2022 4:28 PM EDT Called patient with A0B0 bronch biopsy results. Advised patient to reduce Prednisone to 10 mg daily. The following approved medication requests have been transmitted electronically. Requested Prescriptions Pending Prescriptions Disp Refills predniSONE (DELTASONE) 10 mg tablet 60 tablet 11 Sig: Take 1 tablet by mouth once daily. Shira Escobar RN documented in this encounterCommunity [facility] Hospital07-06-2023 Miscellaneous Notes* Telephone Encounter - Olegario Rivera, PT - 08/12/2022 4:16 PM EDT Good afternoon, I completed the PT evaluation with this patient today. Pt is a 66 year old male admitting s/p bilateral lung transplant with PMH including JODY, emphysema,chronic respiratory failure, COPD, please refer to EMR for full PMH. Pain is well controlled. Pt iscurrently ambulating >200' with use of Rollator and SBA (50', SBA, no device) and completing transfers with SBA. TUG completed in 10.1 seconds and completes 4 Stage Balance Test failing at stage 3. Pt's PLOF independent with goals made for Independent. Incision appears to be healing well with no s/s of infection. Stable SpO2 during all mobility tasks. Is the plan to continue to pulmonary rehab after home care? Pt expressed interest. Please let me know if you have any questions. Please reach out to the patient directly with further instructions/orders. Thank you, Olegario Rivera, PT [phone] documented in this encounterCommunity [facility] Hospital07-06-2023 Miscellaneous Notes* Telephone Encounter - Shira Escobar RN - 08/12/2022 1:46 PM EDT Reviewed labs with Dr. Umanzor. Patient advised no changes Tracrolimus dosage changes. Advised patient to take Lasix 40 mg every other day. Will have labs repeated on 08/18 at [facility]. The following approved medication requests have been transmitted electronically. Requested Prescriptions Pending Prescriptions Disp Refills furosemide (LASIX) 40 mg tablet Sig: Take 1 tablet by mouth every other day. Shira Escobar RN documented in this encounterCommunity [facility] Hospital07-06-2023 Miscellaneous Notes* PT EVALUATION - Olegario Rivera PT - 08/12/2022 10:02 AM EDT SITUATION: spouse, Karla, present during today's visit. patient and caregiver reports the following since the last homecare visit: medications/allergies--no changes, no fall. patient reports that things are going well and that he is getting around ok. Pt reports that he had a busy day yesterday and is a little sore. 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 Pain is well controlled. Pt iscurrently ambulating >200' with use of Rollator and SBA (50', SBA, no device) and completing transfers with SBA. TUG completed in 10.1 seconds and completes 4 Stage Balance Test failing at stage 3. Pt's PLOF independent with goals made for Independent. Gait- >200', SBA, rollator Transfers- SBA, chair/toilet Functional Test- TUG: Completed in 10.1 seconds with no device; 4 Stage Balance Test: failed stage 3 [facility]. Reviewed and explained homecare services. Plan of care, goals, and visit frequency developed, reviewed, and agreed upon with patient and/or caregiver. Patient Goal: To get it done and get stronger. Patient will benefit from continued physical therapy to address the following deficits: strength, balance, gait, endurance, transfers and stair negotiation. Current Discharge Plan:chronic care clinic (pulmonary rehab) vs. independent at home. Anticipate discharge by 08/28/2022 RECOMMENDATION: Next visit to focus on stair navigation, HEP Progression, endurance See intervention summary for intervention/education details. documented in this encounterCommunity [facility]07-05-2023 History of Present illness Narrative* Gamal Perry APRN.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 MANAGER - 08/11/2022 2:56 PM EDT Images from the original note were not included. [facility] [place] [facility] Department of Cardiovascular Medicine DEPARTMENT OF CARDIAC SURGERY OUTPATIENT VISIT DATE August 11, 2022 OUTPATIENT VISIT TYPE FOLLOW UP Belgica Angelo is a 66 year old male who is here for return post op follow up visit. Most recent Cardiac Surgery: S/p 07/20/2022 [facility] Surgeon:Shonda Juarez MD Operation:Bilateral lung transplantation via Clamshell incision with assistance of VA ECMO (Centralaortic 21 Fr cannula, 26 Fr Right femoral venous drainage cannula) , MELVIN and RUL Wedge resections Discharged on 08/06/2022 HPI: Patient presents today for staple removal and possible ana drain removal. Allergies: ALLERGIES Allergen Reactions Nsaids (Non-Steroid* Contraindication-Medical Surgical Penicillins GI Upset Medications: Current Outpatient Medications Medication Sig oxyCODONE IR (ROXICODONE) 5 mg immediate release tablet Take 1 tablet by mouth every 8 hours as needed for pain. lidocaine (LMX) 4 % cream Apply to affected area as needed (pain around incision site). (Patient taking differently: Apply 1 application to affected area as needed (pain around incision site).) furosemide (LASIX) 40 mg tablet Take 1 tablet by mouth once daily. phosphorus (K PHOS NEUTRAL) 250 mg tablet Take 1 tablet by mouth twice daily. magnesium oxide (MAG-OX) 400 mg (241.3 mg magnesium) tablet Take 1 tablet by mouth twice daily. acetaminophen (TYLENOL) 325 mg tablet Take 2 tablets by mouth every 6 hours as needed for pain. tacrolimus IR (PROGRAF) 1 mg capsule Take 3 capsules by mouth in the morning and 2 capsules by mouth in the evening (take with one 0.5 mg capsule for a total evening dose of 2.5 mg) tacrolimus IR (PROGRAF) 0.5 mg capsule Take one capsule by mouth in the evening for total evening dose of 2.5 mg camphor-methyl salicyl-menthol (SALONPAS) 3.1-10-6 % ptmd Use as needed for back pain, joint pain, and pain around clamshell incision. Apply 12 hours on and 12 hours off (Patient taking differently: Apply 1 Patch as directed once daily as needed (pain). Use as needed for back pain, joint pain, and pain around clamshell incision. Apply 12 hours on and 12 hours off) azithromycin (ZITHROMAX) 250 mg tablet Take 1 tablet by mouth every Tuesday,Tuesday,Tuesday. atorvastatin (LIPITOR) 10 mg tablet Take 1 tablet by mouth daily at bedtime. voriconazole (VFEND) 200 mg tablet Take 1 tablet by mouth every 12 hours. insulin lispro (HUMALOG KWIKPEN INSULIN) 100 unit/mL Check your blood glucose three times daily before meals and inject sliding scale insulin as listed below: Administer correction insulin regardless of meal or nutrition. If blood glucose is less than 70 mg/dL implement hypoglycemia treatment orders and notify provider. If Blood Glucose (mg/dL) is <110 Give 0 units 111-150 Give 0 units 151-200 Give 2 unit 201-250 Give 4 units 251-300 Give 6 units 301-350 Give 8 units 351-400 Give 10 units >400 Give 10 units and notify physician Notify provider if 2 consecutive blood glucose values in the previous 24 hours are greater than 250mg/mL and there have been no changes to the insulin regimen in the previous 24 hours. Insulin [place], Disposable, (BD ULTRA-FINE RADHA PEN NEEDLE) 32 gauge x 5/32 Use 1 Each three times daily before meals. blood sugar diagnostic (aWhereTOUCH VERIO TEST STRIPS) test strip Use as instructed; check your blood glucose three times daily before meals. lancets (aWhereTOUCH DELICA PLUS LANCET) 33 gauge Use 1 Each three times daily before meals. alcohol swabs (ALCOHOL PADS) Apply 1 Each to affected area three times daily before meals. predniSONE (DELTASONE) 10 mg tablet Take 2 tablets by mouth once daily. albuterol (PROVENTIL) 2.5 mg /3 mL (0.083 %) nebulizer solution Use 3 mL via nebulizer every Tuesday,Tuesday,Tuesday. amphotericin B liposomal (AMBISOME) 50 mg injection Inhale 25 mg as instructed every Tuesday,Tuesday,Tuesday. mycophenolate mofetil (CELLCEPT) 250 mg capsule Take 3 capsules by mouth twice daily. ondansetron (ZOFRAN) 4 mg tablet Take 1 tablet by mouth every 8 hours as needed for nausea/vomiting. pantoprazole DR (PROTONIX) 20 mg tablet Take 1 tablet by mouth DAILY (6 AM). polyethylene glycol 3350 (MIRALAX) 17 gram packet Take 1 packet by mouth three times daily. Dissolve dose in 4 - 8 ounces of liquid and take as directed. senna-docusate (SENNA-S) 8.6-50 mg per tablet 2 tablets by ORAL/FEEDING TUBE route twice daily. sulfamethoxazole-trimethoprim (BACTRIM DS) 800-160 mg per tablet Take 1 tablet by mouth every Tuesday,Tuesday,Tuesday. valGANciclovir (VALCYTE) 450 mg tablet Take 2 tablets by mouth daily with breakfast. No current facility-administered medications for this visit. Medications and Allergies have been reviewed. Pain scale :Yes notable back pain not well manage Appetite: improving Activity: Walking ad johny around the house Elimination: normal, no constipation , urination is normal Sleep: difficulty staying asleep Incisions/Wounds: healing Do you feel safe in the home? Yes Gamal Perry APRN.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 MANAGER CC: Still in a lot of pain PE: BP 124/64 Pulse 112 Temp 36.6 C (97.8 F) (Oral) Resp 14 Ht 177.8 cm (5' 10) Wt 92.8 kg (204 lb 9.6 oz) SpO2 96% BMI 29.36 kg/m Appearance: well groomed, white male, in no acute distress Cardiac: regular S1, S2, No murmur, No rub Lungs: Clear breath sounds bilaterally with decreased air entry at the bases bilaterally Extremities: Edema: bilateral Trace Clam shell thoracotomy site: healing, clean, dry and intact Wound: na Right groin sites: healing and clean, dry and intact Procedures: every other Lidia removed from sternotomy site without difficulty. Sutures removed from chest tube sites without difficulty. Sutures removed from femoral cannulation site without difficulty. Iron ana drains re-dressed. IMPRESSION & PLAN: 1.S/p 07/20/2022 [facility] Surgeon:Shonda Juarez MD Operation:Bilateral lung transplantation via Clamshell incision with assistance of VA ECMO (Centralaortic 21 Fr cannula, 26 Fr Right femoral venous drainage cannula) , MELVIN and RUL Wedge resections Discharged on 08/06/2022 2. Ana drain removal - unsure on drainage amounts discussed how to better track - 1st bronch to be completed on 08/14 - will scheduled for next week to reassess ana drain removal - continue deep breathing exercises and walking Cxr: RESULT: Lines, tubes, and devices: Bilateral chest tubes remain. Lungs and pleura: Lower lung opacities probably atelectasis, airway inflammation and/or edema unchanged. No pneumothorax. Cardiomediastinal silhouette: Cardiac silhouette within normal limits. Retrosternal lucency presumably residual postoperative mediastinal air. Other: Mild degenerative changes of the thoracic spine. REFERRAL (RECOMMENDATION): Cardiothoracic OPD for continued follow-up Electronically Signed By Gamal Perry APRN.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 MANAGER In Department: CARDIOTHORACIC Gamal Perry APRN.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 MANAGER documented in this encounterCommunity [facility]07-[facility]23 History of Present illness Narrative* Jing Stark Research Coordinator - 08/11/2022 1:40 PM EDT Summary: IRB # [id number] [facility] Belgica Angelo is here for IRB # [id number] [facility] Visit # V2 Belgica Angelo is here for 3 weeks post transplant visit. Subject was met in [facility] lab to obtain 5 tubes of blood with their clinical blood draw and a urine sample. Next visit is due at 6 weeks months post transplant. Blood sample obtained? Yes, sample obtained 08/11/2022 Urine sample obtained? Yes, sample obtained 08/11/2022 Bronchoscopy sample obtained? To be obtained, not yet scheduled Jing Stark Research Coordinator Subject to continue in trial documented in this encounterCommunity [facility] Hospital07-05-2023 Miscellaneous Notes* Telephone Encounter - Olegario Rivera PT - 08/11/2022 12:07 PM EDT Regina, Attempted to schedule PT Eval visit for today. Unable to complete due to scheduling conflicts, multiple appointments. PT Eval will be rescheduled per patient/caregiver requests date of 08/12/2022. Please let me know if you have any questions. Please reach out to the patient directly with further instructions/orders. Thank you, Olegario Rivera, PT [phone] documented in this encounterCommunity [facility] Hospital07-05-2023 Miscellaneous Notes* [facility]/YAZAN - Olegario Rivera PT - 08/11/2022 12:05 PM EDT Attempted to schedule PT Eval visit for today. Unable to complete due to scheduling conflicts, multiple appointments. PT Eval will be rescheduled per patient/caregiver requests date of 08/12/2022. documented in this encounterCommunity [facility] Hospital07-05-2023 History of Present illness Narrative* Teeep MD Erna - 08/11/2022 9:30 AM EDT DI Angelo is a 66 year old male s/p Bilateral Sequential Lung Transplant with Dr. Juarez on 07/20/2022 for COPD / A1AT, here for follow up. Donor with Risk Factor Labs: none 1-2 Mo 08/19/22 DUE: HBV viral DNA: , HCV Quant RNA: , HIV RNA viral load: DOS 07/19/22: HBV viral DNA: not detected, HepBsAb: positive, HCV Quant RNA: not detected, HIV Ag/Ab: nonreactive Pre- Tx. 07/17/22: HBV viral DNA: not detected, HepBsAb: positive, HCV Quant RNA: not detected, HepCab: , HIV Ag/Ab: nonreactive MEDICAL HISTORY: COPD Bronchiectasis A1AT on augmentation therapy (proteinase inhibitor once/week) lung nodules neuropathy right foot SURGICAL HISTORY right foot hernia repair EXPLANT PATHOLOGY: FINAL DIAGNOSIS A-B. Left and right lungs, explant pneumonectomies: - Centrilobular emphysema. - Patchy organizing pneumonia with focal giant cells reaction. - Benign reactive hilar lymph nodes. C-D. Left and right donor lungs, upper lobes, wedge resections: - Small arteries with early, organizing thrombi. - No specific pathologic diagnosis. CFF/mm/07/23/2022 POST TRANSPLANT EVENTS: CMV: Donor: Negative / Recipient: Positive EBV: Donor: Negative / Recipient: Positive PGD Scores: Score T 0 = Grade 1 Score T12 = Grade 1 Score T24 = Grade 1 Score T48 = Grade 1 Score T72 = Grade 1 07/20/22 Transplanted 07/21: extubated 07/22: ID consult +streptococcus on recipient swab; transferred to [facility] 07/25: Pain, hallucinations improved. Dizzy, hypotensive w/ BP 80s/50s, high chest tube output, 500mL NSB given. 07/26: Orthostatic hypotension, 80s/50s. IVF. Repeat lactate 2.8 after 1 L IV NS. Started on midodrine. 07/28: Pain improved, continues on epidural. Persistent orthostasis, start mestinon. EKG w/ stable QTc, start SOPHIA ppx. 07/29: Hypotensive (BP 63/37), dizzy while sitting up in chair, CMET activated, BP stabilized to 117/53 w/ 500mL NSB & holding epidural. Increase mestinon dosing. Conferred w/ APMS - transition to oral pain regimen. Epidural removed. 07/30: Give dose of IVIG for hypogam. 07/31: Improvement of pain with blocks. IVIG stopped overnight due to facial flushing and redness on arm. Improvement of leukocytosis; remains on IV Zosyn. 08/02: Left large bore CT removed. Transitioned to oral pain regimen. 08/03: Pain site of former L large bore CT. CXR w/ 2 tiny pneumothoraces on right. Placed blakes x suction. 08/06: Deemed safe for discharge. Desaturation study performed- did not qualify for oxygen. Discharged with bilateral ana drains to bulb suction with follow up appointment with CTS requested. Tacrolimus level was 12.1 on 3mg in AM and 2.5mg in PM. Scheduled for lung transplant clinic on 08/11/22 with 3 week surveillance bronchoscopy scheduled for 08/13/22. BRONCHOSCOPY: ?? AIRWAY, airway MD: ?? 6 wk: DUE 08/31/22 3 wk: 08/13/22: PENDING DONOR SPECIFIC ANTIBODY (DSA): 08/11/22: PENDING 07/30/22: No Donor specific HLA antibody was detected ALLERGIES: Allergen Reactions Nsaids (Non-Steroid* Contraindication-Medical Surgical Penicillins Upset stomach GI Upset CURRENT MEDICATIONS: Current Outpatient Medications Medication Sig Dispense Refill lidocaine (LMX) 4 % cream Apply to affected area as needed (pain around incision site). (Patient taking differently: Apply 1 application to affected area as needed (pain around incision site).) 30 g 0 furosemide (LASIX) 40 mg tablet Take 1 tablet by mouth once daily. 30 tablet 1 phosphorus (K PHOS NEUTRAL) 250 mg tablet Take 1 tablet by mouth twice daily. 60 tablet 11 magnesium oxide (MAG-OX) 400 mg (241.3 mg magnesium) tablet Take 1 tablet by mouth twice daily. 60 tablet 11 acetaminophen (TYLENOL) 325 mg tablet Take 2 tablets by mouth every 6 hours as needed for pain. 240tablet 0 tacrolimus IR (PROGRAF) 1 mg capsule Take 3 capsules by mouth in the morning and 2 capsules by mouth in the evening (take with one 0.5 mg capsule for a total evening dose of 2.5 mg) 150 capsule 11 tacrolimus IR (PROGRAF) 0.5 mg capsule Take one capsule by mouth in the evening for total evening dose of 2.5 mg 60 capsule 11 camphor-methyl salicyl-menthol (SALONPAS) 3.1-10-6 % ptmd Use as needed for back pain, joint pain, and pain around clamshell incision. Apply 12 hours on and 12 hours off (Patient taking differently: Apply 1 Patch as directed once daily as needed (pain). Use as needed for back pain, joint pain, and pain around clamshell incision. Apply 12 hours on and 12 hours off) 60 Patch 1 azithromycin (ZITHROMAX) 250 mg tablet Take 1 tablet by mouth every Tuesday,Tuesday,Tuesday. 12 tablet 11 atorvastatin (LIPITOR) 10 mg tablet Take 1 tablet by mouth daily at bedtime. 30 tablet 11 voriconazole (VFEND) 200 mg tablet Take 1 tablet by mouth every 12 hours. 60 tablet 2 insulin lispro (HUMALOG KWIKPEN INSULIN) 100 unit/mL Check your blood glucose three times daily before meals and inject sliding scale insulin as listed below: Administer correction insulin regardless of meal or nutrition. If blood glucose is less than 70 mg/dL implement hypoglycemia treatment orders and notify provider. If Blood Glucose (mg/dL) is <110 Give 0 units 111-150 Give 0 units 151-200 Give 2 unit 201-250 Give 4 units 251-300 Give 6 units 301-350 Give 8 units 351-400 Give 10 units >400 Give 10 units and notify physician Notify provider if 2 consecutive blood glucose values in the previous 24 hours are greater than 250mg/mL and there have been no changes to the insulin regimen in the previous 24 hours. 15 mL 11 Insulin [place], Disposable, (BD ULTRA-FINE RADHA PEN NEEDLE) 32 gauge x 5/32 Use 1 Each three times daily before meals. 100 Each 11 blood sugar diagnostic (aWhereTOUCH VERIO TEST STRIPS) test strip Use as instructed; check your blood glucose three times daily before meals. 100 Each 11 lancets (aWhereTOUCH DELICA PLUS LANCET) 33 gauge Use 1 Each three times daily before meals. 100 Each 11 alcohol swabs (ALCOHOL PADS) Apply 1 Each to affected area three times daily before meals. 100 Each11 predniSONE (DELTASONE) 10 mg tablet Take 2 tablets by mouth once daily. 60 tablet 11 albuterol (PROVENTIL) 2.5 mg /3 mL (0.083 %) nebulizer solution Use 3 mL via nebulizer every Tuesday,Tuesday,Tuesday. 75 mL 11 amphotericin B liposomal (AMBISOME) 50 mg injection Inhale 25 mg as instructed every Tuesday,Tuesday,Tuesday. 12 Each 2 mycophenolate mofetil (CELLCEPT) 250 mg capsule Take 3 capsules by mouth twice daily. 180 capsule 11 ondansetron (ZOFRAN) 4 mg tablet Take 1 tablet by mouth every 8 hours as needed for nausea/vomiting. [address] (PROTONIX) 20 mg tablet Take 1 tablet by mouth DAILY (6 AM). 30 tablet 11 polyethylene glycol 3350 (MIRALAX) 17 gram packet Take 1 packet by mouth three times daily. Dissolve dose in 4 - 8 ounces of liquid and take as directed. 100 Each 11 senna-docusate (SENNA-S) 8.6-50 mg per tablet 2 tablets by ORAL/FEEDING TUBE route twice daily. sulfamethoxazole-trimethoprim (BACTRIM DS) 800-160 mg per tablet Take 1 tablet by mouth every Tuesday,Tuesday,Tuesday. 12 tablet 11 valGANciclovir (VALCYTE) 450 mg tablet Take 2 tablets by mouth daily with breakfast. 60 tablet 11 oxyCODONE IR (ROXICODONE) 5 mg immediate release tablet Take 1 tablet by mouth every 8 hours as needed for pain. 20 tablet 0 No current facility-administered medications for this visit. NEW COMPLAINTS: Patient here for first OPD visit s/p Lung Transplant surgery. Post- transplant issues include: Pain, hallucinations improved. Dizzy, hypotensive w/ BP 80s/50s, high chest tube output, 500 mL NSB given. Orthostatic hypotension, 80s/50s. IVF. Repeat lactate 2.8 after 1 L IV NS. Started on midodrine.Pain improved, continues on epidural. Persistent orthostasis, start mestinon. EKG w/ stable QTc, start SOPHIA ppx. Hypotensive (BP 63/37), dizzy while sitting up in chair, CMET activated, BP stabilized to 117/53 w/ 500mL NSB & holding epidural. Increase mestinon dosing. Conferred w/ APMS - transition to oral pain regimen. Epidural removed. Given dose of IVIG for hypogam. Improvement of pain with blocks. IVIG stopped overnight due to facial flushing and redness on arm. Improvement of leukocytosis; remains on IV Zosyn. Left large bore CT removed. Transitioned to oral pain regimen. Pain site of former L large bore CT. CXR w/ 2 tiny pneumothoraces on right. Placed blakes x suction. Patient discharged to [facility], [facility] study showed no need for O2. Discharged with bilateral bulb drains. Patient presents today in wheelchair and on room air. Currently residing at [facility]. User walker at times when out walking. HHC and PT visiting patient. Patient endorses intermittent cough with clear sputum. Denies wheezing or SOB at rest. Some SONG. Afebrile. Home Spirometry readings: FEV1 1.3-1.6L and FVC 1.7- 19.L. Go FRANCA readings reviewed by and discussed with patient. PFTs today FEV1 1.95L. Incisions clam shell sutures and lidia in place. R and L ana drain <100 cc daily. Seeingthoracic surgery today. Home BP 110-120s/60-70s and HR 90-110s. Today BP 120/77 and HR 105. Currently on no BP medications.Denies chest pain, palpitations, or BLE edema. Taking Lasix 40 mg daily. Appetite is good. Eats 3 meals a day. Weight down 11 lbs since transplant. Denies nausea, vomiting or ROMEO symptoms. Patient feels it takes awhile for the food to go down. Patient taking Protonix for reflux prevention. BS <150 and has needed any insulin. Moving bowels daily, denies any diarrhea. Takes stool softener daily. Tremors mild. Sleeping in recliner due to ana drains. Patient is doing well with medications and routine with his . ID: CMV: Donor: Negative / Recipient: Positive EBV: Donor: Negative / Recipient: Positive. Currently on Valcyte 900mg once daily, Voriconazole 200mg twice daily, Ambisome 25mg nebulized on (x 1 week), and Bactrim DS every Tuesday, Tuesdayand Tuesday. Taking Azithromycin 250 mg and Atorvastatin 10 mg daily. REVIEW OF SYSTEMS: GENERAL: 11 lb weight loss since tx, no malaise or fevers HEENT: Negative for frequent or significant headaches, No changes in hearing or vision, no nose bleeds or other nasal problems NECK: Negative for lumps, goiter, pain and significant neck swelling RESPIRATORY: Negative for hemoptysis, wheezing, COPD, + intermittent cough with sputum & SONG CARDIOVASCULAR: Negative for chest pain, leg swelling, hypertension, CHF or palpitations GI: No nausea, vomiting, or diarrhea : No history of dysuria, frequency or incontinence MUSCULOSKELETAL: Negative for joint pain or swelling, back pain or muscle pain SKIN: Negative for lesions, rash, and itching PSYCH: Negative for sleep disturbance, mood disorder and recent psychosocial stressors HEMATOLOGY/LYMPHOLOGY: Negative for prolonged bleeding, bruising easily or swollen nodes ENDOCRINE: Negative for cold or heat intolerance, polyuria, polydipsia and goiter NEURO: No history of headaches, syncope, paralysis, seizures or tremors PATIENT TRANSPLANT KARNOFSKY INDEX AND LANSKY SCALE: 70% - Cares for self: unable to carry on normal activity or active work. Patient Working? No, on medical disability since 2011 IMMUNIZATIONS: Hep A: 04/13/21; 07/22/21 (11/18/21) positive Hep B: 04/13/21; 07/22/21;02/24/22 (07/17/22) positive Flu vaccine: 11/18/21 Prevnar 20: 07/22/21 COVID 19 vaccine - Moderna ( 12/12/2020, 05/08/2020, 04/10/2020); 11/18/21 Shingles: 04/19/2019, 11/16/2018 PPD/TB Quant: 04/13/21 Negative Tetanus booster: 04/13/21 HEALTH MAINTENANCE: PSA: 02/24/22 0.18 Dermatology - needs scheduled COLONOSCOPY: 01/30/13 ([facility]) Rectal mucosa normal. Grade 1 internal hemorrhoids. Ileum normal, mucosal and submucosal vascular patter throughout the colon was normal. No polyp or mass identified, no inflammatory changes. BONE DENSITY: 07/22/21 THE LOWEST T-SCORE IS -1.4 IN THE LEFT HIP ENDO CONSULT: 02/25/22 with Hortencia Based on FRAX and BMD, treatment is not recommended at this time. Calcium 1200 to 1500 mg daily recommended- begin calcium carbonate 600 mg daily with food. Weight bearing exercise as tolerated recommended. Fall precautions discussed. Repeat bmd on same machine as prior around 07/2023. Continued f/u with PCP for routine health maintenance advised. POST-TRANSPLANT GERD STUDIES: to be scheduled ESOPHAGEAL MANOMETRY- pH PROBE- GASTRIC EMPTYING- PRE-TRANSPLANT GERD STUDIES: ESOPHAGEAL MONOMETRY: 07/22/21 Interpretation / Findings LES: Normal resting pressure, complete relaxation Body of the esophagus (supine): --7 swallows with normal peirstalsis --3 swallows with hypertensive peristalsis PH PROBE: 07/22/21 Normal study. GASTRIC EMPTYIN07/23/21 NORMAL RATE OF GASTRIC EMPTYING OF SOLID MEAL. PULMONARY FUNCTION TESTING: Date: 08/11/22 FVC (L) 2.31 3.06 4.09 5.14 56 FEV1 (L) 1.95 2.31 3.14 3.92 62 [id number] (L/sec) 1.83 1.21 2.63 4.60 69 Time (sec) 4.59 Date: 06/02/22 Pre-Transplant FVC (L) 2.76 3.26 4.34 5.44 63 FEV1 (L) 0.81 2.45 3.32 4.14 24 [id number] (L/sec) 0.24 1.21 2.64 4.61 9 Time (sec) 14.94 CHEST XRAY: 08/11/22 Images reviewed by and discussed with patient Physical Exam BP 120/77 Pulse 105 Temp 36.7 C (98.1 F) (Temporal) Resp 18 Ht 176.5 cm (5' 9.49) Wt 93.1 kg (205 lb 3.2 oz) SpO2 97% BMI 29.88 kg/m General: Well developed, well nourished ,in no apparent distress Head: Normal cephalic ENT: No sinus tenderness, Neck: Supple Chest: Normal vesicular breath sounds. Clamshell healing well, stapels in place, bilateral ana chest tubes in place Cardiac: Regular rate and rhythm Abdomen: Soft, non-tender, non-distended Extremities: No clubbing, cyanosis or edema Skin/hair: No rash or suspicious lesions. Neurologic: grossly normal Impression/Plan: # Graft Function: ANEESH- 07-20-22 for COPD/ AAT deficiency - Graft function - doing well, on RA - Immune suppression- tacrolimus, MMF, prednisone 20 - ana X 2, with output decreasing - CLAD ppx- azithro, lipitor - Airway - no known issues - No DSA # ID: - ID ppx- bactrim, vori ( level pending), valcyte - Hypo IGG- post LTx- 443 on last checl on 08-02., reaction with IVIG # CV - orthostatic hypotension- post LTx, rseolved # Renal:no issues # GI - Nutrition- eating three meals, early satiety # Endo: - steroid induced hyperglycemia- NOT needing insulin in the last week # Heme/ onc - counts stable, continue to monitor on IS Plan - 3 week bronch on Tuesday, decrease prednisone based on biopsy results - continue tacro, MMF, prednisone 20 - ID ppx- continue vakcyte, bactrim, vori, ambisome, await vori level - thoracic today for blakes - oxycodone - continue for this week - lasix - decrease to every other day - GI testing pending- ordered today - RTC in one week Wilbert Umanzor MD I spent a total of 45 minutes on the date of the service which included preparing to see the patient, [id number] patient care, and completing clinical documentation. documented in this encounterCommunity [facility]07-[facility]23 History of Present illness Narrative* Francoise Chen RT(R) - 08/11/2022 8:35 AM EDT Radiology Service Progress Note PATIENT NAME: Belgica Angelo DATE OF SERVICE: August 11, 2022 TIME: 9:14 AM PATIENT IDENTITY VERIFICATION COMPLETED USING TWO (2) IDENTIFIERS: Name and Date of confirmedby patient verbally. FALL SCREENING: Has the patient had 2 falls in the last year or 1 fall with injury or currently using an Ambulatory Assistive Device (Walker, Cane, Wheelchair, Crutches, etc.)? No PATIENT GENDER DATA: Male PATIENT RELEVANT IMPLANT DATA REVIEWED: Not Applicable RADIOLOGY DEPARTMENT: General X-ray: Exam(s) Completed: Chest X-Ray PERIPHERAL IV DATA: Not applicable SIGNED BY: RT Huan(R) August 11, 2022 9:14 AM documented in this encounterCommunity [facility] Hospital07-02-2023 Miscellaneous Notes* Telephone Encounter - Jim Saini RN - 08/08/2022 2:46 PM EDT Regina Decker APRN.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 MANAGER This is to inform you that [facility] Updated home care orders for nursing, PT, and OT will be sent to you for your review and signature. Nursing visit frequency will be 1 time a week for 5 weeks. SN findings today: Patient is alert and oriented x 4. BIMS scored 15 out of 15. Pleasant and cooperative. Follows commands. Speech clear and coherent. Mood/affect stable but can become anxious easily. Apical HR 92 rate and rhythm regular. Normal S1 and S2. No murmur or gallop auscultated. No complaint of chest pain. No complaint of palpitations, dizziness/lightheadedness, or syncope. Weight .1 lbs. Peripheral pulses present. Capillary refill < 3 seconds. No peripheral or lymphatic edema. No ascites. Lung sounds clear to asculatation. Pulse ox 95% on room air. SOB was noted with moderate exertion, approximately 20 feet of ambulation. Abdomen soft non-tender and non-distended. Bowel sounds x 4 quads. No complaint of nausea or vomiting. Patient states last bowel movement was 08 August 2022, and normally has a bowel movement daily. Patient states he is able to void without difficulty, urine clear yellow, and no complaints of incontinence. Clam shell incision approximaed with staple and sutures, no erythema or drainage, open to air. Ana drains x 2, sutured in place, no erythemnoted at either site, no drainage from around either site. Caregiver returned demonsration with dressing with minimal verbal cueing. Caregiver is independent with emptying drains. Patent and caregiver instructed on signs and symptoms of infection. Instructed to notify physician or home care if any of the following occur: elevated temperature >100 degrees fahrenheit, increased pain, redness, warmth, purulent drainage, foul odor, fever, and/or dehiscence. Patient verbalized understanding, was able to repeat signs and symptoms. Complains of decreased endurance, fatigue, generalized weakness and muscular weakness. Stands with assistance of 1 person. Slow shuffling and unsteady gait, ambulates with rollator. Poor balance, needed minimal assistance to stand on scale. Patient accepts referrals for PT and OT. If you have any question, please feel free to contact me. A MAJOR Drug to Drug Interaction has been identified according to Joint Commission National PatientSafety Goals for the above named patient: amphotericin B liposomal and prednisone; phosphorus and sulfamethoxazole- trimethoprim; tacrolimus IR and voriconazole; oxyCODONE IR and voriconazole; ondansetron and azithromycin. Jim Saini RN Admissions documented in this encounterCommunity [facility] Hospital07-02-2023 Miscellaneous Notes* SN SOC - Jim Saini RN - 08/08/2022 8:45 AM EDT SITUATION: Detention SOC visit completed today. spouse also present during today's visit. patient and caregiver reports the following: Allergies--reviewed Medications--full medication reconciliation completed. Reviewed all medications with caregiver, verified, name, dosage, and routes on medication bottles and all prescriptions are in home. Printed hospital After Visit Summary Medication List left in home care folder. Falls--None DME-Reviewed and added to chart BACKGROUND: Discharged/Referral from acute care hospital on 05 August 2022 following treatment for Emphysema S/P Lung Transplant Bilateral with Cardiopulmonary bypass. Pertinent referral information or other diagnoses that may affect plan of care: Heterozygous Alpha 1-Antitrypsin Deficiency, Chronic Respiratory Failure With Hypoxia and Hypercapnia, ImmunosuppressedStatus, Current Chronic Use of Systemic Steroids, Generalized Anxiety Disorder ASSESSMENT: SN greeted at door by caregiver. Upon entrance patient found in recliner Patient appears in no acute distress. Patient lives at home with spouse. Home environment: clean and uncluttered. SOC booklet reviewed & completed with patient and consent obtained for Home Care services. Vitals (see flow sheet for details): stable SN findings today: Patient is alert and oriented x 4. BIMS scored 15 out of 15. Pleasant and cooperative. Follows commands. Speech clear and coherent. Mood/affect stable but can become anxious easily. Apical HR 92 rate and rhythm regular. Normal S1 and S2. No murmur or gallop auscultated. No complaint of chest pain. No complaint of palpitations, dizziness/lightheadedness, or syncope. Weight tdown045.1 lbs. Peripheral pulses present. Capillary refill < 3 seconds. No peripheral or lymphatic edema. No ascites. Lung sounds clear to asculatation. Pulse ox 95% on room air. SOB was noted with moderate exertion, approximately 20 feet of ambulation. Abdomen soft non-tender and non-distended. Bowel sounds x 4 quads. No complaint of nausea or vomiting. Patient states last bowel movement was 08 August 2022, and normally has a bowel movement daily. Patient states he is able to void without difficulty, urine clear yellow, and no complaints of incontinence. Clam shell incision approximaed with staple and sutures, no erythema or drainage, open to air. Ana drains x 2, sutured in place, no erythemnoted at either site, no drainage from around either site. Caregiver returned demonsration with dressing with minimal verbal cueing. Caregiver is independent with emptying drains. Patent and caregiver instructed on signs and symptoms of infection. Instructed to notify physician or home care if any of the following occur: elevated temperature >100 degrees fahrenheit, increased pain, redness, warmth, purulent drainage, foul odor, fever, and/or dehiscence. Patient verbalized understanding, was able to repeat signs and symptoms. Complains of decreased endurance, fatigue, generalized weakness and muscular weakness. Stands with assistance of 1 person. Slow shuffling and unsteady gait, ambulates with rollator. Poor balance, needed minimal assistance to stand on scale. Patient accepts referrals for PT and OT. See intervention summary for education details and skills performed. Plan of care and visit frequency established with patient and caregiver and plan of care agreed upon. Patient demonstrated a need for further skilled SN services for chronic disease management & education, medication education, wound/skin care, safety and drain/tube care. RECOMMENDATION: Visit Frequency: 1w5 Need for additional services: Patient agreeable to PT and OT referrals. Additional concerns to be followed up on: NONE Next visit to focus on (be specific): Cardiopulmonary assessment, wound assessment, instruct on medicatoins and diesease processes. Note sent to home care physician Regina Decker APRN.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 MANAGER This is to inform you that [facility] Updated home care orders for nursing, PT, and OT will be sent to you for your review and signature. Nursing visit frequency will be 1 time a week for 5 weeks. SN findings today: Patient is alert and oriented x 4. BIMS scored 15 out of 15. Pleasant and cooperative. Follows commands. Speech clear and coherent. Mood/affect stable but can become anxious easily. Apical HR 92 rate and rhythm regular. Normal S1 and S2. No murmur or gallop auscultated. No complaint of chest pain. No complaint of palpitations, dizziness/lightheadedness, or syncope. Weight .1 lbs. Peripheral pulses present. Capillary refill < 3 seconds. No peripheral or lymphatic edema. No ascites. Lung sounds clear to asculatation. Pulse ox 95% on room air. SOB was noted with moderate exertion, approximately 20 feet of ambulation. Abdomen soft non-tender and non-distended. Bowel sounds x 4 quads. No complaint of nausea or vomiting. Patient states last bowel movement was 08 August 2022, and normally has a bowel movement daily. Patient states he is able to void without difficulty, urine clear yellow, and no complaints of incontinence. Clam shell incision approximaed with staple and sutures, no erythema or drainage, open to air. Ana drains x 2, sutured in place, no erythemnoted at either site, no drainage from around either site. Caregiver returned demonsration with dressing with minimal verbal cueing. Caregiver is independent with emptying drains. Patent and caregiver instructed on signs and symptoms of infection. Instructed to notify physician or home care if any of the following occur: elevated temperature >100 degrees fahrenheit, increased pain, redness, warmth, purulent drainage, foul odor, fever, and/or dehiscence. Patient verbalized understanding, was able to repeat signs and symptoms. Complains of decreased endurance, fatigue, generalized weakness and muscular weakness. Stands with assistance of 1 person. Slow shuffling and unsteady gait, ambulates with rollator. Poor balance, needed minimal assistance to stand on scale. Patient accepts referrals for PT and OT. If you have any question, please feel free to contact me. A MAJOR Drug to Drug Interaction has been identified according to Joint Commission National PatientSafety Goals for the above named patient: amphotericin B liposomal and prednisone; phosphorus and sulfamethoxazole- trimethoprim; tacrolimus IR and voriconazole; oxyCODONE IR and voriconazole; ondansetron and azithromycin. documented in this encounterCommunity [facility] History of Present illness Narrative* Marzena Álvarez RN - 08/05/2022 6:06 PM EDT DI Angelo is a 66 year old male s/p Bilateral Sequential Lung Transplant with Dr. Juarez on 07/20/2022 for COPD / A1AT, here for follow up. Donor with Risk Factor Labs: none 1-2 Mo 08/19/22 DUE: HBV viral DNA: , HCV Quant RNA: , HIV RNA viral load: DOS 07/19/22: HBV viral DNA: not detected, HepBsAb: positive, HCV Quant RNA: not detected, HIV Ag/Ab: nonreactive Pre- Tx. 07/17/22: HBV viral DNA: not detected, HepBsAb: positive, HCV Quant RNA: not detected, HepCab: , HIV Ag/Ab: nonreactive MEDICAL HISTORY: COPD Bronchiectasis A1AT on augmentation therapy (proteinase inhibitor once/week) lung nodules neuropathy right foot SURGICAL HISTORY right foot hernia repair EXPLANT PATHOLOGY: FINAL DIAGNOSIS A-B. Left and right lungs, explant pneumonectomies: - Centrilobular emphysema. - Patchy organizing pneumonia with focal giant cells reaction. - Benign reactive hilar lymph nodes. C-D. Left and right donor lungs, upper lobes, wedge resections: - Small arteries with early, organizing thrombi. - No specific pathologic diagnosis. CFF/mm/07/23/2022 POST TRANSPLANT EVENTS: CMV: Donor: Negative / Recipient: Positive EBV: Donor: Negative / Recipient: Positive PGD Scores: Score T 0 = Grade 1 Score T12 = Grade 1 Score T24 = Grade 1 Score T48 = Grade 1 Score T72 = Grade 1 07/20/22 Transplanted 07/21: extubated 07/22: ID consult +streptococcus on recipient swab; transferred to [facility] 07/25: Pain, hallucinations improved. Dizzy, hypotensive w/ BP 80s/50s, high chest tube output, 500mL NSB given. 07/26: Orthostatic hypotension, 80s/50s. IVF. Repeat lactate 2.8 after 1 L IV NS. Started on midodrine. 07/28: Pain improved, continues on epidural. Persistent orthostasis, start mestinon. EKG w/ stable QTc, start SOPHIA ppx. 07/29: Hypotensive (BP 63/37), dizzy while sitting up in chair, CMET activated, BP stabilized to 117/53 w/ 500mL NSB & holding epidural. Increase mestinon dosing. Conferred w/ APMS - transition to oral pain regimen. Epidural removed. 07/30: Give dose of IVIG for hypogam. 07/31: Improvement of pain with blocks. IVIG stopped overnight due to facial flushing and redness on arm. Improvement of leukocytosis; remains on IV Zosyn. 08/02: Left large bore CT removed. Transitioned to oral pain regimen. 08/03: Pain site of former L large bore CT. CXR w/ 2 tiny pneumothoraces on right. Placed blakes x suction. 08/06: Deemed safe for discharge. Desaturation study performed- did not qualify for oxygen. Discharged with bilateral ana drains to bulb suction with follow up appointment with CTS requested. Tacrolimus level was 12.1 on 3mg in AM and 2.5mg in PM. Scheduled for lung transplant clinic on 08/11/22 with 3 week surveillance bronchoscopy scheduled for 08/13/22. BRONCHOSCOPY: ?? AIRWAY, airway MD: ?? 6 wk: 3 wk: 08/13/22: scheduled DONOR SPECIFIC ANTIBODY (DSA): 08/11/22: pending 07/30/22: No Donor specific HLA antibody was detected ALLERGIES: Allergen Reactions Nsaids (Non-Steroid* Contraindication-Medical Surgical Penicillins Upset stomach GI Upset CURRENT MEDICATIONS: NEW COMPLAINTS: Patient here for first OPD visit s/p Lung Transplant surgery. Post- transplant issues include: Patient presents today . Currently residing . From a pulmonary standpoint . Home Spirometry readings: FEV1 FVC . Go FRANCA readings reviewed by MD and discussed with patient. PFTs today . Incisions . Indwelling lines present at discharge: Reason for line: Placed by: on (date) BP running with a pulse , Today BP P , currently taking . LE edema. Appetite , weight since transplant. Patient taking for reflux prevention. BS running: AM , Lunch , Dinner Moving bowels daily . Tremors . Sleeping approx hrs per night. Patient is doing with medications and routine. ID: CMV: Donor: Negative / Recipient: Positive EBV: Donor: Negative / Recipient: Positive. Currently on Valcyte 900mg once daily, Voriconazole 200mg twice daily, Ambisome 25mg nebulized on (x 1 week), and Bactrim DS every Tuesday, Tuesdayand Tuesday. Taking Azithromycin 250 mg and Atorvastatin 10 mg daily. REVIEW OF SYSTEMS: PATIENT TRANSPLANT KARNOFSKY INDEX AND LANSKY SCALE: Patient Working? No, on medical disability since 2011 IMMUNIZATIONS: Hep A: 04/13/21; 07/22/21 (11/18/21) positive Hep B: 04/13/21; 07/22/21;02/24/22 (07/17/22) positive Flu vaccine: 11/18/21 Prevnar 20: 07/22/21 COVID 19 vaccine - Moderna ( 12/12/2020, 05/08/2020, 04/10/2020); 11/18/21 Shingles: 04/19/2019, 11/16/2018 PPD/TB Quant: 04/13/21 Negative Tetanus booster: 04/13/21 HEALTH MAINTENANCE: PSA: 02/24/22 0.18 Dermatology - needs scheduled COLONOSCOPY: 01/30/13 (OSH) Rectal mucosa normal. Grade 1 internal hemorrhoids. Ileum normal, mucosal and submucosal vascular patter throughout the colon was normal. No polyp or mass identified, no inflammatory changes. BONE DENSITY: 07/22/21 THE LOWEST T-SCORE IS -1.4 IN THE LEFT HIP ENDO CONSULT: 02/25/22 with Hortencia Based on FRAX and BMD, treatment is not recommended at this time. Calcium 1200 to 1500 mg daily recommended- begin calcium carbonate 600 mg daily with food. Weight bearing exercise as tolerated recommended. Fall precautions discussed. Repeat bmd on same machine as prior around 07/2023. Continued f/u with PCP for routine health maintenance advised. POST-TRANSPLANT GERD STUDIES: to be scheduled ESOPHAGEAL MANOMETRY- pH PROBE- GASTRIC EMPTYING- PRE-TRANSPLANT GERD STUDIES: ESOPHAGEAL MONOMETRY: 07/22/21 Interpretation / Findings LES: Normal resting pressure, complete relaxation Body of the esophagus (supine): --7 swallows with normal peirstalsis --3 swallows with hypertensive peristalsis PH PROBE: 07/22/21 Normal study. GASTRIC EMPTYIN07/23/21 NORMAL RATE OF GASTRIC EMPTYING OF SOLID MEAL. PULMONARY FUNCTION TESTING: Date: 08/11/22 Date: 06/02/22 Pre-Transplant FVC (L) 2.76 3.26 4.34 5.44 63 FEV1 (L) 0.81 2.45 3.32 4.14 24 BBH11-30 (L/sec) 0.24 1.21 2.64 4.61 9 Time (sec) 14.94 CHEST XRAY: 08/11/22 Images reviewed by and discussed with patient documented in this encounterCommunity [facility]06-[facility] Miscellaneous Notes* Telephone Encounter - Nora Juan Ramon - 08/05/2022 9:38 AM EDT Welcome Home Call: a. Date and Time: 9:42 AM 08/05/2022 b. Contact name/relationship: Karla/spouse c. Have you been active with any Home Care company in the last 60 days(such as help with bathing, filling medications, checking your blood pressure) ? No. d. [facility] will be providing your care, are you agreeable to starting these services? yes (yes or no) e. Do you have any upcoming appointments in the next few days, or restrictions to your schedule? August 11 at 7:45 f. Caregiver: Yes - Caregiver name Karla ; spoke with Karla to confirm 08/05/22 g. Confirmed Visited Location and preferred #: yes Please keep our your medications both over the counter and prescribed out for the home care to review, your hospital discharge instructions and write down any questions you might have. In order to maintain a safe environment for our caregivers, [facility] requires anyanimals or weapons present in the home be located in a secured location. Our clinicians will call you the night before or the morning of the appointment. Their # may come up restricted but they'll leave a VM for you. In case you have any questions or concerns in the meantime, our # is [phone], option 5 Thank you for your time and have a great day. Nora Delatorre documented in this encounterCommunity [facility]06-27-[facility] History of Past illness Narrative* Problem Noted Date Diagnosed Date Resolved Date Generalized anxiety disorder 08/03/2022 10/04/2022 Postoperative pain 07/28/2022 Immunosuppressed status 07/26/2022 0809/2022 Current chronic use of systemic steroids 07/26/2022 10/04/2022 Atelectasis 07/23/2022 10/04/2022 Overview: 07/23/2022 Encourage PEP with deep breathing and cough. Hypophosphatemia 07/23/2022 10/04/2022 Overview: 07/23/2022 Replete phosphorus as needed. Streptococcus pneumoniae 07/23/2022 Obesity, Class I, BMI 30-34.9 07/22/2022 10/04/2022 On mechanically assisted ventilation 07/21/2022 07/22/2022 Overview: History: Postoperative. Assessment: Currently intubated and sedated. Grade 1 airway. Plan: WTE/Bronch AM 07/21 Hypotension, unspecified 07/21/2022 Overview: History: Postoperative. Assessment: Hypotensive requiring vasopressor for hemodynamic support. Plan: Titrate Levo infusion to maintain MAP goal 70-80. See care coordination note 07/23/2022 Vasopressin infusion weaned off overnight. Stress hyperglycemia 07/21/2022 023 Overview: History: no DM history Assessment: Perioperative insulin resistance and exacerbation of hyperglycemia. Plan: RHI infusion per CVICU nomogram to maintain BG <150 mg/dL. See care coordination note 07/23/2022 Transition to sliding scale insulin for blood glucose control. Acute post-operative pain 07/21/2022 Overview: History: Postoperative. Assessment: Currently intubated and sedated. Plan: IV push fentanyl until able to use CIRCULATION LIBRARIAN. Initiate scheduled Lidocaine patches and Tylenol. Consider oxycodone IR as needed for breakthrough pain after extubation. See care coordination note 07/23/2022 Continue bupivacaine/fentanyl PCEA for pain control. Emphysema due to alpha-1-ant itrypsin deficiency 07/20/2022 10/04/2022 Overview: History: hx of A1AT deficiency with home O2 3L with rest and 4L with activity, and 3L with sleep. Assessment:07/20/2022: Bilateral lung transplantation via Clamshell incision with assistance of [facility] (Central aortic 21 Fr cannula, 26 Fr Right femoral venous drainage cannula) , MELVIN and RUL Wedge resections Plan: IS per ALD Lung transplant candidate 07/20/2022 Lung transplant planned 07/17/202209/08 Chronic respiratory failure with hypoxia and hypercapnia 02/02/2022 10/04/2022 Overview: See care coordination note Heterozygous alpha 1-antitrypsin deficiency 07/30/2021 10/04/2022 Former smoker 04/10/2020 10/04/2022 Obesity 11/30/2017 10/04/2022 Stage 4 very severe COPD by GOLD classification 09/29/2017 10/04/2022 Overview: History: home O2 3L with rest and 4L with activity, and 3L with sleep. Assessment:07/20/2022: Bilateral lung transplantation via Clamshell incision with assistance of [facility] ECMO (Central aortic 21 Fr cannula, 26 Fr Right femoral venous drainage cannula) , MELVIN and RUL Wedge resections Plan: IS per ALD Bronchiectasis 09/29/2017 10/04/2022 Overview: See care coordination note Umbilical hernia 07/10/2012 10/04/2022 Pain in joint, ankle and foot 04/18/2012 10/04/2022 COPD (chronic obstructive pulmonary disease) 10/04/2022 Overview: See care coordination note Premature atrial contraction 07/22/2022 Overview: See care coordination note documented as of this encounter (statuses as of 10/04/2022) [facility] History of Past illness Narrative* Problem Noted Date Diagnosed Date Resolved Date Generalized anxiety disorder 08/03/2022 10/04/2022 Postoperative pain 07/28/2022 Immunosuppressed status 07/26/2022 0809/2022 Current chronic use of systemic steroids 07/26/2022 10/04/2022 Atelectasis 07/23/2022 10/04/2022 Overview: 07/23/2022 Encourage PEP with deep breathing and cough. Hypophosphatemia 07/23/2022 10/04/2022 Overview: 07/23/2022 Replete phosphorus as needed. Streptococcus pneumoniae 07/23/2022 Obesity, Class I, BMI 30-34.9 07/22/2022 10/04/2022 On mechanically assisted ventilation 07/21/2022 07/22/2022 Overview: History: Postoperative. Assessment: Currently intubated and sedated. Grade 1 airway. Plan: WTE/Bronch AM 07/21 Hypotension, unspecified 07/21/2022 Overview: History: Postoperative. Assessment: Hypotensive requiring vasopressor for hemodynamic support. Plan: Titrate Levo infusion to maintain MAP goal 70-80. See care coordination note 07/23/2022 Vasopressin infusion weaned off overnight. Stress hyperglycemia 07/21/2022 023 Overview: History: no DM history Assessment: Perioperative insulin resistance and exacerbation of hyperglycemia. Plan: RHI infusion per CVICU nomogram to maintain BG <150 mg/dL. See care coordination note 07/23/2022 Transition to sliding scale insulin for blood glucose control. Acute post-operative pain 07/21/2022 Overview: History: Postoperative. Assessment: Currently intubated and sedated. Plan: IV push fentanyl until able to use CIRCULATION LIBRARIAN. Initiate scheduled Lidocaine patches and Tylenol. Consider oxycodone IR as needed for breakthrough pain after extubation. See care coordination note 07/23/2022 Continue bupivacaine/fentanyl PCEA for pain control. Emphysema due to alpha-1-ant itrypsin deficiency 07/20/2022 10/04/2022 Overview: History: hx of A1AT deficiency with home O2 3L with rest and 4L with activity, and 3L with sleep. Assessment:07/20/2022: Bilateral lung transplantation via Clamshell incision with assistance of [facility] ECMO (Central aortic 21 Fr cannula, 26 Fr Right femoral venous drainage cannula) , MELVIN and RUL Wedge resections Plan: IS per ALD Lung transplant candidate 07/20/2022 Lung transplant planned 07/17/202209/08 Chronic respiratory failure with hypoxia and hypercapnia 02/02/2022 10/04/2022 Overview: See care coordination note Heterozygous alpha 1-antitrypsin deficiency 07/30/2021 10/04/2022 Former smoker 04/10/2020 10/04/2022 Obesity 11/30/2017 10/04/2022 Stage 4 very severe COPD by GOLD classification 09/29/2017 10/04/2022 Overview: History: home O2 3L with rest and 4L with activity, and 3L with sleep. Assessment:07/20/2022: Bilateral lung transplantation via Clamshell incision with assistance of [facility] ECMO (Central aortic 21 Fr cannula, 26 Fr Right femoral venous drainage cannula) , MELVIN and RUL Wedge resections Plan: IS per ALD Bronchiectasis 09/29/2017 10/04/2022 Overview: See care coordination note Umbilical hernia 07/10/2012 10/04/2022 Pain in joint, ankle and foot 04/18/2012 10/04/2022 COPD (chronic obstructive pulmonary disease) 10/04/2022 Overview: See care coordination note Premature atrial contraction 07/22/2022 Overview: See care coordination note documented as of this encounter (statuses as of 10/04/2022) [facility] of Past illness Narrative* Problem Noted Date Diagnosed Date Resolved Date Generalized anxiety disorder 08/03/2022 10/04/2022 Postoperative pain 07/28/2022 Immunosuppressed status 07/26/2022 0809/2022 Current chronic use of systemic steroids 07/26/2022 10/04/2022 Atelectasis 07/23/2022 10/04/2022 Overview: 07/23/2022 Encourage PEP with deep breathing and cough. Hypophosphatemia 07/23/2022 10/04/2022 Overview: 07/23/2022 Replete phosphorus as needed. Streptococcus pneumoniae 07/23/2022 Obesity, Class I, BMI 30-34.9 07/22/2022 10/04/2022 On mechanically assisted ventilation 07/21/2022 07/22/2022 Overview: History: Postoperative. Assessment: Currently intubated and sedated. Grade 1 airway. Plan: WTE/Bronch AM 07/21 Hypotension, unspecified 07/21/2022 Overview: History: Postoperative. Assessment: Hypotensive requiring vasopressor for hemodynamic support. Plan: Titrate Levo infusion to maintain MAP goal 70-80. See care coordination note 07/23/2022 Vasopressin infusion weaned off overnight. Stress hyperglycemia 07/21/2022 023 Overview: History: no DM history Assessment: Perioperative insulin resistance and exacerbation of hyperglycemia. Plan: RHI infusion per CVICU nomogram to maintain BG <150 mg/dL. See care coordination note 07/23/2022 Transition to sliding scale insulin for blood glucose control. Acute post-operative pain 07/21/2022 Overview: History: Postoperative. Assessment: Currently intubated and sedated. Plan: IV push fentanyl until able to use CIRCULATION LIBRARIAN. Initiate scheduled Lidocaine patches and Tylenol. Consider oxycodone IR as needed for breakthrough pain after extubation. See care coordination note 07/23/2022 Continue bupivacaine/fentanyl PCEA for pain control. Emphysema due to alpha-1-ant itrypsin deficiency 07/20/2022 10/04/2022 Overview: History: hx of A1AT deficiency with home O2 3L with rest and 4L with activity, and 3L with sleep. Assessment:07/20/2022: Bilateral lung transplantation via Clamshell incision with assistance of [facility] ECMO (Central aortic 21 Fr cannula, 26 Fr Right femoral venous drainage cannula) , MELVIN and RUL Wedge resections Plan: IS per ALD Lung transplant candidate 07/20/2022 Lung transplant planned 07/17/202209/08 Chronic respiratory failure with hypoxia and hypercapnia 02/02/2022 10/04/2022 Overview: See care coordination note Heterozygous alpha 1-antitrypsin deficiency 07/30/2021 10/04/2022 Former smoker 04/10/2020 10/04/2022 Obesity 11/30/2017 10/04/2022 Stage 4 very severe COPD by GOLD classification 09/29/2017 10/04/2022 Overview: History: home O2 3L with rest and 4L with activity, and 3L with sleep. Assessment:07/20/2022: Bilateral lung transplantation via Clamshell incision with assistance of [facility] ECMO (Central aortic 21 Fr cannula, 26 Fr Right femoral venous drainage cannula) , MELVIN and RUL Wedge resections Plan: IS per ALD Bronchiectasis 09/29/2017 10/04/2022 Overview: See care coordination note Umbilical hernia 07/10/2012 10/04/2022 Pain in joint, ankle and foot 04/18/2012 10/04/2022 COPD (chronic obstructive pulmonary disease) 10/04/2022 Overview: See care coordination note Premature atrial contraction 07/22/2022 Overview: See care coordination note documented as of this encounter (statuses as of 10/04/2022) [facility] of Past illness Narrative* Problem Noted Date Diagnosed Date Resolved Date Generalized anxiety disorder 08/03/2022 10/04/2022 Postoperative pain 07/28/2022 Immunosuppressed status 07/26/2022 0809/2022 Current chronic use of systemic steroids 07/26/2022 10/04/2022 Atelectasis 07/23/2022 10/04/2022 Overview: 07/23/2022 Encourage PEP with deep breathing and cough. Hypophosphatemia 07/23/2022 10/04/2022 Overview: 07/23/2022 Replete phosphorus as needed. Streptococcus pneumoniae 07/23/2022 Obesity, Class I, BMI 30-34.9 07/22/2022 10/04/2022 On mechanically assisted ventilation 07/21/2022 07/22/2022 Overview: History: Postoperative. Assessment: Currently intubated and sedated. Grade 1 airway. Plan: WTE/Bronch AM 07/21 Hypotension, unspecified 07/21/2022 Overview: History: Postoperative. Assessment: Hypotensive requiring vasopressor for hemodynamic support. Plan: Titrate Levo infusion to maintain MAP goal 70-80. See care coordination note 07/23/2022 Vasopressin infusion weaned off overnight. Stress hyperglycemia 07/21/2022 023 Overview: History: no DM history Assessment: Perioperative insulin resistance and exacerbation of hyperglycemia. Plan: RHI infusion per CVICU nomogram to maintain BG <150 mg/dL. See care coordination note 07/23/2022 Transition to sliding scale insulin for blood glucose control. Acute post-operative pain 07/21/2022 Overview: History: Postoperative. Assessment: Currently intubated and sedated. Plan: IV push fentanyl until able to use CIRCULATION LIBRARIAN. Initiate scheduled Lidocaine patches and Tylenol. Consider oxycodone IR as needed for breakthrough pain after extubation. See care coordination note 07/23/2022 Continue bupivacaine/fentanyl PCEA for pain control. Emphysema due to alpha-1-ant itrypsin deficiency 07/20/2022 10/04/2022 Overview: History: hx of A1AT deficiency with home O2 3L with rest and 4L with activity, and 3L with sleep. Assessment:07/20/2022: Bilateral lung transplantation via Clamshell incision with assistance of [facility] ECMO (Central aortic 21 Fr cannula, 26 Fr Right femoral venous drainage cannula) , MELVIN and RUL Wedge resections Plan: IS per ALD Lung transplant candidate 07/20/2022 Lung transplant planned 07/17/202209/08 Chronic respiratory failure with hypoxia and hypercapnia 02/02/2022 10/04/2022 Overview: See care coordination note Heterozygous alpha 1-antitrypsin deficiency 07/30/2021 10/04/2022 Former smoker 04/10/2020 10/04/2022 Obesity 11/30/2017 10/04/2022 Stage 4 very severe COPD by GOLD classification 09/29/2017 10/04/2022 Overview: History: home O2 3L with rest and 4L with activity, and 3L with sleep. Assessment:07/20/2022: Bilateral lung transplantation via Clamshell incision with assistance of [facility] (Central aortic 21 Fr cannula, 26 Fr Right femoral venous drainage cannula) , MELVIN and RUL Wedge resections Plan: IS per ALD Bronchiectasis 09/29/2017 10/04/2022 Overview: See care coordination note Umbilical hernia 07/10/2012 10/04/2022 Pain in joint, ankle and foot 04/18/2012 10/04/2022 COPD (chronic obstructive pulmonary disease) 10/04/2022 Overview: See care coordination note Premature atrial contraction 07/22/2022 Overview: See care coordination note documented as of this encounter (statuses as of 10/05/2022) [facility] History of Past illness Narrative* Problem Noted Date Diagnosed Date Resolved Date Generalized anxiety disorder 08/03/2022 10/04/2022 Postoperative pain 07/28/2022 Immunosuppressed status 07/26/2022 0809/2022 Current chronic use of systemic steroids 07/26/2022 10/04/2022 Atelectasis 07/23/2022 10/04/2022 Overview: 07/23/2022 Encourage PEP with deep breathing and cough. Hypophosphatemia 07/23/2022 10/04/2022 Overview: 07/23/2022 Replete phosphorus as needed. Streptococcus pneumoniae 07/23/2022 Obesity, Class I, BMI 30-34.9 07/22/2022 10/04/2022 On mechanically assisted ventilation 07/21/2022 07/22/2022 Overview: History: Postoperative. Assessment: Currently intubated and sedated. Grade 1 airway. Plan: WTE/Bronch AM 07/21 Hypotension, unspecified 07/21/2022 Overview: History: Postoperative. Assessment: Hypotensive requiring vasopressor for hemodynamic support. Plan: Titrate Levo infusion to maintain MAP goal 70-80. See care coordination note 07/23/2022 Vasopressin infusion weaned off overnight. Stress hyperglycemia 07/21/2022 023 Overview: History: no DM history Assessment: Perioperative insulin resistance and exacerbation of hyperglycemia. Plan: RHI infusion per CVICU nomogram to maintain BG <150 mg/dL. See care coordination note 07/23/2022 Transition to sliding scale insulin for blood glucose control. Acute post-operative pain 07/21/2022 Overview: History: Postoperative. Assessment: Currently intubated and sedated. Plan: IV push fentanyl until able to use CIRCULATION LIBRARIAN. Initiate scheduled Lidocaine patches and Tylenol. Consider oxycodone IR as needed for breakthrough pain after extubation. See care coordination note 07/23/2022 Continue bupivacaine/fentanyl PCEA for pain control. Emphysema due to alpha-1-ant itrypsin deficiency 07/20/2022 10/04/2022 Overview: History: hx of A1AT deficiency with home O2 3L with rest and 4L with activity, and 3L with sleep. Assessment:07/20/2022: Bilateral lung transplantation via Clamshell incision with assistance of [facility] (Central aortic 21 Fr cannula, 26 Fr Right femoral venous drainage cannula) , MELVIN and RUL Wedge resections Plan: IS per ALD Lung transplant candidate 07/20/2022 Lung transplant planned 07/17/202209/08 Chronic respiratory failure with hypoxia and hypercapnia 02/02/2022 10/04/2022 Overview: See care coordination note Heterozygous alpha 1-antitrypsin deficiency 07/30/2021 10/04/2022 Former smoker 04/10/2020 10/04/2022 Obesity 11/30/2017 10/04/2022 Stage 4 very severe COPD by GOLD classification 09/29/2017 10/04/2022 Overview: History: home O2 3L with rest and 4L with activity, and 3L with sleep. Assessment:07/20/2022: Bilateral lung transplantation via Clamshell incision with assistance of [facility] (Central aortic 21 Fr cannula, 26 Fr Right femoral venous drainage cannula) , MELVIN and RUL Wedge resections Plan: IS per ALD Bronchiectasis 09/29/2017 10/04/2022 Overview: See care coordination note Umbilical hernia 07/10/2012 10/04/2022 Pain in joint, ankle and foot 04/18/2012 10/04/2022 COPD (chronic obstructive pulmonary disease) 10/04/2022 Overview: See care coordination note Premature atrial contraction 07/22/2022 Overview: See care coordination note documented as of this encounter (statuses as of 10/05/2022) [facility] History of Past illness Narrative* Problem Noted Date Diagnosed Date Resolved Date Generalized anxiety disorder 08/03/2022 10/04/2022 Postoperative pain 07/28/2022 Immunosuppressed status 07/26/2022 08/2 09/2022 Current chronic use of systemic steroids 07/26/2022 10/04/2022 Atelectasis 07/23/2022 10/04/2022 Overview: 07/23/2022 Encourage PEP with deep breathing and cough. Hypophosphatemia 07/23/2022 10/04/2022 Overview: 07/23/2022 Replete phosphorus as needed. Streptococcus pneumoniae 07/23/2022 Obesity, Class I, BMI 30-34.9 07/22/2022 10/04/2022 On mechanically assisted ventilation 07/21/2022 07/22/2022 Overview: History: Postoperative. Assessment: Currently intubated and sedated. Grade 1 airway. Plan: WTE/Bronch AM 07/21 Hypotension, unspecified 07/21/2022 Overview: History: Postoperative. Assessment: Hypotensive requiring vasopressor for hemodynamic support. Plan: Titrate Levo infusion to maintain MAP goal 70-80. See care coordination note 07/23/2022 Vasopressin infusion weaned off overnight. Stress hyperglycemia 07/21/2022 023 Overview: History: no DM history Assessment: Perioperative insulin resistance and exacerbation of hyperglycemia. Plan: RHI infusion per CVICU nomogram to maintain BG <150 mg/dL. See care coordination note 07/23/2022 Transition to sliding scale insulin for blood glucose control. Acute post-operative pain 07/21/2022 Overview: History: Postoperative. Assessment: Currently intubated and sedated. Plan: IV push fentanyl until able to use CIRCULATION LIBRARIAN. Initiate scheduled Lidocaine patches and Tylenol. Consider oxycodone IR as needed for breakthrough pain after extubation. See care coordination note 07/23/2022 Continue bupivacaine/fentanyl PCEA for pain control. Emphysema due to alpha-1-ant itrypsin deficiency 07/20/2022 10/04/2022 Overview: History: hx of A1AT deficiency with home O2 3L with rest and 4L with activity, and 3L with sleep. Assessment:07/20/2022: Bilateral lung transplantation via Clamshell incision with assistance of [facility] (Central aortic 21 Fr cannula, 26 Fr Right femoral venous drainage cannula) , MELVIN and RUL Wedge resections Plan: IS per ALD Lung transplant candidate 07/20/2022 Lung transplant planned 07/17/202209/08 Chronic respiratory failure with hypoxia and hypercapnia 02/02/2022 10/04/2022 Overview: See care coordination note Heterozygous alpha 1-antitrypsin deficiency 07/30/2021 10/04/2022 Former smoker 04/10/2020 10/04/2022 Obesity 11/30/2017 10/04/2022 Stage 4 very severe COPD by GOLD classification 09/29/2017 10/04/2022 Overview: History: home O2 3L with rest and 4L with activity, and 3L with sleep. Assessment:07/20/2022: Bilateral lung transplantation via Clamshell incision with assistance of [facility] (Central aortic 21 Fr cannula, 26 Fr Right femoral venous drainage cannula) , MELVIN and RUL Wedge resections Plan: IS per ALD Bronchiectasis 09/29/2017 10/04/2022 Overview: See care coordination note Umbilical hernia 07/10/2012 10/04/2022 Pain in joint, ankle and foot 04/18/2012 10/04/2022 COPD (chronic obstructive pulmonary disease) 10/04/2022 Overview: See care coordination note Premature atrial contraction 07/22/2022 Overview: See care coordination note documented as of this encounter (statuses as of 10/21/2022) [facility] History of Past illness Narrative* Problem Noted Date Diagnosed Date Resolved Date Generalized anxiety disorder 08/03/2022 10/04/2022 Postoperative pain 07/28/2022 Immunosuppressed status 07/26/2022 08/09/2022 Current chronic use of systemic steroids 07/26/2022 10/04/2022 Atelectasis 07/23/2022 10/04/2022 Overview: 07/23/2022 Encourage PEP with deep breathing and cough. Hypophosphatemia 07/23/2022 10/04/2022 Overview: 07/23/2022 Replete phosphorus as needed. Streptococcus pneumoniae 07/23/2022 Obesity, Class I, BMI 30-34.9 07/22/2022 10/04/2022 On mechanically assisted ventilation 07/21/2022 07/22/2022 Overview: History: Postoperative. Assessment: Currently intubated and sedated. Grade 1 airway. Plan: WTE/Bronch AM 07/21 Hypotension, unspecified 07/21/2022 Overview: History: Postoperative. Assessment: Hypotensive requiring vasopressor for hemodynamic support. Plan: Titrate Levo infusion to maintain MAP goal 70-80. See care coordination note 07/23/2022 Vasopressin infusion weaned off overnight. Stress hyperglycemia 07/21/2022 023 Overview: History: no DM history Assessment: Perioperative insulin resistance and exacerbation of hyperglycemia. Plan: RHI infusion per CVICU nomogram to maintain BG <150 mg/dL. See care coordination note 07/23/2022 Transition to sliding scale insulin for blood glucose control. Acute post-operative pain 07/21/2022 Overview: History: Postoperative. Assessment: Currently intubated and sedated. Plan: IV push fentanyl until able to use CIRCULATION LIBRARIAN. Initiate scheduled Lidocaine patches and Tylenol. Consider oxycodone IR as needed for breakthrough pain after extubation. See care coordination note 07/23/2022 Continue bupivacaine/fentanyl PCEA for pain control. Emphysema due to alpha-1-ant itrypsin deficiency 07/20/2022 10/04/2022 Overview: History: hx of A1AT deficiency with home O2 3L with rest and 4L with activity, and 3L with sleep. Assessment:07/20/2022: Bilateral lung transplantation via Clamshell incision with assistance of [facility] (Central aortic 21 Fr cannula, 26 Fr Right femoral venous drainage cannula) , MELVIN and RUL Wedge resections Plan: IS per ALD Lung transplant candidate 07/20/2022 Lung transplant planned 07/17/202209/08 Chronic respiratory failure with hypoxia and hypercapnia 02/02/2022 10/04/2022 Overview: See care coordination note Heterozygous alpha 1-antitrypsin deficiency 07/30/2021 10/04/2022 Former smoker 04/10/2020 10/04/2022 Obesity 11/30/2017 10/04/2022 Stage 4 very severe COPD by GOLD classification 09/29/2017 10/04/2022 Overview: History: home O2 3L with rest and 4L with activity, and 3L with sleep. Assessment:07/20/2022: Bilateral lung transplantation via Clamshell incision with assistance of [facility] (Central aortic 21 Fr cannula, 26 Fr Right femoral venous drainage cannula) , MELVIN and RUL Wedge resections Plan: IS per ALD Bronchiectasis 09/29/2017 10/04/2022 Overview: See care coordination note Umbilical hernia 07/10/2012 10/04/2022 Pain in joint, ankle and foot 04/18/2012 10/04/2022 COPD (chronic obstructive pulmonary disease) 10/04/2022 Overview: See care coordination note Premature atrial contraction 07/22/2022 Overview: See care coordination note documented as of this encounter (statuses as of 10/22/2022) [facility] History of Past illness Narrative* Problem Noted Date Diagnosed Date Resolved Date Generalized anxiety disorder 08/03/2022 10/04/2022 Postoperative pain 07/28/2022 Immunosuppressed status 07/26/2022 0809/2022 Current chronic use of systemic steroids 07/26/2022 10/04/2022 Atelectasis 07/23/2022 10/04/2022 Overview: 07/23/2022 Encourage PEP with deep breathing and cough. Hypophosphatemia 07/23/2022 10/04/2022 Overview: 07/23/2022 Replete phosphorus as needed. Streptococcus pneumoniae 07/23/2022 Obesity, Class I, BMI 30-34.9 07/22/2022 10/04/2022 On mechanically assisted ventilation 07/21/2022 07/22/2022 Overview: History: Postoperative. Assessment: Currently intubated and sedated. Grade 1 airway. Plan: WTE/Bronch AM 07/21 Hypotension, unspecified 07/21/2022 Overview: History: Postoperative. Assessment: Hypotensive requiring vasopressor for hemodynamic support. Plan: Titrate Levo infusion to maintain MAP goal 70-80. See care coordination note 07/23/2022 Vasopressin infusion weaned off overnight. Stress hyperglycemia 07/21/2022 023 Overview: History: no DM history Assessment: Perioperative insulin resistance and exacerbation of hyperglycemia. Plan: RHI infusion per CVICU nomogram to maintain BG <150 mg/dL. See care coordination note 07/23/2022 Transition to sliding scale insulin for blood glucose control. Acute post-operative pain 07/21/2022 Overview: History: Postoperative. Assessment: Currently intubated and sedated. Plan: IV push fentanyl until able to use CIRCULATION LIBRARIAN. Initiate scheduled Lidocaine patches and Tylenol. Consider oxycodone IR as needed for breakthrough pain after extubation. See care coordination note 07/23/2022 Continue bupivacaine/fentanyl PCEA for pain control. Emphysema due to alpha-1-ant itrypsin deficiency 07/20/2022 10/04/2022 Overview: History: hx of A1AT deficiency with home O2 3L with rest and 4L with activity, and 3L with sleep. Assessment:07/20/2022: Bilateral lung transplantation via Clamshell incision with assistance of [facility] (Central aortic 21 Fr cannula, 26 Fr Right femoral venous drainage cannula) , MELVIN and RUL Wedge resections Plan: IS per ALD Lung transplant candidate 07/20/2022 Lung transplant planned 07/17/202209/08 Chronic respiratory failure with hypoxia and hypercapnia 02/02/2022 10/04/2022 Overview: See care coordination note Heterozygous alpha 1-antitrypsin deficiency 07/30/2021 10/04/2022 Former smoker 04/10/2020 10/04/2022 Obesity 11/30/2017 10/04/2022 Stage 4 very severe COPD by GOLD classification 09/29/2017 10/04/2022 Overview: History: home O2 3L with rest and 4L with activity, and 3L with sleep. Assessment:07/20/2022: Bilateral lung transplantation via Clamshell incision with assistance of [facility] (Central aortic 21 Fr cannula, 26 Fr Right femoral venous drainage cannula) , MELVIN and RUL Wedge resections Plan: IS per ALD Bronchiectasis 09/29/2017 10/04/2022 Overview: See care coordination note Umbilical hernia 07/10/2012 10/04/2022 Pain in joint, ankle and foot 04/18/2012 10/04/2022 COPD (chronic obstructive pulmonary disease) 10/04/2022 Overview: See care coordination note Premature atrial contraction 07/22/2022 Overview: See care coordination note documented as of this encounter (statuses as of 10/22/2022) [facility] History of Past illness Narrative* Problem Noted Date Diagnosed Date Resolved Date Generalized anxiety disorder 08/03/2022 10/04/2022 Postoperative pain 07/28/2022 Immunosuppressed status 07/26/2022 0809/2022 Current chronic use of systemic steroids 07/26/2022 10/04/2022 Atelectasis 07/23/2022 10/04/2022 Overview: 07/23/2022 Encourage PEP with deep breathing and cough. Hypophosphatemia 07/23/2022 10/04/2022 Overview: 07/23/2022 Replete phosphorus as needed. Streptococcus pneumoniae 07/23/2022 Obesity, Class I, BMI 30-34.9 07/22/2022 10/04/2022 On mechanically assisted ventilation 07/21/2022 07/22/2022 Overview: History: Postoperative. Assessment: Currently intubated and sedated. Grade 1 airway. Plan: WTE/Bronch AM 07/21 Hypotension, unspecified 07/21/2022 Overview: History: Postoperative. Assessment: Hypotensive requiring vasopressor for hemodynamic support. Plan: Titrate Levo infusion to maintain MAP goal 70-80. See care coordination note 07/23/2022 Vasopressin infusion weaned off overnight. Stress hyperglycemia 07/21/2022 023 Overview: History: no DM history Assessment: Perioperative insulin resistance and exacerbation of hyperglycemia. Plan: RHI infusion per CVICU nomogram to maintain BG <150 mg/dL. See care coordination note 07/23/2022 Transition to sliding scale insulin for blood glucose control. Acute post-operative pain 07/21/2022 Overview: History: Postoperative. Assessment: Currently intubated and sedated. Plan: IV push fentanyl until able to use CIRCULATION LIBRARIAN. Initiate scheduled Lidocaine patches and Tylenol. Consider oxycodone IR as needed for breakthrough pain after extubation. See care coordination note 07/23/2022 Continue bupivacaine/fentanyl PCEA for pain control. Emphysema due to alpha-1-ant itrypsin deficiency 07/20/2022 10/04/2022 Overview: History: hx of A1AT deficiency with home O2 3L with rest and 4L with activity, and 3L with sleep. Assessment:07/20/2022: Bilateral lung transplantation via Clamshell incision with assistance of [facility] (Central aortic 21 Fr cannula, 26 Fr Right femoral venous drainage cannula) , MELVIN and RUL Wedge resections Plan: IS per ALD Lung transplant candidate 07/20/2022 Lung transplant planned 07/17/202209/08 Chronic respiratory failure with hypoxia and hypercapnia 02/02/2022 10/04/2022 Overview: See care coordination note Heterozygous alpha 1-antitrypsin deficiency 07/30/2021 10/04/2022 Former smoker 04/10/2020 10/04/2022 Obesity 11/30/2017 10/04/2022 Stage 4 very severe COPD by GOLD classification 09/29/2017 10/04/2022 Overview: History: home O2 3L with rest and 4L with activity, and 3L with sleep. Assessment:07/20/2022: Bilateral lung transplantation via Clamshell incision with assistance of [facility] (Central aortic 21 Fr cannula, 26 Fr Right femoral venous drainage cannula) , MELVIN and RUL Wedge resections Plan: IS per ALD Bronchiectasis 09/29/2017 10/04/2022 Overview: See care coordination note Umbilical hernia 07/10/2012 10/04/2022 Pain in joint, ankle and foot 04/18/2012 10/04/2022 COPD (chronic obstructive pulmonary disease) 10/04/2022 Overview: See care coordination note Premature atrial contraction 07/22/2022 Overview: See care coordination note documented as of this encounter (statuses as of 10/23/2022) [facility] History of Past illness Narrative* Problem Noted Date Diagnosed Date Resolved Date Generalized anxiety disorder 08/03/2022 10/04/2022 Postoperative pain 07/28/2022 Immunosuppressed status 07/26/2022 0809/2022 Current chronic use of systemic steroids 07/26/2022 10/04/2022 Atelectasis 07/23/2022 10/04/2022 Overview: 07/23/2022 Encourage PEP with deep breathing and cough. Hypophosphatemia 07/23/2022 10/04/2022 Overview: 07/23/2022 Replete phosphorus as needed. Streptococcus pneumoniae 07/23/2022 Obesity, Class I, BMI 30-34.9 07/22/2022 10/04/2022 On mechanically assisted ventilation 07/21/2022 07/22/2022 Overview: History: Postoperative. Assessment: Currently intubated and sedated. Grade 1 airway. Plan: WTE/Bronch AM 07/21 Hypotension, unspecified 07/21/2022 Overview: History: Postoperative. Assessment: Hypotensive requiring vasopressor for hemodynamic support. Plan: Titrate Levo infusion to maintain MAP goal 70-80. See care coordination note 07/23/2022 Vasopressin infusion weaned off overnight. Stress hyperglycemia 07/21/2022 023 Overview: History: no DM history Assessment: Perioperative insulin resistance and exacerbation of hyperglycemia. Plan: RHI infusion per CVICU nomogram to maintain BG <150 mg/dL. See care coordination note 07/23/2022 Transition to sliding scale insulin for blood glucose control. Acute post-operative pain 07/21/2022 Overview: History: Postoperative. Assessment: Currently intubated and sedated. Plan: IV push fentanyl until able to use CIRCULATION LIBRARIAN. Initiate scheduled Lidocaine patches and Tylenol. Consider oxycodone IR as needed for breakthrough pain after extubation. See care coordination note 07/23/2022 Continue bupivacaine/fentanyl PCEA for pain control. Emphysema due to alpha-1-ant itrypsin deficiency 07/20/2022 10/04/2022 Overview: History: hx of A1AT deficiency with home O2 3L with rest and 4L with activity, and 3L with sleep. Assessment:07/20/2022: Bilateral lung transplantation via Clamshell incision with assistance of [facility] (Central aortic 21 Fr cannula, 26 Fr Right femoral venous drainage cannula) , MELVIN and RUL Wedge resections Plan: IS per ALD Lung transplant candidate 07/20/2022 Lung transplant planned 07/17/202209/08 Chronic respiratory failure with hypoxia and hypercapnia 02/02/2022 10/04/2022 Overview: See care coordination note Heterozygous alpha 1-antitrypsin deficiency 07/30/2021 10/04/2022 Former smoker 04/10/2020 10/04/2022 Obesity 11/30/2017 10/04/2022 Stage 4 very severe COPD by GOLD classification 09/29/2017 10/04/2022 Overview: History: home O2 3L with rest and 4L with activity, and 3L with sleep. Assessment:07/20/2022: Bilateral lung transplantation via Clamshell incision with assistance of [facility] (Central aortic 21 Fr cannula, 26 Fr Right femoral venous drainage cannula) , MELVIN and RUL Wedge resections Plan: IS per ALD Bronchiectasis 09/29/2017 10/04/2022 Overview: See care coordination note Umbilical hernia 07/10/2012 10/04/2022 Pain in joint, ankle and foot 04/18/2012 10/04/2022 COPD (chronic obstructive pulmonary disease) 10/04/2022 Overview: See care coordination note Premature atrial contraction 07/22/2022 Overview: See care coordination note documented as of this encounter (statuses as of 10/25/2022) [facility] History of Past illness Narrative* Problem Noted Date Diagnosed Date Resolved Date Generalized anxiety disorder 08/03/2022 10/04/2022 Postoperative pain 07/28/2022 Immunosuppressed status 07/26/2022 08/2 09/2022 Current chronic use of systemic steroids 07/26/2022 10/04/2022 Atelectasis 07/23/2022 10/04/2022 Overview: 07/23/2022 Encourage PEP with deep breathing and cough. Hypophosphatemia 07/23/2022 10/04/2022 Overview: 07/23/2022 Replete phosphorus as needed. Streptococcus pneumoniae 07/23/2022 Obesity, Class I, BMI 30-34.9 07/22/2022 10/04/2022 On mechanically assisted ventilation 07/21/2022 07/22/2022 Overview: History: Postoperative. Assessment: Currently intubated and sedated. Grade 1 airway. Plan: WTE/Bronch AM 07/21 Hypotension, unspecified 07/21/2022 Overview: History: Postoperative. Assessment: Hypotensive requiring vasopressor for hemodynamic support. Plan: Titrate Levo infusion to maintain MAP goal 70-80. See care coordination note 07/23/2022 Vasopressin infusion weaned off overnight. Stress hyperglycemia 07/21/2022 023 Overview: History: no DM history Assessment: Perioperative insulin resistance and exacerbation of hyperglycemia. Plan: RHI infusion per CVICU nomogram to maintain BG <150 mg/dL. See care coordination note 07/23/2022 Transition to sliding scale insulin for blood glucose control. Acute post-operative pain 07/21/2022 Overview: History: Postoperative. Assessment: Currently intubated and sedated. Plan: IV push fentanyl until able to use CIRCULATION LIBRARIAN. Initiate scheduled Lidocaine patches and Tylenol. Consider oxycodone IR as needed for breakthrough pain after extubation. See care coordination note 07/23/2022 Continue bupivacaine/fentanyl PCEA for pain control. Emphysema due to alpha-1-ant itrypsin deficiency 07/20/2022 10/04/2022 Overview: History: hx of A1AT deficiency with home O2 3L with rest and 4L with activity, and 3L with sleep. Assessment:07/20/2022: Bilateral lung transplantation via Clamshell incision with assistance of [facility] (Central aortic 21 Fr cannula, 26 Fr Right femoral venous drainage cannula) , MELVIN and RUL Wedge resections Plan: IS per ALD Lung transplant candidate 07/20/2022 Lung transplant planned 07/17/202209/08 Chronic respiratory failure with hypoxia and hypercapnia 02/02/2022 10/04/2022 Overview: See care coordination note Heterozygous alpha 1-antitrypsin deficiency 07/30/2021 10/04/2022 Former smoker 04/10/2020 10/04/2022 Obesity 11/30/2017 10/04/2022 Stage 4 very severe COPD by GOLD classification 09/29/2017 10/04/2022 Overview: History: home O2 3L with rest and 4L with activity, and 3L with sleep. Assessment:07/20/2022: Bilateral lung transplantation via Clamshell incision with assistance of [facility] (Central aortic 21 Fr cannula, 26 Fr Right femoral venous drainage cannula) , MELVIN and RUL Wedge resections Plan: IS per ALD Bronchiectasis 09/29/2017 10/04/2022 Overview: See care coordination note Umbilical hernia 07/10/2012 10/04/2022 Pain in joint, ankle and foot 04/18/2012 10/04/2022 COPD (chronic obstructive pulmonary disease) 10/04/2022 Overview: See care coordination note Premature atrial contraction 07/22/2022 Overview: See care coordination note documented as of this encounter (statuses as of 10/26/2022) [facility]2023 History of Past illness Narrative* Problem Noted Date Diagnosed Date Resolved Date Generalized anxiety disorder 08/03/2022 10/04/2022 Postoperative pain 07/28/2022 Immunosuppressed status 07/26/2022 0809/2022 Current chronic use of systemic steroids 07/26/2022 10/04/2022 Atelectasis 07/23/2022 10/04/2022 Overview: 07/23/2022 Encourage PEP with deep breathing and cough. Hypophosphatemia 07/23/2022 10/04/2022 Overview: 07/23/2022 Replete phosphorus as needed. Streptococcus pneumoniae 07/23/2022 Obesity, Class I, BMI 30-34.9 07/22/2022 10/04/2022 On mechanically assisted ventilation 07/21/2022 07/22/2022 Overview: History: Postoperative. Assessment: Currently intubated and sedated. Grade 1 airway. Plan: WTE/Bronch AM 07/21 Hypotension, unspecified 07/21/2022 Overview: History: Postoperative. Assessment: Hypotensive requiring vasopressor for hemodynamic support. Plan: Titrate Levo infusion to maintain MAP goal 70-80. See care coordination note 07/23/2022 Vasopressin infusion weaned off overnight. Stress hyperglycemia 07/21/2022 023 Overview: History: no DM history Assessment: Perioperative insulin resistance and exacerbation of hyperglycemia. Plan: RHI infusion per CVICU nomogram to maintain BG <150 mg/dL. See care coordination note 07/23/2022 Transition to sliding scale insulin for blood glucose control. Acute post-operative pain 07/21/2022 Overview: History: Postoperative. Assessment: Currently intubated and sedated. Plan: IV push fentanyl until able to use CIRCULATION LIBRARIAN. Initiate scheduled Lidocaine patches and Tylenol. Consider oxycodone IR as needed for breakthrough pain after extubation. See care coordination note 07/23/2022 Continue bupivacaine/fentanyl PCEA for pain control. Emphysema due to alpha-1-ant itrypsin deficiency 07/20/2022 10/04/2022 Overview: History: hx of A1AT deficiency with home O2 3L with rest and 4L with activity, and 3L with sleep. Assessment:07/20/2022: Bilateral lung transplantation via Clamshell incision with assistance of [facility] (Central aortic 21 Fr cannula, 26 Fr Right femoral venous drainage cannula) , MELVIN and RUL Wedge resections Plan: IS per ALD Lung transplant candidate 07/20/2022 Lung transplant planned 07/17/202209/08 Chronic respiratory failure with hypoxia and hypercapnia 02/02/2022 10/04/2022 Overview: See care coordination note Heterozygous alpha 1-antitrypsin deficiency 07/30/2021 10/04/2022 Former smoker 04/10/2020 10/04/2022 Obesity 11/30/2017 10/04/2022 Stage 4 very severe COPD by GOLD classification 09/29/2017 10/04/2022 Overview: History: home O2 3L with rest and 4L with activity, and 3L with sleep. Assessment:07/20/2022: Bilateral lung transplantation via Clamshell incision with assistance of [facility] (Central aortic 21 Fr cannula, 26 Fr Right femoral venous drainage cannula) , MELVIN and RUL Wedge resections Plan: IS per ALD Bronchiectasis 09/29/2017 10/04/2022 Overview: See care coordination note Umbilical hernia 07/10/2012 10/04/2022 Pain in joint, ankle and foot 04/18/2012 10/04/2022 COPD (chronic obstructive pulmonary disease) 10/04/2022 Overview: See care coordination note Premature atrial contraction 07/22/2022 Overview: See care coordination note documented as of this encounter (statuses as of 10/27/2022) [facility] History of Past illness Narrative* Problem Noted Date Diagnosed Date Resolved Date Generalized anxiety disorder 08/03/2022 10/04/2022 Postoperative pain 07/28/2022 Immunosuppressed status 07/26/2022 0809/2022 Current chronic use of systemic steroids 07/26/2022 10/04/2022 Atelectasis 07/23/2022 10/04/2022 Overview: 07/23/2022 Encourage PEP with deep breathing and cough. Hypophosphatemia 07/23/2022 10/04/2022 Overview: 07/23/2022 Replete phosphorus as needed. Streptococcus pneumoniae 07/23/2022 Obesity, Class I, BMI 30-34.9 07/22/2022 10/04/2022 On mechanically assisted ventilation 07/21/2022 07/22/2022 Overview: History: Postoperative. Assessment: Currently intubated and sedated. Grade 1 airway. Plan: WTE/Bronch AM 07/21 Hypotension, unspecified 07/21/2022 Overview: History: Postoperative. Assessment: Hypotensive requiring vasopressor for hemodynamic support. Plan: Titrate Levo infusion to maintain MAP goal 70-80. See care coordination note 07/23/2022 Vasopressin infusion weaned off overnight. Stress hyperglycemia 07/21/2022 023 Overview: History: no DM history Assessment: Perioperative insulin resistance and exacerbation of hyperglycemia. Plan: RHI infusion per CVICU nomogram to maintain BG <150 mg/dL. See care coordination note 07/23/2022 Transition to sliding scale insulin for blood glucose control. Acute post-operative pain 07/21/2022 Overview: History: Postoperative. Assessment: Currently intubated and sedated. Plan: IV push fentanyl until able to use CIRCULATION LIBRARIAN. Initiate scheduled Lidocaine patches and Tylenol. Consider oxycodone IR as needed for breakthrough pain after extubation. See care coordination note 07/23/2022 Continue bupivacaine/fentanyl PCEA for pain control. Emphysema due to alpha-1-ant itrypsin deficiency 07/20/2022 10/04/2022 Overview: History: hx of A1AT deficiency with home O2 3L with rest and 4L with activity, and 3L with sleep. Assessment:07/20/2022: Bilateral lung transplantation via Clamshell incision with assistance of [facility] (Central aortic 21 Fr cannula, 26 Fr Right femoral venous drainage cannula) , MELVIN and RUL Wedge resections Plan: IS per ALD Lung transplant candidate 07/20/2022 Lung transplant planned 07/17/202209/08 Chronic respiratory failure with hypoxia and hypercapnia 02/02/2022 10/04/2022 Overview: See care coordination note Heterozygous alpha 1-antitrypsin deficiency 07/30/2021 10/04/2022 Former smoker 04/10/2020 10/04/2022 Obesity 11/30/2017 10/04/2022 Stage 4 very severe COPD by GOLD classification 09/29/2017 10/04/2022 Overview: History: home O2 3L with rest and 4L with activity, and 3L with sleep. Assessment:07/20/2022: Bilateral lung transplantation via Clamshell incision with assistance of [facility] (Central aortic 21 Fr cannula, 26 Fr Right femoral venous drainage cannula) , MELVIN and RUL Wedge resections Plan: IS per ALD Bronchiectasis 09/29/2017 10/04/2022 Overview: See care coordination note Umbilical hernia 07/10/2012 10/04/2022 Pain in joint, ankle and foot 04/18/2012 10/04/2022 COPD (chronic obstructive pulmonary disease) 10/04/2022 Overview: See care coordination note Premature atrial contraction 07/22/2022 Overview: See care coordination note documented as of this encounter (statuses as of 10/27/2022) [facility] History of Past illness Narrative* Problem Noted Date Diagnosed Date Resolved Date Generalized anxiety disorder 08/03/2022 10/04/2022 Postoperative pain 07/28/2022 Immunosuppressed status 07/26/202209/08 Current chronic use of systemic steroids 07/26/2022 10/04/2022 Atelectasis 07/23/2022 10/04/2022 Overview: 07/23/2022 Encourage PEP with deep breathing and cough. Hypophosphatemia 07/23/2022 10/04/2022 Overview: 07/23/2022 Replete phosphorus as needed. Streptococcus pneumoniae 07/23/2022 Obesity, Class I, BMI 30-34.9 07/22/2022 10/04/2022 On mechanically assisted ventilation 07/21/2022 07/22/2022 Overview: History: Postoperative. Assessment: Currently intubated and sedated. Grade 1 airway. Plan: WTE/Bronch AM 07/21 Hypotension, unspecified 07/21/2022 Overview: History: Postoperative. Assessment: Hypotensive requiring vasopressor for hemodynamic support. Plan: Titrate Levo infusion to maintain MAP goal 70-80. See care coordination note 07/23/2022 Vasopressin infusion weaned off overnight. Stress hyperglycemia 07/21/2022 023 Overview: History: no DM history Assessment: Perioperative insulin resistance and exacerbation of hyperglycemia. Plan: RHI infusion per CVICU nomogram to maintain BG <150 mg/dL. See care coordination note 07/23/2022 Transition to sliding scale insulin for blood glucose control. Acute post-operative pain 07/21/2022 Overview: History: Postoperative. Assessment: Currently intubated and sedated. Plan: IV push fentanyl until able to use CIRCULATION LIBRARIAN. Initiate scheduled Lidocaine patches and Tylenol. Consider oxycodone IR as needed for breakthrough pain after extubation. See care coordination note 07/23/2022 Continue bupivacaine/fentanyl PCEA for pain control. Emphysema due to alpha-1-ant itrypsin deficiency 07/20/2022 10/04/2022 Overview: History: hx of A1AT deficiency with home O2 3L with rest and 4L with activity, and 3L with sleep. Assessment:07/20/2022: Bilateral lung transplantation via Clamshell incision with assistance of [facility] (Central aortic 21 Fr cannula, 26 Fr Right femoral venous drainage cannula) , MELVIN and RUL Wedge resections Plan: IS per ALD Lung transplant candidate 07/20/2022 Lung transplant planned 07/17/202209/08 Chronic respiratory failure with hypoxia and hypercapnia 02/02/2022 10/04/2022 Overview: See care coordination note Heterozygous alpha 1-antitrypsin deficiency 07/30/2021 10/04/2022 Former smoker 04/10/2020 10/04/2022 Obesity 11/30/2017 10/04/2022 Stage 4 very severe COPD by GOLD classification 09/29/2017 10/04/2022 Overview: History: home O2 3L with rest and 4L with activity, and 3L with sleep. Assessment:07/20/2022: Bilateral lung transplantation via Clamshell incision with assistance of [facility] (Central aortic 21 Fr cannula, 26 Fr Right femoral venous drainage cannula) , MELVIN and RUL Wedge resections Plan: IS per ALD Bronchiectasis 09/29/2017 10/04/2022 Overview: See care coordination note Umbilical hernia 07/10/2012 10/04/2022 Pain in joint, ankle and foot 04/18/2012 10/04/2022 COPD (chronic obstructive pulmonary disease) 10/04/2022 Overview: See care coordination note Premature atrial contraction 07/22/2022 Overview: See care coordination note documented as of this encounter (statuses as of 11/01/2022) [facility] History of Past illness Narrative* Problem Noted Date Diagnosed Date Resolved Date Generalized anxiety disorder 08/03/2022 10/04/2022 Postoperative pain 07/28/2022 Immunosuppressed status 07/26/202209/08 Current chronic use of systemic steroids 07/26/2022 10/04/2022 Atelectasis 07/23/2022 10/04/2022 Overview: 07/23/2022 Encourage PEP with deep breathing and cough. Hypophosphatemia 07/23/2022 10/04/2022 Overview: 07/23/2022 Replete phosphorus as needed. Streptococcus pneumoniae 07/23/2022 Obesity, Class I, BMI 30-34.9 07/22/2022 10/04/2022 On mechanically assisted ventilation 07/21/2022 07/22/2022 Overview: History: Postoperative. Assessment: Currently intubated and sedated. Grade 1 airway. Plan: WTE/Bronch AM 07/21 Hypotension, unspecified 07/21/2022 Overview: History: Postoperative. Assessment: Hypotensive requiring vasopressor for hemodynamic support. Plan: Titrate Levo infusion to maintain MAP goal 70-80. See care coordination note 07/23/2022 Vasopressin infusion weaned off overnight. Stress hyperglycemia 07/21/2022 023 Overview: History: no DM history Assessment: Perioperative insulin resistance and exacerbation of hyperglycemia. Plan: RHI infusion per CVICU nomogram to maintain BG <150 mg/dL. See care coordination note 07/23/2022 Transition to sliding scale insulin for blood glucose control. Acute post-operative pain 07/21/2022 Overview: History: Postoperative. Assessment: Currently intubated and sedated. Plan: IV push fentanyl until able to use CIRCULATION LIBRARIAN. Initiate scheduled Lidocaine patches and Tylenol. Consider oxycodone IR as needed for breakthrough pain after extubation. See care coordination note 07/23/2022 Continue bupivacaine/fentanyl PCEA for pain control. Emphysema due to alpha-1-ant itrypsin deficiency 07/20/2022 10/04/2022 Overview: History: hx of A1AT deficiency with home O2 3L with rest and 4L with activity, and 3L with sleep. Assessment:07/20/2022: Bilateral lung transplantation via Clamshell incision with assistance of [facility] (Central aortic 21 Fr cannula, 26 Fr Right femoral venous drainage cannula) , MELVIN and RUL Wedge resections Plan: IS per ALD Lung transplant candidate 07/20/2022 Lung transplant planned 07/17/202209/08 Chronic respiratory failure with hypoxia and hypercapnia 02/02/2022 10/04/2022 Overview: See care coordination note Heterozygous alpha 1-antitrypsin deficiency 07/30/2021 10/04/2022 Former smoker 04/10/2020 10/04/2022 Obesity 11/30/2017 10/04/2022 Stage 4 very severe COPD by GOLD classification 09/29/2017 10/04/2022 Overview: History: home O2 3L with rest and 4L with activity, and 3L with sleep. Assessment:07/20/2022: Bilateral lung transplantation via Clamshell incision with assistance of [facility] (Central aortic 21 Fr cannula, 26 Fr Right femoral venous drainage cannula) , MELVIN and RUL Wedge resections Plan: IS per ALD Bronchiectasis 09/29/2017 10/04/2022 Overview: See care coordination note Umbilical hernia 07/10/2012 10/04/2022 Pain in joint, ankle and foot 04/18/2012 10/04/2022 COPD (chronic obstructive pulmonary disease) 10/04/2022 Overview: See care coordination note Premature atrial contraction 07/22/2022 Overview: See care coordination note documented as of this encounter (statuses as of 11/02/2022) [facility] History of Past illness Narrative* Problem Noted Date Diagnosed Date Resolved Date Generalized anxiety disorder 08/03/2022 10/04/2022 Postoperative pain 07/28/2022 Immunosuppressed status 07/26/202209/08 Current chronic use of systemic steroids 07/26/2022 10/04/2022 Atelectasis 07/23/2022 10/04/2022 Overview: 07/23/2022 Encourage PEP with deep breathing and cough. Hypophosphatemia 07/23/2022 10/04/2022 Overview: 07/23/2022 Replete phosphorus as needed. Streptococcus pneumoniae 07/23/2022 Obesity, Class I, BMI 30-34.9 07/22/2022 10/04/2022 On mechanically assisted ventilation 07/21/2022 07/22/2022 Overview: History: Postoperative. Assessment: Currently intubated and sedated. Grade 1 airway. Plan: WTE/Bronch AM 07/21 Hypotension, unspecified 07/21/2022 Overview: History: Postoperative. Assessment: Hypotensive requiring vasopressor for hemodynamic support. Plan: Titrate Levo infusion to maintain MAP goal 70-80. See care coordination note 07/23/2022 Vasopressin infusion weaned off overnight. Stress hyperglycemia 07/21/2022 023 Overview: History: no DM history Assessment: Perioperative insulin resistance and exacerbation of hyperglycemia. Plan: RHI infusion per CVICU nomogram to maintain BG <150 mg/dL. See care coordination note 07/23/2022 Transition to sliding scale insulin for blood glucose control. Acute post-operative pain 07/21/2022 Overview: History: Postoperative. Assessment: Currently intubated and sedated. Plan: IV push fentanyl until able to use CIRCULATION LIBRARIAN. Initiate scheduled Lidocaine patches and Tylenol. Consider oxycodone IR as needed for breakthrough pain after extubation. See care coordination note 07/23/2022 Continue bupivacaine/fentanyl PCEA for pain control. Emphysema due to alpha-1-ant itrypsin deficiency 07/20/2022 10/04/2022 Overview: History: hx of A1AT deficiency with home O2 3L with rest and 4L with activity, and 3L with sleep. Assessment:07/20/2022: Bilateral lung transplantation via Clamshell incision with assistance of [facility] (Central aortic 21 Fr cannula, 26 Fr Right femoral venous drainage cannula) , MELVIN and RUL Wedge resections Plan: IS per ALD Lung transplant candidate 07/20/2022 Lung transplant planned 07/17/202209/08 Chronic respiratory failure with hypoxia and hypercapnia 02/02/2022 10/04/2022 Overview: See care coordination note Heterozygous alpha 1-antitrypsin deficiency 07/30/2021 10/04/2022 Former smoker 04/10/2020 10/04/2022 Obesity 11/30/2017 10/04/2022 Stage 4 very severe COPD by GOLD classification 09/29/2017 10/04/2022 Overview: History: home O2 3L with rest and 4L with activity, and 3L with sleep. Assessment:07/20/2022: Bilateral lung transplantation via Clamshell incision with assistance of [facility] (Central aortic 21 Fr cannula, 26 Fr Right femoral venous drainage cannula) , MELVIN and RUL Wedge resections Plan: IS per ALD Bronchiectasis 09/29/2017 10/04/2022 Overview: See care coordination note Umbilical hernia 07/10/2012 10/04/2022 Pain in joint, ankle and foot 04/18/2012 10/04/2022 COPD (chronic obstructive pulmonary disease) 10/04/2022 Overview: See care coordination note Premature atrial contraction 07/22/2022 Overview: See care coordination note documented as of this encounter (statuses as of 11/03/2022) [facility] History of Past illness Narrative* Problem Noted Date Diagnosed Date Resolved Date Generalized anxiety disorder 08/03/2022 10/04/2022 Postoperative pain 07/28/2022 Immunosuppressed status 07/26/2022 0809/2022 Current chronic use of systemic steroids 07/26/2022 10/04/2022 Atelectasis 07/23/2022 10/04/2022 Overview: 07/23/2022 Encourage PEP with deep breathing and cough. Hypophosphatemia 07/23/2022 10/04/2022 Overview: 07/23/2022 Replete phosphorus as needed. Streptococcus pneumoniae 07/23/2022 Obesity, Class I, BMI 30-34.9 07/22/2022 10/04/2022 On mechanically assisted ventilation 07/21/2022 07/22/2022 Overview: History: Postoperative. Assessment: Currently intubated and sedated. Grade 1 airway. Plan: WTE/Bronch AM 07/21 Hypotension, unspecified 07/21/2022 Overview: History: Postoperative. Assessment: Hypotensive requiring vasopressor for hemodynamic support. Plan: Titrate Levo infusion to maintain MAP goal 70-80. See care coordination note 07/23/2022 Vasopressin infusion weaned off overnight. Stress hyperglycemia 07/21/2022 023 Overview: History: no DM history Assessment: Perioperative insulin resistance and exacerbation of hyperglycemia. Plan: RHI infusion per CVICU nomogram to maintain BG <150 mg/dL. See care coordination note 07/23/2022 Transition to sliding scale insulin for blood glucose control. Acute post-operative pain 07/21/2022 Overview: History: Postoperative. Assessment: Currently intubated and sedated. Plan: IV push fentanyl until able to use CIRCULATION LIBRARIAN. Initiate scheduled Lidocaine patches and Tylenol. Consider oxycodone IR as needed for breakthrough pain after extubation. See care coordination note 07/23/2022 Continue bupivacaine/fentanyl PCEA for pain control. Emphysema due to alpha-1-ant itrypsin deficiency 07/20/2022 10/04/2022 Overview: History: hx of A1AT deficiency with home O2 3L with rest and 4L with activity, and 3L with sleep. Assessment:07/20/2022: Bilateral lung transplantation via Clamshell incision with assistance of [facility] (Central aortic 21 Fr cannula, 26 Fr Right femoral venous drainage cannula) , MELVIN and RUL Wedge resections Plan: IS per ALD Lung transplant candidate 07/20/2022 Lung transplant planned 07/17/202209/08 Chronic respiratory failure with hypoxia and hypercapnia 02/02/2022 10/04/2022 Overview: See care coordination note Heterozygous alpha 1-antitrypsin deficiency 07/30/2021 10/04/2022 Former smoker 04/10/2020 10/04/2022 Obesity 11/30/2017 10/04/2022 Stage 4 very severe COPD by GOLD classification 09/29/2017 10/04/2022 Overview: History: home O2 3L with rest and 4L with activity, and 3L with sleep. Assessment:07/20/2022: Bilateral lung transplantation via Clamshell incision with assistance of [facility] (Central aortic 21 Fr cannula, 26 Fr Right femoral venous drainage cannula) , MELVIN and RUL Wedge resections Plan: IS per ALD Bronchiectasis 09/29/2017 10/04/2022 Overview: See care coordination note Umbilical hernia 07/10/2012 10/04/2022 Pain in joint, ankle and foot 04/18/2012 10/04/2022 COPD (chronic obstructive pulmonary disease) 10/04/2022 Overview: See care coordination note Premature atrial contraction 07/22/2022 Overview: See care coordination note documented as of this encounter (statuses as of 11/06/2022) [facility] History of Past illness Narrative* Problem Noted Date Diagnosed Date Resolved Date Generalized anxiety disorder 08/03/2022 10/04/2022 Postoperative pain 07/28/2022 Immunosuppressed status 07/26/202209/08 Current chronic use of systemic steroids 07/26/2022 10/04/2022 Atelectasis 07/23/2022 10/04/2022 Overview: 07/23/2022 Encourage PEP with deep breathing and cough. Hypophosphatemia 07/23/2022 10/04/2022 Overview: 07/23/2022 Replete phosphorus as needed. Streptococcus pneumoniae 07/23/2022 Obesity, Class I, BMI 30-34.9 07/22/2022 10/04/2022 On mechanically assisted ventilation 07/21/2022 07/22/2022 Overview: History: Postoperative. Assessment: Currently intubated and sedated. Grade 1 airway. Plan: WTE/Bronch AM 07/21 Hypotension, unspecified 07/21/2022 Overview: History: Postoperative. Assessment: Hypotensive requiring vasopressor for hemodynamic support. Plan: Titrate Levo infusion to maintain MAP goal 70-80. See care coordination note 07/23/2022 Vasopressin infusion weaned off overnight. Stress hyperglycemia 07/21/2022 023 Overview: History: no DM history Assessment: Perioperative insulin resistance and exacerbation of hyperglycemia. Plan: RHI infusion per CVICU nomogram to maintain BG <150 mg/dL. See care coordination note 07/23/2022 Transition to sliding scale insulin for blood glucose control. Acute post-operative pain 07/21/2022 Overview: History: Postoperative. Assessment: Currently intubated and sedated. Plan: IV push fentanyl until able to use CIRCULATION LIBRARIAN. Initiate scheduled Lidocaine patches and Tylenol. Consider oxycodone IR as needed for breakthrough pain after extubation. See care coordination note 07/23/2022 Continue bupivacaine/fentanyl PCEA for pain control. Emphysema due to alpha-1-ant itrypsin deficiency 07/20/2022 10/04/2022 Overview: History: hx of A1AT deficiency with home O2 3L with rest and 4L with activity, and 3L with sleep. Assessment:07/20/2022: Bilateral lung transplantation via Clamshell incision with assistance of [facility] (Central aortic 21 Fr cannula, 26 Fr Right femoral venous drainage cannula) , MELVIN and RUL Wedge resections Plan: IS per ALD Lung transplant candidate 07/20/2022 Lung transplant planned 07/17/202209/08 Chronic respiratory failure with hypoxia and hypercapnia 02/02/2022 10/04/2022 Overview: See care coordination note Heterozygous alpha 1-antitrypsin deficiency 07/30/2021 10/04/2022 Former smoker 04/10/2020 10/04/2022 Obesity 11/30/2017 10/04/2022 Stage 4 very severe COPD by GOLD classification 09/29/2017 10/04/2022 Overview: History: home O2 3L with rest and 4L with activity, and 3L with sleep. Assessment:07/20/2022: Bilateral lung transplantation via Clamshell incision with assistance of [facility] (Central aortic 21 Fr cannula, 26 Fr Right femoral venous drainage cannula) , MELVIN and RUL Wedge resections Plan: IS per ALD Bronchiectasis 09/29/2017 10/04/2022 Overview: See care coordination note Umbilical hernia 07/10/2012 10/04/2022 Pain in joint, ankle and foot 04/18/2012 10/04/2022 COPD (chronic obstructive pulmonary disease) 10/04/2022 Overview: See care coordination note Premature atrial contraction 07/22/2022 Overview: See care coordination note documented as of this encounter (statuses as of 11/10/2022) [facility] History of Past illness Narrative* Problem Noted Date Diagnosed Date Resolved Date Generalized anxiety disorder 08/03/2022 10/04/2022 Postoperative pain 07/28/2022 Immunosuppressed status 07/26/202209/08 Current chronic use of systemic steroids 07/26/2022 10/04/2022 Atelectasis 07/23/2022 10/04/2022 Overview: 07/23/2022 Encourage PEP with deep breathing and cough. Hypophosphatemia 07/23/2022 10/04/2022 Overview: 07/23/2022 Replete phosphorus as needed. Streptococcus pneumoniae 07/23/2022 Obesity, Class I, BMI 30-34.9 07/22/2022 10/04/2022 On mechanically assisted ventilation 07/21/2022 07/22/2022 Overview: History: Postoperative. Assessment: Currently intubated and sedated. Grade 1 airway. Plan: WTE/Bronch AM 07/21 Hypotension, unspecified 07/21/2022 Overview: History: Postoperative. Assessment: Hypotensive requiring vasopressor for hemodynamic support. Plan: Titrate Levo infusion to maintain MAP goal 70-80. See care coordination note 07/23/2022 Vasopressin infusion weaned off overnight. Stress hyperglycemia 07/21/2022 023 Overview: History: no DM history Assessment: Perioperative insulin resistance and exacerbation of hyperglycemia. Plan: RHI infusion per CVICU nomogram to maintain BG <150 mg/dL. See care coordination note 07/23/2022 Transition to sliding scale insulin for blood glucose control. Acute post-operative pain 07/21/2022 Overview: History: Postoperative. Assessment: Currently intubated and sedated. Plan: IV push fentanyl until able to use CIRCULATION LIBRARIAN. Initiate scheduled Lidocaine patches and Tylenol. Consider oxycodone IR as needed for breakthrough pain after extubation. See care coordination note 07/23/2022 Continue bupivacaine/fentanyl PCEA for pain control. Emphysema due to alpha-1-ant itrypsin deficiency 07/20/2022 10/04/2022 Overview: History: hx of A1AT deficiency with home O2 3L with rest and 4L with activity, and 3L with sleep. Assessment:07/20/2022: Bilateral lung transplantation via Clamshell incision with assistance of [facility] (Central aortic 21 Fr cannula, 26 Fr Right femoral venous drainage cannula) , MELVIN and RUL Wedge resections Plan: IS per ALD Lung transplant candidate 07/20/2022 Lung transplant planned 07/17/202209/08 Chronic respiratory failure with hypoxia and hypercapnia 02/02/2022 10/04/2022 Overview: See care coordination note Heterozygous alpha 1-antitrypsin deficiency 07/30/2021 10/04/2022 Former smoker 04/10/2020 10/04/2022 Obesity 11/30/2017 10/04/2022 Stage 4 very severe COPD by GOLD classification 09/29/2017 10/04/2022 Overview: History: home O2 3L with rest and 4L with activity, and 3L with sleep. Assessment:07/20/2022: Bilateral lung transplantation via Clamshell incision with assistance of [facility] (Central aortic 21 Fr cannula, 26 Fr Right femoral venous drainage cannula) , MELVIN and RUL Wedge resections Plan: IS per ALD Bronchiectasis 09/29/2017 10/04/2022 Overview: See care coordination note Umbilical hernia 07/10/2012 10/04/2022 Pain in joint, ankle and foot 04/18/2012 10/04/2022 COPD (chronic obstructive pulmonary disease) 10/04/2022 Overview: See care coordination note Premature atrial contraction 07/22/2022 Overview: See care coordination note documented as of this encounter (statuses as of 11/13/2022) [facility] History of Past illness Narrative* Problem Noted Date Diagnosed Date Resolved Date Generalized anxiety disorder 08/03/2022 10/04/2022 Postoperative pain 07/28/2022 Immunosuppressed status 07/26/202209/08 Current chronic use of systemic steroids 07/26/2022 10/04/2022 Atelectasis 07/23/2022 10/04/2022 Overview: 07/23/2022 Encourage PEP with deep breathing and cough. Hypophosphatemia 07/23/2022 10/04/2022 Overview: 07/23/2022 Replete phosphorus as needed. Streptococcus pneumoniae 07/23/2022 Obesity, Class I, BMI 30-34.9 07/22/2022 10/04/2022 On mechanically assisted ventilation 07/21/2022 07/22/2022 Overview: History: Postoperative. Assessment: Currently intubated and sedated. Grade 1 airway. Plan: WTE/Bronch AM 07/21 Hypotension, unspecified 07/21/2022 Overview: History: Postoperative. Assessment: Hypotensive requiring vasopressor for hemodynamic support. Plan: Titrate Levo infusion to maintain MAP goal 70-80. See care coordination note 07/23/2022 Vasopressin infusion weaned off overnight. Stress hyperglycemia 07/21/2022 023 Overview: History: no DM history Assessment: Perioperative insulin resistance and exacerbation of hyperglycemia. Plan: RHI infusion per CVICU nomogram to maintain BG <150 mg/dL. See care coordination note 07/23/2022 Transition to sliding scale insulin for blood glucose control. Acute post-operative pain 07/21/2022 Overview: History: Postoperative. Assessment: Currently intubated and sedated. Plan: IV push fentanyl until able to use CIRCULATION LIBRARIAN. Initiate scheduled Lidocaine patches and Tylenol. Consider oxycodone IR as needed for breakthrough pain after extubation. See care coordination note 07/23/2022 Continue bupivacaine/fentanyl PCEA for pain control. Emphysema due to alpha-1-ant itrypsin deficiency 07/20/2022 10/04/2022 Overview: History: hx of A1AT deficiency with home O2 3L with rest and 4L with activity, and 3L with sleep. Assessment:07/20/2022: Bilateral lung transplantation via Clamshell incision with assistance of [facility] (Central aortic 21 Fr cannula, 26 Fr Right femoral venous drainage cannula) , MELVIN and RUL Wedge resections Plan: IS per ALD Lung transplant candidate 07/20/2022 Lung transplant planned 07/17/202209/08 Chronic respiratory failure with hypoxia and hypercapnia 02/02/2022 10/04/2022 Overview: See care coordination note Heterozygous alpha 1-antitrypsin deficiency 07/30/2021 10/04/2022 Former smoker 04/10/2020 10/04/2022 Obesity 11/30/2017 10/04/2022 Stage 4 very severe COPD by GOLD classification 09/29/2017 10/04/2022 Overview: History: home O2 3L with rest and 4L with activity, and 3L with sleep. Assessment:07/20/2022: Bilateral lung transplantation via Clamshell incision with assistance of [facility] (Central aortic 21 Fr cannula, 26 Fr Right femoral venous drainage cannula) , MELVIN and RUL Wedge resections Plan: IS per ALD Bronchiectasis 09/29/2017 10/04/2022 Overview: See care coordination note Umbilical hernia 07/10/2012 10/04/2022 Pain in joint, ankle and foot 04/18/2012 10/04/2022 COPD (chronic obstructive pulmonary disease) 10/04/2022 Overview: See care coordination note Premature atrial contraction 07/22/2022 Overview: See care coordination note documented as of this encounter (statuses as of 11/13/2022) [facility] History of Past illness Narrative* Problem Noted Date Diagnosed Date Resolved Date Generalized anxiety disorder 08/03/2022 10/04/2022 Postoperative pain 07/28/2022 Immunosuppressed status 07/26/202209/08 Current chronic use of systemic steroids 07/26/2022 10/04/2022 Atelectasis 07/23/2022 10/04/2022 Overview: 07/23/2022 Encourage PEP with deep breathing and cough. Hypophosphatemia 07/23/2022 10/04/2022 Overview: 07/23/2022 Replete phosphorus as needed. Streptococcus pneumoniae 07/23/2022 Obesity, Class I, BMI 30-34.9 07/22/2022 10/04/2022 On mechanically assisted ventilation 07/21/2022 07/22/2022 Overview: History: Postoperative. Assessment: Currently intubated and sedated. Grade 1 airway. Plan: WTE/Bronch AM 07/21 Hypotension, unspecified 07/21/2022 Overview: History: Postoperative. Assessment: Hypotensive requiring vasopressor for hemodynamic support. Plan: Titrate Levo infusion to maintain MAP goal 70-80. See care coordination note 07/23/2022 Vasopressin infusion weaned off overnight. Stress hyperglycemia 07/21/2022 023 Overview: History: no DM history Assessment: Perioperative insulin resistance and exacerbation of hyperglycemia. Plan: RHI infusion per CVICU nomogram to maintain BG <150 mg/dL. See care coordination note 07/23/2022 Transition to sliding scale insulin for blood glucose control. Acute post-operative pain 07/21/2022 Overview: History: Postoperative. Assessment: Currently intubated and sedated. Plan: IV push fentanyl until able to use CIRCULATION LIBRARIAN. Initiate scheduled Lidocaine patches and Tylenol. Consider oxycodone IR as needed for breakthrough pain after extubation. See care coordination note 07/23/2022 Continue bupivacaine/fentanyl PCEA for pain control. Emphysema due to alpha-1-ant itrypsin deficiency 07/20/2022 10/04/2022 Overview: History: hx of A1AT deficiency with home O2 3L with rest and 4L with activity, and 3L with sleep. Assessment:07/20/2022: Bilateral lung transplantation via Clamshell incision with assistance of [facility] (Central aortic 21 Fr cannula, 26 Fr Right femoral venous drainage cannula) , MELVIN and RUL Wedge resections Plan: IS per ALD Lung transplant candidate 07/20/2022 Lung transplant planned 07/17/202209/08 Chronic respiratory failure with hypoxia and hypercapnia 02/02/2022 10/04/2022 Overview: See care coordination note Heterozygous alpha 1-antitrypsin deficiency 07/30/2021 10/04/2022 Former smoker 04/10/2020 10/04/2022 Obesity 11/30/2017 10/04/2022 Stage 4 very severe COPD by GOLD classification 09/29/2017 10/04/2022 Overview: History: home O2 3L with rest and 4L with activity, and 3L with sleep. Assessment:07/20/2022: Bilateral lung transplantation via Clamshell incision with assistance of [facility] (Central aortic 21 Fr cannula, 26 Fr Right femoral venous drainage cannula) , MELVIN and RUL Wedge resections Plan: IS per ALD Bronchiectasis 09/29/2017 10/04/2022 Overview: See care coordination note Umbilical hernia 07/10/2012 10/04/2022 Pain in joint, ankle and foot 04/18/2012 10/04/2022 COPD (chronic obstructive pulmonary disease) 10/04/2022 Overview: See care coordination note Premature atrial contraction 07/22/2022 Overview: See care coordination note documented as of this encounter (statuses as of 11/16/2022) [facility] History of Past illness Narrative* Problem Noted Date Diagnosed Date Resolved Date Generalized anxiety disorder 08/03/2022 10/04/2022 Postoperative pain 07/28/2022 Immunosuppressed status 07/26/202209/08 Current chronic use of systemic steroids 07/26/2022 10/04/2022 Atelectasis 07/23/2022 10/04/2022 Overview: 07/23/2022 Encourage PEP with deep breathing and cough. Hypophosphatemia 07/23/2022 10/04/2022 Overview: 07/23/2022 Replete phosphorus as needed. Streptococcus pneumoniae 07/23/2022 Obesity, Class I, BMI 30-34.9 07/22/2022 10/04/2022 On mechanically assisted ventilation 07/21/2022 07/22/2022 Overview: History: Postoperative. Assessment: Currently intubated and sedated. Grade 1 airway. Plan: WTE/Bronch AM 07/21 Hypotension, unspecified 07/21/2022 Overview: History: Postoperative. Assessment: Hypotensive requiring vasopressor for hemodynamic support. Plan: Titrate Levo infusion to maintain MAP goal 70-80. See care coordination note 07/23/2022 Vasopressin infusion weaned off overnight. Stress hyperglycemia 07/21/2022 023 Overview: History: no DM history Assessment: Perioperative insulin resistance and exacerbation of hyperglycemia. Plan: RHI infusion per CVICU nomogram to maintain BG <150 mg/dL. See care coordination note 07/23/2022 Transition to sliding scale insulin for blood glucose control. Acute post-operative pain 07/21/2022 Overview: History: Postoperative. Assessment: Currently intubated and sedated. Plan: IV push fentanyl until able to use CIRCULATION LIBRARIAN. Initiate scheduled Lidocaine patches and Tylenol. Consider oxycodone IR as needed for breakthrough pain after extubation. See care coordination note 07/23/2022 Continue bupivacaine/fentanyl PCEA for pain control. Emphysema due to alpha-1-ant itrypsin deficiency 07/20/2022 10/04/2022 Overview: History: hx of A1AT deficiency with home O2 3L with rest and 4L with activity, and 3L with sleep. Assessment:07/20/2022: Bilateral lung transplantation via Clamshell incision with assistance of [facility] (Central aortic 21 Fr cannula, 26 Fr Right femoral venous drainage cannula) , MELVIN and RUL Wedge resections Plan: IS per ALD Lung transplant candidate 07/20/2022 Lung transplant planned 07/17/202209/08 Chronic respiratory failure with hypoxia and hypercapnia 02/02/2022 10/04/2022 Overview: See care coordination note Heterozygous alpha 1-antitrypsin deficiency 07/30/2021 10/04/2022 Former smoker 04/10/2020 10/04/2022 Obesity 11/30/2017 10/04/2022 Stage 4 very severe COPD by GOLD classification 09/29/2017 10/04/2022 Overview: History: home O2 3L with rest and 4L with activity, and 3L with sleep. Assessment:07/20/2022: Bilateral lung transplantation via Clamshell incision with assistance of [facility] (Central aortic 21 Fr cannula, 26 Fr Right femoral venous drainage cannula) , MELVIN and RUL Wedge resections Plan: IS per ALD Bronchiectasis 09/29/2017 10/04/2022 Overview: See care coordination note Umbilical hernia 07/10/2012 10/04/2022 Pain in joint, ankle and foot 04/18/2012 10/04/2022 COPD (chronic obstructive pulmonary disease) 10/04/2022 Overview: See care coordination note Premature atrial contraction 07/22/2022 Overview: See care coordination note documented as of this encounter (statuses as of 11/22/2022) [facility] History of Past illness Narrative* Problem Noted Date Diagnosed Date Resolved Date Generalized anxiety disorder 08/03/2022 10/04/2022 Postoperative pain 07/28/2022 Immunosuppressed status 07/26/202209/08 Current chronic use of systemic steroids 07/26/2022 10/04/2022 Atelectasis 07/23/2022 10/04/2022 Overview: 07/23/2022 Encourage PEP with deep breathing and cough. Hypophosphatemia 07/23/2022 10/04/2022 Overview: 07/23/2022 Replete phosphorus as needed. Streptococcus pneumoniae 07/23/2022 Obesity, Class I, BMI 30-34.9 07/22/2022 10/04/2022 On mechanically assisted ventilation 07/21/2022 07/22/2022 Overview: History: Postoperative. Assessment: Currently intubated and sedated. Grade 1 airway. Plan: WTE/Bronch AM 07/21 Hypotension, unspecified 07/21/2022 Overview: History: Postoperative. Assessment: Hypotensive requiring vasopressor for hemodynamic support. Plan: Titrate Levo infusion to maintain MAP goal 70-80. See care coordination note 07/23/2022 Vasopressin infusion weaned off overnight. Stress hyperglycemia 07/21/2022 023 Overview: History: no DM history Assessment: Perioperative insulin resistance and exacerbation of hyperglycemia. Plan: RHI infusion per CVICU nomogram to maintain BG <150 mg/dL. See care coordination note 07/23/2022 Transition to sliding scale insulin for blood glucose control. Acute post-operative pain 07/21/2022 Overview: History: Postoperative. Assessment: Currently intubated and sedated. Plan: IV push fentanyl until able to use CIRCULATION LIBRARIAN. Initiate scheduled Lidocaine patches and Tylenol. Consider oxycodone IR as needed for breakthrough pain after extubation. See care coordination note 07/23/2022 Continue bupivacaine/fentanyl PCEA for pain control. Emphysema due to alpha-1-ant itrypsin deficiency 07/20/2022 10/04/2022 Overview: History: hx of A1AT deficiency with home O2 3L with rest and 4L with activity, and 3L with sleep. Assessment:07/20/2022: Bilateral lung transplantation via Clamshell incision with assistance of [facility] (Central aortic 21 Fr cannula, 26 Fr Right femoral venous drainage cannula) , MELVIN and RUL Wedge resections Plan: IS per ALD Lung transplant candidate 07/20/2022 Lung transplant planned 07/17/202209/08 Chronic respiratory failure with hypoxia and hypercapnia 02/02/2022 10/04/2022 Overview: See care coordination note Heterozygous alpha 1-antitrypsin deficiency 07/30/2021 10/04/2022 Former smoker 04/10/2020 10/04/2022 Obesity 11/30/2017 10/04/2022 Stage 4 very severe COPD by GOLD classification 09/29/2017 10/04/2022 Overview: History: home O2 3L with rest and 4L with activity, and 3L with sleep. Assessment:07/20/2022: Bilateral lung transplantation via Clamshell incision with assistance of [facility] (Central aortic 21 Fr cannula, 26 Fr Right femoral venous drainage cannula) , MELVIN and RUL Wedge resections Plan: IS per ALD Bronchiectasis 09/29/2017 10/04/2022 Overview: See care coordination note Umbilical hernia 07/10/2012 10/04/2022 Pain in joint, ankle and foot 04/18/2012 10/04/2022 COPD (chronic obstructive pulmonary disease) 10/04/2022 Overview: See care coordination note Premature atrial contraction 07/22/2022 Overview: See care coordination note documented as of this encounter (statuses as of 11/29/2022) [facility] History of Past illness Narrative* Problem Noted Date Diagnosed Date Resolved Date Generalized anxiety disorder 08/03/2022 10/04/2022 Postoperative pain 07/28/2022 Immunosuppressed status 07/26/202209/08 Current chronic use of systemic steroids 07/26/2022 10/04/2022 Atelectasis 07/23/2022 10/04/2022 Overview: 07/23/2022 Encourage PEP with deep breathing and cough. Hypophosphatemia 07/23/2022 10/04/2022 Overview: 07/23/2022 Replete phosphorus as needed. Streptococcus pneumoniae 07/23/2022 Obesity, Class I, BMI 30-34.9 07/22/2022 10/04/2022 On mechanically assisted ventilation 07/21/2022 07/22/2022 Overview: History: Postoperative. Assessment: Currently intubated and sedated. Grade 1 airway. Plan: WTE/Bronch AM 07/21 Hypotension, unspecified 07/21/2022 Overview: History: Postoperative. Assessment: Hypotensive requiring vasopressor for hemodynamic support. Plan: Titrate Levo infusion to maintain MAP goal 70-80. See care coordination note 07/23/2022 Vasopressin infusion weaned off overnight. Stress hyperglycemia 07/21/2022 023 Overview: History: no DM history Assessment: Perioperative insulin resistance and exacerbation of hyperglycemia. Plan: RHI infusion per CVICU nomogram to maintain BG <150 mg/dL. See care coordination note 07/23/2022 Transition to sliding scale insulin for blood glucose control. Acute post-operative pain 07/21/2022 Overview: History: Postoperative. Assessment: Currently intubated and sedated. Plan: IV push fentanyl until able to use CIRCULATION LIBRARIAN. Initiate scheduled Lidocaine patches and Tylenol. Consider oxycodone IR as needed for breakthrough pain after extubation. See care coordination note 07/23/2022 Continue bupivacaine/fentanyl PCEA for pain control. Emphysema due to alpha-1-ant itrypsin deficiency 07/20/2022 10/04/2022 Overview: History: hx of A1AT deficiency with home O2 3L with rest and 4L with activity, and 3L with sleep. Assessment:07/20/2022: Bilateral lung transplantation via Clamshell incision with assistance of [facility] (Central aortic 21 Fr cannula, 26 Fr Right femoral venous drainage cannula) , MELVIN and RUL Wedge resections Plan: IS per ALD Lung transplant candidate 07/20/2022 Lung transplant planned 07/17/202209/08 Chronic respiratory failure with hypoxia and hypercapnia 02/02/2022 10/04/2022 Overview: See care coordination note Heterozygous alpha 1-antitrypsin deficiency 07/30/2021 10/04/2022 Former smoker 04/10/2020 10/04/2022 Obesity 11/30/2017 10/04/2022 Stage 4 very severe COPD by GOLD classification 09/29/2017 10/04/2022 Overview: History: home O2 3L with rest and 4L with activity, and 3L with sleep. Assessment:07/20/2022: Bilateral lung transplantation via Clamshell incision with assistance of [facility] (Central aortic 21 Fr cannula, 26 Fr Right femoral venous drainage cannula) , MELVIN and RUL Wedge resections Plan: IS per ALD Bronchiectasis 09/29/2017 10/04/2022 Overview: See care coordination note Umbilical hernia 07/10/2012 10/04/2022 Pain in joint, ankle and foot 04/18/2012 10/04/2022 COPD (chronic obstructive pulmonary disease) 10/04/2022 Overview: See care coordination note Premature atrial contraction 07/22/2022 Overview: See care coordination note documented as of this encounter (statuses as of 11/29/2022) [facility] History of Past illness Narrative* Problem Noted Date Diagnosed Date Resolved Date Generalized anxiety disorder 08/03/2022 10/04/2022 Postoperative pain 07/28/2022 Immunosuppressed status 07/26/2022 0809/2022 Current chronic use of systemic steroids 07/26/2022 10/04/2022 Atelectasis 07/23/2022 10/04/2022 Overview: 07/23/2022 Encourage PEP with deep breathing and cough. Hypophosphatemia 07/23/2022 10/04/2022 Overview: 07/23/2022 Replete phosphorus as needed. Streptococcus pneumoniae 07/23/2022 Obesity, Class I, BMI 30-34.9 07/22/2022 10/04/2022 On mechanically assisted ventilation 07/21/2022 07/22/2022 Overview: History: Postoperative. Assessment: Currently intubated and sedated. Grade 1 airway. Plan: WTE/Bronch AM 07/21 Hypotension, unspecified 07/21/2022 Overview: History: Postoperative. Assessment: Hypotensive requiring vasopressor for hemodynamic support. Plan: Titrate Levo infusion to maintain MAP goal 70-80. See care coordination note 07/23/2022 Vasopressin infusion weaned off overnight. Stress hyperglycemia 07/21/2022 023 Overview: History: no DM history Assessment: Perioperative insulin resistance and exacerbation of hyperglycemia. Plan: RHI infusion per CVICU nomogram to maintain BG <150 mg/dL. See care coordination note 07/23/2022 Transition to sliding scale insulin for blood glucose control. Acute post-operative pain 07/21/2022 Overview: History: Postoperative. Assessment: Currently intubated and sedated. Plan: IV push fentanyl until able to use CIRCULATION LIBRARIAN. Initiate scheduled Lidocaine patches and Tylenol. Consider oxycodone IR as needed for breakthrough pain after extubation. See care coordination note 07/23/2022 Continue bupivacaine/fentanyl PCEA for pain control. Emphysema due to alpha-1-ant itrypsin deficiency 07/20/2022 10/04/2022 Overview: History: hx of A1AT deficiency with home O2 3L with rest and 4L with activity, and 3L with sleep. Assessment:07/20/2022: Bilateral lung transplantation via Clamshell incision with assistance of [facility] (Central aortic 21 Fr cannula, 26 Fr Right femoral venous drainage cannula) , MELVIN and RUL Wedge resections Plan: IS per ALD Lung transplant candidate 07/20/2022 Lung transplant planned 07/17/202209/08 Chronic respiratory failure with hypoxia and hypercapnia 02/02/2022 10/04/2022 Overview: See care coordination note Heterozygous alpha 1-antitrypsin deficiency 07/30/2021 10/04/2022 Former smoker 04/10/2020 10/04/2022 Obesity 11/30/2017 10/04/2022 Stage 4 very severe COPD by GOLD classification 09/29/2017 10/04/2022 Overview: History: home O2 3L with rest and 4L with activity, and 3L with sleep. Assessment:07/20/2022: Bilateral lung transplantation via Clamshell incision with assistance of [facility] (Central aortic 21 Fr cannula, 26 Fr Right femoral venous drainage cannula) , MELVIN and RUL Wedge resections Plan: IS per ALD Bronchiectasis 09/29/2017 10/04/2022 Overview: See care coordination note Umbilical hernia 07/10/2012 10/04/2022 Pain in joint, ankle and foot 04/18/2012 10/04/2022 COPD (chronic obstructive pulmonary disease) 10/04/2022 Overview: See care coordination note Premature atrial contraction 07/22/2022 Overview: See care coordination note documented as of this encounter (statuses as of 11/29/2022) [facility] History of Past illness Narrative* Problem Noted Date Diagnosed Date Resolved Date Generalized anxiety disorder 08/03/2022 10/04/2022 Postoperative pain 07/28/2022 Immunosuppressed status 07/26/2022 0809/2022 Current chronic use of systemic steroids 07/26/2022 10/04/2022 Atelectasis 07/23/2022 10/04/2022 Overview: 07/23/2022 Encourage PEP with deep breathing and cough. Hypophosphatemia 07/23/2022 10/04/2022 Overview: 07/23/2022 Replete phosphorus as needed. Streptococcus pneumoniae 07/23/2022 Obesity, Class I, BMI 30-34.9 07/22/2022 10/04/2022 On mechanically assisted ventilation 07/21/2022 07/22/2022 Overview: History: Postoperative. Assessment: Currently intubated and sedated. Grade 1 airway. Plan: WTE/Bronch AM 07/21 Hypotension, unspecified 07/21/2022 Overview: History: Postoperative. Assessment: Hypotensive requiring vasopressor for hemodynamic support. Plan: Titrate Levo infusion to maintain MAP goal 70-80. See care coordination note 07/23/2022 Vasopressin infusion weaned off overnight. Stress hyperglycemia 07/21/2022 023 Overview: History: no DM history Assessment: Perioperative insulin resistance and exacerbation of hyperglycemia. Plan: RHI infusion per CVICU nomogram to maintain BG <150 mg/dL. See care coordination note 07/23/2022 Transition to sliding scale insulin for blood glucose control. Acute post-operative pain 07/21/2022 Overview: History: Postoperative. Assessment: Currently intubated and sedated. Plan: IV push fentanyl until able to use CIRCULATION LIBRARIAN. Initiate scheduled Lidocaine patches and Tylenol. Consider oxycodone IR as needed for breakthrough pain after extubation. See care coordination note 07/23/2022 Continue bupivacaine/fentanyl PCEA for pain control. Emphysema due to alpha-1-ant itrypsin deficiency 07/20/2022 10/04/2022 Overview: History: hx of A1AT deficiency with home O2 3L with rest and 4L with activity, and 3L with sleep. Assessment:07/20/2022: Bilateral lung transplantation via Clamshell incision with assistance of [facility] (Central aortic 21 Fr cannula, 26 Fr Right femoral venous drainage cannula) , MELVIN and RUL Wedge resections Plan: IS per ALD Lung transplant candidate 07/20/2022 Lung transplant planned 07/17/202209/08 Chronic respiratory failure with hypoxia and hypercapnia 02/02/2022 10/04/2022 Overview: See care coordination note Heterozygous alpha 1-antitrypsin deficiency 07/30/2021 10/04/2022 Former smoker 04/10/2020 10/04/2022 Obesity 11/30/2017 10/04/2022 Stage 4 very severe COPD by GOLD classification 09/29/2017 10/04/2022 Overview: History: home O2 3L with rest and 4L with activity, and 3L with sleep. Assessment:07/20/2022: Bilateral lung transplantation via Clamshell incision with assistance of [facility] (Central aortic 21 Fr cannula, 26 Fr Right femoral venous drainage cannula) , MELVIN and RUL Wedge resections Plan: IS per ALD Bronchiectasis 09/29/2017 10/04/2022 Overview: See care coordination note Umbilical hernia 07/10/2012 10/04/2022 Pain in joint, ankle and foot 04/18/2012 10/04/2022 COPD (chronic obstructive pulmonary disease) 10/04/2022 Overview: See care coordination note Premature atrial contraction 07/22/2022 Overview: See care coordination note documented as of this encounter (statuses as of 11/30/2022) [facility] History of Past illness Narrative* Problem Noted Date Diagnosed Date Resolved Date Generalized anxiety disorder 08/03/2022 10/04/2022 Postoperative pain 07/28/2022 Immunosuppressed status 07/26/2022 08/2 09/2022 Current chronic use of systemic steroids 07/26/2022 10/04/2022 Atelectasis 07/23/2022 10/04/2022 Overview: 07/23/2022 Encourage PEP with deep breathing and cough. Hypophosphatemia 07/23/2022 10/04/2022 Overview: 07/23/2022 Replete phosphorus as needed. Streptococcus pneumoniae 07/23/2022 Obesity, Class I, BMI 30-34.9 07/22/2022 10/04/2022 On mechanically assisted ventilation 07/21/2022 07/22/2022 Overview: History: Postoperative. Assessment: Currently intubated and sedated. Grade 1 airway. Plan: WTE/Bronch AM 07/21 Hypotension, unspecified 07/21/2022 Overview: History: Postoperative. Assessment: Hypotensive requiring vasopressor for hemodynamic support. Plan: Titrate Levo infusion to maintain MAP goal 70-80. See care coordination note 07/23/2022 Vasopressin infusion weaned off overnight. Stress hyperglycemia 07/21/2022 023 Overview: History: no DM history Assessment: Perioperative insulin resistance and exacerbation of hyperglycemia. Plan: RHI infusion per CVICU nomogram to maintain BG <150 mg/dL. See care coordination note 07/23/2022 Transition to sliding scale insulin for blood glucose control. Acute post-operative pain 07/21/2022 Overview: History: Postoperative. Assessment: Currently intubated and sedated. Plan: IV push fentanyl until able to use CIRCULATION LIBRARIAN. Initiate scheduled Lidocaine patches and Tylenol. Consider oxycodone IR as needed for breakthrough pain after extubation. See care coordination note 07/23/2022 Continue bupivacaine/fentanyl PCEA for pain control. Emphysema due to alpha-1-ant itrypsin deficiency 07/20/2022 10/04/2022 Overview: History: hx of A1AT deficiency with home O2 3L with rest and 4L with activity, and 3L with sleep. Assessment:07/20/2022: Bilateral lung transplantation via Clamshell incision with assistance of [facility] (Central aortic 21 Fr cannula, 26 Fr Right femoral venous drainage cannula) , MELVIN and RUL Wedge resections Plan: IS per ALD Lung transplant candidate 07/20/2022 Lung transplant planned 07/17/202209/08 Chronic respiratory failure with hypoxia and hypercapnia 02/02/2022 10/04/2022 Overview: See care coordination note Heterozygous alpha 1-antitrypsin deficiency 07/30/2021 10/04/2022 Former smoker 04/10/2020 10/04/2022 Obesity 11/30/2017 10/04/2022 Stage 4 very severe COPD by GOLD classification 09/29/2017 10/04/2022 Overview: History: home O2 3L with rest and 4L with activity, and 3L with sleep. Assessment:07/20/2022: Bilateral lung transplantation via Clamshell incision with assistance of [facility] (Central aortic 21 Fr cannula, 26 Fr Right femoral venous drainage cannula) , MELVIN and RUL Wedge resections Plan: IS per ALD Bronchiectasis 09/29/2017 10/04/2022 Overview: See care coordination note Umbilical hernia 07/10/2012 10/04/2022 Pain in joint, ankle and foot 04/18/2012 10/04/2022 COPD (chronic obstructive pulmonary disease) 10/04/2022 Overview: See care coordination note Premature atrial contraction 07/22/2022 Overview: See care coordination note documented as of this encounter (statuses as of 11/30/2022) [facility] History of Past illness Narrative* Problem Noted Date Diagnosed Date Resolved Date Generalized anxiety disorder 08/03/2022 10/04/2022 Postoperative pain 07/28/2022 Immunosuppressed status 07/26/2022 0809/2022 Current chronic use of systemic steroids 07/26/2022 10/04/2022 Atelectasis 07/23/2022 10/04/2022 Overview: 07/23/2022 Encourage PEP with deep breathing and cough. Hypophosphatemia 07/23/2022 10/04/2022 Overview: 07/23/2022 Replete phosphorus as needed. Streptococcus pneumoniae 07/23/2022 Obesity, Class I, BMI 30-34.9 07/22/2022 10/04/2022 On mechanically assisted ventilation 07/21/2022 07/22/2022 Overview: History: Postoperative. Assessment: Currently intubated and sedated. Grade 1 airway. Plan: WTE/Bronch AM 07/21 Hypotension, unspecified 07/21/2022 Overview: History: Postoperative. Assessment: Hypotensive requiring vasopressor for hemodynamic support. Plan: Titrate Levo infusion to maintain MAP goal 70-80. See care coordination note 07/23/2022 Vasopressin infusion weaned off overnight. Stress hyperglycemia 07/21/2022 023 Overview: History: no DM history Assessment: Perioperative insulin resistance and exacerbation of hyperglycemia. Plan: RHI infusion per CVICU nomogram to maintain BG <150 mg/dL. See care coordination note 07/23/2022 Transition to sliding scale insulin for blood glucose control. Acute post-operative pain 07/21/2022 Overview: History: Postoperative. Assessment: Currently intubated and sedated. Plan: IV push fentanyl until able to use CIRCULATION LIBRARIAN. Initiate scheduled Lidocaine patches and Tylenol. Consider oxycodone IR as needed for breakthrough pain after extubation. See care coordination note 07/23/2022 Continue bupivacaine/fentanyl PCEA for pain control. Emphysema due to alpha-1-ant itrypsin deficiency 07/20/2022 10/04/2022 Overview: History: hx of A1AT deficiency with home O2 3L with rest and 4L with activity, and 3L with sleep. Assessment:07/20/2022: Bilateral lung transplantation via Clamshell incision with assistance of [facility] (Central aortic 21 Fr cannula, 26 Fr Right femoral venous drainage cannula) , MELVIN and RUL Wedge resections Plan: IS per ALD Lung transplant candidate 07/20/2022 Lung transplant planned 07/17/202209/08 Chronic respiratory failure with hypoxia and hypercapnia 02/02/2022 10/04/2022 Overview: See care coordination note Heterozygous alpha 1-antitrypsin deficiency 07/30/2021 10/04/2022 Former smoker 04/10/2020 10/04/2022 Obesity 11/30/2017 10/04/2022 Stage 4 very severe COPD by GOLD classification 09/29/2017 10/04/2022 Overview: History: home O2 3L with rest and 4L with activity, and 3L with sleep. Assessment:07/20/2022: Bilateral lung transplantation via Clamshell incision with assistance of [facility] (Central aortic 21 Fr cannula, 26 Fr Right femoral venous drainage cannula) , MELVIN and RUL Wedge resections Plan: IS per ALD Bronchiectasis 09/29/2017 10/04/2022 Overview: See care coordination note Umbilical hernia 07/10/2012 10/04/2022 Pain in joint, ankle and foot 04/18/2012 10/04/2022 COPD (chronic obstructive pulmonary disease) 10/04/2022 Overview: See care coordination note Premature atrial contraction 07/22/2022 Overview: See care coordination note documented as of this encounter (statuses as of 11/30/2022) [facility] History of Past illness Narrative* Problem Noted Date Diagnosed Date Resolved Date Generalized anxiety disorder 08/03/2022 10/04/2022 Postoperative pain 07/28/2022 Immunosuppressed status 07/26/2022 082 09/2022 Current chronic use of systemic steroids 07/26/2022 10/04/2022 Atelectasis 07/23/2022 10/04/2022 Overview: 07/23/2022 Encourage PEP with deep breathing and cough. Hypophosphatemia 07/23/2022 10/04/2022 Overview: 07/23/2022 Replete phosphorus as needed. Streptococcus pneumoniae 07/23/2022 Obesity, Class I, BMI 30-34.9 07/22/2022 10/04/2022 On mechanically assisted ventilation 07/21/2022 07/22/2022 Overview: History: Postoperative. Assessment: Currently intubated and sedated. Grade 1 airway. Plan: WTE/Bronch AM 07/21 Hypotension, unspecified 07/21/2022 Overview: History: Postoperative. Assessment: Hypotensive requiring vasopressor for hemodynamic support. Plan: Titrate Levo infusion to maintain MAP goal 70-80. See care coordination note 07/23/2022 Vasopressin infusion weaned off overnight. Stress hyperglycemia 07/21/2022 023 Overview: History: no DM history Assessment: Perioperative insulin resistance and exacerbation of hyperglycemia. Plan: RHI infusion per CVICU nomogram to maintain BG <150 mg/dL. See care coordination note 07/23/2022 Transition to sliding scale insulin for blood glucose control. Acute post-operative pain 07/21/2022 Overview: History: Postoperative. Assessment: Currently intubated and sedated. Plan: IV push fentanyl until able to use CIRCULATION LIBRARIAN. Initiate scheduled Lidocaine patches and Tylenol. Consider oxycodone IR as needed for breakthrough pain after extubation. See care coordination note 07/23/2022 Continue bupivacaine/fentanyl PCEA for pain control. Emphysema due to alpha-1-ant itrypsin deficiency 07/20/2022 10/04/2022 Overview: History: hx of A1AT deficiency with home O2 3L with rest and 4L with activity, and 3L with sleep. Assessment:07/20/2022: Bilateral lung transplantation via Clamshell incision with assistance of [facility] (Central aortic 21 Fr cannula, 26 Fr Right femoral venous drainage cannula) , MELVIN and RUL Wedge resections Plan: IS per ALD Lung transplant candidate 07/20/2022 Lung transplant planned 07/17/202209/08 Chronic respiratory failure with hypoxia and hypercapnia 02/02/2022 10/04/2022 Overview: See care coordination note Heterozygous alpha 1-antitrypsin deficiency 07/30/2021 10/04/2022 Former smoker 04/10/2020 10/04/2022 Obesity 11/30/2017 10/04/2022 Stage 4 very severe COPD by GOLD classification 09/29/2017 10/04/2022 Overview: History: home O2 3L with rest and 4L with activity, and 3L with sleep. Assessment:07/20/2022: Bilateral lung transplantation via Clamshell incision with assistance of [facility] (Central aortic 21 Fr cannula, 26 Fr Right femoral venous drainage cannula) , MELVIN and RUL Wedge resections Plan: IS per ALD Bronchiectasis 09/29/2017 10/04/2022 Overview: See care coordination note Umbilical hernia 07/10/2012 10/04/2022 Pain in joint, ankle and foot 04/18/2012 10/04/2022 COPD (chronic obstructive pulmonary disease) 10/04/2022 Overview: See care coordination note Premature atrial contraction 07/22/2022 Overview: See care coordination note documented as of this encounter (statuses as of 11/30/2022) [facility] History of Past illness Narrative* Problem Noted Date Diagnosed Date Resolved Date Generalized anxiety disorder 08/03/2022 10/04/2022 Postoperative pain 07/28/2022 Immunosuppressed status 07/26/2022 0809/2022 Current chronic use of systemic steroids 07/26/2022 10/04/2022 Atelectasis 07/23/2022 10/04/2022 Overview: 07/23/2022 Encourage PEP with deep breathing and cough. Hypophosphatemia 07/23/2022 10/04/2022 Overview: 07/23/2022 Replete phosphorus as needed. Streptococcus pneumoniae 07/23/2022 Obesity, Class I, BMI 30-34.9 07/22/2022 10/04/2022 On mechanically assisted ventilation 07/21/2022 07/22/2022 Overview: History: Postoperative. Assessment: Currently intubated and sedated. Grade 1 airway. Plan: WTE/Bronch AM 07/21 Hypotension, unspecified 07/21/2022 Overview: History: Postoperative. Assessment: Hypotensive requiring vasopressor for hemodynamic support. Plan: Titrate Levo infusion to maintain MAP goal 70-80. See care coordination note 07/23/2022 Vasopressin infusion weaned off overnight. Stress hyperglycemia 07/21/2022 023 Overview: History: no DM history Assessment: Perioperative insulin resistance and exacerbation of hyperglycemia. Plan: RHI infusion per CVICU nomogram to maintain BG <150 mg/dL. See care coordination note 07/23/2022 Transition to sliding scale insulin for blood glucose control. Acute post-operative pain 07/21/2022 Overview: History: Postoperative. Assessment: Currently intubated and sedated. Plan: IV push fentanyl until able to use CIRCULATION LIBRARIAN. Initiate scheduled Lidocaine patches and Tylenol. Consider oxycodone IR as needed for breakthrough pain after extubation. See care coordination note 07/23/2022 Continue bupivacaine/fentanyl PCEA for pain control. Emphysema due to alpha-1-ant itrypsin deficiency 07/20/2022 10/04/2022 Overview: History: hx of A1AT deficiency with home O2 3L with rest and 4L with activity, and 3L with sleep. Assessment:07/20/2022: Bilateral lung transplantation via Clamshell incision with assistance of [facility] (Central aortic 21 Fr cannula, 26 Fr Right femoral venous drainage cannula) , MELVIN and RUL Wedge resections Plan: IS per ALD Lung transplant candidate 07/20/2022 Lung transplant planned 07/17/202209/08 Chronic respiratory failure with hypoxia and hypercapnia 02/02/2022 10/04/2022 Overview: See care coordination note Heterozygous alpha 1-antitrypsin deficiency 07/30/2021 10/04/2022 Former smoker 04/10/2020 10/04/2022 Obesity 11/30/2017 10/04/2022 Stage 4 very severe COPD by GOLD classification 09/29/2017 10/04/2022 Overview: History: home O2 3L with rest and 4L with activity, and 3L with sleep. Assessment:07/20/2022: Bilateral lung transplantation via Clamshell incision with assistance of [facility] (Central aortic 21 Fr cannula, 26 Fr Right femoral venous drainage cannula) , MELVIN and RUL Wedge resections Plan: IS per ALD Bronchiectasis 09/29/2017 10/04/2022 Overview: See care coordination note Umbilical hernia 07/10/2012 10/04/2022 Pain in joint, ankle and foot 04/18/2012 10/04/2022 COPD (chronic obstructive pulmonary disease) 10/04/2022 Overview: See care coordination note Premature atrial contraction 07/22/2022 Overview: See care coordination note documented as of this encounter (statuses as of 12/15/2022) [facility] History of Past illness Narrative* Problem Noted Date Diagnosed Date Resolved Date Generalized anxiety disorder 08/03/2022 10/04/2022 Postoperative pain 07/28/2022 Immunosuppressed status 07/26/2022 0809/2022 Current chronic use of systemic steroids 07/26/2022 10/04/2022 Atelectasis 07/23/2022 10/04/2022 Overview: 07/23/2022 Encourage PEP with deep breathing and cough. Hypophosphatemia 07/23/2022 10/04/2022 Overview: 07/23/2022 Replete phosphorus as needed. Streptococcus pneumoniae 07/23/2022 Obesity, Class I, BMI 30-34.9 07/22/2022 10/04/2022 On mechanically assisted ventilation 07/21/2022 07/22/2022 Overview: History: Postoperative. Assessment: Currently intubated and sedated. Grade 1 airway. Plan: WTE/Bronch AM 07/21 Hypotension, unspecified 07/21/2022 Overview: History: Postoperative. Assessment: Hypotensive requiring vasopressor for hemodynamic support. Plan: Titrate Levo infusion to maintain MAP goal 70-80. See care coordination note 07/23/2022 Vasopressin infusion weaned off overnight. Stress hyperglycemia 07/21/2022 023 Overview: History: no DM history Assessment: Perioperative insulin resistance and exacerbation of hyperglycemia. Plan: RHI infusion per CVICU nomogram to maintain BG <150 mg/dL. See care coordination note 07/23/2022 Transition to sliding scale insulin for blood glucose control. Acute post-operative pain 07/21/2022 Overview: History: Postoperative. Assessment: Currently intubated and sedated. Plan: IV push fentanyl until able to use CIRCULATION LIBRARIAN. Initiate scheduled Lidocaine patches and Tylenol. Consider oxycodone IR as needed for breakthrough pain after extubation. See care coordination note 07/23/2022 Continue bupivacaine/fentanyl PCEA for pain control. Emphysema due to alpha-1-ant itrypsin deficiency 07/20/2022 10/04/2022 Overview: History: hx of A1AT deficiency with home O2 3L with rest and 4L with activity, and 3L with sleep. Assessment:07/20/2022: Bilateral lung transplantation via Clamshell incision with assistance of [facility] (Central aortic 21 Fr cannula, 26 Fr Right femoral venous drainage cannula) , MELVIN and RUL Wedge resections Plan: IS per ALD Lung transplant candidate 07/20/2022 Lung transplant planned 07/17/202209/08 Chronic respiratory failure with hypoxia and hypercapnia 02/02/2022 10/04/2022 Overview: See care coordination note Heterozygous alpha 1-antitrypsin deficiency 07/30/2021 10/04/2022 Former smoker 04/10/2020 10/04/2022 Obesity 11/30/2017 10/04/2022 Stage 4 very severe COPD by GOLD classification 09/29/2017 10/04/2022 Overview: History: home O2 3L with rest and 4L with activity, and 3L with sleep. Assessment:07/20/2022: Bilateral lung transplantation via Clamshell incision with assistance of [facility] (Central aortic 21 Fr cannula, 26 Fr Right femoral venous drainage cannula) , MELVIN and RUL Wedge resections Plan: IS per ALD Bronchiectasis 09/29/2017 10/04/2022 Overview: See care coordination note Umbilical hernia 07/10/2012 10/04/2022 Pain in joint, ankle and foot 04/18/2012 10/04/2022 COPD (chronic obstructive pulmonary disease) 10/04/2022 Overview: See care coordination note Premature atrial contraction 07/22/2022 Overview: See care coordination note documented as of this encounter (statuses as of 12/20/2022) [facility] History of Past illness Narrative* Problem Noted Date Diagnosed Date Resolved Date Generalized anxiety disorder 08/03/2022 10/04/2022 Postoperative pain 07/28/2022 Immunosuppressed status 07/26/2022 082 09/2022 Current chronic use of systemic steroids 07/26/2022 10/04/2022 Atelectasis 07/23/2022 10/04/2022 Overview: 07/23/2022 Encourage PEP with deep breathing and cough. Hypophosphatemia 07/23/2022 10/04/2022 Overview: 07/23/2022 Replete phosphorus as needed. Streptococcus pneumoniae 07/23/2022 Obesity, Class I, BMI 30-34.9 07/22/2022 10/04/2022 On mechanically assisted ventilation 07/21/2022 07/22/2022 Overview: History: Postoperative. Assessment: Currently intubated and sedated. Grade 1 airway. Plan: WTE/Bronch AM 07/21 Hypotension, unspecified 07/21/2022 Overview: History: Postoperative. Assessment: Hypotensive requiring vasopressor for hemodynamic support. Plan: Titrate Levo infusion to maintain MAP goal 70-80. See care coordination note 07/23/2022 Vasopressin infusion weaned off overnight. Stress hyperglycemia 07/21/2022 023 Overview: History: no DM history Assessment: Perioperative insulin resistance and exacerbation of hyperglycemia. Plan: RHI infusion per CVICU nomogram to maintain BG <150 mg/dL. See care coordination note 07/23/2022 Transition to sliding scale insulin for blood glucose control. Acute post-operative pain 07/21/2022 Overview: History: Postoperative. Assessment: Currently intubated and sedated. Plan: IV push fentanyl until able to use CIRCULATION LIBRARIAN. Initiate scheduled Lidocaine patches and Tylenol. Consider oxycodone IR as needed for breakthrough pain after extubation. See care coordination note 07/23/2022 Continue bupivacaine/fentanyl PCEA for pain control. Emphysema due to alpha-1-ant itrypsin deficiency 07/20/2022 10/04/2022 Overview: History: hx of A1AT deficiency with home O2 3L with rest and 4L with activity, and 3L with sleep. Assessment:07/20/2022: Bilateral lung transplantation via Clamshell incision with assistance of [facility] (Central aortic 21 Fr cannula, 26 Fr Right femoral venous drainage cannula) , MELVIN and RUL Wedge resections Plan: IS per ALD Lung transplant candidate 07/20/2022 Lung transplant planned 07/17/202209/08 Chronic respiratory failure with hypoxia and hypercapnia 02/02/2022 10/04/2022 Overview: See care coordination note Heterozygous alpha 1-antitrypsin deficiency 07/30/2021 10/04/2022 Former smoker 04/10/2020 10/04/2022 Obesity 11/30/2017 10/04/2022 Stage 4 very severe COPD by GOLD classification 09/29/2017 10/04/2022 Overview: History: home O2 3L with rest and 4L with activity, and 3L with sleep. Assessment:07/20/2022: Bilateral lung transplantation via Clamshell incision with assistance of [facility] (Central aortic 21 Fr cannula, 26 Fr Right femoral venous drainage cannula) , MELVIN and RUL Wedge resections Plan: IS per ALD Bronchiectasis 09/29/2017 10/04/2022 Overview: See care coordination note Umbilical hernia 07/10/2012 10/04/2022 Pain in joint, ankle and foot 04/18/2012 10/04/2022 COPD (chronic obstructive pulmonary disease) 10/04/2022 Overview: See care coordination note Premature atrial contraction 07/22/2022 Overview: See care coordination note documented as of this encounter (statuses as of 12/29/2022) [facility] History of Past illness Narrative* Problem Noted Date Diagnosed Date Resolved Date Generalized anxiety disorder 08/03/2022 10/04/2022 Postoperative pain 07/28/2022 Immunosuppressed status 07/26/2022 0809/2022 Current chronic use of systemic steroids 07/26/2022 10/04/2022 Atelectasis 07/23/2022 10/04/2022 Overview: 07/23/2022 Encourage PEP with deep breathing and cough. Hypophosphatemia 07/23/2022 10/04/2022 Overview: 07/23/2022 Replete phosphorus as needed. Streptococcus pneumoniae 07/23/2022 Obesity, Class I, BMI 30-34.9 07/22/2022 10/04/2022 On mechanically assisted ventilation 07/21/2022 07/22/2022 Overview: History: Postoperative. Assessment: Currently intubated and sedated. Grade 1 airway. Plan: WTE/Bronch AM 07/21 Hypotension, unspecified 07/21/2022 Overview: History: Postoperative. Assessment: Hypotensive requiring vasopressor for hemodynamic support. Plan: Titrate Levo infusion to maintain MAP goal 70-80. See care coordination note 07/23/2022 Vasopressin infusion weaned off overnight. Stress hyperglycemia 07/21/2022 023 Overview: History: no DM history Assessment: Perioperative insulin resistance and exacerbation of hyperglycemia. Plan: RHI infusion per CVICU nomogram to maintain BG <150 mg/dL. See care coordination note 07/23/2022 Transition to sliding scale insulin for blood glucose control. Acute post-operative pain 07/21/2022 Overview: History: Postoperative. Assessment: Currently intubated and sedated. Plan: IV push fentanyl until able to use CIRCULATION LIBRARIAN. Initiate scheduled Lidocaine patches and Tylenol. Consider oxycodone IR as needed for breakthrough pain after extubation. See care coordination note 07/23/2022 Continue bupivacaine/fentanyl PCEA for pain control. Emphysema due to alpha-1-ant itrypsin deficiency 07/20/2022 10/04/2022 Overview: History: hx of A1AT deficiency with home O2 3L with rest and 4L with activity, and 3L with sleep. Assessment:07/20/2022: Bilateral lung transplantation via Clamshell incision with assistance of [facility] (Central aortic 21 Fr cannula, 26 Fr Right femoral venous drainage cannula) , MELVIN and RUL Wedge resections Plan: IS per ALD Lung transplant candidate 07/20/2022 Lung transplant planned 07/17/202209/08 Chronic respiratory failure with hypoxia and hypercapnia 02/02/2022 10/04/2022 Overview: See care coordination note Heterozygous alpha 1-antitrypsin deficiency 07/30/2021 10/04/2022 Former smoker 04/10/2020 10/04/2022 Obesity 11/30/2017 10/04/2022 Stage 4 very severe COPD by GOLD classification 09/29/2017 10/04/2022 Overview: History: home O2 3L with rest and 4L with activity, and 3L with sleep. Assessment:07/20/2022: Bilateral lung transplantation via Clamshell incision with assistance of [facility] (Central aortic 21 Fr cannula, 26 Fr Right femoral venous drainage cannula) , MELVIN and RUL Wedge resections Plan: IS per ALD Bronchiectasis 09/29/2017 10/04/2022 Overview: See care coordination note Umbilical hernia 07/10/2012 10/04/2022 Pain in joint, ankle and foot 04/18/2012 10/04/2022 COPD (chronic obstructive pulmonary disease) 10/04/2022 Overview: See care coordination note Premature atrial contraction 07/22/2022 Overview: See care coordination note documented as of this encounter (statuses as of 12/29/2022) [facility] History of Past illness Narrative* Problem Noted Date Diagnosed Date Resolved Date Generalized anxiety disorder 08/03/2022 10/04/2022 Postoperative pain 07/28/2022 Immunosuppressed status 07/26/202209/08 Current chronic use of systemic steroids 07/26/2022 10/04/2022 Atelectasis 07/23/2022 10/04/2022 Overview: 07/23/2022 Encourage PEP with deep breathing and cough. Hypophosphatemia 07/23/2022 10/04/2022 Overview: 07/23/2022 Replete phosphorus as needed. Streptococcus pneumoniae 07/23/2022 Obesity, Class I, BMI 30-34.9 07/22/2022 10/04/2022 On mechanically assisted ventilation 07/21/2022 07/22/2022 Overview: History: Postoperative. Assessment: Currently intubated and sedated. Grade 1 airway. Plan: WTE/Bronch AM 07/21 Hypotension, unspecified 07/21/2022 Overview: History: Postoperative. Assessment: Hypotensive requiring vasopressor for hemodynamic support. Plan: Titrate Levo infusion to maintain MAP goal 70-80. See care coordination note 07/23/2022 Vasopressin infusion weaned off overnight. Stress hyperglycemia 07/21/2022 023 Overview: History: no DM history Assessment: Perioperative insulin resistance and exacerbation of hyperglycemia. Plan: RHI infusion per CVICU nomogram to maintain BG <150 mg/dL. See care coordination note 07/23/2022 Transition to sliding scale insulin for blood glucose control. Acute post-operative pain 07/21/2022 Overview: History: Postoperative. Assessment: Currently intubated and sedated. Plan: IV push fentanyl until able to use CIRCULATION LIBRARIAN. Initiate scheduled Lidocaine patches and Tylenol. Consider oxycodone IR as needed for breakthrough pain after extubation. See care coordination note 07/23/2022 Continue bupivacaine/fentanyl PCEA for pain control. Emphysema due to alpha-1-ant itrypsin deficiency 07/20/2022 10/04/2022 Overview: History: hx of A1AT deficiency with home O2 3L with rest and 4L with activity, and 3L with sleep. Assessment:07/20/2022: Bilateral lung transplantation via Clamshell incision with assistance of [facility] (Central aortic 21 Fr cannula, 26 Fr Right femoral venous drainage cannula) , MELVIN and RUL Wedge resections Plan: IS per ALD Lung transplant candidate 07/20/2022 Lung transplant planned 07/17/202209/08 Chronic respiratory failure with hypoxia and hypercapnia 02/02/2022 10/04/2022 Overview: See care coordination note Heterozygous alpha 1-antitrypsin deficiency 07/30/2021 10/04/2022 Former smoker 04/10/2020 10/04/2022 Obesity 11/30/2017 10/04/2022 Stage 4 very severe COPD by GOLD classification 09/29/2017 10/04/2022 Overview: History: home O2 3L with rest and 4L with activity, and 3L with sleep. Assessment:07/20/2022: Bilateral lung transplantation via Clamshell incision with assistance of [facility] (Central aortic 21 Fr cannula, 26 Fr Right femoral venous drainage cannula) , MELVIN and RUL Wedge resections Plan: IS per ALD Bronchiectasis 09/29/2017 10/04/2022 Overview: See care coordination note Umbilical hernia 07/10/2012 10/04/2022 Pain in joint, ankle and foot 04/18/2012 10/04/2022 COPD (chronic obstructive pulmonary disease) 10/04/2022 Overview: See care coordination note Premature atrial contraction 07/22/2022 Overview: See care coordination note documented as of this encounter (statuses as of 01/12/2023) [facility] History of Past illness Narrative* Problem Noted Date Diagnosed Date Resolved Date Generalized anxiety disorder 08/03/2022 10/04/2022 Postoperative pain 07/28/2022 Immunosuppressed status 07/26/202209/08 Current chronic use of systemic steroids 07/26/2022 10/04/2022 Atelectasis 07/23/2022 10/04/2022 Overview: 07/23/2022 Encourage PEP with deep breathing and cough. Hypophosphatemia 07/23/2022 10/04/2022 Overview: 07/23/2022 Replete phosphorus as needed. Streptococcus pneumoniae 07/23/2022 Obesity, Class I, BMI 30-34.9 07/22/2022 10/04/2022 On mechanically assisted ventilation 07/21/2022 07/22/2022 Overview: History: Postoperative. Assessment: Currently intubated and sedated. Grade 1 airway. Plan: WTE/Bronch AM 07/21 Hypotension, unspecified 07/21/2022 Overview: History: Postoperative. Assessment: Hypotensive requiring vasopressor for hemodynamic support. Plan: Titrate Levo infusion to maintain MAP goal 70-80. See care coordination note 07/23/2022 Vasopressin infusion weaned off overnight. Stress hyperglycemia 07/21/2022 023 Overview: History: no DM history Assessment: Perioperative insulin resistance and exacerbation of hyperglycemia. Plan: RHI infusion per CVICU nomogram to maintain BG <150 mg/dL. See care coordination note 07/23/2022 Transition to sliding scale insulin for blood glucose control. Acute post-operative pain 07/21/2022 Overview: History: Postoperative. Assessment: Currently intubated and sedated. Plan: IV push fentanyl until able to use CIRCULATION LIBRARIAN. Initiate scheduled Lidocaine patches and Tylenol. Consider oxycodone IR as needed for breakthrough pain after extubation. See care coordination note 07/23/2022 Continue bupivacaine/fentanyl PCEA for pain control. Emphysema due to alpha-1-ant itrypsin deficiency 07/20/2022 10/04/2022 Overview: History: hx of A1AT deficiency with home O2 3L with rest and 4L with activity, and 3L with sleep. Assessment:07/20/2022: Bilateral lung transplantation via Clamshell incision with assistance of [facility] (Central aortic 21 Fr cannula, 26 Fr Right femoral venous drainage cannula) , MELVIN and RUL Wedge resections Plan: IS per ALD Lung transplant candidate 07/20/2022 Lung transplant planned 07/17/202209/08 Chronic respiratory failure with hypoxia and hypercapnia 02/02/2022 10/04/2022 Overview: See care coordination note Heterozygous alpha 1-antitrypsin deficiency 07/30/2021 10/04/2022 Former smoker 04/10/2020 10/04/2022 Obesity 11/30/2017 10/04/2022 Stage 4 very severe COPD by GOLD classification 09/29/2017 10/04/2022 Overview: History: home O2 3L with rest and 4L with activity, and 3L with sleep. Assessment:07/20/2022: Bilateral lung transplantation via Clamshell incision with assistance of [facility] (Central aortic 21 Fr cannula, 26 Fr Right femoral venous drainage cannula) , MELVIN and RUL Wedge resections Plan: IS per ALD Bronchiectasis 09/29/2017 10/04/2022 Overview: See care coordination note Umbilical hernia 07/10/2012 10/04/2022 Pain in joint, ankle and foot 04/18/2012 10/04/2022 COPD (chronic obstructive pulmonary disease) 10/04/2022 Overview: See care coordination note Premature atrial contraction 07/22/2022 Overview: See care coordination note documented as of this encounter (statuses as of 01/14/2023) [facility] History of Past illness Narrative* Problem Noted Date Diagnosed Date Resolved Date Generalized anxiety disorder 08/03/2022 10/04/2022 Postoperative pain 07/28/2022 Immunosuppressed status 07/26/2022 0809/2022 Current chronic use of systemic steroids 07/26/2022 10/04/2022 Atelectasis 07/23/2022 10/04/2022 Overview: 07/23/2022 Encourage PEP with deep breathing and cough. Hypophosphatemia 07/23/2022 10/04/2022 Overview: 07/23/2022 Replete phosphorus as needed. Streptococcus pneumoniae 07/23/2022 Obesity, Class I, BMI 30-34.9 07/22/2022 10/04/2022 On mechanically assisted ventilation 07/21/2022 07/22/2022 Overview: History: Postoperative. Assessment: Currently intubated and sedated. Grade 1 airway. Plan: WTE/Bronch AM 07/21 Hypotension, unspecified 07/21/2022 Overview: History: Postoperative. Assessment: Hypotensive requiring vasopressor for hemodynamic support. Plan: Titrate Levo infusion to maintain MAP goal 70-80. See care coordination note 07/23/2022 Vasopressin infusion weaned off overnight. Stress hyperglycemia 07/21/2022 023 Overview: History: no DM history Assessment: Perioperative insulin resistance and exacerbation of hyperglycemia. Plan: RHI infusion per CVICU nomogram to maintain BG <150 mg/dL. See care coordination note 07/23/2022 Transition to sliding scale insulin for blood glucose control. Acute post-operative pain 07/21/2022 Overview: History: Postoperative. Assessment: Currently intubated and sedated. Plan: IV push fentanyl until able to use CIRCULATION LIBRARIAN. Initiate scheduled Lidocaine patches and Tylenol. Consider oxycodone IR as needed for breakthrough pain after extubation. See care coordination note 07/23/2022 Continue bupivacaine/fentanyl PCEA for pain control. Emphysema due to alpha-1-ant itrypsin deficiency 07/20/2022 10/04/2022 Overview: History: hx of A1AT deficiency with home O2 3L with rest and 4L with activity, and 3L with sleep. Assessment:07/20/2022: Bilateral lung transplantation via Clamshell incision with assistance of [facility] (Central aortic 21 Fr cannula, 26 Fr Right femoral venous drainage cannula) , MELVIN and RUL Wedge resections Plan: IS per ALD Lung transplant candidate 07/20/2022 Lung transplant planned 07/17/202209/08 Chronic respiratory failure with hypoxia and hypercapnia 02/02/2022 10/04/2022 Overview: See care coordination note Heterozygous alpha 1-antitrypsin deficiency 07/30/2021 10/04/2022 Former smoker 04/10/2020 10/04/2022 Obesity 11/30/2017 10/04/2022 Stage 4 very severe COPD by GOLD classification 09/29/2017 10/04/2022 Overview: History: home O2 3L with rest and 4L with activity, and 3L with sleep. Assessment:07/20/2022: Bilateral lung transplantation via Clamshell incision with assistance of [facility] (Central aortic 21 Fr cannula, 26 Fr Right femoral venous drainage cannula) , MELVIN and RUL Wedge resections Plan: IS per ALD Bronchiectasis 09/29/2017 10/04/2022 Overview: See care coordination note Umbilical hernia 07/10/2012 10/04/2022 Pain in joint, ankle and foot 04/18/2012 10/04/2022 COPD (chronic obstructive pulmonary disease) 10/04/2022 Overview: See care coordination note Premature atrial contraction 07/22/2022 Overview: See care coordination note documented as of this encounter (statuses as of 01/19/2023) [facility] History of Past illness Narrative* Problem Noted Date Diagnosed Date Resolved Date Generalized anxiety disorder 08/03/2022 10/04/2022 Postoperative pain 07/28/2022 Immunosuppressed status 07/26/2022 0809/2022 Current chronic use of systemic steroids 07/26/2022 10/04/2022 Atelectasis 07/23/2022 10/04/2022 Overview: 07/23/2022 Encourage PEP with deep breathing and cough. Hypophosphatemia 07/23/2022 10/04/2022 Overview: 07/23/2022 Replete phosphorus as needed. Streptococcus pneumoniae 07/23/2022 Obesity, Class I, BMI 30-34.9 07/22/2022 10/04/2022 On mechanically assisted ventilation 07/21/2022 07/22/2022 Overview: History: Postoperative. Assessment: Currently intubated and sedated. Grade 1 airway. Plan: WTE/Bronch AM 07/21 Hypotension, unspecified 07/21/2022 Overview: History: Postoperative. Assessment: Hypotensive requiring vasopressor for hemodynamic support. Plan: Titrate Levo infusion to maintain MAP goal 70-80. See care coordination note 07/23/2022 Vasopressin infusion weaned off overnight. Stress hyperglycemia 07/21/2022 023 Overview: History: no DM history Assessment: Perioperative insulin resistance and exacerbation of hyperglycemia. Plan: RHI infusion per CVICU nomogram to maintain BG <150 mg/dL. See care coordination note 07/23/2022 Transition to sliding scale insulin for blood glucose control. Acute post-operative pain 07/21/2022 Overview: History: Postoperative. Assessment: Currently intubated and sedated. Plan: IV push fentanyl until able to use CIRCULATION LIBRARIAN. Initiate scheduled Lidocaine patches and Tylenol. Consider oxycodone IR as needed for breakthrough pain after extubation. See care coordination note 07/23/2022 Continue bupivacaine/fentanyl PCEA for pain control. Emphysema due to alpha-1-ant itrypsin deficiency 07/20/2022 10/04/2022 Overview: History: hx of A1AT deficiency with home O2 3L with rest and 4L with activity, and 3L with sleep. Assessment:07/20/2022: Bilateral lung transplantation via Clamshell incision with assistance of [facility] (Central aortic 21 Fr cannula, 26 Fr Right femoral venous drainage cannula) , MELVIN and RUL Wedge resections Plan: IS per ALD Lung transplant candidate 07/20/2022 Lung transplant planned 07/17/202209/08 Chronic respiratory failure with hypoxia and hypercapnia 02/02/2022 10/04/2022 Overview: See care coordination note Heterozygous alpha 1-antitrypsin deficiency 07/30/2021 10/04/2022 Former smoker 04/10/2020 10/04/2022 Obesity 11/30/2017 10/04/2022 Stage 4 very severe COPD by GOLD classification 09/29/2017 10/04/2022 Overview: History: home O2 3L with rest and 4L with activity, and 3L with sleep. Assessment:07/20/2022: Bilateral lung transplantation via Clamshell incision with assistance of [facility] (Central aortic 21 Fr cannula, 26 Fr Right femoral venous drainage cannula) , MELVIN and RUL Wedge resections Plan: IS per ALD Bronchiectasis 09/29/2017 10/04/2022 Overview: See care coordination note Umbilical hernia 07/10/2012 10/04/2022 Pain in joint, ankle and foot 04/18/2012 10/04/2022 COPD (chronic obstructive pulmonary disease) 10/04/2022 Overview: See care coordination note Premature atrial contraction 07/22/2022 Overview: See care coordination note documented as of this encounter (statuses as of 01/19/2023) [facility] History of Past illness Narrative* Problem Noted Date Diagnosed Date Resolved Date Generalized anxiety disorder 08/03/2022 10/04/2022 Postoperative pain 07/28/2022 Immunosuppressed status 07/26/2022 0809/2022 Current chronic use of systemic steroids 07/26/2022 10/04/2022 Atelectasis 07/23/2022 10/04/2022 Overview: 07/23/2022 Encourage PEP with deep breathing and cough. Hypophosphatemia 07/23/2022 10/04/2022 Overview: 07/23/2022 Replete phosphorus as needed. Streptococcus pneumoniae 07/23/2022 Obesity, Class I, BMI 30-34.9 07/22/2022 10/04/2022 On mechanically assisted ventilation 07/21/2022 07/22/2022 Overview: History: Postoperative. Assessment: Currently intubated and sedated. Grade 1 airway. Plan: WTE/Bronch AM 07/21 Hypotension, unspecified 07/21/2022 Overview: History: Postoperative. Assessment: Hypotensive requiring vasopressor for hemodynamic support. Plan: Titrate Levo infusion to maintain MAP goal 70-80. See care coordination note 07/23/2022 Vasopressin infusion weaned off overnight. Stress hyperglycemia 07/21/2022 023 Overview: History: no DM history Assessment: Perioperative insulin resistance and exacerbation of hyperglycemia. Plan: RHI infusion per CVICU nomogram to maintain BG <150 mg/dL. See care coordination note 07/23/2022 Transition to sliding scale insulin for blood glucose control. Acute post-operative pain 07/21/2022 Overview: History: Postoperative. Assessment: Currently intubated and sedated. Plan: IV push fentanyl until able to use CIRCULATION LIBRARIAN. Initiate scheduled Lidocaine patches and Tylenol. Consider oxycodone IR as needed for breakthrough pain after extubation. See care coordination note 07/23/2022 Continue bupivacaine/fentanyl PCEA for pain control. Emphysema due to alpha-1-ant itrypsin deficiency 07/20/2022 10/04/2022 Overview: History: hx of A1AT deficiency with home O2 3L with rest and 4L with activity, and 3L with sleep. Assessment:07/20/2022: Bilateral lung transplantation via Clamshell incision with assistance of [facility] (Central aortic 21 Fr cannula, 26 Fr Right femoral venous drainage cannula) , MELVIN and RUL Wedge resections Plan: IS per ALD Lung transplant candidate 07/20/2022 Lung transplant planned 07/17/202209/08 Chronic respiratory failure with hypoxia and hypercapnia 02/02/2022 10/04/2022 Overview: See care coordination note Heterozygous alpha 1-antitrypsin deficiency 07/30/2021 10/04/2022 Former smoker 04/10/2020 10/04/2022 Obesity 11/30/2017 10/04/2022 Stage 4 very severe COPD by GOLD classification 09/29/2017 10/04/2022 Overview: History: home O2 3L with rest and 4L with activity, and 3L with sleep. Assessment:07/20/2022: Bilateral lung transplantation via Clamshell incision with assistance of [facility] (Central aortic 21 Fr cannula, 26 Fr Right femoral venous drainage cannula) , MELVIN and RUL Wedge resections Plan: IS per ALD Bronchiectasis 09/29/2017 10/04/2022 Overview: See care coordination note Umbilical hernia 07/10/2012 10/04/2022 Pain in joint, ankle and foot 04/18/2012 10/04/2022 COPD (chronic obstructive pulmonary disease) 10/04/2022 Overview: See care coordination note Premature atrial contraction 07/22/2022 Overview: See care coordination note documented as of this encounter (statuses as of 03/16/2023) [facility] History of Past illness Narrative* Problem Noted Date Diagnosed Date Resolved Date Generalized anxiety disorder 08/03/2022 10/04/2022 Postoperative pain 07/28/2022 Immunosuppressed status 07/26/202209/08 Current chronic use of systemic steroids 07/26/2022 10/04/2022 Atelectasis 07/23/2022 10/04/2022 Overview: 07/23/2022 Encourage PEP with deep breathing and cough. Hypophosphatemia 07/23/2022 10/04/2022 Overview: 07/23/2022 Replete phosphorus as needed. Streptococcus pneumoniae 07/23/2022 Obesity, Class I, BMI 30-34.9 07/22/2022 10/04/2022 On mechanically assisted ventilation 07/21/2022 07/22/2022 Overview: History: Postoperative. Assessment: Currently intubated and sedated. Grade 1 airway. Plan: WTE/Bronch AM 07/21 Hypotension, unspecified 07/21/2022 Overview: History: Postoperative. Assessment: Hypotensive requiring vasopressor for hemodynamic support. Plan: Titrate Levo infusion to maintain MAP goal 70-80. See care coordination note 07/23/2022 Vasopressin infusion weaned off overnight. Stress hyperglycemia 07/21/2022 023 Overview: History: no DM history Assessment: Perioperative insulin resistance and exacerbation of hyperglycemia. Plan: RHI infusion per CVICU nomogram to maintain BG <150 mg/dL. See care coordination note 07/23/2022 Transition to sliding scale insulin for blood glucose control. Acute post-operative pain 07/21/2022 Overview: History: Postoperative. Assessment: Currently intubated and sedated. Plan: IV push fentanyl until able to use CIRCULATION LIBRARIAN. Initiate scheduled Lidocaine patches and Tylenol. Consider oxycodone IR as needed for breakthrough pain after extubation. See care coordination note 07/23/2022 Continue bupivacaine/fentanyl PCEA for pain control. Emphysema due to alpha-1-ant itrypsin deficiency 07/20/2022 10/04/2022 Overview: History: hx of A1AT deficiency with home O2 3L with rest and 4L with activity, and 3L with sleep. Assessment:07/20/2022: Bilateral lung transplantation via Clamshell incision with assistance of [facility] (Central aortic 21 Fr cannula, 26 Fr Right femoral venous drainage cannula) , MELVIN and RUL Wedge resections Plan: IS per ALD Lung transplant candidate 07/20/2022 Lung transplant planned 07/17/202209/08 Chronic respiratory failure with hypoxia and hypercapnia 02/02/2022 10/04/2022 Overview: See care coordination note Heterozygous alpha 1-antitrypsin deficiency 07/30/2021 10/04/2022 Former smoker 04/10/2020 10/04/2022 Obesity 11/30/2017 10/04/2022 Stage 4 very severe COPD by GOLD classification 09/29/2017 10/04/2022 Overview: History: home O2 3L with rest and 4L with activity, and 3L with sleep. Assessment:07/20/2022: Bilateral lung transplantation via Clamshell incision with assistance of [facility] (Central aortic 21 Fr cannula, 26 Fr Right femoral venous drainage cannula) , MELVIN and RUL Wedge resections Plan: IS per ALD Bronchiectasis 09/29/2017 10/04/2022 Overview: See care coordination note Umbilical hernia 07/10/2012 10/04/2022 Pain in joint, ankle and foot 04/18/2012 10/04/2022 COPD (chronic obstructive pulmonary disease) 10/04/2022 Overview: See care coordination note Premature atrial contraction 07/22/2022 Overview: See care coordination note documented as of this encounter (statuses as of 03/23/2023) [facility] History of Past illness Narrative* Problem Noted Date Diagnosed Date Resolved Date Generalized anxiety disorder 08/03/2022 10/04/2022 Postoperative pain 07/28/2022 Immunosuppressed status 07/26/202209/08 Current chronic use of systemic steroids 07/26/2022 10/04/2022 Atelectasis 07/23/2022 10/04/2022 Overview: 07/23/2022 Encourage PEP with deep breathing and cough. Hypophosphatemia 07/23/2022 10/04/2022 Overview: 07/23/2022 Replete phosphorus as needed. Streptococcus pneumoniae 07/23/2022 Obesity, Class I, BMI 30-34.9 07/22/2022 10/04/2022 On mechanically assisted ventilation 07/21/2022 07/22/2022 Overview: History: Postoperative. Assessment: Currently intubated and sedated. Grade 1 airway. Plan: WTE/Bronch AM 07/21 Hypotension, unspecified 07/21/2022 Overview: History: Postoperative. Assessment: Hypotensive requiring vasopressor for hemodynamic support. Plan: Titrate Levo infusion to maintain MAP goal 70-80. See care coordination note 07/23/2022 Vasopressin infusion weaned off overnight. Stress hyperglycemia 07/21/2022 023 Overview: History: no DM history Assessment: Perioperative insulin resistance and exacerbation of hyperglycemia. Plan: RHI infusion per CVICU nomogram to maintain BG <150 mg/dL. See care coordination note 07/23/2022 Transition to sliding scale insulin for blood glucose control. Acute post-operative pain 07/21/2022 Overview: History: Postoperative. Assessment: Currently intubated and sedated. Plan: IV push fentanyl until able to use CIRCULATION LIBRARIAN. Initiate scheduled Lidocaine patches and Tylenol. Consider oxycodone IR as needed for breakthrough pain after extubation. See care coordination note 07/23/2022 Continue bupivacaine/fentanyl PCEA for pain control. Emphysema due to alpha-1-ant itrypsin deficiency 07/20/2022 10/04/2022 Overview: History: hx of A1AT deficiency with home O2 3L with rest and 4L with activity, and 3L with sleep. Assessment:07/20/2022: Bilateral lung transplantation via Clamshell incision with assistance of [facility] (Central aortic 21 Fr cannula, 26 Fr Right femoral venous drainage cannula) , MELVIN and RUL Wedge resections Plan: IS per ALD Lung transplant candidate 07/20/2022 Lung transplant planned 07/17/202209/08 Chronic respiratory failure with hypoxia and hypercapnia 02/02/2022 10/04/2022 Overview: See care coordination note Heterozygous alpha 1-antitrypsin deficiency 07/30/2021 10/04/2022 Former smoker 04/10/2020 10/04/2022 Obesity 11/30/2017 10/04/2022 Stage 4 very severe COPD by GOLD classification 09/29/2017 10/04/2022 Overview: History: home O2 3L with rest and 4L with activity, and 3L with sleep. Assessment:07/20/2022: Bilateral lung transplantation via Clamshell incision with assistance of [facility] (Central aortic 21 Fr cannula, 26 Fr Right femoral venous drainage cannula) , MELVIN and RUL Wedge resections Plan: IS per ALD Bronchiectasis 09/29/2017 10/04/2022 Overview: See care coordination note Umbilical hernia 07/10/2012 10/04/2022 Pain in joint, ankle and foot 04/18/2012 10/04/2022 COPD (chronic obstructive pulmonary disease) 10/04/2022 Overview: See care coordination note Premature atrial contraction 07/22/2022 Overview: See care coordination note documented as of this encounter (statuses as of 03/25/2023) [facility] History of Past illness Narrative* Problem Noted Date Diagnosed Date Resolved Date Generalized anxiety disorder 08/03/2022 10/04/2022 Postoperative pain 07/28/2022 Immunosuppressed status 07/26/202209/08 Current chronic use of systemic steroids 07/26/2022 10/04/2022 Atelectasis 07/23/2022 10/04/2022 Overview: 07/23/2022 Encourage PEP with deep breathing and cough. Hypophosphatemia 07/23/2022 10/04/2022 Overview: 07/23/2022 Replete phosphorus as needed. Streptococcus pneumoniae 07/23/2022 Obesity, Class I, BMI 30-34.9 07/22/2022 10/04/2022 On mechanically assisted ventilation 07/21/2022 07/22/2022 Overview: History: Postoperative. Assessment: Currently intubated and sedated. Grade 1 airway. Plan: WTE/Bronch AM 07/21 Hypotension, unspecified 07/21/2022 Overview: History: Postoperative. Assessment: Hypotensive requiring vasopressor for hemodynamic support. Plan: Titrate Levo infusion to maintain MAP goal 70-80. See care coordination note 07/23/2022 Vasopressin infusion weaned off overnight. Stress hyperglycemia 07/21/2022 023 Overview: History: no DM history Assessment: Perioperative insulin resistance and exacerbation of hyperglycemia. Plan: RHI infusion per CVICU nomogram to maintain BG <150 mg/dL. See care coordination note 07/23/2022 Transition to sliding scale insulin for blood glucose control. Acute post-operative pain 07/21/2022 Overview: History: Postoperative. Assessment: Currently intubated and sedated. Plan: IV push fentanyl until able to use CIRCULATION LIBRARIAN. Initiate scheduled Lidocaine patches and Tylenol. Consider oxycodone IR as needed for breakthrough pain after extubation. See care coordination note 07/23/2022 Continue bupivacaine/fentanyl PCEA for pain control. Emphysema due to alpha-1-ant itrypsin deficiency 07/20/2022 10/04/2022 Overview: History: hx of A1AT deficiency with home O2 3L with rest and 4L with activity, and 3L with sleep. Assessment:07/20/2022: Bilateral lung transplantation via Clamshell incision with assistance of [facility] (Central aortic 21 Fr cannula, 26 Fr Right femoral venous drainage cannula) , MELVIN and RUL Wedge resections Plan: IS per ALD Lung transplant candidate 07/20/2022 Lung transplant planned 07/17/202209/08 Chronic respiratory failure with hypoxia and hypercapnia 02/02/2022 10/04/2022 Overview: See care coordination note Heterozygous alpha 1-antitrypsin deficiency 07/30/2021 10/04/2022 Former smoker 04/10/2020 10/04/2022 Obesity 11/30/2017 10/04/2022 Stage 4 very severe COPD by GOLD classification 09/29/2017 10/04/2022 Overview: History: home O2 3L with rest and 4L with activity, and 3L with sleep. Assessment:07/20/2022: Bilateral lung transplantation via Clamshell incision with assistance of [facility] (Central aortic 21 Fr cannula, 26 Fr Right femoral venous drainage cannula) , MELVIN and RUL Wedge resections Plan: IS per ALD Bronchiectasis 09/29/2017 10/04/2022 Overview: See care coordination note Umbilical hernia 07/10/2012 10/04/2022 Pain in joint, ankle and foot 04/18/2012 10/04/2022 COPD (chronic obstructive pulmonary disease) 10/04/2022 Overview: See care coordination note Premature atrial contraction 07/22/2022 Overview: See care coordination note documented as of this encounter (statuses as of 03/27/2023) [facility] History of Past illness Narrative* Problem Noted Date Diagnosed Date Resolved Date Generalized anxiety disorder 08/03/2022 10/04/2022 Postoperative pain 07/28/2022 Immunosuppressed status 07/26/202209/08 Current chronic use of systemic steroids 07/26/2022 10/04/2022 Atelectasis 07/23/2022 10/04/2022 Overview: 07/23/2022 Encourage PEP with deep breathing and cough. Hypophosphatemia 07/23/2022 10/04/2022 Overview: 07/23/2022 Replete phosphorus as needed. Streptococcus pneumoniae 07/23/2022 Obesity, Class I, BMI 30-34.9 07/22/2022 10/04/2022 On mechanically assisted ventilation 07/21/2022 07/22/2022 Overview: History: Postoperative. Assessment: Currently intubated and sedated. Grade 1 airway. Plan: WTE/Bronch AM 07/21 Hypotension, unspecified 07/21/2022 Overview: History: Postoperative. Assessment: Hypotensive requiring vasopressor for hemodynamic support. Plan: Titrate Levo infusion to maintain MAP goal 70-80. See care coordination note 07/23/2022 Vasopressin infusion weaned off overnight. Stress hyperglycemia 07/21/2022 023 Overview: History: no DM history Assessment: Perioperative insulin resistance and exacerbation of hyperglycemia. Plan: RHI infusion per CVICU nomogram to maintain BG <150 mg/dL. See care coordination note 07/23/2022 Transition to sliding scale insulin for blood glucose control. Acute post-operative pain 07/21/2022 Overview: History: Postoperative. Assessment: Currently intubated and sedated. Plan: IV push fentanyl until able to use CIRCULATION LIBRARIAN. Initiate scheduled Lidocaine patches and Tylenol. Consider oxycodone IR as needed for breakthrough pain after extubation. See care coordination note 07/23/2022 Continue bupivacaine/fentanyl PCEA for pain control. Emphysema due to alpha-1-ant itrypsin deficiency 07/20/2022 10/04/2022 Overview: History: hx of A1AT deficiency with home O2 3L with rest and 4L with activity, and 3L with sleep. Assessment:07/20/2022: Bilateral lung transplantation via Clamshell incision with assistance of [facility] (Central aortic 21 Fr cannula, 26 Fr Right femoral venous drainage cannula) , MELVIN and RUL Wedge resections Plan: IS per ALD Lung transplant candidate 07/20/2022 Lung transplant planned 07/17/202209/08 Chronic respiratory failure with hypoxia and hypercapnia 02/02/2022 10/04/2022 Overview: See care coordination note Heterozygous alpha 1-antitrypsin deficiency 07/30/2021 10/04/2022 Former smoker 04/10/2020 10/04/2022 Obesity 11/30/2017 10/04/2022 Stage 4 very severe COPD by GOLD classification 09/29/2017 10/04/2022 Overview: History: home O2 3L with rest and 4L with activity, and 3L with sleep. Assessment:07/20/2022: Bilateral lung transplantation via Clamshell incision with assistance of [facility] (Central aortic 21 Fr cannula, 26 Fr Right femoral venous drainage cannula) , MELVIN and RUL Wedge resections Plan: IS per ALD Bronchiectasis 09/29/2017 10/04/2022 Overview: See care coordination note Umbilical hernia 07/10/2012 10/04/2022 Pain in joint, ankle and foot 04/18/2012 10/04/2022 COPD (chronic obstructive pulmonary disease) 10/04/2022 Overview: See care coordination note Premature atrial contraction 07/22/2022 Overview: See care coordination note documented as of this encounter (statuses as of 03/28/2023) [facility] History of Past illness Narrative* Problem Noted Date Diagnosed Date Resolved Date Generalized anxiety disorder 08/03/2022 10/04/2022 Postoperative pain 07/28/2022 Immunosuppressed status 07/26/202209/08 Current chronic use of systemic steroids 07/26/2022 10/04/2022 Atelectasis 07/23/2022 10/04/2022 Overview: 07/23/2022 Encourage PEP with deep breathing and cough. Hypophosphatemia 07/23/2022 10/04/2022 Overview: 07/23/2022 Replete phosphorus as needed. Streptococcus pneumoniae 07/23/2022 Obesity, Class I, BMI 30-34.9 07/22/2022 10/04/2022 On mechanically assisted ventilation 07/21/2022 07/22/2022 Overview: History: Postoperative. Assessment: Currently intubated and sedated. Grade 1 airway. Plan: WTE/Bronch AM 07/21 Hypotension, unspecified 07/21/2022 Overview: History: Postoperative. Assessment: Hypotensive requiring vasopressor for hemodynamic support. Plan: Titrate Levo infusion to maintain MAP goal 70-80. See care coordination note 07/23/2022 Vasopressin infusion weaned off overnight. Stress hyperglycemia 07/21/2022 023 Overview: History: no DM history Assessment: Perioperative insulin resistance and exacerbation of hyperglycemia. Plan: RHI infusion per CVICU nomogram to maintain BG <150 mg/dL. See care coordination note 07/23/2022 Transition to sliding scale insulin for blood glucose control. Acute post-operative pain 07/21/2022 Overview: History: Postoperative. Assessment: Currently intubated and sedated. Plan: IV push fentanyl until able to use CIRCULATION LIBRARIAN. Initiate scheduled Lidocaine patches and Tylenol. Consider oxycodone IR as needed for breakthrough pain after extubation. See care coordination note 07/23/2022 Continue bupivacaine/fentanyl PCEA for pain control. Emphysema due to alpha-1-ant itrypsin deficiency 07/20/2022 10/04/2022 Overview: History: hx of A1AT deficiency with home O2 3L with rest and 4L with activity, and 3L with sleep. Assessment:07/20/2022: Bilateral lung transplantation via Clamshell incision with assistance of [facility] (Central aortic 21 Fr cannula, 26 Fr Right femoral venous drainage cannula) , MELVIN and RUL Wedge resections Plan: IS per ALD Lung transplant candidate 07/20/2022 Lung transplant planned 07/17/202209/08 Chronic respiratory failure with hypoxia and hypercapnia 02/02/2022 10/04/2022 Overview: See care coordination note Heterozygous alpha 1-antitrypsin deficiency 07/30/2021 10/04/2022 Former smoker 04/10/2020 10/04/2022 Obesity 11/30/2017 10/04/2022 Stage 4 very severe COPD by GOLD classification 09/29/2017 10/04/2022 Overview: History: home O2 3L with rest and 4L with activity, and 3L with sleep. Assessment:07/20/2022: Bilateral lung transplantation via Clamshell incision with assistance of [facility] (Central aortic 21 Fr cannula, 26 Fr Right femoral venous drainage cannula) , MELVIN and RUL Wedge resections Plan: IS per ALD Bronchiectasis 09/29/2017 10/04/2022 Overview: See care coordination note Umbilical hernia 07/10/2012 10/04/2022 Pain in joint, ankle and foot 04/18/2012 10/04/2022 COPD (chronic obstructive pulmonary disease) 10/04/2022 Overview: See care coordination note Premature atrial contraction 07/22/2022 Overview: See care coordination note documented as of this encounter (statuses as of 03/30/2023) [facility] History of Past illness Narrative* Problem Noted Date Diagnosed Date Resolved Date Generalized anxiety disorder 08/03/2022 10/04/2022 Postoperative pain 07/28/2022 Immunosuppressed status 07/26/202209/08 Current chronic use of systemic steroids 07/26/2022 10/04/2022 Atelectasis 07/23/2022 10/04/2022 Overview: 07/23/2022 Encourage PEP with deep breathing and cough. Hypophosphatemia 07/23/2022 10/04/2022 Overview: 07/23/2022 Replete phosphorus as needed. Streptococcus pneumoniae 07/23/2022 Obesity, Class I, BMI 30-34.9 07/22/2022 10/04/2022 On mechanically assisted ventilation 07/21/2022 07/22/2022 Overview: History: Postoperative. Assessment: Currently intubated and sedated. Grade 1 airway. Plan: WTE/Bronch AM 07/21 Hypotension, unspecified 07/21/2022 Overview: History: Postoperative. Assessment: Hypotensive requiring vasopressor for hemodynamic support. Plan: Titrate Levo infusion to maintain MAP goal 70-80. See care coordination note 07/23/2022 Vasopressin infusion weaned off overnight. Stress hyperglycemia 07/21/2022 023 Overview: History: no DM history Assessment: Perioperative insulin resistance and exacerbation of hyperglycemia. Plan: RHI infusion per CVICU nomogram to maintain BG <150 mg/dL. See care coordination note 07/23/2022 Transition to sliding scale insulin for blood glucose control. Acute post-operative pain 07/21/2022 Overview: History: Postoperative. Assessment: Currently intubated and sedated. Plan: IV push fentanyl until able to use CIRCULATION LIBRARIAN. Initiate scheduled Lidocaine patches and Tylenol. Consider oxycodone IR as needed for breakthrough pain after extubation. See care coordination note 07/23/2022 Continue bupivacaine/fentanyl PCEA for pain control. Emphysema due to alpha-1-ant itrypsin deficiency 07/20/2022 10/04/2022 Overview: History: hx of A1AT deficiency with home O2 3L with rest and 4L with activity, and 3L with sleep. Assessment:07/20/2022: Bilateral lung transplantation via Clamshell incision with assistance of [facility] (Central aortic 21 Fr cannula, 26 Fr Right femoral venous drainage cannula) , MELVIN and RUL Wedge resections Plan: IS per ALD Lung transplant candidate 07/20/2022 Lung transplant planned 07/17/202209/08 Chronic respiratory failure with hypoxia and hypercapnia 02/02/2022 10/04/2022 Overview: See care coordination note Heterozygous alpha 1-antitrypsin deficiency 07/30/2021 10/04/2022 Former smoker 04/10/2020 10/04/2022 Obesity 11/30/2017 10/04/2022 Stage 4 very severe COPD by GOLD classification 09/29/2017 10/04/2022 Overview: History: home O2 3L with rest and 4L with activity, and 3L with sleep. Assessment:07/20/2022: Bilateral lung transplantation via Clamshell incision with assistance of [facility] (Central aortic 21 Fr cannula, 26 Fr Right femoral venous drainage cannula) , MELVIN and RUL Wedge resections Plan: IS per ALD Bronchiectasis 09/29/2017 10/04/2022 Overview: See care coordination note Umbilical hernia 07/10/2012 10/04/2022 Pain in joint, ankle and foot 04/18/2012 10/04/2022 COPD (chronic obstructive pulmonary disease) 10/04/2022 Overview: See care coordination note Premature atrial contraction 07/22/2022 Overview: See care coordination note documented as of this encounter (statuses as of 04/06/2023) [facility] History of Past illness Narrative* Problem Noted Date Diagnosed Date Resolved Date Generalized anxiety disorder 08/03/2022 10/04/2022 Postoperative pain 07/28/2022 Immunosuppressed status 07/26/202209/08 Current chronic use of systemic steroids 07/26/2022 10/04/2022 Atelectasis 07/23/2022 10/04/2022 Overview: 07/23/2022 Encourage PEP with deep breathing and cough. Hypophosphatemia 07/23/2022 10/04/2022 Overview: 07/23/2022 Replete phosphorus as needed. Streptococcus pneumoniae 07/23/2022 Obesity, Class I, BMI 30-34.9 07/22/2022 10/04/2022 On mechanically assisted ventilation 07/21/2022 07/22/2022 Overview: History: Postoperative. Assessment: Currently intubated and sedated. Grade 1 airway. Plan: WTE/Bronch AM 07/21 Hypotension, unspecified 07/21/2022 Overview: History: Postoperative. Assessment: Hypotensive requiring vasopressor for hemodynamic support. Plan: Titrate Levo infusion to maintain MAP goal 70-80. See care coordination note 07/23/2022 Vasopressin infusion weaned off overnight. Stress hyperglycemia 07/21/2022 023 Overview: History: no DM history Assessment: Perioperative insulin resistance and exacerbation of hyperglycemia. Plan: RHI infusion per CVICU nomogram to maintain BG <150 mg/dL. See care coordination note 07/23/2022 Transition to sliding scale insulin for blood glucose control. Acute post-operative pain 07/21/2022 Overview: History: Postoperative. Assessment: Currently intubated and sedated. Plan: IV push fentanyl until able to use CIRCULATION LIBRARIAN. Initiate scheduled Lidocaine patches and Tylenol. Consider oxycodone IR as needed for breakthrough pain after extubation. See care coordination note 07/23/2022 Continue bupivacaine/fentanyl PCEA for pain control. Emphysema due to alpha-1-ant itrypsin deficiency 07/20/2022 10/04/2022 Overview: History: hx of A1AT deficiency with home O2 3L with rest and 4L with activity, and 3L with sleep. Assessment:07/20/2022: Bilateral lung transplantation via Clamshell incision with assistance of [facility] (Central aortic 21 Fr cannula, 26 Fr Right femoral venous drainage cannula) , MELVIN and RUL Wedge resections Plan: IS per ALD Lung transplant candidate 07/20/2022 Lung transplant planned 07/17/202209/08 Chronic respiratory failure with hypoxia and hypercapnia 02/02/2022 10/04/2022 Overview: See care coordination note Heterozygous alpha 1-antitrypsin deficiency 07/30/2021 10/04/2022 Former smoker 04/10/2020 10/04/2022 Obesity 11/30/2017 10/04/2022 Stage 4 very severe COPD by GOLD classification 09/29/2017 10/04/2022 Overview: History: home O2 3L with rest and 4L with activity, and 3L with sleep. Assessment:07/20/2022: Bilateral lung transplantation via Clamshell incision with assistance of [facility] (Central aortic 21 Fr cannula, 26 Fr Right femoral venous drainage cannula) , MELVIN and RUL Wedge resections Plan: IS per ALD Bronchiectasis 09/29/2017 10/04/2022 Overview: See care coordination note Umbilical hernia 07/10/2012 10/04/2022 Pain in joint, ankle and foot 04/18/2012 10/04/2022 COPD (chronic obstructive pulmonary disease) 10/04/2022 Overview: See care coordination note Premature atrial contraction 07/22/2022 Overview: See care coordination note documented as of this encounter (statuses as of 04/11/2023) [facility] History of Past illness Narrative* Problem Noted Date Diagnosed Date Resolved Date Generalized anxiety disorder 08/03/2022 10/04/2022 Postoperative pain 07/28/2022 Immunosuppressed status 07/26/202209/08 Current chronic use of systemic steroids 07/26/2022 10/04/2022 Atelectasis 07/23/2022 10/04/2022 Overview: 07/23/2022 Encourage PEP with deep breathing and cough. Hypophosphatemia 07/23/2022 10/04/2022 Overview: 07/23/2022 Replete phosphorus as needed. Streptococcus pneumoniae 07/23/2022 Obesity, Class I, BMI 30-34.9 07/22/2022 10/04/2022 On mechanically assisted ventilation 07/21/2022 07/22/2022 Overview: History: Postoperative. Assessment: Currently intubated and sedated. Grade 1 airway. Plan: WTE/Bronch AM 07/21 Hypotension, unspecified 07/21/2022 Overview: History: Postoperative. Assessment: Hypotensive requiring vasopressor for hemodynamic support. Plan: Titrate Levo infusion to maintain MAP goal 70-80. See care coordination note 07/23/2022 Vasopressin infusion weaned off overnight. Stress hyperglycemia 07/21/2022 023 Overview: History: no DM history Assessment: Perioperative insulin resistance and exacerbation of hyperglycemia. Plan: RHI infusion per CVICU nomogram to maintain BG <150 mg/dL. See care coordination note 07/23/2022 Transition to sliding scale insulin for blood glucose control. Acute post-operative pain 07/21/2022 Overview: History: Postoperative. Assessment: Currently intubated and sedated. Plan: IV push fentanyl until able to use CIRCULATION LIBRARIAN. Initiate scheduled Lidocaine patches and Tylenol. Consider oxycodone IR as needed for breakthrough pain after extubation. See care coordination note 07/23/2022 Continue bupivacaine/fentanyl PCEA for pain control. Emphysema due to alpha-1-ant itrypsin deficiency 07/20/2022 10/04/2022 Overview: History: hx of A1AT deficiency with home O2 3L with rest and 4L with activity, and 3L with sleep. Assessment:07/20/2022: Bilateral lung transplantation via Clamshell incision with assistance of [facility] (Central aortic 21 Fr cannula, 26 Fr Right femoral venous drainage cannula) , MELVIN and RUL Wedge resections Plan: IS per ALD Lung transplant candidate 07/20/2022 Lung transplant planned 07/17/202209/08 Chronic respiratory failure with hypoxia and hypercapnia 02/02/2022 10/04/2022 Overview: See care coordination note Heterozygous alpha 1-antitrypsin deficiency 07/30/2021 10/04/2022 Former smoker 04/10/2020 10/04/2022 Obesity 11/30/2017 10/04/2022 Stage 4 very severe COPD by GOLD classification 09/29/2017 10/04/2022 Overview: History: home O2 3L with rest and 4L with activity, and 3L with sleep. Assessment:07/20/2022: Bilateral lung transplantation via Clamshell incision with assistance of [facility] (Central aortic 21 Fr cannula, 26 Fr Right femoral venous drainage cannula) , MELVIN and RUL Wedge resections Plan: IS per ALD Bronchiectasis 09/29/2017 10/04/2022 Overview: See care coordination note Umbilical hernia 07/10/2012 10/04/2022 Pain in joint, ankle and foot 04/18/2012 10/04/2022 COPD (chronic obstructive pulmonary disease) 10/04/2022 Overview: See care coordination note Premature atrial contraction 07/22/2022 Overview: See care coordination note documented as of this encounter (statuses as of 04/11/2023) [facility] History of Past illness Narrative* Problem Noted Date Diagnosed Date Resolved Date Generalized anxiety disorder 08/03/2022 10/04/2022 Postoperative pain 07/28/2022 Immunosuppressed status 07/26/202209/08 Current chronic use of systemic steroids 07/26/2022 10/04/2022 Atelectasis 07/23/2022 10/04/2022 Overview: 07/23/2022 Encourage PEP with deep breathing and cough. Hypophosphatemia 07/23/2022 10/04/2022 Overview: 07/23/2022 Replete phosphorus as needed. Streptococcus pneumoniae 07/23/2022 Obesity, Class I, BMI 30-34.9 07/22/2022 10/04/2022 On mechanically assisted ventilation 07/21/2022 07/22/2022 Overview: History: Postoperative. Assessment: Currently intubated and sedated. Grade 1 airway. Plan: WTE/Bronch AM 07/21 Hypotension, unspecified 07/21/2022 Overview: History: Postoperative. Assessment: Hypotensive requiring vasopressor for hemodynamic support. Plan: Titrate Levo infusion to maintain MAP goal 70-80. See care coordination note 07/23/2022 Vasopressin infusion weaned off overnight. Stress hyperglycemia 07/21/2022 023 Overview: History: no DM history Assessment: Perioperative insulin resistance and exacerbation of hyperglycemia. Plan: RHI infusion per CVICU nomogram to maintain BG <150 mg/dL. See care coordination note 07/23/2022 Transition to sliding scale insulin for blood glucose control. Acute post-operative pain 07/21/2022 Overview: History: Postoperative. Assessment: Currently intubated and sedated. Plan: IV push fentanyl until able to use CIRCULATION LIBRARIAN. Initiate scheduled Lidocaine patches and Tylenol. Consider oxycodone IR as needed for breakthrough pain after extubation. See care coordination note 07/23/2022 Continue bupivacaine/fentanyl PCEA for pain control. Emphysema due to alpha-1-ant itrypsin deficiency 07/20/2022 10/04/2022 Overview: History: hx of A1AT deficiency with home O2 3L with rest and 4L with activity, and 3L with sleep. Assessment:07/20/2022: Bilateral lung transplantation via Clamshell incision with assistance of [facility] (Central aortic 21 Fr cannula, 26 Fr Right femoral venous drainage cannula) , MELVIN and RUL Wedge resections Plan: IS per ALD Lung transplant candidate 07/20/2022 Lung transplant planned 07/17/202209/08 Chronic respiratory failure with hypoxia and hypercapnia 02/02/2022 10/04/2022 Overview: See care coordination note Heterozygous alpha 1-antitrypsin deficiency 07/30/2021 10/04/2022 Former smoker 04/10/2020 10/04/2022 Obesity 11/30/2017 10/04/2022 Stage 4 very severe COPD by GOLD classification 09/29/2017 10/04/2022 Overview: History: home O2 3L with rest and 4L with activity, and 3L with sleep. Assessment:07/20/2022: Bilateral lung transplantation via Clamshell incision with assistance of [facility] (Central aortic 21 Fr cannula, 26 Fr Right femoral venous drainage cannula) , MELVIN and RUL Wedge resections Plan: IS per ALD Bronchiectasis 09/29/2017 10/04/2022 Overview: See care coordination note Umbilical hernia 07/10/2012 10/04/2022 Pain in joint, ankle and foot 04/18/2012 10/04/2022 COPD (chronic obstructive pulmonary disease) 10/04/2022 Overview: See care coordination note Premature atrial contraction 07/22/2022 Overview: See care coordination note documented as of this encounter (statuses as of 04/19/2023) [facility] History of Past illness Narrative* Problem Noted Date Resolved Date On mechanically assisted ventilation 07/21/2022 07/22/2022 Overview: History: Postoperative. Assessment: Currently intubated and sedated. Grade 1 airway. Plan: WTE/Bronch AM 07/21 Premature atrial contraction Overview: See care coordination note documented as of this encounter (statuses as of 07/23/2022) [facility] History of Past illness Narrative* Problem Noted Date Resolved Date On mechanically assisted ventilation 07/21/2022 07/22/2022 Overview: History: Postoperative. Assessment: Currently intubated and sedated. Grade 1 airway. Plan: WTE/Bronch AM 14 Premature atrial contraction Overview: See care coordination note documented as of this encounter (statuses as of 08/04/2022) [facility] History of Past illness Narrative* Problem Noted Date Resolved Date On mechanically assisted ventilation 07/21/2022 07/22/2022 Overview: History: Postoperative. Assessment: Currently intubated and sedated. Grade 1 airway. Plan: WTE/Bronch AM 14 Premature atrial contraction Overview: See care coordination note documented as of this encounter (statuses as of 08/04/2022) [facility] History of Past illness Narrative* Problem Noted Date Resolved Date On mechanically assisted ventilation 07/21/2022 07/22/2022 Overview: History: Postoperative. Assessment: Currently intubated and sedated. Grade 1 airway. Plan: WTE/Bronch AM 07/21 Premature atrial contraction Overview: See care coordination note documented as of this encounter (statuses as of 08/05/2022) [facility] History of Past illness Narrative* Problem Noted Date Resolved Date On mechanically assisted ventilation 07/21/2022 07/22/2022 Overview: History: Postoperative. Assessment: Currently intubated and sedated. Grade 1 airway. Plan: WTE/Bronch AM 07/21 Premature atrial contraction Overview: See care coordination note documented as of this encounter (statuses as of 08/08/2022) [facility] History of Past illness Narrative* Problem Noted Date Resolved Date On mechanically assisted ventilation 07/21/2022 07/22/2022 Overview: History: Postoperative. Assessment: Currently intubated and sedated. Grade 1 airway. Plan: WTE/Bronch AM 07/21 Premature atrial contraction Overview: See care coordination note documented as of this encounter (statuses as of 08/08/2022) [facility] History of Past illness Narrative* Problem Noted Date Resolved Date On mechanically assisted ventilation 07/21/2022 07/22/2022 Overview: History: Postoperative. Assessment: Currently intubated and sedated. Grade 1 airway. Plan: WTE/Bronch AM 07/21 Premature atrial contraction Overview: See care coordination note documented as of this encounter (statuses as of 08/09/2022) [facility] History of Past illness Narrative* Problem Noted Date Resolved Date On mechanically assisted ventilation 07/21/2022 07/22/2022 Overview: History: Postoperative. Assessment: Currently intubated and sedated. Grade 1 airway. Plan: WTE/Bronch AM 07/21 Premature atrial contraction Overview: See care coordination note documented as of this encounter (statuses as of 08/11/2022) [facility] History of Past illness Narrative* Problem Noted Date Resolved Date On mechanically assisted ventilation 07/21/2022 07/22/2022 Overview: History: Postoperative. Assessment: Currently intubated and sedated. Grade 1 airway. Plan: WTE/Bronch AM 07/21 Premature atrial contraction Overview: See care coordination note documented as of this encounter (statuses as of 08/11/2022) [facility] History of Past illness Narrative* Problem Noted Date Resolved Date On mechanically assisted ventilation 07/21/2022 07/22/2022 Overview: History: Postoperative. Assessment: Currently intubated and sedated. Grade 1 airway. Plan: WTE/Bronch AM 07/21 Premature atrial contraction Overview: See care coordination note documented as of this encounter (statuses as of 08/11/2022) [facility] History of Past illness Narrative* Problem Noted Date Resolved Date On mechanically assisted ventilation 07/21/2022 07/22/2022 Overview: History: Postoperative. Assessment: Currently intubated and sedated. Grade 1 airway. Plan: WTE/Bronch AM 14 Premature atrial contraction Overview: See care coordination note documented as of this encounter (statuses as of 08/12/2022) [facility] History of Past illness Narrative* Problem Noted Date Resolved Date On mechanically assisted ventilation 07/21/2022 07/22/2022 Overview: History: Postoperative. Assessment: Currently intubated and sedated. Grade 1 airway. Plan: WTE/Bronch AM 07/21 Premature atrial contraction Overview: See care coordination note documented as of this encounter (statuses as of 08/12/2022) [facility] History of Past illness Narrative* Problem Noted Date Resolved Date On mechanically assisted ventilation 07/21/2022 07/22/2022 Overview: History: Postoperative. Assessment: Currently intubated and sedated. Grade 1 airway. Plan: WTE/Bronch AM 07/21 Premature atrial contraction Overview: See care coordination note documented as of this encounter (statuses as of 08/13/2022) [facility] History of Past illness Narrative* Problem Noted Date Resolved Date On mechanically assisted ventilation 07/21/2022 07/22/2022 Overview: History: Postoperative. Assessment: Currently intubated and sedated. Grade 1 airway. Plan: WTE/Bronch AM 07/21 Premature atrial contraction Overview: See care coordination note documented as of this encounter (statuses as of 08/13/2022) [facility] History of Past illness Narrative* Problem Noted Date Resolved Date On mechanically assisted ventilation 07/21/2022 07/22/2022 Overview: History: Postoperative. Assessment: Currently intubated and sedated. Grade 1 airway. Plan: WTE/Bronch AM 07/21 Premature atrial contraction Overview: See care coordination note documented as of this encounter (statuses as of 08/13/2022) [facility] History of Past illness Narrative* Problem Noted Date Diagnosed Date Resolved Date On mechanically assisted ventilation 07/21/2022 07/22/2022 Overview: History: Postoperative. Assessment: Currently intubated and sedated. Grade 1 airway. Plan: WTE/Bronch AM 07/21 Premature atrial contraction 07/22/2022 Overview: See care coordination note documented as of this encounter (statuses as of 08/14/2022) [facility] History of Past illness Narrative* Problem Noted Date Diagnosed Date Resolved Date On mechanically assisted ventilation 07/21/2022 07/22/2022 Overview: History: Postoperative. Assessment: Currently intubated and sedated. Grade 1 airway. Plan: WTE/Bronch AM 07/21 Premature atrial contraction 07/22/2022 Overview: See care coordination note documented as of this encounter (statuses as of 08/14/2022) [facility] History of Past illness Narrative* Problem Noted Date Diagnosed Date Resolved Date On mechanically assisted ventilation 07/21/2022 07/22/2022 Overview: History: Postoperative. Assessment: Currently intubated and sedated. Grade 1 airway. Plan: WTE/Bronch AM 07/21 Premature atrial contraction 07/22/2022 Overview: See care coordination note documented as of this encounter (statuses as of 08/14/2022) [facility] History of Past illness Narrative* Problem Noted Date Diagnosed Date Resolved Date On mechanically assisted ventilation 07/21/2022 07/22/2022 Overview: History: Postoperative. Assessment: Currently intubated and sedated. Grade 1 airway. Plan: WTE/Bronch AM 07/21 Premature atrial contraction 07/22/2022 Overview: See care coordination note documented as of this encounter (statuses as of 08/16/2022) [facility] History of Past illness Narrative* Problem Noted Date Diagnosed Date Resolved Date On mechanically assisted ventilation 07/21/2022 07/22/2022 Overview: History: Postoperative. Assessment: Currently intubated and sedated. Grade 1 airway. Plan: WTE/Bronch AM 07/21 Premature atrial contraction 07/22/2022 Overview: See care coordination note documented as of this encounter (statuses as of 08/17/2022) [facility] History of Past illness Narrative* Problem Noted Date Diagnosed Date Resolved Date On mechanically assisted ventilation 07/21/2022 07/22/2022 Overview: History: Postoperative. Assessment: Currently intubated and sedated. Grade 1 airway. Plan: WTE/Bronch AM 07/21 Premature atrial contraction 07/22/2022 Overview: See care coordination note documented as of this encounter (statuses as of 08/18/2022) [facility] History of Past illness Narrative* Problem Noted Date Diagnosed Date Resolved Date On mechanically assisted ventilation 07/21/2022 07/22/2022 Overview: History: Postoperative. Assessment: Currently intubated and sedated. Grade 1 airway. Plan: WTE/Bronch AM 07/21 Premature atrial contraction 07/22/2022 Overview: See care coordination note documented as of this encounter (statuses as of 08/18/2022) [facility] History of Past illness Narrative* Problem Noted Date Diagnosed Date Resolved Date On mechanically assisted ventilation 07/21/2022 07/22/2022 Overview: History: Postoperative. Assessment: Currently intubated and sedated. Grade 1 airway. Plan: WTE/Bronch AM 07/21 Premature atrial contraction 07/22/2022 Overview: See care coordination note documented as of this encounter (statuses as of 08/19/2022) [facility] History of Past illness Narrative* Problem Noted Date Diagnosed Date Resolved Date On mechanically assisted ventilation 07/21/2022 07/22/2022 Overview: History: Postoperative. Assessment: Currently intubated and sedated. Grade 1 airway. Plan: WTE/Bronch AM 07/21 Premature atrial contraction 07/22/2022 Overview: See care coordination note documented as of this encounter (statuses as of 08/19/2022) [facility] History of Past illness Narrative* Problem Noted Date Diagnosed Date Resolved Date On mechanically assisted ventilation 07/21/2022 07/22/2022 Overview: History: Postoperative. Assessment: Currently intubated and sedated. Grade 1 airway. Plan: WTE/Bronch AM 07/21 Premature atrial contraction 07/22/2022 Overview: See care coordination note documented as of this encounter (statuses as of 08/20/2022) [facility] History of Past illness Narrative* Problem Noted Date Diagnosed Date Resolved Date On mechanically assisted ventilation 07/21/2022 07/22/2022 Overview: History: Postoperative. Assessment: Currently intubated and sedated. Grade 1 airway. Plan: WTE/Bronch AM 07/21 Premature atrial contraction 07/22/2022 Overview: See care coordination note documented as of this encounter (statuses as of 08/20/2022) [facility] History of Past illness Narrative* Problem Noted Date Diagnosed Date Resolved Date On mechanically assisted ventilation 07/21/2022 07/22/2022 Overview: History: Postoperative. Assessment: Currently intubated and sedated. Grade 1 airway. Plan: WTE/Bronch AM 07/21 Premature atrial contraction 07/22/2022 Overview: See care coordination note documented as of this encounter (statuses as of 08/20/2022) [facility] History of Past illness Narrative* Problem Noted Date Diagnosed Date Resolved Date On mechanically assisted ventilation 07/21/2022 07/22/2022 Overview: History: Postoperative. Assessment: Currently intubated and sedated. Grade 1 airway. Plan: WTE/Bronch AM 07/21 Premature atrial contraction 07/22/2022 Overview: See care coordination note documented as of this encounter (statuses as of 08/20/2022) [facility] History of Past illness Narrative* Problem Noted Date Diagnosed Date Resolved Date On mechanically assisted ventilation 07/21/2022 07/22/2022 Overview: History: Postoperative. Assessment: Currently intubated and sedated. Grade 1 airway. Plan: WTE/Bronch AM 07/21 Premature atrial contraction 07/22/2022 Overview: See care coordination note documented as of this encounter (statuses as of 08/21/2022) [facility] History of Past illness Narrative* Problem Noted Date Diagnosed Date Resolved Date On mechanically assisted ventilation 07/21/2022 07/22/2022 Overview: History: Postoperative. Assessment: Currently intubated and sedated. Grade 1 airway. Plan: WTE/Bronch AM 07/21 Premature atrial contraction 07/22/2022 Overview: See care coordination note documented as of this encounter (statuses as of 08/24/2022) [facility] History of Past illness Narrative* Problem Noted Date Diagnosed Date Resolved Date On mechanically assisted ventilation 07/21/2022 07/22/2022 Overview: History: Postoperative. Assessment: Currently intubated and sedated. Grade 1 airway. Plan: WTE/Bronch AM 07/21 Premature atrial contraction 07/22/2022 Overview: See care coordination note documented as of this encounter (statuses as of 08/25/2022) [facility] History of Past illness Narrative* Problem Noted Date Diagnosed Date Resolved Date On mechanically assisted ventilation 07/21/2022 07/22/2022 Overview: History: Postoperative. Assessment: Currently intubated and sedated. Grade 1 airway. Plan: WTE/Bronch AM 07/21 Premature atrial contraction 07/22/2022 Overview: See care coordination note documented as of this encounter (statuses as of 08/25/2022) [facility] History of Past illness Narrative* Problem Noted Date Diagnosed Date Resolved Date On mechanically assisted ventilation 07/21/2022 07/22/2022 Overview: History: Postoperative. Assessment: Currently intubated and sedated. Grade 1 airway. Plan: WTE/Bronch AM 07/21 Premature atrial contraction 07/22/2022 Overview: See care coordination note documented as of this encounter (statuses as of 08/25/2022) [facility] History of Past illness Narrative* Problem Noted Date Diagnosed Date Resolved Date On mechanically assisted ventilation 07/21/2022 07/22/2022 Overview: History: Postoperative. Assessment: Currently intubated and sedated. Grade 1 airway. Plan: WTE/Bronch AM 07/21 Premature atrial contraction 07/22/2022 Overview: See care coordination note documented as of this encounter (statuses as of 08/26/2022) [facility] History of Past illness Narrative* Problem Noted Date Diagnosed Date Resolved Date On mechanically assisted ventilation 07/21/2022 07/22/2022 Overview: History: Postoperative. Assessment: Currently intubated and sedated. Grade 1 airway. Plan: WTE/Bronch AM 07/21 Premature atrial contraction 07/22/2022 Overview: See care coordination note documented as of this encounter (statuses as of 08/27/2022) [facility] History of Past illness Narrative* Problem Noted Date Diagnosed Date Resolved Date On mechanically assisted ventilation 07/21/2022 07/22/2022 Overview: History: Postoperative. Assessment: Currently intubated and sedated. Grade 1 airway. Plan: WTE/Bronch AM 6 Premature atrial contraction 07/22/2022 Overview: See care coordination note documented as of this encounter (statuses as of 08/29/2022) [facility] History of Past illness Narrative* Problem Noted Date Diagnosed Date Resolved Date On mechanically assisted ventilation 07/21/2022 07/22/2022 Overview: History: Postoperative. Assessment: Currently intubated and sedated. Grade 1 airway. Plan: WTE/Bronch AM 14 Premature atrial contraction 07/22/2022 Overview: See care coordination note documented as of this encounter (statuses as of 09/02/2022) [facility] History of Past illness Narrative* Problem Noted Date Diagnosed Date Resolved Date On mechanically assisted ventilation 07/21/2022 07/22/2022 Overview: History: Postoperative. Assessment: Currently intubated and sedated. Grade 1 airway. Plan: WTE/Bronch AM 07/21 Premature atrial contraction 07/22/2022 Overview: See care coordination note documented as of this encounter (statuses as of 09/03/2022) [facility] History of Past illness Narrative* Problem Noted Date Diagnosed Date Resolved Date On mechanically assisted ventilation 07/21/2022 07/22/2022 Overview: History: Postoperative. Assessment: Currently intubated and sedated. Grade 1 airway. Plan: WTE/Bronch AM 14 Premature atrial contraction 07/22/2022 Overview: See care coordination note documented as of this encounter (statuses as of 09/04/2022) [facility] History of Past illness Narrative* Problem Noted Date Diagnosed Date Resolved Date On mechanically assisted ventilation 07/21/2022 07/22/2022 Overview: History: Postoperative. Assessment: Currently intubated and sedated. Grade 1 airway. Plan: WTE/Bronch AM 614 Premature atrial contraction 07/22/2022 Overview: See care coordination note documented as of this encounter (statuses as of 09/06/2022) [facility] History of Past illness Narrative* Problem Noted Date Diagnosed Date Resolved Date On mechanically assisted ventilation 07/21/2022 07/22/2022 Overview: History: Postoperative. Assessment: Currently intubated and sedated. Grade 1 airway. Plan: WTE/Bronch AM 14 Premature atrial contraction 07/22/2022 Overview: See care coordination note documented as of this encounter (statuses as of 09/08/2022) [facility] History of Past illness Narrative* Problem Noted Date Diagnosed Date Resolved Date On mechanically assisted ventilation 07/21/2022 07/22/2022 Overview: History: Postoperative. Assessment: Currently intubated and sedated. Grade 1 airway. Plan: WTE/Bronch AM 07/21 Premature atrial contraction 07/22/2022 Overview: See care coordination note documented as of this encounter (statuses as of 09/08/2022) [facility] History of Past illness Narrative* Problem Noted Date Diagnosed Date Resolved Date On mechanically assisted ventilation 07/21/2022 07/22/2022 Overview: History: Postoperative. Assessment: Currently intubated and sedated. Grade 1 airway. Plan: WTE/Bronch AM 14 Premature atrial contraction 07/22/2022 Overview: See care coordination note documented as of this encounter (statuses as of 09/13/2022) [facility] History of Past illness Narrative* Problem Noted Date Diagnosed Date Resolved Date On mechanically assisted ventilation 07/21/2022 07/22/2022 Overview: History: Postoperative. Assessment: Currently intubated and sedated. Grade 1 airway. Plan: WTE/Bronch AM 614 Premature atrial contraction 07/22/2022 Overview: See care coordination note documented as of this encounter (statuses as of 09/24/2022) [facility] History of Past illness Narrative* Problem Noted Date Diagnosed Date Resolved Date On mechanically assisted ventilation 07/21/2022 07/22/2022 Overview: History: Postoperative. Assessment: Currently intubated and sedated. Grade 1 airway. Plan: WTE/Bronch AM 14 Premature atrial contraction 07/22/2022 Overview: See care coordination note documented as of this encounter (statuses as of 09/28/2022) [facility] History of Past illness Narrative* Problem Noted Date Diagnosed Date Resolved Date On mechanically assisted ventilation 07/21/2022 07/22/2022 Overview: History: Postoperative. Assessment: Currently intubated and sedated. Grade 1 airway. Plan: WTE/Bronch AM 14 Premature atrial contraction 07/22/2022 Overview: See care coordination note documented as of this encounter (statuses as of 09/30/2022) [facility] History of Past illness Narrative* Problem Noted Date Diagnosed Date Resolved Date On mechanically assisted ventilation 07/21/2022 07/22/2022 Overview: History: Postoperative. Assessment: Currently intubated and sedated. Grade 1 airway. Plan: WTE/Bronch AM 14 Premature atrial contraction 07/22/2022 Overview: See care coordination note documented as of this encounter (statuses as of 09/30/2022) [facility] History of Past illness Narrative* Problem Noted Date Diagnosed Date Resolved Date On mechanically assisted ventilation 07/21/2022 07/22/2022 Overview: History: Postoperative. Assessment: Currently intubated and sedated. Grade 1 airway. Plan: WTE/Bronch AM 6/14 Premature atrial contraction 07/22/2022 Overview: See care coordination note documented as of this encounter (statuses as of 09/30/2022) [facility] History of Past illness Narrative* Problem Noted Date Diagnosed Date Resolved Date On mechanically assisted ventilation 07/21/2022 07/22/2022 Overview: History: Postoperative. Assessment: Currently intubated and sedated. Grade 1 airway. 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 Lung replaced by transplant Encounter for monitoring tacrolimus therapy Encounter for therapeutic drug monitoring Essential hypertension Unspecified essential hypertension Hyperlipidemia, unspecified hyperlipidemia type Steroid-induced osteopenia Disorder of bone and cartilage, unspecified Gastroesophageal reflux disease without esophagitis Esophageal reflux 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) Lung replaced by transplant Research study patient- Primary documented in this encounter [facility] Evaluation note* Diagnosis Aftercare following organ transplant- Primary 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 Lung replaced by transplant Encounter for monitoring tacrolimus therapy Encounter for therapeutic drug monitoring Essential hypertension Unspecified essential hypertension Hyperlipidemia, unspecified hyperlipidemia type Gastroesophageal reflux disease without esophagitis Esophageal reflux Steroid-induced osteopenia Disorder of bone and cartilage, unspecified Research study patient- Primary 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-related cataract, right eye documented in this encounter [facility]* Diagnosis Aftercare following organ transplant- Primary 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 Lung replaced by transplant Encounter for monitoring tacrolimus therapy Encounter for therapeutic drug monitoring Essential hypertension Unspecified essential hypertension Hyperlipidemia, unspecified hyperlipidemia type Steroid-induced osteopenia Disorder of bone and cartilage, unspecified Gastroesophageal reflux disease without esophagitis Esophageal reflux 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-related cataract, right eye documented in this encounter [facility]* Diagnosis Aftercare following organ transplant- Primary 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 Lung replaced by transplant Encounter for monitoring tacrolimus therapy Encounter for therapeutic drug monitoring Essential hypertension Unspecified essential hypertension Hyperlipidemia, unspecified hyperlipidemia type Gastroesophageal reflux disease without esophagitis Esophageal reflux Steroid-induced osteopenia Disorder of bone and cartilage, unspecified Obesity, Class I, BMI 30-34.9 Obesity, unspecified 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-related cataract, right eye documented in this encounter [facility]* Diagnosis Aftercare following organ transplant 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 Lung replaced by transplant Encounter for monitoring tacrolimus therapy Encounter for therapeutic drug monitoring Essential hypertension Unspecified essential hypertension Hyperlipidemia, unspecified hyperlipidemia type Steroid-induced osteopenia Disorder of bone and cartilage, unspecified Gastroesophageal reflux disease without esophagitis Esophageal reflux 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-related cataract, right eye documented in this encounter [facility] Evaluation note* Diagnosis Aftercare following organ transplant- Primary 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 Lung replaced by transplant Encounter for monitoring tacrolimus therapy Encounter for therapeutic drug monitoring Essential hypertension Unspecified essential hypertension Hyperlipidemia, unspecified hyperlipidemia type Gastroesophageal reflux disease without esophagitis Esophageal reflux Steroid-induced osteopenia Disorder of bone and cartilage, unspecified documented in this encounter [facility] note* Diagnosis Aftercare following organ transplant 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 Lung replaced by transplant Encounter for monitoring tacrolimus therapy Encounter for therapeutic drug monitoring Essential hypertension Unspecified essential hypertension Hyperlipidemia, unspecified hyperlipidemia type Gastroesophageal reflux disease without esophagitis Esophageal reflux Steroid-induced osteopenia Disorder of bone and cartilage, unspecified documented in this encounter [facility] note* Diagnosis 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 Lung replaced by transplant Former cigarette smoker Personal history of tobacco use, presenting hazards to health documented in this encounter [facility] note* Diagnosis Aftercare following organ transplant- Primary 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 Lung replaced by transplant Encounter for monitoring tacrolimus therapy Encounter for therapeutic drug monitoring Essential hypertension Unspecified essential hypertension Mixed hyperlipidemia Steroid-induced osteopenia Disorder of bone and cartilage, unspecified Gastroesophageal reflux disease without esophagitis Esophageal reflux Obesity, Class II, BMI 35-39.9 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, 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 Encounter for long-term (current) use of steroids Encounter for screening for malignant neoplasm of prostate Special screening for malignant neoplasm of prostate Acute upper respiratory infection, unspecified 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 (HCC) documented [facility]* Diagnosis 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 Lung replaced by transplant Aftercare following organ transplant Encounter for monitoring tacrolimus therapy Encounter for therapeutic drug monitoring Essential hypertension Unspecified essential hypertension Mixed hyperlipidemia Steroid-induced osteopenia Disorder of bone and cartilage, unspecified Gastroesophageal reflux disease without esophagitis Esophageal reflux documented in this encounter [facility]* Diagnosis Aftercare following organ transplant- Primary 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 Lung replaced by transplant Encounter for monitoring tacrolimus therapy Encounter for therapeutic drug monitoring Essential hypertension Unspecified essential hypertension Mixed hyperlipidemia Steroid-induced osteopenia Disorder of bone and cartilage, unspecified Gastroesophageal reflux disease without esophagitis Esophageal reflux Obesity, Class II, BMI 35-39.9 Obesity, unspecified documented in this encounter [facility]* Diagnosis Aftercare following organ transplant 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 Lung replaced by transplant Encounter for monitoring tacrolimus therapy Encounter for therapeutic drug monitoring Essential hypertension Unspecified essential hypertension Mixed hyperlipidemia Steroid-induced osteopenia Disorder of bone and cartilage, unspecified Gastroesophageal reflux disease without esophagitis Esophageal reflux documented in this encounter [facility]* Diagnosis Aftercare following organ transplant- Primary 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 Lung replaced by transplant Encounter for monitoring tacrolimus therapy Encounter for therapeutic drug monitoring Essential hypertension Unspecified essential hypertension Mixed hyperlipidemia Steroid-induced osteopenia Disorder of bone and cartilage, unspecified Gastroesophageal reflux disease without esophagitis Esophageal reflux 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 Lung replaced by transplant Aftercare following organ transplant Encounter for monitoring tacrolimus therapy Encounter for therapeutic drug monitoring Essential hypertension Unspecified essential hypertension Mixed hyperlipidemia Steroid-induced osteopenia Disorder of bone and cartilage, unspecified Gastroesophageal reflux disease without esophagitis Esophageal reflux Obesity, Class II, BMI 35-39.9 Obesity, unspecified documented in [facility]* Diagnosis Aftercare following organ transplant- Primary 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 Lung replaced by transplant Encounter for monitoring tacrolimus therapy Encounter for therapeutic drug monitoring Essential hypertension Unspecified essential hypertension Mixed hyperlipidemia Steroid-induced osteopenia Disorder of bone and cartilage, unspecified Gastroesophageal reflux disease without esophagitis Esophageal reflux documented in this encounter [facility]* Diagnosis Aftercare following organ transplant 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 Lung replaced by transplant Encounter for monitoring tacrolimus therapy Encounter for therapeutic drug monitoring Essential hypertension Unspecified essential hypertension Mixed hyperlipidemia Steroid-induced osteopenia Disorder of bone and cartilage, unspecified Gastroesophageal reflux disease without esophagitis Esophageal reflux Obesity, Class II, BMI 35-39.9 Obesity, unspecified documented in this encounter [facility]* Diagnosis Aftercare following organ transplant- Primary 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 Lung replaced by transplant Encounter for monitoring tacrolimus therapy Encounter for therapeutic drug monitoring Essential hypertension Unspecified essential hypertension Mixed hyperlipidemia Steroid-induced osteopenia Disorder of bone and cartilage, unspecified Gastroesophageal reflux disease without esophagitis Esophageal reflux documented in this encounter [facility]* Diagnosis Aftercare following organ transplant- Primary 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 Lung replaced by transplant Encounter for monitoring tacrolimus therapy Encounter for therapeutic drug monitoring Essential hypertension Unspecified essential hypertension Mixed hyperlipidemia Gastroesophageal reflux disease without esophagitis Esophageal reflux Steroid-induced osteopenia Disorder of bone and cartilage, unspecified Obesity, Class II, BMI 35-39.9 Obesity, unspecified Other chronic pain 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) Lung replaced by transplant documented in this encounter [facility]* Diagnosis Aftercare following organ transplant 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 Lung replaced by transplant Encounter for monitoring tacrolimus therapy Encounter for therapeutic drug monitoring Essential hypertension Unspecified essential hypertension Mixed hyperlipidemia Gastroesophageal reflux disease without esophagitis Esophageal reflux Steroid-induced osteopenia Disorder of bone and cartilage, unspecified Obesity, Class II, BMI 35-39.9 Obesity, unspecified Other chronic pain 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) Lung replaced by transplant documented in this [facility]* Diagnosis Aftercare following organ transplant 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 Lung replaced by transplant Encounter for monitoring tacrolimus therapy Encounter for therapeutic drug monitoring Essential hypertension Unspecified essential hypertension Mixed hyperlipidemia Steroid-induced osteopenia Disorder of bone and cartilage, unspecified Gastroesophageal reflux disease without esophagitis Esophageal reflux documented in this encounter [facility]* Diagnosis Aftercare following organ transplant 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 Lung replaced by transplant Encounter for monitoring tacrolimus therapy Encounter for therapeutic drug monitoring Essential hypertension Unspecified essential hypertension Mixed hyperlipidemia Gastroesophageal reflux disease without esophagitis Esophageal reflux Steroid-induced osteopenia Disorder of bone and cartilage, unspecified Obesity, Class II, BMI 35-39.9 Obesity, unspecified Other chronic pain 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) Lung replaced by transplant documented in this encounter [facility]* Diagnosis Aftercare following organ transplant 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 Lung replaced by transplant Encounter for monitoring tacrolimus therapy Encounter for therapeutic drug monitoring Essential hypertension Unspecified essential hypertension Mixed hyperlipidemia Gastroesophageal reflux disease without esophagitis Esophageal reflux Steroid-induced osteopenia Disorder of bone and cartilage, unspecified Obesity, Class II, BMI 35-39.9 Obesity, unspecified Other chronic pain 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) Lung replaced by transplant documented in this encounter [facility] Miscellaneous Notes* Telephone Encounter - DAQUAN Bashir - 07/14/2022 1:24 PM EDT Received a call from pt's that 3 transplant medications will need prior authorization: Tacrolimus, mycophenolate and amphotericin B. Pt is listed for transplant as of today 07/14/2022. Spoke to pt's she is in good spirits and will get a bag packed. No other issues for SW at this time. [phone] John BUTT-S CCTSW [facility] History of Present illness Narrative* Berta Davila RN - 07/14/2022 10:21 AM EDT Mr Angelo was listed today (07/14/22) in [facility] for a double Lung Transplant due to COPD. All the listing information correct and verified in [facility]. ABO confirmed in DONOR NET. Berta Davila RN,BSN Lung Clinical Informatics Spec * Manda Cardenas RN - 07/14/2022 9:03 AM EDT Received insurance approval to list. Patient listed in [facility] today (07/14/22) for DOUBLE LUNG transplant due to COPD. JUDITH 20.3790 - 30.3790 ABO AB / CMV + /EBV +. Discussed with patient that if he/she is hospitalized or started on antibiotics or steroids that hemust notify the lung transplant team. All contact information verified with patient and updated in [employer]. He [place] hours from [facility] and will be able to drive in at the time of tx. He verbalized understanding. Reviewed all relevant listing/updating information with patient. Has received packet outlining listing protocols/LAS/status 7 and what to do at the time of transplant. Verbalizes understanding of alleducation. Patient has consented to HCV organs. Manda Cardenas RN, BSN Lung Clinical Informatics Spec [facility] History of Present illness Narrative* Eileen Cm, [facility] - 06/18/2022 2:39 PM EDT Pharmacist Pre-Transplant Evaluation DI Angelo is a 66 year old male with COPD/A1AT. The patient's medication profile was reviewed and there are no identified medication issues that would preclude transplant in this patient. OARRS review: Reviewed Current Outpatient Rx Medication Sig Dispense Refill azithromycin (ZITHROMAX) 250 mg tablet Take 1 tablet by mouth once daily. 90 tablet 2 montelukast (SINGULAIR) 10 mg tablet Take 1 tablet by mouth once daily. 90 tablet 3 BREO ELLIPTA 200-25 mcg/dose inhaler USE 1 INHALATION BY MOUTH INSTRUCTED ONCE DAILY 180 Each 3 albuterol HFA (VENTOLIN HFA) 90 mcg/actuation inhaler INHALE TWO PUFFS BY MOUTH FOUR TIMES A DAY ASNEEDED 18 g 11 albuterol (PROVENTIL) 2.5 mg /3 mL (0.083 %) nebulizer solution USE 1 VIAL IN NEBULIZER 4 TIMES DAILY 360 mL 11 budesonide (PULMICORT) 0.5 mg/2 mL nebulizer solution Use 2 mL via nebulizer twice daily. 500 mL 2 tiotropium bromide (SPIRIVA RESPIMAT) 2.5 mcg/actuation inhaler Inhale 2 Puffs as instructed once daily. 90 Each 2 predniSONE (DELTASONE) 10 mg tablet Take 2 tablets by mouth as needed (when he feels congested, every few weeks). Take 4 daily for three days, then 3 daily for three days, then 2 daily for three days, then one daily for three days. 30 tablet 3 doxycycline hyclate (VIBRAMYCIN) 100 mg capsule Take 1 capsule by mouth twice daily. 20 capsule 3 traMADol (ULTRAM) 50 mg tablet Take 50 mg by mouth every 4 hours as needed. Eileen Cm, PharmD, [facility] Pharmacy Clinical Specialist - Lung Transplant [facility] History of Present illness Narrative* Jing Stark, Research Coordinator - 06/02/2022 5:08 PM EDT Summary: IRB # [id number] [facility] Lung Transplant Biorepository DI Angelo is here for IRB # [id number] [facility] Lung Transplant Biorepository IRB# [id number] [employer] Molder: Domi Cordoba MD, [facility] and Ajay Jeffrey MD 1. Grey Iron Molder, Research Nurse, and/or Research Coordinator explained the protocol to the subject. Yes 2. Risks,benefits, alternative procedures explained. Yes 3. Reviewed HIPPA disclosure information with the subject. Yes 4. Follow-up requirements explained. Yes 5. Reviewed research related injuries and cost with subject. Yes 6. Subject asked appropriate questions and answers provided to the subject. Yes 7. Subject read and verbally understands informed consent. Yes 8. Subject was given a copy of the signed informed consent. Yes 9. Family present at the time of the consent. patient and family. Yes, 10. Other staff Present at the time of the consent. No Consent Version: [id number] Date Consent Signed: June 02, 2022 DI Angelo was first contacted at their clinic appointment on regarding this study. I reviewed all procedures with the patient. I detailed that this is observational study, the study visits will occur with standard of care visits, the study is not covering the cost of any procedures(lung transplant, bronchoscopy) or tests in the study, participating does not affect whether they will are listed for or receive a lung transplant, and reviewed schedule of study visits/events The risks involved in the study were reviewed including lung biopsy, bronchoscopy, blood draw, and confidentiality.There is no compensation for participating in this study and participating in this study does not increas e or decrease chances of being listed for or receiving a lung transplant. The study length is 36 months after transplant. Patient made aware that they may be contacted approximately every month to ensure that they want to continue to participate in the trial. I asked the subject they would like additional time to consider participating in this trial or if they had any additional questions. DI Angelo stated no and was interested in participating. DI Angelo verbalized understanding and hadno further questions prior to signing the consent. No study procedures occurred prior to signing consent. Total consent time 8 minutes. Jing Stark Research Coordinator [facility] History of Present illness Narrative* Valentina Black RN - 06/02/2022 12:56 PM EDT 06/02/2022 12:56 PM IV Access: IV IV Site: left Forearm IV GAUGE 24 gauge IV Removal Date 06/02/22 Time 1240 Reactions: WNL Order reviewed by nurse:yes Medications: Saline - dosage 10 ml Reaction: No documented in this encounterCleveland [id number] Procedure note* Salinas Rueda - 06/02/2022 12:04 PM EDTAssociated Order(s): SIX MINUTE WALK RESPIRATORY THERAPY SIX MINUTE WALK TEST OXIMETRY REPORT Six Minute Walk Test for This Encounter Oxygen Device Liters FIO2 SpO2% HR Activity Feet Speed (MPH) Flag R/A 92 69 Resting NC 3 97 69 Resting NC 3 99 93 Six Minute Walk 970 1.8 NC 3 100 83 Recovery 1 minute post NC 3 99 79 Recovery 2 minute post NC 3 100 73 Recovery 3 minute post General Information Height Weight Smoking Status Pulse Oximetry Site Oximeter Pre Blood Pressure Post Blood Pressure Total Time Spent (min) 176.5 cm (5' 9.49) 99.6 kg (219 lb 8 oz) Never Forehead Masimo 115/61 142/66 30 _ Distance Walked (meters) Distance Walked (feet) Male Predicted Walk Distance (feet) Male Lower Limit of Normal (feet) Male % Predicted Total Duration Of The Stops (seconds) 295.66 970 1724.41 1222.41 56.3 -- _ Lowest SpO2 During 6 Minute Walk Pre-Ivon Dyspnea Rating Pre-Ivon Fatigue Rating Post Ivon Dyspnea Rating Post Ivon Fatigue Rating O2 Supply Carrier Walking Assistance/Device 97 % 3 0 6 2 3 Wheel Walker 3 Wheel Walker Six Minute Walk Trend (Previous Encounters) Test Date Distance Walked (feet) Oxygen Device Liters FIO2 SpO2% Ivon Dyspnea Rating Ivon Fatigue Rating 02/24/2022 840 NC 3 94 7 7 11/18/2021 890 NC 3 95 5 5 07/22/2021 890 NC 3 94 3 1 04/13/2021 970 NC 3 97 3 3 12/31/2020 910 NC 3 92 8 7 SIGNATURE: Salinas Rueda PATIENT NAME: DI Angelo DATE: June 02, 2022 TIME: 12:05 PM documented in [facility] encounter[facility] History of Present illness Narrative* Salinas Rueda - 06/02/2022 12:01 PM EDT PULM FUNCTION SMARTBLOCK: Provider: Wilbert Umanzor MD Assisting Tech: Sandhya Rendon RRT Spirometry: 1 AB 6 MW: 1 System: 2 - [id number] documented in this encounterCommunity [facility] History of Present illness Narrative* Salinas Choudhary - 06/02/2022 9:55 AM EDT Radiology Service Progress Note PATIENT NAME: DI Angelo DATE OF SERVICE: June 02, 2022 TIME: 10:16 AM PATIENT IDENTITY VERIFICATION COMPLETED USING TWO (2) IDENTIFIERS: Name and Date of confirmedby patient verbally. FALL SCREENING: Has the patient had 2 falls in the last year or 1 fall with injury or currently using an Ambulatory Assistive Device (Walker, Cane, Wheelchair, Crutches, etc.)? Yes, Patient High Riskfor Falls What interventions were put in place to prevent falls during this visit? Yellow Falls Risk Wristband Applied PATIENT GENDER DATA: Male PATIENT RELEVANT IMPLANT DATA REVIEWED: Not Applicable RADIOLOGY DEPARTMENT: General X-ray: Exam(s) Completed: Chest X-Ray PERIPHERAL IV DATA: Not applicable SIGNED BY: Salinas Choudhary June 02, 2022 10:16 AM documented in this encounterCommunity [facility] History and physical note * Darryl Willis MD - 03/17/2022 9:03 AM EST Images from the original note were not included. Virtual visit follow-up Respiratory [place] Consultation requested for an opinion regarding COPD. My final recommendations will be communicatedback to the requesting physician by way of shared Medical record or letter to requesting physician via US mail. 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 Please refer to initial evaluation on 05/20/2021 for full history. At my last visit on 11/18/2021, I noted: ASSESSMENT: Severe COPD Asthma-COPD overlap PI*MZ heterozygote PLAN: LABA/ICS (Breo) daily Nebulized ICS LAMA (Spiriva) Azithromycin Montelukast daily Albuterol nebulizer and inhaler PRN Ongoing evaluation for lung transplantation In the interim, no exacerbations or hospitalizations. On today's visit, he is generally doing better since prior visit. Still dyspnea on exertion, not much cough or wheezing. Is working very hard to lose weight and stay active. Endorses compliance with his airways regimen: - LABA/ICS (Breo) daily - Nebulized ICS - LAMA (Spiriva) - Azithromycin 250 mg daily - Montelukast daily - Albuterol nebulizer and inhaler PRN Etiology and Risk Factors: Smoker (former) PI*MZ heterozygous status Symptom assessment: Objective Findings: Dyspnea GOLD Classification: GOLD 4 Very severe FEV1 < 30% predicted Symptom Dahlgren: Patient Entered Questionnaires COPD Assessment Test (CAT) 07/30/2021 06/24/2021 05/18/2021 Score 34 38 37 Modified Medical Research Lime Dyspnea Scale (MMRC) I stop for breath after walking about 100 yards or after a few minutes on level ground 3 Daily cough: No Daily Sputum: No REVIEW OF SYMPTOMS: GENERAL: No weight loss, malaise or fevers. RESPIRATORY: See HPI CARDIOVASCULAR: Negative for chest pain, leg swelling, hypertension, CHF or palpitations GI: No nausea, vomiting, or diarrhea Video Examination: General appearance: Well appearing, alert, in no acute distress, well-hydrated, well nourished. Resting comfortable with NC and speaking in full sentences without labored breathing DATA REVIEW: Component Latest Ref Rng & Units 05/20/2021 Alpha 1 Antitrypsin 90 - 200 mg/dL 174 FeNO (05/20/21) - 8.0 ppb Spirometry 05/20/21 Ref. Range 04/13/2021 07:06 05/20/2021 11:53 Eosin% Latest Units: % 0.2 2.0 Abs Eosin Latest Ref Range: <0.46 k/uL 0.[address] 04/13/21 RESULT: Lines, tubes, and devices: None. Lung parenchyma and airways: Saber-sheath tracheal morphology with and diffuse bronchial thickening, mild bronchiectasis, emphysema with hyperinflated lucent lungs and mosaic attenuation from chronic small airway inflammation. 10 mm right upper lobe nodule (81) unchanged. Other tiny nodules also unchanged. Pleural space: No pleural effusion. No pleural thickening. Lower neck, lymph nodes, and mediastinum: Calcified nodes in the mediastinum and hilum from old granulomatous disease. No pathologically enlarged nodes. Heart, pericardium, and thoracic vessels: Heart and great vessel size within normal limits. No pericardial effusion. Moderate coronary calcifications. Bones and soft tissues: No destructive bone lesion. Chest wall is unremarkable. Upper abdomen: Calcifications within the from old granulomatous disease. Resource Agent (topogram) images: No additional findings. Spirometry and lung volumes 12/31/20 Component Latest Ref Rng & Units 05/20/2021 05/20/2021 11:53 AM 11:53 AM Elm Tree IgE <0.35 kU/l <0.35 Elm Tree Class Class 0 Class 0 [place] Tree IgE <0.35 kU/l <0.35 [place] Tree Class Class 0 Class 0 Short Ragweed IgE <0.35 kU/l <0.35 Short Ragweed Class Class 0 Class 0 Cat Dander IgE <0.35 kU/l <0.35 Cat Dander Class Class 0 Class 0 D. farinae IgE <0.35 kU/l <0.35 D. farinae Class Class 0 Class 0 Aspergillus fumigatus IgE <0.35 kU/l <0.35 <0.35 Aspergillus fumigatus Class Class 0 Class 0 Class 0 Mountain Juniper IgE <0.35 kU/l <0.35 Mountain Juniper Class Class 0 Class 0 Pigweed IgE <0.35 kU/l <0.35 Pigweed Class Class 0 Class 0 [id number] Thanh Grass <0.35 kU/l <0.35 Thanh Grass Class Class 0 Class 0 White Dhruv Tree IgE <0.35 kU/l <0.35 White Dhruv Tree Class Class 0 Class 0 [place] Tree IgE <0.35 kU/l <0.35 [place] Tree Class Class [address] [place]/Pecan Tree IgE <0.35 kU/l <0.35 [place]ec[place] Tree Class Class 0 Class 0 Alternaria tenuis IgE <0.35 kU/l <0.35 <0.35 Alternaria tenuis Class Class 0 Class 0 Class 0 Mucor racemosus IgE <0.35 kU/l <0.35 <0.35 Mucor racemosus Class Class 0 Class 0 Class 0 [place] Tree IgE <0.35 kU/l <0.35 [place] Tree Class Class 0 Class 0 Cockroach IgE <0.35 kU/l <0.35 Cockroach Class Class 0 Class 0 Rough Alvares Elder IgE <0.35 kU/l <0.35 Rough Alvares Elder Class Class 0 Class 0 Dog Dander IgE <0.35 kU/l <0.35 Dog Dander Class Class 0 Class 0 D. pteronyssinus IgE <0.35 kU/l <0.35 D. pteronyssinus Class Class 0 Class 0 Cladosporium herbarum IgE <0.35 kU/l <0.35 <0.35 Cladosporium herbarum Class Class 0 Class 0 Class 0 [place] Tree IgE <0.35 kU/l <0.35 [place] Tree Class Class 0 Class 0 Ivorian Thistle IgE <0.35 kU/l <0.35 Ivorian Thistle Class Class 0 Class 0 [place] Grass IgE <0.35 kU/l <0.35 [place] Grass Class Class 0 Class 0 P. chrysogenum IgE <0.35 kU/l <0.35 P. chrysogenum Class Class 0 Class 0 [place] Tree IgE <0.35 kU/l <0.35 [place] Tree Class Class 0 Class 0 Solomon IgE <0.35 kU/l <0.35 Solomon Class Class 0 Class 0 Mouse Epithelium IgE <0.35 kU/l <0.35 Mouse Epithelium Class Class 0 Class 0 Coloma IgE <0.35 kU/l <0.35 [place] Class Class 0 Class 0 Jolene albicans IgE <0.35 kU/l <0.35 Jolene albicans Class Class 0 Class 0 Alpha 1 Antitrypsin 90 - 200 mg/dL 174 Alpha-1 Antitryp Interp Alpha-1 Antitrypsin Genotyping . . .PI*MZ ASSESSMENT: COPD Group: B, GOLD Obstruction Grade: IV Asthma-COPD overlap PI*MZ heterozygote PLAN: LABA/ICS (Breo) daily Nebulized ICS LAMA (Spiriva) Azithromycin 250 mg daily Montelukast daily Albuterol nebulizer and inhaler PRN Ongoing evaluation for lung transplantation No role for NIPPV given no hypercapnea Requested to apprise me if hospitalized for consideration of HiFlo in COPD study RTC in 6 months virtually Please do not hesitate to call us with any questions or concerns. Darryl Willis MD [facility] Amount and/or Complexity of Data Reviewed Clinical lab tests: reviewed Tests in the radiology section of CPT : reviewed Tests in the medicine section of CPT : reviewed Risk of Complications, Morbidity, and/or Mortality Presenting problems: moderate Diagnostic procedures: moderate Management options: moderate documented in this encounterCommunity [facility] History of Present illness Narrative* Fidelina Abernathy MD - 03/16/2022 9:00 AM EST NEW VIRTUAL VISIT I had a virtual visit with Mr. Angelo today for hepatitis C positive organ education/consent. HISTORY: previous HCV infection/treatment: no previous gastric bypass surgery (sleeve gastrectomy is acceptable): no medication allergies to DAA or its components: no significant medication interactions, particularly with anti-epileptic medications:no HIV co-infection: no PAST MEDICAL HISTORY Diagnosis Date Asthma Bronchiectasis (HCC) COPD (chronic obstructive pulmonary disease) (HCC) Dependence on supplemental oxygen Heterozygous alpha 1-antitrypsin deficiency (HCC) PiMZ Lung nodule Pain in joint, ankle and foot PAST SURGICAL HISTORY Procedure Laterality Date PAST SURGICAL HISTORY OF 2011 Rt foot reconstruction RPR UMBILICAL HRNA 5 YRS/> REDUCIBLE 07-26-2012 Hernia repair, umbilical >5yr FAMILY HISTORY Problem Relation Age of Onset COPD Mother Heart disease Father Breast Cancer Sister No Known Problems Sister No Known Problems Sister COPD Brother COPD Brother Social History Tobacco Use Smoking status: Former Packs/day: 4.00 Years: 30.00 Pack years: 120.00 Types: Cigarettes Quit date: 2010 Years since quittin.1 Smokeless tobacco: Never Vaping Use Vaping Use: Never used Substance Use Topics Alcohol use: Never Drug use: Never Current Outpatient Medications Medication Sig Dispense Refill montelukast (SINGULAIR) 10 mg tablet Take 1 tablet by mouth once daily. 90 tablet 3 BREO ELLIPTA 200-25 mcg/dose inhaler USE 1 INHALATION BY MOUTH INSTRUCTED ONCE DAILY 180 Each 3 azithromycin (ZITHROMAX) 250 mg tablet Take 1 tablet by mouth once daily. 90 tablet 2 albuterol HFA (VENTOLIN HFA) 90 mcg/actuation inhaler INHALE TWO PUFFS BY MOUTH FOUR TIMES A DAY ASNEEDED 18 g 11 albuterol (PROVENTIL) 2.5 mg /3 mL (0.083 %) nebulizer solution USE 1 VIAL IN NEBULIZER 4 TIMES DAILY 360 mL 11 budesonide (PULMICORT) 0.5 mg/2 mL nebulizer solution Use 2 mL via nebulizer twice daily. 500 mL 2 tiotropium bromide (SPIRIVA RESPIMAT) 2.5 mcg/actuation inhaler Inhale 2 Puffs as instructed once daily. 90 Each 2 predniSONE (DELTASONE) 10 mg tablet Take 2 tablets by mouth as needed (when he feels congested, every few weeks). Take 4 daily for three days, then 3 daily for three days, then 2 daily for three days, then one daily for three days. 30 tablet 3 doxycycline hyclate (VIBRAMYCIN) 100 mg capsule Take 1 capsule by mouth twice daily. 20 capsule 3 traMADol (ULTRAM) 50 mg tablet Take 50 mg by mouth every 4 hours as needed. Current Facility-Administered Medications Medication Dose Route Frequency Provider Last Rate Last Admin perflutren lipid microspheres 1.3 mL in NaCl (PF) 0.9% 10 mL injection (DEFINITY) INTRAVENOUS DIRECTED PRN Wilbert Umanzor MD sodium chloride 0.9 % (flush) 10 mL (BD POSIFLUSH) 10 mL INTRAVENOUS DIRECTED PRN Wilbert Umanzor MD perflutren lipid microspheres 1.3 mL in NaCl (PF) 0.9% 10 mL injection (DEFINITY) INTRAVENOUS DIRECTED PRN Janett Russell, DO sodium chloride 0.9 % (flush) 10 mL (BD POSIFLUSH) 10 mL INTRAVENOUS DIRECTED PRN Janett Russell,DO perflutren lipid microspheres 1.3 mL in NaCl (PF) 0.9% 10 mL injection (DEFINITY) INTRAVENOUS DIRECTED PRN Shukri Juárez MD sodium chloride 0.9 % (flush) 10 mL (BD POSIFLUSH) 10 mL INTRAVENOUS DIRECTED PRN Shukri Juárez MD ALLERGIES Allergen Reactions Penicillins GI Upset REVIEW OF SYSTEMS: PAIN ASSESSMENT: Negative for pain, history of chronic pain, or current treatment for a chronic pain condition. 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, abnormal vaginal discharge MUSCULOSKELETAL: Negative for joint pain or swelling, back pain or muscle pain SKIN: Negative for lesions, rash, and itching ENDOCRINE: Negative for cold or heat intolerance, polyuria, polydipsia and goiter NEURO: No history of headaches, syncope, paralysis, seizures or tremors PHYSICAL FINDINGS OF NOTE: General - Normal, healthy, cooperative, in no acute distress Able to interact verbally by video conference Psych - ORIENTATION: normal to time place, person and situation Mood/Affect: AFFECT AND MOOD: Normal Head/Neuro - Normal size and shape Facial appearance normal Pulmonary - respiratory effort normal Cardiovascular - patient describes extremities normal, warm, no cyanosis,no clubbing, and no edema Abdominal - Not performed Skin - abnormal lesions not visualized Motor - patient seen sitting with Normal appearing strength and coordination Anorectal exam - Not Performed REVIEWED ITEMS Hepatitis serologies reviewed IMPRESSION 66 yo male with COPD + A1AT related lung disease who is undergoing lung transplant evaluation who presents for hepatitis C positive organ education and consent. He is an acceptable candidate for hepatitis C positive organ transplantation. He is already receiving hepatitis B vaccines and should complete this series. Liver enzymes, bilirubin, and PLT count are normal. No INR noted. No dedicated abdominal imaging to review. RECOMMENDATION: Belgica Angelo wishes to pursue the option of obtaining a HCV positive organ. Patient was accompanied by his . Advantages and disadvantages of HCV viremic donor transplantation were reviewed. Patient received education on the risk of transmission of HCV following HCV viremic donor transplantation, the natural history of HCV, current therapies for HCV, side effects of therapy, and need for monitoring during and after therapy for HCV. Provided pt with educational slide packet and handout titled Transplantation of Hepatitis C Viremic Organs into Hepatitis C Negative Recipients. The risks of HCV transmission post-transplant, fibrosing cholestatic HCV, treatment failure, chronic HCV, cirrhosis and hepatic and non-hepatic manifestations of acute and chronic HCV were specifically discussed. Patient and his verbalized understanding of the risks and benefits of receiving a hepatitis C viremic organ, and provided verbal consent to be enrolled in the protocol. All of their questions were answered. I spent more than 30 minutes [id number] with the patient and over half the time was devoted to counseling and/or coordination of care. Fidelina Abernathy MD [facility] History of Present illness Narrative* DAQUAN Bashir - 02/26/2022 7:22 AM EST LUNG TRANSPLANT SOCIAL WORK PROGRESS NOTE VIRTUAL VISIT Name: Belgica Angelo DX: COPD/A1AT Last SW appt: 02/12/2022 Distance from : 1.5 hours lives in [facility] ([place]) From the last appt: He needs to be seen again to discuss fundraising update and pt's discussion with our lung tx volunteer Val Dolan Per Dr. Umanzor note: He will continue weight loss efforts and use the elliptical at home, has the virtual [place] link; he has lost 5# since last visit ; given a weight goal of 220 lb During today's appt there was continued discussion of the transplant medication costs and funding for relocation expenses Emailed pt the [employer] fundraising information after our last appt. Pt and have decided they are not comfortable with fundraising. They will take out a HELOC or borrow from [employer]. They were given a recommended amount of $25k to use for transplant related expenses. Prescription coverage is [employer] eff. 2022 ; has the medication lists and is working on getting prices; so far the posaconazole is $1293 at [facility] and Valcyte is $300. She will check Cora Jaffe and Kamini Mitchell to see if there is a cheaper pharmacy. [facility] and they have the information; emailed it again today. The pt's care team for transplant will be his , their son Pedro Angelo, and good friends Talia Eran and Yessy Canales who would provide transport to appts if needed. Pt and had a phone call with Val Dloan our transplant volunteer per Pat, the pt's did the majority of the talking and it was related to medication costs and affording the medications pt said very little. With my prompting, today pt expressed understanding about infection, rejection, need for medicationfor a lifetime, ongoing blood work and appts. He needs prompting to speak up but is processing information. He understands the need to increase his exercise and weight loss efforts to be a candidate.He felt that his conversation with Val Paul helped with his motivation to do more exercise as he sees how well Val is doing so he was inspired. His tends to answer for him and address any concerns which is important but pt was prompted to be more verbally engaged and he was cooperative. SIPAT :22 Recommendation: Pt needs to be seen again. Signature: Emmie Arias [facility] Date: February 26, 2022 Time: 7:22 AM documented in this encounterCommunity [facility] Instructions* Patient Instructions* Ashley Jin PA-C - 02/25/2022 10:07 AM EST Calcium carbonate 600 mg daily with food. documented in this [facility]Community [facility] History of Present illness Narrative* Ashley Jin PA-C - 02/25/2022 10:03 AM EST Images from the original note were not included. Osteoporosis and Metabolic Bone Disease CONSULTATION Referred by: Wilbert Umanzor MD Date of Service: 02/25/2022 Patient: Belgica Angelo Medical Record: [id number] Primary Care Physician: Aisha Newton MD Last [facility] History of Present Illness Belgica Angelo is a 66 year old White male who presents on 02/25/2022 for an in- person visit for evaluation of Osteopenia. Osteoporosis History Patient has a history of fracture(s) (Comment: Finger and toes) Most Recent BMD Date: 07/22/21 LS T-Score: 1.2 L Hip T-Score: -1.4 VFA: No fracture FRAX 10-year fracture risk: hip: 0.8% FRAX 10-year fracture risk: major osteoporotic: 5.6% Daily Calcium diet: 500 mg Daily Calcium supplementation: 0 mg Daily Vitamin D: 0 IU Current Multivitamin: No Transplant patient: pre transplant evaluation Possible lung transplant due to COPD/A1AT Dental: No planned dental procedures. Last appointment: 2021 Link to FRAX Website RAPID 3 Mejia Activities of Daily Living No Data Dress self? - Get in and out of bed? - Walk outdoors? - Wash and dry body? - Get in and out of car? - Tobacco Use Former; Cigarettes: Quit 2010; 4.00 packs/day for 30.00 years Smokeless Tobacco: Never used smokeless tobacco. Tobacco Cessation: Counseling given: Not Answered Vaping Use Never used Alcohol Use Never. TREATMENT HISTORY Osteoporosis - Antiresorptive Treatments Treatment Start Date Stop Date Stop Reason Comment None Osteoporosis - Anabolic Treatments Treatment Start Date Stop Date Stop Reason Comment None History of Radiation: No RISK FACTORS Osteoporosis FRAX Risk Factors Fracture(s) (Comment: Finger and toes) No family history of osteoporosis No parent with a hip fracture Not a current smoker (Comment: Quit in 2009) Glucocorticoid use (Comment: Short courses for illness or flares. Only about 3x in the past year) Previous use No rheumatoid arthritis No alcohol use more than 3 units per day Osteoporosis Disease-Specific Risk Factors Weight is not less than 127 lbs Height loss 1 inch normal balance No fall history No history of eating disorders No history of renal calculi Chronic kidney disease Caffeine intake: 1-3 c/day Exercise routine: minimal exercise Types of exercise: walking (Comment: walks once weekly) BONE DENSITY RESULTS Last Bone Density DXA-AXIAL SKELETON WITH VFA Exam End: 07/22/2021 9:38 AM (Final result) Narrative: * * *Final Report* * * DATE OF EXAM: Jul 22 2021 9:38AM [facility] [place] 0802 - BD VFA WITH DXA - AXIAL SKELETON / PROCEDURE REASON: multiple diagnoses * * * * Physician Interpretation * * * * EXAMINATION: DXA BONE DENSITOMETRY BD VFA WITH DXA - AXIAL SKELETON PATIENT DEMOGRAPHICS: Age: 65 years, Race: , Gender: Male SCANNER INFORMATION: DXA Model: A21 [employer] (S/N: [id number]) Site Scanned: Lumbar Spine, Left Hip, & VFA Date Scanned: 07/22/2021 9:38 AM CLINICAL HISTORY: DIAGNOSTIC Encounter for pre-transplant evaluation for lung transplant Lung transplant candidate 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 RISK FACTORS FOR OSTEOPOROSIS AND ASSOCIATED FRACTURES REPORTED BY THIS PATIENT: current corticosteroid therapy CURRENT THERAPY: None TECHNICAL LIMITATIONS: Degenerative disease of the spine RESULTS: Lumbar spine (L1-L4): 1.361 g/cm2, T-score 1.2, Z-score 0.9 Left Femoral Neck: 0.887 g/cm2, T-score -1.4, Z-score -0.8 Left Total Hip: 0.939 g/cm2, T-score -1.1, Z-score -1.0 VERTEBRAL FRACTURE ASSESSMENT Indication for VFA: Organ transplant patients. Levels visualized: T4-L5 Results: No fracture identified. Presence of a single vertebral fracture increases subsequent global fracture risk, multiple fractures significantly increase fracture risk. Impression: IMPRESSION: THE LOWEST T-SCORE IS -1.4 IN THE LEFT HIP 1) DIAGNOSIS (based on BMD alone): OSTEOPENIA Caution: Medical conditions other than osteoporosis may cause low bone density, such as osteomalacia or renal osteodystrophy. Clinical correlation is necessary. 2) FRACTURE RISK (based on FRAX): 10-year absolute fracture risk: - major osteoporotic fracture = 5.6 % - hip fracture = 0.8 % - A 10 year probability of hip fracture greater than or equal to 3% or a 10 year probability of any major osteoporosis-related fracture greater than or equal to 20% should be considered for treatment. - DXA scanner generated FRAX calculations may slightly differ from online FRAX calculations due to differences in software versions. - All recommendations and calculations are to be considered as guidelines and should not replace sound clinical judgement - Caution: Fracture risk may be increased independent of BMD in patients with corticosteroid use, age greater than 65 years, or a history of prior fragility fracture. RECOMMENDATIONS: All patients should receive the recommended daily allowance of calcium and vitamin D, as clinically indicated. Weight bearing exercises and strength training should be considered. Cessation of smoking and moderation of intake of alcohol, caffeine and carbonated beverages are recommended. NOF treatment recommendations (2008) Postmenopausal women and men age 50 and older presenting with the following should be treated: A hip or vertebral (clinical or morphometric) fracture T-score less than or equal to -2.5 at the femoral neck, total hip or spine after appropriate evaluation to exclude secondary causes Adult patients being treated with corticosteroids should be protected from bone loss and fracture risk (see ACR guidelines). Pharmacologic therapy may be necessary in high risk patients for the prevention and treatment of steroid induced bone loss. Additional information on the [place] College of Rheumatology 2017 Recommendations for the Prevention and Treatment of Glucocorticoid-Induced Osteoporosis are available through the journal Arthritis & Rheumatology Vol. 69, No.8, September 2016, pp 1521. These changes may be revised, please refer to www.rheumatology.org for updated recommendations. Follow-up in 2 years or as clinically indicated. Patients that are taking corticosteroids, are transplant recipients or have hyperparathyroidism should have annual follow-up. Follow-up scans should always be done on the same machine for accurate comparison. FOR MORE INFORMATION: [facility] [place] Center for Osteoporosis and Metabolic Bone Disease: www.ccf.org/arthritis/osteo National Osteoporosis Foundation: www.nof.org International Society of Clinical Densitometry www.iscd.org Hydropress Operator: findin Transcribe Date/Time: Jul 22 2021 10:07A Dictated by : CHARLENE ELAM MD This examination was interpreted and the report reviewed and electronically signed by: CHARLENE ELAM MD on Jul 22 2021 10:24AM EST BONE DENSITY RESULTS: EXTERNAL RELEVANT PREVIOUS INVESTIGATIONS Calcium Latest Ref Rng & Units 07/22/2021 11/18/2021 02/23/2022 02/24/2022 CA 8.5 - 10.2 mg/dL 9.6 9.1 9.5 9.3 Alkaline Phosphatase Latest Ref Rng & Units 05/20/2021 07/22/2021 11/18/2021 02/24/2022 ALKPHOS 38 - 113 U/L 90 85 85 77 ALKALINE PHOSPHATASE 38 - 113 U/L 90 85 85 77 TSH Latest Ref Rng & Units 04/13/2021 TSH 0.270 - 4.200 mIU/L 0.478 Creatinine Latest Ref Rng & Units 07/22/2021 11/18/2021 02/23/2022 02/24/2022 CREAT 0.73 - 1.22 mg/dL 0.50(L) 0.57(L) 0.51(L) 0.54(L) Protein, Total Latest Ref Rng & Units 05/20/2021 07/22/2021 11/18/2021 02/24/2022 PTH 15 - 65 pg/mL - - - - TPROT 6.3 - 8.0 g/dL 6.9 6.8 6.9 6.6 Albumin Latest Ref Rng & Units 05/20/2021 07/22/2021 11/18/2021 02/24/2022 ALB 3.9 - 4.9 g/dL 4.5 4.1 4.3 4.1 PTH Latest Ref Rng & Units 04/13/2021 PTH, INTACT 15 - 65 pg/mL 50 Hepatitis Screen Latest Ref Rng & Units 04/13/2021 11/18/2021 HEPAIGG Negative - Positive(A) HEPBCOTOL Negative Negative - HEPSABQ Negative Negative - HEPCABEIA Negative Negative - HBSAG Negative Negative - Patient-Entered Data PAIN EVALUATION No data found in the last 1 encounters. PROMIS Assessments PROMIS Assessments 03/31/2021 03/31/2021 06/24/2021 Physical Health Percentile 4 % 4 % 1 % Mental Health Percentile 9 % 9 % 2 % Pain Score 3 3 2 RAPID 3 Mejia Activities of Daily Living No Data Dress self? - Get in and out of bed? - Walk outdoors? - Wash and dry body? - Get in and out of car? - RAPID 3 Disease Activity Weighed Score Levels: 0 - 1: Near Remission 1.3 - 2.0: Low Severity 2.3 - 4.0: Moderate Severity 4.3 - 10.0: High Severity No flowsheet data found. PHQ-9 0 - 4: Minimal Depression 5 - 9: Mild Depression 10 - 14: Moderate Depression 15 - 19: Moderately Severe Depression 20 - 27: Severe Depression No flowsheet data found. Review of Systems Review of Systems CONSTITUTION: Negative for: Fever and Recent weight change HEENT: Negative for: Trouble swallowing RESPIRATORY: Positive for: Shortness of breath Negative for: Cough and Pain with breathing GASTROINTESTINAL: Negative for: Heartburn MUSCULOSKELETAL: Negative for: Arthralgias, Myalgias and Muscle weakness NEUROLOGICAL: Negative for: Headaches SKIN: Negative for: Rash EYES: CARDIOVASCULAR: Negative for: Chest pain and Leg swelling GENITOURINARY: HEMATOLOGIC/LYMPHATIC: Jaw pain: No All other reviewed and negative other than HPI. Past Medical History PAST MEDICAL HISTORY Diagnosis Date Asthma Bronchiectasis (HCC) COPD (chronic obstructive pulmonary disease) (HCC) Dependence on supplemental oxygen Heterozygous alpha 1-antitrypsin deficiency (HCC) PiMZ Lung nodule Pain in joint, ankle and foot Past Surgical History PAST SURGICAL HISTORY Procedure Laterality Date PAST SURGICAL HISTORY OF 2011 Rt foot reconstruction RPR UMBILICAL HRNA 5 YRS/> REDUCIBLE 07-26-2012 Hernia repair, umbilical >5yr Family History FAMILY HISTORY Problem Relation Age of Onset COPD Mother Heart disease Father Breast Cancer Sister No Known Problems Sister No Known Problems Sister COPD Brother COPD Brother Social History Social History Tobacco Use Smoking status: Former Packs/day: 4.00 Years: 30.00 Pack years: 120.00 Types: Cigarettes Quit date: 2010 Years since quittin.0 Smokeless tobacco: Never Vaping Use Vaping Use: Never used Substance Use Topics Alcohol use: Never Drug use: Never Current Medications Present Osteoporosis Medications: Current Outpatient Medications Medication Sig montelukast (SINGULAIR) 10 mg tablet Take 1 tablet by mouth once daily. BREO ELLIPTA 200-25 mcg/dose inhaler USE 1 INHALATION BY MOUTH INSTRUCTED ONCE DAILY azithromycin (ZITHROMAX) 250 mg tablet Take 1 tablet by mouth once daily. albuterol HFA (VENTOLIN HFA) 90 mcg/actuation inhaler INHALE TWO PUFFS BY MOUTH FOUR TIMES A DAY ASNEEDED albuterol (PROVENTIL) 2.5 mg /3 mL (0.083 %) nebulizer solution USE 1 VIAL IN NEBULIZER 4 TIMES DAILY budesonide (PULMICORT) 0.5 mg/2 mL nebulizer solution Use 2 mL via nebulizer twice daily. tiotropium bromide (SPIRIVA RESPIMAT) 2.5 mcg/actuation inhaler Inhale 2 Puffs as instructed once daily. predniSONE (DELTASONE) 10 mg tablet Take 2 tablets by mouth as needed (when he feels congested, every few weeks). Take 4 daily for three days, then 3 daily for three days, then 2 daily for three days, then one daily for three days. doxycycline hyclate (VIBRAMYCIN) 100 mg capsule Take 1 capsule by mouth twice daily. traMADol (ULTRAM) 50 mg tablet Take 50 mg by mouth every 4 hours as needed. Current Facility-Administered Medications Medication Dose Route Frequency perflutren lipid microspheres 1.3 mL in NaCl (PF) 0.9% 10 mL injection (DEFINITY) INTRAVENOUS DIRECTED PRN sodium chloride 0.9 % (flush) 10 mL (BD POSIFLUSH) 10 mL INTRAVENOUS DIRECTED PRN perflutren lipid microspheres 1.3 mL in NaCl (PF) 0.9% 10 mL injection (DEFINITY) INTRAVENOUS DIRECTED PRN sodium chloride 0.9 % (flush) 10 mL (BD POSIFLUSH) 10 mL INTRAVENOUS DIRECTED PRN Labs Calcium Latest Ref Rng & Units 07/22/2021 11/18/2021 02/23/2022 02/24/2022 CA 8.5 - 10.2 mg/dL 9.6 9.1 9.5 9.3 Alkaline Phosphatase Latest Ref Rng & Units 05/20/2021 07/22/2021 11/18/2021 02/24/2022 ALKPHOS 38 - 113 U/L 90 85 85 77 ALKALINE PHOSPHATASE 38 - 113 U/L 90 85 85 77 TSH Latest Ref Rng & Units 04/13/2021 TSH 0.270 - 4.200 mIU/L 0.478 Creatinine Latest Ref Rng & Units 07/22/2021 11/18/2021 02/23/2022 02/24/2022 CREAT 0.73 - 1.22 mg/dL 0.50(L) 0.57(L) 0.51(L) 0.54(L) Protein, Total Latest Ref Rng & Units 05/20/2021 07/22/2021 11/18/2021 02/24/2022 PTH 15 - 65 pg/mL - - - - TPROT 6.3 - 8.0 g/dL 6.9 6.8 6.9 6.6 Albumin Latest Ref Rng & Units 05/20/2021 07/22/2021 11/18/2021 02/24/2022 ALB 3.9 - 4.9 g/dL 4.5 4.1 4.3 4.1 PTH Latest Ref Rng & Units 04/13/2021 PTH, INTACT 15 - 65 pg/mL 50 Hepatitis Screen Latest Ref Rng & Units 04/13/2021 11/18/2021 HEPAIGG Negative - Positive(A) HEPBCOTOL Negative Negative - HEPSABQ Negative Negative - HEPCABEIA Negative Negative - HBSAG Negative Negative - Imaging Last XR Lumbar Spine - Impression Only No resulted procedures found. Last XR Thoracic Spine - Impression Only No resulted procedures found. Last CT Lumbar Spine - Impression Only No resulted procedures found. Last CT Thoracic Spine - Impression Only No resulted procedures found. Last MRI Lumbar Spine - Impression Only No resulted procedures found. Last MRI Thoracic Spine - Impression Only No resulted procedures found. Health Maintenance ABDOMINAL AORTIC ANEURYSM SCREENING Never done ANNUAL PCP TEAM CHRONIC DISEASE VISIT Never done COLORECTAL CANCER SCREENING Never done HEPATITIS A(3 of 3 - Hep A Twinrix risk 3-dose series) due on 12/22/2021 ADVANCE DIRECTIVE DISCUSSION Never done DEPRESSION ASSESSMENT Never done LUNG CANCER SCREENING due on 11/18/2022 DIABETES SCREEN due on 02/24/2025 LIPID SCREEN due on 04/13/2026 PROSTATE CANCER SCREENING DISCUSSION due on 02/24/2027 DTAP,TDAP,TD(2 - Td or Tdap) due on 04/14/2031 HEPATITIS B Completed ALPHA-1 ANTITRYPSIN DEFICIENCY SCREENING Completed SPIROMETRY Completed INFLUENZA Completed HEPATITIS C SCREENING Completed HIV SCREENING Completed SHINGRIX VACCINE Completed COVID-19 VACCINE Completed PNEUMOCOCCAL: 65+ Completed Physical Exam BP 100/57 Pulse 67 SpO2 99% EYES: MILLY, conjunctiva and sclera normal. THROAT: Normal and no erythema. DENTAL: Normal HEART: RRR with normal S1 and S2 ,no murmurs, no gallops, no JVD appreciated. LUNGS: Clear to auscultation. NEURO: Awake, alert and oriented x 3, 5+/5+ strength, normal gait and no involuntary motions. SKIN: Skin color, texture, turgor normal. No rashes or lesions. Examination of Back: Profile -Dorsal kyphosis TS: No Back Pain: no Balance: -Romberg test: Normal -Single leg balance: Normal Impression & Plan The patient has: osteopenia Patient has a history of fracture(s) (Comment: Finger and toes) Most Recent BMD Date: 07/22/21 LS T-Score: 1.2 L Hip T-Score: -1.4 VFA: No fracture Belgica Angelo is a 66 year old male being evaluated for possible lung transplant due to COPD/A1AT presents today for osteoporosis screening. Patient has never been treated for low bone mass. Calcium intake is inadequate. Osteoporosis FRAX Risk Factors Fracture(s) (Comment: Finger and toes) No family history of osteoporosis No parent with a hip fracture Not a current smoker (Comment: Quit in 2009) Glucocorticoid use (Comment: Short courses for illness or flares. 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 Calcium 1200 to 1500 mg daily recommended- begin calcium carbonate 600 mg daily with food. Weight bearing exercise as tolerated recommended. Fall precautions discussed. Repeat bmd on same machine as prior around 07/2023. Continued f/u with PCP for routine health maintenance advised. My findings and final recommendations will be communicated to the requesting health care provider by way of the shared medical record for internal providers or letter via the [employer] for external providers. Thank you for allowing me to participate in the care of your patient. Orders this visit: Office Visit on 02/25/22 VITAMIN D 25 HYDROXY CONSULT TO ENDO METABOLIC BONE Return in about 1 year (around 02/25/2023). Medical Decision Making: Data: Unique test result(s) reviewed: 2 Unique test(s) ordered: 1 Risk: Low: Low risk from testing/treatment Medical Decision Making Level: 3 - Low Ashley Jin PA-C Date: February 25, 2022 documented in this encounterCommunity [facility] History of Present illness Narrative* Gela Tracey MD - 02/24/2022 8:10 PM EST INFECTIOUS DISEASE INITIAL CONSULT NOTE SERVICE DATE: 02/24/2022 SERVICE TIME: 1500 REASON FOR CONSULT: pre-lung transplant evaluation Subjective HPI: Belgica Angelo who is a 66 year old male PMH COPD with bronchiectasis on supplemental oxygen; obesity (BMI 33) presenting for lung transplant evaluation. Baseline productive cough with dark phlegm, no hemoptysis. Describes 1-2 episodes of bronchitis/pneumonia each year while smoking; now less than 1 episode peryear managed as an outpatient with oral antibiotic therapy (doxycycline)--most recently 10/2021. Takes azithromycin regularly as prophylaxis. History of dental infections, now s/p removal of most teeth. No evidence of active infection. No antibiotic allergies; not allergic to penicillins. Lives in [place]. Traveled to [place], [place], [place], [place], [place]. No TB risk factors. No history. Previously worked on the [employer] and [employer], [employer]. Currently lives with , cat, dog (does not change litter). No outdoor activities. Separate place in [place]. Attempts to avoid campfires, grills. No well water exposures. No other consumption-related exposures. PAST MEDICAL HISTORY Diagnosis Date Asthma Bronchiectasis (HCC) COPD (chronic obstructive pulmonary disease) (HCC) Dependence on supplemental oxygen Heterozygous alpha 1-antitrypsin deficiency (HCC) PiMZ Lung nodule Pain in joint, ankle and foot PAST SURGICAL HISTORY Procedure Laterality Date PAST SURGICAL HISTORY OF 2011 Rt foot reconstruction RPR UMBILICAL HRNA 5 YRS/> REDUCIBLE 07-26-2012 Hernia repair, umbilical >5yr Social History Tobacco Use Smoking status: Former Packs/day: 4.00 Years: 30.00 Pack years: 120.00 Types: Cigarettes Quit date: 2010 Years since quittin.0 Smokeless tobacco: Never Vaping Use Vaping Use: Never used Substance Use Topics Alcohol use: Never Drug use: Never FAMILY HISTORY Problem Relation Age of Onset COPD Mother Heart disease Father Breast Cancer Sister No Known Problems Sister No Known Problems Sister COPD Brother COPD Brother Immunization History Administered Date(s) Administered COVID-19 booster vaccine, age 12+ yr, bivalent (Identiv) 11/18/2021 COVID-19 original vaccine, full dose, monovalent (MODERNA) 04/10/2020 05/08/2020 12/12/2020 Hep A & Hep B Combined 04/13/2021 07/22/2021 Hepatitis B Adult 02/24/2022 Influenza Seasonal Inj Quad Age 6 Mo - 64 Yrs 12/20/2019 Influenza Seasonal Inj Quad Age 6 Mo-64 Yrs Pres Free 02/03/2016 Influenza Seasonal Recombinant Quadrivalent Pres Free 11/16/2018 11/20/2020 Influenza Vaccine, Split-Non Spec 10/26/2016 Tdap (Age 7+) 04/13/2021 Zostavax 10/26/2016 Zoster Recombinant (Shingrix) 11/16/2018 04/19/2019 influenza, high-dose, quadrivalent vaccine (FLUZONE HIGH DOSE QUADRIVALENT) 11/18/2021 pneumococcal (PCV20) vaccine, 20 valent (PREVNAR 20) 07/22/2021 Current Facility-Administered Medications Medication Dose Route Frequency Active Antimicrobials (From admission, onward) None ALLERGIES Allergen Reactions Penicillins GI Upset REVIEW OF SYSTEMS: See HPI A complete review of systems was preformed and all others were negative. Objective PHYSICAL EXAM: There were no vitals taken for this visit. Nad conversant supplemental oxygen requirements noted wheelchair No scleral icterus No thrush or oral sores No cervical lad Decreased breath sounds anteriorly Rrr Soft, nt No edema No rashes No central lines Hardware in right foot, never infected Lines, Drains, and Airways None DATA: Diagnostic tests reviewed for today's visit: Most recent labs and imaging results. CBC: Lab Results Component Value Date HB 12.9 02/24/2022 HCT 42.2 02/24/2022 WBC 9.05 02/24/2022 AUTODIFF: Lab Results Component Value Date RBC 4.76 02/24/2022 MCV 88.7 02/24/2022 MCH 27.1 02/24/2022 MCHC 30.6 02/24/2022 RDWCV 13.1 02/24/2022 PLT 262 02/24/2022 MPV 10.7 02/24/2022 NEUTP 68.9 02/24/2022 ABSNEUT 6.23 02/24/2022 LYMPHP 20.1 02/24/2022 ABSLYMPH 1.82 02/24/2022 ABSMONO 0.69 02/24/2022 ABSEOSIN 0.23 02/24/2022 BASOP 0.7 02/24/2022 ABSBASO 0.06 02/24/2022 UA: Lab Results Component Value Date PH 7.436 02/24/2022 CMP: Lab Results Component Value Date ALB 4.1 02/24/2022 CA 9.3 02/24/2022 TBILI 1.3 02/24/2022 ALKPHOS 77 02/24/2022 AST 19 02/24/2022 GLUC 153 02/24/2022 BUN 10 02/24/2022 CREAT 0.54 02/24/2022 NA 140 02/24/2022 K 3.9 02/24/2022 CHLOR 103 02/24/2022 CO2 27 02/24/2022 ANION 10 02/24/2022 ALT 19 02/24/2022 WSR: No results found for: WSR Serologies: Positive: cmv, ebv, measles, varicella, hav Negative: hiv, hbv, hcv, syphilis, toxo, tb Impression/Recommendations Belgica Angelo who is a 66 year old male PMH COPD with bronchiectasis on supplemental oxygen and prophylactic azithromycin; obesity (BMI 33) presenting for lung transplant evaluation. No evidence of active infection. No significant infectious disease history. No antibiotic allergies; not allergic to penicillin--just GI intolerance. Amenable to future use ofpenicillins. Cautioned to avoid campfires and grills, no other significant exposures. No ID contraindications to lung transplantation. Perioperative antibiotics per protocol. UTD on vaccinations. Repeat HBsAB in 1 month to confirm immunity (just received HBV vaccine 02/24/2022). Added strongyloides serologies on the basis of travel history. Ordered sputum sample. SIGNATURE: Gela Tracey MD PATIENT NAME: Belgica Angelo DATE: February 25, 2022 TIME: 8:10 PM documented in this encounterCommunity [facility]01-[facility] History of Present illness Narrative* Mu Miller MD, PhD - 02/24/2022 4:13 PM EST Lung Transplant Surgery Staff Note Referring MD Dr. Wilbert Asif [address] [place] [address] HPI Asked to conuslt regarding lung transplant candidacy. Mr. Belgica Angelo is a 66 yo M from [place], [place] with primary diagnosis of COPD/A1AT. Former smoker diagnosed with COPD in 2011, on O2 since 2012 Notes progressive SONG with limited ability for AODL Takes 20-30 mg prednisone prn congestion (estimated ~3-4/12 months during the year) On 3L O2 with rest, 5L with activity. Completed pulmonary rehab so no longer enrolled. No hx of pneumothorax/pleurodesis. 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 BREO ELLIPTA 200-25 mcg/dose inhaler USE 1 INHALATION BY MOUTH INSTRUCTED ONCE DAILY azithromycin (ZITHROMAX) 250 mg tablet Take 1 tablet by mouth once daily. albuterol HFA (VENTOLIN HFA) 90 mcg/actuation inhaler INHALE TWO PUFFS BY MOUTH FOUR TIMES A DAY ASNEEDED albuterol (PROVENTIL) 2.5 mg /3 mL (0.083 %) nebulizer solution USE 1 VIAL IN NEBULIZER 4 TIMES DAILY budesonide (PULMICORT) 0.5 mg/2 mL nebulizer solution Use 2 mL via nebulizer twice daily. tiotropium bromide (SPIRIVA RESPIMAT) 2.5 mcg/actuation inhaler Inhale 2 Puffs as instructed once daily. predniSONE (DELTASONE) 10 mg tablet Take 2 tablets by mouth as needed (when he feels congested, every few weeks). Take 4 daily for three days, then 3 daily for three days, then 2 daily for three days, then one daily for three days. doxycycline hyclate (VIBRAMYCIN) 100 mg capsule Take 1 capsule by mouth twice daily. traMADol (ULTRAM) 50 mg tablet Take 50 mg by mouth every 4 hours as needed. PFT: 02/24/22: SPIROMETRY FVC (L) 3.00 3.27 4.35 5.45 68 FEV1 (L) 0.83 2.46 3.33 4.15 24 FEV1/FVC 0.28 0.64 0.77 0.88 35 PEF L/s (L/sec) 2.56 6.39 8.68 10.96 29 FEF50 (L/sec) 0.27 2.02 4.14 6.26 6 PFT: 11/18/21: Pred LLN ULN Actual %Pred FVC (L) 4.36 3.28 5.46 2.51 57 FEV1 (L) 3.34 2.47 4.16 0.82 24 FEV1/FVC 0.77 0.64 0.88 0.33 42 PFT: 04/13/21 Pred LLN ULN Actual %Pred SPIROMETRY FVC (L) 4.39 3.31 5.48 3.48 79 FEV1 (L) 3.36 2.49 4.19 1.12 33 FEV1/FVC 0.77 0.64 0.88 0.32 41 FEF25 (L/sec) 0.88 FEF50 (L/sec) 4.17 2.05 6.30 0.39 9 FEF75 (L/sec) 0.78 0.30 1.90 0.24 30 MLF54-01 (L/sec) 2.70 1.26 4.68 0.33 12 PEF L/s (L/sec) 8.75 6.47 11.03 3.41 38 FIVC (L) 3.36 FIF50 (L/sec) 2.98 PIF (L/sec) 3.81 Time (sec) 15.94 SARANYA (L) 0.02 FET PEF (sec) 0.04 LUNG VOLUMES SVC (L) 4.39 3.31 5.48 3.60 82 IC (L) 2.92 1.92 65 ERV (L) 1.46 0.78 53 TGV (L) 3.62 2.44 4.80 5.87 162 RV (Pleth) (L) 2.31 1.69 2.92 5.22 226 TLC (Pleth) (L) 6.91 5.60 8.21 8.12 117 RV/TLC (Pleth) (%) 34 27 41 64 189 DIFFUSION DLCOunc (ml/min/mmHg) 27.19 17.25 37.12 16.15 59 DLunc/VA (ml/min/mmHg 4.13 2.93 5.34 3.25 78 ABG 02/24/22: 7.44/45/56 11/18/21: 7.40/53/52 07/22/21: 7.41/44/55 04/13/21: 7.42/44/59 6 minute walk 02/24/22: 840 ft on 3L NC desat to 94% 11/18/21: 890 ft on 3LNC desat to 95% 07/22/21: 890 ft on 3 L desat to 94% 04/13/21: 970 ft on 3L desat to 97% CXR: 02/24/21 IMPRESSION: 1. Right middle lobe atelectasis, new/worse since prior exam. Radiographic follow-up is recommended to assess stability/resolution. 2. Radiographic findings consistent with air trapping and/or bronchial wall thickening. Patient's known right upper lobe nodule is not well evaluated on this examination. CT SCAN: 11/18/21 IMPRESSION: 1. Diffuse bronchial wall thickening is present bilaterally associated with mucoid impacted bronchi. There are new clustered centrilobular nodules bilaterally, suggestive of either an infectious/inflammatory bronchiolitis and/or mucoid impaction. The lungs remain hyperinflated, likely due to underlying emphysema/air trapping. 2. Stable 11 x 8 mm right upper lobe pulmonary nodule since the chest CT dated 04/10/2020, probably benign given stability although should be assessed on follow-up. 3. No thoracic lymphadenopathy. Dictated by : OUSMANE DEL RIO MD Aorta-only trace calcification in descending aorta CAROTID ULTRASOUND: 04/14/21 RIGHT SIDE: Internal carotid artery: 60-79% stenosis. NOTE: CCA/ICA ratio of great than 4.0 may suggest a greater than 70% stenosis. Vertebral artery: Patent and antegrade flow noted. LEFT SIDE: Internal carotid artery: 40-59% stenosis. Tortuous vessel at proximal . Degree of stenosis most likely overestimated. Vertebral artery: Patent and antegrade flow noted. PVR: 04/14/21 RIGHT SIDE: Normal at rest. LEFT SIDE : Normal at rest. VQ SCAN: 07/28/21 Total pulmonary perfusion to the right lun%. Total pulmonary perfusion to the left lun%. EKG: NORMAL SINUS RHYTHM ECHO: 04/13/21 RIGHT VENTRICLE The right ventricle is normal in size. Right ventricular systolic function is normal. RV systolic tissue Doppler velocity is 11.6 cm/s. Tricuspid annular displacement is 2.5 cm. Estimated right ventricular systolic pressure is 12 mmHg consistent with normal pulmonary artery pressures. Estimated right atrial pressure is 8 mmHg based on IVC assessment. TRICUSPID VALVE The tricuspid valve leaflets are structurally normal. There is trace tricuspid valve regurgitation. The hepatic venous pattern showed normal systolic flow. CONCLUSIONS: - Technically difficult exam due to lung interference. - Exam indication: Pre-evaluation lung transplant - The left ventricle is normal in size. Left ventricular systolic function is normal. EF = 61 5% (2D biplane) - The right ventricle is normal in size. Right ventricular systolic function is normal. - AV leaflets best visualized from subcostal window. -No significant valvular abnormalities. - Exam was compared with the prior echocardiographic exam performed on 01/19/2021. Similar findings. RIGHT/LEFT HEART CATH: Impression: 1. Normal coronary arteries without epicardial disease, right dominant system RHC: RA mean 12, RV 54/12, PA 54/28 (mean 37), PCWP mean 20. Simi CO/CI: 6.5/2.9 PVR 2.6 TPG 17 COLONOSCOPY: 01/30/13 ([facility]) Rectal mucosa normal. Grade 1 internal hemorrhoids. Ileum normal, mucosal and submucosal vascular patter throughout the colon was normal. No polyp or mass identified, no inflammatory changes. ESOPHAGEAL MONOMETRY: 07/22/21 Interpretation / Findings LES: Normal resting pressure, complete relaxation Body of the esophagus (supine): --7 swallows with normal peirstalsis --3 swallows with hypertensive peristalsis PH PROBE: 07/22/21 Interpretation / Findings Normal study. SI shows negative corrleation to Cough:0/3. GASTRIC EMPTYIN07/23/21 IMPRESSION: NORMAL RATE OF GASTRIC EMPTYING OF SOLID MEAL. BONE DENSITY: 07/22/21 THE LOWEST T-SCORE IS -1.4 IN THE LEFT HIP BMI: 33.6 ABO: AB CMV: Positive EBV: Positive PRA: 11/18/21 ANTIBODY SUMMARY: Serum date: 11/18/2021 Combined Class I & II cPRA: 0 Combined Strong Class I & II cPRA: 0 Class I cPRA: 0 Class I specificities: none Strong Class I cPRA: 0 Strong Class I specificities: none Class II cPRA: 0 Class II specificities: DQA1*02:01 Strong Class II cPRA: 0 Strong Class II specificities: none Comments: Partial reactivity to DQ2, DQ4, DQ7, DQ8, DQ9 FINAL REVIEW BY: Dave Finn 11/20/2021 PRA: 07/22/21 Class I cPRA: 0 Class II cPRA: 0 Class II specificities: DQA1*02:01 Comments: Mixed reactions with DQ2, DQ4, DQ7, DQ8, DQ9 result in DQA1*02:01 antibody PRA: 04/13/21 Class I cPRA: 0 Class II cPRA: 0 Class II specificities: DQA1*02:01 PE 66 yo M in NAD BMI ~33-34 Height 5'9.5 Adequate strength Impression: Mr. 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 Moderate R ICA stenosis noted-no symptoms or history of CVA or TIA. No anatomic surgical barriers to double lung transplant Main concern is elevated BMI, agree with goal BMI ~32 Case will be discussed further at [facility]. If patient listed for double lung transplant, given patient height 5' 9.5, suggest donor height range of 5'10-6'4. Mu Miller MD Time spent=30 minutes, with >50% time spent counseling. documented in this encounterCommunity [facility]01-18-[facility]23 Instructions* Patient Instructions* Wilbert Umanzor MD - 02/24/2022 2:26 PM EST [email or web address] [facility] documented in this encounterCommunity [facility]01-18-[facility]23 History of Present illness Narrative* Wilbert Umanzor MD - 02/24/2022 1:06 PM EST 66 yo male is coming in on 02/24/22 for followup for lung transplant due to COPD/A1AT. INTERVAL HISTORY: Since last visit on 11/18/21, he has not had any hospitalizations. Around Thanksgiving he had a viral illness but was treated with prednisone and antibiotics. He is currently not on prednisone. Overall he feels like is breathing is a bit worse since last visit. Certain smells make it very hard to breathe. In the morning he notices increased SOB as he tries to start the day. He feels that it is taking longer to recover from episodes of dyspnea. He denies cough, fevers, syncope, chest pain or pressure, or LE edema. He is not enrolled in pulmonary rehab. He tries to use the exercise bike at [facility]. He has lost 6 lbs last visit with current BMI 33.58. HPI from initial eval by on 04/13/21: Mr. Angelo is a 65 year man w COPD/A1AT deficiency on replacement therapy who presents with compliant of progression of dyspnea. He is more SOB with less activity, interfering with ADL. He has required more frequent courses of steroids which improves his SOB and endurance. No chronic cough, sputum p roduction, wheezing. Seems to be more sensitive to odors and fumes which causes immediate SOB and feeling of chest constriction. In response, he stopped using wood burner to heat his home. Cannot usescented soaps, detergents etc. Due to his increased dyspnea, he is asking about lung transplantation or endobronchial valve for LVRS. Transplant candidacy has been addressed in the past which was contraindicated due to obesity. He has not made any effort to lose weight due to dyspnea. Patient has significant air-trapping from COPD but does not have significant emphysema so [place] valve has been deemed not indicated. His disease course includes dx with COPD 2011 . Patient began to use supplemental 2012. Patient has been hospitalized never been or intubated or with MICU admission. Patient denies syncope, lightheadness, LE edema or other RHF symptoms. Patient currently 20 mg of prednisone when he feels congested ( few times a month). He estimates being on steroids approximately 4 months out of the year. He uses a percussion vest to help bring up sputum. Current the patient is able to complete ADl's but is getting harder, getting more SOB. He is using O2 3L with rest and 4L with activity, and 3L with sleep. He is enrolled in pulmonary rehab 3 x week. PMHx COPD Bronchiectasis A1AT on augmentation therapy (proteinase inhibitor once/week) lung nodules neuropathy right foot no DM no CPAP or BIPAP no transfusions needs some assistance with ADL at rest based on ATS protocol Sp02 94 % on RA PSurHx right foot hernia repair PATIENT TRANSPLANT KARNOFSKY INDEX AND LANSKY SCALE 60% - Cares for self: unable to carry on normal activity or active work. ALLERGIES: Penicillins MEDICATIONS: Current Outpatient Medications Medication Sig Dispense Refill montelukast (SINGULAIR) 10 mg tablet Take 1 tablet by mouth once daily. 90 tablet 3 BREO ELLIPTA 200-25 mcg/dose inhaler USE 1 INHALATION BY MOUTH INSTRUCTED ONCE DAILY 180 Each 3 azithromycin (ZITHROMAX) 250 mg tablet Take 1 tablet by mouth once daily. 90 tablet 2 albuterol HFA (VENTOLIN HFA) 90 mcg/actuation inhaler INHALE TWO PUFFS BY MOUTH FOUR TIMES A DAY ASNEEDED 18 g 11 albuterol (PROVENTIL) 2.5 mg /3 mL (0.083 %) nebulizer solution USE 1 VIAL IN NEBULIZER 4 TIMES DAILY 360 mL 11 budesonide (PULMICORT) 0.5 mg/2 mL nebulizer solution Use 2 mL via nebulizer twice daily. 500 mL 2 tiotropium bromide (SPIRIVA RESPIMAT) 2.5 mcg/actuation inhaler Inhale 2 Puffs as instructed once daily. 90 Each 2 predniSONE (DELTASONE) 10 mg tablet Take 2 tablets by mouth as needed (when he feels congested, every few weeks). Take 4 daily for three days, then 3 daily for three days, then 2 daily for three days, then one daily for three days. 30 tablet 3 doxycycline hyclate (VIBRAMYCIN) 100 mg capsule Take 1 capsule by mouth twice daily. 20 capsule 3 traMADol (ULTRAM) 50 mg tablet Take 50 mg by mouth every 4 hours as needed. Current Facility-Administered Medications Medication Dose Route Frequency Provider Last Rate Last Admin perflutren lipid microspheres 1.3 mL in NaCl (PF) 0.9% 10 mL injection (DEFINITY) INTRAVENOUS DIRECTED PRN Janett Russell, DO sodium chloride 0.9 % (flush) 10 mL (BD POSIFLUSH) 10 mL INTRAVENOUS DIRECTED PRMarco Russell,DO perflutren lipid microspheres 1.3 mL in NaCl (PF) 0.9% 10 mL injection (DEFINITY) INTRAVENOUS DIRECTED PRMarco Juárez MD sodium chloride 0.9 % (flush) 10 mL (BD POSIFLUSH) 10 mL INTRAVENOUS DIRECTED PRMarco Juárez MD SOCIAL WORK COMMENTS: 03/01/22 with Emmie Ladd SOCIAL WORK COMMENTS: 04/14/21 with Emmie Ladd SIPAT: 22 RECOMMENDATION: He needs to be seen again re: social supports, progress on weight loss and motivation for transplant. Per chart review data available for review includes: PFT: 02/24/22 Pre LLN Pred ULN %Pred SPIROMETRY FVC (L) 3.00 3.27 4.35 5.45 68 FEV1 (L) 0.83 2.46 3.33 4.15 24 FEV1/FVC 0.28 0.64 0.77 0.88 35 PFT: 11/18/21 Pred LLN ULN Actual %Pred FVC (L) 4.36 3.28 5.46 2.51 57 FEV1 (L) 3.34 2.47 4.16 0.82 24 FEV1/FVC 0.77 0.64 0.88 0.33 42 PFT: 07/22/21 Pred LLN ULN Actual %Pred FVC (L) 4.38 3.30 5.47 2.87 65 FEV1 (L) 3.35 2.48 4.18 0.91 27 FEV1/FVC 0.77 0.64 0.88 0.32 41 PFT: 04/13/21 Pred LLN ULN Actual %Pred SPIROMETRY FVC (L) 4.39 3.31 5.48 3.48 79 FEV1 (L) 3.36 2.49 4.19 1.12 33 FEV1/FVC 0.77 0.64 0.88 0.32 41 FEF25 (L/sec) 0.88 FEF50 (L/sec) 4.17 2.05 6.30 0.39 9 FEF75 (L/sec) 0.78 0.30 1.90 0.24 30 ISE65-68 (L/sec) 2.70 1.26 4.68 0.33 12 PEF L/s (L/sec) 8.75 6.47 11.03 3.41 38 FIVC (L) 3.36 FIF50 (L/sec) 2.98 PIF (L/sec) 3.81 Time (sec) 15.94 SARANYA (L) 0.02 FET PEF (sec) 0.04 LUNG VOLUMES SVC (L) 4.39 3.31 5.48 3.60 82 IC (L) 2.92 1.92 65 ERV (L) 1.46 0.78 53 TGV (L) 3.62 2.44 4.80 5.87 162 RV (Pleth) (L) 2.31 1.69 2.92 5.22 226 TLC (Pleth) (L) 6.91 5.60 8.21 8.12 117 RV/TLC (Pleth) (%) 34 27 41 64 189 DIFFUSION DLCOunc (ml/min/mmHg) 27.19 17.25 37.12 16.15 59 DLunc/VA (ml/min/mmHg 4.13 2.93 5.34 3.25 78 PFT: 12/31/20 Pre-Bronch Post-Bronch Pred LLN ULN Actual %Pred Actual %Chng SPIROMETRY FVC (L) 4.49 3.38 5.60 2.50 55 2.46 -1 FEV1 (L) 3.44 2.55 4.27 0.85 24 0.91 6 FEV1/FVC (%) 77 64 88 34 44 37 8 FEF 25% (L/sec) 8.11 5.52 10.70 0.65 8 0.74 14 FEF 50% (L/sec) 5.00 2.79 7.21 0.29 5 0.32 9 FEF 75% (L/sec) 0.81 0.31 1.95 0.17 20 0.14 -14 FEF 25-75% (L/sec) 2.76 1.30 4.78 0.27 9 0.28 4 FEF Max (L/sec) 8.91 6.59 11.23 1.98 22 2.11 6 FIVC (L) 2.42 2.39 -1 FIF 50% (L/sec) 4.62 2.50 6.73 1.90 41 1.81 -4 FIF Max (L/sec) 2.07 2.21 6 FET (sec) 13.66 12.91 -5 Back Extrap Vol (L) 0.03 0.02 -49 Time To FEFmax (sec) 0.061 0.056 -7 LUNG VOLUMES SVC (L) 4.68 2.61 55 IC (L) 3.33 2.06 61 ERV (L) 1.35 0.55 40 TGV (L) 3.68 2.24 5.11 6.23 169 RV (Pleth) (L) 2.33 1.58 3.07 5.68 244 TLC (Pleth) (L) 7.01 5.42 8.59 8.29 118 RV/TLC (Pleth) (%) 34 25 43 69 202 DIFFUSION DLCOunc (ml/min/mmHg) 27.52 19.53 35.50 13.21 47 ABG 02/24/22: 7.43/45/56 11/18/21: 7.40/53/52 07/22/21: 7.41/44/55 04/13/21: 7.42/44/59 6 minute walk 02/24/22:840 ft on 3L NC, desat to 94% 11/18/21: 890 ft on 3LNC desat to 95% 07/22/21: 890 ft on 3 L desat to 94% 04/13/21: 970 ft on 3L desat to 97% CXR: 02/24/22 1. Right middle lobe atelectasis, new/worse since prior exam. Radiographic follow-up is recommended to assess stability/resolution. 2. Radiographic findings consistent with air trapping and/or bronchial wall thickening. Patient's known right upper lobe nodule is not well evaluated on this examination. CT SCAN: 11/18/21 1. Diffuse bronchial wall thickening is present bilaterally associated with mucoid impacted bronchi. There are new clustered centrilobular nodules bilaterally, suggestive of either an infectious/inflammatory bronchiolitis and/or mucoid impaction. The lungs remain hyperinflated, likely due to underlying emphysema/air trapping. 2. Stable 11 x 8 mm right upper lobe pulmonary nodule since the chest CT dated 04/10/2020, probably benign given stability although should be assessed on follow-up. CT scan: 04/13/21 Lung parenchyma and airways: Saber-sheath tracheal morphology with and diffuse bronchial thickening, mild bronchiectasis, emphysema with hyperinflated lucent lungs and mosaic attenuation from chronic small airway inflammation. 10 mm right upper lobe nodule (81) unchanged. Other tiny nodules also unchanged. Pleural space: No pleural effusion. No pleural thickening. Lower neck, lymph nodes, and mediastinum: Calcified nodes in the mediastinum and hilum from old granulomatous disease. No pathologically enlarged nodes. Heart, pericardium, and thoracic vessels: Heart and great vessel size within normal limits. No pericardial effusion. Moderate coronary calcifications. Bones and soft tissues: No destructive bone lesion. Chest wall is unremarkable. Upper abdomen: Calcifications within the from old granulomatous disease. CAROTID ULTRASOUND: 04/14/21 RIGHT SIDE: Internal carotid artery: 60-79% stenosis. NOTE: CCA/ICA ratio of great than 4.0 may suggest a greater than 70% stenosis. Vertebral artery: Patent and antegrade flow noted. LEFT SIDE: Internal carotid artery: 40-59% stenosis. Tortuous vessel at proximal . Degree of stenosis most likely overestimated. Vertebral artery: Patent and antegrade flow noted. PVR: 04/14/21 RIGHT SIDE: Normal at rest. LEFT SIDE : Normal at rest. VQ SCAN: 07/28/21 Total pulmonary perfusion to the right lun%. Total pulmonary perfusion to the left lun%. EK02/22/22 SINUS RHYTHM WITH PREMATURE ATRIAL COMPLEXES RIGHT AXIS ECHO: 04/13/21 CONCLUSIONS: - Technically difficult exam due to lung interference. - Exam indication: Pre-evaluation lung transplant - The left ventricle is normal in size. Left ventricular systolic function is normal. EF = 61 5% (2D biplane) - The right ventricle is normal in size. Right ventricular systolic function is normal. - AV leaflets best visualized from subcostal window. -No significant valvular abnormalities. - Exam was compared with the prior CC echocardiographic exam performed on 01/19/2021. Similar findings. ECHO: 02/06/21 CONCLUSIONS: - Technically difficult exam due to body habitus and Pt on O2, Lung Interference. - Exam indication: SOB, Lung transplant candidate - The left ventricle is normal in size. Left ventricular systolic function is normal. EF = 57 5% (2D biplane) Definity contrast used for endocardial border detection. Normal left ventricular diastolic function. - The right ventricle is normal in size. Right ventricular systolic function is normal. - There is no evidence of significant valvular stenosis or insufficiency on this study. - The patient has not had a prior CC echocardiographic exam for comparison. CARDIOLOGY CONSULT: 02/22/22 with RIGHT/LEFT HEART CATH: 02/23/22 RA Mean 12.00 PA 54.00/4.00 (18.00) PCWP Mean 17.00 SIMI CO 6.50 SIMI CI 2.91 Normal coronary arteries COLONOSCOPY: 01/30/13 ([facility]) Rectal mucosa normal. Grade 1 internal hemorrhoids. Ileum normal, mucosal and submucosal vascular patter throughout the colon was normal. No polyp or mass identified, no inflammatory changes. ESOPHAGEAL MONOMETRY: 07/22/21 Interpretation / Findings LES: Normal resting pressure, complete relaxation Body of the esophagus (supine): --7 swallows with normal peirstalsis --3 swallows with hypertensive peristalsis PH PROBE: 07/22/21 Interpretation / Findings Normal study. SI shows negative corrleation to Cough:0/3. GASTRIC EMPTYIN07/23/21 IMPRESSION: NORMAL RATE OF GASTRIC EMPTYING OF SOLID MEAL. BONE DENSITY: 07/22/21 THE LOWEST T-SCORE IS -1.4 IN THE LEFT HIP ENDO CONSULT: 02/25/22 with Hortencia PSA: 02/24/22 BMI: 33.58 ABO: AB CMV: Positive EBV: Positive PRA: 02/24/22 PRA: 11/18/21 Class I cPRA: 0 Class II cPRA: 0 Class II specificities: DQA1*02:01 Comments: Partial reactivity to DQ2, DQ4, DQ7, DQ8, DQ9 PRA: 07/22/21 Class I cPRA: 0 Class II cPRA: 0 Class II specificities: DQA1*02:01 Comments: Mixed reactions with DQ2, DQ4, DQ7, DQ8, DQ9 result in DQA1*02:01 antibody PRA: 04/13/21 Class I cPRA: 0 Class II cPRA: 0 Class II specificities: DQA1*02:01 DENTAL CLEARANCE: to check at home PULMONARY REHAB: THORACIC SURGERY CONSULT: 02/25/22 with ID CONSULT: 02/24/22 with HEPATOLOGY CONSULT: 03/16/22 with Arlene PHARMACY CONSULT: done by Jennifer NUTRITION CONSULT: 02/22/22 with Tyron Nutrition Pre-Transplant Assessment No contraindications, Care plan has been outlined, and Nutrition Concerns: patient BMI 33. Patient has been working on weight loss since previous visit. States he's been working on portion sizes which has helped him the most with weight loss so far. Appears patient has lost ~16 lbs since previous visit with FELIPE in May last year. Patient's is willing to help patient best she can but feels like it is ultimately on him to continue to make changes. PReAlBUMIN:04/13/21 21 Hep A: 04/13/21; 07/22/21 11/18/21 positive Hep B: 04/13/21; 07/22/21;02/24/22 Flu vaccine: 11/18/21 Prevnar 20:07/22/21 Pneumovax: COVID 19 vaccine - Moderna ( 12/12/2020, 05/08/2020, 04/10/2020) 11/18/21 Shingles: 04/19/2019, 11/16/2018 PPD/TB Quant: 04/13/21 Negative Tetanus booster: 04/13/21 Social work issues, any need for followup discussed with patient. Needs to be seen again Insurance issues, any need for followup discussed with patient. Reviewed, unchanged since last visit. Financial/Fundraising issues, any need for followup discussed with patient. Reviewed, unchanged since last visit. REVIEW OF SYSTEMS GENERAL: No weight loss, malaise or fevers + intentional weight HEENT: Negative for frequent or significant headaches, No changes in hearing or vision, no nose bleeds or other nasal problems NECK: Negative for lumps, goiter, pain and significant neck swelling RESPIRATORY: Negative for cough, hemoptysis, wheezing, COPD, dyspnea or shortness of breath CARDIOVASCULAR: Negative for chest pain, leg swelling, hypertension, CHF or palpitations GI: No nausea, vomiting, or diarrhea : No history of dysuria, frequency or incontinence MUSCULOSKELETAL: Negative for joint pain or swelling, back pain or muscle pain SKIN: Negative for lesions, rash, and itching PSYCH: Negative for sleep disturbance, mood disorder and recent psychosocial stressors HEMATOLOGY/LYMPHOLOGY: Negative for prolonged bleeding, bruising easily or swollen nodes ENDOCRINE: Negative for cold or heat intolerance, polyuria, polydipsia and goiter NEURO: No history of headaches, syncope, paralysis, seizures or tremors Berta Davila, RN,BSN Lung Clinical Informatics Spec I have confirmed the review of systems and past family/social history obtained by the RN interval history as noted with additional details as follows: PHYSICAL EXAMINATION: 02/24/22 1301 BP: 126/69 Pulse: 90 Resp: 16 Temp: 36.6 C (97.9 F) TempSrc: Temporal SpO2: 96% Weight: 104.6 kg (230 lb 9.6 oz) Height: 176.5 cm (5' 9.49) Physical Exam above was completed in entirety 02/24/22, and is unchanged from the last visit conducted by Sameep Erna, MD Except where noted in bold General: Well developed, well nourished ,in no apparent distress Head: Normal cephalic ENT: No sinus tenderness, Neck: Supple Chest: decreased breath sounds. No adventitial sounds heard. No respiratory distress or accessory muscle use Cardiac: Regular rate and rhythm Abdomen: Soft, non-tender, non-distended Extremities: No clubbing, cyanosis or edema Skin/hair: No rash or suspicious lesions. Neurologic: grossly normal Impression: Mr. Angelo is a 65 year old male with COPD. # COPD- severe - GOLD 4D, with recurrent exacerbations, JANNA index 6. Significant hyperinflation and air trapping. Mild hypercapnia. # AAT deficiency - PI*MZ. NOT on augmentation therapy, normal levels on last check # asthma - symptoms compatible with ACOS, elevated eosinophils # obesity- BMI 33, continues to loose weight , abiut 6 lb since last visit # lung transplant candidacy- he appears to be in the window . BMI 33.5 is a concern. He has lost 6 lb in the last 3 months. Plan - weight loss, goal BMI < 32 ideally- 220 lb goal - pulmonary rehab, he has sensitivity with smells and hence has not been able to go due to exacerbations, discussed home [place] videos by [facility]. He will also start using the elliptical at home. Provided link to virtual pulm rehab - continue follow up with Dr. Willis- asthma and COPD clinic - discuss in [facility]SC - RTC oin 2-3 months to assess weight loss progress Wilbert Umanzor MD I spent a total of 50 minutes on the date of the service which included preparing to see the patient, [id number] patient care, and completing clinical documentation. documented in this encounterCommunity [facility]01-[facility] History of Present illness Narrative* Salinas Rueda - 02/24/2022 9:27 AM EST PULM FUNCTION SMARTBLOCK: Provider: Wilbert Umanzor MD Spirometry: 1 AB 6 MW: 1 System: 5 - [id number] documented in this encounterCleveland [id number] Procedure note* Mu ValdesSalinas ricardo - 02/24/2022 9:24 AM ESTAssociated Order(s): SIX MINUTE WALK RESPIRATORY THERAPY SIX MINUTE WALK TEST OXIMETRY REPORT Six Minute Walk Test for This Encounter Oxygen Device Liters FIO2 SpO2% HR Activity Feet Speed (MPH) Flag R/A 94 74 Resting NC 3 96 70 Resting NC 3 94 94 Six Minute Walk 840 1.6 NC 3 97 82 Recovery 1 minute post NC 3 98 77 Recovery 2 minute post NC 3 98 72 Recovery 3 minute post General Information Height Weight Smoking Status Pulse Oximetry Site Oximeter Pre Blood Pressure Post Blood Pressure Total Time Spent (min) 176.5 cm (5' 9.49) 104.6 kg (230 lb 9.6 oz) Ex-smoker Forehead Masimo 117/68 142/67 30 _ Distance Walked (meters) Distance Walked (feet) Male Predicted Walk Distance (feet) Male Lower Limit of Normal (feet) Male % Predicted Total Duration Of The Stops (seconds) 256.03 840 1695.21 1193.21 49.6 -- _ Lowest SpO2 During 6 Minute Walk Pre-Ivon Dyspnea Rating Pre-Ivon Fatigue Rating Post Ivon Dyspnea Rating Post Ivon Fatigue Rating O2 Supply Carrier Walking Assistance/Device 93 % 7 4 7 7 3 Wheel Walker 3 Wheel Walker Six Minute Walk Trend (Previous Encounters) Test Date Distance Walked (feet) Oxygen Device Liters FIO2 SpO2% Ivon Dyspnea Rating Ivon Fatigue Rating 11/18/2021 890 NC 3 95 5 5 07/22/2021 890 NC 3 94 3 1 04/13/2021 970 NC 3 97 3 3 12/31/2020 910 NC 3 92 8 7 SIGNATURE: Salinas Rueda PATIENT NAME: Belgica Angelo DATE: February 24, 2022 TIME: 9:26 AM The patient completed the six minute walk test with No stops. . The patient required Nasal Cannula Liters: 3 to complete the test. The distance the patient walked in six minutes is extremely reduced. The six minute walk distance today does not demonstrate a clinically significant change (130 feet decrease), when compared to the historically highest six minute walk distance from a test dated 04/13/21. Today's distance represents a 50 feet decrease compared to the last visit on 11/18/21. The patient perceived their dyspnea during the six minute walk test to be 7-Very severe on the modified Ivon scale. The patient perceived their fatigue during the six minute walk test to be 7-Very severe on the modified Ivon scale. I have reviewed the findings and made appropriate revisions as needed. SIGNATURE: Ousmane Angel MD PATIENT NAME: Belgica Angelo DATE: February 24, 2022 TIME: 9:59 AM documented in this encounterCommunity [facility]01-18-2023 History of Present illness Narrative* RT Cherise(R) - 02/24/2022 7:20 AM EST Radiology Service Progress Note PATIENT NAME: Belgica Angelo DATE OF SERVICE: February 24, 2022 TIME: 7:48 AM PATIENT IDENTITY VERIFICATION COMPLETED USING TWO (2) IDENTIFIERS: Name and Date of confirmedby patient verbally. FALL SCREENING: Has the patient had 2 falls in the last year or 1 fall with injury or currently using an Ambulatory Assistive Device (Walker, Cane, Wheelchair, Crutches, etc.)? No PATIENT GENDER DATA: Male PATIENT RELEVANT IMPLANT DATA REVIEWED: Not Applicable RADIOLOGY DEPARTMENT: General X-ray: Exam(s) Completed: Chest X-Ray PERIPHERAL IV DATA: Not applicable SIGNED BY: RT Cherise([place]) February 24, 2022 7:48 AM documented in this encounterCommunity [facility] Hospital01-16-2023 Miscellaneous Notes* Telephone Encounter - Micaela Bautista RN - 02/22/2022 2:53 PM EST CARDIOVASCULAR LAB INSTRUCTIONS: Readiness to Learn: Cognitive Ability: Alert and oriented Motivation To Learn: Eager Family/Significant Other Support: High - Very involved in pt care Instruction Provided To: Patient and family member Patient Learns Best By: Individual Instruction Factors Affecting Learning: None Physical Limitations Affecting Learning: None Learning Response: Procedure: Right and Left Heart Diagnostic Pre procedure education topics: Arrival time/NPO Status/Medications/Travel Instructions/Restrictions- driving restrictions Patient/Family Response Evaluation: Verbalizes understanding Follow Up Plan and Medication: As directed by physician Instruction/Supplemental Material Given: Cardiac catheterization instructions, procedure information, hospital information, hotel information. Instructed By Micaela Bautista, RN, RN. In Department of CARDIOLOGY. documented in this encounterCommunity [facility]01-16-2023 History of Present illness Narrative* Fozia Aburto RD - 02/22/2022 10:15 AM EST Nutrition Therapy Initial Assessment Nutrition Diagnosis: Overweight/obesity, related to, excess energy intake, as evidenced by BMI above normative standard for age and gender. RECOMMENDED MALNUTRITION DIAGNOSIS: NO MALNUTRITION IDENTIFIED NUTRITION CARE PLAN Nutrition Intervention 02/22/2022: Modify type and amount of food at meals and snacks: Low-Sodium Diet -2000mg or less sodium/day -Avoid adding any additional salt to food -Choose sodium-free seasonings like herbs and spices -If choosing canned, wash foods! -Avoid choosing processed foods 2. Have a goal of consuming a lean source of protein (20-30 grams) at each meal, aiming for an approximate 8 ounce equivalent daily divided between meals. 3. Aim to drink 64 oz of water/day 4. Aim to exercise 150 minutes per week 5. Eat small frequent meals during the day (4-6) -avoid skipping meals 6. Continue/increase activity as tolerated Nutrition Pre-Transplant Assessment No contraindications, Care plan has been outlined, and Nutrition Concerns: patient BMI 33. Patient has been working on weight loss since previous visit. States he's been working on portion sizes which has helped him the most with weight loss so far. Appears patient has lost ~16 lbs since previous visit with RD in May last year. Patient's is willing to help patient best she can but feels like it is ultimately on him to continue to make changes. Nutrition Monitoring & Evaluation: Weight loss of 1-2 pounds per week and adherence to above recommendations Need for Follow up: PRN Patient presents for lung transplant evaluation. PMH shows COPD. Patient previously evaluated for transplant however not a candidate due to BMI above 30. Patient has been working on weight loss sinceprevious visit. Patient states he was ~285 lbs at one point, his goal is to reach 220 lbs. Patient states that portion control has helped him the most with weight loss so far. Patient states he has an appetite for meals. Patient tries to avoid starches for weight loss however patient's states he does order in pizza and calzones. Patient has included exercise since previous visit. States he'sunable to use the bike for long periods of time but tries to at least get 15 minutes in during the day. Patient seems ultimately motivated for transplant. 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 Resting Metabolic Rate: 1844 Malnutrition Screening Significant unintentional weight loss? No Eating less than 75% of usual intake for more than 2 weeks? No Potential Signs of Inflammation: unable to determine at this time Education Materials Provided: Fat and Fiber Facts to Lower Cholesterol, High Protein Foods, and Your Sodium-Controlled Diet READINESS TO LEARN Cognitive ability: Alert and oriented Motivation to learn: Interested Family support: High - Very involved in pt care Instruction provided to: Patient and Significant Other Patient learns best by: Multiple Methods Factors affecting learning: None Physical limitations affecting learning: None Referred/Supervised by: Erna/Nathan ORTIZ Billing Type: Re-assess/15 min 2 units SIGNATURE: Fozia Aburto RD PATIENT NAME: Belgica Angelo DATE: February 22, 2022 TIME: 7:50 AM documented in this encounterCommunity [facility] Hospital01-16-2023 History of Present illness Narrative* Markos Burgos MD - 02/22/2022 7:17 AM EST Images from the original note were not included. [facility] [place] [facility] Department of Cardiovascular Medicine SECTION OF CLINICAL CARDIOLOGY OUTPATIENT VISIT DATE February 22, 2022 OUTPATIENT VISIT TYPE CONSULTATION PRIMARY CARE PHYSICIAN: Aisha Newton MD [address] [place] [address] REFERRING PHYSICIAN Wilbert Umanzor [address] [facility] [address] CHIEF COMPLAINT: Prelung transplant HISTORY OF PRESENT ILLNESS: Cardiac consultation at the request of Dr. Wilbert Umanzor.A copy of this consultation note will be provided to the requesting physician by way of shared Medical record or letter to requesting physician via US mail. Mr. Angelo is a 66 year old male who is seen today for cardiovascular medicine evaluation. He has end-stage lung disease undergoing transplant evaluation. He has no known coronary heart disease but risk factors include age and longstanding tobacco abuse. He denies any overt chest pain but is limited by his dyspnea on effort. He does wear supplemental oxygen. NURSING INTAKE: Patient presents today for a pre lung transplant evaluation. Cardiac cath is scheduled for 02/23/[address] Wagner. PMH includes former [id number] smoker, quitting in 2010, heterozygous for alpha-1 antitrypsin (Pi MZ) started on augmentation therapy by another sales and marketing manager due to low serum level, severe COPD on chronic oxygen PAST MEDICAL HISTORY Diagnosis Date Asthma Bronchiectasis (HCC) COPD (chronic obstructive pulmonary disease) (HCC) Dependence on supplemental oxygen Heterozygous alpha 1-antitrypsin deficiency (HCC) PiMZ Lung nodule Pain in joint, ankle and foot PAST SURGICAL HISTORY Procedure Laterality Date PAST SURGICAL HISTORY OF 2011 Rt foot reconstruction RPR UMBILICAL HRNA 5 YRS/> REDUCIBLE 07-26-2012 Hernia repair, umbilical >5yr SOCIAL HISTORY Social History Tobacco Use Smoking status: Former Packs/day: 4.00 Years: 30.00 Pack years: 120.00 Types: Cigarettes Quit date: 2010 Years since quittin.0 Smokeless tobacco: Never Vaping Use Vaping Use: Never used Substance Use Topics Alcohol use: Never Drug use: Never FAMILY HISTORY Problem Relation Age of Onset COPD Mother Heart disease Father Breast Cancer Sister No Known Problems Sister No Known Problems Sister COPD Brother COPD Brother ALLERGIES: ALLERGIES Allergen Reactions Penicillins GI Upset MEDICATIONS: montelukast (SINGULAIR) 10 mg tablet^Take 1 tablet by mouth once daily.^Disp: 90 tablet^Rfl: 3 BREO ELLIPTA 200-25 mcg/dose inhaler^USE 1 INHALATION BY MOUTH INSTRUCTED ONCE DAILY^Disp: 180 Each^Rfl: 3 azithromycin (ZITHROMAX) 250 mg tablet^Take 1 tablet by mouth once daily.^Disp: 90 tablet^Rfl: 2 albuterol HFA (VENTOLIN HFA) 90 mcg/actuation inhaler^INHALE TWO PUFFS BY MOUTH FOUR TIMES A DAY ASNEEDED^Disp: 18 g^Rfl: 11 albuterol (PROVENTIL) 2.5 mg /3 mL (0.083 %) nebulizer solution^USE 1 VIAL IN NEBULIZER 4 TIMES DAILY^Disp: 360 mL^Rfl: 11 budesonide (PULMICORT) 0.5 mg/2 mL nebulizer solution^Use 2 mL via nebulizer twice daily.^Disp: 500mL^Rfl: 2 tiotropium bromide (SPIRIVA RESPIMAT) 2.5 mcg/actuation inhaler^Inhale 2 Puffs as instructed once daily.^Disp: 90 Each^Rfl: 2 predniSONE (DELTASONE) 10 mg tablet^Take 2 tablets by mouth as needed (when he feels congested, every few weeks). Take 4 daily for three days, then 3 daily for three days, then 2 daily for three days, then one daily for three days.^Disp: 30 tablet^Rfl: 3 doxycycline hyclate (VIBRAMYCIN) 100 mg capsule^Take 1 capsule by mouth twice daily.^Disp: 20 capsule^Rfl: 3 traMADol (ULTRAM) 50 mg tablet^Take 50 mg by mouth every 4 hours as needed.^Disp: ^Rfl: REVIEW OF SYSTEMS: GENERAL: Negative for: Weight loss or gain, Fever or Chills, Weakness and Sleep difficulties. HEENT: Negative for: Headache, Impaired Vision, Glasses, Hearing Impairment, Ringing in Ears, Nosebleeds, Poor dental care, Bleeding Gums, Dentures NECK: Negative for: Swelling, Pain, Stiffness RESPIRATORY: Negative for: Cough, Blood in Sputum, Shortness of breath, Wheezing, Apnea GASTROINTESTINAL: Negative for: Trouble swallowing, Heartburn, Change in bowel habits, Blood in stool, Dark black stools MUSCULOSKELETAL: Negative for: Muscle or joint pain, Stiffness , Joint swelling NEUROLOGIC/PSYCHIATRIC: Negative for: Weakness, Paralysis, Numbness, Tingling, Tremor, Nervousness,Depressed mood, Memory loss SKIN: Negative for: Rashes, Itching HEMATOLOGICAL/LYMPHATIC: Negative for: Easy bruising , Easy bleeding ENDOCRINE: Negative for: Heat or cold intolerance, Excessive sweating, Frequent urination, Frequentthirst PHYSICAL EXAMINATION: BP 120/69 (BP Site: Right Arm) Pulse 73 Resp 12 Ht 177.8 cm (5' 10) Wt 105.7 kg (233 lb) SpO2 97% BMI 33.43 kg/m General: Well appearing, in no acute distress. Skin: No clubbing, no cyanosis. Eyes: Extra ocular movements intact Oropharynx: Teeth in good repair. Neck: No jugular venous distention, no carotid bruits. Lungs: Poor air exchange Heart: Regular rhythm, PMI not displaced, S1, S2 normal, no S3, no S4, no heaves, no rub and no murmur. Abdomen: Soft, nontender, bowel sounds normal. Extremities: No peripheral edema. Psych: Appropriate mood and affect. Neuro: Oriented to person, place and time, alert, cooperative. CARDIOVASCULAR MEDICINE TESTING: Last ECHO Result Conclusion ECHO Collected: 04/13/2021 2:56 PM (Final result) Impression: CONCLUSIONS: - Technically difficult exam due to lung interference. - Exam indication: Pre-evaluation lung transplant - The left ventricle is normal in size. Left ventricular systolic function is normal. EF = 61 5% (2D biplane) - The right ventricle is normal in size. Right ventricular systolic function is normal. - AV leaflets best visualized from subcostal window. -No significant valvular abnormalities. - Exam was compared with the prior echocardiographic exam performed on 01/19/2021. Similar findings. * * * Final * * * Last EKG Result Conclusion ECG COMPLETE Collected: 02/22/2022 6:52 AM (Preliminary result) Impression: SINUS RHYTHM WITH PREMATURE ATRIAL COMPLEXES RIGHT AXIS BORDERLINE ECG Last CT Result Conclusion CT CHEST WO IVCON Exam End: 11/18/2021 11:18 AM (Final result) Impression: IMPRESSION: 1. Diffuse bronchial wall thickening is present bilaterally associated with mucoid impacted bronchi. There are new clustered centrilobular nodules bilaterally, suggestive of either an infectious/inflammatory bronchiolitis and/or mucoid impaction. The lungs remain hyperinflated, likely due to underlying emphysema/air trapping. 2. Stable 11 x 8 mm right upper lobe pulmonary nodule since the chest CT dated 04/10/2020, probably benign given stability although should be assessed on follow-up. 3. No thoracic lymphadenopathy. Hydropress Operator: PSCB Transcribe Date/Time: Nov 18 2021 4:05P Dictated by : OUSMANE DEL RIO MD This examination was interpreted and the report reviewed and electronically signed by: OUSMANE DEL RIO MD on Nov 18 2021 4:24PM EST Component Latest Ref Rng & Units 04/13/2021 Cholesterol, Total <200 mg/dL 151 Triglyceride <150 mg/dL 67 HDL Cholesterol >39 mg/dL 55 Non HDL Cholesterol <130 mg/dL 96 Fasting Time hrs 12 VLDL Cholesterol <30 mg/dL 13 TC:HDL Ratio <5.10 2.75 LDL Cholesterol <100 mg/dL 83 LDL:HDL Ratio <2.54 1.51 Component Latest Ref Rng & Units 11/18/2021 WBC 3.70 - 11.00 k/uL 10.42 RBC 4.20 - 6.00 m/uL 4.66 Hemoglobin 13.0 - 17.0 g/dL 13.1 Hematocrit 39.0 - 51.0 % 41.6 MCV 80.0 - 100.0 fL 89.3 MCH 26.0 - 34.0 pg 28.1 MCHC 30.5 - 36.0 g/dL 31.5 RDW-CV 11.5 - 15.0 % 14.0 Platelet Count 150 - 400 k/uL 256 MPV 9.0 - 12.7 fL 10.3 Neut% % 70.5 Abs Neut (ANC) 1.45 - 7.50 k/uL 7.35 Lymph% % 18.3 Abs Lymph 1.00 - 4.00 k/uL 1.91 Claiborne% % 8.3 Abs [place]orne <0.87 k/uL 0.86 Eosin% % 1.9 Abs Eosin <0.46 k/uL 0.20 Baso% % 0.7 Abs Baso <0.11 k/uL 0.07 Immature Gran % % 0.3 IMMATURE GRANS (ABS) <0.10 k/uL 0.03 NRBC /100 WBC 0.0 Absolute nRBC <0.01 k/uL <0.01 DTYPE Auto Protein, Total 6.3 - 8.0 g/dL 6.9 Albumin 3.9 - 4.9 g/dL 4.3 Calcium 8.5 - 10.2 mg/dL 9.1 Bilirubin, Total 0.2 - 1.3 mg/dL 0.9 Alkaline Phosphatase 38 - 113 U/L 85 AST 14 - 40 U/L 17 ALT 10 - 54 U/L 19 Glucose 74 - 99 mg/dL 95 BUN 9 - 24 mg/dL 10 Creatinine 0.73 - 1.22 mg/dL 0.57 (L) Sodium 136 - 144 mmol/L 141 Potassium 3.7 - 5.1 mmol/L 4.1 Chloride 97 - 105 mmol/L 101 CO2 22 - 30 mmol/L 31 (H) Anion Gap 9 - 18 mmol/L 9 eGFR >=60 mL/min/1.73m 109 Magnesium 1.7 - 2.3 mg/dL 2.2 IMPRESSION/PLAN: J44.9 Chronic obstructive pulmonary disease, unspecified COPD type (HCC) Z01.818 Encounter for pre-transplant evaluation for lung transplant Z76.82 Lung transplant candidate R06.02 SOB (shortness of breath) Comment: Cardiovascular risk factors include age and tobacco abuse. He is scheduled for right and left heart catheterization tomorrow as part of his pretransplant evaluation. Pending the results of those he would otherwise be a reasonable candidate to proceed with potential lung transplant. Belgica Angelo will follow-up with me in clinical cardiology as needed. Thank you for allowing me to participate in the care of your patient. Please reach out to me at anytime with questions or concerns. Markos Burgos MD, MS, [facility] Co-Director, [facility] accounts payable specialist, [facility] of [facility] Section of Clinical Cardiology, Department of Cardiovascular Medicine [facility] Heart, Vascular, and Thoracic [facility], [address] [place] [address], Desk [place] [address] Office Office Appointments: [phone] I personally interviewed, confirmed and edited the above information as obtained by others. documented in this encounterCommunity Memorial Hospital01-10-2023 Miscellaneous Notes* Telephone Encounter - Angela Pittman LPN - 02/16/2022 1:38 PM EST Patient called requesting the following refill Refill(s) Requested: Requested Prescriptions Pending Prescriptions Disp Refills montelukast (SINGULAIR) 10 mg tablet 90 tablet 3 Sig: Take 1 tablet by mouth once daily. ALLERGIES Allergen Reactions Penicillins GI Upset (home) [phone] (cell) Last Office Visit Date: 02/02/2022 Last Distance Health Visit: Visit date not found Future Appointment: Visit date not found The patients preferred pharmacy has been captured for this encounter? yes Request is for script(s) to be escript to pharmacy. Angela Pittman LPN documented in this encounterCommunity Memorial Hospital01-10-2023 History of Present illness Narrative* DAQUAN Bashir - 02/16/2022 10:43 AM EST In follow up to our discussion of 02/12/22, emailed pt and his the [employer] brochure to helpthem understand how to go about fundraising if they choose to do so. Emmie DOMINGUEZ documented in this encounterCommunity Memorial Hospital01-05-2023 History of Present illness Narrative* DAQUAN Bashir - 02/11/2022 3:44 PM EST LUNG TRANSPLANT SOCIAL WORK PROGRESS NOTE VIRTUAL VISIT Patient: Belgica Angelo Date Evaluated: February 11, 2022 Diagnosis: COPD/Alpha 1 Presents with: virtual visit Distance from F: 1.5 hours from CC lives in [facility] Last appt: 11/20/2021 Needs to be addressed as of last visit: discussion about affording transplant medications ; pt has to work on weight loss has a BMI of 33.93 Financial situation: Insurance coverage: Medicare A, B [employer] and [employer] Looked into transplant medication costs: yes they switched prescription coverage to [employer] Posaconazole is Tier 5 would be $415 a month at [facility] Ampotericin is Tier 4 Mycophenolate and Amphotericin will need prior authorizations There is no catasthropic limit on the D plan; I gave them Good [employer] and [employer] to explore for discounts Spoke to a transplant pt: No; today I provided Val L contact information pt will reach out to him Prepared to handle non-covered transplant expenses: not at this time they want to pay for the lodging 6-8 weeks in [facility] as they go but I strongly encouraged fundraising Fundraising done: No but this was discussed today pt and do not have the recommended $20k savings They would like to stay at [facility] during relocation as it is more affordable. Pt and had not disclosed that they did not have the recommended $20k on prior visits finances were not reported to be an issue. HCPOA : Karla the AD is in the EMR We agreed to a f/u appt next appt is March 01 at 1 pm virtual visit sent to schedulers. He needs to be seen again to discuss fundraising update and pt's discussion with our lung tx volunteer Freddie. SIPAT: 22 Recommendation: He should be seen again. Emmie DOMINGUEZ CCTSW documented in this encounterCommunity Memorial Hospital12-27-2022 History of Present illness Narrative* Shukri Juárez MD - 02/02/2022 9:30 AM EST Images from the original note were not included. . [facility] [place] Note Patient name: Belgica Angelo PCP: Aisha Newton MD CC: asthma/COPD HPI: Belgica Angelo 65 year old male former [id number] smoker, quitting in 2010, heterozygous for alpha-1 antitrypsin (Pi MZ) started on augmentation therapy by another sales and marketing manager due to low serum level, severe COPD on chronic oxygen currently being evaluated for possible lung transplantation. Previously not considered a candidate due to his obesity but current transplant guidelines do not eliminate patients with BMI above 30. Also seen by asthma specialist on main campus who recommended stopping his augmentation therapy since alpha 1 antitrypsin level normal and no current evidence that augmentation therapy for heterozygous state improves long-term function. Started on Dupixent for asthma component, but not helpful so stopped after one month. Patient feels as if his lung function is worsened since he stopped his Prolastin injections. Last alpha- 1 antitrypsin level 96 mg/dL. Pulmonary function tests have not shown a decrement. Overall he feels he has been doing fairly well. Intermittently requires steroids when he is ill with bronchitis/upper respiratory infection. Last required steroids in December due to a viral upper respiratory infection. He did not have COVID or influenza. He is compliant with his triple inhaler therapy. He uses his albuterol/nebulized treatments every day. He has not required hospitalization. No current chronic cough or sputum production. No wheezing. Main respiratory symptom is dyspnea on exertion. DATA: PFT 11/2021: Review of pulmonary function test show very severe obstruction RESPIRATORY THERAPY SIX MINUTE WALK TEST OXIMETRY REPORT Six Minute Walk Test for This Encounter Oxygen Device Liters FIO2 SpO2% HR Activity Feet Speed (MPH) Flag R/A 96 70 Resting NC 3 100 73 Resting NC 3 95 103 Six Minute Walk 890 1.7 NC 3 97 84 Recovery 1 minute post NC 3 99 75 Recovery 2 minute post NC 3 99 75 Recovery 3 minute post General Information Height Weight Smoking Status Pulse Oximetry Site Oximeter Pre Blood Pressure Post Blood Pressure Total Time Spent (min) 176.5 cm (5' 9.49) 107 kg (236 lb) Ex-smoker Forehead Masimo 137/68 160/83 30 Distance Walked (meters) Distance Walked (feet) Male Predicted Walk Distance (feet) Male Lower Limit of Normal (feet) Male % Predicted Total Duration Of The Stops (seconds) 271.27 890 1681.1 1179.1 52.9 -- Labs: Component Ref Range & Units 2 mo ago 8 mo ago Alpha 1 Antitrypsin 90 - 200 mg/dL 96 174 Imaging / Diagnostic Studies: DATE OF EXAM: Nov 18 2021 11:18AM [facility] 0541 - CT CHEST WO IVCON / PROCEDURE REASON: multiple diagnoses IMPRESSION: 1. Diffuse bronchial wall thickening is present bilaterally associated with mucoid impacted bronchi. There are new clustered centrilobular nodules bilaterally, suggestive of either an infectious/inflammatory bronchiolitis and/or mucoid impaction. The lungs remain hyperinflated, likely due to underly ing emphysema/air trapping. 2. Stable 11 x 8 mm right upper lobe pulmonary nodule since the chest CT dated 04/10/2020, probablybenign given stability although should be assessed on follow-up. 3. No thoracic lymphadenopathy. I personally reviewed the images and agree with the above assessment PAST MEDICAL HISTORY Diagnosis Date Bronchiectasis (HCC) COPD (chronic obstructive pulmonary disease) (HCC) Dependence on supplemental oxygen Heterozygous alpha 1-antitrypsin deficiency (HCC) PiMZ Lung nodule Pain in joint, ankle and foot ALLERGIES Allergen Reactions Penicillins GI Upset BREO ELLIPTA 200-25 mcg/dose inhaler^USE 1 INHALATION BY MOUTH INSTRUCTED ONCE DAILY^Disp: 180 Each^Rfl: 3 montelukast (SINGULAIR) 10 mg tablet^Take 1 tablet by mouth once daily.^Disp: 90 tablet^Rfl: 3 azithromycin (ZITHROMAX) 250 mg tablet^Take 1 tablet by mouth once daily.^Disp: 90 tablet^Rfl: 2 budesonide (PULMICORT) 0.5 mg/2 mL nebulizer solution^Use 2 mL via nebulizer twice daily.^Disp: 500mL^Rfl: 2 tiotropium bromide (SPIRIVA RESPIMAT) 2.5 mcg/actuation inhaler^Inhale 2 Puffs as instructed once daily.^Disp: 90 Each^Rfl: 2 albuterol HFA (VENTOLIN HFA) 90 mcg/actuation inhaler^INHALE TWO PUFFS BY MOUTH FOUR TIMES A DAY ASNEEDED^Disp: 18 g^Rfl: 11 albuterol (PROVENTIL) 2.5 mg /3 mL (0.083 %) nebulizer solution^USE 1 VIAL IN NEBULIZER 4 TIMES DAILY^Disp: 360 mL^Rfl: 11 predniSONE (DELTASONE) 10 mg tablet^Take 2 tablets by mouth as needed (when he feels congested, every few weeks). Take 4 daily for three days, then 3 daily for three days, then 2 daily for three days, then one daily for three days.^Disp: 30 tablet^Rfl: 3 (Patient not taking: Reported on 02/02/2022) doxycycline hyclate (VIBRAMYCIN) 100 mg capsule^Take 1 capsule by mouth twice daily.^Disp: 20 capsule^Rfl: 3 traMADol (ULTRAM) 50 mg tablet^Take 50 mg by mouth every 4 hours as needed.^Disp: ^Rfl: Social History Tobacco Use Smoking status: Former Packs/day: 4.00 Years: 30.00 Pack years: 120.00 Types: Cigarettes Quit date: 2010 Years since quittin.9 Smokeless tobacco: Never Substance Use Topics Alcohol use: Never Drug use: Never PMH, Social history, family history and surgical history reviewed and updated in EMR REVIEW OF SYSTEMS: CONSTITUTIONAL: No fevers, chills, nightsweats, unintended weight loss. Lose weight with dietary limitation HEENT: Denies nasal congestion/sinus symptoms, allergy problems. CARDIOVASCULAR: No chest pain, palpitations, orthopnea, PND, edema. PULM: See HPI GI: No dysphagia/odynophagia, problematic reflux, constipation, diarrhea NEURO: No new balance problems, peripheral weakness/paresthesias or numbness of concern. MUSC-SKEL: No joint pain, swelling, or erythema INTEGUMENTARY: No new skin changes or rashes PHYSICAL EXAMINATION: BP 118/72 Pulse 81 Resp 16 Wt 233 lb (105.7kg) SpO2 96% General Appearance: Obese male NAD Skin: Skin color, texture, turgor normal, no suspicious rashes or lesions. Head: Normocephalic, no masses, lesions, tenderness or abnormalities. Eyes: Sclera, conjunctiva normal Oropharynx: No oral lesions, no thrush Neck: Supple, no adenopathy; thyroid symmetric, normal size, no adenopathy Lungs: Lungs clear to auscultation. No wheezing, rhonchi, rales.. Heart: RRR without murmur, gallop, or rubs. No ectopy. Extremities: No edema, no clubbing Assessment/Plan: 1. Very severe COPD, GOLD stage 4 -Stable pulmonary function testing -Continue triple inhaler therapy and follow-up with transplant service 2. Moderate persistent asthma, uncomplicated -Patient stopped Dupixent -Continue inhaled therapy -Strongly encouraged limited use of oral steroids 3. Heterozygous alpha-1 antitrypsin deficiency -Remains off augmentation therapy 4. Bronchiectasis -Continue mucus clearance techniques -On suppressive azithromycin therapy 5. Chronic hypoxemic respiratory failure -Patient compliant with and benefits from supplemental oxygen Shukri Juárez MD [facility] [place] documented in this encounterCommunity Memorial Hospital12-23-2022 Miscellaneous Notes* Telephone Encounter - Ko Strickland RN - 01/29/2022 1:54 PM EST Returned call to patient's . She would like a printed schedule. Will send out to her next week.All questions answered. Ko Strickland RN, BSN Pre-Lung Clinical Informatics Spec * Telephone Encounter - Himanshu Ellis - 01/29/2022 1:47 PM EST Patient's spouse called for coordinator and she stated she had some questions about incorporating the appointments together and some additional questions. documented in this encounterCommunity Memorial Hospital12-16-2022 Miscellaneous Notes* Telephone Encounter - DAQUAN Bashir - 01/22/2022 12:42 PM EST T/c was received from pt and . They changed medication coverage to [employer] which is effective Feb.07. He has lost some weight but still has 7# to go to meet the goal given to him by the MD. His was in [place] at a wedding and so he cancelled his heart cath appt. The SW appt was not scheduled so they wondered what happened. They thought we were having a virtualappt today. Pt and are requesting a call from the coordinator to discuss his appts and rescheduling the cath, should he come back in February without meeting the goal weight. They have a few questions. Finally, the SW appt was not scheduled ; will send to schedulers for a virtual appt with pt next month. Pt and are very appreciative. Bill [phone] Emmie BUTT-Radha CCTS documented in this encounterCommunity Memorial Hospital10-14-2022 History of Present illness Narrative* DAQUAN Bashir - 11/20/2021 12:25 PM EDT LUNG TRANSPLANT SOCIAL WORK PROGRESS NOTE Virtual Visit with both audio and visual components Name: Belgica Angelo Last SW appt: 07/23/21 DX: COPD, AAT deficiency Pt and were on the virtual visit. Pt is using 4 L of oxygen. He saw Dr. Mckeon recently and was told to work on weight loss the goal is 16-20# as his BMI is 34.36. The pt's understanding is thathe cannot move forward with the cardiac cath or go to the [facility] unless his BMI is lower. Long discussion about his medication coverage. They have the list of the transplant medications arehave had an appt with a local insurance adjuster about switching to another D plan. They are investigating options. will not add him to her retiree plan. The pt continues to have Medicare and [facility]. His has talked to our billing dept several times about bills she is receiving that need to be resubmitted. She is very frustrated with our billing dept. 's brother has been in the hospital and and her sister are his main supports. Apparently he can be difficult so she is very stressed, feels scattered, a lot on her plate, etc. She is workingwith the case assembler and the [facility] to get help for her brother as she cannot keep up being his main support. She wants to focus on her 's issues. The pt's care team for transplant will be his , their son Pedro Angelo, and good friends Talia Barillas and Yessy Canales who would provide transport to appts if needed. Pt is in good spirits and denied any other concerns at this time. will continue to address medication coverage and possibly change plans. She will work with their local insurance adjuster. She has my contact information if she has any questions. It does see that she my not be processing all the information being given I did suggest getting information in writing and /or talking to her someone at her local senior center. I think once her brother's support situation is more defined that will help decrease her anxiety and aid her ability to focus. We agreed to a f/u appt. with SW virtually on 01/22/22 at 10 a.m. Sent to schedulers. SIPAT: 18 Recommendation: He needs to be seen again. Signature: Emmie BUTT-S CCTSW Date: November 20, 2021 Time: 12:26 PM documented in this encounterCommunity Memorial Hospital10-12-2022 History of Present illness Narrative* Wilbert Umanzor MD - 11/18/2021 1:00 PM EDT 66 yo male is coming in on 11/18/21 for followup for lung transplant due to COPD/A1AT. INTERVAL HISTORY: Since last visit on 07/22/21; he has not been hospitalized or to the ER. He has had several flares and has been on and off steroids and antibiotics since his last visit. Productive cough with yellow/white secretions. No hemoptysis. No fevers. Overall patient feels his breathing is getting worse because he becomes SOB with minimal exertion. He is able to wash dishes and fold clothes but not much other activity. At rest 3 LNC and with activity 4 LNC of oxygen. Patient is currently not enrolled in pulm rehab and doing very little at home. No dizziness. No LE edema, syncope or RV failure symptoms.Patient lost 4 lbs since the last visit with current BMI 34.36 HPI from initial eval by on 04/13/21: Mr. Angelo is a 65 year man w COPD/A1AT deficiency on replacement therapy who presents with compliant of progression of dyspnea. He is more SOB with less activity, interfering with ADL. He has required more frequent courses of steroids which improves his SOB and endurance. No chronic cough, sputum p roduction, wheezing. Seems to be more sensitive to odors and fumes which causes immediate SOB and feeling of chest constriction. In response, he stopped using wood burner to heat his home. Cannot usescented soaps, detergents etc. Due to his increased dyspnea, he is asking about lung transplantation or endobronchial valve for LVRS. Transplant candidacy has been addressed in the past which was contraindicated due to obesity. He has not made any effort to lose weight due to dyspnea. Patient has significant air-trapping from COPD but does not have significant emphysema so [place] valve has been deemed not indicated. His disease course includes dx with COPD 2011 . Patient began to use supplemental 2012. Patient has been hospitalized never been or intubated or with MICU admission. Patient denies syncope, lightheadness, LE edema or other RHF symptoms. Patient currently 20 mg of prednisone when he feels congested ( few times a month). He estimates being on steroids approximately 4 months out of the year. He uses a percussion vest to help bring up sputum. Current the patient is able to complete ADl's but is getting harder, getting more SOB. He is using O2 3L with rest and 4L with activity, and 3L with sleep. He is enrolled in pulmonary rehab 3 x week. PMHx COPD Bronchiectasis A1AT on augmentation therapy (proteinase inhibitor once/week) lung nodules neuropathy right foot no DM no CPAP or BIPAP no transfusions needs some assistance with ADL at rest based on ATS protocol Sp02 96 % on RA PSurHx right foot hernia repair PATIENT TRANSPLANT KARNOFSKY INDEX AND LANSKY SCALE 60% - Cares for self: unable to carry on normal activity or active work. ALLERGIES: Penicillins MEDICATIONS: Current Outpatient Medications Medication Sig Dispense Refill montelukast (SINGULAIR) 10 mg tablet Take 1 tablet by mouth once daily. 90 tablet 3 azithromycin (ZITHROMAX) 250 mg tablet Take 1 tablet by mouth once daily. 90 tablet 2 albuterol HFA (VENTOLIN HFA) 90 mcg/actuation inhaler INHALE TWO PUFFS BY MOUTH FOUR TIMES A DAY ASNEEDED 18 g 11 albuterol (PROVENTIL) 2.5 mg /3 mL (0.083 %) nebulizer solution USE 1 VIAL IN NEBULIZER 4 TIMES DAILY 360 mL 11 budesonide (PULMICORT) 0.5 mg/2 mL nebulizer solution Use 2 mL via nebulizer twice daily. 500 mL 2 fluticasone-vilanterol (BREO ELLIPTA) 200-25 mcg/dose inhaler Inhale 1 Inhalation as instructed once daily. 150 Each 2 tiotropium bromide (SPIRIVA RESPIMAT) 2.5 mcg/actuation inhaler Inhale 2 Puffs as instructed once daily. 90 Each 2 predniSONE (DELTASONE) 10 mg tablet Take 2 tablets by mouth as needed (when he feels congested, every few weeks). Take 4 daily for three days, then 3 daily for three days, then 2 daily for three days, then one daily for three days. 30 tablet 3 doxycycline hyclate (VIBRAMYCIN) 100 mg capsule Take 1 capsule by mouth twice daily. 20 capsule 3 fluticasone-vilanterol (BREO ELLIPTA) 200-25 mcg/dose inhaler Inhale 1 Inhalation as instructed once daily. 150 Each 2 traMADol (ULTRAM) 50 mg tablet Take 50 mg by mouth every 4 hours as needed. SOCIAL WORK COMMENTS: 11/20/21 with Emmie Ladd SOCIAL WORK COMMENTS: 04/14/21 with Emmie Ladd SIPAT: 22 RECOMMENDATION: He needs to be seen again re: social supports, progress on weight loss and motivation for transplant. Per chart review data available for review includes: PFT: 11/18/21 Pred LLN ULN Actual %Pred FVC (L) 4.36 3.28 5.46 2.51 57 FEV1 (L) 3.34 2.47 4.16 0.82 24 FEV1/FVC 0.77 0.64 0.88 0.33 42 PFT: 07/22/21 Pred LLN ULN Actual %Pred FVC (L) 4.38 3.30 5.47 2.87 65 FEV1 (L) 3.35 2.48 4.18 0.91 27 FEV1/FVC 0.77 0.64 0.88 0.32 41 PFT: 04/13/21 Pred LLN ULN Actual %Pred SPIROMETRY FVC (L) 4.39 3.31 5.48 3.48 79 FEV1 (L) 3.36 2.49 4.19 1.12 33 FEV1/FVC 0.77 0.64 0.88 0.32 41 FEF25 (L/sec) 0.88 FEF50 (L/sec) 4.17 2.05 6.30 0.39 9 FEF75 (L/sec) 0.78 0.30 1.90 0.24 30 SZR46-48 (L/sec) 2.70 1.26 4.68 0.33 12 PEF L/s (L/sec) 8.75 6.47 11.03 3.41 38 FIVC (L) 3.36 FIF50 (L/sec) 2.98 PIF (L/sec) 3.81 Time (sec) 15.94 SARANYA (L) 0.02 FET PEF (sec) 0.04 LUNG VOLUMES SVC (L) 4.39 3.31 5.48 3.60 82 IC (L) 2.92 1.92 65 ERV (L) 1.46 0.78 53 TGV (L) 3.62 2.44 4.80 5.87 162 RV (Pleth) (L) 2.31 1.69 2.92 5.22 226 TLC (Pleth) (L) 6.91 5.60 8.21 8.12 117 RV/TLC (Pleth) (%) 34 27 41 64 189 DIFFUSION DLCOunc (ml/min/mmHg) 27.19 17.25 37.12 16.15 59 DLunc/VA (ml/min/mmHg 4.13 2.93 5.34 3.25 78 PFT: 12/31/20 Pre-Bronch Post-Bronch Pred LLN ULN Actual %Pred Actual %Chng SPIROMETRY FVC (L) 4.49 3.38 5.60 2.50 55 2.46 -1 FEV1 (L) 3.44 2.55 4.27 0.85 24 0.91 6 FEV1/FVC (%) 77 64 88 34 44 37 8 FEF 25% (L/sec) 8.11 5.52 10.70 0.65 8 0.74 14 FEF 50% (L/sec) 5.00 2.79 7.21 0.29 5 0.32 9 FEF 75% (L/sec) 0.81 0.31 1.95 0.17 20 0.14 -14 FEF 25-75% (L/sec) 2.76 1.30 4.78 0.27 9 0.28 4 FEF Max (L/sec) 8.91 6.59 11.23 1.98 22 2.11 6 FIVC (L) 2.42 2.39 -1 FIF 50% (L/sec) 4.62 2.50 6.73 1.90 41 1.81 -4 FIF Max (L/sec) 2.07 2.21 6 FET (sec) 13.66 12.91 -5 Back Extrap Vol (L) 0.03 0.02 -49 Time To FEFmax (sec) 0.061 0.056 -7 LUNG VOLUMES SVC (L) 4.68 2.61 55 IC (L) 3.33 2.06 61 ERV (L) 1.35 0.55 40 TGV (L) 3.68 2.24 5.11 6.23 169 RV (Pleth) (L) 2.33 1.58 3.07 5.68 244 TLC (Pleth) (L) 7.01 5.42 8.59 8.29 118 RV/TLC (Pleth) (%) 34 25 43 69 202 DIFFUSION DLCOunc (ml/min/mmHg) 27.52 19.53 35.50 13.21 47 ABG 11/18/21: 7.40/53/52 07/22/21: 7.41/44/55 04/13/21: 7.42/44/59 6 minute walk 11/18/21: 890 ft on 3LNC desat to 95% 07/22/21: 890 ft on 3 L desat to 94% 04/13/21: 970 ft on 3L desat to 97% CXR: 11/18/[address] SCAN: 11/18/21- pending CT scan: 04/13/21 Lung parenchyma and airways: Saber-sheath tracheal morphology with and diffuse bronchial thickening, mild bronchiectasis, emphysema with hyperinflated lucent lungs and mosaic attenuation from chronic small airway inflammation. 10 mm right upper lobe nodule (81) unchanged. Other tiny nodules also unchanged. Pleural space: No pleural effusion. No pleural thickening. Lower neck, lymph nodes, and mediastinum: Calcified nodes in the mediastinum and hilum from old granulomatous disease. No pathologically enlarged nodes. Heart, pericardium, and thoracic vessels: Heart and great vessel size within normal limits. No pericardial effusion. Moderate coronary calcifications. Bones and soft tissues: No destructive bone lesion. Chest wall is unremarkable. Upper abdomen: Calcifications within the from old granulomatous disease. CAROTID ULTRASOUND: 04/14/21 RIGHT SIDE: Internal carotid artery: 60-79% stenosis. NOTE: CCA/ICA ratio of great than 4.0 may suggest a greater than 70% stenosis. Vertebral artery: Patent and antegrade flow noted. LEFT SIDE: Internal carotid artery: 40-59% stenosis. Tortuous vessel at proximal . Degree of stenosis most likely overestimated. Vertebral artery: Patent and antegrade flow noted. PVR: 04/14/21 RIGHT SIDE: Normal at rest. LEFT SIDE : Normal at rest. VQ SCAN: 07/28/21 Total pulmonary perfusion to the right lun%. Total pulmonary perfusion to the left lun%. EKG: NORMAL SINUS RHYTHM ECHO: 04/13/21 CONCLUSIONS: - Technically difficult exam due to lung interference. - Exam indication: Pre-evaluation lung transplant - The left ventricle is normal in size. Left ventricular systolic function is normal. EF = 61 5% (2D biplane) - The right ventricle is normal in size. Right ventricular systolic function is normal. - AV leaflets best visualized from subcostal window. -No significant valvular abnormalities. - Exam was compared with the prior CC echocardiographic exam performed on 01/19/2021. Similar findings. ECHO: 02/06/21 CONCLUSIONS: - Technically difficult exam due to body habitus and Pt on O2, Lung Interference. - Exam indication: SOB, Lung transplant candidate - The left ventricle is normal in size. Left ventricular systolic function is normal. EF = 57 5% (2D biplane) Definity contrast used for endocardial border detection. Normal left ventricular diastolic function. - The right ventricle is normal in size. Right ventricular systolic function is normal. - There is no evidence of significant valvular stenosis or insufficiency on this study. - The patient has not had a prior CC echocardiographic exam for comparison. RIGHT/LEFT HEART CATH: pending COLONOSCOPY: 01/30/13 (OS[facility]) Rectal mucosa normal. Grade 1 internal hemorrhoids. Ileum normal, mucosal and submucosal vascular patter throughout the colon was normal. No polyp or mass identified, no inflammatory changes. ESOPHAGEAL MONOMETRY: 07/22/21 Interpretation / Findings LES: Normal resting pressure, complete relaxation Body of the esophagus (supine): --7 swallows with normal peirstalsis --3 swallows with hypertensive peristalsis PH PROBE: 07/22/21 Interpretation / Findings Normal study. SI shows negative corrleation to Cough:0/3. GASTRIC EMPTYIN07/23/21 IMPRESSION: NORMAL RATE OF GASTRIC EMPTYING OF SOLID MEAL. BONE DENSITY: 07/22/21 THE LOWEST T-SCORE IS -1.4 IN THE LEFT HIP ENDO CONSULT: PSA: BMI: 34.36 ABO: AB CMV: Positive EBV: Positive PRA: 11/18/21 pending PRA: 07/22/21 Class I cPRA: 0 Class II cPRA: 0 Class II specificities: DQA1*02:01 Comments: Mixed reactions with DQ2, DQ4, DQ7, DQ8, DQ9 result in DQA1*02:01 antibody PRA: 04/13/21 Class I cPRA: 0 Class II cPRA: 0 Class II specificities: DQA1*02:01 DENTAL CLEARANCE: PULMONARY REHAB: THORACIC SURGERY CONSULT: PHARMACY CONSULT: to be done by [facility] NUTRITION CONSULT: Hep A: 04/13/21; 07/22/21 11/18/21 LAB PENDING Hep B: 04/13/21; 07/22/21 Flu vaccine: 11/18/21 Prevnar 20: Pneumovax: COVID 19 vaccine - Moderna ( 12/12/2020, 05/08/2020, 04/10/2020) 11/18/21 Shingles: 04/19/2019, 11/16/2018 PPD/TB Quant: 04/13/21 Negative Tetanus booster: 04/13/21 Social work issues, any need for followup discussed with patient. He needs to be seen again 11/20/21 Insurance issues, any need for followup discussed with patient. Reviewed, unchanged since last visit. Financial/Fundraising issues, any need for followup discussed with patient. Reviewed, unchanged since last visit. REVIEW OF SYSTEMS 10 system ROS completed, negative unless mentioned in HPI I have confirmed the review of systems and past family/social history obtained by the RN interval history as noted with additional details as follows: PHYSICAL EXAMINATION: Physical Exam above was completed in entirety 11/18/21, and is unchanged from the last visit conducted by Wilbert Umanzor MD Except where noted in bold 11/18/21 1303 BP: 135/62 Pulse: 75 Resp: 18 Temp: 36.3 C (97.3 F) TempSrc: Temporal SpO2: 98% Weight: 107 kg (236 lb) Height: 176.5 cm (5' 9.49) General: Well developed, well nourished ,in no apparent distress Head: Normal cephalic ENT: No sinus tenderness, Neck: Supple Chest: decreased breath sounds. No adventitial sounds heard. No respiratory distress or accessory muscle use Cardiac: Regular rate and rhythm Abdomen: Soft, non-tender, non-distended Extremities: No clubbing, cyanosis or edema Skin/hair: No rash or suspicious lesions. Neurologic: grossly normal Impression: Mr. Angelo is a 65 year old male with COPD. # COPD- severe - GOLD 4D, with recurrent exacerbations, JANNA index 6. # AAT deficiency - PI*MZ. NOT on augmentation therapy, normal levels on last check # asthma - symptoms compatible with ACOS, elevated eosinophils # obesity- BMI 34 # lung transplant candidacy- he appears to be in the window . BMI > 34 is a concern. He has lost 4 lb in the last 3 months. Will return in the next 3 months to complete work up if he is able to loose weght and get close to a BMI of 32. Plan - weight loss, goal BMI < 34 ( closer to 32 ideally- 220 lb goal ) - complete work up in 3 months with heart cath, CT surgery visit - pulmonary rehab, he has sensitivity with smells and hence has not been able to go due to exacerbations, discussed home [place] videos by [facility]. He will also start using the elliptical at home - continue follow up with Dr. Willis- asthma and COPD clinic I spent a total of 45 minutes on the date of the service which included preparing to see the patient, [id number] patient care, and completing clinical documentation. documented in this encounterCommunity [facility]10-12-[facility]22 Procedure note* Salinas Santiago - 11/18/2021 12:49 PM EDTAssociated Order(s): SIX MINUTE WALK RESPIRATORY THERAPY SIX MINUTE WALK TEST OXIMETRY REPORT Six Minute Walk Test for This Encounter Oxygen Device Liters FIO2 SpO2% HR Activity Feet Speed (MPH) Flag R/A 96 70 Resting NC 3 100 73 Resting NC 3 95 103 Six Minute Walk 890 1.7 NC 3 97 84 Recovery 1 minute post NC 3 99 75 Recovery 2 minute post NC 3 99 75 Recovery 3 minute post General Information Height Weight Smoking Status Pulse Oximetry Site Oximeter Pre Blood Pressure Post Blood Pressure Total Time Spent (min) 176.5 cm (5' 9.49) 107 kg (236 lb) Ex-smoker Forehead Masimo 137/68 160/83 30 _ Distance Walked (meters) Distance Walked (feet) Male Predicted Walk Distance (feet) Male Lower Limit of Normal (feet) Male % Predicted Total Duration Of The Stops (seconds) 271.27 890 1681.1 1179.1 52.9 -- _ Lowest SpO2 During 6 Minute Walk Pre-Ivon Dyspnea Rating Pre-Ivon Fatigue Rating Post Ivon Dyspnea Rating Post Ivon Fatigue Rating O2 Supply Carrier Walking Assistance/Device 94 % 5 0 5 5 3 Wheel Walker 3 Wheel Walker Six Minute Walk Trend (Previous Encounters) Test Date Distance Walked (feet) Oxygen Device Liters FIO2 SpO2% Ivon Dyspnea Rating Ivon Fatigue Rating 07/22/2021 890 NC 3 94 3 1 04/13/2021 970 NC 3 97 3 3 12/31/2020 910 NC 3 92 8 7 SIGNATURE: Salinas Santiago PATIENT NAME: Belgica Angelo DATE: November 18, 2021 TIME: 12:49 PM The patient completed the six minute walk test with No stops. . The patient required Nasal Cannula Liters: 3 to complete the test. The distance the patient walked in six minutes is moderately reduced. The six minute walk distance today does not demonstrate a clinically significant change (80 feet decrease), when compared to the historically highest six minute walk distance from a test dated 04/13/21. Today's distance represents a 0 feet decrease compared to the last visit on 07/22/21. The patient perceived their dyspnea during the six minute walk test to be 5- Severe on the modified Ivon scale. The patient perceived their fatigue during the six minute walk test to be 5- Severe on the modified Ivon scale. I have reviewed the findings and made appropriate revisions as needed. SIGNATURE: Ousmane Angel MD PATIENT NAME: Belgica Angelo DATE: November 18, 2021 TIME: 1:37 PM documented in this encounterCommunity [facility] Hospital10-12-2022 History of Present illness Narrative* Thomas Kebede, PRE K TEACHER - 11/18/2021 12:27 PM EDT PULM FUNCTION SMARTBLOCK: Provider: Wilbert Umanzor MD Assisting Tech: Thomas Kebede, PRE K TEACHER Add'l Tech Assisting Tech 2: Salinas Santiago Spirometry: 1 AB 6 MW: 1 System: 6 - [id number] documented in this encounterCommunity [facility]10-12-2022 Instructions* Patient Instructions* Darryl Willis MD - 11/18/2021 9:27 AM EDT Great to see you again today, And Ms. Angelo. Can continue: - LABA/ICS (Breo) daily - Nebulized ICS - LAMA (Spiriva) - Azithromycin - Montelukast daily - Albuterol nebulizer and inhaler PRN I refilled all of them. Please do your best to stay active and moving as this will be critical for the lung transplant possibility. Unfortunately, given the PI*MZ status (one abnormal gene) there is really no role for augmentation therapy. However, we can repeat the AAT level today just to reassess if this may be an exception. You can see me again in 3 months, but MyChart message me with any concerns. Darryl Willis MD documented in this encounterCommunity [facility]10-12-2022 History of Present illness Narrative* Darryl Willis MD - 11/18/2021 9:00 AM EDT Images from the original note were not included. 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 Please refer to initial evaluation on 05/20/2021 for full history. At my last visit on 06/26/2021, I noted: Mr. Angelo is a 65 YOM with severe COPD and a clinical story highly suggestive of asthma with an absolute eosinophil count of 170 in May. 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 AST and ALT are normal. Plan: - Continue high-dose ICS/LABA - Continue nebulized budesonide on top of this to reach small airways - Continue daily azithromycin for COPD/chronic bronchitis component - Continue LAMA - Discussed using SVEN prior to known triggers - Encouraged to continue increasing oxygen as needed for activity - Discussed conducting pulmonary rehabilitation exercises at home (given cleaning chemicals at facility) and remaining active to optimize lung transplant candidacy - Given lack of improvement, AEC of 170, bronchodilator reversibility and episodic component, will add dupilumab for IL-4R blocking therapy In the interim, - Messaged stating did not think dupilumab was providing relief On today's visit, he thinks he is feeling worse. Specifically, exercise tolerance may be decreasing. Although there is a temporal relationship to discontinuation of augmentation therapy, I do not believe it is causative. Still experiencing cough, wheezing, dyspnea. Still significant sensitivity with odors suggesting asthma component. However, this did not improve with dupilumab therapy. Endorses compliance with his airways regimen: - LABA/ICS (Breo) daily - Nebulized ICS - LAMA (Spiriva) - Azithromycin - Montelukast daily - Albuterol nebulizer and inhaler PRN PAST MEDICAL HISTORY Diagnosis Date Bronchiectasis (HCC) COPD (chronic obstructive pulmonary disease) (HCC) Dependence on supplemental oxygen Heterozygous alpha 1-antitrypsin deficiency (HCC) PiMZ Lung nodule Pain in joint, ankle and foot Social History Tobacco Use Smoking status: Former Packs/day: 4.00 Years: 30.00 Pack years: 120.00 Types: Cigarettes Quit date: 2010 Years since quittin. Smokeless tobacco: Never Substance Use Topics Alcohol use: Never Drug use: Never FAMILY HISTORY Problem Relation Age of Onset COPD Mother Heart disease Father Breast Cancer Sister No Known Problems Sister No Known Problems Sister COPD Brother COPD Brother EXPOSURE HISTORY: None Former smoker Social History Tobacco Use Smoking status: Former Packs/day: 4.00 Years: 30.00 Pack years: 120.00 Types: Cigarettes Quit date: 2010 Years since quittin. Smokeless tobacco: Never Substance Use Topics Alcohol use: Never Drug use: Never REVIEW OF SYMPTOMS: GENERAL: No weight loss, malaise or fevers. RESPIRATORY: See HPI CARDIOVASCULAR: Negative for chest pain, leg swelling, hypertension, CHF or palpitations GI: No nausea, vomiting, or diarrhea PHYSICAL EXAMINATION: BP 135/62 Pulse 75 Temp 36.3 C (97.3 F) (Temporal) Resp 18 Wt 107.2 kg (236 lb 6.4 oz) SpO2 98% BMI 33.92 kg/m General appearance: Well appearing, alert, in no acute distress, well-hydrated, well nourished. Lungs: Lungs clear to auscultation. No wheezing, rhonchi, rales -- diminished breath sounds Heart: RRR without murmur, gallop, or rubs. No ectopy Extremities: No deformities, edema, skin discoloration, clubbing or cyanosis. Good capillary refill. Peripheral pulses: Normal DATA REVIEW: Component Latest Ref Rng & Units 05/20/2021 Alpha 1 Antitrypsin 90 - 200 mg/dL 174 FeNO (05/20/21) - 8.0 ppb Spirometry 05/20/21 Ref. Range 04/13/2021 07:06 05/20/2021 11:53 Eosin% Latest Units: % 0.2 2.0 Abs Eosin Latest Ref Range: <0.46 k/uL 0.[address] 04/13/21 RESULT: Lines, tubes, and devices: None. Lung parenchyma and airways: Saber-sheath tracheal morphology with and diffuse bronchial thickening, mild bronchiectasis, emphysema with hyperinflated lucent lungs and mosaic attenuation from chronic small airway inflammation. 10 mm right upper lobe nodule (81) unchanged. Other tiny nodules also unchanged. Pleural space: No pleural effusion. No pleural thickening. Lower neck, lymph nodes, and mediastinum: Calcified nodes in the mediastinum and hilum from old granulomatous disease. No pathologically enlarged nodes. Heart, pericardium, and thoracic vessels: Heart and great vessel size within normal limits. No pericardial effusion. Moderate coronary calcifications. Bones and soft tissues: No destructive bone lesion. Chest wall is unremarkable. Upper abdomen: Calcifications within the from old granulomatous disease. Resource Agent (topogram) images: No additional findings. Spirometry and lung volumes 12/31/20 Component Latest Ref Rng & Units 05/20/2021 05/20/2021 11:53 AM 11:53 AM Elm Tree IgE <0.35 kU/l <0.35 Elm Tree Class Class 0 Class 0 [place] Tree IgE <0.35 kU/l <0.35 [place] Tree Class Class 0 Class 0 Short Ragweed IgE <0.35 kU/l <0.35 Short Ragweed Class Class 0 Class 0 Cat Dander IgE <0.35 kU/l <0.35 Cat Dander Class Class 0 Class 0 D. farinae IgE <0.35 kU/l <0.35 D. farinae Class Class 0 Class 0 Aspergillus fumigatus IgE <0.35 kU/l <0.35 <0.35 Aspergillus fumigatus Class Class 0 Class 0 Class 0 Mountain Juniper IgE <0.35 kU/l <0.35 Mountain Juniper Class Class 0 Class 0 Pigweed IgE <0.35 kU/l <0.35 Pigweed Class Class 0 Class 0 [id number] Thanh Grass <0.35 kU/l <0.35 Thanh Grass Class Class 0 Class 0 White Dhruv Tree IgE <0.35 kU/l <0.35 White Dhruv Tree Class Class 0 Class 0 [place] Tree IgE <0.35 kU/l <0.35 [place] Tree Class Class [address] [place]/Pecan Tree IgE <0.35 kU/l <0.35 [place]ec[place] Tree Class Class 0 Class 0 Alternaria tenuis IgE <0.35 kU/l <0.35 <0.35 Alternaria tenuis Class Class 0 Class 0 Class 0 Mucor racemosus IgE <0.35 kU/l <0.35 <0.35 Mucor racemosus Class Class 0 Class 0 Class 0 [place] Tree IgE <0.35 kU/l <0.35 [place] Tree Class Class 0 Class 0 Cockroach IgE <0.35 kU/l <0.35 Cockroach Class Class 0 Class 0 Rough Alvares Elder IgE <0.35 kU/l <0.35 Rough Alvares Elder Class Class 0 Class 0 Dog Dander IgE <0.35 kU/l <0.35 Dog Dander Class Class 0 Class 0 D. pteronyssinus IgE <0.35 kU/l <0.35 D. pteronyssinus Class Class 0 Class 0 Cladosporium herbarum IgE <0.35 kU/l <0.35 <0.35 Cladosporium herbarum Class Class 0 Class 0 Class 0 [place] Tree IgE <0.35 kU/l <0.35 [place] Tree Class Class 0 Class 0 Ivorian Thistle IgE <0.35 kU/l <0.35 Ivorian Thistle Class Class 0 Class 0 [place] Grass IgE <0.35 kU/l <0.35 [place] Grass Class Class 0 Class 0 P. chrysogenum IgE <0.35 kU/l <0.35 P. chrysogenum Class Class 0 Class 0 [place] Tree IgE <0.35 kU/l <0.35 [place] Tree Class Class 0 Class 0 Solomon IgE <0.35 kU/l <0.35 Solomon Class Class 0 Class 0 Mouse Epithelium IgE <0.35 kU/l <0.35 Mouse Epithelium Class Class 0 Class 0 Coloma IgE <0.35 kU/l <0.35 [place] Class Class 0 Class 0 Jolene albicans IgE <0.35 kU/l <0.35 Jolene albicans Class Class 0 Class 0 Alpha 1 Antitrypsin 90 - 200 mg/dL 174 Alpha-1 Antitryp Interp Alpha-1 Antitrypsin Genotyping . . .PI*MZ ASSESSMENT: Severe COPD Asthma-COPD overlap PI*MZ heterozygote PLAN: LABA/ICS (Breo) daily Nebulized ICS LAMA (Spiriva) Azithromycin Montelukast daily Albuterol nebulizer and inhaler PRN Ongoing evaluation for lung transplantation Darryl Willis MD Orders Placed This Encounter [id number] Standing Status: Future Number of Occurrences: 1 Standing Expiration Date: 01/18/2022 ALPHA 1 ANTITRYP PHEN/GENOTYPE Standing Status: Future Number of Occurrences: 1 Standing Expiration Date: 01/18/2022 montelukast (SINGULAIR) 10 mg tablet Sig: Take 1 tablet by mouth once daily. Dispense: 90 tablet Refill: 3 azithromycin (ZITHROMAX) 250 mg tablet Sig: Take 1 tablet by mouth once daily. Dispense: 90 tablet Refill: 2 albuterol HFA (VENTOLIN HFA) 90 mcg/actuation inhaler Sig: INHALE TWO PUFFS BY MOUTH FOUR TIMES A DAY NEEDED Dispense: 18 g Refill: 11 Order Comments: Generic or brand: dispense inhaler preferred by patient/insurance unless MARY flag is selected. albuterol (PROVENTIL) 2.5 mg /3 mL (0.083 %) nebulizer solution Sig: USE 1 VIAL IN NEBULIZER 4 TIMES DAILY Dispense: 360 mL Refill: 11 budesonide (PULMICORT) 0.5 mg/2 mL nebulizer solution Sig: Use 2 mL via nebulizer twice daily. Dispense: 500 mL Refill: 2 fluticasone-vilanterol (BREO ELLIPTA) 200-25 mcg/dose inhaler Sig: Inhale 1 Inhalation as instructed once daily. Dispense: 150 Each Refill: 2 tiotropium bromide (SPIRIVA RESPIMAT) 2.5 mcg/actuation inhaler Sig: Inhale 2 Puffs as instructed once daily. Dispense: 90 Each Refill: 2 MDM Number of Diagnoses or Management Options Stage 4 very severe COPD by GOLD classification (HCC): established, worsening Amount and/or Complexity of Data Reviewed Clinical lab tests: reviewed Tests in the radiology section of CPT : reviewed Tests in the medicine section of CPT : reviewed Review and summarize past medical records: yes Independent visualization of images, tracings, or specimens: yes Risk of Complications, Morbidity, and/or Mortality Presenting problems: moderate Diagnostic procedures: moderate Management options: moderate documented in this encounterCommunity [facility]10-10-2022 Miscellaneous Notes* Telephone Encounter - Elba Slaughter - 11/16/2021 3:33 PM EDT Patient has been identified by name and date of : Yes Requested Prescriptions Pending Prescriptions Disp Refills montelukast (SINGULAIR) 10 mg tablet 90 tablet 3 Sig: Take 1 tablet by mouth once daily. RX INSTRUCTIONS: Patient aware RX will be sent to pharmacy. No need to notify patient. Elba Slaughter documented in this encounterCommunity [facility] Hospital09-27-2022 History of Present illness Narrative* Norma Mohamud RN - 11/03/2021 9:40 AM EDT 200 mg Dupixent given SQ in right arm. No wait time. LOT: [id number] expires 03/03 stock supply documented [facility]09-20-2022 Miscellaneous Notes* Telephone Encounter - DAQUAN Bashir - 10/27/2021 1:04 PM EDT T/c was received from requesting a follow up SW appt he is returning to the Clinic on 11/18 for lung tx evaluation. Will see pt via virtual visit on 11/20 at 11:30. Confirmed with pt . Emmie BUTT-S CCTSW documented in this encounterCommunity [facility]08-30-2022 History of Present illness Narrative* Ashley Howell RN - 10/06/2021 9:40 AM EDT 200 mg Dupixent given SQ in right arm . Tolerated well. No s/s of reaction. Lot: [id number] expires 03/03 from stock supply. See MAR. documented in this encounterCommunity [facility] Hospital08-16-2022 History of Present illness Narrative* Norma Mohamud RN - 09/22/2021 9:47 AM EDT 200 mg Dupixent given SQ in left arm without issue. Patient was tachy for riding in the elevator with the cleaning staff- he cannot tolerate the odors. LOT: [id number] expires 01/30 STOCK SUPPLY documented in this encounterCommunity [facility]08-12-2022 Miscellaneous Notes* Telephone Encounter - Jing Vasquez LPN - 09/18/2021 9:58 AM EDT Called Danielr. Refill is available at pharmacy. Patient notified re: same. Jing Vasquez LPN * Telephone Encounter - Teresa Salazar LPN - 09/18/2021 8:48 AM EDT Images from the original note were not included. Called patient. Verified name and date of . Shukri Juárez MD You 2 hours ago (6:05 AM) If he is taking 20 mg every few weeks then how can he be out of this medication. 30 tablets with 3 refills sent in last month. Patient does state taking when he needs and has 16 tablets left. Teresa Salazar LPN * Telephone Encounter - Teresa Salazar LPN - 09/17/2021 2:40 PM EDT Patient phoned, Verified name and date of . Requesting refills as follows: Requested Prescriptions Pending Prescriptions Disp Refills predniSONE (DELTASONE) 10 mg tablet 30 tablet 3 Sig: Take 2 tablets by mouth as needed (when he feels congested, every few weeks). Take 4 daily forthree days, then 3 daily for three days, then 2 daily for three days, then one daily for three days. Verified pharmacy. Please review and advise. Teresa Salazar LPN documented in this encounterCommunity [facility]08-02-2022 Nurse Note* Isha Garsia RN - 09/08/2021 9:45 AM EDT Administered Dupixent 200 mg to right upper arm per order-see emar for details. Patient left officeasymptomatic. Lot: [id number] Expiration Date: Dupixent syringe from [facility]. documented in this encounterCommunity [facility] Hospital07-19-2022 History of Present illness Narrative* Norma Mohamud RN - 08/25/2021 11:46 AM EDT Patient given 200 mg Dupixent SQ in left arm. Tolerated well. No 30 minute wait post injection per [facility] policy. Stock supply LOT: [id number] Expires: 01-30 documented in this encounterCommunity [facility]07-05-2022 Nurse Note* Isha Garsia RN - 08/11/2021 11:46 AM EDT Dupixent administered per order. See emar for details. Patient left office without symptoms. Lot # [id number] Exp: . Medication from stock. documented in this encounterCommunity [facility] Hospital06-24-2022 Miscellaneous Notes* Telephone Encounter - Ashley Howell RN - 07/31/2021 2:10 PM EDT Pt's dupixent arrived. Pt schedule for August 11 at 11am. Ze[employer] message sent to patient with directions. Also gave him verbal directions over the phone. documented in this encounterCommunity [facility] Hospital06-23-2022 History of Present illness Narrative* Shukri Juárez MD - 07/30/2021 10:30 AM EDT Images from the original note were not included. . Respiratory [place] Note Patient name: Belgica Angelo PCP: Aisha Newton MD CC: Follow-up COPD HPI: Belgica Angelo 65 year old male former [id number] smoker, quitting in 2010, heterozygous for alpha-1 antitrypsin (Pi MZ) started on augmentation therapy by another sales and marketing manager due to low serum level in the face of very severe obstructive lung disease. COPD, GOLD stage 4, on chronic oxygencurrently being evaluated for possible lung transplantation. Previously not considered a candidate due to his obesity, but current transplant guidelines, BMI greater than 30 not an absolute contraindication. He has been steadily losing weight and current BMI is 33 down from peak of 38. Recently seen by alpha-1 antitrypsin specialist on main campus who recommended stopping his augmentation therapysince alpha 1 antitrypsin level normal and no current evidence that augmentation therapy for heterozygous state improves long-term function. Starting on Dupixent for asthma component with hopes of decreasing need for frequent courses of prednisone. Despite the severity of his lung disease, he has been relatively stable over the past 10 years, original FEV1 0.84 L 21% when he first establish care in [place], with most recent FEV1 0.91 L 27% predicted. No recent need for antibiotic or oral prednisone. He does have history of recurrent bronchitis with mild bronchiectasis. No recent hospitalization or ED visit. Overall his main complaint is of poor exercise endurance and severe shortness of breath. Shortness of breath has been worsened by exposure to the heat and humidity. No current cough,sputum production or wheezing. DATA: PFT 07/24/2021: Review of pulmonary function test shows very severe airflow obstruction RESPIRATORY THERAPY ORAL EXHALED NITRIC OXIDE SERVICE DATE: 05/20/2021 SERVICE TIME: 12:01 PM Oral Exhaled Nitric Oxide measurement: 8.0 (ppb) Labs: Component Ref Range & Units 5 d ago WBC 3.70 - 11.00 k/uL 10.72 RBC 4.20 - 6.00 m/uL 4.70 Hemoglobin 13.0 - 17.0 g/dL 12.9 Low Hematocrit 39.0 - 51.0 % 41.6 MCV 80.0 - 100.0 fL 88.5 MCH 26.0 - 34.0 pg 27.4 MCHC 30.5 - 36.0 g/dL 31.0 RDW-CV 11.5 - 15.0 % 13.2 Platelet Count 150 - 400 k/uL 236 MPV 9.0 - 12.7 fL 11.1 Neut% % 72.7 Abs Neut 1.45 - 7.50 k/uL 7.79 High Lymph% % 17.4 Abs Lymph 1.00 - 4.00 k/uL 1.87 Claiborne% % 7.8 Abs Claiborne <0.87 k/uL 0.84 Eosin% % 1.0 Abs Eosin <0.46 k/uL 0.11 Baso% % 0.6 Abs Baso <0.11 k/uL 0.06 Immature Gran % % 0.5 Abs Immature Gran <0.10 k/uL 0.05 NRBC /100 WBC 0.0 Absolute nRBC <0.01 k/uL <0.01 Diff Type Auto Component Ref Range & Units 2 mo ago Alpha 1 Antitrypsin 90 - 200 mg/dL 174 Imaging / Diagnostic Studies: DATE OF EXAM: Apr 13 2021 9:25AM [facility] [place] 0541 - CT CHEST WO IVCON / PROCEDURE REASON: multiple diagnoses EXAMINATION: CHEST CT WITHOUT CONTRAST CLINICAL HISTORY: Shortness of breath Lung transplant candidate Comparison: Prior chest CT dated 04/10/2020 RESULT: Lines, tubes, and devices: None. Lung parenchyma and airways: Saber-sheath tracheal morphology with and diffuse bronchial thickening, mild bronchiectasis, emphysema with hyperinflated lucent lungs and mosaic attenuation from chronicsmall airway inflammation. 10 mm right upper lobe nodule (81) unchanged. Other tiny nodules also unchanged. Pleural space: No pleural effusion. No pleural thickening. Lower neck, lymph nodes, and mediastinum: Calcified nodes in the mediastinum and hilum from old granulomatous disease. No pathologically enlarged nodes. Heart, pericardium, and thoracic vessels: Heart and great vessel size within normal limits. No pericardial effusion. Moderate coronary calcifications. Bones and soft tissues: No destructive bone lesion. Chest wall is unremarkable. Upper abdomen: Calcifications within the from old granulomatous disease. IMPRESSION: Stable chest CT exam including diffuse bronchial thickening, hyperinflation with air trapping, emphysema and right upper lobe 10 mm nodule unchanged from prior. I personally reviewed images and agree with the above assessment PAST MEDICAL HISTORY Diagnosis Date Bronchiectasis (HCC) COPD (chronic obstructive pulmonary disease) (HCC) Dependence on supplemental oxygen Heterozygous alpha 1-antitrypsin deficiency (HCC) PiMZ Lung nodule Pain in joint, ankle and foot ALLERGIES Allergen Reactions Penicillins GI Upset azithromycin (ZITHROMAX) 250 mg tablet Take 1 tablet by mouth once daily. budesonide (PULMICORT) 0.5 mg/2 mL nebulizer solution Use 2 mL via nebulizer twice daily. fluticasone-vilanterol (BREO ELLIPTA) 200-25 mcg/dose inhaler Inhale 1 Inhalation as instructed once daily. albuterol (PROVENTIL) 2.5 mg /3 mL (0.083 %) nebulizer solution USE 1 VIAL IN NEBULIZER 4 TIMES DAILY albuterol HFA (VENTOLIN HFA) 90 mcg/actuation inhaler INHALE TWO PUFFS BY MOUTH FOUR TIMES A DAY ASNEEDED predniSONE (DELTASONE) 10 mg tablet Take 2 tablets by mouth as needed (when he feels congested, every few weeks). Take 4 daily for three days, then 3 daily for three days, then 2 daily for three days, then one daily for three days. doxycycline hyclate (VIBRAMYCIN) 100 mg capsule Take 1 capsule by mouth twice daily. fluticasone-vilanterol (BREO ELLIPTA) 200-25 mcg/dose inhaler Inhale 1 Inhalation as instructed once daily. montelukast (SINGULAIR) 10 mg tablet TAKE ONE TABLET BY MOUTH DAILY gabapentin (NEURONTIN) 300 mg capsule Take 300 mg by mouth three times daily. tiotropium bromide (SPIRIVA RESPIMAT) 2.5 mcg/actuation inhaler Inhale 2 Sprays as instructed once daily. traMADol (ULTRAM) 50 mg tablet Take 50 mg by mouth every 4 hours as needed. Social History Tobacco Use Smoking status: Former Smoker Packs/day: 4.00 Years: 30.00 Pack years: 120.00 Types: Cigarettes Quit date: 2010 Years since quittin.4 Smokeless tobacco: Never Used Substance Use Topics Alcohol use: Never Drug use: Never PMH, Social history, family history and surgical history reviewed and updated in EMR REVIEW OF SYSTEMS: CONSTITUTIONAL: No fevers, chills, nightsweats, unintended weight loss HEENT: Denies nasal congestion/sinus symptoms, allergy problems. CARDIOVASCULAR: No chest pain, palpitations, edema. PULM: See HPI GI: No dysphagia/odynophagia, problematic reflux NEURO: No new balance problems, peripheral weakness/paresthesias or numbness of concern. MUSC-SKEL: No new joint pain, swelling, or erythema. PSY: No concerns regarding depression, anxiety INTEGUMENTARY: No new skin changes or rashes PHYSICAL EXAMINATION: BP 122/82 Pulse 85 Resp 17 Wt 236 lb (107.0kg) SpO2 96% General Appearance: Obese male, no acute distress Skin: Skin color, texture, turgor normal, no suspicious rashes or lesions. Head: Normocephalic, no masses, lesions, tenderness or abnormalities. Eyes: Sclera, conjunctiva normal Oropharynx: No oral lesions, erythema or thrush Neck: No JVD, no masses, no adenopathy Lungs: Normal to percussion, diminished breath sounds, rhonchi on the right Heart: Rate and rhythm, no murmurs or gallops Extremities: No edema or clubbing Assessment/Plan: 1. Very severe COPD, GOLD stage 4 -Continue on his triple inhaler therapy with as needed albuterol. Refilled prescriptions -Patient to limit use of oral steroids -Just started Dupixent and appears to be tolerating thus far 2. Heterozygous alpha-1 antitrypsin deficiency -Most recent alpha 1 antitrypsin level normal -Stopped augmentation therapy 3. Obesity, class I, BMI 33 -Continue weight loss -Spoke about dietary choices. Patient should limit carbohydrate intake 4. Former cigarette smoker -Former 527-kgtt-bynn smoker having quit in 2010 -Continued tobacco free state -No evidence of bronchogenic carcinoma on most recent CT of his chest Shukri Juárez MD Respiratory [place] documented in this encounterCommunity [facility]06-[facility] History of Present illness Narrative* Jing Hines RN - 07/28/2021 10:15 AM EDT Pt here for Dupilumab (Dupixent) injection # 1. Pt identified by name and birthdate prior to procedure. Asthma Control Test completed per patient. Dupixent obtained from [employer]. 10 AM Dupixent (Dupilumab) ([employer] lot [id number], exp. 05/2023, [facility] [id number]) 400 mg given in divided doses; 200 mg given subcutaneous in right upper arm and 200 mg SQ in left upper arm. Patient observed for 60 minutes. Pt. without signs or symptoms of allergic reaction. Jing Hines RN ASTHMA CONTROL TEST (2007 - ) 07/28/2021 ASTHMA WORK (2007) 1 ALL OF THE TIME ASTHMA SOB (2007) 1 MORE THAN ONCE A DAY ASTHMA SLEEP (2007) 1 FOUR OR MORE NIGHTS A WEEK ASTHMA MED (2007) 1 THREE OR MORE TIMES A DAY ASTHMA CONTROL (2007) 1 NOT CONTROLLED AT ALL ACT TOTAL SCORE 5 documented in this encounterCommunity [facility] Hospital06-17-2022 Miscellaneous Notes* Telephone Encounter - Ina Powell - 07/24/2021 5:07 PM EDT Allergy Nurse handed off a message, that wanted to speak to me about patients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 to Breo seems to be compelling however it just an increase in ICS component (100 to 200) with same dose ofLABA. He also takes systemic steroids frequently so do not think that just an increase in ICS wouldprecipitate this. HR now stabilized (in 90s). Discussed that if HR should become labile again, should pursue urgent care (walk-in clinic or ED) for EKG as this may reflect abnormal heart rhythm. He will switch back to Breo 100/25 for Tuesday and Tuesday, trial 200/25 again . I am awaiting AAT genotype before commenting and finalizing recommendations from last week's visit (Re: augmentation therapy, possible TSLP- blockade or prophylactic azithromycin). Total Time Spent: 10 minutes Darryl Willis MD * Telephone Encounter - Cristina Reid Asst - 05/25/2021 8:33 AM EDT patient called the office she wants to confirm the my chart msg has been reviewed. documented in this encounterCommunity [facility]04-[facility]22 Procedure note* Salinas Aguila - 05/20/2021 11:59 AM EDT Associated Order(s): NITRIC OXIDE, EXHALED RESPIRATORY THERAPY ORAL EXHALED NITRIC OXIDE SERVICE DATE: 05/20/2021 SERVICE TIME: 12:01 PM Oral Exhaled Nitric Oxide measurement: 8.0 (ppb) Normal: Adult 5-20 ppb, pediatric (<12 years) 5-15 ppb High Normal / Increased: Adult 20-35 ppb, pediatric (<12 years) 15-25 ppb Moderately raised exhaled Nitric Oxide may indicate underlying inflammation, but note that: Cold and influenza can raise exhaled Nitric Oxide and some patients have higher baseline exhaled Nitric Oxide levels than others. High: Adult >35 ppb, pediatric (<12 years) >25 ppb Indicative of ongoing eosinophilic inflammation. Symptomatic patient likely to respond to steroids. Possible causes (if already on steroids): Poor compliance, recent allergen exposure, steroid dose inadequate, and steroid resistance. Note that not all patients with high exhaled nitric oxide levels display symptoms. Oral Exhaled Nitric Oxide measurement (Previous Encounters) Test Date Oral Exhaled Nitric Oxide (ppb) 05/20/2021 8.0 NAME: Salinas Aguila PATIENT NAME: Belgica Angelo DATE: May 20, 2021 TIME: 12:01 PM documented in this encounterCommunity [facility]04[facility]22 History of Present illness Narrative* Salinas Aguila - 05/20/2021 11:50 AM EDT PULM FUNCTION SMARTBLOCK: Provider: Darryl Willis MD Spirometry w/BD: 1 Exhaled Nitric Oxide: 1 System: [id number] documented in this encounterCommunity [facility]04-13-2022 Instructions* Patient Instructions* Darryl Willis MD - 05/20/2021 9:13 AM EDT Great to meet you today, And Mrs. Angelo. You seem to have both COPD and asthma, there are a couple medications we can consider adding. For now, please: - Continue Breo, but will increase to 200-25. Be sure to use daily and rinse mouth after use - Continue Spiriva - Continue albuterol nebulizer and inhaler as needed. Can also use nebulizer prior to known triggers. I will review your case in more detail and call within 1-2 weeks. Please let me know if your son has any questions, it is critical he avoid inhalational exposures and should get an AAT level and genotype. You can bump oxygen temporarily during activity. Please have blood tests drawn today. Darryl Willis MD documented in this encounterCommunity [facility]04-[facility]22 History of Present illness Narrative* Darryl Willis MD - 05/20/2021 8:00 AM EDT Images from the original note were not included. Respiratory [place] Consultation requested by Dr. Cordoba for an opinion regarding alpha-1 antitrypsin deficiency and asthma. My final recommendations will be communicated back to the requesting physician by way of shared Medical record or letter to requesting physician via US mail. CC: Dyspnea HPI: Belgica Angelo is referred to airways disease clinic for evaluation of COPD with AATD on augmentation therapy and concern for concomitant reactive airways disease. He had recurrent pneumonia in childhood. Might've grown up in a house with a lot of mold. Did not use inhaler. In his 20s, he had a pretty significant cough -- even outside of pneumonia or bronchitisepisodes. It was productive, occasionally cause him to pass out. Over the next couple of decades into 30s and 40s, he had dyspnea. Did not use inhalers. Around 55 years old ([id number]), diagnosed AATD and started on once weekly infusion therapies. Thinks started on inhalers around then. Over the last 10 years, continued progression of dyspnea and also distinctly, has clear triggers. Outside of triggers becomes very dyspneic with minimal walking. He has a productive cough, he uses a vest to expectorate sputum. Endorses wheezing. Previous asthma history Triggers (bolded causes symptoms): animal exposure (dogs, cats), tobacco smoke, pollens/allergens, exercise, odors, cold air exposure, being indoors, cleaning chemicals at PT office and home, upper respiratory infections, weather changes, laughing, occupational exposures and anxiety Hospitalizations: Yes (Remote, related to pneumonia). Very sick February, during trip to [place] but didn't quite fully recover since. Lost 13 pounds in 10 days due to decreased appetite. (?COVID, had cough) Intubations: No ED visits in the last year: 0 Steroid bursts in the last year: Frequent (at least 3 months of use in the last 12 months) Comorbidities: Atopy and Allergic Rhinitis: Minimal, maybe post-nasal drip Upper airway syndrome: No Vocal cord dysfunction: Unknown, maybe throat tightness GERD: Rarely, not on PPI KISHA/sleep history: Not previously tested. says no snoring, no witnessed apnea. 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 Central HVAC, changes filter frequently Current asthma therapy: Asthma controller medications: Breo (takes at least 90% of the time), Spiriva Albuterol nebulizer and albuterol inhaler Albuterol nebulizer provides relief, albuterol inhaler provides marignal relief ACT score today: 08/31 ASTHMA CONTROL TEST Date: 05/20/2021 1. In the last 4 weeks, how much of the time did your asthma keep you from getting as much done at work or home that you wanted to do? All of the time (1) 2. In the last 4 weeks, how often have you had shortness of breath? More than once per day (1) 3. In the last 4 weeks, how often did your asthma symptoms (wheezing, coughing, shortness of breath, chest tightness or pain) wake you up at night or earlier than usual? Once a week (3) 4. In the last 4 weeks, how often have you used your rescue inhaler or nebulizer medication (such as Albuterol, Proventil, Ventolin, Maxair, Xoponex, or Primatene Mist)? 3 or more times per day (1) 5. In the last 4 weeks, how would you rate your asthma control? Not controlled at all (1) Total: less than 15 GOLD Classification: GOLD 4 Very severe FEV1 < 30% predicted Smoking Cessation Completion: Yes Lung cancer screening referral if indicated: Will address at next visit The patient has had multiple exacerbation/s and 0 hospitalization/s over the past year. Home oxygen:Yes at 3 lpm, at rest and exertion A1AT status is PI*MZ. Pulmonary rehabilitation: completed. Lung cancer screening Not Enrolled Symptom [place]: Modified Medical [employer] Lime Dyspnea Scale (MMRC) I stop for breath after walking about 100 yards or after a few minutes on level ground 3 Daily cough: Yes Daily Sputum: Yes FH: - Son is 32 years old, no prior genotype testing FAMILY HISTORY Problem Relation Age of Onset COPD Mother Heart disease Father Breast Cancer Sister No Known Problems Sister No Known Problems Sister COPD Brother COPD Brother Medications: Current Outpatient Medications on File Prior to Visit Medication Sig predniSONE (DELTASONE) 10 mg tablet Take 2 tablets by mouth as needed (when he feels congested, every few weeks). Take 4 daily for three days, then 3 daily for three days, then 2 daily for three days, then one daily for three days. montelukast (SINGULAIR) 10 mg tablet TAKE ONE TABLET BY MOUTH DAILY albuterol (PROVENTIL) 2.5 mg /3 mL (0.083 %) nebulizer solution USE 1 VIAL IN NEBULIZER 4 TIMES DAILY VENTOLIN HFA 90 mcg/actuation inhaler INHALE TWO PUFFS BY MOUTH FOUR TIMES A DAY NEEDED Proteinase Inhibitor, Human, 500 mg solr Inject 60 mg/kg/dose intravenously one time a week. gabapentin (NEURONTIN) 300 mg capsule Take 300 mg by mouth three times daily. tiotropium bromide (SPIRIVA RESPIMAT) 2.5 mcg/actuation inhaler Inhale 2 Sprays as instructed once daily. traMADol (ULTRAM) 50 mg tablet Take 50 mg by mouth every 4 hours as needed. Naproxen SR 500 mg EC tablet Take 1 tablet by mouth twice daily as needed. for pain. Take with food. Current Facility-Administered Medications on File Prior to Visit Medication perflutren lipid microspheres 1.3 mL in NaCl (PF) 0.9% 10 mL injection (DEFINITY) sodium chloride 0.9 % (flush) 10 mL (BD POSIFLUSH) perflutren lipid microspheres 1.3 mL in NaCl (PF) 0.9% 10 mL injection (DEFINITY) sodium chloride 0.9 % (flush) 10 mL (BD POSIFLUSH) REVIEW OF SYMPTOMS: GENERAL: No weight loss, malaise or fevers. RESPIRATORY: See HPI CARDIOVASCULAR: Negative for chest pain, leg swelling, hypertension, CHF or palpitations GI: No nausea, vomiting, or diarrhea PHYSICAL EXAMINATION: BP 121/60 Pulse 70 Temp 36.6 C (97.9 F) (Temporal) Ht 177.8 cm (5' 10) Wt 113.4 kg (250 lb) SpO2 94% BMI 35.87 kg/m General appearance: Well appearing, alert, in no acute distress, well-hydrated, well nourished. Nose/Sinuses: Nares normal, septum midline, mucosa normal, no drainage or sinus tenderness Oropharynx: Lips, mucosa, and tongue normal, teeth and gums normal, oropharynx normal, Mallampati III Lungs: Lungs clear to auscultation. No wheezing, rhonchi, rales. Reduced breath sounds, does well with forced expiratory manuevers. Heart: RRR without murmur, gallop, or rubs. No ectopy Abdomen: Normal abdominal exam, Abdomen soft, non-tender. Bowel sounds normal. No masses, organomegaly Extremities: No deformities, edema, skin discoloration, clubbing or cyanosis. Good capillary refill. Peripheral pulses: Normal DATA REVIEW: FeNO (05/20/21) - 8.0 ppb Spirometry 05/20/21 Ref. Range 04/13/2021 07:06 05/20/2021 11:53 Eosin% Latest Units: % 0.2 2.0 Abs Eosin Latest Ref Range: <0.46 k/uL 0.[address] 04/13/21 RESULT: Lines, tubes, and devices: None. Lung parenchyma and airways: Saber-sheath tracheal morphology with and diffuse bronchial thickening, mild bronchiectasis, emphysema with hyperinflated lucent lungs and mosaic attenuation from chronic small airway inflammation. 10 mm right upper lobe nodule (81) unchanged. Other tiny nodules also unchanged. Pleural space: No pleural effusion. No pleural thickening. Lower neck, lymph nodes, and mediastinum: Calcified nodes in the mediastinum and hilum from old granulomatous disease. No pathologically enlarged nodes. Heart, pericardium, and thoracic vessels: Heart and great vessel size within normal limits. No pericardial effusion. Moderate coronary calcifications. Bones and soft tissues: No destructive bone lesion. Chest wall is unremarkable. Upper abdomen: Calcifications within the from old granulomatous disease. Resource Agent (topogram) images: No additional findings. Spirometry and lung volumes 12/31/20 Component Latest Ref Rng & Units 05/20/2021 05/20/2021 11:53 AM 11:53 AM Elm Tree IgE <0.35 kU/l <0.35 Elm Tree Class Class 0 Class 0 [place] Tree IgE <0.35 kU/l <0.35 [place] Tree Class Class 0 Class 0 Short Ragweed IgE <0.35 kU/l <0.35 Short Ragweed Class Class 0 Class 0 Cat Dander IgE <0.35 kU/l <0.35 Cat Dander Class Class 0 Class 0 D. farinae IgE <0.35 kU/l <0.35 D. farinae Class Class 0 Class 0 Aspergillus fumigatus IgE <0.35 kU/l <0.35 <0.35 Aspergillus fumigatus Class Class 0 Class 0 Class 0 Mountain Juniper IgE <0.35 kU/l <0.35 Mountain Juniper Class Class 0 Class 0 Pigweed IgE <0.35 kU/l <0.35 Pigweed Class Class 0 Class 0 [id number] Thanh Grass <0.35 kU/l <0.35 Thanh Grass Class Class 0 Class 0 White Dhruv Tree IgE <0.35 kU/l <0.35 White Dhruv Tree Class Class 0 Class 0 [place] Tree IgE <0.35 kU/l <0.35 [place] Tree Class Class [address] [place]ecan Tree IgE <0.35 kU/l <0.35 [place]ec[place] Tree Class Class 0 Class 0 Alternaria tenuis IgE <0.35 kU/l <0.35 <0.35 Alternaria tenuis Class Class 0 Class 0 Class 0 Mucor racemosus IgE <0.35 kU/l <0.35 <0.35 Mucor racemosus Class Class 0 Class 0 Class 0 [place] Tree IgE <0.35 kU/l <0.35 [place] Tree Class Class 0 Class 0 Cockroach IgE <0.35 kU/l <0.35 Cockroach Class Class 0 Class 0 Rough Alvares Elder IgE <0.35 kU/l <0.35 Rough Alvares Elder Class Class 0 Class 0 Dog Dander IgE <0.35 kU/l <0.35 Dog Dander Class Class 0 Class 0 D. pteronyssinus IgE <0.35 kU/l <0.35 D. pteronyssinus Class Class 0 Class 0 Cladosporium herbarum IgE <0.35 kU/l <0.35 <0.35 Cladosporium herbarum Class Class 0 Class 0 Class 0 [place] Tree IgE <0.35 kU/l <0.35 [place] Tree Class Class 0 Class 0 Ivorian Thistle IgE <0.35 kU/l <0.35 [place]vorian Thistle Class Class 0 Class 0 [place] Grass IgE <0.35 kU/l <0.35 [place] Grass Class Class 0 Class 0 P. chrysogenum IgE <0.35 kU/l <0.35 P. chrysogenum Class Class 0 Class 0 [place] Tree IgE <0.35 kU/l <0.35 [place] Tree Class Class 0 Class 0 Solomon IgE <0.35 kU/l <0.35 Solomon Class Class 0 Class 0 Mouse Epithelium IgE <0.35 kU/l <0.35 Mouse Epithelium Class Class 0 Class 0 Coloma IgE <0.35 kU/l <0.35 [place] Class Class 0 Class 0 Jolene albicans IgE <0.35 kU/l <0.35 Jolene albicans Class Class 0 Class 0 Alpha 1 Antitrypsin 90 - 200 mg/dL 174 Alpha-1 Antitryp Interp Alpha-1 Antitrypsin Genotyping . . .PI*MZ Assessment: Mr. Angelo is a 65 YOM with severe COPD and a clinical story highly suggestive of asthma without a T2 profile. 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 AST and ALT are normal. Plan: - Increase ICS/LABA to high-dose ICS/LABA - Add nebulized budesonide on top of this to reach small airways - Add daily azithromycin for COPD/chronic bronchitis component - Continue LAMA - Discussed using SVEN prior to known triggers - Encouraged to continue increasing oxygen as needed for activity - Discussed conducting pulmonary rehabilitation exercises at home (given cleaning chemicals at facility) Most notably, I discussed with him on 05/29 to discontinue augmentation therapy as there is no benefit in PI*MZ individuals. Data review above updated to reflect testing ordered during encounter that resulted after our encounter. We will consider biologic if he does not improve with the uptitration of ICS, addition of nebulizedsteroid and chronic prophylactic anti-inflammatory macrolide therapy. RTC on June 26, discuss lung cancer screening at next visit. Orders Placed This Encounter [facility], RESPIRATORY REGION 8 Standing Status: Future Number of Occurrences: 1 Standing Expiration Date: 07/20/2021 ALGN MOLDS GROUP Standing Status: Future Number of Occurrences: 1 Standing Expiration Date: 07/20/2021 [id number] Standing Status: Future Number of Occurrences: 1 Standing Expiration Date: 07/20/2021 ALPHA-1 ANTITRYPSIN JOSE J Standing Status: Future Number of Occurrences: 1 Standing Expiration Date: 07/20/2021 COMP METABOLIC PANEL Standing Status: Future Number of Occurrences: 1 Standing Expiration Date: 07/20/2021 CBC with Differential Standing Status: Future Number of Occurrences: 1 Standing Expiration Date: 07/20/2021 ADULT - SPIROMETRY - BASELINE AND POST DILATOR Standing Status: Future Number of Occurrences: 1 Standing Expiration Date: 06/19/2022 Scheduling Instructions: Please call [phone] to schedule, cancel, or change an appointment. Order Specific Question: Should this patient be seen in a Pediatric Lab? Answer: No ADULT - NITRIC OXIDE, EXHALED Standing Status: Future Number of Occurrences: 1 Standing Expiration Date: 06/19/2022 Order Specific Question: Should this patient be seen in a Pediatric Lab? Answer: No fluticasone-vilanterol (BREO ELLIPTA) 200-25 mcg/dose inhaler Sig: Inhale 1 Inhalation as instructed once daily. Dispense: 150 Each Refill: 2 fluticasone-vilanterol (BREO ELLIPTA) 200-25 mcg/dose inhaler Sig: Inhale 1 Inhalation as instructed once daily. Dispense: 150 Each Refill: 2 budesonide (PULMICORT) 0.25 mg/2 mL nebulizer solution Sig: Use 2 mL via nebulizer twice daily. Dispense: 300 mL Refill: 2 azithromycin (ZITHROMAX) 250 mg tablet Sig: Take 1 tablet by mouth once daily. Dispense: 90 tablet Refill: 2 Darryl Willis MD documented [facility]Community [facility]* Diagnosis Centrilobular emphysema (HCC)- Primary Other emphysema [facility] Diagnosis Centrilobular emphysema (HCC)- Primary Other emphysema Severe persistent asthma without complication [facility] Diagnosis Adverse effect of drug, initial encounter Abnormal heart rate Other abnormal heart sounds [facility] Diagnosis Severe persistent asthma without complication- Primary Centrilobular emphysema (HCC) Other emphysema SOB (shortness of breath) Shortness [facility] breath [facility] Diagnosis Heterozygous alpha 1-antitrypsin deficiency (HCC) Mozqw-6-llllzonrtaw deficiency Severe persistent asthma without complication Centrilobular emphysema (HCC) Other [facility]se[facility] Diagnosis Severe persistent asthma without complication- Primary [facility]* Diagnosis Chronic obstructive pulmonary disease, unspecified COPD type (HCC)- Primary Severe persistent asthma without complication- [facility] Encounter for pre-transplant evaluation for lung transplant Other specified pre-operative examination Lung transplant candidate SOB (shortness of breath) 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 Encounter for long-term (current) use of steroids [facility] candidate- Primary Encounter for pre-transplant evaluation for lung transplant Other specified pre-operative examination SOB (shortness of breath) Shortness of breath care home current use of systemic steroids Encounter for long-term (current) use of steroids [facility]- Primary Encounter for pre-transplant evaluation for lung transplant Other specified pre-operative examination SOB (shortness of breath) Shortness of breath care home current use of systemic steroids Encounter for long-term (current) use of steroids [facility] Diagnosis Dyspnea, unspecified type- Primary [facility] Diagnosis Encounter for pre-transplant evaluation for lung transplant Other specified pre-operative examination Lung transplant candidate SOB (shortness of breath) Shortness of breath care home current use of systemic steroids Encounter for long-term (current) use of steroids [facility] Diagnosis Encounter for pre-transplant evaluation for lung transplant Other specified pre-operative examination Lung transplant candidate SOB (shortness of breath) 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 Encounter for long-term (current) use of steroids [facility] Diagnosis Encounter for pre-transplant evaluation for lung transplant Other specified pre-operative examination Lung transplant candidate SOB (shortness of breath) Shortness of breath care home current use of systemic steroids Encounter for long-term (current) use of steroids [facility] Diagnosis Encounter for pre-transplant evaluation for lung transplant Other specified pre-operative examination Lung transplant candidate SOB (shortness of breath) 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)- Primary Heterozygous alpha 1-antitrypsin deficiency (HCC) Ohsqb-8-istizroasmo deficiency Class 1 obesity due to excess calories with body mass index (BMI) of 33.0 to 33.9 in adult, unspecified whether serious comorbidity present Former cigarette smoker Personal history of tobacco use, presenting hazards to health [facility] Diagnosis Severe persistent asthma, uncomplicated- Primary Unspecified asthma AAT (qwkkn-7-ksgukfsuytv) deficiency (HCC) Ihehu-1-kplefqzduvm deficiency Bronchiectasis without complication (HCC) Bronchiectasis without acute exacerbation [facility]* Diagnosis Wheezing Lung transplant candidate SOB (shortness of breath) 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 Encounter for long-term (current) use of steroids [facility]* Diagnosis Severe persistent asthma, uncomplicated- Primary Unspecified asthma [facility] Diagnosis Severe persistent asthma, uncomplicated- Primary Unspecified asthma AAT (mgngt-2-xmzofzwkxiw) deficiency (HCC) Hidpe-8-epjzvawrpdw deficiency Bronchiectasis without complication (HCC) Bronchiectasis without acute exacerbation [facility] Diagnosis Severe persistent asthma, uncomplicated- Primary Unspecified asthma [facility] Diagnosis Severe persistent asthma, uncomplicated- Primary Unspecified asthma [facility]* Diagnosis Wheezing Lung transplant candidate SOB (shortness of breath) Shortness of breath care home current use of systemic steroids Encounter for long-term (current) use of steroids Bronchiectasis without complication (HCC)- Primary Bronchiectasis without acute exacerbation [facility]* Diagnosis Asthma with chronic obstructive pulmonary disease (COPD) (HCC)- Primary Chronic obstructive asthma, unspecified Stage 4 very severe COPD by GOLD classification (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 Encounter for long-term (current) use of steroids [facility] Lung transplant candidate- Primary Wheezing SOB (shortness of breath) Shortness of breath care home current use of systemic steroids Encounter for long-term (current) use of steroids [facility] Diagnosis Chronic obstructive pulmonary disease, unspecified COPD type (HCC)- Primary Transplant Unspecified organ or tissue replaced by transplant Encounter for pre-transplant evaluation for lung transplant Other specified pre-operative examination Lung transplant candidate SOB (shortness of breath) Shortness of breath care home current use of systemic steroids Encounter for long-term (current) use of steroids [facility] noteNo assessment information [facility]WBarn[facility] Work Phone: Evaluation note* Diagnosis Acute bronchitis with chronic obstructive pulmonary disease (COPD) (HCC)- Primary Obstructive chronic bronchitis with acute bronchitis Hypertensive chronic kidney disease with stage 1 through stage 4 chronic kidney disease, or unspecified chronic kidney disease Encounter for screening for malignant neoplasm of prostate Special screening for malignant neoplasm of prostate Lung transplant candidate SOB (shortness of breath) Shortness of breath care home current use of systemic steroids Encounter for long-term (current) use of steroids [facility] Diagnosis Stage 4 very severe COPD by GOLD classification ([facility])- Primary Moderate persistent asthma without complication Unspecified asthma Heterozygous alpha 1-antitrypsin deficiency (HCC) Dcbqf-1-zirnolzfmem deficiency Bronchiectasis without complication (HCC) Bronchiectasis without acute exacerbation Chronic hypoxemic respiratory failure (HCC) Chronic respiratory failure Pre-transplant evaluation for lung transplant [facility] Diagnosis Transplant Unspecified organ or tissue replaced by transplant Chronic obstructive pulmonary disease, unspecified COPD type (HCC) Encounter for pre-transplant evaluation for lung transplant Other specified pre-operative examination Lung transplant candidate SOB (shortness of breath) Shortness of breath care home current use of systemic steroids Encounter for long-term (current) use of steroids Acute bronchitis with chronic obstructive pulmonary disease (COPD) (HCC) Obstructive chronic bronchitis with acute bronchitis Hypertensive chronic kidney disease with stage 1 through stage 4 chronic kidney disease, or unspecified chronic kidney disease Pre-transplant evaluation for lung transplant documented in this encounter [facility] note* Diagnosis Awaiting transplantation of lung- Primary Acute bronchitis with chronic obstructive pulmonary disease (COPD) (HCC) Obstructive chronic bronchitis with acute bronchitis Hypertensive chronic kidney disease with stage 1 through stage 4 chronic kidney disease, or unspecified chronic kidney disease Dietary counseling and surveillance Dietary surveillance and counseling Pre-transplant evaluation for lung transplant documented in this encounter [facility] note* Diagnosis Chronic obstructive pulmonary disease, unspecified COPD type (HCC)- Primary documented in this encounter [facility]* Diagnosis Lung transplant candidate- Primary Encounter for screening for malignant neoplasm of prostate Special screening for malignant neoplasm of prostate SOB (shortness of breath) 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 Encounter for long-term (current) use of steroids Screening for prostate cancer Special screening for malignant neoplasm of prostate documented in this encounter [facility] note* Diagnosis Encounter for pre-transplant evaluation for lung transplant- Primary Other specified pre-operative examination Transplant Unspecified organ or tissue replaced by transplant Chronic obstructive pulmonary disease, unspecified COPD type (HCC) Lung transplant candidate SOB (shortness of breath) Shortness of breath care home current use of systemic steroids Encounter for long-term (current) use of steroids documented in this encounter [facility] note* Diagnosis Pre-transplant evaluation for lung transplant- Primary documented in this encounter [facility] note* Diagnosis Chronic obstructive pulmonary disease, unspecified COPD type (HCC)- Primary Transplant Unspecified organ or tissue replaced by transplant Encounter for pre-transplant evaluation for lung transplant Other specified pre-operative examination Lung transplant candidate SOB (shortness of breath) 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) Encounter for pre-transplant evaluation for lung transplant Other specified pre-operative examination Lung transplant candidate SOB (shortness of breath) Shortness of breath care home current use of systemic steroids Encounter for long-term (current) use of steroids [facility] Diagnosis Adult BMI 33.0-33.9 kg/sq m- Primary Body Mass Index 33.0-33.9, adult Transplant Unspecified organ or tissue replaced by transplant Chronic obstructive pulmonary disease, unspecified COPD type ([facility]) Encounter for pre-transplant evaluation for lung transplant Other specified pre-operative examination Lung transplant candidate SOB (shortness of breath) Shortness of breath care home current use of systemic steroids Encounter for long-term (current) use of steroids Stenosis of right carotid artery Occlusion and stenosis of carotid artery without mention of cerebral infarction 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) [facility] Diagnosis Osteoporosis screening- Primary Special screening for osteoporosis Encounter for pre-transplant evaluation for lung transplant Other specified pre-operative examination care home current use of systemic steroids Encounter for long-term (current) use of steroids Vitamin D deficiency Unspecified vitamin D deficiency [facility]* Diagnosis [facility]- Primary [facility] transplant candidate- Primary SOB (shortness of breath) Shortness of breath care home current use of systemic steroids Encounter for long-term (current) use of steroids [facility]* Diagnosis [facility]- Primary [facility] Diagnosis Asthma with chronic obstructive pulmonary disease (COPD) (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 Other genetic carrier status [facility]* Diagnosis Dyspnea and respiratory abnormalities Other dyspnea and respiratory abnormality Lung transplant candidate SOB (shortness of breath) Shortness of breath care home current use of systemic steroids Encounter for long-term (current) use of steroids Dyspnea and respiratory abnormalities- Primary Other dyspnea and respiratory abnormality [facility]* Diagnosis Lung transplant candidate- Primary SOB (shortness of breath) 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 Encounter for long-term (current) use of steroids [facility]* Diagnosis Dyspnea and respiratory abnormalities- Primary Other dyspnea and respiratory abnormality [facility]* Diagnosis Lung transplant candidate- Primary SOB (shortness of breath) 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 Encounter for long-term (current) use of steroids [facility]* Diagnosis Lung transplant candidate SOB (shortness of breath) 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 Encounter for long-term (current) use of steroids [facility]* Diagnosis Lung transplant candidate SOB (shortness of breath) Shortness of breath care home current use of systemic steroids Encounter for long-term (current) use of steroids [facility]* Diagnosis Pre-transplant evaluation for lung transplant [facility]* Diagnosis Lung transplant candidate- Primary SOB (shortness of breath) Shortness of breath care home current use of systemic steroids Encounter for long-term (current) use of steroids [facility]* Diagnosis 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)- Primary Lung replaced by transplant [facility]* Diagnosis 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)- Primary Lung replaced by transplant [facility]* Diagnosis 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, bilateral (HCC)- Primary Lung replaced by transplant 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) Lung replaced by transplant [facility]* Diagnosis 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)- Primary Lung replaced by transplant Dyspepsia Dyspepsia and other specified disorders of function of stomach Postoperative pain Other acute postoperative pain 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) Lung replaced by transplant Bronchiolar disease Other diseases of trachea and bronchus [facility]* Diagnosis 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) Lung replaced by transplant 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) Lung replaced by transplant Bronchiolar disease Other diseases of trachea and bronchus [facility]* Diagnosis Lung transplant recipient (HCC)- Primary [facility]* Diagnosis Dyspepsia Dyspepsia and other specified disorders of function of stomach 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) Lung replaced by transplant [facility]* Diagnosis 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)- Primary Lung replaced by transplant [facility]* Diagnosis Lung transplant recipient (HCC)- Primary Change or removal of drains Other specified aftercare following surgery [facility]* Diagnosis Dyspepsia Dyspepsia and other specified disorders of function of stomach 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) Lung replaced by transplant [facility]* Diagnosis Research study patient- [facility] Diagnosis Lung transplant recipient (HCC)- Primary Change or removal of drains Other specified aftercare following surgery [facility]* Diagnosis 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)- Primary Lung replaced by transplant [facility]* Diagnosis 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)- Primary Lung replaced by transplant [facility]* Diagnosis 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) Lung replaced by transplant [facility]* Diagnosis 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) Lung replaced by transplant [facility]* Diagnosis S/P lung transplant (HCC)- Primary Lung replaced by transplant [facility]* Diagnosis Research study patient- Primary Lung transplant recipient (HCC)- Primary Aftercare following organ transplant Human immunodeficiency virus (HIV) disease (HCC) Human immunodeficiency virus [HIV] disease [facility] Diagnosis 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)- Primary Lung replaced by transplant Other chronic pain [facility]* Diagnosis Aftercare following organ transplant- Primary Lung transplant recipient (HCC) Encounter for monitoring tacrolimus therapy Encounter for therapeutic drug monitoring Essential hypertension Unspecified essential hypertension Hyperlipidemia, unspecified hyperlipidemia type Gastroesophageal reflux disease without esophagitis Esophageal reflux Human immunodeficiency virus (HIV) disease (HCC) Human immunodeficiency virus [HIV] disease Steroid-induced osteopenia Disorder of bone and cartilage, unspecified Obesity, Class II, BMI 35-39.9 Obesity, unspecified Methicillin resistant Staphylococcus aureus colonization Carrier or suspected carrier of Methicillin resistant Staphylococcus aureus [facility]* Diagnosis 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) Lung replaced by transplant Other chronic pain [facility]* Diagnosis Lung transplant recipient (HCC)- Primary Aftercare following organ transplant Human immunodeficiency virus (HIV) disease (HCC) Human immunodeficiency virus [HIV] disease Encounter for monitoring tacrolimus therapy Encounter for therapeutic drug monitoring Essential hypertension Unspecified essential hypertension Hyperlipidemia, unspecified hyperlipidemia type Gastroesophageal reflux disease without esophagitis Esophageal reflux Steroid-induced osteopenia Disorder of bone and cartilage, unspecified Obesity, Class II, BMI 35-39.9 Obesity, unspecified Methicillin resistant Staphylococcus aureus colonization Carrier or suspected carrier of Methicillin resistant Staphylococcus aureus [facility]* Diagnosis Lung transplant recipient (HCC)- Primary Aftercare following organ transplant Human immunodeficiency virus (HIV) disease (HCC) Human immunodeficiency virus [HIV] disease Encounter for monitoring tacrolimus therapy Encounter for therapeutic drug monitoring Essential hypertension Unspecified essential hypertension Hyperlipidemia, unspecified hyperlipidemia type Gastroesophageal reflux disease without esophagitis Esophageal reflux Steroid-induced osteopenia Disorder of bone and cartilage, unspecified Obesity, Class II, BMI 35-39.9 Obesity, unspecified Methicillin resistant Staphylococcus aureus colonization Carrier or suspected carrier of Methicillin resistant Staphylococcus aureus Pure hypertriglyceridemia Pure hyperglyceridemia 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) Lung replaced by transplant Encounter for screening for osteoporosis Special screening for osteoporosis care home current use of systemic steroids Encounter for long-term (current) use of steroids [facility] Diagnosis Lung transplant recipient (HCC) Aftercare following organ transplant Human immunodeficiency virus (HIV) disease ([facility]) Human immunodeficiency virus [HIV] disease Encounter for monitoring tacrolimus therapy Encounter for therapeutic drug monitoring Essential hypertension Unspecified essential hypertension Hyperlipidemia, unspecified hyperlipidemia type Gastroesophageal reflux disease without esophagitis Esophageal reflux Steroid-induced osteopenia Disorder of bone and cartilage, unspecified Obesity, Class II, BMI 35-39.9 Obesity, unspecified Methicillin resistant Staphylococcus aureus colonization Carrier or suspected carrier of Methicillin resistant Staphylococcus aureus [facility]* Diagnosis Achalasia Achalasia and cardiospasm [facility]* Diagnosis Achalasia Achalasia and cardiospasm [facility]* Diagnosis Lung transplant recipient (HCC)- Primary Aftercare following organ transplant Encounter for monitoring tacrolimus therapy Encounter for therapeutic drug monitoring Essential hypertension Unspecified essential hypertension Gastroesophageal reflux disease without esophagitis Esophageal reflux Pure hypertriglyceridemia Pure hyperglyceridemia Encounter for screening for osteoporosis Special screening for osteoporosis care home current use of systemic steroids Encounter for long-term (current) use of steroids 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) [facility] by [facility] After[facility] following organ transplant- Primary 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) Lung replaced by transplant Encounter for monitoring tacrolimus therapy Encounter for therapeutic drug monitoring Essential hypertension Unspecified essential hypertension Hyperlipidemia, unspecified hyperlipidemia type Steroid-induced osteopenia Disorder of bone and cartilage, unspecified Obesity, Class II, BMI 35-39.9 Obesity, unspecified Gastroesophageal reflux disease without esophagitis Esophageal reflux 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) [facility] (HCC) Aftercare following organ transplant Encounter for monitoring tacrolimus therapy Encounter for therapeutic drug monitoring Essential hypertension Unspecified essential hypertension Gastroesophageal reflux disease without esophagitis Esophageal reflux Pure hypertriglyceridemia Pure hyperglyceridemia Encounter for screening for osteoporosis Special 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 Encounter for long-term (current) use of steroids Lung transplant recipient (HCC) Aftercare following organ transplant Encounter for monitoring tacrolimus therapy Encounter for therapeutic drug monitoring Essential hypertension Unspecified essential hypertension Gastroesophageal reflux disease without esophagitis Esophageal reflux Pure hypertriglyceridemia Pure hyperglyceridemia Encounter for screening for osteoporosis Special 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 Encounter for long-term (current) use of steroids 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) [facility]) Aftercare following organ transplant Encounter for monitoring tacrolimus therapy Encounter for therapeutic drug monitoring Essential hypertension Unspecified essential hypertension Gastroesophageal reflux disease without esophagitis Esophageal reflux Pure hypertriglyceridemia Pure hyperglyceridemia Encounter for screening for osteoporosis Special screening for osteoporosis care home current use of systemic steroids Encounter for long-term (current) use of steroids Lung transplant recipient (HCC) Aftercare following organ transplant Encounter for monitoring tacrolimus therapy Encounter for therapeutic drug monitoring Essential hypertension Unspecified essential hypertension Gastroesophageal reflux disease without esophagitis Esophageal reflux Pure hypertriglyceridemia Pure hyperglyceridemia Encounter for screening for osteoporosis Special 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 Encounter for long-term (current) use of steroids 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) 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)- Primary [facility] COVID-19- Primary 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) [facility] Diagnosis 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-related cataract, right eye- Primary 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-related cataract, left eye Punctate keratitis, bilateral Meibomian gland dysfunction (MGD) of upper and lower lids of both 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 Lung replaced by transplant Hyperlipidemia, unspecified hyperlipidemia type [facility] Diagnosis Combined forms of age-related cataract of right eye- Primary Other and combined forms of senile cataract Combined forms of age-related cataract of left eye Other and combined forms of senile cataract 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 Lung replaced by transplant Hypercholesteremia Pure hypercholesterolemia 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-related cataract, right eye 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) [facility] Diagnosis Combined forms of age-related cataract of right eye- Primary Gastroesophageal reflux disease Esophageal reflux documented in this encounter [facility] Work Phone: Evaluation note* Diagnosis Status post cataract extraction and insertion of intraocular lens of right eye- Primary 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-related cataract, left eye 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 Lung replaced by transplant Hypercholesteremia Pure hypercholesterolemia 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) [facility] replaced by [facility] Diagnosis Combined forms of age-related cataract of left eye- Primary documented in this encounter [facility] Work Phone: Evaluation note* Diagnosis Status post cataract extraction and insertion of intraocular lens of left eye- Primary Status post cataract extraction and insertion of intraocular lens of right eye 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) [facility] Diagnosis Essential hypertension- Primary Unspecified essential hypertension Encounter for immunization Need for other specified prophylactic vaccination against single bacterial disease Mixed hyperlipidemia 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 Lung replaced by transplant Gastroesophageal reflux disease without esophagitis Esophageal reflux Obesity, Class I, BMI 30-34.9 Obesity, unspecified Status post cataract extraction and insertion of intraocular lens of left eye Steroid-induced osteopenia Disorder of bone and cartilage, unspecified 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) 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) Lung [facility] by [facility] Diagnosis Colon cancer screening Special screening for malignant neoplasms, colon documented in this encounter [facility] Work Phone: Evaluation note* Diagnosis 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) Lung replaced by transplant Research study patient- Primary [facility] Diagnosis 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, bilateral (HCC)- Primary Lung replaced by transplant Encounter for aftercare following lung transplant (HCC) Aftercare following organ transplant Encounter for monitoring tacrolimus therapy Encounter for therapeutic drug monitoring Aftercare following organ transplant Encounter for therapeutic drug level monitoring Encounter for therapeutic drug monitoring Current chronic use of systemic steroids Steroid-induced osteopenia Disorder of bone and cartilage, unspecified Essential hypertension Unspecified essential hypertension Gastroesophageal reflux disease without esophagitis Esophageal reflux 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) Lung replaced by transplant Abnormal findings on diagnostic imaging of other parts of digestive tract Encounter for screening for malignant neoplasm of prostate Special screening for malignant neoplasm of prostate [facility] Diagnosis 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) [facility] Follow-up examination after lung transplant (HCC)- Primary Aftercare following organ transplant 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) [facility] 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)- Primary [facility] Diagnosis JODY (generalized anxiety disorder)- Primary Generalized anxiety disorder [facility] 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)- Primary [facility] Diagnosis Aspergillus (HCC)- Primary Aspergillosis S/P lung transplant (HCC) Lung [facility] Diagnosis JODY (generalized anxiety disorder) Generalized anxiety disorder [facility] Diagnosis 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, bilateral (HCC) [facility] Diagnosis Follow-up examination after lung transplant (HCC) Aftercare following [facility] Diagnosis Steroid-induced osteopenia- Primary Disorder of bone and cartilage, unspecified 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, bilateral (HCC) Lung replaced by transplant 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 Encounter for long-term (current) use of steroids Vitamin D deficiency Unspecified vitamin D deficiency ILD (interstitial lung disease) (HCC) Postinflammatory pulmonary fibrosis [facility] Preoperative examination- Primary Preoperative examination, unspecified 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) Lung replaced by transplant ILD (interstitial lung disease) (HCC) Postinflammatory pulmonary fibrosis [facility] Diagnosis ED (erectile dysfunction) of organic origin- Primary Impotence of organic origin JODY (generalized anxiety disorder) Generalized anxiety disorder [facility] Diagnosis Acute pain of right knee- Primary JODY (generalized anxiety disorder) Generalized anxiety disorder ED (erectile dysfunction) of organic origin Impotence of organic origin [facility] Diagnosis Acute pain of right knee [facility] Diagnosis Encounter for monitoring tacrolimus therapy- Primary Encounter for therapeutic drug monitoring Aftercare following organ transplant Steroid-induced osteopenia Disorder of bone and cartilage, unspecified Current chronic use of systemic steroids [facility] Diagnosis Osteoarthritis of right knee, unspecified osteoarthritis type- Primary Acute pain of right knee Aftercare following organ transplant- Primary 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 Lung replaced by transplant Encounter for monitoring tacrolimus therapy Encounter for therapeutic drug monitoring Essential hypertension Unspecified essential hypertension Mixed hyperlipidemia Steroid-induced osteopenia Disorder of bone and cartilage, unspecified Gastroesophageal reflux disease without esophagitis Esophageal reflux Obesity, Class II, BMI 35-39.9 Obesity, unspecified [facility] Diagnosis Research study patient- Primary Aftercare following organ transplant- Primary 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 Lung replaced by transplant Encounter for monitoring tacrolimus therapy Encounter for therapeutic drug monitoring Essential hypertension Unspecified essential hypertension Mixed hyperlipidemia Steroid-induced osteopenia Disorder of bone and cartilage, unspecified Gastroesophageal reflux disease without esophagitis Esophageal reflux Obesity, Class II, BMI 35-39.9 Obesity, unspecified [facility] Diagnosis Aftercare following organ transplant Steroid-induced osteopenia Disorder of bone and cartilage, unspecified Current chronic use of systemic steroids [facility] Steroid-induced osteopenia- Primary Disorder of bone and cartilage, unspecified 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, bilateral (HCC) Lung replaced by transplant 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 Encounter for long-term (current) use of steroids [facility] Diagnosis Primary osteoarthritis of right knee- Primary Primary localized osteoarthrosis, lower leg [facility] Diagnosis Primary osteoarthritis of right knee- Primary Primary localized osteoarthrosis, lower leg [facility] Diagnosis Research study patient- Primary Aftercare following organ transplant- Primary 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 Lung replaced by transplant Encounter for monitoring tacrolimus therapy Encounter for therapeutic drug monitoring Essential hypertension Unspecified essential hypertension Mixed hyperlipidemia Steroid-induced osteopenia Disorder of bone and cartilage, unspecified Gastroesophageal reflux disease without esophagitis Esophageal reflux [facility] Diagnosis Steroid-induced osteopenia- Primary Disorder of bone and cartilage, unspecified 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, bilateral (HCC) Lung replaced by transplant care home current use of systemic steroids Encounter for long-term (current) use of steroids Vitamin D deficiency Unspecified vitamin D deficiency care home (current) use 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 Elevated alkaline phosphatase level Other nonspecific abnormal serum enzyme levels [facility] Diagnosis Primary osteoarthritis of right knee- Primary Primary localized osteoarthrosis, lower leg Primary osteoarthritis of right knee Primary localized osteoarthrosis, lower leg [facility] Diagnosis Chronic pain of right knee- Primary Primary osteoarthritis of right knee Primary localized osteoarthrosis, lower leg Primary osteoarthritis of right knee Primary localized osteoarthrosis, lower leg [facility] Diagnosis Pain- Primary Generalized pain [facility] Diagnosis Wellness examination- Primary Screening for depression Encounter for screening examination for other mental health and behavioral disorders JODY (generalized anxiety disorder) Generalized anxiety disorder ED (erectile dysfunction) of organic origin Impotence of organic origin Primary osteoarthritis of right knee Primary localized osteoarthrosis, lower leg Essential hypertension Unspecified essential hypertension Gastroesophageal reflux disease without esophagitis Esophageal reflux 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 Lung replaced by transplant Screening for diabetes mellitus Medicare annual wellness visit, subsequent Routine general medical examination at a health care facility [facility] Diagnosis JODY (generalized anxiety disorder) Generalized anxiety disorder ED (erectile dysfunction) of organic origin Impotence of organic origin [facility] Diagnosis 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)- Primary Lung replaced by transplant [facility] Diagnosis Primary osteoarthritis of right knee- Primary Primary localized osteoarthrosis, lower leg 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 (HCC) care home (current) use of systemic steroids Primary osteoarthritis of right knee Primary localized osteoarthrosis, lower leg [facility] Diagnosis Primary osteoarthritis of right knee Primary localized osteoarthrosis, lower leg [facility] Diagnosis Onset Date Resolution Status Admit Date Daytime hypersomnia acute Augus t 2024 8:59am [facility] Work Phone: Evaluation note* Diagnosis Primary osteoarthritis of right knee- Primary Primary localized osteoarthrosis, lower leg [facility] Diagnosis Diarrhea, unspecified type- Primary documented in this encounter [facility] Plan of care note* Visit Details Visit Type -SN SOC Discipline -Detention Problems Problem Description Start Date Status Goals Interve ntions SN Integumentary/Wound s Disciplines: 08/08/2022 Active 1 goal linked to scheduled/documen radha intervention 4 goal interventions scheduled/document ed in this visit SN Cardiovascular Condition Disciplines: SN 08/08/2022 Active 1 goal linked to scheduled/documen radha intervention 1 goal intervention scheduled/document ed in this visit SN Learning Assessment Disciplines: SN 08/08/2022 Active 1 goal linked to scheduled/documen radha intervention 1 goal intervention scheduled/document ed in this visit SN COPD Disciplines: SN 08/08/2022 Active 1 goal linked to scheduled/documen radha intervention 1 goal intervention scheduled/document ed in this visit Medication Education Disciplines: Skilled Services 08/08/2022 Active 1 goal linked to scheduled/documen radha intervention 1 goal intervention scheduled/document ed in this visit Sepsis Disciplines: Skilled Services 08/08/2022 Active 1 goal linked to scheduled/documen radha intervention 1 goal intervention scheduled/document ed in this visit Post-Transplant Disciplines: Skilled Services 08/08/2022 Active 1 goal linked to scheduled/documen radha intervention 1 goal intervention scheduled/document ed in this visit Risk for skin breakdown Disciplines: Skilled Services 08/08/2022 Active 1 goal linked to scheduled/documen radha intervention 1 goal intervention scheduled/document ed in this visit Physician Specific Parameters Disciplines: Skilled Services 08/08/2022 Active 1 goal linked to scheduled/documen radha intervention 1 goal intervention scheduled/document ed in this visit Risk for Falls Disciplines: Skilled Services 08/08/2022 Active 1 goal linked to scheduled/documen radha intervention 1 goal intervention scheduled/document ed in this visit Pain Disciplines: Skilled Services 08/08/2022 Active 1 goal linked to scheduled/documen radha intervention 1 goal intervention scheduled/document ed in this visit High Risk Medications Disciplines: Skilled Services 08/08/2022 Active 1 goal linked to scheduled/documen radha intervention 3 goal interventions scheduled/document ed in this visit Discharge Disciplines: Skilled Services 08/08/2022 Active 1 goal linked to scheduled/documen radha intervention 1 goal intervention scheduled/document ed in this visit Advance Directives Disciplines: Skilled Services 08/08/2022 Active 1 goal linked to scheduled/documen radha intervention 1 goal intervention scheduled/document ed in this visit Goals Goal Associated Problem Outcome Goal Met? Visit Notes Patient/Caregiver will have improved healing and be free of signs and symptoms of complications Description: Patient/caregiver will verbalize management strategies to promote wound healing & prevent complications as evidenced by improved healing & no complications by 11 September 2022. SN Integumentary/Wounds No Improved management of cardiovascular disease Description: Improve patient/caregiver management of cardiac disease as evidenced by patient/caregiver ability to teach back cardiac management strategies by 11 September 2022. SN Cardiovascular Condition No Demonstrate understanding of education Description: Patient and/or caregiver will verbalize understanding of educational instruction provided throughout certification period. SN Learning Assessment No Improved management of COPD Description: Improve COPD management as evidenced by decreased reports of dyspnea, medication compliance, and patient able to teach back strategies to manage condition. Goal to be achieved by 11 September 2022. SN COPD No Patient/caregiver will demonstrate ability to obtain, store, identify and administer ordered medications, keep accurate medication list in home, and adhere to medication schedule Description: Patient/caregiver will demonstrate ability to obtain, store, identify and administer ordered medications, keep accurate medication list in home, and adhere to medication schedule by 06 October 2022. Medication Education No Patient/caregiver will be able to identify and report symptoms of sepsis Description: Patient/caregiver will be able to identify signs/symptoms of sepsis infection and will verbalize actions to take if suspected by 06 October 2022. Sepsis No Patient will have uncomplicated recovery after transplant Description: Patient and/or caregiver will verbalize and/or demonstrate understanding of post-transplant precautions, complications, and self-management to be achieved by 06 October 2022. Post-Transplant No Manage risk for skin breakdown Description: Patient/caregiver will verbalize and demonstrate understanding of the risks and measures to be taken to monitor and prevent skin breakdown by 06 October 2022. Risk for skin breakdown No Patient to maintain parameters within physician-specified ranges throughout certification period Physician Specific Parameters No Manage Risk for falls Description: Patient/caregiver will verbalize knowledge of individualized fall prevention strategies by 06 October 2022. Risk for Falls No Manage Pain Description: Patient/caregiver will verbalize knowledge and understanding of appropriate techniques to control pain, including pain medication and non-pharmacological techniques. Patient will verbalize or demonstrate an acceptable level of pain as evidenced by a pain score of 0-3/10 and improvement in ability to perform activities of daily living to be achieved by 06 October 2022. Pain No Patient/caregiver will teach back high risk medication side effect and precaution education High Risk Medications No Manage discharge planning Description: Patient/caregiver will verbalize understanding of ongoing discharge plan provided related to disease management, arrangements for outpatient and/or community services, obtaining medications, supplies, and DME, as needed throughout certification period. Discharge No Patient/caregiver will make healthcare providers aware of and any changes to Advance Directives throughout certification period Advance Directives No Interventions Intervention Associated Problem/Goal Status Variance Visit Notes Drain Care: Perform drain care Description: Drain care as follows Cleanse around insertion sites with soap and water, allow to dry, cover with dry sterile dressing. Change daily. Problem:SN Integumentary/Wounds Goal:Patient/Caregive r will have improved healing and be free of signs and symptoms of complications Completed caregiver instructed on and return demonstrated drain care as ordered by Physician. Wound Care: Perform wound care (1) Description: Incision open to air. Sutures/lidia to be removed at follow up with transplant team May cover with dry sterile dressing for drainage. Change daily. Notify surgeon if drainage occurs or S/S of infection/complicatio ns. Problem:SN Integumentary/Wounds Goal:Patient/Caregive r will have improved healing and be free of signs and symptoms of complications Completed Completed by SN. Patient did tolerate well. Instruct patient/caregiver healing process and management measures to promote healing and avoid complications Problem:SN Integumentary/Wounds Goal:Patient/Caregive r will have improved healing and be free of signs and symptoms of complications Completed patient and caregiver instructed on the following: healing process, signs and symptoms of infection, importance of good nutrition, importance of managing blood sugars and when to report symptoms. Instruct Patient/Caregiver on wound/incision care procedure as ordered by physician Problem:SN Integumentary/Wounds Goal:Patient/Caregive r will have improved healing and be free of signs and symptoms of complications Completed patient and caregiver instructed on wound care as ordered by Physician. Instruct on cardiovascular disease process and management of condition Description: Patient has following cardiac diagnosis(es): Hypertension. Problem:SN Cardiovascular Condition Goal:Improved management of cardiovascular disease Completed patient and caregiver instructed on cardiac disease process and self monitoring & symptom reporting. Instruct and educate on knowledge deficits Problem:SN Learning Assessment Goal:Demonstrate understanding of education Completed patient verbalize and/or demonstrate understanding of nursing education completed today. Education methods include: verbal cues. Further education required to improve knowledge and compliance with drain care management. Acute COPD Description: Instruct on defintion of COPD, signs and symptoms of COPD exacerbation, use of zone sheet, use of MDIs, difference between rescue vs maintenance inhalers, use of nebulizer, smoking cessation, breathing management including pursed lip breathing, diaphragmatic breathing, positioning to reduce SOB, controlled coughing, use of incentive spirometer, and use of acapela as found in the COPD binder. Problem:SN COPD Goal:Improved management of COPD Completed patient and caregiver instructed on signs and symptoms of COPD exacerbation. Medication Education Description: Evaluate/instruct patient/caregiver on obtaining, storing, identifying and administering ordered medications as well as keeping accurate medication list in the home and adhereing to medication schedule Problem:Medication Education Goal:Patient/caregive r will demonstrate ability to obtain, store, identify and administer ordered medications, keep accurate medication list in home, and adhere to medication schedule Completed Patient instructed on importance of keeping accurate medication list in home, adhering to medication schedule, proper storage of medications and Medication, route, dose, frequency, purpose, and side effects of all medications. Risk of Sepsis Description: Patient is at risk for sepsis. Monitor closely for s/s of sepsis. Problem:Sepsis Goal:Patient/caregive r will be able to identify and report symptoms of sepsis Completed Assess and instruct patient/caregiver on post-transplant precautions, complications, and self-management strategies Description: Instruct patient/caregiver on after-care for Lung transplant. Problem:Post-Transpla nt Goal:Patient will have uncomplicated recovery after transplant Completed Patient instructed on preventing infection as referred to in post-transplant binder. Instruct on the risks and measures to be taken to prevent skin breakdown Description: Patient's Fernando Score is: 18. A Fernando score <= to 18 indicates risk for skin breakdown. Problem:Risk for skin breakdown Goal:Manage risk for skin breakdown Completed patient and caregiver instructed on maintaining skin integrity including: The need for every 1-2 hour turns, position changes, and maintaining activity as tolerated, Reducing risk of friction and shear, including use of draw sheet as appropriate and Elevating and protecting heels Evaluation for pressure reduction surfaces completed for bed and recommendations made. SPO2 Description: Notify Regina Decker APRN.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 MANAGER if pulse ox is <92% at rest. Problem:Physician Specific Parameters Goal:Patient to maintain parameters within physician-specified ranges throughout certification period Completed Instruct on individual fall risk factors and strategies to prevent falls and injuries caused by falls. Problem:Risk for Falls Goal:Manage Risk for falls Completed SN: Patient instructed on Eliminating Environmental Hazards: Keep pathways clear, Remove unsafe rugs, Move furniture from pathways, Keep rooms and walkways well lit, Install hand rails/grab bars, Wear supportive shoes or non-skid socks and Keep frequently used items within reach Instruct on pain and instruct on strategies to control pain Problem:Pain Goal:Manage Pain Completed patient instructed on techniques to control pain including Pharmacological measures. Opioids- educated on high risk medication Problem:High Risk Medications Goal:Patient/caregive r will teach back high risk medication side effect and precaution education Completed patient educated on taking medication(s) as prescribed by provider. Do not stop medication or alter doses without speaking with your provider. Discuss medication effectiveness or side effect concerns with your provider and home care team. Only take opioids as prescribed, do not share your medications, and take proper precautions in storing and properly disposing of opioids once no longer needed. Possible side effects of opioid medication including sedation, decreased rate of breathing, and constipation. Report over sedation to prescribing provider and practice deep breathing techniques every hour while awake. Prevent constipation by increasing water and fiber intake, increasing activity as tolerated, and use stool softener(s) as prescribed. Hypoglycemic (including insulin)- educated on high risk medication Problem:High Risk Medications Goal:Patient/caregive r will teach back high risk medication side effect and precaution education Completed patient educated on taking medication(s) as prescribed by provider. Do not stop medication or skip/alter doses without speaking with your provider. Discuss medication effectiveness or side effect concerns with your provider and home care team. Check blood sugars and keep log as ordered by provider. Monitor for side effects of hypoglycemia such as increased weakness or shaking, moist skin, sweating, fast heartbeat, dizziness, sudden hunger, confusion, pale skin, numbness in mouth or tongue, irritability, nervousness, unsteadiness, nightmares, bad dreams, and restless sleep. Checking your blood sugar routinely and eating a consistent diabetic diet can help regulate blood sugars and reduce side effects. Antibiotic- educated on high risk medication Problem:High Risk Medications Goal:Patient/caregive r will teach back high risk medication side effect and precaution education Completed patient educated on taking medication(s) as prescribed by provider. Do not stop medication or alter doses without speaking with your provider. Discuss medication effectiveness or side effect concerns with your provider and home care team. Take the full dispensed amount even if you start feeling better, as bacteria can become resistant to antibiotic treatment if you do not finish your prescription. Common side effects are upset stomach and diarrhea. Take your antibiotics with food unless otherwise indicated to help with indigestion. Taking an mbwf-plc-qmvbqfo probiotic or eating yogurt with live and active cultures three times a day can help prevent antibiotic-associated diarrhea. Call your provider immediately if you develop rashes or hives as this could be a delayed allergic reaction. Seek emergency treatment if you develop severe allergic reaction symptoms such as mouth or tongue swelling. Instruct on ongoing discharge plan Problem:Discharge Goal:Manage discharge planning Completed Ongoing Discharge plan: Discharge plan discussed with patient including frequency and duration for home SN and plan for transition to: live independently at home without ongoing services. Determine patient's Advance Directive Status Description: Patient does have advance directives. Patient's Advance Directives determined to be available in Home Healthcare DPOA and Living Will. Problem:Advance Directives Goal:Patient/caregive r will make healthcare providers aware of and any changes to Advance Directives throughout certification period Completed Discussed Advance Directives with Patient and/or Caregiver. Referred patient to Home Care handbook for further information on Healthcare DPOA & Living Will. documented in this encounter [facility]'s home Plan of care note* Visit Details Visit Type -PT EVAL Discipline -Physical Therapy Problems Problem Description Start Date Status Goals Interve ntions Medication Education Disciplines: Skilled Services 08/08/2022 Active 1 goal linked to scheduled/document ed intervention 1 goal intervention scheduled/document ed in this visit Sepsis Disciplines: Skilled Services 08/08/2022 Active 1 goal linked to scheduled/document ed intervention 1 goal intervention scheduled/document ed in this visit Post-Transplant Disciplines: Skilled Services 08/08/2022 Active 1 goal linked to scheduled/document ed intervention 1 goal intervention scheduled/document ed in this visit PT Referral Disciplines: Skilled Services 08/08/2022 Resolved on 08/12/2022 1 goal linked to scheduled/document ed intervention 1 goal intervention scheduled/document ed in this visit Risk for skin breakdown Disciplines: Skilled Services 08/08/2022 Active 1 goal linked to scheduled/document ed intervention 1 goal intervention scheduled/document ed in this visit Physician Specific Parameters Disciplines: Skilled Services 08/08/2022 Active 1 goal linked to scheduled/document ed intervention 1 goal intervention scheduled/document ed in this visit Risk for Falls Disciplines: Skilled Services 08/08/2022 Active 1 goal linked to scheduled/document ed intervention 1 goal intervention scheduled/document ed in this visit Pain Disciplines: Skilled Services 08/08/2022 Active 1 goal linked to scheduled/document ed intervention 1 goal intervention scheduled/document ed in this visit High Risk Medications Disciplines: Skilled Services 08/08/2022 Active 1 goal linked to scheduled/document ed intervention 3 goal interventions scheduled/document ed in this visit Discharge Disciplines: Skilled Services 08/08/2022 Active 1 goal linked to scheduled/document ed intervention 1 goal intervention scheduled/document ed in this visit PT Impaired muscle performance and/or ROM Disciplines: PT 08/12/2022 Active 1 goal linked to scheduled/document ed intervention 1 goal intervention scheduled/document ed in this visit PT Impaired mobility Disciplines: PT 08/12/2022 Active 1 goal linked to scheduled/document ed intervention 1 goal intervention scheduled/document ed in this visit PT Impaired gait Disciplines: PT 08/12/2022 Active 2 goals linked to scheduled/document ed interventions 2 goal interventions scheduled/document ed in this visit PT Impaired balance Disciplines: PT 08/12/2022 Active 1 goal linked to scheduled/document ed intervention 1 goal intervention scheduled/document ed in this visit PT Orthopedic Condition Disciplines: PT 08/12/2022 Active 1 goal linked to scheduled/document ed intervention 3 goal interventions scheduled/document ed in this visit PT Learning Assessment Disciplines: PT 08/12/2022 Active 1 goal linked to scheduled/document ed intervention 1 goal intervention scheduled/document ed in this visit PT Pulmonary Disease Disciplines: PT 08/12/2022 Active 1 goal linked to scheduled/document ed intervention 1 goal intervention scheduled/document ed in this visit Goals Goal Associated Problem Outcome Goal Met? Visit Notes Patient/caregiver will demonstrate ability to obtain, store, identify and administer ordered medications, keep accurate medication list in home, and adhere to medication schedule Description: Patient/caregiver will demonstrate ability to obtain, store, identify and administer ordered medications, keep accurate medication list in home, and adhere to medication schedule by 06 October 2022. Medication Education No Patient/caregiver will be able to identify and report symptoms of sepsis Description: Patient/caregiver will be able to identify signs/symptoms of sepsis infection and will verbalize actions to take if suspected by 06 October 2022. Sepsis No Patient will have uncomplicated recovery after transplant Description: Patient and/or caregiver will verbalize and/or demonstrate understanding of post-transplant precautions, complications, and self-management to be achieved by 06 October 2022. Post-Transplant No Patient will be referred to additional discipline as needed PT Referral Completed Yes Manage risk for skin breakdown Description: Patient/caregiver will verbalize and demonstrate understanding of the risks and measures to be taken to monitor and prevent skin breakdown by 06 October 2022. Risk for skin breakdown No Patient to maintain parameters within physician-specified ranges throughout certification period Physician Specific Parameters No Manage Risk for falls Description: Patient/caregiver will verbalize knowledge of individualized fall prevention strategies by 06 October 2022. Risk for Falls No Manage Pain Description: Patient/caregiver will verbalize knowledge and understanding of appropriate techniques to control pain, including pain medication and non-pharmacological techniques. Patient will verbalize or demonstrate an acceptable level of pain as evidenced by a pain score of 0-3/10 and improvement in ability to perform activities of daily living to be achieved by 06 October 2022. Pain No Patient/caregiver will teach back high risk medication side effect and precaution education High Risk Medications No Manage discharge planning Description: Patient/caregiver will verbalize understanding of ongoing discharge plan provided related to disease management, arrangements for outpatient and/or community services, obtaining medications, supplies, and DME, as needed throughout certification period. Discharge No Improved Muscle Performance and/or ROM Description: LTG: Patient and/or caregiver will verbalize/demonstrate independence with home exercise program, to improve functional mobility, to be achieved by 08/28/2022. PT Impaired muscle performance and/or ROM No Improved Transfers Description: LTG: Patient will demonstrate safe transfers to/from bed, chair and car independently, to be achieved by 08/28/2022. PT Impaired mobility No Improved Stair Climbing Description: LTG: Patient will demonstrate improved stair negotiation as evidenced by ascend/descend 12 steps with railing independently, to safely access all areas of the home (basement of personal home) and to enter/exit personal home, to be achieved by 08/28/2022. PT Impaired gait No Improved Gait Description: STG: Patient will demonstrate improved gait ability as evidenced by ambulation 100 feet with no device and SUP, in order to improve household ambulation independence, to be achieved by 08/21/2022. LTG: Patient will demonstrate improved gait ability as evidenced by ambulation 300 feet with least restrictive AD and Mod I, to return to safe community ambulation, in order to improve access to community, and to improve access to outdoor space/MD appointments to be achieved by 08/28/2022. PT Impaired gait No Improved Balance Description: LTG: Patient will demonstrate improved standing balance to meet functional goals as evidenced by 4 stage balance score of 10 seconds for SLS to be achieved by 08/28/2022. LTG: Patient will demonstrate improved standing balance to meet functional goals as evidenced by TUG score </= 9 sec with no device, to be achieved by 08/28/2022. PT Impaired balance No Manage Orthopedic Condition Description: Improve patient and/or caregiver understanding of post surgical and/or non-surgical orthopedic intervention management as evidenced by patient and/or caregiver able to verbalize, demonstrate, and teach back instruction, to be achieved by 08/28/2022. PT Orthopedic Condition No Demonstrate understanding of education Description: Patient and/or caregiver will understand educational instruction to be achieved by 08/28/2022. PT Learning Assessment No Manage Primary Pulmonary Disease Description: Improve patient and/or caregiver understanding of primary pulmonary disease as evidenced by patient and/or caregiver able to verbalize, demonstrate, and teach back instruction, to be achieved by 08/28/2022. PT Pulmonary Disease No Interventions Intervention Associated Problem/Goal Status Variance Visit Notes Medication Education Description: Evaluate/instruct patient/caregiver on obtaining, storing, identifying and administering ordered medications as well as keeping accurate medication list in the home and adhereing to medication schedule Problem:Medication Education Goal:Patient/caregi roger will demonstrate ability to obtain, store, identify and administer ordered medications, keep accurate medication list in home, and adhere to medication schedule Completed Patient and Caregiver instructed on importance of keeping accurate medication list in home, adhering to medication schedule and Medication, route, dose, frequency, purpose, and side effects of high risk medications. Education to take medication list to each MD appointment for updating. Risk of Sepsis Description: Patient is at risk for sepsis. Monitor closely for s/s of sepsis. Problem:Sepsis Goal:Patient/caregi roger will be able to identify and report symptoms of sepsis Completed Assess and instruct patient/caregiver on post-transplant precautions, complications, and self-management strategies Description: Instruct patient/caregiver on after-care for Lung transplant. Problem:Post-Transp lant Goal:Patient will have uncomplicated recovery after transplant Completed Patient and Caregiver instructed on post-op surgical precautions and anti-rejection medications as referred to in post-transplant binder. PT evaluation and treatment Description: Evaluate and treat for the assessment of functional deficits and establishment of appropriate interventions and education, including recommendations for functional mobility training, balance training for fall reduction, and strengthening. Problem:PT Referral Goal:Patient will be referred to additional discipline as needed Completed Instruct on the risks and measures to be taken to prevent skin breakdown Description: Patient's Fernando Score is: 18. A Fernando score <= to 18 indicates risk for skin breakdown. Problem:Risk for skin breakdown Goal:Manage risk for skin breakdown Completed patient and caregiver instructed on maintaining skin integrity including: Incontinence care, Inspecting bony prominences and Routine skin care SPO2 Description: Notify Regina Decker APRN.CNP if pulse ox is <92% at rest. Problem:Physician Specific Parameters Goal:Patient to maintain parameters within physician-specified ranges throughout certification period Completed Instruct on individual fall risk factors and strategies to prevent falls and injuries caused by falls. Problem:Risk for Falls Goal:Manage Risk for falls Completed PT: Patient and Caregiver instructed on Eliminating Environmental Hazards: Keep pathways clear, Move furniture from pathways, Keep rooms and walkways well lit and Wear supportive shoes or non-skid socks Managing Impaired Functional Mobility: Use assistive device(s): rollator walker and Caregiver to provide assist with: Ambulation, Transfers and ADL/IADLs Managing Pain Instruct on pain and instruct on strategies to control pain Problem:Pain Goal:Manage Pain Completed patient and caregiver instructed on techniques to control pain including Pharmacological measures and Non-Pharmacological measures; rest and positioning/elevatio n. Opioids- educated on high risk medication Problem:High Risk Medications Goal:Patient/caregi roger will teach back high risk medication side effect and precaution education Completed patient educated on taking medication(s) as prescribed by provider. Do not stop medication or alter doses without speaking with your provider. Discuss medication effectiveness or side effect concerns with your provider and home care team. Only take opioids as prescribed, do not share your medications, and take proper precautions in storing and properly disposing of opioids once no longer needed. Possible side effects of opioid medication including sedation, decreased rate of breathing, and constipation. Report over sedation to prescribing provider and practice deep breathing techniques every hour while awake. Prevent constipation by increasing water and fiber intake, increasing activity as tolerated, and use stool softener(s) as prescribed. Hypoglycemic (including insulin)- educated on high risk medication Problem:High Risk Medications Goal:Patient/caregi roger will teach back high risk medication side effect and precaution education Completed patient educated on taking medication(s) as prescribed by provider. Do not stop medication or skip/alter doses without speaking with your provider. Discuss medication effectiveness or side effect concerns with your provider and home care team. Check blood sugars and keep log as ordered by provider. Monitor for side effects of hypoglycemia such as increased weakness or shaking, moist skin, sweating, fast heartbeat, dizziness, sudden hunger, confusion, pale skin, numbness in mouth or tongue, irritability, nervousness, unsteadiness, nightmares, bad dreams, and restless sleep. Checking your blood sugar routinely and eating a consistent diabetic diet can help regulate blood sugars and reduce side effects. Antibiotic- educated on high risk medication Problem:High Risk Medications Goal:Patient/caregi roger will teach back high risk medication side effect and precaution education Completed patient educated on taking medication(s) as prescribed by provider. Do not stop medication or alter doses without speaking with your provider. Discuss medication effectiveness or side effect concerns with your provider and home care team. Take the full dispensed amount even if you start feeling better, as bacteria can become resistant to antibiotic treatment if you do not finish your prescription. Common side effects are upset stomach and diarrhea. Take your antibiotics with food unless otherwise indicated to help with indigestion. Taking an rflc-fpi-repnopk probiotic or eating yogurt with live and active cultures three times a day can help prevent antibiotic-associate d diarrhea. Call your provider immediately if you develop rashes or hives as this could be a delayed allergic reaction. Seek emergency treatment if you develop severe allergic reaction symptoms such as mouth or tongue swelling. Instruct on ongoing discharge plan Problem:Discharge Goal:Manage discharge planning Completed Ongoing Discharge plan: Discharge plan discussed with patient including frequency and duration for home PT and plan for transition to: cardiac/pulmonary rehab vs. independent at home. Physical Therapy Therapeutic Exercises Problem:PT Impaired muscle performance and/or ROM Goal:Improved Muscle Performance and/or ROM Completed Patient instructed on strengthening/endura nce exercises including standing positioning with verbal, visual and written cues for prescription, form to maximize benefit, and setup to ensure safe completion. Patient instructed to perform home exercise program 2-3x/day. Pt completes the following to demonstrate understanding: x2-3 each Standing: To perform within pain free ROM, within tolerance; Use of stable surface for BUE support as needed, chair placed posteriorly, SBA-CGA for safety Mini-Squats no UE support (x6-10) Tandem Stance (x30 seconds) Completed to improve BLE strength/endurance required for functional mobility tasks Physical Therapy Transfer Training Problem:PT Impaired mobility Goal:Improved Transfers Completed SBA, chair/toilet Transfer training and instruction to patient and caregiver on safe transfers to and from chair and toilet with stand by assist to ensure stability and precautions are maintained and verbal cues for unilateral UE use to maintain preacutions and reduced diaz. Futher education provided on how to functional rollator brakes to improve stability Physical Therapy Stair Training Problem:PT Impaired gait Goal:Improved Stair Climbing Other (specify reason) deferred to next session. Physical Therapy Gait Training Problem:PT Impaired gait Goal:Improved Gait Completed >200', SBA, rollator ; 50', SBA, no device SBA to ensure safety and stability with use of Rollator/No Device. Pt demo's reciprocal pattern with forward flexed posture, foot flat IC, BLE ER, reduced step clearance, reduced step length, inconsistent diaz, and reduced BUE reciprocal swing. Verbal cues provided for diaz. Pt with intermittent carryover of cues. Pt navigates apartment with no device and hallways/outdoor space with rollator. 50' (multiple turns with no device), >200' (multiple turns + uneven surfaces + ramps with rollator) Continue to recommend assistance with use of no device in home and rollator outside of home. Physical Therapy Balance Training Problem:PT Impaired balance Goal:Improved Balance Completed Completed: TUG: Completed in 10.1 seconds with no device; 4 Stage Balance Test: failed stage 3 Instruct on orthopedic precautions and weight bearing restrictions Description: Orthopedic precautions including sternal/abdominal precautions. Problem:PT Orthopedic Condition Goal:Manage Orthopedic Condition Completed patient and caregiver instructed on orthopedic precautions. Instruct on self-management of post surgical and/or non-surgical orthopedic intervention Problem:PT Orthopedic Condition Goal:Manage Orthopedic Condition Completed patient and caregiver instructed on managagement of orthopedic condition, incision care: daily inspection, signs and symptoms of infection, instructed on when to call provider and instructed on when to call 911. Instruct on management of edema Problem:PT Orthopedic Condition Goal:Manage Orthopedic Condition Other (specify reason) no edema noted during session. Instruct and educate on knowledge deficits Problem:PT Learning Assessment Goal:Demonstrate understanding of education Completed patient and caregiver verbalize and/or demonstrate understanding of physical therapy education including cardiac disease management, pulmonary disease management, orthopedic condition management, surgical precautions, pain management, fall prevention strategies, home safety, integumentary and incision/wound care management, functional activity and home exercise program. Education methods include: verbal cues, tactile cues, written instructions and visual cues. Further education required to improve knowledge and compliance with cardiac disease management, pulmonary disease management, surgical precautions, pain management, fall prevention strategies, home safety, functional activity and home exercise program. Instruct on signs, symptoms, and management of primary pulmonary disease Problem:PT Pulmonary Disease Goal:Manage Primary Pulmonary Disease Completed patient and caregiver instructed on energy conservation, breathing management and avoiding irritants. 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 Discipline -Physical Therapy Problems Problem Description Start Date Status Goals Interve ntions Medication Education Disciplines: Skilled Services 08/08/2022 Active 1 goal linked to scheduled/document ed intervention 1 goal intervention scheduled/documen radha in this visit Sepsis Disciplines: Skilled Services 08/08/2022 Active 1 goal linked to scheduled/document ed intervention 1 goal intervention scheduled/documen radha in this visit Post-Transplant Disciplines: Skilled Services 08/08/2022 Active 1 goal linked to scheduled/document ed intervention 1 goal intervention scheduled/documen radha in this visit Physician Specific Parameters Disciplines: Skilled Services 08/08/2022 Active 1 goal linked to scheduled/document ed intervention 1 goal intervention scheduled/documen radha in this visit Risk for Falls Disciplines: Skilled Services 08/08/2022 Active 1 goal linked to scheduled/document ed intervention 1 goal intervention scheduled/documen radha in this visit Pain Disciplines: Skilled Services 08/08/2022 Active 1 goal linked to scheduled/document ed intervention 1 goal intervention scheduled/documen radha in this visit High Risk Medications Disciplines: Skilled Services 08/08/2022 Active 1 goal linked to scheduled/document ed intervention 3 goal interventions scheduled/documen radha in this visit Discharge Disciplines: Skilled Services 08/08/2022 Active 1 goal linked to scheduled/document ed intervention 1 goal intervention scheduled/documen radha in this visit PT Impaired muscle performance and/or ROM Disciplines: PT 08/12/2022 Active 1 goal linked to scheduled/document ed intervention 1 goal intervention scheduled/documen radha in this visit PT Impaired mobility Disciplines: PT 08/12/2022 Active 1 goal linked to scheduled/document ed intervention 1 goal intervention scheduled/documen radha in this visit PT Impaired gait Disciplines: PT 08/12/2022 Active 2 goals linked to scheduled/document ed interventions 2 goal interventions scheduled/documen radha in this visit PT Orthopedic Condition Disciplines: PT 08/12/2022 Active 1 goal linked to scheduled/document ed intervention 2 goal interventions scheduled/documen radha in this visit PT Learning Assessment Disciplines: PT 08/12/2022 Active 1 goal linked to scheduled/document ed intervention 1 goal intervention scheduled/documen radha in this visit PT Pulmonary Disease Disciplines: PT 08/12/2022 Active 1 goal linked to scheduled/document ed intervention 1 goal intervention scheduled/documen radha in this visit PT Cardiovascular Disease Disciplines: PT 08/12/2022 Active 1 goal linked to scheduled/document ed intervention 1 goal intervention scheduled/documen radha in this visit Goals Goal Associated Problem Outcome Goal Met? Visit Notes Patient/caregiver will demonstrate ability to obtain, store, identify and administer ordered medications, keep accurate medication list in home, and adhere to medication schedule Description: Patient/caregiver will demonstrate ability to obtain, store, identify and administer ordered medications, keep accurate medication list in home, and adhere to medication schedule by 06 October 2022. Medication Education No Patient/caregiver will be able to identify and report symptoms of sepsis Description: Patient/caregiver will be able to identify signs/symptoms of sepsis infection and will verbalize actions to take if suspected by 06 October 2022. Sepsis No Patient will have uncomplicated recovery after transplant Description: Patient and/or caregiver will verbalize and/or demonstrate understanding of post-transplant precautions, complications, and self-management to be achieved by 06 October 2022. Post-Transplant No Patient to maintain parameters within physician-specified ranges throughout certification period Physician Specific Parameters No Manage Risk for falls Description: Patient/caregiver will verbalize knowledge of individualized fall prevention strategies by 06 October 2022. Risk for Falls No Manage Pain Description: Patient/caregiver will verbalize knowledge and understanding of appropriate techniques to control pain, including pain medication and non-pharmacological techniques. Patient will verbalize or demonstrate an acceptable level of pain as evidenced by a pain score of 0-3/10 and improvement in ability to perform activities of daily living to be achieved by 06 October 2022. Pain No Patient/caregiver will teach back high risk medication side effect and precaution education High Risk Medications No Manage discharge planning Description: Patient/caregiver will verbalize understanding of ongoing discharge plan provided related to disease management, arrangements for outpatient and/or community services, obtaining medications, supplies, and DME, as needed throughout certification period. Discharge No Improved Muscle Performance and/or ROM Description: LTG: Patient and/or caregiver will verbalize/demonstrate independence with home exercise program, to improve functional mobility, to be achieved by 08/28/2022. PT Impaired muscle performance and/or ROM No Improved Transfers Description: LTG: Patient will demonstrate safe transfers to/from bed, chair and car independently, to be achieved by 08/28/2022. PT Impaired mobility No Improved Stair Climbing Description: LTG: Patient will demonstrate improved stair negotiation as evidenced by ascend/descend 12 steps with railing independently, to safely access all areas of the home (basement of personal home) and to enter/exit personal home, to be achieved by 08/28/2022. PT Impaired gait No Improved Gait Description: STG: Patient will demonstrate improved gait ability as evidenced by ambulation 100 feet with no device and SUP, in order to improve household ambulation independence, to be achieved by 08/21/2022. LTG: Patient will demonstrate improved gait ability as evidenced by ambulation 300 feet with least restrictive AD and Mod I, to return to safe community ambulation, in order to improve access to community, and to improve access to outdoor space/MD appointments to be achieved by 08/28/2022. PT Impaired gait No Manage Orthopedic Condition Description: Improve patient and/or caregiver understanding of post surgical and/or non-surgical orthopedic intervention management as evidenced by patient and/or caregiver able to verbalize, demonstrate, and teach back instruction, to be achieved by 08/28/2022. PT Orthopedic Condition No Demonstrate understanding of education Description: Patient and/or caregiver will understand educational instruction to be achieved by 08/28/2022. PT Learning Assessment No Manage Primary Pulmonary Disease Description: Improve patient and/or caregiver understanding of primary pulmonary disease as evidenced by patient and/or caregiver able to verbalize, demonstrate, and teach back instruction, to be achieved by 08/28/2022. PT Pulmonary Disease No Manage Secondary Cardiovascular disease Description: Improve patient and/or caregiver understanding of secondary cardiovascular disease management as evidenced by patient and/or caregiver able to verbalize, demonstrate, and teach back instruction, to be achieved by 08/28/2022. PT Cardiovascular Disease No Interventions Intervention Associated Problem/Goal Status Variance Visit Notes Medication Education Description: Evaluate/instruct patient/caregiver on obtaining, storing, identifying and administering ordered medications as well as keeping accurate medication list in the home and adhereing to medication schedule Problem:Medication Education Goal:Patient/caregiv er will demonstrate ability to obtain, store, identify and administer ordered medications, keep accurate medication list in home, and adhere to medication schedule Completed Patient instructed on importance of keeping accurate medication list in home, adhering to medication schedule and proper storage of medications. Risk of Sepsis Description: Patient is at risk for sepsis. Monitor closely for s/s of sepsis. Problem:Sepsis Goal:Patient/caregiv er will be able to identify and report symptoms of sepsis Completed Assess and instruct patient/caregiver on post-transplant precautions, complications, and self-management strategies Description: Instruct patient/caregiver on after-care for Lung transplant. Problem:Post-Transpl ant Goal:Patient will have uncomplicated recovery after transplant Completed Patient and Caregiver instructed on preventing infection and maintaining log for vital signs and activity as referred to in post-transplant binder. SPO2 Description: Notify Regina Decker APRN.CNP if pulse ox is <92% at rest. Problem:Physician Specific Parameters Goal:Patient to maintain parameters within physician-specified ranges throughout certification period Completed Instruct on individual fall risk factors and strategies to prevent falls and injuries caused by falls. Problem:Risk for Falls Goal:Manage Risk for falls Completed PT: Patient instructed on Eliminating Environmental Hazards: Keep pathways clear, Wear supportive shoes or non-skid socks and Keep frequently used items within reach Managing Impaired Functional Mobility: Use assistive device(s): rollator walker and Caregiver to provide assist with: ADL/IADLs Managing Pain Instruct on pain and instruct on strategies to control pain Problem:Pain Goal:Manage Pain Completed patient instructed on techniques to control pain including Pharmacological measures and Non-Pharmacological measures; rest, mobility/therapeutic exercise and breathing/relaxation . Opioids- educated on high risk medication Problem:High Risk Medications Goal:Patient/caregiv er will teach back high risk medication side effect and precaution education Completed patient educated on taking medication(s) as prescribed by provider. Do not stop medication or alter doses without speaking with your provider. Discuss medication effectiveness or side effect concerns with your provider and home care team. Only take opioids as prescribed, do not share your medications, and take proper precautions in storing and properly disposing of opioids once no longer needed. Possible side effects of opioid medication including sedation, decreased rate of breathing, and constipation. Report over sedation to prescribing provider and practice deep breathing techniques every hour while awake. Prevent constipation by increasing water and fiber intake, increasing activity as tolerated, and use stool softener(s) as prescribed. Hypoglycemic (including insulin)- educated on high risk medication Problem:High Risk Medications Goal:Patient/caregiv er will teach back high risk medication side effect and precaution education Completed patient educated on taking medication(s) as prescribed by provider. Do not stop medication or skip/alter doses without speaking with your provider. Discuss medication effectiveness or side effect concerns with your provider and home care team. Check blood sugars and keep log as ordered by provider. Monitor for side effects of hypoglycemia such as increased weakness or shaking, moist skin, sweating, fast heartbeat, dizziness, sudden hunger, confusion, pale skin, numbness in mouth or tongue, irritability, nervousness, unsteadiness, nightmares, bad dreams, and restless sleep. Checking your blood sugar routinely and eating a consistent diabetic diet can help regulate blood sugars and reduce side effects. Antibiotic- educated on high risk medication Problem:High Risk Medications Goal:Patient/caregiv er will teach back high risk medication side effect and precaution education Completed patient educated on taking medication(s) as prescribed by provider. Do not stop medication or alter doses without speaking with your provider. Discuss medication effectiveness or side effect concerns with your provider and home care team. Take the full dispensed amount even if you start feeling better, as bacteria can become resistant to antibiotic treatment if you do not finish your prescription. Common side effects are upset stomach and diarrhea. Take your antibiotics with food unless otherwise indicated to help with indigestion. Taking an [id number]-[id number] probiotic or eating yogurt with live and active cultures three times a day can help prevent antibiotic-associate d diarrhea. Call your provider immediately if you develop rashes or hives as this could be a delayed allergic reaction. Seek emergency treatment if you develop severe allergic reaction symptoms such as mouth or tongue swelling. Instruct on ongoing discharge plan Problem:Discharge Goal:Manage discharge planning Completed Ongoing Discharge plan: Discharge plan discussed with patient including frequency and duration for home PT and plan for transition to: live at home with family assistance. Physical Therapy Therapeutic Exercises Problem:PT Impaired muscle performance and/or ROM Goal:Improved Muscle Performance and/or ROM Completed Instructed and performed the following strengthening exercises: 2 x 10 each of: SEATED - ankle pumps - LAQ: instruction for full ROM and pace - marching: instruction for pace and knee height - repeated stand/sit with instruction to slow pace, sit with control. Keep hands on thighs x 8 STANDING - postural training against wall. Instruction to relax shoulders and attempt to keep head over shoulders, not forward. - added Physical Therapy Transfer Training Problem:PT Impaired mobility Goal:Improved Transfers Completed Patient requires supervision assist with transfers. Patient and caregiver instructed and educated on correct transfer technique: TO STAND: scoot to edge of seat, hand and foot placement, lean forward and push into standing. TO SIT: Use walker for the entire transfer (square up), feel the seat behind both legs, squat while reaching back for the arm rest, sit slowly and controlled. Physical Therapy Stair Training Problem:PT Impaired gait Goal:Improved Stair Climbing Other (specify reason) patient declined Physical Therapy Gait Training Problem:PT Impaired gait Goal:Improved Gait Completed Gait training and instruction to patient on safe ambulation with rollator walker for 150' x 4 with supervision, with verbal cues for corrections of gait deviations including keeping a slower, even pace and to rest when needed. Instruct on orthopedic precautions and weight bearing restrictions Description: Orthopedic precautions including sternal/abdominal precautions. Problem:PT Orthopedic Condition Goal:Manage Orthopedic Condition Completed patient instructed on sternal/ abdominal precautions. Instruct on management of edema Problem:PT Orthopedic Condition Goal:Manage Orthopedic Condition Completed Instruct patient on management of edema including compression stockings and benefits of activity. Instruct and educate on knowledge deficits Problem:PT Learning Assessment Goal:Demonstrate understanding of education Completed patient verbalize and/or demonstrate understanding of physical therapy education including cardiac disease management, pulmonary disease management, surgical precautions, pain management, fall prevention strategies, home safety, functional activity and home exercise program. Education methods include: verbal cues and written instructions. Further education required to improve knowledge and compliance with cardiac disease management, pulmonary disease management, surgical precautions, pain management, fall prevention strategies, home safety, infection control precautions and functional activity. Instruct on signs, symptoms, and management of primary pulmonary disease Problem:PT Pulmonary Disease Goal:Manage Primary Pulmonary Disease Completed patient instructed on use of RPE scale, energy conservation, exercise and activity guidelines and breathing management. Instruct on signs, symptoms, and management of secondary cardiovascular disease Problem:PT Cardiovascular Disease Goal:Manage Secondary Cardiovascular disease Completed Instructed patient and caregiver on use of RPE and exercise and activity guidelines. documented in this encounter [facility] home Plan of care note* Visit Details Visit Type -SN ROUTINE Discipline -Detention Problems Problem Description Start Date Status Goals Interve ntions SN Integumentary/W ounds Disciplines: SN 08/08/2022 Active 1 goal linked to scheduled/documente d intervention 3 goal interventions scheduled/documente d in this visit SN Learning Assessment Disciplines: SN 08/08/2022 Active 1 goal linked to scheduled/documente d intervention 1 goal intervention scheduled/documente d in this visit Medication Education Disciplines: Skilled Services 08/08/2022 Active 1 goal linked to scheduled/documente d intervention 1 goal intervention scheduled/documente d in this visit Sepsis Disciplines: Skilled Services 08/08/2022 Active 1 goal linked to scheduled/documente d intervention 1 goal intervention scheduled/documente d in this visit Risk for Falls Disciplines: Skilled Services 08/08/2022 Active 1 goal linked to scheduled/documente d intervention 1 goal intervention scheduled/documente d in this visit Pain Disciplines: Skilled Services 08/08/2022 Active 1 goal linked to scheduled/documente d intervention 1 goal intervention scheduled/documente d in this visit High Risk Medications Disciplines: Skilled Services 08/08/2022 Active 1 goal linked to scheduled/documente d intervention 2 goal interventions scheduled/documente d in this visit Discharge Disciplines: Skilled Services 08/08/2022 Active 1 goal linked to scheduled/documente d intervention 1 goal intervention scheduled/documente d in this visit Goals Goal Associated Problem Outcome Goal Met? Visit Notes Patient/Caregiver will have improved healing and be free of signs and symptoms of complications Description: Patient/caregiver will verbalize management strategies to promote wound healing & prevent complications as evidenced by improved healing & no complications by 11 September 2022. SN Integumentary/Wounds No Demonstrate understanding of education Description: Patient and/or caregiver will verbalize understanding of educational instruction provided throughout certification period. SN Learning Assessment No Patient/caregiver will demonstrate ability to obtain, store, identify and administer ordered medications, keep accurate medication list in home, and adhere to medication schedule Description: Patient/caregiver will demonstrate ability to obtain, store, identify and administer ordered medications, keep accurate medication list in home, and adhere to medication schedule by 06 October 2022. Medication Education No Patient/caregiver will be able to identify and report symptoms of sepsis Description: Patient/caregiver will be able to identify signs/symptoms of sepsis infection and will verbalize actions to take if suspected by 06 October 2022. Sepsis No Manage Risk for falls Description: Patient/caregiver will verbalize knowledge of individualized fall prevention strategies by 06 October 2022. Risk for Falls No Manage Pain Description: Patient/caregiver will verbalize knowledge and understanding of appropriate techniques to control pain, including pain medication and non-pharmacological techniques. Patient will verbalize or demonstrate an acceptable level of pain as evidenced by a pain score of 0-3/10 and improvement in ability to perform activities of daily living to be achieved by 06 October 2022. Pain No Patient/caregiver will teach back high risk medication side effect and precaution education High Risk Medications No Manage discharge planning Description: Patient/caregiver will verbalize understanding of ongoing discharge plan provided related to disease management, arrangements for outpatient and/or community services, obtaining medications, supplies, and DME, as needed throughout certification period. Discharge No Interventions Intervention Associated Problem/Goal Status Variance Visit Notes Drain Care: Perform drain care Description: Drain care as follows Cleanse around insertion sites with soap and water, allow to dry, cover with dry sterile dressing. Change daily. Problem:SN Integumentary/Wounds Goal:Patient/Caregive r will have improved healing and be free of signs and symptoms of complications Completed patient instructed on drain care as ordered by Physician. Wound Care: Perform wound care (1) Description: Incision open to air. Sutures/lidia to be removed at follow up with transplant team May cover with dry sterile dressing for drainage. Change daily. Notify surgeon if drainage occurs or S/S of infection/complicatio ns. Problem:SN Integumentary/Wounds Goal:Patient/Caregive r will have improved healing and be free of signs and symptoms of complications Completed Completed by SN. Patient did tolerate well. Instruct patient/caregiver healing process and management measures to promote healing and avoid complications Problem:SN Integumentary/Wounds Goal:Patient/Caregive r will have improved healing and be free of signs and symptoms of complications Completed patient and caregiver instructed on the following: healing process, signs and symptoms of infection, importance of good nutrition and importance of managing blood sugars. Instruct and educate on knowledge deficits Problem:SN Learning Assessment Goal:Demonstrate understanding of education Completed patient and caregiver verbalize and/or demonstrate understanding of nursing education completed today. Education methods include: verbal cues. Further education required to improve knowledge and compliance with diabetic care management, drain care management, fall prevention/home safety strategies, incision/wound care management, medication management, nutrition, pain management and surgical care precautions. Medication Education Description: Evaluate/instruct patient/caregiver on obtaining, storing, identifying and administering ordered medications as well as keeping accurate medication list in the home and adhereing to medication schedule Problem:Medication Education Goal:Patient/caregive r will demonstrate ability to obtain, store, identify and administer ordered medications, keep accurate medication list in home, and adhere to medication schedule Completed Patient and Caregiver instructed on adhering to medication schedule. Risk of Sepsis Description: Patient is at risk for sepsis. Monitor closely for s/s of sepsis. Problem:Sepsis Goal:Patient/caregive r will be able to identify and report symptoms of sepsis Completed Instruct on individual fall risk factors and strategies to prevent falls and injuries caused by falls. Problem:Risk for Falls Goal:Manage Risk for falls Completed SN: Patient instructed on Managing Impaired Functional Mobility: Use assistive device(s): rollator walker Instruct on pain and instruct on strategies to control pain Problem:Pain Goal:Manage Pain Completed patient and caregiver instructed on techniques to control pain including Pharmacological measures and Non-Pharmacological measures; rest, positioning/elevation, distraction and breathing/relaxation. Opioids- educated on high risk medication Problem:High Risk Medications Goal:Patient/caregive r will teach back high risk medication side effect and precaution education Completed patient and caregiver educated on taking medication(s) as prescribed by provider. Do not stop medication or alter doses without speaking with your provider. Discuss medication effectiveness or side effect concerns with your provider and home care team. Only take opioids as prescribed, do not share your medications, and take proper precautions in storing and properly disposing of opioids once no longer needed. Possible side effects of opioid medication including sedation, decreased rate of breathing, and constipation. Report over sedation to prescribing provider and practice deep breathing techniques every hour while awake. Prevent constipation by increasing water and fiber intake, increasing activity as tolerated, and use stool softener(s) as prescribed. Hypoglycemic (including insulin)- educated on high risk medication Problem:High Risk Medications Goal:Patient/caregive r will teach back high risk medication side effect and precaution education Completed patient and caregiver educated on taking medication(s) as prescribed by provider. Do not stop medication or skip/alter doses without speaking with your provider. Discuss medication effectiveness or side effect concerns with your provider and home care team. Check blood sugars and keep log as ordered by provider. Monitor for side effects of hypoglycemia such as increased weakness or shaking, moist skin, sweating, fast heartbeat, dizziness, sudden hunger, confusion, pale skin, numbness in mouth or tongue, irritability, nervousness, unsteadiness, nightmares, bad dreams, and restless sleep. Checking your blood sugar routinely and eating a consistent diabetic diet can help regulate blood sugars and reduce side effects. Instruct on ongoing discharge plan Problem:Discharge Goal:Manage discharge planning Completed Ongoing Discharge plan: Discharge plan discussed with patient including frequency and duration for home SN and plan for transition to: live independently at home without ongoing services. [facility] Visit Details Visit Type -PT CASE MANAGEME NT VISIT Discipline -Physical Therapy Problems Problem Description Start Date Status Goals Interve ntions Medication Education Disciplines: Skilled Services 08/08/2022 Active 1 goal linked to scheduled/documen radha intervention 1 goal intervention scheduled/document ed in this visit Sepsis Disciplines: Skilled Services 08/08/2022 Active 1 goal linked to scheduled/documen radha intervention 1 goal intervention scheduled/document ed in this visit Post-Transplant Disciplines: Skilled Services 08/08/2022 Active 1 goal linked to scheduled/documen radha intervention 1 goal intervention scheduled/document ed in this visit Risk for skin breakdown Disciplines: Skilled Services 08/08/2022 Active 1 goal linked to scheduled/documen radha intervention 1 goal intervention scheduled/document ed in this visit Physician Specific Parameters Disciplines: Skilled Services 08/08/2022 Active 1 goal linked to scheduled/documen radha intervention 1 goal intervention scheduled/document ed in this visit Risk for Falls Disciplines: Skilled Services 08/08/2022 Active 1 goal linked to scheduled/documen radha intervention 1 goal intervention scheduled/document ed in this visit Pain Disciplines: Skilled Services 08/08/2022 Active 1 goal linked to scheduled/documen radha intervention 1 goal intervention scheduled/document ed in this visit High Risk Medications Disciplines: Skilled Services 08/08/2022 Active 1 goal linked to scheduled/documen radha intervention 3 goal interventions scheduled/document ed in this visit Discharge Disciplines: Skilled Services 08/08/2022 Active 1 goal linked to scheduled/documen radha intervention 1 goal intervention scheduled/document ed in this visit PT Impaired muscle performance and/or ROM Disciplines: PT 08/12/2022 Active 1 goal linked to scheduled/documen radha intervention 1 goal intervention scheduled/document ed in this visit PT Impaired mobility Disciplines: PT 08/12/2022 Active 1 goal linked to scheduled/documen radha intervention 1 goal intervention scheduled/document ed in this visit PT Impaired gait Disciplines: PT 08/12/2022 Active 1 goal linked to scheduled/documen radha intervention 1 goal intervention scheduled/document ed in this visit PT Impaired balance Disciplines: PT 08/12/2022 Active 1 goal linked to scheduled/documen radha intervention 1 goal intervention scheduled/document ed in this visit PT Orthopedic Condition Disciplines: PT 08/12/2022 Active 1 goal linked to scheduled/documen radha intervention 3 goal interventions scheduled/document ed in this visit PT Learning Assessment Disciplines: PT 08/12/2022 Active 1 goal linked to scheduled/documen radha intervention 1 goal intervention scheduled/document ed in this visit PT Pulmonary Disease Disciplines: PT 08/12/2022 Active 1 goal linked to scheduled/documen radha intervention 1 goal intervention scheduled/document ed in this visit PT Cardiovascular Disease Disciplines: PT 08/12/2022 Active 1 goal linked to scheduled/documen radha intervention 1 goal intervention scheduled/document ed in this visit Goals Goal Associated Problem Outcome Goal Met? Visit Notes Patient/caregiver will demonstrate ability to obtain, store, identify and administer ordered medications, keep accurate medication list in home, and adhere to medication schedule Description: Patient/caregiver will demonstrate ability to obtain, store, identify and administer ordered medications, keep accurate medication list in home, and adhere to medication schedule by 06 October 2022. Medication Education No Patient/caregiver will be able to identify and report symptoms of sepsis Description: Patient/caregiver will be able to identify signs/symptoms of sepsis infection and will verbalize actions to take if suspected by 06 October 2022. Sepsis No Patient will have uncomplicated recovery after transplant Description: Patient and/or caregiver will verbalize and/or demonstrate understanding of post-transplant precautions, complications, and self-management to be achieved by 06 October 2022. Post-Transplant No Manage risk for skin breakdown Description: Patient/caregiver will verbalize and demonstrate understanding of the risks and measures to be taken to monitor and prevent skin breakdown by 06 October 2022. Risk for skin breakdown No Patient to maintain parameters within physician-specified ranges throughout certification period Physician Specific Parameters No Manage Risk for falls Description: Patient/caregiver will verbalize knowledge of individualized fall prevention strategies by 06 October 2022. Risk for Falls No Manage Pain Description: Patient/caregiver will verbalize knowledge and understanding of appropriate techniques to control pain, including pain medication and non-pharmacological techniques. Patient will verbalize or demonstrate an acceptable level of pain as evidenced by a pain score of 0-3/10 and improvement in ability to perform activities of daily living to be achieved by 06 October 2022. Pain No Patient/caregiver will teach back high risk medication side effect and precaution education High Risk Medications No Manage discharge planning Description: Patient/caregiver will verbalize understanding of ongoing discharge plan provided related to disease management, arrangements for outpatient and/or community services, obtaining medications, supplies, and DME, as needed throughout certification period. Discharge No Improved Muscle Performance and/or ROM Description: LTG: Patient and/or caregiver will verbalize/demonstrate independence with home exercise program, to improve functional mobility, to be achieved by 08/28/2022. PT Impaired muscle performance and/or ROM No Improved Transfers Description: LTG: Patient will demonstrate safe transfers to/from bed, chair and car independently, to be achieved by 08/28/2022. PT Impaired mobility No Improved Gait Description: STG: Patient will demonstrate improved gait ability as evidenced by ambulation 100 feet with no device and SUP, in order to improve household ambulation independence, to be achieved by 08/21/2022. LTG: Patient will demonstrate improved gait ability as evidenced by ambulation 300 feet with least restrictive AD and Mod I, to return to safe community ambulation, in order to improve access to community, and to improve access to outdoor space/MD appointments to be achieved by 08/28/2022. PT Impaired gait No Improved Balance Description: LTG: Patient will demonstrate improved standing balance to meet functional goals as evidenced by 4 stage balance score of 10 seconds for SLS to be achieved by 08/28/2022. LTG: Patient will demonstrate improved standing balance to meet functional goals as evidenced by TUG score </= 9 sec with no device, to be achieved by 08/28/2022. PT Impaired balance No Manage Orthopedic Condition Description: Improve patient and/or caregiver understanding of post surgical and/or non-surgical orthopedic intervention management as evidenced by patient and/or caregiver able to verbalize, demonstrate, and teach back instruction, to be achieved by 08/28/2022. PT Orthopedic Condition No Demonstrate understanding of education Description: Patient and/or caregiver will understand educational instruction to be achieved by 08/28/2022. PT Learning Assessment No Manage Primary Pulmonary Disease Description: Improve patient and/or caregiver understanding of primary pulmonary disease as evidenced by patient and/or caregiver able to verbalize, demonstrate, and teach back instruction, to be achieved by 08/28/2022. PT Pulmonary Disease No Manage Secondary Cardiovascular disease Description: Improve patient and/or caregiver understanding of secondary cardiovascular disease management as evidenced by patient and/or caregiver able to verbalize, demonstrate, and teach back instruction, to be achieved by 08/28/2022. PT Cardiovascular Disease No Interventions Intervention Associated Problem/Goal Status Variance Visit Notes Medication Education Description: Evaluate/instruct patient/caregiver on obtaining, storing, identifying and administering ordered medications as well as keeping accurate medication list in the home and adhereing to medication schedule Problem:Medication Education Goal:Patient/caregive r will demonstrate ability to obtain, store, identify and administer ordered medications, keep accurate medication list in home, and adhere to medication schedule Completed Patient instructed on importance of keeping accurate medication list in home, adhering to medication schedule and proper storage of medications. Risk of Sepsis Description: Patient is at risk for sepsis. Monitor closely for s/s of sepsis. Problem:Sepsis Goal:Patient/caregive r will be able to identify and report symptoms of sepsis Completed Assess and instruct patient/caregiver on post-transplant precautions, complications, and self-management strategies Description: Instruct patient/caregiver on after-care for Lung transplant. Problem:Post-Transpla nt Goal:Patient will have uncomplicated recovery after transplant Completed Patient instructed on preventing infection, post-op surgical precautions, anti-rejection medications and when to contact the post-transplant team as referred to in post-transplant binder. Instruct on the risks and measures to be taken to prevent skin breakdown Description: Patient's Fernando Score is: 18. A Fernando score <= to 18 indicates risk for skin breakdown. Problem:Risk for skin breakdown Goal:Manage risk for skin breakdown Completed patient instructed on maintaining skin integrity including: The need for every 1-2 hour turns, position changes, and maintaining activity as tolerated, Reducing risk of friction and shear, including use of draw sheet as appropriate, Elevating and protecting heels, Routine skin care and Notifying [facility] clinician of changes to skin integrity SPO2 Description: Notify Regina Decker APRN.CNP if pulse ox is <92% at rest. Problem:Physician Specific Parameters Goal:Patient to maintain parameters within physician-specified ranges throughout certification period Completed Instruct on individual fall risk factors and strategies to prevent falls and injuries caused by falls. Problem:Risk for Falls Goal:Manage Risk for falls Completed PT: Patient instructed on Eliminating Environmental Hazards: Keep pathways clear, Keep rooms and walkways well lit, Wear supportive shoes or non-skid socks and Keep frequently used items within reach Managing Impaired Functional Mobility: Use assistive device(s): rollator walker and Caregiver to provide assist with: Ambulation, Steps, Transfers and ADL/IADLs Managing Pain Instruct on pain and instruct on strategies to control pain Problem:Pain Goal:Manage Pain Completed patient instructed on techniques to control pain including Pharmacological measures and Non-Pharmacological measures; rest, positioning/elevation and mobility/therapeutic exercise. Opioids- educated on high risk medication Problem:High Risk Medications Goal:Patient/caregive r will teach back high risk medication side effect and precaution education Completed patient educated on taking medication(s) as prescribed by provider. Do not stop medication or alter doses without speaking with your provider. Discuss medication effectiveness or side effect concerns with your provider and home care team. Only take opioids as prescribed, do not share your medications, and take proper precautions in storing and properly disposing of opioids once no longer needed. Possible side effects of opioid medication including sedation, decreased rate of breathing, and constipation. Report over sedation to prescribing provider and practice deep breathing techniques every hour while awake. Prevent constipation by increasing water and fiber intake, increasing activity as tolerated, and use stool softener(s) as prescribed. Hypoglycemic (including insulin)- educated on high risk medication Problem:High Risk Medications Goal:Patient/caregive r will teach back high risk medication side effect and precaution education Completed patient educated on taking medication(s) as prescribed by provider. Do not stop medication or skip/alter doses without speaking with your provider. Discuss medication effectiveness or side effect concerns with your provider and home care team. Check blood sugars and keep log as ordered by provider. Monitor for side effects of hypoglycemia such as increased weakness or shaking, moist skin, sweating, fast heartbeat, dizziness, sudden hunger, confusion, pale skin, numbness in mouth or tongue, irritability, nervousness, unsteadiness, nightmares, bad dreams, and restless sleep. Checking your blood sugar routinely and eating a consistent diabetic diet can help regulate blood sugars and reduce side effects. Antibiotic- educated on high risk medication Problem:High Risk Medications Goal:Patient/caregive r will teach back high risk medication side effect and precaution education Completed patient educated on taking medication(s) as prescribed by provider. Do not stop medication or alter doses without speaking with your provider. Discuss medication effectiveness or side effect concerns with your provider and home care team. Take the full dispensed amount even if you start feeling better, as bacteria can become resistant to antibiotic treatment if you do not finish your prescription. Common side effects are upset stomach and diarrhea. Take your antibiotics with food unless otherwise indicated to help with indigestion. Taking an [id number] probiotic or eating yogurt with live and active cultures three times a day can help prevent antibiotic-associated diarrhea. Call your provider immediately if you develop rashes or hives as this could be a delayed allergic reaction. Seek emergency treatment if you develop severe allergic reaction symptoms such as mouth or tongue swelling. Instruct on ongoing discharge plan Problem:Discharge Goal:Manage discharge planning Completed Ongoing Discharge plan: Discharge plan discussed with patient including frequency and duration for home PT and plan for transition to: cardiac/pulmonary rehab. Physical Therapy Therapeutic Exercises Problem:PT Impaired muscle performance and/or ROM Goal:Improved Muscle Performance and/or ROM Completed Therex completed this date: seated march, LAQ, SLR, hip abd sit to stand to fatigue Physical Therapy Transfer Training Problem:PT Impaired mobility Goal:Improved Transfers Completed Transfer training and instruction to patient on safe transfers to and from chair with stand by assist and verbal, tactile and visual cues for proper hand and foot placement and improved motor sequencing to maximize pt safety and reduce risk for falls as well as to help reduce pain through chest post B Lung transplant procedure. Physical Therapy Gait Training Problem:PT Impaired gait Goal:Improved Gait Completed Gait training and instruction to patient on safe ambulation with rollator walker for 150 feet with stand by assist, with verbal, tactile and visual cues for corrections of gait deviations including short step length and wide SOPHIA. Physical Therapy Balance Training Problem:PT Impaired balance Goal:Improved Balance Completed static rhomberg balance and walking rhomberg balance walking long strides walking marching walking with stop pivot turns Instruct on orthopedic precautions and weight bearing restrictions Description: Orthopedic precautions including sternal/abdominal precautions. Problem:PT Orthopedic Condition Goal:Manage Orthopedic Condition Completed patient instructed on orthopedic precautions and weight bearing restrictions. Instruct on management of edema Problem:PT Orthopedic Condition Goal:Manage Orthopedic Condition Completed Instruct patient on management of edema including benefits of activity. Instruct on self-management of post surgical and/or non-surgical orthopedic intervention Problem:PT Orthopedic Condition Goal:Manage Orthopedic Condition Completed patient instructed on managagement of orthopedic condition, staying well hydrated, signs and symptoms of infection, signs and symptoms of DVT/PE, follow provider guidance for showering , instructed on when to call provider and instructed on when to call 911. Instruct and educate on knowledge deficits Problem:PT Learning Assessment Goal:Demonstrate understanding of education Completed patient verbalize and/or demonstrate understanding of physical therapy education including cardiac disease management, pulmonary disease management, surgical precautions, pain management, fall prevention strategies, home safety, functional activity and home exercise program. Education methods include: verbal, visual, and tactile cues. Further education required to improve knowledge and compliance with cardiac disease management, pulmonary disease management, surgical precautions, pain management, fall prevention strategies, home safety, functional activity and home exercise program. Instruct on signs, symptoms, and management of primary pulmonary disease Problem:PT Pulmonary Disease Goal:Manage Primary Pulmonary Disease Completed patient instructed on definition of pulmonary disease, signs and symptoms of pulmonary exacerbation, use of RPE scale, energy conservation, exercise and activity guidelines and instructed on when to call provider. Instruct on signs, symptoms, and management of secondary cardiovascular disease Problem:PT Cardiovascular Disease Goal:Manage Secondary Cardiovascular disease Completed Instructed patient on definition of cardiovascular disease, energy conservation, exercise and activity guidelines and instructed on when to call provider. documented in this encounter [facility] Plan of care note* Visit Details Visit Type -OT EVAL Discipline -Occupational Therapy Problems Problem Description Start Date Status Goals Interve ntions Sepsis Disciplines: Skilled Services 08/08/2022 Active 1 goal linked to scheduled/documen radha intervention 1 goal intervention scheduled/document ed in this visit OT Referral Disciplines: Skilled Services 08/08/2022 Resolved on 08/17/2022 1 goal linked to scheduled/documen radha intervention 1 goal intervention scheduled/document ed in this visit Physician Specific Parameters Disciplines: Skilled Services 08/08/2022 Active 1 goal linked to scheduled/documen radha intervention 1 goal intervention scheduled/document ed in this visit Risk for Falls Disciplines: Skilled Services 08/08/2022 Active 1 goal linked to scheduled/documen radha intervention 1 goal intervention scheduled/document ed in this visit Pain Disciplines: Skilled Services 08/08/2022 Active 1 goal linked to scheduled/documen radha intervention 1 goal intervention scheduled/document ed in this visit High Risk Medications Disciplines: Skilled Services 08/08/2022 Active 1 goal linked to scheduled/documen radha intervention 1 goal intervention scheduled/document ed in this visit Discharge Disciplines: Skilled Services 08/08/2022 Active 1 goal linked to scheduled/documen radha intervention 1 goal intervention scheduled/document ed in this visit OT Learning Assessment Disciplines: OT 08/17/2022 Resolved on 08/17/2022 1 goal linked to scheduled/documen radha intervention 1 goal intervention scheduled/document ed in this visit OT Pulmonary Disease Disciplines: OT 08/17/2022 Resolved on 08/17/2022 1 goal linked to scheduled/documen radha intervention 1 goal intervention scheduled/document ed in this visit OT ADLs/IADLs Disciplines: OT 08/17/2022 Resolved on 08/17/2022 1 goal linked to scheduled/documen radha intervention 1 goal intervention scheduled/document ed in this visit OT Functional Transfers Disciplines: OT 08/17/2022 Resolved on 08/17/2022 1 goal linked to scheduled/documen radha intervention 1 goal intervention scheduled/document ed in this visit Goals Goal Associated Problem Outcome Goal Met? Visit Notes Patient/caregiver will be able to identify and report symptoms of sepsis Description: Patient/caregiver will be able to identify signs/symptoms of sepsis infection and will verbalize actions to take if suspected by 06 October 2022. Sepsis No Patient will be referred to additional discipline as needed OT Referral No Patient to maintain parameters within physician-specified ranges throughout certification period Physician Specific Parameters No Manage Risk for falls Description: Patient/caregiver will verbalize knowledge of individualized fall prevention strategies by 06 October 2022. Risk for Falls No Manage Pain Description: Patient/caregiver will verbalize knowledge and understanding of appropriate techniques to control pain, including pain medication and non-pharmacological techniques. Patient will verbalize or demonstrate an acceptable level of pain as evidenced by a pain score of 0-3/10 and improvement in ability to perform activities of daily living to be achieved by 06 October 2022. Pain No Patient/caregiver will teach back high risk medication side effect and precaution education High Risk Medications No Manage discharge planning Description: Patient/caregiver will verbalize understanding of ongoing discharge plan provided related to disease management, arrangements for outpatient and/or community services, obtaining medications, supplies, and DME, as needed throughout certification period. Discharge No Demonstrate understanding of education Description: Patient and/or caregiver will understand educational instruction to be achieved by 08/17/22. OT Learning Assessment Appropriate For Discharge Yes Improved management of Pulmonary Disease Description: Improve patient pulmonary disease as evidenced by patient able to verbalize, demonstrate and teachback dyspnea management strategies by 08/17/22. OT Pulmonary Disease Appropriate For Discharge Yes Improved ADLs/IADLs performance Description: patient will verbalize understanding of instructions and demonstrate improved performance of grooming, upper body dressing, lower body dressing, bathing and toileting to independence and supervision or setup assistance after OT instruction to be achieved by 08/17/22. OT ADLs/IADLs Appropriate For Discharge Yes Improved Functional Transfers Description: patient will demonstrate safe transfers to/from toilet and shower/tub with independently with use of DME to be achieved by 08/17/22. OT Functional Transfers Appropriate For Discharge Yes Interventions Intervention Associated Problem/Goal Status Variance Visit Notes Risk of Sepsis Description: Patient is at risk for sepsis. Monitor closely for s/s of sepsis. Problem:Sepsis Goal:Patient/caregive r will be able to identify and report symptoms of sepsis Completed OT evaluation and treatment Description: Evaluate and treat for the assessment of functional deficits and establishment of appropriate interventions and education to address: I/ADL training, functional transfers, DME/adaptive equipment recommendations, safety awareness, energy conservation, home safety and falls prevention recommendations and upper extremity strengthening and home exercise program training. Problem:OT Referral Goal:Patient will be referred to additional discipline as needed Completed SPO2 Description: Notify Regina Decker APRN.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 MANAGER if pulse ox is <92% at rest. Problem:Physician Specific Parameters Goal:Patient to maintain parameters within physician-specified ranges throughout certification period Completed Instruct on individual fall risk factors and strategies to prevent falls and injuries caused by falls. Problem:Risk for Falls Goal:Manage Risk for falls Completed OT: Instructed patient in importance maintaining clear, clutter free pathways at all times, removing throw rugs, always using walker to ambulate & wearing supportive, non-slip footwear at all times. Instruct on pain and instruct on strategies to control pain Problem:Pain Goal:Manage Pain Completed patient instructed on techniques to control pain including Non-Pharmacological measures; positioning/elevatio n. Opioids- educated on high risk medication Problem:High Risk Medications Goal:Patient/caregive r will teach back high risk medication side effect and precaution education Completed patient educated on taking medication(s) as prescribed by provider. Do not stop medication or alter doses without speaking with your provider. Discuss medication effectiveness or side effect concerns with your provider and home care team. Only take opioids as prescribed, do not share your medications, and take proper precautions in storing and properly disposing of opioids once no longer needed. Possible side effects of opioid medication including sedation, decreased rate of breathing, and constipation. Report over sedation to prescribing provider and practice deep breathing techniques every hour while awake. Prevent constipation by increasing water and fiber intake, increasing activity as tolerated, and use stool softener(s) as prescribed. Instruct on ongoing discharge plan Problem:Discharge Goal:Manage discharge planning Completed Ongoing Discharge plan: Discharge plan discussed with patient including frequency and duration for home OT and plan for transition to: caregiver assistance. Instruct and educate on knowledge deficits Problem:OT Learning Assessment Goal:Demonstrate understanding of education Completed Patient educated and instructed regarding role of OT, OT POC, DC planning and recommendations. Patient verbalized understanding of OT POC and participated in making OT POC. Instruct on signs and symptoms and strategies for management of Pulmonary Disease Problem:OT Pulmonary Disease Goal:Improved management of Pulmonary Disease Completed Instruct patient on energy conservation techniques, activity modification strategies and use of RPE scale Rated Perceived Exertion (RPE) Scale: The RPE scale is used to measure the intensity of your exercise. The RPE scale runs from 0 10. The numbers below relate to phrases used to rate how easy or difficult you find an activity. For example, 0 (nothing at all) would be how you feel when sitting in a chair; 10 (very, very heavy) is how you feel at the end of an exercise stress test or after a very difficult activity. In most cases, you should exercise at a level that feels 3 (moderate) to 4 (somewhat heavy). When using this rating scale, remember to include feelings of shortness of breath, as well as how tired you feel in your legs and overall. ADL/IADLs Training Problem:OT ADLs/IADLs Goal:Improved ADLs/IADLs performance Completed Instructed pt on use of standing balance compensatory techniques: Sit to bathe, towel dry, dress; Support self on sturdy structures when bending, reaching; Store frequently used items in home at accessible heights to minimize the need to bend, reach; Always have one hand available to support self when carrying items in case balance is challenged; Support self on sturdy structure with one hand when managing clothing over hips/buttocks during toileting and dressing tasks; Stand with feet apart when bending, twisting. Transfer Training Problem:OT Functional Transfers Goal:Improved Functional Transfers Completed Instructed pt to maintain wide base of support when coming to stance for increased stability; Transfer weight forward, up, and then extend trunk (nose over toes); Use UE to push from arm rests at all times; Back up to surface and reach back w/UEs before sitting; Seat self slowly when coming to sit. Adjusted transfer bench to appropriate and leveled height and positioned across jaylene; Instructed patient/spouse on proper adjustment of device; Instructed pt on use of safe body mechanics and hand placement on seat edge/grab bar during tub transfer; Pace self with transfer for optimal safety. 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 Discipline -Physical Therapy Problems Problem Description Start Date Status Goals Interve ntions Medication Education Disciplines: Skilled Services 08/08/2022 Active 1 goal linked to scheduled/document ed intervention 1 goal intervention scheduled/documen radha in this visit Sepsis Disciplines: Skilled Services 08/08/2022 Active 1 goal linked to scheduled/document ed intervention 1 goal intervention scheduled/documen radha in this visit Post-Transplant Disciplines: Skilled Services 08/08/2022 Active 1 goal linked to scheduled/document ed intervention 1 goal intervention scheduled/documen radha in this visit Risk for skin breakdown Disciplines: Skilled Services 08/08/2022 Active 1 goal linked to scheduled/document ed intervention 1 goal intervention scheduled/documen radha in this visit Physician Specific Parameters Disciplines: Skilled Services 08/08/2022 Active 1 goal linked to scheduled/document ed intervention 1 goal intervention scheduled/documen radha in this visit Risk for Falls Disciplines: Skilled Services 08/08/2022 Active 1 goal linked to scheduled/document ed intervention 1 goal intervention scheduled/documen radha in this visit Pain Disciplines: Skilled Services 08/08/2022 Active 1 goal linked to scheduled/document ed intervention 1 goal intervention scheduled/documen radha in this visit High Risk Medications Disciplines: Skilled Services 08/08/2022 Active 1 goal linked to scheduled/document ed intervention 1 goal intervention scheduled/documen radha in this visit Discharge Disciplines: Skilled Services 08/08/2022 Active 1 goal linked to scheduled/document ed intervention 1 goal intervention scheduled/documen radha in this visit PT Impaired mobility Disciplines: PT 08/12/2022 Active 1 goal linked to scheduled/document ed intervention 1 goal intervention scheduled/documen radha in this visit PT Impaired gait Disciplines: PT 08/12/2022 Active 2 goals linked to scheduled/document ed interventions 2 goal interventions scheduled/documen radha in this visit PT Orthopedic Condition Disciplines: PT 08/12/2022 Active 1 goal linked to scheduled/document ed intervention 2 goal interventions scheduled/documen radha in this visit PT Learning Assessment Disciplines: PT 08/12/2022 Active 1 goal linked to scheduled/document ed intervention 1 goal intervention scheduled/documen radha in this visit PT Pulmonary Disease Disciplines: PT 08/12/2022 Active 1 goal linked to scheduled/document ed intervention 1 goal intervention scheduled/docmg garcia in this visit PT Cardiovascular Disease Disciplines: PT 08/12/2022 Active 1 goal linked to scheduled/document ed intervention 1 goal intervention scheduled/docmg garcia in this visit Goals Goal Associated Problem Outcome Goal Met? Visit Notes Patient/caregiver will demonstrate ability to obtain, store, identify and administer ordered medications, keep accurate medication list in home, and adhere to medication schedule Description: Patient/caregiver will demonstrate ability to obtain, store, identify and administer ordered medications, keep accurate medication list in home, and adhere to medication schedule by 06 October 2022. Medication Education No Patient/caregiver will be able to identify and report symptoms of sepsis Description: Patient/caregiver will be able to identify signs/symptoms of sepsis infection and will verbalize actions to take if suspected by 06 October 2022. Sepsis No Patient will have uncomplicated recovery after transplant Description: Patient and/or caregiver will verbalize and/or demonstrate understanding of post-transplant precautions, complications, and self-management to be achieved by 06 October 2022. Post-Transplant No Manage risk for skin breakdown Description: Patient/caregiver will verbalize and demonstrate understanding of the risks and measures to be taken to monitor and prevent skin breakdown by 06 October 2022. Risk for skin breakdown No Patient to maintain parameters within physician-specified ranges throughout certification period Physician Specific Parameters No Manage Risk for falls Description: Patient/caregiver will verbalize knowledge of individualized fall prevention strategies by 06 October 2022. Risk for Falls No Manage Pain Description: Patient/caregiver will verbalize knowledge and understanding of appropriate techniques to control pain, including pain medication and non-pharmacological techniques. Patient will verbalize or demonstrate an acceptable level of pain as evidenced by a pain score of 0-3/10 and improvement in ability to perform activities of daily living to be achieved by 06 October 2022. Pain No Patient/caregiver will teach back high risk medication side effect and precaution education High Risk Medications No Manage discharge planning Description: Patient/caregiver will verbalize understanding of ongoing discharge plan provided related to disease management, arrangements for outpatient and/or community services, obtaining medications, supplies, and DME, as needed throughout certification period. Discharge No Improved Transfers Description: LTG: Patient will demonstrate safe transfers to/from bed, chair and car independently, to be achieved by 08/28/2022. PT Impaired mobility No Improved Stair Climbing Description: LTG: Patient will demonstrate improved stair negotiation as evidenced by ascend/descend 12 steps with railing independently, to safely access all areas of the home (basement of personal home) and to enter/exit personal home, to be achieved by 08/28/2022. PT Impaired gait No Improved Gait Description: STG: Patient will demonstrate improved gait ability as evidenced by ambulation 100 feet with no device and SUP, in order to improve household ambulation independence, to be achieved by 08/21/2022. LTG: Patient will demonstrate improved gait ability as evidenced by ambulation 300 feet with least restrictive AD and Mod I, to return to safe community ambulation, in order to improve access to community, and to improve access to outdoor space/MD appointments to be achieved by 08/28/2022. PT Impaired gait No Manage Orthopedic Condition Description: Improve patient and/or caregiver understanding of post surgical and/or non-surgical orthopedic intervention management as evidenced by patient and/or caregiver able to verbalize, demonstrate, and teach back instruction, to be achieved by 08/28/2022. PT Orthopedic Condition No Demonstrate understanding of education Description: Patient and/or caregiver will understand educational instruction to be achieved by 08/28/2022. PT Learning Assessment No Manage Primary Pulmonary Disease Description: Improve patient and/or caregiver understanding of primary pulmonary disease as evidenced by patient and/or caregiver able to verbalize, demonstrate, and teach back instruction, to be achieved by 08/28/2022. PT Pulmonary Disease No Manage Secondary Cardiovascular disease Description: Improve patient and/or caregiver understanding of secondary cardiovascular disease management as evidenced by patient and/or caregiver able to verbalize, demonstrate, and teach back instruction, to be achieved by 08/28/2022. PT Cardiovascular Disease No Interventions Intervention Associated Problem/Goal Status Variance Visit Notes Medication Education Description: Evaluate/instruct patient/caregiver on obtaining, storing, identifying and administering ordered medications as well as keeping accurate medication list in the home and adhereing to medication schedule Problem:Medication Education Goal:Patient/caregive r will demonstrate ability to obtain, store, identify and administer ordered medications, keep accurate medication list in home, and adhere to medication schedule Completed Patient instructed on importance of keeping accurate medication list in home, adhering to medication schedule and proper storage of medications. Risk of Sepsis Description: Patient is at risk for sepsis. Monitor closely for s/s of sepsis. Problem:Sepsis Goal:Patient/caregive r will be able to identify and report symptoms of sepsis Completed Assess and instruct patient/caregiver on post-transplant precautions, complications, and self-management strategies Description: Instruct patient/caregiver on after-care for Lung transplant. Problem:Post-Transpla nt Goal:Patient will have uncomplicated recovery after transplant Completed Patient instructed on post-transplant activity guidelines, diet and post-op surgical precautions as referred to in post-transplant binder. Instruct on the risks and measures to be taken to prevent skin breakdown Description: Patient's Fernando Score is: 18. A Fernando score <= to 18 indicates risk for skin breakdown. Problem:Risk for skin breakdown Goal:Manage risk for skin breakdown Completed patient instructed on maintaining skin integrity including: The need for every 1-2 hour turns, position changes, and maintaining activity as tolerated and Routine skin care SPO2 Description: Notify Regina Decker APRN.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 MANAGER if pulse ox is <92% at rest. Problem:Physician Specific Parameters Goal:Patient to maintain parameters within physician-specified ranges throughout certification period Completed Instruct on individual fall risk factors and strategies to prevent falls and injuries caused by falls. Problem:Risk for Falls Goal:Manage Risk for falls Completed PT: Patient instructed on Eliminating Environmental Hazards: Keep pathways clear, Keep rooms and walkways well lit, Wear supportive shoes or non-skid socks and Keep frequently used items within reach Managing Impaired Functional Mobility: Use assistive device(s): rollator walker Managing Pain Instruct on pain and instruct on strategies to control pain Problem:Pain Goal:Manage Pain Completed patient instructed on techniques to control pain including Pharmacological measures and Non-Pharmacological measures; rest, positioning/elevation, mobility/therapeutic exercise, breathing/relaxation and use of DME/assistive devices. Opioids- educated on high risk medication Problem:High Risk Medications Goal:Patient/caregive r will teach back high risk medication side effect and precaution education Completed patient educated on taking medication(s) as prescribed by provider. Do not stop medication or alter doses without speaking with your provider. Discuss medication effectiveness or side effect concerns with your provider and home care team. Only take opioids as prescribed, do not share your medications, and take proper precautions in storing and properly disposing of opioids once no longer needed. Possible side effects of opioid medication including sedation, decreased rate of breathing, and constipation. Report over sedation to prescribing provider and practice deep breathing techniques every hour while awake. Prevent constipation by increasing water and fiber intake, increasing activity as tolerated, and use stool softener(s) as prescribed. Instruct on ongoing discharge plan Problem:Discharge Goal:Manage discharge planning Completed Ongoing Discharge plan: Discharge plan discussed with patient including frequency and duration for home PT and plan for transition to: cardiac/pulmonary rehab. Physical Therapy Transfer Training Problem:PT Impaired mobility Goal:Improved Transfers Completed Transfer training and instruction to patient on safe transfers to and from chair with supervision and verbal cues for eccentric control. Physical Therapy Stair Training Problem:PT Impaired gait Goal:Improved Stair Climbing Completed Stair training and instruction to patient on safe stair climbing, ascend/descend 8 steps x2, with railing and spc with supervision and verbal cues for pace. Pt descends non reciprocally and ascends reciprocally. Physical Therapy Gait Training Problem:PT Impaired gait Goal:Improved Gait Completed Gait training and instruction to patient on safe ambulation with rollator walker for 200+ feet and spc for 100' with stand by assist, with verbal cues for corrections of gait deviations including pace and posture. Instruct on orthopedic precautions and weight bearing restrictions Description: Orthopedic precautions including sternal/abdominal precautions. Problem:PT Orthopedic Condition Goal:Manage Orthopedic Condition Completed patient instructed on orthopedic precautions. Instruct on self-management of post surgical and/or non-surgical orthopedic intervention Problem:PT Orthopedic Condition Goal:Manage Orthopedic Condition Completed patient instructed on managagement of orthopedic condition, staying well hydrated and eating foods with high protein. Instruct and educate on knowledge deficits Problem:PT Learning Assessment Goal:Demonstrate understanding of education Completed patient verbalize and/or demonstrate understanding of physical therapy education including cardiac disease management, pulmonary disease management, surgical precautions, pain management, fall prevention strategies, home safety, functional activity. Education methods include: verbal, visual. Further education required to improve knowledge and compliance with cardiac disease management, pulmonary disease management, surgical precautions, pain management, fall prevention strategies, home safety, functional activity and home exercise program. Instruct on signs, symptoms, and management of primary pulmonary disease Problem:PT Pulmonary Disease Goal:Manage Primary Pulmonary Disease Completed patient instructed on energy conservation and exercise and activity guidelines. Instruct on signs, symptoms, and management of secondary cardiovascular disease Problem:PT Cardiovascular Disease Goal:Manage Secondary Cardiovascular disease Completed Instructed patient on use of RPE, energy conservation and exercise and activity guidelines. 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 Discipline -Physical Therapy Problems Problem Description Start Date Status Goals Interve ntions Medication Education Disciplines: Skilled Services 08/08/2022 Active 1 goal linked to scheduled/document ed intervention 1 goal intervention scheduled/document ed in this visit Physician Specific Parameters Disciplines: Skilled Services 08/08/2022 Active 1 goal linked to scheduled/document ed intervention 1 goal intervention scheduled/document ed in this visit Risk for Falls Disciplines: Skilled Services 08/08/2022 Active 1 goal linked to scheduled/document ed intervention 1 goal intervention scheduled/document ed in this visit Pain Disciplines: Skilled Services 08/08/2022 Active 1 goal linked to scheduled/document ed intervention 1 goal intervention scheduled/document ed in this visit PT Impaired muscle performance and/or ROM Disciplines: PT 08/12/2022 Active 1 goal linked to scheduled/document ed intervention 1 goal intervention scheduled/document ed in this visit PT Impaired gait Disciplines: PT 08/12/2022 Active 1 goal linked to scheduled/document ed intervention 1 goal intervention scheduled/document ed in this visit Goals Goal Associated Problem Outcome Goal Met? Visit Notes Patient/caregiver will demonstrate ability to obtain, store, identify and administer ordered medications, keep accurate medication list in home, and adhere to medication schedule Description: Patient/caregiver will demonstrate ability to obtain, store, identify and administer ordered medications, keep accurate medication list in home, and adhere to medication schedule by 06 October 2022. Medication Education No Patient to maintain parameters within physician-specified ranges throughout certification period Physician Specific Parameters No Manage Risk for falls Description: Patient/caregiver will verbalize knowledge of individualized fall prevention strategies by 06 October 2022. Risk for Falls No Manage Pain Description: Patient/caregiver will verbalize knowledge and understanding of appropriate techniques to control pain, including pain medication and non-pharmacological techniques. Patient will verbalize or demonstrate an acceptable level of pain as evidenced by a pain score of 0-3/10 and improvement in ability to perform activities of daily living to be achieved by 06 October 2022. Pain No Improved Muscle Performance and/or ROM Description: LTG: Patient and/or caregiver will verbalize/demonstrate independence with home exercise program, to improve functional mobility, to be achieved by 08/28/2022. PT Impaired muscle performance and/or ROM No Improved Gait Description: STG: Patient will demonstrate improved gait ability as evidenced by ambulation 100 feet with no device and SUP, in order to improve household ambulation independence, to be achieved by 08/21/2022. LTG: Patient will demonstrate improved gait ability as evidenced by ambulation 300 feet with least restrictive AD and Mod I, to return to safe community ambulation, in order to improve access to community, and to improve access to outdoor space/MD appointments to be achieved by 08/28/2022. PT Impaired gait No Interventions Intervention Associated Problem/Goal Status Variance Visit Notes Medication Education Description: Evaluate/instruct patient/caregiver on obtaining, storing, identifying and administering ordered medications as well as keeping accurate medication list in the home and adhereing to medication schedule Problem:Medication Education Goal:Patient/caregive r will demonstrate ability to obtain, store, identify and administer ordered medications, keep accurate medication list in home, and adhere to medication schedule Completed Patient instructed on importance of keeping accurate medication list in home, adhering to medication schedule and proper storage of medications. SPO2 Description: Notify Regina Decker APRN.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 MANAGER if pulse ox is <92% at rest. Problem:Physician Specific Parameters Goal:Patient to maintain parameters within physician-specified ranges throughout certification period Completed Instruct on individual fall risk factors and strategies to prevent falls and injuries caused by falls. Problem:Risk for Falls Goal:Manage Risk for falls Completed PT: Patient instructed on Eliminating Environmental Hazards: Keep pathways clear, Keep pets out of pathways, Remove unsafe rugs, Move furniture from pathways, Keep rooms and walkways well lit, Install hand rails/grab bars, Wear supportive shoes or non-skid socks and Keep frequently used items within reach Managing Impaired Functional Mobility: Use assistive device(s): front wheeled walker/rollator Managing Pain Instruct on pain and instruct on strategies to control pain Problem:Pain Goal:Manage Pain Completed patient instructed on techniques to control pain including Pharmacological measures and Non-Pharmacological measures; rest, positioning/elevation and mobility/therapeutic exercise. 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 Discipline -Physical Therapy Problems Problem Description Start Date Status Goals Interve ntions Medication Education Disciplines: Skilled Services 08/08/2022 Active 1 goal linked to scheduled/document ed intervention 1 goal intervention scheduled/jamir garcia in this visit Sepsis Disciplines: Skilled Services 08/08/2022 Active 1 goal linked to scheduled/document ed intervention 1 goal intervention scheduled/documen radha in this visit Post-Transplant Disciplines: Skilled Services 08/08/2022 Active 1 goal linked to scheduled/document ed intervention 1 goal intervention scheduled/documen radha in this visit Risk for skin breakdown Disciplines: Skilled Services 08/08/2022 Active 1 goal linked to scheduled/document ed intervention 1 goal intervention scheduled/documen radha in this visit Physician Specific Parameters Disciplines: Skilled Services 08/08/2022 Active 1 goal linked to scheduled/document ed intervention 1 goal intervention scheduled/documen radha in this visit Risk for Falls Disciplines: Skilled Services 08/08/2022 Active 1 goal linked to scheduled/document ed intervention 1 goal intervention scheduled/documen radha in this visit Pain Disciplines: Skilled Services 08/08/2022 Active 1 goal linked to scheduled/document ed intervention 1 goal intervention scheduled/documen radha in this visit High Risk Medications Disciplines: Skilled Services 08/08/2022 Active 1 goal linked to scheduled/document ed intervention 1 goal intervention scheduled/documen radha in this visit Discharge Disciplines: Skilled Services 08/08/2022 Active 1 goal linked to scheduled/document ed intervention 1 goal intervention scheduled/documen radha in this visit PT Impaired mobility Disciplines: PT 08/12/2022 Active 1 goal linked to scheduled/document ed intervention 1 goal intervention scheduled/documen radha in this visit PT Impaired gait Disciplines: PT 08/12/2022 Active 2 goals linked to scheduled/document ed interventions 2 goal interventions scheduled/documen radha in this visit PT Impaired balance Disciplines: PT 08/12/2022 Active 1 goal linked to scheduled/document ed intervention 1 goal intervention scheduled/documen radha in this visit PT Orthopedic Condition Disciplines: PT 08/12/2022 Active 1 goal linked to scheduled/document ed intervention 3 goal interventions scheduled/documen radha in this visit PT Learning Assessment Disciplines: PT 08/12/2022 Active 1 goal linked to scheduled/document ed intervention 1 goal intervention scheduled/documen radha in this visit PT Pulmonary Disease Disciplines: PT 08/12/2022 Active 1 goal linked to scheduled/document ed intervention 1 goal intervention scheduled/documen radha in this visit PT Cardiovascular Disease Disciplines: PT 08/12/2022 Active 1 goal linked to scheduled/document ed intervention 1 goal intervention scheduled/documen radha in this visit Goals Goal Associated Problem Outcome Goal Met? Visit Notes Patient/caregiver will demonstrate ability to obtain, store, identify and administer ordered medications, keep accurate medication list in home, and adhere to medication schedule Description: Patient/caregiver will demonstrate ability to obtain, store, identify and administer ordered medications, keep accurate medication list in home, and adhere to medication schedule by 06 October 2022. Medication Education No Patient/caregiver will be able to identify and report symptoms of sepsis Description: Patient/caregiver will be able to identify signs/symptoms of sepsis infection and will verbalize actions to take if suspected by 06 October 2022. Sepsis No Patient will have uncomplicated recovery after transplant Description: Patient and/or caregiver will verbalize and/or demonstrate understanding of post-transplant precautions, complications, and self-management to be achieved by 06 October 2022. Post-Transplant No Manage risk for skin breakdown Description: Patient/caregiver will verbalize and demonstrate understanding of the risks and measures to be taken to monitor and prevent skin breakdown by 06 October 2022. Risk for skin breakdown No Patient to maintain parameters within physician-specified ranges throughout certification period Physician Specific Parameters No Manage Risk for falls Description: Patient/caregiver will verbalize knowledge of individualized fall prevention strategies by 06 October 2022. Risk for Falls No Manage Pain Description: Patient/caregiver will verbalize knowledge and understanding of appropriate techniques to control pain, including pain medication and non-pharmacological techniques. Patient will verbalize or demonstrate an acceptable level of pain as evidenced by a pain score of 0-3/10 and improvement in ability to perform activities of daily living to be achieved by 06 October 2022. Pain No Patient/caregiver will teach back high risk medication side effect and precaution education High Risk Medications No Manage discharge planning Description: Patient/caregiver will verbalize understanding of ongoing discharge plan provided related to disease management, arrangements for outpatient and/or community services, obtaining medications, supplies, and DME, as needed throughout certification period. Discharge No Improved Transfers Description: LTG: Patient will demonstrate safe transfers to/from bed, chair and car independently, to be achieved by 08/28/2022. - goal met PT Impaired mobility No Improved Stair Climbing Description: LTG: Patient will demonstrate improved stair negotiation as evidenced by ascend/descend 12 steps with railing independently, to safely access all areas of the home (basement of personal home) and to enter/exit personal home, to be achieved by 08/28/2022. PT Impaired gait No Improved Gait Description: STG: Patient will demonstrate improved gait ability as evidenced by ambulation 100 feet with no device and SUP, in order to improve household ambulation independence, to be achieved by 08/21/2022. LTG: Patient will demonstrate improved gait ability as evidenced by ambulation 300 feet with least restrictive AD and Mod I, to return to safe community ambulation, in order to improve access to community, and to improve access to outdoor space/MD appointments to be achieved by 08/28/2022. PT Impaired gait No Improved Balance Description: LTG: Patient will demonstrate improved standing balance to meet functional goals as evidenced by 4 stage balance score of 10 seconds for SLS to be achieved by 08/28/2022. LTG: Patient will demonstrate improved standing balance to meet functional goals as evidenced by TUG score </= 9 sec with no device, to be achieved by 08/28/2022. PT Impaired balance No Manage Orthopedic Condition Description: Improve patient and/or caregiver understanding of post surgical and/or non-surgical orthopedic intervention management as evidenced by patient and/or caregiver able to verbalize, demonstrate, and teach back instruction, to be achieved by 08/28/2022. PT Orthopedic Condition No Demonstrate understanding of education Description: Patient and/or caregiver will understand educational instruction to be achieved by 08/28/2022. PT Learning Assessment No Manage Primary Pulmonary Disease Description: Improve patient and/or caregiver understanding of primary pulmonary disease as evidenced by patient and/or caregiver able to verbalize, demonstrate, and teach back instruction, to be achieved by 08/28/2022. PT Pulmonary Disease No Manage Secondary Cardiovascular disease Description: Improve patient and/or caregiver understanding of secondary cardiovascular disease management as evidenced by patient and/or caregiver able to verbalize, demonstrate, and teach back instruction, to be achieved by 08/28/2022. PT Cardiovascular Disease No Interventions Intervention Associated Problem/Goal Status Variance Visit Notes Medication Education Description: Evaluate/instruct patient/caregiver on obtaining, storing, identifying and administering ordered medications as well as keeping accurate medication list in the home and adhereing to medication schedule Problem:Medication Education Goal:Patient/caregive r will demonstrate ability to obtain, store, identify and administer ordered medications, keep accurate medication list in home, and adhere to medication schedule Completed Patient instructed on importance of keeping accurate medication list in home, adhering to medication schedule and proper storage of medications. Risk of Sepsis Description: Patient is at risk for sepsis. Monitor closely for s/s of sepsis. Problem:Sepsis Goal:Patient/caregive r will be able to identify and report symptoms of sepsis Completed Assess and instruct patient/caregiver on post-transplant precautions, complications, and self-management strategies Description: Instruct patient/caregiver on after-care for Lung transplant. Problem:Post-Transpla nt Goal:Patient will have uncomplicated recovery after transplant Completed Patient instructed on post-transplant activity guidelines and diet as referred to in post-transplant binder. Instruct on the risks and measures to be taken to prevent skin breakdown Description: Patient's Fernando Score is: 18. A Fernando score <= to 18 indicates risk for skin breakdown. Problem:Risk for skin breakdown Goal:Manage risk for skin breakdown Completed patient instructed on maintaining skin integrity including: The need for every 1-2 hour turns, position changes, and maintaining activity as tolerated and Routine skin care SPO2 Description: Notify Regina Decker APRN.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 MANAGER if pulse ox is <92% at rest. Problem:Physician Specific Parameters Goal:Patient to maintain parameters within physician-specified ranges throughout certification period Completed Instruct on individual fall risk factors and strategies to prevent falls and injuries caused by falls. Problem:Risk for Falls Goal:Manage Risk for falls Completed PT: Patient instructed on Eliminating Environmental Hazards: Keep pathways clear, Keep rooms and walkways well lit, Wear supportive shoes or non-skid socks and Keep frequently used items within reach Managing Impaired Functional Mobility: Use assistive device(s): rollator walker and single point cane Managing Pain Instruct on pain and instruct on strategies to control pain Problem:Pain Goal:Manage Pain Completed patient instructed on techniques to control pain including Pharmacological measures and Non-Pharmacological measures; rest, positioning/elevation, mobility/therapeutic exercise, breathing/relaxation and use of DME/assistive devices. Opioids- educated on high risk medication Problem:High Risk Medications Goal:Patient/caregive r will teach back high risk medication side effect and precaution education Completed patient educated on taking medication(s) as prescribed by provider. Do not stop medication or alter doses without speaking with your provider. Discuss medication effectiveness or side effect concerns with your provider and home care team. Only take opioids as prescribed, do not share your medications, and take proper precautions in storing and properly disposing of opioids once no longer needed. Possible side effects of opioid medication including sedation, decreased rate of breathing, and constipation. Report over sedation to prescribing provider and practice deep breathing techniques every hour while awake. Prevent constipation by increasing water and fiber intake, increasing activity as tolerated, and use stool softener(s) as prescribed. Instruct on ongoing discharge plan Problem:Discharge Goal:Manage discharge planning Completed Ongoing Discharge plan: Discharge plan discussed with patient including frequency and duration for home PT and plan for transition to: cardiac/pulmonary rehab. Physical Therapy Transfer Training Problem:PT Impaired mobility Goal:Improved Transfers Completed pt independent with sit<>stand transfers Physical Therapy Stair Training Problem:PT Impaired gait Goal:Improved Stair Climbing Completed Stair training and instruction to patient on safe stair climbing, ascend/descend 8 steps, without railing with supervision and verbal cues for pace. Physical Therapy Gait Training Problem:PT Impaired gait Goal:Improved Gait Completed Gait training and instruction to patient on safe ambulation with no device for 100' x2 with supervision, with verbal cues for corrections of gait deviations including decreased arm swing and wide SOPHIA. Physical Therapy Balance Training Problem:PT Impaired balance Goal:Improved Balance Completed TUG completed in 9.72 seconds with no AD. Instruct on orthopedic precautions and weight bearing restrictions Description: Orthopedic precautions including sternal/abdominal precautions. Problem:PT Orthopedic Condition Goal:Manage Orthopedic Condition Completed patient instructed on orthopedic precautions and weight bearing restrictions. Instruct on management of edema Problem:PT Orthopedic Condition Goal:Manage Orthopedic Condition Completed Instruct patient on management of edema including benefits of activity. Instruct on self-management of post surgical and/or non-surgical orthopedic intervention Problem:PT Orthopedic Condition Goal:Manage Orthopedic Condition Completed patient instructed on managagement of orthopedic condition, staying well hydrated and eating foods with high protein. Instruct and educate on knowledge deficits Problem:PT Learning Assessment Goal:Demonstrate understanding of education Completed patient verbalize and/or demonstrate understanding of physical therapy education including cardiac disease management, pulmonary disease management, surgical precautions, pain management, fall prevention strategies, home safety, functional activity. Education methods include: verbal, visual. Further education required to improve knowledge and compliance with cardiac disease management, pulmonary disease management, surgical precautions, pain management, fall prevention strategies, home safety, functional activity and home exercise program. Instruct on signs, symptoms, and management of primary pulmonary disease Problem:PT Pulmonary Disease Goal:Manage Primary Pulmonary Disease Completed patient instructed on energy conservation and exercise and activity guidelines. Instruct on signs, symptoms, and management of secondary cardiovascular disease Problem:PT Cardiovascular Disease Goal:Manage Secondary Cardiovascular disease Completed Instructed patient on energy conservation and exercise and activity guidelines. 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 Discipline -Physical Therapy Problems Problem Description Start Date Status Goals Interve ntions Medication Education Disciplines: Skilled Services 08/08/2022 Active 1 goal linked to scheduled/documen radha intervention 1 goal intervention scheduled/document ed in this visit Sepsis Disciplines: Skilled Services 08/08/2022 Active 1 goal linked to scheduled/documen radha intervention 1 goal intervention scheduled/document ed in this visit Post-Transplant Disciplines: Skilled Services 08/08/2022 Active 1 goal linked to scheduled/documen radha intervention 1 goal intervention scheduled/document ed in this visit Risk for skin breakdown Disciplines: Skilled Services 08/08/2022 Active 1 goal linked to scheduled/documen radha intervention 1 goal intervention scheduled/document ed in this visit Physician Specific Parameters Disciplines: Skilled Services 08/08/2022 Active 1 goal linked to scheduled/documen radha intervention 1 goal intervention scheduled/document ed in this visit Risk for Falls Disciplines: Skilled Services 08/08/2022 Active 1 goal linked to scheduled/documen radha intervention 1 goal intervention scheduled/document ed in this visit Pain Disciplines: Skilled Services 08/08/2022 Active 1 goal linked to scheduled/documen radha intervention 1 goal intervention scheduled/document ed in this visit High Risk Medications Disciplines: Skilled Services 08/08/2022 Active 1 goal linked to scheduled/documen radha intervention 1 goal intervention scheduled/document ed in this visit Discharge Disciplines: Skilled Services 08/08/2022 Active 1 goal linked to scheduled/documen radha intervention 1 goal intervention scheduled/document ed in this visit PT Impaired gait Disciplines: PT 08/12/2022 Active 1 goal linked to scheduled/documen radha intervention 1 goal intervention scheduled/document ed in this visit PT Impaired balance Disciplines: PT 08/12/2022 Active 1 goal linked to scheduled/documen radha intervention 1 goal intervention scheduled/document ed in this visit PT Orthopedic Condition Disciplines: PT 08/12/2022 Active 1 goal linked to scheduled/documen radha intervention 3 goal interventions scheduled/document ed in this visit PT Learning Assessment Disciplines: PT 08/12/2022 Active 1 goal linked to scheduled/documen radha intervention 1 goal intervention scheduled/document ed in this visit PT Pulmonary Disease Disciplines: PT 08/12/2022 Active 1 goal linked to scheduled/documen radha intervention 1 goal intervention scheduled/document ed in this visit PT Cardiovascular Disease Disciplines: PT 08/12/2022 Active 1 goal linked to scheduled/documen radha intervention 1 goal intervention scheduled/document ed in this visit Goals Goal Associated Problem Outcome Goal Met? Visit Notes Patient/caregiver will demonstrate ability to obtain, store, identify and administer ordered medications, keep accurate medication list in home, and adhere to medication schedule Description: Patient/caregiver will demonstrate ability to obtain, store, identify and administer ordered medications, keep accurate medication list in home, and adhere to medication schedule by 06 October 2022. Medication Education No Patient/caregiver will be able to identify and report symptoms of sepsis Description: Patient/caregiver will be able to identify signs/symptoms of sepsis infection and will verbalize actions to take if suspected by 06 October 2022. Sepsis No Patient will have uncomplicated recovery after transplant Description: Patient and/or caregiver will verbalize and/or demonstrate understanding of post-transplant precautions, complications, and self-management to be achieved by 06 October 2022. Post-Transplant No Manage risk for skin breakdown Description: Patient/caregiver will verbalize and demonstrate understanding of the risks and measures to be taken to monitor and prevent skin breakdown by 06 October 2022. Risk for skin breakdown No Patient to maintain parameters within physician-specified ranges throughout certification period Physician Specific Parameters No Manage Risk for falls Description: Patient/caregiver will verbalize knowledge of individualized fall prevention strategies by 06 October 2022. Risk for Falls No Manage Pain Description: Patient/caregiver will verbalize knowledge and understanding of appropriate techniques to control pain, including pain medication and non-pharmacological techniques. Patient will verbalize or demonstrate an acceptable level of pain as evidenced by a pain score of 0-3/10 and improvement in ability to perform activities of daily living to be achieved by 06 October 2022. Pain No Patient/caregiver will teach back high risk medication side effect and precaution education High Risk Medications No Manage discharge planning Description: Patient/caregiver will verbalize understanding of ongoing discharge plan provided related to disease management, arrangements for outpatient and/or community services, obtaining medications, supplies, and DME, as needed throughout certification period. Discharge No Improved Gait Description: STG: Patient will demonstrate improved gait ability as evidenced by ambulation 100 feet with no device and SUP, in order to improve household ambulation independence, to be achieved by 08/21/2022. LTG: Patient will demonstrate improved gait ability as evidenced by ambulation 300 feet with least restrictive AD and Mod I, to return to safe community ambulation, in order to improve access to community, and to improve access to outdoor space/MD appointments to be achieved by 08/28/2022. PT Impaired gait No Improved Balance Description: LTG: Patient will demonstrate improved standing balance to meet functional goals as evidenced by 4 stage balance score of 10 seconds for SLS to be achieved by 08/28/2022. LTG: Patient will demonstrate improved standing balance to meet functional goals as evidenced by TUG score </= 9 sec with no device, to be achieved by 08/28/2022. PT Impaired balance No Manage Orthopedic Condition Description: Improve patient and/or caregiver understanding of post surgical and/or non-surgical orthopedic intervention management as evidenced by patient and/or caregiver able to verbalize, demonstrate, and teach back instruction, to be achieved by 08/28/2022. PT Orthopedic Condition No Demonstrate understanding of education Description: Patient and/or caregiver will understand educational instruction to be achieved by 08/28/2022. PT Learning Assessment No Manage Primary Pulmonary Disease Description: Improve patient and/or caregiver understanding of primary pulmonary disease as evidenced by patient and/or caregiver able to verbalize, demonstrate, and teach back instruction, to be achieved by 08/28/2022. PT Pulmonary Disease No Manage Secondary Cardiovascular disease Description: Improve patient and/or caregiver understanding of secondary cardiovascular disease management as evidenced by patient and/or caregiver able to verbalize, demonstrate, and teach back instruction, to be achieved by 08/28/2022. PT Cardiovascular Disease No Interventions Intervention Associated Problem/Goal Status Variance Visit Notes Medication Education Description: Evaluate/instruct patient/caregiver on obtaining, storing, identifying and administering ordered medications as well as keeping accurate medication list in the home and adhereing to medication schedule Problem:Medication Education Goal:Patient/caregive r will demonstrate ability to obtain, store, identify and administer ordered medications, keep accurate medication list in home, and adhere to medication schedule Completed Patient instructed on importance of keeping accurate medication list in home, adhering to medication schedule and proper storage of medications. Risk of Sepsis Description: Patient is at risk for sepsis. Monitor closely for s/s of sepsis. Problem:Sepsis Goal:Patient/caregive r will be able to identify and report symptoms of sepsis Completed Assess and instruct patient/caregiver on post-transplant precautions, complications, and self-management strategies Description: Instruct patient/caregiver on after-care for Lung transplant. Problem:Post-Transpla nt Goal:Patient will have uncomplicated recovery after transplant Completed Patient instructed on post-transplant activity guidelines and diet as referred to in post-transplant binder. Instruct on the risks and measures to be taken to prevent skin breakdown Description: Patient's Fernando Score is: 18. A Fernando score <= to 18 indicates risk for skin breakdown. Problem:Risk for skin breakdown Goal:Manage risk for skin breakdown Completed patient instructed on maintaining skin integrity including: The need for every 1-2 hour turns, position changes, and maintaining activity as tolerated and Routine skin care SPO2 Description: Notify Regina Decker APRN.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 MANAGER if pulse ox is <92% at rest. Problem:Physician Specific Parameters Goal:Patient to maintain parameters within physician-specified ranges throughout certification period Completed Instruct on individual fall risk factors and strategies to prevent falls and injuries caused by falls. Problem:Risk for Falls Goal:Manage Risk for falls Completed PT: Patient instructed on Eliminating Environmental Hazards: Move furniture from pathways, Keep rooms and walkways well lit, Wear supportive shoes or non-skid socks and Keep frequently used items within reach Managing Impaired Functional Mobility: Use assistive device(s): rollator walker for increased distances Managing Pain Instruct on pain and instruct on strategies to control pain Problem:Pain Goal:Manage Pain Completed patient instructed on techniques to control pain including Pharmacological measures and Non-Pharmacological measures; rest, positioning/elevation, mobility/therapeutic exercise and use of DME/assistive devices. Opioids- educated on high risk medication Problem:High Risk Medications Goal:Patient/caregive r will teach back high risk medication side effect and precaution education Completed patient educated on taking medication(s) as prescribed by provider. Do not stop medication or alter doses without speaking with your provider. Discuss medication effectiveness or side effect concerns with your provider and home care team. Only take opioids as prescribed, do not share your medications, and take proper precautions in storing and properly disposing of opioids once no longer needed. Possible side effects of opioid medication including sedation, decreased rate of breathing, and constipation. Report over sedation to prescribing provider and practice deep breathing techniques every hour while awake. Prevent constipation by increasing water and fiber intake, increasing activity as tolerated, and use stool softener(s) as prescribed. Instruct on ongoing discharge plan Problem:Discharge Goal:Manage discharge planning Completed Ongoing Discharge plan: Discharge plan discussed with patient including frequency and duration for home PT and plan for transition to: cardiac/pulmonary rehab. Physical Therapy Gait Training Problem:PT Impaired gait Goal:Improved Gait Completed Gait training and instruction to patient on safe ambulation with no device for 200+ feet with supervision, with verbal cues for corrections of gait deviations including pace and downward gaze. Physical Therapy Balance Training Problem:PT Impaired balance Goal:Improved Balance Completed Developed, implemented, and instructed patient on standing balance exercises including high knees and butt kicks with ambulation, side stepping and [place] with no UE support and close sup from therapist. no LOB noted. Instruct on orthopedic precautions and weight bearing restrictions Description: Orthopedic precautions including sternal/abdominal precautions. Problem:PT Orthopedic Condition Goal:Manage Orthopedic Condition Completed patient instructed on orthopedic precautions and weight bearing restrictions. Instruct on management of edema Problem:PT Orthopedic Condition Goal:Manage Orthopedic Condition Completed Instruct patient on management of edema including benefits of activity. Instruct on self-management of post surgical and/or non-surgical orthopedic intervention Problem:PT Orthopedic Condition Goal:Manage Orthopedic Condition Completed patient instructed on managagement of orthopedic condition, staying well hydrated and eating foods with high protein. Instruct and educate on knowledge deficits Problem:PT Learning Assessment Goal:Demonstrate understanding of education Completed patient verbalize and/or demonstrate understanding of physical therapy education including cardiac disease management, pulmonary disease management, surgical precautions, pain management, fall prevention strategies, home safety, functional activity. Education methods include: verbal, visual. Further education required to improve knowledge and compliance with cardiac disease management, pulmonary disease management, surgical precautions, pain management, fall prevention strategies, home safety, functional activity and home exercise program. Instruct on signs, symptoms, and management of primary pulmonary disease Problem:PT Pulmonary Disease Goal:Manage Primary Pulmonary Disease Completed patient instructed on energy conservation, exercise and activity guidelines and avoiding irritants. Instruct on signs, symptoms, and management of secondary cardiovascular disease Problem:PT Cardiovascular Disease Goal:Manage Secondary Cardiovascular disease Completed Instructed patient on energy conservation and exercise and activity guidelines. [facility] Visit Details Visit Type -SN ROUTINE Discipline -Detention Problems Problem Description Start Date Status Goals Interve ntions SN Integumentary/W ounds Disciplines: SN 08/08/2022 Active 1 goal linked to scheduled/documente d intervention 2 goal interventions scheduled/documente d in this visit High Risk Medications Disciplines: Skilled Services 08/08/2022 Active 1 goal linked to scheduled/documente d intervention 1 goal intervention scheduled/documente d in this visit Goals Goal Associated Problem Outcome Goal Met? Visit Notes Patient/Caregiver will have improved healing and be free of signs and symptoms of complications Description: Patient/caregiver will verbalize management strategies to promote wound healing & prevent complications as evidenced by improved healing & no complications by 11 September 2022. SN Integumentary/Wounds No Patient/caregiver will teach back high risk medication side effect and precaution education High Risk Medications No Interventions Intervention Associated Problem/Goal Status Variance Visit Notes Drain Care: Perform drain care Description: Drain care as follows Cleanse around insertion sites with soap and water, allow to dry, cover with dry sterile dressing. Change daily. Problem:SN Integumentary/Wounds Goal:Patient/Caregiver will have improved healing and be free of signs and symptoms of complications Completed Drains removed by physician. Site assessed, dsd removed and new applied. Wound Care: Perform wound care (1) Description: Incision open to air. Sutures/lidia to be removed at follow up with transplant team May cover with dry sterile dressing for drainage. Change daily. Notify surgeon if drainage occurs or S/S of infection/complicatio ns. Problem:SN Integumentary/Wounds Goal:Patient/Caregiver will have improved healing and be free of signs and symptoms of complications Completed Completed by patient/caregiver completed independently . Patient did tolerate well. Antibiotic- educated on high risk medication Problem:High Risk Medications Goal:Patient/caregiver will teach back high risk medication side effect and precaution education Completed patient educated on taking medication(s) as prescribed by provider. Do not stop medication or alter doses without speaking with your provider. Discuss medication effectiveness or side effect concerns with your provider and home care team. Take the full dispensed amount even if you start feeling better, as bacteria can become resistant to antibiotic treatment if you do not finish your prescription. Common side effects are upset stomach and diarrhea. Take your antibiotics with food unless otherwise indicated to help with indigestion. Taking an cyob-zwb-vqiqzqa probiotic or eating yogurt with live and active cultures three times a day can help prevent antibiotic-associated diarrhea. Call your provider immediately if you develop rashes or hives as this could be a delayed allergic reaction. Seek emergency treatment if you develop severe allergic reaction symptoms such as mouth or tongue swelling. documented in this encounter [facility] home Plan of care note* Visit Details Visit Type -PT DISC DC W VIS IT Discipline -Physical Therapy Problems Problem Description Start Date Status Goals Interve ntions Medication Education Disciplines: Skilled Services 08/08/2022 Active 1 goal linked to scheduled/document ed intervention 1 goal intervention scheduled/documen radha in this visit Sepsis Disciplines: Skilled Services 08/08/2022 Active 1 goal linked to scheduled/document ed intervention 1 goal intervention scheduled/documen radha in this visit Post-Transplant Disciplines: Skilled Services 08/08/2022 Active 1 goal linked to scheduled/document ed intervention 1 goal intervention scheduled/documen radha in this visit Physician Specific Parameters Disciplines: Skilled Services 08/08/2022 Active 1 goal linked to scheduled/document ed intervention 1 goal intervention scheduled/documen radha in this visit Risk for Falls Disciplines: Skilled Services 08/08/2022 Active 1 goal linked to scheduled/document ed intervention 1 goal intervention scheduled/documen radha in this visit Pain Disciplines: Skilled Services 08/08/2022 Active 1 goal linked to scheduled/document ed intervention 1 goal intervention scheduled/documen radha in this visit High Risk Medications Disciplines: Skilled Services 08/08/2022 Active 1 goal linked to scheduled/document ed intervention 3 goal interventions scheduled/documen radha in this visit Discharge Disciplines: Skilled Services 08/08/2022 Active 1 goal linked to scheduled/document ed intervention 1 goal intervention scheduled/documen radha in this visit PT Impaired muscle performance and/or ROM Disciplines: PT 08/12/2022 Active 1 goal linked to scheduled/document ed intervention 1 goal intervention scheduled/documen radha in this visit PT Impaired gait Disciplines: PT 08/12/2022 Active 2 goals linked to scheduled/document ed interventions 2 goal interventions scheduled/documen radha in this visit PT Impaired balance Disciplines: PT 08/12/2022 Active 1 goal linked to scheduled/document ed intervention 1 goal intervention scheduled/documen radha in this visit PT Orthopedic Condition Disciplines: PT 08/12/2022 Active 1 goal linked to scheduled/document ed intervention 2 goal interventions scheduled/documen radha in this visit PT Learning Assessment Disciplines: PT 08/12/2022 Active 1 goal linked to scheduled/document ed intervention 1 goal intervention scheduled/documen radha in this visit PT Pulmonary Disease Disciplines: PT 08/12/2022 Active 1 goal linked to scheduled/document ed intervention 1 goal intervention scheduled/documen radha in this visit PT Cardiovascular Disease Disciplines: PT 08/12/2022 Active 1 goal linked to scheduled/document ed intervention 1 goal intervention scheduled/documen radha in this visit Goals Goal Associated Problem Outcome Goal Met? Visit Notes Patient/caregiver will demonstrate ability to obtain, store, identify and administer ordered medications, keep accurate medication list in home, and adhere to medication schedule Description: Patient/caregiver will demonstrate ability to obtain, store, identify and administer ordered medications, keep accurate medication list in home, and adhere to medication schedule by 06 October 2022. Medication Education No Patient/caregiver will be able to identify and report symptoms of sepsis Description: Patient/caregiver will be able to identify signs/symptoms of sepsis infection and will verbalize actions to take if suspected by 06 October 2022. Sepsis No Patient will have uncomplicated recovery after transplant Description: Patient and/or caregiver will verbalize and/or demonstrate understanding of post-transplant precautions, complications, and self-management to be achieved by 06 October 2022. Post-Transplant No Patient to maintain parameters within physician-specified ranges throughout certification period Physician Specific Parameters No Manage Risk for falls Description: Patient/caregiver will verbalize knowledge of individualized fall prevention strategies by 06 October 2022. Risk for Falls No Manage Pain Description: Patient/caregiver will verbalize knowledge and understanding of appropriate techniques to control pain, including pain medication and non-pharmacological techniques. Patient will verbalize or demonstrate an acceptable level of pain as evidenced by a pain score of 0-3/10 and improvement in ability to perform activities of daily living to be achieved by 06 October 2022. Pain No Patient/caregiver will teach back high risk medication side effect and precaution education High Risk Medications No Manage discharge planning Description: Patient/caregiver will verbalize understanding of ongoing discharge plan provided related to disease management, arrangements for outpatient and/or community services, obtaining medications, supplies, and DME, as needed throughout certification period. Discharge No Improved Muscle Performance and/or ROM Description: LTG: Patient and/or caregiver will verbalize/demonstrate independence with home exercise program, to improve functional mobility, to be achieved by 08/28/2022. - goal met PT Impaired muscle performance and/or ROM Completed Yes Improved Stair Climbing Description: LTG: Patient will demonstrate improved stair negotiation as evidenced by ascend/descend 12 steps with railing independently, to safely access all areas of the home (basement of personal home) and to enter/exit personal home, to be achieved by 08/28/2022. - goal met PT Impaired gait Completed Yes Improved Gait Description: STG: Patient will demonstrate improved gait ability as evidenced by ambulation 100 feet with no device and SUP, in order to improve household ambulation independence, to be achieved by 08/21/2022. - goal met LTG: Patient will demonstrate improved gait ability as evidenced by ambulation 300 feet with least restrictive AD and Mod I, to return to safe community ambulation, in order to improve access to community, and to improve access to outdoor space/MD appointments to be achieved by 08/28/2022. - goal met PT Impaired gait Completed Yes Improved Balance Description: LTG: Patient will demonstrate improved standing balance to meet functional goals as evidenced by 4 stage balance score of 10 seconds for SLS to be achieved by 08/28/2022. - goal met LTG: Patient will demonstrate improved standing balance to meet functional goals as evidenced by TUG score </= 9 sec with no device, to be achieved by 08/28/2022. - goal met PT Impaired balance Completed Yes Manage Orthopedic Condition Description: Improve patient and/or caregiver understanding of post surgical and/or non-surgical orthopedic intervention management as evidenced by patient and/or caregiver able to verbalize, demonstrate, and teach back instruction, to be achieved by 08/28/2022. - goal met PT Orthopedic Condition Completed Yes Demonstrate understanding of education Description: Patient and/or caregiver will understand educational instruction to be achieved by 08/28/2022. - goal met PT Learning Assessment Completed Yes Manage Primary Pulmonary Disease Description: Improve patient and/or caregiver understanding of primary pulmonary disease as evidenced by patient and/or caregiver able to verbalize, demonstrate, and teach back instruction, to be achieved by 08/28/2022. - goal met PT Pulmonary Disease Completed Yes Manage Secondary Cardiovascular disease Description: Improve patient and/or caregiver understanding of secondary cardiovascular disease management as evidenced by patient and/or caregiver able to verbalize, demonstrate, and teach back instruction, to be achieved by 08/28/2022. - goal met PT Cardiovascular Disease Completed Yes Interventions Intervention Associated Problem/Goal Status Variance Visit Notes Medication Education Description: Evaluate/instruct patient/caregiver on obtaining, storing, identifying and administering ordered medications as well as keeping accurate medication list in the home and adhereing to medication schedule Problem:Medication Education Goal:Patient/caregive r will demonstrate ability to obtain, store, identify and administer ordered medications, keep accurate medication list in home, and adhere to medication schedule Completed Patient instructed on importance of keeping accurate medication list in home, adhering to medication schedule and proper storage of medications. Risk of Sepsis Description: Patient is at risk for sepsis. Monitor closely for s/s of sepsis. Problem:Sepsis Goal:Patient/caregive r will be able to identify and report symptoms of sepsis Completed Assess and instruct patient/caregiver on post-transplant precautions, complications, and self-management strategies Description: Instruct patient/caregiver on after-care for Lung transplant. Problem:Post-Transpla nt Goal:Patient will have uncomplicated recovery after transplant Completed Patient instructed on preventing infection, signs and symptoms of post-transplant infection, post-transplant activity guidelines, post-op surgical precautions and importance of lab studies as referred to in post-transplant binder. SPO2 Description: Notify Regina Decker APRN.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 MANAGER if pulse ox is <92% at rest. Problem:Physician Specific Parameters Goal:Patient to maintain parameters within physician-specified ranges throughout certification period Completed Instruct on individual fall risk factors and strategies to prevent falls and injuries caused by falls. Problem:Risk for Falls Goal:Manage Risk for falls Completed 2PT: Patient instructed on Eliminating Environmental Hazards: Keep pathways clear, Keep rooms and walkways well lit, Wear supportive shoes or non-skid socks and Keep frequently used items within reach Managing Pain Instruct on pain and instruct on strategies to control pain Problem:Pain Goal:Manage Pain Completed patient instructed on techniques to control pain including Pharmacological measures and Non-Pharmacological measures; rest, positioning/elevation and mobility/therapeutic exercise. Opioids- educated on high risk medication Problem:High Risk Medications Goal:Patient/caregive r will teach back high risk medication side effect and precaution education Completed patient educated on taking medication(s) as prescribed by provider. Do not stop medication or alter doses without speaking with your provider. Discuss medication effectiveness or side effect concerns with your provider and home care team. Only take opioids as prescribed, do not share your medications, and take proper precautions in storing and properly disposing of opioids once no longer needed. Possible side effects of opioid medication including sedation, decreased rate of breathing, and constipation. Report over sedation to prescribing provider and practice deep breathing techniques every hour while awake. Prevent constipation by increasing water and fiber intake, increasing activity as tolerated, and use stool softener(s) as prescribed. Hypoglycemic (including insulin)- educated on high risk medication Problem:High Risk Medications Goal:Patient/caregive r will teach back high risk medication side effect and precaution education Completed patient educated on taking medication(s) as prescribed by provider. Do not stop medication or skip/alter doses without speaking with your provider. Discuss medication effectiveness or side effect concerns with your provider and home care team. Check blood sugars and keep log as ordered by provider. Monitor for side effects of hypoglycemia such as increased weakness or shaking, moist skin, sweating, fast heartbeat, dizziness, sudden hunger, confusion, pale skin, numbness in mouth or tongue, irritability, nervousness, unsteadiness, nightmares, bad dreams, and restless sleep. Checking your blood sugar routinely and eating a consistent diabetic diet can help regulate blood sugars and reduce side effects. Antibiotic- educated on high risk medication Problem:High Risk Medications Goal:Patient/caregive r will teach back high risk medication side effect and precaution education Completed patient educated on taking medication(s) as prescribed by provider. Do not stop medication or alter doses without speaking with your provider. Discuss medication effectiveness or side effect concerns with your provider and home care team. Take the full dispensed amount even if you start feeling better, as bacteria can become resistant to antibiotic treatment if you do not finish your prescription. Common side effects are upset stomach and diarrhea. Take your antibiotics with food unless otherwise indicated to help with indigestion. Taking an jubx-vcu-tpaoshh probiotic or eating yogurt with live and active cultures three times a day can help prevent antibiotic-associated diarrhea. Call your provider immediately if you develop rashes or hives as this could be a delayed allergic reaction. Seek emergency treatment if you develop severe allergic reaction symptoms such as mouth or tongue swelling. Instruct on ongoing discharge plan Problem:Discharge Goal:Manage discharge planning Completed Ongoing Discharge plan: Discharge plan discussed with patient including frequency and duration for home PT and plan for transition to: outpatient therapy. Physical Therapy Therapeutic Exercises Problem:PT Impaired muscle performance and/or ROM Goal:Improved Muscle Performance and/or ROM Completed Patient is independent with full HEP Physical Therapy Stair Training Problem:PT Impaired gait Goal:Improved Stair Climbing Completed Patient is independent with all stairs Physical Therapy Gait Training Problem:PT Impaired gait Goal:Improved Gait Completed Patient is independent with all gait of 200ft with no AD Physical Therapy Balance Training Problem:PT Impaired balance Goal:Improved Balance Completed TUG completed this date at 7.5sec with no AD Instruct on management of edema Problem:PT Orthopedic Condition Goal:Manage Orthopedic Condition Completed Instruct patient on management of edema including benefits of activity. Instruct on self-management of post surgical and/or non-surgical orthopedic intervention Problem:PT Orthopedic Condition Goal:Manage Orthopedic Condition Completed patient instructed on managagement of orthopedic condition, staying well hydrated, signs and symptoms of infection, signs and symptoms of DVT/PE, follow provider guidance for showering , instructed on when to call provider and instructed on when to call 911. Instruct and educate on knowledge deficits Problem:PT Learning Assessment Goal:Demonstrate understanding of education Completed patient verbalize and/or demonstrate understanding of physical therapy education including cardiac disease management, pulmonary disease management, surgical precautions, pain management, fall prevention strategies, home safety, integumentary and incision/wound care management, functional activity and home exercise program. Education methods include: verbal cues, tactile cues and written instructions. Further education required to improve knowledge and compliance with none. Instruct on signs, symptoms, and management of primary pulmonary disease Problem:PT Pulmonary Disease Goal:Manage Primary Pulmonary Disease Completed patient instructed on definition of pulmonary disease, use of RPE scale, exercise and activity guidelines and instructed on when to call provider. Instruct on signs, symptoms, and management of secondary cardiovascular disease Problem:PT Cardiovascular Disease Goal:Manage Secondary Cardiovascular disease Completed Instructed patient on definition of cardiovascular disease. documented in this encounter [facility] for referral (narrative)* Outpatient Procedure (Routine) - Pending Review Specialty Diagnoses / Procedures Referred By Lyric toro Referred [facility] Diagnoses Severe persistent asthma without complication Procedures NITRIC OXIDE, EXHALED NITRIC OXIDE GAS DETERMINATION Darryl Willis MD [address] [place] [address] [facility] [place] [address] [place] [address] Referral ID Status Reason Start Date Expiration Date Visits Requested Visits Authorized [id number] Pending Review Auto-Generat ed Referral 05/20/2021 06/19/2022 1 1 * Outpatient Procedure (Routine) - Closed Specialty Diagnoses / Procedures Referred By Contac t Referred To [facility] Diagnoses Centrilobular emphysema (HCC) Procedures SPIROMETRY - BASELINE AND POST DILATOR BRNCDILAT RSPSE SPMTRY PRE&POST-BRNCDILAT Darryl Haq MD [address] [place] [address] [facility] [place] [address] [place] [address] Referral ID Status Reason Start Date Expiration Date V isits Requested Visits Authorized [id number] Closed Auto-Generate d Referral 05/20/2021 06/19/2022 1 1 [facility] for referral (narrative)* Diagnostic Procedure Only (Routine) - Closed Specialty Diagnoses / Procedures Referred By Contac t Referred To Contact XR IMAGING Diagnoses Encounter for pre-transplant evaluation for lung transplant Lung transplant candidate 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 Procedures DXA-AXIAL SKELETON WITH VFA DXA BONE DENSITY STUDY AXIAL SKELETON Domi Cordoba MD [address] [place] [address] Xr Imaging Referral ID Status Reason Start Date Expiration Date V isits Requested Visits Authorized [id number] Closed Auto-Generate d Referral 07/13/2021 05/13/2022 1 1 [facility] for referral (narrative)* Diagnostic Procedure Only (Routine) - Closed Specialty Diagnoses / Procedures Referred By Contac t Referred To Contact MOLECULAR & FUNCTIONAL IMAGING Diagnoses Encounter for pre-transplant evaluation for lung transplant Lung transplant candidate 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 Procedures NM GASTRIC EMPTYING SOLID GASTRIC EMPTYING STUDY Domi Cordoba MD [address] [place] [address] Molecular & Functional Imaging [address] [id number] Referral ID Status Reason Start Date Expiration Date V isits Requested Visits Authorized [id number] Closed Auto-Generate d Referral 07/13/2021 05/13/2022 1 1 [facility] for referral (narrative)* Outpatient Procedure (Routine) - Authorized Specialty Diagnoses / Procedures Referred By Lyric toro Referred To Contact [facility] Diagnoses Lung transplant candidate SOB (shortness of breath) care home current use of systemic steroids Procedures ECHO WITH AGITATED SALINE CONTRAST ECHO TRANSTHORAC R-T 2D W/WO M-MODE REC COMP Wilbert Umanzor MD [address] [place] [address] [facility] [place] [address] Referral ID Status Reason Start Date Expiration Date Visits Requested Visits Authorized [id number] Authorized Auto-Generat ed Referral 05/25/2022 03/03/2023 1 1 * Outpatient Procedure (Routine) - Authorized Specialty Diagnoses / Procedures Referred By Lyric toro Referred To Contact [facility] [place] Diagnoses Lung transplant candidate 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 Procedures ARTERIAL BLOOD GAS, ROOM AIR GASES BLOOD PH DIRECT VANESA XCPT PULSE OXIMITRY Wilbert Umanzor MD [address] [place] [address] [place] [address] Referral ID Status Reason Start Date Expiration Date Visits Requested Visits Authorized [id number] Authorized Auto-Generat ed Referral 05/25/2022 04/02/2023 1 1 * Outpatient Procedure (Routine) - Authorized Specialty Diagnoses / Procedures Referred By Lyric toro Referred [facility] Diagnoses Lung transplant candidate SOB (shortness of breath) care home current use of systemic steroids Procedures SIX MINUTE WALK CARDIOPULMONARY EXERCISE STRESS Wilbert Umanzor MD [address] [place] [address] [facility] [place] [id number] Referral ID Status Reason Start Date Expiration Date Visits Requested Visits Authorized [id number] Authorized Auto-Generat ed Referral 05/25/2022 04/02/2023 1 1 * Outpatient Procedure (Routine) - Authorized Specialty Diagnoses / Procedures Referred By Contac t Referred [facility] Diagnoses Lung transplant candidate SOB (shortness of breath) care home current use of systemic steroids Procedures SPIROMETRY BASELINE ONLY SPMTRY W/VC EXPIRATORY YAMEL W/WO MXML VOL VNTJ Wilbert Umanzor MD [address] [place] [address] [place] [address] Referral ID Status Reason Start Date Expiration Date Visits Requested Visits Authorized [id number] Authorized Auto-Generat ed Referral 05/25/2022 04/02/2023 1 1 [facility] for referral (narrative)* Outpatient Procedure (Routine) - Authorized Specialty Diagnoses / Procedures Referred By Contac t Referred [facility] Diagnoses 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) Procedures SPIROMETRY BASELINE ONLY SPMTRY W/VC EXPIRATORY YAMEL W/WO MXML VOL VNTJ Regina Decker APRN.CNP [address] [place] [address] [place] [address] Referral ID Status Reason Start Date Expiration Date Visits Requested Visits Authorized [id number] Authorized Auto-Generat ed Referral 08/11/2022 09/02/2023 1 1 [facility] for referral (narrative)* Outpatient Procedure (Routine) - Authorized Specialty Diagnoses / Procedures Referred By Contac t Referred To Contact [facility] Diagnoses Dyspepsia 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) Procedures PH INSERT OFF MEDS GASTROESOPHAG REFLX TEST W/CATH PH ELTRD PLCOH Wilbert Umanzor MD [address] [place] [address] [facility] Disease [address] [address] Referral ID Status Reason Start Date Expiration Date Visits Requested Visits Authorized [id number] Authorized Auto-Generat ed Referral 08/11/2022 08/12/2023 1 1 * Diagnostic Procedure Only (Routine) - Pending Review Specialty Diagnoses / Procedures Referred By Contac t Referred To Contact MOLECULAR & FUNCTIONAL IMAGING Diagnoses Dyspepsia 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) Procedures NM GASTRIC EMPTYING SOLID GASTRIC [place] [address] [place] [id number] Molecular & Functional Imaging [address] [place] [address] Referral ID Status Reason Start Date Expiration Date Visits Requested Visits Authorized [id number] Pending Review Auto-Generat ed Referral 08/11/2022 09/10/2023 1 1 * Outpatient Procedure (Routine) - Authorized Specialty Diagnoses / Procedures Referred By Contac t Referred To Contact [facility] Diagnoses Dyspepsia 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) Procedures MANOMETRY ESOPHAGEAL ESOPHAGEAL MOTILITY STUDY W/INTERP&[place] [address] [place] [address] [facility] [place] [address] [place] [address] Referral ID Status Reason Start Date Expiration Date Visits Requested Visits Authorized [id number] Authorized Auto-Generat ed Referral 08/11/2022 08/12/2023 1 1 * Outpatient Procedure (Routine) - Authorized Specialty Diagnoses / Procedures Referred By Contac t Referred To [facility] Diagnoses Dyspepsia 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) Procedures SPIROMETRY BASELINE ONLY SPMTRY W/VC EXPIRATORY YAMEL W/WO MXML VOL VNTJ Wilbert Umanzor MD [address] [place] [address] [facility] [place] [address] [place] [address] Referral ID Status Reason Start Date Expiration Date Visits Requested Visits Authorized [id number] Authorized Auto-Generat ed Referral 08/11/2022 09/10/2023 1 1 [facility] for referral (narrative)* Diagnostic Procedure Only (Routine) - Closed Specialty Diagnoses / Procedures Referred By Contac t Referred To Contact MOLECULAR & FUNCTIONAL IMAGING Diagnoses Dyspepsia Lung replaced by transplant ([facility]) Procedures NM GASTRIC EMPTYING SOLID GASTRIC EMPTYING STUDY Wilbert Umanzor MD [address] [place] [address] Molecular & Functional Imaging [address] [place] [address] Referral ID Status Reason Start Date Expiration Date V isits Requested Visits Authorized [id number] Closed Auto-Generate d Referral 08/11/2022 09/10/2023 1 1 [facility] for referral (narrative)* Outpatient Procedure (Routine) - Authorized Specialty Diagnoses / Procedures Referred By Contact Referred To Contact [facility] Diagnoses Lung transplant recipient ([facility]) Aftercare following organ transplant Human immunodeficiency virus (HIV) disease ([facility]) Encounter for monitoring tacrolimus therapy Essential hypertension Hyperlipidemia, unspecified hyperlipidemia type Gastroesophageal reflux disease without esophagitis Steroid-induced osteopenia Obesity, Class II, BMI 35-39.9 Methicillin resistant Staphylococcus aureus colonization Procedures SPIROMETRY BASELINE ONLY SPMTRY W/VC EXPIRATORY YAMEL W/WO MXML VOL VNTJ Osbaldo Magallanes MD [address] [place] [address] [facility] [place] [address] [place] [address] Referral ID Status Reason Start Date Expiration Date Visits Requested Visits Authorized [id number] Authorized Auto-Generat ed Referral 10/20/2022 11/03/2023 1 1 [facility] for referral (narrative)* Diagnostic Procedure Only (Routine) - Pending Review Specialty Diagnoses / Procedures Referred By Lyric toro Referred To Contact XR IMAGING Diagnoses Lung transplant recipient (HCC) Aftercare following organ transplant Encounter for monitoring tacrolimus therapy Essential hypertension Gastroesophageal reflux disease without esophagitis Pure hypertriglyceridemia 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 Procedures DXA-AXIAL SKELETON WITH VFA DXA BONE DENSITY STUDY AXIAL SKELETON Shay Florentino MD [address] [place] [address] Xr Imaging [place] [address] Referral ID Status Reason Start Date Expiration Date Visits Requested Visits Authorized [id number] Pending Review Auto-Generat ed Referral 3 11/20/2023 1 1 * Consult, Test, Treat (Routine) - Authorized Specialty Diagnoses / Procedures Referred By Lyric toro Referred To Contact Dermatology Diagnoses Lung transplant recipient (HCC) Aftercare following organ transplant Encounter for monitoring tacrolimus therapy Essential hypertension Gastroesophageal reflux disease without esophagitis Pure hypertriglyceridemia 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 Procedures CONSULT TO DERMATOLOGY OFFICE/OUTPATIENT NEW HIGH MDM 60-74 MINUTES Shay Florentino MD [address] [place] [address] Referral ID Status Reason Start Date Expiration Date Visits Requested Visits Authorized [id number] Authorized PCP Requested Referral 3 10/21/2023 1 1 * Outpatient Procedure (Routine) - Pending Review Specialty Diagnoses / Procedures Referred By Lyric toro Referred [facility] Diagnoses Lung transplant recipient (HCC) Aftercare following organ transplant Encounter for monitoring tacrolimus therapy Essential hypertension Gastroesophageal reflux disease without esophagitis Pure hypertriglyceridemia Encounter for screening for osteoporosis care home current use of systemic steroids Procedures SPIROMETRY BASELINE ONLY SPMTRY W/VC EXPIRATORY YAMEL W/WO MXML VOL VNTJ Shay Florentino MD [address] [place] [phone] [facility] [place] [address] [place] [address] Referral ID Status Reason Start Date Expiration Date Visits Requested Visits Authorized [id number] Pending Review Auto-Generat ed Referral 11/20/2023 1 1 [facility] for referral (narrative)* Diagnostic Procedure Only (Routine) - Closed Specialty Diagnoses / Procedures [facility]erred To Contact XR [facility]AG[facility] Diagnoses Achalasia Procedures XR ESOPHAGRAM RADIOLOGIC EXAM ESOPHAGUS SINGLE CONTRAST STUDY Jose Hackett MD [address] [place] [address] Xr Imaging [place] [address] Referral ID Status Reason Start Date Expiration Date V isits Requested Visits Authorized [id number] Closed Auto-Generate d Referral 10/04/2022 11/03/2023 1 1 [facility] for referral (narrative)* Outpatient Procedure (Routine) - Closed Specialty Diagnoses / Procedures [facility] Diagnoses Achalasia Procedures EGD - THERAPEUTIC, EUS, OR TUBE INTERVENTIONS ESOPHAGOGASTRODUODENOSC OPY SUBMUCOSAL INJECTION BOTULINUM TOXIN A PER 1 UNIT Jose Hackett MD [address] [place] [address] [facility] [place] [address] [place] [address] Referral ID Status Reason Start Date Expiration Date V isits Requested Visits Authorized [id number] Closed Auto-Generate d Referral 10/04/2022 10/05/2023 1 1 T [facility] for referral (narrative)* Outpatient Procedure (Routine) - Authorized Specialty Diagnoses / Procedures Referred By Contac t Referred To [facility] Diagnoses 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) Procedures SPIROMETRY BASELINE ONLY SPMTRY W/VC EXPIRATORY YAMEL W/WO MXML VOL Osbaldo Mike MD [address] [place] [address] [facility] [place] [address] [place] [address] Referral ID Status Reason Start Date Expiration Date Visits Requested Visits Authorized [id number] Authorized Auto-Generat ed Referral 12/29/2023 1 1 T [facility] for referral (narrative)* Diagnostic Procedure Only (Routine) - Closed Specialty Diagnoses / Procedures Referred By Lyric toro Referred To Contact XR IMAGING Diagnoses Lung transplant recipient (HCC) Aftercare following organ transplant Encounter for monitoring tacrolimus therapy Essential hypertension Gastroesophageal reflux disease without esophagitis Pure hypertriglyceridemia 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 Procedures DXA-AXIAL SKELETON WITH VFA DXA BONE DENSITY STUDY AXIAL SKELETON Shay Florentino MD [address] [place] [address] Xr Imaging [id number] Referral ID Status Reason Start Date Expiration Date V isits Requested Visits Authorized [id number] Closed Auto-Generate d Referral 12/01/2022 11/20/2023 1 1 [facility] for referral (narrative)* Outpatient Procedure (Routine) - Pending Review Specialty Diagnoses / Procedures Referred By Lyric toro Referred [facility] Diagnoses Aftercare following organ transplant S/P lung transplant (HCC) Encounter for monitoring tacrolimus therapy Essential hypertension Hyperlipidemia, unspecified hyperlipidemia type Gastroesophageal reflux disease without esophagitis Steroid-induced osteopenia Procedures SPIROMETRY BASELINE ONLY SPMTRY W/VC EXPIRATORY YAMEL W/WO MXML VOL Osbaldo Mike MD [address] [place] [address] [facility] [place] [address] [place] [address] Referral ID Status Reason Start Date Expiration Date Visits Requested Visits Authorized [id number] Pending Review Auto-Generat ed Referral 07/21/2023 05/18/2024 1 1 [facility] for referral (narrative)* Diagnostic Procedure Only (Routine) - New Request Specialty Diagnoses / Procedures Referred By Teeteeac t Referred To Contact XR IMAGING Diagnoses Aftercare following organ transplant Procedures DXA - VFA ASSESS ONLY VERTEBRAL FRACTURE ASSESSMENT VIA DXA Osbaldo Magallanes MD [address] [place] [place] [phone] Xr Imaging [place] [address] Referral ID Status Reason Start Date Expiration Date Visits Requested Visits Authorized [id number] New Request Auto-Generat ed Referral 12/09/2024 1 1 * Outpatient Procedure (Routine) - New Request Specialty Diagnoses / Procedures Referred By Teeteeac t Referred To [facility] Diagnoses Aftercare following organ transplant S/P lung transplant (HCC) Encounter for monitoring tacrolimus therapy Essential hypertension Mixed hyperlipidemia Steroid-induced osteopenia Gastroesophageal reflux disease without esophagitis Procedures SPIROMETRY BASELINE ONLY SPMTRY W/VC EXPIRATORY YAMEL W/WO MXML VOL VNTJ Osbaldo Magallanes MD [address] [place] [address] [facility] [place] [address] [place], [place] [id number] Referral ID Status Reason Start Date Expiration Date Visits Requested Visits Authorized [id number] New Request Auto-Generat ed Referral 4 11/30/2024 1 1 [facility] for referral (narrative)* Outpatient Procedure (Urgent) - Authorized Specialty Diagnoses / Procedures Referred By Contac t Referred To Contact [facility] Diagnoses Preoperative examination Procedures ECG COMPLETE ECG ROUTINE ECG W/LEAST 12 LDS W/I&R Chaya Mabry, ANA LAURA.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 MANAGER [address] [phone] [place] [address] [facility] [place] [address] [place] [address] Referral ID Status Reason Start Date Expiration Date Visits Requested Visits Authorized [id number] Authorized Auto-Generat ed Referral 11/16/2024 1 1 [facility] for referral (narrative)* Diagnostic Procedure Only (Routine) - New Request Specialty Diagnoses / Procedures Referred By Contac t Referred To Contact XR IMAGING Diagnoses Aftercare following organ transplant Steroid-induced osteopenia Current chronic use of systemic steroids Procedures DXA-AXIAL SKELETON WITH VFA DXA BONE DENSITY STUDY AXIAL SKELETON Osbaldo Magallanes MD [address] [place] [address] Xr Imaging [id number] Referral ID Status Reason Start Date Expiration Date Visits Requested Visits Authorized [id number] New Request Auto-Generat ed Referral 01/10/2024 02/08/2025 1 1 [facility] for referral (narrative)* Outpatient Procedure (Routine) - New Request Specialty Diagnoses / Procedures Referred By Contac t Referred To [facility] Diagnoses Aftercare following organ transplant S/P lung transplant (HCC) Encounter for monitoring tacrolimus therapy Essential hypertension Mixed hyperlipidemia Steroid-induced osteopenia Gastroesophageal reflux disease without esophagitis Obesity, Class II, BMI 35-39.9 Procedures SPIROMETRY BASELINE ONLY SPMTRY W/VC EXPIRATORY YAMEL W/WO MXML VOL VNTJ Osbaldo Magallanes MD [address] [place] [address] [facility] [place] [address] [place] [address] Referral ID Status Reason Start Date Expiration Date Visits Requested Visits Authorized [id number] New Request Auto-Generat ed Referral 04/24/2024 02/10/2025 1 1 [facility] for referral (narrative)* Diagnostic Procedure Only (Routine) - Closed Specialty Diagnoses / Procedures Referred By Contac t Referred To Contact XR IMAGING Diagnoses Aftercare following organ transplant Steroid-induced osteopenia Current chronic use of systemic steroids Procedures DXA-AXIAL SKELETON WITH VFA DXA BONE DENSITY STUDY AXIAL SKELETON Osbaldo Magallanes MD [address] [place] [phone] Xr Imaging [place] [address] Referral ID Status Reason Start Date Expiration Date V isits Requested Visits Authorized [id number] Closed Auto-Generate d Referral 01/10/2024 02/08/2025 1 1 [facility] for referral (narrative)No reason for referral [facility] Narrative* Outpatient Procedure (Routine) - Closed Specialty Diagnoses / Procedures Referred By Teeteeac t Referred To Contact [facility] Diagnoses Lung transplant candidate 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 Procedures ECHO WITH AGITATED SALINE CONTRAST ECHO TRANSTHORAC R-T 2D W/WO M-MODE REC COMP Wilbert Umanzor MD [address] [place] [address] [facility] [place] [address] Referral ID Status Reason Start Date Expiration Date V isits Requested Visits Authorized [id number] Closed Auto-Generate d Referral 05/25/2022 03/03/2023 1 1 [facility] for visit Narrative* Outpatient Procedure (Routine) - Closed Specialty Diagnoses / Procedures Referred By Lyric t Referred To Contact [facility] Diagnoses Achalasia Procedures EGD - THERAPEUTIC, EUS, OR TUBE INTERVENTIONS ESOPHAGOGASTRODUODENOSC OPY SUBMUCOSAL INJECTION BOTULINUM TOXIN A PER 1 UNIT Jose Hackett MD [address] [place] [address] [facility] [place] [address] Referral ID Status Reason Start Date Expiration Date V isits Requested Visits Authorized [id number] Closed Auto-Generate d Referral 10/04/2022 10/05/2023 1 1 [facility] for visit Narrative* Diagnostic Procedure Only (Routine) - Closed Specialty Diagnoses / Procedures Referred By Lyric toro Referred To Contact XR IMAGING Diagnoses Lung transplant recipient (HCC) Aftercare following organ transplant Encounter for monitoring tacrolimus therapy Essential hypertension Gastroesophageal reflux disease without esophagitis Pure hypertriglyceridemia Encounter for screening for osteoporosis care home current use of systemic steroids Procedures DXA-AXIAL SKELETON WITH VFA DXA BONE DENSITY STUDY AXIAL SKELETON Shay Florentino MD [address] [place] [phone] Xr Imaging [place] [address] Referral ID Status Reason Start Date Expiration Date V isits Requested Visits Authorized [id number] Closed Auto-Generate d Referral 12/01/2022 11/20/2023 1 1 [facility] for visit Narrative* Outpatient Procedure (Routine) - Closed Specialty Diagnoses / Procedures Referred By Contac t Referred To Contact [facility] Diagnoses Lung replaced by transplant ([facility]) Procedures SPIROMETRY BASELINE ONLY SPMTRY W/VC EXPIRATORY YAMEL W/WO MXML VOL VNTJ Osbaldo Magallanes MD [address] [place] [address] [facility] [place] [address] [place] [address] Referral ID Status Reason Start Date Expiration Date V isits Requested Visits Authorized [id number] Closed Auto-Generate d Referral 01/18/2023 12/29/2023 1 1 [facility] for visit Narrative* Diagnostic Procedure Only (Routine) - Closed Specialty Diagnoses / Procedures Referred By Contac t Referred To Contact XR IMAGING Diagnoses Acute pain of right knee Procedures XR KNEE GENERAL 4V AP BOTH/PA BOTH/LAT/MERC RIGHT RADIOLOGIC EXAM KNEE COMPLETE 4/MORE VIEWS Keshav Phillips, ANA LAURA.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 MANAGER [address] [place] [address] Xr Imaging [place] [address] Referral ID Status Reason Start Date Expiration Date V isits Requested Visits Authorized [id number] Closed Auto-Generate d Referral 01/03/2024 02/01/2025 1 1 [facility] for visit Narrative* Diagnostic Procedure Only (Routine) - Closed Specialty Diagnoses / Procedures Referred By Contac t Referred To Contact XR IMAGING Diagnoses Aftercare following organ transplant Steroid-induced osteopenia Current chronic use of systemic steroids Procedures DXA-AXIAL SKELETON WITH VFA DXA BONE DENSITY STUDY AXIAL SKELETON Osbaldo Magallanes MD [address] [place] [address] Xr Imaging [id number] Referral ID Status Reason Start Date Expiration Date V isits Requested Visits Authorized [id number] Closed Auto-Generate d Referral 01/10/2024 02/08/2025 1 1 [facility] for visit Narrative* Diagnostic Procedure Only (Routine) - Closed Specialty Diagnoses / Procedures Referred By Contac t Referred To Contact XR IMAGING Diagnoses Primary osteoarthritis of right knee Procedures XR KNEE GENERAL 4V AP BOTH/PA BOTH/LAT/MERC RIGHT RADIOLOGIC EXAM KNEE COMPLETE 4/MORE VIEWS Moon Tomlinson, DO [address] [place] [address] Phone: tel: fax: XR IMAGING [id number] Referral ID Status Reason Start Date Expiration Date V isits Requested Visits Authorized [id number] Closed Auto-Generate d Referral 09/17/2024 10/17/2025 1 1 [facility] for visit Narrative* Endoscopy (Routine) - Authorized Specialty Diagnoses / Procedures Referred By Lyric t Referred To Contact Gastroenterology Diagnoses Colon cancer screening Procedures Colonoscopy Screening; Average Risk Patient WI COLONOSCOPY FLX DX W/COLLJ SPEC WHEN PFRMD WI COLON CA SCRN NOT HI RSK IND WI COLORECTAL SCRN; HI RISK IND WI COLONOSCOPY W/BIOPSY SINGLE/MULTIPLE WI COLSC FLX W/RMVL OF TUMOR POLYP LESION SNARE TQ WI COLSC FLX W/REMOVAL LESION BY HOT BX FORCEPS Consuelo Leahy, DO [address] [facility], [facility] [address] [place] [address] Phone: tel: fax: Referral ID Status Reason Start Date Expiration Date V isits Requested Visits Authorized [id number] Authorized 02/11/2023 02/11/2024 1 1 [facility] Work Phone: Summary Purpose Family History No Family History Records Found Relationship Condition Age at Onset Recorded Date/T salas mother Chronic obstructive pulmonary disease Unk nown father Cardiac disease Unknown sister Malignant neoplasm of breast Unknown brother Chronic obstructive pulmonary disease Unk nown Advance Directives No Advanced Directives Records FoundDocuments on File Type Date 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 Advance Directive(s) 07/23/2021 1:20 PM Date Activated Date Inactivated Comments 08/08/2022 2:41 PM 08/13/2022 8:40 AM Documents on File Type Date Recorded 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 Advance Directives and Livin g Will 12/18/2018 8:47 AM Documents on File Type Date Recorded 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 Advance Directives and Livin g Will 12/18/2018 8:47 AM Documents on File Type Date Recorded 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 Advance Directives and Livin g Will 04/12/2019 10:33 AM Documents on File Type Date Recorded 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 Advance Directives and Livin g Will 04/12/2019 10:33 AM Documents on File Type Date Recorded 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 Advance Directives and Living Will Documents on File Type Date Recorded 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 Advance Directive(s) 07/23/2021 1:20 PM Latest Code Status on File Code Status Date Activated Date Inactivated Comments Full Code 08/08/2022 2:41 PM Latest Code Status on File Code Status Date Activated Date Inactivated Comments Full Code 08/08/2022 2:41 PM Latest Code Status on File Code Status Date Activated Date Inactivated Comments Full Code 08/08/2022 2:41 PM 08/13/2022 8:40 AM Latest Code Status on File Code Status Date Activated Date Inactivated Comments Full Code 08/08/2022 2:41 PM 08/13/2022 8:40 AM Date Activated Date Inactivated Comments 08/08/2022 2:41 PM 08/13/2022 8:40 AM Latest Code Status on File Code Status Date Activated Date Inactivated Comments Full Code 04/28/2023 6:21 AM Question Answer Comments Plan of Care: Code Status Discussion Not Compl eted Decision Maker: Provider Rationale: Patient condition do es not warrant discussion Date Activated Date Inactivated Comments 04/28/2023 6:21 AM Question Answer Comments Plan of Care: Code Status Discussion Not Compl eted Decision Maker: Provider Rationale: Patient condition does not warra nt discussion Date Activated Date Inactivated Comments 04/28/2023 6:21 AM Question Answer Comments Plan of Care: Code Status Discussion Not Compl eted Decision Maker: Provider Rationale: Patient condition does not warra nt discussion Assessments Diagnosis Chronic obstructive pulmonar y disease, unspecified COPD type (HCC) - Primary AAT (maqjv-6-rjxcpnqpeit) de ficiency (HCC) Xepfw-0-odnzagcacrn deficiency Bronchiectasis without compl ication (HCC) Diagnosis AAT (xkizm-7-pipuscwalqv) deficiency (HCC)- Primary Tswnu-8-inliudsypzc deficiency Chronic obstructive pulmonary disease, unspecified COPD type (HCC) Bronchiectasis without complication (HCC) Diagnosis Chronic obstructive pulmonary disease, unspecified COPD type (HCC) Screening for malignant neoplasm of respiratory organ Special screening for malignant neoplasm of the respiratory organs Personal history of tobacco use, presenting hazards to health Diagnosis Abnormal chest CT Nonspecific (abnormal) findings on radiological and other examination of other intrathoracic organs Chronic obstructive pulmonary disease, unspecified COPD type (HCC) AAT (bwtna-2-vajhublfhqc) deficiency (HCC) Ruuah-4-rozaalgxgph deficiency Diagnosis COPD exacerbation (HCC) Obstructive chronic bronchitis with exacerbation AAT (xqija-8-xnfujbdjlln) deficiency (HCC) Hptqt-9-jdntarvtpdo deficiency Anxiety Anxiety state, unspecified Diagnosis Abnormal chest CT Nonspecific (abnormal) findings on radiological and other examination of other intrathoracic organs Diagnosis AAT (zbhdv-0-jajkemkxkvv) deficiency (HCC) Hwhlp-6-knsboeldyjc deficiency Chronic obstructive pulmonary disease, unspecified COPD type (HCC) Obesity, unspecified classification, unspecified obesity type, unspecified whether serious comorbidity present Diagnosis Chronic obstructive pulmonary disease, unspecified COPD type (HCC)- Primary AAT (arkck-1-vtanxvreaja) deficiency (HCC) Ucpyd-6-nspsnmxfakq deficiency Diagnosis Chronic obstructive pulmonary disease, unspecified COPD type (HCC)- Primary AAT (atlgo-3-ejqoxyqcagb) deficiency (HCC) Fizzm-2-hjxwqtghxch deficiency Special screening for malignant neoplasm of the respiratory organs Personal history of tobacco use, presenting hazards to health History of Present Illness * Shukri Juárez MD - 04/19/2018 10:42 AM EDT HPI: Belgica Angelo is a 62 y.o. male 100 pack year smoker having quit in 2010 with severe COPD and alpha-1 antitrypsin deficiency. He has a history of lung nodules as well as bronchiectasis. He spent the winter in [place] and was able to receive his augmentation therapy while on vacation. Today he presents for follow-up. His low-dose chest CT shows stable 10 mm nodule in his right upper lobe and no other new findings. He has some bronchial wall thickening but no severe bronchiectasis by thisCT. I had changed his therapy to Trelegy Ellipta but his insurance would not cover this medication.He is only been using Spiriva and nebulized treatments. He has been doing his chest vest once a day. He has not had any recent upper respiratory infections nor has he required hospitalization. Accession No: [id number] Performed: Dec 19 2017 2:33PM Examination: CT CHEST LOW DOSE LUNG CA SCREEN PROCEDURE: LOW-DOSE SCREENING CT OF THE LUNGS WITHOUT CONTRAST, 12/19/2017 INDICATION: Asymptomatic patient meeting NCCN high-risk criteria for lung screening. Baseline examination. COMPARISON: CT chest dated 01/04/2017 FINDINGS: LUNG SCREENING SPECIFIC (LUNG-RADS): Nodules > 6 mm (excluding nodules containing fat or benign pattern of calcification): Stable 9 x10 mm solid nodule with lobular margins in the right upper lobe (series 3, image 53). Other nodules: Stable 3 x 2 mm solid subpleural nodule in the right middle lobe (series 3, image 120). Several calcified right perihilar nodules are stable. No new or enlarging lung nodules. OTHER FINDINGS: Central airways are patent. There is central bronchial wall thickening, unchanged. No parenchymal consolidation. There is mild scattered atelectasis or scarring in the bilateral lungs. There is mild unchanged biapical pleural-parenchymal scarring. No pleural effusion or pneumothorax.Standard three vessel aortic arch. Thoracic aorta is normal in caliber. There are mild aortic atherosclerotic calcifications. The main pulmonary artery is upper limits normal in caliber. Heart is normal in size. No pericardial effusion. There are coronary artery calcifications. Thoracic inlet is unremarkable. Visualized thyroid gland is unremarkable. Esophagus is normal in appearance. There are calcified mediastinal and right hilar lymph nodes. No pathologically enlarged mediastinal, hilar, or axillary lymph nodes. No acute or aggressive osseous lesions. There are mild multilevel degenerative changes in the thoracic spine. Limited noncontrast images of the upper abdomen demonstrates splenic granulomas. There is hepatic steatosis. The visualized adrenal glands are normal in appearance. IMPRESSION: 1. Stable 9 x 10 mm solid nodule in the right upper lobe. 2. Coronary artery disease. 3. Sequelae of prior granulomatous infection in the chest and abdomen. 4. Hepatic steatosis. OVERALL ASSESSMENT: Lung-RADS 2 - Category 3 or 4 nodules unchanged for at least 3 months. MANAGEMENT: Continue annual screening with low dose CT in 12 months.X200B Current Outpatient Medications Medication Sig Dispense Refill albuterol (PROVENTIL) 2.5 mg /3 mL (0.083 %) nebulizer solution Take 2.5 mg by nebulization every 6(six) hours as needed for wheezing. albuterol 90 mcg/actuation inhaler Inhale 2 puffs every 6 (six) hours as needed for wheezing. alpha-1 proteinase inhib.,hum, (GLASSIA) 1 gram/50 mL (2 %) Soln Infuse 60 mg/kg into a venous catheter every 7 days. fluticasone-vilanterol 100-25 mcg/dose DsDv Inhale daily . gabapentin (NEURONTIN) 300 MG capsule Take 300 mg by mouth every 8 (eight) hours. montelukast (SINGULAIR) 10 mg tablet tiotropium bromide (SPIRIVA RESPIMAT) 2.5 mcg/actuation Mist Inhale 2 sprays daily . 12 g 3 traMADol (ULTRAM) 50 mg tablet Take 50 mg by mouth every 4 (four) hours as needed for pain. No current facility-administered medications for this visit. PMH, surgical history, family history, social history: Reviewed, unchanged except where noted. Review of Systems - History obtained from the patient General ROS: negative for - chills, fatigue or fever ENT ROS: negative for - nasal congestion or nasal discharge Respiratory ROS: positive for - cough and shortness of breath Cardiovascular ROS: negative for - chest pain or edema Gastrointestinal ROS: no abdominal pain, change in bowel habits, or black or bloody stools Musculoskeletal ROS: negative for - joint pain, joint swelling, muscle pain or muscular weakness BP 120/62 Pulse 74 Wt 126.1 kg (278 lb) SpO2 92% RR 18 General appearance: alert, appears stated age, cooperative, no distress and obese Head: Normocephalic, without obvious abnormality Eyes: negative findings: lids and lashes normal, conjunctivae and sclerae normal and corneas clear Throat: poor dentition, no thrush Neck: no adenopathy, no JVD, supple, symmetrical, trachea midline and thyroid not enlarged, symmetric, no tenderness/mass/nodules Lungs: faint expiratory wheezes Heart: regular rate and rhythm, S1, S2 normal, no murmur, click, rub or gallop Extremities: extremities normal, atraumatic, no cyanosis or edema or clubbing ASSESMENT/PLAN: Lung nodule Alpha 1 antitrypsin deficiency COPD He would be a candidate for possible lung transplantation but he needs to lose a significant amountof weight. His BMI needs to be 30 or less. He needs to be on triple inhaler therapy. I instructed him to restart his Breo Ellipta and continue his Spiriva. He will continue on his augmentation therapy for his alpha-1 antitrypsin deficiency. His lung nodule is stable and he will be due for a surveillance CT in 1 year. in this encounter* Shukri Juárez MD - 01/22/2019 11:15 AM EST CC: follow-up COPD/chest CT HPI: Belgica Angelo is a 63 y.o. male former [id number] smoker with COPD, alpha-1 antitrypsin deficiency, recurrent bronchitis, oxygen dependence and obesity. He presents today for follow-up after his low-dose chest CT for cancer screening. Chest CT shows stable right upper lobe nodule but he has a new left lower lobe groundglass nodular density and more solid density. He has been ill with bronchitis. He has had cough productive of yellow sputum. He has associated increased shortness of breath and wheezing. He has not had any fevers or chills. He was started on Levaquin for his bronchitis symptoms which occurred concomitantly with his abnormal CT of his chest. He has required oral prednisone as well. He states he has been feeling slightly better. His cough is not as severe. His coughdoes not interfere with his sleep. He still has wheezing and chest congestion as well as occasionalsputum production. He is on augmentation therapy for his alpha-1 antitrypsin deficiency. [place] He has been able to lose weight, he states approximately 30 pounds but his EMR only shows about 5 pounds. EXAMINATION: CT CHEST LOW DOSE LUNG SCREENING 12/18/2018 HISTORY: ORDERING SYSTEM PROVIDED HISTORY: cancer screening, former smoker, ORDERING SYSTEM PROVIDED DIAGNOSIS CODES: J44.9 Chronic obstructive pulmonary disease, unspecified COPD type (HCC) Z12.2 Screening for malignant neoplasm of respiratory organ Z87.891 Personal history of tobacco use, presenting hazards to health COMPARISON: December 19, 2017. FINDINGS: There is no enlargement of the heart, or great vessels. There are a few scattered coronary artery, as well as aortic arch atherosclerotic calcifications. Several calcified granulomatous scars are seen in the right hilar region, as well as some of the mediastinal lymph nodes. There is no enlarged lymph node or other mass identified. Esophagus is normal. Included upper abdominal structures, chest wall structures all appear to be normal. Lung parenchymal windows again show a slightly lobulated noncalcified 10 x 9 mm pulmonary nodule inthe right upper lobe. This has not changed appearance since prior studies that I can directly visualized dating to 2016. At that time, there was reference made of stability compared to previous studydating to 2014. There is a new ill-defined solid-appearing nodular density in the left posteromedial costophrenic sulcus measuring up to 24 mm, and a superiorly adjacent 21 mm ground-glass nodule seen in the left base. Additional note is made of diffuse generalized thickening of the bronchial schmid, no obscured bronchial lumina identified. Bony structures of the spinal column and chest wall appear to be intact. IMPRESSION: 1. Stable 10 mm pulmonary nodule right upper lobe, noted to be present on studies dating to 2014 without substantial change. 2. New nodular foci present in the left base on current study include a posteromedial costophrenic sulcus 24 mm oval solid nodular density, and ground- glass nodular density measuring up to 21 mm. Short interval follow-up repeat CT in 3 months should be considered to confirm resolution of these findings, which are likely inflammatory. 3. Diffuse underlying chronic bronchitis changes. Minimal coronary artery and aortic atherosclerotic calcifications noted. Lung-RADs 4B Findings: Solid nodule(s): Greater than/equal to 15 mm OR a growing solid greater than/equal to 8 mm OR new part solid nodule(s) greater than/equal to 8 mm OR with a new or growing greater than/equalto 4 mm solid component. Management: Chest CT with or without contrast prior to a specialist consult, PET/CT prior to a specialist consult and/or tissue sampling depending on the *probability of malignancy or co-morbidities.PET/CT may be used when there is a greater than/equal to 8 mm solid component prior to specialist consult. I independently reviewed images which show stable nodule and new lower lobe density. Patient was started on Levaquin. Current Outpatient Medications Medication Sig Dispense Refill albuterol (PROVENTIL) 2.5 mg /3 mL (0.083 %) nebulizer solution Take 2.5 mg by nebulization every 6(six) hours as needed for wheezing. albuterol 90 mcg/actuation inhaler Inhale 2 puffs every 6 (six) hours as needed for wheezing. alpha-1 proteinase inhib.,hum, (GLASSIA) 1 gram/50 mL (2 %) Soln Infuse 60 mg/kg into a venous catheter every 7 days . 1 each 12 amoxicillin (AMOXIL) 500 MG capsule 4 tablets two hours prior to procedure . 4 capsule 0 fluticasone-vilanterol 100-25 mcg/dose DsDv Inhale daily . gabapentin (NEURONTIN) 300 MG capsule Take 300 mg by mouth every 8 (eight) hours. montelukast (SINGULAIR) 10 mg tablet Take 1 (one) tablet (10 mg total) by mouth daily . 30 tablet 11 predniSONE (DELTASONE) 10 MG tablet TAKE THREE TABLETS BY MOUTH DAILY FOR 5 DAYS , TAKE TWO TABLETSBY MOUTH DAILY FOR 5 DAYS , TAKE ONE TABLET BY MOUTH DAILY FOR 5 DAYS 30 tablet 0 tiotropium bromide (SPIRIVA RESPIMAT) 2.5 mcg/actuation Mist Inhale 2 sprays daily . 12 g 3 traMADol (ULTRAM) 50 mg tablet Take 50 mg by mouth every 4 (four) hours as needed for pain. No current facility-administered medications for this visit. PMH, surgical history, family history, social history: Reviewed, unchanged except where noted. Review of Systems - History obtained from the patient General ROS: negative for - chills, fever or weight gain ENT ROS: negative for - nasal congestion, nasal discharge, sore throat or vocal changes Respiratory ROS: positive for - cough, shortness of breath and sputum changes Cardiovascular ROS: negative for - chest pain or irregular heartbeat Gastrointestinal ROS: no abdominal pain, change in bowel habits, or black or bloody stools Dermatological ROS: negative BP 114/74 Pulse 74 Resp 18 Wt 112.5 kg (248 lb) SpO2 93% Comment: 2L General appearance: alert, appears stated age, cooperative, no distress and moderately obese Head: Normocephalic, without obvious abnormality Eyes: negative findings: lids and lashes normal, conjunctivae and sclerae normal and corneas clear Throat: upper plate, no thrush Neck: no adenopathy, no carotid bruit, no JVD and thyroid not enlarged, symmetric, no tenderness/mass/nodules Back: symmetric, no curvature. ROM normal. No CVA tenderness. Lungs: normal percussion bilaterally and diminished breath sounds, bilateral rhonchi, not labored Heart: regular rate and rhythm, S1, S2 normal, no murmur, click, rub or gallop Extremities: extremities normal, atraumatic, no cyanosis or edema Skin: Skin color, texture, turgor normal. No rashes or lesions Lymph nodes: no cervical or supraclavicular nodes Neurologic: Grossly normal, oriented ASSESMENT/PLAN: Abnormal chest CT/new infiltrate/nodule COPD Alpha 1 antitrypsin deficiency Pneumonia vs. bronchitis Due to his persistent bronchitis symptoms, I gave him doxycycline for 3 weeks and more prednisone. He will continue on his triple inhaler therapy for his COPD. He will continue on his infusions for his alpha-1 antitrypsin deficiency. I have already set him up to receive his injections [facility] during his winter hiatus. He will need a follow-up CT of his chest in 3 months which will be about thetime when he returns to [place]. documented in this encounter* Shukri Juárez MD - 02/27/2019 2:00 PM EST CC: SOB not feeling well HPI: Belgica Angelo is a 63 y.o. male former [id number] smoker with COPD, chronic respiratory failure requiring oxygen, alpha-1 antitrypsin deficiency, recurrent bronchitis, allergies and abnormal chest CT who presents with persistent bronchitis symptoms, shortness of breath and new anxiety with panic attacks. He had a recent low-dose chest CT for cancer screening in January which showed a new left lower lobe groundglass infiltrate and 2 cm nodular infiltrate. At that time he had bronchitis symptoms with increased cough productive of yellow sputum, shortness of breath and wheezing. I started him on Levaquin and prednisone. He is scheduled to have a short interim follow-up chest CT in April at the 3-month trav. He typically george in [place]. He left for [place] in February. He states he had significant problems with shortness of breath not responsive to scheduled nebulized albuterol treatments. His worsening COPD symptoms were likely due to allergies. Apparently it was unusuallywarm in [place] and the states that the pollen counts were very high. In fact, there vehicle was covered in yellow dust. He had ran out of his [employer] prescription and has been off medication for over 3 weeks. His shortness of breath was so severe that it triggered panic attacks. He felt as if he was smothering which then worsened his shortness of breath. He was seen in a local hospital where he states they joseph multiple vials of blood, obtained a chest CT. He was told that he did not have pneumonia although his CT was not normal and he did not have influenza. He was not treated with antibiotics or prednisone. He had no change in his baseline regimen. He decided to return to [place]. Hecalled the office prescribed doxycycline and prednisone and asked him to come in for an evaluation.Today he is still short of breath, coughing up thick yellow phlegm and has been wheezing he has nothad any fevers, chills or chest pain. He is due for his alpha-1 infusion tomorrow. He was also asking about possible lung transplantation and has been rather diligent about weight loss since his BMI n eeds to be 30 or less to be considered for lung transplantation. Reviewed records from hospital in [place]. Had chest CT, Lactate and blood cultures but records do not give any results. I will request his records and a disc copy of his chest CT. Current Outpatient Medications Medication Sig Dispense Refill albuterol (PROVENTIL) 2.5 mg /3 mL (0.083 %) nebulizer solution Take 2.5 mg by nebulization every 6(six) hours as needed for wheezing. albuterol 90 mcg/actuation inhaler Inhale 2 puffs every 6 (six) hours as needed for wheezing. alpha-1 proteinase inhib.,hum, (GLASSIA) 1 gram/50 mL (2 %) Soln Infuse 60 mg/kg into a venous catheter every 7 days . 1 each 12 amoxicillin (AMOXIL) 500 MG capsule 4 tablets two hours prior to procedure . 4 capsule 0 doxycycline hyclate (VIBRAMYCIN) 100 MG capsule TAKE 1 (ONE) CAPSULE (100 MG TOTAL) BY MOUTH 2 (TWO) TIMES A DAY FOR 21 DAYS . 42 capsule 2 fluticasone-vilanterol 100-25 mcg/dose DsDv Inhale daily . gabapentin (NEURONTIN) 300 MG capsule Take 300 mg by mouth every 8 (eight) hours. montelukast (SINGULAIR) 10 mg tablet Take 1 (one) tablet (10 mg total) by mouth daily . 90 tablet 3 predniSONE (DELTASONE) 10 MG tablet TAKE THREE TABLETS BY MOUTH DAILY FOR 5 DAYS , TAKE TWO TABLETSBY MOUTH DAILY FOR 5 DAYS , TAKE ONE TABLET BY MOUTH DAILY FOR 5 DAYS 30 tablet 0 tiotropium bromide (SPIRIVA RESPIMAT) 2.5 mcg/actuation Mist Inhale 2 sprays daily . 12 g 3 traMADol (ULTRAM) 50 mg tablet Take 50 mg by mouth every 4 (four) hours as needed for pain. ALPRAZolam (XANAX) 0.25 MG tablet Take one twice daily as needed for anxiety . 60 tablet 0 No current facility-administered medications for this visit. PMH, surgical history, family history, social history: Reviewed, unchanged except where noted. Review of Systems - History obtained from the patient General ROS: positive for - fatigue negative for - chills, fever or weight gain Psychological ROS: positive for - anxiety and panic attacks ENT ROS: negative for - nasal congestion, nasal discharge, sinus pain or sore throat Respiratory ROS: positive for - cough, shortness of breath, sputum changes and wheezing negative for - hemoptysis or pleuritic pain Cardiovascular ROS: negative for - chest pain, edema or palpitations Musculoskeletal ROS: negative for - joint pain or muscle pain Neurological ROS: no TIA or stroke symptoms Dermatological ROS: negative BP 116/60 Pulse 93 Resp (!) 20 Wt 107 kg (236 lb) SpO2 93% Comment: 3L General appearance: alert, appears stated age, cooperative, moderately obese and anxious Head: Normocephalic, without obvious abnormality Eyes: negative findings: lids and lashes normal, conjunctivae and sclerae normal and corneas clear Throat: upper plate, no thrush or lesions Neck: no adenopathy, no JVD, supple, symmetrical, trachea midline and thyroid not enlarged, symmetric, no tenderness/mass/nodules Lungs: hyperresonant to percussion, wheezes on right, no accessory muscle usage Chest wall: no tenderness, normal configuration Heart: regular rate and rhythm, S1, S2 normal, no murmur, click, rub or gallop Extremities: extremities normal, atraumatic, no cyanosis or edema Skin: Skin color, texture, turgor normal. No rashes or lesions Lymph nodes: no cervical or supraclavicular nodes Neurologic: Grossly normal, oriented ASSESMENT/PLAN: COPD exacerbation Alpha 1 anti-trypsin deficiency Anxiety He will complete his course of antibiotics but will require a longer course of oral prednisone. He will continue on his Trelegy Ellipta as well as scheduled nebulized treatments. I need to review hischest CT from [place] as well as his records. I restarted his Singulair. I have given him a trial of Xanax at a low dose for his anxiety. He is reaching the age limitation to be considered for lung transplantation. He is not certain at this time whether he wants to pursue this option. I will see him back in a few weeks for repeat examination. documented in this encounter* Shukri Juárez MD - 04/19/2019 11:30 AM EDT CC: follow-up chest CT HPI: Belgica Angelo is a 63 y.o. male former [id number] smoker with severe COPD, oxygen dependence, alpha-1 antitrypsin deficiency, recurrent bronchitis. At his last visit he had to cut his vacation short due to severe COPD exacerbation. He was in [place] at the time. I reviewed his records from [place] and he had pneumonia. He presents today to review the results of his follow-up CT. His CTof his chest shows no infiltrates and stable right upper lobe nodule. He has been doing better withregards to his shortness of breath. He has not been using his oxygen as often as he had to when he was ill. He has some cough but no significant sputum production at this time. He has not been wheezing. He has no chest pain. He was asking about lung volume reduction surgery versus a [place] valve. Iexplained to him that he is not a candidate since he does not have emphysema just severe COPD and his diffusing capacity from 2013 was only 16% predicted. He does not have an indication for this procedure. Lung transplantation would be an option but he needs to participate in pulmonary rehab and lose weight. He is still not committed to lung transplantation evaluation. EXAMINATION: CT CHEST WITHOUT CONTRAST 04/12/19 HISTORY: ORDERING SYSTEM PROVIDED HISTORY: Pneumonia; Abnormal chest CT, ORDERING SYSTEM PROVIDED DIAGNOSIS CODES: R93.[address] COMPARISON: CT chest from 12/18/2018, CT of the chest from 12/19/2017 and 01/04/2017 FINDINGS: Cardiovascular: The thoracic aorta is normal in caliber. Atherosclerotic vascular calcifications ofthe coronary arteries. The cardiac size is normal. No pericardial effusion. Mediastinum: Calcified right hilar lymph nodes from previous remote granulomatous disease. Calcified subcarinal lymph nodes. Subcentimeter short axis noncalcified lymph nodes without lymphadenopathy. Pulmonary: Pulmonary nodule within the right upper lobe image number 28 measuring 1.0 x 0.8 cm unchanged. 0.3 cm pulmonary nodule left upper lobe image number 22, unchanged. The previously demonstrated ground-glass region within the left lower lobe is resolved consistent with an infectious/inflammatory process. No focal consolidation, pneumothorax, or pleural effusion. Osseous: No fracture. No aggressive osseous lesion. Upper abdomen: Calcifications within the spleen from previous remote granulomatous disease. IMPRESSION: 1. The ground-glass region within the left lower lobe is resolved consistent with infectious/inflammatory process. 2. The pulmonary nodule within the right upper lobe measuring 1.0 cm is unchanged from 2017 consistent with a benign finding. No new pulmonary nodule. I independently reviewed the images as well as with the patient and his which show a stable nodule and no new infiltrates or significant emphysema. Current Outpatient Medications Medication Sig Dispense Refill albuterol (PROVENTIL) 2.5 mg /3 mL (0.083 %) nebulizer solution USE 1 VIAL IN NEBULIZER 4 TIMES DAILY 120 vial 11 albuterol 90 mcg/actuation inhaler Inhale 2 puffs every 6 (six) hours as needed for wheezing. alpha-1 proteinase inhib.,hum, (GLASSIA) 1 gram/50 mL (2 %) Soln Infuse 60 mg/kg into a venous catheter every 7 days . 1 each 12 ALPRAZolam (XANAX) 0.25 MG tablet Take one twice daily as needed for anxiety . 60 tablet 0 amoxicillin (AMOXIL) 500 MG capsule 4 tablets two hours prior to procedure . 4 capsule 0 doxycycline hyclate (VIBRAMYCIN) 100 MG capsule TAKE 1 (ONE) CAPSULE (100 MG TOTAL) BY MOUTH 2 (TWO) TIMES A DAY FOR 21 DAYS . 42 capsule 2 fluticasone-vilanterol 100-25 mcg/dose DsDv Inhale daily . gabapentin (NEURONTIN) 300 MG capsule Take 300 mg by mouth every 8 (eight) hours. montelukast (SINGULAIR) 10 mg tablet Take 1 (one) tablet (10 mg total) by mouth daily . 90 tablet 3 predniSONE (DELTASONE) 10 MG tablet TAKE THREE TABLETS BY MOUTH DAILY FOR 5 DAYS , TAKE TWO TABLETSBY MOUTH DAILY FOR 5 DAYS , TAKE ONE TABLET BY MOUTH DAILY FOR 5 DAYS 30 tablet 0 tiotropium bromide (SPIRIVA RESPIMAT) 2.5 mcg/actuation Mist Inhale 2 sprays daily . 12 g 3 traMADol (ULTRAM) 50 mg tablet Take 50 mg by mouth every 4 (four) hours as needed for pain. No current facility-administered medications for this visit. PMH, surgical history, family history, social history: Reviewed, unchanged except where noted. Review of Systems - History obtained from the patient General ROS: negative for - chills or fever ENT ROS: negative for - nasal congestion, nasal discharge or sore throat Respiratory ROS: positive for - shortness of breath and wheezing negative for - cough or sputum changes Cardiovascular ROS: negative for - chest pain, edema or palpitations Gastrointestinal ROS: negative for - abdominal pain or change in bowel habits BP 138/72 Pulse 69 Resp 16 Wt 114.3 kg (252 lb) SpO2 93% General appearance: alert, appears stated age, cooperative, no distress and moderately obese Head: Normocephalic, without obvious abnormality Eyes: negative findings: lids and lashes normal, conjunctivae and sclerae normal and corneas clear Throat: lips, mucosa, and tongue normal; teeth and gums normal Neck: no adenopathy, no JVD, supple, symmetrical, trachea midline and thyroid not enlarged, symmetric, no tenderness/mass/nodules Lungs: normal percussion bilaterally and diminished breath sounds, not labored Chest wall: no tenderness, normal configuration Heart: regular rate and rhythm, S1, S2 normal, no murmur, click, rub or gallop Extremities: extremities normal, atraumatic, no cyanosis or edema or clubbing Skin: Skin color, texture, turgor normal. No rashes or lesions Lymph nodes: no cervical or supraclvicular nodes Neurologic: Grossly normal, oriented ASSESMENT/PLAN: Alpha 1 antitrypsin deficiency COPD Obesity He will continue on his triple inhaler therapy, his augmentation therapy for his alpha-1 antitrypsin deficiency, mucus clearance techniques and his oxygen. He needs to lose some weight. RTC 3 months or sooner with problems. documented in this encounter* Shukri Juárez MD - 10/24/2019 1:30 PM EDT CC: follow-up COPD/AAT deficiency HPI: Belgica Angelo is a 64 y.o. 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 He has history of recurrent bronchitis with a standing prescription for a course of prednisone as well as antibiotic. He has not required use of steroids or antibiotics for several months. He has not been hospitalized. His exertional dyspnea is severe but stable. He has a chest vest which does help him expectorate his phlegm. He has not had anychange in the character sputum nor has he heard any wheezing. He feels as if his triggers for shortness of breath are more ubiquitous, specifically odors and fumes. He is having more difficulty with anxiety and his is complaining of him being rather short tempered. When he is anxious or angry,his dyspnea is worse which then exacerbates his mood. He is due for his low-dose chest CT in April. PiMZ, 88mg/dL Current Outpatient Medications Medication Sig Dispense Refill albuterol (PROVENTIL) 2.5 mg /3 mL (0.083 %) nebulizer solution USE 1 VIAL IN NEBULIZER 4 TIMES DAILY 120 vial 11 albuterol 90 mcg/actuation inhaler Inhale 2 puffs every 6 (six) hours as needed for wheezing. alpha-1 proteinase inhib.,hum, (GLASSIA) 1 gram/50 mL (2 %) Soln Infuse 60 mg/kg into a venous catheter every 7 days . 1 each 12 amoxicillin (AMOXIL) 500 MG capsule 4 tablets two hours prior to procedure . 4 capsule 0 fluticasone furoate-vilanteroL 100-25 mcg/dose DsDv Inhale 1 Inhalation daily . 3 each 3 gabapentin (NEURONTIN) 300 MG capsule Take 300 mg by mouth every 8 (eight) hours. levoFLOXacin (LEVAQUIN) 500 MG tablet Take 1 (one) tablet (500 mg total) by mouth daily CALL OFFICEIF YOU DEVELOP MUSCLE PAIN OR TENDON PAIN for 7 days . 7 tablet 2 montelukast (SINGULAIR) 10 mg tablet Take 1 (one) tablet (10 mg total) by mouth daily . 90 tablet 3 predniSONE (DELTASONE) 10 MG tablet TAKE THREE TABLETS BY MOUTH DAILY FOR 5 DAYS , TAKE TWO TABLETSBY MOUTH DAILY FOR 5 DAYS , TAKE ONE TABLET BY MOUTH DAILY FOR 5 DAYS 30 tablet 0 predniSONE (DELTASONE) 10 MG tablet 3 TABLETS DAILY FOR 5 DAYS, 2 TABLETS DAILY FOR 5 DAYS, 1 TABLET DAILY FOR 5 DAYS. TAKE WITH FOOD . 30 tablet 2 tiotropium bromide (Spiriva Respimat) 2.5 mcg/actuation Mist Inhale 2 sprays daily . 12 g 3 traMADol (ULTRAM) 50 mg tablet Take 50 mg by mouth every 4 (four) hours as needed for pain. doxycycline hyclate (VIBRAMYCIN) 100 MG capsule TAKE 1 (ONE) CAPSULE (100 MG TOTAL) BY MOUTH 2 (TWO) TIMES A DAY FOR 21 DAYS . 42 capsule 2 No current facility-administered medications for this visit. PMH, surgical history, family history, social history: Reviewed, unchanged except where noted. Review of Systems - History obtained from the patient General ROS: negative for - chills, fatigue or fever Psychological ROS: positive for - anxiety and irritability ENT ROS: negative for - epistaxis, nasal congestion, nasal discharge or sore throat Respiratory ROS: positive for - cough, shortness of breath and mucus production Cardiovascular ROS: negative for - chest pain, edema or palpitations Neurological ROS: no TIA or stroke symptoms BP (!) 171/82 Pulse 78 Resp (!) 20 Wt 113.4 kg (250 lb) SpO2 94% Comment: 2L General appearance: alert, appears stated age, cooperative, no distress and obese somewhat anxious Head: Normocephalic, without obvious abnormality Eyes: negative findings: lids and lashes normal, conjunctivae and sclerae normal and corneas clear Throat: no thrush Neck: no adenopathy, no JVD, supple, symmetrical, trachea midline and thyroid not enlarged, symmetric, no tenderness/mass/nodules Lungs: normal percussion bilaterally and very diminised breath sound almost absent, mild labored Heart: regular rate and rhythm, very distant heart tones Extremities: extremities normal, atraumatic, no cyanosis or edema or clubbing Pulses: positive pedal pulses Skin: Skin color, texture, turgor normal. No rashes or lesions Neurologic: Grossly normal, oriented ASSESMENT/PLAN: Severe COPD Oxygen dependence Alpha-1 antitrypsin deficiency, heterozygous He needs to improve his physical activity. He would benefit from pulmonary rehab but he is not interested. With his more recent weight gain, he likely has obstructive sleep apnea but he is declining sleep evaluation. For now he will continue on his supplemental oxygen and his triple inhaler therapywith nebulized treatments. He will continue periodic courses of antibiotics and steroids when he has change in the character of his phlegm. He previously failed Daliresp due to diarrhea. He will continue on his replacement therapy for his low alpha-1 level. He is due for his low-dose CT chest in April. RTC 4 months. He will need to cough on appointment since the schedule is not yet available. documented in this encounter* Shukri Juárez MD - 08/23/2018 10:54 AM EDT HPI: Belgica Angelo is a 62 y.o. male former [id number] smoker having quit in 2010, alpha-1 antitrypsin deficiency on augmentation therapy and severe COPD. He has a history of chronic bronchitisand history of bronchiectasis although his last chest CT did not show significant peripheral bronchiectasis although he did have some central bronchial wall thickening. He states that he has been doing fairly well. He has noticed increased shortness of breath with the high heat index. He has not had a recent bronchitis requiring antibiotics although he has had more productive sputum over the pastseveral days that is clear in color. He has been using his chest vest. He denies any fevers, chest pain, wheezing. He has lost almost 30 pounds since his last visit. This has improved his dyspnea. Current Outpatient Medications Medication Sig Dispense Refill albuterol (PROVENTIL) 2.5 mg /3 mL (0.083 %) nebulizer solution Take 2.5 mg by nebulization every 6(six) hours as needed for wheezing. albuterol 90 mcg/actuation inhaler Inhale 2 puffs every 6 (six) hours as needed for wheezing. alpha-1 proteinase inhib.,hum, (GLASSIA) 1 gram/50 mL (2 %) Soln Infuse 60 mg/kg into a venous catheter every 7 days. amoxicillin (AMOXIL) 500 MG capsule 4 tablets two hours prior to procedure . 4 capsule 0 fluticasone-vilanterol 100-25 mcg/dose DsDv Inhale daily . gabapentin (NEURONTIN) 300 MG capsule Take 300 mg by mouth every 8 (eight) hours. montelukast (SINGULAIR) 10 mg tablet tiotropium bromide (SPIRIVA RESPIMAT) 2.5 mcg/actuation Mist Inhale 2 sprays daily . 12 g 3 traMADol (ULTRAM) 50 mg tablet Take 50 mg by mouth every 4 (four) hours as needed for pain. cefdinir (OMNICEF) 300 MG capsule Take 1 (one) capsule (300 mg total) by mouth 2 (two) times a day for 10 days . 20 capsule 3 predniSONE (DELTASONE) 10 MG tablet TAKE ONE DAILY. TAKE WITH FOOD . 90 tablet 3 No current facility-administered medications for this visit. PMH, surgical history, family history, social history: Reviewed, unchanged except where noted. Review of Systems - History obtained from the patient General ROS: positive for - intentional weight loss ENT ROS: negative for - headaches, nasal congestion or sinus pain Respiratory ROS: positive for - cough and shortness of breath negative for - sputum changes Cardiovascular ROS: negative BP 127/60 Pulse 68 Resp 18 Wt 114.8 kg (253 lb) SpO2 93% General appearance: alert, appears stated age, cooperative, no distress and obese Head: Normocephalic, without obvious abnormality Eyes: negative findings: lids and lashes normal, conjunctivae and sclerae normal and corneas clear Throat: dentures, no thrush Neck: no adenopathy, no JVD, supple, symmetrical, trachea midline and thyroid not enlarged, symmetric, no tenderness/mass/nodules Lungs: normal percussion bilaterally and no crackles or wheezes Heart: regular rate and rhythm, S1, S2 normal, no murmur, click, rub or gallop Extremities: extremities normal, atraumatic, no cyanosis or edema or clubbing ASSESMENT/PLAN: COPD Alpha 1 antitrypsin defeciency Chronic bronchitis He will continue his current inhaler therapy as well as his augmentation therapy for his alpha-1 antitrypsin deficiency. I refilled the prescription for antibiotic and prednisone to have available ifhe develops problems. I will see him back in the fall [place] He is due for his low-dose chest CT in December. documented in this encounter Reason for Referral Status Reason Specialty Diagnoses / Procedures Referred By Contact Referred To Contact Authorized Radiology Diagnoses Chronic obstructive pulmonary disease, unspecified COPD type (HCC) Special screening for malignant neoplasm of the respiratory organs Personal history of tobacco use, presenting hazards to health Procedures CT Lung Cancer Screening Shukri Juárez MD [address] [place] [id number] Status Reason Specialty Diagnoses / Procedures Referred By Contact Referred To Contact New Request Radiology Diagnoses Abnormal chest CT Procedures CT Chest Without Contrast Shukri Juárez MD [address] [place] [id number] Status Reason Specialty Diagnoses / Procedures Referred By Contact Referred To Contact Authorized Radiology Diagnoses Abnormal chest CT Procedures CT Chest Without Contrast Shukri Juárez MD [address] [place] [id number] Status Reason Specialty Diagnoses / Procedures Referred By Contact Referred To Contact Pending Review Radiology Diagnoses Chronic obstructive pulmonary disease, unspecified COPD type (HCC) Special screening for malignant neoplasm of the respiratory organs Personal history of tobacco use, presenting hazards to health Procedures CT Lung Cancer Screening Shukri Juárez MD [address] [place] [id number] Specialty Diagnoses / Procedures Referred By Contac t Referred To Contact Diagnoses Wheezing Lung transplant candidate 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 Procedures CONSULT TO ENDO METABOLIC BONE OFFICE/OUTPATIENT [facility] 60-74 MINUTES Wilbert Umanzor MD [address] [place] [address] Referral ID Status Reason Start Date Expiration Date Visits Requested Visits Authorized [id number] Authorized PCP Requested Referral 11/12/2021 08/12/2022 1 1 Specialty Diagnoses / Procedures Referred By Teeteeac t Referred To Contact CT IMAGING Diagnoses Wheezing Lung transplant candidate SOB (shortness of breath) care home current use of systemic steroids Procedures CT CHEST WO IVCON DIAGNOSTIC COMPUTED TOMOGRAPHY THORAX W/O CNTRST Wilbert Umanzor MD [address] [place] [address] Ct Imaging Referral ID Status Reason Start Date Expiration Date Visits Requested Visits Authorized [id number] Pending Review Auto-Generat ed Referral 11/12/2021 09/11/2022 1 1 Specialty Diagnoses / Procedures Referred By Contgil t Referred To Contact [facility] Diagnoses Wheezing Lung transplant candidate 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 Procedures ARTERIAL BLOOD GAS, ROOM AIR GASES BLOOD PH DIRECT VANESA XCPT PULSE OXIMITRY Wilbert Umanzor MD [address] [place] [address] Respiratory [place] [address] [place] [id number] Referral ID Status Reason Start Date Expiration Date Visits Requested Visits Authorized [id number] Pending Review Auto-Generat ed Referral 11/12/2021 09/11/2022 1 1 Specialty Diagnoses / Procedures Referred By Contac t Referred To Contact [facility] Diagnoses Wheezing Lung transplant candidate SOB (shortness of breath) care home current use of systemic steroids Procedures SIX MINUTE WALK CARDIOPULMONARY EXERCISE STRESS Wilbert Umanzor MD [address] [place] [address] [address] Referral ID Status Reason Start Date Expiration Date Visits Requested Visits Authorized [id number] Pending Review Auto-Generat ed Referral 11/12/2021 09/11/2022 1 1 Specialty Diagnoses / Procedures Referred By Contac t Referred To Contact [facility] Diagnoses Wheezing Lung transplant candidate 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 Procedures SPIROMETRY BASELINE ONLY SPMTRY W/VC EXPIRATORY YAMEL W/WO MXML VOL VNTJ Wilbert Umanzor MD [address] [place] [address] Respiratory [place] [address] [place] [id number] Referral ID Status Reason Start Date Expiration Date Visits Requested Visits Authorized [id number] Pending Review Auto-Generat ed Referral 11/12/2021 09/11/2022 1 1 Specialty Diagnoses / Procedures Referred By Lyric toro Referred To Contact Diagnoses Transplant Chronic obstructive pulmonary disease, unspecified COPD type (HCC) Encounter for pre-transplant evaluation for lung transplant Lung transplant candidate SOB (shortness of breath) care home current use of systemic steroids Procedures CONSULT TO ENDO METABOLIC BONE OFFICE/OUTPATIENT [facility] MDM 60-74 MINUTES Wilbert Umanzor MD [address] [place] [address] Referral ID Status Reason Start Date Expiration Date Visits Requested Visits Authorized [id number] Authorized PCP Requested Referral 2 11/18/2022 1 1 Specialty Diagnoses / Procedures Referred By Lyric toro Referred To Contact Cardiology Diagnoses Transplant Chronic obstructive pulmonary disease, unspecified COPD type (HCC) Encounter for pre-transplant evaluation for lung transplant Lung transplant candidate SOB (shortness of breath) care home current use of systemic steroids Procedures CONSULT TO CARDIOLOGY OFFICE/OUTPATIENT [facility] MDM 60-74 MINUTES Wilbert Umanzor MD [address] [place] [address] Referral ID Status Reason Start Date Expiration Date Visits Requested Visits Authorized [id number] Authorized PCP Requested Referral 2 11/18/2022 1 1 Specialty Diagnoses / Procedures Referred By Lyric toro Referred To Contact Cardiac Surg Diagnoses Transplant Chronic obstructive pulmonary disease, unspecified COPD type (HCC) Encounter for pre-transplant evaluation for lung transplant Lung transplant candidate SOB (shortness of breath) care home current use of systemic steroids Procedures CARDIOTHORACIC PREOP EVALUATION OFFICE/OUTPATIENT [facility] MDM 60-74 MINUTES Wilbert Umanzor MD [address] [place] [address] Referral ID Status Reason Start Date Expiration Date Visits Requested Visits Authorized [id number] Authorized PCP Requested Referral 2 11/18/2022 1 1 Specialty Diagnoses / Procedures Referred By Lyric t Referred To 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 Procedures ARTERIAL BLOOD GAS, ROOM AIR GASES BLOOD PH DIRECT VANESA XCPT PULSE OXIMITRY Wilbert Umanzor MD [address] [place] [address] [address] Referral ID Status Reason Start Date Expiration Date Visits Requested Visits Authorized [id number] Pending Review Auto-Generat ed Referral 2 12/18/2022 1 1 Specialty Diagnoses / Procedures Referred By Lyric toro Referred To [facility] Diagnoses Transplant Chronic obstructive pulmonary disease, unspecified COPD type (HCC) Encounter for pre-transplant evaluation for lung transplant Lung transplant candidate 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 Procedures SIX MINUTE WALK CARDIOPULMONARY EXERCISE STRESS Wilbert Umanzor MD [address] [place] [address] [address] Referral ID Status Reason Start Date Expiration Date Visits Requested Visits Authorized [id number] Pending Review Auto-Generat ed Referral 2 12/18/2022 1 1 Specialty Diagnoses / Procedures Referred By Lyric t Referred To [facility] Diagnoses Transplant Chronic obstructive pulmonary disease, unspecified COPD type (HCC) Encounter for pre-transplant evaluation for lung transplant Lung transplant candidate 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 Procedures SPIROMETRY BASELINE ONLY SPMTRY W/VC EXPIRATORY YAMEL W/WO MXML VOL VNTJ Wilbert Umanzor MD [address] [place] [address] [place] [address] Referral ID Status Reason Start Date Expiration Date Visits Requested Visits Authorized [id number] Pending Review Auto-Generat ed Referral 2 12/18/2022 1 1 Specialty Diagnoses / Procedures Referred By Lyric toro Referred To Contact Nutrition Diagnoses Acute bronchitis with chronic obstructive pulmonary disease (COPD) (HCC) Hypertensive chronic kidney disease with stage 1 through stage 4 chronic kidney disease, or unspecified chronic kidney disease Procedures CONSULT TO NUTRITION THERAPY OFFICE/OUTPATIENT [facility] 60-74 MINUTES Wilbert Umanzor MD [address] [place] [id number] Referral ID Status Reason Start Date Expiration Date Visits Requested Visits Authorized [id number] Authorized PCP Requested Referral 2 01/25/2023 1 1 Specialty Diagnoses / Procedures Referred By Lyric toro Referred To Contact Infectious Diseases Diagnoses Acute bronchitis with chronic obstructive pulmonary disease (COPD) (HCC) Hypertensive chronic kidney disease with stage 1 through stage 4 chronic kidney disease, or unspecified chronic kidney disease Lung transplant candidate SOB (shortness of breath) care home current use of systemic steroids Procedures CONSULT TO INFECTIOUS DISEASES OFFICE/OUTPATIENT [facility] 60-74 MINUTES Wilbert Umanzor MD [address] [place] [address] Referral ID Status Reason Start Date Expiration Date Visits Requested Visits Authorized [id number] Authorized PCP Requested Referral 02/24/2022 01/25/2023 1 1 Specialty Diagnoses / Procedures Referred By Lyric toro Referred To Contact Diagnoses Acute bronchitis with chronic obstructive pulmonary disease (COPD) (HCC) Hypertensive chronic kidney disease with stage 1 through stage 4 chronic kidney disease, or unspecified chronic kidney disease Lung transplant candidate 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 Procedures CONSULT TO HEPATOLOGY OFFICE/OUTPATIENT [facility] 60-74 MINUTES Wilbert Umanzor MD [address] [facility] [place] [place] [address] Referral ID Status Reason Start Date Expiration Date Visits Requested Visits Authorized [id number] Authorized PCP Requested Referral 02/24/2022 01/25/2023 1 1 Specialty Diagnoses / Procedures Referred By Contac t Referred To Contact Cardiology Diagnoses Acute bronchitis with chronic obstructive pulmonary disease (COPD) (HCC) Hypertensive chronic kidney disease with stage 1 through stage 4 chronic kidney disease, or unspecified chronic kidney disease Lung transplant candidate 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 Procedures CONSULT TO CARDIOLOGY OFFICE/OUTPATIENT [facility] 60-74 MINUTES Wlibert Umanzor MD [address] [place] [address] Referral ID Status Reason Start Date Expiration Date Visits Requested Visits Authorized [id number] Authorized PCP Requested Referral 02/24/2022 01/25/2023 1 1 Specialty Diagnoses / Procedures Referred By Lyric toro Referred [facility] Diagnoses Acute bronchitis with chronic obstructive pulmonary disease (COPD) (HCC) Hypertensive chronic kidney disease with stage 1 through stage 4 chronic kidney disease, or unspecified chronic kidney disease Lung transplant candidate SOB (shortness of breath) care home current use of systemic steroids Procedures ECG COMPLETE ECG ROUTINE ECG W/LEAST 12 LDS W/I&R Wilbert Umanzor MD [address] [place] [address] [facility] [place] [id number] [place] [address] Referral ID Status Reason Start Date Expiration Date Visits Requested Visits Authorized [id number] Pending Review Auto-Generat ed Referral 02/24/2022 01/25/2023 1 1 Specialty Diagnoses / Procedures Referred By Lyric toro Referred To Contact CT IMAGING Diagnoses Lung transplant candidate 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 Procedures CT CHEST WO IVCON DIAGNOSTIC COMPUTED TOMOGRAPHY THORAX W/O CNTRST Wilbert Umanzor MD [address] [place] [address] Ct Imaging Referral ID Status Reason Start Date Expiration Date Visits Requested Visits Authorized [id number] Authorized Auto-Generat ed Referral 08/02/2022 07/21/2023 1 1 Specialty Diagnoses / Procedures Referred By Lyric toro Referred To Contact [facility] Diagnoses Lung transplant candidate Procedures ARTERIAL BLOOD GAS, ROOM AIR GASES BLOOD PH DIRECT VANESA XCPT PULSE OXIMITRY [place]bert Umanz[place] [address] [place] [address] [address] Referral ID Status Reason Start Date Expiration Date Visits Requested Visits Authorized [id number] Authorized Auto-Generat ed Referral 08/02/2022 07/21/2023 1 1 Specialty Diagnoses / Procedures Referred By Contac t Referred To Contact [facility] Diagnoses Lung transplant candidate SOB (shortness of breath) care home current use of systemic steroids Procedures SIX MINUTE WALK CARDIOPULMONARY EXERCISE STRESS Wilbert Umanzor MD [facility] [place] [address] [address] Referral ID Status Reason Start Date Expiration Date Visits Requested Visits Authorized [id number] Authorized Auto-Generat ed Referral 08/02/2022 07/21/2023 1 1 Specialty Diagnoses / Procedures Referred By Contac t Referred To Contact [facility] Diagnoses Lung transplant candidate SOB (shortness of breath) care home current use of systemic steroids Procedures SPIROMETRY BASELINE ONLY SPMTRY W/VC EXPIRATORY YAMEL W/WO MXML VOL VNTJ Wilbert Umanzor MD [address] [place] [address] [address] Referral ID Status Reason Start Date Expiration Date Visits Requested Visits Authorized [id number] Authorized Auto-Generat ed Referral 08/02/2022 07/21/2023 1 1 Specialty Diagnoses / Procedures Referred By Contac t Referred To Contact Gastroenterology Diagnoses 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) Procedures CONSULT TO GASTROENTEROLOGY OFFICE/OUTPATIENT [facility] MDM 60-74 MINUTES Wilbert Umanzor MD [address] [place] [address] Referral ID Status Reason Start Date Expiration Date Visits Requested Visits Authorized [id number] Authorized PCP Requested Referral 09/01/2022 08/25/2023 1 1 Specialty Diagnoses / Procedures Referred By Contac t Referred To Contact [facility] Diagnoses 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) Procedures SPIROMETRY BASELINE ONLY SPMTRY W/VC EXPIRATORY YAMEL W/WO MXML VOL VNTJ Erna, Sameep, MD [address] [place] [address] [facility] [place] [address] [place] [address] Referral ID Status Reason Start Date Expiration Date Visits Requested Visits Authorized [id number] Authorized Auto-Generat ed Referral 09/01/2022 09/24/2023 1 1 Specialty Diagnoses / Procedures Referred By Contac t Referred To Contact Conchita Bronson MD [address] [place] [address] Referral ID Status Reason Start Date Expiration Date V isits Requested Visits Authorized [id number] Pending Review 07/18/2023 07/17/2024 1 1 Specialty Diagnoses / Procedures Referred By Contac t Referred To Contact Gastroenterology Diagnoses Colon cancer screening Procedures Colonoscopy Screening; Average Risk Patient [place] COLONOSCOPY FLX DX W/COLLJ SPEC WHEN PFRMD WI COLON CA SCRN NOT HI RSK IND WI COLORECTAL SCRN; HI RISK IND WI COLONOSCOPY W/BIOPSY SINGLE/MULTIPLE WI COLSC FLX W/RMVL OF TUMOR POLYP LESION SNARE TQ WI COLSC FLX W/REMOVAL LESION BY HOT BX FORCEPS Consuelo Leahy R, DO [address] [place] [address] Referral ID Status Reason Start Date Expiration Date V isits Requested Visits Authorized [id number] Authorized 02/11/2023 02/11/2024 1 1 Specialty Diagnoses / Procedures Referred By Contac t Referred To Contact Diagnoses 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, bilateral (HCC) Procedures CONSULT TO ENDO METABOLIC BONE OFFICE/OUTPATIENT [facility] 60 MINUTES Viviane Curtis MD [address] [place] [address] Referral ID Status Reason Start Date Expiration Date Visits Requested Visits Authorized [id number] Authorized PCP Requested Referral 10/26/2023 07/20/2024 1 1 Specialty Diagnoses / Procedures Referred By Contac t Referred To Contact [facility] Diagnoses 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) Procedures SPIROMETRY BASELINE ONLY SPMTRY W/VC EXPIRATORY YAMEL W/WO MXML VOL VNTJ Viviane Curtis MD [address] [place] [address] [facility] [place] [address] [place], [place] [id number] Referral ID Status Reason Start Date Expiration Date Visits Requested Visits Authorized [id number] Pending Review Auto-Generat ed Referral 10/26/2023 08/19/2024 1 1 Specialty Diagnoses / Procedures Referred By Contac t Referred To Contact Infectious Diseases Diagnoses 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) Procedures CONSULT TO INFECTIOUS DISEASES OFFICE/OUTPATIENT [facility] 60 MINUTES Viviane Curtis MD [address] [place] [address] Referral ID Status Reason Start Date Expiration Date Visits Requested Visits Authorized [id number] Authorized PCP Requested Referral 11/10/2023 07/25/2024 1 1 Specialty Diagnoses / Procedures Referred By Contac t Referred To Contact CT IMAGING Diagnoses Follow-up examination after lung transplant (HCC) Procedures CT CHEST WO IVCON DIAGNOSTIC COMPUTED TOMOGRAPHY THORAX W/O CNTRST Viviane Curtis MD [address] [place] [address] Ct Imaging [place] [address] Referral ID Status Reason Start Date Expiration Date Visits Requested Visits Authorized [id number] Pending Review Auto-Generat ed Referral 11/10/2023 08/24/2024 1 1 Referral ID Status Reason Start Date Expiration Date V isits Requested Visits Authorized [id number] Closed Auto-Generate d Referral 11/10/2023 08/24/2024 1 1 Specialty Diagnoses / Procedures Referred By Contac t Referred To Contact Orthopedics Diagnoses Acute pain of right knee Procedures CONSULT TO ORTHOPAEDICS OFFICE/OUTPATIENT [facility] 60 MINUTES Keshav Phillips APRN.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 MANAGER [address] [place] [address] Referral ID Status Reason Start Date Expiration Date Visits Requested Visits Authorized [id number] Authorized PCP Requested Referral 01/02/2025 1 1 Specialty Diagnoses / Procedures Referred By Contac t Referred To Contact XR IMAGING Diagnoses Acute pain of right knee Procedures XR KNEE GENERAL 4V AP BOTH/PA BOTH/LAT/MERC RIGHT RADIOLOGIC EXAM KNEE COMPLETE 4/MORE VIEWS Keshav Phillips, 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 SERVICE REPRESENTATIVE.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 MANAGER [address] [place] [address] [place] [address] Referral ID Status Reason Start Date Expiration Date V isits Requested Visits Authorized [id number] Closed Auto-Generate d Referral 01/03/2024 02/01/2025 1 1 Medications Administered Section Inactive Administered Medications - up to 3 most recent administrations Medication Order MAR Action Action Date Dose Rate Site dupilumab 400 mg injection (DUPIXENT) 400 mg, SUBCUTANEOUS, ONCE, 1 dose, On Tue07/27/21 at 0900, Refrigerate. Protect From Light. Do Not Shake. Allow to sit for 45 minutes to reach room temperature before injection. Given 07/28/2021 10:00 AM EDT 400 mg Arm, Left Active Administered Medications - up to 3 most recent administrations Medication Order MAR Action Action Date Dose Rate Site dupilumab 200 mg injection (DUPIXENT) 200 mg, SUBCUTANEOUS, EVERY 2 WEEKS, First dose on Tue07/27/21 at 0900, Until Discontinued, Refrigerate. Protect From Light. Do Not Shake. Allow to sit for 45 minutes to reach room temperature before injection. Given 08/11/2021 11:15 AM EDT 200 mg Arm, Right Active Administered Medications - up to 3 most recent administrations Medication Order MAR Action Action Date Dose Rate Site dupilumab 200 mg injection (DUPIXENT) 200 mg, SUBCUTANEOUS, EVERY 2 WEEKS, First dose on Tue07/27/21 at 0900, Until Discontinued, Refrigerate. Protect From Light. Do Not Shake. Allow to sit for 45 minutes to reach room temperature before injection. Given 08/25/2021 11:55 AM EDT 200 mg Arm, Left Given 08/11/2021 11:15 AM EDT 200 mg A rm, Right Active Administered Medications - up to 3 most recent administrations Medication Order MAR Action Action Date Dose Rate Site dupilumab 200 mg injection (DUPIXENT) 200 mg, SUBCUTANEOUS, EVERY 2 WEEKS, First dose on Tue07/27/21 at 0900, Until Discontinued, Refrigerate. Protect From Light. Do Not Shake. Allow to sit for 45 minutes to reach room temperature before injection. Given 09/08/2021 9:45 AM EDT 200 mg Arm, Right Given 08/25/2021 11:55 AM EDT 200 mg A rm, Left Given 08/11/2021 11:15 AM EDT 200 mg A rm, Right Active Administered Medications - up to 3 most recent administrations Medication Order MAR Action Action Date Dose Rate Site dupilumab 200 mg injection (DUPIXENT) 200 mg, SUBCUTANEOUS, EVERY 2 WEEKS, First dose on Tue07/27/21 at 0900, Until Discontinued, Refrigerate. Protect From Light. Do Not Shake. Allow to sit for 45 minutes to reach room temperature before injection. Given 09/22/2021 9:48 AM EDT 200 mg Arm, Left Given 09/08/2021 9:45 AM EDT 200 mg Ar m, Right Given 08/25/2021 11:55 AM EDT 200 mg A rm, Left Active Administered Medications - up to 3 most recent administrations Medication Order MAR Action Action Date Dose Rate Site dupilumab 200 mg injection (DUPIXENT) 200 mg, SUBCUTANEOUS, EVERY 2 WEEKS, First dose on Tue07/27/21 at 0900, Until Discontinued, Refrigerate. Protect From Light. Do Not Shake. Allow to sit for 45 minutes to reach room temperature before injection. Given 10/06/2021 9:35 AM EDT 200 mg Arm, Right Given 09/22/2021 9:48 AM EDT 200 mg Ar m, Left Given 09/08/2021 9:45 AM EDT 200 mg Ar m, Right Active Administered Medications - up to 3 most recent administrations Medication Order MAR Action Action Date Dose Rate Site dupilumab 200 mg injection (DUPIXENT) 200 mg, SUBCUTANEOUS, EVERY 2 WEEKS, First dose on Tue07/27/21 at 0900, Until Discontinued, Refrigerate. Protect From Light. Do Not Shake. Allow to sit for 45 minutes to reach room temperature before injection. Given 11/03/2021 9:42 AM EDT 200 mg Arm, Right Given 10/20/2021 9:00 AM EDT 200 mg Ar m, Left Given 10/06/2021 9:35 AM EDT 200 mg Ar m, Right Inactive Administered Medications - up to 3 most recent administrations Medication Order MAR Action Action Date Dose Rate Site albuterol 2.5 mg /3 mL (0.083 %) 2.5 mg (PROVENTIL) 2.5 mg, INHALATION, NEEDED, 1 dose, Starting on Tue09/03/22 at 0807, Until 09/04/22 at 0303, wheezing/shortness of breath, Preprocedure NaCl 0.9% iv infusion 5-30 mL/hr, INTRAVENOUS, CONTINUOUS, Starting on Tue09/03/22 at 0830, Until 09/04/22 at 0303, Preprocedure Inactive Administered Medications - up to 3 most recent administrations Medication Order MAR Action Action Date Dose Rate Site benzocaine 20% (TOPEX) TOPICAL, X (OR/PROCEDURE) PRN, Starting on Tue11/12/22 at 1450, Until Tue11/12/22 at 1450, Intraprocedure Given 11/12/2022 2:50 PM EDT 1 [place] fentaNYL 50 mcg/mL injection (SUBLIMAZE) INTRAVENOUS, X (OR/PROCEDURE) PRN, Starting on Tue11/12/22 at 1451, Until Tue11/12/22 at 1454, Intraprocedure Given 11/12/2022 2:54 PM EDT 25 mcg Given 11/12/2022 2:51 PM EDT 75 mcg midazolam (PF) injection (VERSED) INTRAVENOUS, X (OR/PROCEDURE) PRN, Starting on Tue11/12/22 at 1451, Until Tue11/12/22 at 1456, Intraprocedure Given 11/12/2022 2:56 PM EDT 1 mg Given 11/12/2022 2:54 PM EDT 2 mg Given 11/12/2022 2:51 PM EDT 3 mg onabotulinum toxin type A injection (BOTOX) X (OR/PROCEDURE) PRN, Starting on Tue11/12/22 at 1500, Until Tue11/12/22 at 1500, Intraprocedure Given 11/12/2022 3:00 PM EDT 100 Units Health Concerns Infection Onset Date Last Indicated Resolved Time Respiratory Rule-Out 06/02/2022 06/02/2022 Infection Onset Date Last Indicated Resolved Time COVID-19 Rule-Out 08/13/2022 08/13/2022 08/13/2022 8:29 PM EDT Respiratory Rule-Out 08/13/2022 08/13/2022 07/07/2 023 11:44 PM EDT Infection Onset Date Last Indicated Resolved Time COVID-19 Rule-Out 09/03/2022 09/03/2022 Respiratory Rule-Out 09/03/2022 09/03/2022 Infection Onset Date Last Indicated Resolved Time COVID-19 Rule-Out 09/03/2022 09/03/2022 09/04/2022 1:36 AM EDT Respiratory Rule-Out 09/03/2022 09/03/2022 023 10:15 PM EDT Infection Onset Date Last Indicated Resolved Time COVID-19 Rule-Out 10/21/2022 10/21/2022 10/22/2022 3:10 AM EDT Respiratory Rule-Out 10/21/2022 10/21/2022 023 10:27 PM EDT Infection Onset Date Last Indicated Resolved Time Respiratory Rule-Out 04/20/2023 04/20/2023 024 9:59 PM EDT Chief Complaint and Reason for Visit Chief Complaint Admit Date Sleep apnea September 27, 2024 8: 59am Reason for Visit Admit Date Daytime hypersomnia September 27, 2024 8: 59am Chief Complaint Admit Date Sleep apnea September 27, 2024 8: 59am daytime hypersomnia October 09, 2024 7:36pm Reason for Visit Admit Date Daytime hypersomnia September 27, 2024 8: 59am Asthma September 27, 2024 8: 59am Obesity September 27, 2024 8: 59am S/P lung transplant September 27, 2024 8: 59am Additional Source Comments (unrecognized sect ion and content) No Status Records FoundNo Status Records FoundNo Status Records FoundNo Status Records FoundNo Status Records FoundNo Status Records FoundNo Status Records FoundNo Status Records FoundNo Status Records FoundNo Status Records Found INFORMATION SOURCE (unrecogn ized section and content) DATE CREATED AUTHOR 08/11/2017 [facility] DATE CREATED AUTHOR AUTHOR'S ORGANIZ ATION 01/15/2018 [facility] DATE CREATED AUTHOR AUTHOR'S ORGANIZ ATION 06/14/2018 [facility] DATE CREATED AUTHOR AUTHOR'S ORGANIZ ATION 12/21/2019 [facility] DATE CREATED AUTHOR AUTHOR'S ORGANIZ ATION 03/17/2020 [facility] DATE CREATED AUTHOR AUTHOR'S ORGANIZ ATION 11/08/2022 [facility] DATE CREATED AUTHOR AUTHOR'S ORGANIZ ATION 07/29/2023 [facility] DATE CREATED AUTHOR AUTHOR'S ORGANIZ ATION 05/19/2024 [facility] DATE CREATED AUTHOR AUTHOR'S ORGANIZ ATION 12/05/2024 [facility] DATE CREATED AUTHOR AUTHOR'S ORGANIZ ATION 12/14/2024 [facility] Reason for Visit (unrecogniz ed section and content) Reason Comments Right Knee Pain Specialty Diagnoses / Procedures Referred By Contac t Referred To Contact [facility] [place] / INTERNAL MEDICINE Diagnoses Primary osteoarthritis of right knee Procedures CONSULT TO CENTER FOR PAIN RECOVERY (CHRONIC PAIN) OFFICE/OUTPATIENT [facility] 60 MINUTES Timothy Best V, DO [address] [place] [address] Phone: tel: [address] [place] [address] [address] [place] [address] Referral ID Status Reason Start Date Expiration Date Visits Requested Visits Authorized [id number] Pending Review PCP Requested Referral 03/30/2024 03/30/2025 1 1 Reason Comments Osteopenia Specialty Diagnoses / Procedures Referred By Contac t Referred To Contact Diagnoses 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, bilateral (HCC) Procedures CONSULT TO ENDO METABOLIC BONE OFFICE/OUTPATIENT [facility] 60 MINUTES Viviane Curtis MD [address] [place] [address] Referral ID Status Reason Start Date Expiration Date V isits Requested Visits Authorized [id number] Closed PCP Requested Referral 10/26/2023 07/20/2024 1 1 Reason Comments Post-Op Visit Specialty Diagnoses / Procedures Referred By Contac t Referred To Contact HOSP INPATIENT Diagnoses Lung transplant planned COPD (chronic obstructive pulmonary disease) (HCC) Procedures [facility] IP/OBS CARE [facility] 75 MINUTES [facility] [address] [place] [address] Referral ID Status Reason Start Date Expiration Date Visits Re quested Visits Authorized [id number] 1 1 Reason Comments Radio Gen A21 Reason Comments Spirometry Specialty Diagnoses / Procedures Referred By Contac t Referred To Contact [facility] Diagnoses Wheezing Lung transplant candidate SOB (shortness of breath) care home current use of systemic steroids Procedures SPIROMETRY BASELINE ONLY SPMTRY W/VC EXPIRATORY YAMEL W/WO MXML VOL PHUCTWilbert Ash MD [address] [place] [address] [facility] [place] [address] [place] [address] Referral ID Status Reason Start Date Expiration Date V isits Requested Visits Authorized [id number] Closed Auto-Generate d Referral 11/12/2021 09/11/2022 1 1 Reason Onset Date Comments Procedure 07/24/2021 24 Hr pH Probe R emoval Specialty Diagnoses / Procedures Referred By Contac t Referred To Contact TRANSPLANT Diagnoses Chronic obstructive pulmonary disease, unspecified COPD type (HCC) Procedures CONSULT TO TRANSPLANT CENTER NEW PATIENT VISIT LEVEL 5 DXA BONE DENSITY AXIAL 1+ SITES FLUOROSCOPE EXAMINATION MANOMETRY ESOPHAGEAL ESOPHAGRAM L HRT CATH W/NJX L VENTRICULOGRAPHY IMG S&I RIGHT HEART CATHETERIZATION RADIOLOGIC EXAM CHEST 4+ VIEWS CAT SCAN OF CHEST COMBO PULMONARY VENTILATION & PERFUSION IMAGING ULTRASOUND-ABDOMINAL PC CT MAXLFCL AREA C-MATRL CAROTID ULTRASOUND, COMPLETE PVR OF EXTREMITIES TUMOR IMAGING PET-LTD AREA-CHEST/HEAD/NEC CT ABD & PELVIS W/O CONTRAST SPIROMETRY WO BRONCHODILATOR PULMONARY STRESS TESTING,COMPLEX DIFFUSING CAPACITY BLOOD GAS MIXED WO O2 SAT GAS DILUT/WASHOUT LUNG VOL W/WO DISTRIB VENT&VOL PLETHYSMOGRAPHY LUNG VOLUMES W/WO AIRWAY RESIST THER/PROPH/DIAG INJ, SC/IM QUANT DIFFERENTIAL PULM PERFUSION W/WO IMAGING DOPPLER ECHO HEART,COMPLETE CT ABD & PELVIS W/O CONTRAST Shukri Juárez MD [address] [place] [address] [facility] [address] [address] Referral ID Status Reason Start Date Expiration Date Visits Requested Visits Authorized [id number] Authorized Financial Clearance Required - 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 Payor Patient Cleared - INN Insurance Found 01/13/2021 01/13/2022 99 [phone] Reason Comments Follow-up F/U Status Reason Specialty Diagnoses / Procedures Referred By Contact Referred To Contact Authorized Radiology Diagnoses Chronic obstructive pulmonary disease, unspecified COPD type (HCC) Special screening for malignant neoplasm of the respiratory organs Personal history of tobacco use, presenting hazards to health Procedures CT Lung Cancer Screening Shukri Juárez MD [address] [place] [id number] Reason Comments Follow-up COPD/chest CT Reason Comments Follow-up SOB Status Reason Specialty Diagnoses / Procedures Referred By Contact Referred To Contact Authorized Radiology Diagnoses Abnormal chest CT Procedures CT Chest Without Contrast Shukri Juárez MD [address] [place] [id number] Reason Comments Follow-up chest ct Reason Comments Follow-up COPD Reason Comments Follow-up 4 month f/u Specialty Diagnoses / Procedures Referred By Lyric toro Referred To Contact [facility] [place] Diagnoses Centrilobular emphysema (HCC) Procedures SPIROMETRY - BASELINE AND POST DILATOR BRNCDILAT RSPSE SPMTRY PRE&POST[place] [address] [place] [address] [address] Referral ID Status Reason Start Date Expiration Date V isits Requested Visits Authorized [id number] Closed Auto-Generate d Referral 05/20/2021 06/19/2022 1 1 Specialty Diagnoses / Procedures Referred By Lyric toro Referred To Contact [facility] [place] Diagnoses Severe persistent asthma without complication Procedures NITRIC OXIDE, EXHALED NITRIC OXIDE GAS DETERMINATION Darryl Willis MD [address] [place] [address] [address] Referral ID Status Reason Start Date Expiration Date Visits Requested Visits Authorized [id number] Pending Review Auto-Generat ed Referral 05/20/2021 06/19/2022 1 1 Reason Comments New Specialty Diagnoses / Procedures Referred By Lyric t Referred To Contact Pulmonary and Critical Care Medicine Diagnoses Lung transplant candidate SOB (shortness of breath) care home current use of systemic steroids Procedures CONSULT TO PULM/CRITICAL CARE OFFICE/OUTPATIENT NEW HIGH MDM 60-74 MINUTES Domi Cordoba MD [address] [place] [address] Referral ID Status Reason Start Date Expiration Date V isits Requested Visits Authorized [id number] Closed PCP Requested Referral 04/27/2021 04/13/2022 1 1 Reason Comments Recheck Reason Comments Returning phone call Reason Onset Date Comments Procedure 07/22/2021 Manometry Esopha geal Ph Probe Placement 07/22/2021 24 Hour pH Pr obe Insert Reason Comments Medication Preauthorization Dupixent - N ew Start Specialty Diagnoses / Procedures Referred By Lyric t Referred To Contact TRANSPLANT Diagnoses Chronic obstructive pulmonary disease, unspecified COPD type (HCC) Procedures CONSULT TO TRANSPLANT CENTER NEW PATIENT VISIT LEVEL 5 DXA BONE DENSITY AXIAL 1+ SITES FLUOROSCOPE EXAMINATION MANOMETRY ESOPHAGEAL ESOPHAGRAM L HRT CATH W/NJX L VENTRICULOGRAPHY IMG S&I RIGHT HEART CATHETERIZATION RADIOLOGIC EXAM CHEST 4+ VIEWS CAT SCAN OF CHEST COMBO PULMONARY VENTILATION & PERFUSION IMAGING ULTRASOUND-ABDOMINAL PC CT MAXLFCL AREA C-MATRL CAROTID ULTRASOUND, COMPLETE PVR OF EXTREMITIES TUMOR IMAGING PET-LTD AREA-CHEST/HEAD/NEC CT ABD & PELVIS W/O CONTRAST SPIROMETRY WO BRONCHODILATOR PULMONARY STRESS TESTING,COMPLEX DIFFUSING CAPACITY BLOOD GAS MIXED WO O2 SAT GAS DILUT/WASHOUT LUNG VOL W/WO DISTRIB VENT&VOL PLETHYSMOGRAPHY LUNG VOLUMES W/WO AIRWAY RESIST THER/PROPH/DIAG INJ, SC/IM QUANT DIFFERENTIAL PULM PERFUSION W/WO IMAGING DOPPLER ECHO HEART,COMPLETE CT ABD & PELVIS W/O CONTRAST Shukri Juárez MD [address] [place] [address] [facility] Main [address] [address] Reason Comments Radiology NM Specialty Diagnoses / Procedures Referred By Lyric t Referred To Contact MOLECULAR & FUNCTIONAL IMAGING Diagnoses Encounter for pre-transplant evaluation for lung transplant Lung transplant candidate SOB (shortness of breath) care home current use of systemic steroids Procedures NM GASTRIC EMPTYING SOLID GASTRIC EMPTYING STUDY Domi Cordoba MD [address] [place] [address] Molecular & Functional Imaging [address] [place] [address] Referral ID Status Reason Start Date Expiration Date V isits Requested Visits Authorized [id number] Closed Auto-Generate d Referral 07/13/2021 05/13/2022 1 1 Reason Comments Returning Patient's Call Reason Comments dupilumab injection Reason Comments Established Patient 4 month follow up [place] PD Reason Comments dupixent scheduling Reason Comments Imm/Inj Dupixent injection Reason Comments DUPIXENT INJECTION Reason Comments Imm/Inj Dupixent Injection Reason Onset Date Comments Refill Request 09/17/2021 Reason Comments dupixent injection Reason Comments Appointment Hi Manda, this pt ;s called me for a f/u appt. Not sure why it was not scheduled as a follow up ; will do a virtual with him on 11/20. Emmie Reason Onset Date Comments Refill Request 11/16/2021 Specialty Diagnoses / Procedures Referred By Lyric toro Referred To Contact [facility] Diagnoses Wheezing Lung transplant candidate SOB (shortness of breath) care home current use of systemic steroids Procedures SIX MINUTE WALK CARDIOPULMONARY [place] [address] [place], [place] [id number] [address] [address] Referral ID Status Reason Start Date Expiration Date V isits Requested Visits Authorized [id number] Closed Auto-Generate d Referral 11/12/2021 09/11/2022 1 1 Specialty Diagnoses / Procedures Referred By Lyric toro Referred To Contact [facility] Diagnoses Wheezing Lung transplant candidate 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 Procedures ARTERIAL BLOOD GAS, ROOM AIR GASES BLOOD PH DIRECT VANESA XCPT PULSE OXIMITRY Wilbert Umanzor MD [address] [place] [address] [address] Referral ID Status Reason Start Date Expiration Date V isits Requested Visits Authorized [id number] Closed Auto-Generate d Referral 11/12/2021 09/11/2022 1 1 Reason Comments Pre-Lung Tx F/U Reason Comments Refill Request Reason Comments Follow Up Reason Comments Established Patient COPD Reason Comments Opened In Error Reason Onset Date Comments Refill Request 02/16/2022 Specialty Diagnoses / Procedures Referred By Lyric t Referred To Contact Cardiology Diagnoses Acute bronchitis with chronic obstructive pulmonary disease (COPD) (HCC) Hypertensive chronic kidney disease with stage 1 through stage 4 chronic kidney disease, or unspecified chronic kidney disease Lung transplant candidate SOB (shortness of breath) care home current use of systemic steroids Procedures CONSULT TO CARDIOLOGY OFFICE/OUTPATIENT [facility] 60-74 MINUTES Wilbert Umanzor MD [address] [facility] [place] [address] Referral ID Status Reason Start Date Expiration Date V isits Requested Visits Authorized [id number] Closed PCP Requested Referral 02/24/2022 01/25/2023 1 1 Reason Comments Assessment Patient Education Specialty Diagnoses / Procedures Referred By Lyric toro Referred To Contact Nutrition Diagnoses Acute bronchitis with chronic obstructive pulmonary disease (COPD) (HCC) Hypertensive chronic kidney disease with stage 1 through stage 4 chronic kidney disease, or unspecified chronic kidney disease Procedures CONSULT TO NUTRITION THERAPY OFFICE/OUTPATIENT [facility] 60-74 MINUTES Wilbert Umanzor MD [address] [place] [address] Referral ID Status Reason Start Date Expiration Date V isits Requested Visits Authorized [id number] Closed PCP Requested Referral 01/25/2022 01/25/2023 1 1 Reason Comments Education Of Patient/family Reason Comments Medication Refill Specialty Diagnoses / Procedures Referred By Lyric toro Ref[facility] Diagnoses Transplant Chronic obstructive pulmonary disease, unspecified COPD type (HCC) Encounter for pre-transplant evaluation for lung transplant Lung transplant candidate 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 Procedures ARTERIAL BLOOD GAS, ROOM AIR GASES BLOOD PH DIRECT VANESA XCPT PULSE OXIMITRY Wilbert Umanzor MD [address] [facility] [place] [address] [facility] [place] [address] [place] [address] Referral ID Status Reason Start Date Expiration Date V isits Requested Visits Authorized [id number] Closed Auto-Generate d Referral 11/18/2021 12/18/2022 1 1 Specialty Diagnoses / Procedures Referred By Lyric toro Ref[facility] To Contact [facility] Diagnoses Transplant Chronic obstructive pulmonary disease, unspecified COPD type (HCC) Encounter for pre-transplant evaluation for lung transplant Lung transplant candidate SOB (shortness of breath) care home current use of systemic steroids Procedures SPIROMETRY BASELINE ONLY SPMTRY W/VC EXPIRATORY YAMEL W/WO MXML VOL VNTJ Wilbert Umanzor MD [address] [place] [address] [facility] [place] [address] [place] [address] Referral ID Status Reason Start Date Expiration Date V isits Requested Visits Authorized [id number] Closed Auto-Generate d Referral 11/18/2021 12/18/2022 1 1 Specialty Diagnoses / Procedures Referred By Lyric toro Referred To [facility] Diagnoses Transplant Chronic obstructive pulmonary disease, unspecified COPD type (HCC) Encounter for pre-transplant evaluation for lung transplant Lung transplant candidate 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 Procedures SIX MINUTE WALK CARDIOPULMONARY [place] [address] [place] [address] [place] [address] Referral ID Status Reason Start Date Expiration Date V isits Requested Visits Authorized [id number] Closed Auto-Generate d Referral 11/18/2021 12/18/2022 1 1 Specialty Diagnoses / Procedures Referred By Lyric toro Referred To Contact Cardiac Surg Diagnoses Transplant Chronic obstructive pulmonary disease, unspecified COPD type (HCC) Encounter for pre-transplant evaluation for lung transplant Lung transplant candidate 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 Procedures CARDIOTHORACIC PREOP EVALUATION OFFICE/OUTPATIENT [facility] MDM 60-74 MINUTES Wilbert Umanzor MD [address] [place] [address] Referral ID Status Reason Start Date Expiration Date V isits Requested Visits Authorized [id number] Closed PCP Requested Referral 11/18/2021 11/18/2022 1 1 Specialty Diagnoses / Procedures Referred By Lyric toro Referred To Contact Diagnoses Transplant Chronic obstructive pulmonary disease, unspecified COPD type (HCC) Encounter for pre-transplant evaluation for lung transplant Lung transplant candidate 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 Procedures CONSULT TO ENDO METABOLIC BONE OFFICE/OUTPATIENT [facility] 60-74 MINUTES Wilbert Umanzor MD [address] [facility] [place] [address] Referral ID Status Reason Start Date Expiration Date V isits Requested Visits Authorized [id number] Closed PCP Requested Referral 11/18/2021 11/18/2022 1 1 Reason Comments Consult Transplant Evaluation Specialty Diagnoses / Procedures Referred By Lyric t Referred To Contact Infectious Diseases Diagnoses Acute bronchitis with chronic obstructive pulmonary disease (COPD) (HCC) Hypertensive chronic kidney disease with stage 1 through stage 4 chronic kidney disease, or unspecified chronic kidney disease Lung transplant candidate SOB (shortness of breath) care home current use of systemic steroids Procedures CONSULT TO INFECTIOUS DISEASES OFFICE/OUTPATIENT [facility] 60-74 MINUTES Wilbert Umanzor MD [address] [facility] [place] [phone] Referral ID Status Reason Start Date Expiration Date V isits Requested Visits Authorized [id number] Closed PCP Requested Referral 02/24/2022 01/25/2023 1 1 Reason Comments Pre Lung TXP Evaluation Specialty Diagnoses / Procedures Referred By Lyric toro Referred To Contact Diagnoses Acute bronchitis with chronic obstructive pulmonary disease (COPD) (HCC) Hypertensive chronic kidney disease with stage 1 through stage 4 chronic kidney disease, or unspecified chronic kidney disease Lung transplant candidate SOB (shortness of breath) care home current use of systemic steroids Procedures CONSULT TO HEPATOLOGY OFFICE/OUTPATIENT [facility] 60-74 MINUTES Wilbert Umanzor MD [address] [facility] [place] [address] Referral ID Status Reason Start Date Expiration Date V isits Requested Visits Authorized [id number] Closed PCP Requested Referral 02/24/2022 01/25/2023 1 1 Reason Onset Date Comments Refill Request 05/26/2022 Specialty Diagnoses / Procedures Referred By Lyric t Referred To [facility] Diagnoses Lung transplant candidate 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 Procedures SPIROMETRY BASELINE ONLY SPMTRY W/VC EXPIRATORY YAMEL W/WO MXML VOL VNTJ Wilbert Umanzor MD [address] [facility] [place] [address] [facility] [place] [address] [place] [address] Referral ID Status Reason Start Date Expiration Date V isits Requested Visits Authorized [id number] Closed Auto-Generate d Referral 05/25/2022 04/02/2023 1 1 Specialty Diagnoses / Procedures Referred By Lyric t Referred To Contact [facility] Diagnoses Lung transplant candidate 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 JUDITH 20.3297 Reason Comments prior authorization will be needed on Reason Comments Home Care Confirmation Call Reason Comments Home Care Admission to home ca re services. Reason Comments D/C Summary Events Reason Comments Home Care PT Unmade Visit Reason Comments Lung Transplant Follow Up Specialty Diagnoses / Procedures Referred By Lyric t Referred To Contact HOSP INPATIENT Diagnoses Lung transplant planned COPD (chronic obstructive pulmonary disease) (HCC) Procedures [address] [place] [address] IP/OBS CARE HIGH MDM 75 MINUTES Hosp Main J516 [address] [place] [id number] Reason Comments Research IRB # [id number] [facility] Lung Transplant Biorepository Reason Comments Results Reason Comments Home Care PT Eval, Pulmonary R ehab Reason Comments Results A0B0 Reason Comments Home Care Delay of OT call Reason Onset Date Comments Procedure 08/16/2022 Manometry Esopha geal Specialty Diagnoses / Procedures Referred By Lyric t Referred To Contact [facility] Diagnoses Dyspepsia Lung replaced by transplant ([facility]) Procedures MANOMETRY ESOPHAGEAL ESOPHAGEAL MOTILITY STUDY W/INTERP&RPT Wilbert Umanzor MD [address] [place] [address] [facility] [place] [address] [place] [address] Referral ID Status Reason Start Date Expiration Date V isits Requested Visits Authorized [id number] Closed Auto-Generate d Referral 08/11/2022 08/12/2023 1 1 Specialty Diagnoses / Procedures Referred By Contac t Referred To Contact MOLECULAR & FUNCTIONAL IMAGING Diagnoses Dyspepsia 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) Procedures NM GASTRIC EMPTYING SOLID GASTRIC EMPTYING STUDY Wilbert Umanzor MD [address] [place] [address] Molecular & Functional Imaging [address] [place] [address] Referral ID Status Reason Start Date Expiration Date V isits Requested Visits Authorized [id number] Closed Auto-Generate d Referral 08/11/2022 09/10/2023 1 1 Specialty Diagnoses / Procedures Referred By Teeteeac t Referred To Contact [facility] Diagnoses 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) Procedures SPIROMETRY BASELINE ONLY SPMTRY W/VC EXPIRATORY YAMEL W/WO MXML VOL VNTJ Wilbert Umanzor MD [address] [place] [address] [facility] [place] [address] [place] [address] Referral ID Status Reason Start Date Expiration Date V isits Requested Visits Authorized [id number] Closed Auto-Generate d Referral 08/25/2022 09/17/2023 1 1 Reason Comments Established Patient Lung Transplant Follow Up Reason Onset Date Comments Refill Request 09/02/2022 Reason Comments Research IRB # [id number] [facility] Lung Transplant Biorepository Reason Comments A0B0 Reason Comments Orders Reason Comments Medication Problem Specialty Diagnoses / Procedures Referred By Contac t Referred To Contact [facility] Diagnoses 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) Other chronic pain Procedures SPIROMETRY BASELINE ONLY SPMTRY W/VC EXPIRATORY YAMEL W/WO MXML VOL VNTWilbert Ash MD [address] [place] [address] [facility] [place] [address] [place] [address] Referral ID Status Reason Start Date Expiration Date V isits Requested Visits Authorized [id number] Closed Auto-Generate d Referral 10/04/2022 10/01/2023 1 1 Reason Comments Established Patient Lung Transplant Follow Up Specialty Diagnoses / Procedures Referred By Contact Referred To Contact [facility] Diagnoses Lung transplant recipient ([facility]) Aftercare following organ transplant Human immunodeficiency virus (HIV) disease ([facility]) Encounter for monitoring tacrolimus therapy Essential hypertension Hyperlipidemia, unspecified hyperlipidemia type Gastroesophageal reflux disease without esophagitis Steroid-induced osteopenia Obesity, Class II, BMI 35-39.9 Methicillin resistant Staphylococcus aureus colonization Procedures SPIROMETRY BASELINE ONLY SPMTRY W/VC EXPIRATORY YAMEL W/WO MXML VOL VNTJ Osbaldo Magallanes MD [address] [place] [address] [address] Referral ID Status Reason Start Date Expiration Date V isits Requested Visits Authorized [id number] Closed Auto-Generate d Referral 10/20/2022 11/03/2023 1 1 Reason Comments Established Patient Lung Transplant Follow Up Reason Comments Stop Vori Rx Refills Reason Comments Med Management Question Reason Comments Appointment Reason Comments Radio GI Main HB6 Specialty Diagnoses / Procedures Referred By Contac t Referred To Contact XR IMAGING Diagnoses Achalasia Procedures XR ESOPHAGRAM RADIOLOGIC EXAM ESOPHAGUS SINGLE CONTRAST STUDY Jose Hackett MD [address] [place] [address] Xr Imaging [place] [address] Referral ID Status Reason Start Date Expiration Date V isits Requested Visits Authorized [id number] Closed Auto-Generate d Referral 10/04/2022 11/03/2023 1 1 Specialty Diagnoses / Procedures Referred By Contac t Referred To Contact [facility] Diagnoses Lung transplant recipient (HCC) Aftercare following organ transplant Encounter for monitoring tacrolimus therapy Essential hypertension Gastroesophageal reflux disease without esophagitis Pure hypertriglyceridemia 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 Procedures SPIROMETRY BASELINE ONLY SPMTRY W/VC EXPIRATORY YAMEL W/WO MXML VOL VNTJ Shay Florentino MD [address] [place] [address] [facility] [place] [address] [place] [address] Referral ID Status Reason Start Date Expiration Date V isits Requested Visits Authorized [id number] Closed Auto-Generate d Referral 12/01/2022 11/20/2023 1 1 Reason Comments Bronchoscopy Scheduling Reason Comments Return Call Request Cough Reason Comments Follow Up Returning Patient's Call Reason Comments Covid Positive Reason Comments Cataract Evaluation Blurred Vision Both Eyes Difficulty Reading Both Eyes Glare Reason Comments pre op bronch Holding slot on 04/19. Sending message to see if I can add on additional bronch. Specialty Diagnoses / Procedures Referred By Contact Referred To Contact [facility] Diagnoses Aftercare following organ transplant S/P lung transplant (HCC) Encounter for monitoring tacrolimus therapy Essential hypertension Hyperlipidemia, unspecified hyperlipidemia type Steroid-induced osteopenia Gastroesophageal reflux disease without esophagitis Procedures SPIROMETRY BASELINE ONLY SPMTRY W/VC EXPIRATORY YAMEL W/WO MXML VOL VNTJ Osbaldo Magallanes MD [address] [place] [address] [facility] [place] [address] [place] [address] Referral ID Status Reason Start Date Expiration Date V isits Requested Visits Authorized [id number] Closed Auto-Generate d Referral 04/20/2023 02/16/2024 1 1 Reason Comments Established Patient Reason Comments Blurred Vision Both Eyes Difficulty Reading Both Eyes Glare Both Eyes Reason Comments Post-op Cataract OD 04/28/2023 Cataract Follow Up Left eye Reason Comments Post-op Cataract OS Cataract surgery Reason Comments Establish Care Specialty Diagnoses / Procedures Referred By Lyric toro Referred To Contact Gastroenterology Diagnoses Colon cancer screening Procedures Colonoscopy Screening; Average Risk Patient [place] COLONOSCOPY FLX DX W/COLLJ SPEC WHEN PFRMD [place] COLON CA SCRN NOT HI RSK IND [place] COLORECTAL SCRN; HI RISK IND [place] COLONOSCOPY W/BIOPSY SINGLE/MULTIPLE [place] COLSC FLX W/RMVL OF TUMOR POLYP LESION SNARE TQ [place] COLSC FLX W/REMOVAL LESION BY HOT BX FORCEPS Consuelo Leahy, DO [address] [facility], [facility] [address] [place] [address] Referral ID Status Reason Start Date Expiration Date V isits Requested Visits Authorized [id number] Authorized 02/11/2023 02/11/2024 1 1 Specialty Diagnoses / Procedures Referred By Lyric t Referred To Contact [facility] Diagnoses Aftercare following organ transplant S/P lung transplant (HCC) Encounter for monitoring tacrolimus therapy Essential hypertension Hyperlipidemia, unspecified hyperlipidemia type Gastroesophageal reflux disease without esophagitis Steroid-induced osteopenia Procedures SPIROMETRY BASELINE ONLY SPMTRY W/VC EXPIRATORY YAMEL W/WO MXML VOL VNTJ Osbaldo Magallanes MD [address] [place] [address] [address] Referral ID Status Reason Start Date Expiration Date V isits Requested Visits Authorized [id number] Closed Auto-Generate d Referral 07/21/2023 05/18/2024 1 1 Reason Comments Review Of Studies Informed Consent IRB# [id number] A Rando mized Trial of Cryoprobe Versus Forceps for Transbronchial Biopsy (FROSTBITE-II) Reason Comments + Aspergillus Reason Comments Rx Refills Reason Onset Date Comments Refill Request 08/04/2023 Reason Onset Date Comments Refill Request 08/15/2023 Reason Comments Med Management Reason Comments Research F/U IRB# [id number] A Rando mized Trial of the Cryoprobe Versus Forceps for Transbronchial Biopsy (FROSTBITE-2) Reason Onset Date Comments Refill Request 08/26/2023 Reason Comments Return Call Request Returning Patient's Call Reason Comments Established Patient Post transplant 07/27 22 Reason Comments Anxiety Reason Comments Medication Question Specialty Diagnoses / Procedures Referred By Lyric t Referred To Contact [facility] Diagnoses 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) Procedures SPIROMETRY BASELINE ONLY SPMTRY W/VC EXPIRATORY YAMEL W/WO MXML VOL VNTJ Viviane Curtis MD [address] [place] [address] [facility] [place] [address] [place] [address] Referral ID Status Reason Start Date Expiration Date V isits Requested Visits Authorized [id number] Closed Auto-Generate d Referral 10/26/2023 08/19/2024 1 1 Reason Comments Lung Transplant Follow Up Reason Comments New Patient Evaluation Specialty Diagnoses / Procedures Referred By Lyric t Referred To Contact CT IMAGING Diagnoses Follow-up examination after lung transplant (HCC) Procedures CT CHEST WO IVCON DIAGNOSTIC COMPUTED TOMOGRAPHY THORAX W/O CNTRST Viviane Curtis MD [address] [place] [address] Ct Imaging [place] [address] Referral ID Status Reason Start Date Expiration Date V isits Requested Visits Authorized [id number] Closed Auto-Generate d Referral 11/10/2023 08/24/2024 1 1 Reason Comments pre op bronch Scheduled and confir med with patient. Reason Comments Follow Up Specialty Diagnoses / Procedures Referred By Contac t Referred To Contact Orthopedics Diagnoses Acute pain of right knee Procedures CONSULT TO ORTHOPAEDICS OFFICE/OUTPATIENT [facility] 60 MINUTES Keshav Phillips, ANA LAURA.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 MANAGER [address] [place] [address] Referral ID Status Reason Start Date Expiration Date V isits Requested Visits Authorized [id number] Closed PCP Requested Referral 01/03/2024 01/02/2025 1 1 Specialty Diagnoses / Procedures Referred By Contac t Referred To Contact [facility] Diagnoses Aftercare following organ transplant S/P lung transplant (HCC) Encounter for monitoring tacrolimus therapy Essential hypertension Mixed hyperlipidemia Steroid-induced osteopenia Gastroesophageal reflux disease without esophagitis Procedures SPIROMETRY BASELINE ONLY SPMTRY W/VC EXPIRATORY YAMEL W/WO MXML VOL VNTJ Osbaldo Magallanes MD [address] [place] [address] [facility] [place] [address] [place] [address] Referral ID Status Reason Start Date Expiration Date V isits Requested Visits Authorized [id number] Closed Auto-Generate d Referral 01/19/2024 11/30/2024 1 1 Reason Comments Research IRB # [id number] [facility] Lung Transplant Biorepository Reason Comments Lung Transplant Follow Up Reason Comments Patient Question Reason Comments Erroneous encounter-disregard Reason Comments Return Call Request Question Returning Patient's Call Reason Comments Right Knee Pain Specialty Diagnoses / Procedures Referred By Contac t Referred To Contact [facility] Diagnoses Aftercare following organ transplant S/P lung transplant (HCC) Encounter for monitoring tacrolimus therapy Essential hypertension Mixed hyperlipidemia Steroid-induced osteopenia Gastroesophageal reflux disease without esophagitis Obesity, Class II, BMI 35-39.9 Procedures SPIROMETRY BASELINE ONLY SPMTRY W/VC EXPIRATORY YAMEL W/WO MXML VOL VNTJ Osbaldo Magallanes MD [address] [place] [address] Phone: tel: fax: [facility] [place] [address] [place] [address] Referral ID Status Reason Start Date Expiration Date V isits Requested Visits Authorized [id number] Closed Auto-Generate d Referral 04/24/2024 02/10/2025 1 1 Reason Onset Date Comments Refill Request 05/10/2024 Reason Onset Date Comments Population Health Navigation Outreach 06/11/2024 [place]/Workbench/[facility]O Specialty Diagnoses / Procedures Referred By Contac t Referred To Contact [facility] Diagnoses Aftercare following organ transplant S/P lung transplant (HCC) Encounter for monitoring tacrolimus therapy Essential hypertension Mixed hyperlipidemia Steroid-induced osteopenia Gastroesophageal reflux disease without esophagitis Procedures SPIROMETRY BASELINE ONLY SPMTRY W/VC EXPIRATORY YAMEL W/WO MXML VOL VNTOsbaldo Parson MD [address] [place] [address] Phone: tel: fax: [facility] [place] [address] [place] [address] Referral ID Status Reason Start Date Expiration Date V isits Requested Visits Authorized [id number] Closed Auto-Generate d Referral 07/19/2024 05/17/2025 1 1 Reason Comments Medical Records Dermatology appointm ent Reason Comments Medicare Wellness Exam Reason Onset Date Comments Refill Request 09/05/2024 Reason Comments Urgent - Standing Lab Orders Needed Reason Comments New Surgery consult Reason Onset Date Comments Population Health Navigation Outreach 09/26/2024 [place]/Workbench/[facility]O Reason Comments PT Eval Specialty Diagnoses / Procedures Referred By Contac t Referred To Contact [facility] Diagnoses Primary osteoarthritis of right knee Procedures PHYSICAL THERAPY EVALUATION HIGH COMPLEX 45 MINS THERAPEUTIC EXERCISES RE, EA 15 MIN. Moon Tomlinson DO [address] [place] [address] Phone: tel: fax: [facility] [address] [place] [id number] Referral ID Status Reason Start Date Expiration Date Visits Requested Visits Authorized [id number] Authorized PCP Requested Referral Auto-Generate d Referral 02/08/2024 02/06/2025 99 99 Reason Comments Standing Labs Reason Comments Diarrhea Reason Comments Diarrhea X 3 weeks Reason Onset Date Comments Results 10/18/2024 Reason Comments External Referrals/resources Physical Th erajimmy ([place]) Source Comments (unrecognize d section and content) In the event this informatio n is protected by the Federal Confidentiality of Alcohol and Drug Abuse Patient Records regulations: The Federal rules restrict any use of the information to criminally investigate or prosecute any alcohol or drug abuse patient.[facility]In the event this information is protected by the Federal Confidentiality of Alcohol and Drug Abuse Patient Records regulations: The Federal rules restrict any use of the information to criminally investigate or prosecute any alcohol or drug abuse patient.[facility]In the event this information is protected by the Federal Confidentiality of Alcohol and Drug Abuse Patient Records regulations: The Federal rules restrict any use of the information to criminally investigate or prosecute any alcohol or drug abuse patient.[facility]In the event this information is protected by the Federal Confidentiality of Alcohol and Drug Abuse Patient Records regulations: The Federal rules restrict any use of the information to criminally investigate or prosecute any alcohol or drug abuse patient.[facility] HospitalIn the event this information is protected by the Federal Confidentiality of Alcohol and Drug Abuse Patient Records regulations: The Federal rules restrict any use of the information to criminally investigate or prosecute any alcohol or drug abuse patient.[facility] HospitalIn the event this information is protected by the Federal Confidentiality of Alcohol and Drug Abuse Patient Records regulations: The Federal rules restrict any use of the information to criminally investigate or prosecute any alcohol or drug abuse patient.[facility] HospitalIn the event this information is protected by the Federal Confidentiality of Alcohol and Drug Abuse Patient Records regulations: The Federal rules restrict any use of the information to criminally investigate or prosecute any alcohol or drug abuse patient.[facility] HospitalIn the event this information is protected by the Federal Confidentiality of Alcohol and Drug Abuse Patient Records regulations: The Federal rules restrict any use of the information to criminally investigate or prosecute any alcohol or drug abuse patient.[facility] HospitalIn the event this information is protected by the Federal Confidentiality of Alcohol and Drug Abuse Patient Records regulations: The Federal rules restrict any use of the information to criminally investigate or prosecute any alcohol or drug abuse patient.[facility] HospitalIn the event this information is protected by the Federal Confidentiality of Alcohol and Drug Abuse Patient Records regulations: The Federal rules restrict any use of the information to criminally investigate or prosecute any alcohol or drug abuse patient.[facility] HospitalIn the event this information is protected by the Federal Confidentiality of Alcohol and Drug Abuse Patient Records regulations: The Federal rules restrict any use of the information to criminally investigate or prosecute any alcohol or drug abuse patient.[facility] HospitalIn the event this information is protected by the Federal Confidentiality of Alcohol and Drug Abuse Patient Records regulations: The Federal rules restrict any use of the information to criminally investigate or prosecute any alcohol or drug abuse patient.[facility] HospitalIn the event this information is protected by the Federal Confidentiality of Alcohol and Drug Abuse Patient Records regulations: The Federal rules restrict any use of the information to criminally investigate or prosecute any alcohol or drug abuse patient.[facility] HospitalIn the event this information is protected by the Federal Confidentiality of Alcohol and Drug Abuse Patient Records regulations: The Federal rules restrict any use of the information to criminally investigate or prosecute any alcohol or drug abuse patient.[facility] HospitalIn the event this information is protected by the Federal Confidentiality of Alcohol and Drug Abuse Patient Records regulations: The Federal rules restrict any use of the information to criminally investigate or prosecute any alcohol or drug abuse patient.[facility] HospitalIn the event this information is protected by the Federal Confidentiality of Alcohol and Drug Abuse Patient Records regulations: The Federal rules restrict any use of the information to criminally investigate or prosecute any alcohol or drug abuse patient.[facility] HospitalIn the event this information is protected by the Federal Confidentiality of Alcohol and Drug Abuse Patient Records regulations: The Federal rules restrict any use of the information to criminally investigate or prosecute any alcohol or drug abuse patient.[facility] HospitalIn the event this information is protected by the Federal Confidentiality of Alcohol and Drug Abuse Patient Records regulations: The Federal rules restrict any use of the information to criminally investigate or prosecute any alcohol or drug abuse patient.[facility] HospitalIn the event this information is protected by the Federal Confidentiality of Alcohol and Drug Abuse Patient Records regulations: The Federal rules restrict any use of the information to criminally investigate or prosecute any alcohol or drug abuse patient.[facility] HospitalIn the event this information is protected by the Federal Confidentiality of Alcohol and Drug Abuse Patient Records regulations: The Federal rules restrict any use of the information to criminally investigate or prosecute any alcohol or drug abuse patient.[facility] HospitalIn the event this information is protected by the Federal Confidentiality of Alcohol and Drug Abuse Patient Records regulations: The Federal rules restrict any use of the information to criminally investigate or prosecute any alcohol or drug abuse patient.[facility] HospitalIn the event this information is protected by the Federal Confidentiality of Alcohol and Drug Abuse Patient Records regulations: The Federal rules restrict any use of the information to criminally investigate or prosecute any alcohol or drug abuse patient.[facility] HospitalIn the event this information is protected by the Federal Confidentiality of Alcohol and Drug Abuse Patient Records regulations: The Federal rules restrict any use of the information to criminally investigate or prosecute any alcohol or drug abuse patient.[facility] HospitalIn the event this information is protected by the Federal Confidentiality of Alcohol and Drug Abuse Patient Records regulations: The Federal rules restrict any use of the information to criminally investigate or prosecute any alcohol or drug abuse patient.[facility] HospitalIn the event this information is protected by the Federal Confidentiality of Alcohol and Drug Abuse Patient Records regulations: The Federal rules restrict any use of the information to criminally investigate or prosecute any alcohol or drug abuse patient.[facility] HospitalIn the event this information is protected by the Federal Confidentiality of Alcohol and Drug Abuse Patient Records regulations: The Federal rules restrict any use of the information to criminally investigate or prosecute any alcohol or drug abuse patient.[facility] HospitalIn the event this information is protected by the Federal Confidentiality of Alcohol and Drug Abuse Patient Records regulations: The Federal rules restrict any use of the information to criminally investigate or prosecute any alcohol or drug abuse patient.[facility] HospitalIn the event this information is protected by the Federal Confidentiality of Alcohol and Drug Abuse Patient Records regulations: The Federal rules restrict any use of the information to criminally investigate or prosecute any alcohol or drug abuse patient.[facility] HospitalIn the event this information is protected by the Federal Confidentiality of Alcohol and Drug Abuse Patient Records regulations: The Federal rules restrict any use of the information to criminally investigate or prosecute any alcohol or drug abuse patient.[facility] HospitalIn the event this information is protected by the Federal Confidentiality of Alcohol and Drug Abuse Patient Records regulations: The Federal rules restrict any use of the information to criminally investigate or prosecute any alcohol or drug abuse patient.[facility] HospitalIn the event this information is protected by the Federal Confidentiality of Alcohol and Drug Abuse Patient Records regulations: The Federal rules restrict any use of the information to criminally investigate or prosecute any alcohol or drug abuse patient.[facility] HospitalIn the event this information is protected by the Federal Confidentiality of Alcohol and Drug Abuse Patient Records regulations: The Federal rules restrict any use of the information to criminally investigate or prosecute any alcohol or drug abuse patient.[facility] HospitalIn the event this information is protected by the Federal Confidentiality of Alcohol and Drug Abuse Patient Records regulations: The Federal rules restrict any use of the information to criminally investigate or prosecute any alcohol or drug abuse patient.[facility] HospitalIn the event this information is protected by the Federal Confidentiality of Alcohol and Drug Abuse Patient Records regulations: The Federal rules restrict any use of the information to criminally investigate or prosecute any alcohol or drug abuse patient.[facility] HospitalIn the event this information is protected by the Federal Confidentiality of Alcohol and Drug Abuse Patient Records regulations: The Federal rules restrict any use of the information to criminally investigate or prosecute any alcohol or drug abuse patient.[facility] HospitalIn the event this information is protected by the Federal Confidentiality of Alcohol and Drug Abuse Patient Records regulations: The Federal rules restrict any use of the information to criminally investigate or prosecute any alcohol or drug abuse patient.[facility] HospitalIn the event this information is protected by the Federal Confidentiality of Alcohol and Drug Abuse Patient Records regulations: The Federal rules restrict any use of the information to criminally investigate or prosecute any alcohol or drug abuse patient.[facility] HospitalIn the event this information is protected by the Federal Confidentiality of Alcohol and Drug Abuse Patient Records regulations: The Federal rules restrict any use of the information to criminally investigate or prosecute any alcohol or drug abuse patient.[facility] HospitalIn the event this information is protected by the Federal Confidentiality of Alcohol and Drug Abuse Patient Records regulations: The Federal rules restrict any use of the information to criminally investigate or prosecute any alcohol or drug abuse patient.[facility] HospitalIn the event this information is protected by the Federal Confidentiality of Alcohol and Drug Abuse Patient Records regulations: The Federal rules restrict any use of the information to criminally investigate or prosecute any alcohol or drug abuse patient.[facility] HospitalIn the event this information is protected by the Federal Confidentiality of Alcohol and Drug Abuse Patient Records regulations: The Federal rules restrict any use of the information to criminally investigate or prosecute any alcohol or drug abuse patient.[facility] HospitalIn the event this information is protected by the Federal Confidentiality of Alcohol and Drug Abuse Patient Records regulations: The Federal rules restrict any use of the information to criminally investigate or prosecute any alcohol or drug abuse patient.[facility] HospitalIn the event this information is protected by the Federal Confidentiality of Alcohol and Drug Abuse Patient Records regulations: The Federal rules restrict any use of the information to criminally investigate or prosecute any alcohol or drug abuse patient.[facility] HospitalIn the event this information is protected by the Federal Confidentiality of Alcohol and Drug Abuse Patient Records regulations: The Federal rules restrict any use of the information to criminally investigate or prosecute any alcohol or drug abuse patient.[facility] HospitalIn the event this information is protected by the Federal Confidentiality of Alcohol and Drug Abuse Patient Records regulations: The Federal rules restrict any use of the information to criminally investigate or prosecute any alcohol or drug abuse patient.[facility] HospitalIn the event this information is protected by the Federal Confidentiality of Alcohol and Drug Abuse Patient Records regulations: The Federal rules restrict any use of the information to criminally investigate or prosecute any alcohol or drug abuse patient.[facility]In the event this information is protected by the Federal Confidentiality of Alcohol and Drug Abuse Patient Records regulations: The Federal rules restrict any use of the information to criminally investigate or prosecute any alcohol or drug abuse patient.[facility] HospitalIn the event this information is protected by the Federal Confidentiality of Alcohol and Drug Abuse Patient Records regulations: The Federal rules restrict any use of the information to criminally investigate or prosecute any alcohol or drug abuse patient.[facility] HospitalIn the event this information is protected by the Federal Confidentiality of Alcohol and Drug Abuse Patient Records regulations: The Federal rules restrict any use of the information to criminally investigate or prosecute any alcohol or drug abuse patient.[facility] HospitalIn the event this information is protected by the Federal Confidentiality of Alcohol and Drug Abuse Patient Records regulations: The Federal rules restrict any use of the information to criminally investigate or prosecute any alcohol or drug abuse patient.[facility]In the event this information is protected by the Federal Confidentiality of Alcohol and Drug Abuse Patient Records regulations: The Federal rules restrict any use of the information to criminally investigate or prosecute any alcohol or drug abuse patient.[facility]In the event this information is protected by the Federal Confidentiality of Alcohol and Drug Abuse Patient Records regulations: The Federal rules restrict any use of the information to criminally investigate or prosecute any alcohol or drug abuse patient.[facility]In the event this information is protected by the Federal Confidentiality of Alcohol and Drug Abuse Patient Records regulations: The Federal rules restrict any use of the information to criminally investigate or prosecute any alcohol or drug abuse patient.[facility]In the event this information is protected by the Federal Confidentiality of Alcohol and Drug Abuse Patient Records regulations: The Federal rules restrict any use of the information to criminally investigate or prosecute any alcohol or drug abuse patient.[facility]In the event this information is protected by the Federal Confidentiality of Alcohol and Drug Abuse Patient Records regulations: The Federal rules restrict any use of the information to criminally investigate or prosecute any alcohol or drug abuse patient.[facility] HospitalIn the event this information is protected by the Federal Confidentiality of Alcohol and Drug Abuse Patient Records regulations: The Federal rules restrict any use of the information to criminally investigate or prosecute any alcohol or drug abuse patient.[facility]In the event this information is protected by the Federal Confidentiality of Alcohol and Drug Abuse Patient Records regulations: The Federal rules restrict any use of the information to criminally investigate or prosecute any alcohol or drug abuse patient.[facility]In the event this information is protected by the Federal Confidentiality of Alcohol and Drug Abuse Patient Records regulations: The Federal rules restrict any use of the information to criminally investigate or prosecute any alcohol or drug abuse patient.[facility]In the event this information is protected by the Federal Confidentiality of Alcohol and Drug Abuse Patient Records regulations: The Federal rules restrict any use of the information to criminally investigate or prosecute any alcohol or drug abuse patient.[facility]In the event this information is protected by the Federal Confidentiality of Alcohol and Drug Abuse Patient Records regulations: The Federal rules restrict any use of the information to criminally investigate or prosecute any alcohol or drug abuse patient.[facility]In the event this information is protected by the Federal Confidentiality of Alcohol and Drug Abuse Patient Records regulations: The Federal rules restrict any use of the information to criminally investigate or prosecute any alcohol or drug abuse patient.[facility]In the event this information is protected by the Federal Confidentiality of Alcohol and Drug Abuse Patient Records regulations: The Federal rules restrict any use of the information to criminally investigate or prosecute any alcohol or drug abuse patient.[facility]In the event this information is protected by the Federal Confidentiality of Alcohol and Drug Abuse Patient Records regulations: The Federal rules restrict any use of the information to criminally investigate or prosecute any alcohol or drug abuse patient.[facility]In the event this information is protected by the Federal Confidentiality of Alcohol and Drug Abuse Patient Records regulations: The Federal rules restrict any use of the information to criminally investigate or prosecute any alcohol or drug abuse patient.[facility]In the event this information is protected by the Federal Confidentiality of Alcohol and Drug Abuse Patient Records regulations: The Federal rules restrict any use of the information to criminally investigate or prosecute any alcohol or drug abuse patient.[facility]In the event this information is protected by the Federal Confidentiality of Alcohol and Drug Abuse Patient Records regulations: The Federal rules restrict any use of the information to criminally investigate or prosecute any alcohol or drug abuse patient.[facility]In the event this information is protected by the Federal Confidentiality of Alcohol and Drug Abuse Patient Records regulations: The Federal rules restrict any use of the information to criminally investigate or prosecute any alcohol or drug abuse patient.[facility]In the event this information is protected by the Federal Confidentiality of Alcohol and Drug Abuse Patient Records regulations: The Federal rules restrict any use of the information to criminally investigate or prosecute any alcohol or drug abuse patient.[facility]In the event this information is protected by the Federal Confidentiality of Alcohol and Drug Abuse Patient Records regulations: The Federal rules restrict any use of the information to criminally investigate or prosecute any alcohol or drug abuse patient.[facility]In the event this information is protected by the Federal Confidentiality of Alcohol and Drug Abuse Patient Records regulations: The Federal rules restrict any use of the information to criminally investigate or prosecute any alcohol or drug abuse patient.[facility]In the event this information is protected by the Federal Confidentiality of Alcohol and Drug Abuse Patient Records regulations: The Federal rules restrict any use of the information to criminally investigate or prosecute any alcohol or drug abuse patient.[facility]In the event this information is protected by the Federal Confidentiality of Alcohol and Drug Abuse Patient Records regulations: The Federal rules restrict any use of the information to criminally investigate or prosecute any alcohol or drug abuse patient.[facility]In the event this information is protected by the Federal Confidentiality of Alcohol and Drug Abuse Patient Records regulations: The Federal rules restrict any use of the information to criminally investigate or prosecute any alcohol or drug abuse patient.[facility]In the event this information is protected by the Federal Confidentiality of Alcohol and Drug Abuse Patient Records regulations: The Federal rules restrict any use of the information to criminally investigate or prosecute any alcohol or drug abuse patient.[facility]In the event this information is protected by the Federal Confidentiality of Alcohol and Drug Abuse Patient Records regulations: The Federal rules restrict any use of the information to criminally investigate or prosecute any alcohol or drug abuse patient.[facility]In the event this information is protected by the Federal Confidentiality of Alcohol and Drug Abuse Patient Records regulations: The Federal rules restrict any use of the information to criminally investigate or prosecute any alcohol or drug abuse patient.[facility]In the event this information is protected by the Federal Confidentiality of Alcohol and Drug Abuse Patient Records regulations: The Federal rules restrict any use of the information to criminally investigate or prosecute any alcohol or drug abuse patient.[facility]In the event this information is protected by the Federal Confidentiality of Alcohol and Drug Abuse Patient Records regulations: The Federal rules restrict any use of the information to criminally investigate or prosecute any alcohol or drug abuse patient.[facility]In the event this information is protected by the Federal Confidentiality of Alcohol and Drug Abuse Patient Records regulations: The Federal rules restrict any use of the information to criminally investigate or prosecute any alcohol or drug abuse patient.[facility]In the event this information is protected by the Federal Confidentiality of Alcohol and Drug Abuse Patient Records regulations: The Federal rules restrict any use of the information to criminally investigate or prosecute any alcohol or drug abuse patient.[facility]In the event this information is protected by the Federal Confidentiality of Alcohol and Drug Abuse Patient Records regulations: The Federal rules restrict any use of the information to criminally investigate or prosecute any alcohol or drug abuse patient.[facility]In the event this information is protected by the Federal Confidentiality of Alcohol and Drug Abuse Patient Records regulations: The Federal rules restrict any use of the information to criminally investigate or prosecute any alcohol or drug abuse patient.[facility] HospitalIn the event this information is protected by the Federal Confidentiality of Alcohol and Drug Abuse Patient Records regulations: The Federal rules restrict any use of the information to criminally investigate or prosecute any alcohol or drug abuse patient.[facility] HospitalIn the event this information is protected by the Federal Confidentiality of Alcohol and Drug Abuse Patient Records regulations: The Federal rules restrict any use of the information to criminally investigate or prosecute any alcohol or drug abuse patient.[facility] HospitalIn the event this information is protected by the Federal Confidentiality of Alcohol and Drug Abuse Patient Records regulations: The Federal rules restrict any use of the information to criminally investigate or prosecute any alcohol or drug abuse patient.[facility] HospitalIn the event this information is protected by the Federal Confidentiality of Alcohol and Drug Abuse Patient Records regulations: The Federal rules restrict any use of the information to criminally investigate or prosecute any alcohol or drug abuse patient.[facility] HospitalIn the event this information is protected by the Federal Confidentiality of Alcohol and Drug Abuse Patient Records regulations: The Federal rules restrict any use of the information to criminally investigate or prosecute any alcohol or drug abuse patient.[facility] HospitalIn the event this information is protected by the Federal Confidentiality of Alcohol and Drug Abuse Patient Records regulations: The Federal rules restrict any use of the information to criminally investigate or prosecute any alcohol or drug abuse patient.[facility] HospitalIn the event this information is protected by the Federal Confidentiality of Alcohol and Drug Abuse Patient Records regulations: The Federal rules restrict any use of the information to criminally investigate or prosecute any alcohol or drug abuse patient.[facility] HospitalIn the event this information is protected by the Federal Confidentiality of Alcohol and Drug Abuse Patient Records regulations: The Federal rules restrict any use of the information to criminally investigate or prosecute any alcohol or drug abuse patient.[facility] HospitalIn the event this information is protected by the Federal Confidentiality of Alcohol and Drug Abuse Patient Records regulations: The Federal rules restrict any use of the information to criminally investigate or prosecute any alcohol or drug abuse patient.[facility] HospitalIn the event this information is protected by the Federal Confidentiality of Alcohol and Drug Abuse Patient Records regulations: The Federal rules restrict any use of the information to criminally investigate or prosecute any alcohol or drug abuse patient.[facility] HospitalIn the event this information is protected by the Federal Confidentiality of Alcohol and Drug Abuse Patient Records regulations: The Federal rules restrict any use of the information to criminally investigate or prosecute any alcohol or drug abuse patient.[facility] HospitalIn the event this information is protected by the Federal Confidentiality of Alcohol and Drug Abuse Patient Records regulations: The Federal rules restrict any use of the information to criminally investigate or prosecute any alcohol or drug abuse patient.[facility] HospitalIn the event this information is protected by the Federal Confidentiality of Alcohol and Drug Abuse Patient Records regulations: The Federal rules restrict any use of the information to criminally investigate or prosecute any alcohol or drug abuse patient.[facility] HospitalIn the event this information is protected by the Federal Confidentiality of Alcohol and Drug Abuse Patient Records regulations: The Federal rules restrict any use of the information to criminally investigate or prosecute any alcohol or drug abuse patient.[facility] HospitalIn the event this information is protected by the Federal Confidentiality of Alcohol and Drug Abuse Patient Records regulations: The Federal rules restrict any use of the information to criminally investigate or prosecute any alcohol or drug abuse patient.[facility] HospitalIn the event this information is protected by the Federal Confidentiality of Alcohol and Drug Abuse Patient Records regulations: The Federal rules restrict any use of the information to criminally investigate or prosecute any alcohol or drug abuse patient.[facility] HospitalIn the event this information is protected by the Federal Confidentiality of Alcohol and Drug Abuse Patient Records regulations: The Federal rules restrict any use of the information to criminally investigate or prosecute any alcohol or drug abuse patient.[facility] HospitalIn the event this information is protected by the Federal Confidentiality of Alcohol and Drug Abuse Patient Records regulations: The Federal rules restrict any use of the information to criminally investigate or prosecute any alcohol or drug abuse patient.[facility] HospitalIn the event this information is protected by the Federal Confidentiality of Alcohol and Drug Abuse Patient Records regulations: The Federal rules restrict any use of the information to criminally investigate or prosecute any alcohol or drug abuse patient.[facility] HospitalIn the event this information is protected by the Federal Confidentiality of Alcohol and Drug Abuse Patient Records regulations: The Federal rules restrict any use of the information to criminally investigate or prosecute any alcohol or drug abuse patient.[facility] HospitalIn the event this information is protected by the Federal Confidentiality of Alcohol and Drug Abuse Patient Records regulations: The Federal rules restrict any use of the information to criminally investigate or prosecute any alcohol or drug abuse patient.[facility] HospitalIn the event this information is protected by the Federal Confidentiality of Alcohol and Drug Abuse Patient Records regulations: The Federal rules restrict any use of the information to criminally investigate or prosecute any alcohol or drug abuse patient.[facility] HospitalIn the event this information is protected by the Federal Confidentiality of Alcohol and Drug Abuse Patient Records regulations: The Federal rules restrict any use of the information to criminally investigate or prosecute any alcohol or drug abuse patient.[facility] HospitalIn the event this information is protected by the Federal Confidentiality of Alcohol and Drug Abuse Patient Records regulations: The Federal rules restrict any use of the information to criminally investigate or prosecute any alcohol or drug abuse patient.[facility] HospitalIn the event this information is protected by the Federal Confidentiality of Alcohol and Drug Abuse Patient Records regulations: The Federal rules restrict any use of the information to criminally investigate or prosecute any alcohol or drug abuse patient.[facility] HospitalIn the event this information is protected by the Federal Confidentiality of Alcohol and Drug Abuse Patient Records regulations: The Federal rules restrict any use of the information to criminally investigate or prosecute any alcohol or drug abuse patient.[facility] HospitalIn the event this information is protected by the Federal Confidentiality of Alcohol and Drug Abuse Patient Records regulations: The Federal rules restrict any use of the information to criminally investigate or prosecute any alcohol or drug abuse patient.[facility] HospitalIn the event this information is protected by the Federal Confidentiality of Alcohol and Drug Abuse Patient Records regulations: The Federal rules restrict any use of the information to criminally investigate or prosecute any alcohol or drug abuse patient.[facility] HospitalIn the event this information is protected by the Federal Confidentiality of Alcohol and Drug Abuse Patient Records regulations: The Federal rules restrict any use of the information to criminally investigate or prosecute any alcohol or drug abuse patient.[facility] HospitalIn the event this information is protected by the Federal Confidentiality of Alcohol and Drug Abuse Patient Records regulations: The Federal rules restrict any use of the information to criminally investigate or prosecute any alcohol or drug abuse patient.[facility] HospitalIn the event this information is protected by the Federal Confidentiality of Alcohol and Drug Abuse Patient Records regulations: The Federal rules restrict any use of the information to criminally investigate or prosecute any alcohol or drug abuse patient.[facility] HospitalIn the event this information is protected by the Federal Confidentiality of Alcohol and Drug Abuse Patient Records regulations: The Federal rules restrict any use of the information to criminally investigate or prosecute any alcohol or drug abuse patient.[facility] HospitalIn the event this information is protected by the Federal Confidentiality of Alcohol and Drug Abuse Patient Records regulations: The Federal rules restrict any use of the information to criminally investigate or prosecute any alcohol or drug abuse patient.[facility] HospitalIn the event this information is protected by the Federal Confidentiality of Alcohol and Drug Abuse Patient Records regulations: The Federal rules restrict any use of the information to criminally investigate or prosecute any alcohol or drug abuse patient.[facility] HospitalIn the event this information is protected by the Federal Confidentiality of Alcohol and Drug Abuse Patient Records regulations: The Federal rules restrict any use of the information to criminally investigate or prosecute any alcohol or drug abuse patient.[facility] HospitalIn the event this information is protected by the Federal Confidentiality of Alcohol and Drug Abuse Patient Records regulations: The Federal rules restrict any use of the information to criminally investigate or prosecute any alcohol or drug abuse patient.[facility] HospitalIn the event this information is protected by the Federal Confidentiality of Alcohol and Drug Abuse Patient Records regulations: The Federal rules restrict any use of the information to criminally investigate or prosecute any alcohol or drug abuse patient.[facility] HospitalIn the event this information is protected by the Federal Confidentiality of Alcohol and Drug Abuse Patient Records regulations: The Federal rules restrict any use of the information to criminally investigate or prosecute any alcohol or drug abuse patient.[facility] HospitalIn the event this information is protected by the Federal Confidentiality of Alcohol and Drug Abuse Patient Records regulations: The Federal rules restrict any use of the information to criminally investigate or prosecute any alcohol or drug abuse patient.[facility] HospitalIn the event this information is protected by the Federal Confidentiality of Alcohol and Drug Abuse Patient Records regulations: The Federal rules restrict any use of the information to criminally investigate or prosecute any alcohol or drug abuse patient.[facility] HospitalIn the event this information is protected by the Federal Confidentiality of Alcohol and Drug Abuse Patient Records regulations: The Federal rules restrict any use of the information to criminally investigate or prosecute any alcohol or drug abuse patient.[facility] HospitalIn the event this information is protected by the Federal Confidentiality of Alcohol and Drug Abuse Patient Records regulations: The Federal rules restrict any use of the information to criminally investigate or prosecute any alcohol or drug abuse patient.[facility] HospitalIn the event this information is protected by the Federal Confidentiality of Alcohol and Drug Abuse Patient Records regulations: The Federal rules restrict any use of the information to criminally investigate or prosecute any alcohol or drug abuse patient.[facility] HospitalIn the event this information is protected by the Federal Confidentiality of Alcohol and Drug Abuse Patient Records regulations: The Federal rules restrict any use of the information to criminally investigate or prosecute any alcohol or drug abuse patient.[facility] HospitalIn the event this information is protected by the Federal Confidentiality of Alcohol and Drug Abuse Patient Records regulations: The Federal rules restrict any use of the information to criminally investigate or prosecute any alcohol or drug abuse patient.[facility] HospitalIn the event this information is protected by the Federal Confidentiality of Alcohol and Drug Abuse Patient Records regulations: The Federal rules restrict any use of the information to criminally investigate or prosecute any alcohol or drug abuse patient.[facility] HospitalIn the event this information is protected by the Federal Confidentiality of Alcohol and Drug Abuse Patient Records regulations: The Federal rules restrict any use of the information to criminally investigate or prosecute any alcohol or drug abuse patient.[facility] HospitalIn the event this information is protected by the Federal Confidentiality of Alcohol and Drug Abuse Patient Records regulations: The Federal rules restrict any use of the information to criminally investigate or prosecute any alcohol or drug abuse patient.[facility] HospitalIn the event this information is protected by the Federal Confidentiality of Alcohol and Drug Abuse Patient Records regulations: The Federal rules restrict any use of the information to criminally investigate or prosecute any alcohol or drug abuse patient.[facility] HospitalIn the event this information is protected by the Federal Confidentiality of Alcohol and Drug Abuse Patient Records regulations: The Federal rules restrict any use of the information to criminally investigate or prosecute any alcohol or drug abuse patient.[facility] HospitalIn the event this information is protected by the Federal Confidentiality of Alcohol and Drug Abuse Patient Records regulations: The Federal rules restrict any use of the information to criminally investigate or prosecute any alcohol or drug abuse patient.[facility] HospitalIn the event this information is protected by the Federal Confidentiality of Alcohol and Drug Abuse Patient Records regulations: The Federal rules restrict any use of the information to criminally investigate or prosecute any alcohol or drug abuse patient.[facility] HospitalIn the event this information is protected by the Federal Confidentiality of Alcohol and Drug Abuse Patient Records regulations: The Federal rules restrict any use of the information to criminally investigate or prosecute any alcohol or drug abuse patient.[facility] HospitalIn the event this information is protected by the Federal Confidentiality of Alcohol and Drug Abuse Patient Records regulations: The Federal rules restrict any use of the information to criminally investigate or prosecute any alcohol or drug abuse patient.[facility] HospitalIn the event this information is protected by the Federal Confidentiality of Alcohol and Drug Abuse Patient Records regulations: The Federal rules restrict any use of the information to criminally investigate or prosecute any alcohol or drug abuse patient.[facility] HospitalIn the event this information is protected by the Federal Confidentiality of Alcohol and Drug Abuse Patient Records regulations: The Federal rules restrict any use of the information to criminally investigate or prosecute any alcohol or drug abuse patient.[facility] HospitalIn the event this information is protected by the Federal Confidentiality of Alcohol and Drug Abuse Patient Records regulations: The Federal rules restrict any use of the information to criminally investigate or prosecute any alcohol or drug abuse patient.[facility] HospitalIn the event this information is protected by the Federal Confidentiality of Alcohol and Drug Abuse Patient Records regulations: The Federal rules restrict any use of the information to criminally investigate or prosecute any alcohol or drug abuse patient.[facility] HospitalIn the event this information is protected by the Federal Confidentiality of Alcohol and Drug Abuse Patient Records regulations: The Federal rules restrict any use of the information to criminally investigate or prosecute any alcohol or drug abuse patient.[facility] HospitalIn the event this information is protected by the Federal Confidentiality of Alcohol and Drug Abuse Patient Records regulations: The Federal rules restrict any use of the information to criminally investigate or prosecute any alcohol or drug abuse patient.[facility]In the event this information is protected by the Federal Confidentiality of Alcohol and Drug Abuse Patient Records regulations: The Federal rules restrict any use of the information to criminally investigate or prosecute any alcohol or drug abuse patient.[facility] HospitalIn the event this information is protected by the Federal Confidentiality of Alcohol and Drug Abuse Patient Records regulations: The Federal rules restrict any use of the information to criminally investigate or prosecute any alcohol or drug abuse patient.[facility] HospitalIn the event this information is protected by the Federal Confidentiality of Alcohol and Drug Abuse Patient Records regulations: The Federal rules restrict any use of the information to criminally investigate or prosecute any alcohol or drug abuse patient.[facility] HospitalIn the event this information is protected by the Federal Confidentiality of Alcohol and Drug Abuse Patient Records regulations: The Federal rules restrict any use of the information to criminally investigate or prosecute any alcohol or drug abuse patient.[facility] HospitalIn the event this information is protected by the Federal Confidentiality of Alcohol and Drug Abuse Patient Records regulations: The Federal rules restrict any use of the information to criminally investigate or prosecute any alcohol or drug abuse patient.[facility]In the event this information is protected by the Federal Confidentiality of Alcohol and Drug Abuse Patient Records regulations: The Federal rules restrict any use of the information to criminally investigate or prosecute any alcohol or drug abuse patient.[facility] HospitalIn the event this information is protected by the Federal Confidentiality of Alcohol and Drug Abuse Patient Records regulations: The Federal rules restrict any use of the information to criminally investigate or prosecute any alcohol or drug abuse patient.[facility] HospitalIn the event this information is protected by the Federal Confidentiality of Alcohol and Drug Abuse Patient Records regulations: The Federal rules restrict any use of the information to criminally investigate or prosecute any alcohol or drug abuse patient.[facility] HospitalIn the event this information is protected by the Federal Confidentiality of Alcohol and Drug Abuse Patient Records regulations: The Federal rules restrict any use of the information to criminally investigate or prosecute any alcohol or drug abuse patient.[facility]In the event this information is protected by the Federal Confidentiality of Alcohol and Drug Abuse Patient Records regulations: The Federal rules restrict any use of the information to criminally investigate or prosecute any alcohol or drug abuse patient.[facility]In the event this information is protected by the Federal Confidentiality of Alcohol and Drug Abuse Patient Records regulations: The Federal rules restrict any use of the information to criminally investigate or prosecute any alcohol or drug abuse patient.[facility]In the event this information is protected by the Federal Confidentiality of Alcohol and Drug Abuse Patient Records regulations: The Federal rules restrict any use of the information to criminally investigate or prosecute any alcohol or drug abuse patient.[facility]In the event this information is protected by the Federal Confidentiality of Alcohol and Drug Abuse Patient Records regulations: The Federal rules restrict any use of the information to criminally investigate or prosecute any alcohol or drug abuse patient.[facility]In the event this information is protected by the Federal Confidentiality of Alcohol and Drug Abuse Patient Records regulations: The Federal rules restrict any use of the information to criminally investigate or prosecute any alcohol or drug abuse patient.[facility]In the event this information is protected by the Federal Confidentiality of Alcohol and Drug Abuse Patient Records regulations: The Federal rules restrict any use of the information to criminally investigate or prosecute any alcohol or drug abuse patient.[facility]In the event this information is protected by the Federal Confidentiality of Alcohol and Drug Abuse Patient Records regulations: The Federal rules restrict any use of the information to criminally investigate or prosecute any alcohol or drug abuse patient.[facility]In the event this information is protected by the Federal Confidentiality of Alcohol and Drug Abuse Patient Records regulations: The Federal rules restrict any use of the information to criminally investigate or prosecute any alcohol or drug abuse patient.[facility]In the event this information is protected by the Federal Confidentiality of Alcohol and Drug Abuse Patient Records regulations: The Federal rules restrict any use of the information to criminally investigate or prosecute any alcohol or drug abuse patient.[facility]In the event this information is protected by the Federal Confidentiality of Alcohol and Drug Abuse Patient Records regulations: The Federal rules restrict any use of the information to criminally investigate or prosecute any alcohol or drug abuse patient.[facility]In the event this information is protected by the Federal Confidentiality of Alcohol and Drug Abuse Patient Records regulations: The Federal rules restrict any use of the information to criminally investigate or prosecute any alcohol or drug abuse patient.[facility]In the event this information is protected by the Federal Confidentiality of Alcohol and Drug Abuse Patient Records regulations: The Federal rules restrict any use of the information to criminally investigate or prosecute any alcohol or drug abuse patient.[facility] HospitalIn the event this information is protected by the Federal Confidentiality of Alcohol and Drug Abuse Patient Records regulations: The Federal rules restrict any use of the information to criminally investigate or prosecute any alcohol or drug abuse patient.[facility] HospitalIn the event this information is protected by the Federal Confidentiality of Alcohol and Drug Abuse Patient Records regulations: The Federal rules restrict any use of the information to criminally investigate or prosecute any alcohol or drug abuse patient.[facility] HospitalIn the event this information is protected by the Federal Confidentiality of Alcohol and Drug Abuse Patient Records regulations: The Federal rules restrict any use of the information to criminally investigate or prosecute any alcohol or drug abuse patient.[facility] HospitalIn the event this information is protected by the Federal Confidentiality of Alcohol and Drug Abuse Patient Records regulations: The Federal rules restrict any use of the information to criminally investigate or prosecute any alcohol or drug abuse patient.[facility] HospitalIn the event this information is protected by the Federal Confidentiality of Alcohol and Drug Abuse Patient Records regulations: The Federal rules restrict any use of the information to criminally investigate or prosecute any alcohol or drug abuse patient.[facility] HospitalIn the event this information is protected by the Federal Confidentiality of Alcohol and Drug Abuse Patient Records regulations: The Federal rules restrict any use of the information to criminally investigate or prosecute any alcohol or drug abuse patient.[facility] HospitalIn the event this information is protected by the Federal Confidentiality of Alcohol and Drug Abuse Patient Records regulations: The Federal rules restrict any use of the information to criminally investigate or prosecute any alcohol or drug abuse patient.[facility] HospitalIn the event this information is protected by the Federal Confidentiality of Alcohol and Drug Abuse Patient Records regulations: The Federal rules restrict any use of the information to criminally investigate or prosecute any alcohol or drug abuse patient.[facility] HospitalIn the event this information is protected by the Federal Confidentiality of Alcohol and Drug Abuse Patient Records regulations: The Federal rules restrict any use of the information to criminally investigate or prosecute any alcohol or drug abuse patient.[facility] HospitalIn the event this information is protected by the Federal Confidentiality of Alcohol and Drug Abuse Patient Records regulations: The Federal rules restrict any use of the information to criminally investigate or prosecute any alcohol or drug abuse patient.[facility] HospitalIn the event this information is protected by the Federal Confidentiality of Alcohol and Drug Abuse Patient Records regulations: The Federal rules restrict any use of the information to criminally investigate or prosecute any alcohol or drug abuse patient.[facility] HospitalIn the event this information is protected by the Federal Confidentiality of Alcohol and Drug Abuse Patient Records regulations: The Federal rules restrict any use of the information to criminally investigate or prosecute any alcohol or drug abuse patient.[facility] HospitalIn the event this information is protected by the Federal Confidentiality of Alcohol and Drug Abuse Patient Records regulations: The Federal rules restrict any use of the information to criminally investigate or prosecute any alcohol or drug abuse patient.[facility] HospitalIn the event this information is protected by the Federal Confidentiality of Alcohol and Drug Abuse Patient Records regulations: The Federal rules restrict any use of the information to criminally investigate or prosecute any alcohol or drug abuse patient.[facility] HospitalIn the event this information is protected by the Federal Confidentiality of Alcohol and Drug Abuse Patient Records regulations: The Federal rules restrict any use of the information to criminally investigate or prosecute any alcohol or drug abuse patient.[facility] HospitalIn the event this information is protected by the Federal Confidentiality of Alcohol and Drug Abuse Patient Records regulations: The Federal rules restrict any use of the information to criminally investigate or prosecute any alcohol or drug abuse patient.[facility] HospitalIn the event this information is protected by the Federal Confidentiality of Alcohol and Drug Abuse Patient Records regulations: The Federal rules restrict any use of the information to criminally investigate or prosecute any alcohol or drug abuse patient.[facility] HospitalIn the event this information is protected by the Federal Confidentiality of Alcohol and Drug Abuse Patient Records regulations: The Federal rules restrict any use of the information to criminally investigate or prosecute any alcohol or drug abuse patient.[facility] HospitalIn the event this information is protected by the Federal Confidentiality of Alcohol and Drug Abuse Patient Records regulations: The Federal rules restrict any use of the information to criminally investigate or prosecute any alcohol or drug abuse patient.[facility] HospitalIn the event this information is protected by the Federal Confidentiality of Alcohol and Drug Abuse Patient Records regulations: The Federal rules restrict any use of the information to criminally investigate or prosecute any alcohol or drug abuse patient.[facility] HospitalIn the event this information is protected by the Federal Confidentiality of Alcohol and Drug Abuse Patient Records regulations: The Federal rules restrict any use of the information to criminally investigate or prosecute any alcohol or drug abuse patient.[facility] HospitalIn the event this information is protected by the Federal Confidentiality of Alcohol and Drug Abuse Patient Records regulations: The Federal rules restrict any use of the information to criminally investigate or prosecute any alcohol or drug abuse patient.[facility] HospitalIn the event this information is protected by the Federal Confidentiality of Alcohol and Drug Abuse Patient Records regulations: The Federal rules restrict any use of the information to criminally investigate or prosecute any alcohol or drug abuse patient.[facility] HospitalIn the event this information is protected by the Federal Confidentiality of Alcohol and Drug Abuse Patient Records regulations: The Federal rules restrict any use of the information to criminally investigate or prosecute any alcohol or drug abuse patient.[facility] HospitalIn the event this information is protected by the Federal Confidentiality of Alcohol and Drug Abuse Patient Records regulations: The Federal rules restrict any use of the information to criminally investigate or prosecute any alcohol or drug abuse patient.[facility] HospitalIn the event this information is protected by the Federal Confidentiality of Alcohol and Drug Abuse Patient Records regulations: The Federal rules restrict any use of the information to criminally investigate or prosecute any alcohol or drug abuse patient.[facility] HospitalIn the event this information is protected by the Federal Confidentiality of Alcohol and Drug Abuse Patient Records regulations: The Federal rules restrict any use of the information to criminally investigate or prosecute any alcohol or drug abuse patient.[facility] HospitalIn the event this information is protected by the Federal Confidentiality of Alcohol and Drug Abuse Patient Records regulations: The Federal rules restrict any use of the information to criminally investigate or prosecute any alcohol or drug abuse patient.[facility] HospitalIn the event this information is protected by the Federal Confidentiality of Alcohol and Drug Abuse Patient Records regulations: The Federal rules restrict any use of the information to criminally investigate or prosecute any alcohol or drug abuse patient.[facility] HospitalIn the event this information is protected by the Federal Confidentiality of Alcohol and Drug Abuse Patient Records regulations: The Federal rules restrict any use of the information to criminally investigate or prosecute any alcohol or drug abuse patient.[facility] HospitalIn the event this information is protected by the Federal Confidentiality of Alcohol and Drug Abuse Patient Records regulations: The Federal rules restrict any use of the information to criminally investigate or prosecute any alcohol or drug abuse patient.[facility] HospitalIn the event this information is protected by the Federal Confidentiality of Alcohol and Drug Abuse Patient Records regulations: The Federal rules restrict any use of the information to criminally investigate or prosecute any alcohol or drug abuse patient.[facility] HospitalIn the event this information is protected by the Federal Confidentiality of Alcohol and Drug Abuse Patient Records regulations: The Federal rules restrict any use of the information to criminally investigate or prosecute any alcohol or drug abuse patient.[facility] HospitalIn the event this information is protected by the Federal Confidentiality of Alcohol and Drug Abuse Patient Records regulations: The Federal rules restrict any use of the information to criminally investigate or prosecute any alcohol or drug abuse patient.[facility] HospitalIn the event this information is protected by the Federal Confidentiality of Alcohol and Drug Abuse Patient Records regulations: The Federal rules restrict any use of the information to criminally investigate or prosecute any alcohol or drug abuse patient.[facility] HospitalIn the event this information is protected by the Federal Confidentiality of Alcohol and Drug Abuse Patient Records regulations: The Federal rules restrict any use of the information to criminally investigate or prosecute any alcohol or drug abuse patient.[facility] HospitalIn the event this information is protected by the Federal Confidentiality of Alcohol and Drug Abuse Patient Records regulations: The Federal rules restrict any use of the information to criminally investigate or prosecute any alcohol or drug abuse patient.[facility] HospitalIn the event this information is protected by the Federal Confidentiality of Alcohol and Drug Abuse Patient Records regulations: The Federal rules restrict any use of the information to criminally investigate or prosecute any alcohol or drug abuse patient.[facility] HospitalIn the event this information is protected by the Federal Confidentiality of Alcohol and Drug Abuse Patient Records regulations: The Federal rules restrict any use of the information to criminally investigate or prosecute any alcohol or drug abuse patient.[facility] HospitalIn the event this information is protected by the Federal Confidentiality of Alcohol and Drug Abuse Patient Records regulations: The Federal rules restrict any use of the information to criminally investigate or prosecute any alcohol or drug abuse patient.[facility] HospitalIn the event this information is protected by the Federal Confidentiality of Alcohol and Drug Abuse Patient Records regulations: The Federal rules restrict any use of the information to criminally investigate or prosecute any alcohol or drug abuse patient.[facility] HospitalIn the event this information is protected by the Federal Confidentiality of Alcohol and Drug Abuse Patient Records regulations: The Federal rules restrict any use of the information to criminally investigate or prosecute any alcohol or drug abuse patient.[facility] HospitalIn the event this information is protected by the Federal Confidentiality of Alcohol and Drug Abuse Patient Records regulations: The Federal rules restrict any use of the information to criminally investigate or prosecute any alcohol or drug abuse patient.[facility] HospitalIn the event this information is protected by the Federal Confidentiality of Alcohol and Drug Abuse Patient Records regulations: The Federal rules restrict any use of the information to criminally investigate or prosecute any alcohol or drug abuse patient.[facility] HospitalIn the event this information is protected by the Federal Confidentiality of Alcohol and Drug Abuse Patient Records regulations: The Federal rules restrict any use of the information to criminally investigate or prosecute any alcohol or drug abuse patient.[facility] HospitalIn the event this information is protected by the Federal Confidentiality of Alcohol and Drug Abuse Patient Records regulations: The Federal rules restrict any use of the information to criminally investigate or prosecute any alcohol or drug abuse patient.[facility] HospitalIn the event this information is protected by the Federal Confidentiality of Alcohol and Drug Abuse Patient Records regulations: The Federal rules restrict any use of the information to criminally investigate or prosecute any alcohol or drug abuse patient.[facility] HospitalIn the event this information is protected by the Federal Confidentiality of Alcohol and Drug Abuse Patient Records regulations: The Federal rules restrict any use of the information to criminally investigate or prosecute any alcohol or drug abuse patient.[facility] HospitalIn the event this information is protected by the Federal Confidentiality of Alcohol and Drug Abuse Patient Records regulations: The Federal rules restrict any use of the information to criminally investigate or prosecute any alcohol or drug abuse patient.[facility] HospitalIn the event this information is protected by the Federal Confidentiality of Alcohol and Drug Abuse Patient Records regulations: The Federal rules restrict any use of the information to criminally investigate or prosecute any alcohol or drug abuse patient.[facility] HospitalIn the event this information is protected by the Federal Confidentiality of Alcohol and Drug Abuse Patient Records regulations: The Federal rules restrict any use of the information to criminally investigate or prosecute any alcohol or drug abuse patient.[facility] HospitalIn the event this information is protected by the Federal Confidentiality of Alcohol and Drug Abuse Patient Records regulations: The Federal rules restrict any use of the information to criminally investigate or prosecute any alcohol or drug abuse patient.[facility] HospitalIn the event this information is protected by the Federal Confidentiality of Alcohol and Drug Abuse Patient Records regulations: The Federal rules restrict any use of the information to criminally investigate or prosecute any alcohol or drug abuse patient.[facility] HospitalIn the event this information is protected by the Federal Confidentiality of Alcohol and Drug Abuse Patient Records regulations: The Federal rules restrict any use of the information to criminally investigate or prosecute any alcohol or drug abuse patient.[facility] HospitalIn the event this information is protected by the Federal Confidentiality of Alcohol and Drug Abuse Patient Records regulations: The Federal rules restrict any use of the information to criminally investigate or prosecute any alcohol or drug abuse patient.[facility] HospitalIn the event this information is protected by the Federal Confidentiality of Alcohol and Drug Abuse Patient Records regulations: The Federal rules restrict any use of the information to criminally investigate or prosecute any alcohol or drug abuse patient.[facility] HospitalIn the event this information is protected by the Federal Confidentiality of Alcohol and Drug Abuse Patient Records regulations: The Federal rules restrict any use of the information to criminally investigate or prosecute any alcohol or drug abuse patient.[facility]In the event this information is protected by the Federal Confidentiality of Alcohol and Drug Abuse Patient Records regulations: The Federal rules restrict any use of the information to criminally investigate or prosecute any alcohol or drug abuse patient.[facility] HospitalIn the event this information is protected by the Federal Confidentiality of Alcohol and Drug Abuse Patient Records regulations: The Federal rules restrict any use of the information to criminally investigate or prosecute any alcohol or drug abuse patient.[facility] HospitalIn the event this information is protected by the Federal Confidentiality of Alcohol and Drug Abuse Patient Records regulations: The Federal rules restrict any use of the information to criminally investigate or prosecute any alcohol or drug abuse patient.[facility]In the event this information is protected by the Federal Confidentiality of Alcohol and Drug Abuse Patient Records regulations: The Federal rules restrict any use of the information to criminally investigate or prosecute any alcohol or drug abuse patient.[facility]In the event this information is protected by the Federal Confidentiality of Alcohol and Drug Abuse Patient Records regulations: The Federal rules restrict any use of the information to criminally investigate or prosecute any alcohol or drug abuse patient.[facility]In the event this information is protected by the Federal Confidentiality of Alcohol and Drug Abuse Patient Records regulations: The Federal rules restrict any use of the information to criminally investigate or prosecute any alcohol or drug abuse patient.[facility]In the event this information is protected by the Federal Confidentiality of Alcohol and Drug Abuse Patient Records regulations: The Federal rules restrict any use of the information to criminally investigate or prosecute any alcohol or drug abuse patient.[facility]In the event this information is protected by the Federal Confidentiality of Alcohol and Drug Abuse Patient Records regulations: The Federal rules restrict any use of the information to criminally investigate or prosecute any alcohol or drug abuse patient.[facility]In the event this information is protected by the Federal Confidentiality of Alcohol and Drug Abuse Patient Records regulations: The Federal rules restrict any use of the information to criminally investigate or prosecute any alcohol or drug abuse patient.[facility]In the event this information is protected by the Federal Confidentiality of Alcohol and Drug Abuse Patient Records regulations: The Federal rules restrict any use of the information to criminally investigate or prosecute any alcohol or drug abuse patient.[facility]In the event this information is protected by the Federal Confidentiality of Alcohol and Drug Abuse Patient Records regulations: The Federal rules restrict any use of the information to criminally investigate or prosecute any alcohol or drug abuse patient.[facility]In the event this information is protected by the Federal Confidentiality of Alcohol and Drug Abuse Patient Records regulations: The Federal rules restrict any use of the information to criminally investigate or prosecute any alcohol or drug abuse patient.[facility]In the event this information is protected by the Federal Confidentiality of Alcohol and Drug Abuse Patient Records regulations: The Federal rules restrict any use of the information to criminally investigate or prosecute any alcohol or drug abuse patient.[facility]In the event this information is protected by the Federal Confidentiality of Alcohol and Drug Abuse Patient Records regulations: The Federal rules restrict any use of the information to criminally investigate or prosecute any alcohol or drug abuse patient.[facility]In the event this information is protected by the Federal Confidentiality of Alcohol and Drug Abuse Patient Records regulations: The Federal rules restrict any use of the information to criminally investigate or prosecute any alcohol or drug abuse patient.[facility]In the event this information is protected by the Federal Confidentiality of Alcohol and Drug Abuse Patient Records regulations: The Federal rules restrict any use of the information to criminally investigate or prosecute any alcohol or drug abuse patient.[facility]In the event this information is protected by the Federal Confidentiality of Alcohol and Drug Abuse Patient Records regulations: The Federal rules restrict any use of the information to criminally investigate or prosecute any alcohol or drug abuse patient.[facility]In the event this information is protected by the Federal Confidentiality of Alcohol and Drug Abuse Patient Records regulations: The Federal rules restrict any use of the information to criminally investigate or prosecute any alcohol or drug abuse patient.[facility]In the event this information is protected by the Federal Confidentiality of Alcohol and Drug Abuse Patient Records regulations: The Federal rules restrict any use of the information to criminally investigate or prosecute any alcohol or drug abuse patient.[facility]In the event this information is protected by the Federal Confidentiality of Alcohol and Drug Abuse Patient Records regulations: The Federal rules restrict any use of the information to criminally investigate or prosecute any alcohol or drug abuse patient.[facility]In the event this information is protected by the Federal Confidentiality of Alcohol and Drug Abuse Patient Records regulations: The Federal rules restrict any use of the information to criminally investigate or prosecute any alcohol or drug abuse patient.[facility]In the event this information is protected by the Federal Confidentiality of Alcohol and Drug Abuse Patient Records regulations: The Federal rules restrict any use of the information to criminally investigate or prosecute any alcohol or drug abuse patient.[facility]In the event this information is protected by the Federal Confidentiality of Alcohol and Drug Abuse Patient Records regulations: The Federal rules restrict any use of the information to criminally investigate or prosecute any alcohol or drug abuse patient.[facility]In the event this information is protected by the Federal Confidentiality of Alcohol and Drug Abuse Patient Records regulations: The Federal rules restrict any use of the information to criminally investigate or prosecute any alcohol or drug abuse patient.[facility]In the event this information is protected by the Federal Confidentiality of Alcohol and Drug Abuse Patient Records regulations: The Federal rules restrict any use of the information to criminally investigate or prosecute any alcohol or drug abuse patient.[facility]In the event this information is protected by the Federal Confidentiality of Alcohol and Drug Abuse Patient Records regulations: The Federal rules restrict any use of the information to criminally investigate or prosecute any alcohol or drug abuse patient.[facility]In the event this information is protected by the Federal Confidentiality of Alcohol and Drug Abuse Patient Records regulations: The Federal rules restrict any use of the information to criminally investigate or prosecute any alcohol or drug abuse patient.[facility]In the event this information is protected by the Federal Confidentiality of Alcohol and Drug Abuse Patient Records regulations: The Federal rules restrict any use of the information to criminally investigate or prosecute any alcohol or drug abuse patient.[facility]In the event this information is protected by the Federal Confidentiality of Alcohol and Drug Abuse Patient Records regulations: The Federal rules restrict any use of the information to criminally investigate or prosecute any alcohol or drug abuse patient.[facility]In the event this information is protected by the Federal Confidentiality of Alcohol and Drug Abuse Patient Records regulations: The Federal rules restrict any use of the information to criminally investigate or prosecute any alcohol or drug abuse patient.[facility]In the event this information is protected by the Federal Confidentiality of Alcohol and Drug Abuse Patient Records regulations: The Federal rules restrict any use of the information to criminally investigate or prosecute any alcohol or drug abuse patient.[facility] HospitalIn the event this information is protected by the Federal Confidentiality of Alcohol and Drug Abuse Patient Records regulations: The Federal rules restrict any use of the information to criminally investigate or prosecute any alcohol or drug abuse patient.[facility] HospitalIn the event this information is protected by the Federal Confidentiality of Alcohol and Drug Abuse Patient Records regulations: The Federal rules restrict any use of the information to criminally investigate or prosecute any alcohol or drug abuse patient.[facility] HospitalIn the event this information is protected by the Federal Confidentiality of Alcohol and Drug Abuse Patient Records regulations: The Federal rules restrict any use of the information to criminally investigate or prosecute any alcohol or drug abuse patient.[facility] HospitalIn the event this information is protected by the Federal Confidentiality of Alcohol and Drug Abuse Patient Records regulations: The Federal rules restrict any use of the information to criminally investigate or prosecute any alcohol or drug abuse patient.[facility] HospitalIn the event this information is protected by the Federal Confidentiality of Alcohol and Drug Abuse Patient Records regulations: The Federal rules restrict any use of the information to criminally investigate or prosecute any alcohol or drug abuse patient.[facility] HospitalIn the event this information is protected by the Federal Confidentiality of Alcohol and Drug Abuse Patient Records regulations: The Federal rules restrict any use of the information to criminally investigate or prosecute any alcohol or drug abuse patient.[facility] HospitalIn the event this information is protected by the Federal Confidentiality of Alcohol and Drug Abuse Patient Records regulations: The Federal rules restrict any use of the information to criminally investigate or prosecute any alcohol or drug abuse patient.[facility] HospitalIn the event this information is protected by the Federal Confidentiality of Alcohol and Drug Abuse Patient Records regulations: The Federal rules restrict any use of the information to criminally investigate or prosecute any alcohol or drug abuse patient.[facility] HospitalIn the event this information is protected by the Federal Confidentiality of Alcohol and Drug Abuse Patient Records regulations: The Federal rules restrict any use of the information to criminally investigate or prosecute any alcohol or drug abuse patient.[facility] HospitalIn the event this information is protected by the Federal Confidentiality of Alcohol and Drug Abuse Patient Records regulations: The Federal rules restrict any use of the information to criminally investigate or prosecute any alcohol or drug abuse patient.[facility] HospitalIn the event this information is protected by the Federal Confidentiality of Alcohol and Drug Abuse Patient Records regulations: The Federal rules restrict any use of the information to criminally investigate or prosecute any alcohol or drug abuse patient.[facility] HospitalIn the event this information is protected by the Federal Confidentiality of Alcohol and Drug Abuse Patient Records regulations: The Federal rules restrict any use of the information to criminally investigate or prosecute any alcohol or drug abuse patient.[facility] HospitalIn the event this information is protected by the Federal Confidentiality of Alcohol and Drug Abuse Patient Records regulations: The Federal rules restrict any use of the information to criminally investigate or prosecute any alcohol or drug abuse patient.[facility] HospitalIn the event this information is protected by the Federal Confidentiality of Alcohol and Drug Abuse Patient Records regulations: The Federal rules restrict any use of the information to criminally investigate or prosecute any alcohol or drug abuse patient.[facility] HospitalIn the event this information is protected by the Federal Confidentiality of Alcohol and Drug Abuse Patient Records regulations: The Federal rules restrict any use of the information to criminally investigate or prosecute any alcohol or drug abuse patient.[facility] HospitalIn the event this information is protected by the Federal Confidentiality of Alcohol and Drug Abuse Patient Records regulations: The Federal rules restrict any use of the information to criminally investigate or prosecute any alcohol or drug abuse patient.[facility] HospitalIn the event this information is protected by the Federal Confidentiality of Alcohol and Drug Abuse Patient Records regulations: The Federal rules restrict any use of the information to criminally investigate or prosecute any alcohol or drug abuse patient.[facility] HospitalIn the event this information is protected by the Federal Confidentiality of Alcohol and Drug Abuse Patient Records regulations: The Federal rules restrict any use of the information to criminally investigate or prosecute any alcohol or drug abuse patient.[facility] HospitalIn the event this information is protected by the Federal Confidentiality of Alcohol and Drug Abuse Patient Records regulations: The Federal rules restrict any use of the information to criminally investigate or prosecute any alcohol or drug abuse patient.[facility] HospitalIn the event this information is protected by the Federal Confidentiality of Alcohol and Drug Abuse Patient Records regulations: The Federal rules restrict any use of the information to criminally investigate or prosecute any alcohol or drug abuse patient.[facility] HospitalIn the event this information is protected by the Federal Confidentiality of Alcohol and Drug Abuse Patient Records regulations: The Federal rules restrict any use of the information to criminally investigate or prosecute any alcohol or drug abuse patient.[facility] HospitalIn the event this information is protected by the Federal Confidentiality of Alcohol and Drug Abuse Patient Records regulations: The Federal rules restrict any use of the information to criminally investigate or prosecute any alcohol or drug abuse patient.[facility] HospitalIn the event this information is protected by the Federal Confidentiality of Alcohol and Drug Abuse Patient Records regulations: The Federal rules restrict any use of the information to criminally investigate or prosecute any alcohol or drug abuse patient.[facility] HospitalIn the event this information is protected by the Federal Confidentiality of Alcohol and Drug Abuse Patient Records regulations: The Federal rules restrict any use of the information to criminally investigate or prosecute any alcohol or drug abuse patient.[facility] HospitalIn the event this information is protected by the Federal Confidentiality of Alcohol and Drug Abuse Patient Records regulations: The Federal rules restrict any use of the information to criminally investigate or prosecute any alcohol or drug abuse patient.[facility] HospitalIn the event this information is protected by the Federal Confidentiality of Alcohol and Drug Abuse Patient Records regulations: The Federal rules restrict any use of the information to criminally investigate or prosecute any alcohol or drug abuse patient.[facility] HospitalIn the event this information is protected by the Federal Confidentiality of Alcohol and Drug Abuse Patient Records regulations: The Federal rules restrict any use of the information to criminally investigate or prosecute any alcohol or drug abuse patient.[facility] HospitalIn the event this information is protected by the Federal Confidentiality of Alcohol and Drug Abuse Patient Records regulations: The Federal rules restrict any use of the information to criminally investigate or prosecute any alcohol or drug abuse patient.[facility] HospitalIn the event this information is protected by the Federal Confidentiality of Alcohol and Drug Abuse Patient Records regulations: The Federal rules restrict any use of the information to criminally investigate or prosecute any alcohol or drug abuse patient.[facility] HospitalIn the event this information is protected by the Federal Confidentiality of Alcohol and Drug Abuse Patient Records regulations: The Federal rules restrict any use of the information to criminally investigate or prosecute any alcohol or drug abuse patient.[facility] HospitalIn the event this information is protected by the Federal Confidentiality of Alcohol and Drug Abuse Patient Records regulations: The Federal rules restrict any use of the information to criminally investigate or prosecute any alcohol or drug abuse patient.[facility] HospitalIn the event this information is protected by the Federal Confidentiality of Alcohol and Drug Abuse Patient Records regulations: The Federal rules restrict any use of the information to criminally investigate or prosecute any alcohol or drug abuse patient.[facility] HospitalIn the event this information is protected by the Federal Confidentiality of Alcohol and Drug Abuse Patient Records regulations: The Federal rules restrict any use of the information to criminally investigate or prosecute any alcohol or drug abuse patient.[facility] HospitalIn the event this information is protected by the Federal Confidentiality of Alcohol and Drug Abuse Patient Records regulations: The Federal rules restrict any use of the information to criminally investigate or prosecute any alcohol or drug abuse patient.[facility] HospitalIn the event this information is protected by the Federal Confidentiality of Alcohol and Drug Abuse Patient Records regulations: The Federal rules restrict any use of the information to criminally investigate or prosecute any alcohol or drug abuse patient.[facility] HospitalIn the event this information is protected by the Federal Confidentiality of Alcohol and Drug Abuse Patient Records regulations: The Federal rules restrict any use of the information to criminally investigate or prosecute any alcohol or drug abuse patient.[facility] HospitalIn the event this information is protected by the Federal Confidentiality of Alcohol and Drug Abuse Patient Records regulations: The Federal rules restrict any use of the information to criminally investigate or prosecute any alcohol or drug abuse patient.[facility] HospitalIn the event this information is protected by the Federal Confidentiality of Alcohol and Drug Abuse Patient Records regulations: The Federal rules restrict any use of the information to criminally investigate or prosecute any alcohol or drug abuse patient.[facility] HospitalIn the event this information is protected by the Federal Confidentiality of Alcohol and Drug Abuse Patient Records regulations: The Federal rules restrict any use of the information to criminally investigate or prosecute any alcohol or drug abuse patient.[facility] HospitalIn the event this information is protected by the Federal Confidentiality of Alcohol and Drug Abuse Patient Records regulations: The Federal rules restrict any use of the information to criminally investigate or prosecute any alcohol or drug abuse patient.[facility] HospitalIn the event this information is protected by the Federal Confidentiality of Alcohol and Drug Abuse Patient Records regulations: The Federal rules restrict any use of the information to criminally investigate or prosecute any alcohol or drug abuse patient.[facility] HospitalIn the event this information is protected by the Federal Confidentiality of Alcohol and Drug Abuse Patient Records regulations: The Federal rules restrict any use of the information to criminally investigate or prosecute any alcohol or drug abuse patient.[facility] HospitalIn the event this information is protected by the Federal Confidentiality of Alcohol and Drug Abuse Patient Records regulations: The Federal rules restrict any use of the information to criminally investigate or prosecute any alcohol or drug abuse patient.[facility] HospitalIn the event this information is protected by the Federal Confidentiality of Alcohol and Drug Abuse Patient Records regulations: The Federal rules restrict any use of the information to criminally investigate or prosecute any alcohol or drug abuse patient.[facility] HospitalIn the event this information is protected by the Federal Confidentiality of Alcohol and Drug Abuse Patient Records regulations: The Federal rules restrict any use of the information to criminally investigate or prosecute any alcohol or drug abuse patient.[facility] HospitalIn the event this information is protected by the Federal Confidentiality of Alcohol and Drug Abuse Patient Records regulations: The Federal rules restrict any use of the information to criminally investigate or prosecute any alcohol or drug abuse patient.[facility] HospitalIn the event this information is protected by the Federal Confidentiality of Alcohol and Drug Abuse Patient Records regulations: The Federal rules restrict any use of the information to criminally investigate or prosecute any alcohol or drug abuse patient.[facility] HospitalIn the event this information is protected by the Federal Confidentiality of Alcohol and Drug Abuse Patient Records regulations: The Federal rules restrict any use of the information to criminally investigate or prosecute any alcohol or drug abuse patient.[facility] HospitalIn the event this information is protected by the Federal Confidentiality of Alcohol and Drug Abuse Patient Records regulations: The Federal rules restrict any use of the information to criminally investigate or prosecute any alcohol or drug abuse patient.[facility] HospitalIn the event this information is protected by the Federal Confidentiality of Alcohol and Drug Abuse Patient Records regulations: The Federal rules restrict any use of the information to criminally investigate or prosecute any alcohol or drug abuse patient.[facility] HospitalIn the event this information is protected by the Federal Confidentiality of Alcohol and Drug Abuse Patient Records regulations: The Federal rules restrict any use of the information to criminally investigate or prosecute any alcohol or drug abuse patient.[facility] HospitalIn the event this information is protected by the Federal Confidentiality of Alcohol and Drug Abuse Patient Records regulations: The Federal rules restrict any use of the information to criminally investigate or prosecute any alcohol or drug abuse patient.[facility] HospitalIn the event this information is protected by the Federal Confidentiality of Alcohol and Drug Abuse Patient Records regulations: The Federal rules restrict any use of the information to criminally investigate or prosecute any alcohol or drug abuse patient.[facility] HospitalIn the event this information is protected by the Federal Confidentiality of Alcohol and Drug Abuse Patient Records regulations: The Federal rules restrict any use of the information to criminally investigate or prosecute any alcohol or drug abuse patient.[facility] HospitalIn the event this information is protected by the Federal Confidentiality of Alcohol and Drug Abuse Patient Records regulations: The Federal rules restrict any use of the information to criminally investigate or prosecute any alcohol or drug abuse patient.[facility] HospitalIn the event this information is protected by the Federal Confidentiality of Alcohol and Drug Abuse Patient Records regulations: The Federal rules restrict any use of the information to criminally investigate or prosecute any alcohol or drug abuse patient.[facility] HospitalIn the event this information is protected by the Federal Confidentiality of Alcohol and Drug Abuse Patient Records regulations: The Federal rules restrict any use of the information to criminally investigate or prosecute any alcohol or drug abuse patient.[facility] HospitalIn the event this information is protected by the Federal Confidentiality of Alcohol and Drug Abuse Patient Records regulations: The Federal rules restrict any use of the information to criminally investigate or prosecute any alcohol or drug abuse patient.[facility] HospitalIn the event this information is protected by the Federal Confidentiality of Alcohol and Drug Abuse Patient Records regulations: The Federal rules restrict any use of the information to criminally investigate or prosecute any alcohol or drug abuse patient.[facility] HospitalIn the event this information is protected by the Federal Confidentiality of Alcohol and Drug Abuse Patient Records regulations: The Federal rules restrict any use of the information to criminally investigate or prosecute any alcohol or drug abuse patient.[facility] HospitalIn the event this information is protected by the Federal Confidentiality of Alcohol and Drug Abuse Patient Records regulations: The Federal rules restrict any use of the information to criminally investigate or prosecute any alcohol or drug abuse patient.[facility] HospitalIn the event this information is protected by the Federal Confidentiality of Alcohol and Drug Abuse Patient Records regulations: The Federal rules restrict any use of the information to criminally investigate or prosecute any alcohol or drug abuse patient.[facility] HospitalIn the event this information is protected by the Federal Confidentiality of Alcohol and Drug Abuse Patient Records regulations: The Federal rules restrict any use of the information to criminally investigate or prosecute any alcohol or drug abuse patient.[facility] HospitalIn the event this information is protected by the Federal Confidentiality of Alcohol and Drug Abuse Patient Records regulations: The Federal rules restrict any use of the information to criminally investigate or prosecute any alcohol or drug abuse patient.[facility] HospitalIn the event this information is protected by the Federal Confidentiality of Alcohol and Drug Abuse Patient Records regulations: The Federal rules restrict any use of the information to criminally investigate or prosecute any alcohol or drug abuse patient.[facility] HospitalIn the event this information is protected by the Federal Confidentiality of Alcohol and Drug Abuse Patient Records regulations: The Federal rules restrict any use of the information to criminally investigate or prosecute any alcohol or drug abuse patient.[facility] HospitalIn the event this information is protected by the Federal Confidentiality of Alcohol and Drug Abuse Patient Records regulations: The Federal rules restrict any use of the information to criminally investigate or prosecute any alcohol or drug abuse patient.[facility] HospitalIn the event this information is protected by the Federal Confidentiality of Alcohol and Drug Abuse Patient Records regulations: The Federal rules restrict any use of the information to criminally investigate or prosecute any alcohol or drug abuse patient.[facility] HospitalIn the event this information is protected by the Federal Confidentiality of Alcohol and Drug Abuse Patient Records regulations: The Federal rules restrict any use of the information to criminally investigate or prosecute any alcohol or drug abuse patient.[facility] HospitalIn the event this information is protected by the Federal Confidentiality of Alcohol and Drug Abuse Patient Records regulations: The Federal rules restrict any use of the information to criminally investigate or prosecute any alcohol or drug abuse patient.[facility] HospitalIn the event this information is protected by the Federal Confidentiality of Alcohol and Drug Abuse Patient Records regulations: The Federal rules restrict any use of the information to criminally investigate or prosecute any alcohol or drug abuse patient.[facility] HospitalIn the event this information is protected by the Federal Confidentiality of Alcohol and Drug Abuse Patient Records regulations: The Federal rules restrict any use of the information to criminally investigate or prosecute any alcohol or drug abuse patient.[facility] HospitalIn the event this information is protected by the Federal Confidentiality of Alcohol and Drug Abuse Patient Records regulations: The Federal rules restrict any use of the information to criminally investigate or prosecute any alcohol or drug abuse patient.[facility] HospitalIn the event this information is protected by the Federal Confidentiality of Alcohol and Drug Abuse Patient Records regulations: The Federal rules restrict any use of the information to criminally investigate or prosecute any alcohol or drug abuse patient.[facility] Care Teams (unrecognized sec tion and content) 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 Specialty Start Date End Date Aisha Newton Andrea E [address] [facility] [place] [address] PCP - General Family Practice 01/13/21 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 Specialty Start Date End Date Aisha Newton [place] [address] PCP - General Family Practice 01/13/21 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 Specialty Start Date End Date Aisha Newton [place] [address] PCP - General Family Practice 01/13/21 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 Specialty Start Date End Date Aisha Newton [place] [address] PCP - General Family Practice 01/13/21 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 Specialty Start Date End Date Aisha Newton [address] [place] [address] PCP - General Family Practice 01/13/21 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 Specialty Start Date End Date Aisha Newton [address] [place] [address] PCP - General Family Practice 01/13/21 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 Specialty Start Date End Date Aisha Newton [address] [place] [address] PCP - General Family Practice 01/13/21 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 Specialty Start Date End Date Aisha Newton [address] [place] [address] PCP - General Family Practice 01/13/21 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 Specialty Start Date End Date Aisha Newton [address] [place] [address] PCP - General Family Practice 01/13/21 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 Specialty Start Date End Date Aisha Newton [address] [place] [address] PCP - General Family Practice 01/13/21 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 Specialty Start Date End Date Aisha Newton [address] [place] [address] PCP - General Family Practice 01/13/21 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 Specialty Start Date End Date Aisha Newton [address] [place] [address] PCP - General Family Practice 01/13/21 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 Specialty Start Date End Date Aisha Newton [address] [place] [address] PCP - General Family Practice 01/13/21 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 Specialty Start Date End Date Aisha Newton [address] [place] [address] PCP - General Family Practice 01/13/21 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 Specialty Start Date End Date Aisha Newton [address] [place] [address] PCP - General Family Practice 01/13/21 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 Specialty Start Date End Date Aihsa Newton [address] [place] [address] PCP - General Family Practice 01/13/21 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 Specialty Start Date End Date Aisha Newton [address] [place] [address] PCP - General Family Practice 01/13/21 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 Specialty Start Date End Date Aisha Newton [address] [place] [address] PCP - General Family Practice 01/13/21 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 Specialty Start Date End Date Aisha Newton [address] [place] [address] PCP - General Family Practice 01/13/21 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 Specialty Start Date End Date Aisha Newton [address] [place] [address] PCP - General Family Practice 01/13/21 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 Specialty Start Date End Date Aisha Newton [address] [place] [address] PCP - General Family Practice 01/13/21 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 Specialty Start Date End Date Aisha Newton [address] [place] [address] PCP - General Family Practice 01/13/21 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 Specialty Start Date End Date Aisha Newton [address] [place] [address] PCP - General Family Medicine 01/13/21 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 Specialty Start Date End Date Aisha Newton [address] [place] [address] PCP - General Family Medicine 01/13/21 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 Specialty Start Date End Date Aisha Newton [address] [place] [address] PCP - General Family Medicine 01/13/21 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 Specialty Start Date End Date Aisha Newton [address] [place] [address] PCP - General Family Medicine 01/13/21 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 Specialty Start Date End Date Aisha Newton [address] [place] [address] PCP - General Family Medicine 01/13/21 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 Specialty Start Date End Date Aisha Newton [address] [place] [address] PCP - General Family Medicine 01/13/21 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 Specialty Start Date End Date Aisha Newton [address] [place] [address] PCP - General Family Medicine 01/13/21 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 Specialty Start Date End Date Aisha Newton [address] [place] [address] PCP - General Family Medicine 01/13/21 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 Specialty Start Date End Date Aisha Newton [address] [place] [address] PCP - General Family Medicine 01/13/21 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 Specialty Start Date End Date Aisha Newton [address] [place] [address] PCP - General Family Medicine 01/13/21 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 Specialty Start Date End Date Aisha Newton [address] [place] [address] PCP - General Family Medicine 01/13/21 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 Specialty Start Date End Date Aisha Newton [address] [place] [address] PCP - General Family Medicine 01/13/21 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 Specialty Start Date End Date Aisha Newton [address] [place] [address] PCP - General Family Medicine 01/13/21 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 Specialty Start Date End Date Aisha Newton [address] [place] [address] PCP - General Family Medicine 01/13/21 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 Specialty Start Date End Date Aisha Newton [address] [place] [address] PCP - General Family Medicine 01/13/21 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 Specialty Start Date End Date Aisha Newton [address] [place] [address] PCP - General Family Medicine 01/13/21 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 Specialty Start Date End Date Aisha Newton [address] [place] [address] PCP - General Family Medicine 01/13/21 Markos Burgos MD [address] [place] [address] Primary Staff Physician Cardiology 02/22/22 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 Specialty Start Date End Date Aisha Newton [address] [place] [address] PCP - General Family Medicine 01/13/21 Markos Burgos MD [address] [place] [address] Primary Staff Physician Cardiology 02/22/22 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 Specialty Start Date End Date Aisha Newton [address] [place] [address] PCP - General Family Medicine 01/13/21 Markos Burgos MD [address] [facility] [place] [address] Primary Staff Physician Cardiology 02/22/22 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 Specialty Start Date End Date Aisha Erazo DO [address] [place] [address] [place] [address] PCP - General Family Medicine 09/29/17 02/25/21 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 Specialty Start Date End Date Aisha Erazo DO [address] [place] [place] [address] PCP - General Family Medicine 09/29/17 02/25/21 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 Specialty Start Date End Date Aisha Newton [address] [place] [address] PCP - General Family Medicine 01/13/21 Markos Burgos MD [address] [place] [address] Primary Staff Physician Cardiology 02/22/22 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 Specialty Start Date End Date Aisha Newton [address] [place] [address] PCP - General Family Medicine 01/13/21 Markos Burgos MD [address] [place] [address] Primary Staff Physician Cardiology 02/22/22 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 Specialty Start Date End Date Aisha Newton [address] [place] [address] PCP - General Family Medicine 01/13/21 Markos Burgos MD [address] [place] [address] Primary Staff Physician Cardiology 02/22/22 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 Specialty Start Date End Date Aisha Newton [address] [place] [address] PCP - General Family Medicine 01/13/21 Markos Burgos MD [address] [place] [address] Primary Staff Physician Cardiology 02/22/22 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 Specialty Start Date End Date Aisha Newton [address] [place] [address] PCP - General Family Medicine 01/13/21 Markos Burgos MD [address] [place] [address] Primary Staff Physician Cardiology 02/22/22 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 Specialty Start Date End Date Aisha Newton [address] [place] [address] PCP - General Family Medicine 01/13/21 Markos Burgos MD [address] [place] [address] Primary Staff Physician Cardiology 02/22/22 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 Specialty Start Date End Date MarcialAisha virk [address] [place] [address] PCP - General Family Medicine 01/13/21 Markos Burgos MD [address] [place] [address] Primary Staff Physician Cardiology 02/22/22 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 Specialty Start Date End Date MarcialAisha virk [address] [place] [address] PCP - General Family Medicine 01/13/21 Markos Burgos MD [address] [place] [address] Primary Staff Physician Cardiology 02/22/22 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 Specialty Start Date End Date JohnAisha pham [address] [place] [address] PCP - General Family Medicine 01/13/21 Markos Burgos MD [address] [place] [address] Primary Staff Physician Cardiology 02/22/22 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 Specialty Start Date End Date Aisha Newton [address] [place] [address] PCP - General Family Medicine 01/13/21 Markos Burgos MD [address] [place] [address] Primary Staff Physician Cardiology 02/22/22 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 Specialty Start Date End Date MarcialAisha virk [address] [place] [address] PCP - General Family Medicine 01/13/21 Markos Burgos MD [address] [place] [address] Primary Staff Physician Cardiology 02/22/22 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 Specialty Start Date End Date JohnAisha pham [address] [place] [address] PCP - General Family Medicine 01/13/21 Markos Burgos MD [address] [place] [address] Primary Staff Physician Cardiology 02/22/22 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 Specialty Start Date End Date JohnAisha pham [address] [place] [address] PCP - General Family Medicine 01/13/21 Markos Burgos MD [address] [place] [address] Primary Staff Physician Cardiology 02/22/22 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 Specialty Start Date End Date Aisha Newton [address] [place] [address] PCP - General Family Medicine 01/13/21 Markos Burgos MD [address] [place] [address] Primary Staff Physician Cardiology 02/22/22 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 Specialty Start Date End Date Aisha Newton [address] [place] [address] PCP - General Family Medicine 01/13/21 Markos Burgos MD [address] [place] [address] Primary Staff Physician Cardiology 02/22/22 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 Specialty Start Date End Date Aisha Newton [address] [place] [address] PCP - General Family Medicine 01/13/21 Markos Burgos MD [address] [place] [address] Primary Staff Physician Cardiology 02/22/22 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 Specialty Start Date End Date Aisha Newton [address] [place] [address] PCP - General Family Medicine 01/13/21 Markos Burgos MD [address] [place] [address] Primary Staff Physician Cardiology 02/22/22 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 Specialty Start Date End Date Aisha Newton [address] [place] [address] PCP - General Family Medicine 01/13/21 Markos Burgos MD [address] [place] [address] Primary Staff Physician Cardiology 02/22/22 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 Specialty Start Date End Date Aisha Newton [address] [place] [address] PCP - General Family Medicine 01/13/21 Markos Burgos MD [address] [place] [address] Primary Staff Physician Cardiology 02/22/22 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 Specialty Start Date End Date Aisha Newton [address] [place] [address] PCP - General Family Medicine 01/13/21 Markos Burgos MD [address] [place] [address] Primary Staff Physician Cardiology 02/22/22 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 Specialty Start Date End Date Aisha Newton [address] [place] [address] PCP - General Family Medicine 01/13/21 Markos Burgos MD [address] [place] [address] Primary Staff Physician Cardiology 02/22/22 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 Specialty Start Date End Date Aisha Newton [address] [place] [address] PCP - General Family Medicine 01/13/21 Markos Burgos MD [address] [place] [address] Primary Staff Physician Cardiology 02/22/22 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 Specialty Start Date End Date Aisha Newton [address] [place] [address] PCP - General Family Medicine 01/13/21 Markos Burgos MD [address] [place] [address] Primary Staff Physician Cardiology 02/22/22 Regina Decker APRN.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 MANAGER [address] [facility] [place] [address] Referring Transplant Center 08/05/22 Regina Decker APRN.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 MANAGER [address] [facility] [place] [place] [address] Home Care Provider Transplant Center 08/05/22 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 Specialty Start Date End Date AmanAisha [address] [place] [address] PCP - General Family Medicine 01/13/21 Markos Burgos MD [address] [place] [address] Primary Staff Physician Cardiology 02/22/22 Regina Decker, 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 SERVICE REPRESENTATIVE.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 MANAGER [address] [place] [address] Referring Transplant Center 08/05/22 Regina Decker APRN.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 MANAGER [address] [place] [address] Home Care Provider Transplant Center 08/05/22 Yvette Coleman RN [address] [place] [address] Product Safety Tester Post Acute Care 08/06/22 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 Specialty Start Date End Date MarcialAisha virk [address] [place] [address] PCP - General Family Medicine 01/13/21 Markos Burgos MD [address] [place] [address] Primary Staff Physician Cardiology 02/22/22 Regina Decker, 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 SERVICE REPRESENTATIVE.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 MANAGER [address] [place] [address] Referring Transplant Center 08/05/22 Regina Decker APRN.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 MANAGER [address] [place] [address] Home Care Provider Transplant Center 08/05/22 Yvette Coleman RN [address] [place] [address] Product Safety Tester Post Acute Care 08/06/22 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 Specialty Start Date End Date Aisha Newton [address] [place] [address] PCP - General Family Medicine 01/13/21 Markos Burgos MD [address] [place] [address] Primary Staff Physician Cardiology 02/22/22 Regina Decker APRN.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 MANAGER [address] [place] [address] Referring Transplant Center 08/05/22 Regina Decker APRN.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 MANAGER [address] [place] [address] Home Care Provider Transplant Center 08/05/22 Yvette Coleman RN [address] [place] [address] Product Safety Tester Post Acute Care 08/06/22 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 Specialty Start Date End Date Aisha Newton [address] [place] [address] PCP - General Family Medicine 01/13/21 Markos Burgos MD [address] [place] [address] Primary Staff Physician Cardiology 02/22/22 Regina Decker APRN.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 MANAGER [address] [place] [address] Referring Transplant Center 08/05/22 Regina Decker APRN.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 MANAGER [address] [place] [address] Home Care Provider Transplant Center 08/05/22 Yvette Coleman RN [address] [place] [address] Product Safety Tester Post Acute Care 08/06/22 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 Specialty Start Date End Date Aisha Newton [address] [place] [address] PCP - General Family Medicine 01/13/21 Markos Burgos MD [address] [place] [address] Primary Staff Physician Cardiology 02/22/22 Regina Decker APRN.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 MANAGER [address] [place] [address] Referring Transplant Center 08/05/22 Regina Decker APRN.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 MANAGER [address] [place] [address] Home Care Provider Transplant Center 08/05/22 Yvette Coleman RN [address] [place] [address] Product Safety Tester Post Acute Care 08/06/22 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 Specialty Start Date End Date Aisha Newton [address] [place] [address] PCP - General Family Medicine 01/13/21 Markos Burgos MD [address] [place] [address] Primary Staff Physician Cardiology 02/22/22 Regina Decker, ANA LAURA.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 MANAGER [address] [place] [address] Referring Transplant Center 08/05/22 Regina Decker APRN.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 MANAGER [address] [place] [address] Home Care Provider Transplant Center 08/05/22 Yvette Coleman RN [address] [place] [address] Product Safety Tester Post Acute Care 08/06/22 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 Specialty Start Date End Date Aisha Newton [address] [place] [address] PCP - General Family Medicine 01/13/21 Markos Burgos MD [address] [place] [address] Primary Staff Physician Cardiology 02/22/22 Regina Decker APRN.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 MANAGER [address] [place] [address] Referring Transplant Center 08/05/22 Regina Decker APRN.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 MANAGER [address] [place] [address] Home Care Provider Transplant Center 08/05/22 Yvette Coleman RN [address] [facility] [place] [address] Product Safety Tester Post Acute Care 08/06/22 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 Specialty Start Date End Date Aisha Newton [address] [place] [address] PCP - General Family Medicine 01/13/21 Markos Burgos MD [address] [place] [address] Primary Staff Physician Cardiology 02/22/22 Regina Decker, ANA LAURA.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 MANAGER [address] [place] [address] Referring Transplant Center 08/05/22 Regina Decker APRN.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 MANAGER [address] [place] [address] Home Care Provider Transplant Center 08/05/22 Yvette Coleman RN [address] [place] [address] Product Safety Tester Post Acute Care 08/06/22 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 Specialty Start Date End Date Aisha Newton [address] [place] [address] PCP - General Family Medicine 01/13/21 Markos Burgos MD [address] [place] [address] Primary Staff Physician Cardiology 02/22/22 Regina Decekr APRN.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 MANAGER [address] [place] [address] Referring Transplant Center 08/05/22 Regina Decker APRN.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 MANAGER [address] [place] [address] Home Care Provider Transplant Center 08/05/22 Yvette Coleman RN [address] [place] [address] Product Safety Tester Post Acute Care 08/06/22 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 Specialty Start Date End Date Aisha Newton [address] [place] [address] PCP - General Family Medicine 01/13/21 Markos Burgos MD [address] [place] [address] Primary Staff Physician Cardiology 02/22/22 Regina Decker APRN.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 MANAGER [address] [place] [address] Referring Transplant Center 08/05/22 Regina Decker APRN.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 MANAGER [address] [place] [address] Home Care Provider Transplant Center 08/05/22 Yvette Coleman RN [address] [place] [address] Product Safety Tester Post Acute Care 08/06/22 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 Specialty Start Date End Date Aisha Newton [address] [place] [address] PCP - General Family Medicine 01/13/21 Markos Burgos MD [address] [place] [address] Primary Staff Physician Cardiology 02/22/22 Regina Decker APRN.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 MANAGER [address] [place] [address] Referring Transplant Center 08/05/22 Regina Decker APRN.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 MANAGER [address] [place] [address] Home Care Provider Transplant Center 08/05/22 Yvette Coleman RN [address] [place] [address] Product Safety Tester Post Acute Care 08/06/22 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 Specialty Start Date End Date Aisha Newton [address] [place] [address] PCP - General Family Medicine 01/13/21 Markos Burgos MD [address] [place] [address] Primary Staff Physician Cardiology 02/22/22 Regina Decker APRN.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 MANAGER [address] [place] [address] Referring Transplant Center 08/05/22 Regina Decker APRN.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 MANAGER [address] [place] [address] Home Care Provider Transplant Center 08/05/22 Yvette Coleman RN [address] [place] [address] Product Safety Tester Post Acute Care 08/06/22 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 Specialty Start Date End Date Aisha Newton [address] [facility] [place] [address] PCP - General Family Medicine 01/13/21 Markos Burgos MD [address] [place] [address] Primary Staff Physician Cardiology 02/22/22 Regina Decker APRN.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 MANAGER [address] [place] [address] Referring Transplant Center 08/05/22 Regina Decker APRN.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 MANAGER [address] [place] [address] Home Care Provider Transplant Center 08/05/22 Yvette Coleman RN [address] [place] [address] Product Safety Tester Post Acute Care 08/06/22 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 Specialty Start Date End Date Aisha Newton [address] [facility] [place] [address] PCP - General Family Medicine 01/13/21 Markos Burgos MD [address] [place] [address] Primary Staff Physician Cardiology 02/22/22 Regina Decker APRN.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 MANAGER [address] [place] [address] Referring Transplant Center 08/05/22 Regina Decker APRN.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 MANAGER [address] [place] [address] Home Care Provider Transplant Center 08/05/22 Yvette Coleman RN [address] [place] [address] Product Safety Tester Post Acute Care 08/06/22 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 Specialty Start Date End Date Aisha Newton [address] [place] [address] PCP - General Family Medicine 01/13/21 Markos Burgos MD [address] [place] [address] Primary Staff Physician Cardiology 02/22/22 Regina Decker APRN.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 MANAGER [address] [place] [address] Referring Transplant Center 08/05/22 Regina Decker APRN.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 MANAGER [address] [place] [address] Home Care Provider Transplant Center 08/05/22 Yvette Coleman RN [address] [place] [address] Product Safety Tester Post Acute Care 08/06/22 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 Specialty Start Date End Date Aisha Newton [address] [facility] [place] [address] PCP - General Family Medicine 01/13/21 Markos Burgos MD [address] [place] [address] Primary Staff Physician Cardiology 02/22/22 Regina Decker APRN.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 MANAGER [address] [place] [address] Referring Transplant Center 08/05/22 Regina Decker APRN.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 MANAGER [address] [place] [address] Home Care Provider Transplant Center 08/05/22 Yvette Coleman, WILFREDO [address] [place] [address] Product Safety Tester Post Acute Care 08/06/22 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 Specialty Start Date End Date Aisha Newton [address] [facility] [place] [address] PCP - General Family Medicine 01/13/21 Markos Burgos MD [address] [place] [address] Primary Staff Physician Cardiology 02/22/22 Regina Decker, ANA LAURA.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 MANAGER [address] [place] [address] Referring Transplant Center 08/05/22 Regina Decker APRN.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 MANAGER [address] [place] [address] Home Care Provider Transplant Center 08/05/22 Yvette Coleman RN [address] [place] [address] Product Safety Tester Post Acute Care 08/06/22 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 Specialty Start Date End Date Aisha Newton [address] [facility] [place] [address] PCP - General Family Medicine 01/13/21 Markos Burgos MD [address] [place] [address] Primary Staff Physician Cardiology 02/22/22 Regina Decker APRN.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 MANAGER [address] [place] [address] Referring Transplant Center 08/05/22 Regina Decker APRN.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 MANAGER [address] [place] [address] Home Care Provider Transplant Center 08/05/22 Yvette Coleman RN [address] [place] [address] Product Safety Tester Post Acute Care 08/06/22 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 Specialty Start Date End Date Aisha Newton [address] [place] [address] PCP - General Family Medicine 01/13/21 Markos Burgos MD [address] [place] [address] Primary Staff Physician Cardiology 02/22/22 Regina Decker APRN.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 MANAGER [address] [place] [address] Referring Transplant Center 08/05/22 Regina Decker APRN.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 MANAGER [address] [place] [address] Home Care Provider Transplant Center 08/05/22 Yvette Coleman RN [address] [place] [address] Product Safety Tester Post Acute Care 08/06/22 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 Specialty Start Date End Date Aisha Newton [address] [facility] [place] [address] PCP - General Family Medicine 01/13/21 Markos Burgos MD [address] [place] [address] Primary Staff Physician Cardiology 02/22/22 Regina Decker APRN.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 MANAGER [address] [place] [address] Referring Transplant Center 08/05/22 Regina Decker APRN.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 MANAGER [address] [place] [address] Home Care Provider Transplant Center 08/05/22 Yvette Coleman RN [address] [place] [address] Product Safety Tester Post Acute Care 08/06/22 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 Specialty Start Date End Date Aisha Newton [address] [facility] [place] [address] PCP - General Family Medicine 01/13/21 Markos Burgos MD [address] [place] [address] Primary Staff Physician Cardiology 02/22/22 Regina Decker APRN.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 MANAGER [address] [place] [address] Referring Transplant Center 08/05/22 Regina Decker APRN.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 MANAGER [address] [place] [address] Home Care Provider Transplant Center 08/05/22 Yvette Coleman RN [address] [facility] [place] [address] Product Safety Tester Post Acute Care 08/06/22 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 Specialty Start Date End Date iAsha Newton [address] [place] [address] PCP - General Family Medicine 01/13/21 Markos Burgos MD [address] [place] [address] Primary Staff Physician Cardiology 02/22/22 Regina Decker APRN.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 MANAGER [address] [place] [address] Referring Transplant Center 08/05/22 Regina Decker APRN.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 MANAGER [address] [place] [address] Home Care Provider Transplant Center 08/05/22 Yvette Coleman RN [address] [facility] [place] [address] Product Safety Tester Post Acute Care 08/06/22 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 Specialty Start Date End Date Aisha Newton [address] [facility] [place] [address] PCP - General Family Medicine 01/13/21 Markos Burgos MD [address] [place] [address] Primary Staff Physician Cardiology 02/22/22 Regina Decker APRN.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 MANAGER [address] [place] [address] Referring Transplant Center 08/05/22 Regina Decker APRN.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 MANAGER [address] [place] [address] Home Care Provider Transplant Center 08/05/22 Yvette Coleman, RN [address] [place] [address] Product Safety Tester Post Acute Care 08/06/22 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 Specialty Start Date End Date Aisha Newton [address] [place] [address] PCP - General Family Medicine 01/13/21 Markos Burgos MD [address] [place] [address] Primary Staff Physician Cardiology 02/22/22 Regina Decker, ANA LAURA.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 MANAGER [address] [place] [address] Referring Transplant Center 08/05/22 Regina Decker APRN.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 MANAGER [address] [place] [address] Home Care Provider Transplant Center 08/05/22 Yvette Coleman RN [address] [place] [address] Product Safety Tester Post Acute Care 08/06/22 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 Specialty Start Date End Date Aisha Newton [address] [place] [address] PCP - General Family Medicine 01/13/21 Markos Burgos MD [address] [place] [address] Primary Staff Physician Cardiology 02/22/22 Regina Decker APRN.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 MANAGER [address] [place] [address] Referring Transplant Center 08/05/22 Regina Decker APRN.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 MANAGER [address] [place] [address] Home Care Provider Transplant Center 08/05/22 Yvette Coleman RN [address] [place] [address] Product Safety Tester Post Acute Care 08/06/22 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 Specialty Start Date End Date Aisha Newton [address] [place] [address] PCP - General Family Medicine 01/13/21 Markos Burgos MD [address] [place] [address] Primary Staff Physician Cardiology 02/22/22 Regina Decker APRN.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 MANAGER [address] [place] [address] Referring Transplant Center 08/05/22 Regina Decker APRN.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 MANAGER [address] [place] [address] Home Care Provider Transplant Center 08/05/22 Yvette Coleman RN [address] [place] [address] Product Safety Tester Post Acute Care 08/06/22 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 Specialty Start Date End Date Aisha Newton [address] [place] [address] PCP - General Family Medicine 01/13/21 Markos Burgos MD [address] [place] [address] Primary Staff Physician Cardiology 02/22/22 Regina Decker APRN.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 MANAGER [address] [place] [address] Referring Transplant Center 08/05/22 Regina Decker APRN.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 MANAGER [address] [place] [address] Home Care Provider Transplant Center 08/05/22 Yvette Coleman RN [address] [place] [address] Product Safety Tester Post Acute Care 08/06/22 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 Specialty Start Date End Date Aisha Newton [address] [facility] [place] [address] PCP - General Family Medicine 01/13/21 Markos Burgos MD [address] [place], [place] [id number] Primary Staff Physician Cardiology 02/22/22 Regina Decker APRN.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 MANAGER [address] [place] [address] Referring Transplant Center 08/05/22 Regina Decker APRN.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 MANAGER [address] [place] [address] Home Care Provider Transplant Center 08/05/22 Yvette Coleman RN [address] [facility] [place] [address] Product Safety Tester Post Acute Care 08/06/22 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 Specialty Start Date End Date Aisha Newton [address] [place] [address] PCP - General Family Medicine 01/13/21 Markos Burgos MD [address] [place] [address] Primary Staff Physician Cardiology 02/22/22 Regina Decker APRN.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 MANAGER [address] [place] [address] Referring Transplant Center 08/05/22 Regina Decker APRN.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 MANAGER [address] [place] [address] Home Care Provider Transplant Center 08/05/22 Yvette Coleman RN [address] [facility] [place], [place] [id number] Product Safety Tester Post Acute Care 08/06/22 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 Specialty Start Date End Date Aisha Newton [address] [facility] [place] [address] PCP - General Family Medicine 01/13/21 Markos Burgos MD [address] [place] [address] Primary Staff Physician Cardiology 02/22/22 Regina Decker APRN.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 MANAGER [address] [place] [address] Referring Transplant Center 08/05/22 Regina Decker APRN.INTERNATIONAL MANAGER [address] [place] [address] Home Care Provider Transplant Center 08/05/22 Yvette Coleman, RN [address] [place] [address] Product Safety Tester Post Acute Care 08/06/22 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 Specialty Start Date End Date Aisha Newton [address] [facility] [place] [address] PCP - General Family Medicine 01/13/21 Markos Burgos MD [address] [place] [address] Primary Staff Physician Cardiology 02/22/22 Regina Decker APRN.INTERNATIONAL MANAGER [address] [place] [address] Referring Transplant Center 08/05/22 Regina Decker APRN.INTERNATIONAL MANAGER [address] [place] [address] Home Care Provider Transplant Center 08/05/22 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 Specialty Start Date End Date JohnveroAisha Jim [address] [place] [address] PCP - General Family Medicine 01/13/21 Markos Burgos MD [address] [place] [address] Primary Staff Physician Cardiology 02/22/22 Regina Decker APRN.INTERNATIONAL MANAGER [address] [facility] [place] [address] Referring Transplant Center 08/05/22 Regina Decker APRN.INTERNATIONAL MANAGER [address] [place] [address] Home Care Provider Transplant Center 08/05/22 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 Specialty Start Date End Date JohnveroAisha [address] [place] [address] PCP - General Family Medicine 01/13/21 Markos Burgos MD [address] [place] [address] Primary Staff Physician Cardiology 02/22/22 Regina Decker APRN.INTERNATIONAL MANAGER [address] [facility] [place] [address] Referring Transplant Center 08/05/22 Regina Decker APRN.INTERNATIONAL MANAGER [address] [place] [address] Home Care Provider Transplant Center 08/05/22 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 Specialty Start Date End Date Marcialmoose Aisha Fernandez [address] [place] [address] PCP - General Family Medicine 01/13/21 Markos Burgos MD [address] [place] [address] Primary Staff Physician Cardiology 02/22/22 Regina Decker APRN.INTERNATIONAL MANAGER [address] [place] [address] Referring Transplant Center 08/05/22 Regina Decker APRN.INTERNATIONAL MANAGER [address] [place] [address] Home Care Provider Transplant Center 08/05/22 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 Specialty Start Date End Date MarcialmooseAisha [address] [place] [address] PCP - General Family Medicine 01/13/21 Markos Burgos MD [address] [place] [address] Primary Staff Physician Cardiology 02/22/22 Regina Decker APRN.INTERNATIONAL MANAGER [address] [place] [address] Referring Transplant Center 08/05/22 Regina Decker APRN.INTERNATIONAL MANAGER [address] [place] [address] Home Care Provider Transplant Center 08/05/22 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 Specialty Start Date End Date MarcialmooseAisha [address] [place] [address] PCP - General Family Medicine 01/13/21 Markos Burgos MD [address] [place] [address] Primary Staff Physician Cardiology 02/22/22 Regina Decker APRN.INTERNATIONAL MANAGER [address] [place] [address] Referring Transplant Center 08/05/22 Regina Decker APRN.INTERNATIONAL MANAGER [address] [place] [address] Home Care Provider Transplant Center 08/05/22 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 Specialty Start Date End Date MarcialmooseAisha [address] [place] [address] PCP - General Family Medicine 01/13/21 Markos Burgos MD [address] [place] [address] Primary Staff Physician Cardiology 02/22/22 Regina Decker APRN.INTERNATIONAL MANAGER [address] [place] [address] Referring Transplant Center 08/05/22 Regina Decker APRN.INTERNATIONAL MANAGER [address] [place], [place] [address] Home Care Provider Transplant Center 08/05/22 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 Specialty Start Date End Date Aisha Newton [address] [place] [address] PCP - General Family Medicine 01/13/21 Markos Burgos MD [address] [place] [address] Primary Staff Physician Cardiology 02/22/22 Regina Decker APRN.INTERNATIONAL MANAGER [address] [place], [place] [address] Referring Transplant Center 08/05/22 Regina Decker APRN.INTERNATIONAL MANAGER [address] [place] [address] Home Care Provider Transplant Center 08/05/22 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 Specialty Start Date End Date Aisha Newton [address] [place] [address] PCP - General Family Medicine 01/13/21 Markos Burgos MD [address] [place] [address] Primary Staff Physician Cardiology 02/22/22 Regina Decker APRN.INTERNATIONAL MANAGER [address] [place] [address] Referring Transplant Center 08/05/22 Regina Decker APRN.INTERNATIONAL MANAGER [address] [place] [address] Home Care Provider Transplant Center 08/05/22 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 Specialty Start Date End Date Aisha Newton [address] [facility] [place] [address] PCP - General Family Medicine 01/13/21 Markos Burgos MD [address] [place] [address] Primary Staff Physician Cardiology 02/22/22 Regina Decker APRN.INTERNATIONAL MANAGER [address] [place] [address] Referring Transplant Center 08/05/22 Regina Decker APRN.INTERNATIONAL MANAGER [address] [place] [address] Home Care Provider Transplant Center 08/05/22 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 Specialty Start Date End Date Aisha Newton [address] [place] [address] PCP - General Family Medicine 01/13/21 Markos Burgos MD [address] [place] [address] Primary Staff Physician Cardiology 02/22/22 Regina Decker APRN.INTERNATIONAL MANAGER [address] [place] [address] Referring Transplant Center 08/05/22 Regina Decker APRN.INTERNATIONAL MANAGER [address] [place] [address] Home Care Provider Transplant Center 08/05/22 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 Specialty Start Date End Date Aisha Newton [address] [place] [address] PCP - General Family Medicine 01/13/21 Markos Burgos MD [address] [place] [address] Primary Staff Physician Cardiology 02/22/22 Regina Decker, 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 SERVICE REPRESENTATIVE.INTERNATIONAL MANAGER [address] [place] [address] Referring Transplant Center 08/05/22 Regina Decker, 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 SERVICE REPRESENTATIVE.INTERNATIONAL MANAGER [address] [place] [address] Home Care Provider Transplant Center 08/05/22 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 Specialty Start Date End Date Aisha Newton [address] [place] [address] PCP - General Family Medicine 01/13/21 Markos Burgos MD [address] [place] [address] Primary Staff Physician Cardiology 02/22/22 Regina Decker, 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 SERVICE REPRESENTATIVE.INTERNATIONAL MANAGER [address] [place] [address] Referring Transplant Center 08/05/22 Regina Decker 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 SERVICE REPRESENTATIVE.INTERNATIONAL MANAGER [address] [place] [address] Home Care Provider Transplant Center 08/05/22 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 Specialty Start Date End Date Aisha Newton [address] [place] [address] PCP - General Family Medicine 01/13/21 Markos Burgos MD [address] [place] [address] Primary Staff Physician Cardiology 02/22/22 Regina Decker APRN.INTERNATIONAL MANAGER [address] [place] [address] Referring Transplant Center 08/05/22 Regina Decker APRN.INTERNATIONAL MANAGER [address] [place] [address] Home Care Provider Transplant Center 08/05/22 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 Specialty Start Date End Date Aisha Newton MD [address] [place] [address] PCP - General Family Medicine 01/13/21 Markos Burgos MD [address] [place] [address] Primary Staff Physician Cardiology 02/22/22 Regina Decker, 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 SERVICE REPRESENTATIVE.INTERNATIONAL MANAGER [address] [place] [address] Referring Transplant Center 08/05/22 Regina Decker APRN.INTERNATIONAL MANAGER [address] [place] [address] Home Care Provider Transplant Center 08/05/22 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 Specialty Start Date End Date Asiha Newton MD [address] [place] [address] PCP - General Family Medicine 01/13/21 Markos Burgos MD [address] [place] [address] Primary Staff Physician Cardiology 02/22/22 Regina Decker APRN.INTERNATIONAL MANAGER [address] [place] [address] Referring Transplant Center 08/05/22 Regina Decker APRN.INTERNATIONAL MANAGER [address] [place] [address] Home Care Provider Transplant Center 08/05/22 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 Specialty Start Date End Date Aisha Newton MD [address] [facility] [place] [address] PCP - General Family Medicine 01/13/21 Markos Burgos MD [address] [place] [address] Primary Staff Physician Cardiology 02/22/22 Regina Decker APRN.INTERNATIONAL MANAGER [address] [place] [address] Referring Transplant Center 08/05/22 Regina Decker APRN.INTERNATIONAL MANAGER [address] [place] [address] Home Care Provider Transplant Center 08/05/22 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 Specialty Start Date End Date Aisha Newton MD [address] [facility] [place] [address] PCP - General Family Medicine 01/13/21 Markos Burgos MD [address] [place] [address] Primary Staff Physician Cardiology 02/22/22 Regina Decker APRN.INTERNATIONAL MANAGER [address] [place] [address] Referring Transplant Center 08/05/22 Regina Decker APRN.INTERNATIONAL MANAGER [address] [place] [address] Home Care Provider Transplant Center 08/05/22 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 Specialty Start Date End Date Aisha Newton MD [address] [place] [address] PCP - General Family Medicine 01/13/21 Markos Burgos MD [address] [place] [address] Primary Staff Physician Cardiology 02/22/22 Regina Decker APRN.INTERNATIONAL MANAGER [address] [place] [address] Referring Transplant Center 08/05/22 Regina Decker APRN.INTERNATIONAL MANAGER [address] [place] [address] Home Care Provider Transplant Center 08/05/22 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 Specialty Start Date End Date Aisha Newton MD [address] [place] [address] PCP - General Family Medicine 01/13/21 Markos Burgos MD [address] [place] [address] Primary Staff Physician Cardiology 02/22/22 Regina Decker APRN.INTERNATIONAL MANAGER [address] [place] [address] Referring Transplant Center 08/05/22 Regina Decker APRN.INTERNATIONAL MANAGER [address] [place] [address] Home Care Provider Transplant Center 08/05/22 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 Specialty Start Date End Date Aisha Newton MD [address] [place] [address] PCP - General Family Medicine 01/13/21 Markos Burgos MD [address] [place] [address] Primary Staff Physician Cardiology 02/22/22 Regina Decker APRN.INTERNATIONAL MANAGER [address] [place] [address] Referring Transplant Center 08/05/22 Regina Decker APRN.INTERNATIONAL MANAGER [address] [place] [address] Home Care Provider Transplant Center 08/05/22 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 Specialty Start Date End Date Aisha Newton MD [address] [place] [address] PCP - General Family Medicine 01/13/21 Markos Burgos MD [address] [place] [address] Primary Staff Physician Cardiology 02/22/22 Regina Dceker, ANA LAURA.INTERNATIONAL MANAGER [address] [place] [address] Referring Transplant Center 08/05/22 Regina Decker APRN.INTERNATIONAL MANAGER [address] [place] [address] Home Care Provider Transplant Center 08/05/22 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 Specialty Start Date End Date Aisha Newton MD [address] [place] [address] PCP - General Family Medicine 01/13/21 Markos Burgos MD [address] [place] [address] Primary Staff Physician Cardiology 02/22/22 Regina Decker, ANA LAURA.INTERNATIONAL MANAGER [address] [place] [address] Referring Transplant Center 08/05/22 Regina Decker APRN.INTERNATIONAL MANAGER [address] [place] [address] Home Care Provider Transplant Center 08/05/22 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 Specialty Start Date End Date Aisha Newton MD [address] [place] [address] PCP - General Family Medicine 01/13/21 Markos Burgos MD [address] [place] [address] Primary Staff Physician Cardiology 02/22/22 Regina Decker APRN.INTERNATIONAL MANAGER [address] [place] [address] Referring Transplant Center 08/05/22 Regina Decker APRN.INTERNATIONAL MANAGER [address] [place] [address] Home Care Provider Transplant Center 08/05/22 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 Specialty Start Date End Date Aisha Newton MD [address] [place] [address] PCP - General Family Medicine 01/13/21 Markos Burgos MD [address] [place] [address] Primary Staff Physician Cardiology 02/22/22 Regina Decker, ANA LAURA.INTERNATIONAL MANAGER [address] [place] [address] Referring Transplant Center 08/05/22 Regina Decker APRN.INTERNATIONAL MANAGER [address] [place] [address] Home Care Provider Transplant Center 08/05/22 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 Specialty Start Date End Date Aisha Newton MD [address] [place] [address] PCP - General Family Medicine 01/13/21 Markos Burgos MD [address] [place] [address] Primary Staff Physician Cardiology 02/22/22 Regina Decker APRN.INTERNATIONAL MANAGER [address] [place] [address] Referring Transplant Center 08/05/22 Regina Decker APRN.INTERNATIONAL MANAGER [address] [place], [place] [address] Home Care Provider Transplant Center 08/05/22 Team Status: Active Member Role Status Dates Dr. Aisha Erazo MD Family Provider Active Dr. Aisha Newton MD Primary Care Provider Active Team Status: Inactive Member Role Status Dates Dr. Aisha Newton MD Primary Care Provider Active Dr. Leila Veras MD Attending Provider, Referring Pr ovider Active 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 Specialty Start Date End Date Aisha Newton MD [address] [place] [address] PCP - General Family Medicine 01/13/21 Markos Burgos MD [address] [place] [address] Primary Staff Physician Cardiology 02/22/22 Regina Decker APRN.INTERNATIONAL MANAGER [address] [place], [place] [id number] Referring Transplant Center 08/05/22 Regina Decker APRN.INTERNATIONAL MANAGER [address] [place], [place] [id number] Home Care Provider Transplant Center 08/05/22 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 Specialty Start Date End Date Aisha Newton MD [address] [facility] [place] [address] PCP - General Family Medicine 01/13/21 Markos Burgos MD [address] [place] [address] Primary Staff Physician Cardiology 02/22/22 Regina Decker APRN.INTERNATIONAL MANAGER [address] [place] [address] Referring Transplant Center 08/05/22 Regina Decker APRN.INTERNATIONAL MANAGER [address] [place] [address] Home Care Provider Transplant Center 08/05/22 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 Specialty Start Date End Date Aisha Newton MD [address] [place] [address] PCP - General Family Medicine 01/13/21 Markos Burgos MD [address] [place] [address] Primary Staff Physician Cardiology 02/22/22 Regina Decker APRN.INTERNATIONAL MANAGER [address] [place] [address] Referring Transplant Center 08/05/22 Regina Decker APRN.INTERNATIONAL MANAGER [address] [place], [place] [address] Home Care Provider Transplant Center 08/05/22 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 Specialty Start Date End Date Aisha Newton MD [address] [place] [address] PCP - General Family Medicine 01/13/21 Markos Burgos MD [address] [place] [address] Primary Staff Physician Cardiology 02/22/22 Regina Decker APRN.INTERNATIONAL MANAGER [address] [place] [address] Referring Transplant Center 08/05/22 Regina Decker APRN.INTERNATIONAL MANAGER [address] [place] [address] Home Care Provider Transplant Center 08/05/22 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 Specialty Start Date End Date Aisha Newton MD [address] [place] [address] PCP - General Family Medicine 01/13/21 Markos Burgos MD [address] [place] [address] Primary Staff Physician Cardiology 02/22/22 Regina Decker APRN.INTERNATIONAL MANAGER [address] [place], [place] [address] Referring Transplant Center 08/05/22 Regina Decker APRN.INTERNATIONAL MANAGER [address] [place], [place] [address] Home Care Provider Transplant Center 08/05/22 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 Specialty Start Date End Date Aisha Newton MD [address] [place] [address] PCP - General Family Medicine 01/13/21 Markos Burgos MD [address] [place], [place] [address] Primary Staff Physician Cardiology 02/22/22 Regina Decker APRN.INTERNATIONAL MANAGER [address] [place], [place] [id number] Referring Transplant Center 08/05/22 Regina Decker APRN.INTERNATIONAL MANAGER [address] [place] [address] Home Care Provider Transplant Center 08/05/22 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 Specialty Start Date End Date Aisha Newton MD [address] [place] [address] PCP - General Family Medicine 01/13/21 Markos Burgos MD [address] [place] [address] Primary Staff Physician Cardiology 02/22/22 Regina Decker APRN.INTERNATIONAL MANAGER [address] [place], [place] [id number] Referring Transplant Center 08/05/22 Regina Decker APRN.INTERNATIONAL MANAGER [address] [place], [place] [address] Home Care Provider Transplant Center 08/05/22 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 Specialty Start Date End Date Aisha Newton MD [address] [place] [address] PCP - General Family Medicine 01/13/21 Markos Burgos MD [address] [place], [place] [id number] Primary Staff Physician Cardiology 02/22/22 Regina Decker APRN.INTERNATIONAL MANAGER [address] [place], [place] [address] Referring Transplant Center 08/05/22 Regina Decker APRN.INTERNATIONAL MANAGER [address] [place] [address] Home Care Provider Transplant Center 08/05/22 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 Specialty Start Date End Date Aisha Newton MD [address] [place] [address] PCP - General Family Medicine 01/13/21 Markos Burgos MD [address] [place] [address] Primary Staff Physician Cardiology 02/22/22 Regina Decker APRN.INTERNATIONAL MANAGER [address] [place] [address] Referring Transplant Center 08/05/22 Regina Decker APRN.INTERNATIONAL MANAGER [address] [place], [place] [id number] Home Care Provider Transplant Center 08/05/22 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 Specialty Start Date End Date Aisha Newton MD [address] [place] [address] PCP - General Family Medicine 01/13/21 Markos Burgos MD [address] [place], [place] [id number] Primary Staff Physician Cardiology 02/22/22 Regina Decker APRN.INTERNATIONAL MANAGER [address] [place], [place] [id number] Referring Transplant Center 08/05/22 Regina Decker APRN.INTERNATIONAL MANAGER [address] [place] [address] Home Care Provider Transplant Center 08/05/22 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 Specialty Start Date End Date Aisha Newton MD [address] [place] [address] PCP - General Family Medicine 01/13/21 Markos Burgos MD [address] [place] [address] Primary Staff Physician Cardiology 02/22/22 Regina Decker APRN.INTERNATIONAL MANAGER [address] [place], [place] [phone] Referring Transplant Center 08/05/22 Regina Decker APRN.INTERNATIONAL MANAGER [address] [place] [address] Home Care Provider Transplant Center 08/05/22 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 Specialty Start Date End Date Aisha Newton MD [address] [facility] [place] [address] PCP - General Family Medicine 01/13/21 Markos Burgos MD [address] [place] [place], [place] [id number] Primary Staff Physician Cardiology 02/22/22 Regina Decker, 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 SERVICE REPRESENTATIVE.INTERNATIONAL MANAGER [address] [place], [place] [phone] Referring Transplant Center 08/05/22 Regina Decker, 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 SERVICE REPRESENTATIVE.INTERNATIONAL MANAGER [address] [place], [place] [phone] Home Care Provider Transplant Center 08/05/22 Team Status: Active Member Role Status Dates Dr. Aisha Erazo MD Family Provider Active No Primary Care Physician Primary Care Provider Active Team Status: Inactive Member Role Status Dates No Primary Care Physician Primary Care Provider Active Dr. Leila Veras MD Attending Provider, Referring Pr ovider Active 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 Specialty Start Date End Date Aisha Newton MD [address] [place] [address] PCP - General Family Medicine 01/13/21 Markos Burgos MD [address] [place], [place] [phone] Primary Staff Physician Cardiology 02/22/22 Regina Decker, 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 SERVICE REPRESENTATIVE.INTERNATIONAL MANAGER [address] [place] [address] Referring Transplant Center 08/05/22 Regina Decker APRN.INTERNATIONAL MANAGER [address] [place] [address] Home Care Provider Transplant Center 08/05/22 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 Specialty Start Date End Date Shukri Juárez MD [address] [place] [address] PCP - General 11/07/18 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 Specialty Start Date End Date Shukri Juárez MD [address] [place] [address] PCP - General 11/07/18 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 Specialty Start Date End Date Aisha Newton MD [address] [place], [place] [phone] PCP - General Family Medicine 01/13/21 Markos Burgos MD [address] [place] [address] Primary Staff Physician Cardiology 02/22/22 Regina Decker APRN.INTERNATIONAL MANAGER [address] [place] [address] Referring Transplant Center 08/05/22 Regina Decker APRN.INTERNATIONAL MANAGER [address] [place] [address] Home Care Provider Transplant Center 08/05/22 Tushar Juárez OD [address] [place] [address] Optometry 05/27/23 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 Specialty Start Date End Date Aisha Newton MD [address] [place] [address] PCP - General Family Medicine 01/13/21 Markos Burgos MD [address] [place], [place] [phone] Primary Staff Physician Cardiology 02/22/22 Regina Decker APRN.INTERNATIONAL MANAGER [address] [place], [place] [phone] Referring Transplant Center 08/05/22 Regina Decker APRN.INTERNATIONAL MANAGER [address] [place], [place] [id number] Home Care Provider Transplant Center 08/05/22 Tushar Juárez OD [address] [place] [address] Optometry 05/27/23 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 Specialty Start Date End Date Aisha Newton MD [address] [place] [address] PCP - General Family Medicine 01/13/21 Markos Burgos MD [address] [place] [address] Primary Staff Physician Cardiology 02/22/22 Regina Decker APRN.INTERNATIONAL MANAGER [address] [place] [address] Referring Transplant Center 08/05/22 Regina Decker APRN.INTERNATIONAL MANAGER [address] [place] [address] Home Care Provider Transplant Center 08/05/22 Tushar Juárez OD [address] [place] [address] Optometry 05/27/23 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 Specialty Start Date End Date Aisha Newton MD [address] [place] [address] PCP - General Family Medicine 01/13/21 Markos Burgos MD [address] [place] [address] Primary Staff Physician Cardiology 02/22/22 Regina Decker APRN.INTERNATIONAL MANAGER [address] [place] [address] Referring Transplant Center 08/05/22 Regina Decker APRN.INTERNATIONAL MANAGER [address] [place] [address] Home Care Provider Transplant Center 08/05/22 Tushar Juárez OD [address] [place] [address] Optometry 05/27/23 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 Specialty Start Date End Date Keshav Phillips APRN.INTERNATIONAL MANAGER [address] [place], [place] 998991 PCP - General Family Medicine 07/11/23 Markos Burgos MD [address] [place] [address] Primary Staff Physician Cardiology 02/22/22 Regina Decker APRN.INTERNATIONAL MANAGER [address] [place] [address] Referring Transplant Center 08/05/22 Regina Decker APRN.INTERNATIONAL MANAGER [address] [place] [address] Home Care Provider Transplant Center 08/05/22 Tushar Juárez OD [address] [place] [address] Optometry 05/27/23 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 Specialty Start Date End Date Shukri Juárez MD [address] [place] [phone] PCP - General 11/07/18 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 Specialty Start Date End Date Keshav Phillips APRN.INTERNATIONAL MANAGER [facility] [place] [address] PCP - General Family Medicine 07/11/23 Markos Burgos MD [address] [place] [address] Primary Staff Physician Cardiology 02/22/22 Regina Decker APRN.INTERNATIONAL MANAGER [address] [place] [address] Referring Transplant Center 08/05/22 Regina Decker APRN.INTERNATIONAL MANAGER [address] [place] [address] Home Care Provider Transplant Center 08/05/22 Tushar Juárez OD [address] [place] [address] Optometry 05/27/23 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 Specialty Start Date End Date Keshav Phillips APRN.INTERNATIONAL MANAGER [address] [place] [address] [phone] PCP - General Family Medicine 07/11/23 Markos Burgos MD [address] [place], [place] [phone] Primary Staff Physician Cardiology 02/22/22 Regina Decker, ANA LAURA.INTERNATIONAL MANAGER [address] [place] [address] Referring Transplant Center 08/05/22 Regina Decker, ANA LAURA.INTERNATIONAL MANAGER [address] [place], [place] [phone] Home Care Provider Transplant Center 08/05/22 Tushar Juárez OD [address] [place] [address] Optometry 05/27/23 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 Specialty Start Date End Date Keshav Phillips, 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 SERVICE REPRESENTATIVE.INTERNATIONAL MANAGER [address] [place] [address] [phone] PCP - General Family Medicine 07/11/23 Markos Burgos MD [address] [place], [place] [phone] Primary Staff Physician Cardiology 02/22/22 Regina Decker APRN.INTERNATIONAL MANAGER [address] [place], [place] [phone] Referring Transplant Center 08/05/22 Regina Decker APRN.INTERNATIONAL MANAGER [address] [place], [place] [phone] Home Care Provider Transplant Center 08/05/22 Tushar Juárez OD [facility] [place], [place] [phone] Optometry 05/27/23 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 Specialty Start Date End Date Keshav Phillips APRN.INTERNATIONAL MANAGER [address] [place] [address] [phone] PCP - General Family Medicine 07/11/23 Markos Burgos MD [address] [place] [address] Primary Staff Physician Cardiology 02/22/22 Regina Decker APRN.INTERNATIONAL MANAGER [address] [place] [address] Referring Transplant Center 08/05/22 Regina Decker APRN.INTERNATIONAL MANAGER [address] [place] [address] Home Care Provider Transplant Center 08/05/22 Tushar Juárez OD [facility] [place] [address] Optometry 05/27/23 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 Specialty Start Date End Date Keshav Phillips APRN.INTERNATIONAL MANAGER [address] [place] [address] [id number] PCP - General Family Medicine 07/11/23 Markos Burgos MD [address] [place] [address] Primary Staff Physician Cardiology 02/22/22 Regina Decker APRN.INTERNATIONAL MANAGER [address] [place] [address] Referring Transplant Center 08/05/22 Regina Decker APRN.INTERNATIONAL MANAGER [address] [place] [address] Home Care Provider Transplant Center 08/05/22 Tushar Juárez OD [address] [place], [place] [phone] Optometry 05/27/23 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 Specialty Start Date End Date Keshav Phillips APRN.INTERNATIONAL MANAGER [address] [place] [address] [phone] PCP - General Family Medicine 07/11/23 Markos Burgos MD [address] [place] [address] Primary Staff Physician Cardiology 02/22/22 Regina Decker APRN.INTERNATIONAL MANAGER [address] [place] [address] Referring Transplant Center 08/05/22 Regina Decker APRN.INTERNATIONAL MANAGER [address] [place] [address] Home Care Provider Transplant Center 08/05/22 Tushar Juárez OD [address] [place] [address] Optometry 05/27/23 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 Specialty Start Date End Date Keshav Phillips, 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 SERVICE REPRESENTATIVE.INTERNATIONAL MANAGER [address] [place] [address] PCP - General Family Medicine 07/11/23 Markos Burgos MD [address] [place], [place] [phone] Primary Staff Physician Cardiology 02/22/22 Regina Decker, 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 SERVICE REPRESENTATIVE.INTERNATIONAL MANAGER [address] [place], [place] [phone] Referring Transplant Center 08/05/22 Regina Decker, 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 SERVICE REPRESENTATIVE.INTERNATIONAL MANAGER [address] [place], [place] [phone] Home Care Provider Transplant Center 08/05/22 Tushar Juárez OD [address] [place] [address] Optometry 05/27/23 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 Specialty Start Date End Date Keshav Phillips, 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 SERVICE REPRESENTATIVE.INTERNATIONAL MANAGER [address] [place] [address] [phone] PCP - General Family Medicine 07/11/23 Markos Burgos MD [address] [place], [place] [phone] Primary Staff Physician Cardiology 02/22/22 Regina Decker APRN.INTERNATIONAL MANAGER [address] [place] [address] Referring Transplant Center 08/05/22 Regina Decker APRN.INTERNATIONAL MANAGER [address] [place] [address] Home Care Provider Transplant Center 08/05/22 Tushar Juárez OD [facility] [place], [place] 7704207 Optometry 05/27/23 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 Specialty Start Date End Date Keshav Phillips APRN.INTERNATIONAL MANAGER [address] [place] [address] [phone] PCP - General Family Medicine 07/11/23 Markos Burgos MD [address] [place] [address] Primary Staff Physician Cardiology 02/22/22 Regina Decker, ANA LAURA.INTERNATIONAL MANAGER [address] [place] [address] Referring Transplant Center 08/05/22 Regina Decker APRN.INTERNATIONAL MANAGER [address] [place] [address] Home Care Provider Transplant Center 08/05/22 Tushar Juárez OD [address] [place], [place] [phone] Optometry 05/27/23 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 Specialty Start Date End Date Keshav Phillips APRN.INTERNATIONAL MANAGER [address] [place] [address] [phone] PCP - General Family Medicine 07/11/23 Markos Burgos MD [address] [place] [address] Primary Staff Physician Cardiology 02/22/22 Regina Decker APRN.INTERNATIONAL MANAGER [address] [place], [place] 1032295 Referring Transplant Center 08/05/22 Regina Decker APRN.INTERNATIONAL MANAGER [address] [place] [address] Home Care Provider Transplant Center 08/05/22 Tushar Juárez OD [address] [place], [place] 7053[address] Optometry 05/27/23 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 Specialty Start Date End Date Keshav Phillips APRN.INTERNATIONAL MANAGER [address] [place] [address] [phone] PCP - General Family Medicine 07/11/23 Markos Burgos MD [address] [place] [address] Primary Staff Physician Cardiology 02/22/22 Regina Decker APRN.INTERNATIONAL MANAGER [address] [place] [address] Referring Transplant Center 08/05/22 Regina Decker APRN.INTERNATIONAL MANAGER [address] [place] [address] Home Care Provider Transplant Center 08/05/22 Tushar Juárez OD [address] [place] [address] Optometry 05/27/23 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 Specialty Start Date End Date Keshav Phillips, 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 SERVICE REPRESENTATIVE.INTERNATIONAL MANAGER [address] [place] [address]01 PCP - General Family Medicine 07/11/23 Markos Burgos MD [address] [place], [place] [phone] Primary Staff Physician Cardiology 02/22/22 Regina Decker APRN.INTERNATIONAL MANAGER [address] [place] [address] Referring Transplant Center 08/05/22 Regina Decker APRN.INTERNATIONAL MANAGER [address] [place] [address] Home Care Provider Transplant Center 08/05/22 Tushar Juárez OD [address] [place] [address] Optometry 05/27/23 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 Specialty Start Date End Date Keshav Phillips, 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 SERVICE REPRESENTATIVE.INTERNATIONAL MANAGER [address] [place] [address] [phone] PCP - General Family Medicine 07/11/23 Markos Burgos MD [address] [place], [place] [phone] Primary Staff Physician Cardiology 02/22/22 Regina Decker APRN.INTERNATIONAL MANAGER [address] [place], [place] [phone] Referring Transplant Center 08/05/22 Regina Decker APRN.INTERNATIONAL MANAGER [address] [place], [place] [phone] Home Care Provider Transplant Center 08/05/22 Tushar Juárez OD [facility] [place], [place] 6550307 Optometry 05/27/23 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 Specialty Start Date End Date Keshav Phillips APRN.INTERNATIONAL MANAGER [address] [place] [address]1970 PCP - General Family Medicine 07/11/23 Markos Burgos MD [address] [place], [place] [phone] Primary Staff Physician Cardiology 02/22/22 Regina Decker APRN.INTERNATIONAL MANAGER [address] [place], [place] [phone] Referring Transplant Center 08/05/22 Regina Decker APRN.INTERNATIONAL MANAGER [address] [place] [address] Home Care Provider Transplant Center 08/05/22 Tushar Juárez OD [address] [place], [place] [phone] Optometry 05/27/23 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 Specialty Start Date End Date Keshav Phillips APRN.INTERNATIONAL MANAGER [address] [place], [place] 561671 PCP - General Family Medicine 07/11/23 Markos Burgos MD [address] [place], [place] [phone] Primary Staff Physician Cardiology 02/22/22 Regina Decker APRN.INTERNATIONAL MANAGER [address] [place], [place] [phone] Referring Transplant Center 08/05/22 Regina Decker APRN.INTERNATIONAL MANAGER [address] [place] [address] Home Care Provider Transplant Center 08/05/22 Tushar Juárez OD [address] [place], [place] 7053[address] Optometry 05/27/23 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 Specialty Start Date End Date Keshav Phillips APRN.INTERNATIONAL MANAGER [address] [place] [address] [phone] PCP - General Family Medicine 07/11/23 Markos Burgos MD [address] [place] [address] Primary Staff Physician Cardiology 02/22/22 Regina Decker APRN.INTERNATIONAL MANAGER [address] [place] [address] Referring Transplant Center 08/05/22 Regina Decker APRN.INTERNATIONAL MANAGER [address] [place] [address] Home Care Provider Transplant Center 08/05/22 Tushar [place] [address] [place] [address] Optometry 05/27/23 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 Specialty Start Date End Date Keshav Phillips APRN.INTERNATIONAL MANAGER [address] [place] [address] 60087 PCP - General Family Medicine 07/11/23 Markos Burgos MD [address] [place], [place] [phone] Primary Staff Physician Cardiology 02/22/22 Regina Decker APRN.INTERNATIONAL MANAGER [address] [place] [address] Referring Transplant Center 08/05/22 Regina Decker APRN.INTERNATIONAL MANAGER [address] [place] [address] Home Care Provider Transplant Center 08/05/22 Tushar Juárez OD [address] [place], [place] 7053307 Optometry 05/27/23 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 Specialty Start Date End Date Keshav Phillips, 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 SERVICE REPRESENTATIVE.INTERNATIONAL MANAGER [address] [place] [address] [phone] PCP - General Family Medicine 07/11/23 Markos Burgos MD [address] [place], [place] [phone] Primary Staff Physician Cardiology 02/22/22 Regina Decker APRN.INTERNATIONAL MANAGER [address] [place], [place] [phone] Referring Transplant Center 08/05/22 Regina Decker APRN.INTERNATIONAL MANAGER [address] [place], [place] [phone] Home Care Provider Transplant Center 08/05/22 Tushar Juárez OD [address] [place], [place] 7929807 Optometry 05/27/23 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 Specialty Start Date End Date Keshav Phillips APRN.INTERNATIONAL MANAGER [facility] [place] [address] PCP - General Family Medicine 07/11/23 Markos Burgos MD [address] [place] [address] Primary Staff Physician Cardiology 02/22/22 Regina Decker APRN.INTERNATIONAL MANAGER [address] [place] [address] Referring Transplant Center 08/05/22 Regina Decker APRN.INTERNATIONAL MANAGER [address] [place] [address] Home Care Provider Transplant Center 08/05/22 Tuhsar Juárez OD [address] [place] [address] Optometry 05/27/23 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 Specialty Start Date End Date Keshav Phillips APRN.INTERNATIONAL MANAGER [address] [place], [place] 068701 PCP - General Family Medicine 07/11/23 Markos Burgos MD [address] [place] [address] Primary Staff Physician Cardiology 02/22/22 Regina Decker APRN.INTERNATIONAL MANAGER [address] [place] [address] Referring Transplant Center 08/05/22 Regina Decker APRN.INTERNATIONAL MANAGER [address] [place] [address] Home Care Provider Transplant Center 08/05/22 Tushar Juárez OD [address] [place] [phone] Optometry 05/27/23 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 Specialty Start Date End Date Keshav Phillips APRN.INTERNATIONAL MANAGER [address] [place] [address] [phone] PCP - General Family Medicine 07/11/23 Markos Burgos MD [address] [place], [place] [phone] Primary Staff Physician Cardiology 02/22/22 Regina Decker APRN.INTERNATIONAL MANAGER [address] [place], [place] [phone] Referring Transplant Center 08/05/22 Regina Decker APRN.INTERNATIONAL MANAGER [address] [place] [address] Home Care Provider Transplant Center 08/05/22 Tushar Juárez OD [address] [place] [address] Optometry 05/27/23 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 Specialty Start Date End Date Keshav Phillips, 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 SERVICE REPRESENTATIVE.INTERNATIONAL MANAGER [address] [place] [address] 9[address]67 PCP - General Family Medicine 07/11/23 Markos Burgos MD [address] [place] [address] Primary Staff Physician Cardiology 02/22/22 Regina Decker, 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 SERVICE REPRESENTATIVE.INTERNATIONAL MANAGER [address] [place] [address] Referring Transplant Center 08/05/22 Regina Decker, 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 SERVICE REPRESENTATIVE.INTERNATIONAL MANAGER [address] [place] [address] Home Care Provider Transplant Center 08/05/22 Tushar Juárez OD [address] [place] [address] 40412 Optometry 05/27/23 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 Specialty Start Date End Date Keshav Phillips, 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 SERVICE REPRESENTATIVE.INTERNATIONAL MANAGER [address] [place] [address] [phone] PCP - General Family Medicine 07/11/23 Markos Burgos MD [address] [place], [place] [phone] Primary Staff Physician Cardiology 02/22/22 Regina Decker 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 SERVICE REPRESENTATIVE.INTERNATIONAL MANAGER [address] [place] [address] Referring Transplant Center 08/05/22 Regina Decker, 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 SERVICE REPRESENTATIVE.INTERNATIONAL MANAGER [address] [place], [place] [phone] Home Care Provider Transplant Center 08/05/22 Tushar Juárez OD [address] [place] [address] Optometry 05/27/23 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 Specialty Start Date End Date Keshav Phillips APRN.INTERNATIONAL MANAGER [address] [place] [address] [phone] PCP - General Family Medicine 07/11/23 Markos Burgos MD [address] [place], [place] [phone] Primary Staff Physician Cardiology 02/22/22 Regina Decker, 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 SERVICE REPRESENTATIVE.INTERNATIONAL MANAGER [address] [place] [address] Referring Transplant Center 08/05/22 Regina Decker, 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 SERVICE REPRESENTATIVE.INTERNATIONAL MANAGER [address] [place] [address] Home Care Provider Transplant Center 08/05/22 Tushar Juárez OD [address] [place] [address] Optometry 05/27/23 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 Specialty Start Date End Date Keshav Phillips APRN.INTERNATIONAL MANAGER [facility] [place], [place] 360091 PCP - General Family Medicine 07/11/23 Markos Burgos MD [address] [place] [place], [place] [phone] Primary Staff Physician Cardiology 02/22/22 Regina Decker APRN.INTERNATIONAL MANAGER [address] [place], [place] [phone] Referring Transplant Center 08/05/22 Regina Decker APRN.INTERNATIONAL MANAGER [address] [place], [place] [phone] Home Care Provider Transplant Center 08/05/22 Tushar Juárez OD [address] [place] [address] 48[address] Optometry 05/27/23 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 Specialty Start Date End Date Keshav Phillips APRN.INTERNATIONAL MANAGER [address] [place] [address] [phone] PCP - General Family Medicine 07/11/23 Markos Burgos MD [address] [place], [place] [phone] Primary Staff Physician Cardiology 02/22/22 Regina Decker APRN.INTERNATIONAL MANAGER [address] [place], [place] [phone] Referring Transplant Center 08/05/22 Regina Decker APRN.INTERNATIONAL MANAGER [address] [place] [address] Home Care Provider Transplant Center 08/05/22 Tushar Juárez OD [address] [place] [address] Optometry 05/27/23 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 Specialty Start Date End Date Keshav Phillips 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 SERVICE REPRESENTATIVE.INTERNATIONAL MANAGER [address] [place] [address] [phone] PCP - General Family Medicine 07/11/23 Markos Burgos MD [address] [place] [address] Primary Staff Physician Cardiology 02/22/22 Regina Decker, 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 SERVICE REPRESENTATIVE.INTERNATIONAL MANAGER [address] [place] [address] Referring Transplant Center 08/05/22 Regina Decker, 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 SERVICE REPRESENTATIVE.INTERNATIONAL MANAGER [address] [place] [address] Home Care Provider Transplant Center 08/05/22 Tushar Juárez OD [facility] [place] [address] Optometry 05/27/23 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 Specialty Start Date End Date Keshav Phillips 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 SERVICE REPRESENTATIVE.INTERNATIONAL MANAGER [address] [place] [address] [phone] PCP - General Family Medicine 07/11/23 Markos Burgos MD [address] [place] [address] Primary Staff Physician Cardiology 02/22/22 Regina Decker APRN.INTERNATIONAL MANAGER [address] [place] [address] Referring Transplant Center 08/05/22 Regina Decker APRN.INTERNATIONAL MANAGER [address] [place] [address] Home Care Provider Transplant Center 08/05/22 Tushar Juárez OD [address] [place], [place] [phone] Optometry 05/27/23 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 Specialty Start Date End Date Keshav Phillips APRN.INTERNATIONAL MANAGER [address] [place] [address] 10887 PCP - General Family Medicine 07/11/23 Markos Burgos MD [address] [place] [address] Primary Staff Physician Cardiology 02/22/22 Regina Decker, 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 SERVICE REPRESENTATIVE.INTERNATIONAL MANAGER [address] [place] [address] Referring Transplant Center 08/05/22 Regina Decker 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 SERVICE REPRESENTATIVE.INTERNATIONAL MANAGER [address] [place] [address] Home Care Provider Transplant Center 08/05/22 Tushar Juárez OD [facility] [place], [place] [id number] Optometry 05/27/23 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 Specialty Start Date End Date Keshav Phillips APRN.INTERNATIONAL MANAGER [address] [place] [address] [phone] PCP - General Family Medicine 07/11/23 Markos Burgos MD [address] [place] [place], [place] [phone] Primary Staff Physician Cardiology 02/22/22 Regina Decker 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 SERVICE REPRESENTATIVE.INTERNATIONAL MANAGER [address] [place], [place] [phone] Referring Transplant Center 08/05/22 Regina Decker APRN.INTERNATIONAL MANAGER [address] [place], [place] [phone] Home Care Provider Transplant Center 08/05/22 Tushar Juárez OD [address] [place], [place] [phone] Optometry 05/27/23 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 Specialty Start Date End Date Keshav Phillips APRN.INTERNATIONAL MANAGER [address] [place] [address] [phone] PCP - General Family Medicine 07/11/23 Markos Burgos MD [address] [place] [address] Primary Staff Physician Cardiology 02/22/22 Regina Decker 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 SERVICE REPRESENTATIVE.INTERNATIONAL MANAGER [address] [place] [address] Referring Transplant Center 08/05/22 Regina Decker APRN.INTERNATIONAL MANAGER [address] [place] [address] Home Care Provider Transplant Center 08/05/22 Tushar Juárez OD [address] [place] [address] Optometry 05/27/23 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 Specialty Start Date End Date Keshav Phillips 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 SERVICE REPRESENTATIVE.INTERNATIONAL MANAGER [address] [place] [address] [phone] PCP - General Family Medicine 07/11/23 Markos Burgos MD [address] [place], [place] [phone] Primary Staff Physician Cardiology 02/22/22 Regina Decker APRN.INTERNATIONAL MANAGER [address] [place] [address] Referring Transplant Center 08/05/22 Regina Decker APRN.INTERNATIONAL MANAGER [address] [place] [address] Home Care Provider Transplant Center 08/05/22 Tushar Juárez, OD [address] [place] [address] Optometry 05/27/23 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 Specialty Start Date End Date Keshav Phillips, 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 SERVICE REPRESENTATIVE.INTERNATIONAL MANAGER [address] [place] [address] [phone] PCP - General Family Medicine 07/11/23 Markos Burgos MD [address] [place], [place] [phone] Primary Staff Physician Cardiology 02/22/22 Regina Decker APRN.INTERNATIONAL MANAGER [address] [place], [place] [phone] Referring Transplant Center 08/05/22 Regina Decker APRN.INTERNATIONAL MANAGER [address] [place], [place] [phone] Home Care Provider Transplant Center 08/05/22 Tushar Juárez OD [address] [place] [address] Optometry 05/27/23 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 Specialty Start Date End Date Keshav Phillips APRN.INTERNATIONAL MANAGER [facility] [place], [place] [phone] PCP - General Family Medicine 07/11/23 Markos Burgos MD [address] [place] [address] Primary Staff Physician Cardiology 02/22/22 Regina Decker APRN.INTERNATIONAL MANAGER [address] [place], [place] [phone] Referring Transplant Center 08/05/22 Regina Decker APRN.INTERNATIONAL MANAGER [address] [place] [address] Home Care Provider Transplant Center 08/05/22 Tushar Juárez OD [address] [place] [address] Optometry 05/27/23 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 Specialty Start Date End Date Keshav Phillips APRN.INTERNATIONAL MANAGER [address] [place] [address] [phone] PCP - General Family Medicine 07/11/23 Markos Burgos MD [address] [place], [place] [phone] Primary Staff Physician Cardiology 02/22/22 Regina Decker APRN.INTERNATIONAL MANAGER [address] [place] [address] Referring Transplant Center 08/05/22 Regina Decker APRN.INTERNATIONAL MANAGER [address] [place], [place] [phone] Home Care Provider Transplant Center 08/05/22 Tushar Juárez OD [address] [place] [address] Optometry 05/27/23 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 Specialty Start Date End Date Keshav Phillips APRN.INTERNATIONAL MANAGER [address] [place], [place] [phone] PCP - General Family Medicine 07/11/23 Markos Burgos MD [address] [place] [address] Primary Staff Physician Cardiology 02/22/22 Regina Decker APRN.INTERNATIONAL MANAGER [address] [place], [place] [phone] Referring Transplant Center 08/05/22 Regina Decker APRN.INTERNATIONAL MANAGER [address] [place] [address] Home Care Provider Transplant Center 08/05/22 Tushar Juárez OD [facility] [place] [address] Optometry 05/27/23 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 Specialty Start Date End Date Keshav Phillips APRN.INTERNATIONAL MANAGER [address] [place] [address] [phone] PCP - General Family Medicine 07/11/23 Markos Burgos MD [facility] [place] [address] Primary Staff Physician Cardiology 02/22/22 Regina Decker APRN.INTERNATIONAL MANAGER [address] [place] [address] Referring Transplant Center 08/05/22 Regina Decker APRN.INTERNATIONAL MANAGER [address] [place] [address] Home Care Provider Transplant Center 08/05/22 Tushar Juárez OD [address] [place] [address] Optometry 05/27/23 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 Specialty Start Date End Date Keshav Phillips APRN.INTERNATIONAL MANAGER [address] [place] [address] [phone] PCP - General Family Medicine 07/11/23 Markos Burgos MD [address] [place], [place] [phone] Primary Staff Physician Cardiology 02/22/22 Regina Decker 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 SERVICE REPRESENTATIVE.INTERNATIONAL MANAGER [address] [facility] [place] [place] [phone] Referring Transplant Center 08/05/22 Regina Decker 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 SERVICE REPRESENTATIVE.INTERNATIONAL MANAGER [address] [place], [place] [phone] Home Care Provider Transplant Center 08/05/22 Tushar Juárez OD [address] [place] [address] Optometry 05/27/23 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 Specialty Start Date End Date Keshav Phillips APRN.INTERNATIONAL MANAGER [address] [place] [address] PCP - General Family Medicine 07/11/23 Markos Burgos MD [address] [place], [place] [phone] Primary Staff Physician Cardiology 02/22/22 Regina Decker 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 SERVICE REPRESENTATIVE.INTERNATIONAL MANAGER [address] [facility] [place] [place] [phone] Referring Transplant Center 08/05/22 Regina Decker 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 SERVICE REPRESENTATIVE.INTERNATIONAL MANAGER [address] [place], [place] [phone] Home Care Provider Transplant Center 08/05/22 Tushar Juárez OD [address] [place] [address] Optometry 05/27/23 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 Specialty Start Date End Date Keshav Phillips APRN.INTERNATIONAL MANAGER [address] [place] [address] [phone] PCP - General Family Medicine 07/11/23 Markos Burgos MD [address] [place], [place] [phone] Primary Staff Physician Cardiology 02/22/22 Regina Decker APRN.INTERNATIONAL MANAGER [address] [place] [address] Referring Transplant Center 08/05/22 Regina Decker APRN.INTERNATIONAL MANAGER [address] [place] [address] Home Care Provider Transplant Center 08/05/22 Tushar Juárez, OD [address] [place] [address] Optometry 05/27/23 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 Specialty Start Date End Date Keshav Phillips APRN.INTERNATIONAL MANAGER [address] [place] [address] [phone] PCP - General Family Medicine 07/11/23 Markos Burgos MD [address] [place], [place] [phone] Primary Staff Physician Cardiology 02/22/22 Regina Decker APRN.INTERNATIONAL MANAGER [address] [place] [address] Referring Transplant Center 08/05/22 Regina Decker APRN.INTERNATIONAL MANAGER [address] [place] [address] Home Care Provider Transplant Center 08/05/22 Tushar Juárez OD [address] [place] [address] Optometry 05/27/23 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 Specialty Start Date End Date Keshav Phillips APRN.INTERNATIONAL MANAGER [address] [place] [address] [phone] PCP - General Family Medicine 07/11/23 Markos Burgos MD [address] [place] [address] Primary Staff Physician Cardiology 02/22/22 Regina Decker APRN.INTERNATIONAL MANAGER [address] [place] [address] Referring Transplant Center 08/05/22 Regina Decker APRN.INTERNATIONAL MANAGER [address] [place] [address] Home Care Provider Transplant Center 08/05/22 Tushar Juárez OD [address] [place], [place] [phone] Optometry 05/27/23 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 Specialty Start Date End Date Keshav Phillips APRN.INTERNATIONAL MANAGER [address] [place] [address] [phone] PCP - General Family Medicine 07/11/23 Markos Burgos MD [address] [place] [address] Primary Staff Physician Cardiology 02/22/22 Regina Decker 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 SERVICE REPRESENTATIVE.INTERNATIONAL MANAGER [address] [place] [address] Referring Transplant Center 08/05/22 Regina Decker 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 SERVICE REPRESENTATIVE.INTERNATIONAL MANAGER [address] [place] [address] Home Care Provider Transplant Center 08/05/22 Tushar Juráez OD [facility] [place], [place] 1886307 Optometry 05/27/23 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 Specialty Start Date End Date Keshav Phillips APRN.INTERNATIONAL MANAGER [facility] [place], [place] 064711 PCP - General Family Medicine 07/11/23 Markos Burgos MD [address] [place] [address] Primary Staff Physician Cardiology 02/22/22 Regina Decker 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 SERVICE REPRESENTATIVE.INTERNATIONAL MANAGER [address] [place] [address] Referring Transplant Center 08/05/22 Regina Decker 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 SERVICE REPRESENTATIVE.INTERNATIONAL MANAGER [address] [place] [address] Home Care Provider Transplant Center 08/05/22 Tushar Juárez OD [address] [place] [address] Optometry 05/27/23 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 Specialty Start Date End Date Keshav Phillips APRN.INTERNATIONAL MANAGER [address] [place] [address] [phone] PCP - General Family Medicine 07/11/23 Markos Burgos MD [address] [place], [place] [phone] Primary Staff Physician Cardiology 02/22/22 Regina Decker APRN.INTERNATIONAL MANAGER [address] [place], [place] [phone] Referring Transplant Center 08/05/22 Regina Decker APRN.INTERNATIONAL MANAGER [address] [place], [place] [phone] Home Care Provider Transplant Center 08/05/22 Tushar [place] [address] [place] [address] Optometry 05/27/23 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 Specialty Start Date End Date Keshav Phillips APRN.INTERNATIONAL MANAGER [address] [place] [address] [phone] PCP - General Family Medicine 07/11/23 Markos Burgos MD [address] [place] [phone] Primary Staff Physician Cardiology 02/22/22 Regina Decker APRN.INTERNATIONAL MANAGER [address] [place], [place] [phone] Referring Transplant Center 08/05/22 Regina Decker APRN.INTERNATIONAL MANAGER [address] [place], [place] [phone] Home Care Provider Transplant Center 08/05/22 Tushar Juárez OD [address] [place], [place] 7596607 Optometry 05/27/23 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 Specialty Start Date End Date Keshav Phillips APRN.INTERNATIONAL MANAGER [facility] [place], [place] [phone] PCP - General Family Medicine 07/11/23 Markos Burgos MD [address] [place], [place] [phone] Primary Staff Physician Cardiology 02/22/22 Regina Decker APRN.INTERNATIONAL MANAGER [address] [place] [address] Referring Transplant Center 08/05/22 Regina Decker APRN.INTERNATIONAL MANAGER [address] [place] [address] Home Care Provider Transplant Center 08/05/22 Tushar Juárez OD [address] [place] [address] Optometry 05/27/23 Team Status: Inactive Member Role Status Dates No Primary Care Physician Primary Care Provider Active Start: May 07, 2024 End: May 07, 2024 Dr. Leila Veras MD Attending Provider Active Start: May 07, 2024 End: May 07, 2024 Dr. Leila Veras MD Referring Provider Active Start: May 07, 2024 End: May 07, 2024 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 Specialty Start Date End Date Keshav Phillips APRN.INTERNATIONAL MANAGER [address] [place] [address] [phone] PCP - General Family Medicine 07/11/23 Markos Burgos MD [address] [place], [place] [phone] Primary Staff Physician Cardiology 02/22/22 Regina Decker APRN.INTERNATIONAL MANAGER [address] [place], [place] [phone] Referring Transplant Center 08/05/22 Regina Decker APRN.INTERNATIONAL MANAGER [address] [place], [place] [phone] Home Care Provider Transplant Center 08/05/22 Tushar Juárez OD [address] [place] [address] Optometry 05/27/23 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 Specialty Start Date End Date Keshav Phillips, 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 SERVICE REPRESENTATIVE.INTERNATIONAL MANAGER [address] [place] [address] [phone] PCP - General Family Medicine 07/11/23 Markos Burgos MD [address] [place], [place] [phone] Primary Staff Physician Cardiology 02/22/22 Regina Decker APRN.INTERNATIONAL MANAGER [address] [place] [address] Referring Transplant Center 08/05/22 Regina Decker APRN.INTERNATIONAL MANAGER [address] [place] [address] Home Care Provider Transplant Center 08/05/22 Tushar Juárez OD [address] [place] [address] 9[address]28 Optometry 05/27/23 Shower Doors And Panels Fabricator Relationship Specialty Start Date End Date Keshav Phillips APRN.INTERNATIONAL MANAGER [address] [place] [address] [phone] PCP - General Family Medicine 07/11/23 Regina Decker APRN.INTERNATIONAL MANAGER [address] [place] [address] Referring Transplant Center 08/05/22 Regina Decker APRN.INTERNATIONAL MANAGER [address] [place] [address] Home Care Provider Transplant Center 08/05/22 Tushar Juárez OD [address] [place] [address] 01068 Optometry 05/27/23 Shower Doors And Panels Fabricator Relationship Specialty Start Date End Date Keshav Phillips APRN.INTERNATIONAL MANAGER [address] [place] [address] [phone] PCP - General Family Medicine 07/11/23 Regina Decker APRN.INTERNATIONAL MANAGER [address] [place] [address] Referring Transplant Center 08/05/22 Regina Decker APRN.INTERNATIONAL MANAGER [address] [place] [address] Home Care Provider Transplant Center 08/05/22 Tushar Juárez OD [address] [place] [address]608 Optometry 05/27/23 Shower Doors And Panels Fabricator Relationship Specialty Start Date End Date Keshav Phillips APRN.INTERNATIONAL MANAGER [address] [place] [address] [phone] PCP - General Family Medicine 07/11/23 Regina Decker APRN.INTERNATIONAL MANAGER [address] [place] [address] Referring Transplant Center 08/05/22 Regina Decker APRN.INTERNATIONAL MANAGER [address] [place] [address]697 Home Care Provider Transplant Center 08/05/22 Tushar Juárez OD [address] [place] [address] 08637 Optometry 05/27/23 Shower Doors And Panels Fabricator Relationship Specialty Start Date End Date Keshav Phillips APRN.INTERNATIONAL MANAGER [address] [place] [address] 57009 PCP - General Family Medicine 07/11/23 Regina Decker APRN.INTERNATIONAL MANAGER [address] [place] [address] Referring Transplant Center 08/05/22 Regina Decker APRN.INTERNATIONAL MANAGER [address] [place] [address] Home Care Provider Transplant Center 08/05/22 Tushar [place] [address] [place] [address]396 Optometry 05/27/23 Shower Doors And Panels Fabricator Relationship Specialty Start Date End Date Keshav Phillips APRN.INTERNATIONAL MANAGER [address] [place] [address] [phone] PCP - General Family Medicine 07/11/23 Regina Decker APRN.INTERNATIONAL MANAGER [address] [place] [phone] Referring Transplant Center 08/05/22 Regina Decker APRN.INTERNATIONAL MANAGER [address] [place] [address] Home Care Provider Transplant Center 08/05/22 Tushar [place] [address] [place] [address] 42484 Optometry 05/27/23 Shower Doors And Panels Fabricator Relationship Specialty Start Date End Date Keshav Phillips APRN.INTERNATIONAL MANAGER [address] [place] [address] [phone] PCP - General Family Medicine 07/11/23 Regina Decker APRN.INTERNATIONAL MANAGER [address] [place] [address] Referring Transplant Center 08/05/22 Regina Decker APRN.INTERNATIONAL MANAGER [address] [place] [address] Home Care Provider Transplant Center 08/05/22 Tushar Juárez OD [address] [place] [address] 29421 Optometry 05/27/23 Shower Doors And Panels Fabricator Relationship Specialty Start Date End Date Keshav Phillips APRN.INTERNATIONAL MANAGER [address] [place] [address] PCP - General Family Medicine 07/11/23 Regina Decker APRN.INTERNATIONAL MANAGER [address] [place] [phone] Referring Transplant Center 08/05/22 Regina Decker APRN.INTERNATIONAL MANAGER [address] [place] [address] Home Care Provider Transplant Center 08/05/22 Tushar [place] [address] [place] [address] 69268 Optometry 05/27/23 Shower Doors And Panels Fabricator Relationship Specialty Start Date End Date Keshav Phillips APRN.INTERNATIONAL MANAGER [address] [place] [address] [phone] PCP - General Family Medicine 07/11/23 Regina Decker APRN.INTERNATIONAL MANAGER [address] [place] [phone] Referring Transplant Center 08/05/22 Regina Decker APRN.INTERNATIONAL MANAGER [address] [place] [address] Home Care Provider Transplant Center 08/05/22 Tushar Juárez OD [address] [place] [address] 0[address]12 Optometry 05/27/23 Shower Doors And Panels Fabricator Relationship Specialty Start Date End Date Keshav Phillips APRN.INTERNATIONAL MANAGER [address] [place] [address] PCP - General Family Medicine 07/11/23 Regina Decker APRN.INTERNATIONAL MANAGER [address] [place] [phone] Referring Transplant Center 08/05/22 Regina Decker APRN.INTERNATIONAL MANAGER [address] [place] [address] Home Care Provider Transplant Center 08/05/22 Tushar Juárez OD [address] [place] [address] 6[address]70 Optometry 05/27/23 Shower Doors And Panels Fabricator Relationship Specialty Start Date End Date Keshav Phillips APRN.INTERNATIONAL MANAGER [address] [place] [address] [phone] PCP - General Family Medicine 07/11/23 Regina Decker 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 SERVICE REPRESENTATIVE.INTERNATIONAL MANAGER [address] [place] [address] Referring Transplant Center 08/05/22 Regina Decker APRN.INTERNATIONAL MANAGER [address] [place] [address] Home Care Provider Transplant Center 08/05/22 Tushar Juárez, JANY [address] [place] [address] 35954 Optometry 05/27/23 Shower Doors And Panels Fabricator Relationship Specialty Start Date End Date Keshav Phillips APRN.INTERNATIONAL MANAGER [address] [place] [address] PCP - General Family Medicine 07/11/23 Regina Decker APRN.INTERNATIONAL MANAGER [address] [place] [address] Referring Transplant Center 08/05/22 Regina Decker APRN.INTERNATIONAL MANAGER [address] [place] [address] Home Care Provider Transplant Center 08/05/22 Tushar Juá[place] [address] [place] [address] 19652 Optometry 05/27/23 Shower Doors And Panels Fabricator Relationship Specialty Start Date End Date Keshav Phillips 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 SERVICE REPRESENTATIVE.INTERNATIONAL MANAGER [address] [place] [address] [phone] PCP - General Family Medicine 07/11/23 Regina Decker 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 SERVICE REPRESENTATIVE.INTERNATIONAL MANAGER [address] [place] [address] Referring Transplant Center 08/05/22 Regina Decker, 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 SERVICE REPRESENTATIVE.INTERNATIONAL MANAGER [address] [place], [place] [phone] Home Care Provider Transplant Center 08/05/22 Tushar Juárez OD [address] [place] [address] Optometry 05/27/23 Shower Doors And Panels Fabricator Relationship Specialty Start Date End Date Keshav Phillips, 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 SERVICE REPRESENTATIVE.INTERNATIONAL MANAGER [address] [place] [address] [phone] PCP - General Family Medicine 07/11/23 Regina Decker, 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 SERVICE REPRESENTATIVE.INTERNATIONAL MANAGER [address] [place] [address] Referring Transplant Center 08/05/22 Regina Decker, 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 SERVICE REPRESENTATIVE.INTERNATIONAL MANAGER [address] [place] [address] Home Care Provider Transplant Center 08/05/22 Tushar Juárez OD [address] [place] [address] Optometry 05/27/23 Shower Doors And Panels Fabricator Relationship Specialty Start Date End Date Keshav Phillips, 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 SERVICE REPRESENTATIVE.INTERNATIONAL MANAGER [address] [place] [address] [phone] PCP - General Family Medicine 07/11/23 Regina Decker, 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 SERVICE REPRESENTATIVE.INTERNATIONAL MANAGER [address] [place], [place] [phone] Referring Transplant Center 08/05/22 Regina Decker 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 SERVICE REPRESENTATIVE.INTERNATIONAL MANAGER [address] [place] [address] Home Care Provider Transplant Center 08/05/22 Tushar Juárez OD [address] [place] [address] 15281 Optometry 05/27/23 Shower Doors And Panels Fabricator Relationship Specialty Start Date End Date Keshav Phillips, 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 SERVICE REPRESENTATIVE.INTERNATIONAL MANAGER [address] [place] [address] 51873 PCP - General Family Medicine 07/11/23 Regina Decker 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 SERVICE REPRESENTATIVE.INTERNATIONAL MANAGER [address] [place] [address] Referring Transplant Center 08/05/22 Regina Decker, 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 SERVICE REPRESENTATIVE.INTERNATIONAL MANAGER [address] [place] [address] Home Care Provider Transplant Center 08/05/22 Tushar [place] [address] [place] [address] 30163 Optometry 05/27/23 Shower Doors And Panels Fabricator Relationship Specialty Start Date End Date Keshav Phillips, 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 SERVICE REPRESENTATIVE.INTERNATIONAL MANAGER [address] [place] [address] [phone] PCP - General Family Medicine 07/11/23 Regina Decker, 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 SERVICE REPRESENTATIVE.INTERNATIONAL MANAGER [address] [place] [address] Referring Transplant Center 08/05/22 Regina Decker APRN.INTERNATIONAL MANAGER [address] [place] [address] Home Care Provider Transplant Center 08/05/22 Tushar Juárez OD [facility] [place] [address] Optometry 05/27/23 Team Status: Active Member Role/Relationship Status Dates Dr. Aisha Erazo MD Family Provider Active No Primary Care Physician Primary Care Provider Active Team Status: Inactive Member Role/Relationship Status Dates No Primary Care Physician Primary Care Provider Active Start: September 27, 2024 End: September 27, 2024 No Primary Care Physician Referring Provider Active Start: September 27, 2024 End: September 27, 2024 Fara Lozoya DIALYSIS SOCIAL WORKER, DIALYSIS SOCIAL WORKER-C Attending Provider Active Start: September 27, 2024 End: September 27, 2024 Shower Doors And Panels Fabricator Relationship Specialty Start Date End Date Keshav Phillips APRN.INTERNATIONAL MANAGER [address] [place] [address] [phone] PCP - General Family Medicine 07/11/23 Regina Decker APRN.INTERNATIONAL MANAGER [address] [place] [address] Referring Transplant Center 08/05/22 Regina Decker APRN.INTERNATIONAL MANAGER [address] [place] [address] Home Care Provider Transplant Center 08/05/22 Tushar Juárez OD [facility] [place] [address] Optometry 05/27/23 Shower Doors And Panels Fabricator Relationship Specialty Start Date End Date Keshav Phillips APRN.INTERNATIONAL MANAGER [address] [place] [address] 53042 PCP - General Family Medicine 07/11/23 Regina Decker APRN.INTERNATIONAL MANAGER [facility] [place] [address] Referring Transplant Center 08/05/22 Regina Decker APRN.INTERNATIONAL MANAGER [facility] [place] [address] Home Care Provider Transplant Center 08/05/22 Tushar Juárez OD [address] [place] [address] [phone] Optometry 05/27/23 Shower Doors And Panels Fabricator Relationship Specialty Start Date End Date Keshav Phillips APRN.INTERNATIONAL MANAGER [address] [place] [address] [phone] PCP - General Family Medicine 07/11/23 Regina Decker APRN.INTERNATIONAL MANAGER [facility] [place] [address] Referring Transplant Center 08/05/22 Regina Decker APRN.INTERNATIONAL MANAGER [address] [place] [address] Home Care Provider Transplant Center 08/05/22 Tushar Juárez OD [address] [place] [address] [phone] Optometry 05/27/23 Shower Doors And Panels Fabricator Relationship Specialty Start Date End Date Keshav Phillips APRN.INTERNATIONAL MANAGER [address] [place] [address] [phone] PCP - General Family Medicine 07/11/23 Regina Decker APRN.INTERNATIONAL MANAGER [address] [place], [place] [phone] Referring Transplant Center 08/05/22 Regina Decker APRN.INTERNATIONAL MANAGER [address] [place], [place] [phone] Home Care Provider Transplant Center 08/05/22 Tushar Juárez OD [address] [place] [address] Optometry 05/27/23 Shower Doors And Panels Fabricator Relationship Specialty Start Date End Date Keshav Phillips APRN.INTERNATIONAL MANAGER [address] [place] [address] [phone] PCP - General Family Medicine 07/11/23 Regina Decker APRN.INTERNATIONAL MANAGER [address] [place] [address] Referring Transplant Center 08/05/22 Regina Decker APRN.INTERNATIONAL MANAGER [address] [place] [address] Home Care Provider Transplant Center 08/05/22 Tushar Juárez OD [address] [place] [address] Optometry 05/27/23 Team Status: Active Member Role/Relationship Status Dates Keshav Phillips NP-Felipe Primary Care Provider Active Team Status: Inactive Member Role/Relationship Status Dates Fara Lozoya NP, DIALYSIS SOCIAL WORKER-C Attending Provider Active Start: October 09, 2024 End: October 09, 2024 Fara Lozoya DIALYSIS SOCIAL WORKER, DIALYSIS SOCIAL WORKER-C Referring Provider Active Start: October 09, 2024 End: October 09, 2024 ANAI Hurd Primary Care Provider Active Start: October 09, 2024 End: October 09, 2024 Shower Doors And Panels Fabricator Relationship Specialty Start Date End Date Keshav Phillips APRN.INTERNATIONAL MANAGER [address] [place] [address] PCP - General Family Medicine 07/11/23 Regina Decker APRN.INTERNATIONAL MANAGER [address] [place] [address] Referring Transplant Center 08/05/22 Regina Decker APRN.INTERNATIONAL MANAGER [address] [place] [address] Home Care Provider Transplant Center 08/05/22 Tushar Juárez OD [address] [place] [address] Optometry 05/27/23 Shower Doors And Panels Fabricator Relationship Specialty Start Date End Date Shukri Juárez MD [address] [place] [id number] PCP - General 11/07/18 Goals (unrecognized section and content) Goals may be documented in a n alternate sectionGoals may be documented in an alternate sectionGoals may be documented in an alternate sectionGoals may be documented in an alternate sectionGoals may be documented in an alternate sectionGoals may be documented in an alternate section Continuous Active and Recently Administ ered Medications (unrecognized section and content) Medication Order 09/01/2022 09/02/2022 09/03/2022 NaCl 0.9% iv infusion 5-30 mL/hr, INTRAVENOUS, CONTINUOUS, Starting on Tue09/03/22 at 0830, Until 09/04/22 at 0303, Preprocedure 0830 (Due) PRN Medication Order 09/01/2022 09/02/2022 09/03/2022 albuterol 2.5 mg /3 mL (0.083 %) 2.5 mg (PROVENTIL) 2.5 mg, INHALATION, NEEDED, 1 dose, Starting on 09/03/22 at 0807, Until 09/04/22 at 0303, wheezing/shortness of breath, Preprocedure Scheduled Medication Order 04/26/2023 04/27/2023 04/28/2023 ketorolac (Acular) 0.5 % ophthalmic solution 1 drop (COMPLETED) 1 drop, Right Eye, Every 5 min, First dose on Nohemy 04/28/23 at 0645, For 4 doses, Preprocedure 0626 (Given - Provid er: Francoise Traore RN)0636 (Given - Provider: Francoise Traore RN)0704 (Given - Provider: Francoise Traore RN)0709 (Given - Provider: Francoise Traore RN) lidocaine 1%-phenylephrine 1.5% intravitreal injection 2 mL 2 mL, intravitreal, Once, On Nohemy 04/28/23 at 0915, For 1 dose, Intraprocedure 0915 (Due) lubricating eye drops ophthalmic solution 1 drop (COMPLETED) 1 drop, Right Eye, Every 5 min, First dose on Nohemy 04/28/23 at 0645, For 4 doses, Preprocedure 0626 (Given - Provid er: Francoise Traore RN)0636 (Given - Provider: Francoise Traore RN)0704 (Given - Provider: Francoise Traore RN)0709 (Given - Provider: Francoise Traore RN) midazolam (Versed) injection 1 mg (COMPLETED) 1 mg, intravenous, Once, On Nohemy 04/28/23 at 0645, For 1 dose, Preprocedure 0705 (Given - Provid er: Francoise Traore RN) moxifloxacin (Vigamox) 1.5 mg/1 mL (0.15%) injection 1.5 mg 1.5 mg, Right Eye, Once, On Nohemy 04/28/23 at 0915, For 1 dose, Intraprocedure 0915 (Due) ondansetron (Zofran) injection 4 mg (COMPLETED) 4 mg, intravenous, Once, On Nohemy 04/28/23 at 0645, For 1 dose, Preprocedure, When administering via IV Push, administer over 3-5 minutes. 0644 (Given - Provid er: Francoise Traore RN) phenylephrine-tropicamide 10 %-1 % ophthalmic solution 1 drop (COMPLETED) 1 drop, Right Eye, Every 5 min, First dose on Nohemy 04/28/23 at 0645, For 4 doses, Preprocedure 0626 (Given - Provid er: Francoise Traore RN)0636 (Given - Provider: Francoise Traore RN)0704 (Given - Provider: Francoise Traore RN)0709 (Given - Provider: Francoise Traore RN) povidone-iodine 5 % ophthalmic solution (COMPLETED) Right Eye, Once, On Nohemy 04/28/23 at 0645, For 1 dose, Preprocedure 0625 (Given - Provid er: Francoise Traore RN) prednisoLONE acetate (Pred-Forte) 1 % ophthalmic suspension 1 drop 1 drop, Right Eye, Once, On Nohemy 04/28/23 at 0915, For 1 dose, Intraprocedure 0915 (Due) tetracaine (PF) 0.5 % ophthalmic solution 1 drop (COMPLETED) 1 drop, Right Eye, Once, On Nohemy 04/28/23 at 0645, For 1 dose, Preprocedure 0626 (Given - Provid er: Francoise Traore RN) Continuous Medication Order 04/26/2023 04/27/2023 04/28/2023 lactated Ringer's infusion 50 mL/hr, intravenous, Continuous, Starting on Nohemy 04/28/23 at 0645 0637 (New Bag - Prov ider: Francoise Traore RN)0729 (Continued by Anesthesia - Provider: Aisha Salazar DO)0755 (Anesthesia Volume Adjustment - Provider: Aisha Salazar DO)0805 (Stopped - Provider: Paty Lara RN) PRN Medication Order 04/26/2023 04/27/2023 04/28/2023 lidocaine 1%-phenylephrine 1.5% intravitreal injection (CANCELED) As needed, Starting on Nohemy 04/28/23 at 0744, Intraprocedure 0744 (Given - Provid er: Evan May MD) Scheduled Medication Order 05/24/2023 05/25/2023 05/26/2023 ketorolac (Acular) 0.5 % ophthalmic solution 1 drop 1 drop, Left Eye, Every 5 min, First dose on Nohemy 05/26/23 at 0800, For 4 doses, Preprocedure 0752 (Given - Provid er: Shiloh Dobson RN)0800 (Given - Provider: Shiloh Dobson RN)0808 (Given - Provider: Shiloh Dobson RN)0819 (Given - Provider: Shiloh Dobson RN) lidocaine 1%-phenylephrine 1.5% intravitreal injection 2 mL 2 mL, intravitreal, Once, On Nohemy 05/26/23 at 1445, For 1 dose, Intraprocedure, To be given intracameral 1445 (Due) lubricating eye drops ophthalmic solution 1 drop (COMPLETED) 1 drop, Left Eye, Every 5 min, First dose on Nohemy 05/26/23 at 0800, For 4 doses, Preprocedure 0753 (Given - Provid er: Shiloh Dobson RN)0801 (Given - Provider: Shiloh Dobson RN)0808 (Given - Provider: Shiloh Dobson RN)0820 (Given - Provider: Shiloh Dobson RN) moxifloxacin (Vigamox) 1.5 mg/1 mL (0.15%) injection 1.5 mg 1.5 mg, Left Eye, Once, On Nohemy 05/26/23 at 1445, For 1 dose, Intraprocedure 1445 (Due) phenylephrine-tropicamide 10 %-1 % ophthalmic solution 1 drop 1 drop, Left Eye, Every 5 min, First dose on Nohemy 05/26/23 at 0800, For 4 doses, Preprocedure 0752 (Given - Provid er: Shiloh Dobson RN)0801 (Given - Provider: Shiloh Dobson RN)0807 (Given - Provider: Shiloh Dobson RN)0819 (Given - Provider: Shiloh Dobson RN) povidone-iodine 5 % ophthalmic solution (COMPLETED) Left Eye, Once, On Nohemy 05/26/23 at 0800, For 1 dose, Preprocedure 0800 (Given - Provid er: Shiloh Dobson RN) prednisoLONE acetate (Pred-Forte) 1 % ophthalmic suspension 1 drop 1 drop, Left Eye, Once, On Nohemy 05/26/23 at 1445, For 1 dose, Intraprocedure 1445 (Due) tetracaine (PF) 0.5 % ophthalmic solution 1 drop (COMPLETED) 1 drop, Left Eye, Once, On Nohemy 05/26/23 at 0800, For 1 dose, Preprocedure 0747 (Given - Provid er: Shiloh Dobson RN) Continuous Medication Order 05/24/2023 05/25/2023 05/26/2023 lactated Ringer's infusion 100 mL/hr, intravenous, Continuous, Starting on Nohemy 05/26/23 at 0830, Preprocedure 0810 (New Bag - Prov ider: Shiloh Dobson RN)1304 (Continued by Anesthesia - Provider: Conchita Bronson MD)1335 (Stopped - Provider: Ashley Pinzon RN - Comment: stopped when iv dcd.) PRN Medication Order 05/24/2023 05/25/2023 05/26/2023 midazolam (Versed) injection 2 mg (COMPLETED) 2 mg, intravenous, Once as needed, anxiety, Starting on Nohemy 05/26/23 at 0810, For 1 dose, Preprocedure 0836 (Given - Provid er: Shiloh Dobson RN) Continuous Medication Order 07/19/2023 07/20/2023 07/21/2023 NaCl 0.9% iv infusion 5-30 mL/hr, INTRAVENOUS, CONTINUOUS, Starting on Nohemy 07/21/23 at 1130, Until Tue07/22/23 at 0303, Preprocedure 1130 (Due) PRN Medication Order 07/19/2023 07/20/2023 07/21/2023 albuterol 2.5 mg /3 mL (0.083 %) 2.5 mg (PROVENTIL) 2.5 mg, INHALATION, NEEDED, 1 dose, Starting on Nohemy 07/21/23 at 1113, Until Tue07/22/23 at 0303, wheezing/shortness of breath, Preprocedure Active Administered Medications - up to 3 most recent administrations Administered Medications (un recognized section and content) Medication Order MAR Action Action Date Dose Rate Site PHENYLephrine 2.5 % 1 Drop (AK-DILATE, CHARLIE-SYNEPHRINE) 1 Drop, BOTH EYES, DIRECTED, Starting on Tue04/11/23 at 1330, Until Tue04/12/23 at 0129, Administer for dilation PROTECT FROM LIGHT Given 04/11/2023 1:30 PM EST 1 Drop proparacaine 0.5 % 1 Drop (ALCAINE) 1 Drop, BOTH EYES, DIRECTED, Starting on Tue04/11/23 at 1330, Until Tue04/12/23 at 0129, Administer for pneumo tonometry, tonopen tonometry, or pachymetry. In the event of a proparacaine shortage, administer tetracaine 0.5% ophthalmic drops 1 drop in the left eye as directed for pneumo tonometry, tonopen tonometry, or pachymetry Given 04/11/2023 1:30 PM EST 1 Drop tropicamide 1 % 1 Drop (MYDRIACYL) 1 Drop, BOTH EYES, DIRECTED, Starting on Tue04/11/23 at 1330, Until Tue04/12/23 at 0129, Administer for dilation Given 04/11/2023 1:30 PM EST 1 Drop Active Administered Medications - up to 3 most recent administrations Medication Order MAR Action Action Date Dose Rate Site proparacaine 0.5 % 1 Drop (ALCAINE) 1 Drop, BOTH EYES, DIRECTED, Starting on Tue04/29/23 at 1330, Until Tue04/30/23 at 0129, Administer for pneumo tonometry, tonopen tonometry, or pachymetry. In the event of a proparacaine shortage, administer tetracaine 0.5% ophthalmic drops 1 drop in the left eye as directed for pneumo tonometry, tonopen tonometry, or pachymetry Given 04/29/2023 1:30 PM EDT 1 Drop FOR RECORDS PERTAINING TO PATIENTS WHO ARE OR HAVE BEEN ENROLLED IN A CHEMICAL DEPENDENCY/SUBSTANCEABUSE PROGRAM, SOME INFORMATION MAY BE OMITTED. This clinical summary was aggregated from multiple sources. Caution should be exercised in using it in the provision of clinical care. This summary normalizes information from multiple sources, and as a consequence, information in this document may materially change the coding, format and clinical context of patient data. In addition, data may be omitted in some cases. CLINICAL DECISIONS SHOULD BE BASED ON THE PRIMARY CLINICAL RECORDS. [facility] [employer] [facility]. provides no warranty or guarantee of the accuracy or completeness of information in this document.
== END | disposition home or self-care (01) ==
LOC: SL 19:52
PROVIDERS: PCP Nurse Practitioner Family; Referring Provider Nurse Practitioner Acute Care; Visit Provider Nurse Practitioner Acute Care
DX: G47.31 Primary central sleep apnea (principal)
CPT/HCPCS: 95811

== ENCOUNTER → 2025-01-16 | Outpatient (CLI) | payer MEDICARE, OTHER, SELFPAY | END | disposition home or self-care (01) | LOC: SL 15:15 | PROVIDERS: PCP Nurse Practitioner Family; Visit Provider Nurse Practitioner Acute Care | DX: Z46.89 Encounter for fitting and adjustment of other specified devices (principal) ==